=== PATIENT | female | born 1950 | race Two or more races ===

== ENCOUNTER → 2020-02-27 11:46 | Outpatient (BNVA) | payer MEDICARE, MEDICAID, SELFPAY | PROVIDERS: Visit Provider Nurse Practitioner Gerontology | DX: E11.65 Type 2 diabetes mellitus with hyperglycemia (principal); E11.22 Type 2 diabetes mellitus with diabetic chronic kidney disease; I12.9 Hypertensive chronic kidney disease with stage 1 through stage 4 chronic kidney disease, or unspecified chronic kidney disease; N18.30 Chronic kidney disease, stage 3 unspecified; Z79.4 Long term (current) use of insulin | CPT/HCPCS: 99213 ==

== ENCOUNTER → 2020-04-26 09:53 | Outpatient (BNVA) | payer MEDICARE, MEDICAID, SELFPAY | PROVIDERS: PCP Internal Medicine; Referring Provider Internal Medicine; Visit Provider Internal Medicine Gastroenterology | DX: Z13.89 Encounter for screening for other disorder (principal) | CPT/HCPCS: Q3014 ==

== ENCOUNTER → 2020-06-14 10:52 | Outpatient (BNVA) | payer OTHER, MEDICAID, SELFPAY | PROVIDERS: PCP Internal Medicine; Visit Provider Internal Medicine Gastroenterology | DX: Z76.89 Persons encountering health services in other specified circumstances (principal) | CPT/HCPCS: Q3014 ==

== ENCOUNTER → 2020-07-17 10:00 | Outpatient (BNVA) | payer OTHER, MEDICAID, SELFPAY | PROVIDERS: PCP Internal Medicine; Visit Provider Internal Medicine Gastroenterology ==

== ENCOUNTER → 2020-07-25 11:16 | Day surgery (SDC) | payer OTHER, MEDICAID, SELFPAY ==
[2020-07-25 11:45] VITALS: BMI 37.8
--- NOTE | 2020-07-25 12:05 | PC.NURSE ---
History obtained from patient with use of stand grinder- patient stated last dose of aspirin was yesterday which was thursday07/25/20 and last dose of Brillanta was thursday which would be 07/23/20. Questioned patient further about doctor instructions to hold ASA for 3 days prior and Brillanta 5 days prior, patient then stated I had both on thursday. investment manager Mary Jane Watters called and let the MD know. Per MD patient will need to be rescheduled due to medications not being held for the required time. 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
[2020-07-25 12:06] LABS: MANUAL DIFF FLAG NO
[2020-07-25 12:08] LABS: Glucose, Whole Blood 258 mg/dL (60-115)
[2020-07-25 12:09] LABS: Basophils Absolute Auto 0.1 X10*3/uL (0.0-0.2); Basophils Percent Auto 0.6 % (0-2); Eosinophils Absolute Auto 0.1 X10*3/uL (0.0-0.4); Eosinophils Percent Auto 1.6 % (0-4); Hematocrit 26.6 % (37-47); Hemoglobin 8.3 g/dl (12.0-16.0); Imm Gran Abs Auto 0.05 X10*3/uL (0.00-0.03); Imm Gran Pct Auto 0.6 % (0.0-0.4); Lymphocytes Absolute Auto 2.1 X10*3/uL (1.2-4.9); Lymphocytes Percent Auto 23.8 % (20-40); Mean Corpuscular HGB Conc 31.2 g/dl (31.0-35.0); Mean Corpuscular Hemoglobin 28.3 pg (27.0-33.0); Mean Corpuscular Volume 90.8 fL (80-98); Mean Platelet Volume 11.3 fL (9.4-12.3); Monocytes Absolute Auto 0.7 X10*3/uL (0.1-1.2); Monocytes Percent Auto 8.3 % (2-11); Neutrophils Absolute Auto 5.6 X10*3/uL (2.0-8.3); Neutrophils Percent Auto 65.1 % (45-73); Platelet Count 311 X10*3/uL (160-400); Red Blood Count 2.93 X10*6/uL (4.20-5.50); Red Cell Distribution Width 21.2 % (11.0-16.0); White Blood Count 8.7 X10*3/uL (4.8-10.8)
[2020-07-25 12:18] LABS: INTERNATIONAL NORM RATIO 1.2 (0.9-1.1); Prothrombin Time 13.9 SEC (10.8-13.0)
[2020-07-25 12:21] LABS: Partial Thromboplastin Time 37.8 SEC (24.1-38.0)
== END ==
PROVIDERS: Radiology Diagnostic Radiology; Visit Provider Radiology Diagnostic Radiology
DX: R79.89 Other specified abnormal findings of blood chemistry (principal); Z53.9 Procedure and treatment not carried out, unspecified reason; E11.22 Type 2 diabetes mellitus with diabetic chronic kidney disease; I12.9 Hypertensive chronic kidney disease with stage 1 through stage 4 chronic kidney disease, or unspecified chronic kidney disease; N18.9 Chronic kidney disease, unspecified; Z79.4 Long term (current) use of insulin; Z79.899 Other long term (current) drug therapy
CPT/HCPCS: 36415; 82947; 85025; 85610; 85730

== ENCOUNTER → 2020-11-16 07:33 | Outpatient (BNVA) | payer OTHER, MEDICAID, SELFPAY | PROVIDERS: PCP Internal Medicine; Visit Provider Nurse Practitioner Gerontology | DX: E11.65 Type 2 diabetes mellitus with hyperglycemia (principal); E11.22 Type 2 diabetes mellitus with diabetic chronic kidney disease; I12.9 Hypertensive chronic kidney disease with stage 1 through stage 4 chronic kidney disease, or unspecified chronic kidney disease; N18.30 Chronic kidney disease, stage 3 unspecified; E78.5 Hyperlipidemia, unspecified; E66.9 Obesity, unspecified; Z79.4 Long term (current) use of insulin | CPT/HCPCS: Q3014 ==

== ENCOUNTER 2021-02-05 12:02 | Emergency (ER) | payer OTHER, MEDICAID, SELFPAY ==
--- NOTE | ~2021-02-05 | XR_ITS ---
EXAMINATION: XR CHEST CLINICAL INFORMATION: Cough, HIV positive, rule out pneumonia. COMPARISON: Chest radiograph dated from 10/20/2018. TECHNIQUE: 2 views of the chest were obtained. FINDINGS: Unchanged appearance of the cardiomediastinal silhouette. There are decreased lung volumes with diffuse bronchovascular crowding and similar interstitial prominence. No focal airspace opacity, pleural effusions or pneumothorax. No acute osseous abnormalities. XR/XR chest 2V IMPRESSION: Interstitial prominence appears not significantly changed since 2019. No focal consolidation, pleural effusion or pneumothorax.
--- NOTE | ~2021-02-05 | XR_ITS ---
EXAMINATION: XR HIP, LEFT CLINICAL INFORMATION: Pain post fall COMPARISON: None TECHNIQUE: Two views of the left hip and one view of the pelvis. FINDINGS: Bone alignment is normal. No fracture or dislocation is seen. There is joint space narrowing at the hip joint. Bones of the pelvis are unremarkable. There are degenerative changes visualized lower lumbar spine. There is soft tissue arterial calcification. XR/XR hip LT w PEL1V IMPRESSION: No fracture or dislocation. Bilateral hip joint space narrowing.
[2021-02-05 12:11] VITALS: BP 131/87; BP 141/51; PULSE 62; PULSE 70; RESP 18; TEMP 37; O2SAT 100; O2SAT 97; BMI 24.6
--- NOTE | 2021-02-05 12:11 | ED_ITS ---
HPI - General Adult General Chief complaint: General Medical Stated complaint: HIGH BS FROM CLINIC, 500 @ THIS TIME PER EMS Time Seen by Provider: 02/05/21 12:06 Source: patient and EMS Mode of arrival: EMS Limitations: language barrier and other History of Present Illness HPI narrative: 70-year-old female with a history of memory issues, poorly controlled diabetes on insulin, CKD, hypertension, hyperlipidemia, GERD, obesity, cirrhosis who presents to the ER from PCP office with high blood sugar of greater than 500. Patient is a very poor historian and has aids and board filler helping to care for her throughout the day. She lives home alone. She only takes her medications when they are administered because she forgets and she only has aids for certain hours. It is unknown when she last took any insulin. She admits to eating a lot of sweets and drinking a lot of soda. She also reports a fall yesterday. She slipped and fell onto her left side. She reports some left hip pain today but is ambulatory. [place] and apparently left AMA per documentation. Her visiting nurse reports she burned her food when she tries to cook for herself because she forgets she is cooking and there was trash all over her apartment. MD complaint: Hyperglycemia Onset (ago): unknown Radiation: non-radiation Severity: moderate Pain Consistency: intermittent Relieving factors: none Exacerbating factors: none Associated symptoms: denies other symptoms Treatments prior to arrival: other (SC insulin) Related Data Home Medications Medication Instructions Recorded Confirmed albuterol sulfate 90 mcg/actuation 2 puff INHALATION Q6H PRN 02/27/20 02/05/21 aerosol inhaler (Ventolin HFA) amlodipine 2.5 mg tablet 2.5 mg PO DAILY 02/27/20 02/05/21 aspirin 81 mg tablet,delayed 81 mg PO DAILY 02/27/20 02/05/21 release (Adult Aspirin Regimen) cholecalciferol (vitamin D3) 50 2,000 unit PO DAILY cap 02/27/20 02/05/21 mcg (2,000 unit) capsule famotidine 20 mg tablet 20 mg PO DAILY 02/27/20 02/05/21 metoprolol tartrate 25 mg tablet 12.5 mg PO DAILY 02/27/20 02/05/21 ticagrelor 90 mg tablet (Brilinta) 90 mg PO BID 02/27/20 02/05/21 trazodone 50 mg tablet 25 mg PO BEDTIME PRN 02/27/20 02/05/21 cetirizine 10 mg capsule (All Day 10 mg PO BEDTIME cap 11/16/20 02/05/21 Allergy (cetirizine)) melatonin 5 mg capsule 5 mg PO BEDTIME PRN cap 11/16/20 02/05/21 bisacodyl 5 mg tablet,delayed 1 tab PO DAILY PRN 02/05/21 02/05/21 release calcium polycarbophil 625 mg 1 tab PO QAM 02/05/21 02/05/21 tablet (Fiber (calcium polycarbophil)) enalapril maleate 5 mg tablet 1 tab PO QPM 02/05/21 02/05/21 escitalopram oxalate 5 mg tablet 1 tab PO QAM 02/05/21 02/05/21 ferrous fumarate 324 mg (106 mg 1 tab PO QAM 02/05/21 02/05/21 iron) tablet (Ferrocite) fluticasone propionate 44 2 puff PO BID 02/05/21 02/05/21 mcg/actuation HFA aerosol inhaler (Flovent HFA) insulin glargine U-300 conc 300 30 unit SUBCUT DAILY 02/05/21 02/05/21 unit/mL (3 mL) subcutaneous pen (Toujeo Max U-300 SoloStar) rifaximin 550 mg tablet (Xifaxan) 1 tab PO BID 02/05/21 02/05/21 Previous Rx's Medication Instructions Recorded blood sugar diagnostic (OneTouch #150 ea 02/24/20 Ultra Blue Test Strip) flash glucose scanning reader #1 ea 11/16/20 (FreeStyle Fatmata 2 [place]) flash glucose sensor (FreeStyle #2 ea 11/16/20 Fatmata 2 Sensor) insulin lispro 100 unit/mL 14 - 20 unit SUBCUT TID 90 Days 11/16/20 subcutaneous pen (Humalog KwikPen #60 ml (U-100) Insulin) Allergies Allergy/AdvReac Type Severity Reaction Status Date / Time No Known Allergies Allergy Verified 11/16/20 07:39 [No Known Allergies*] Review of Systems Review of Systems: Constitutional: No Fever, No Chills ENT/Mouth: No sore throat, No Rhinorrhea, No Swallowing Difficulty Cardiovascular: No Chest Pain, No SOB, No Orthopnea, No Edema Respiratory: No Cough, No Sputum, No Wheezing, No dyspnea Gastrointestinal: No Nausea, No Vomiting, No Diarrhea, No abdominal Pain Genitourinary: No Dysuria, No Urinary Frequency, No Hematuria Musculoskeletal: + joint pain, + Myalgias Skin: No Skin Lesions, No rash Neuro: + Weakness, No Numbness, No Dizziness, No Headache Psych: No Anxiety/Panic, No Depression Heme/Lymph: No Bruising, No Lymphadenopathy Endocrine: No Polyuria, No Polydipsia PMF Past Medical History Medical History Constipated Depression Diabetes mellitus with hyperglycemia Essential hypertension Hyperlipidemia LDL goal <100 Hypertriglyceridemia Obesity (BMI 30-39.9) Pancreatitis Type 2 diabetes mellitus with chronic kidney disease Type 2 diabetes mellitus with hyperglycemia Vitamin D deficiency Surgical History History of appendectomy History of esophagogastroduodenoscopy (EGD) Hx of cholecystectomy Hx of colonoscopy Hx of heart bypass surgery Family History Family History Father No problems noted. 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 Oriented X2. No acute distress. Eyes: Pupils equal, round and reactive to light. ENT: Pharynx normal. Neck: Normal inspection. Neck supple. CVS: Normal heart rate and rhythm. Pulses normal. Respiratory: No respiratory distress. Breath sounds normal. Abdomen: Soft and nontender. +BS x4 Skin: Skin warm and dry. Normal skin color. Normal skin turgor. No rashes. Extremities: No lower extremity edema. Left lateral hip and femur tenderness, no deformity, no ecchymosis, normal ROM Neuro: Oriented X 2. No motor deficit. No sensory deficit. Course Course Course Narrative: 70-year-old female presenting with hyperglycemia and left hip pain status post fall yesterday. She offers no complaints at this time. Glucose for AMS was 500. 10 units of subcu insulin was given at the PCP office. She is not tachycardic, not tachypneic and is awake and alert. Doubt DKA. Will get basic lab workup. Additional subcu insulin and IV fluids have been ordered. Anticipate she will require additional services at home vs short-term rehab versus long-term care given her inability to care for herself. Reevaluation(s) Reevaluation #1: Patient not in DKA, no anion gap. Glucose is slowly improving, now down into the 200s. She has some mild pseudohyponatremia from her hyper glycemia. She also has underlying CKD which appears to be near its baseline. Her H&H is slightly lower than her baseline with a hemoglobin of 7.3 from 8.3 back in July of 2020. She denies any signs or symptoms of GI bleeding rectal exam reveals hard light brown stool in the rectal vault. This was noted to be heme-positive. This does not seem to be an active GI bleed. She has underlying CKD and cirrhosis with likely anemia of chronic disease. Will plan for PT and Case Management evaluation. She does not appear to be safe at home with her current level of care. Reevaluation #2: Physical therapy evaluated the patient is recommending [facility] short-term rehab. Case was discussed with the case resolution specialist who will evaluate the patient for placement. Physician observation started at 5:50pm. Patient placed in physician observation because patient is awaiting case management evaluation for short term rehab placement. At the time observation was started patient's vital signs were stable. Patient is alert and oriented to person and place. Neuro exam is non- focal. CV: RRR and lungs are clear. Will continue to monitor. Medical Decision Making Lab Data Result diagrams: 02/05/21 12:41 02/05/21 12:41 Labs: Lab Results 02/05/21 02/05/21 02/05/21 Range/Units 12:41 12:41 12:41 WBC 8.1 (4.8-10.8) X10*3/uL RBC 2.51 L (4.20-5.50) X10*6/uL Hgb 7.3 L (12.0-16.0) g/dl Hct 22.4 L (37-47) % MCV 89.2 (80-98) fL MCH 29.1 (27.0-33.0) pg MCHC 32.6 (31.0-35.0) g/dl RDW 14.3 (11.0-16.0) % Plt Count 203 D (160-400) X10*3/uL MPV 10.9 (9.4-12.3) fL Immature Gran % (Auto) 0.4 (0.0-0.4) % Neut % (Auto) 58.8 (45-73) % Lymph % (Auto) 30.0 (20-40) % [place] % (Auto) 8.2 (2-11) % Eos % (Auto) 2.1 (0-4) % Baso % (Auto) 0.5 (0-2) % Lymph # (Auto) 2.4 (1.2-4.9) X10*3/uL [place] # (Auto) 0.7 (0.1-1.2) X10*3/uL Eos # (Auto) 0.2 (0.0-0.4) X10*3/uL Baso # (Auto) 0.0 (0.0-0.2) X10*3/uL Abs Immat Gran (auto) 0.03 (0.00-0.03) X10*3/uL Absolute Neuts (auto) 4.8 (2.0-8.3) X10*3/uL Absolute Nucleated RBC 0.000 (0.0-0.012) X10*3/uL Nucleated RBC % (auto) 0.0 (0.0-0.2) /100WBC Sodium 131 L (135-145) mmol/L Potassium 4.5 (3.3-5.1) mmol/L Chloride 106 (96-108) mmol/L Carbon Dioxide 18 L (22-29) mmol/L Anion Gap 12 (12-20) BUN 42 H (9-16) mg/dL Creatinine 1.50 H (0.5-1.4) mg/dL Estim Creat Clear Calc 26.4 Estimated GFR 34 POC Glucose (60-115) mg/dL Random Glucose 418 H* (60-115) mg/dL Estimat Average Glucose mg/dL Hemoglobin A1c % % Calcium 8.3 L (8.4-10.2) mg/dL Magnesium 2.0 (1.6-2.6) mg/dL Total Bilirubin 0.4 (0.0-1.0) mg/dL Direct Bilirubin 0.3 (0.0-0.5) mg/dL AST 86 H (5-31) U/L ALT 53 H (0-31) U/L Alkaline Phosphatase 471 H (39-117) U/L Total Protein 6.3 L (6.5-8.0) g/dL Albumin 2.9 L (3.5-5.0) g/dL Stool Occult Blood (NEGATIVE) COVID-19 (LESLY) Negative (Negative) COVID-19 Clin Com See Note 02/05/21 02/05/21 02/05/21 Range/Units 12:41 14:19 14:30 WBC (4.8-10.8) X10*3/uL RBC (4.20-5.50) X10*6/uL Hgb (12.0-16.0) g/dl Hct (37-47) % MCV (80-98) fL MCH (27.0-33.0) pg MCHC (31.0-35.0) g/dl RDW (11.0-16.0) % Plt Count (160-400) X10*3/uL MPV (9.4-12.3) fL Immature Gran % (Auto) (0.0-0.4) % Neut % (Auto) (45-73) % Lymph % (Auto) (20-40) % [place] % (Auto) (2-11) % Eos % (Auto) (0-4) % Baso % (Auto) (0-2) % Lymph # (Auto) (1.2-4.9) X10*3/uL [place] # (Auto) (0.1-1.2) X10*3/uL Eos # (Auto) (0.0-0.4) X10*3/uL Baso # (Auto) (0.0-0.2) X10*3/uL Abs Immat Gran (auto) (0.00-0.03) X10*3/uL Absolute Neuts (auto) (2.0-8.3) X10*3/uL Absolute Nucleated RBC (0.0-0.012) X10*3/uL Nucleated RBC % (auto) (0.0-0.2) /100WBC Sodium (135-145) mmol/L Potassium (3.3-5.1) mmol/L Chloride (96-108) mmol/L Carbon Dioxide (22-29) mmol/L Anion Gap (12-20) BUN (9-16) mg/dL Creatinine (0.5-1.4) mg/dL Estim Creat Clear Calc Estimated GFR POC Glucose 261 H (60-115) mg/dL Random Glucose (60-115) mg/dL Estimat Average Glucose 189 mg/dL Hemoglobin A1c % 8.2 % Calcium (8.4-10.2) mg/dL Magnesium (1.6-2.6) mg/dL Total Bilirubin (0.0-1.0) mg/dL Direct Bilirubin (0.0-0.5) mg/dL AST (5-31) U/L ALT (0-31) U/L Alkaline Phosphatase (39-117) U/L Total Protein (6.5-8.0) g/dL Albumin (3.5-5.0) g/dL Stool Occult Blood POSITIVE (NEGATIVE) COVID-19 (LESLY) (Negative) COVID-19 Clin Com 02/05/21 Range/Units 15:00 WBC (4.8-10.8) X10*3/uL RBC (4.20-5.50) X10*6/uL Hgb (12.0-16.0) g/dl Hct (37-47) % MCV (80-98) fL MCH (27.0-33.0) pg MCHC (31.0-35.0) g/dl RDW (11.0-16.0) % Plt Count (160-400) X10*3/uL MPV (9.4-12.3) fL Immature Gran % (Auto) (0.0-0.4) % Neut % (Auto) (45-73) % Lymph % (Auto) (20-40) % [place] % (Auto) (2-11) % Eos % (Auto) (0-4) % Baso % (Auto) (0-2) % Lymph # (Auto) (1.2-4.9) X10*3/uL [place] # (Auto) (0.1-1.2) X10*3/uL Eos # (Auto) (0.0-0.4) X10*3/uL Baso # (Auto) (0.0-0.2) X10*3/uL Abs Immat Gran (auto) (0.00-0.03) X10*3/uL Absolute Neuts (auto) (2.0-8.3) X10*3/uL Absolute Nucleated RBC (0.0-0.012) X10*3/uL Nucleated RBC % (auto) (0.0-0.2) /100WBC Sodium (135-145) mmol/L Potassium (3.3-5.1) mmol/L Chloride (96-108) mmol/L Carbon Dioxide (22-29) mmol/L Anion Gap (12-20) BUN (9-16) mg/dL Creatinine (0.5-1.4) mg/dL Estim Creat Clear Calc Estimated GFR POC Glucose 263 H (60-115) mg/dL Random Glucose (60-115) mg/dL Estimat Average Glucose mg/dL Hemoglobin A1c % % Calcium (8.4-10.2) mg/dL Magnesium (1.6-2.6) mg/dL Total Bilirubin (0.0-1.0) mg/dL Direct Bilirubin (0.0-0.5) mg/dL AST (5-31) U/L ALT (0-31) U/L Alkaline Phosphatase (39-117) U/L Total Protein (6.5-8.0) g/dL Albumin (3.5-5.0) g/dL Stool Occult Blood (NEGATIVE) COVID-19 (LESLY) (Negative) COVID-19 Clin Com ECG Data Attestation: I personally reviewed and interpreted this ECG as follows: Prior ECG tracings: available for review Interpretation: Normal sinus rhythm, heart rate 69 beats per minute, IL interval normal 130 MS. QRS is normal. No ST segment elevations or depressions. Critical Care Time Critical Care Time Critical Care Time: Yes Total Critical Care Time: 42 Attestation: I have personally provided critical care time exclusive of time spent on separately billable procedures. Time includes review of lab data, radiology results, discussion with consultants, and monitoring for potential decompensation. Intervention performed as documented. Discharge Plan Discharge Clinical Impression: Diabetes mellitus with hyperglycemia Prescriptions: No Action (DME) Tradeshift Ultra Blue Test Strip Strip See Rx Instructions .ROUTE .MEDSUPPLY Qty: 150 RF: 6 enalapril maleate 5 mg tablet 1 tab PO QPM RF: 0 Flovent HFA 44 mcg/actuation HFA aerosol inhaler 2 puff PO BID RF: 0 calcium polycarbophil [Fiber (calcium polycarbophil)] 625 mg tablet 1 tab PO QAM RF: 0 bisacodyl 5 mg tablet,delayed release (DR/EC) 1 tab PO DAILY PRN (Reason: constipation) RF: 0 escitalopram oxalate 5 mg tablet 1 tab PO QAM RF: 0 ferrous fumarate [Ferrocite] 324 mg (106 mg iron) tablet 1 tab PO QAM RF: 0 Xifaxan 550 mg tablet 1 tab PO BID RF: 0 Toujeo Max U-300 SoloStar 300 unit/mL (3 mL) insulin pen 30 unit subcut DAILY RF: 0 insulin lispro [Humalog KwikPen Insulin] 100 unit/mL insulin pen 14 - 20 unit subcut TID 90 Days Qty: 60 RF: 1 (DME) FreeStyle Fatmata 2 [place] Misc See Rx Instructions .ROUTE .MEDSUPPLY Qty: 1 RF: 0 (DME) FreeStyle Fatmata 2 Sensor Kit See Rx Instructions .ROUTE .MEDSUPPLY Qty: 2 RF: 11 aspirin [Adult Aspirin Regimen] 81 mg tablet,delayed release (DR/EC) 81 mg PO DAILY RF: 0 Brilinta 90 mg tablet 90 mg PO BID RF: 0 metoprolol tartrate 25 mg tablet 12.5 mg PO DAILY RF: 0 amlodipine 2.5 mg tablet 2.5 mg PO DAILY RF: 0 albuterol sulfate [Ventolin HFA] 90 mcg/actuation HFA aerosol inhaler 2 puff inhalation Q6H PRN (Reason: Wheezing) RF: 0 famotidine 20 mg tablet 20 mg PO DAILY RF: 0 trazodone 50 mg tablet 25 mg PO BEDTIME PRN (Reason: Insomnia) RF: 0 cholecalciferol (vitamin D3) 50 mcg (2,000 unit) capsule 2,000 unit PO DAILY RF: 0 All Day Allergy (cetirizine) 10 mg capsule 10 mg PO BEDTIME RF: 0 melatonin 5 mg capsule 5 mg PO BEDTIME PRN (Reason: Insomnia) RF: 0
[2021-02-05] MEDS: 0.9 % Sodium Chloride 1,000 ML 999 ML IVCONT ×2 (12:19→14:25)
[2021-02-05 12:45] LABS: MANUAL DIFF FLAG NO
[2021-02-05 12:47] LABS: Basophils Percent Auto 0.5 % (0-2); Eosinophils Absolute Auto 0.2 X10*3/uL (0.0-0.4); Eosinophils Percent Auto 2.1 % (0-4); Hematocrit 22.4 % (37-47); Hemoglobin 7.3 g/dl (12.0-16.0); Imm Gran Abs Auto 0.03 X10*3/uL (0.00-0.03); Imm Gran Pct Auto 0.4 % (0.0-0.4); Lymphocytes Absolute Auto 2.4 X10*3/uL (1.2-4.9); Mean Corpuscular HGB Conc 32.6 g/dl (31.0-35.0); Mean Corpuscular Hemoglobin 29.1 pg (27.0-33.0); Mean Corpuscular Volume 89.2 fL (80-98); Mean Platelet Volume 10.9 fL (9.4-12.3); Monocytes Absolute Auto 0.7 X10*3/uL (0.1-1.2); Monocytes Percent Auto 8.2 % (2-11); Neutrophils Absolute Auto 4.8 X10*3/uL (2.0-8.3); Neutrophils Percent Auto 58.8 % (45-73); Platelet Count 203 X10*3/uL (160-400); Red Blood Count 2.51 X10*6/uL (4.20-5.50); Red Cell Distribution Width 14.3 % (11.0-16.0); White Blood Count 8.1 X10*3/uL (4.8-10.8)
[2021-02-05 13:02] LABS: COVID-19 Test Negative (Negative)
[2021-02-05 13:10] LABS: Alanine Aminotransferase 53 U/L (0-31); Albumin Level 2.9 g/dL (3.5-5.0); Alkaline Phosphatase 471 U/L (39-117); Anion Gap 12 (12-20); Aspartate Amino Transferase 86 U/L (5-31); Bilirubin Direct 0.3 mg/dL (0.0-0.5); Bilirubin Total 0.4 mg/dL (0.0-1.0); Blood Urea Nitrogen 42 mg/dL (9-16); Calcium 8.3 mg/dL (8.4-10.2); Carbon Dioxide 18 mmol/L (22-29); Chloride 106 mmol/L (96-108); Creatinine Clr Calc Pharmacy 26.4; Estimated Glomerular Filt Rate 34; Glucose Random 418 mg/dL (60-115); Potassium 4.5 mmol/L (3.3-5.1); Sodium 131 mmol/L (135-145); Total Protein 6.3 g/dL (6.5-8.0)
[2021-02-05 13:45] LABS: Estimated Average Glucose 189 mg/dL; Hemoglobin A1c % 8.2 %
--- NOTE | 2021-02-05 14:16 | ECG_ITS ---
Test Reason : GENERAL MEDICAL Blood Pressure : / mmHG Vent. Rate : 069 BPM Atrial Rate : 069 BPM P-R Int : 130 ms QRS Dur : 084 ms QT Int : 420 ms P-R-T Axes : 046 010 060 degrees QTc Int : 450 ms Normal sinus rhythm Normal ECG No previous ECGs available Referred By: Amanda Peters Electronically Signed By:KESHAV MORA
[2021-02-05 14:23] LABS: Glucose, Whole Blood 261 mg/dL (60-115)
[2021-02-05] MEDS: Insulin Lispro 100 UNIT/ML 3 ML VIAL 14 UNIT SUBCUT (14:24)
--- NOTE | 2021-02-05 14:25 | PC.NURSE ---
sherwin, pawan patton changed order for insulin to 10 units instead of 14 after poc was 260, 2nd ns bolus infusing
[2021-02-05 14:39] LABS: OBS Int Ctl Valid YES; OBS1 POSITIVE (NEGATIVE)
[2021-02-05 15:04] LABS: Glucose, Whole Blood 263 mg/dL (60-115)
[2021-02-05 15:52] VITALS: BP 141/51; PULSE 62; O2SAT 100
[2021-02-05 16:17] VITALS: PULSE 72; RESP 17; O2SAT 97
--- NOTE | 2021-02-05 17:28 | MHC.CM.ED ---
PER CONVERSATION WITH PHYSICAL THERAPY, PATIENT IS CONFUSED. P.T. IS RECOMMENDING REHAB. CASE MANAGEMENT TO FOLLOW UP WITH PATIENT AT APPROPRIATE TIME.
[2021-02-05 18:35] LABS: Glucose, Whole Blood 94 mg/dL (60-115)
--- NOTE | 2021-02-05 19:31 | MHC.CM.ED ---
CM met with patient with [employer], as pt is Yi Speaking. Pt A&Ox3. Pt has some memory issues. HCP not on file. HCP reviewed, completed and signed. HCP/daughter Sara Burch ([phone]). Copies given and uploaded into [employer] and [facility]. PCP is Rogelio Shepard per pt. Pt is fully vaccinated with J&J at [facility] per daughter. Per daughter, pt has forgotten to take her meds, buys candy and soda, and has left stove on. CM expressed concerns regarding pt living alone. Daughter states she has ENFORCEMENT SAFETY OFFICER 39 hours/week and VNA twice a day for medication management. [employer] provides ENFORCEMENT SAFETY OFFICER. Daughter unsure what company provides VNA services. Spoke with daughter regarding disconnecting stove and having meals that can be warmed in microwave. Daughter plans to have mother move in with her, but not until her lease is up so she can move to a new, larger apartment. Again stressed that pt may need more help to live at home safely after STR. PT recommends STR. Both pt and daughter agreeable. Referrals placed in [facility] per pt and daughter's request. Daughter requests that no referrals be made to [place]. Pt did speak with daughter on the telephone. CM will follow for d/c needs.
--- NOTE | 2021-02-05 20:40 | PC.NURSE ---
PT is sleeping in bed. Respirations even and unlabored, PT is in NAD. PT is case management.
[2021-02-05 22:39] VITALS: BP 164/59; PULSE 83
[2021-02-05 22:39] LABS: Glucose, Whole Blood 211 mg/dL (60-115)
[2021-02-05] MEDS: rifAXIMin 550 MG TABLET PO (22:39)
[2021-02-05] MEDS: Ticagrelor 90 MG TABLET PO (22:39)
[2021-02-05] MEDS: Loratadine 10 MG TABLET PO (22:40)
[2021-02-05 22:42] VITALS: BP 164/59; PULSE 81; RESP 18; O2SAT 99
--- NOTE | 2021-02-05 23:07 | PC.NURSE ---
PT requesting to speak with provider. PT is case management and plan is to go to short term rehab in the morning. This nurse explained the plan to PT with civil attorney, PT is agreeable to plan.
[2021-02-06] VITALS (9 sets, daily range): BP systolic 129–149; BP diastolic 52–70; PULSE 61–104; RESP 14–20; TEMP 36.7–37.2; O2SAT 95–100
[2021-02-06] MEDS: diphenhydrAMINE HCL 25 MG TABLET PO (01:27)
[2021-02-06] MEDS: Magnesium Hydrox/Alum Hydrox 30 ML ORAL.SUSP PO (01:27)
--- NOTE | 2021-02-06 04:03 | PC.NURSE ---
PT rang call tineo. Found to be incontinent in bed. Kami and michael changed. PT's skin clean, dry, and intact. PT is resting quietly in bed.
--- NOTE | 2021-02-06 06:36 | PC.NURSE ---
PT toileted with bed side commode. Urine appears yellow and cloudy.
[2021-02-06 06:42] LABS: Appearance Urine CLOUDY; Color Urine YELLOW; Glucose Urine UA 500 MG/DL (NEG); Leukocyte Esterase Urine 3+ (NEG); Nitrite Urine NEG (NEG); UACC Culture Trigger YES; Urine Blood 2+ (NEG); Urine Ketones NEG (NEG); Urine Protein 2+ MG/DL (NEG-TRACE)
[2021-02-06 06:54] LABS: Bacteria Urine 4+ /LPF; Squamous Epithelial Cell Urine 1+ /LPF; WBC Urine TNTC /HPF (0-4)
[2021-02-06 07:22] LABS: Glucose, Whole Blood 315 mg/dL (60-115)
[2021-02-06] MEDS: Insulin Lispro 100 UNIT/ML 3 ML VIAL SUBCUT ×3 (07:23→17:55)
--- NOTE | 2021-02-06 08:49 | MHC.CM.ED ---
Addendum entered by Dayana Segovia 02/06/21 09:46: Patient received Raúl and Raúl covid vaccine on 10/15. Original Note: Patient remains in ER. Clinical updates sent to facilities still following patient: [facility], [facility], [address], and [facility]. Continue to monitor for d/c needs.
[2021-02-06] MEDS: cefTRIAXone sodium 1 GM in 0.9 % Sodium Chloride 50 ML IV (09:26)
[2021-02-06] MEDS: Insulin Glargine,Hum.rec.anlog 100 UNIT/ML 10 ML VIAL 24 UNIT SUBCUT (10:10)
[2021-02-06] MEDS: Aspirin Enteric Coated 81 MG TABLET.DR PO (10:11)
[2021-02-06] MEDS: Ticagrelor 90 MG TABLET PO ×2 (10:11→22:35)
[2021-02-06] MEDS: Famotidine 20 MG TABLET PO (10:11)
[2021-02-06] MEDS: amLODIPine Besylate 2.5 MG TABLET PO (10:11)
[2021-02-06] MEDS: Escitalopram Oxalate 5 MG TABLET PO (10:11)
[2021-02-06] MEDS: Cholecalciferol (Vitamin D3) 25 MCG TABLET 50 MCG PO (10:11)
[2021-02-06] MEDS: Ferrous Sulfate 324 MG TABLET.DR PO (10:11)
[2021-02-06] MEDS: Metoprolol Tartrate 12.5 MG HALFTAB PO (10:12)
[2021-02-06 10:14] LABS: CDiff Gene PCR NEGATIVE (Negative)
[2021-02-06] MEDS: calcium polycarbophiL TABLET 1 TAB PO (10:35)
[2021-02-06] MEDS: rifAXIMin 550 MG TABLET PO ×2 (10:35→22:35)
[2021-02-06 12:21] LABS: Glucose, Whole Blood 287 mg/dL (60-115)
--- NOTE | 2021-02-06 13:40 | MHC.CM.ED ---
Addendum entered by Dayana Segovia 02/06/21 14:00: Met with patient and pediatrics physician. Hannah is not sure which facility to choose. Hannah agreeable to T/W reaching out to her daughter, Sara. Attempted to speak with patient's daughter, Sara via telehone at [phone]. Left voicemail requesting return telephone call. Original Note: [facility] and [facility] are the only facilities that are willing to offer a bed. Waiting for pediatrics physician so these options can be discussed. Continue to monitor for d/c needs.
--- NOTE | 2021-02-06 15:15 | MHC.CM.ED ---
Addendum entered by Dayana Segovia 02/06/21 15:46: Received telephone call from [facility]. Patient is active with their agency. They are aware patient will be going to short term rehab when insurance auth is obtained. Original Note: Received return telephone call from patient's daughter, Sara. Patient has been to [facility] in the past. Sara does not want patient to return there. Sara accepting bed at [facility]. Belkis Cadwell aware and will go for insurance auth. Continue to monitor for d/c needs.
[2021-02-06 17:46] LABS: Glucose, Whole Blood 229 mg/dL (60-115)
--- NOTE | 2021-02-06 19:17 | MHC.CM.ED ---
Pt aware that CM is waiting for insurance authorization for [facility]. Pt would like to go home. CM explained that pt has been falling and it is not safe for her to go home. Pt agreeable. Expect insurance authorization tomorrow. CM to follow for d/c needs.
--- NOTE | 2021-02-06 21:59 | PC.NURSE ---
Addendum entered by Erica Damon RN 02/06/21 22:00: pt waiting on insurance auth to go to facility. Original Note: pt irritable, reporting that she wants to speak with a vehicle maintenance supervisor tomorrow because she has been here since the and wants to go home.
[2021-02-06] MEDS: Loratadine 10 MG TABLET PO (22:35)
[2021-02-06] MEDS: Nystatin Powder 15 GM BOTTLE 1 APPL TOPICAL (22:36)
--- NOTE | 2021-02-06 22:38 | PC.NURSE ---
redness and moist to pt pannis. notified nystatin powder ordered. Bruising to L thigh/hip
--- NOTE | 2021-02-06 22:44 | MHC.CM.ED ---
Pt upset about not having pampers for herself. Needs to be cleaned up. Will speak with nurse.Wants to go home. CM spoke with daughter, who feels pt cannot go home and needs to go to rehab. Daughter/HCP Sara willing to speak with pt on the telephone. Pt is agreeable to staying in hospital with STR in am after insurance authorization, however pt not happy about decision. Pamper found. Lety care given by nurse. Pt spoke with daughter on the telephone. CM to follow for d/c needs.
[2021-02-06] MEDS: Acetaminophen 325 MG TABLET 975 MG PO (23:06)
[2021-02-07 02:39] VITALS: BP 128/52; PULSE 72; RESP 16; TEMP 37; O2SAT 99
[2021-02-07 06:04] VITALS: BP 120/55; PULSE 65; RESP 12; O2SAT 97
[2021-02-07 07:36] VITALS: BP 151/70; PULSE 77; RESP 16; TEMP 36.9; O2SAT 100
[2021-02-07 08:57] LABS: Glucose, Whole Blood 284 mg/dL (60-115)
[2021-02-07 09:29] VITALS: BP 151/70; PULSE 77
[2021-02-07] MEDS: Cholecalciferol (Vitamin D3) 25 MCG TABLET 50 MCG PO (09:29)
[2021-02-07] MEDS: Metoprolol Tartrate 12.5 MG HALFTAB PO (09:29)
[2021-02-07] MEDS: Ferrous Sulfate 324 MG TABLET.DR PO (09:29)
[2021-02-07] MEDS: amLODIPine Besylate 2.5 MG TABLET PO (09:29)
[2021-02-07] MEDS: Escitalopram Oxalate 5 MG TABLET PO (09:29)
[2021-02-07] MEDS: Aspirin Enteric Coated 81 MG TABLET.DR PO (09:29)
[2021-02-07] MEDS: Famotidine 20 MG TABLET PO (09:29)
[2021-02-07] MEDS: Ticagrelor 90 MG TABLET PO (09:29)
[2021-02-07] MEDS: rifAXIMin 550 MG TABLET PO (09:30)
[2021-02-07] MEDS: Insulin Lispro 100 UNIT/ML 3 ML VIAL SUBCUT (09:30)
[2021-02-07] MEDS: calcium polycarbophiL TABLET 1 TAB PO (09:30)
[2021-02-07] MEDS: Nystatin Powder 15 GM BOTTLE 1 APPL TOPICAL (09:30)
--- NOTE | 2021-02-07 10:05 | MHC.CM.ED ---
[facility] has obtained insurance auth. Action chair van booked for 11am. [facility] with chart. Patient, Carolina ABEL and Amanda CABRERA aware. Attempted to notify patient's daughter, Sara via telephone at [phone]. Left message providing D/c information. Continue to monitor for d/c needs.
== END 2021-02-07 10:57 | disposition skilled nursing facility (03) ==
PROVIDERS: Physician Assistant; Emergency Provider Emergency Medicine
DX: E11.65 Type 2 diabetes mellitus with hyperglycemia (principal); N39.0 Urinary tract infection, site not specified; M25.552 Pain in left hip; M25.551 Pain in right hip; R06.02 Shortness of breath; Z79.899 Other long term (current) drug therapy; Z79.4 Long term (current) use of insulin; Z20.822 Contact with and (suspected) exposure to COVID-19
CPT/HCPCS: 36415; 71046; 73502; 80048; 80076; 81001; 82272; 82947; 83036; 83735; 85025; 87086; 87088; 87186; 87493; 87635; 93005; 96361; 96365; 97161; 99285; J0696; Q0163

== ENCOUNTER → 2021-04-05 09:05 | Outpatient (BNVA) | payer OTHER, MEDICAID, SELFPAY | PROVIDERS: Visit Provider Nurse Practitioner Gerontology | DX: E11.65 Type 2 diabetes mellitus with hyperglycemia (principal); E11.22 Type 2 diabetes mellitus with diabetic chronic kidney disease; I12.9 Hypertensive chronic kidney disease with stage 1 through stage 4 chronic kidney disease, or unspecified chronic kidney disease; N18.30 Chronic kidney disease, stage 3 unspecified; E78.5 Hyperlipidemia, unspecified; E66.9 Obesity, unspecified; I95.9 Hypotension, unspecified; Z79.4 Long term (current) use of insulin | CPT/HCPCS: 82947; 99212 ==

== ENCOUNTER 2021-04-05 10:02 | Inpatient (IN) | payer OTHER, MEDICAID, SELFPAY ==
[2021-04-05] VITALS (13 sets, daily range): BP systolic 115–170; BP diastolic 45–80; PULSE 68–81; RESP 14–24; TEMP 36.4–36.9; O2SAT 100; BMI 10.6
--- NOTE | ~2021-04-05 | XR_ITS ---
EXAMINATION: XR CHEST CLINICAL INFORMATION: Dizziness and low blood pressure COMPARISON: Chest 02/06/2021 TECHNIQUE: Frontal view of the chest was obtained. FINDINGS: The lungs are well-expanded and clear. No acute pneumonic consolidation seen. Heart size is borderline normal. There is increased pulmonary vascularity without congestion. There is mild dorsal spine spondylosis. XR/XR chest 1V IMPRESSION: No acute cardiopulmonary process seen.
--- NOTE | ~2021-04-05 | CT_ITS ---
EXAMINATION: CT HEAD WITHOUT CONTRAST CLINICAL INFORMATION: Dizziness x2 days COMPARISON: None TECHNIQUE: Contiguous axial imaging was performed from the skull base to vertex without intravenous administration of contrast. This CT examination was performed using dose optimization techniques as appropriate, variously including the following: *Automated exposure control *Adjustment of mA and/or kV according to patient size (this includes techniques or standardized protocols for targeted exams where dose is matched to indication/reason for exam; i.e. extremities or head) *Use of iterative reconstruction technique DLP: 640 mGy-cm FINDINGS: There is a right cortical hypodensity suggestive of infarct likely subacute to old. Similar findings are seen in the left inferior occipital lobe. There is no mass effect or effacement of sulci. There is no acute intra-axial or extra-axial bleed, masses, collection or midline shift. The lateral ventricles are symmetrical in size but moderately enlarged. There is diffuse periventricular hypodensity in both cerebral hemispheres without mass effect. Bone windows reveal no calvarial abnormality. Bilateral paranasal sinuses and mastoid air cells are well-aerated. There is no scalp soft tissue abnormality. 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 There is no acute intracranial bleed or acute infarct seen. Age-related cerebral volume loss with chronic small vessel ischemic changes.
--- NOTE | 2021-04-05 13:42 | ECG_ITS ---
Test Reason : DIZZINESS/LOW BP Blood Pressure : / mmHG Vent. Rate : 068 BPM Atrial Rate : 068 BPM P-R Int : 134 ms QRS Dur : 086 ms QT Int : 430 ms P-R-T Axes : 049 020 063 degrees QTc Int : 457 ms Normal sinus rhythm Normal ECG No significant changes when compared with the previous EKG of 05 feb 2021 Referred By: Tabitha Marie Electronically Signed By:ABI LUCERO
[2021-04-05 15:07] LABS: MANUAL DIFF FLAG NO
[2021-04-05 15:11] LABS: Basophils Percent Auto 0.5 % (0-2); Eosinophils Absolute Auto 0.3 X10*3/uL (0.0-0.4); Eosinophils Percent Auto 3.8 % (0-4); Hematocrit 21.5 % (37.0-47.0); Imm Gran Abs Auto 0.02 X10*3/uL (0.00-0.03); Imm Gran Pct Auto 0.3 % (0.0-0.4); Lymphocytes Absolute Auto 2.3 X10*3/uL (1.2-4.9); Lymphocytes Percent Auto 32.1 % (20-40); Mean Corpuscular HGB Conc 31.2 g/dl (31.0-35.0); Mean Corpuscular Hemoglobin 27.6 pg (27.0-33.0); Mean Corpuscular Volume 88.5 fL (80.0-98.0); Mean Platelet Volume 10.9 fL (9.4-12.3); Monocytes Absolute Auto 0.6 X10*3/uL (0.1-1.2); Monocytes Percent Auto 8.4 % (2-11); Neutrophils Percent Auto 54.9 % (45-73); Platelet Count 274 X10*3/uL (160-400); Red Blood Count 2.43 X10*6/uL (4.20-5.50); Red Cell Distribution Width 16.6 % (11.0-16.0); White Blood Count 7.3 X10*3/uL (4.8-10.8)
[2021-04-05 15:14] LABS: Influenza A PCR NEGATIVE (Negative); Influenza B PCR NEGATIVE (Negative); Resp Syncy Virus RNA Qual PCR NEGATIVE (Negative); SARS COV2 PCR INHOUSE NEGATIVE (Negative)
[2021-04-05 15:19] LABS: INTERNATIONAL NORM RATIO 1.1 (0.9-1.1); Prothrombin Time 12.3 SEC (9.9-13.0)
[2021-04-05 15:20] LABS: Hemoglobin 6.7 g/dl (12.0-16.0)
[2021-04-05 15:23] LABS: Alanine Aminotransferase 55 U/L (0-31); Albumin Level 3.2 g/dL (3.5-5.0); Alkaline Phosphatase 435 U/L (39-117); Anion Gap 11 (12-20); Aspartate Amino Transferase 89 U/L (5-31); Bilirubin Total 0.5 mg/dL (0.0-1.0); Blood Urea Nitrogen 39 mg/dL (9-16); Calcium 8.4 mg/dL (8.4-10.2); Carbon Dioxide 20 mmol/L (22-29); Chloride 109 mmol/L (96-108); Estimated Glomerular Filt Rate 35; Glucose Random 180 mg/dL (60-115); Magnesium 2.1 mg/dL (1.6-2.6); Potassium 4.5 mmol/L (3.3-5.1); Sodium 135 mmol/L (135-145); Total Protein 7.1 g/dL (6.5-8.0)
[2021-04-05 15:54] LABS: Appearance Urine CLEAR; Color Urine YELLOW; Glucose Urine UA 100 MG/DL (NEG); Leukocyte Esterase Urine NEG (NEG); Nitrite Urine NEG (NEG); PH 5.5 (5.0-8.0); UACC Culture Trigger NO; Urine Blood TRACE (NEG); Urine Ketones NEG (NEG); Urine Protein 1+ MG/DL (NEG-TRACE)
[2021-04-05 16:20] LABS: RBC Urine 0-2 /HPF (0); WBC Urine 0 /HPF (0-4)
[2021-04-05 16:21] LABS: Bacteria Urine 1+ /LPF; Squamous Epithelial Cell Urine 1+ /LPF
--- NOTE | 2021-04-05 16:39 | PC.NURSE ---
PT TOUGH STICK, DR CHRISTIANSON TO LOOK FOR IV WITH US. PT ON 2 LITER O2 NC, SAT 98%, TALKING ON CELL PHONE.
--- NOTE | 2021-04-05 16:42 | PC.NURSE ---
CONSENT FOR BLOOD TRANSFUSION OBTAINED AND SIGNED,
[2021-04-05 16:57] LABS: OBS Int Ctl Valid YES; OBS1 POSITIVE (NEGATIVE)
--- NOTE | 2021-04-05 17:47 | ED.DIZZY ---
HPI - Dizziness General Chief Complaint: General Medical Stated Complaint: low bp Time Seen by Provider: 04/05/21 13:39 Source: patient Mode of arrival: ambulatory Limitations: language barrier ( Latvian-speaking and poor historian) History of Present Illness HPI Narrative: 70-year-old female with past medical history of memory issues, poorly controlled diabetes on insulin, CKD, hypertension, hyperlipidemia, GERD, obesity, cirrhosis and anemia presenting to the ED from her PCP's office with complaints of low blood pressure with associated dizziness, feeling off balance like she is going to fall over with associated shortness of breath/dyspnea on exertion for the past 2 days worse today. She was seen at her primary care provider's office today and was sent here due to the low blood pressure and the patient's symptoms. Patient lives alone at home. She has a HAND CROCHETER that comes daily. Patient denies being on any blood thinners other than aspirin. She denies any headaches, changes in vision, nausea / vomiting, chest pain, orthopnea, sore throat, cough, paresthesias, nausea/ vomiting /diarrhea, abdominal pain, back pain, lower extremity edema or calf tenderness, rashes, recent falls or any other symptoms complaints or concerns at this time. MD elicited complaint: dizziness and disequilibrium Pertinent past history: anemia Onset (ago): day(s) ( since yesterday morning) Timing: gradual onset and constant Severity: moderate Description: off-balance Context: change in body position and exertion History of similar symptoms: No Exacerbating factors: movement/ambulation, change in body position, exertion and standing Relieving factors: nothing Associated symptoms: shortness of breath Related Data Home Medications Medication Instructions Recorded Confirmed albuterol sulfate 90 mcg/actuation 2 puff INHALATION Q6H PRN 02/27/20 04/05/21 aerosol inhaler (Ventolin HFA) amlodipine 2.5 mg tablet 2.5 mg PO DAILY 02/27/20 04/05/21 aspirin 81 mg tablet,delayed 81 mg PO DAILY 02/27/20 04/05/21 release (Adult Aspirin Regimen) cholecalciferol (vitamin D3) 50 2,000 unit PO DAILY cap 02/27/20 04/05/21 mcg (2,000 unit) capsule famotidine 20 mg tablet 20 mg PO DAILY 02/27/20 04/05/21 metoprolol tartrate 25 mg tablet 12.5 mg PO DAILY 02/27/20 04/05/21 ticagrelor 90 mg tablet (Brilinta) 90 mg PO BID 02/27/20 04/05/21 trazodone 50 mg tablet 25 mg PO BEDTIME PRN 02/27/20 04/05/21 cetirizine 10 mg capsule (All Day 10 mg PO BEDTIME cap 11/16/20 04/05/21 Allergy (cetirizine)) melatonin 5 mg capsule 5 mg PO BEDTIME PRN cap 11/16/20 04/05/21 bisacodyl 5 mg tablet,delayed 1 tab PO DAILY PRN 02/05/21 04/05/21 release calcium polycarbophil 625 mg 1 tab PO QAM 02/05/21 04/05/21 tablet (Fiber (calcium polycarbophil)) enalapril maleate 5 mg tablet 1 tab PO QPM 02/05/21 04/05/21 escitalopram oxalate 5 mg tablet 1 tab PO QAM 02/05/21 04/05/21 ferrous fumarate 324 mg (106 mg 1 tab PO QAM 02/05/21 04/05/21 iron) tablet (Ferrocite) fluticasone propionate 44 2 puff PO BID 02/05/21 04/05/21 mcg/actuation HFA aerosol inhaler (Flovent HFA) insulin glargine U-300 conc 300 30 unit SUBCUT DAILY 02/05/21 04/05/21 unit/mL (3 mL) subcutaneous pen (Toujeo Max U-300 SoloStar) rifaximin 550 mg tablet (Xifaxan) 1 tab PO BID 02/05/21 04/05/21 Previous Rx's Medication Instructions Recorded blood sugar diagnostic (OneTouch #150 ea 02/24/20 Ultra Blue Test Strip) flash glucose scanning reader #1 ea 11/16/20 (FreeStyle Fatmata 2 [place]) flash glucose sensor (FreeStyle #2 ea 11/16/20 Fatmata 2 Sensor) insulin lispro 100 unit/mL 14 - 20 unit (0.14 - 0.2 mL) 11/16/20 subcutaneous pen (Humalog KwikPen SUBCUT TID 90 Days #60 ml (U-100) Insulin) cefuroxime axetil 250 mg tablet 250 mg PO BID 7 Days #14 tab 02/06/21 Allergies Allergy/AdvReac Type Severity Reaction Status Date / Time No Known Allergies Allergy Verified 04/05/21 09:24 [No Known Allergies*] Review of Systems Review of Systems: Constitutional : No Fever, No Chills, No Night Sweats, No Fatigue, No Malaise ENT/Mouth : No Ear Pain, No Nasal Congestion, No Sinus Pain, No sore throat, No Rhinorrhea Eyes: No Eye Pain, No Swelling, No Redness, No Foreign Body, No Discharge, No Vision Changes Cardiovascular : + SOB/TYLER, No Chest Pain, No Orthopnea, No Palpitations Respiratory : No Cough, No Sputum, No Wheezing, No Dyspnea Gastrointestinal : No Nausea, No Vomiting, No Diarrhea, No Constipation, No abdominal Pain, No Hematochezia, No Melena Genitourinary : No Dysuria, No Urinary Frequency, No Urinary Incontinence, No Urgency, No Flank Pain Musculoskeletal : No joint pain, No Myalgias Skin : No lacerations Neuro : + Dizziness, No Focal weakness, no general weakness, No Numbness, No Paresthesias, No Loss of Consciousness, No Headache Yes all other systems are reviewed and are negative [facility] Past Medical History Attestation statement: The following information was validated with the patient. Medical History Constipated Depression Diabetes mellitus with hyperglycemia Essential hypertension Hyperlipidemia LDL goal <100 Hypertriglyceridemia Obesity (BMI 30-39.9) Pancreatitis Type 2 diabetes mellitus with chronic kidney disease Type 2 diabetes mellitus with hyperglycemia Vitamin D deficiency Surgical History History of appendectomy History of esophagogastroduodenoscopy (EGD) Hx of cholecystectomy Hx of colonoscopy Hx of heart bypass surgery Family History Family History Father No problems noted. Mother Diabetes mellitus CVD (cardiovascular disease) Sister Cancer Son Diabetes mellitus Social History Social History Household Members: None Housing Other:: HAND CROCHETER services Alcohol intake: never Patient Tobacco Use Status: Never used Tobacco Advance Directives: Yes Advance Directives on File: Yes Advance Directives Date on File: 02/06/21 Current occupational status: disabled Physical Exam Vital Signs: Vital Signs: Last Vital Signs Temp 98.2 F 04/05/21 18:47 Pulse 68 04/05/21 18:47 Resp 20 04/05/21 18:47 BP 138/51 L 04/05/21 18:47 Pulse Ox 100 04/05/21 16:50 BMI result Body Mass Index 10.6 Vital signs have been reviewed as normal and appeared to be correct. Blood pressure low at 124/45. Heart rate normal. Respiration rate normal. Temperature normal. Oxygen saturation normal. Appearance: Alert. Oriented X3. No acute distress. Head: Normal external exam. Normocephalic. Atraumatic. Able to rotate head bilaterally. Eyes: PERRLA. EOMI. No nystagmus noted. Conjunctiva and sclera normal. Eyelids normal. Corneal reflex normal. ENT: EAC normal. TM's Normal. Hearing normal. Pharynx normal. Uvula midline. tongue midline. Moist mucous membranes. No trismus noted. No drooling noted. No muffled voice noted. No nystagmus noted. Neck: Normal inspection. Neck supple. FROM. No adenopathy. Trachea midline. Thyroid Normal. No meningeal signs. No neck mass noted. CVS: Normal heart rate and rhythm. Heart sound normal. No murmurs noted. Pulses normal throughout. Respiratory: No respiratory distress. Painless inspiration. Breath sounds normal. No wheezes/rales/rhonchi noted. Chest nontender. No accessory muscle usage noted or decreased air movement noted. Abdomen: Soft and nontender. Bowel sounds normal in all 4 quadrants. No distention noted. No organomegaly noted. No visible injury noted. Back: No CVA tenderness. Full range of motion noted. Skin: Skin warm and dry. Normal skin color. Normal skin turgor. No rashes/lesions/lacerations noted. Extremities: patient with +2 lower extremity pitting edema. No calf tenderness is noted. Extremities exhibit normal range of motion. Extremities nontender. Able to shrug shoulders bilaterally and keep up against resistance. Neuro: Oriented X 3. No motor deficit. No sensory deficit. Reflexes normal. Moving all extremities. No focal motor deficits. Cranial nerves II-XI intact bilaterally. Facial strength normal. Normal cognition. Speech normal. Gait normal with her walker. Strength 5/5 throughout. No pronator drift. No tremor noted. No fasciculations noted. No rigidity noted. Muscle tone normal throughout. No asterixis noted. [id number] test normal. Heel to weiss test normal. Tandem gait normal. Does not sway with eyes open. Romberg test negative. Rapid alternating movement upper extremity normal. Rapid alternating movement lower extremity normal. Hand drop from overhead Misses face. NIHSS score 0. Course Course Course Narrative: 13:40pm - 70-year-old female with past medical history of memory issues, poorly controlled diabetes on insulin, CKD, hypertension, hyperlipidemia, GERD, obesity, cirrhosis and anemia presenting to the ED from her PCP's office with complaints of low blood pressure with associated dizziness, feeling off balance like she is going to fall over with associated shortness of breath/dyspnea on exertion for the past 2 days worse today. She was seen at her primary care provider's office today and was sent here due to the low blood pressure and the patient's symptoms. Patient lives alone at home. She has a HAND CROCHETER that comes daily. - On exam patient is alert and oriented x3. Non any acute distress. No focal neuro deficit noted. She has non disabling symptoms and her symptoms started yesterday morning therefore she is not a tPA candidate. Lungs are clear to auscultation. CV RRR. Abdomen is soft and nontender. Patient does have +2 lower extremity pitting edema and no calf tenderness is noted. Plan: labs, chest x-ray, EKG, orthostatic vitals, CT scan of brain without contrast and re-evaluate. Reevaluation(s) Reevaluation #1: - Labs obtained and patient with a worsening anemia with an H&H of 6.7/21.5. Chloride 109. Carbon dioxide 20. Anion gap 11. BUN/ creatinine 39/1.47 which is chronic and similar compared to prior. Random glucose 180. AST 89. ALT 55. Alkaline phosphate 435. Albumin 3.2. Troponin 8.0. Otherwise all other labs are within normal limits. UA revealed +1 protein and 100 glucose no evidence of UTI. Patient is positive for stool occult. - EKG is normal sinus rhythm no acute ischemic changes are noted similar compared to prior. CT scan of brain revealed chronic infarcts no acute infarcts. Chest x-ray within normal limits no acute processes are noted. - Therefore at this time patient is receiving 2 packs of red blood cells and plan to admit for dizziness /shortness of breath due to anemia requiring blood transfusion. Patient understands agrees with this plan. - I messaged Dr. Oneal although he is leaving at 19:00 in approximately 15 minutes therefore he reported that the hospitalist that is oncoming at 19:00 will admit the patient. Patient is receiving blood transfusion through left EJ that Dr. Juares placed. Time: 16:25 MDM - Dizziness Medical Records Attestation: I reviewed the patient's medical records. Lab Data Attestation: I reviewed the patient's lab results. Result diagrams: 04/05/21 15:02 04/05/21 15:02 Labs: Lab Results 04/05/21 04/05/21 04/05/21 Range/Units 14:11 15:02 15:02 WBC 7.3 (4.8-10.8) X10*3/uL RBC 2.43 L (4.20-5.50) X10*6/uL Hgb 6.7 L* (12.0-16.0) g/dl Hct 21.5 L (37.0-47.0) % MCV 88.5 (80.0-98.0) fL MCH 27.6 (27.0-33.0) pg MCHC 31.2 (31.0-35.0) g/dl RDW 16.6 H (11.0-16.0) % Plt Count 274 (160-400) X10*3/uL MPV 10.9 (9.4-12.3) fL Immature Gran % (Auto) 0.3 (0.0-0.4) % Neut % (Auto) 54.9 (45-73) % Lymph % (Auto) 32.1 (20-40) % [place] % (Auto) 8.4 (2-11) % Eos % (Auto) 3.8 (0-4) % Baso % (Auto) 0.5 (0-2) % Lymph # (Auto) 2.3 (1.2-4.9) X10*3/uL [place] # (Auto) 0.6 (0.1-1.2) X10*3/uL Eos # (Auto) 0.3 (0.0-0.4) X10*3/uL Baso # (Auto) 0.0 (0.0-0.2) X10*3/uL Abs Immat Gran (auto) 0.02 (0.00-0.03) X10*3/uL Absolute Neuts (auto) 4.0 (2.0-8.3) x10*3/uL Absolute Nucleated RBC 0.000 (0.0-0.012) X10*3/uL Nucleated RBC % (auto) 0.0 (0.0-0.2) /100WBC PT 12.3 (9.9-13.0) SEC INR 1.1 (0.9-1.1) Sodium (135-145) mmol/L Potassium (3.3-5.1) mmol/L Chloride (96-108) mmol/L Carbon Dioxide (22-29) mmol/L Anion Gap (12-20) BUN (9-16) mg/dL Creatinine (0.5-1.4) mg/dL Estim Creat Clear Calc Estimated GFR Random Glucose (60-115) mg/dL Calcium (8.4-10.2) mg/dL Magnesium (1.6-2.6) mg/dL Total Bilirubin (0.0-1.0) mg/dL AST (5-31) U/L ALT (0-31) U/L Alkaline Phosphatase (39-117) U/L Troponin I High Sens (<3.5-17.0) ng/L Total Protein (6.5-8.0) g/dL Albumin (3.5-5.0) g/dL Urine Color Urine Appearance Urine pH (5.0-8.0) Ur Specific [place] (1.005-1.025) Urine Protein (NEG-TRACE) MG/DL Urine Glucose (UA) (NEG) MG/DL Urine Ketones (NEG) MG/DL Urine Blood (NEG) Urine Nitrite (NEG) Ur Leukocyte Esterase (NEG) Urine RBC (0) /HPF Urine WBC (0-4) /HPF Ur Squamous Epith Cells /LPF Urine Bacteria /LPF Stool Occult Blood (NEGATIVE) Influenza Type A (PCR) NEGATIVE (Negative) Influenza Type B (PCR) NEGATIVE (Negative) RSV RNA Qual (PCR) NEGATIVE (Negative) SARS-CoV-2 RNA (RT-PCR) NEGATIVE (Negative) Blood Type Antibody Screen Crossmatch 04/05/21 04/05/21 04/05/21 Range/Units 15:02 15:02 15:36 WBC (4.8-10.8) X10*3/uL RBC (4.20-5.50) X10*6/uL Hgb (12.0-16.0) g/dl Hct (37.0-47.0) % MCV (80.0-98.0) fL MCH (27.0-33.0) pg MCHC (31.0-35.0) g/dl RDW (11.0-16.0) % Plt Count (160-400) X10*3/uL MPV (9.4-12.3) fL Immature Gran % (Auto) (0.0-0.4) % Neut % (Auto) (45-73) % Lymph % (Auto) (20-40) % [place] % (Auto) (2-11) % Eos % (Auto) (0-4) % Baso % (Auto) (0-2) % Lymph # (Auto) (1.2-4.9) X10*3/uL [place] # (Auto) (0.1-1.2) X10*3/uL Eos # (Auto) (0.0-0.4) X10*3/uL Baso # (Auto) (0.0-0.2) X10*3/uL Abs Immat Gran (auto) (0.00-0.03) X10*3/uL Absolute Neuts (auto) (2.0-8.3) x10*3/uL Absolute Nucleated RBC (0.0-0.012) X10*3/uL Nucleated RBC % (auto) (0.0-0.2) /100WBC PT (9.9-13.0) SEC INR (0.9-1.1) Sodium 135 (135-145) mmol/L Potassium 4.5 (3.3-5.1) mmol/L Chloride 109 H (96-108) mmol/L Carbon Dioxide 20 L (22-29) mmol/L Anion Gap 11 L (12-20) BUN 39 H (9-16) mg/dL Creatinine 1.47 H (0.5-1.4) mg/dL Estim Creat Clear Calc 45.0 Estimated GFR 35 Random Glucose 180 H (60-115) mg/dL Calcium 8.4 (8.4-10.2) mg/dL Magnesium 2.1 (1.6-2.6) mg/dL Total Bilirubin 0.5 (0.0-1.0) mg/dL AST 89 H (5-31) U/L ALT 55 H (0-31) U/L Alkaline Phosphatase 435 H (39-117) U/L Troponin I High Sens 8.0 (<3.5-17.0) ng/L Total Protein 7.1 (6.5-8.0) g/dL Albumin 3.2 L (3.5-5.0) g/dL Urine Color YELLOW Urine Appearance CLEAR Urine pH 5.5 (5.0-8.0) Ur Specific [place] 1.020 (1.005-1.025) Urine Protein 1+ H (NEG-TRACE) MG/DL Urine Glucose (UA) 100 H (NEG) MG/DL Urine Ketones NEG (NEG) MG/DL Urine Blood TRACE (NEG) Urine Nitrite NEG (NEG) Ur Leukocyte Esterase NEG (NEG) Urine RBC 0-2 (0) /HPF Urine WBC 0 (0-4) /HPF Ur Squamous Epith Cells 1+ /LPF Urine Bacteria 1+ /LPF Stool Occult Blood (NEGATIVE) Influenza Type A (PCR) (Negative) Influenza Type B (PCR) (Negative) RSV RNA Qual (PCR) (Negative) SARS-CoV-2 RNA (RT-PCR) (Negative) Blood Type Antibody Screen Crossmatch 04/05/21 04/05/21 Range/Units 16:24 16:51 WBC (4.8-10.8) X10*3/uL RBC (4.20-5.50) X10*6/uL Hgb (12.0-16.0) g/dl Hct (37.0-47.0) % MCV (80.0-98.0) fL MCH (27.0-33.0) pg MCHC (31.0-35.0) g/dl RDW (11.0-16.0) % Plt Count (160-400) X10*3/uL MPV (9.4-12.3) fL Immature Gran % (Auto) (0.0-0.4) % Neut % (Auto) (45-73) % Lymph % (Auto) (20-40) % [place] % (Auto) (2-11) % Eos % (Auto) (0-4) % Baso % (Auto) (0-2) % Lymph # (Auto) (1.2-4.9) X10*3/uL [place] # (Auto) (0.1-1.2) X10*3/uL Eos # (Auto) (0.0-0.4) X10*3/uL Baso # (Auto) (0.0-0.2) X10*3/uL Abs Immat Gran (auto) (0.00-0.03) X10*3/uL Absolute Neuts (auto) (2.0-8.3) x10*3/uL Absolute Nucleated RBC (0.0-0.012) X10*3/uL Nucleated RBC % (auto) (0.0-0.2) /100WBC PT (9.9-13.0) SEC INR (0.9-1.1) Sodium (135-145) mmol/L Potassium (3.3-5.1) mmol/L Chloride (96-108) mmol/L Carbon Dioxide (22-29) mmol/L Anion Gap (12-20) BUN (9-16) mg/dL Creatinine (0.5-1.4) mg/dL Estim Creat Clear Calc Estimated GFR Random Glucose (60-115) mg/dL Calcium (8.4-10.2) mg/dL Magnesium (1.6-2.6) mg/dL Total Bilirubin (0.0-1.0) mg/dL AST (5-31) U/L ALT (0-31) U/L Alkaline Phosphatase (39-117) U/L Troponin I High Sens (<3.5-17.0) ng/L Total Protein (6.5-8.0) g/dL Albumin (3.5-5.0) g/dL Urine Color Urine Appearance Urine pH (5.0-8.0) Ur Specific [place] (1.005-1.025) Urine Protein (NEG-TRACE) MG/DL Urine Glucose (UA) (NEG) MG/DL Urine Ketones (NEG) MG/DL Urine Blood (NEG) Urine Nitrite (NEG) Ur Leukocyte Esterase (NEG) Urine RBC (0) /HPF Urine WBC (0-4) /HPF Ur Squamous Epith Cells /LPF Urine Bacteria /LPF Stool Occult Blood POSITIVE (NEGATIVE) Influenza Type A (PCR) (Negative) Influenza Type B (PCR) (Negative) RSV RNA Qual (PCR) (Negative) SARS-CoV-2 RNA (RT-PCR) (Negative) Blood Type A Positive Antibody Screen NEGATIVE Crossmatch See Detail Imaging Data CT scan of brain without contrast: Attestation: I personally reviewed and interpreted this imaging study as follows: Radiologist's impression: FINDINGS: There is a right cortical hypodensity suggestive of infarct likely subacute to old. Similar findings are seen in the left inferior occipital lobe. There is no mass effect or effacement of sulci. There is no acute intra-axial or extra-axial bleed, masses, collection or midline shift. The lateral ventricles are symmetrical in size but moderately enlarged. There is diffuse periventricular hypodensity in both cerebral hemispheres without mass effect. Bone windows reveal no calvarial abnormality. Bilateral paranasal sinuses and mastoid air cells are well-aerated. There is no scalp soft tissue abnormality. 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 ? There is no acute intracranial bleed or acute infarct seen. ? Age-related cerebral volume loss with chronic small vessel ischemic changes. Chest x-ray: Attestation: I personally reviewed and interpreted this imaging study as follows: Radiologist's impression: FINDINGS: The lungs are well-expanded and clear. No acute pneumonic consolidation seen. Heart size is borderline normal. There is increased pulmonary vascularity without congestion. There is mild dorsal spine spondylosis. XR/XR chest 1V IMPRESSION: No acute cardiopulmonary process seen. ECG Data Attestation: I personally reviewed and interpreted this ECG as follows: ECG interpretation date: 04/05/21 ECG interpretation time: 13:49 Prior ECG tracings: available for review Interpretation: normal sinus rhythm with a ventricular rate of 68 with a normal ND interval normal QRS duration normal QT/QTC interval. No acute ischemic changes are noted. Similar when compared to prior EKG 02/05/2021. Critical Care Time Critical Care Time Critical Care Time: Yes Total Critical Care Time: 60 Attestation: I personally attest to this time spent taking care of the patient Discharge Plan Discharge Clinical Impression: Anemia, Fecal occult blood test positive, Dizziness, SOB (shortness of breath) Patient Disposition: Admitted As Inpatient
--- NOTE | 2021-04-05 18:09 | PC.NURSE ---
IV to R EJ not running. MD at bedside, IV established to LAC, 20 ga, infusing easily. Pt noted to be soiled with urine, provided with yvette care, assisted out of personal clothing, VSS. Plan for admission and blood transfusion. Awaiting blood, continue to monitor.
--- NOTE | 2021-04-05 18:12 | PC.NURSE ---
Per MD, to hold IVF order.
--- NOTE | 2021-04-05 18:36 | PC.NURSE ---
First unit infusing @ 183.
--- NOTE | 2021-04-05 19:39 | PC.NURSE ---
Phleb called for labs.
--- NOTE | 2021-04-05 19:58 | PHA.MEDREC ---
Pharmacy Consult ? Medication Reconciliation Pharmacy has completed the medication reconciliation. Spoke with patient in ED and Patients daughter Sara on phone. Patients daughter will go to her moms house in am on 04/06/21 and call back pharmacy to confirm home meds. Pt was discharged from a rehab facility on 03/13/21 and medications may have changed.
--- NOTE | 2021-04-05 20:00 | PC.NURSE ---
First unit complete, VAA. Plan for second.
--- NOTE | 2021-04-05 20:04 | P.HPHOSP_ITS ---
History of Present Illness Date of Service: 04/05/21 Chief Complaint: dizziness, difficulty with her balance this is a 70-year-old female with past medical history of diabetes, hypertension, GERD, hyperlipidemia, history of pancreatitis, presents to the hospital with complaints of dizziness, loss of balance. She reports her symptoms started yesterday, she has difficulty with her balance, no headache, no change in vision chest pain, no palpitations, she has shortness of breath on exertion, has abdominal pain in the epigastric region, nonradiating, no nausea or vomiting, she is constipated. Patient reports that she uses ibuprofen twice a day for the past 5 months for general aches and pain. She denies having any black tarry stools, no bright blood per rectum. She otherwise denies any urinary symptoms and no lower extremity edema. No numbness tingling or weakness in arms or legs. 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 Mother Diabetes mellitus CVD (cardiovascular disease) Sister Cancer Son Diabetes mellitus Surgical History History of appendectomy History of esophagogastroduodenoscopy (EGD) Hx of cholecystectomy Hx of colonoscopy Hx of heart bypass surgery Social History Household Members: None Housing: Apartment Housing Other:: [employer] services Do you presently have visiting nurse or other home services: No Alcohol intake: never Patient Tobacco Use Status: Never used Tobacco Use of substances other than those prescribed or required for medical reasons: No Have you been hit, kicked, punched, or otherwise hurt by someone within the past year? If so, by whom?: No Do you feel safe in your current relationship?: No Current Relationship Is there a partner from a previous relationship who is making you feel unsafe n ow?: No Are you made to feel afraid or neglected: No Advance Directives: Yes Advance Directives on File: Yes Advance Directives Date on File: 02/06/21 Do you have thoughts of harming others: None Do you have a plan to hurt others: No Plan Recently lost weight without trying: Unsure Eating poorly because of decreased appetite: No Nutrition Risks: No Nutritional Risk Patient : No : No Poor oral hygiene: No Current occupational status: [employer] Allergies Allergy/AdvReac Type Severity Reaction Status Date / Time No Known Allergies Allergy Verified 04/05/21 09:24 [No Known Allergies*] Active Medications: Current Medications Pharmacy Consult (Consult Rx Perform Med Rec) 1 each MISCELLANE ONCE PRN PRN Reason: Consult order Home Medications Medication Instructions Recorded Confirmed Last Taken Type albuterol sulfate 90 mcg/actuation 2 puff INHALATION Q6H PRN 02/27/20 04/05/21 04/05/21 History aerosol inhaler (Ventolin HFA) amlodipine 2.5 mg tablet 2.5 mg PO DAILY 02/27/20 04/05/21 04/05/21 History aspirin 81 mg tablet,delayed 81 mg PO DAILY 02/27/20 04/05/21 04/05/21 History release (Adult Aspirin Regimen) cholecalciferol (vitamin D3) 50 2,000 unit PO DAILY cap 02/27/20 04/05/21 04/05/21 History mcg (2,000 unit) capsule famotidine 20 mg tablet 20 mg PO DAILY 02/27/20 04/05/21 04/05/21 History metoprolol tartrate 25 mg tablet 12.5 mg PO DAILY 02/27/20 04/05/21 04/05/21 History ticagrelor 90 mg tablet (Brilinta) 90 mg PO BID 02/27/20 04/05/21 04/05/21 History cetirizine 10 mg capsule (All Day 10 mg PO DAILY PRN cap 11/16/20 04/05/21 04/05/21 History Allergy (cetirizine)) melatonin 5 mg capsule 5 mg PO BEDTIME PRN cap 11/16/20 04/05/21 Unknown Histo ry calcium polycarbophil 625 mg 1 tab PO DAILY 02/05/21 04/05/21 04/05/21 History tablet (Fiber (calcium polycarbophil)) enalapril maleate 5 mg tablet 1 tab PO DAILY 02/05/21 04/05/21 04/05/21 History escitalopram oxalate 5 mg tablet 1 tab PO DAILY 02/05/21 04/05/21 04/05/21 History ferrous fumarate 324 mg (106 mg 1 tab PO DAILY 02/05/21 04/05/21 04/05/21 History iron) tablet (Ferrocite) insulin glargine U-300 conc 300 40 unit SUBCUT DAILY 02/05/21 04/05/21 04/05/21 History unit/mL (3 mL) subcutaneous pen (Toujeo Max U-300 SoloStar) rifaximin 550 mg tablet (Xifaxan) 1 tab PO BID 02/05/21 04/05/21 04/05/21 History trazodone 50 mg tablet 1 tab PO BEDTIME 04/05/21 04/05/21 04/05/21 History Physical Exam Vital Signs and Narrative: Vital Signs: Last Vital Signs Temp 97.8 F 04/05/21 19:57 Pulse 72 04/05/21 19:57 Resp 16 04/05/21 19:57 BP 159/61 H 04/05/21 19:57 Pulse Ox 100 04/05/21 16:50 BMI result Body Mass Index 10.6 Const: General: cooperative and no acute distress Orientation/consciousness: patient oriented x3 Eyes: General: appearance normal, both eyes and all related structures Pupils: Equal, round and reactive pupils present Resp: Effort & Inspection: normal respiratory effort Auscultation: clear to auscultation bilaterally Cardio: Rate: regular rate Rhythm: regular rhythm GI: Palpation (GI): Soft to palpation Auscultation: normal bowel sounds Skin: General skin exam: no rashes or lesions noted Neuro: Other: no neurological deficit General: patient oriented x3 Cranial nerves: Yes Equal, round and reactive pupils present Cognition (Neuro): normal cognition Extrem: General: Yes normal to inspection and Yes no pedal edema Results Labs CBC and Chem 7: 04/05/21 15:02 04/05/21 15:02 Labs: Laboratory Results - last 24 hr 04/05/21 04/05/21 04/05/21 14:11 15:02 15:02 MCV 88.5 MCH 27.6 MCHC 31.2 RDW 16.6 H Plt Count 274 MPV 10.9 Immature Gran % (Auto) 0.3 Neut % (Auto) 54.9 Lymph % (Auto) 32.1 [place] % (Auto) 8.4 Eos % (Auto) 3.8 Baso % (Auto) 0.5 Lymph # (Auto) 2.3 [place] # (Auto) 0.6 Eos # (Auto) 0.3 Baso # (Auto) 0.0 Abs Immat Gran (auto) 0.02 Absolute Neuts (auto) 4.0 Absolute Nucleated RBC 0.000 Nucleated RBC % (auto) 0.0 PT 12.3 INR 1.1 Anion Gap Estim Creat Clear Calc Estimated GFR Random Glucose Calcium Magnesium Total Bilirubin AST ALT Alkaline Phosphatase Troponin I High Sens Total Protein Albumin Urine Color Urine Appearance Urine pH Ur Specific [place] Urine Protein Urine Glucose (UA) Urine Ketones Urine Blood Urine Nitrite Ur Leukocyte Esterase Urine RBC Urine WBC Ur Squamous Epith Cells Urine Bacteria Stool Occult Blood Influenza Type A (PCR) NEGATIVE Influenza Type B (PCR) NEGATIVE RSV RNA Qual (PCR) NEGATIVE SARS-CoV-2 RNA (RT-PCR) NEGATIVE Blood Type Antibody Screen Crossmatch 04/05/21 04/05/21 04/05/21 15:02 15:02 15:36 MCV MCH MCHC RDW Plt Count MPV Immature Gran % (Auto) Neut % (Auto) Lymph % (Auto) [place] % (Auto) Eos % (Auto) Baso % (Auto) Lymph # (Auto) [place] # (Auto) Eos # (Auto) Baso # (Auto) Abs Immat Gran (auto) Absolute Neuts (auto) Absolute Nucleated RBC Nucleated RBC % (auto) PT INR Anion Gap 11 L Estim Creat Clear Calc 45.0 Estimated GFR 35 Random Glucose 180 H Calcium 8.4 Magnesium 2.1 Total Bilirubin 0.5 AST 89 H ALT 55 H Alkaline Phosphatase 435 H Troponin I High Sens 8.0 Total Protein 7.1 Albumin 3.2 L Urine Color YELLOW Urine Appearance CLEAR Urine pH 5.5 Ur Specific [place] 1.020 Urine Protein 1+ H Urine Glucose (UA) 100 H Urine Ketones NEG Urine Blood TRACE Urine Nitrite NEG Ur Leukocyte Esterase NEG Urine RBC 0-2 Urine WBC 0 Ur Squamous Epith Cells 1+ Urine Bacteria 1+ Stool Occult Blood Influenza Type A (PCR) Influenza Type B (PCR) RSV RNA Qual (PCR) SARS-CoV-2 RNA (RT-PCR) Blood Type Antibody Screen Crossmatch 04/05/21 04/05/21 16:24 16:51 MCV MCH MCHC RDW Plt Count MPV Immature Gran % (Auto) Neut % (Auto) Lymph % (Auto) [place] % (Auto) Eos % (Auto) Baso % (Auto) Lymph # (Auto) [place] # (Auto) Eos # (Auto) Baso # (Auto) Abs Immat Gran (auto) Absolute Neuts (auto) Absolute Nucleated RBC Nucleated RBC % (auto) PT INR Anion Gap Estim Creat Clear Calc Estimated GFR Random Glucose Calcium Magnesium Total Bilirubin AST ALT Alkaline Phosphatase Troponin I High Sens Total Protein Albumin Urine Color Urine Appearance Urine pH Ur Specific [place] Urine Protein Urine Glucose (UA) Urine Ketones Urine Blood Urine Nitrite Ur Leukocyte Esterase Urine RBC Urine WBC Ur Squamous Epith Cells Urine Bacteria Stool Occult Blood POSITIVE Influenza Type A (PCR) Influenza Type B (PCR) RSV RNA Qual (PCR) SARS-CoV-2 RNA (RT-PCR) Blood Type A Positive Antibody Screen NEGATIVE Crossmatch See Detail Imaging Radiologist's Impressions: Impressions Chest X-Ray 04/05/21 13:55 IMPRESSION: No acute cardiopulmonary process seen. 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 There is no acute intracranial bleed or acute infarct seen. Age-related cerebral volume loss with chronic small vessel ischemic changes. Assessment and Plan (1) Normocytic anemia: Status: Acute (2) Dizziness: Status: Acute (3) CKD (chronic kidney disease): Status: Acute (4) CVA (cerebral vascular accident): Status: Acute 70-year-old female with past medical history of diabetes, presents to the hospital with dizziness, as well as gait imbalance found to be anemic # normocytic anemia - most likely secondary to upper GI bleed, patient takes aspirin twice a day, found to have FOBT positive as well as Brilinta - status post 2 units of PRBC - GI consult - follow H&H - hold aspirin and Brilinta # dizziness - most likely secondary to above - status post blood transfusion - reassess prior to discharge # CVA - seen on head CT, she has no history of stroke - patient already on aspirin and will add high-dose statin - further workup can be done outpatient - no acute finding on his CT # gait imbalance - possibly secondary to history of CVA - will consult PT # diabetes - low-dose sliding scale insulin - diabetic diet # CKD - creatinine baseline - follow BMP # CAD status post CABG - whole Brilinta - continue metoprolol DVT prophylaxis: SCDs Quality Stroke Does the patient have a stroke diagnosis?: No VTE Prior VTE?: No VTE Risk Level:: Medical - moderate - high VTE Device Contraindication: Treatment Not Indicated VTE Drug Contraindication: N/A - Med Ordered
[2021-04-05 20:50] LABS: Glucose, Whole Blood 74 mg/dL (60-115)
[2021-04-05 21:48] LABS: Troponin-I High Sensitivity 13.6 ng/L (<3.5-17.0)
--- NOTE | 2021-04-05 21:49 | PC.NURSE ---
Pt transferred to for skin precautions and pt comfort. Pt offers no complaints of pain/discomfort. Purewick in place, draining appropriately. Pt VSS on RA. Pt blood transfusion continues appropriately. No transfusion rxn noted/reported. Pt bed in lowest locked position, rails raised, call tineo within reach.
--- NOTE | 2021-04-05 21:51 | PC.NURSE ---
This RN to administer IV meds per MAR once blood transfusion is complete.
--- NOTE | 2021-04-05 21:56 | PC.NURSE ---
Phleb to draw BNP as initial lavender tube sent for processing of troponin and BNP insufficient blood for both tests.
--- NOTE | 2021-04-05 21:57 | PC.NURSE ---
Dr Woodard aware of repeat trop
[2021-04-05] MEDS: Pantoprazole Sodium 40 MG/10 ML VIAL IVPUSH (22:04)
[2021-04-05] MEDS: traZODone HCL 50 MG TABLET PO (22:04)
[2021-04-05] MEDS: 0.9 % Sodium Chloride 1,000 ML 100 ML IVCONT (22:07)
[2021-04-05] MEDS: rifAXIMin 550 MG TABLET PO (22:07)
--- NOTE | 2021-04-05 22:25 | PC.NURSE ---
phleb obtained blood sample for BNP.
[2021-04-05 22:54] LABS: B Type Natriuretic Peptide 52 pg/mL (<100)
[2021-04-06] VITALS (10 sets, daily range): BP systolic 148–181; BP diastolic 51–98; PULSE 58–67; RESP 14–19; TEMP 35.9–37; O2SAT 94–99
--- NOTE | 2021-04-06 | ECG_ITS ---
Test Reason : LOW BLOOD PRESSURE Blood Pressure : / mmHG Vent. Rate : 062 BPM Atrial Rate : 062 BPM P-R Int : 134 ms QRS Dur : 084 ms QT Int : 438 ms P-R-T Axes : 000 176 148 degrees QTc Int : 444 ms Normal sinus rhythm Right axis deviation Abnormal ECG When compared with ECG of 05-APR-2021 13:49, QRS axis Shifted right Non-specific change in ST segment in Lateral leads (this could be limb lead reversal) Referred By: Juan Oneal Electronically Signed By:ABI LUCERO
--- NOTE | 2021-04-06 03:56 | PC.NURSE ---
Pt asleep on HB in NAD, breathing with ease on RA, VSS. Pt NSR-SB on patient monitor. Pt purewick continues to drain appropriately. Pt's IVF continue to infuse. Bed in lowest locked position, rails raised, call tineo within reach.
[2021-04-06] MEDS: Pantoprazole Sodium 40 MG/10 ML VIAL IVPUSH (05:15)
--- NOTE | 2021-04-06 05:17 | PC.NURSE ---
Pt reporting HASSAN, to be medicated with tylenol PRN
[2021-04-06] MEDS: Acetaminophen 325 MG TABLET 650 MG PO (05:19)
--- NOTE | 2021-04-06 05:41 | PC.NURSE ---
Phleb unable to obtain labs, per examiner rating clerk, another phleb will come to attempt lab draw.
[2021-04-06 07:13] LABS: Glucose, Whole Blood 66 mg/dL (60-115)
[2021-04-06 08:42] LABS: Hemoglobin 10.1 g/dl (12.0-16.0)
[2021-04-06] MEDS: Insulin Glargine,Hum.rec.anlog 100 UNIT/ML 10 ML VIAL 32 UNIT SUBCUT (08:56)
[2021-04-06] MEDS: Escitalopram Oxalate 5 MG TABLET PO ×2 (08:59→09:26)
[2021-04-06 09:02] LABS: Glucose, Whole Blood 90 mg/dL (60-115)
[2021-04-06 09:16] LABS: Anion Gap 10 (12-20); Blood Urea Nitrogen 26 mg/dL (9-16); Calcium 8.5 mg/dL (8.4-10.2); Carbon Dioxide 22 mmol/L (22-29); Chloride 113 mmol/L (96-108); Creatinine Clr Calc Pharmacy 65.5; Estimated Glomerular Filt Rate 54; Glucose Random 67 mg/dL (60-115); Potassium 4.1 mmol/L (3.3-5.1); Sodium 141 mmol/L (135-145)
[2021-04-06] MEDS: calcium polycarbophiL TABLET 1 TAB PO (09:24)
[2021-04-06] MEDS: rifAXIMin 550 MG TABLET PO ×2 (09:24→20:33)
[2021-04-06] MEDS: amLODIPine Besylate 2.5 MG TABLET PO (09:48)
[2021-04-06 12:03] LABS: Glucose, Whole Blood 155 mg/dL (60-115)
--- NOTE | 2021-04-06 12:44 | P.PNIM_ITS ---
Subjective Subjective Date of Service: 04/06/21 Interval History: Tolerated transfusion with appropriate rise in Hb Denies hugo hematochezia or melena No abd discomfort No chest pain History taken in Mauritian from pt Review of Systems Review of Systems: Yes all other systems are reviewed and are negative Physical Exam Vital Signs: Vital Signs: Last Vital Signs Temp 97.5 F 04/06/21 00:00 Pulse 58 04/06/21 09:01 Resp 14 04/06/21 03:55 BP 148/51 H 04/06/21 11:01 Pulse Ox 99 04/06/21 03:55 Gen: in no acute distress HEENT: sclera anicteric, moist mucus membranes Neck: supple Lungs: clear to auscultation bilaterally Heart: regular rate and rhythm, no murmurs Abd: soft, non-tender, non-distended Ext: no edema Skin: warm/well-perfused Neuro: alert and oriented x3, no focal findings Psych: appropriate affect Objective Data Active Medications Acetaminophen (Acetaminophen 325 Mg Tablet) 650 mg PO Q6H PRN PRN Reason: Pain, Mild (Pain Scale 1-3) Last Admin: 04/06/21 05:19 Dose: 650 mg Documented by: ZECHRAIAH Albuterol Sulfate (Albuterol Sulfate 90 Mcg 8 Gm Inhaler) 2 puff INHALE Q6H PRN PRN Reason: Wheezing Amlodipine Besylate (Amlodipine Besylate 2.5 Mg Tablet) 2.5 mg PO DAILY [facility]; Protocol Last Admin: 04/06/21 09:48 Dose: 2.5 mg Documented by: DOMINIQUE Atorvastatin Calcium (Atorvastatin Calcium 40 Mg Tablet) 40 mg PO BEDTIME [facility] Calcium Polycarbophil (Calcium Polycarbophil Tablet) 1 tab PO DAILY [facility] Last Admin: 04/06/21 09:24 Dose: 1 tab Documented by: DOMINIQUE Dextrose (Dextrose 50 % 25 Gm/50 Ml Vial) 25 gm IVPUSH Q15M PRN; Protocol PRN Reason: per Hypoglycemia Standing Ord. Docusate Sodium (Docusate Sodium 100 Mg Capsule) 100 mg PO DAILY PRN PRN Reason: Constipation Enalapril Maleate (Enalapril Maleate 5 Mg Tablet) 5 mg PO DAILY [facility]; Protocol Last Admin: 04/06/21 09:24 Dose: 5 mg Documented by: DOMINIQUE Escitalopram Oxalate (Escitalopram Oxalate 5 Mg Tablet) 5 mg PO DAILY [facility] Last Admin: 04/06/21 09:26 Dose: 5 mg Documented by: DOMINIQUE Glucose (Glucose Gel 15 Gm Gel..Gram.) 15 gm PO Q15M PRN; Protocol PRN Reason: per Hypoglycemia Standing Ord. Sodium Chloride (Ns) 1,000 mls @ 100 mls/hr IVCONT .Q10H [facility] Last Infusion: 04/06/21 09:12 Dose: 0 mls/hr Documented by: DOMINIQUE Insulin Glargine (Insulin Glargine,Hum.Rec.Anlog 100 Unit/Ml 10 Ml Vial) 32 unit SUBCUT DAILY [facility] Last Admin: 04/06/21 08:56 Dose: 32 unit Documented by: DOMINIQUE Insulin Human Lispro (Insulin Lispro 100 Unit/Ml 3 Ml Vial) 0 unit SUBCUT QIDACHS [facility]; Protocol Last Admin: 04/06/21 07:21 Dose: Not Given Documented by: DOMINIQUE Non-Admin Reason: No Insulin Coverage Comments: POC is 66 Loratadine (Loratadine 10 Mg Tablet) 10 mg PO DAILY PRN PRN Reason: Allergic Symptoms Melatonin (6) 6 mg PO BEDTIME PRN PRN Reason: Insomnia Metoprolol Tartrate (Metoprolol Tartrate 12.5 Mg Halftab) 12.5 mg PO DAILY [facility]; Protocol Last Admin: 04/06/21 09:01 Dose: Not Given Documented by: DOMINIQUE Non-Admin Reason: Decreased Heart Rate Ondansetron HCl (Ondansetron Hcl 4 Mg/2 Ml Vial) 4 mg IVPUSH Q8H PRN PRN Reason: Nausea and Vomiting Pantoprazole Sodium (Pantoprazole Sodium 40 Mg/10 Ml Vial) 40 mg IVPUSH BID@0630,1630 [facility] Last Admin: 04/06/21 05:15 Dose: 40 mg Documented by: ZECHARIAH Pharmacy Consult (Consult Rx Perform Med Rec) 1 each MISCELLANE ONCE PRN PRN Reason: Consult order Rifaximin (Rifaximin 550 Mg Tablet) 550 mg PO BID [facility] Last Admin: 04/06/21 09:24 Dose: 550 mg Documented by: DOMINIQUE Sodium Chloride (0.9 % Sodium Chloride Flush 3 Ml Syringe) 3 ml IVFLUSH QSHIFT [facility] Last Admin: 04/06/21 09:02 Dose: Not Given Documented by: DOMINIQUE Non-Admin Reason: IV Running Trazodone HCl (Trazodone Hcl 50 Mg Tablet) 50 mg PO BEDTIME [facility] Last Admin: 04/05/21 22:04 Dose: 50 mg Documented by: ZECHARIAH Labs CBC & Chem 7: 04/06/21 07:56 04/06/21 07:56 Labs: Laboratory Results - last 24 hr 04/05/21 04/05/21 04/05/21 14:11 15:02 15:02 MCV 88.5 MCH 27.6 MCHC 31.2 RDW 16.6 H Plt Count 274 MPV 10.9 Immature Gran % (Auto) 0.3 Neut % (Auto) 54.9 Lymph % (Auto) 32.1 Simpson % (Auto) 8.4 Eos % (Auto) 3.8 Baso % (Auto) 0.5 Lymph # (Auto) 2.3 Simpson # (Auto) 0.6 Eos # (Auto) 0.3 Baso # (Auto) 0.0 Abs Immat Gran (auto) 0.02 Absolute Neuts (auto) 4.0 Absolute Nucleated RBC 0.000 Nucleated RBC % (auto) 0.0 PT 12.3 INR 1.1 Anion Gap Estim Creat Clear Calc Estimated GFR POC Glucose Random Glucose Calcium Magnesium Total Bilirubin AST ALT Alkaline Phosphatase Troponin I High Sens B-Natriuretic Peptide Total Protein Albumin Urine Color Urine Appearance Urine pH Ur Specific Stoddard Urine Protein Urine Glucose (UA) Urine Ketones Urine Blood Urine Nitrite Ur Leukocyte Esterase Urine RBC Urine WBC Ur Squamous Epith Cells Urine Bacteria Stool Occult Blood Influenza Type A (PCR) NEGATIVE Influenza Type B (PCR) NEGATIVE RSV RNA Qual (PCR) NEGATIVE SARS-CoV-2 RNA (RT-PCR) NEGATIVE Blood Type Antibody Screen Crossmatch 04/05/21 04/05/21 04/05/21 15:02 15:02 15:36 MCV MCH MCHC RDW Plt Count MPV Immature Gran % (Auto) Neut % (Auto) Lymph % (Auto) Simpson % (Auto) Eos % (Auto) Baso % (Auto) Lymph # (Auto) Simpson # (Auto) Eos # (Auto) Baso # (Auto) Abs Immat Gran (auto) Absolute Neuts (auto) Absolute Nucleated RBC Nucleated RBC % (auto) PT INR Anion Gap 11 L Estim Creat Clear Calc 45.0 Estimated GFR 35 POC Glucose Random Glucose 180 H Calcium 8.4 Magnesium 2.1 Total Bilirubin 0.5 AST 89 H ALT 55 H Alkaline Phosphatase 435 H Troponin I High Sens 8.0 B-Natriuretic Peptide Total Protein 7.1 Albumin 3.2 L Urine Color YELLOW Urine Appearance CLEAR Urine pH 5.5 Ur Specific Stoddard 1.020 Urine Protein 1+ H Urine Glucose (UA) 100 H Urine Ketones NEG Urine Blood TRACE Urine Nitrite NEG Ur Leukocyte Esterase NEG Urine RBC 0-2 Urine WBC 0 Ur Squamous Epith Cells 1+ Urine Bacteria 1+ Stool Occult Blood Influenza Type A (PCR) Influenza Type B (PCR) RSV RNA Qual (PCR) SARS-CoV-2 RNA (RT-PCR) Blood Type Antibody Screen Crossmatch 04/05/21 04/05/21 04/05/21 16:24 16:51 20:38 MCV MCH MCHC RDW Plt Count MPV Immature Gran % (Auto) Neut % (Auto) Lymph % (Auto) Simpson % (Auto) Eos % (Auto) Baso % (Auto) Lymph # (Auto) Simpson # (Auto) Eos # (Auto) Baso # (Auto) Abs Immat Gran (auto) Absolute Neuts (auto) Absolute Nucleated RBC Nucleated RBC % (auto) PT INR Anion Gap Estim Creat Clear Calc Estimated GFR POC Glucose Random Glucose Calcium Magnesium Total Bilirubin AST ALT Alkaline Phosphatase Troponin I High Sens 13.6 D B-Natriuretic Peptide Cancelled Total Protein Albumin Urine Color Urine Appearance Urine pH Ur Specific Stoddard Urine Protein Urine Glucose (UA) Urine Ketones Urine Blood Urine Nitrite Ur Leukocyte Esterase Urine RBC Urine WBC Ur Squamous Epith Cells Urine Bacteria Stool Occult Blood POSITIVE Influenza Type A (PCR) Influenza Type B (PCR) RSV RNA Qual (PCR) SARS-CoV-2 RNA (RT-PCR) Blood Type A Positive Antibody Screen NEGATIVE Crossmatch See Detail 04/05/21 04/05/21 04/06/21 20:45 22:29 07:09 MCV MCH MCHC RDW Plt Count MPV Immature Gran % (Auto) Neut % (Auto) Lymph % (Auto) Simpson % (Auto) Eos % (Auto) Baso % (Auto) Lymph # (Auto) Simpson # (Auto) Eos # (Auto) Baso # (Auto) Abs Immat Gran (auto) Absolute Neuts (auto) Absolute Nucleated RBC Nucleated RBC % (auto) PT INR Anion Gap Estim Creat Clear Calc Estimated GFR POC Glucose 74 66 Random Glucose Calcium Magnesium Total Bilirubin AST ALT Alkaline Phosphatase Troponin I High Sens B-Natriuretic Peptide 52 Total Protein Albumin Urine Color Urine Appearance Urine pH Ur Specific Stoddard Urine Protein Urine Glucose (UA) Urine Ketones Urine Blood Urine Nitrite Ur Leukocyte Esterase Urine RBC Urine WBC Ur Squamous Epith Cells Urine Bacteria Stool Occult Blood Influenza Type A (PCR) Influenza Type B (PCR) RSV RNA Qual (PCR) SARS-CoV-2 RNA (RT-PCR) Blood Type Antibody Screen Crossmatch 04/06/21 04/06/21 04/06/21 07:56 07:56 08:41 MCV MCH MCHC RDW Plt Count MPV Immature Gran % (Auto) Neut % (Auto) Lymph % (Auto) Simpson % (Auto) Eos % (Auto) Baso % (Auto) Lymph # (Auto) Simpson # (Auto) Eos # (Auto) Baso # (Auto) Abs Immat Gran (auto) Absolute Neuts (auto) Absolute Nucleated RBC Nucleated RBC % (auto) PT INR Anion Gap 10 L Estim Creat Clear Calc 65.5 Estimated GFR 54 POC Glucose 90 Random Glucose 67 Calcium 8.5 Magnesium Total Bilirubin AST ALT Alkaline Phosphatase Troponin I High Sens 7.0 B-Natriuretic Peptide Total Protein Albumin Urine Color Urine Appearance Urine pH Ur Specific Stoddard Urine Protein Urine Glucose (UA) Urine Ketones Urine Blood Urine Nitrite Ur Leukocyte Esterase Urine RBC Urine WBC Ur Squamous Epith Cells Urine Bacteria Stool Occult Blood Influenza Type A (PCR) Influenza Type B (PCR) RSV RNA Qual (PCR) SARS-CoV-2 RNA (RT-PCR) Blood Type Antibody Screen Crossmatch 04/06/21 12:00 MCV MCH MCHC RDW Plt Count MPV Immature Gran % (Auto) Neut % (Auto) Lymph % (Auto) Simpson % (Auto) Eos % (Auto) Baso % (Auto) Lymph # (Auto) Simpson # (Auto) Eos # (Auto) Baso # (Auto) Abs Immat Gran (auto) Absolute Neuts (auto) Absolute Nucleated RBC Nucleated RBC % (auto) PT INR Anion Gap Estim Creat Clear Calc Estimated GFR POC Glucose 155 H Random Glucose Calcium Magnesium Total Bilirubin AST ALT Alkaline Phosphatase Troponin I High Sens B-Natriuretic Peptide Total Protein Albumin Urine Color Urine Appearance Urine pH Ur Specific Stoddard Urine Protein Urine Glucose (UA) Urine Ketones Urine Blood Urine Nitrite Ur Leukocyte Esterase Urine RBC Urine WBC Ur Squamous Epith Cells Urine Bacteria Stool Occult Blood Influenza Type A (PCR) Influenza Type B (PCR) RSV RNA Qual (PCR) SARS-CoV-2 RNA (RT-PCR) Blood Type Antibody Screen Crossmatch Assessment and Plan (1) Acute blood loss anemia: Status: Acute Assessment and Plan: hospital d#2 70yo F with CAD s/p, CKD2-3, DM2 presented with dizziness, found to be markedly anemic and FOBT+ # normocytic anemia - s/p 2u pRBCs 04/05/21 - iron studies, B12, folate, LDH, retics pending - GI consult pending - hold DAPT # prior CVA - incidentally seen on CT head - continue DAPT once bleeding cause discovered; start high-intensity statin # dizziness/imbalance - PT consulted, plan homew ith VNA # elevated LFTs - undergoing outpt workup by [facility] # CAD - hold DAPT given FOBT+ anemia - continue b-steff, SHAMIKA-I # HTN - amlodipine, metoprolol, lisinopril # DM2 - basal/bolus insulin # CKD2-3 - SCr at baseline # mood disorder - trazodone, escitalopram # VTE ppx - SCDs Quality Stroke Does the patient have a stroke diagnosis?: No VTE Prior VTE?: No VTE Risk Level:: Medical - moderate - high VTE Device Contraindication: Treatment Not Indicated VTE Drug Contraindication: N/A - Med Ordered
[2021-04-06] MEDS: Insulin Lispro 100 UNIT/ML 3 ML VIAL SUBCUT ×2 (12:45→20:36)
[2021-04-06 13:16] LABS: Immature Retic Fraction 22.8 % (3.0-15.9); Retic HGB Equivalent 24.8 pg (30.0-35.0); Reticulocyte Percent 1.4 % (0.5-1.8); Reticulocytes Absolute 0.051 X10*6/uL (0.026-0.095)
[2021-04-06 13:36] LABS: Ferritin 22 ng/mL (10-250)
[2021-04-06 13:39] LABS: Lactate Dehydrogenase 219 U/L (122-220)
[2021-04-06 13:42] LABS: Iron 132 mcg/dL (30-160); Percent Iron Saturation 35 % (15-50); Total Iron Binding Capacity 372 mcg/dL (228-428); Unsaturated Iron Binding 240 ug/dL
[2021-04-06 13:56] LABS: Folate 8.1 ng/mL (> or = 4.0); Vitamin B12 514 pg/mL (200-900)
--- NOTE | 2021-04-06 15:24 | PC.NURSE ---
pt alert and oriented, vss, she denies pain. pt's REJ patent, pt tolerating well. pt has purewick in place. no sob/headache/dizziness. pt up to ambulate with physical therapist. breakfast and lunch given. meds given as documented. pt is assigned to room 351, report given to receiving nurse PAGE Conti. pt will be transported to room by tenter feeder.
--- NOTE | 2021-04-06 15:31 | P.EN_ITS ---
Event Note Date of Service: 04/06/21 Event Note: GI Consult-Full note dictated-Hx via patient with Medical Interpre ter and the EMR Imp: 70 yo female followed by Dr. Shepard for cirrhosis due to probable fatty liver, presenting with worsening anemia and Heme + stool. She is on ASA and Brilinta for CAD/ASCVD, and also takes Ibuprofen regularly(although describes that she has been told to stop that by her physicians). She does have chronic anemia. She has been having some epigastric pain lately. She describes an EGD and colonoscopy about 4 or 5 years ago in [place]. She states that she hasn't had any GI procedures since moving up here. She describes gastritis and using omeprazole in the past, but now on Famotidine. Denies tobacco or EtOH. Denies any signs of GI bleeding at home nor here in the hospital. She describes baseline constipation but no other new GI symptoms. Feels better after her transfusions and has been tolerating her diet here. Diff dx: Given the clinical history, I suspect a probable UGI source of blood loss such as gastritis, PUD, AVM's, and/or portal gastropathy. Rec: EGD on Thursday, 04/08 with [facility]. Full consent obtained for this, including risks of bleeding and perforation. Change to oral PPI. F/U Hgb. Told to stay off all NSAIDs [employer]. Hold ASA and Brilinta for now if OK from a cardiac standpoint. We did discuss possible need for colonoscopy if the EGD is nonrevealing. The patient is comfortable with this plan. Thanks
--- NOTE | 2021-04-06 15:56 | MHC.SHP ---
Pre-Procedural Eval Section A Date of Service: 04/08/21 The patient is an INPATIENT: Yes The History & Physical has been completed within 30 days and I have reviewed it.: Yes Section B Chief Complaint: GI Bleed Anemia Allergies: Allergies Allergy/AdvReac Type Severity Reaction Status Date / Time No Known Allergies Allergy Verified 04/05/21 09:24 [No Known Allergies*] Plan I have reviewed the history and physical and performed a pertinent physical examination on my patient. No changes have occurred unless specified.
[2021-04-06] MEDS: Omeprazole 40 MG CAPSULE.DR PO (17:22)
[2021-04-06] MEDS: 0.9 % Sodium Chloride Flush 3 ML SYRINGE IVFLUSH (17:22)
--- NOTE | 2021-04-06 17:40 | PC.NURSE ---
P-BP elevated 181/98,pulse [address] Oneal notified E will adm. Lopressor since am dose was not administered
[2021-04-06 17:45] LABS: Glucose, Whole Blood 89 mg/dL (60-115)
[2021-04-06] MEDS: Metoprolol Tartrate 12.5 MG HALFTAB PO (17:46)
[2021-04-06] MEDS: 0.9 % Sodium Chloride 1,000 ML 100 ML IVCONT (17:48)
[2021-04-06] MEDS: Atorvastatin Calcium 40 MG TABLET PO (20:33)
[2021-04-06] MEDS: traZODone HCL 50 MG TABLET PO (20:33)
[2021-04-06 20:37] LABS: Glucose, Whole Blood 158 mg/dL (60-115)
[2021-04-07] MEDS: 0.9 % Sodium Chloride Flush 3 ML SYRINGE IVFLUSH ×3 (00:42→15:49)
[2021-04-07 04:00] VITALS: BP 161/65; PULSE 66; RESP 17; TEMP 37.1; O2SAT 98
[2021-04-07] MEDS: 0.9 % Sodium Chloride 1,000 ML 100 ML IVCONT (06:00)
[2021-04-07] MEDS: Omeprazole 40 MG CAPSULE.DR PO (06:00)
[2021-04-07 06:26] LABS: Hematocrit 32.9 % (37.0-47.0); Hemoglobin 10.4 g/dl (12.0-16.0)
[2021-04-07 06:48] LABS: Alanine Aminotransferase 46 U/L (0-31); Albumin Level 2.7 g/dL (3.5-5.0); Alkaline Phosphatase 411 U/L (39-117); Anion Gap 8 (12-20); Aspartate Amino Transferase 81 U/L (5-31); Bilirubin Direct 0.3 mg/dL (0.0-0.5); Bilirubin Total 0.5 mg/dL (0.0-1.0); Blood Urea Nitrogen 27 mg/dL (9-16); Calcium 8.4 mg/dL (8.4-10.2); Carbon Dioxide 21 mmol/L (22-29); Chloride 114 mmol/L (96-108); Creatinine Clr Calc Pharmacy 64.2; Estimated Glomerular Filt Rate 53; Glucose Random 194 mg/dL (60-115); Potassium 4.4 mmol/L (3.3-5.1); Sodium 139 mmol/L (135-145); Total Protein 6.4 g/dL (6.5-8.0)
[2021-04-07 06:58] VITALS: BP 148/65; PULSE 69; RESP 18; TEMP 36.4; O2SAT 98
[2021-04-07 07:20] LABS: Glucose, Whole Blood 158 mg/dL (60-115)
[2021-04-07] MEDS: Insulin Glargine,Hum.rec.anlog 100 UNIT/ML 10 ML VIAL 32 UNIT SUBCUT (08:51)
[2021-04-07] MEDS: Insulin Lispro 100 UNIT/ML 3 ML VIAL SUBCUT ×2 (08:52→11:51)
[2021-04-07] MEDS: rifAXIMin 550 MG TABLET PO ×2 (08:52→20:14)
[2021-04-07] MEDS: Metoprolol Tartrate 12.5 MG HALFTAB PO (08:53)
[2021-04-07] MEDS: Escitalopram Oxalate 5 MG TABLET PO (08:53)
[2021-04-07] MEDS: amLODIPine Besylate 2.5 MG TABLET PO (08:53)
[2021-04-07] MEDS: calcium polycarbophiL TABLET 1 TAB PO (08:54)
--- NOTE | 2021-04-07 10:46 | MHC.CM.PN ---
Patient lives alone, does not drive-[employer] drives, no other services and owns rollator. [employer] and daughter drive her places and either one will pick her up at D/C. She has 30 hrs/wk of [employer] services. CM to follow.
[2021-04-07 11:19] VITALS: BP 177/78; PULSE 55; RESP 17; TEMP 36.4; O2SAT 99
[2021-04-07 11:30] LABS: Glucose, Whole Blood 217 mg/dL (60-115)
--- NOTE | 2021-04-07 12:48 | HO.PM.IMPN ---
Subjective Subjective Date of Service: 04/07/21 Interval History: History taken in [place] Hb stable No nausea or vomiting No abd pain Review of Systems Review of Systems: Yes all other systems are reviewed and are negative Physical Exam Vital Signs: Vital Signs: Last Vital Signs Temp 97.6 F 04/07/21 11:19 Pulse 55 04/07/21 11:19 Resp 17 04/07/21 11:19 BP 177/78 H 04/07/21 11:19 Pulse Ox 99 04/07/21 11:19 BMI result Body Mass Index 10.6 Gen: in no acute distress HEENT: sclera anicteric, moist mucus membranes Neck: supple Lungs: clear to auscultation bilaterally Heart: regular rate and rhythm, no murmurs Abd: soft, non-tender, non-distended Ext: no edema Skin: warm/well-perfused Neuro: alert and oriented x3, no focal findings Psych: appropriate affect Objective Data Active Medications Acetaminophen (Acetaminophen 325 Mg Tablet) 650 mg PO Q6H PRN PRN Reason: Pain, Mild (Pain Scale 1-3) Last Admin: 04/06/21 05:19 Dose: 650 mg Documented by: ZECHARIAH Albuterol Sulfate (Albuterol Sulfate 90 Mcg 8 Gm Inhaler) 2 puff INHALE Q6H PRN PRN Reason: Wheezing Amlodipine Besylate (Amlodipine Besylate 2.5 Mg Tablet) 2.5 mg PO DAILY [facility]; Protocol Last Admin: 04/07/21 08:53 Dose: 2.5 mg Documented by: SUMEET Atorvastatin Calcium (Atorvastatin Calcium 40 Mg Tablet) 40 mg PO BEDTIME [facility] Last Admin: 04/06/21 20:33 Dose: 40 mg Documented by: AIRAM Calcium Polycarbophil (Calcium Polycarbophil Tablet) 1 tab PO DAILY [facility] Last Admin: 04/07/21 08:54 Dose: 1 tab Documented by: SUMEET Comments: barcode not on med profile Dextrose (Dextrose 50 % 25 Gm/50 Ml Vial) 25 gm IVPUSH Q15M PRN; Protocol PRN Reason: per Hypoglycemia Standing Ord. Docusate Sodium (Docusate Sodium 100 Mg Capsule) 100 mg PO DAILY PRN PRN Reason: Constipation Enalapril Maleate (Enalapril Maleate 5 Mg Tablet) 5 mg PO DAILY [facility]; Protocol Last Admin: 04/07/21 08:53 Dose: 5 mg Documented by: SUMEET Escitalopram Oxalate (Escitalopram Oxalate 5 Mg Tablet) 5 mg PO DAILY [facility] Last Admin: 04/06/21 09:26 Dose: 5 mg Documented by: DOMINIQUE Glucose (Glucose Gel 15 Gm Gel..Gram.) 15 gm PO Q15M PRN; Protocol PRN Reason: per Hypoglycemia Standing Ord. Insulin Glargine (Insulin Glargine,Hum.Rec.Anlog 100 Unit/Ml 10 Ml Vial) 32 unit SUBCUT DAILY [facility] Last Admin: 04/07/21 08:51 Dose: 32 unit Documented by: SUMEET Insulin Human Lispro (Insulin Lispro 100 Unit/Ml 3 Ml Vial) 0 unit SUBCUT QIDACHS [facility]; Protocol Last Admin: 04/07/21 11:51 Dose: 4 unit Documented by: SUMEET Loratadine (Loratadine 10 Mg Tablet) 10 mg PO DAILY PRN PRN Reason: Allergic Symptoms Melatonin (6) 6 mg PO BEDTIME PRN PRN Reason: Insomnia Metoprolol Tartrate (Metoprolol Tartrate 12.5 Mg Halftab) 12.5 mg PO DAILY [facility]; Protocol Last Admin: 04/07/21 08:53 Dose: 12.5 mg Documented by: SUMEET Omeprazole (Omeprazole 40 Mg Capsule.Dr) 40 mg PO DAILY@0630 [facility] Last Admin: 04/07/21 06:00 Dose: 40 mg Documented by: MARIBEL Ondansetron HCl (Ondansetron Hcl 4 Mg/2 Ml Vial) 4 mg IVPUSH Q8H PRN PRN Reason: Nausea and Vomiting Pharmacy Consult (Consult Rx Perform Med Rec) 1 each MISCELLANE ONCE PRN PRN Reason: Consult order Rifaximin (Rifaximin 550 Mg Tablet) 550 mg PO BID [facility] Last Admin: 04/07/21 08:52 Dose: 550 mg Documented by: SUMEET Sodium Chloride (0.9 % Sodium Chloride Flush 3 Ml Syringe) 3 ml IVFLUSH QSHIFT [facility] Last Admin: 04/07/21 08:54 Dose: 3 ml Documented by: SUMEET Trazodone HCl (Trazodone Hcl 50 Mg Tablet) 50 mg PO BEDTIME [facility] Last Admin: 04/06/21 20:33 Dose: 50 mg Documented by: AIRAM Labs CBC & Chem 7: 04/07/21 06:05 04/07/21 06:05 Labs: Laboratory Results - last 24 hr 04/06/21 04/06/21 04/06/21 07:56 07:56 07:56 Absolute Retic 0.051 Percent Retic 1.4 Immature Retic Fraction 22.8 H Retic Hgb Equivalent 24.8 L Anion Gap Estim Creat Clear Calc Estimated GFR POC Glucose Random Glucose Calcium Iron 132 TIBC 372 % Saturation 35 Unsat Iron Binding 240 Ferritin 22 Total Bilirubin Direct Bilirubin AST ALT Alkaline Phosphatase Lactate Dehydrogenase 219 Total Protein Albumin Vitamin B12 514 Folate 8.1 04/06/21 04/06/21 04/07/21 17:41 20:33 06:05 Absolute Retic Percent Retic Immature Retic Fraction Retic Hgb Equivalent Anion Gap 8 L Estim Creat Clear Calc 64.2 Estimated GFR 53 POC Glucose 89 158 H Random Glucose 194 H Calcium 8.4 Iron TIBC % Saturation Unsat Iron Binding Ferritin Total Bilirubin 0.5 Direct Bilirubin 0.3 AST 81 H ALT 46 H Alkaline Phosphatase 411 H Lactate Dehydrogenase Total Protein 6.4 L Albumin 2.7 L Vitamin B12 Folate 04/07/21 04/07/21 07:02 11:21 Absolute Retic Percent Retic Immature Retic Fraction Retic Hgb Equivalent Anion Gap Estim Creat Clear Calc Estimated GFR POC Glucose 158 H 217 H Random Glucose Calcium Iron TIBC % Saturation Unsat Iron Binding Ferritin Total Bilirubin Direct Bilirubin AST ALT Alkaline Phosphatase Lactate Dehydrogenase Total Protein Albumin Vitamin B12 Folate Assessment and Plan (1) Acute blood loss anemia: Status: Acute Assessment and Plan: hospital d#2=3 70yo F with CAD s/p, CKD2-3, DM2 presented with dizziness, found to be markedly anemic and FOBT+ # normocytic hypoproliferative anemia - s/p 2u pRBCs transfused 04/05/21 - GI consulted, plan EGD tomorrow, may need C-scope as well if unrevealing - hold DAPT # prior CVA - incidentally seen on CT head - resume DAPT once GI evaluation complete; started high-intensity statin # dizziness/imbalance - PT consulted, plan home with VNA # elevated LFTs - undergoing outpt workup by [facility]; likely [facility] # CAD - hold DAPT given FOBT+ anemia - continue b-steff, SHAMIKA-I # HTN - amlodipine, metoprolol, lisinopril # DM2, A1c 8.2 (02/05/21) - basal/bolus insulin # CKD2-3 - SCr at baseline # mood disorder - trazodone, escitalopram # VTE ppx - SCDs # dispo - eventual home with VNA Quality Stroke Does the patient have a stroke diagnosis?: No VTE Prior VTE?: No VTE Risk Level:: Medical - moderate - high VTE Device Contraindication: Treatment Not Indicated VTE Drug Contraindication: N/A - Med Ordered
[2021-04-07 15:23] VITALS: BP 189/86; PULSE 68; RESP 18; TEMP 36.1; O2SAT 100
[2021-04-07 17:23] LABS: Glucose, Whole Blood 59 mg/dL (60-115)
[2021-04-07 17:23] LABS: Glucose, Whole Blood 52 mg/dL (60-115)
[2021-04-07 17:23] LABS: Glucose, Whole Blood 76 mg/dL (60-115)
[2021-04-07 17:23] LABS: Glucose, Whole Blood 74 mg/dL (60-115)
[2021-04-07 19:19] VITALS: BP 177/74; PULSE 71; RESP 18; TEMP 36; O2SAT 100
[2021-04-07] MEDS: Atorvastatin Calcium 40 MG TABLET PO (20:14)
[2021-04-07] MEDS: traZODone HCL 50 MG TABLET PO (20:15)
[2021-04-07] MEDS: Albuterol Sulfate 90 MCG 8 GM INHALER 2 PUFF INHALE (20:34)
[2021-04-07 20:37] VITALS: PULSE 71; O2SAT 96
[2021-04-07 20:40] LABS: Glucose, Whole Blood 171 mg/dL (60-115)
[2021-04-08] VITALS (13 sets, daily range): BP systolic 122–191; BP diastolic 46–97; PULSE 64–74; RESP 16–20; TEMP 36–36.9; O2SAT 95–100; BMI 34.0
[2021-04-08 04:57] LABS: MANUAL DIFF FLAG NO
[2021-04-08 05:01] LABS: Basophils Percent Auto 0.4 % (0-2); Eosinophils Absolute Auto 0.3 X10*3/uL (0.0-0.4); Eosinophils Percent Auto 4.3 % (0-4); Hemoglobin 10.3 g/dl (12.0-16.0); Imm Gran Abs Auto 0.01 X10*3/uL (0.00-0.03); Imm Gran Pct Auto 0.1 % (0.0-0.4); Lymphocytes Absolute Auto 1.2 X10*3/uL (1.2-4.9); Mean Corpuscular HGB Conc 32.2 g/dl (31.0-35.0); Mean Platelet Volume 10.3 fL (9.4-12.3); Monocytes Absolute Auto 0.7 X10*3/uL (0.1-1.2); Monocytes Percent Auto 10.5 % (2-11); Neutrophils Absolute Auto 4.8 x10*3/uL (2.0-8.3); Neutrophils Percent Auto 67.7 % (45-73); Platelet Count 266 X10*3/uL (160-400); Red Blood Count 3.68 X10*6/uL (4.20-5.50); Red Cell Distribution Width 16.4 % (11.0-16.0)
[2021-04-08] MEDS: 0.9 % Sodium Chloride Flush 3 ML SYRINGE IVFLUSH ×3 (06:25→18:17)
[2021-04-08 09:02] LABS: Glucose, Whole Blood 73 mg/dL (60-115)
[2021-04-08] MEDS: Dextrose 5 % and 0.45 % NaCl 1,000 ML 80 ML IVCONT (10:52)
[2021-04-08 11:25] LABS: Glucose, Whole Blood 91 mg/dL (60-115)
--- NOTE | 2021-04-08 12:55 | CONS_ITS ---
DATE OF SERVICE: 04/06/2021 REASON FOR CONSULTATION: Anemia and heme-positive stool. HISTORY OF PRESENT ILLNESS: This has been obtained from the patient with a medical claims processor, and the medical record. The patient is a 70-year-old female with any apparent underlying history of cirrhosis in relation to what appears to be probable fatty liver disease. She is followed primarily by Dr. Shepard for that. She appears to have a chronic anemia with a hemoglobin of 7.3, most recently as of February 05. In October of 2019, she had a hemoglobin of 7.5. She had been at [facility] earlier this year in August, at which time, she had a hemoglobin of approximately 8. During the hospitalization at [facility] in August, she apparently had hepatic encephalopathy and responded to lactulose and rifaximin. There was no reported GI bleeding at that time. The patient was admitted here due to some problems with her balance and weakness. She was found to have a hemoglobin of 6.7 on admission and heme-positive stool, although without any report of melena nor hematochezia. She does take iron and vitamins regularly. She is also on aspirin and Brilinta in relation to underlying coronary artery disease, for which she is status post a stent as well as a reported previous history of a stroke. The patient describes that she has also been using ibuprofen fairly regularly even though her other physicians have told her to stop it. She has been having some epigastric pain, which seems to worsen after eating. She denies any significant heartburn, dysphagia, nausea, vomiting, nor early satiety. She denies any increasing abdominal girth nor jaundice. She denies any melena nor hematochezia, although does report that her bowel movements are somewhat constipated at baseline. She does take lactulose, which gives her relief from that. She does describe a previous upper endoscopy and colonoscopy while living in [place], but she reports that she has not had any of those procedures since she moved back up here a couple of years ago. She was told of gastritis in the past, for which she had been on omeprazole, but presently is using famotidine. Since admission here, she did receive transfusions and hemoglobin has increased to 10.1 and she does feel somewhat better. She has been tolerating her diet here. She has had no signs of GI bleeding since admission to the hospital. Her aspirin and Brilinta have been put on hold since admission. MEDICATIONS: Her medications at home included albuterol inhaler p.r.n., amlodipine, aspirin 81 mg, vitamin D, enalapril, escitalopram, famotidine, iron, insulin, melatonin, metoprolol, rifaximin, Brilinta, trazodone. Her medications here in the hospital include acetaminophen, albuterol, amlodipine, atorvastatin, Colace, enalapril, escitalopram, insulin, loratadine, melatonin, metoprolol, IV Protonix, Zofran, rifaximin, and trazodone. PAST MEDICAL HISTORY: Cirrhosis due to probable fatty liver disease. Coronary artery disease, status post stent placement. Insulin-dependent diabetes mellitus. Hypertension. Cirrhosis as above. Asthma. Hyperlipidemia. Hypertension. Depression. She is status post cholecystectomy, but denies any other surgeries. Upper endoscopy in [place] and told of gastritis. Colonoscopy while in [place]. Chronic anemia as above. COVID infection in August with associated pneumonia. CT scan of the abdomen in August of 2020 describing cirrhosis, but no masses. SOCIAL HISTORY: She lives by herself. She does not smoke nor use any significant amounts of alcohol. FAMILY HISTORY: Noncontributory. REVIEW OF SYSTEMS: CONSTITUTIONAL: She has been feeling weak at home. SKIN: No rash. No pruritus. CARDIAC: No chest pain. PULMONARY: No coughing or hemoptysis. GASTROINTESTINAL: As above. URINARY: No dysuria. No hematuria. NEUROLOGIC: No headache or seizures. PHYSICAL EXAMINATION: GENERAL: The patient is a pleasant, alert, comfortable-appearing female, in no distress. She seems to be alert and oriented and answers all questions appropriately. She has been afebrile. HEENT: Anicteric sclerae. NECK: Supple. CARDIAC: Normal S1, S2. ABDOMEN: Soft, nondistended, normal bowel sounds, nontender without mass. EXTREMITIES: Without edema. NEUROLOGICAL: She is alert. There is no obvious asterixis. LABORATORY DATA: As above. White blood cell count 7.3, hemoglobin 6.7 on admission and repeat of 10.1 after transfusions. Platelets 274,000. PT 12.3 with INR of 1.1. Normal electrolytes. BUN 26 today compared to 39 yesterday. Her BUN was 42 back in February. Creatinine 1.0. Iron 132, iron saturation 35%, ferritin 22, B12 of 514, folate 8.1, total bilirubin is 0.5, AST 89, ALT 55, albumin 3.2, alkaline phosphatase 435, which is chronic in regard to being significantly elevated as there was an alkaline phosphatase as high as 679 back in May 2019. IMPRESSION: In regard to the patient's anemia and heme-positive stool, I suspect this is related to an upper GI source of blood loss in relation to her chronic use of ibuprofen, aspirin, and Brilinta. The fact that she is having some intermittent epigastric pain, could also speak for either ulcer disease and/or gastritis. Other possibilities would be that of portal gastropathy and angiodysplasias as a source of chronic blood loss. At this point, she appears very stable from that standpoint, but I would recommend upper endoscopy on April 08 after she has been off her Brilinta and aspirin for 72 hours. I do not think the endoscopy needs to be done more urgently at this point unless she shows signs of active bleeding, which she has not. She may have underlying esophageal varices in relation to the underlying liver disease, but I do not think those would be the source of bleeding at this point based on the clinical history. Full consent has been obtained from her for the endoscopy, including risks of bleeding and perforation. We did review that the procedure will be done either by Dr. Shepard, Dr. Haines, myself, or Dr. Hernandez. In the meantime, I would change her over to an oral PPI since she has not shown any signs of active bleeding. She can continue her diet as tolerated and she will be n.p.o. for the procedure. She will have followup laboratories including a CBC. If the endoscopy is completely negative, I did advise her that she might need a colonoscopy either as an inpatient or at some point as an outpatient in the future. I did advise her to stay off NSAIDs long-term as well. Given her clinical history, she probably will need to go back on at least her aspirin and/or Brilinta at some point, but I think it would be reasonable to have her undergo the upper endoscopy first to be sure there is no significant lesion accounting for her blood loss at the present time. This has all been discussed in detail with the patient. In regard to the liver disease, this appears to be stable at the present time based on the clinical history, no signs of encephalopathy, normal bilirubin, normal PT with INR, and normal platelet count. She will continue to follow up with Dr. Shepard in that regard. The patient is comfortable with this plan. Thank you for the consultation. MD TRACEY Nascimento/LUCERO / [id number] MTDD
[2021-04-08] MEDS: Sodium Chloride 0.65 % Nasal 44 ML SPRBTL 1 SPRAY NOSTRIL-B (13:40)
[2021-04-08 13:52] LABS: Glucose, Whole Blood 113 mg/dL (60-115)
--- NOTE | 2021-04-08 14:10 | HO.ANESPROP2 ---
[facility] Active Problems Active Problems: All Active Problems (Updated 04/06/21 @ 12:46 by Juan Oneal MD) Acute blood loss anemia (Acute) CVA (cerebral vascular accident) (Acute) Normocytic anemia (Acute) Anemia (Acute) Fecal occult blood test positive (Acute) Dizziness (Acute) SOB (shortness of breath) (Acute) CKD (chronic kidney disease) (Acute) Low blood pressure (Acute) Pancreatic cyst (Acute) GERD (gastroesophageal reflux disease) (Acute) LUQ abdominal pain (Acute) Chronic constipation (Acute) Elevated LFTs (Acute) Iron deficiency anemia (Acute) Type 2 diabetes mellitus with hyperglycemia (Acute) Type 2 diabetes mellitus with chronic kidney disease (Acute) Essential hypertension (Acute) Hyperlipidemia LDL goal <100 (Acute) Obesity (BMI 30-39.9) (Acute) Diabetes mellitus with hyperglycemia (Acute) Past Medical History Medical History Constipated Depression Diabetes mellitus with hyperglycemia Essential hypertension Hyperlipidemia LDL goal <100 Hypertriglyceridemia Obesity (BMI 30-39.9) Pancreatitis Type 2 diabetes mellitus with chronic kidney disease Type 2 diabetes mellitus with hyperglycemia Vitamin D deficiency Family History Family History Father No problems noted. Mother Diabetes mellitus CVD (cardiovascular disease) Sister Cancer Son Diabetes mellitus Family history of problems with anesthesia: No Surgical History Surgical History History of appendectomy History of esophagogastroduodenoscopy (EGD) Hx of cholecystectomy Hx of colonoscopy Hx of heart bypass surgery History of Problems with Anesthesia: No Social History Social History Household Members: None Housing: Apartment Housing Other:: [employer]PRES[employer] services Do you presently have visiting nurse or other home services: No Alcohol intake: never Patient Tobacco Use Status: Never used Tobacco Advance Directives Date on File: 02/06/21 service: No Current occupational status: disabled Meds Allergies Allergy/AdvReac Type Severity Reaction Status Date / Time No Known Allergies Allergy Verified 04/05/21 09:24 [No Known Allergies*] Active Medications: Current Medications Acetaminophen (Acetaminophen 325 Mg Tablet) 650 mg PO Q6H PRN PRN Reason: Pain, Mild (Pain Scale 1-3) Last Admin: 04/06/21 05:19 Dose: 650 mg Documented by: Albuterol Sulfate (Albuterol Sulfate 90 Mcg 8 Gm Inhaler) 2 puff INHALE Q6H PRN PRN Reason: Wheezing Last Admin: 04/07/21 20:34 Dose: 2 puff Documented by: Amlodipine Besylate (Amlodipine Besylate 2.5 Mg Tablet) 2.5 mg PO DAILY [facility]; Protocol Last Admin: 04/08/21 09:07 Dose: Not Given Documented by: Atorvastatin Calcium (Atorvastatin Calcium 40 Mg Tablet) 40 mg PO BEDTIME YOVANA Last Admin: 04/07/21 20:14 Dose: 40 mg Documented by: Calcium Polycarbophil (Calcium Polycarbophil Tablet) 1 tab PO DAILY [facility] Last Admin: 04/08/21 09:07 Dose: Not Given Documented by: Dextrose (Dextrose 50 % 25 Gm/50 Ml Vial) 25 gm IVPUSH Q15M PRN; Protocol PRN Reason: per Hypoglycemia Standing Ord. Docusate Sodium (Docusate Sodium 100 Mg Capsule) 100 mg PO DAILY PRN PRN Reason: Constipation Enalapril Maleate (Enalapril Maleate 5 Mg Tablet) 5 mg PO DAILY [facility]; Protocol Last Admin: 04/08/21 09:07 Dose: Not Given Documented by: Escitalopram Oxalate (Escitalopram Oxalate 5 Mg Tablet) 5 mg PO DAILY [facility] Last Admin: 04/08/21 09:10 Dose: Not Given Documented by: Glucose (Glucose Gel 15 Gm Gel..Gram.) 15 gm PO Q15M PRN; Protocol PRN Reason: per Hypoglycemia Standing Ord. Dextrose/Sodium Chloride (D51/2ns) 1,000 mls @ 80 mls/hr IVCONT .[id number] [facility] Last Admin: 04/08/21 10:52 Dose: 80 mls/hr Documented by: Insulin Glargine (Insulin Glargine,Hum.Rec.Anlog 100 Unit/Ml 10 Ml Vial) 32 unit SUBCUT DAILY [facility] Last Admin: 04/08/21 09:15 Dose: Not Given Documented by: Insulin Human Lispro (Insulin Lispro 100 Unit/Ml 3 Ml Vial) 0 unit SUBCUT QIDACHS [facility]; Protocol Last Admin: 04/08/21 11:35 Dose: Not Given Documented by: Loratadine (Loratadine 10 Mg Tablet) 10 mg PO DAILY PRN PRN Reason: Allergic Symptoms Melatonin (6) 6 mg PO BEDTIME PRN PRN Reason: Insomnia Metoprolol Tartrate (Metoprolol Tartrate 12.5 Mg Halftab) 12.5 mg PO DAILY [facility]; Protocol Last Admin: 04/08/21 09:10 Dose: Not Given Documented by: Omeprazole (Omeprazole 40 Mg Capsule.Dr) 40 mg PO DAILY@0630 [facility] Last Admin: 04/08/21 06:04 Dose: Not Given Documented by: Ondansetron HCl (Ondansetron Hcl 4 Mg/2 Ml Vial) 4 mg IVPUSH Q8H PRN PRN Reason: Nausea and Vomiting Pharmacy Consult (Consult Rx Perform Med Rec) 1 each MISCELLANE ONCE PRN PRN Reason: Consult order Rifaximin (Rifaximin 550 Mg Tablet) 550 mg PO BID [facility] Last Admin: 04/08/21 09:11 Dose: Not Given Documented by: Sodium Chloride (0.9 % Sodium Chloride Flush 3 Ml Syringe) 3 ml IVFLUSH QSHIFT [facility] Last Admin: 04/08/21 08:25 Dose: 3 ml Documented by: Sodium Chloride (Sodium Chloride 0.65 % Nasal 44 Ml Sprbtl) 1 spray NOSTRIL-B Q1H PRN PRN Reason: Nasal Congestion Last Admin: 04/08/21 13:40 Dose: 1 spray Documented by: Trazodone HCl (Trazodone Hcl 50 Mg Tablet) 50 mg PO BEDTIME [facility] Last Admin: 04/07/21 20:15 Dose: 50 mg Documented by: Home Medications Medication Instructions Recorded Confirmed Last Taken Type albuterol sulfate 90 mcg/actuation 2 puff INHALATION Q6H PRN 02/27/20 04/05/21 04/05/21 History aerosol inhaler (Ventolin HFA) amlodipine 2.5 mg tablet 2.5 mg PO DAILY 02/27/20 04/05/21 04/05/21 History aspirin 81 mg tablet,delayed 81 mg PO DAILY 02/27/20 04/05/21 04/05/21 History release (Adult Aspirin Regimen) cholecalciferol (vitamin D3) 50 2,000 unit PO DAILY cap 02/27/20 04/05/21 04/05/21 History mcg (2,000 unit) capsule famotidine 20 mg tablet 20 mg PO DAILY 02/27/20 04/05/21 04/05/21 History metoprolol tartrate 25 mg tablet 12.5 mg PO DAILY 02/27/20 04/05/21 04/05/21 History ticagrelor 90 mg tablet (Brilinta) 90 mg PO BID 02/27/20 04/05/21 04/05/21 History cetirizine 10 mg capsule (All Day 10 mg PO DAILY PRN cap 11/16/20 04/05/21 04/05/21 History Allergy (cetirizine)) melatonin 5 mg capsule 5 mg PO BEDTIME PRN cap 11/16/20 04/05/21 Unknown History calcium polycarbophil 625 mg 1 tab PO DAILY 02/05/21 04/05/21 04/05/21 History tablet (Fiber (calcium polycarbophil)) enalapril maleate 5 mg tablet 1 tab PO DAILY 02/05/21 04/05/21 04/05/21 History escitalopram oxalate 5 mg tablet 1 tab PO DAILY 02/05/21 04/05/21 04/05/21 History ferrous fumarate 324 mg (106 mg 1 tab PO DAILY 02/05/21 04/05/21 04/05/21 History iron) tablet (Ferrocite) insulin glargine U-300 conc 300 40 unit SUBCUT DAILY 02/05/21 04/05/21 04/05/21 History unit/mL (3 mL) subcutaneous pen (Toujeo Max U-300 SoloStar) rifaximin 550 mg tablet (Xifaxan) 1 tab PO BID 02/05/21 04/05/21 04/05/21 History trazodone 50 mg tablet 1 tab PO BEDTIME 04/05/21 04/05/21 04/05/21 History Exam Exam Date and Time: April 08, 2021 141 Height,Weight and Vital Signs: Height 4 ft 9 in Weight 71.214 kg Last Vital Signs Temp 98.4 F 04/08/21 13:55 Pulse 74 04/08/21 13:55 Resp 16 04/08/21 13:55 BP 187/63 H 04/08/21 13:55 Pulse Ox 96 04/08/21 13:55 Pertinent Lab Results Pertinent Lab Results: Laboratory Tests 04/05/21 04/05/2104/05/21 14:11 15:02 15:02 WBC 7.3 RBC 2.43 L Hgb 6.7 L* Hct 21.5 L MCV 88.5 MCH 27.6 MCHC 31.2 RDW 16.6 H Plt Count 274 MPV 10.9 Immature Gran % (Auto) 0.3 Neut % (Auto) 54.9 Lymph % (Auto) 32.1 [place] % (Auto) 8.4 Eos % (Auto) 3.8 Baso % (Auto) 0.5 Lymph # (Auto) 2.3 [place] # (Auto) 0.6 Eos # (Auto) 0.3 Baso # (Auto) 0.0 Abs Immat Gran (auto) 0.02 Absolute Neuts (auto) 4.0 Absolute Nucleated RBC 0.000 Nucleated RBC % (auto) 0.0 Absolute Retic Percent Retic Immature Retic Fraction Retic Hgb Equivalent PT 12.3 INR 1.1 Sodium Potassium Chloride Carbon Dioxide Anion Gap BUN Creatinine Estim Creat Clear Calc Estimated GFR POC Glucose Random Glucose Calcium Magnesium Iron TIBC % Saturation Unsat Iron Binding Ferritin Total Bilirubin Direct Bilirubin AST ALT Alkaline Phosphatase Lactate Dehydrogenase Troponin I High Sens B-Natriuretic Peptide Total Protein Albumin Vitamin B12 Folate Urine Color Urine Appearance Urine pH Ur Specific [place] Urine Protein Urine Glucose (UA) Urine Ketones Urine Blood Urine Nitrite Ur Leukocyte Esterase Urine RBC Urine WBC Ur Squamous Epith Cells Urine Bacteria Stool Occult Blood Influenza Type A (PCR) NEGATIVE Influenza Type B (PCR) NEGATIVE RSV RNA Qual (PCR) NEGATIVE SARS-CoV-2 RNA (RT-PCR) NEGATIVE Blood Type Antibody Screen Crossmatch 04/05/21 04/05/21 04/05/21 15:02 15:02 15:36 WBC RBC Hgb Hct MCV MCH MCHC RDW Plt Count MPV Immature Gran % (Auto) Neut % (Auto) Lymph % (Auto) [place] % (Auto) Eos % (Auto) Baso % (Auto) Lymph # (Auto) [place] # (Auto) Eos # (Auto) Baso # (Auto) Abs Immat Gran (auto) Absolute Neuts (auto) Absolute Nucleated RBC Nucleated RBC % (auto) Absolute Retic Percent Retic Immature Retic Fraction Retic Hgb Equivalent PT INR Sodium 135 Potassium 4.5 Chloride 109 H Carbon Dioxide 20 L Anion Gap 11 L BUN 39 H Creatinine 1.47 H Estim Creat Clear Calc 45.0 Estimated GFR 35 POC Glucose Random Glucose 180 H Calcium 8.4 Magnesium 2.1 Iron TIBC % Saturation Unsat Iron Binding Ferritin Total Bilirubin 0.5 Direct Bilirubin AST 89 H ALT 55 H Alkaline Phosphatase 435 H Lactate Dehydrogenase Troponin I High Sens 8.0 B-Natriuretic Peptide Total Protein 7.1 Albumin 3.2 L Vitamin B12 Folate Urine Color YELLOW Urine Appearance CLEAR Urine pH 5.5 Ur Specific [place] 1.020 Urine Protein 1+ H Urine Glucose (UA) 100 H Urine Ketones NEG Urine Blood TRACE Urine Nitrite NEG Ur Leukocyte Esterase NEG Urine RBC 0-2 Urine WBC 0 Ur Squamous Epith Cells 1+ Urine Bacteria 1+ Stool Occult Blood Influenza Type A (PCR) Influenza Type B (PCR) RSV RNA Qual (PCR) SARS-CoV-2 RNA (RT-PCR) Blood Type Antibody Screen Crossmatch 04/05/21 04/05/21 04/05/21 16:24 16:51 20:38 WBC RBC Hgb Hct MCV MCH MCHC RDW Plt Count MPV Immature Gran % (Auto) Neut % (Auto) Lymph % (Auto) [place] % (Auto) Eos % (Auto) Baso % (Auto) Lymph # (Auto) [place] # (Auto) Eos # (Auto) Baso # (Auto) Abs Immat Gran (auto) Absolute Neuts (auto) Absolute Nucleated RBC Nucleated RBC % (auto) Absolute Retic Percent Retic Immature Retic Fraction Retic Hgb Equivalent PT INR Sodium Potassium Chloride Carbon Dioxide Anion Gap BUN Creatinine Estim Creat Clear Calc Estimated GFR POC Glucose Random Glucose Calcium Magnesium Iron TIBC % Saturation Unsat Iron Binding Ferritin Total Bilirubin Direct Bilirubin AST ALT Alkaline Phosphatase Lactate Dehydrogenase Troponin I High Sens 13.6 D B-Natriuretic Peptide Cancelled Total Protein Albumin Vitamin B12 Folate Urine Color Urine Appearance Urine pH Ur Specific [place] Urine Protein Urine Glucose (UA) Urine Ketones Urine Blood Urine Nitrite Ur Leukocyte Esterase Urine RBC Urine WBC Ur Squamous Epith Cells Urine Bacteria Stool Occult Blood POSITIVE Influenza Type A (PCR) Influenza Type B (PCR) RSV RNA Qual (PCR) SARS-CoV-2 RNA (RT-PCR) Blood Type A Positive Antibody Screen NEGATIVE Crossmatch See Detail 04/05/21 04/05/21 04/06/21 20:45 22:29 07:09 WBC RBC Hgb Hct MCV MCH MCHC RDW Plt Count MPV Immature Gran % (Auto) Neut % (Auto) Lymph % (Auto) [place] % (Auto) Eos % (Auto) Baso % (Auto) Lymph # (Auto) [place] # (Auto) Eos # (Auto) Baso # (Auto) Abs Immat Gran (auto) Absolute Neuts (auto) Absolute Nucleated RBC Nucleated RBC % (auto) Absolute Retic Percent Retic Immature Retic Fraction Retic Hgb Equivalent PT INR Sodium Potassium Chloride Carbon Dioxide Anion Gap BUN Creatinine Estim Creat Clear Calc Estimated GFR POC Glucose 74 66 Random Glucose Calcium Magnesium Iron TIBC % Saturation Unsat Iron Binding Ferritin Total Bilirubin Direct Bilirubin AST ALT Alkaline Phosphatase Lactate Dehydrogenase Troponin I High Sens B-Natriuretic Peptide 52 Total Protein Albumin Vitamin B12 Folate Urine Color Urine Appearance Urine pH Ur Specific [place] Urine Protein Urine Glucose (UA) Urine Ketones Urine Blood Urine Nitrite Ur Leukocyte Esterase Urine RBC Urine WBC Ur Squamous Epith Cells Urine Bacteria Stool Occult Blood Influenza Type A (PCR) Influenza Type B (PCR) RSV RNA Qual (PCR) SARS-CoV-2 RNA (RT-PCR) Blood Type Antibody Screen Crossmatch 04/06/21 04/06/21 04/06/21 07:56 07:56 07:56 WBC RBC Hgb 10.1 L D Hct 32.0 L D MCV MCH MCHC RDW Plt Count MPV Immature Gran % (Auto) Neut % (Auto) Lymph % (Auto) [place] % (Auto) Eos % (Auto) Baso % (Auto) Lymph # (Auto) [place] # (Auto) Eos # (Auto) Baso # (Auto) Abs Immat Gran (auto) Absolute Neuts (auto) Absolute Nucleated RBC Nucleated RBC % (auto) Absolute Retic 0.051 Percent Retic 1.4 Immature Retic Fraction 22.8 H Retic Hgb Equivalent 24.8 L PT INR Sodium 141 Potassium 4.1 Chloride 113 H Carbon Dioxide 22 Anion Gap 10 L BUN 26 H Creatinine 1.01 Estim Creat Clear Calc 65.5 Estimated GFR 54 POC Glucose Random Glucose 67 Calcium 8.5 Magnesium Iron 132 TIBC 372 % Saturation 35 Unsat Iron Binding 240 Ferritin 22 Total Bilirubin Direct Bilirubin AST ALT Alkaline Phosphatase Lactate Dehydrogenase 219 Troponin I High Sens 7.0 B-Natriuretic Peptide Total Protein Albumin Vitamin B12 Folate Urine Color Urine Appearance Urine pH Ur Specific [place] Urine Protein Urine Glucose (UA) Urine Ketones Urine Blood Urine Nitrite Ur Leukocyte Esterase Urine RBC Urine WBC Ur Squamous Epith Cells Urine Bacteria Stool Occult Blood Influenza Type A (PCR) Influenza Type B (PCR) RSV RNA Qual (PCR) SARS-CoV-2 RNA (RT-PCR) Blood Type Antibody Screen Crossmatch 04/06/21 04/06/21 04/06/21 07:56 08:41 12:00 WBC RBC Hgb Hct MCV MCH MCHC RDW Plt Count MPV Immature Gran % (Auto) Neut % (Auto) Lymph % (Auto) [place] % (Auto) Eos % (Auto) Baso % (Auto) Lymph # (Auto) [place] # (Auto) Eos # (Auto) Baso # (Auto) Abs Immat Gran (auto) Absolute Neuts (auto) Absolute Nucleated RBC Nucleated RBC % (auto) Absolute Retic Percent Retic Immature Retic Fraction Retic Hgb Equivalent PT INR Sodium Potassium Chloride Carbon Dioxide Anion Gap BUN Creatinine Estim Creat Clear Calc Estimated GFR POC Glucose 90 155 H Random Glucose Calcium Magnesium Iron TIBC % Saturation Unsat Iron Binding Ferritin Total Bilirubin Direct Bilirubin AST ALT Alkaline Phosphatase Lactate Dehydrogenase Troponin I High Sens B-Natriuretic Peptide Total Protein Albumin Vitamin B12 514 Folate 8.1 Urine Color Urine Appearance Urine pH Ur Specific [place] Urine Protein Urine Glucose (UA) Urine Ketones Urine Blood Urine Nitrite Ur Leukocyte Esterase Urine RBC Urine WBC Ur Squamous Epith Cells Urine Bacteria Stool Occult Blood Influenza Type A (PCR) Influenza Type B (PCR) RSV RNA Qual (PCR) SARS-CoV-2 RNA (RT-PCR) Blood Type Antibody Screen Crossmatch 04/06/21 04/06/21 04/07/21 17:41 20:33 06:05 WBC RBC Hgb Hct MCV MCH MCHC RDW Plt Count MPV Immature Gran % (Auto) Neut % (Auto) Lymph % (Auto) [place] % (Auto) Eos % (Auto) Baso % (Auto) Lymph # (Auto) [place] # (Auto) Eos # (Auto) Baso # (Auto) Abs Immat Gran (auto) Absolute Neuts (auto) Absolute Nucleated RBC Nucleated RBC % (auto) Absolute Retic Percent Retic Immature Retic Fraction Retic Hgb Equivalent PT INR Sodium 139 Potassium 4.4 Chloride 114 H Carbon Dioxide 21 L Anion Gap 8 L BUN 27 H Creatinine 1.03 Estim Creat Clear Calc 64.2 Estimated GFR 53 POC Glucose 89 158 H Random Glucose 194 H Calcium 8.4 Magnesium Iron TIBC % Saturation Unsat Iron Binding Ferritin Total Bilirubin 0.5 Direct Bilirubin 0.3 AST 81 H ALT 46 H Alkaline Phosphatase 411 H Lactate Dehydrogenase Troponin I High Sens B-Natriuretic Peptide Total Protein 6.4 L Albumin 2.7 L Vitamin B12 Folate Urine Color Urine Appearance Urine pH Ur Specific [place] Urine Protein Urine Glucose (UA) Urine Ketones Urine Blood Urine Nitrite Ur Leukocyte Esterase Urine RBC Urine WBC Ur Squamous Epith Cells Urine Bacteria Stool Occult Blood Influenza Type A (PCR) Influenza Type B (PCR) RSV RNA Qual (PCR) SARS-CoV-2 RNA (RT-PCR) Blood Type Antibody Screen Crossmatch 04/07/21 04/07/21 04/07/21 06:05 07:02 11:21 WBC RBC Hgb 10.4 L Hct 32.9 L MCV MCH MCHC RDW Plt Count MPV Immature Gran % (Auto) Neut % (Auto) Lymph % (Auto) [place] % (Auto) Eos % (Auto) Baso % (Auto) Lymph # (Auto) [place] # (Auto) Eos # (Auto) Baso # (Auto) Abs Immat Gran (auto) Absolute Neuts (auto) Absolute Nucleated RBC Nucleated RBC % (auto) Absolute Retic Percent Retic Immature Retic Fraction Retic Hgb Equivalent PT INR Sodium Potassium Chloride Carbon Dioxide Anion Gap BUN Creatinine Estim Creat Clear Calc Estimated GFR POC Glucose 158 H 217 H Random Glucose Calcium Magnesium Iron TIBC % Saturation Unsat Iron Binding Ferritin Total Bilirubin Direct Bilirubin AST ALT Alkaline Phosphatase Lactate Dehydrogenase Troponin I High Sens B-Natriuretic Peptide Total Protein Albumin Vitamin B12 Folate Urine Color Urine Appearance Urine pH Ur Specific [place] Urine Protein Urine Glucose (UA) Urine Ketones Urine Blood Urine Nitrite Ur Leukocyte Esterase Urine RBC Urine WBC Ur Squamous Epith Cells Urine Bacteria Stool Occult Blood Influenza Type A (PCR) Influenza Type B (PCR) RSV RNA Qual (PCR) SARS-CoV-2 RNA (RT-PCR) Blood Type Antibody Screen Crossmatch 04/07/21 04/07/21 04/07/21 16:43 16:45 17:04 WBC RBC Hgb Hct MCV MCH MCHC RDW Plt Count MPV Immature Gran % (Auto) Neut % (Auto) Lymph % (Auto) [place] % (Auto) Eos % (Auto) Baso % (Auto) Lymph # (Auto) [place] # (Auto) Eos # (Auto) Baso # (Auto) Abs Immat Gran (auto) Absolute Neuts (auto) Absolute Nucleated RBC Nucleated RBC % (auto) Absolute Retic Percent Retic Immature Retic Fraction Retic Hgb Equivalent PT INR Sodium Potassium Chloride Carbon Dioxide Anion Gap BUN Creatinine Estim Creat Clear Calc Estimated GFR POC Glucose 59 L* 52 L* 74 Random Glucose Calcium Magnesium Iron TIBC % Saturation Unsat Iron Binding Ferritin Total Bilirubin Direct Bilirubin AST ALT Alkaline Phosphatase Lactate Dehydrogenase Troponin I High Sens B-Natriuretic Peptide Total Protein Albumin Vitamin B12 Folate Urine Color Urine Appearance Urine pH Ur Specific [place] Urine Protein Urine Glucose (UA) Urine Ketones Urine Blood Urine Nitrite Ur Leukocyte Esterase Urine RBC Urine WBC Ur Squamous Epith Cells Urine Bacteria Stool Occult Blood Influenza Type A (PCR) Influenza Type B (PCR) RSV RNA Qual (PCR) SARS-CoV-2 RNA (RT-PCR) Blood Type Antibody Screen Crossmatch 04/07/21 04/07/21 04/08/21 17:19 19:23 04:41 WBC 7.0 RBC 3.68 L D Hgb 10.3 L Hct 32.0 L MCV 87.0 MCH 28.0 MCHC 32.2 RDW 16.4 H Plt Count 266 MPV 10.3 Immature Gran % (Auto) 0.1 Neut % (Auto) 67.7 Lymph % (Auto) 17.0 L [place] % (Auto) 10.5 Eos % (Auto) 4.3 H Baso % (Auto) 0.4 Lymph # (Auto) 1.2 [place] # (Auto) 0.7 Eos # (Auto) 0.3 Baso # (Auto) 0.0 Abs Immat Gran (auto) 0.01 Absolute Neuts (auto) 4.8 Absolute Nucleated RBC 0.000 Nucleated RBC % (auto) 0.0 Absolute Retic Percent Retic Immature Retic Fraction Retic Hgb Equivalent PT INR Sodium Potassium Chloride Carbon Dioxide Anion Gap BUN Creatinine Estim Creat Clear Calc Estimated GFR POC Glucose 76 171 H Random Glucose Calcium Magnesium Iron TIBC % Saturation Unsat Iron Binding Ferritin Total Bilirubin Direct Bilirubin AST ALT Alkaline Phosphatase Lactate Dehydrogenase Troponin I High Sens B-Natriuretic Peptide Total Protein Albumin Vitamin B12 Folate Urine Color Urine Appearance Urine pH Ur Specific [place] Urine Protein Urine Glucose (UA) Urine Ketones Urine Blood Urine Nitrite Ur Leukocyte Esterase Urine RBC Urine WBC Ur Squamous Epith Cells Urine Bacteria Stool Occult Blood Influenza Type A (PCR) Influenza Type B (PCR) RSV RNA Qual (PCR) SARS-CoV-2 RNA (RT-PCR) Blood Type Antibody Screen Crossmatch 04/08/21 04/08/21 04/08/21 04:41 07:40 11:22 WBC RBC Hgb Cancelled Hct Cancelled MCV MCH MCHC RDW Plt Count MPV Immature Gran % (Auto) Neut % (Auto) Lymph % (Auto) [place] % (Auto) Eos % (Auto) Baso % (Auto) Lymph # (Auto) [place] # (Auto) Eos # (Auto) Baso # (Auto) Abs Immat Gran (auto) Absolute Neuts (auto) Absolute Nucleated RBC Nucleated RBC % (auto) Absolute Retic Percent Retic Immature Retic Fraction Retic Hgb Equivalent PT INR Sodium Potassium Chloride Carbon Dioxide Anion Gap BUN Creatinine Estim Creat Clear Calc Estimated GFR POC Glucose 73 91 Random Glucose Calcium Magnesium Iron TIBC % Saturation Unsat Iron Binding Ferritin Total Bilirubin Direct Bilirubin AST ALT Alkaline Phosphatase Lactate Dehydrogenase Troponin I High Sens B-Natriuretic Peptide Total Protein Albumin Vitamin B12 Folate Urine Color Urine Appearance Urine pH Ur Specific [place] Urine Protein Urine Glucose (UA) Urine Ketones Urine Blood Urine Nitrite Ur Leukocyte Esterase Urine RBC Urine WBC Ur Squamous Epith Cells Urine Bacteria Stool Occult Blood Influenza Type A (PCR) Influenza Type B (PCR) RSV RNA Qual (PCR) SARS-CoV-2 RNA (RT-PCR) Blood Type Antibody Screen Crossmatch 04/08/21 13:48 WBC RBC Hgb Hct MCV MCH MCHC RDW Plt Count MPV Immature Gran % (Auto) Neut % (Auto) Lymph % (Auto) [place] % (Auto) Eos % (Auto) Baso % (Auto) Lymph # (Auto) [place] # (Auto) Eos # (Auto) Baso # (Auto) Abs Immat Gran (auto) Absolute Neuts (auto) Absolute Nucleated RBC Nucleated RBC % (auto) Absolute Retic Percent Retic Immature Retic Fraction Retic Hgb Equivalent PT INR Sodium Potassium Chloride Carbon Dioxide Anion Gap BUN Creatinine Estim Creat Clear Calc Estimated GFR POC Glucose 113 Random Glucose Calcium Magnesium Iron TIBC % Saturation Unsat Iron Binding Ferritin Total Bilirubin Direct Bilirubin AST ALT Alkaline Phosphatase Lactate Dehydrogenase Troponin I High Sens B-Natriuretic Peptide Total Protein Albumin Vitamin B12 Folate Urine Color Urine Appearance Urine pH Ur Specific [place] Urine Protein Urine Glucose (UA) Urine Ketones Urine Blood Urine Nitrite Ur Leukocyte Esterase Urine RBC Urine WBC Ur Squamous Epith Cells Urine Bacteria Stool Occult Blood Influenza Type A (PCR) Influenza Type B (PCR) RSV RNA Qual (PCR) SARS-CoV-2 RNA (RT-PCR) Blood Type Antibody Screen Crossmatch Airway Mallampati Class: II (Edentulous) TM Dist: >3cm Neck ROM: Full Heart: rrr Lungs: cta Assessment and Plan Assessment Anesthesia Assessment: Anesthesia Plan Discussed and Chart Reviewed Final Anesthetic Review Family History of Problems with Anesthesia: No History of Problems with Anesthesia: No NPO: Yes ASA Class: III Final Preanesthetic Review: No Changes in Pt Med Stat, Meds/Allgs Chart Reviewed and Consent Obtained/Reviewed Patient Risk: Intermediate Procedure Risk: Intermediate Anesthetic Plan Anesthetic Plan: MAC: Disposition: Standard PACU
--- NOTE | 2021-04-08 14:11 | MHC.CM.PN ---
nurse caregivers homecare note electronic medical record reviewed along with case discussed on multiple disciplianry rounds, patient evaluated by the gadtroenterology. patient will be having upper endosxcope possibly today , npo iv fluids at 8o cc discharge plan home with self resumtpion of servcies for blowing engineer 30 hours weekly transportation daughter or inside contractor sales to provide transportation
--- NOTE | 2021-04-08 14:48 | PM.OP ---
Brief Operative Note Date of Service: 04/08/21 Pre-op diagnosis: ANEMIA, HEME POS STOOL Post-op diagnosis: same (PORTAL HYPERTENSIVE GASTROPATHY) Procedure: EGD Surgeon: Efrain Hernandez Anesthesia: MAC Was an Farm Machinery Mechanic used for this Procedure?: No Estimated blood loss (mL): 2 Pathology: other (ANTRAL BIOPSIES) Condition: stable Disposition: PACU
--- NOTE | 2021-04-08 14:49 | PM.EVENT ---
Event Note Date of Service: 04/08/21 Event Note: egd mild portal hypertensive gastropathy. no bleeding plan colonoscopy 04/09
--- NOTE | 2021-04-08 15:07 | HO.PM.IMPN ---
Subjective Subjective Date of Service: 04/08/21 Interval History: History obtained via tobacco stemmer machine, patient denies abdominal pain, no nausea no vomiting, no hematemesis, feels thirsty, no other acute issues overnight, NPO for upper endoscopy. Review of Systems Review of Systems: Yes all other systems are reviewed and are negative Physical Exam Vital Signs: Vital Signs: Last Vital Signs Temp 97.1 F 04/08/21 14:43 Pulse 67 04/08/21 14:43 Resp 20 04/08/21 14:43 BP 122/46 L 04/08/21 14:43 Pulse Ox 100 04/08/21 14:43 BMI result Body Mass Index 34.0 General: Awake alert stems 3, in no acute distress Neck: supple, no JVD Lungs: clear to auscultation bilaterally Heart: regular rate and rhythm, no murmurs Abd: soft, non-tender, non-distended, bowel sounds audible Ext: no edema Skin: warm/well-perfused Neuro: alert and oriented x3, no focal findings Psych: appropriate affect Objective Data Active Medications Acetaminophen (Acetaminophen 325 Mg Tablet) 650 mg PO Q6H PRN PRN Reason: Pain, Mild (Pain Scale 1-3) Last Admin: 04/06/21 05:19 Dose: 650 mg Documented by: ZECHARIAH Albuterol Sulfate (Albuterol Sulfate 90 Mcg 8 Gm Inhaler) 2 puff INHALE Q6H PRN PRN Reason: Wheezing Last Admin: 04/07/21 20:34 Dose: 2 puff Documented by: DRU Amlodipine Besylate (Amlodipine Besylate 2.5 Mg Tablet) 2.5 mg PO DAILY [facility]; Protocol Last Admin: 04/08/21 09:07 Dose: Not Given Documented by: ALBA Non-Admin Reason: NPO Atorvastatin Calcium (Atorvastatin Calcium 40 Mg Tablet) 40 mg PO BEDTIME [facility] Last Admin: 04/07/21 20:14 Dose: 40 mg Documented by: AIRAM Calcium Polycarbophil (Calcium Polycarbophil Tablet) 1 tab PO DAILY [facility] Last Admin: 04/08/21 09:07 Dose: Not Given Documented by: ALBA Non-Admin Reason: NPO Dextrose (Dextrose 50 % 25 Gm/50 Ml Vial) 25 gm IVPUSH Q15M PRN; Protocol PRN Reason: per Hypoglycemia Standing Ord. Docusate Sodium (Docusate Sodium 100 Mg Capsule) 100 mg PO DAILY PRN PRN Reason: Constipation Enalapril Maleate (Enalapril Maleate 5 Mg Tablet) 5 mg PO DAILY [facility]; Protocol Last Admin: 04/08/21 09:07 Dose: Not Given Documented by: ALBA Non-Admin Reason: NPO Escitalopram Oxalate (Escitalopram Oxalate 5 Mg Tablet) 5 mg PO DAILY [facility] Last Admin: 04/08/21 09:10 Dose: Not Given Documented by: ALBA Non-Admin Reason: NPO Glucose (Glucose Gel 15 Gm Gel..Gram.) 15 gm PO Q15M PRN; Protocol PRN Reason: per Hypoglycemia Standing Ord. Dextrose/Sodium Chloride (D51/2ns) 1,000 mls @ 80 mls/hr IVCONT .[id number] [facility] Last Admin: 04/08/21 10:52 Dose: 80 mls/hr Documented by: ALBA Insulin Glargine (Insulin Glargine,Hum.Rec.Anlog 100 Unit/Ml 10 Ml Vial) 32 unit SUBCUT DAILY [facility] Last Admin: 04/08/21 09:15 Dose: Not Given Documented by: ALBA Non-Admin Reason: NPO Insulin Human Lispro (Insulin Lispro 100 Unit/Ml 3 Ml Vial) 0 unit SUBCUT QIDACHS [facility]; Protocol Last Admin: 04/08/21 11:35 Dose: Not Given Documented by: ALBA Non-Admin Reason: No Insulin Coverage Loratadine (Loratadine 10 Mg Tablet) 10 mg PO DAILY PRN PRN Reason: Allergic Symptoms Melatonin (6) 6 mg PO BEDTIME PRN PRN Reason: Insomnia Metoprolol Tartrate (Metoprolol Tartrate 12.5 Mg Halftab) 12.5 mg PO DAILY [facility]; Protocol Last Admin: 04/08/21 09:10 Dose: Not Given Documented by: ALBA Non-Admin Reason: NPO Omeprazole (Omeprazole 40 Mg Capsule.Dr) 40 mg PO DAILY@0630 [facility] Last Admin: 04/08/21 06:04 Dose: Not Given Documented by: FARZANA Non-Admin Reason: NPO Ondansetron HCl (Ondansetron Hcl 4 Mg/2 Ml Vial) 4 mg IVPUSH Q8H PRN PRN Reason: Nausea and Vomiting Pharmacy Consult (Consult Rx Perform Med Rec) 1 each MISCELLANE ONCE PRN PRN Reason: Consult order Rifaximin (Rifaximin 550 Mg Tablet) 550 mg PO BID [facility] Last Admin: 04/08/21 09:11 Dose: Not Given Documented by: ALBA Non-Admin Reason: NPO Sodium Chloride (0.9 % Sodium Chloride Flush 3 Ml Syringe) 3 ml IVFLUSH QSHIFT [facility] Last Admin: 04/08/21 08:25 Dose: 3 ml Documented by: ALBA Sodium Chloride (Sodium Chloride 0.65 % Nasal 44 Ml Sprbtl) 1 spray NOSTRIL-B Q1H PRN PRN Reason: Nasal Congestion Last Admin: 04/08/21 13:40 Dose: 1 spray Documented by: ALBA Trazodone HCl (Trazodone Hcl 50 Mg Tablet) 50 mg PO BEDTIME [facility] Last Admin: 04/07/21 20:15 Dose: 50 mg Documented by: AIRAM Labs CBC & Chem 7: 04/08/21 04:41 04/07/21 06:05 Labs: Laboratory Results - last 24 hr 04/07/21 04/07/21 04/07/21 16:43 16:45 17:04 MCV MCH MCHC RDW Plt Count MPV Immature Gran % (Auto) Neut % (Auto) Lymph % (Auto) [place] % (Auto) Eos % (Auto) Baso % (Auto) Lymph # (Auto) [place] # (Auto) Eos # (Auto) Baso # (Auto) Abs Immat Gran (auto) Absolute Neuts (auto) Absolute Nucleated RBC Nucleated RBC % (auto) POC Glucose 59 L* 52 L* 74 04/07/21 04/07/21 04/08/21 17:19 19:23 04:41 MCV 87.0 MCH 28.0 MCHC 32.2 RDW 16.4 H Plt Count 266 MPV 10.3 Immature Gran % (Auto) 0.1 Neut % (Auto) 67.7 Lymph % (Auto) 17.0 L [place] % (Auto) 10.5 Eos % (Auto) 4.3 H Baso % (Auto) 0.4 Lymph # (Auto) 1.2 [place] # (Auto) 0.7 Eos # (Auto) 0.3 Baso # (Auto) 0.0 Abs Immat Gran (auto) 0.01 Absolute Neuts (auto) 4.8 Absolute Nucleated RBC 0.000 Nucleated RBC % (auto) 0.0 POC Glucose 76 171 H 04/08/21 04/08/21 04/08/21 07:40 11:22 13:48 MCV MCH MCHC RDW Plt Count MPV Immature Gran % (Auto) Neut % (Auto) Lymph % (Auto) [place] % (Auto) Eos % (Auto) Baso % (Auto) Lymph # (Auto) [place] # (Auto) Eos # (Auto) Baso # (Auto) Abs Immat Gran (auto) Absolute Neuts (auto) Absolute Nucleated RBC Nucleated RBC % (auto) POC Glucose 73 91 113 Assessment and Plan (1) Normocytic anemia: Status: Acute (2) Fecal occult blood test positive: Status: Acute Assessment and Plan: 70yo F with CAD s/p, CKD2-3, DM2 presented with dizziness, found to be markedly anemic and FOBT+ # normocytic anemia ,no acute blood loss noted - hematocrit stable, s/p 2u pRBCs transfused 04/05/21 - status post upper endoscopy that showed hypertensive gastropathy no active bleeding noted patient is scheduled for colonoscopy at a.m. Iron studies, B12 and folate within normal range Placed on clear liquids. Will DC IV fluid - hold DAPT # prior CVA - incidentally seen on CT head - resume DAPT once GI evaluation complete; continue high-intensity statin # dizziness/imbalance - PT consulted, plan home with VNA # elevated LFTs - undergoing outpt workup by [facility]; likely SOLO # CAD - hold DAPT given FOBT+ anemia - continue b-steff, SHAMIKA-I # HTN - BP stable continue amlodipine, metoprolol, and lisinopril # DM2, A1c 8.2 (02/05/21) - blood sugar around 100, continue basal/bolus insulin, since patient NPO after midnight will reduce dose of Lantus to 50% # CKD2-3 - SCr at baseline # mood disorder - trazodone, escitalopram # VTE ppx - SCDs # dispo - eventual home with VNA Quality Stroke Does the patient have a stroke diagnosis?: No VTE Prior VTE?: No VTE Risk Level:: Medical - moderate - high VTE Device Contraindication: Treatment Not Indicated VTE Drug Contraindication: N/A - Med Ordered
[2021-04-08 16:24] LABS: Glucose, Whole Blood 101 mg/dL (60-115)
[2021-04-08 19:29] LABS: Glucose, Whole Blood 170 mg/dL (60-115)
--- NOTE | 2021-04-08 20:30 | OP_ITS ---
SURGEON: Efrain Hernandez MD INDICATIONS: Anemia and Hemoccult-positive stools. PREOPERATIVE DIAGNOSIS: POSTOPERATIVE DIAGNOSIS: PROCEDURE PERFORMED: Upper endoscopy with biopsy. ESTIMATED BLOOD LOSS: COMPLICATIONS: ANESTHESIA: ASSISTANTS: SPECIMENS: MEDICATIONS: Monitored anesthesia care. DESCRIPTION OF PROCEDURE: History and physical performed. The risks and benefits of the procedure were explained to the patient. Informed consent was obtained. The patient was placed in the left lateral decubitus position. The Olympus video gastroscope was introduced into the esophagus, stomach, and duodenum. Examination was performed and the scope was removed. She tolerated the procedure well and was taken to recovery area in stable condition. FINDINGS: Esophagus: The esophagus was normal. There was no esophagitis. There were no varices. Stomach: The stomach showed very mild changes of portal hypertensive gastropathy. Biopsies were obtained from the antrum to rule out H pylori. Duodenum: The bulb and second portion were normal. IMPRESSION: Mild portal hypertensive gastropathy. RECOMMENDATIONS: 1. Follow up the biopsy results. 2. Colonoscopy to evaluate for any lower source of GI blood loss. MD TRANG Spaulding/LUCERO / [id number]
[2021-04-08] MEDS: traZODone HCL 50 MG TABLET PO (22:36)
[2021-04-08] MEDS: rifAXIMin 550 MG TABLET PO (22:36)
[2021-04-08] MEDS: Atorvastatin Calcium 40 MG TABLET PO (22:36)
[2021-04-08] MEDS: Insulin Lispro 100 UNIT/ML 3 ML VIAL SUBCUT (22:36)
[2021-04-09] VITALS (8 sets, daily range): BP systolic 131–188; BP diastolic 63–81; PULSE 59–77; RESP 17–18; TEMP 35.8–36.4; O2SAT 97–100
[2021-04-09] MEDS: 0.9 % Sodium Chloride Flush 3 ML SYRINGE IVFLUSH ×4 (00:11→21:26)
[2021-04-09] MEDS: Omeprazole 40 MG CAPSULE.DR PO (05:57)
[2021-04-09 07:16] LABS: Glucose, Whole Blood 96 mg/dL (60-115)
[2021-04-09] MEDS: Metoprolol Tartrate 12.5 MG HALFTAB PO (09:18)
[2021-04-09] MEDS: amLODIPine Besylate 2.5 MG TABLET PO (09:18)
[2021-04-09] MEDS: rifAXIMin 550 MG TABLET PO ×2 (09:18→21:26)
[2021-04-09] MEDS: Escitalopram Oxalate 5 MG TABLET PO (09:18)
[2021-04-09] MEDS: calcium polycarbophiL TABLET 1 TAB PO (09:19)
--- NOTE | 2021-04-09 11:07 | PM.GIPN ---
Subjective Subjective Date of Service: 04/09/21 Interval History: no complaints of discomfort Critical Care Time (minutes): 0 Physical Exam Vital Signs: Vital Signs: Last Vital Signs Temp 97.3 F 04/09/21 07:08 Pulse 75 04/09/21 09:40 Resp 18 04/09/21 07:08 BP 150/72 H 04/09/21 09:40 Pulse Ox 99 04/09/21 09:40 BMI result Body Mass Index 34.0 GI: Other: absomen is soft and nontender Objective Data Labs CBC & Chem 7: 04/08/21 04:41 04/07/21 06:05 Labs: Laboratory Results - last 24 hr 04/05/21 04/08/21 04/08/21 15:02 11:22 13:48 Smear Path Review POC Glucose 91 113 Blood Type Antibody Screen 04/08/21 04/08/21 04/09/21 16:20 19:15 07:07 Smear Path Review POC Glucose 101 170 H 96 Blood Type Antibody Screen 04/09/21 08:41 Smear Path Review POC Glucose Blood Type A Positive Antibody Screen NEGATIVE Procedures Date of Service Date of Service: 04/09/21 Progress Note: A&P Assessment and plan (1) Acute blood loss anemia: Status: Acute Assessment and Plan: She was not given a bowel prep yesterday. Plan for bowel prep today, clear liquids only, and npo after mn for colonoscopy tomorrow. Discussed with pt via hospital job interviewer, she understands and agrees to proceed. Discussed with nursing. Fall Risk Details Current Medications: Current Medications Acetaminophen (Acetaminophen 325 Mg Tablet) 650 mg PO Q6H PRN PRN Reason: Pain, Mild (Pain Scale 1-3) Last Admin: 04/06/21 05:19 Dose: 650 mg Documented by: Albuterol Sulfate (Albuterol Sulfate 90 Mcg 8 Gm Inhaler) 2 puff INHALE Q6H PRN PRN Reason: Wheezing Last Admin: 04/07/21 20:34 Dose: 2 puff Documented by: Amlodipine Besylate (Amlodipine Besylate 2.5 Mg Tablet) 2.5 mg PO DAILY [facility]; Protocol Last Admin: 04/09/21 09:18 Dose: 2.5 mg Documented by: Atorvastatin Calcium (Atorvastatin Calcium 40 Mg Tablet) 40 mg PO BEDTIME [facility] Last Admin: 04/08/21 22:36 Dose: 40 mg Documented by: Calcium Polycarbophil (Calcium Polycarbophil Tablet) 1 tab PO DAILY [facility] Last Admin: 04/09/21 09:19 Dose: 1 tab Documented by: Dextrose (Dextrose 50 % 25 Gm/50 Ml Vial) 25 gm IVPUSH Q15M PRN; Protocol PRN Reason: per Hypoglycemia Standing Ord. Docusate Sodium (Docusate Sodium 100 Mg Capsule) 100 mg PO DAILY PRN PRN Reason: Constipation Enalapril Maleate (Enalapril Maleate 5 Mg Tablet) 5 mg PO DAILY [facility]; Protocol Last Admin: 04/09/21 09:19 Dose: 5 mg Documented by: Escitalopram Oxalate (Escitalopram Oxalate 5 Mg Tablet) 5 mg PO DAILY [facility] Last Admin: 04/09/21 09:18 Dose: 5 mg Documented by: Glucose (Glucose Gel 15 Gm Gel..Gram.) 15 gm PO Q15M PRN; Protocol PRN Reason: per Hypoglycemia Standing Ord. Insulin Glargine (Insulin Glargine,Hum.Rec.Anlog 100 Unit/Ml 10 Ml Vial) 16 unit SUBCUT DAILY [facility] Insulin Human Lispro (Insulin Lispro 100 Unit/Ml 3 Ml Vial) 0 unit SUBCUT QIDACHS [facility]; Protocol Last Admin: 04/08/21 22:36 Dose: 2 unit Documented by: Loratadine (Loratadine 10 Mg Tablet) 10 mg PO DAILY PRN PRN Reason: Allergic Symptoms Melatonin (6) 6 mg PO BEDTIME PRN PRN Reason: Insomnia Last Admin: 04/08/21 22:36 Dose: 6 mg Documented by: Metoprolol Tartrate (Metoprolol Tartrate 12.5 Mg Halftab) 12.5 mg PO DAILY [facility]; Protocol Last Admin: 04/09/21 09:18 Dose: 12.5 mg Documented by: Omeprazole (Omeprazole 40 Mg Capsule.) 40 mg PO DAILY@0630 [facility] Last Admin: 04/09/21 05:57 Dose: 40 mg Documented by: Ondansetron HCl (Ondansetron Hcl 4 Mg/2 Ml Vial) 4 mg IVPUSH Q8H PRN PRN Reason: Nausea and Vomiting Pharmacy Consult (Consult Rx Perform Med Rec) 1 each MISCELLANE ONCE PRN PRN Reason: Consult order Rifaximin (Rifaximin 550 Mg Tablet) 550 mg PO BID [facility] Last Admin: 04/09/21 09:18 Dose: 550 mg Documented by: Sodium Chloride (0.9 % Sodium Chloride Flush 3 Ml Syringe) 3 ml IVFLUSH QSHIFT [facility] Last Admin: 04/09/21 09:19 Dose: 3 ml Documented by: Sodium Chloride (Sodium Chloride 0.65 % Nasal 44 Ml Sprbtl) 1 spray NOSTRIL-B Q1H PRN PRN Reason: Nasal Congestion Last Admin: 04/08/21 13:40 Dose: 1 spray Documented by: Trazodone HCl (Trazodone Hcl 50 Mg Tablet) 50 mg PO BEDTIME [facility] Last Admin: 04/08/21 22:36 Dose: 50 mg Documented by: Time Spent With Patient Time: Total time spent is greater than 50% in coordination of care (as documented) at patient's floor/unit and/or counseling patient: Time with patient: 15 - 24 minutes Quality Stroke Does the patient have a stroke diagnosis?: No VTE Prior VTE?: No VTE Risk Level:: Medical - moderate - high VTE Device Contraindication: Treatment Not Indicated VTE Drug Contraindication: N/A - Med Ordered
[2021-04-09 11:53] LABS: Glucose, Whole Blood 109 mg/dL (60-115)
[2021-04-09] MEDS: PEG 3350/Na Sulf,Bicarb,Cl/KCL 4,000 ML SOLN.RECON 240 ML PO (13:03)
--- NOTE | 2021-04-09 13:22 | HO.PM.IMPN ---
Subjective Subjective Date of Service: 04/09/21 Interval History: Patient was scheduled for colonoscopy this morning but however did not receive the prep therefore colonoscope be planned for tomorrow, patient denies abdominal pain no nausea no vomiting no other acute issues overnight. Review of Systems General no headache, no dizziness no fever chills. CVS no chest pain, no palpitation. Respiratory no cough, no sob. Gastrointestinal no nausea, no vomiting, no abdominal pain Review of Systems: Yes all other systems are reviewed and are negative Physical Exam Vital Signs: Vital Signs: Last Vital Signs Temp 96.8 F 04/09/21 11:16 Pulse 59 04/09/21 11:16 Resp 18 04/09/21 11:16 BP 131/64 04/09/21 11:16 Pulse Ox 100 04/09/21 11:16 BMI result Body Mass Index 34.0 General:? Awake al ert x 3, in no acu te distress Neck: supple, no JVD Mary gs: clear to auscu ltation bilaterall y Heart: regular r ate and rhythm, no murmurs Abd: soft , non-tender, non- distended, bowel s ounds audible Ext: no edema Skin: wa rm/well-perfused N euro: alert and or iented x3, no foca l findings Psych: appropriate affect Objective Data Active Medications Acetaminophen (Acetaminophen 325 Mg Tablet) 650 mg PO Q6H PRN PRN Reason: Pain, Mild (Pain Scale 1-3) Last Admin: 04/06/21 05:19 Dose: 650 mg Documented by: ZECHARIAH Albuterol Sulfate (Albuterol Sulfate 90 Mcg 8 Gm Inhaler) 2 puff INHALE Q6H PRN PRN Reason: Wheezing Last Admin: 04/07/21 20:34 Dose: 2 puff Documented by: DRU Amlodipine Besylate (Amlodipine Besylate 2.5 Mg Tablet) 2.5 mg PO DAILY [facility]; Protocol Last Admin: 04/09/21 09:18 Dose: 2.5 mg Documented by: LAUREN Atorvastatin Calcium (Atorvastatin Calcium 40 Mg Tablet) 40 mg PO BEDTIME [facility] Last Admin: 04/08/21 22:36 Dose: 40 mg Documented by: ISABEL Calcium Polycarbophil (Calcium Polycarbophil Tablet) 1 tab PO DAILY [facility] Last Admin: 04/09/21 09:19 Dose: 1 tab Documented by: LAUREN Dextrose (Dextrose 50 % 25 Gm/50 Ml Vial) 25 gm IVPUSH Q15M PRN; Protocol PRN Reason: per Hypoglycemia Standing Ord. Docusate Sodium (Docusate Sodium 100 Mg Capsule) 100 mg PO DAILY PRN PRN Reason: Constipation Enalapril Maleate (Enalapril Maleate 5 Mg Tablet) 5 mg PO DAILY [facility]; Protocol Last Admin: 04/09/21 09:19 Dose: 5 mg Documented by: LAUREN Escitalopram Oxalate (Escitalopram Oxalate 5 Mg Tablet) 5 mg PO DAILY [facility] Last Admin: 04/09/21 09:18 Dose: 5 mg Documented by: LAUREN Glucose (Glucose Gel 15 Gm Gel..Gram.) 15 gm PO Q15M PRN; Protocol PRN Reason: per Hypoglycemia Standing Ord. Insulin Glargine (Insulin Glargine,Hum.Rec.Anlog 100 Unit/Ml 10 Ml Vial) 16 unit SUBCUT DAILY [facility] Last Admin: 04/09/21 11:47 Dose: Not Given Documented by: SONIDO Non-Admin Reason: NPO Insulin Human Lispro (Insulin Lispro 100 Unit/Ml 3 Ml Vial) 0 unit SUBCUT QIDACHS [facility]; Protocol Last Admin: 04/09/21 12:08 Dose: Not Given Documented by: LAUREN Non-Admin Reason: bs 109 Loratadine (Loratadine 10 Mg Tablet) 10 mg PO DAILY PRN PRN Reason: Allergic Symptoms Melatonin (6) 6 mg PO BEDTIME PRN PRN Reason: Insomnia Last Admin: 04/08/21 22:36 Dose: 6 mg Documented by: ISABEL Metoprolol Tartrate (Metoprolol Tartrate 12.5 Mg Halftab) 12.5 mg PO DAILY [facility]; Protocol Last Admin: 04/09/21 09:18 Dose: 12.5 mg Documented by: LAUREN Omeprazole (Omeprazole 40 Mg Capsule.) 40 mg PO DAILY@0630 [facility] Last Admin: 04/09/21 05:57 Dose: 40 mg Documented by: ISABEL Ondansetron HCl (Ondansetron Hcl 4 Mg/2 Ml Vial) 4 mg IVPUSH Q8H PRN PRN Reason: Nausea and Vomiting Pharmacy Consult (Consult Rx Perform Med Rec) 1 each MISCELLANE ONCE PRN PRN Reason: Consult order Rifaximin (Rifaximin 550 Mg Tablet) 550 mg PO BID [facility] Last Admin: 04/09/21 09:18 Dose: 550 mg Documented by: LAUREN Sodium Chloride (0.9 % Sodium Chloride Flush 3 Ml Syringe) 3 ml IVFLUSH QSHIFT [facility] Last Admin: 04/09/21 09:19 Dose: 3 ml Documented by: LAUREN Sodium Chloride (Sodium Chloride 0.65 % Nasal 44 Ml Sprbtl) 1 spray NOSTRIL-B Q1H PRN PRN Reason: Nasal Congestion Last Admin: 04/08/21 13:40 Dose: 1 spray Documented by: ALBA Trazodone HCl (Trazodone Hcl 50 Mg Tablet) 50 mg PO BEDTIME [facility] Last Admin: 04/08/21 22:36 Dose: 50 mg Documented by: ISABEL Labs CBC & Chem 7: 04/08/21 04:41 04/07/21 06:05 Labs: Laboratory Results - last 24 hr 04/05/21 04/08/21 04/08/21 15:02 13:48 16:20 Smear Path Review POC Glucose 113 101 Blood Type Antibody Screen 04/08/21 04/09/21 04/09/21 19:15 07:07 08:41 Smear Path Review POC Glucose 170 H 96 Blood Type A Positive Antibody Screen NEGATIVE 04/09/21 11:47 Smear Path Review POC Glucose 109 Blood Type Antibody Screen Assessment and Plan (1) Normocytic anemia: Status: Acute (2) Fecal occult blood test positive: Status: Acute (3) Anemia: Status: Acute Assessment and Plan: 70yo F with CAD s/p, CKD2-3, DM2 presented with dizziness, found to be markedly anemic and FOBT+ # normocytic anemia ,no acute blood loss noted - hematocrit stable, s/p 2u pRBCs transfused 04/05/21 - status post upper endoscopy that showed hypertensive gastropathy no active bleeding noted patient is scheduled for colonoscopy tomorrow ? Iron studies, B12 and folate within normal range ? Placed on clear liquids,?bowl prep. - hold DAPT # prior CVA - incidentally seen on CT head - resume DAPT once GI evaluation complete; continue high-intensity statin # dizziness/imbalance - PT rec home with PT/VNA # elevated LFTs - undergoing outpt workup by [facility]; likely SOLO # CAD - hold DAPT given FOBT+ anemia - continue b-steff, SHAMIKA-I # HTN - BP stable continue amlodipine, metoprolol, and lisinopril # DM2, A1c 8.2 (02/05/21) - blood sugar around 100, continue basal/bolus insulin, since patient NPO after midnight will reduce dose of Lantus to 50% # CKD2-3 - SCr at baseline # mood disorder - trazodone, escitalopram # VTE ppx - SCDs # dispo - eventual home with VNA Quality Stroke Does the patient have a stroke diagnosis?: No VTE Prior VTE?: No VTE Risk Level:: Medical - moderate - high VTE Device Contraindication: Treatment Not Indicated VTE Drug Contraindication: N/A - Med Ordered
[2021-04-09] MEDS: PEG 3350/Na Sulf,Bicarb,Cl/KCL 4,000 ML SOLN.RECON 4000 ML PO (15:32)
[2021-04-09] MEDS: ondansetron HCL 4 MG/2 ML VIAL IVPUSH (15:40)
[2021-04-09] MEDS: Acetaminophen 325 MG TABLET 650 MG PO (15:41)
--- NOTE | 2021-04-09 15:51 | MHC.CM.PN ---
[facility]NAG[facility] ELECTRONIC MEDICAL RECORD REVIEWED . PER PHYSICIAN DOCUMENTATION PATIENT WAS SCHEDULED FPR COLONOSCOPY THIS MORNING HOWEVER DID NOT RECIVE THE BOWEL PRE , THUS [facility]AIN[facility] THIS TO PATIENT AND DAUGHTER WITH [employer] INTERPERTER , PATIENT WAS WILLING TO STAY AND HAVE BOWEL PREP TONIGHT And priocedure tomorrow discharge plan home alone has leonid velazquez resumption of her 30 hrs week [employer] services transportation daughter or [employer] relations recruiter will pick her up medicare immm 04/08/21 anticipate d/c tomorrow afteer procedure if stable
--- NOTE | 2021-04-09 17:18 | HO.POSTANES ---
Post Anesthesia Evaluation Post Anesthesia Evaluation Vital Signs: Vital Signs Temp Pulse Resp BP Pulse Ox 04/09/21 15:44 96.8 F 60 18 188/81 H 99 04/09/21 11:16 96.8 F 59 18 131/64 100 04/09/21 09:40 75 150/72 H 99 04/09/21 07:08 97.3 F 75 18 150/72 H 99 Anesthesia: Monitored Mental Status: Awake Pain Control: Satisfactory Nausea/Vomiting: None Hydration: Adequate Anesthesia-Related Issues: No Anes. Related Issues
[2021-04-09 17:48] LABS: Glucose, Whole Blood 232 mg/dL (60-115)
[2021-04-09] MEDS: Insulin Lispro 100 UNIT/ML 3 ML VIAL SUBCUT (17:56)
[2021-04-09] MEDS: traZODone HCL 50 MG TABLET PO (21:26)
[2021-04-09] MEDS: Atorvastatin Calcium 40 MG TABLET PO (21:26)
[2021-04-09 21:44] LABS: Glucose, Whole Blood 64 mg/dL (60-115)
[2021-04-09 22:00] LABS: Glucose, Whole Blood 71 mg/dL (60-115)
[2021-04-10] VITALS (9 sets, daily range): BP systolic 96–171; BP diastolic 43–67; PULSE 57–81; RESP 16–18; TEMP 36.4–36.8; O2SAT 97–99
[2021-04-10] MEDS: Omeprazole 40 MG CAPSULE.DR PO (05:52)
[2021-04-10] MEDS: 0.9 % Sodium Chloride Flush 3 ML SYRINGE IVFLUSH (07:15)
[2021-04-10 07:45] LABS: Glucose, Whole Blood 121 mg/dL (60-115)
[2021-04-10] MEDS: Escitalopram Oxalate 5 MG TABLET PO (08:40)
[2021-04-10] MEDS: Metoprolol Tartrate 12.5 MG HALFTAB PO (08:40)
[2021-04-10] MEDS: rifAXIMin 550 MG TABLET PO (08:40)
[2021-04-10] MEDS: amLODIPine Besylate 2.5 MG TABLET PO (08:40)
[2021-04-10 10:06] LABS: Glucose, Whole Blood 148 mg/dL (60-115)
--- NOTE | 2021-04-10 10:11 | PM.DS ---
DS: Providers Provider Date of Service: 04/10/21 Date of admission: 04/05/21 20:04 Date of discharge: 04/10/21 Primary care physician: Unknown Physician Consults: 04/05/21 20:08 Consult to Gastroenterology Routine Consulting Provider: Washington Swain Reason for consultation: GI bleed Has provider been notified: No DS: Diagnosis Discharge Diagnosis (1) Normocytic anemia: Status: Acute (2) Fecal occult blood test positive: Status: Acute (3) Anemia: Status: Acute DS: Summary Hospital Course Hospital Course: Chief Complaint: dizziness, difficulty with her balance ?this is a 70-year-old female with past medical history of diabetes, hypertension, GERD, hyperlipidemia, history of pancreatitis, presents to the hospital with complaints of dizziness, loss of balance.? She reports her symptoms started yesterday, she has difficulty with her balance, no headache, no change in vision chest pain, no palpitations, she has shortness of breath on exertion, has abdominal pain in the epigastric region, nonradiating, no nausea or vomiting, she is constipated.? Patient reports that she uses ibuprofen twice a day for the past 5 months for general? aches and pain.? She denies having any black tarry stools, no bright blood per rectum.? She otherwise denies any urinary symptoms and no lower extremity edema.? No numbness tingling or weakness in arms or legs. ? On arrival to the ED patient hemodynamically stable with no significant abnormal vitals Labs are significant for? WBC count of 7.3, hemoglobin of 6.7, hematocrit 21.5, creatinine of 1.47 with a baseline around 1.2-1.4, ?AST 89, ALT of 55, alk-phos of 435, occult stool positive, UA negative, COVID-19 negative ?head CT shows old right posterior parietal lobe and left inferior extent lobe infarct, no acute intracranial bleed or acute infarct Hospital course 70yo F with CAD s/p, CKD2-3, DM2, presented with dizziness, found to be markedly anemic and had stool guaiac positive, no acute blood was noted, patient received 2 units of packed RBC , repeat hematocrit remains stable Seen by Gastroenterology and underwent upper endoscopy that showed hypertensive gastropathy no active bleeding noted, therefore underwent colonoscopy,to the cecum with a hot snare polypectomy and placement of 2 Resolution clips, postprocedure patient tolerated diet and is being discharged home and recommended to resume aspirin and Brilinta from tomorrow, recommend close outpatient follow-up with Gastroenterology. Iron studies, B12 and folate are in normal range. ? History of CVA incidentally seen on CT head continue statins and antiplatelet therapy In regard to dizziness and imbalance patient seen by Physical therapy and they recommend PT Elevated LFTs patient undergoing workup by Gastroenterology likely [facility] In regard to hypertension and CAD recommend home medication DM2, A1c 8.2 (02/05/21), blood sugar around 100, reduce dose of home insulin recommend to follow blood sugar closely CKD2-3 renal function remained at baseline Mood disorder continue trazodone and escitalopram Time Spent with Patient Time attestation: Total time spent providing and/or coordinating discharge services: Discharge coordination time: Greater than 30 minutes Quality: Stroke Does the patient have a stroke diagnosis?: No Physical Exam Vital Signs: Vital Signs: Last Vital Signs Temp 98.2 F 04/10/21 11:53 Pulse 71 04/10/21 12:01 Resp 18 04/10/21 12:01 BP 146/49 H 04/10/21 12:01 Pulse Ox 98 04/10/21 13:52 BMI result Body Mass Index 34.0 General:? Awake alert x 3, in no acute distress Neck: supple, no JVD Lungs: clear to auscultation bilaterally Heart: regular rate and rhythm, no murmurs Abd: soft, non-tender, non-distended, bowel sounds audible Ext: no edema Skin: warm/well-perfused Neuro: alert and oriented x3, no focal findings Psych: appropriate affect DS: Data Data Completed and Pending Completed studies during hospitalization [Text1]: Pending at discharge 04/08/21 14:33 Surgical [PTH] Routine Pending studies at discharge: Pending at discharge 04/10/21 11:17 Surgical [PTH] Routine Labs on day of discharge: Laboratory Results - last 24 hr 04/10/21 12:46 POC Glucose 148 H Discharge Plan Discharge Patient Disposition: Home Health Service Discharge Diagnosis: Symptomatic anemia Referrals: [facility] [Outside] - 3-5 Days (HOME PHYSICAL THERAPY, IF YOU DO NOT HEAR FROM PHYSICAL THERAPIST OR NURSE BY NOON TOMORROW 04/11 PLEASE CALL [phone].) Physician,Unknown J [Primary Care Provider] - 1 Week Discharge Medications: Continued (DME) OneTouch Ultra Blue Test Strip Strip See Rx Instructions .ROUTE .MEDSUPPLY Qty: 150 RF: 6 trazodone 50 mg tablet 1 tab PO BEDTIME RF: 0 enalapril maleate 5 mg tablet 1 tab PO DAILY RF: 0 calcium polycarbophil [Fiber (calcium polycarbophil)] 625 mg tablet 1 tab PO DAILY RF: 0 escitalopram oxalate 5 mg tablet 1 tab PO DAILY RF: 0 ferrous fumarate [Ferrocite] 324 mg (106 mg iron) tablet 1 tab PO DAILY RF: 0 Xifaxan 550 mg tablet 1 tab PO BID RF: 0 insulin lispro [Humalog KwikPen Insulin] 100 unit/mL insulin pen 14 - 20 unit subcut TID 90 Days Qty: 60 RF: 1 (DME) FreeStyle Fatmata 2 Spencer Misc See Rx Instructions .ROUTE .MEDSUPPLY Qty: 1 RF: 0 (DME) FreeStyle Fatmata 2 Sensor Kit See Rx Instructions .ROUTE .MEDSUPPLY Qty: 2 RF: 11 metoprolol tartrate 25 mg tablet 12.5 mg PO DAILY RF: 0 amlodipine 2.5 mg tablet 2.5 mg PO DAILY RF: 0 albuterol sulfate [Ventolin HFA] 90 mcg/actuation HFA aerosol inhaler 2 puff inhalation Q6H PRN (Reason: Wheezing) RF: 0 famotidine 20 mg tablet 20 mg PO DAILY RF: 0 cholecalciferol (vitamin D3) 50 mcg (2,000 unit) capsule 2,000 unit PO DAILY RF: 0 All Day Allergy (cetirizine) 10 mg capsule 10 mg PO DAILY PRN (Reason: Allergic Symptoms) RF: 0 melatonin 5 mg capsule 5 mg PO BEDTIME PRN (Reason: Insomnia) RF: 0 Changed Toujeo Max U-300 SoloStar 300 unit/mL (3 mL) insulin pen 20 unit subcut DAILY Qty: 0 RF: 0 Held aspirin [Adult Aspirin Regimen] 81 mg tablet,delayed release (DR/EC) 81 mg PO DAILY RF: 0 Hold Instructions: Resume on 04/11/21. Brilinta 90 mg tablet 90 mg PO BID RF: 0 Hold Instructions: Resume on 04/11/21. Discharge Orders: Discharge Order (Routine); Ordered 04/10/21 Ordered By: Colby Yang Diet: diabetic diet Activity on Discharge: As tolerated Stand Alone Forms: Patient Portal Discharge page Care Plan Goals: Resume aspirin and Brilinta tomorrow 04/11, follow blood sugar closely, dose of Toujeo reduced due to low blood sugars, follow diabetic diet and follow blood sugars, hold insulin if noted to have low blood sugars, return to check with any lightheadedness dizziness or GI bleed Health Concerns: Continue all medications as above VNA and PT for unsteady gait Plan of Treatment: Outpatient follow-up with primary care physician in 1 week, outpatient follow-up with Gastroenterology in 2-4 weeks Assessment: As tolerated Discharge Date/Time: 04/10/21 15:58
--- NOTE | 2021-04-10 10:16 | HO.ANESPROP2 ---
HPI - Anesthesia Eval Consult details Narrative: 70 yo female patient for colonoscopy [facility] Active Problems Active Problems: All Active Problems (Updated 04/06/21 @ 12:46 by Juan Oneal MD) Acute blood loss anemia (Acute). S/p 2units of PRBC CVA (cerebral vascular accident) (Acute)- about a year ago. No residual. On brilinta. Last dose 04/05/21 Normocytic anemia (Acute) Anemia (Acute) Fecal occult blood test positive (Acute) Dizziness (Acute) SOB (shortness of breath) (Acute) CKD (chronic kidney disease) (Acute) Low blood pressure (Acute) Pancreatic cyst (Acute) GERD (gastroesophageal reflux disease) (Acute) LUQ abdominal pain (Acute) Chronic constipation (Acute) Elevated LFTs (Acute) Iron deficiency anemia (Acute) Type 2 diabetes mellitus with hyperglycemia (Acute) Type 2 diabetes mellitus with chronic kidney disease (Acute) Essential hypertension (Acute) Hyperlipidemia LDL goal <100 (Acute) Obesity (BMI 30-39.9) (Acute) Diabetes mellitus with hyperglycemia (Acute) Episodes of hypoglycemia Past Medical History Medical History Constipated Depression Diabetes mellitus with hyperglycemia Essential hypertension Hyperlipidemia LDL goal <100 Hypertriglyceridemia Obesity (BMI 30-39.9) Pancreatitis Type 2 diabetes mellitus with chronic kidney disease Type 2 diabetes mellitus with hyperglycemia Vitamin D deficiency Family History Family History Father No problems noted. Mother Diabetes mellitus CVD (cardiovascular disease) Sister Cancer Son Diabetes mellitus Family history of problems with anesthesia: No Surgical History Surgical History History of appendectomy History of esophagogastroduodenoscopy (EGD) Hx of cholecystectomy Hx of colonoscopy Hx of heart bypass surgery History of Problems with Anesthesia: No Social History Social History Household Members: None Housing: Apartment Housing Other:: [employer] services Do you presently have visiting nurse or other home services: No Alcohol intake: never Patient Tobacco Use Status: Never used Tobacco Advance Directives Date on File: 02/06/21 service: No Current occupational status: disabled Meds Allergies Allergy/AdvReac Type Severity Reaction Status Date / Time No Known Allergies Allergy Verified 04/05/21 09:24 [No Known Allergies*] Active Medications: Current Medications Acetaminophen (Acetaminophen 325 Mg Tablet) 650 mg PO Q6H PRN PRN Reason: Pain, Mild (Pain Scale 1-3) Last Admin: 04/09/21 15:41 Dose: 650 mg Documented by: Albuterol Sulfate (Albuterol Sulfate 90 Mcg 8 Gm Inhaler) 2 puff INHALE Q6H PRN PRN Reason: Wheezing Last Admin: 04/07/21 20:34 Dose: 2 puff Documented by: Amlodipine Besylate (Amlodipine Besylate 2.5 Mg Tablet) 2.5 mg PO DAILY [facility]; Protocol Last Admin: 04/10/21 08:40 Dose: 2.5 mg Documented by: Atorvastatin Calcium (Atorvastatin Calcium 40 Mg Tablet) 40 mg PO BEDTIME YOVANA Last Admin: 04/09/21 21:26 Dose: 40 mg Documented by: Calcium Polycarbophil (Calcium Polycarbophil Tablet) 1 tab PO DAILY [facility] Last Admin: 04/10/21 08:42 Dose: Not Given Documented by: Dextrose (Dextrose 50 % 25 Gm/50 Ml Vial) 25 gm IVPUSH Q15M PRN; Protocol PRN Reason: per Hypoglycemia Standing Ord. Docusate Sodium (Docusate Sodium 100 Mg Capsule) 100 mg PO DAILY PRN PRN Reason: Constipation Enalapril Maleate (Enalapril Maleate 5 Mg Tablet) 5 mg PO DAILY [facility]; Protocol Last Admin: 04/10/21 08:40 Dose: 5 mg Documented by: Escitalopram Oxalate (Escitalopram Oxalate 5 Mg Tablet) 5 mg PO DAILY [facility] Last Admin: 04/10/21 08:40 Dose: 5 mg Documented by: Glucose (Glucose Gel 15 Gm Gel..Gram.) 15 gm PO Q15M PRN; Protocol PRN Reason: per Hypoglycemia Standing Ord. Dextrose/Sodium Chloride (D5ns) 1,000 mls @ 50 mls/hr IVCONT .Q20H [facility] Insulin Human Lispro (Insulin Lispro 100 Unit/Ml 3 Ml Vial) 0 unit SUBCUT QIDACHS [facility]; Protocol Last Admin: 04/10/21 07:15 Dose: Not Given Documented by: Loratadine (Loratadine 10 Mg Tablet) 10 mg PO DAILY PRN PRN Reason: Allergic Symptoms Melatonin (6) 6 mg PO BEDTIME PRN PRN Reason: Insomnia Last Admin: 04/08/21 22:36 Dose: 6 mg Documented by: Metoprolol Tartrate (Metoprolol Tartrate 12.5 Mg Halftab) 12.5 mg PO DAILY [facility]; Protocol Last Admin: 04/10/21 08:40 Dose: 12.5 mg Documented by: Omeprazole (Omeprazole 40 Mg Capsule.Dr) 40 mg PO DAILY@0630 [facility] Last Admin: 04/10/21 05:52 Dose: 40 mg Documented by: Ondansetron HCl (Ondansetron Hcl 4 Mg/2 Ml Vial) 4 mg IVPUSH Q8H PRN PRN Reason: Nausea and Vomiting Last Admin: 04/09/21 15:40 Dose: 4 mg Documented by: Pharmacy Consult (Consult Rx Perform Med Rec) 1 each MISCELLANE ONCE PRN PRN Reason: Consult order Rifaximin (Rifaximin 550 Mg Tablet) 550 mg PO BID [facility] Last Admin: 04/10/21 08:40 Dose: 550 mg Documented by: Sodium Chloride (0.9 % Sodium Chloride Flush 3 Ml Syringe) 3 ml IVFLUSH QSHIFT [facility] Last Admin: 04/10/21 07:15 Dose: 3 ml Documented by: Sodium Chloride (Sodium Chloride 0.65 % Nasal 44 Ml Sprbtl) 1 spray NOSTRIL-B Q1H PRN PRN Reason: Nasal Congestion Last Admin: 04/08/21 13:40 Dose: 1 spray Documented by: Trazodone HCl (Trazodone Hcl 50 Mg Tablet) 50 mg PO BEDTIME [facility] Last Admin: 04/09/21 21:26 Dose: 50 mg Documented by: Home Medications Medication Instructions Recorded Confirmed Last Taken Type albuterol sulfate 90 mcg/actuation 2 puff INHALATION Q6H PRN 02/27/20 04/05/21 04/05/21 History aerosol inhaler (Ventolin HFA) amlodipine 2.5 mg tablet 2.5 mg PO DAILY 02/27/20 04/05/21 04/05/21 History aspirin 81 mg tablet,delayed 81 mg PO DAILY 02/27/20 04/05/21 04/05/21 History release (Adult Aspirin Regimen) cholecalciferol (vitamin D3) 50 2,000 unit PO DAILY cap 02/27/20 04/05/21 04/05/21 History mcg (2,000 unit) capsule famotidine 20 mg tablet 20 mg PO DAILY 02/27/20 04/05/21 04/05/21 History metoprolol tartrate 25 mg tablet 12.5 mg PO DAILY 02/27/20 04/05/21 04/05/21 History ticagrelor 90 mg tablet (Brilinta) 90 mg PO BID 02/27/20 04/05/21 04/05/21 History cetirizine 10 mg capsule (All Day 10 mg PO DAILY PRN cap 11/16/20 04/05/21 04/05/21 History Allergy (cetirizine)) melatonin 5 mg capsule 5 mg PO BEDTIME PRN cap 11/16/20 04/05/21 Unknown History calcium polycarbophil 625 mg 1 tab PO DAILY 02/05/21 04/05/21 04/05/21 History tablet (Fiber (calcium polycarbophil)) enalapril maleate 5 mg tablet 1 tab PO DAILY 02/05/21 04/05/21 04/05/21 History escitalopram oxalate 5 mg tablet 1 tab PO DAILY 02/05/21 04/05/21 04/05/21 History ferrous fumarate 324 mg (106 mg 1 tab PO DAILY 02/05/21 04/05/21 04/05/21 History iron) tablet (Ferrocite) insulin glargine U-300 conc 300 40 unit SUBCUT DAILY 02/05/21 04/05/21 04/05/21 History unit/mL (3 mL) subcutaneous pen (Toujeo Max U-300 SoloStar) rifaximin 550 mg tablet (Xifaxan) 1 tab PO BID 02/05/21 04/05/21 04/05/21 History trazodone 50 mg tablet 1 tab PO BEDTIME 04/05/21 04/05/21 04/05/21 History Exam Exam Date and Time: April 10, 2021 1016 Height,Weight and Vital Signs: Height 4 ft 9 in Weight 71.214 kg Last Vital Signs Temp 98.3 F 04/10/21 09:57 Pulse 79 04/10/21 09:57 Resp 18 04/10/21 09:57 BP 171/65 H 04/10/21 09:57 Pulse Ox 98 04/10/21 09:57 Pertinent Lab Results Pertinent Lab Results: Laboratory Tests 04/05/21 04/05/21 04/05/21 14:11 15:02 15:02 WBC 7.3 RBC 2.43 L Hgb 6.7 L* Hct 21.5 L MCV 88.5 MCH 27.6 MCHC 31.2 RDW 16.6 H Plt Count 274 MPV 10.9 Immature Gran % (Auto) 0.3 Neut % (Auto) 54.9 Lymph % (Auto) 32.1 [place] % (Auto) 8.4 Eos % (Auto) 3.8 Baso % (Auto) 0.5 Lymph # (Auto) 2.3 [place] # (Auto) 0.6 Eos # (Auto) 0.3 Baso # (Auto) 0.0 Abs Immat Gran (auto) 0.02 Absolute Neuts (auto) 4.0 Absolute Nucleated RBC 0.000 Nucleated RBC % (auto) 0.0 Smear Path Review Absolute Retic Percent Retic Immature Retic Fraction Retic Hgb Equivalent PT 12.3 INR 1.1 Sodium Potassium Chloride Carbon Dioxide Anion Gap BUN Creatinine Estim Creat Clear Calc Estimated GFR POC Glucose Random Glucose Calcium Magnesium Iron TIBC % Saturation Unsat Iron Binding Ferritin Total Bilirubin Direct Bilirubin AST ALT Alkaline Phosphatase Lactate Dehydrogenase Troponin I High Sens B-Natriuretic Peptide Total Protein Albumin Vitamin B12 Folate Urine Color Urine Appearance Urine pH Ur Specific [place] Urine Protein Urine Glucose (UA) Urine Ketones Urine Blood Urine Nitrite Ur Leukocyte Esterase Urine RBC Urine WBC Ur Squamous Epith Cells Urine Bacteria Stool Occult Blood Influenza Type A (PCR) NEGATIVE Influenza Type B (PCR) NEGATIVE RSV RNA Qual (PCR) NEGATIVE SARS-CoV-2 RNA (RT-PCR) NEGATIVE Blood Type Antibody Screen Crossmatch 04/05/21 04/05/21 04/05/21 15:02 15:02 15:36 WBC RBC Hgb Hct MCV MCH MCHC RDW Plt Count MPV Immature Gran % (Auto) Neut % (Auto) Lymph % (Auto) [place] % (Auto) Eos % (Auto) Baso % (Auto) Lymph # (Auto) [place] # (Auto) Eos # (Auto) Baso # (Auto) Abs Immat Gran (auto) Absolute Neuts (auto) Absolute Nucleated RBC Nucleated RBC % (auto) Smear Path Review Absolute Retic Percent Retic Immature Retic Fraction Retic Hgb Equivalent PT INR Sodium 135 Potassium 4.5 Chloride 109 H Carbon Dioxide 20 L Anion Gap 11 L BUN 39 H Creatinine 1.47 H Estim Creat Clear Calc 45.0 Estimated GFR 35 POC Glucose Random Glucose 180 H Calcium 8.4 Magnesium 2.1 Iron TIBC % Saturation Unsat Iron Binding Ferritin Total Bilirubin 0.5 Direct Bilirubin AST 89 H ALT 55 H Alkaline Phosphatase 435 H Lactate Dehydrogenase Troponin I High Sens 8.0 B-Natriuretic Peptide Total Protein 7.1 Albumin 3.2 L Vitamin B12 Folate Urine Color YELLOW Urine Appearance CLEAR Urine pH 5.5 Ur Specific [place] 1.020 Urine Protein 1+ H Urine Glucose (UA) 100 H Urine Ketones NEG Urine Blood TRACE Urine Nitrite NEG Ur Leukocyte Esterase NEG Urine RBC 0-2 Urine WBC 0 Ur Squamous Epith Cells 1+ Urine Bacteria 1+ Stool Occult Blood Influenza Type A (PCR) Influenza Type B (PCR) RSV RNA Qual (PCR) SARS-CoV-2 RNA (RT-PCR) Blood Type Antibody Screen Crossmatch 04/05/21 04/05/21 04/05/21 16:24 16:51 20:38 WBC RBC Hgb Hct MCV MCH MCHC RDW Plt Count MPV Immature Gran % (Auto) Neut % (Auto) Lymph % (Auto) [place] % (Auto) Eos % (Auto) Baso % (Auto) Lymph # (Auto) [place] # (Auto) Eos # (Auto) Baso # (Auto) Abs Immat Gran (auto) Absolute Neuts (auto) Absolute Nucleated RBC Nucleated RBC % (auto) Smear Path Review Absolute Retic Percent Retic Immature Retic Fraction Retic Hgb Equivalent PT INR Sodium Potassium Chloride Carbon Dioxide Anion Gap BUN Creatinine Estim Creat Clear Calc Estimated GFR POC Glucose Random Glucose Calcium Magnesium Iron TIBC % Saturation Unsat Iron Binding Ferritin Total Bilirubin Direct Bilirubin AST ALT Alkaline Phosphatase Lactate Dehydrogenase Troponin I High Sens 13.6 D B-Natriuretic Peptide Cancelled Total Protein Albumin Vitamin B12 Folate Urine Color Urine Appearance Urine pH Ur Specific [place] Urine Protein Urine Glucose (UA) Urine Ketones Urine Blood Urine Nitrite Ur Leukocyte Esterase Urine RBC Urine WBC Ur Squamous Epith Cells Urine Bacteria Stool Occult Blood POSITIVE Influenza Type A (PCR) Influenza Type B (PCR) RSV RNA Qual (PCR) SARS-CoV-2 RNA (RT-PCR) Blood Type A Positive Antibody Screen NEGATIVE Crossmatch See Detail 04/05/21 04/05/21 04/06/21 20:45 22:29 07:09 WBC RBC Hgb Hct MCV MCH MCHC RDW Plt Count MPV Immature Gran % (Auto) Neut % (Auto) Lymph % (Auto) [place] % (Auto) Eos % (Auto) Baso % (Auto) Lymph # (Auto) [place] # (Auto) Eos # (Auto) Baso # (Auto) Abs Immat Gran (auto) Absolute Neuts (auto) Absolute Nucleated RBC Nucleated RBC % (auto) Smear Path Review Absolute Retic Percent Retic Immature Retic Fraction Retic Hgb Equivalent PT INR Sodium Potassium Chloride Carbon Dioxide Anion Gap BUN Creatinine Estim Creat Clear Calc Estimated GFR POC Glucose 74 66 Random Glucose Calcium Magnesium Iron TIBC % Saturation Unsat Iron Binding Ferritin Total Bilirubin Direct Bilirubin AST ALT Alkaline Phosphatase Lactate Dehydrogenase Troponin I High Sens B-Natriuretic Peptide 52 Total Protein Albumin Vitamin B12 Folate Urine Color Urine Appearance Urine pH Ur Specific [place] Urine Protein Urine Glucose (UA) Urine Ketones Urine Blood Urine Nitrite Ur Leukocyte Esterase Urine RBC Urine WBC Ur Squamous Epith Cells Urine Bacteria Stool Occult Blood Influenza Type A (PCR) Influenza Type B (PCR) RSV RNA Qual (PCR) SARS-CoV-2 RNA (RT-PCR) Blood Type Antibody Screen Crossmatch 04/06/21 04/06/21 04/06/21 07:56 07:56 07:56 WBC RBC Hgb 10.1 L D Hct 32.0 L D MCV MCH MCHC RDW Plt Count MPV Immature Gran % (Auto) Neut % (Auto) Lymph % (Auto) [place] % (Auto) Eos % (Auto) Baso % (Auto) Lymph # (Auto) [place] # (Auto) Eos # (Auto) Baso # (Auto) Abs Immat Gran (auto) Absolute Neuts (auto) Absolute Nucleated RBC Nucleated RBC % (auto) Smear Path Review Absolute Retic 0.051 Percent Retic 1.4 Immature Retic Fraction 22.8 H Retic Hgb Equivalent 24.8 L PT INR Sodium 141 Potassium 4.1 Chloride 113 H Carbon Dioxide 22 Anion Gap 10 L BUN 26 H Creatinine 1.01 Estim Creat Clear Calc 65.5 Estimated GFR 54 POC Glucose Random Glucose 67 Calcium 8.5 Magnesium Iron 132 TIBC 372 % Saturation 35 Unsat Iron Binding 240 Ferritin 22 Total Bilirubin Direct Bilirubin AST ALT Alkaline Phosphatase Lactate Dehydrogenase 219 Troponin I High Sens 7.0 B-Natriuretic Peptide Total Protein Albumin Vitamin B12 Folate Urine Color Urine Appearance Urine pH Ur Specific [place] Urine Protein Urine Glucose (UA) Urine Ketones Urine Blood Urine Nitrite Ur Leukocyte Esterase Urine RBC Urine WBC Ur Squamous Epith Cells Urine Bacteria Stool Occult Blood Influenza Type A (PCR) Influenza Type B (PCR) RSV RNA Qual (PCR) SARS-CoV-2 RNA (RT-PCR) Blood Type Antibody Screen Crossmatch 04/06/21 04/06/21 04/06/21 07:56 08:41 12:00 WBC RBC Hgb Hct MCV MCH MCHC RDW Plt Count MPV Immature Gran % (Auto) Neut % (Auto) Lymph % (Auto) [place] % (Auto) Eos % (Auto) Baso % (Auto) Lymph # (Auto) [place] # (Auto) Eos # (Auto) Baso # (Auto) Abs Immat Gran (auto) Absolute Neuts (auto) Absolute Nucleated RBC Nucleated RBC % (auto) Smear Path Review Absolute Retic Percent Retic Immature Retic Fraction Retic Hgb Equivalent PT INR Sodium Potassium Chloride Carbon Dioxide Anion Gap BUN Creatinine Estim Creat Clear Calc Estimated GFR POC Glucose 90 155 H Random Glucose Calcium Magnesium Iron TIBC % Saturation Unsat Iron Binding Ferritin Total Bilirubin Direct Bilirubin AST ALT Alkaline Phosphatase Lactate Dehydrogenase Troponin I High Sens B-Natriuretic Peptide Total Protein Albumin Vitamin B12 514 Folate 8.1 Urine Color Urine Appearance Urine pH Ur Specific [place] Urine Protein Urine Glucose (UA) Urine Ketones Urine Blood Urine Nitrite Ur Leukocyte Esterase Urine RBC Urine WBC Ur Squamous Epith Cells Urine Bacteria Stool Occult Blood Influenza Type A (PCR) Influenza Type B (PCR) RSV RNA Qual (PCR) SARS-CoV-2 RNA (RT-PCR) Blood Type Antibody Screen Crossmatch 04/06/21 04/06/21 04/07/21 17:41 20:33 06:05 WBC RBC Hgb Hct MCV MCH MCHC RDW Plt Count MPV Immature Gran % (Auto) Neut % (Auto) Lymph % (Auto) [place] % (Auto) Eos % (Auto) Baso % (Auto) Lymph # (Auto) [place] # (Auto) Eos # (Auto) Baso # (Auto) Abs Immat Gran (auto) Absolute Neuts (auto) Absolute Nucleated RBC Nucleated RBC % (auto) Smear Path Review Absolute Retic Percent Retic Immature Retic Fraction Retic Hgb Equivalent PT INR Sodium 139 Potassium 4.4 Chloride 114 H Carbon Dioxide 21 L Anion Gap 8 L BUN 27 H Creatinine 1.03 Estim Creat Clear Calc 64.2 Estimated GFR 53 POC Glucose 89 158 H Random Glucose 194 H Calcium 8.4 Magnesium Iron TIBC % Saturation Unsat Iron Binding Ferritin Total Bilirubin 0.5 Direct Bilirubin 0.3 AST 81 H ALT 46 H Alkaline Phosphatase 411 H Lactate Dehydrogenase Troponin I High Sens B-Natriuretic Peptide Total Protein 6.4 L Albumin 2.7 L Vitamin B12 Folate Urine Color Urine Appearance Urine pH Ur Specific [place] Urine Protein Urine Glucose (UA) Urine Ketones Urine Blood Urine Nitrite Ur Leukocyte Esterase Urine RBC Urine WBC Ur Squamous Epith Cells Urine Bacteria Stool Occult Blood Influenza Type A (PCR) Influenza Type B (PCR) RSV RNA Qual (PCR) SARS-CoV-2 RNA (RT-PCR) Blood Type Antibody Screen Crossmatch 04/07/21 04/07/21 04/07/21 06:05 07:02 11:21 WBC RBC Hgb 10.4 L Hct 32.9 L MCV MCH MCHC RDW Plt Count MPV Immature Gran % (Auto) Neut % (Auto) Lymph % (Auto) [place] % (Auto) Eos % (Auto) Baso % (Auto) Lymph # (Auto) [place] # (Auto) Eos # (Auto) Baso # (Auto) Abs Immat Gran (auto) Absolute Neuts (auto) Absolute Nucleated RBC Nucleated RBC % (auto) Smear Path Review Absolute Retic Percent Retic Immature Retic Fraction Retic Hgb Equivalent PT INR Sodium Potassium Chloride Carbon Dioxide Anion Gap BUN Creatinine Estim Creat Clear Calc Estimated GFR POC Glucose 158 H 217 H Random Glucose Calcium Magnesium Iron TIBC % Saturation Unsat Iron Binding Ferritin Total Bilirubin Direct Bilirubin AST ALT Alkaline Phosphatase Lactate Dehydrogenase Troponin I High Sens B-Natriuretic Peptide Total Protein Albumin Vitamin B12 Folate Urine Color Urine Appearance Urine pH Ur Specific [place] Urine Protein Urine Glucose (UA) Urine Ketones Urine Blood Urine Nitrite Ur Leukocyte Esterase Urine RBC Urine WBC Ur Squamous Epith Cells Urine Bacteria Stool Occult Blood Influenza Type A (PCR) Influenza Type B (PCR) RSV RNA Qual (PCR) SARS-CoV-2 RNA (RT-PCR) Blood Type Antibody Screen Crossmatch 04/07/21 04/07/21 04/07/21 16:43 16:45 17:04 WBC RBC Hgb Hct MCV MCH MCHC RDW Plt Count MPV Immature Gran % (Auto) Neut % (Auto) Lymph % (Auto) [place] % (Auto) Eos % (Auto) Baso % (Auto) Lymph # (Auto) [place] # (Auto) Eos # (Auto) Baso # (Auto) Abs Immat Gran (auto) Absolute Neuts (auto) Absolute Nucleated RBC Nucleated RBC % (auto) Smear Path Review Absolute Retic Percent Retic Immature Retic Fraction Retic Hgb Equivalent PT INR Sodium Potassium Chloride Carbon Dioxide Anion Gap BUN Creatinine Estim Creat Clear Calc Estimated GFR POC Glucose 59 L* 52 L* 74 Random Glucose Calcium Magnesium Iron TIBC % Saturation Unsat Iron Binding Ferritin Total Bilirubin Direct Bilirubin AST ALT Alkaline Phosphatase Lactate Dehydrogenase Troponin I High Sens B-Natriuretic Peptide Total Protein Albumin Vitamin B12 Folate Urine Color Urine Appearance Urine pH Ur Specific [place] Urine Protein Urine Glucose (UA) Urine Ketones Urine Blood Urine Nitrite Ur Leukocyte Esterase Urine RBC Urine WBC Ur Squamous Epith Cells Urine Bacteria Stool Occult Blood Influenza Type A (PCR) Influenza Type B (PCR) RSV RNA Qual (PCR) SARS-CoV-2 RNA (RT-PCR) Blood Type Antibody Screen Crossmatch 04/07/21 04/07/21 04/08/21 17:19 19:23 04:41 WBC 7.0 RBC 3.68 L D Hgb 10.3 L Hct 32.0 L MCV 87.0 MCH 28.0 MCHC 32.2 RDW 16.4 H Plt Count 266 MPV 10.3 Immature Gran % (Auto) 0.1 Neut % (Auto) 67.7 Lymph % (Auto) 17.0 L [place] % (Auto) 10.5 Eos % (Auto) 4.3 H Baso % (Auto) 0.4 Lymph # (Auto) 1.2 [place] # (Auto) 0.7 Eos # (Auto) 0.3 Baso # (Auto) 0.0 Abs Immat Gran (auto) 0.01 Absolute Neuts (auto) 4.8 Absolute Nucleated RBC 0.000 Nucleated RBC % (auto) 0.0 Smear Path Review Absolute Retic Percent Retic Immature Retic Fraction Retic Hgb Equivalent PT INR Sodium Potassium Chloride Carbon Dioxide Anion Gap BUN Creatinine Estim Creat Clear Calc Estimated GFR POC Glucose 76 171 H Random Glucose Calcium Magnesium Iron TIBC % Saturation Unsat Iron Binding Ferritin Total Bilirubin Direct Bilirubin AST ALT Alkaline Phosphatase Lactate Dehydrogenase Troponin I High Sens B-Natriuretic Peptide Total Protein Albumin Vitamin B12 Folate Urine Color Urine Appearance Urine pH Ur Specific [place] Urine Protein Urine Glucose (UA) Urine Ketones Urine Blood Urine Nitrite Ur Leukocyte Esterase Urine RBC Urine WBC Ur Squamous Epith Cells Urine Bacteria Stool Occult Blood Influenza Type A (PCR) Influenza Type B (PCR) RSV RNA Qual (PCR) SARS-CoV-2 RNA (RT-PCR) Blood Type Antibody Screen Crossmatch 04/08/21 04/08/21 04/08/21 04:41 07:40 11:22 WBC RBC Hgb Cancelled Hct Cancelled MCV MCH MCHC RDW Plt Count MPV Immature Gran % (Auto) Neut % (Auto) Lymph % (Auto) [place] % (Auto) Eos % (Auto) Baso % (Auto) Lymph # (Auto) [place] # (Auto) Eos # (Auto) Baso # (Auto) Abs Immat Gran (auto) Absolute Neuts (auto) Absolute Nucleated RBC Nucleated RBC % (auto) Smear Path Review Absolute Retic Percent Retic Immature Retic Fraction Retic Hgb Equivalent PT INR Sodium Potassium Chloride Carbon Dioxide Anion Gap BUN Creatinine Estim Creat Clear Calc Estimated GFR POC Glucose 73 91 Random Glucose Calcium Magnesium Iron TIBC % Saturation Unsat Iron Binding Ferritin Total Bilirubin Direct Bilirubin AST ALT Alkaline Phosphatase Lactate Dehydrogenase Troponin I High Sens B-Natriuretic Peptide Total Protein Albumin Vitamin B12 Folate Urine Color Urine Appearance Urine pH Ur Specific [place] Urine Protein Urine Glucose (UA) Urine Ketones Urine Blood Urine Nitrite Ur Leukocyte Esterase Urine RBC Urine WBC Ur Squamous Epith Cells Urine Bacteria Stool Occult Blood Influenza Type A (PCR) Influenza Type B (PCR) RSV RNA Qual (PCR) SARS-CoV-2 RNA (RT-PCR) Blood Type Antibody Screen Crossmatch 04/08/21 04/08/21 04/08/21 13:48 16:20 19:15 WBC RBC Hgb Hct MCV MCH MCHC RDW Plt Count MPV Immature Gran % (Auto) Neut % (Auto) Lymph % (Auto) [place] % (Auto) Eos % (Auto) Baso % (Auto) Lymph # (Auto) [place] # (Auto) Eos # (Auto) Baso # (Auto) Abs Immat Gran (auto) Absolute Neuts (auto) Absolute Nucleated RBC Nucleated RBC % (auto) Smear Path Review Absolute Retic Percent Retic Immature Retic Fraction Retic Hgb Equivalent PT INR Sodium Potassium Chloride Carbon Dioxide Anion Gap BUN Creatinine Estim Creat Clear Calc Estimated GFR POC Glucose 113 101 170 H Random Glucose Calcium Magnesium Iron TIBC % Saturation Unsat Iron Binding Ferritin Total Bilirubin Direct Bilirubin AST ALT Alkaline Phosphatase Lactate Dehydrogenase Troponin I High Sens B-Natriuretic Peptide Total Protein Albumin Vitamin B12 Folate Urine Color Urine Appearance Urine pH Ur Specific [place] Urine Protein Urine Glucose (UA) Urine Ketones Urine Blood Urine Nitrite Ur Leukocyte Esterase Urine RBC Urine WBC Ur Squamous Epith Cells Urine Bacteria Stool Occult Blood Influenza Type A (PCR) Influenza Type B (PCR) RSV RNA Qual (PCR) SARS-CoV-2 RNA (RT-PCR) Blood Type Antibody Screen Crossmatch 04/09/21 04/09/21 04/09/21 07:07 08:41 11:47 WBC RBC Hgb Hct MCV MCH MCHC RDW Plt Count MPV Immature Gran % (Auto) Neut % (Auto) Lymph % (Auto) [place] % (Auto) Eos % (Auto) Baso % (Auto) Lymph # (Auto) [place] # (Auto) Eos # (Auto) Baso # (Auto) Abs Immat Gran (auto) Absolute Neuts (auto) Absolute Nucleated RBC Nucleated RBC % (auto) Smear Path Review Absolute Retic Percent Retic Immature Retic Fraction Retic Hgb Equivalent PT INR Sodium Potassium Chloride Carbon Dioxide Anion Gap BUN Creatinine Estim Creat Clear Calc Estimated GFR POC Glucose 96 109 Random Glucose Calcium Magnesium Iron TIBC % Saturation Unsat Iron Binding Ferritin Total Bilirubin Direct Bilirubin AST ALT Alkaline Phosphatase Lactate Dehydrogenase Troponin I High Sens B-Natriuretic Peptide Total Protein Albumin Vitamin B12 Folate Urine Color Urine Appearance Urine pH Ur Specific [place] Urine Protein Urine Glucose (UA) Urine Ketones Urine Blood Urine Nitrite Ur Leukocyte Esterase Urine RBC Urine WBC Ur Squamous Epith Cells Urine Bacteria Stool Occult Blood Influenza Type A (PCR) Influenza Type B (PCR) RSV RNA Qual (PCR) SARS-CoV-2 RNA (RT-PCR) Blood Type A Positive Antibody Screen NEGATIVE Crossmatch 04/09/21 04/09/21 04/09/21 17:30 21:33 21:55 WBC RBC Hgb Hct MCV MCH MCHC RDW Plt Count MPV Immature Gran % (Auto) Neut % (Auto) Lymph % (Auto) [place] % (Auto) Eos % (Auto) Baso % (Auto) Lymph # (Auto) [place] # (Auto) Eos # (Auto) Baso # (Auto) Abs Immat Gran (auto) Absolute Neuts (auto) Absolute Nucleated RBC Nucleated RBC % (auto) Smear Path Review Absolute Retic Percent Retic Immature Retic Fraction Retic Hgb Equivalent PT INR Sodium Potassium Chloride Carbon Dioxide Anion Gap BUN Creatinine Estim Creat Clear Calc Estimated GFR POC Glucose 232 H 64 71 Random Glucose Calcium Magnesium Iron TIBC % Saturation Unsat Iron Binding Ferritin Total Bilirubin Direct Bilirubin AST ALT Alkaline Phosphatase Lactate Dehydrogenase Troponin I High Sens B-Natriuretic Peptide Total Protein Albumin Vitamin B12 Folate Urine Color Urine Appearance Urine pH Ur Specific [place] Urine Protein Urine Glucose (UA) Urine Ketones Urine Blood Urine Nitrite Ur Leukocyte Esterase Urine RBC Urine WBC Ur Squamous Epith Cells Urine Bacteria Stool Occult Blood Influenza Type A (PCR) Influenza Type B (PCR) RSV RNA Qual (PCR) SARS-CoV-2 RNA (RT-PCR) Blood Type Antibody Screen Crossmatch 04/10/21 04/10/21 07:15 09:59 WBC RBC Hgb Hct MCV MCH MCHC RDW Plt Count MPV Immature Gran % (Auto) Neut % (Auto) Lymph % (Auto) [place] % (Auto) Eos % (Auto) Baso % (Auto) Lymph # (Auto) [place] # (Auto) Eos # (Auto) Baso # (Auto) Abs Immat Gran (auto) Absolute Neuts (auto) Absolute Nucleated RBC Nucleated RBC % (auto) Smear Path Review Absolute Retic Percent Retic Immature Retic Fraction Retic Hgb Equivalent PT INR Sodium Potassium Chloride Carbon Dioxide Anion Gap BUN Creatinine Estim Creat Clear Calc Estimated GFR POC Glucose 121 H 148 H Random Glucose Calcium Magnesium Iron TIBC % Saturation Unsat Iron Binding Ferritin Total Bilirubin Direct Bilirubin AST ALT Alkaline Phosphatase Lactate Dehydrogenase Troponin I High Sens B-Natriuretic Peptide Total Protein Albumin Vitamin B12 Folate Urine Color Urine Appearance Urine pH Ur Specific [place] Urine Protein Urine Glucose (UA) Urine Ketones Urine Blood Urine Nitrite Ur Leukocyte Esterase Urine RBC Urine WBC Ur Squamous Epith Cells Urine Bacteria Stool Occult Blood Influenza Type A (PCR) Influenza Type B (PCR) RSV RNA Qual (PCR) SARS-CoV-2 RNA (RT-PCR) Blood Type Antibody Screen Crossmatch Airway Mallampati Class: II TM Dist: >3cm Neck ROM: Full Loose/Missing/Broken Teeth: Yes (No teeth) Heart: RRR Lungs: CTAB Assessment and Plan Assessment Anesthesia Assessment: Anesthesia Plan Discussed and Chart Reviewed Final Anesthetic Review Family History of Problems with Anesthesia: No History of Problems with Anesthesia: No NPO: Yes ASA Class: III Final Preanesthetic Review: No Changes in Pt Med Stat, Meds/Allgs Chart Reviewed, Consent Obtained/Reviewed and Anes Risks/Benef Reviewed Patient Risk: Intermediate Procedure Risk: Low Assessment/Block/Sedation in SS: Assess/Block/Sedation-SS Anesthetic Plan Anesthetic Plan: MAC: Disposition: Standard PACU and Inp. Admit - Standard Bed
--- NOTE | 2021-04-10 11:36 | MHC.CM.PN ---
PER MUTLIDISCIPLINARY ROUNDS PT TO HAVE COLONOSCOPY TODAY AND DEPENDING ON RESULTS WILL PLAN D/C. CM TO CONT TO FOLLOW.
--- NOTE | 2021-04-10 11:39 | PM.EVENT ---
Event Note Date of Service: 04/10/21 Event Note: GI-Colonoscopy to the cecum-Full note dictated Findings: 1. Approx 10-12 mm polyp at 20cm removed with hot snare polypectomy--2 Resolution clips placed with good hemostasis 2 Sigmoid diverticulosis 3. Internal hemorrhoids 4. Edematous colon c/w her underlying cirrhosis Rec: Advance diet. Her Brilinta and/or aspirin can be resumed on , 04/11/2021. Continue PPI. She can be discharged from a GI standpoint. Thanks
--- NOTE | 2021-04-10 11:43 | P.BOP_ITS ---
Brief Operative Note Date of Service: 04/10/21 Pre-op diagnosis: Anemia, Heme + stool Post-op diagnosis: other (Colon polyp) Procedure: Colonoscopy to the cecum with a hot snare polypectomy and placement of 2 Resolution clips Surgeon: Washington Swain Anesthesia: MAC Was an Weapons Designer used for this Procedure?: No Estimated blood loss (mL): 0 Pathology: other (A. Polyp at 20cm) Condition: stable Disposition: PACU
[2021-04-10 12:54] LABS: Glucose, Whole Blood 148 mg/dL (60-115)
--- NOTE | 2021-04-10 13:34 | W.MHC.F2F ---
Service Date Service Date: 04/10/21 Encounter Date of encounter: 04/10/21 Reasons for Services Signs and symptoms assessed: Anemia/dizziness Reason for physical therapy: home safety and mobility and gait/transfer training Homebound: Leaving the home is medically contraindicated at this time without the asist of a device and/or another person due th the listed conditions above and below. Certification: Based on the above findings, I certify that this patient is confined to the home and needs intermittent care home care, physical therapy and/or speech therapy, or continues to need occupational therapy. The patient is under my care, and I have initiated the establishment of the plan of care. The patient will be followed by a physician who will periodically review the plan of care.
--- NOTE | 2021-04-10 14:31 | MHC.CM.PN ---
PT DISCHARGING HOME W/RESUMP OF [employer] HRS AND NEW [facility] FOR HOME PT, PT HAS FAMILY/OVEN [employer] FOR TRANSPORT.
--- NOTE | 2021-04-10 20:55 | OP_ITS ---
SURGEON: Washington Swain MD INDICATIONS: The patient presents for evaluation of anemia and heme-positive stool. Full consent has been obtained from her for this, including risks of bleeding and perforation. PREOPERATIVE DIAGNOSIS: POSTOPERATIVE DIAGNOSIS: PROCEDURE PERFORMED: Colonoscopy to the cecum with hot snare polypectomy and placement of 2 resolution clips. ESTIMATED BLOOD LOSS: COMPLICATIONS: ANESTHESIA: Monitored anesthesia care. ASSISTANTS: SPECIMENS: PREOPERATIVE DIAGNOSES: Anemia and heme-positive stool. POSTOPERATIVE DIAGNOSES: Anemia and heme-positive stool, colon polyp, diverticulosis, internal hemorrhoids, and some edema of colon consistent with her underlying cirrhosis. DESCRIPTION OF PROCEDURE: The patient was placed in the left lateral decubitus position. The digital rectal exam revealed no abnormalities. The Olympus video pediatric colonoscope was entered into the rectum and advanced easily to the cecum. Once in the cecum, I did identify cecal pouch with appendiceal orifice and a normal-appearing ileocecal valve. The entire cecum was well visualized and appeared normal other than a somewhat edematous mucosa. There was no sign of any mass nor ulceration. The scope was then slowly withdrawn assessing all mucosal surfaces carefully. Preparation throughout the colon was for the most part good, but there was fair amount of liquid stool, which had to be irrigated and suctioned away as best as possible. I did not visualize any sign of angiodysplasias nor colitis. However, most of the colon did appear somewhat edematous consistent with her underlying cirrhosis. At 20 cm, was an approximately 10 to 12 mm grossly adenomatous polyp, which was snared with a hot snare and recovered by suction. The polypectomy site appeared clean, without any sign of residual polyp nor bleeding. Two resolution clips were applied with good deployment and good hemostasis due to her underlying cirrhosis and the fact that she may have to go back on her Brilinta for the underlying coronary artery disease. I did not visualize any other polyps. There was a mild amount of sigmoid diverticulosis. In the rectum, scope was retroflexed visualizing some internal hemorrhoids. Again, the rectal mucosa did appear somewhat edematous, but there was no sign of any lesions. The scope was withdrawn from the patient. She tolerated the procedure well and was returned to the recovery area in stable condition. IMPRESSION: 1. Colon polyp, status post hot snare polypectomy and placement of 2 resolution clips. 2. Diverticulosis. 3. Internal hemorrhoids. 4. Somewhat edematous appearing colon consistent with the underlying portal hypertension. PLAN: The results of the pathology will be checked. Given the minimal findings and her age, I do not think she will need any further screening colonoscopies. She could go back on her Brilinta for the underlying coronary artery disease in the next 24 to 48 hours. Her blood count will need to be followed. I would start her on iron replacement. MD TRACEY Nascimento/LUCERO / [id number]
--- NOTE | 2021-04-11 14:33 | MHC.CM.PN ---
CM RECEIVED MESSAGE FROM [facility] THAT PT WAS ACTIVE W/[facility], REFERRAL RESENT TO [facility].
== END 2021-04-10 15:58 | disposition home health service (06) | DRG 378 ==
LOC: HO.ED 20:06 → HO.EDOVER 20:18 → HO.S3 04-06 15:08
PROVIDERS: Family Medicine; Internal Medicine; Internal Medicine Gastroenterology; Physician Assistant Medical; Admitting Provider Internal Medicine; Emergency Provider Emergency Medicine; Visit Provider Hospitalist
PROC: 0DJ08ZZ Inspection of Upper Intestinal Tract, Via Natural or Artificial Opening Endoscopic (ICD-10-PCS; CPT 43235; principal; 2021-04-08 14:00)
PROC: 0DJD8ZZ Inspection of Lower Intestinal Tract, Via Natural or Artificial Opening Endoscopic (ICD-10-PCS; CPT 45378; principal; 2021-04-10 10:10)
DX: K57.31 Diverticulosis of large intestine without perforation or abscess with bleeding (principal); K76.6 Portal hypertension; D62 Acute posthemorrhagic anemia; I12.9 Hypertensive chronic kidney disease with stage 1 through stage 4 chronic kidney disease, or unspecified chronic kidney disease; E11.22 Type 2 diabetes mellitus with diabetic chronic kidney disease; R26.81 Unsteadiness on feet; N18.30 Chronic kidney disease, stage 3 unspecified; I25.10 Atherosclerotic heart disease of native coronary artery without angina pectoris; K76.0 Fatty (change of) liver, not elsewhere classified; K31.89 Other diseases of stomach and duodenum; K64.8 Other hemorrhoids; Z95.1 Presence of aortocoronary bypass graft; D63.1 Anemia in chronic kidney disease; K74.60 Unspecified cirrhosis of liver; Z86.73 Personal history of transient ischemic attack (TIA), and cerebral infarction without residual deficits; Z20.822 Contact with and (suspected) exposure to COVID-19; Z79.4 Long term (current) use of insulin; Z79.82 Long term (current) use of aspirin; Z79.899 Other long term (current) drug therapy
CPT/HCPCS: 0241U; 36415; 36430; 70450; 71045; 80048; 80053; 80076; 81001; 82272; 82607; 82728; 82746; 82947; 83540; 83615; 83735; 83880; 84484; 85014; 85018; 85025; 85045; 85610; 86850; 86900; 86901; 86923; 88305; 88342; 93005; 96360; 97116; 97161; 99285; 99291; J2405; P9016

== ENCOUNTER → 2021-04-15 09:04 | Outpatient (BNVA) | payer OTHER, MEDICAID, SELFPAY | PROVIDERS: Visit Provider Registered Nurse Diabetes Educator | DX: E11.65 Type 2 diabetes mellitus with hyperglycemia (principal); Z79.4 Long term (current) use of insulin | CPT/HCPCS: 99211 ==

== ENCOUNTER 2022-04-16 09:02 | Outpatient (REF) | payer OTHER, MEDICAID, SELFPAY ==
--- NOTE | ~2022-04-16 | MM_ITS ---
EXAMINATION: BONE DENSITOMETRY CLINICAL INDICATION: Age-related osteoporosis without current pathological fracture. COMPARISON: None (current study represents initial baseline exam). TECHNIQUE: Using a Powerspan DXA System (software version: 13.1) manufactured by [employer], dual-energy x-ray absorptiometry was performed of the lumbar spine and left hip. The images are of good technical quality. Summary results are attached. FINDINGS: AP SPINE L1-L4: BMD 0.998 g/cm2, Z-score 0.1, T-score -1.5, osteopenia. LEFT FEMUR, NECK: BMD 0.545 g/cm2, Z-score -1.9, T-score -3.5, osteoporosis. LEFT FEMUR, TOTAL: BMD 0.575 g/cm2, Z-score -2.0, T-score -3.4, osteoporosis. IDENTIFIED RISK FACTORS: Early menopause, secondary osteoporosis, history of fracture (adult), renal. HISTORY OF FRACTURE: Spine. MEDICATIONS: Vitamin D. MM/XR DEXA axial skeleton IMPRESSION: 1. DIAGNOSIS: Osteoporosis based on the lowest T-score value of -3.5 in the femoral neck applying World Health Organization criteria. 2. 10-YEAR FRACTURE RISK PREDICTION, FRAX: According to the guidelines, FRAX calculation should only be performed on patients in the osteopenia bone density category. Therefore, FRAX was not performed on this patient. 3. Treatment Recommendations: NOF guidelines recommend consideration for treatment in postmenopausal women and men age 50 and older presenting with the following: -A hip or vertebral (clinical or morphometric) fracture. -T-score less than or equal to -2.5 at the femoral neck or spine after appropriate evaluation to exclude secondary causes. -Low bone mass at the hip or spine and a 10-year fracture probability by FRAX of greater than or equal to 3% for hip fracture or greater than or equal to 20% for major osteoporotic fracture based on the [place] adapted WHO algorithm. 4. Other Recommendations: All treatment decisions require clinical judgment and consideration of individual patient factors, including patient preferences, comorbidities, previous drug use, risk factors not captured in the FRAX model (e.g. frailty, falls, vitamin D deficiency, increased bone turnover, interval significant decline in bone density) and possible under or overestimation of fracture risk by FRAX. Additional medical evaluation for secondary cause of low bone mineral density may be appropriate. FUTURE SCAN RECOMMENDATION: People with diagnosed cases of osteoporosis or at high risk for fracture should have regular bone mineral density tests. For patients eligible for Medicare, routine testing is allowed once every 2 years. The testing frequency can be increased to one year for patients who have rapidly progressing disease, those who are receiving or discontinuing medical therapy to restore bone mass, or have additional risk factors.
== END 2022-04-16 09:03 | disposition home or self-care (01) ==
LOC: HO.MAMMO 09:02
PROVIDERS: PCP Internal Medicine; Visit Provider Internal Medicine
DX: Z13.820 Encounter for screening for osteoporosis (principal); Z78.0 Asymptomatic menopausal state; M81.0 Age-related osteoporosis without current pathological fracture
CPT/HCPCS: 77080

== ENCOUNTER 2022-05-29 08:22 | Outpatient (REF) | payer OTHER, MEDICAID, SELFPAY ==
[2022-05-29 09:44] LABS: MANUAL DIFF FLAG NO
[2022-05-29 10:41] LABS: Basophils Percent Auto 0.1 % (0-2); Hematocrit 37.8 % (37.0-47.0); Hemoglobin 11.5 g/dl (12.0-16.0); Imm Gran Abs Auto 0.05 X10*3/uL (0.00-0.03); Imm Gran Pct Auto 0.6 % (0.0-0.4); Lymphocytes Percent Auto 11.2 % (20-40); Mean Corpuscular HGB Conc 30.4 g/dl (31.0-35.0); Mean Corpuscular Volume 85.3 fL (80.0-98.0); Monocytes Absolute Auto 0.1 X10*3/uL (0.1-1.2); Monocytes Percent Auto 1.1 % (2-11); Neutrophils Absolute Auto 7.4 x10*3/uL (2.0-8.3); Platelet Count 231 X10*3/uL (160-400); Red Blood Count 4.43 X10*6/uL (4.20-5.50); Red Cell Distribution Width 17.6 % (11.0-16.0); White Blood Count 8.5 X10*3/uL (4.8-10.8)
[2022-05-29 10:42] LABS: Prothrombin Time 11.7 SEC (10.0-13.1)
[2022-05-29 11:31] LABS: Vitamin D 25-OH Total 33.2 ng/mL (>30)
[2022-05-29 11:49] LABS: Folate 14.8 ng/mL (> or = 4.0); Vitamin B12 651 pg/mL (200-900)
[2022-05-29 12:04] LABS: Alanine Aminotransferase 19 U/L (0-31); Albumin Level 3.8 g/dL (3.5-5.0); Alkaline Phosphatase 367 U/L (39-117); Anion Gap 19 (12-20); Aspartate Amino Transferase 24 U/L (5-31); Bilirubin Total 0.6 mg/dL (0.0-1.0); Blood Urea Nitrogen 47 mg/dL (9-16); Calcium 9.6 mg/dL (8.4-10.2); Carbon Dioxide 18 mmol/L (22-29); Chloride 99 mmol/L (96-108); Estimated Glomerular Filt Rate 23; Glucose Random 774 mg/dL (60-115); Sodium 131 mmol/L (135-145); Total Protein 8.1 g/dL (6.5-8.0)
[2022-06-02 21:04] LABS: Transglutaminase IgA 1.6 U/mL
[2022-06-03 15:44] LABS: Zinc 47 mcg/dL (60-130)
== END 2022-05-29 08:23 | disposition home or self-care (01) ==
LOC: HO.LAB 08:22
PROVIDERS: Visit Provider Internal Medicine Gastroenterology
DX: K86.2 Cyst of pancreas (principal); K21.9 Gastro-esophageal reflux disease without esophagitis; R10.12 Left upper quadrant pain; K59.09 Other constipation; R79.89 Other specified abnormal findings of blood chemistry; D50.9 Iron deficiency anemia, unspecified; K75.4 Autoimmune hepatitis
CPT/HCPCS: 36415; 80053; 82306; 82607; 82746; 84630; 85025; 85610; 86364

== ENCOUNTER 2022-05-29 08:22 | Outpatient (AMB) | payer OTHER, MEDICAID, SELFPAY ==
--- NOTE | 2022-05-29 08:31 | MHC.OFFVIS ---
Vital Signs 05/29/22 08:51 Height 5 ft BP 152/67 H Blood Pressure Location Lt brachial Position Sitting Pulse 78 Intake Visit Reasons: follow up Intake Note: Patient follow up BX results. Patient cc: nauseas on ad off, left lower abdominal pain, acid reflex, between diarrhea and constipation. Aids Nurse Required: Yes Aids Nurse Name: Joao [id number] Accompanied by: Employer Allergies No Known Allergies [No Known Allergies*] Allergy (Verified 06/10/23 16:34) Medication List - Last Reconciled 05/29/22 by Malik Shepard MD albuterol sulfate 90 mcg/actuation (Ventolin HFA) 2 puffs inhalation Q6H PRN amlodipine 2.5 mg PO DAILY aspirin (Adult Aspirin Regimen) 81 mg PO DAILY blood sugar diagnostic As directed four times a day calcium polycarbophil (Fiber (calcium polycarbophil)) 1 tab PO DAILY cetirizine (All Day Allergy (cetirizine)) 10 mg PO DAILY PRN cholecalciferol (vitamin D3) 2,000 units PO DAILY enalapril maleate 1 tab PO DAILY escitalopram oxalate 1 tab PO DAILY famotidine 20 mg PO DAILY ferrous fumarate (Ferrocite) 1 tab PO DAILY flash glucose scanning reader (ShopSueyStyle Fatmata 2 Milliken) As directed flash glucose sensor (FreeStyle Fatmata 2 Sensor kit) As directed every 2 weeks insulin glargine U-300 conc (Toujeo Max U-300 SoloStar) 20 units (0.0667 mL) subcut DAILY insulin lispro (Humalog KwikPen (U-100) Insulin) 14 - 20 units (0.14 - 0.2 mL) subcut TID 90 days melatonin 5 mg PO BEDTIME PRN metoprolol tartrate 12.5 mg PO DAILY omeprazole magnesium (Prilosec OTC) 20 mg PO DAILY rifaximin (Xifaxan) 1 tab PO BID ticagrelor (Brilinta) 90 mg PO BID trazodone 1 tab PO BEDTIME HPI HPI follow up: Details: GI CLINIC VISIT FOR THIS 71-YEAR-OLD SOMALI-SPEAKING FEMALE FOR FOLLOW-UP OF LEFT UPPER QUADRANT PAIN, ELEVATED LFTS AND SUSPICION OF CIRRHOSIS ON CT SCAN - MILDLY NODULAR HEPATIC CONTOUR SUSPICIOUS FOR CIRRHOSIS, AND WEIGHT LOSS. Pt was hospitalized at [facility] in April 2021. EGD showed portal hypertensive gastropathy and gastric biopsies were negative for Helicobacter pylori. A tubular adenoma was removed during colonoscopy. ?CHRONIC ILLNESSES:?HTN, Vitamin D def, DM, Constipation, Anemia ?LABS IN [facility]:?10/26/19 REVIEWED H & H OF 7.2 & 23.1, PLT 311, HAPTOGLOBIN NORMAL AT 143, ? IRON STUDIES CONSISTENT WITH IRON DEFICIENCY ANEMIA WITH FERRITIN OF 7, NORMAL VITAMIN B12 AND FOLATE. ? ELEVATED IgG 2759, IgG1 1963 WITH NORMAL Igg4. ? CHRISTOPHER POSITIVE IN A TITRE OF 1:160, Pattern Cytoplasmic, Reticular/AMA - seen in PBC and systemic sclerosis. ? ASMA positive at 44, AMA negative ? TTG IgG positive at 11 with normal IgA. ? Labs from [facility] were reviewed: ? 07/22/19 WBC 11.5, H&H 9.2 and 30.4, platelets 403 ? Sodium 130, potassium 5.8, bicarbonate 19, glucose 584, BUN 27, creatinine 1.8 ? LFTs revealed total bilirubin 1.7/direct bilirubin 1.1, AST 399, ALT 232, alkaline phosphatase 1436 ? Hepatitis-B surface antigen was negative, hepatitis B core antibody IgM and hepatitis C antibody were negative. Hepatitis a antibody IgM was negative ? 07/07/19 LFTs showed total bilirubin of 1.1, AST 585, ALT 2/1 and alkaline phosphatase 451 ? 05/05/19 - H/H- 12.5/38.5, platelets 230, BUN 22, creatinine 1.41 ? Bilirubin 1.5, AST 277, ALT 181, alkaline phosphatase 679, albumin 3.2 ?IMAGING STUDIES: 07/11/19 MRI/MRCP at [facility] showed: ? Slightly lobulated hepatic contour suggestive of cirrhosis, trace perihepatic and portal hepatic fluid, cholecystectomy without biliary obstruction or choledocholithiasis, atrophic right kidney with cortical?scarring and cyst. ? Small 3 x 8 mm cystic lesion at the pancreatic head likely a cyst side branch IPMN - 2 years for follow-up was recommended with pancreas protocol MRI to assess for stability. ? 07/2018- abd- LUQ pain- IMPRESSION: ? Mild manifestations of hepatic steatosis. Status post cholecystectomy. ? Slight increased renal cortical echogenicity bilaterally. Neither ? hydronephrosis nor nephrolithiasis. Benign-appearing right renal cysts. ?ENDOSCOPIC STUDIES: Medical Records were obtained from [facility]: ? 10/04/19 EGD was performed by Dr Ahmadi: Normal ? 10/05/[address] Sky and showed: ? A 5 mm adenomatous polyp was removed from the cecum cold snare. ? Two 3-5 mm adenomatous polyps were removed from the descending colon by cold snare. ? Small nonbleeding internal hemorrhoids were noted. ? No source found for iron deficiency anemia. ? Patient was advised further evaluation with a capsule endoscopy. ? Polyps were removed with a snare. 2/3 were tubulat adenomas on bx. ?11/28/19 CAPSULE ENDOSCOPY AT [facility] SHOWED ? GEJ with mild esophagitis, stomach with patchy erythema and granular tissue with few erosions, appearance consistent with chronic gastritis.? Duodenum entered at 20 minutes 8 seconds, nonbleeding AVM noted.? Cecum reached at 03:00 hours 21 minutes.? No active bleeding seen during the studies. Pt continues to complain of her stomach hurting and has some fatigue. Pt was advised to have repeat CBC and LFTs.? If she remains anemic, I will schedule an EGD for ablation of duodenal AVM with APC. Erica! Please fax labs to [facility] registration desk. Schedule an in person Office visit in 2 weeks, thanks ?TODAY'S VISIT: Patient cc: nauseas on ad off, left lower abdominal pain, acid reflex, between diarrhea and constipation. ? 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 Can have a BM 3-4 times a day to none. Intermittent hard stools with straining. Takes lactulose for constipation - 2 small cups as needed for constipation. PAST VISIT: Pt states i think i have constipation, it has been three days without going to the rest room. ? ? ? On the left side of my stomach I have pain. ? ? ? My whole body hurts ? ? ? Doing fair.? Denies fever. ? ? ? Pt was seen at [facility] ED last weekend and LFTs were elevated - TB 2.6, ALT 161, AST 350, AP 1000. ? ? ? Further evaluation with US guided liver bx was discussed with the patient and her daughter. ? Abdominal pain is so so ? ? ? Had a BM yesterday.? Has a BM every 1-2 days - can have hard stools with straining. ? ? ? Intermittent gas and bloating. ? Continues to have left sided abdominal pain. ? Has been having small BMs with incomplete evacuation. ? Bought some pills from [employer] for constipation. ? Advised to increase the dose of Linzess to 290 once daily from 145 during her last visit. ? Pt is doing good - not itching any more ? Intermittent dizziness - ? related to her eye glasses ? Has a visiting nurse who supervises her medication. ? Patient and daughter are unsure if she has been taking the Brilinta. ? Continues to have constant LUQ abdominal pain. ? Complains of chronic constipation. ? Pain improves a little after she is able to have a BM. ? She has been taking Senna 3 tablets every day and has not been helping. ? Was using Miralax in the past. ? Has been taking Vance seeds. ? Complains of increased gas and burping. ? Had a negative colonoscopy 6 years ago in [place]. ? Had an EGD in [place] 8 yrs agp. ? Hospitalized 2 weeks ago and had an EGD and Colon 2 weeks ago at [facility]. ? She had cauetrization during colonoscopy. ? She denies recent black stools or rectal bleeding. ? Notes weakness and dizziness. ? Denies heavy ETOH use or smoking. ? Taking Prilosec once a week for acid reflux ? Advised to stop Ranitidine and take Pepcid instead. ? Hospitalized at [facility] for 5 days a month ago and she was informed she had an intra-abdominal mass. ? Pt was advised to go to [facility] lab for lab tests within the next week. ? Pt states she had some lab tests done at [facility] yesterday. ? Pt was scheduled for an EGD and Colonoscopy and unable to do the procedures. ? Denies ongoing diarrhea - no BM for the past 3 days. ? Had diarrhea x 4- 7 days after she took Senna and LUQ pain has improved - it comes and goes. ? Notes some dizzines which she attributes to her medications. ? She was prescribed Senna 2 tab twice a day for constipation - advised to stop until diarrhea subsides. ? Then resume 1 tablet twice a week. ? Unable to drink the prep due to nausea. ? Pain can get worse after she eats and unable to identify any precipitating foods. ? Pain improves sometimes after a BM and sometimes. ? Pt is very constipated and has a BM every 3-4 days and sometimes after a week. ? Taking medications for constipation - fibre 3 times a day - advised to decrease to once a day ? Tried Miralax in the past and it was not helpful ? Denies heartburn or dysphagia ? Pt has a lot of nausea without vomiting. ? One episode of rectal bleeding associated with straining. ? Decreased appetite with 50% decrease in her appetite. ? Weight loss of 20 lbs (from 180 to 150 lbs) ? Denies past history of liver disease. ? Had a negative colonoscopy 6 years ago in [place]. ? Denies past problems with anesthesia, loud snoring or sleep apnea. ? Denies major pulmonary prooblems. ? Denies skin rash, itching, joint pains or eye problems ? Denies known FH of Liver problems, colon polyps or colon cancer. ? Was taking advil and stopped taking it 6 months ago. ? DM x > 20 yrs ? GB surgery > 20 yrs ago ?PAST GI HISTORY BY REVIEW OF MEDICAL RECORDS: ? Medical Records were obtained from [facility]: ? 10/04/19 EGD was performed by Dr Ahmadi: Normal ? 10/05/[address] Sky and showed: ? A 5 mm adenomatous polyp was removed from the cecum cold snare. ? Two 3-5 mm adenomatous polyps were removed from the descending colon by cold snare. ? Small nonbleeding internal hemorrhoids were noted. ? No source found for iron deficiency anemia. ? Patient was advised further evaluation with a capsule endoscopy - per patient's daughter, patient has not been contacted to schedule the procedure yet. ? Medical records from Cardiology Clinic at [facility] were reviewed and scanned into [employer]. ? 07/21 patient presented to [facility] with dyspnea nausea and vomiting. She was found to have a non ST elevation [place]. She underwent PCI to the LAD with a drug eluting stent and discharged on aspirin and Brilinta. ? Patient was seen in Cardiology Clinic on 07/30/2019 with chronic discomfort anorexia and progressive serve orthostasis and fatigue. She was noted to have a documented weight loss of 3.18 kg over the past several weeks. Daughter reported weight loss of greater than 20 lb over the past several months. ? 07/11/19 MRI/MRCP showed new: ? Slightly lobulated hepatic contour suggestive of cirrhosis, trace perihepatic and portal hepatic fluid, cholecystectomy without biliary obstruction or choledocholithiasis, atrophic right kidney with cortical scarring and cyst. Small cystic lesion at the pancreatic head likely a cyst side branch IPMN - 2 years for follow-up was recommended with pancreas protocol MRI to assess for stab PFSH Medical History (Updated 06/23/23 @ 00:01 by Magaly Snyder) Anemia Uncontrolled type 2 diabetes mellitus with hypoglycemia Chronic constipation Iron deficiency anemia Autoimmune cholangitis CHF (congestive heart failure) Renal failure (ARF), acute on chronic Autoimmune hepatitis CVA (cerebral vascular accident) Normocytic anemia CKD (chronic kidney disease) Fecal occult blood test positive Anemia Pancreatic cyst GERD (gastroesophageal reflux disease) Pancreatitis Depression Hypertriglyceridemia Vitamin D deficiency Constipated Type 2 diabetes mellitus with hyperglycemia Type 2 diabetes mellitus with chronic kidney disease Essential hypertension Hyperlipidemia LDL goal <100 Obesity (BMI 30-39.9) Diabetes mellitus with hyperglycemia Surgical History (Updated 07/15/23 @ 10:41 by Jennifer Quinteros) History of esophagogastroduodenoscopy (EGD) Hx of heart bypass surgery History of appendectomy Hx of colonoscopy Hx of cholecystectomy Family History Father No problems noted. 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 Unable to assess alcohol history related to: Unable to respond Alcohol intake: never Patient Tobacco Use Status: Never used Tobacco Advance Directives Date on File: 02/06/21 service: No Current occupational status: disabled Review of Systems Const Reports fatigue, Denies fever(s), Reports headache(s) and Reports weight loss Eyes Denies eye discharge and Denies irritation ENT Reports Normal hearing present, Reports dysphagia, Denies dizziness, Reports headache(s), Reports hoarseness and Reports sore throat Card Denies chest pain, Denies leg edema and Reports dyspnea on exertion Resp Reports cough, Reports dyspnea on exertion and Denies wheezing GI Reports abdominal pain, Reports bloating, Denies change in bowel habits, Reports constipation, Reports dysphagia, Reports early satiety, Reports heartburn, Reports nausea and Reports other (Loss of appetite) Denies difficulty voiding, Denies dysuria and Reports other (Frequent urination) Musc Denies back pain, Reports arthralgias and Reports other (Arthritis) Skin/Breast Denies pruritus, Denies rash and Denies jaundice Neuro Reports Normal hearing present, Denies Abnormal speech present, Denies dizziness, Reports headache(s) and Denies seizure-like activity Psych Reports anxiety, Reports depression and Denies panic attacks Endo Denies cold intolerance, Reports fatigue, Denies flushing and Denies heat intolerance Filiberto/Lymph Denies easy bleeding and Denies easy bruising Aller/Immun Denies wheezing Physical Exam Vital Signs: Last Vital Signs Pulse 78 05/29/22 08:51 BP 152/67 H 05/29/22 08:51 Const General: no acute distress Nutritional Appearance: obese Orientation/consciousness: patient oriented x3 Limitations: language barrier and ambulation with walker HEENT Head: Yes normal to inspection Ears: hearing grossly normal bilaterally Mouth: Normal oral and palatal mucosa present Eyes Sclerae: sclerae normal Pupils: Equal, round and reactive pupils present Neck Neck: Yes normal visual inspection Chest Chest palpation & inspection: normal inspection of the chest Resp Effort & Inspection: normal respiratory effort Auscultation: clear to auscultation bilaterally Cardio Palpation: normal PMI Rate: regular rate Rhythm: regular rhythm Heart sounds: S1 normal heart sound present, S2 normal heart sound present and no murmurs GI Palpation (GI): Soft to palpation, nontender and No hepatosplenomegaly present Auscultation: normal bowel sounds Rectal Exam - Female: deferred Skin General skin exam: no rashes or lesions noted Neuro General: patient oriented x3, gait normal and moves all extremities Cranial nerves: Yes Equal, round and reactive pupils present and Yes Normal hearing present Speech: No Abnormal speech present Psych Appearance: grossly normal Mental Status: mental status grossly normal Assessment & Plan Assessment & Plan (1) Pancreatic cyst: Comment: 07/11/19 MRI/MRCP at [facility] showed: Small 3 x 8 mm cystic lesion at the pancreatic head likely a cyst side branch IPMN - 2 years for follow-up was recommended with pancreas protocol MRI to assess for stability (due 07/2021) Code(s): K86.2 - Cyst of pancreas Category: Medical (2) GERD (gastroesophageal reflux disease): Code(s): K21.9 - Gastro-esophageal reflux disease without esophagitis Category: Medical (3) LUQ abdominal pain: Code(s): R10.12 - Left upper quadrant pain Category: Medical (4) Chronic constipation: Code(s): K59.09 - Other constipation Category: Medical (5) Elevated LFTs: Code(s): R79.89 - Other specified abnormal findings of blood chemistry Category: Medical (6) Iron deficiency anemia: Comment: Patient had an EGD and Colon on 10/03 and 10/05/19 at [facility]. EGD was normal. Two <10 mm adenomatous polyps were removed. No source was detected for iron deficiency anemia. 11/2019 Capsule endoscopy showed GEJ with mild esophagitis, stomach with patchy erythema and granular tissue with few erosions, appearance consistent with chronic gastritis. Duodenum entered at 20 minutes 8 seconds, nonbleeding AVM noted. Cecum reached at 03:00 hours 21 minutes. No active bleeding seen during the studies. Code(s): D50.9 - Iron deficiency anemia, unspecified Category: Medical (7) Autoimmune hepatitis: Code(s): K75.4 - Autoimmune hepatitis Category: Medical Plan 71 year old [place]-speaking female with HTN, Vitamin D def, DM, Constipation, Anemia followed in GI for left-sided abdominal pain and elevated LFTs in a cholestatic pattern, decreased appetite and weight loss. Hepatitis A, B and C serologies were negative. Lab evaluation showed elevated IgG, positive CHRISTOPHER in a titer of 1 in 160 in cytoplasmic reticular pattern common in PBC, systemic sclerosis and rare in other systemic autoimmune rheumatic disease. Mitochondrial antibody was negative.? IgG 4 levels were normal.? ASMA was elevated MRI/MRCP showed post cholecystectomy status without biliary obstruction or dilation. Of note none of the medicines she is taking at present is associated with cholestatic liver disease. She was taking ibuprofen and acetaminophen in the past which she has discontinued. Other possibilities include infiltrative liver disease like sarcoidosis, granulomatous disease, amyloidosis. Metastatic cancer is less likely given negative imaging studies. Since pt's LFTs continue to worsen, she will need a liver biopsy for further evaluation. Left upper quadrant pain appears to be related to chronic constipation and has improved since patient started taking senna. Patient had an EGD and Colon on 10/03 and 10/05/19 at [facility]. EGD was normal. Two <10 mm adenomatous polyps were removed. No source was detected for iron deficiency anemia. Capsule endoscopy showed mild esophagitis, stomach with patchy erythema and granular tissue with few erosions, appearance consistent with chronic gastritis.? Duodenum entered at 20 minutes 8 seconds, nonbleeding AVM noted.? Cecum reached at 03:00 hours 21 minutes.? No active bleeding seen during the studies. Since patient had placement of a drug eluting stent a year ago, dual anti-platelet therapy will be placed on hold after Cardiology Clearance Pt advised to have labs checked and schedule a FU in 2 weeks Patient was seen at [facility] last us Thursday with with elevated LFTs.? She needs further evaluation with liver biopsy. 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 I spoke with patient's daughter Sara (tel [phone]) who will removed Brilinta from her medication box a 5 days prior to the biopsy. Please obtain medical record from [facility] ED from 07/07/20 and Cardiology records from [facility] Further evaluation with US guided liver bx was discussed with the patient and her daughter. Pt was scheduled for a Liver bx by the GI RN multiple times and was a no show - and Pt was discharged from the GI clinic due to non-compliance with fu and liver bx appt Orders: Orders Complete Blood Count Auto Diff 05/29/22 R7 - Other specified abnormal findings of blood chemistry Vitamin D 25-OH Total 05/29/22 R7 - Other specified abnormal findings of blood chemistry Prothrombin Time INR 05/29/22 - Other specified abnormal findings of blood chemistry Transglutaminase Ab IgG 05/29/22 K75.4 - Autoimmune hepatitis, R7 - Other specified abnormal findings of blood chemistry Vitamin B12 and Folate 05/29/22 K75.4 - Autoimmune hepatitis, R7 - Other specified abnormal findings of blood chemistry Comprehensive Met. Panel 05/29/22 - Other specified abnormal findings of blood chemistry Transglutaminase IgA 05/29/22 K75.4 - Autoimmune hepatitis, R7 - Other specified abnormal findings of blood chemistry Zinc 05/29/22 K75.4 - Autoimmune hepatitis, R7 - Other specified abnormal findings of blood chemistry Coding Level of Care Code Est Pt Level 4 (43862) Diagnoses Pancreatic cyst K86.2 GERD (gastroesophageal reflux disease) K21.9 LUQ abdominal pain R10.12 Chronic constipation K59.09 Elevated LFTs R7. Iron deficiency anemia D50.9 Autoimmune hepatitis K75.4 Time Spent (min)
[2022-05-29 08:51] VITALS: BP 152/67; PULSE 78
== END 2022-05-29 10:04 | disposition home or self-care (01) ==
LOC: HO.HGI 08:22
PROVIDERS: Visit Provider Internal Medicine Gastroenterology
DX: K86.2 Cyst of pancreas (principal); K21.9 Gastro-esophageal reflux disease without esophagitis; R10.12 Left upper quadrant pain; K59.09 Other constipation; R79.89 Other specified abnormal findings of blood chemistry; D50.9 Iron deficiency anemia, unspecified; K75.4 Autoimmune hepatitis
CPT/HCPCS: 99499

== ENCOUNTER 2022-06-19 12:39 | Outpatient (AMB) | payer OTHER, MEDICAID, SELFPAY ==
[2022-06-19 12:44] VITALS: BP 164/71; PULSE 70; BMI 31.1
--- NOTE | 2022-06-19 12:44 | MHC.OFFVIS ---
Intake Vital Signs 06/19/22 12:44 Height 5 ft Weight 159 lb 9.835 oz BMI 31.1 BP 164/71 H Blood Pressure Location Lt brachial Position Sitting Pulse 70 Intake Visit Reasons: 2 week follow up Intake Note: Hannah presents in office as a est.patient for a 2wk f/u PT CC: pt reports having constipation pt denies any other GI Issues Lpn Required: Yes Lpn Language: Shipping Manager Name: Jerry [facility] interpeter Accompanied by: Grand Child Allergies No Known Allergies [No Known Allergies*] Allergy (Verified 03/19/23 13:03) HPI 2 week follow up HPI Details GI CLINIC VISIT FOR THIS 71-YEAR-OLD BRITISH-SPEAKING FEMALE FOR FOLLOW-UP OF LEFT UPPER QUADRANT PAIN, ELEVATED LFTS AND SUSPICION OF CIRRHOSIS ON CT SCAN - MILDLY NODULAR HEPATIC CONTOUR SUSPICIOUS FOR CIRRHOSIS, AND WEIGHT LOSS. Pt was hospitalized [place] [facility] [place].? EGD showed portal hypertensive gastropathy and gastric biopsies were negative for Helicobacter pylori.? A tubular adenoma was removed during colonoscopy. ?CHRONIC ILLNESSES:?HTN, Vitamin D def, DM, Constipation, Anemia ?LABS IN [facility]:?10/26/19 REVIEWED H & H OF 7.2 & 23.1, PLT 311, HAPTOGLOBIN NORMAL AT 143, ? IRON STUDIES CONSISTENT WITH IRON DEFICIENCY ANEMIA WITH FERRITIN OF 7, NORMAL VITAMIN B12 AND FOLATE. ? ELEVATED IgG 2759, IgG1 1963 WITH NORMAL Igg4. ? CHRISTOPHER POSITIVE IN A TITRE OF 1:160, Pattern Cytoplasmic, Reticular/AMA - seen in PBC and systemic sclerosis. ? ASMA positive at 44, AMA negative ? TTG IgG positive at 11 with normal IgA. ? Labs from [facility] were reviewed: ? 07/22/19 WBC 11.5, H&H 9.2 and 30.4, platelets 403 ? Sodium 130, potassium 5.8, bicarbonate 19, glucose 584, BUN 27, creatinine 1.8 ? LFTs revealed total bilirubin 1.7/direct bilirubin 1.1, AST 399, ALT 232, alkaline phosphatase 1436 ? Hepatitis-B surface antigen was negative, hepatitis B core antibody IgM and hepatitis C antibody were negative. Hepatitis a antibody IgM was negative ? 07/07/19 LFTs showed total bilirubin of 1.1, AST 585, ALT 2/1 and alkaline phosphatase 451 ? 05/05/19 - H/H- 12.5/38.5, platelets 230, BUN 22, creatinine 1.41 ? Bilirubin 1.5, AST 277, ALT 181, alkaline phosphatase 679, albumin 3.2 ?IMAGING STUDIES: 07/11/19 MRI/MRCP at [facility] showed: ? Slightly lobulated hepatic contour suggestive of cirrhosis, trace perihepatic and portal hepatic fluid, cholecystectomy without biliary obstruction or choledocholithiasis, atrophic right kidney with cortical?scarring and cyst. ? Small 3 x 8 mm cystic lesion at the pancreatic head likely a cyst side branch IPMN - 2 years for follow-up was recommended with pancreas protocol MRI to assess for stability. ? 07/2018- abd- LUQ pain- IMPRESSION: ? Mild manifestations of hepatic steatosis. Status post cholecystectomy. ? Slight increased renal cortical echogenicity bilaterally. Neither ? hydronephrosis nor nephrolithiasis. Benign-appearing right renal cysts. ?ENDOSCOPIC STUDIES: Medical Records were obtained from [facility]: ? 10/04/19 EGD was performed by Dr Ahmadi: Normal ? 10/05/[address] Sky and showed: ? A 5 mm adenomatous polyp was removed from the cecum cold snare. ? Two 3-5 mm adenomatous polyps were removed from the descending colon by cold snare. ? Small nonbleeding internal hemorrhoids were noted. ? No source found for iron deficiency anemia. ? Patient was advised further evaluation with a capsule endoscopy. ? Polyps were removed with a snare. 2/3 were tubulat adenomas on bx. ?11/28/19 CAPSULE [place]OSCOPY [place] [facility] ? GEJ with mild esophagitis, stomach with patchy erythema and granular tissue with few erosions, appearance consistent with chronic gastritis.? Duodenum entered at 20 minutes 8 seconds, nonbleeding AVM noted.? Cecum reached at 03:00 hours 21 minutes.? No active bleeding seen during the studies. Pt continues to complain of her stomach hurting and has some fatigue. Pt was advised to have repeat CBC and LFTs.? If she remains anemic, I will schedule an EGD for ablation of duodenal AVM with APC. Erica! Please fax labs to [facility] registration desk. Schedule an in person Office visit in 2 weeks, thanks ?TODAY'S VISIT: Pt is accompanied by her grandson who interpreted for the pt. Pt denies vomiting and going to the bathroom twice a day Pt complains of lower abdominal and constipation. Can have a BM 3-4 times a day to none. Intermittent hard stools with straining. Takes lactulose for constipation - 2 small cups as needed for constipation. ? ? ? Pt states i think i have constipation, it has been three days without going to the rest room. ? ? ? On the left side of my stomach I have pain. ? ? ? My whole body hurts ? ? ? Doing fair.? Denies fever. ? ? ? Pt was seen at [facility] ED last weekend and LFTs were elevated - TB 2.6, ALT 161, AST 350, AP 1000. ? ? ? Further evaluation with US guided liver bx was discussed with the patient and her daughter. ? PAST VISIT: ? ? ? Abdominal pain is so so ? ? ? Had a BM yesterday.? Has a BM every 1-2 days - can have hard stools with straining. ? ? ? Intermittent gas and bloating. ? Continues to have left sided abdominal pain. ? Has been having small BMs with incomplete evacuation. ? Bought some pills from [facility] for constipation. ? Advised to increase the dose of Linzess to 290 once daily from 145 during her last visit. ? Pt is doing good - not itching any more ? Intermittent dizziness - ? related to her eye glasses ? Has a visiting nurse who supervises her medication. ? Patient and daughter are unsure if she has been taking the Brilinta. ? Continues to have constant LUQ abdominal pain. ? Complains of chronic constipation. ? Pain improves a little after she is able to have a BM. ? She has been taking Senna 3 tablets every day and has not been helping. ? Was using Miralax in the past. ? Has been taking Vance seeds. ? Complains of increased gas and burping. ? Had a negative colonoscopy 6 years ago in [place]. ? Had an EGD in [place] 8 yrs agp. ? Hospitalized 2 weeks ago and had an EGD and Colon 2 weeks ago at [facility]. ? She had cauetrization during colonoscopy. ? She denies recent black stools or rectal bleeding. ? Notes weakness and dizziness. ? Denies heavy ETOH use or smoking. ? Taking Prilosec once a week for acid reflux ? Advised to stop Ranitidine and take Pepcid instead. ? Hospitalized at [facility] for 5 days a month ago and she was informed she had an intra-abdominal mass. ? Pt was advised to go to [facility] lab for lab tests within the next week. ? Pt states she had some lab tests done at [facility] yesterday. ? Pt was scheduled for an EGD and Colonoscopy and unable to do the procedures. ? Denies ongoing diarrhea - no BM for the past 3 days. ? Had diarrhea x 4- 7 days after she took Senna and LUQ pain has improved - it comes and goes. ? Notes some dizzines which she attributes to her medications. ? She was prescribed Senna 2 tab twice a day for constipation - advised to stop until diarrhea subsides. ? Then resume 1 tablet twice a week. ? Unable to drink the prep due to nausea. ? Pain can get worse after she eats and unable to identify any precipitating foods. ? Pain improves sometimes after a BM and sometimes. ? Pt is very constipated and has a BM every 3-4 days and sometimes after a week. ? Taking medications for constipation - fibre 3 times a day - advised to decrease to once a day ? Tried Miralax in the past and it was not helpful ? Denies heartburn or dysphagia ? Pt has a lot of nausea without vomiting. ? One episode of rectal bleeding associated with straining. ? Decreased appetite with 50% decrease in her appetite. ? Weight loss of 20 lbs (from 180 to 150 lbs) ? Denies past history of liver disease. ? Had a negative colonoscopy 6 years ago in [place]. ? Denies past problems with anesthesia, loud snoring or sleep apnea. ? Denies major pulmonary prooblems. ? Denies skin rash, itching, joint pains or eye problems ? Denies known FH of Liver problems, colon polyps or colon cancer. ? Was taking advil and stopped taking it 6 months ago. ? DM x > 20 yrs ? GB surgery > 20 yrs ago ?PAST GI HISTORY BY REVIEW OF MEDICAL RECORDS: ? Medical Records were obtained from [facility]: ? 10/04/19 EGD was performed by Dr Ahmadi: Normal ? 10/05/[address] Sky and showed: ? A 5 mm adenomatous polyp was removed from the cecum cold snare. ? Two 3-5 mm adenomatous polyps were removed from the descending colon by cold snare. ? Small nonbleeding internal hemorrhoids were noted. ? No source found for iron deficiency anemia. ? Patient was advised further evaluation with a capsule endoscopy - per patient's daughter, patient has not been contacted to schedule the procedure yet. ? Medical records from Cardiology Clinic at [facility] were reviewed and scanned into [facility]. ? 07/21 patient presented to [facility] with dyspnea nausea and vomiting. She was found to have a non ST elevation [place]. She underwent PCI to the LAD with a drug eluting stent and discharged on aspirin and Brilinta. ? Patient was seen in Cardiology Clinic on 07/30/2019 with chronic discomfort anorexia and progressive serve orthostasis and fatigue. She was noted to have a documented weight loss of 3.18 kg over the past several weeks. Daughter reported weight loss of greater than 20 lb over the past several months. ? 07/11/19 MRI/MRCP showed new: ? Slightly lobulated hepatic contour suggestive of cirrhosis, trace perihepatic and portal hepatic fluid, cholecystectomy without biliary obstruction or choledocholithiasis, atrophic right kidney with cortical scarring and cyst. Small cystic lesion at the pancreatic head likely a cyst side branch IPMN - 2 years for follow-up was recommended with pancreas protocol MRI to assess for?stability [facility] Medical History (Updated 01/10/23 @ 00:03 by Magaly Snyder) Autoimmune cholangitis CVA (cerebral vascular accident) Normocytic anemia CKD (chronic kidney disease) Fecal occult blood test positive Anemia Pancreatic cyst GERD (gastroesophageal reflux disease) Iron deficiency anemia Pancreatitis Depression Hypertriglyceridemia Vitamin D deficiency Constipated Type 2 diabetes mellitus with hyperglycemia Type 2 diabetes mellitus with chronic kidney disease Essential hypertension Hyperlipidemia LDL goal <100 Obesity (BMI 30-39.9) Diabetes mellitus with hyperglycemia Surgical History (Updated 03/06/23 @ 15:50 by Jennifer Quinteros) History of esophagogastroduodenoscopy (EGD) Hx of heart bypass surgery History of appendectomy Hx of colonoscopy Hx of cholecystectomy Family History Father No problems noted. Mother Diabetes mellitus CVD (cardiovascular disease) Sister Cancer Son Diabetes mellitus Social History Household Members: Other Household Members Other:: daughter Housing: Apartment Housing Other:: [employer] services Do you presently have visiting nurse or other home services: Yes ([employer]) Alcohol intake: never Patient Tobacco Use Status: Never used Tobacco Advance Directives Date on File: 02/06/21 service: No Current occupational status: disabled Review of Systems Const Denies fever(s), Reports headache(s) and Denies weight loss Eyes Denies eye discharge and Denies irritation ENT Reports Normal hearing present, Denies dysphagia, Denies dizziness and Reports headache(s) Card Denies chest pain, Denies leg edema and Denies dyspnea on exertion Resp Denies cough, Denies dyspnea on exertion and Denies wheezing GI Reports abdominal pain, Denies change in bowel habits, Reports constipation, Denies dysphagia and Reports heartburn Denies difficulty voiding, Denies dysuria and Reports other (urinary frequency) Musc Denies back pain, Denies arthralgias and Reports other (arthritis) Skin/Breast Denies pruritus, Reports rash and Denies jaundice Neuro Reports Normal hearing present, Denies Abnormal speech present, Denies dizziness, Reports headache(s) and Denies seizure-like activity Psych Reports anxiety, Reports depression and Denies panic attacks Endo Denies cold intolerance, Denies flushing and Denies heat intolerance Filiberto/Lymph Denies easy bleeding and Denies easy bruising Aller/Immun Denies wheezing Physical Exam Vital Signs: Last Vital Signs Pulse 70 06/19/22 12:44 BP 164/71 H 06/19/22 12:44 BMI result Body Mass Index 31.1 Const General: healthy appearing and no acute distress Nutritional Appearance: obese Orientation/consciousness: patient oriented x3 Limitations: language barrier HEENT Head: Yes normal to inspection Ears: hearing grossly normal bilaterally Mouth: Normal oral and palatal mucosa present Eyes Sclerae: sclerae normal Pupils: Equal, round and reactive pupils present Neck Neck: Yes normal visual inspection Chest Chest palpation & inspection: normal inspection of the chest Resp Effort & Inspection: normal respiratory effort Auscultation: clear to auscultation bilaterally Cardio Palpation: normal PMI Rate: regular rate Rhythm: regular rhythm Heart sounds: S1 normal heart sound present, S2 normal heart sound present and no murmurs GI Palpation (GI): Soft to palpation, nontender and No hepatosplenomegaly present Auscultation: normal bowel sounds Rectal Exam - Female: deferred Skin General skin exam: no rashes or lesions noted Neuro General: patient oriented x3, gait normal and moves all extremities Cranial nerves: Yes Equal, round and reactive pupils present and Yes Normal hearing present Speech: No Abnormal speech present Psych Appearance: grossly normal Mental Status: mental status grossly normal Assessment & Plan Assessment & Plan (1) Autoimmune hepatitis: Code(s): K75.4 - Autoimmune hepatitis (2) Pancreatic cyst: Comment: 07/11/19 MRI/MRCP at [facility] showed: Small 3 x 8 mm cystic lesion at the pancreatic head likely a cyst side branch IPMN - 2 years for follow-up was recommended with pancreas protocol MRI to assess for stability (due 07/2021) Code(s): K86.2 - Cyst of pancreas (3) GERD (gastroesophageal reflux disease): Code(s): K21.9 - Gastro-esophageal reflux disease without esophagitis (4) Elevated LFTs: Code(s): R79.89 - Other specified abnormal findings of blood chemistry (5) Iron deficiency anemia: Comment: Patient had an EGD and Colon on 10/03 and 10/05/19 at [facility]. EGD was normal. Two <10 mm adenomatous polyps were removed. No source was detected for iron deficiency anemia. 11/2019 Capsule endoscopy showed GEJ with mild esophagitis, stomach with patchy erythema and granular tissue with few erosions, appearance consistent with chronic gastritis. Duodenum entered at 20 minutes 8 seconds, nonbleeding AVM noted. Cecum reached at 03:00 hours 21 minutes. No active bleeding seen during the studies. Code(s): D50.9 - Iron deficiency anemia, unspecified (6) Autoimmune cholangitis: Code(s): K83.09 - Other cholangitis (7) Elevated serum creatinine: Code(s): R79.89 - Other specified abnormal findings of blood chemistry Plan 71 year old Portuguese-speaking female with HTN, Vitamin D def, DM, Constipation, Anemia followed in GI for left-sided abdominal pain and elevated LFTs in a cholestatic pattern, decreased appetite and weight loss. Hepatitis A, B and C serologies were negative. MRI/MRCP showed post cholecystectomy status without biliary obstruction or dilation. Lab evaluation showed elevated IgG, positive CHRISTOPHER in a titer of 1 in 160 in cytoplasmic reticular pattern common in PBC, systemic sclerosis and rare in other systemic autoimmune rheumatic disease. Mitochondrial antibody was negative.? IgG 4 levels were normal.? ASMA was elevated Of note none of the medicines she is taking at present is associated with cholestatic liver disease. She was taking ibuprofen and acetaminophen in the past which she has discontinued. Other possibilities include infiltrative liver disease like sarcoidosis, granulomatous disease, amyloidosis. Metastatic cancer is less likely given negative imaging studies. Since pt's LFTs continue to worsen, she will need a liver biopsy for further evaluation. Left upper quadrant pain appears to be related to chronic constipation and has improved since patient started taking senna. Patient had an EGD and Colon on 10/03 and 10/05/19 at [facility]. EGD was normal. Two <10 mm adenomatous polyps were removed. No source was detected for iron deficiency anemia. Pt was scheduled for a Liver bx by the GI RN multiple times and was a no show - and Pt was discharged from the GI clinic Pt had a liver bx done at [facility] and was diagnosed with autoimmune cholangitis. Pt was advised to start Ursodiol 500 mg b.i.d. for autoimmune cholangitis and referred to Nephrology (elevated creatinine) Follow-up in 4 weeks to recheck labs Orders: Orders UA and rflx microscopic 06/19/22 E11.22 - Type 2 diabetes mellitus with diabetic chronic kidney disease Referrals Nephrology Referral R79.89 - Other specified abnormal findings of blood chemistry, E11.22 - Type 2 diabetes mellitus with diabetic chronic kidney disease Medications: New ursodiol 500 mg PO BID 60 tabs 2RF 30 days K83.09 - Other cholangitis Patient Instructions: Please have lab test in 4 weeks. Please schedule an appointment to see a kidney specialist Coding Level of Care Code Est Pt Level 4 (02679) Diagnoses Autoimmune hepatitis K75.4 Pancreatic cyst K86.2 GERD (gastroesophageal reflux disease) K21.9 Elevated LFTs R79.89 Iron deficiency anemia D50.9 Autoimmune cholangitis K83.09 Elevated serum creatinine R79.89 Time Spent (min) 27
== END 2022-06-19 14:11 | disposition home or self-care (01) ==
LOC: HO.HGI 12:39
PROVIDERS: Visit Provider Internal Medicine Gastroenterology
DX: K75.4 Autoimmune hepatitis (principal); K86.2 Cyst of pancreas; K21.9 Gastro-esophageal reflux disease without esophagitis; R79.89 Other specified abnormal findings of blood chemistry; D50.9 Iron deficiency anemia, unspecified; K83.09 Other cholangitis
CPT/HCPCS: 99214

== ENCOUNTER → 2022-06-19 12:39 | Outpatient (BNVA) | payer OTHER, MEDICAID, SELFPAY | PROVIDERS: Visit Provider Internal Medicine Gastroenterology | DX: K75.4 Autoimmune hepatitis (principal) | CPT/HCPCS: 99212 ==

== ENCOUNTER 2022-09-04 16:04 | Outpatient (REF) | payer OTHER, MEDICAID, SELFPAY ==
--- NOTE | ~2022-09-04 | US_ITS ---
EXAMINATION: US VENOUS ULTRASOUND WITH DOPPLER LOWER EXTREMITY, LEFT CLINICAL INFORMATION: Swelling COMPARISON: None available. TECHNIQUE: Ultrasound of the deep veins is performed from the hip to the calf with compression sonography and color and pulse Doppler assessment. Spectral analysis with color-flow imaging is performed. FINDINGS: Exam is limited. The patient could not tolerate compression of the common femoral, superficial femoral or profunda femoral veins. No DVT in these veins is seen. The popliteal vein and visualized peroneal and posterior tibial veins are patent. US/US venous duplex LE LT IMPRESSION: Limited exam as patient could not tolerate compression in the thigh. No DVT is seen.
== END 2022-09-04 16:05 | disposition home or self-care (01) ==
LOC: HO.US 16:04
PROVIDERS: Absent Provider General Practice; PCP General Practice; Visit Provider Emergency Medicine
DX: R60.0 Localized edema (principal)
CPT/HCPCS: 93971

== ENCOUNTER 2022-12-24 09:24 | Outpatient (AMB) | payer OTHER, MEDICAID, SELFPAY ==
--- NOTE | 2022-12-24 09:36 | A.SPINEOV_ITS ---
Intake Intake Visit Reasons: compression fracture of L4 vertebra Intake Note: Ms. Grey is here today c/o low back pain. CT Scan done @ [facility]. Jeeper Operator Required: Yes Allergies No Known Allergies [No Known Allergies*] Allergy (Verified 06/19/22 12:44) Assessment & Plan Assessment & Plan (1) Lumbago: Code(s): M54.50 - Low back pain, unspecified Plan Dear colleague, Thank you for referring Hannah to our office today. She is a 72-year-old female who comes in with a chief complaint of longstanding (20+ years) chronic low back pain, which she states has been exacerbated by a fall 1 year ago during which she reports she fractured 2 ribs (unable to report which side the fractures were). She reports that both her and her daughter are unaware of any spinal fractures that happened at this time. This was likely found incidentally during the CT that was performed to evaluate her rib fractures. The patient reports that walking, prolonged standing, and completing basic ADLs exacerbates her low back pain. She endorses radiation of pain symptoms down her right anterior and posterior thigh, and endorses right-sided thigh numbness/weakness. The patient reports that she has tried tylenol, ibuprofen, ice, heat, salon-pas patches, pet care assistant, and physical therapy (finished 2 months ago) to help alleviate her pain. She reports minimal relief from these interventions. PMH: Patient history provided by both patient and referring provider; Asthma, hypertension, hyperlipidemia, osteoarthritis, depression, insomnia, type 2 diabetes mellitus (last A1c 7.3), vitamin-D deficiency, urinary incontinence, HX myocardial infarction, varicose veins, chronic kidney disease (unspecified), obesity, vascular dementia (unspecified). Social hx: Patient does not smoke, no disclosed substance use. Medications: Lisinopril, calcitriol, loratadine, rifaximin, Lantus, lispro, albuterol, amlodipine, aspirin, cholecalciferol, fluticasone, metoprolol, pantoprazole, ursodiol, Seroquel, Xifaxan, diclofenac, Tylenol. Allergies: NKDA. Physical exam: The patient has 4/5 strength (pain limiting) in her right iliopsoas, with 5/5 strength in the rest of her bilateral lower extremities. Reflexes difficult to assess due to patient tensing up during reflex hammer testing. Muscle response during testing seems to reflect normal 2+ reflexes. Sensation reported dull / different in R anterior / posterion thigh vs. L anterior / posterior thigh. (-) Babinski, (-) Jimenez's, (-) Clonus, pain limiti ng ability to perform straight leg raise. Patient ambulates with the use of a walker. She is accompanied by her daughter who helps her with her ADLs. Imaging review: 11/08/2021 CT report from referring provider states anterior wedge compression fracture of T12 (acute on chronic) no central canal stenosis, wedge compression fracture of L4 (acute on chronic) moderate central canal stenosis. CT disc not provided, it was performed at outside facility. Impression: The patient is a 72-year-old female who comes in with a chief complaint of longstanding chronic low back pain with exacerbation post fall [address] report from last November states that she had acute on chronic T1 and L4 compression fractures. The patient does not complain of any symptoms that would be indicative of agitation at the level of T1, however she does endorse symptoms that may be concerning for a neurogenic issue at the level of L4. She has tried several conservative measures as stated above in is found minimal relief. It is recommended at this time that she has an MRI of the lumbar spine completed so that we can better evaluate for central canal stenosis and visualize the exiting nerve roots. This patient case was discussed Dr. Phillip who is in agreement with this plan. Hannah may be seen in follow-up in our clinic after MRI is completed and read to discuss potential interventions. Thank you for allowing us to care for your patient. The total time spent with this visit with this patient was 45 minutes reviewing history, physical exam, CT imaging report review, and implementation of treatment plan or further diagnostic testing Tobias Phillip MD,PhD [facility] Orders: Orders MR lumbar spine wo con Today M54.50 - Low back pain, unspecified Coding Level of Care Code New Pt Level 4 (32923) Diagnoses Lumbago M54.50 Time Spent (min) 45
== END 2022-12-24 10:15 | disposition home or self-care (01) ==
PROVIDERS: PCP General Practice; Referring Provider General Practice; Visit Provider Physician Assistant
DX: M54.50 Low back pain, unspecified (principal)
CPT/HCPCS: 99204

== ENCOUNTER → 2022-12-24 09:24 | Outpatient (BNVA) | payer OTHER, MEDICAID, SELFPAY | PROVIDERS: PCP General Practice; Visit Provider Physician Assistant | DX: M54.50 Low back pain, unspecified (principal) | CPT/HCPCS: 99202 ==

== ENCOUNTER 2022-12-29 11:23 | Inpatient (IN) | payer OTHER, MEDICAID, SELFPAY ==
[2022-12-29] VITALS (7 sets, daily range): BP systolic 106–141; BP diastolic 36–83; PULSE 57–72; RESP 16–20; TEMP 36.3–36.7; O2SAT 2–99; BMI 38.8; BMI 39.2
--- NOTE | ~2022-12-29 | XR_ITS ---
EXAMINATION: XR CHEST CLINICAL INFORMATION: Chest pain. COMPARISON: 04/05/2021 chest radiograph. TECHNIQUE: Frontal view of the chest was obtained. FINDINGS: Low lung volumes limit evaluation. No significant abnormality is noted involving the heart, lungs, mediastinum, bony thorax or soft tissues. XR/XR chest 1V IMPRESSION: No acute cardiopulmonary process.
--- NOTE | 2022-12-29 11:34 | ED.GENADULT ---
HPI - General Adult General Stated complaint: hemoglobin level at 6? sent by primary Related Data Home Medications Medication Instructions Recorded Confirmed albuterol sulfate 90 mcg/actuation 2 puff inhalation Q6H PRN Wheezing 02/27/20 05/29/22 aerosol inhaler (Ventolin HFA) amlodipine 2.5 mg tablet 2.5 mg PO DAILY 02/27/20 05/29/22 aspirin 81 mg tablet,delayed 81 mg PO DAILY 02/27/20 05/29/22 release (Adult Aspirin Regimen) cholecalciferol (vitamin D3) 50 2,000 unit PO DAILY 02/27/20 05/29/22 mcg (2,000 unit) capsule famotidine 20 mg tablet 20 mg PO DAILY 02/27/20 05/29/22 metoprolol tartrate 25 mg tablet 12.5 mg PO DAILY 02/27/20 05/29/22 ticagrelor 90 mg tablet (Brilinta) 90 mg PO BID 02/27/20 05/29/22 cetirizine 10 mg capsule (All Day 10 mg PO DAILY PRN Allergic 11/16/20 05/29/22 Allergy (cetirizine)) Symptoms melatonin 5 mg capsule 5 mg PO BEDTIME PRN Insomnia 11/16/20 05/29/22 calcium polycarbophil 625 mg 1 tab PO DAILY 02/05/21 05/29/22 tablet (Fiber (calcium polycarbophil)) enalapril maleate 5 mg tablet 1 tab PO DAILY 02/05/21 05/29/22 escitalopram oxalate 5 mg tablet 1 tab PO DAILY 02/05/21 05/29/22 ferrous fumarate 324 mg (106 mg 1 tab PO DAILY 02/05/21 05/29/22 iron) tablet (Ferrocite) rifaximin 550 mg tablet (Xifaxan) 1 tab PO BID 02/05/21 05/29/22 trazodone 50 mg tablet 1 tab PO BEDTIME 04/05/21 05/29/22 omeprazole magnesium 20 mg 20 mg PO DAILY 05/29/22 05/29/22 tablet,delayed release (Prilosec OTC) Previous Rx's Medication Instructions Recorded flash glucose scanning reader #1 ea 11/16/20 ([employer] Fatmata 2 [place]) insulin lispro 100 unit/mL 14 - 20 unit (0.14 - 0.2 mL) 11/16/20 subcutaneous pen (Humalog KwikPen subcut TID 90 days #60 mL (U-100) Insulin) insulin glargine U-300 conc 300 20 unit (0.0667 mL) subcut DAILY 04/10/21 unit/mL (3 mL) subcutaneous pen #0 mL (Toujeo Max U-300 SoloStar) blood sugar diagnostic #150 ea 04/30/21 flash glucose sensor (FreeStyle #2 ea 12/13/21 Fatmata 2 Sensor kit) ursodiol 500 mg tablet 500 mg PO BID 30 days #60 tabs 12/26/22 Allergies Allergy/AdvReac Type Severity Reaction Status Date / Time No Known Allergies Allergy Verified 12/29/22 11:37 [No Known Allergies*] FOR[facility], [facility] Past Medical History Medical History Anemia CKD (chronic kidney disease) Constipated CVA (cerebral vascular accident) Depression Diabetes mellitus with hyperglycemia Essential hypertension Fecal occult blood test positive Hyperlipidemia LDL goal <100 Hypertriglyceridemia Normocytic anemia Obesity (BMI 30-39.9) Pancreatitis Type 2 diabetes mellitus with chronic kidney disease Type 2 diabetes mellitus with hyperglycemia Vitamin D deficiency Surgical History History of appendectomy History of esophagogastroduodenoscopy (EGD) Hx of cholecystectomy Hx of colonoscopy Hx of heart bypass surgery Family History Family History Father No problems noted. 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 Patient is a 72 year old female who presents from her PCP for feeling weak, short of breath, and with black stools for a couple of days. Last colonoscopy was 2019 and was normal. On recent labs her hemoglobin was a 6. Discharge Plan Discharge Prescriptions: No Action (DME) OneTouch Ultra Blue Test Strip Strip See Rx Instructions .ROUTE .MEDSUPPLY Qty: 150 11RF Rx Instructions: As directed four times a day (DME) FreeStyle Fatmata 2 Sensor Kit See Rx Instructions .ROUTE .MEDSUPPLY Qty: 2 5RF Rx Instructions: As directed every 2 weeks ursodiol 500 mg tablet 500 mg PO BID 30 Days Qty: 60 2RF trazodone 50 mg tablet 1 tab PO BEDTIME Toujeo Max U-300 [place] 300 unit/mL (3 mL) insulin pen 20 unit subcut DAILY Qty: 0 0RF enalapril maleate 5 mg tablet 1 tab PO DAILY calcium polycarbophil [Fiber (calcium polycarbophil)] 625 mg tablet 1 tab PO DAILY escitalopram oxalate 5 mg tablet 1 tab PO DAILY ferrous fumarate [Ferrocite] 324 mg (106 mg iron) tablet 1 tab PO DAILY Xifaxan 550 mg tablet 1 tab PO BID insulin lispro [Humalog KwikPen Insulin] 100 unit/mL insulin pen 14 - 20 unit subcut TID 90 Days Qty: 60 1RF (DME) FreeStyle Fatmata 2 [place] Misc See Rx Instructions .ROUTE .MEDSUPPLY Qty: 1 0RF Rx Instructions: As directed aspirin [Adult Aspirin Regimen] 81 mg tablet,delayed release (DR/EC) 81 mg PO DAILY Hold Instructions: Resume on 04/11/21. Brilinta 90 mg tablet 90 mg PO BID Hold Instructions: Resume on 04/11/21. metoprolol tartrate 25 mg tablet 12.5 mg PO DAILY amlodipine 2.5 mg tablet 2.5 mg PO DAILY albuterol sulfate [Ventolin HFA] 90 mcg/actuation HFA aerosol inhaler 2 puff inhalation Q6H PRN (Reason: Wheezing) famotidine 20 mg tablet 20 mg PO DAILY cholecalciferol (vitamin D3) 50 mcg (2,000 unit) capsule 2,000 unit PO DAILY All Day Allergy (cetirizine) 10 mg capsule 10 mg PO DAILY PRN (Reason: Allergic Symptoms) melatonin 5 mg capsule 5 mg PO BEDTIME PRN (Reason: Insomnia) omeprazole magnesium [Prilosec OTC] 20 mg tablet,delayed release (DR/EC) 20 mg PO DAILY
--- NOTE | 2022-12-29 11:35 | ECG_ITS ---
Test Reason : abd pain Blood Pressure : / mmHG Vent. Rate : 049 BPM Atrial Rate : 049 BPM P-R Int : 140 ms QRS Dur : 084 ms QT Int : 468 ms P-R-T Axes : -09 016 047 degrees QTc Int : 422 ms Sinus bradycardia Otherwise normal ECG When compared with ECG of 06-APR-2021 08:51, QRS axis Shifted left Non-specific change in ST segment in Lateral leads Referred By: William Barbosa Electronically Signed By:KESHAV MORA
[2022-12-29 12:42] LABS: MANUAL DIFF FLAG NO
[2022-12-29 12:44] LABS: Basophils Percent Auto 0.5 % (0-2); Eosinophils Absolute Auto 0.2 X10*3/uL (0.0-0.4); Eosinophils Percent Auto 3.3 % (0-4); Imm Gran Abs Auto 0.01 X10*3/uL (0.00-0.03); Imm Gran Pct Auto 0.2 % (0.0-0.4); Lymphocytes Absolute Auto 1.7 X10*3/uL (1.2-4.9); Mean Corpuscular Hemoglobin 24.9 pg (27.0-33.0); Mean Corpuscular Volume 83.1 fL (80.0-98.0); Mean Platelet Volume 10.8 fL (9.4-12.3); Monocytes Absolute Auto 0.6 X10*3/uL (0.1-1.2); Monocytes Percent Auto 10.1 % (2-11); Neutrophils Absolute Auto 3.6 x10*3/uL (2.0-8.3); Neutrophils Percent Auto 58.9 % (45-73); Platelet Count 230 X10*3/uL (160-400); Red Blood Count 2.49 X10*6/uL (4.20-5.50); White Blood Count 6.1 X10*3/uL (4.8-10.8)
[2022-12-29 12:48] LABS: Hemoglobin 6.2 g/dl (12.0-16.0)
[2022-12-29 12:49] LABS: Hematocrit 20.7 % (37.0-47.0)
[2022-12-29 12:56] LABS: Lipase 31 U/L (8-78)
[2022-12-29 12:59] LABS: Alanine Aminotransferase 10 U/L (0-31); Albumin Level 3.2 g/dL (3.5-5.0); Alkaline Phosphatase 194 U/L (39-117); Anion Gap 13 (12-20); Aspartate Amino Transferase 22 U/L (5-31); Bilirubin Total 0.2 mg/dL (0.0-1.0); Blood Urea Nitrogen 64 mg/dL (9-16); Calcium 8.7 mg/dL (8.4-10.2); Carbon Dioxide 18 mmol/L (22-29); Chloride 114 mmol/L (96-108); Creatinine Clr Calc Pharmacy 25.3; Estimated Glomerular Filt Rate 28; Glucose Random 190 mg/dL (60-115); Potassium 5.8 mmol/L (3.3-5.1); Sodium 139 mmol/L (135-145); Total Protein 6.7 g/dL (6.5-8.0)
--- NOTE | 2022-12-29 13:01 | ED.GENADULT ---
HPI - General Adult General Chief complaint: Abdominal Pain Stated complaint: hemoglobin level at 6? sent by primary Time Seen by Provider: 12/29/22 12:55 Source: patient Mode of arrival: ambulatory Limitations: no limitations History of Present Illness HPI narrative: This is a 72 years old sent here by the primary care physician for evaluation because of symptomatic anemia. Patient denies any chest pain. She has been feeling short of breath and weak for the last 3 or 4 days. She has history of diabetes chronic renal failure Onset (ago): day(s) (2) Radiation: non-radiation Severity: moderate Quality: burning Pain Consistency: constant Related Data Home Medications Medication Instructions Recorded Confirmed aspirin 81 mg tablet,delayed 81 mg PO DAILY 02/27/20 12/29/22 release (Adult Aspirin Regimen) cholecalciferol (vitamin D3) 50 2,000 unit PO DAILY 02/27/20 12/29/22 mcg (2,000 unit) capsule metoprolol tartrate 25 mg tablet 12.5 mg PO DAILY 02/27/20 12/29/22 cetirizine 10 mg capsule (All Day 10 mg PO DAILY PRN Allergic 11/16/20 12/29/22 Allergy (cetirizine)) Symptoms enalapril maleate 5 mg tablet 1 tab PO DAILY 02/05/21 12/29/22 amlodipine 10 mg tablet 10 mg PO QAM 12/29/22 12/29/22 insulin glargine U-300 conc 300 40 unit subcut BEDTIME 12/29/22 12/29/22 unit/mL (3 mL) subcutaneous pen (Toujeo Max U-300 SoloStar) insulin lispro 100 unit/mL 12 unit subcut TID 12/29/22 12/29/22 subcutaneous pen (Humalog KwikPen (U-100) Insulin) linaclotide 145 mcg capsule 145 mcg PO DAILY PRN GI UPSET 12/29/22 12/29/22 ([employer]ess) pantoprazole 40 mg tablet,delayed 40 mg PO DAILY 12/29/22 12/29/22 release quetiapine 25 mg tablet 25 mg PO Q12H PRN anxiety 12/29/22 12/29/22 trazodone 100 mg tablet 100 mg PO BEDTIME 12/29/22 12/29/22 Previous Rx's Medication Instructions Recorded flash glucose scanning reader #1 ea 11/16/20 (FreeStyle Fatmata 2 [place]) blood sugar diagnostic #150 ea 04/30/21 flash glucose sensor (FreeStyle #2 ea 12/13/21 Fatmata 2 Sensor kit) ursodiol 500 mg tablet 500 mg PO BID 30 days #60 tabs 12/26/22 Allergies Allergy/AdvReac Type Severity Reaction Status Date / Time No Known Allergies Allergy Verified 12/29/22 11:37 [No Known Allergies*] Review of Systems Constitutional: Constitutional: Reports no additional constitutional complaints ENT: Reports system reviewed and no additional complaints, except as documented Cardiovascular: Cardiovascular: Reports no additional cardiovascular complaints Gastrointestinal: Gastrointestinal: Reports no additional gastrointestinal complaints PMFSH Past Medical History Medical History Anemia CKD (chronic kidney disease) Constipated CVA (cerebral vascular accident) Depression Diabetes mellitus with hyperglycemia Essential hypertension Fecal occult blood test positive Hyperlipidemia LDL goal <100 Hypertriglyceridemia Normocytic anemia Obesity (BMI 30-39.9) Pancreatitis Type 2 diabetes mellitus with chronic kidney disease Type 2 diabetes mellitus with hyperglycemia Vitamin D deficiency Surgical History History of appendectomy History of esophagogastroduodenoscopy (EGD) Hx of cholecystectomy Hx of colonoscopy Hx of heart bypass surgery Family History Family History Father No problems noted. 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 Do you presently have visiting nurse or other home services: No Alcohol intake: never Patient Tobacco Use Status: Never used Tobacco Advance Directives: Yes Advance Directives on File: Yes Advance Directives Date on File: 02/06/21 Nutrition Risks: No Nutritional Risk service: No Current occupational status: disabled Physical Exam ED Vital Signs: Vital Signs - 24 hr 12/29/22 11:38 12/29/22 14:02 12/29/22 14:24 Temperature 97.4 F 97.7 F 97.7 F Pulse Rate 60 57 57 Respiratory Rate 16 18 Blood Pressure 106/36 L 122/48 L Pulse Oximetry 99 Oxygen Delivery Method Room Air BMI result Body Mass Index 38.8 Const General: cooperative Nutritional Appearance: average body habitus Orientation/consciousness: patient oriented x3 Limitations: no limitations HENMT Head: Yes normal to inspection Face and sinus: Yes normal facial exam Throat: Yes posterior oropharynx normal Neck Neck: Yes normal visual inspection Chest Chest palpation & inspection: normal inspection of the chest Resp Effort & Inspection: normal respiratory effort Auscultation: clear to auscultation bilaterally Cardio Jugular venous distension: no JVD Rate: regular rate Rhythm: regular rhythm GI Inspection: Yes normal to inspection Palpation (GI): Soft to palpation Auscultation: normal bowel sounds Rectal Exam - Female: other (brown stools) Skin General skin exam: no rashes or lesions noted Lesions: no lesions Rashes: no rashes Wounds: no wounds Neuro General: patient oriented x3 Medications Administered Discontinued Medications Generic Name Dose Route Start Last Admin Trade Name Freq PRN Reason Stop Dose Admin Sodium Chloride 1,000 mls @ 999 mls/hr 12/29/22 11:45 12/29/22 13:11 Ns IV 12/29/22 12:45 999 mls/hr .Q1H1M YOVANA Administration Sodium Chloride 100 mls @ 100 mls/hr 12/29/22 13:05 12/29/22 14:28 Ns IV 12/29/22 14:04 100 mls/hr ONCE ONE Administration Sodium Polystyrene Sulfonate 30 gm 12/29/22 13:49 12/29/22 14:41 Sodium Polystyrene Sulfon/Sorb 15 Gm/60 Ml Oral.Susp PO 12/29/22 13:50 30 gm ONCE ONE Administration Medical Decision Making Medical Decision Making [facility] Narrative: presented with anemia will need transfusion admission w/u Differential Diagnosis Differential Diagnoses: The differential diagnosis associated with the presentation includes GI bleeding/iron deficiency anemia Admission/Observation Consideration of admission/observation: Escalation of care including admission/observation considered Consult Healthcare Provider Management of the patient was discussed with: Hospitalist Lab Data [facility] Lab Attestation statement: I reviewed the patient's lab results. 12/29/22 12:36 12/29/22 12:36 Labs: Lab Results 12/29/22 12/29/22 12/29/22 Range/Units 12:36 12:36 12:36 WBC 6.1 (4.8-10.8) X10*3/uL RBC 2.49 L D (4.20-5.50) X10*6/uL Hgb 6.2 L* D (12.0-16.0) g/dl Hct 20.7 L* D (37.0-47.0) % MCV 83.1 (80.0-98.0) fL MCH 24.9 L (27.0-33.0) pg MCHC 30.0 L (31.0-35.0) g/dl RDW 17.0 H (11.0-16.0) % Plt Count 230 (160-400) X10*3/uL MPV 10.8 (9.4-12.3) fL Immature Gran % (Auto) 0.2 (0.0-0.4) % Neut % (Auto) 58.9 (45-73) % Lymph % (Auto) 27.0 (20-40) % [place]key % (Auto) 10.1 (2-11) % Eos % (Auto) 3.3 (0-4) % Baso % (Auto) 0.5 (0-2) % Lymph # (Auto) 1.7 (1.2-4.9) X10*3/uL [place] # (Auto) 0.6 (0.1-1.2) X10*3/uL Eos # (Auto) 0.2 (0.0-0.4) X10*3/uL Baso # (Auto) 0.0 (0.0-0.2) X10*3/uL Abs Immat Gran (auto) 0.01 (0.00-0.03) X10*3/uL Absolute Neuts (auto) 3.6 (2.0-8.3) x10*3/uL Absolute Nucleated RBC 0.000 (0.0-0.012) X10*3/uL Nucleated RBC % (auto) 0.0 (0.0-0.2) /100WBC Absolute Retic 0.056 (0.026-0.095) X10*6/uL Percent Retic 2.3 H (0.5-1.8) % Immature Retic Fraction 31.4 H (3.0-15.9) % Retic Hgb Equivalent 22.4 L (30.0-35.0) pg Sodium 139 (135-145) mmol/L Potassium 5.8 H (3.3-5.1) mmol/L Chloride 114 H (96-108) mmol/L Carbon Dioxide 18 L (22-29) mmol/L Anion Gap 13 (12-20) BUN 64 H (9-16) mg/dL Creatinine 1.76 H (0.5-1.4) mg/dL Estim Creat Clear Calc 25.3 Estimated GFR 28 Random Glucose 190 H (60-115) mg/dL Calcium 8.7 D (8.4-10.2) mg/dL Iron 35 (30-160) mcg/dL TIBC 366 (228-428) mcg/dL % Saturation 10 L (15-50) % Unsat Iron Binding 331 ug/dL Ferritin 8 L (10-250) ng/mL Total Bilirubin 0.2 (0.0-1.0) mg/dL AST 22 (5-31) U/L ALT 10 (0-31) U/L Alkaline Phosphatase 194 H (39-117) U/L Lactate Dehydrogenase 248 H (122-220) U/L B-Natriuretic Peptide 181 H (<100) pg/mL Total Protein 6.7 (6.5-8.0) g/dL Albumin 3.2 L (3.5-5.0) g/dL Lipase (8-78) U/L Stool Occult Blood (NEGATIVE) Blood Type Antibody Screen Crossmatch 12/29/22 12/29/22 12/29/22 Range/Units 12:36 12:55 13:02 WBC (4.8-10.8) X10*3/uL RBC (4.20-5.50) X10*6/uL Hgb (12.0-16.0) g/dl Hct (37.0-47.0) % MCV (80.0-98.0) fL MCH (27.0-33.0) pg MCHC (31.0-35.0) g/dl RDW (11.0-16.0) % Plt Count (160-400) X10*3/uL MPV (9.4-12.3) fL Immature Gran % (Auto) (0.0-0.4) % Neut % (Auto) (45-73) % Lymph % (Auto) (20-40) % [place]key % (Auto) (2-11) % Eos % (Auto) (0-4) % Baso % (Auto) (0-2) % Lymph # (Auto) (1.2-4.9) X10*3/uL [place] # (Auto) (0.1-1.2) X10*3/uL Eos # (Auto) (0.0-0.4) X10*3/uL Baso # (Auto) (0.0-0.2) X10*3/uL Abs Immat Gran (auto) (0.00-0.03) X10*3/uL Absolute Neuts (auto) (2.0-8.3) x10*3/uL Absolute Nucleated RBC (0.0-0.012) X10*3/uL Nucleated RBC % (auto) (0.0-0.2) /100WBC Absolute Retic (0.026-0.095) X10*6/uL Percent Retic (0.5-1.8) % Immature Retic Fraction (3.0-15.9) % Retic Hgb Equivalent (30.0-35.0) pg Sodium (135-145) mmol/L Potassium (3.3-5.1) mmol/L Chloride (96-108) mmol/L Carbon Dioxide (22-29) mmol/L Anion Gap (12-20) BUN (9-16) mg/dL Creatinine (0.5-1.4) mg/dL Estim Creat Clear Calc Estimated GFR Random Glucose (60-115) mg/dL Calcium (8.4-10.2) mg/dL Iron (30-160) mcg/dL TIBC (228-428) mcg/dL % Saturation (15-50) % Unsat Iron Binding ug/dL Ferritin (10-250) ng/mL Total Bilirubin (0.0-1.0) mg/dL AST (5-31) U/L ALT (0-31) U/L Alkaline Phosphatase (39-117) U/L Lactate Dehydrogenase (122-220) U/L B-Natriuretic Peptide (<100) pg/mL Total Protein (6.5-8.0) g/dL Albumin (3.5-5.0) g/dL Lipase 31 (8-78) U/L Stool Occult Blood NEGATIVE (NEGATIVE) Blood Type A Positive Antibody Screen NEGATIVE Crossmatch See Detail Independent Interpretation I performed an independent interpretation of an: EKG (sinus bradycardia 50) and Plain X-Ray Interpretation: normal CXR Radiology Impression Discussion of test interpretation with radiology: I have reviewed the radiologist's reading. Radiologist Impression: normal Independent Historian Clinical information obtained from an independent historian. History obtained from or confirmed by: Other (PCP from [facility]) Critical Care Time Critical Care Time Critical Care Time: Yes Total Critical Care Time: 60 Attestation: blood transfusion speaking with PCP/hospitalist/taking care of the pt Discharge Plan Discharge Clinical Impression: Anemia
[2022-12-29 13:04] LABS: B Type Natriuretic Peptide 181 pg/mL (<100)
[2022-12-29 13:08] LABS: OBS Int Ctl Valid YES; OBS1 NEGATIVE (NEGATIVE)
[2022-12-29] MEDS: 0.9 % Sodium Chloride 1,000 ML 999 ML IV (13:11)
--- NOTE | 2022-12-29 14:37 | P.HPHOSP_ITS ---
History of Present Illness Date of Service: 12/29/22 Attending physician on admission: Chance Rose Chief Complaint: weakness, fatigue, sob, cp 72-year-old female with history of insulin-dependent type 2 diabetes, CKD stage 3, iron deficiency anemia, hyperlipidemia, hypertension, history of autoimmune hepatitis/cholangitis who presented to the ED earlier today at the recommendation of her PCP due to symptomatic anemia. The patient has been experiencing dyspnea on exertion, chest tightness, generalized weakness, orthopnea, and fatigue ongoing for about 3 days. She denies any epistaxis, melena, hematochezia. Has had generalized abdominal pain and increased bloating/belching. NO fevers, chills, recent illness, diarrhea, constipation, lightheadedness, syncope. On arrival, blood pressure somewhat soft at 106/36 119/44. Vitals otherwise stable. There is no leukocytosis. H/H 6.2/20.7%, MCV 83.1 (H/H at [facility] 07/24 10.4/32.7%, MCV 84.7). Platelets 230. Creatinine 1.76, baseline 1.2 from [facility] 07/24. BUN 64, was 30 at [facility] 07/24. Sodium 1.39, potassium 5.8, chloride 114, CO2 18. BNP 181. Troponin pending. Stool occult blood negative. CXR ordered. EKG shows sinus bradycardia, no significant ST/T-wave abnormality. Review of Systems Review of Systems: General: No fevers, malaise, unintentional weight loss Cardiovascular: +chest pain. No palpitations, or leg edema Respiratory: +sob. No wheezing, cough GI: No abdominal pain, nausea, vomiting, diarrhea, constipation, melena, hematochezia : No dysuria, hematuria, increased urinary frequency, decreased urinary output MSK: No myalgia, back pain Neuro: No headaches, weakness, paresthesias Skin: No rashes or lesions [facility] Medical History Anemia CKD (chronic kidney disease) Constipated CVA (cerebral vascular accident) Depression Diabetes mellitus with hyperglycemia Essential hypertension Fecal occult blood test positive Hyperlipidemia LDL goal <100 Hypertriglyceridemia Normocytic anemia Obesity (BMI 30-39.9) Pancreatitis Type 2 diabetes mellitus with chronic kidney disease Type 2 diabetes mellitus with hyperglycemia Vitamin D deficiency Family History Father No problems noted. 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 Do you presently have visiting nurse or other home services: No Alcohol intake: never Patient Tobacco Use Status: Never used Tobacco Advance Directives Date on File: 02/06/21 service: No Current occupational status: disabled [employer] Allergies Allergy/AdvReac Type Severity Reaction Status Date / Time No Known Allergies Allergy Verified 12/29/22 11:37 [No Known Allergies*] Active Medications: Current Medications Acetaminophen (Acetaminophen 325 Mg Tablet) 650 mg PO Q6H PRN PRN Reason: Pain, Mild (Pain Scale 1-3) Docusate Sodium (Docusate Sodium 100 Mg Capsule) 100 mg PO DAILY PRN PRN Reason: Constipation Ondansetron HCl (Ondansetron Hcl 4 Mg/2 Ml Vial) 4 mg IVPUSH Q8H PRN PRN Reason: Nausea and Vomiting Sodium Chloride (0.9 % Sodium Chloride Flush 3 Ml Syringe) 3 [facility] Medications Medication Instructions Recorded Confirmed Last Taken Type albuterol sulfate 90 mcg/actuation 2 puff inhalation Q6H PRN Wheezing 02/27/20 05/29/22 04/05/21 History aerosol inhaler (Ventolin HFA) aspirin 81 mg tablet,delayed 81 mg PO DAILY 02/27/20 05/29/22 04/05/21 History release (Adult Aspirin Regimen) cholecalciferol (vitamin D3) 50 2,000 unit PO DAILY 02/27/20 05/29/22 04/05/21 History mcg (2,000 unit) capsule famotidine 20 mg tablet 20 mg PO DAILY 02/27/20 05/29/22 04/05/21 History metoprolol tartrate 25 mg tablet 12.5 mg PO DAILY 02/27/20 05/29/22 04/05/21 History cetirizine 10 mg capsule (All Day 10 mg PO DAILY PRN Allergic 11/16/20 05/29/22 04/05/21 History Allergy (cetirizine)) Symptoms melatonin 5 mg capsule 5 mg PO BEDTIME PRN Insomnia 11/16/20 05/29/22 Unknown History calcium polycarbophil 625 mg 1 tab PO DAILY 02/05/21 05/29/22 04/05/21 History tablet (Fiber (calcium polycarbophil)) enalapril maleate 5 mg tablet 1 tab PO DAILY 02/05/21 05/29/22 04/05/21 History ferrous fumarate 324 mg (106 mg 1 tab PO DAILY 02/05/21 05/29/22 04/05/21 History iron) tablet (Ferrocite) rifaximin 550 mg tablet (Xifaxan) 1 tab PO BID 02/05/21 05/29/22 04/05/21 History amlodipine 10 mg tablet 10 mg PO QAM 12/29/22 Unknown History insulin lispro 100 unit/mL 12 unit subcut TID 12/29/22 Unknown History subcutaneous pen (Humalog KwikPen (U-100) Insulin) multivitamin with folic acid 400 1 tab PO QAM 12/29/22 Unknown History mcg tablet (Daily-Katie (with folic acid)) pantoprazole 40 mg tablet,delayed 40 mg PO DAILY 12/29/22 Unknown History release quetiapine 25 mg tablet 50 mg PO Q12H PRN anxiety 12/29/22 Unknown History trazodone 100 mg tablet 100 mg PO BEDTIME 12/29/22 Unknown History Physical Exam Vital Signs and Narrative: Vital Signs: Last Vital Signs Temp 97.7 F 12/29/22 14:24 Pulse 57 12/29/22 14:24 Resp 18 12/29/22 14:24 BP 122/48 L 12/29/22 14:24 Pulse Ox 99 12/29/22 11:38 O2 Del Method Room Air 12/29/22 11:38 BMI result Body Mass Index 38.8 Constitutional - Awake and Alert, No apparent distress Eyes - PERRLA, EOMI Cardiovascular - S1S2, RRR, No edema Respiratory - Normal lung expansion, Normal respiratory effort, No respiratory distress, scattered crackles lower lobes bilaterally Gastrointestinal - mild diffuse ttp, ND; +BS; No rebound or guarding Extremities - no calf tenderness bilaterally, no swelling Skin - Warm/Dry. Ecchymotic lesions lower abdomen b/l Neurological - Alert & oriented x3 Psychological - Appropriate affect Results Labs 12/29/22 12:36 12/29/22 12:36 Labs: Laboratory Results - last 24 hr 12/29/22 12/29/22 12/29/22 12:36 12:36 12:36 MCV 83.1 MCH 24.9 L MCHC 30.0 L RDW 17.0 H Plt Count 230 MPV 10.8 Immature Gran % (Auto) 0.2 Neut % (Auto) 58.9 Lymph % (Auto) 27.0 [place] % (Auto) 10.1 Eos % (Auto) 3.3 Baso % (Auto) 0.5 Lymph # (Auto) 1.7 [place] # (Auto) 0.6 Eos # (Auto) 0.2 Baso # (Auto) 0.0 Abs Immat Gran (auto) 0.01 Absolute Neuts (auto) 3.6 Absolute Nucleated RBC 0.000 Nucleated RBC % (auto) 0.0 Anion Gap 13 Estim Creat Clear Calc 25.3 Estimated GFR 28 Random Glucose 190 H Calcium 8.7 D Total Bilirubin 0.2 AST 22 ALT 10 Alkaline Phosphatase 194 H B-Natriuretic Peptide 181 H Total Protein 6.7 Albumin 3.2 L Lipase Stool Occult Blood Blood Type Antibody Screen Crossmatch 12/29/22 12/29/22 12/29/22 12:36 12:55 13:02 MCV MCH MCHC RDW Plt Count MPV Immature Gran % (Auto) Neut % (Auto) Lymph % (Auto) [place] % (Auto) Eos % (Auto) Baso % (Auto) Lymph # (Auto) [place] # (Auto) Eos # (Auto) Baso # (Auto) Abs Immat Gran (auto) Absolute Neuts (auto) Absolute Nucleated RBC Nucleated RBC % (auto) Anion Gap Estim Creat Clear Calc Estimated GFR Random Glucose Calcium Total Bilirubin AST ALT Alkaline Phosphatase B-Natriuretic Peptide Total Protein Albumin Lipase 31 Stool Occult Blood NEGATIVE Blood Type A Positive Antibody Screen NEGATIVE Crossmatch See Detail Assessment and Plan (1) Symptomatic anemia: Status: Acute Plan 72-year-old female with history of insulin-dependent type 2 diabetes, CKD stage 3, iron deficiency anemia, hyperlipidemia, hypertension, history of autoimmune hepatitis/cholangitis admitted for symptomatic anemia with unclear etiology. #Acute on chronic symptomatic anemia- etiology unclear at this time -Stool occult blood negative, denies melena/hematochezia, but does have history of GI bleed -H/H 6.2/20.7%, MCV 83.1. (H/H at [facility] 07/24 10.4/32.7%, MCV 84.7) -Transfuse 1 unit packed RBC in ED -Iron panel, LDH, haptoglobin, retic count pending -Hematology consult -Given elevated BUN, will cover with IV PPI -Gastroentology consult -Repeat CBC @7pm. Follow CBC -hold aspirin -Monitor on telemetry #Acute kidney injury -CKD stage 3 at baseline -likely secondary to hypoperfusion due to above -Creat 1.72, baseline 1.2 ([facility]). BUN 60. -Transfuse as above -Avoid nephrotoxins -Follow BMP, consider nephro if not improving #Elevated BNP -Concern for CHF. BNP 181. CXR ordered -Give 20 units lasix with transfusion -cardiac diet #Chest pain -likely secondary to above -EKG non ischemic. Troponin level pending # insulin-dependent type 2 diabetes -dose adjusted basal insulin -Humalog on sliding scale -POC glucose -diabetic diet # hypertension -blood pressure reasonably controlled -continue home meds #HLD -continue statin #GERD -hold po ppi, on iv # chronic iron deficiency anemia -see above, continue ferrous fumarate DVT prophylaxis-SCPs DNR/DNI Pt requires inpatient stay of at least 2 midnights for management of acute symptomatic anemia of unclear etiology requiring blood transfusion, close monito ring, and additional workup into severe anemia Time Spent With Patient Time: Total time managing care of this patient today ____ minutes. Quality Stroke Does the patient have a stroke diagnosis?: No VTE Prior VTE?: No VTE Risk Level:: Medical - moderate - high VTE Device Contraindication: Treatment Not Indicated VTE Drug Contraindication: N/A - Med Ordered
[2022-12-29] MEDS: Sodium Polystyrene Sulfon/Sorb 15 GM/60 ML ORAL.SUSP 30 GM PO (14:41)
[2022-12-29 15:06] LABS: Immature Retic Fraction 31.4 % (3.0-15.9); Retic HGB Equivalent 22.4 pg (30.0-35.0); Reticulocyte Percent 2.3 % (0.5-1.8); Reticulocytes Absolute 0.056 X10*6/uL (0.026-0.095)
--- NOTE | 2022-12-29 15:18 | PM.GICN ---
History of Present Illness Data of Consult Service Date: 12/29/22 Requesting physician: Cordelia Rodriguez Primary Care Provider: Lo Donato MD HPI Reason for consult: symptomatic anemia 72 year old Macedonian-speaking female with insulin-dependent type 2 diabetes, CKD stage 3, iron deficiency anemia, hyperlipidemia, hypertension, history of autoimmune hepatitis/cholangitis seen at [facility] ED on 12/29/22 at the recommendation of her PCP due to symptomatic anemia.? Pt is known to me from past evaluation in the GI clinic for autoimmune cholangitis and cirrhosis. History was obtained with the help of [facility] storm chaser, Jerry. The patient complained of dyspnea on exertion, chest tightness, generalized weakness, orthopnea, and fatigue ongoing for about 3 days.? She denied any epistaxis, melena, hematochezia and admits to having brown stools.? Pt denies heartburn and admits to intermittent mild dysphagia to solids and liquids. Pt states she eats small meals several times a day. Has had generalized abdominal pain and increased bloating/belching. Pt denied fevers, chills, recent illness, diarrhea, constipation, lightheadedness, syncope.? On arrival, blood pressure somewhat soft at 106/36 119/44.? Labs showed no leukocytosis.? H/H 6.2/20.7%, MCV 83.1 (H/H at [facility] 07/24 10.4/32.7%, MCV 84.7).? Platelets 230.? Creatinine 1.76, baseline 1.2 from [facility] 07/24.? BUN 64, was 30 at [facility] 07/24.? Sodium 1.39, potassium 5.8, chloride 114, CO2 18.? BNP 181.? Troponin pending.? Stool occult blood negative.? EKG shows sinus bradycardia, no significant ST/T-wave abnormality. Denies known FH of Liver problems, colon polyps or colon cancer. DM x > 20 yrs GB surgery > 20 yrs ago 07/21 patient presented to [facility] [place] [place] with dyspnea nausea and vomiting. She was found to have a non ST elevation DE. She underwent PCI to the LAD with a drug eluting stent and discharged on aspirin and Brilinta. PAST GI HISTORY BY REVIEW OF MEDICAL RECORDS: 04/2021 EGD was performed by Dr. Hernandez and showed mild portal hypertensive gastropathy 04/2021 colonoscopy was performed by Dr. Swain and showed: At 20 cm, was an approximately 10 to 12 mm grossly adenomatous polyp, which was snared with a hot snare and recovered by suction.? The polypectomy site appeared clean, without any sign of residual polyp nor bleeding.? Two resolution clips were applied with good deployment and good hemostasis due to her underlying cirrhosis and the fact that she may have to go back on her Brilinta for the underlying coronary artery disease. IMPRESSION:? 1. Colon polyp, status post hot snare polypectomy and placement of 2 resolution clips. 2. Diverticulosis. 3. Internal hemorrhoids. 4. Somewhat edematous appearing colon consistent with the underlying portal hypertension. ?PLAN:? The results of the pathology will be checked.? Given the minimal findings and her age, I do not think she will need any further screening colonoscopies.? Review of Systems Review of Systems: General: No fevers, malaise, unintentional weight loss Cardiovascular: +chest pain. No palpitations, or leg edema Respiratory: +sob. No wheezing, cough GI: No abdominal pain, nausea, vomiting, diarrhea, constipation, melena, hematochezia : No dysuria, hematuria, increased urinary frequency, decreased urinary output MSK: No myalgia, back pain Neuro: No headaches, weakness, paresthesias Skin: No rashes or lesions PMFSH Past Medical History Medical History Anemia CKD (chronic kidney disease) Constipated CVA (cerebral vascular accident) Depression Diabetes mellitus with hyperglycemia Essential hypertension Fecal occult blood test positive Hyperlipidemia LDL goal <100 Hypertriglyceridemia Normocytic anemia Obesity (BMI 30-39.9) Pancreatitis Type 2 diabetes mellitus with chronic kidney disease Type 2 diabetes mellitus with hyperglycemia Vitamin D deficiency Family History Family History Father No problems noted. 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 Do you presently have visiting nurse or other home services: Yes (CAMPAIGN ASSOCIATE) Alcohol intake: never Patient Tobacco Use Status: Never used Tobacco Advance Directives Date on File: 02/06/21 service: No Current occupational status: disabled Meds Allergies Allergy/AdvReac Type Severity Reaction Status Date / Time No Known Allergies Allergy Verified 12/31/22 12:34 [No Known Allergies*] Active Medications: Current Medications Acetaminophen (Acetaminophen 325 Mg Tablet) 650 mg PO Q6H PRN PRN Reason: Pain, Mild (Pain Scale 1-3) Dextrose (Dextrose 50 % 25 Gm/50 Ml Syringe) 25 gm IVPUSH Q15M PRN; Protocol PRN Reason: per Hypoglycemia Standing Ord. Docusate Sodium (Docusate Sodium 100 Mg Capsule) 100 mg PO DAILY PRN PRN Reason: Constipation Glucose (Glucose Gel 15 Gm Gel..Gram.) 15 gm PO Q15M PRN; Protocol PRN Reason: per Hypoglycemia Standing Ord. Insulin Human Lispro (Insulin Lispro 100 Unit/Ml 3 Ml Vial) 0 [facility]; Protocol Ondansetron HCl (Ondansetron Hcl 4 Mg/2 Ml Vial) 4 mg IVPUSH Q8H PRN PRN Reason: Nausea and Vomiting Pantoprazole Sodium (Pantoprazole Sodium 40 Mg/10 Ml Vial) 40 mg IVPUSH BID@0630,1630 [facility] Sodium Chloride (0.9 % Sodium Chloride Flush 3 Ml Syringe) 3 [facility] Home Medications Medication Instructions Recorded Confirmed Last Taken Type aspirin 81 mg tablet,delayed 81 mg PO DAILY 02/27/20 12/29/22 04/05/21 History release (Adult Aspirin Regimen) cholecalciferol (vitamin D3) 50 2,000 unit PO DAILY 02/27/20 12/29/22 04/05/21 History mcg (2,000 unit) capsule metoprolol tartrate 25 mg tablet 12.5 mg PO DAILY 02/27/20 12/29/22 04/05/21 History cetirizine 10 mg capsule (All Day 10 mg PO DAILY PRN Allergic 11/16/20 12/29/22 04/05/21 History Allergy (cetirizine)) Symptoms linaclotide 145 mcg capsule 145 mcg PO DAILY PRN GI UPSET 12/29/22 12/29/22 Unknown History (Linzess) pantoprazole 40 mg tablet,delayed 40 mg PO DAILY 12/29/22 12/29/22 Unknown History release quetiapine 25 mg tablet 25 mg PO Q12H PRN anxiety 12/29/22 12/29/22 Unknown History trazodone 100 mg tablet 100 mg PO BEDTIME 12/29/22 12/29/22 Unknown History Physical Exam Vital Signs: Vital Signs: Last Vital Signs Temp 97.7 F 12/29/22 14:40 Pulse 58 12/29/22 14:40 Resp 18 12/29/22 14:40 BP 119/44 L 12/29/22 14:40 Pulse Ox 99 12/29/22 11:38 O2 Del Method Room Air 12/29/22 11:38 BMI result Body Mass Index 38.8 Const: General: healthy appearing and no acute distress Nutritional Appearance: obese Orientation/consciousness: patient oriented x3 Limitations: language barrier and physical limitations HEENT: Head: Yes normal to inspection Ears: hearing grossly normal bilaterally Eyes: Sclerae: sclerae normal Pupils: Equal, round and reactive pupils present Neck: Neck: Yes normal visual inspection Chest: Chest palpation & inspection: normal inspection of the chest Resp: Effort & Inspection: normal respiratory effort Auscultation: clear to auscultation bilaterally Cardio: Palpation: normal PMI Rate: regular rate Rhythm: regular rhythm Heart sounds: S1 normal heart sound present, S2 normal heart sound present and no murmurs GI: Palpation (GI): Soft to palpation, nontender and No hepatosplenomegaly present Auscultation: normal bowel sounds Rectal Exam - Female: deferred Skin: General skin exam: no rashes or lesions noted Neuro: General: patient oriented x3, gait normal and moves all extremities Cranial nerves: Yes Equal, round and reactive pupils present Extrem: General: Yes pedal edema (trace pitting edema bilaterally) Psych: Appearance: grossly normal Mental Status: mental status grossly normal Results Labs 01/02/23 10:07 01/01/23 06:14 Labs: Short CBC 12/29/22 Range/Units 12:36 WBC 6.1 (4.8-10.8) X10*3/uL Hgb 6.2 L* D (12.0-16.0) g/dl Hct 20.7 L* D (37.0-47.0) % Plt Count 230 (160-400) X10*3/uL BMP 12/29/22 12:36 Sodium 139 Potassium 5.8 H Chloride 114 H Carbon Dioxide 18 L BUN 64 H Creatinine 1.76 H Calcium 8.7 D Liver Function 12/29/22 Range/Units 12:36 Total Bilirubin 0.2 (0.0-1.0) mg/dL AST 22 (5-31) U/L ALT 10 (0-31) U/L Alkaline Phosphatase 194 H (39-117) U/L Albumin 3.2 L (3.5-5.0) g/dL Assessment and Plan (1) Anemia: Status: Deleted (2) GERD (gastroesophageal reflux disease): Status: Inactive (3) Iron deficiency anemia: Status: Inactive (4) Pancreatic cyst: Status: Inactive (5) Autoimmune cholangitis: Status: Inactive Pt started on ursodiol for autoimmune cholangitis with improvement in LFTs and Alk P levels Plan 72 year old Macedonian-speaking female with insulin-dependent type 2 diabetes, CKD stage 3, iron deficiency anemia, hyperlipidemia, hypertension, history of autoimmune hepatitis/cholangitis seen at [facility] ED on 12/29/22 at the recommendation of her PCP due to symptomatic anemia.? Pt is known to me from past evaluation in the GI clinic for autoimmune cholangitis and cirrhosis. The patient complained of dyspnea on exertion, chest tightness, generalized weakness, orthopnea, and fatigue ongoing for about 3 days.? She denied any epistaxis, melena, hematochezia and admits to having brown stools.? Has had generalized abdominal pain and increased bloating/belching. Acute on chronic anemia ? UGI source versus hemolysis Past EGD in 2020 showed portal hypertensive gastropathy. RECOMMENDATIONS: 1. Agree with IV PPI and monitoring CBC and checking Troponin levels 2. Further evaluation with EGD in the am if Troponin levels are normal 12/30/22 ADDENDUM: Troponin elevated at 295.9 yesterday evening and 183.8 this am. EGD tentatively rescheduled for tomorrow if pt is cleared by Cardiology (pt scheduled for an ECho and Cardiology consult today) Time Spent With Patient Time: Total time managing care of this patient today ____ minutes. Procedures Date of Service Date of Service: 02/11/23
--- NOTE | 2022-12-29 15:21 | PHA.MEDREC ---
Pharmacy Consult ? Medication Reconciliation Pharmacy has completed the medication reconciliation. Received list from patient's [facility]. Cindy Cabrera, MaldonadoD
[2022-12-29 15:22] LABS: Iron 35 mcg/dL (30-160); Lactate Dehydrogenase 248 U/L (122-220); Percent Iron Saturation 10 % (15-50); Total Iron Binding Capacity 366 mcg/dL (228-428); Unsaturated Iron Binding 331 ug/dL
--- NOTE | 2022-12-29 16:06 | PC.NURSE ---
iv lasix ordered RBC's are running will give after blood is finished.
--- NOTE | 2022-12-29 16:09 | PM.HEMONCCN ---
Subjective - Subjective Chief complaint: Weakness Patient: new to practice Consult date: 12/29/22 Primary Care Provider: Lo Donato MD HPI - Consult Narrative Reason for consult: Anemia Narrative: Hannah Grey is a 72 year old female with history of chronic kidney disease stage 3, iron deficiency anemia, diabetes mellitus, autoimmune cholangitis,cirrhosis who presented to emergency department because of symptomatic anemia. Patient was experiencing dyspnea on exertion along with chest tightness and generalized weakness for about 3 days. She reports no hematochezia, melena, nausea or emesis. She has chronic abdominal pain. She denies fever or chills. On arrival, blood pressure somewhat soft at 106/36 119/44.? Labs showed no leukocytosis.? H/H 6.2/20.7%, MCV 83.1 (H/H at [facility] 07/24 10.4/32.7%, MCV 84.7).? Platelets 230.? Creatinine 1.76, baseline 1.2 from [facility] 07/24.? BUN 64, was 30 at [facility] 07/24. Stool occult testing was negative. She has received 1 unit PRBC. Review of Systems - Constitutional Reports as per HPI, Reports fatigue, Reports lack of energy, Reports malaise [facility] Medical History: Medical History (Last Reviewed 12/29/22 @ 21:04 by Berna Alexis RN) Anemia CKD (chronic kidney disease) Constipated CVA (cerebral vascular accident) Depression Diabetes mellitus with hyperglycemia Essential hypertension Fecal occult blood test positive Hyperlipidemia LDL goal <100 Hypertriglyceridemia Normocytic anemia Obesity (BMI 30-39.9) Pancreatitis Type 2 diabetes mellitus with chronic kidney disease Type 2 diabetes mellitus with hyperglycemia Vitamin D deficiency Family History: Family History (Last Reviewed 12/29/22 @ 21:05 by Berna Alexis RN) Father No problems noted. Mother Diabetes mellitus CVD (cardiovascular disease) Sister Cancer Son Diabetes mellitus Surgical History: Surgical History (Last Reviewed 12/29/22 @ 21:05 by Berna Alexis RN) History of appendectomy History of esophagogastroduodenoscopy (EGD) Hx of cholecystectomy Hx of colonoscopy Hx of heart bypass surgery Social History: Social History (Last Reviewed 12/29/22 @ 21:05 by Berna Alexsi RN) Living Situation History: Household Members: Other Household Members Other:: daughter Housing: Apartment Housing Other:: [employer] services Do you presently have visiting nurse or other home services: Yes Do you presently have visiting nurse or other home services comment: [employer] Tobacco History: Patient Tobacco Use Status: Never used Tobacco Advance Directives: Advance Directives Date on File: 02/06/21 Occupation Assessmet: service: No Current occupational status: disabled Home Medications and Allergies Current Medications: Current Medications Acetaminophen (Acetaminophen 325 Mg Tablet) 650 mg PO Q6H PRN PRN Reason: Pain, Mild (Pain Scale 1-3) Amlodipine Besylate (Amlodipine Besylate 10 Mg Tablet) 10 mg PO DAILY [facility]; Protocol Dextrose (Dextrose 50 % 25 Gm/50 Ml Syringe) 25 gm IVPUSH Q15M PRN; Protocol PRN Reason: per Hypoglycemia Standing Ord. Docusate Sodium (Docusate Sodium 100 Mg Capsule) 100 mg PO DAILY PRN PRN Reason: Constipation Enalapril Maleate (Enalapril Maleate 5 Mg Tablet) 5 mg PO DAILY [facility]; Protocol Glucose (Glucose Gel 15 Gm Gel..Gram.) 15 gm PO Q15M PRN; Protocol PRN Reason: per Hypoglycemia Standing Ord. Insulin Glargine (Insulin Glargine,Hum.Rec.Anlog 100 Unit/Ml 10 Ml Vial) 30 unit SUBCUT BEDTIME [facility] Insulin Human Lispro (Insulin Lispro 100 Unit/Ml 3 Ml Vial) 0 unit SUBCUT QIDACHS [facility]; Protocol Loratadine (Loratadine 10 Mg Tablet) 10 mg PO DAILY PRN PRN Reason: Allergic Symptoms Metoprolol Tartrate (Metoprolol Tartrate 12.5 Mg Halftab) 12.5 mg PO DAILY [facility]; Protocol Ondansetron HCl (Ondansetron Hcl 4 Mg/2 Ml Vial) 4 mg IVPUSH Q8H PRN PRN Reason: Nausea and Vomiting Pantoprazole Sodium (Pantoprazole Sodium 40 Mg/10 Ml Vial) 40 mg IVPUSH BID@0630,1630 [facility] Quetiapine Fumarate (Quetiapine Fumarate 25 Mg Tablet) 25 mg PO Q12H PRN PRN Reason: anxiety Sodium Chloride (0.9 % Sodium Chloride Flush 3 Ml Syringe) 3 ml IVFLUSH QSHIFT [facility] Trazodone HCl (Trazodone Hcl 100 Mg Tablet) 100 mg PO BEDTIME [facility] Ursodiol (Ursodiol 300 Mg Capsule) 600 mg PO BID [facility] Vitamin D (Cholecalciferol (Vitamin D3) 25 Mcg Tablet) 50 mcg PO DAILY [facility] Home Medications Medication Instructions Recorded Confirmed Type aspirin 81 mg tablet,delayed 81 mg PO DAILY 02/27/20 12/29/22 History release (Adult Aspirin Regimen) cholecalciferol (vitamin D3) 50 2,000 unit PO DAILY 02/27/20 12/29/22 History mcg (2,000 unit) capsule metoprolol tartrate 25 mg tablet 12.5 mg PO DAILY 02/27/20 12/29/22 History cetirizine 10 mg capsule (All Day 10 mg PO DAILY PRN Allergic 11/16/20 12/29/22 History Allergy (cetirizine)) Symptoms enalapril maleate 5 mg tablet 1 tab PO DAILY 02/05/21 12/29/22 History amlodipine 10 mg tablet 10 mg PO QAM 12/29/22 12/29/22 History insulin glargine U-300 conc 300 40 unit subcut BEDTIME 12/29/22 12/29/22 History unit/mL (3 mL) subcutaneous pen (Toujeo Max U-300 SoloStar) insulin lispro 100 unit/mL 12 unit subcut TID 12/29/22 12/29/22 History subcutaneous pen (Humalog KwikPen (U-100) Insulin) linaclotide 145 mcg capsule 145 mcg PO DAILY PRN GI UPSET 12/29/22 12/29/22 History (Linzess) pantoprazole 40 mg tablet,delayed 40 mg PO DAILY 12/29/22 12/29/22 History release quetiapine 25 mg tablet 25 mg PO Q12H PRN anxiety 12/29/22 12/29/22 History trazodone 100 mg tablet 100 mg PO BEDTIME 12/29/22 12/29/22 History Allergies Allergy/AdvReac Type Severity Reaction Status Date / Time No Known Allergies Allergy Verified 12/29/22 11:37 [No Known Allergies*] Physical Exam Vital signs: Vital Signs Temp 97.7 F 12/29/22 14:40 Pulse 58 12/29/22 14:40 Resp 18 12/29/22 14:40 BP 119/44 L 12/29/22 14:40 Pulse Ox 99 12/29/22 11:38 O2 Del Method Room Air 12/29/22 11:38 Intake & Output 12/28/22 12/29/22 12/29/22 18:59 06:59 18:59 Intake Total 0 / 0 Balance 0 / 0 Intake: Intake (Blood Product) Amount 0 / 0 Red Blood Cells (E0382) Unit 0 / 0 [id number] Other: Weight 81.3 kg Weight 81.3 kg - Constitutional Present: mild distress, chronically ill appearing - Routine HEENT Exam Eye: Present: normal appearance, conjunctivae pale, PERRL - Routine Neck Exam Present: supple - Routine Respiratory Exam Present: decreased breath sounds. Absent: accessory muscle use - Routine Cardiovascular Exam Cardiovascular: Present: S1, S2 - Routine Abdominal Exam Absent: mass - Routine Extremities Exam Present: pulses intact Hem/Onc Consult Result - Labs CBC & Chem 7: 12/30/22 06:00 12/30/22 06:00 Labs: Short CBC 12/29/22 Range/Units 12:36 WBC 6.1 (4.8-10.8) X10*3/uL Hgb 6.2 L* D (12.0-16.0) g/dl Hct 20.7 L* D (37.0-47.0) % Plt Count 230 (160-400) X10*3/uL BMP 12/29/22 12:36 Sodium 139 Potassium 5.8 H Chloride 114 H Carbon Dioxide 18 L BUN 64 H Creatinine 1.76 H Calcium 8.7 D Liver Function 12/29/22 Range/Units 12:36 Total Bilirubin 0.2 (0.0-1.0) mg/dL AST 22 (5-31) U/L ALT 10 (0-31) U/L Alkaline Phosphatase 194 H (39-117) U/L Albumin 3.2 L (3.5-5.0) g/dL Assessment and Plan Patient Active problem list reviewed?: Yes (1) Anemia Status: Acute Assessment and plan: 1. This is a 72-year-old woman admitted for acute worsening of chronic anemia. She has a history of gastrointestinal bleeding, autoimmune hepatitis/cholangitis with liver cirrhosis, chronic kidney disease stage 3 and diabetes mellitus. Blood work shows worsening iron deficiency as well as kidney disease which could be causing her anemia. She may have occult GI blood losses as well. There is no evidence of hemolysis although low-grade hemolysis is also possible in patients with liver cirrhosis. Haptoglobin is pending. Agree with blood transfusion. Iron infusions would also be helpful. She is candidate for AYALA therapy based on her kidney disease after repletion of iron stores. I thank you for the consultation. - Time Spent With Patient Time Spent with Patient (in minutes): 15
[2022-12-29 16:12] LABS: Ferritin 8 ng/mL (10-250)
[2022-12-29] MEDS: Furosemide 20 MG/2 ML VIAL IVPUSH (17:36)
[2022-12-29] MEDS: 0.9 % Sodium Chloride Flush 3 ML SYRINGE IVFLUSH ×2 (17:37→21:10)
--- NOTE | 2022-12-29 18:46 | MHC.EDTECH ---
anbulated to br had supper
[2022-12-29 18:56] LABS: Troponin-I High Sensitivity 295.9 ng/L (<3.5-17.0)
--- NOTE | 2022-12-29 18:59 | PM.EVENT ---
Event Note Date of Service: 12/29/22 Event Note: Nurse reported elevated troponin. Noted patient is admitted for acute anemia, questionable GI bleed. Will defer anticoagulation and antiplatelet agents. Consulting cardiology and obtaining echo Time Spent With Patient Time: Total time managing care of this patient today ____ minutes.
[2022-12-29] MEDS: Pantoprazole Sodium 40 MG/10 ML VIAL IVPUSH (19:20)
[2022-12-29 19:39] LABS: Glucose, Whole Blood 143 mg/dL (60-115)
[2022-12-29] MEDS: Albuterol/Iprat 2.5/0.5MG 3 ML AMPUL.NEB INHALE (21:00)
[2022-12-29] MEDS: Acetaminophen 325 MG TABLET 650 MG PO (21:08)
[2022-12-29] MEDS: traZODone HCL 100 MG TABLET PO (21:08)
[2022-12-29] MEDS: UrsodioL 300 MG CAPSULE 600 MG PO (21:08)
[2022-12-29] MEDS: Insulin Glargine,Hum.rec.anlog 100 UNIT/ML 10 ML VIAL 30 UNIT SUBCUT (21:09)
[2022-12-29 22:26] LABS: MANUAL DIFF FLAG NO
[2022-12-29 22:27] LABS: Basophils Percent Auto 0.4 % (0-2); Eosinophils Absolute Auto 0.3 X10*3/uL (0.0-0.4); Eosinophils Percent Auto 3.6 % (0-4); Hemoglobin 7.8 g/dl (12.0-16.0); Imm Gran Abs Auto 0.03 X10*3/uL (0.00-0.03); Imm Gran Pct Auto 0.4 % (0.0-0.4); Lymphocytes Absolute Auto 1.9 X10*3/uL (1.2-4.9); Lymphocytes Percent Auto 26.8 % (20-40); Mean Corpuscular HGB Conc 31.2 g/dl (31.0-35.0); Mean Corpuscular Hemoglobin 26.2 pg (27.0-33.0); Mean Corpuscular Volume 83.9 fL (80.0-98.0); Mean Platelet Volume 10.6 fL (9.4-12.3); Monocytes Absolute Auto 0.7 X10*3/uL (0.1-1.2); Monocytes Percent Auto 9.2 % (2-11); Neutrophils Absolute Auto 4.2 x10*3/uL (2.0-8.3); Neutrophils Percent Auto 59.6 % (45-73); Platelet Count 242 X10*3/uL (160-400); Red Blood Count 2.98 X10*6/uL (4.20-5.50); Red Cell Distribution Width 16.6 % (11.0-16.0)
[2022-12-30] VITALS: BP 133/61; PULSE 76; RESP 16; TEMP 36.2; O2SAT 96
[2022-12-30 04:00] VITALS: BP 135/96; PULSE 85; RESP 16; TEMP 36.6; O2SAT 99
[2022-12-30 06:05] LABS: MANUAL DIFF FLAG NO
[2022-12-30 06:08] LABS: Basophils Absolute Auto 0.1 X10*3/uL (0.0-0.2); Basophils Percent Auto 0.8 % (0-2); Eosinophils Absolute Auto 0.2 X10*3/uL (0.0-0.4); Eosinophils Percent Auto 3.5 % (0-4); Hemoglobin 7.5 g/dl (12.0-16.0); Imm Gran Abs Auto 0.01 X10*3/uL (0.00-0.03); Imm Gran Pct Auto 0.2 % (0.0-0.4); Lymphocytes Absolute Auto 1.4 X10*3/uL (1.2-4.9); Lymphocytes Percent Auto 20.9 % (20-40); Mean Corpuscular HGB Conc 31.3 g/dl (31.0-35.0); Mean Corpuscular Hemoglobin 26.1 pg (27.0-33.0); Mean Corpuscular Volume 83.6 fL (80.0-98.0); Mean Platelet Volume 10.3 fL (9.4-12.3); Monocytes Absolute Auto 0.6 X10*3/uL (0.1-1.2); Monocytes Percent Auto 9.6 % (2-11); Neutrophils Absolute Auto 4.3 x10*3/uL (2.0-8.3); Platelet Count 238 X10*3/uL (160-400); Red Blood Count 2.87 X10*6/uL (4.20-5.50); Red Cell Distribution Width 16.6 % (11.0-16.0); White Blood Count 6.7 X10*3/uL (4.8-10.8)
[2022-12-30 06:27] LABS: Anion Gap 12 (12-20); Blood Urea Nitrogen 60 mg/dL (9-16); Calcium 8.9 mg/dL (8.4-10.2); Carbon Dioxide 21 mmol/L (22-29); Chloride 114 mmol/L (96-108); Creatinine Clr Calc Pharmacy 24.7; Estimated Glomerular Filt Rate 27; Glucose Random 80 mg/dL (60-115); Potassium 4.4 mmol/L (3.3-5.1); Sodium 143 mmol/L (135-145)
[2022-12-30 06:31] LABS: Troponin-I High Sensitivity 183.8 ng/L (<3.5-17.0)
[2022-12-30] MEDS: Pantoprazole Sodium 40 MG/10 ML VIAL IVPUSH ×2 (06:53→17:36)
--- NOTE | 2022-12-30 07:00 | CA_ITS ---
Transthoracic Echocardiogram Patient (Last, First, Middle): Hannah Grey, Gender: Female Date of : 1950 Age: 72 Procedure Date: 12/30/2022 Procedure Type: Transthoracic Echocardiogram Location: [facility] [place] Height: 144.78 cm Weight: 81.65 kg BSA: 1.72 m2 Heart Rate: 80 bpm BP: 124 / 66 mmHg Landscape Foreman: SB Referring MD: Jennifer Bragg MD Symptoms: NSTEMI Study Quality: Fair/Contrast ECG Rhythm: Sinus Conclusions: - Normal left ventricular size, thickness, and systolic function. The visually estimated ejection fraction is between 55-60%. Regional wall motion abnormalities can not be excluded due to suboptimal endocardial definition. In particular, cannot rule out distal anterior hypokinesis in some views. - Normal right ventricular cavity size and systolic function. - There is mild aortic valve stenosis. Findings Procedure Information Contrast agent, definity, is being given per protocol without apparent complications. The study quality is limited by patients body habitus. Left Ventricle Normal left ventricular size, thickness, and systolic function. The visually estimated ejection fraction is between 55-60%. Regional wall motion abnormalities can not be excluded due to suboptimal endocardial definition. Abnormal diastolic function is noted. Spectral Doppler is indicative of an impaired relaxation filling pattern. E/E prime ratio is between 8 and 15 consistent with indeterminate filling pressures. Right Ventricle Normal right ventricular cavity size and systolic function. Atria The left atrium was not well visualized. Aortic Valve There is a normal trileaflet aortic valve. There is mild calcification of the aortic valve. There is mild aortic valve stenosis. The peak aortic velocity is 2.02 m/s. The mean gradient is 9 mmHg. There is no aortic valve regurgitation. Mitral Valve There is mild mitral annular calcification. There is no mitral valve regurgitation. There is no mitral valve stenosis. Pulmonic Valve The pulmonic valve is likely normal. Tricuspid Valve Normal tricuspid valve structure. There is no tricuspid valve regurgitation. Tricuspid regurgitation envelope is inadequate for calculation of right ventricular systolic pressure. Normal right atrial pressure. Great Vessels All visible segments of the aorta are normal in size. The visualized portions of the pulmonary artery and branches are normal. Venous The inferior vena cava is normal in size and collapses greater than 50% with inspiration. Pericardium/Pleural There is no evidence of pericardial effusion. Prior Study Comparison No prior study available for comparison. Measurements 2D Linear Measurements IVSd: 0.80 0.6-0.9/0.6-1.0 cm LVIDd: 4.20 3.9-5.3/4.2-5.9 cm LVIDd Index: 2.44 2.4-3.2/2.2-3.1 cm/m2 LVIDs: 2.60 2.0-3.6 cm LVPWd: 0.90 0.7-1.1 cm LA Diam: 4.00 2.7-3.8/3.0-4.0 cm LAIDs Index: 2.33 1.5-2.3 cm/m2 LV Mass: 136.54 67-162/88-224 g LV Mass Index: 79.39 43-95/49-115 g/m2 LVOT Diam: 2.00 3.0+(-)1.3 cm 2D Systolic Function EF 4C: 63.30 >55% EF 2C: 65.20 >55% EF BiP: 63.50 >55% Mitral Valve MV Pk E: 0.91 MV PK A: 1.14 MV Decel Time: 193.00 E/A: 0.80 E'Lateral: 8.38 E'Medial: 6.74 E/E' Med: 13.50 E/E' Lat: 10.90 PHT: 56.00 MVA PHT: 3.93 Decel Bolivar: 4.73 Aortic Valve AoV Pk German: 2.02 AoV Mn German: 1.35 AoV VTI: 0.44 AoV Pk Grad: 16.00 Aov Mn Grad: 9.00 SAGE Cont.VTI: 1.60 LVOT LVOT Pk German: 0.99 LVOT Mn German: 0.66 LVOT VTI: 0.22 LVOT Pk Grad: 4.00 LVOT Mn Grad: 2.00 LVOT Diam: 2.00 LVOT Area: 3.14 Diastolic Function MV Pk E: 0.91 MV Pk A: 1.14 E/A: 0.80 E'Medial: 6.74 E/E' Med: 13.50 E' Laterial: 8.38 E/E' Lat: 10.90 Right Ventricle TAPSE (mm): 22.30 TVS' German: 12.30 Great Vessels Aorta Sinus of Valsalva: 2.60 2.0-3.5 cm Ao Asc: 2.40 2.1-3.4 cm Pulmonary Valve PV Pk German: 1.52 Peak PV Grad: 9.00 Updated in Other Vendor System with Status of Final Aftab Matson MD electronically signed on 12/30/2022 12:03:44 PM with status of Final
[2022-12-30 07:13] VITALS: BP 124/66; PULSE 87; RESP 18; TEMP 36.8; O2SAT 99
[2022-12-30 07:31] LABS: Glucose, Whole Blood 70 mg/dL (60-115)
[2022-12-30 08:51] LABS: Glucose, Whole Blood 70 mg/dL (60-115)
--- NOTE | 2022-12-30 09:00 | PC.NURSE ---
pt arrived to unit and oriented to staff and room, call tineo in reach and pt demonstrates able to use. Lungs dim with insp/exp wheeze w/pt reporting sob and lower back pain. APAP given with massage, pt declined hot or cold packs. Neb treatment with + effect. pt sleeping shortly after with no s/s distress. Admission assessment done from info while awake. Awaiting director of field sales for ETOH hx and home needs with director of field sales in am.
--- NOTE | 2022-12-30 09:13 | P.PNIM_ITS ---
Subjective Subjective Date of Service: 12/31/22 Review of Systems Follow-up anemia Denies nausea, vomiting, diarrhea No abdominal pain No blood per rectum Physical Exam Vital Signs: Vital Signs: Last Vital Signs Temp 98.2 F 12/30/22 07:13 Pulse 87 12/30/22 07:13 Resp 18 12/30/22 07:13 BP 124/66 12/30/22 07:13 Pulse Ox 99 12/30/22 07:13 O2 Del Method Nasal Cannula 12/30/22 07:13 O2 Flow Rate 1 12/30/22 07:13 BMI result Body Mass Index 39.2 Appearing in no acute distress lung sounds are clear to auscultation heart regular rate rhythm, clear S1, S2 positive bowel sounds, abdomen is soft, nontender neuro patient is alert x3, no focal deficits Objective Data Active Medications Acetaminophen (Acetaminophen 325 Mg Tablet) 650 mg PO Q6H PRN PRN Reason: Pain, Mild (Pain Scale 1-3) Last Admin: 12/29/22 21:08 Dose: 650 mg Documented By: LOAN Albuterol/Ipratropium (Albuterol/Iprat 2.5/0.5mg 3 Ml Ampul.Neb) 3 ml INHALE RQ4H WHILE AWAKE PRN PRN Reason: Wheezing Last Admin: 12/29/22 21:00 Dose: 3 ml Documented By: RUPESH Dextrose (Dextrose 50 % 25 Gm/50 Ml Syringe) 25 gm IVPUSH Q15M PRN; Protocol PRN Reason: per Hypoglycemia Standing Ord. Docusate Sodium (Docusate Sodium 100 Mg Capsule) 100 mg PO DAILY PRN PRN Reason: Constipation Glucose (Glucose Gel 15 Gm Gel..Gram.) 15 gm PO Q15M PRN; Protocol PRN Reason: per Hypoglycemia Standing Ord. Insulin Glargine (Insulin Glargine,Hum.Rec.Anlog 100 Unit/Ml 10 Ml Vial) 30 unit SUBCUT BEDTIME [facility] Last Admin: 12/29/22 21:09 Dose: 30 unit Documented By: LOAN Insulin Human Lispro (Insulin Lispro 100 Unit/Ml 3 Ml Vial) 0 unit SUBCUT QIDACHS [facility]; Protocol Last Admin: 12/29/22 21:39 Dose: Not Given Documented By: LOAN Non-Admin Reason: No Insulin Coverage Loratadine (Loratadine 10 Mg Tablet) 10 mg PO DAILY PRN PRN Reason: Allergic Symptoms Ondansetron HCl (Ondansetron Hcl 4 Mg/2 Ml Vial) 4 mg IVPUSH Q8H PRN PRN Reason: Nausea and Vomiting Pantoprazole Sodium (Pantoprazole Sodium 40 Mg/10 Ml Vial) 40 mg IVPUSH BID@0630,1630 [facility] Last Admin: 12/30/22 06:53 Dose: 40 mg Documented By: LOAN Quetiapine Fumarate (Quetiapine Fumarate 25 Mg Tablet) 25 mg PO Q12H PRN PRN Reason: anxiety Sodium Chloride (0.9 % Sodium Chloride Flush 3 Ml Syringe) 3 ml IVFLUSH QSHIFT [facility] Last Admin: 12/29/22 21:10 Dose: 3 ml Documented By: LOAN Trazodone HCl (Trazodone Hcl 100 Mg Tablet) 100 mg PO BEDTIME [facility] Last Admin: 12/29/22 21:08 Dose: 100 mg Documented By: LOAN Ursodiol (Ursodiol 300 Mg Capsule) 600 mg PO BID [facility] Last Admin: 12/29/22 21:08 Dose: 600 mg Documented By: LOAN Vitamin D (Cholecalciferol (Vitamin D3) 25 Mcg Tablet) 50 mcg PO DAILY [facility] Labs 12/30/22 06:00 12/30/22 06:00 Labs: Laboratory Results - last 24 hr 12/29/22 12/29/22 12/29/22 12:36 12:36 12:36 MCV 83.1 MCH 24.9 L MCHC 30.0 L RDW 17.0 H Plt Count 230 MPV 10.8 Immature Gran % (Auto) 0.2 Neut % (Auto) 58.9 Lymph % (Auto) 27.0 Crook % (Auto) 10.1 Eos % (Auto) 3.3 Baso % (Auto) 0.5 Lymph # (Auto) 1.7 Crook # (Auto) 0.6 Eos # (Auto) 0.2 Baso # (Auto) 0.0 Abs Immat Gran (auto) 0.01 Absolute Neuts (auto) 3.6 Absolute Nucleated RBC 0.000 Nucleated RBC % (auto) 0.0 Absolute Retic 0.056 Percent Retic 2.3 H Immature Retic Fraction 31.4 H Retic Hgb Equivalent 22.4 L Anion Gap 13 Estim Creat Clear Calc 25.3 Estimated GFR 28 POC Glucose Random Glucose 190 H Calcium 8.7 D Iron 35 TIBC 366 % Saturation 10 L Unsat Iron Binding 331 Ferritin 8 L Total Bilirubin 0.2 AST 22 ALT 10 Alkaline Phosphatase 194 H Lactate Dehydrogenase 248 H B-Natriuretic Peptide 181 H Total Protein 6.7 Albumin 3.2 L Lipase Stool Occult Blood Blood Type Antibody Screen Crossmatch 12/29/22 12/29/22 12/29/22 12:36 12:55 13:02 MCV MCH MCHC RDW Plt Count MPV Immature Gran % (Auto) Neut % (Auto) Lymph % (Auto) Crook % (Auto) Eos % (Auto) Baso % (Auto) Lymph # (Auto) Crook # (Auto) Eos # (Auto) Baso # (Auto) Abs Immat Gran (auto) Absolute Neuts (auto) Absolute Nucleated RBC Nucleated RBC % (auto) Absolute Retic Percent Retic Immature Retic Fraction Retic Hgb Equivalent Anion Gap Estim Creat Clear Calc Estimated GFR POC Glucose Random Glucose Calcium Iron TIBC % Saturation Unsat Iron Binding Ferritin Total Bilirubin AST ALT Alkaline Phosphatase Lactate Dehydrogenase B-Natriuretic Peptide Total Protein Albumin Lipase 31 Stool Occult Blood NEGATIVE Blood Type A Positive Antibody Screen NEGATIVE Crossmatch See Detail 12/29/22 12/29/22 12/30/22 19:34 22:18 06:00 MCV 83.9 83.6 MCH 26.2 L 26.1 L MCHC 31.2 31.3 RDW 16.6 H 16.6 H Plt Count 242 238 MPV 10.6 10.3 Immature Gran % (Auto) 0.4 0.2 Neut % (Auto) 59.6 65.0 Lymph % (Auto) 26.8 20.9 Crook % (Auto) 9.2 9.6 Eos % (Auto) 3.6 3.5 Baso % (Auto) 0.4 0.8 Lymph # (Auto) 1.9 1.4 Crook # (Auto) 0.7 0.6 Eos # (Auto) 0.3 0.2 Baso # (Auto) 0.0 0.1 Abs Immat Gran (auto) 0.03 0.01 Absolute Neuts (auto) 4.2 4.3 Absolute Nucleated RBC 0.000 0.000 Nucleated RBC % (auto) 0.0 0.0 Absolute Retic Percent Retic Immature Retic Fraction Retic Hgb Equivalent Anion Gap Estim Creat Clear Calc Estimated GFR POC Glucose 143 H Random Glucose Calcium Iron TIBC % Saturation Unsat Iron Binding Ferritin Total Bilirubin AST ALT Alkaline Phosphatase Lactate Dehydrogenase B-Natriuretic Peptide Total Protein Albumin Lipase Stool Occult Blood Blood Type Antibody Screen Crossmatch 12/30/22 12/30/22 12/30/22 06:00 07:27 08:48 MCV MCH MCHC RDW Plt Count MPV Immature Gran % (Auto) Neut % (Auto) Lymph % (Auto) Crook % (Auto) Eos % (Auto) Baso % (Auto) Lymph # (Auto) Crook # (Auto) Eos # (Auto) Baso # (Auto) Abs Immat Gran (auto) Absolute Neuts (auto) Absolute Nucleated RBC Nucleated RBC % (auto) Absolute Retic Percent Retic Immature Retic Fraction Retic Hgb Equivalent Anion Gap 12 Estim Creat Clear Calc 24.7 Estimated GFR 27 POC Glucose 70 70 Random Glucose 80 Calcium 8.9 Iron TIBC % Saturation Unsat Iron Binding Ferritin Total Bilirubin AST ALT Alkaline Phosphatase Lactate Dehydrogenase B-Natriuretic Peptide Total Protein Albumin Lipase Stool Occult Blood Blood Type Antibody Screen Crossmatch Assessment and Plan (1) CHF (congestive heart failure): Status: Acute (2) Anemia: Status: Acute Plan 72-year-old female with history of insulin-dependent type 2 diabetes, CKD stage 3, iron deficiency anemia, hyperlipidemia, hypertension, history of autoimmune hepatitis/cholangitis admitted for symptomatic anemia with unclear etiology. Acute on chronic symptomatic anemia- etiology unclear at this time Stool occult blood negative, denies melena/hematochezia, but does have history of GI bleed Iron 35/TIBC 366, Ferritin 8 s/p 1 unit packed RBC in ED IV PPI for now Plan for EGD today hold asa Acute kidney injury on CKD stage 3. resolving likely secondary to hypoperfusion Transfuse as above Avoid nephrotoxins Follow BMP, consider nephro if not improving Elevated BNP not in overt failure s/p 20 units iv lasix with transfusion Chest pain likely secondary to above EKG non ischemic. trop elevated 259.9, 183.8 needs cardio consult/clearance prior to EGD echo pending insulin-dependent type 2 diabetes sliding scale lantus hypertension hold antihypertensives in light of anemia HLD continue statin GERD IV PPI DVT prophylaxis-SCPs Attending Dr. Rose DNR/DNI continue hospitalization for treatment of acute symptomatic anemia requiring endoscopy and close monitoring of blood levels Time Spent With Patient Time: Total time managing care of this patient today ____ minutes. Quality Stroke Does the patient have a stroke diagnosis?: No VTE Prior VTE?: No VTE Risk Level:: Medical - moderate - high VTE Device Contraindication: Treatment Not Indicated VTE Drug Contraindication: N/A - Med Ordered
--- NOTE | 2022-12-30 09:45 | MHC.CM.PN ---
Addendum entered by Rehana Coker 12/30/22 16:14: CM SPOKE AGAIN TO DAUGHTER WHO BELIEVES THE NAME OF THE AGENCY IS [employer]. RETURN REFERRAL SENT, AWAITING RESPONSE. Addendum entered by Rehana Coker 12/30/22 09:55: + THRIVE ASSESSMENT- RESOURCE GUIDE PROVIDED. Original Note: IMM DELIVERED CM MET WITH PT VIA [employer], LIVES ALONE. USES [employer]ALK[employer] FOR MOBILITY. HAS MODIFIED BR. IS ACTIVE WITH A VNA BUT UNSURE OF THE AGENCY. DAUGHTER/HCP PROVIDED THIS CM WITH THE PHONE OF THE VISITING NURSE BUT NURSE HAS NOT HEARD OF THIS PT BEFORE. CM WILL CONTINUE TO TRY AND LOCATE THE AGENCY. + COVID VAX +HCP ON FILE. PCP CRISELDA MENARD DP: HOME WITH VNA SERVICES (AGENCY TBD) FAMILY WILL TRANSPORT. CM WILL CONTINUE TO FOLLOW FOR ANY CHANGE IN DC PLAN/NEEDS.
[2022-12-30] MEDS: Cholecalciferol (Vitamin D3) 25 MCG TABLET 50 MCG PO (10:56)
[2022-12-30] MEDS: UrsodioL 300 MG CAPSULE 600 MG PO ×2 (10:56→21:40)
[2022-12-30] MEDS: 0.9 % Sodium Chloride Flush 3 ML SYRINGE IVFLUSH ×3 (10:57→22:17)
[2022-12-30 11:21] VITALS: BP 136/77; PULSE 79; RESP 18; TEMP 36.4; O2SAT 99
--- NOTE | 2022-12-30 11:35 | P.CONCA_ITS ---
History of Present Illness History of Present Illness Date of Service: 12/30/22 Requesting physician: Claudia Walters Chief complaint: Symptomatic Anemia Narrative: 72-year-old female who we have been asked to comment about elevated troponin levels. She is presenting from home after a blood workup done as outpatient showed anemia. She does not recall having any bloody stool or hematuria. No black stool either. She has been on aspirin as outpatient. She has known history of coronary artery disease with previous LAD PCI in 2019. She has been experiencing some shortness of breath and orthopnea. Clinically she appears to be in heart failure. She has mildly elevated high sensitivity troponin levels. She also experienced some atypical chest pains but as mentioned was also significantly anemic. [facility] Past Medical History Medical History Anemia CKD (chronic kidney disease) Constipated CVA (cerebral vascular accident) Depression Diabetes mellitus with hyperglycemia Essential hypertension Fecal occult blood test positive Hyperlipidemia LDL goal <100 Hypertriglyceridemia Normocytic anemia Obesity (BMI 30-39.9) Pancreatitis Type 2 diabetes mellitus with chronic kidney disease Type 2 diabetes mellitus with hyperglycemia Vitamin D deficiency Family History Family History Father No problems noted. Mother Diabetes mellitus CVD (cardiovascular disease) Sister Cancer Son Diabetes mellitus Surgical History Surgical History History of appendectomy History of esophagogastroduodenoscopy (EGD) Hx of cholecystectomy Hx of colonoscopy Hx of heart bypass surgery Social History Social History Household Members: Other Household Members Other:: daughter Housing: Apartment Housing Other:: [employer] services Do you presently have visiting nurse or other home services: Yes ([employer]) Alcohol intake: never Patient Tobacco Use Status: Never used Tobacco Advance Directives Date on File: 02/06/21 service: No Current occupational status: disabled Meds Allergies Allergy/AdvReac Type Severity Reaction Status Date / Time No Known Allergies Allergy Verified 12/29/22 11:37 [No Known Allergies*] Active Medications: Current Medications Acetaminophen (Acetaminophen 325 Mg Tablet) 650 mg PO Q6H PRN PRN Reason: Pain, Mild (Pain Scale 1-3) Last Admin: 12/29/22 21:08 Dose: 650 mg Albuterol/Ipratropium (Albuterol/Iprat 2.5/0.5mg 3 Ml Ampul.Neb) 3 ml INHALE RQ4H WHILE AWAKE PRN PRN Reason: Wheezing Last Admin: 12/29/22 21:00 Dose: 3 ml Dextrose (Dextrose 50 % 25 Gm/50 Ml Syringe) 25 gm IVPUSH Q15M PRN; Protocol PRN Reason: per Hypoglycemia Standing Ord. Docusate Sodium (Docusate Sodium 100 Mg Capsule) 100 mg PO DAILY PRN PRN Reason: Constipation Glucose (Glucose Gel 15 Gm Gel..Gram.) 15 gm PO Q15M PRN; Protocol PRN Reason: per Hypoglycemia Standing Ord. Insulin Glargine (Insulin Glargine,Hum.Rec.Anlog 100 Unit/Ml 10 Ml Vial) 30 unit SUBCUT BEDTIME [facility] Last Admin: 12/29/22 21:09 Dose: 30 unit Insulin Human Lispro (Insulin Lispro 100 Unit/Ml 3 Ml Vial) 0 unit SUBCUT QIDACHS [facility]; Protocol Last Admin: 12/30/22 10:54 Dose: Not Given Loratadine (Loratadine 10 Mg Tablet) 10 mg PO DAILY PRN PRN Reason: Allergic Symptoms Ondansetron HCl (Ondansetron Hcl 4 Mg/2 Ml Vial) 4 mg IVPUSH Q8H PRN PRN Reason: Nausea and Vomiting Pantoprazole Sodium (Pantoprazole Sodium 40 Mg/10 Ml Vial) 40 mg IVPUSH BID@0630,1630 [facility] Last Admin: 12/30/22 06:53 Dose: 40 mg Quetiapine Fumarate (Quetiapine Fumarate 25 Mg Tablet) 25 mg PO Q12H PRN PRN Reason: anxiety Sodium Chloride (0.9 % Sodium Chloride Flush 3 Ml Syringe) 3 ml IVFLUSH QSHIFT [facility] Last Admin: 12/30/22 10:57 Dose: 3 ml Trazodone HCl (Trazodone Hcl 100 Mg Tablet) 100 mg PO BEDTIME [facility] Last Admin: 12/29/22 21:08 Dose: 100 mg Ursodiol (Ursodiol 300 Mg Capsule) 600 mg PO BID [facility] Last Admin: 12/30/22 10:56 Dose: 600 mg Vitamin D (Cholecalciferol (Vitamin D3) 25 Mcg Tablet) 50 mcg PO DAILY [facility] Last Admin: 12/30/22 10:56 Dose: 50 mcg Home Medications Medication Instructions Recorded Confirmed Last Taken Type aspirin 81 mg tablet,delayed 81 mg PO DAILY 02/27/20 12/29/22 04/05/21 History release (Adult Aspirin Regimen) cholecalciferol (vitamin D3) 50 2,000 unit PO DAILY 02/27/20 12/29/22 04/05/21 History mcg (2,000 unit) capsule metoprolol tartrate 25 mg tablet 12.5 mg PO DAILY 02/27/20 12/29/22 04/05/21 History cetirizine 10 mg capsule (All Day 10 mg PO DAILY PRN Allergic 11/16/20 12/29/22 04/05/21 History Allergy (cetirizine)) Symptoms enalapril maleate 5 mg tablet 1 tab PO DAILY 02/05/21 12/29/22 04/05/21 History amlodipine 10 mg tablet 10 mg PO QAM 12/29/22 12/29/22 Unknown History insulin glargine U-300 conc 300 40 unit subcut BEDTIME 12/29/22 12/29/22 Unknown History unit/mL (3 mL) subcutaneous pen (Toujeo Max U-300 SoloStar) insulin lispro 100 unit/mL 12 unit subcut TID 12/29/22 12/29/22 Unknown History subcutaneous pen (Humalog KwikPen (U-100) Insulin) linaclotide 145 mcg capsule 145 mcg PO DAILY PRN GI UPSET 12/29/22 12/29/22 Unknown History (Linzess) pantoprazole 40 mg tablet,delayed 40 mg PO DAILY 12/29/22 12/29/22 Unknown History release quetiapine 25 mg tablet 25 mg PO Q12H PRN anxiety 12/29/22 12/29/22 Unknown History trazodone 100 mg tablet 100 mg PO BEDTIME 12/29/22 12/29/22 Unknown History Physical Exam Vital Signs: Vital Signs: Last Vital Signs Temp 97.5 F 12/30/22 11:21 Pulse 79 12/30/22 11:21 Resp 18 12/30/22 11:21 BP 136/77 12/30/22 11:21 Pulse Ox 99 12/30/22 11:21 O2 Del Method Room Air 12/30/22 11:21 O2 Flow Rate 1 08/29/23 07:13 BMI result Body Mass Index 39.2 GENERAL APPEARANCE: in no acute distress, pleasant. NECK: no carotid bruit, + jugular venous distention. SKIN: no suspicious lesions, warm and dry. HEART: no murmurs, regular rate and rhythm. LUNGS: Diminished at bases. ABDOMEN: soft, nontender. EXTREMITIES: no edema. PERIPHERAL PULSES: equal. NEUROLOGIC: No gross deficits, AAO X 3 Objective Labs and Meds 12/30/22 06:00 12/30/22 06:00 Lab results: Laboratory Results - last 24 hr 12/29/22 12/29/22 12/29/22 12:36 12:36 12:36 WBC 6.1 RBC 2.49 L D Hgb 6.2 L* D Hct 20.7 L* D MCV 83.1 MCH 24.9 L MCHC 30.0 L RDW 17.0 H Plt Count 230 MPV 10.8 Immature Gran % (Auto) 0.2 Neut % (Auto) 58.9 Lymph % (Auto) 27.0 Franklin % (Auto) 10.1 Eos % (Auto) 3.3 Baso % (Auto) 0.5 Lymph # (Auto) 1.7 Franklin # (Auto) 0.6 Eos # (Auto) 0.2 Baso # (Auto) 0.0 Abs Immat Gran (auto) 0.01 Absolute Neuts (auto) 3.6 Absolute Nucleated RBC 0.000 Nucleated RBC % (auto) 0.0 Absolute Retic 0.056 Percent Retic 2.3 H Immature Retic Fraction 31.4 H Retic Hgb Equivalent 22.4 L Sodium 139 Potassium 5.8 H Chloride 114 H Carbon Dioxide 18 L Anion Gap 13 BUN 64 H Creatinine 1.76 H Estim Creat Clear Calc 25.3 Estimated GFR 28 POC Glucose Random Glucose 190 H Calcium 8.7 D Iron 35 TIBC 366 % Saturation 10 L Unsat Iron Binding 331 Ferritin 8 L Total Bilirubin 0.2 AST 22 ALT 10 Alkaline Phosphatase 194 H Lactate Dehydrogenase 248 H Troponin I High Sens B-Natriuretic Peptide 181 H Total Protein 6.7 Albumin 3.2 L Lipase Stool Occult Blood Blood Type Antibody Screen Crossmatch 12/29/22 12/29/22 12/29/22 12:36 12:55 13:02 WBC RBC Hgb Hct MCV MCH MCHC RDW Plt Count MPV Immature Gran % (Auto) Neut % (Auto) Lymph % (Auto) Franklin % (Auto) Eos % (Auto) Baso % (Auto) Lymph # (Auto) Franklin # (Auto) Eos # (Auto) Baso # (Auto) Abs Immat Gran (auto) Absolute Neuts (auto) Absolute Nucleated RBC Nucleated RBC % (auto) Absolute Retic Percent Retic Immature Retic Fraction Retic Hgb Equivalent Sodium Potassium Chloride Carbon Dioxide Anion Gap BUN Creatinine Estim Creat Clear Calc Estimated GFR POC Glucose Random Glucose Calcium Iron TIBC % Saturation Unsat Iron Binding Ferritin Total Bilirubin AST ALT Alkaline Phosphatase Lactate Dehydrogenase Troponin I High Sens B-Natriuretic Peptide Total Protein Albumin Lipase 31 Stool Occult Blood NEGATIVE Blood Type A Positive Antibody Screen NEGATIVE Crossmatch See Detail 12/29/22 12/29/22 12/29/22 17:51 19:34 22:18 WBC 7.0 RBC 2.98 L Hgb 7.8 L D Hct 25.0 L D MCV 83.9 MCH 26.2 L MCHC 31.2 RDW 16.6 H Plt Count 242 MPV 10.6 Immature Gran % (Auto) 0.4 Neut % (Auto) 59.6 Lymph % (Auto) 26.8 Franklin % (Auto) 9.2 Eos % (Auto) 3.6 Baso % (Auto) 0.4 Lymph # (Auto) 1.9 Franklin # (Auto) 0.7 Eos # (Auto) 0.3 Baso # (Auto) 0.0 Abs Immat Gran (auto) 0.03 Absolute Neuts (auto) 4.2 Absolute Nucleated RBC 0.000 Nucleated RBC % (auto) 0.0 Absolute Retic Percent Retic Immature Retic Fraction Retic Hgb Equivalent Sodium Potassium Chloride Carbon Dioxide Anion Gap BUN Creatinine Estim Creat Clear Calc Estimated GFR POC Glucose 143 H Random Glucose Calcium Iron TIBC % Saturation Unsat Iron Binding Ferritin Total Bilirubin AST ALT Alkaline Phosphatase Lactate Dehydrogenase Troponin I High Sens 295.9 H* B-Natriuretic Peptide Total Protein Albumin Lipase Stool Occult Blood Blood Type Antibody Screen Crossmatch 12/30/22 12/30/22 12/30/22 06:00 06:00 06:00 WBC 6.7 RBC 2.87 L Hgb 7.5 L Hct 24.0 L MCV 83.6 MCH 26.1 L MCHC 31.3 RDW 16.6 H Plt Count 238 MPV 10.3 Immature Gran % (Auto) 0.2 Neut % (Auto) 65.0 Lymph % (Auto) 20.9 Franklin % (Auto) 9.6 Eos % (Auto) 3.5 Baso % (Auto) 0.8 Lymph # (Auto) 1.4 Franklin # (Auto) 0.6 Eos # (Auto) 0.2 Baso # (Auto) 0.1 Abs Immat Gran (auto) 0.01 Absolute Neuts (auto) 4.3 Absolute Nucleated RBC 0.000 Nucleated RBC % (auto) 0.0 Absolute Retic Percent Retic Immature Retic Fraction Retic Hgb Equivalent Sodium 143 Potassium 4.4 D Chloride 114 H Carbon Dioxide 21 L Anion Gap 12 BUN 60 H Creatinine 1.82 H Estim Creat Clear Calc 24.7 Estimated GFR 27 POC Glucose Random Glucose 80 Calcium 8.9 Iron TIBC % Saturation Unsat Iron Binding Ferritin Total Bilirubin AST ALT Alkaline Phosphatase Lactate Dehydrogenase Troponin I High Sens 183.8 H* B-Natriuretic Peptide Total Protein Albumin Lipase Stool Occult Blood Blood Type Antibody Screen Crossmatch 12/30/22 12/30/22 07:27 08:48 WBC RBC Hgb Hct MCV MCH MCHC RDW Plt Count MPV Immature Gran % (Auto) Neut % (Auto) Lymph % (Auto) Franklin % (Auto) Eos % (Auto) Baso % (Auto) Lymph # (Auto) Franklin # (Auto) Eos # (Auto) Baso # (Auto) Abs Immat Gran (auto) Absolute Neuts (auto) Absolute Nucleated RBC Nucleated RBC % (auto) Absolute Retic Percent Retic Immature Retic Fraction Retic Hgb Equivalent Sodium Potassium Chloride Carbon Dioxide Anion Gap BUN Creatinine Estim Creat Clear Calc Estimated GFR POC Glucose 70 70 Random Glucose Calcium Iron TIBC % Saturation Unsat Iron Binding Ferritin Total Bilirubin AST ALT Alkaline Phosphatase Lactate Dehydrogenase Troponin I High Sens B-Natriuretic Peptide Total Protein Albumin Lipase Stool Occult Blood Blood Type Antibody Screen Crossmatch Imaging Radiologist's impression: Impressions Chest X-Ray 12/29/22 15:04 IMPRESSION: No acute cardiopulmonary process. Assessment and Plan (1) Symptomatic anemia: Status: Acute (2) Elevated troponin: Status: Acute (3) CHF (congestive heart failure): Status: Acute Plan Pleasant 72-year-old female who is here for symptomatic anemia. Likely cause is GI blood loss. Aspirin should be held. Clinically also appears to be in mild congestive heart failure. She has been experiencing some orthopnea and has elevated JVD. I think she should be on IV diuretics with close monitoring of kidney function and electrolytes. High sensitivity troponin levels are mildly elevated which could be due to kidney disease as well as anemia. I think this is type 2 elevation and does not need further testing right now. Her iron saturations are 10%. Ferritin is 8. She clearly has iron deficiency. Do not recommend any heparin or therapeutic Lovenox. We will follow along with you. Thank you for allowing me to participate in the care of your patient. Please feel free to contact me if you have any questions. Time Spent With Patient Time: Total time managing care of this patient today ____ minutes. Procedures Date of Service Date of Service: 12/30/22
[2022-12-30 11:38] LABS: Glucose, Whole Blood 66 mg/dL (60-115)
[2022-12-30 12:10] LABS: Glucose, Whole Blood 86 mg/dL (60-115)
--- NOTE | 2022-12-30 14:08 | P.CDIM_ITS ---
PROVIDER RESPONSE TEXT: To clarify, the appropriate diagnosis supported by the clinical indicators: Hyperkalemia QUERY TEXT: PHYSICIAN'S DOCUMENTATION REQUEST Date of Query: 12/30/2022 12:45 PM EDT Patient Name: Hannah Grey Admit Date: 12/29/2022 Dear Claudia Walters, A review of the medical record indicates additional documentation may be needed. Please review below and update the documentation accordingly. Clinical Indicators: Potassium on 12/29/22: 5.8 Treated with Kayexalate 30 gm po once on 12/29/22 Based on the above, could you clarify the appropriate diagnosis, if significant, that supports the ab ove abnormalities and additional evaluation, monitoring, and/or treatment rendered: Hyperkalemia Labs indicate a diagnosis of (please specify) Other (explain)Clinically unable to determine (explain)Thank you, Olena Lake RN Use of terms such as suspected, likely, concern for, or probable (associated with a specific diagnosi s that is being evaluated, monitored, or treated as if it exists) are acceptable and can be coded in the inpatient se tting, when documented at the time of discharge. Please use your independent medical judgment in providing your response. THIS QUERY IS PART OF THE PERMANENT MEDICAL RECORD
[2022-12-30] MEDS: Acetaminophen 325 MG TABLET 650 MG PO ×2 (14:31→21:45)
[2022-12-30 15:14] VITALS: BP 124/64; PULSE 85; RESP 14; TEMP 36; O2SAT 94
[2022-12-30 15:38] LABS: Glucose, Whole Blood 108 mg/dL (60-115)
[2022-12-30 19:48] VITALS: BP 150/60; PULSE 88; RESP 15; TEMP 36.8; O2SAT 99
[2022-12-30 19:54] LABS: Glucose, Whole Blood 115 mg/dL (60-115)
[2022-12-30] MEDS: traZODone HCL 100 MG TABLET PO (21:41)
[2022-12-30] MEDS: Insulin Glargine,Hum.rec.anlog 100 UNIT/ML 10 ML VIAL 30 UNIT SUBCUT (21:42)
[2022-12-30] MEDS: ondansetron HCL 4 MG/2 ML VIAL IVPUSH (22:00)
[2022-12-31] VITALS (10 sets, daily range): BP systolic 137–175; BP diastolic 63–85; PULSE 72–92; RESP 15–20; TEMP 36.1–36.8; O2SAT 93–100
[2022-12-31] MEDS: Pantoprazole Sodium 40 MG/10 ML VIAL IVPUSH ×2 (06:26→17:46)
[2022-12-31 07:33] LABS: Glucose, Whole Blood 42 mg/dL (60-115)
[2022-12-31] MEDS: Dextrose 50 % 25 GM/50 ML SYRINGE IVPUSH (07:38)
[2022-12-31] MEDS: 0.9 % Sodium Chloride Flush 3 ML SYRINGE IVFLUSH ×2 (07:39→17:46)
[2022-12-31] MEDS: Acetaminophen 325 MG TABLET 650 MG PO (07:46)
[2022-12-31] MEDS: Cholecalciferol (Vitamin D3) 25 MCG TABLET 50 MCG PO (07:46)
[2022-12-31] MEDS: UrsodioL 300 MG CAPSULE 600 MG PO ×2 (07:47→21:58)
[2022-12-31 07:53] LABS: Glucose, Whole Blood 170 mg/dL (60-115)
[2022-12-31 08:01] LABS: MANUAL DIFF FLAG NO
[2022-12-31 08:04] LABS: Basophils Percent Auto 0.4 % (0-2); Eosinophils Absolute Auto 0.1 X10*3/uL (0.0-0.4); Eosinophils Percent Auto 1.1 % (0-4); Hematocrit 27.5 % (37.0-47.0); Hemoglobin 8.5 g/dl (12.0-16.0); Imm Gran Abs Auto 0.02 X10*3/uL (0.00-0.03); Imm Gran Pct Auto 0.4 % (0.0-0.4); Lymphocytes Absolute Auto 0.9 X10*3/uL (1.2-4.9); Lymphocytes Percent Auto 18.8 % (20-40); Mean Corpuscular HGB Conc 30.9 g/dl (31.0-35.0); Mean Corpuscular Hemoglobin 25.8 pg (27.0-33.0); Mean Corpuscular Volume 83.6 fL (80.0-98.0); Mean Platelet Volume 10.3 fL (9.4-12.3); Monocytes Absolute Auto 0.2 X10*3/uL (0.1-1.2); Monocytes Percent Auto 4.1 % (2-11); Neutrophils Absolute Auto 3.5 x10*3/uL (2.0-8.3); Neutrophils Percent Auto 75.2 % (45-73); Platelet Count 260 X10*3/uL (160-400); Red Blood Count 3.29 X10*6/uL (4.20-5.50); Red Cell Distribution Width 17.2 % (11.0-16.0); White Blood Count 4.6 X10*3/uL (4.8-10.8)
[2022-12-31 08:16] LABS: Anion Gap 12 (12-20); Blood Urea Nitrogen 42 mg/dL (9-16); Calcium 9.6 mg/dL (8.4-10.2); Carbon Dioxide 22 mmol/L (22-29); Chloride 113 mmol/L (96-108); Creatinine Clr Calc Pharmacy 31.2; Estimated Glomerular Filt Rate 36; Glucose Random 161 mg/dL (60-115); Potassium 4.4 mmol/L (3.3-5.1); Sodium 143 mmol/L (135-145)
--- NOTE | 2022-12-31 09:52 | MHC.CM.PN ---
EMR REVIEWED, PER HOSPITALIST PLAN FOR EGD TODAY, ANTIC PT WILL BE CLEARED FOR D/C TOMORROW 01/01 W/[facility]UMP OF [employer], CM WILL CONT TO FOLLOW D/C NEEDS.
[2022-12-31 10:17] LABS: Glucose, Whole Blood 90 mg/dL (60-115)
[2022-12-31 11:37] LABS: Glucose, Whole Blood 73 mg/dL (60-115)
[2022-12-31] MEDS: Furosemide 40 MG/4 ML VIAL IVPUSH (11:43)
--- NOTE | 2022-12-31 12:04 | P.PNCA_ITS ---
Subjective Subjective Date of Service: 12/31/22 Interval history: Seen examined at bedside. She is going for endoscopy today. Complaining of some shortness of breath and fatigue. Physical Exam Vital Signs: Last Vital Signs Temp 97.3 F 12/31/22 11:52 Pulse 83 12/31/22 11:52 Resp 18 12/31/22 11:52 BP 138/79 12/31/22 11:52 Pulse Ox 95 12/31/22 11:52 O2 Del Method Room Air 12/31/22 11:52 O2 Flow Rate 1 12/30/22 07:13 BMI result Body Mass Index 39.2 GENERAL APPEARANCE: in no acute distress, pleasant. NECK: no carotid bruit, + jugular venous distention. SKIN: no suspicious lesions, warm and dry. HEART: no murmurs, regular rate and rhythm. LUNGS: Diminished at bases. ABDOMEN: soft, nontender. EXTREMITIES: no edema. PERIPHERAL PULSES: equal. NEUROLOGIC: No gross deficits, AAO X 3 Objective Labs and Meds 12/31/22 07:49 12/31/22 07:49 Lab results: Laboratory Results - last 24 hr 12/30/22 12/30/22 12/30/22 12:04 15:34 19:51 WBC RBC Hgb Hct MCV MCH MCHC RDW Plt Count MPV Immature Gran % (Auto) Neut % (Auto) Lymph % (Auto) [place]field % (Auto) Eos % (Auto) Baso % (Auto) Lymph # (Auto) [place] # (Auto) Eos # (Auto) Baso # (Auto) Abs Immat Gran (auto) Absolute Neuts (auto) Absolute Nucleated RBC Nucleated RBC % (auto) Sodium Potassium Chloride Carbon Dioxide Anion Gap BUN Creatinine Estim Creat Clear Calc Estimated GFR POC Glucose 86 108 115 Random Glucose Calcium 12/31/22 12/31/22 12/31/22 07:30 07:49 07:49 WBC 4.6 L RBC 3.29 L Hgb 8.5 L Hct 27.5 L MCV 83.6 MCH 25.8 L MCHC 30.9 L RDW 17.2 H Plt Count 260 MPV 10.3 Immature Gran % (Auto) 0.4 Neut % (Auto) 75.2 H Lymph % (Auto) 18.8 L [place] % (Auto) 4.1 Eos % (Auto) 1.1 Baso % (Auto) 0.4 Lymph # (Auto) 0.9 L [place] # (Auto) 0.2 Eos # (Auto) 0.1 Baso # (Auto) 0.0 Abs Immat Gran (auto) 0.02 Absolute Neuts (auto) 3.5 Absolute Nucleated RBC 0.000 Nucleated RBC % (auto) 0.0 Sodium 143 Potassium 4.4 Chloride 113 H Carbon Dioxide 22 Anion Gap 12 BUN 42 H Creatinine 1.44 H Estim Creat Clear Calc 31.2 Estimated GFR 36 POC Glucose 42 L* Random Glucose 161 H Calcium 9.6 D 12/31/22 12/31/22 12/31/22 07:50 10:14 11:25 WBC RBC Hgb Hct MCV MCH MCHC RDW Plt Count MPV Immature Gran % (Auto) Neut % (Auto) Lymph % (Auto) [place]field % (Auto) Eos % (Auto) Baso % (Auto) Lymph # (Auto) [place] # (Auto) Eos # (Auto) Baso # (Auto) Abs Immat Gran (auto) Absolute Neuts (auto) Absolute Nucleated RBC Nucleated RBC % (auto) Sodium Potassium Chloride Carbon Dioxide Anion Gap BUN Creatinine Estim Creat Clear Calc Estimated GFR POC Glucose 170 H 90 73 Random Glucose Calcium Progress Note: A&P Assessment and plan (1) CHF (congestive heart failure): Status: Acute (2) Elevated troponin: Status: Acute (3) Symptomatic anemia: Status: Acute Plan [age] year female presenting with symptomatic anemia and type 2 troponin elevation. Clinically she appears to be mildly volume overloaded. Will give her IV Lasix today. She will need endoscopy and can proceed with that is intermediate risk for perioperative cardiovascular complications. Most of her symptoms are explained by anemia. Thank you for allowing me to participate in the care of your patient. Please feel free to contact me if you have any questions. Time Spent With Patient Time: Total time managing care of this patient today ____ minutes. Progress Note: Quality Stroke Does the patient have a stroke diagnosis?: No Procedures Date of Service Date of Service: 12/31/22
[2022-12-31] MEDS: Dextrose 5 % and 0.9 % NaCl 1,000 ML 100 ML IVCONT (12:19)
--- NOTE | 2022-12-31 12:36 | P.CONAN_ITS ---
HPI - Anesthesia Eval Consult details Narrative: 72 yo female patient for EGD PMF Active Problems Active Problems: All Active Problems (Updated 12/31/22 @ 12:30 by Blossom Noonan MD) CHF (congestive heart failure) (Acute) Elevated troponin (Acute) Renal failure (ARF), acute on chronic (Acute) Acute hyperkalemia (Acute)- Resolved Symptomatic anemia (Acute) On admission H/H 6.2/20.7 S/p 1u PRBC H/H 8.5/27.5 Lumbago (Acute) Elevated serum creatinine (Acute) Autoimmune cholangitis (Acute) Autoimmune hepatitis (Acute) Low blood pressure (Acute) Pancreatic cyst (Acute) GERD (gastroesophageal reflux disease) (Acute) LUQ abdominal pain (Acute) Chronic constipation (Acute) Elevated LFTs (Acute) Iron deficiency anemia (Acute) Type 2 diabetes mellitus with hyperglycemia (Acute) Type 2 diabetes mellitus with chronic kidney disease (Acute) Essential hypertension (Acute) Hyperlipidemia LDL goal <100 (Acute) Obesity (BMI 30-39.9) (Acute) Diabetes mellitus with hyperglycemia (Acute) Hypoglycaemia Received D5W POC 79 CAD. Has stent in place from several years ago Past Medical History Medical History Anemia CKD (chronic kidney disease) Constipated CVA (cerebral vascular accident) Depression Diabetes mellitus with hyperglycemia Essential hypertension Fecal occult blood test positive Hyperlipidemia LDL goal <100 Hypertriglyceridemia Normocytic anemia Obesity (BMI 30-39.9) Pancreatitis Type 2 diabetes mellitus with chronic kidney disease Type 2 diabetes mellitus with hyperglycemia Vitamin D deficiency Family History Family History Father No problems noted. Mother Diabetes mellitus CVD (cardiovascular disease) Sister Cancer Son Diabetes mellitus Family history of problems with anesthesia: No Surgical History Surgical History History of appendectomy History of esophagogastroduodenoscopy (EGD) Hx of cholecystectomy Hx of colonoscopy Hx of heart bypass surgery History of Problems with Anesthesia: No Social History Social History Household Members: Other Household Members Other:: daughter Housing: Apartment Housing Other:: [employer] services Do you presently have visiting nurse or other home services: Yes (ENVIR[employer]OTECTION [employer]) Alcohol intake: never Patient Tobacco Use Status: Never used Tobacco Advance Directives Date on File: 02/06/21 service: No Current occupational status: disabled Meds Allergies Allergy/AdvReac Type Severity Reaction Status Date / Time No Known Allergies Allergy Verified 12/31/22 12:34 [No Known Allergies*] Active Medications: Current Medications Acetaminophen (Acetaminophen 325 Mg Tablet) 650 mg PO Q6H PRN PRN Reason: Pain, Mild (Pain Scale 1-3) Last Admin: 12/31/22 07:46 Dose: 650 mg Albuterol/Ipratropium (Albuterol/Iprat 2.5/0.5mg 3 Ml Ampul.Neb) 3 ml INHALE RQ4H WHILE AWAKE PRN PRN Reason: Wheezing Last Admin: 12/29/22 21:00 Dose: 3 ml Dextrose (Dextrose 50 % 25 Gm/50 Ml Syringe) 25 gm IVPUSH Q15M PRN; Protocol PRN Reason: per Hypoglycemia Standing Ord. Last Admin: 12/31/22 07:38 Dose: 25 gm Docusate Sodium (Docusate Sodium 100 Mg Capsule) 100 mg PO DAILY PRN PRN Reason: Constipation Glucose (Glucose Gel 15 Gm Gel..Gram.) 15 gm PO Q15M PRN; Protocol PRN Reason: per Hypoglycemia Standing Ord. Dextrose/Sodium Chloride (D5ns) 1,000 mls @ 100 mls/hr IVCONT .Q10H YOVANA Last Admin: 12/31/22 12:19 Dose: 100 mls/hr Insulin Glargine (Insulin Glargine,Hum.Rec.Anlog 100 Unit/Ml 10 Ml Vial) 30 unit SUBCUT BEDTIME YOVANA Last Admin: 12/30/22 21:42 Dose: 30 unit Insulin Human Lispro (Insulin Lispro 100 Unit/Ml 3 Ml Vial) 0 unit SUBCUT QIDACHS YOVANA; Protocol Last Admin: 12/31/22 11:45 Dose: Not Given Loratadine (Loratadine 10 Mg Tablet) 10 mg PO DAILY PRN PRN Reason: Allergic Symptoms Ondansetron HCl (Ondansetron Hcl 4 Mg/2 Ml Vial) 4 mg IVPUSH Q8H PRN PRN Reason: Nausea and Vomiting Last Admin: 12/30/22 22:00 Dose: 4 mg Pantoprazole Sodium (Pantoprazole Sodium 40 Mg/10 Ml Vial) 40 mg IVPUSH BID@0630,1630 [facility] Last Admin: 12/31/22 06:26 Dose: 40 mg Quetiapine Fumarate (Quetiapine Fumarate 25 Mg Tablet) 25 mg PO Q12H PRN PRN Reason: anxiety Sodium Chloride (0.9 % Sodium Chloride Flush 3 Ml Syringe) 3 ml IVFLUSH QSHIFT [facility] Last Admin: 12/31/22 07:39 Dose: 3 ml Trazodone HCl (Trazodone Hcl 100 Mg Tablet) 100 mg PO BEDTIME [facility] Last Admin: 12/30/22 21:41 Dose: 100 mg Ursodiol (Ursodiol 300 Mg Capsule) 600 mg PO BID [facility] Last Admin: 12/31/22 07:47 Dose: 600 mg Vitamin D (Cholecalciferol (Vitamin D3) 25 Mcg Tablet) 50 mcg PO DAILY [facility] Last Admin: 12/31/22 07:46 Dose: 50 mcg Home Medications Medication Instructions Recorded Confirmed Last Taken Type aspirin 81 mg tablet,delayed 81 mg PO DAILY 02/27/20 12/29/22 04/05/21 History release (Adult Aspirin Regimen) cholecalciferol (vitamin D3) 50 2,000 unit PO DAILY 02/27/20 12/29/22 04/05/21 History mcg (2,000 unit) capsule metoprolol tartrate 25 mg tablet 12.5 mg PO DAILY 02/27/20 12/29/22 04/05/21 History cetirizine 10 mg capsule (All Day 10 mg PO DAILY PRN Allergic 11/16/20 12/29/22 04/05/21 History Allergy (cetirizine)) Symptoms enalapril maleate 5 mg tablet 1 tab PO DAILY 02/05/21 12/29/22 04/05/21 History amlodipine 10 mg tablet 10 mg PO QAM 12/29/22 12/29/22 Unknown History insulin glargine U-300 conc 300 40 unit subcut BEDTIME 12/29/22 12/29/22 Unknown History unit/mL (3 mL) subcutaneous pen (Toujeo Max U-300 SoloStar) insulin lispro 100 unit/mL 12 unit subcut TID 12/29/22 12/29/22 Unknown History subcutaneous pen (Humalog KwikPen (U-100) Insulin) linaclotide 145 mcg capsule 145 mcg PO DAILY PRN GI UPSET 12/29/22 12/29/22 Unknown History (Linzess) pantoprazole 40 mg tablet,delayed 40 mg PO DAILY 12/29/22 12/29/22 Unknown History release quetiapine 25 mg tablet 25 mg PO Q12H PRN anxiety 12/29/22 12/29/22 Unknown History trazodone 100 mg tablet 100 mg PO BEDTIME 12/29/22 12/29/22 Unknown History Exam Exam Date and Time: December 31, 2022 1236 Height,Weight and Vital Signs: Height 4 ft 9 in Weight 82.1 kg Last Vital Signs Temp 97.3 F 12/31/22 11:52 Pulse 83 12/31/22 11:52 Resp 18 12/31/22 11:52 BP 138/79 12/31/22 11:52 Pulse Ox 95 12/31/22 11:52 O2 Del Method Room Air 12/31/22 11:52 O2 Flow Rate 1 12/30/22 07:13 Vital Signs Temp Pulse Resp BP Pulse Ox O2 Del Method 12/31/22 12:42 98.1 F 86 16 151/71 H 100 Room Air 12/31/22 11:52 97.3 F 83 18 138/79 95 Room Air 12/31/22 07:39 97.2 F 74 20 137/63 94 Room Air 12/31/22 04:00 96.9 F 72 15 168/75 H 96 Room Air 12/31/22 00:00 98.0 F 83 16 175/79 H 96 Room Air 12/30/22 19:48 98.2 F 88 15 150/60 H 99 Room Air 12/30/22 15:14 96.8 F 85 14 124/64 94 Room Air Pertinent Lab Results Pertinent Lab Results: Laboratory Tests 12/29/22 12/29/22 12/29/22 12:36 12:36 12:36 WBC 6.1 RBC 2.49 L D Hgb 6.2 L* D Hct 20.7 L* D MCV 83.1 MCH 24.9 L MCHC 30.0 L RDW 17.0 H Plt Count 230 MPV 10.8 Immature Gran % (Auto) 0.2 Neut % (Auto) 58.9 Lymph % (Auto) 27.0 [place] % (Auto) 10.1 Eos % (Auto) 3.3 Baso % (Auto) 0.5 Lymph # (Auto) 1.7 [place] # (Auto) 0.6 Eos # (Auto) 0.2 Baso # (Auto) 0.0 Abs Immat Gran (auto) 0.01 Absolute Neuts (auto) 3.6 Absolute Nucleated RBC 0.000 Nucleated RBC % (auto) 0.0 Absolute Retic 0.056 Percent Retic 2.3 H Immature Retic Fraction 31.4 H Retic Hgb Equivalent 22.4 L Sodium 139 Potassium 5.8 H Chloride 114 H Carbon Dioxide 18 L Anion Gap 13 BUN 64 H Creatinine 1.76 H Estim Creat Clear Calc 25.3 Estimated GFR 28 POC Glucose Random Glucose 190 H Calcium 8.7 D Iron 35 TIBC 366 % Saturation 10 L Unsat Iron Binding 331 Ferritin 8 L Total Bilirubin 0.2 AST 22 ALT 10 Alkaline Phosphatase 194 H Lactate Dehydrogenase 248 H Troponin I High Sens B-Natriuretic Peptide 181 H Total Protein 6.7 Albumin 3.2 L Lipase Stool Occult Blood Blood Type Antibody Screen Crossmatch 12/29/22 12/29/22 12/29/22 12:36 12:55 13:02 WBC RBC Hgb Hct MCV MCH MCHC RDW Plt Count MPV Immature Gran % (Auto) Neut % (Auto) Lymph % (Auto) [place] % (Auto) Eos % (Auto) Baso % (Auto) Lymph # (Auto) [place] # (Auto) Eos # (Auto) Baso # (Auto) Abs Immat Gran (auto) Absolute Neuts (auto) Absolute Nucleated RBC Nucleated RBC % (auto) Absolute Retic Percent Retic Immature Retic Fraction Retic Hgb Equivalent Sodium Potassium Chloride Carbon Dioxide Anion Gap BUN Creatinine Estim Creat Clear Calc Estimated GFR POC Glucose Random Glucose Calcium Iron TIBC % Saturation Unsat Iron Binding Ferritin Total Bilirubin AST ALT Alkaline Phosphatase Lactate Dehydrogenase Troponin I High Sens B-Natriuretic Peptide Total Protein Albumin Lipase 31 Stool Occult Blood NEGATIVE Blood Type A Positive Antibody Screen NEGATIVE Crossmatch See Detail 12/29/22 12/29/22 12/29/22 17:51 19:34 22:18 WBC 7.0 RBC 2.98 L Hgb 7.8 L D Hct 25.0 L D MCV 83.9 MCH 26.2 L MCHC 31.2 RDW 16.6 H Plt Count 242 MPV 10.6 Immature Gran % (Auto) 0.4 Neut % (Auto) 59.6 Lymph % (Auto) 26.8 [place] % (Auto) 9.2 Eos % (Auto) 3.6 Baso % (Auto) 0.4 Lymph # (Auto) 1.9 [place] # (Auto) 0.7 Eos # (Auto) 0.3 Baso # (Auto) 0.0 Abs Immat Gran (auto) 0.03 Absolute Neuts (auto) 4.2 Absolute Nucleated RBC 0.000 Nucleated RBC % (auto) 0.0 Absolute Retic Percent Retic Immature Retic Fraction Retic Hgb Equivalent Sodium Potassium Chloride Carbon Dioxide Anion Gap BUN Creatinine Estim Creat Clear Calc Estimated GFR POC Glucose 143 H Random Glucose Calcium Iron TIBC % Saturation Unsat Iron Binding Ferritin Total Bilirubin AST ALT Alkaline Phosphatase Lactate Dehydrogenase Troponin I High Sens 295.9 H* B-Natriuretic Peptide Total Protein Albumin Lipase Stool Occult Blood Blood Type Antibody Screen Crossmatch 12/30/22 12/30/22 12/30/22 06:00 06:00 06:00 WBC 6.7 RBC 2.87 L Hgb 7.5 L Hct 24.0 L MCV 83.6 MCH 26.1 L MCHC 31.3 RDW 16.6 H Plt Count 238 MPV 10.3 Immature Gran % (Auto) 0.2 Neut % (Auto) 65.0 Lymph % (Auto) 20.9 [place] % (Auto) 9.6 Eos % (Auto) 3.5 Baso % (Auto) 0.8 Lymph # (Auto) 1.4 [place] # (Auto) 0.6 Eos # (Auto) 0.2 Baso # (Auto) 0.1 Abs Immat Gran (auto) 0.01 Absolute Neuts (auto) 4.3 Absolute Nucleated RBC 0.000 Nucleated RBC % (auto) 0.0 Absolute Retic Percent Retic Immature Retic Fraction Retic Hgb Equivalent Sodium 143 Potassium 4.4 D Chloride 114 H Carbon Dioxide 21 L Anion Gap 12 BUN 60 H Creatinine 1.82 H Estim Creat Clear Calc 24.7 Estimated GFR 27 POC Glucose Random Glucose 80 Calcium 8.9 Iron TIBC % Saturation Unsat Iron Binding Ferritin Total Bilirubin AST ALT Alkaline Phosphatase Lactate Dehydrogenase Troponin I High Sens 183.8 H* B-Natriuretic Peptide Total Protein Albumin Lipase Stool Occult Blood Blood Type Antibody Screen Crossmatch 12/30/22 12/30/22 12/30/22 07:27 08:48 11:35 WBC RBC Hgb Hct MCV MCH MCHC RDW Plt Count MPV Immature Gran % (Auto) Neut % (Auto) Lymph % (Auto) [place] % (Auto) Eos % (Auto) Baso % (Auto) Lymph # (Auto) [place] # (Auto) Eos # (Auto) Baso # (Auto) Abs Immat Gran (auto) Absolute Neuts (auto) Absolute Nucleated RBC Nucleated RBC % (auto) Absolute Retic Percent Retic Immature Retic Fraction Retic Hgb Equivalent Sodium Potassium Chloride Carbon Dioxide Anion Gap BUN Creatinine Estim Creat Clear Calc Estimated GFR POC Glucose 70 70 66 Random Glucose Calcium Iron TIBC % Saturation Unsat Iron Binding Ferritin Total Bilirubin AST ALT Alkaline Phosphatase Lactate Dehydrogenase Troponin I High Sens B-Natriuretic Peptide Total Protein Albumin Lipase Stool Occult Blood Blood Type Antibody Screen Crossmatch 12/30/22 12/30/22 12/30/22 12:04 15:34 19:51 WBC RBC Hgb Hct MCV MCH MCHC RDW Plt Count MPV Immature Gran % (Auto) Neut % (Auto) Lymph % (Auto) [place] % (Auto) Eos % (Auto) Baso % (Auto) Lymph # (Auto) [place] # (Auto) Eos # (Auto) Baso # (Auto) Abs Immat Gran (auto) Absolute Neuts (auto) Absolute Nucleated RBC Nucleated RBC % (auto) Absolute Retic Percent Retic Immature Retic Fraction Retic Hgb Equivalent Sodium Potassium Chloride Carbon Dioxide Anion Gap BUN Creatinine Estim Creat Clear Calc Estimated GFR POC Glucose 86 108 115 Random Glucose Calcium Iron TIBC % Saturation Unsat Iron Binding Ferritin Total Bilirubin AST ALT Alkaline Phosphatase Lactate Dehydrogenase Troponin I High Sens B-Natriuretic Peptide Total Protein Albumin Lipase Stool Occult Blood Blood Type Antibody Screen Crossmatch 12/31/22 12/31/22 12/31/22 07:30 07:49 07:49 WBC 4.6 L RBC 3.29 L Hgb 8.5 L Hct 27.5 L MCV 83.6 MCH 25.8 L MCHC 30.9 L RDW 17.2 H Plt Count 260 MPV 10.3 Immature Gran % (Auto) 0.4 Neut % (Auto) 75.2 H Lymph % (Auto) 18.8 L [place] % (Auto) 4.1 Eos % (Auto) 1.1 Baso % (Auto) 0.4 Lymph # (Auto) 0.9 L [place] # (Auto) 0.2 Eos # (Auto) 0.1 Baso # (Auto) 0.0 Abs Immat Gran (auto) 0.02 Absolute Neuts (auto) 3.5 Absolute Nucleated RBC 0.000 Nucleated RBC % (auto) 0.0 Absolute Retic Percent Retic Immature Retic Fraction Retic Hgb Equivalent Sodium 143 Potassium 4.4 Chloride 113 H Carbon Dioxide 22 Anion Gap 12 BUN 42 H Creatinine 1.44 H Estim Creat Clear Calc 31.2 Estimated GFR 36 POC Glucose 42 L* Random Glucose 161 H Calcium 9.6 D Iron TIBC % Saturation Unsat Iron Binding Ferritin Total Bilirubin AST ALT Alkaline Phosphatase Lactate Dehydrogenase Troponin I High Sens B-Natriuretic Peptide Total Protein Albumin Lipase Stool Occult Blood Blood Type Antibody Screen Crossmatch 12/31/22 12/31/22 12/31/22 07:50 10:14 11:25 WBC RBC Hgb Hct MCV MCH MCHC RDW Plt Count MPV Immature Gran % (Auto) Neut % (Auto) Lymph % (Auto) [place] % (Auto) Eos % (Auto) Baso % (Auto) Lymph # (Auto) [place] # (Auto) Eos # (Auto) Baso # (Auto) Abs Immat Gran (auto) Absolute Neuts (auto) Absolute Nucleated RBC Nucleated RBC % (auto) Absolute Retic Percent Retic Immature Retic Fraction Retic Hgb Equivalent Sodium Potassium Chloride Carbon Dioxide Anion Gap BUN Creatinine Estim Creat Clear Calc Estimated GFR POC Glucose 170 H 90 73 Random Glucose Calcium Iron TIBC % Saturation Unsat Iron Binding Ferritin Total Bilirubin AST ALT Alkaline Phosphatase Lactate Dehydrogenase Troponin I High Sens B-Natriuretic Peptide Total Protein Albumin Lipase Stool Occult Blood Blood Type Antibody Screen Crossmatch POC 79mg/dL Airway Mallampati Class: II TM Dist: >3cm Neck ROM: Full Denture: Upper and Lower Heart: RRR ?murmur Lungs: CTAB Assessment and Plan Assessment Anesthesia Assessment: Anesthesia Plan Discussed and Chart Reviewed Final Anesthetic Review Family History of Problems with Anesthesia: No History of Problems with Anesthesia: No NPO: Yes ASA Class: IV Final Preanesthetic Review: No Changes in Pt Med Stat, Meds/Allgs Chart Reviewed, Consent Obtained/Reviewed and Anes Risks/Benef Reviewed Patient Risk: High Procedure Risk: Low Assessment/Block/Sedation in SS: Assess/Block/Sedation-SS Anesthetic Plan Anesthetic Plan: MAC: Disposition: Standard PACU and Inp. Admit - IMC
[2022-12-31 12:44] LABS: Glucose, Whole Blood 79 mg/dL (60-115)
[2022-12-31] MEDS: Dextrose 5 % 250 ML 999 ML IVCONT (13:00)
--- NOTE | 2022-12-31 13:00 | PC.NURSE ---
Dr. Mehta requested repeat Troponin be completed before upper endoscopy. Order put in by this RN. Patient in preop, lab at bedside to draw blood. Trop pending at 1300. Room ready for patient. Per Dr. Noonan who saw the patient and obtained consents, no need to wait for repeat Trop to result. Dr. Loomis at bedside and in agreeance.
--- NOTE | 2022-12-31 13:00 | PC.NURSE ---
Patients blood sugar in preop 79. Patient asymptomatic. Blood sugars being monitored closely on the floor. D5W 250mls hung wide open in preop per Dr. Noonan.
--- NOTE | 2022-12-31 13:05 | MHC.SHP ---
Pre-Procedural Eval Section A Date of Service: 12/31/22 The patient is an INPATIENT: Yes Changes since office visit: Yes New Medical Problems, Yes Changes in Medication and Yes Patient answered all questions; No Cold of Flu in the past 2 weeks The History & Physical has been completed within 30 days and I have reviewed it.: Yes Section B Chief Complaint: Symptomatic Anemia Allergies: Allergies Allergy/AdvReac Type Severity Reaction Status Date / Time No Known Allergies Allergy Verified 12/31/22 12:34 [No Known Allergies*] Plan I have reviewed the history and physical and performed a pertinent physical examination on my patient. No changes have occurred unless specified. Time Spent With Patient Time: Total time managing care of this patient today ____ minutes.
[2022-12-31] MEDS: Lactated Ringers 1,000 ML 50 ML IVCONT (13:10)
[2022-12-31 13:16] LABS: Troponin-I High Sensitivity 143.6 ng/L (<3.5-17.0)
--- NOTE | 2022-12-31 13:20 | W.PM.OPN ---
Operative Note Operative Note Date of Service: 12/31/22 Narrative: FLEXIBLE TRANSORAL UPPER GASTROINTESTINAL ENDOSCOPY WITH BIOPSIES AND APC OF GAVE Pre-op diagnosis: acute on chronic ORAL, suspected GI bleeding Post-op diagnosis: Gastric Antral Vascular Ectasia (GAVE), gastric antral nodule, esophageal varix Endoscopist:? Malik Shepard MD Anesthesia:?MAC Consent: Indications for the procedure and potential complications of bleeding, perforation, reaction to medications and missed diagnosis were discussed with the patient and informed consent was obtained. Instrument: Olympus GIF H 190 mid size upper endoscope Monitoring: Vital signs and clinical assessment, continuous EKG monitoring, Pulse oximetry, Carbon Dioxide monitoring and blood pressure monitoring were done throughout the procedure. Procedure: The patient was placed in the left lateral decubitis position and pre-procedure medications were administered and a bite block was placed. The endoscope was inserted into the mouth and advanced under direct vision to the third part of duodenum. A careful inspection was made as the upper endoscope was withdrawn including a retroflexed examination of the proximal stomach; Findings and interventions are described below. Findings: Larynx: Normal Esophagus: A single non-bleeding, Grade 1 varix from 25 to 30 cms - flattened completely on air insufflation and not amenable to band ligation. GE junction at 30 cms. No esophagitis or Elaine's. Stomach: Mild GAVE in the antrum - treated with APC. An 8-10 mm benign appearing nodule/polyp in the antrum - biopsied. Mild gastric erythema. Biopsies were obtained. No gastric varices and grade 2 flap valve on retroflexed examination of the cardia. Duodenum: Normal bulb and descending duodenum Intervention: Biopsies and APC of GAVE as noted above Impression and Post Procedure Diagnosis: Endoscopy Findings: ESOPHAGUS: A single non-bleeding, Grade 1 varix from 25 to 30 cms - flattened completely on air insufflation and not amenable to band ligation. STOMACH: Mild GAVE in the antrum - treated with APC. An 8-10 mm benign appearing nodule/polyp in the antrum - biopsied. Plan: Ok to DC home on Pantoprazole 40 mg daily and PO iron . FU CBC next week to FU on anemia Repeat EGD in 1 year. Patient has an appointment on 03/19/23 in the [facility] with Malik Shepard M.D. Above findings were reviewed with the patient with the help of [employer] protective clothing issuer
[2022-12-31 14:01] LABS: Glucose, Whole Blood 77 mg/dL (60-115)
[2022-12-31 14:33] LABS: Glucose, Whole Blood 63 mg/dL (60-115)
[2022-12-31 14:50] LABS: Glucose, Whole Blood 78 mg/dL (60-115)
--- NOTE | 2022-12-31 15:42 | P.PNIM_ITS ---
Subjective Subjective Date of Service: 12/31/22 Review of Systems Follow-up anemia Denies nausea, vomiting, diarrhea No abdominal pain No blood per rectum Physical Exam Vital Signs: Vital Signs: Last Vital Signs Temp 97.9 F 12/31/22 15:18 Pulse 85 12/31/22 15:18 Resp 15 12/31/22 15:18 BP 150/70 H 12/31/22 15:18 Pulse Ox 96 12/31/22 15:18 O2 Del Method Room Air 12/31/22 15:18 O2 Flow Rate 1 12/30/22 07:13 BMI result Body Mass Index 39.2 Appearing in no acute distress lung sounds are clear to auscultation heart regular rate rhythm, clear S1, S2 positive bowel sounds, abdomen is soft, nontender neuro patient is alert x3, no focal deficits Objective Data Active Medications Acetaminophen (Acetaminophen 325 Mg Tablet) 650 mg PO Q6H PRN PRN Reason: Pain, Mild (Pain Scale 1-3) Last Admin: 12/31/22 07:46 Dose: 650 mg Documented By: LORIE Albuterol/Ipratropium (Albuterol/Iprat 2.5/0.5mg 3 Ml Ampul.Neb) 3 ml INHALE RQ4H WHILE AWAKE PRN PRN Reason: Wheezing Last Admin: 12/29/22 21:00 Dose: 3 ml Documented By: RUPESH Dextrose (Dextrose 50 % 25 Gm/50 Ml Syringe) 25 gm IVPUSH Q15M PRN; Protocol PRN Reason: per Hypoglycemia Standing Ord. Last Admin: 12/31/22 07:38 Dose: 25 gm Documented By: LORIE Docusate Sodium (Docusate Sodium 100 Mg Capsule) 100 mg PO DAILY PRN PRN Reason: Constipation Glucose (Glucose Gel 15 Gm Gel..Gram.) 15 gm PO Q15M PRN; Protocol PRN Reason: per Hypoglycemia Standing Ord. Dextrose/Sodium Chloride (D5ns) 1,000 mls @ 100 mls/hr IVCONT .Q10H [facility] Last Admin: 12/31/22 12:19 Dose: 100 mls/hr Documented By: LORIE Lactated Ringer's (Lr) 1,000 mls @ 50 mls/hr IVCONT .Q20H [facility] Last Admin: 12/31/22 13:10 Dose: 50 mls/hr Documented By: CLAYTON Insulin Glargine (Insulin Glargine,Hum.Rec.Anlog 100 Unit/Ml 10 Ml Vial) 30 unit SUBCUT BEDTIME [facility] Last Admin: 12/30/22 21:42 Dose: 30 unit Documented By: IRIS Insulin Human Lispro (Insulin Lispro 100 Unit/Ml 3 Ml Vial) 0 unit SUBCUT Q IDACHS [facility]; Protocol Last Admin: 12/31/22 11:45 Dose: Not Given Documented By: LORIE Non-Admin Reason: NPO Loratadine (Loratadine 10 Mg Tablet) 10 mg PO DAILY PRN PRN Reason: Allergic Symptoms Ondansetron HCl (Ondansetron Hcl 4 Mg/2 Ml Vial) 4 mg IVPUSH Q8H PRN PRN Reason: Nausea and Vomiting Last Admin: 12/30/22 22:00 Dose: 4 mg Documented By: IRIS Ondansetron HCl (Ondansetron Hcl 4 Mg/2 Ml Vial) 4 mg IVPUSH ONCE PRN PRN Reason: Nausea and Vomiting Pantoprazole Sodium (Pantoprazole Sodium 40 Mg/10 Ml Vial) 40 mg IVPUSH BID@06 30,1630 [facility] Last Admin: 12/31/22 06:26 Dose: 40 mg Documented By: IRIS Quetiapine Fumarate (Quetiapine Fumarate 25 Mg Tablet) 25 mg PO Q12H PRN PRN Reason: anxiety Sodium Chloride (0.9 % Sodium Chloride Flush 3 Ml Syringe) 3 ml IVFLUSH QSHIFT [facility] Last Admin: 12/31/22 07:39 Dose: 3 ml Documented By: LORIE Trazodone HCl (Trazodone Hcl 100 Mg Tablet) 100 mg PO BEDTIME [facility] Last Admin: 12/30/22 21:41 Dose: 100 mg Documented By: RIIS Ursodiol (Ursodiol 300 Mg Capsule) 600 mg PO BID [facility] Last Admin: 12/31/22 07:47 Dose: 600 mg Documented By: LORIE Vitamin D (Cholecalciferol (Vitamin D3) 25 Mcg Tablet) 50 mcg PO DAILY [facility] Last Admin: 12/31/22 07:46 Dose: 50 mcg Documented By: LORIE Labs 12/31/22 07:49 12/31/22 07:49 Labs: Laboratory Results - last 24 hr 12/30/22 12/31/22 12/31/22 19:51 07:30 07:49 MCV 83.6 MCH 25.8 L MCHC 30.9 L RDW 17.2 H Plt Count 260 MPV 10.3 Immature Gran % (Auto) 0.4 Neut % (Auto) 75.2 H Lymph % (Auto) 18.8 L [place] % (Auto) 4.1 Eos % (Auto) 1.1 Baso % (Auto) 0.4 Lymph # (Auto) 0.9 L [place] # (Auto) 0.2 Eos # (Auto) 0.1 Baso # (Auto) 0.0 Abs Immat Gran (auto) 0.02 Absolute Neuts (auto) 3.5 Absolute Nucleated RBC 0.000 Nucleated RBC % (auto) 0.0 Anion Gap Estim Creat Clear Calc Estimated GFR POC Glucose 115 42 L* Random Glucose Calcium 12/31/22 12/31/22 12/31/22 07:49 07:50 10:14 MCV MCH MCHC RDW Plt Count MPV Immature Gran % (Auto) Neut % (Auto) Lymph % (Auto) [place] % (Auto) Eos % (Auto) Baso % (Auto) Lymph # (Auto) [place] # (Auto) Eos # (Auto) Baso # (Auto) Abs Immat Gran (auto) Absolute Neuts (auto) Absolute Nucleated RBC Nucleated RBC % (auto) Anion Gap 12 Estim Creat Clear Calc 31.2 Estimated GFR 36 POC Glucose 170 H 90 Random Glucose 161 H Calcium 9.6 D 12/31/22 12/31/22 12/31/22 11:25 12:40 13:55 MCV MCH MCHC RDW Plt Count MPV Immature Gran % (Auto) Neut % (Auto) Lymph % (Auto) [place] % (Auto) Eos % (Auto) Baso % (Auto) Lymph # (Auto) [place] # (Auto) Eos # (Auto) Baso # (Auto) Abs Immat Gran (auto) Absolute Neuts (auto) Absolute Nucleated RBC Nucleated RBC % (auto) Anion Gap Estim Creat Clear Calc Estimated GFR POC Glucose 73 79 77 Random Glucose Calcium 12/31/22 12/31/22 14:29 14:45 MCV MCH MCHC RDW Plt Count MPV Immature Gran % (Auto) Neut % (Auto) Lymph % (Auto) [place] % (Auto) Eos % (Auto) Baso % (Auto) Lymph # (Auto) [place] # (Auto) Eos # (Auto) Baso # (Auto) Abs Immat Gran (auto) Absolute Neuts (auto) Absolute Nucleated RBC Nucleated RBC % (auto) Anion Gap Estim Creat Clear Calc Estimated GFR POC Glucose 63 78 Random Glucose Calcium Assessment and Plan (1) CHF (congestive heart failure): Status: Acute (2) Anemia: Status: Acute Plan 72-year-old female with history of insulin-dependent type 2 diabetes, CKD stage 3, iron deficiency anemia, hyperlipidemia, hypertension, history of autoimmune hepatitis/cholangitis admitted for symptomatic anemia with unclear etiology. Elevated BNP not in overt failure but with some sob Seen by Cardiology ( for EGD clearance) clinically appear to be in mild overload. rec> 1 dose of IV Lasix Recheck BNP in the morning Acute on chronic symptomatic anemia- etiology unclear at this time Stool occult blood negative, denies melena/hematochezia, but does have history of GI bleed Iron 35/TIBC 366, Ferritin 8 s/p 1 unit packed RBC in ED IV PPI for now status post EGD> no active bleeding, gastric antral vascular ectasia. continue home dose of Protonix, hold aspirin for 1 week, daily iron replacement, follow- up with GI outpatient, check CBC in 1 week hold asa Acute kidney injury on CKD stage 3. resolving likely secondary to hypoperfusion Transfuse as above Avoid nephrotoxins Follow BMP, consider nephro if not improving Chest pain likely secondary to above EKG non ischemic. trop elevated 259.9, 183.8 needs cardio consult/clearance prior to EGD echo pending insulin-dependent type 2 diabetes sliding scale lantus hypertension hold antihypertensives in light of anemia HLD continue statin GERD IV PPI DVT prophylaxis-SCPs Attending Dr. Rose DNR/DNI Disposition. Patient does not want to go to rehab will discharge home when medically clear continue hospitalization for treatment of acute symptomatic anemia requiring endoscopy and close monitoring of blood levels Time Spent With Patient Time: Total time managing care of this patient today ____ minutes. Quality Stroke Does the patient have a stroke diagnosis?: No VTE Prior VTE?: No VTE Risk Level:: Medical - moderate - high VTE Device Contraindication: Treatment Not Indicated VTE Drug Contraindication: N/A - Med Ordered
[2022-12-31] MEDS: ondansetron HCL 4 MG/2 ML VIAL IVPUSH (17:46)
[2022-12-31 18:25] LABS: Glucose, Whole Blood 191 mg/dL (60-115)
[2022-12-31] MEDS: Ferrous Sulfate 324 MG TABLET.DR PO (19:44)
[2022-12-31 19:46] LABS: Glucose, Whole Blood 161 mg/dL (60-115)
[2022-12-31] MEDS: traZODone HCL 100 MG TABLET PO (21:58)
[2022-12-31] MEDS: Insulin Glargine,Hum.rec.anlog 100 UNIT/ML 10 ML VIAL 30 UNIT SUBCUT (21:58)
[2022-12-31] MEDS: Insulin Lispro 100 UNIT/ML 3 ML VIAL SUBCUT (21:59)
[2023-01-01] VITALS (8 sets, daily range): BP systolic 136–190; BP diastolic 63–99; PULSE 70–93; RESP 18–20; TEMP 36.6–37.1; O2SAT 93–99
[2023-01-01] MEDS: Dextrose 5 % and 0.9 % NaCl 1,000 ML 100 ML IVCONT ×2 (00:03→07:39)
[2023-01-01] MEDS: 0.9 % Sodium Chloride Flush 3 ML SYRINGE IVFLUSH ×2 (00:10→15:03)
[2023-01-01] MEDS: Pantoprazole Sodium 40 MG/10 ML VIAL IVPUSH ×2 (06:18→15:03)
[2023-01-01 06:42] LABS: MANUAL DIFF FLAG NO
[2023-01-01 06:46] LABS: Basophils Percent Auto 0.5 % (0-2); Eosinophils Absolute Auto 0.2 X10*3/uL (0.0-0.4); Eosinophils Percent Auto 3.6 % (0-4); Hematocrit 24.7 % (37.0-47.0); Hemoglobin 7.7 g/dl (12.0-16.0); Imm Gran Abs Auto 0.02 X10*3/uL (0.00-0.03); Imm Gran Pct Auto 0.3 % (0.0-0.4); Lymphocytes Absolute Auto 1.8 X10*3/uL (1.2-4.9); Mean Corpuscular HGB Conc 31.2 g/dl (31.0-35.0); Mean Corpuscular Volume 83.4 fL (80.0-98.0); Mean Platelet Volume 10.6 fL (9.4-12.3); Monocytes Absolute Auto 0.7 X10*3/uL (0.1-1.2); Neutrophils Absolute Auto 3.9 x10*3/uL (2.0-8.3); Neutrophils Percent Auto 58.6 % (45-73); Platelet Count 253 X10*3/uL (160-400); Red Blood Count 2.96 X10*6/uL (4.20-5.50); Red Cell Distribution Width 17.2 % (11.0-16.0); White Blood Count 6.6 X10*3/uL (4.8-10.8)
[2023-01-01 07:02] LABS: Anion Gap 9 (12-20); Blood Urea Nitrogen 35 mg/dL (9-16); Calcium 9.2 mg/dL (8.4-10.2); Carbon Dioxide 23 mmol/L (22-29); Chloride 114 mmol/L (96-108); Estimated Glomerular Filt Rate 42; Sodium 142 mmol/L (135-145)
[2023-01-01 07:06] LABS: B Type Natriuretic Peptide 75 pg/mL (<100)
[2023-01-01 07:15] LABS: Glucose Random 45 mg/dL (60-115)
[2023-01-01] MEDS: Dextrose 50 % 25 GM/50 ML SYRINGE IVPUSH (07:21)
[2023-01-01] MEDS: Cholecalciferol (Vitamin D3) 25 MCG TABLET 50 MCG PO (07:29)
[2023-01-01] MEDS: UrsodioL 300 MG CAPSULE 600 MG PO ×2 (07:29→20:01)
[2023-01-01] MEDS: Acetaminophen 325 MG TABLET 650 MG PO ×2 (07:29→20:04)
[2023-01-01] MEDS: Ferrous Sulfate 324 MG TABLET.DR PO (07:30)
[2023-01-01 07:59] LABS: Glucose, Whole Blood 34 mg/dL (60-115)
[2023-01-01 08:05] LABS: Glucose, Whole Blood 95 mg/dL (60-115)
[2023-01-01 09:07] LABS: Estimated Average Glucose 146 mg/dL; Hemoglobin A1c % 6.7 % (<6.0)
[2023-01-01 10:34] LABS: Glucose, Whole Blood 69 mg/dL (60-115)
--- NOTE | 2023-01-01 10:49 | MHC.CM.PN ---
Addendum entered by Erica Sewell RN 01/01/23 11:50: cm contacted pt's dtr/hcp who reported the vna won't wait for pt or pt's configuration management consultant to come down and let vna in and is requesting new vna referral, broad referral placed and cm awaiting offer. Original Note: CM RECEIVED MESSAGE FROM PT'S [facility] [employer] THAT THEY CAN NO LONGER PROVIDE SERVICE FOR PT SHE WAS NOT AT HOME OR DIDN'T ANSWER DOOR THE LAST 3/4 ATTEMPTED VISITS, HOSPITALIST AWARE.
[2023-01-01 12:14] LABS: Glucose, Whole Blood 108 mg/dL (60-115)
--- NOTE | 2023-01-01 13:41 | HO.PM.IMPN ---
Subjective Subjective Date of Service: 01/02/23 Interval History: seen and examined this morning follow up for anemia POC low this am, pt asymptomatic history obtained with the assistance of a band and cuff cutter denies any bleeding Review of Systems Review of Systems: Yes all other systems are reviewed and are negative Constitutional Constitutional: Denies chills and Denies fever(s) ENT Ears, Nose, Mouth, and Throat: Denies dizziness Cardiovascular Cardiovascular: Denies chest pain and Denies dyspnea Respiratory Respiratory: Denies dyspnea Gastrointestinal Gastrointestinal: Denies abdominal pain Neurologic Neurologic: Denies dizziness Physical Exam Vital Signs: Vital Signs: Last Vital Signs Temp 97.8 F 01/01/23 12:00 Pulse 87 01/01/23 12:00 Resp 20 01/01/23 12:00 BP 190/99 H 01/01/23 12:00 Pulse Ox 99 01/01/23 13:30 O2 Del Method Room Air 01/01/23 13:30 O2 Flow Rate 1 12/30/22 07:13 BMI result Body Mass Index 39.2 Const: General: cooperative, comfortable, no acute distress, alert and awake Nutritional Appearance: overweight Orientation/consciousness: patient oriented x3 Resp: Effort & Inspection: normal respiratory effort, able to speak in complete sentences, no respiratory distress and no use of accessory muscles GI: Inspection: No distended Palpation (GI): Soft to palpation Neuro: Other: grossly nonfocal General: patient oriented x3 Objective Data Active Medications Acetaminophen (Acetaminophen 325 Mg Tablet) 650 mg PO Q6H PRN PRN Reason: Pain, Mild (Pain Scale 1-3) Last Admin: 01/01/23 07:29 Dose: 650 mg Documented By: JAKOB Albuterol/Ipratropium (Albuterol/Iprat 2.5/0.5mg 3 Ml Ampul.Neb) 3 ml INHALE RQ4H WHILE AWAKE PRN PRN Reason: Wheezing Last Admin: 12/29/22 21:00 Dose: 3 ml Documented By: RUPESH Dextrose (Dextrose 50 % 25 Gm/50 Ml Syringe) 25 gm IVPUSH Q15M PRN; Protocol PRN Reason: per Hypoglycemia Standing Ord. Last Admin: 01/01/23 07:21 Dose: 25 gm Documented By: JAKOB Docusate Sodium (Docusate Sodium 100 Mg Capsule) 100 mg PO DAILY PRN PRN Reason: Constipation Ferrous Sulfate (Ferrous Sulfate 324 Mg Tablet.Dr) 324 mg PO DAILY [facility] Last Admin: 01/01/23 07:30 Dose: 324 mg Documented By: JAKOB Glucose (Glucose Gel 15 Gm Gel..Gram.) 15 gm PO Q15M PRN; Protocol PRN Reason: per Hypoglycemia Standing Ord. Insulin Human Lispro (Insulin Lispro 100 Unit/Ml 3 Ml Vial) 0 unit SUBCUT QIDACHS [facility]; Protocol Last Admin: 01/01/23 10:41 Dose: Not Given Documented By: JAKOB Non-Admin Reason: No Insulin Coverage Loratadine (Loratadine 10 Mg Tablet) 10 mg PO DAILY PRN PRN Reason: Allergic Symptoms Ondansetron HCl (Ondansetron Hcl 4 Mg/2 Ml Vial) 4 mg IVPUSH Q8H PRN PRN Reason: Nausea and Vomiting Last Admin: 12/31/22 17:46 Dose: 4 mg Documented By: ALYSSA Ondansetron HCl (Ondansetron Hcl 4 Mg/2 Ml Vial) 4 mg IVPUSH ONCE PRN PRN Reason: Nausea and Vomiting Pantoprazole Sodium (Pantoprazole Sodium 40 Mg/10 Ml Vial) 40 mg IVPUSH BID@0630,1630 [facility] Last Admin: 01/01/23 06:18 Dose: 40 mg Documented By: ANTSARAH BETH Quetiapine Fumarate (Quetiapine Fumarate 25 Mg Tablet) 25 mg PO Q12H PRN PRN Reason: anxiety Sodium Chloride (0.9 % Sodium Chloride Flush 3 Ml Syringe) 3 ml IVFLUSH QSHIFT [facility] Last Admin: 01/01/23 07:30 Dose: Not Given Documented By: JAKOB Non-Admin Reason: IV Running Trazodone HCl (Trazodone Hcl 100 Mg Tablet) 100 mg PO BEDTIME [facility] Last Admin: 12/31/22 21:58 Dose: 100 mg Documented By: ALYSSA Ursodiol (Ursodiol 300 Mg Capsule) 600 mg PO BID [facility] Last Admin: 01/01/23 07:29 Dose: 600 mg Documented By: JAKOB Vitamin D (Cholecalciferol (Vitamin D3) 25 Mcg Tablet) 50 mcg PO DAILY [facility] Last Admin: 01/01/23 07:29 Dose: 50 mcg Documented By: JAKOB Labs 01/01/23 06:14 01/01/23 06:14 Labs: Laboratory Results - last 24 hr 12/31/22 12/31/22 12/31/22 13:55 14:29 14:45 MCV MCH MCHC RDW Plt Count MPV Immature Gran % (Auto) Neut % (Auto) Lymph % (Auto) [place] % (Auto) Eos % (Auto) Baso % (Auto) Lymph # (Auto) [place] # (Auto) Eos # (Auto) Baso # (Auto) Abs Immat Gran (auto) Absolute Neuts (auto) Absolute Nucleated RBC Nucleated RBC % (auto) Anion Gap Estim Creat Clear Calc Estimated GFR POC Glucose 77 63 78 Random Glucose Estimat Average Glucose Hemoglobin A1c % Calcium B-Natriuretic Peptide 12/31/22 12/31/22 01/01/23 17:30 19:43 06:14 MCV 83.4 MCH 26.0 L MCHC 31.2 RDW 17.2 H Plt Count 253 MPV 10.6 Immature Gran % (Auto) 0.3 Neut % (Auto) 58.6 Lymph % (Auto) 27.0 [place] % (Auto) 10.0 Eos % (Auto) 3.6 Baso % (Auto) 0.5 Lymph # (Auto) 1.8 [place] # (Auto) 0.7 Eos # (Auto) 0.2 Baso # (Auto) 0.0 Abs Immat Gran (auto) 0.02 Absolute Neuts (auto) 3.9 Absolute Nucleated RBC 0.000 Nucleated RBC % (auto) 0.0 Anion Gap Estim Creat Clear Calc Estimated GFR POC Glucose 191 H 161 H Random Glucose Estimat Average Glucose Hemoglobin A1c % Calcium B-Natriuretic Peptide 01/01/23 01/01/23 01/01/23 06:14 06:14 07:25 MCV MCH MCHC RDW Plt Count MPV Immature Gran % (Auto) Neut % (Auto) Lymph % (Auto) [place] % (Auto) Eos % (Auto) Baso % (Auto) Lymph # (Auto) [place] # (Auto) Eos # (Auto) Baso # (Auto) Abs Immat Gran (auto) Absolute Neuts (auto) Absolute Nucleated RBC Nucleated RBC % (auto) Anion Gap 9 L Estim Creat Clear Calc 36.0 Estimated GFR 42 POC Glucose 34 L* Random Glucose 45 L* Estimat Average Glucose Hemoglobin A1c % Calcium 9.2 B-Natriuretic Peptide 75 01/01/23 01/01/23 01/01/23 08:01 08:31 10:31 MCV MCH MCHC RDW Plt Count MPV Immature Gran % (Auto) Neut % (Auto) Lymph % (Auto) [place] % (Auto) Eos % (Auto) Baso % (Auto) Lymph # (Auto) [place] # (Auto) Eos # (Auto) Baso # (Auto) Abs Immat Gran (auto) Absolute Neuts (auto) Absolute Nucleated RBC Nucleated RBC % (auto) Anion Gap Estim Creat Clear Calc Estimated GFR POC Glucose 95 69 Random Glucose Estimat Average Glucose 146 Hemoglobin A1c % 6.7 H Calcium B-Natriuretic Peptide 01/01/23 12:06 MCV MCH MCHC RDW Plt Count MPV Immature Gran % (Auto) Neut % (Auto) Lymph % (Auto) [place] % (Auto) Eos % (Auto) Baso % (Auto) Lymph # (Auto) [place] # (Auto) Eos # (Auto) Baso # (Auto) Abs Immat Gran (auto) Absolute Neuts (auto) Absolute Nucleated RBC Nucleated RBC % (auto) Anion Gap Estim Creat Clear Calc Estimated GFR POC Glucose 108 Random Glucose Estimat Average Glucose Hemoglobin A1c % Calcium B-Natriuretic Peptide Assessment and Plan (1) Symptomatic anemia: Status: Acute Plan 72-year-old female with history of insulin-dependent type 2 diabetes, CKD stage 3, iron deficiency anemia, hyperlipidemia, hypertension, history of autoimmune hepatitis/cholangitis admitted for symptomatic anemia with unclear etiology. Acute on chronic symptomatic anemia Stool occult blood negative, denies melena/hematochezia; does have history of GI bleed Iron 35/TIBC 366, Ferritin 8 s/p 1 unit packed RBC in ED seen by hematology - possibly r/t kidney dz; no evidence of hemolysis IV PPI for now status post EGD> no active bleeding, gastric antral vascular ectasia. continue pantoprazole 40 mg daily, hold aspirin for 1 week, daily iron replacement, follow-up with GI outpatient, check CBC in 1 week hold asa Acute kidney injury on CKD stage 3. resolving likely secondary to hypoperfusion Avoid nephrotoxins Elevated BNP not in overt failure but with some sob Seen by Cardiology ( for EGD clearance) clinically appear to be in mild overload. rec> 1 dose of IV Lasix Chest pain likely secondary to above EKG non ischemic. trop elevated 259.9, 183.8 needs cardio consult/clearance prior to EGD echo pending insulin-dependent type 2 diabetes sliding scale lantus hypertension bp trending up resume lopressor hold darling for judy - renal function improving norvasc, will resume lower dose and can uptitrate prn HLD continue statin GERD IV PPI DVT prophylaxis-SCPs Attending Dr. Rose DNR/DNI Disposition. Patient does not want to go to rehab will discharge home when medically clear continue hospitalization for treatment of acute symptomatic anemia requiring endoscopy and close monitoring of blood levels Time Spent With Patient Time: Total time managing care of this patient today ____ minutes. Quality Stroke Does the patient have a stroke diagnosis?: No VTE Prior VTE?: No VTE Risk Level:: Medical - moderate - high VTE Device Contraindication: Treatment Not Indicated VTE Drug Contraindication: N/A - Med Ordered
[2023-01-01] MEDS: Metoprolol Tartrate 12.5 MG HALFTAB PO (15:03)
[2023-01-01] MEDS: amLODIPine Besylate 2.5 MG TABLET PO (15:03)
[2023-01-01 16:10] LABS: Glucose, Whole Blood 107 mg/dL (60-115)
[2023-01-01] MEDS: traZODone HCL 100 MG TABLET PO (20:01)
[2023-01-01 20:27] LABS: Glucose, Whole Blood 141 mg/dL (60-115)
[2023-01-02 03:11] VITALS: BP 157/67; PULSE 70; RESP 20; TEMP 36.7; O2SAT 98
[2023-01-02] MEDS: 0.9 % Sodium Chloride Flush 3 ML SYRINGE IVFLUSH ×2 (06:07→08:20)
[2023-01-02 07:18] LABS: Glucose, Whole Blood 170 mg/dL (60-115)
[2023-01-02 07:18] LABS: Glucose, Whole Blood 169 mg/dL (60-115)
[2023-01-02 07:25] VITALS: BP 157/64; PULSE 74; RESP 16; TEMP 37.3; O2SAT 94
[2023-01-02] MEDS: UrsodioL 300 MG CAPSULE 600 MG PO (08:17)
[2023-01-02] MEDS: amLODIPine Besylate 5 MG TABLET PO (08:17)
[2023-01-02] MEDS: Cholecalciferol (Vitamin D3) 25 MCG TABLET 50 MCG PO (08:17)
[2023-01-02] MEDS: Metoprolol Tartrate 12.5 MG HALFTAB PO (08:18)
[2023-01-02] MEDS: Acetaminophen 325 MG TABLET 650 MG PO (08:18)
[2023-01-02] MEDS: Ferrous Sulfate 324 MG TABLET.DR PO (08:18)
[2023-01-02 09:47] VITALS: TEMP 36.4
--- NOTE | 2023-01-02 10:44 | P.DS_ITS ---
DS: Providers Provider Date of Service: 01/02/23 Date of admission: 12/29/22 14:28 Date of discharge: 01/02/23 Primary care physician: Lo Donato MD Consults: 12/29/22 14:46 Consult to Gastroenterology Routine Consulting Provider: Mary Haines Reason for consultation: symptomatic anemia Consult to Hematology / Oncology Routine Consulting Provider: Grecia Bearden Reason for consultation: symptomatic anemia 12/29/22 19:00 Consult to Cardiology Routine Consulting Provider: [facility] [place] [facility] Reason for consultation: elevated troponin Has provider been notified: Yes Attending physician on discharge: Chance Rose Discharging clinician: Mecca Kunz DS: Diagnosis Discharge Diagnosis (1) Symptomatic anemia: Status: Acute DS: Summary Hospital Course Hospital Course: From H&P on the day of admission 72-year-old female with history of insulin- dependent type 2 diabetes, CKD stage 3, iron deficiency anemia, hyperlipidemia, hypertension, history of autoimmune hepatitis/cholangitis who presented to the ED earlier today at the recommendation of her PCP due to symptomatic anemia.? The patient has been experiencing dyspnea on exertion, chest tightness, generalized weakness, orthopnea, and fatigue ongoing for about 3 days.? She denies any epistaxis, melena, hematochezia.? Has had generalized abdominal pain and increased bloating/belching. NO fevers, chills, recent illness, diarrhea, constipation, lightheadedness, syncope.? On arrival, blood pressure somewhat soft at 106/36 119/44.? Vitals otherwise stable.? There is no leukocytosis.? H/H 6.2/20.7%, MCV 83.1 (H/H at [facility] 07/24 10.4/32.7%, MCV 84.7).? Platelets 230.? Creatinine 1.76, baseline 1.2 from [facility] 07/24.? BUN 64, was 30 at [facility] 07/24.? Sodium 1.39, potassium 5.8, chloride 114, CO2 18.? BNP 181.? Troponin pending.? Stool occult blood negative.? CXR ordered.? EKG shows sinus bradycardia, no significant ST/T-wave abnormality. Hospital course by problem: Acute on chronic symptomatic anemia Stool occult blood negative, denies melena/hematochezia; does have history of GI bleed. Iron 35/TIBC 366, Ferritin 8. s/p 1 unit packed RBC in ED on day of admission. seen in consultation by hematology - anemia possibly r/t kidney dz; no evidence of hemolysis. Treated with IV PPI. Was seen by GI and underwent EGD 12/31 which showed no active bleeding, gastric antral vascular ectasia. Gi recommended to continue pantoprazole 40 mg daily, hold aspirin for 1 week, daily iron replacement, and follow-up with GI outpatient, check CBC in 1 week. H/H on day of discharge was stable at 8.5/27.9 Acute kidney injury on CKD stage 3. Resolved, likely secondary to hypoperfusion. SHAMIKA-inhibitor was placed on hold. Creatinine improved to 1.25 from 1.82. enalapril has been discontinued Elevated BNP not in overt failure but with some sob. Seen by Cardiology ( for EGD clearance) clinically appear to be in mild overload. rec> 1 dose of IV Lasix. no further episodes shortness of breath Chest pain likely secondary to anemia. EKG non ischemic. trop elevated 259.9, 183.8. seen in consultation by Cardiology who felt symptoms /elevated troponin were secondary to anemia, no further inpatient workup necessary. will need outpatient follow up. insulin-dependent type 2 diabetes Baseline tokasia was initially transition to Lantus as inpatient. She had multiple episodes of asymptomatic hypoglycemia. Hemoglobin A1c was checked and was 6.7. will stop pre meal insulin, discontinue toujeo, transition to Lantus 10 units. She has been instructed to monitor blood sugar closely and keep a log of blood sugars. she will be discharged home with VNA services for close monitoring. hypertension Antihypertensives initially placed on hold to prevent hypotension in the setting of anemia. Blood pressure remained stable resumed on Lopressor and 5 mg of Norvasc with adequate blood pressure control. Enalpril remained on hold. R ecommend outpatient follow-up with PCP for further blood pressure monitoring and titration as needed. Time Spent with Patient Time attestation: Total time managing care of this patient today ____ minutes. Discharge coordination time: Greater than 30 minutes Quality: Safe Use of Opioids Does Pt have an Active Cancer Diagnosis on the Problem List?: No Quality: Stroke Does the patient have a stroke diagnosis?: No Physical Exam Vital Signs: Vital Signs: Last Vital Signs Temp 97.6 F 01/02/23 09:47 Pulse 74 09/01/23 07:25 Resp 16 01/02/23 07:25 BP 157/64 H 01/02/23 07:25 Pulse Ox 94 01/02/23 07:25 O2 Del Method Room Air 01/02/23 07:25 O2 Flow Rate 1 12/30/22 07:13 BMI result Body Mass Index 39.2 Const: General: cooperative, comfortable, no acute distress, alert and awake Nutritional Appearance: overweight Orientation/consciousness: patient oriented x3 Resp: Effort & Inspection: normal respiratory effort, able to speak in complete sentences, no respiratory distress and no use of accessory muscles GI: Inspection: No distended Palpation (GI): Soft to palpation Neuro: Other: grossly nonfocal General: patient oriented x3 Extrem: General: Yes no pedal edema DS: Data Data Completed and Pending Completed studies during hospitalization [Text1]: Procedures Control Bleeding in Gastrointestinal Tract, Via Natural or Artificial Opening Endoscopic (04/05/21) Excision of Large Intestine, Via Natural or Artificial Opening Endoscopic, Diagnostic (04/05/21) Excision of Stomach, Pylorus, Via Natural or Artificial Opening Endoscopic, Diagnostic (04/05/21) Transfusion of Nonautologous Red Blood Cells into Peripheral Vein, Percutaneous Approach (04/05/21) Pending studies at discharge: Pending at discharge 12/31/22 13:43 Surgical [PTH] Routine Labs on day of discharge: Laboratory Results - last 24 hr 01/01/23 01/01/23 01/01/23 12:06 16:06 20:23 POC Glucose 108 107 141 H 01/02/23 01/02/23 07:09 07:11 POC Glucose 169 H 170 H Discharge Plan Discharge Anticipated Discharge Date/Time: 01/02/23 12:05 Patient Disposition: Home Health Service Discharge Diagnosis: anemia elevated troponin judy Referrals: Lo Donato MD [Primary Care Provider] - 1 Week Malik Shepard MD [Physician] - 1 Week Discharge Medications: New ferrous sulfate 324 mg (65 mg iron) Tablet,Delayed Release (Dr/Ec) 324 mg PO DAILY 30 Days Qty: 30 0RF amlodipine 5 mg Tablet 5 mg PO DAILY 30 Days Qty: 30 0RF Protocol: Hold for SBP< HOLD for SBP < : 90 insulin glargine [Lantus Solostar U-100 Insulin] 100 unit/mL (3 mL) insulin pen 10 unit subcut QPM Qty: 15 0RF Continued ursodiol 500 mg tablet 500 mg PO BID 30 Days Qty: 60 2RF quetiapine 25 mg tablet 25 mg PO Q12H PRN (Reason: anxiety) trazodone 100 mg tablet 100 mg PO BEDTIME pantoprazole 40 mg tablet,delayed release (DR/EC) 40 mg PO DAILY Linzess 145 mcg capsule 145 mcg PO DAILY PRN (Reason: GI UPSET) metoprolol tartrate 25 mg tablet 12.5 mg PO DAILY cholecalciferol (vitamin D3) 50 mcg (2,000 unit) capsule 2,000 unit PO DAILY All Day Allergy (cetirizine) 10 mg capsule 10 mg PO DAILY PRN (Reason: Allergic Symptoms) Held aspirin [Adult Aspirin Regimen] 81 mg tablet,delayed release (DR/EC) 81 mg PO DAILY Hold Instructions: hold for one week from EGD on 12/31 - resume 01/07 Discontinued enalapril maleate 5 mg tablet 1 tab PO DAILY amlodipine 10 mg tablet 10 mg PO QAM insulin lispro [Humalog KwikPen Insulin] 100 unit/mL insulin pen 12 unit subcut TID Toujeo Max U-300 SoloStar 300 unit/mL (3 mL) insulin pen 40 unit subcut BEDTIME No Action (DME) OneTouch Ultra Blue Test Strip Strip See Rx Instructions .ROUTE .MEDSUPPLY Qty: 150 11RF Rx Instructions: As directed four times a day (DME) FreeStyle Fatmata 2 Sensor Kit See Rx Instructions .ROUTE .MEDSUPPLY Qty: 2 5RF Rx Instructions: As directed every 2 weeks (DME) FreeStyle Fatmata 2 [place] Misc See Rx Instructions .ROUTE .MEDSUPPLY Qty: 1 0RF Rx Instructions: As directed Discharge Orders: Discharge Order (Routine); Ordered 01/02/23 Ordered By: Mecca Kunz Activity on Discharge: As tolerated Stand Alone Forms: Patient Portal Discharge page Other Ambulatory Orders: Complete Blood Count Auto Diff (Routine) Timeframe: 1 Week Facility: [facility] - Location: Laboratory Ordered By: Mecca Kunz Care Plan Goals: see below Health Concerns: anemia, iron deficiency hypoglycemia - low blood sugar hypertension Plan of Treatment: for anemia, you should continue to take PPI (pantoprazole) daily. recommend start taking daily iron supplement. call to schedule follow up with GI repeat EGD in one year. Repeat CBC in one week for blood pressure. stop taking enalopril. stop taking norvasc 10 mg, This has been decreased to 5 mg daily. Call to schedule follow-up appointment with your PCP for close blood pressure monitoring for diabetes, you had multiple episodes of low blood sugar, recommend stop taking the pre-meal insulin and toujeo. you have been changed to 10U of lantus at bedtime. check blood sugars before meals and at bedtime and keep a log of your blood sugars, follow-up with your PCP as soon as possible to review diabetic medications. if blood sugar is greater then 350 call PCP office. Assessment: see discharge summary
[2023-01-02 10:53] LABS: Hematocrit 27.9 % (37.0-47.0); Hemoglobin 8.5 g/dl (12.0-16.0); Mean Corpuscular HGB Conc 30.5 g/dl (31.0-35.0); Mean Corpuscular Volume 85.3 fL (80.0-98.0); Mean Platelet Volume 10.4 fL (9.4-12.3); Platelet Count 246 X10*3/uL (160-400); Red Blood Count 3.27 X10*6/uL (4.20-5.50); Red Cell Distribution Width 17.2 % (11.0-16.0); White Blood Count 6.9 X10*3/uL (4.8-10.8)
[2023-01-02 11:06] LABS: Glucose, Whole Blood 232 mg/dL (60-115)
[2023-01-02 11:25] VITALS: BP 148/56; PULSE 58; RESP 16; TEMP 37; O2SAT 100
--- NOTE | 2023-01-02 11:30 | MHC.CM.PN ---
Addendum entered by Erica Sewell RN 01/02/23 14:14: CM RECEIVED A CALL FROM [facility] WHO REPORT THEY CAN DO A SOC ON THURSDAY 01/04, DTR/HCP CAMRON KAGN AND WILL TRANSPORT PT HOME. Addendum entered by Erica Sewell RN 01/02/23 11:32: IMM DELIVERED TO BEDSIDE 01/02/23. Original Note: PT MEDICALLY CLEARED FOR D/C HOME W/NEW VNA FOR SN, ANTIC PT WILL HAVE [facility] HOWEVER CM AWAITING RESPONSE FROM [facility], PT'S DTR WILL TRNASPORT
[2023-01-02] MEDS: Insulin Lispro 100 UNIT/ML 3 ML VIAL SUBCUT (11:40)
--- NOTE | 2023-01-02 12:07 | P.F2F_ITS ---
Service Date Service Date: 01/02/23 Encounter Date of encounter: 01/02/23 Reasons for Services Signs and symptoms assessed: Needs penitentiary for close monitoring of diabetes and blood pressure due to recent hospitalization and multiple medication adjustments Reason for penitentiary: monitoring of unstable blood sugar, medication management and teach disease management MD Overseeing Care: Lo Donato Homebound: Leaving the home is medically contraindicated at this time without the asist of a device and/or another person due th the listed conditions above and below. Reason homebound: weakness related to hospital stay Certification: Based on the above findings, I certify that this patient is confined to the home and needs intermittent penitentiary care, physical therapy and/or speech therapy, or continues to need occupational therapy. The patient is under my care, and I have initiated the establishment of the plan of care. The patient will be followed by a physician who will periodically review the plan of care. Time Spent With Patient Time: Total time managing care of this patient today ____ minutes.
== END 2023-01-02 15:35 | disposition home health service (06) | DRG 378 ==
LOC: HO.ED 12:55 → HO.EDOVER 14:45 → HO.IMC 19:07
PROVIDERS: Anesthesiology; Internal Medicine; Internal Medicine Gastroenterology; Nurse Practitioner Acute Care; Physician Assistant; Student in an Organized Health Care Education/Training Program; Admitting Provider Physician Assistant; Emergency Provider Emergency Medicine; PCP General Practice; Visit Provider Physician Assistant Medical
PROC: 0DJ08ZZ Inspection of Upper Intestinal Tract, Via Natural or Artificial Opening Endoscopic (ICD-10-PCS; CPT 43235; principal; 2022-12-31 13:00)
DX: K31.811 Angiodysplasia of stomach and duodenum with bleeding (principal); K83.09 Other cholangitis; N17.9 Acute kidney failure, unspecified; I12.9 Hypertensive chronic kidney disease with stage 1 through stage 4 chronic kidney disease, or unspecified chronic kidney disease; N18.30 Chronic kidney disease, stage 3 unspecified; Z66 Do not resuscitate; K74.60 Unspecified cirrhosis of liver; K75.4 Autoimmune hepatitis; E11.22 Type 2 diabetes mellitus with diabetic chronic kidney disease; I85.00 Esophageal varices without bleeding; E78.5 Hyperlipidemia, unspecified; E87.5 Hyperkalemia; D63.1 Anemia in chronic kidney disease; D50.9 Iron deficiency anemia, unspecified; K21.9 Gastro-esophageal reflux disease without esophagitis; Z79.4 Long term (current) use of insulin; Z79.899 Other long term (current) drug therapy
CPT/HCPCS: 36415; 71045; 80048; 80053; 82272; 82728; 82947; 83036; 83540; 83615; 83690; 83880; 84484; 85025; 85027; 85045; 86850; 86900; 86901; 86923; 88305; 88342; 92950; 93005; 93306; 94640; 99285; J1940; J2405; P9016; Q9957

== ENCOUNTER 2022-12-29 14:28 | Outpatient (BNV) | payer OTHER, MEDICAID, SELFPAY | END 2022-12-30 07:00 | PROVIDERS: Admitting Provider Physician Assistant; Emergency Provider Emergency Medicine; PCP General Practice; Visit Provider Internal Medicine Cardiovascular Disease | DX: I21.4 Non-ST elevation (NSTEMI) myocardial infarction (principal) | CPT/HCPCS: 93306 ==

== ENCOUNTER → 2022-12-29 14:28 | Outpatient (BNV) | payer OTHER, MEDICAID, SELFPAY | PROVIDERS: Admitting Provider Physician Assistant; Emergency Provider Emergency Medicine; PCP General Practice; Visit Provider Physician Assistant | DX: D64.9 Anemia, unspecified (principal) | CPT/HCPCS: 99223; 99232; 99239; G0180 ==

== ENCOUNTER → 2022-12-29 14:28 | Outpatient (BNV) | payer OTHER, MEDICAID, SELFPAY | PROVIDERS: Admitting Provider Physician Assistant; Emergency Provider Emergency Medicine; PCP General Practice; Visit Provider Internal Medicine Cardiovascular Disease | DX: I50.9 Heart failure, unspecified (principal); R77.8 Other specified abnormalities of plasma proteins; D64.9 Anemia, unspecified | CPT/HCPCS: 99222; 99232 ==

== ENCOUNTER → 2022-12-29 14:28 | Outpatient (BNV) | payer OTHER, MEDICAID, SELFPAY | PROVIDERS: Admitting Provider Physician Assistant; Emergency Provider Emergency Medicine; PCP General Practice; Visit Provider Internal Medicine Gastroenterology | DX: D50.9 Iron deficiency anemia, unspecified (principal); K21.9 Gastro-esophageal reflux disease without esophagitis; K86.2 Cyst of pancreas; K83.09 Other cholangitis; K31.819 Angiodysplasia of stomach and duodenum without bleeding | CPT/HCPCS: 43239; 43270; 99222 ==

== ENCOUNTER → 2022-12-29 14:28 | Outpatient (BNV) | payer OTHER, MEDICAID, SELFPAY | PROVIDERS: Admitting Provider Physician Assistant; Emergency Provider Emergency Medicine; PCP General Practice; Visit Provider Internal Medicine | DX: E11.22 Type 2 diabetes mellitus with diabetic chronic kidney disease (principal); N18.30 Chronic kidney disease, stage 3 unspecified; D63.1 Anemia in chronic kidney disease | CPT/HCPCS: 99222 ==

== ENCOUNTER 2023-01-21 11:02 | Outpatient (REF) | payer OTHER, MEDICAID, SELFPAY ==
[2023-01-21 13:05] LABS: MANUAL DIFF FLAG NO
[2023-01-21 13:32] LABS: Appearance Urine Clear; Color Urine Yellow; Glucose Urine UA 500 mg/dL (Negative); Leukocyte Esterase Urine Negative (Negative); Nitrite Urine Negative (Negative); PH 5.5 (5.0-9.0); Specific Gravity - Urine 1.015 (1.005-1.025); UMIC TRIGGER UACC YES; Urine Blood Negative (Negative); Urine Ketones Negative (Negative); Urine Protein 300 (3+) mg/dL (Neg-Trace)
[2023-01-21 13:34] LABS: Basophils Absolute Auto 0.1 X10*3/uL (0.0-0.2); Basophils Percent Auto 0.6 % (0-2); Eosinophils Absolute Auto 0.3 X10*3/uL (0.0-0.4); Eosinophils Percent Auto 3.2 % (0-4); Hematocrit 34.7 % (37.0-47.0); Hemoglobin 10.8 g/dl (12.0-16.0); Imm Gran Abs Auto 0.05 X10*3/uL (0.00-0.03); Imm Gran Pct Auto 0.6 % (0.0-0.4); Lymphocytes Absolute Auto 1.9 X10*3/uL (1.2-4.9); Lymphocytes Percent Auto 21.9 % (20-40); Mean Corpuscular HGB Conc 31.1 g/dl (31.0-35.0); Mean Corpuscular Hemoglobin 26.3 pg (27.0-33.0); Mean Corpuscular Volume 84.4 fL (80.0-98.0); Mean Platelet Volume 11.3 fL (9.4-12.3); Monocytes Absolute Auto 0.6 X10*3/uL (0.1-1.2); Monocytes Percent Auto 7.1 % (2-11); Neutrophils Absolute Auto 5.9 x10*3/uL (2.0-8.3); Neutrophils Percent Auto 66.6 % (45-73); Platelet Count 367 X10*3/uL (160-400); Red Blood Count 4.11 X10*6/uL (4.20-5.50); Red Cell Distribution Width 19.7 % (11.0-16.0); White Blood Count 8.9 X10*3/uL (4.8-10.8)
[2023-01-21 13:36] LABS: Bacteria Urine None Seen (None Seen); RBC Urine 0-2 /HPF (0-2); Squamous Epithelial Cell Urine 0-2 /HPF (0-2); WBC Urine 0-5 /HPF (0-5)
[2023-01-21 13:45] LABS: Anion Gap 13 (12-20); Blood Urea Nitrogen 45 mg/dL (9-16); Carbon Dioxide 20 mmol/L (22-29); Chloride 111 mmol/L (96-108); Estimated Glomerular Filt Rate 26; Glucose Random 251 mg/dL (60-115); Potassium 4.7 mmol/L (3.3-5.1); Sodium 139 mmol/L (135-145)
== END 2023-01-21 11:03 | disposition home or self-care (01) ==
LOC: HO.HHCL 11:02
PROVIDERS: Visit Provider Internal Medicine
DX: D50.0 Iron deficiency anemia secondary to blood loss (chronic) (principal); N30.01 Acute cystitis with hematuria
CPT/HCPCS: 36415; 80048; 81001; 85025

== ENCOUNTER 2023-03-19 12:55 | Outpatient (AMB) | payer OTHER, MEDICAID, SELFPAY ==
[2023-03-19 12:58] VITALS: BP 149/67; PULSE 92; BMI 33.5
--- NOTE | 2023-03-19 12:58 | MHC.OFFVIS ---
Intake Vital Signs 03/19/23 12:58 Height 4 ft 9 in Weight 154 lb 12.232 oz BMI 33.5 BP 149/67 H Blood Pressure Location Rt brachial Position Sitting Pulse 92 Intake Visit Reasons: follow up Intake Note: Patient presents to in office visit today in follow up of epigastric pain. Patient states I have gastritis and c/o epigastric pain. Patient is requesting something for the pain and heartburn. She reports onset of symptoms about a month ago. She states the heartburn is killing me, the same morning and night. Supervisor [employer] Required: Yes Accompanied by: Grand Child Allergies No Known Allergies [No Known Allergies*] Allergy (Verified 03/19/23 13:03) Medication List - Last Reconciled 03/19/23 by Malik Shepard MD amlodipine 5 mg See Protocol PO DAILY 30 days aspirin (Adult Aspirin Regimen) 81 mg PO DAILY blood sugar diagnostic As directed four times a day cetirizine (All Day Allergy (cetirizine)) 10 mg PO DAILY PRN cholecalciferol (vitamin D3) 2,000 units PO DAILY ferrous sulfate 324 mg PO DAILY 30 days flash glucose scanning reader ([employer] Fatmata 2 [place]) As directed flash glucose sensor ([employer]Style Fatmata 2 Sensor kit) As directed every 2 weeks insulin glargine (Lantus Solostar U-100 Insulin) 10 units (0.1 mL) subcut QPM linaclotide (Linzess) 145 mcg PO DAILY PRN metoprolol tartrate 12.5 mg PO DAILY pantoprazole 40 mg PO DAILY quetiapine 25 mg PO Q12H PRN trazodone 100 mg PO BEDTIME ursodiol 500 mg PO BID 90 days HPI follow up HPI Details GI CLINIC VISIT FOR THIS 72-YEAR-OLD URDU-SPEAKING FEMALE FOR FOLLOW-UP OF LEFT UPPER QUADRANT PAIN, ELEVATED LFTS AND SUSPICION OF CIRRHOSIS ON CT SCAN - MILDLY NODULAR HEPATIC CONTOUR SUSPICIOUS FOR CIRRHOSIS, AND WEIGHT LOSS. Pt was hospitalized at [facility] in April 2021.? EGD showed portal hypertensive gastropathy and gastric biopsies were negative for Helicobacter pylori.? A tubular adenoma was removed during colonoscopy. ?CHRONIC ILLNESSES:?HTN, Vitamin D def, DM, Constipation, Anemia ?LABS IN [facility]:?10/26/19 REVIEWED H & H OF 7.2 & 23.1, PLT 311, HAPTOGLOBIN NORMAL AT 143, ? IRON STUDIES CONSISTENT WITH IRON DEFICIENCY ANEMIA WITH FERRITIN OF 7, NORMAL VITAMIN B12 AND FOLATE. ? ELEVATED IgG 2759, IgG1 1963 WITH NORMAL Igg4. ? CHRISTOPHER POSITIVE IN A TITRE OF 1:160, Pattern Cytoplasmic, Reticular/AMA - seen in PBC and systemic sclerosis. ? ASMA positive at 44, AMA negative ? TTG IgG positive at 11 with normal IgA. ? Labs from [facility] were reviewed: ? 07/22/19 WBC 11.5, H&H 9.2 and 30.4, platelets 403 ? Sodium 130, potassium 5.8, bicarbonate 19, glucose 584, BUN 27, creatinine 1.8 ? LFTs revealed total bilirubin 1.7/direct bilirubin 1.1, AST 399, ALT 232, alkaline phosphatase 1436 ? Hepatitis-B surface antigen was negative, hepatitis B core antibody IgM and hepatitis C antibody were negative. Hepatitis a antibody IgM was negative ? 07/07/19 LFTs showed total bilirubin of 1.1, AST 585, ALT 2/1 and alkaline phosphatase 451 ? 05/05/19 - H/H- 12.5/38.5, platelets 230, BUN 22, creatinine 1.41 ? Bilirubin 1.5, AST 277, ALT 181, alkaline phosphatase 679, albumin 3.2 ?IMAGING STUDIES: 07/11/19 MRI/MRCP at [facility] showed: ? Slightly lobulated hepatic contour suggestive of cirrhosis, trace perihepatic and portal hepatic fluid, cholecystectomy without biliary obstruction or choledocholithiasis, atrophic right kidney with cortical?scarring and cyst. ? Small 3 x 8 mm cystic lesion at the pancreatic head likely a cyst side branch IPMN - 2 years for follow-up was recommended with pancreas protocol MRI to assess for stability. ? 07/2018- US abd- LUQ pain- IMPRESSION: ? Mild manifestations of hepatic steatosis. Status post cholecystectomy. ? Slight increased renal cortical echogenicity bilaterally. Neither ? hydronephrosis nor nephrolithiasis. Benign-appearing right renal cysts. ?ENDOSCOPIC STUDIES: Medical Records were obtained from [facility]: ? 10/04/19 EGD was performed by Dr Ahmadi: Normal ? 10/05/[address] Sky and showed: ? A 5 mm adenomatous polyp was removed from the cecum cold snare. ? Two 3-5 mm adenomatous polyps were removed from the descending colon by cold snare. ? Small nonbleeding internal hemorrhoids were noted. ? No source found for iron deficiency anemia. ? Patient was advised further evaluation with a capsule endoscopy. ? Polyps were removed with a snare. 2/3 were tubulat adenomas on bx. ?11/28/19 CAPSULE ENDOSCOPY AT [facility] SHOWED ? GEJ with mild esophagitis, stomach with patchy erythema and granular tissue with few erosions, appearance consistent with chronic gastritis.? Duodenum entered at 20 minutes 8 seconds, nonbleeding AVM noted.? Cecum reached at 03:00 hours 21 minutes.? No active bleeding seen during the studies. Pt continues to complain of her stomach hurting and has some fatigue. Pt was advised to have repeat CBC and LFTs.? If she remains anemic, I will schedule an EGD for ablation of duodenal AVM with APC. Erica! Please fax labs to [facility] registration desk. Schedule an in person Office visit in 2 weeks, thanks ?TODAY'S VISIT: Patient states I have gastritis and c/o epigastric pain. Patient is requesting something for the pain and heartburn. She reports onset of symptoms about a month ago. She states the heartburn is killing me, the same morning and night. Pt is accompanied by her grandson who interpreted for the pt. [facility] Special Deputy Sheriff, Mila Complains of generalized abdominal pain for the past week Abdominal pain is constant and 9/10 in intensity. Complains of nausea and vomiting Vomitus is green in color and contains some food. Not able to eat or drink. Had coffee, water and eggs fro breakfast and did not vomit after. Complains of constipation and diarrhea Notes some dark blood in the stool Sweating when she sits on the toilet Admits to loosing weight. Unsure if she had similar pain in the past Pt reports she was seen at [facility] on 03/15/23 - unsure what was done PAST VISIT: Pt denies vomiting and going to the bathroom twice a day Pt complains of lower abdominal and constipation. Can have a BM 3-4 times a day to none. Intermittent hard stools with straining. Takes lactulose for constipation - 2 small cups as needed for constipation. ? ? ? Pt states i think i have constipation, it has been three days without going to the rest room. ? ? ? On the left side of my stomach I have pain. ? ? ? My whole body hurts ? ? ? Doing fair.? Denies fever. ? ? ? Pt was seen at [facility] ED last weekend and LFTs were elevated - TB 2.6, ALT 161, AST 350, AP 1000. ? ? ? Further evaluation with US guided liver bx was discussed with the patient and her daughter. ? Abdominal pain is so so ? ? ? Had a BM yesterday.? Has a BM every 1-2 days - can have hard stools with straining. ? ? ? Intermittent gas and bloating. ? Continues to have left sided abdominal pain. ? Has been having small BMs with incomplete evacuation. ? Bought some pills from [employer] for constipation. ? Advised to increase the dose of Linzess to 290 once daily from 145 during her last visit. ? Pt is doing good - not itching any more ? Intermittent dizziness - ? related to her eye glasses ? Has a visiting nurse who supervises her medication. ? Patient and daughter are unsure if she has been taking the Brilinta. ? Continues to have constant LUQ abdominal pain. ? Complains of chronic constipation. ? Pain improves a little after she is able to have a BM. ? She has been taking Senna 3 tablets every day and has not been helping. ? Was using Miralax in the past. ? Has been taking Vance seeds. ? Complains of increased gas and burping. ? Had a negative colonoscopy 6 years ago in [place]. ? Had an EGD in [place] 8 yrs agp. ? Hospitalized 2 weeks ago and had an EGD and Colon 2 weeks ago at [facility]. ? She had cauetrization during colonoscopy. ? She denies recent black stools or rectal bleeding. ? Notes weakness and dizziness. ? Denies heavy ETOH use or smoking. ? Taking Prilosec once a week for acid reflux ? Advised to stop Ranitidine and take Pepcid instead. ? Hospitalized at [facility] for 5 days a month ago and she was informed she had an intra-abdominal mass. ? Pt was advised to go to [facility] lab for lab tests within the next week. ? Pt states she had some lab tests done at [facility] yesterday. ? Pt was scheduled for an EGD and Colonoscopy and unable to do the procedures. ? Denies ongoing diarrhea - no BM for the past 3 days. ? Had diarrhea x 4- 7 days after she took Senna and LUQ pain has improved - it comes and goes. ? Notes some dizzines which she attributes to her medications. ? She was prescribed Senna 2 tab twice a day for constipation - advised to stop until diarrhea subsides. ? Then resume 1 tablet twice a week. ? Unable to drink the prep due to nausea. ? Pain can get worse after she eats and unable to identify any precipitating foods. ? Pain improves sometimes after a BM and sometimes. ? Pt is very constipated and has a BM every 3-4 days and sometimes after a week. ? Taking medications for constipation - fibre 3 times a day - advised to decrease to once a day ? Tried Miralax in the past and it was not helpful ? Denies heartburn or dysphagia ? Pt has a lot of nausea without vomiting. ? One episode of rectal bleeding associated with straining. ? Decreased appetite with 50% decrease in her appetite. ? Weight loss of 20 lbs (from 180 to 150 lbs) ? Denies past history of liver disease. ? Had a negative colonoscopy 6 years ago in [place]. ? Denies past problems with anesthesia, loud snoring or sleep apnea. ? Denies major pulmonary prooblems. ? Denies skin rash, itching, joint pains or eye problems ? Denies known FH of Liver problems, colon polyps or colon cancer. ? Was taking advil and stopped taking it 6 months ago. ? DM x > 20 yrs ? GB surgery > 20 yrs ago ?PAST GI HISTORY BY REVIEW OF MEDICAL RECORDS: ? Medical Records were obtained from [facility]: ? 10/04/19 EGD was performed by Dr Ahmadi: Normal ? 10/05/[address] Sky and showed: ? A 5 mm adenomatous polyp was removed from the cecum cold snare. ? Two 3-5 mm adenomatous polyps were removed from the descending colon by cold snare. ? Small nonbleeding internal hemorrhoids were noted. ? No source found for iron deficiency anemia. ? Patient was advised further evaluation with a capsule endoscopy - per patient's daughter, patient has not been contacted to schedule the procedure yet. ? Medical records from Cardiology Clinic at [facility] were reviewed and scanned into [employer]. ? 07/21 patient presented to [facility] with dyspnea nausea and vomiting. She was found to have a non ST elevation [place]. She underwent PCI to the LAD with a drug eluting stent and discharged on aspirin and Brilinta. ? Patient was seen in Cardiology Clinic on 07/30/2019 with chronic discomfort anorexia and progressive serve orthostasis and fatigue. She was noted to have a documented weight loss of 3.18 kg over the past several weeks. Daughter reported weight loss of greater than 20 lb over the past several months. ? 07/11/19 MRI/MRCP showed new: ? Slightly lobulated hepatic contour suggestive of cirrhosis, trace perihepatic and portal hepatic fluid, cholecystectomy without biliary obstruction or choledocholithiasis, atrophic right kidney with cortical scarring and cyst. Small cystic lesion at the pancreatic head likely a cyst side branch IPMN - 2 years for follow-up was recommended with pancreas protocol MRI to assess for?stability [facility] Medical History (Updated 01/10/23 @ 00:03 by Background Daemon) Autoimmune cholangitis CVA (cerebral vascular accident) Normocytic anemia CKD (chronic kidney disease) Fecal occult blood test positive Anemia Pancreatic cyst GERD (gastroesophageal reflux disease) Iron deficiency anemia Pancreatitis Depression Hypertriglyceridemia Vitamin D deficiency Constipated Type 2 diabetes mellitus with hyperglycemia Type 2 diabetes mellitus with chronic kidney disease Essential hypertension Hyperlipidemia LDL goal <100 Obesity (BMI 30-39.9) Diabetes mellitus with hyperglycemia Surgical History (Updated 03/06/23 @ 15:50 by Jennifer Quinteros) History of esophagogastroduodenoscopy (EGD) Hx of heart bypass surgery History of appendectomy Hx of colonoscopy Hx of cholecystectomy Family History Father No problems noted. Mother Diabetes mellitus CVD (cardiovascular disease) Sister Cancer Son Diabetes mellitus Social History Household Members: Other Household Members Other:: daughter Housing: Apartment Housing Other:: STUDENT SERVICES COUNSELOR services Do you presently have visiting nurse or other home services: Yes (STUDENT SERVICES COUNSELOR) Alcohol intake: never Patient Tobacco Use Status: Never used Tobacco Advance Directives Date on File: 02/06/21 service: No Current occupational status: disabled Review of Systems Const All systems reviewed & are unremarkable except as noted in HPI and below Physical Exam Vital Signs: Last Vital Signs Pulse 92 03/19/23 12:58 BP 149/67 H 03/19/23 12:58 BMI result Body Mass Index 33.5 Const General: ill appearing Nutritional Appearance: obese Orientation/consciousness: patient oriented x3 Limitations: language barrier HEENT Head: Yes normal to inspection Ears: hearing grossly normal bilaterally Eyes Sclerae: sclerae normal Pupils: Equal, round and reactive pupils present Neck Neck: Yes normal visual inspection Chest Chest palpation & inspection: normal inspection of the chest Resp Effort & Inspection: normal respiratory effort Auscultation: clear to auscultation bilaterally Cardio Palpation: normal PMI Rate: regular rate Rhythm: regular rhythm Heart sounds: S1 normal heart sound present, S2 normal heart sound present and no murmurs GI Palpation (GI): Soft to palpation, Tenderness to palpation present (GI) (Mild epigastric tenderness) and No hepatosplenomegaly present Auscultation: normal bowel sounds Rectal Exam - Female: deferred Skin General skin exam: no rashes or lesions noted Neuro General: patient oriented x3, gait normal and moves all extremities Cranial nerves: Yes Equal, round and reactive pupils present Psych Appearance: grossly normal Mental Status: mental status grossly normal Assessment & Plan Assessment & Plan (1) Elevated LFTs: Code(s): R79.89 - Other specified abnormal findings of blood chemistry (2) Chronic constipation: Code(s): K59.09 - Other constipation (3) LUQ abdominal pain: Code(s): R10.12 - Left upper quadrant pain Plan 72 year old Panamanian-speaking female with HTN, Vitamin D def, DM, Constipation, Anemia followed in GI for left-sided abdominal pain and elevated LFTs in a cholestatic pattern, decreased appetite and weight loss. Hepatitis A, B and C serologies were negative. MRI/MRCP showed post cholecystectomy status without biliary obstruction or dilation. Lab evaluation showed elevated IgG, positive CHRISTOPHER in a titer of 1 in 160 in cytoplasmic reticular pattern common in PBC, systemic sclerosis and rare in other systemic autoimmune rheumatic disease. Mitochondrial antibody was negative.? IgG 4 levels were normal.? ASMA was elevated Of note none of the medicines she is taking at present is associated with cholestatic liver disease. She was taking ibuprofen and acetaminophen in the past which she has discontinued. Other possibilities include infiltrative liver disease like sarcoidosis, granulomatous disease, amyloidosis. Metastatic cancer is less likely given negative imaging studies. Since pt's LFTs continue to worsen, she will need a liver biopsy for further evaluation. Left upper quadrant pain appears to be related to chronic constipation and has improved since patient started taking senna. Patient had an EGD and Colon on 10/03 and 10/05/19 at [facility]. EGD was normal. Two <10 mm adenomatous polyps were removed. No source was detected for iron deficiency anemia. Pt was scheduled for a Liver bx by the GI RN multiple times and was a no show - and Pt was discharged from the GI clinic Pt had a liver bx done at [facility] and diagnosed with autoimmune cholangitis - she was started on Ursodiol on 06/19/22 FU LFts showed improvement in Alk P 03/19/23 Pt seen with generalized abdominal pain, nausea and vomiting for the past week Complains of constipation and diarrhea Pt reports she was seen at [facility] ER on 03/15/23 - had a CT scan and unsure what other tests were performed - records were requested Pt transferred to [facility] ED via wheel chair by Jennifer (GI GUME) for further evaluation and management Coding Level of Care Code Est Pt Level 4 (47563) Diagnoses Elevated LFTs R79.89 Chronic constipation K59.09 LUQ abdominal pain R10.12 Time Spent (min) 22
== END 2023-03-19 14:40 | disposition home or self-care (01) ==
PROVIDERS: PCP General Practice; Visit Provider Internal Medicine Gastroenterology
DX: R79.89 Other specified abnormal findings of blood chemistry (principal); K59.09 Other constipation; R10.12 Left upper quadrant pain
CPT/HCPCS: 99214

== ENCOUNTER → 2023-03-19 12:55 | Outpatient (BNVA) | payer OTHER, MEDICAID, SELFPAY | PROVIDERS: PCP General Practice; Visit Provider Internal Medicine Gastroenterology ==

== ENCOUNTER 2023-03-19 14:15 | Inpatient (IN) | payer OTHER, MEDICAID, SELFPAY ==
--- NOTE | ~2023-03-19 | XR_ITS ---
EXAMINATION: PORTABLE CHEST 1 VIEW CLINICAL INFORMATION: r/o pna. COMPARISON: 12/29/2022. TECHNIQUE: Portable frontal view of the chest was obtained. FINDINGS: The lungs are hypoexpanded with minimal basilar markings more likely due to atelectasis. No focal infiltrate, effusion, edema, or pneumothorax. Cardiac and mediastinal silhouettes are within normal limits for size with vascular calcification in aorta. No acute bony abnormality seen. XR/XR chest 1V IMPRESSION: Hypoexpanded with basilar markings more likely due to atelectasis.
--- NOTE | ~2023-03-19 | CT_ITS ---
EXAMINATION: CT ABDOMEN AND PELVIS WITHOUT CONTRAST CLINICAL INFORMATION: Abdominal pain. Vaginal bleeding. COMPARISON: None available. TECHNIQUE: Multidetector volumetric imaging was performed from the superior aspect of the liver through the pubic symphysis. Sagittal and coronal reformatted images were obtained on the technologist's workstation. This CT examination was performed using dose optimization techniques as appropriate, variously including the following: *Automated exposure control *Adjustment of mA and/or kV according to patient size (this includes techniques or standardized protocols for targeted exams where dose is matched to indication/reason for exam; i.e. extremities or head) *Use of iterative reconstruction technique DLP: 576 mGy-cm FINDINGS: LUNG BASES: The visualized lung bases are unremarkable. LIVER, GALLBLADDER, AND BILIARY TREE: The liver is irregular in contour. No focal liver lesions are seen. There is no intrahepatic biliary duct dilatation. There has been a prior cholecystectomy. PANCREAS: Unremarkable. SPLEEN: Unremarkable. ADRENAL GLANDS: Unremarkable. KIDNEYS AND URETERS: The kidneys are lobular. There is scattered bilateral renal hypodensities measuring up to 1.6 cm likely cysts. Bilateral renal vascular calcifications are noted. There is no hydronephrosis. BLADDER: The bladder is mildly distended. GASTROINTESTINAL TRACT: There is retained stool throughout the colon. The appendix is not confidently seen as a separate structure. ABDOMINAL WALL: No significant hernia is appreciated. LYMPH NODES: Normal. VASCULAR: There is atherosclerotic plaque throughout the abdominal aorta and proximal branches. PELVIC VISCERA: Unremarkable. OSSEOUS STRUCTURES: No significant compression fractures of T12 and L4 with superior endplate retropulsion and moderate spinal canal narrowing at L3-L4 and mild spinal canal and T11-T12. CT/CT abdomen pelvis wo IV con IMPRESSION: Irregular liver contour suggests hepatocellular disease/cirrhosis. Retained stool throughout the colon. The appendix is not confidently seen as a separate structure. Distended urinary bladder. T12 and L2 compression fractures with spinal canal narrowing. Fleischner guidelines were followed.
--- NOTE | ~2023-03-19 | CT_ITS ---
EXAMINATION: CT HEAD WITHOUT CONTRAST CLINICAL INFORMATION: Altered mental status. COMPARISON: 04/05/2021 TECHNIQUE: Contiguous axial imaging was performed from the skull base to vertex without intravenous administration of contrast. This CT examination was performed using dose optimization techniques as appropriate, variously including the following: *Automated exposure control *Adjustment of mA and/or kV according to patient size (this includes techniques or standardized protocols for targeted exams where dose is matched to indication/reason for exam; i.e. extremities or head) *Use of iterative reconstruction technique DLP: 642 mGy-cm FINDINGS: There is cerebral volume loss with prominence of the lateral, third and fourth ventricles. The cortical sulci are widened appropriately. The fourth ventricle and basal cisterns are normally outlined. There is an old left occipital infarct. There is also an old right parietal infarct. There is mild to moderate bilateral periventricular and central white matter diminished attenuation. There is no acute territorial defect, hemorrhage or midline shift. The extra-axial spaces are unremarkable. Calvarium: Intact. Maxillofacial sinuses and mastoids: Clear as visualized. CT/CT head/brain wo IV con IMPRESSION: Cerebral volume loss and mild to moderate bilateral periventricular and central white matter diminished attenuation which is nonspecific but likely to represent microvascular disease. 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 There is no acute intracranial abnormality.
[2023-03-19 14:25] VITALS: BP 135/75; PULSE 93; RESP 18; TEMP 36.3; O2SAT 100; BMI 33.0
--- NOTE | 2023-03-19 14:29 | ED.GENADULT ---
HPI - General Adult General Chief complaint: Abdominal Pain Stated complaint: Abdominal Pain Nausea Time Seen by Provider: 03/19/23 14:29 Source: patient Mode of arrival: ambulatory Limitations: no limitations History of Present Illness HPI narrative: Patient comes to the emergency room accompanied by her grandson. Patient just laughed the office from Dr. Shepard. Patient has been complaining of nausea and vomiting for 5 days. Patient also mentioned that she has been having vaginal bleeding for about 5 days. Related Data Home Medications Medication Instructions Recorded Confirmed aspirin 81 mg tablet,delayed 81 mg PO DAILY 02/27/20 03/20/23 release (Adult Aspirin Regimen) cholecalciferol (vitamin D3) 50 2,000 unit PO DAILY 02/27/20 03/20/23 mcg (2,000 unit) capsule metoprolol tartrate 25 mg tablet 12.5 mg PO DAILY 02/27/20 03/20/23 cetirizine 10 mg capsule (All Day 10 mg PO DAILY PRN Allergic 11/16/20 03/20/23 Allergy (cetirizine)) Symptoms linaclotide 145 mcg capsule 145 mcg PO DAILY PRN GI UPSET 12/29/22 03/20/23 (Linzess) pantoprazole 40 mg tablet,delayed 40 mg PO DAILY 12/29/22 03/20/23 release quetiapine 25 mg tablet 25 mg PO Q12H PRN anxiety 12/29/22 03/20/23 trazodone 100 mg tablet 100 mg PO BEDTIME 12/29/22 03/20/23 acetaminophen 500 mg tablet 500 mg PO Q6H PRN mild pain 03/20/23 03/20/23 insulin glargine 100 unit/mL (3 44 unit subcut BEDTIME 03/20/23 03/20/23 mL) subcutaneous pen (Lantus Solostar U-100 Insulin) insulin lispro 100 unit/mL 12 unit subcut TID 03/20/23 03/20/23 subcutaneous pen multivitamin with folic acid 400 1 tab PO QAM 03/20/23 03/20/23 mcg tablet (Daily-Katie (with folic acid)) Previous Rx's Medication Instructions Recorded flash glucose scanning reader #1 ea 11/16/20 (FreeStyle Fatmata 2 [place]) blood sugar diagnostic #150 ea 04/30/21 flash glucose sensor (FreeStyle #2 ea 12/13/21 Fatmata 2 Sensor kit) ursodiol 500 mg tablet 500 mg PO BID 90 days #180 tabs 01/23/23 Allergies Allergy/AdvReac Type Severity Reaction Status Date / Time No Known Allergies Allergy Verified 03/19/23 13:03 [No Known Allergies*] Review of Systems Review of Systems: Constitutional : No Weight loss, No Fever, No Chills, No Night Sweats, complaining of fatigue and generalized malaise ENT/Mouth : No Hearing loss, No Ear Pain, No Nasal Congestion, No Sinus Pain, No Hoarseness, No sore throat, No Rhinorrhea, No Swallowing Difficulty Eyes: No Eye Pain, No Swelling, No Redness, No Foreign Body, No Discharge, No Vision Changes Cardiovascular : No Chest Pain, No SOB, No Dyspnea on Exertion, No Orthopnea, No Edema, No Palpitations Respiratory : No Cough, No Sputum, No Wheezing, No Smoke Exposure, No Dyspnea Gastrointestinal : Complaining of nausea vomiting and diffuse abdominal pain Genitourinary : Complaining of vaginal bleeding. No Dysuria, No Urinary Frequency, No Hematuria, No Urinary Incontinence, No Urgency, No Flank Pain, No Urinary Flow Changes, No Hesitancy Musculoskeletal : No joint pain, No Myalgias, No Joint Swelling Skin : No Skin Lesions, No rash Neuro : No Weakness, No Numbness, No Paresthesias, No Loss of Consciousness, No Dizziness, No Headache Psych : No Anxiety/Panic, No Depression, No SI/HI/AH/VH, No Social Issues, Heme/Lymph: No Bruising, No Bleeding,No Lymphadenopathy Endocrine : No Polyuria, No Polydipsia, No Temperature Intolerance PMFSH Past Medical History Medical History (Updated 03/19/23 @ 22:53 by Katja Morris MD) Autoimmune cholangitis CVA (cerebral vascular accident) Normocytic anemia CKD (chronic kidney disease) Fecal occult blood test positive Anemia Pancreatic cyst GERD (gastroesophageal reflux disease) Iron deficiency anemia Pancreatitis Depression Hypertriglyceridemia Vitamin D deficiency Constipated Type 2 diabetes mellitus with hyperglycemia Type 2 diabetes mellitus with chronic kidney disease Essential hypertension Hyperlipidemia LDL goal <100 Obesity (BMI 30-39.9) Diabetes mellitus with hyperglycemia Surgical History (Updated 03/06/23 @ 15:50 by Jennifer Quinteros) History of esophagogastroduodenoscopy (EGD) Hx of heart bypass surgery History of appendectomy Hx of colonoscopy Hx of cholecystectomy Family History Family History Father No problems noted. Mother Diabetes mellitus CVD (cardiovascular disease) Sister Cancer Son Diabetes mellitus Social History Social History Household Members: Other Household Members Other:: daughter Housing: Apartment Housing Other:: [employer] services Do you presently have visiting nurse or other home services: Yes ([employer]) Alcohol intake: never Patient Tobacco Use Status: Never used Tobacco Advance Directives: Yes Advance Directives Information Provided: No Advance Directives on File: No Advance Directives Date on File: 02/06/21 service: No Current occupational status: disabled Physical Exam ED Vital Signs: Vital Signs - 24 hr 03/19/23 14:25 03/19/23 21:57 03/20/23 02:01 Temperature 97.4 F 97.7 F Pulse Rate 93 100 109 H Respiratory Rate 18 20 20 Blood Pressure 135/75 167/81 H 179/79 H Pulse Oximetry 100 100 98 Oxygen Delivery Method Room Air Room Air Room Air 03/20/23 02:57 03/20/23 05:26 03/20/23 07:32 Temperature 97.9 F 97.7 F Pulse Rate 113 H 119 H 121 H Respiratory Rate 17 26 H 20 Blood Pressure 198/94 H 200/97 H 170/70 H Pulse Oximetry 99 99 98 Oxygen Delivery Method Room Air Room Air 03/20/23 09:48 03/20/23 10:10 03/20/23 11:21 Temperature Pulse Rate 121 H 121 H 120 H Respiratory Rate 26 H 17 23 H Blood Pressure 186/90 H 201/95 H 207/95 H Pulse Oximetry 99 99 99 Oxygen Delivery Method Room Air Room Air Room Air 03/20/23 11:50 03/20/23 12:30 Temperature Pulse Rate 96 95 Respiratory Rate 25 H 12 Blood Pressure 122/61 123/50 L Pulse Oximetry 99 Oxygen Delivery Method Room Air BMI result Body Mass Index 33.0 Const Other: Appearance: Alert. Oriented X3. Ill-appearing Eyes: Pupils equal, round and reactive to light. ENT: Pharynx normal. Neck: Normal inspection. Neck supple. No lymph nodes noted. No crepitus CVS: Normal heart rate and rhythm. Pulses normal. Normal S1 and S2 Respiratory: No respiratory distress. Breath sounds normal. No Wheezing. No rales Abdomen: Soft, does not seem to be tender on palpation, No rigidity. No distention. : Patient refused cervical exam Skin: Skin warm and dry. Normal skin color. Normal skin turgor. Extremities: No lower extremity edema. No Lacerations. No Rash Neuro: Oriented X 3. No motor deficit. No sensory deficit. Moving all extremities. No slurred speech. CN 2 through 12 grossly intact Psych: calm, cooperative, normal affect Course Course Course Narrative: This is an RME: Additional HPI, ROS, PE not included below will be deferred to primary provider. 72 year old female presents w/ abd pain and vaginal bleeding X 5 days. A/c nausea and vomiting. On asa Had a CT done done at [facility] on the . Patient was seen there for dizziness and abd pain. Grandson here Plan- labs, urine. Reevaluation(s) Reevaluation #1: HTN - responded sig to IV labetalol mentating well will monitor IV insulin drip started after repeat BMP and bolus of insulin - will consult ICU I was notified of care after pending admission patient has been somewhat difficult after initially refusing care - we cannot reach her family 1238pm. ICU to admit patient did lose IV line from overnight per RN attempted IV US I did miss - patient pulled back she is frustrated will give her time to repeat Medications Administered Generic Name Dose Route Start Last Admin Trade Name Freq PRN Reason Stop Dose Admin Insulin Human Regular 100 unit in 100 mls @ 6 mls/hr 03/20/23 12:45 03/20/23 13:25 Myxredlin IVCONT 6 unit/hr .[id number] YOVANA 6 mls/hr Administration Protocol 6 UNIT/HR Discontinued Medications Generic Name Dose Route Start Last Admin Trade Name Freq PRN Reason Stop Dose Admin Acetaminophen 650 mg 03/20/23 11:08 03/20/23 11:29 Acetaminophen 325 Mg Tablet PO 03/20/23 11:09 650 mg ONCE ONE Administration Sodium Chloride 2,000 mls @ 999 mls/hr 03/19/23 21:14 03/19/23 23:57 Ns IVCONT 03/19/23 23:14 Infused .Q2H1M ONE Infusion Lactated Ringer's 1,000 mls @ 999 mls/hr 03/20/23 01:45 03/20/23 03:15 Lr IV 03/20/23 02:45 Infused .Q1H1M YOVANA Infusion Lactated Ringer's 1,000 mls @ 250 mls/hr 03/20/23 09:15 03/20/23 09:50 Lr IV 03/20/23 13:14 250 mls/hr .Q4H YOVANA Administration Insulin Human Regular 10 unit 03/19/23 21:14 03/19/23 22:12 Insulin Regular, Human 100 Unit/Ml 3 Ml Vial IVPUSH 03/19/23 21:15 10 unit ONCE ONE Administration Insulin Human Regular 5 unit 03/19/23 23:54 03/20/23 00:02 Insulin Regular, Human 100 Unit/Ml 3 Ml Vial IVPUSH 03/19/23 23:55 5 unit ONCE ONE Administration Insulin Human Regular 10 unit 03/20/23 01:43 03/20/23 02:14 Insulin Regular, Human 100 Unit/Ml 3 Ml Vial IVPUSH 03/20/23 01:44 10 unit ONCE ONE Administration Insulin Human Regular 10 unit 03/20/23 10:46 03/20/23 11:16 Insulin Regular, Human 100 Unit/Ml 3 Ml Vial IVPUSH 03/20/23 10:47 10 unit ONCE ONE Administration Labetalol HCl 10 mg 03/20/23 10:46 03/20/23 11:17 Labetalol Hcl 100 Mg/20 Ml Vial IVPUSH 03/20/23 10:47 10 mg ONCE ONE Administration Labetalol HCl 10 mg 03/20/23 11:34 03/20/23 11:51 Labetalol Hcl 100 Mg/20 Ml Vial IVPUSH 03/20/23 11:35 Not Given ONCE ONE Ondansetron HCl 4 mg 03/19/23 21:02 03/19/23 21:05 Ondansetron Odt 4 Mg Tab.Rapdis TRANSLINGU 03/19/23 21:03 4 mg ONCE ONE Administration Prochlorperazine Edisylate 10 mg 03/19/23 21:21 03/19/23 22:12 Prochlorperazine Edisylate 10 Mg/2 Ml Vial IVPUSH 03/19/23 21:22 10 mg ONCE ONE Administration Medical Decision Making Medical Decision Making MDM Narrative: -patient has a glucose level of greater than 500, patient giving IV fluids, 10 units of insulin. Patient's glucose increased from 483 to 556. Patient getting an additional 10 units of insulin. -my interpretation of labs, patient's hematology at baseline. Patient's corrected sodium is within normal limits. Patient's creatinine is bumped from baseline of 1.88. Today creatinine 2.13. Patient receiving IV fluids. -patient's beta hydroxybutyrate is bumped at 3.37. Patient's anion gap is closed. -CT scan of the abdomen pending. -patient absolutely refused a cervical exam. Patient states that she will follow-up with her primary care physician. At this time, she does not want to address the vaginal bleeding issue. I discussed with the patient that vaginal bleeding at her age could indicate malignancy. However, patient is still refusing. Patient is to follow-up with her primary care physician and Ob [facility]. -patient's COVID and influenza tests pending -CT scan of the abdomen pending -sign-out given to Dr. Cantu 08:[address] scan of the head and CT scan of the abdomen pelvis did not reveal any specific cause for the patient's nausea, vomiting, elevated glucose. Labs did reveal increased creatinine above baseline, troponin was detectable but not elevated at 7.6. I will repeat the troponin. I will also had a CK to internal labs. Patient glucose remains high despite receiving IV fluid and IV regular insulin. Patient will be given 3rd L of LR at 250 mL per hour. I will discuss admission with the covering hospitalist. Differential Diagnosis Differential Diagnoses: The differential diagnosis associated with the presentation includes (DKA, hyperglycemia, abdominal obstruction, dehydration) Admission/Observation Consideration of admission/observation: Escalation of care including admission/observation considered (Patient will likely need to be admitted.) Lab Data MDM Lab Attestation statement: I reviewed the patient's lab results. 03/19/23 15:31 03/20/23 12:04 Labs: Lab Results 03/19/23 03/19/23 03/19/23 Range/Units 15:31 19:29 21:28 WBC 8.8 (4.8-10.8) X10*3/uL RBC 4.14 L (4.20-5.50) X10*6/uL Hgb 10.7 L (12.0-16.0) g/dl Hct 33.0 L (37.0-47.0) % MCV 79.7 L (80.0-98.0) fL MCH 25.8 L (27.0-33.0) pg MCHC 32.4 (31.0-35.0) g/dl RDW 15.8 (11.0-16.0) % Plt Count TNP MPV 11.6 (9.4-12.3) fL Immature Gran % (Auto) 0.9 H (0.0-0.4) % Neut % (Auto) 66.9 (45-73) % Lymph % (Auto) 22.3 (20-40) % [place] % (Auto) 7.0 (2-11) % Eos % (Auto) 2.1 (0-4) % Baso % (Auto) 0.8 (0-2) % Lymph # (Auto) 2.0 (1.2-4.9) X10*3/uL [place] # (Auto) 0.6 (0.1-1.2) X10*3/uL Eos # (Auto) 0.2 (0.0-0.4) X10*3/uL Baso # (Auto) 0.1 (0.0-0.2) X10*3/uL Abs Immat Gran (auto) 0.08 H (0.00-0.03) X10*3/uL Absolute Neuts (auto) 5.9 (2.0-8.3) x10*3/uL Absolute Nucleated RBC 0.000 (0.0-0.012) X10*3/uL Nucleated RBC % (auto) 0.0 (0.0-0.2) /100WBC Smear Tech's Comments VERIFIED VBG pH (7.32-7.43) VBG pCO2 mmHg VBG pO2 mmHg VBG HCO3 (22-26) mmol/L VBG O2 Saturation % VBG Base Excess mmol/L Sodium 131 L (135-145) mmol/L Potassium 5.6 H (3.3-5.1) mmol/L Chloride 98 (96-108) mmol/L Carbon Dioxide 21 L (22-29) mmol/L Anion Gap 18 (12-20) BUN 33 H (9-16) mg/dL Creatinine 2.13 H (0.5-1.4) mg/dL Estim Creat Clear Calc 18.2 Estimated GFR 23 POC Glucose 483 H* (60-115) mg/dL Random Glucose 547 H* (60-115) mg/dL Calcium 9.9 (8.4-10.2) mg/dL Magnesium 2.2 (1.6-2.6) mg/dL Total Bilirubin 0.3 (0.0-1.0) mg/dL AST 30 (5-31) U/L ALT 15 (0-31) U/L Alkaline Phosphatase 239 H (39-117) U/L Troponin I High Sens 7.6 D (<3.5-17.0) ng/L Total Protein 7.6 (6.5-8.0) g/dL Albumin 3.5 (3.5-5.0) g/dL Beta-Hydroxybutyrate 3.37 H (0.02-0.27) mmol/L Urine Color Urine Appearance Urine pH (5.0-9.0) Ur Specific [place] (1.005-1.025) Urine Protein (Neg-Trace) mg/dL Urine Glucose (UA) (Negative) mg/dL Urine Ketones (Negative) mg/dL Urine Blood (Negative) Urine Nitrite (Negative) Ur Leukocyte Esterase (Negative) Urine RBC (0-2) /HPF Urine WBC (0-5) /HPF Ur Squamous Epith Cells (0-2) /HPF Urine Bacteria (None Seen) Hyaline Casts (0-2) /LPF COVID-19 (LESLY) (Negative) COVID-19 Clin Com Influenza Type A (MAGO) (Negative) Influenza Type B (MAGO) (Negative) Influenza A & B Note 03/19/23 03/19/23 03/19/23 Range/Units 21:33 22:01 23:36 WBC (4.8-10.8) X10*3/uL RBC (4.20-5.50) X10*6/uL Hgb (12.0-16.0) g/dl Hct (37.0-47.0) % MCV (80.0-98.0) fL MCH (27.0-33.0) pg MCHC (31.0-35.0) g/dl RDW (11.0-16.0) % Plt Count MPV (9.4-12.3) fL Immature Gran % (Auto) (0.0-0.4) % Neut % (Auto) (45-73) % Lymph % (Auto) (20-40) % [place] % (Auto) (2-11) % Eos % (Auto) (0-4) % Baso % (Auto) (0-2) % Lymph # (Auto) (1.2-4.9) X10*3/uL [place] # (Auto) (0.1-1.2) X10*3/uL Eos # (Auto) (0.0-0.4) X10*3/uL Baso # (Auto) (0.0-0.2) X10*3/uL Abs Immat Gran (auto) (0.00-0.03) X10*3/uL Absolute Neuts (auto) (2.0-8.3) x10*3/uL Absolute Nucleated RBC (0.0-0.012) X10*3/uL Nucleated RBC % (auto) (0.0-0.2) /100WBC Smear Tech's Comments VBG pH 7.51 H (7.32-7.43) VBG pCO2 29 mmHg VBG pO2 210 mmHg VBG HCO3 23 (22-26) mmol/L VBG O2 Saturation 99.0 % VBG Base Excess 1.5 mmol/L Sodium (135-145) mmol/L Potassium (3.3-5.1) mmol/L Chloride (96-108) mmol/L Carbon Dioxide (22-29) mmol/L Anion Gap (12-20) BUN (9-16) mg/dL Creatinine (0.5-1.4) mg/dL Estim Creat Clear Calc Estimated GFR POC Glucose 556 H* 449 H* (60-115) mg/dL Random Glucose (60-115) mg/dL Calcium (8.4-10.2) mg/dL Magnesium (1.6-2.6) mg/dL Total Bilirubin (0.0-1.0) mg/dL AST (5-31) U/L ALT (0-31) U/L Alkaline Phosphatase (39-117) U/L Troponin I High Sens (<3.5-17.0) ng/L Total Protein (6.5-8.0) g/dL Albumin (3.5-5.0) g/dL Beta-Hydroxybutyrate (0.02-0.27) mmol/L Urine Color Urine Appearance Urine pH (5.0-9.0) Ur Specific [place] (1.005-1.025) Urine Protein (Neg-Trace) mg/dL Urine Glucose (UA) (Negative) mg/dL Urine Ketones (Negative) mg/dL Urine Blood (Negative) Urine Nitrite (Negative) Ur Leukocyte Esterase (Negative) Urine RBC (0-2) /HPF Urine WBC (0-5) /HPF Ur Squamous Epith Cells (0-2) /HPF Urine Bacteria (None Seen) Hyaline Casts (0-2) /LPF COVID-19 (LESLY) (Negative) COVID-19 Clin Com Influenza Type A (MAGO) (Negative) Influenza Type B (MAGO) (Negative) Influenza A & B Note 03/19/23 03/20/23 03/20/23 Range/Units 23:37 00:53 01:36 WBC (4.8-10.8) X10*3/uL RBC (4.20-5.50) X10*6/uL Hgb (12.0-16.0) g/dl Hct (37.0-47.0) % MCV (80.0-98.0) fL MCH (27.0-33.0) pg MCHC (31.0-35.0) g/dl RDW (11.0-16.0) % Plt Count MPV (9.4-12.3) fL Immature Gran % (Auto) (0.0-0.4) % Neut % (Auto) (45-73) % Lymph % (Auto) (20-40) % [place] % (Auto) (2-11) % Eos % (Auto) (0-4) % Baso % (Auto) (0-2) % Lymph # (Auto) (1.2-4.9) X10*3/uL [place] # (Auto) (0.1-1.2) X10*3/uL Eos # (Auto) (0.0-0.4) X10*3/uL Baso # (Auto) (0.0-0.2) X10*3/uL Abs Immat Gran (auto) (0.00-0.03) X10*3/uL Absolute Neuts (auto) (2.0-8.3) x10*3/uL Absolute Nucleated RBC (0.0-0.012) X10*3/uL Nucleated RBC % (auto) (0.0-0.2) /100WBC Smear Tech's Comments VBG pH (7.32-7.43) VBG pCO2 mmHg VBG pO2 mmHg VBG HCO3 (22-26) mmol/L VBG O2 Saturation % VBG Base Excess mmol/L Sodium (135-145) mmol/L Potassium (3.3-5.1) mmol/L Chloride (96-108) mmol/L Carbon Dioxide (22-29) mmol/L Anion Gap (12-20) BUN (9-16) mg/dL Creatinine (0.5-1.4) mg/dL Estim Creat Clear Calc Estimated GFR POC Glucose 415 H* 430 H* 453 H* (60-115) mg/dL Random Glucose (60-115) mg/dL Calcium (8.4-10.2) mg/dL Magnesium (1.6-2.6) mg/dL Total Bilirubin (0.0-1.0) mg/dL AST (5-31) U/L ALT (0-31) U/L Alkaline Phosphatase (39-117) U/L Troponin I High Sens (<3.5-17.0) ng/L Total Protein (6.5-8.0) g/dL Albumin (3.5-5.0) g/dL Beta-Hydroxybutyrate (0.02-0.27) mmol/L Urine Color Urine Appearance Urine pH (5.0-9.0) Ur Specific [place] (1.005-1.025) Urine Protein (Neg-Trace) mg/dL Urine Glucose (UA) (Negative) mg/dL Urine Ketones (Negative) mg/dL Urine Blood (Negative) Urine Nitrite (Negative) Ur Leukocyte Esterase (Negative) Urine RBC (0-2) /HPF Urine WBC (0-5) /HPF Ur Squamous Epith Cells (0-2) /HPF Urine Bacteria (None Seen) Hyaline Casts (0-2) /LPF COVID-19 (LESLY) (Negative) COVID-19 Clin Com Influenza Type A (MAGO) (Negative) Influenza Type B (MAGO) (Negative) Influenza A & B Note 03/20/23 03/20/23 03/20/23 Range/Units 02:17 03:27 04:35 WBC (4.8-10.8) X10*3/uL RBC (4.20-5.50) X10*6/uL Hgb (12.0-16.0) g/dl Hct (37.0-47.0) % MCV (80.0-98.0) fL MCH (27.0-33.0) pg MCHC (31.0-35.0) g/dl RDW (11.0-16.0) % Plt Count MPV (9.4-12.3) fL Immature Gran % (Auto) (0.0-0.4) % Neut % (Auto) (45-73) % Lymph % (Auto) (20-40) % [place] % (Auto) (2-11) % Eos % (Auto) (0-4) % Baso % (Auto) (0-2) % Lymph # (Auto) (1.2-4.9) X10*3/uL [place] # (Auto) (0.1-1.2) X10*3/uL Eos # (Auto) (0.0-0.4) X10*3/uL Baso # (Auto) (0.0-0.2) X10*3/uL Abs Immat Gran (auto) (0.00-0.03) X10*3/uL Absolute Neuts (auto) (2.0-8.3) x10*3/uL Absolute Nucleated RBC (0.0-0.012) X10*3/uL Nucleated RBC % (auto) (0.0-0.2) /100WBC Smear Tech's Comments VBG pH (7.32-7.43) VBG pCO2 mmHg VBG pO2 mmHg VBG HCO3 (22-26) mmol/L VBG O2 Saturation % VBG Base Excess mmol/L Sodium (135-145) mmol/L Potassium (3.3-5.1) mmol/L Chloride (96-108) mmol/L Carbon Dioxide (22-29) mmol/L Anion Gap (12-20) BUN (9-16) mg/dL Creatinine (0.5-1.4) mg/dL Estim Creat Clear Calc Estimated GFR POC Glucose 461 H* 381 H* (60-115) mg/dL Random Glucose (60-115) mg/dL Calcium (8.4-10.2) mg/dL Magnesium (1.6-2.6) mg/dL Total Bilirubin (0.0-1.0) mg/dL AST (5-31) U/L ALT (0-31) U/L Alkaline Phosphatase (39-117) U/L Troponin I High Sens (<3.5-17.0) ng/L Total Protein (6.5-8.0) g/dL Albumin (3.5-5.0) g/dL Beta-Hydroxybutyrate (0.02-0.27) mmol/L Urine Color Yellow Urine Appearance Clear Urine pH 6.5 (5.0-9.0) Ur Specific [place] 1.015 (1.005-1.025) Urine Protein 300 (3+) H (Neg-Trace) mg/dL Urine Glucose (UA) >=1000 H (Negative) mg/dL Urine Ketones Trace (Negative) mg/dL Urine Blood Trace H (Negative) Urine Nitrite Negative (Negative) Ur Leukocyte Esterase Negative (Negative) Urine RBC 0-2 (0-2) /HPF Urine WBC 0-5 (0-5) /HPF Ur Squamous Epith Cells 0-2 (0-2) /HPF Urine Bacteria None Seen (None Seen) Hyaline Casts 0-2 (0-2) /LPF COVID-19 (LESLY) Negative (Negative) COVID-19 Clin Com See Note Influenza Type A (MAGO) Negative (Negative) Influenza Type B (MAGO) Negative (Negative) Influenza A & B Note See Note 03/20/23 03/20/23 03/20/23 Range/Units 05:00 06:57 09:48 WBC (4.8-10.8) X10*3/uL RBC (4.20-5.50) X10*6/uL Hgb (12.0-16.0) g/dl Hct (37.0-47.0) % MCV (80.0-98.0) fL MCH (27.0-33.0) pg MCHC (31.0-35.0) g/dl RDW (11.0-16.0) % Plt Count MPV (9.4-12.3) fL Immature Gran % (Auto) (0.0-0.4) % Neut % (Auto) (45-73) % Lymph % (Auto) (20-40) % [place] % (Auto) (2-11) % Eos % (Auto) (0-4) % Baso % (Auto) (0-2) % Lymph # (Auto) (1.2-4.9) X10*3/uL [place] # (Auto) (0.1-1.2) X10*3/uL Eos # (Auto) (0.0-0.4) X10*3/uL Baso # (Auto) (0.0-0.2) X10*3/uL Abs Immat Gran (auto) (0.00-0.03) X10*3/uL Absolute Neuts (auto) (2.0-8.3) x10*3/uL Absolute Nucleated RBC (0.0-0.012) X10*3/uL Nucleated RBC % (auto) (0.0-0.2) /100WBC Smear Tech's Comments VBG pH (7.32-7.43) VBG pCO2 mmHg VBG pO2 mmHg VBG HCO3 (22-26) mmol/L VBG O2 Saturation % VBG Base Excess mmol/L Sodium (135-145) mmol/L Potassium (3.3-5.1) mmol/L Chloride (96-108) mmol/L Carbon Dioxide (22-29) mmol/L Anion Gap (12-20) BUN (9-16) mg/dL Creatinine (0.5-1.4) mg/dL Estim Creat Clear Calc Estimated GFR POC Glucose 435 H* 460 H* 467 H* (60-115) mg/dL Random Glucose (60-115) mg/dL Calcium (8.4-10.2) mg/dL Magnesium (1.6-2.6) mg/dL Total Bilirubin (0.0-1.0) mg/dL AST (5-31) U/L ALT (0-31) U/L Alkaline Phosphatase (39-117) U/L Troponin I High Sens (<3.5-17.0) ng/L Total Protein (6.5-8.0) g/dL Albumin (3.5-5.0) g/dL Beta-Hydroxybutyrate (0.02-0.27) mmol/L Urine Color Urine Appearance Urine pH (5.0-9.0) Ur Specific [place] (1.005-1.025) Urine Protein (Neg-Trace) mg/dL Urine Glucose (UA) (Negative) mg/dL Urine Ketones (Negative) mg/dL Urine Blood (Negative) Urine Nitrite (Negative) Ur Leukocyte Esterase (Negative) Urine RBC (0-2) /HPF Urine WBC (0-5) /HPF Ur Squamous Epith Cells (0-2) /HPF Urine Bacteria (None Seen) Hyaline Casts (0-2) /LPF COVID-19 (LESLY) (Negative) COVID-19 Clin Com Influenza Type A (MAGO) (Negative) Influenza Type B (MAGO) (Negative) Influenza A & B Note 03/20/23 03/20/23 Range/Units 12:04 12:30 WBC (4.8-10.8) X10*3/uL RBC (4.20-5.50) X10*6/uL Hgb (12.0-16.0) g/dl Hct (37.0-47.0) % MCV (80.0-98.0) fL MCH (27.0-33.0) pg MCHC (31.0-35.0) g/dl RDW (11.0-16.0) % Plt Count MPV (9.4-12.3) fL Immature Gran % (Auto) (0.0-0.4) % Neut % (Auto) (45-73) % Lymph % (Auto) (20-40) % [place] % (Auto) (2-11) % Eos % (Auto) (0-4) % Baso % (Auto) (0-2) % Lymph # (Auto) (1.2-4.9) X10*3/uL [place] # (Auto) (0.1-1.2) X10*3/uL Eos # (Auto) (0.0-0.4) X10*3/uL Baso # (Auto) (0.0-0.2) X10*3/uL Abs Immat Gran (auto) (0.00-0.03) X10*3/uL Absolute Neuts (auto) (2.0-8.3) x10*3/uL Absolute Nucleated RBC (0.0-0.012) X10*3/uL Nucleated RBC % (auto) (0.0-0.2) /100WBC Smear Tech's Comments VBG pH (7.32-7.43) VBG pCO2 mmHg VBG pO2 mmHg VBG HCO3 (22-26) mmol/L VBG O2 Saturation % VBG Base Excess mmol/L Sodium 142 (135-145) mmol/L Potassium 4.3 D (3.3-5.1) mmol/L Chloride 103 (96-108) mmol/L Carbon Dioxide 21 L (22-29) mmol/L Anion Gap 22 H (12-20) BUN 27 H (9-16) mg/dL Creatinine 1.83 H (0.5-1.4) mg/dL Estim Creat Clear Calc 21.3 Estimated GFR 27 POC Glucose 413 H* (60-115) mg/dL Random Glucose 496 H* (60-115) mg/dL Calcium 9.8 (8.4-10.2) mg/dL Magnesium (1.6-2.6) mg/dL Total Bilirubin (0.0-1.0) mg/dL AST (5-31) U/L ALT (0-31) U/L Alkaline Phosphatase (39-117) U/L Troponin I High Sens (<3.5-17.0) ng/L Total Protein (6.5-8.0) g/dL Albumin (3.5-5.0) g/dL Beta-Hydroxybutyrate (0.02-0.27) mmol/L Urine Color Urine Appearance Urine pH (5.0-9.0) Ur Specific [place] (1.005-1.025) Urine Protein (Neg-Trace) mg/dL Urine Glucose (UA) (Negative) mg/dL Urine Ketones (Negative) mg/dL Urine Blood (Negative) Urine Nitrite (Negative) Ur Leukocyte Esterase (Negative) Urine RBC (0-2) /HPF Urine WBC (0-5) /HPF Ur Squamous Epith Cells (0-2) /HPF Urine Bacteria (None Seen) Hyaline Casts (0-2) /LPF COVID-19 (LESLY) (Negative) COVID-19 Clin Com Influenza Type A (MAGO) (Negative) Influenza Type B (MAGO) (Negative) Influenza A & B Note Independent Interpretation I performed an independent interpretation of an: EKG Interpretation: My interpretation of EKG: Normal sinus rhythm, heart 99, no ST segment depression or elevation, no T-wave inversion, QTC 472 Radiology Impression Discussion of test interpretation with radiology: I have reviewed the radiologist's reading. Radiologist Impression: CT abdomen pelvis wo IV con IMPRESSION: Irregular liver contour suggests hepatocellular disease/cirrhosis. Retained stool throughout the colon. The appendix is not confidently seen as a separate structure. Distended urinary bladder. T12 and L2 compression fractures with spinal canal narrowing. Fleischner guidelines were followed. Dictated By: Washington Wilson CT head/brain wo IV con IMPRESSION: Cerebral volume loss and mild to moderate bilateral periventricular and central white matter diminished attenuation which is nonspecific but likely to represent microvascular disease. 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 There is no acute intracranial abnormality. Dictated By: Washington Wilson XR chest 1V IMPRESSION: Hypoexpanded with basilar markings more likely due to atelectasis. Dictated By: Scottie Reyes MD Critical Care Time Critical Care Time Critical Care Time: Yes Total Critical Care Time: 75 Attestation: I have personally provided critical care time. Time includes review of lab data, radiology results, discussion with consultants, and monitoring for potential decompensation. Intervention performed as documented. Discharge Plan Discharge Clinical Impression: Acute hyperglycemia, Acute kidney injury superimposed on CKD, Acute dehydration, Nausea & vomiting Patient Disposition: Admitted As Inpatient
[2023-03-19 15:41] LABS: Basophils Absolute Auto 0.1 X10*3/uL (0.0-0.2); Basophils Percent Auto 0.8 % (0-2); Eosinophils Absolute Auto 0.2 X10*3/uL (0.0-0.4); Eosinophils Percent Auto 2.1 % (0-4); Hemoglobin 10.7 g/dl (12.0-16.0); Imm Gran Abs Auto 0.08 X10*3/uL (0.00-0.03); Imm Gran Pct Auto 0.9 % (0.0-0.4); Lymphocytes Percent Auto 22.3 % (20-40); MANUAL DIFF FLAG SCAN; Mean Corpuscular HGB Conc 32.4 g/dl (31.0-35.0); Mean Corpuscular Hemoglobin 25.8 pg (27.0-33.0); Mean Corpuscular Volume 79.7 fL (80.0-98.0); Mean Platelet Volume 11.6 fL (9.4-12.3); Monocytes Absolute Auto 0.6 X10*3/uL (0.1-1.2); Neutrophils Absolute Auto 5.9 x10*3/uL (2.0-8.3); Neutrophils Percent Auto 66.9 % (45-73); PLT CLUMP 1; Red Blood Count 4.14 X10*6/uL (4.20-5.50); Red Cell Distribution Width 15.8 % (11.0-16.0); SCAN SMEAR FLAG 1
[2023-03-19 15:43] LABS: PLT ABN DIST 1
[2023-03-19 16:05] LABS: SLIDE REVIEW VERIFIED; White Blood Count 8.8 X10*3/uL (4.8-10.8)
[2023-03-19 16:30] LABS: Alanine Aminotransferase 15 U/L (0-31); Albumin Level 3.5 g/dL (3.5-5.0); Alkaline Phosphatase 239 U/L (39-117); Anion Gap 18 (12-20); Aspartate Amino Transferase 30 U/L (5-31); Bilirubin Total 0.3 mg/dL (0.0-1.0); Blood Urea Nitrogen 33 mg/dL (9-16); Calcium 9.9 mg/dL (8.4-10.2); Carbon Dioxide 21 mmol/L (22-29); Chloride 98 mmol/L (96-108); Creatinine Clr Calc Pharmacy 18.2; Estimated Glomerular Filt Rate 23; Glucose Random 547 mg/dL (60-115); Magnesium 2.2 mg/dL (1.6-2.6); Potassium 5.6 mmol/L (3.3-5.1); Sodium 131 mmol/L (135-145); Total Protein 7.6 g/dL (6.5-8.0)
--- OUTSIDE RECORDS SUMMARY | 2023-03-19 20:02 | XMS_ITS | Continuity of Care Document ---
Author Name Unknown Organization [facility] ter Address [address] [place] [address]- Care Team Providers Care Turbine Assembler Name Role Phone Kathy Buck MD Primary Care Physician [place] [facility] [place]13[place]22 - 05/13/[address] [address]- Encounter Diagnosis Poorly controlled diabetes mellitus(Final) - 05/13/22 Hyperglycemia due to diabetes mellitus(Final) - 05/13/22 Discharge Disposition: A-D/C Home Attending Physician: Jim Flores MD Admitting Physician: Jim Flores MD Referring Physician: Not on Staff, Referring MD Allergies, Adverse Reactions, Alerts No Known Allergies Immunizations Given and Recorded Vaccine Date Status Refusal Reason SARS-CoV-2 (COVID-19) Ad26 vaccine 10/15/20 Record ed Not Given Vaccine Date Status Refusal Reason pneumococcal 13-valent vaccine 12/16/18 Not Given Patient Refuses Medications acetaminophen 500 mg oral tablet 2 tablet = 1,000 mg, By Mouth, Daily, PRN for fever, 0 Refills, Maintenance, 06/04/21 17:05:00 EST,Tablet, Partial fill upon patient request if the prescription is for a schedule II opioid drug. Start Date: 06/04/21 Status: Ordered Albuterol (Eqv-ProAir HFA) 90 mcg/inh inhalation aerosol 2 puffs, Inhalation, Every 6 hours, 0 Refills, Maintenance, 12/01/20 4:54:00 EDT, Partial fill uponpatient request if the prescription is for a schedule II opioid drug. Start Date: 12/01/20 Status: Ordered aspirin 81 mg oral delayed release tablet 81 mg, 1, tablet, By Mouth, Daily Start Date: 12/15/18 Status: Ordered cetirizine 5 mg oral tablet = 5 mg, By Mouth, Daily, # 30 tablet, 0 Refills, Maintenance, 12/01/20 4:54:00 EDT, Tablet, Partialfill upon patient request if the prescription is for a schedule II opioid drug. Start Date: 12/01/20 Status: Ordered Dex4 Tropical Blast 45% oral gel = 15 Gm, By Mouth, Once, PRN as needed for low blood sugar, # 33 Gm, 0 Refills, Soft Stop, 09/26/2212:08:00 EDT, Gel, Partial fill upon patient request if the prescription is for a schedule II opioid drug., 149, cm, 09/26/21 11:32:00 EDT, Height, 68.... Start Date: 09/26/21 Status: Ordered escitalopram 5 mg oral tablet 1 tablet = 5 mg, By Mouth, Daily, # 30 tablet, 0 Refills, Maintenance, 12/01/20 4:52:00 EDT, Tablet, Partial fill upon patient request if the prescription is for a schedule II opioid drug. Start Date: 12/01/20 Status: Ordered ferrous fumarate 300 mg oral tablet 1 tablet = 300 mg, By Mouth, Daily, # 30 tablet, 0 Refills, Maintenance, 10/05/19 15:29:00 EDT, Tablet, [facility]/pharmacy #[id number], 144.78, cm, 10/05/19 14:50:00 EDT, Height, 89.5, kg, 10/01/19 20:04:00 EDT,Dry Weight Start Date: 10/05/19 Stop Date: 11/04/19 Status: Ordered fluticasone 50 mcg/inh nasal spray 1 sprays, Nares, Both, 2 times a day, # 16 Gm, 0 Refills, Maintenance, 12/01/20 4:52:00 EDT, [place],Partial fill upon patient request if the prescription is for a schedule II opioid drug. Start Date: 12/01/20 Status: Ordered insulin glargine 100 units/mL subcutaneous solution = 15 units, Subcutaneous Injection, Daily in AM, # 3.6 mL, 0 Refills, Maintenance, 03/08/22 13:57:00 EDT, Injection, [facility], Partial fill upon patient request if the prescription isfor a schedule II opioid drug., 140, cm, 03/08/22 4... Start Date: 03/08/22 Status: Ordered insulin lispro 100 units/mL injectable solution 2-8 units, Subcutaneous Injection, 3 times a day before meals, 120 - 149 2 units 150 - 179 3 units 180 - 209 4 units 210 - 239 6 units 240 - 269 7 units 270 - 299 8 units Call MD if greater than 300,# 15 mL, 0 Refills, Maintenan... Start Date: 09/26/21 Status: Ordered lactulose 10 gm/15 ml oral syrup 45 mL = 30 Gm, By Mouth, 3 times a day, Titrate up to 2-3 bowel movements per day or until she has a bowel movement., 0 Refills, Maintenance, 08/24/20 10:35:00 EDT, Syrup, Partial fill upon patient request if the prescription is for a schedule II opio... Start Date: 08/24/20 Status: Ordered lidocaine 5% topical film Topically, Daily, 0 Refills, Maintenance, 12/05/20 13:22:00 EDT, Patch, Partial fill upon patient request if the prescription is for a schedule II opioid drug. Start Date: 12/05/20 Status: Ordered Linzess 145 mcg oral capsule 1 capsule = 145 mcg, By Mouth, Daily, # 30 capsule, 5 Refills, Maintenance, 06/14/21 8:50:00 EST, Capsule, [facility]/pharmacy #[id number], Partial fill upon patient request if the prescription is for a schedule II opioid drug., 152, cm, 06/07/21 7:45:00 EST, [place]... Start Date: 06/14/21 Status: Ordered MiraLax oral powder for reconstitution = 17 Gm, By Mouth, 2 times a day before breakfast and dinne, dissolve in water before taking, # 527Gm, 11 Refills, Maintenance, 05/28/21 13:46:00 EST, REC Powder, [facility] #[id number], Partial fill upon patient request if the prescription is for a sche... Start Date: 05/28/21 Status: Ordered Norvasc 2.5 mg oral tablet 2.5 mg, 1, tablet, By Mouth, Daily, Please conctact office for apt. for further refills [phone], #30 tablet, Refills 1, Tot. Refills 1, Maintenance, 08/03/20 11:28:00 EDT, Route to Pharmacy Electronically, [facility], y convert t... Start Date: 08/03/20 Status: Ordered Norvasc 5 mg oral tablet 2.5 mg, Tablet, By Mouth, 05/13/22 10:52:00 EST Start Date: 05/13/22 Stop Date: 05/13/22 Status: Completed ondansetron 4 mg oral tablet, disintegrating 1 tablet = 4 mg, By Mouth, Every 8 hours, PRN Nausea & Vomiting, # 10 tablet, 0 Refills, Maintenance, 06/04/21 17:06:00 EST, Tablet, Partial fill upon patient request if the prescription is for aschedule II opioid drug. Start Date: 06/04/21 Status: Ordered Protonix 40 mg oral delayed release tablet 1 tablet = 40 mg, By Mouth, Daily, # 30 tablet, 0 Refills, Maintenance, 06/07/21 9:15:00 EST, EC Tablet, 152, cm, 06/07/21 7:45:00 EST, Height, 65.4, kg, 06/05/21 0:21:00 EST, Dry Weight Start Date: 06/07/21 Status: Ordered rifAXIMin 550 mg oral tablet 1 tablet = 550 mg, By Mouth, 2 times a day, 0 Refills, Maintenance, 08/24/20 10:36:00 EDT, Tablet, Partial fill upon patient request if the prescription is for a schedule II opioid drug. Start Date: 08/24/20 Status: Ordered ticagrelor 90 mg oral tablet 1 tablet = 90 mg, By Mouth, 2 times a day, Please conctact office for apt. for further refills [phone], # 60 tablet, 1 Refills, Maintenance, 08/03/20 11:29:00 EDT, Tablet, [facility], may convert to 90 days at patient request., 14... Start Date: 08/03/20 Stop Date: 10/02/20 Status: Ordered traZODone 50 mg oral tablet 50 mg, 1, tablet, By Mouth, Daily at supper, Refills 0, Maintenance, 08/24/20 10:35:00 EDT, Partialfill upon patient request if the prescription is for a schedule II opioid drug. Start Date: 08/24/20 Status: Ordered ursodiol 300 mg oral capsule 300 mg, 1, capsule, By Mouth, 3 times a day, for 30 days, # 90 capsule, Refills 5, Tot. Refills 5, Hard Stop 10/20/22 9:58:00 EDT, 04/23/22 9:58:00 EST, Route to Pharmacy Electronically, [facility], Partial fill upon patient request if t... Start Date: 04/23/22 Stop Date: 10/20/22 Status: Ordered ursodiol 300 mg oral capsule 300 mg, 1, capsule, By Mouth, 3 times a day, # 90 capsule, Refills 5, Tot. Refills 5, Maintenance, 10/20/22 9:58:00 EDT, [id number] Partial fill upon patient request if the prescription is for a schedule II o... Start Date: 10/20/22 Stop Date: 04/18/23 Status: Ordered ursodiol 400 mg oral capsule 1 capsule = 400 mg, By Mouth, 2 times a day, # 180 capsule, 3 Refills, Maintenance, 04/23/22 7:22:00 EST, [facility], Partial fill upon patient request if the prescription is for a schedule II opioid drug., 144.8, cm, 04/14/22 12:40:00 E... Start Date: 04/23/22 Stop Date: 04/18/23 Status: Ordered Vitamin D3 2000 intl units oral tablet 1 tablet = 50 mcg, By Mouth, Daily, 0 Refills, Maintenance, 06/04/21 17:05:00 EST, Partial fill upon patient request if the prescription is for a schedule II opioid drug. Start Date: 06/04/21 Status: Ordered Problem List Condition Confirmation Course Effective Dates Status H ealth Status Informant Arthritis 1 Confirmed Active Asthma Confirmed Active Chronic anemia Confirmed Active CKD (chronic kidney disease) Confirmed Active Cirrhosis Confirmed Active CAD (coronary artery disease) Confirmed Active Dementia Confirmed Active Depression Confirmed Active Hyperlipidemia Confirmed Active HTN (hypertension) Confirmed Active Insomnia Confirmed Active Obese class I Confirmed Active Brain TIA Confirmed Active DM2 (diabetes mellitus, type 2) Confirmed Active 1hands Vital Signs Most recent to oldest [Reference Range]: 1 2 3 Oxygen Saturation [94-100 %] 100 % (05/13/22 6:16 PM) 100 % (05/13/22 4:21 PM) 100 % (05/13/22 12:09 PM) Pulse Rate [55-90 bpm] 92 bpm *H* (05/13/22 6:16 PM) 97 bpm *H* (05/13/22 4:21 PM) 93 bpm *H* (05/13/22 12:09 PM) Blood Pressure [90-138/55-84 mm Hg] 124/67mm Hg (05/13/22 6:16 PM) 114/68mm Hg (05/13/22 4:21 PM) 152/70mm Hg *H* (05/13/22 12:09 PM) Respiratory Rate [16-30 br/min] 20 br/min (05/13/22 6:16 PM) 20 br/min (05/13/22 4:21 PM) 23 br/min (05/13/22 12:09 PM) Temperature [96.8-100.4 DegF] 98.8 DegF (05/13/22 9:59 AM) Mode of Delivery (Oxygen) Room air (05/13/22 6:16 PM) Room air (05/13/22 4:21 PM) Room air (05/13/22 12:09 PM) Blood pressure sites Arm, right (05/13/22 12:09 PM) Arm, right (05/13/22 9:59 AM) Temperature Route Oral (05/13/22 9:59 AM) Social History Social History Type Response Smoking Status Never (less than 100 in lifetime) entered on: 06/27/21 Sex Female Patient Care team information Care Team Personnel Name: Aster Pena RN Position: [facility] RN Member Role: Primary Care Nurse Name: Dunia Phillip RN Position: [facility] RN Member Role: Primary Care Nurse Name: Alon Gonzalez RN Position: [facility] RN Member Role: Primary Care Nurse Name: Jessica Canseco RN Position: S RN Member Role: Primary Care Nurse Name: Erica Archer RN Position: [facility] RN Supv Member Role: Primary Care Nurse Name: Vickie Lyons Position: S Outreach Member Role: Lifetime Consulting Physician Name: Martine Carr RN Position: [facility] RN Member Role: Primary Care Nurse Name: Bello RNIndira Position: [facility] RN Member Role: Primary Care Nurse Name: Loren Mcmanus RN Position: [facility] RN Member Role: Primary Care Nurse Name: Marisela Lobo LPN Position: [facility] RN Member Role: Primary Care Nurse Name: Mp Zarco RN Position: [facility] RN Member Role: Primary Care Nurse Name: Britney Henao RN Position: [facility] RN Member Role: Primary Care Nurse Name: Kathy Buck MD Position: [facility] Outreach Member Role: PCP Address: Address: [address] [place] [id number]- [place] Name: Blayne Hughes RN Position: [facility] RN Member Role: Primary Care Nurse Name: Norma Art RN Position: [facility] RN Member Role: Primary Care Nurse Name: Mecca Boyd RN Position: [facility] RN Member Role: Primary Care Nurse Name: Katie Evans RN Position: [facility] RN Member Role: Primary Care Nurse Name: Leonor Mccormick RN Position: [facility] RN Member Role: Primary Care Nurse Name: Paige Morris RN Position: [facility] RN Member Role: Primary Care Nurse Name: Shauna Angela RN Position: [facility] RN Member Role: Primary Care Nurse Name: Trini Starr RN Position: [facility] RN Member Role: Primary Care Nurse Name: Susie Monson RN Position: [facility] RN Member Role: Primary Care Nurse Name: Meena Castro RN Position: [facility] RN Member Role: Primary Care [facility] Attending Position: [facility] ED Attendings Patient Name: Jenae Collado RN Position: [facility] ED RN W/OE and Tasks Member Role: Patient Care Provider Name: Jim Flores MD Position: [facility] ED Medicine MD Member Role: Admitting Physician Address: Address: [address] [place] [address] [place] [address]- [place] Name: Earline Coleman Position: [facility] ED TA [facility] Member Role: Utility Maintenance Worker Care Team Related Persons Name: PAIGE TALBERT Address: [place] [address] Name: CAMRON VELASQUEZ Address: [place] [address] Name: ANTIONE SETHI Address: home [address] [place] [address]
--- OUTSIDE RECORDS SUMMARY | 2023-03-19 20:02 | XMS_ITS | Continuity of Care Document ---
Author Name Unknown Organization [facility] ter Address [address] [place] [id number]- Care Team Providers Care Beamer Hand Name Role Phone Boris Cruz MD Primary Care Physician [id number] Date(s): 08/17/20 - 08/24/[address] [address]- Encounter Diagnosis Altered mental status(Final) - 08/17/20 Discharge Disposition: A-Transfer SNF Attending Physician: Porfirio Hess MD Admitting Physician: Erin Trivedi MD Referring Physician: Not on Staff, Referring MD Allergies, Adverse Reactions, Alerts Substance Reaction Severity Status NKA Active Immunizations Not Given Vaccine Date Status Refusal Reason pneumococcal 13-valent vaccine 12/16/18 Not Given Patient Refuses Medications aspirin 81 mg oral delayed release tablet TAKE 1 TABLET BY MOUTH EVERY MORNING Start Date: 12/15/18 Status: Ordered bisacodyl 5 mg oral delayed release tablet TAKE 1 TABLET EVERY DAY NEEDED Start Date: 12/15/18 Status: Ordered Docusate Sodium 100 Mg Softgel TAKE 1 CAPSULE TWICE DAILY NEEDED. STOP FOR FOR DIARRHEA Start Date: 12/15/18 Status: Ordered famotidine 20 mg oral tablet TAKE 1 TABLET BY MOUTH EVERY DAY Start Date: 08/10/20 Status: Ordered ferrous fumarate 300 mg oral tablet 1 tablet = 300 mg, By Mouth, Daily, # 30 tablet, 0 Refills, Maintenance, 10/05/19 15:29:00 EDT, Tablet, [id number], 144.78, cm, 10/05/19 14:50:00 EDT, Height, 89.5, kg, 10/01/19 20:04:00 EDT,Dry Weight Start Date: 10/05/19 Stop Date: 11/04/19 Status: Ordered Flonase 50 mcg/inh nasal spray 1 sprays = 50 mcg, Nares, Both, 2 times a day, # 16 Gm, 0 Refills, Maintenance, 10/05/19 15:24:00 EDT, Nasal [place], [facility]/pharmacy #[id number], 1 sprays Nares, Both 2 times a day, 144.78, cm, 10/05/19 14:50:00 EDT, Height, 89.5, kg, 10/01/19 20:04:00 EDT, Dry... Start Date: 10/05/19 Status: Ordered FLUoxetine (Eqv-Prozac) 10 mg oral tablet TAKE 1 TABLET BY MOUTH EVERY DAY Start Date: 08/10/20 Status: Ordered furosemide 20 mg oral tablet TAKE 1 TABLET BY MOUTH EVERY DAY NEEDED FOR LEG SWELLING Start Date: 08/10/20 Status: Ordered insulin glargine 100 u/ml subcutaneous solution = 20 units, Subcutaneous Injection, Daily at bedtime, # 10 mL, 0 Refills, Maintenance, 10/05/19 15:24:00 EDT, Injection, [facility]/pharmacy #[id number], 144.78, cm, 10/05/19 14:50:00 EDT, Height, 89.5, kg, 10/01/19 20:04:00 EDT, Dry Weight Start Date: 10/05/19 Stop Date: 11/04/19 Status: Ordered insulin lispro 100 u/ml subcutaneous injection See Instructions, Sliding scale, subcutaneous, for one month, three times before meals daily 100-149(5 units), 150-199 (7 units), 200-249 (9 units), 250-299 (11 units) 300-349 (13 units), # 10 mL, 0 Refills, Maintenance, 10/05/19 15:26:00 EDT, Soluti... Start Date: 10/05/19 Status: Ordered lactulose 10 gm/15 ml oral syrup 45 mL = 30 Gm, By Mouth, 3 times a day, Titrate up to 2-3 bowel movements per day or until she has a bowel movement., 0 Refills, Maintenance, 08/24/20 10:35:00 EDT, Syrup, Partial fill upon patient request if the prescription is for a schedule II opio... Start Date: 08/24/20 Status: Ordered loratadine 10 mg oral tablet 10 mg, 1, tablet, By Mouth, Daily at bedtime, # 21 tablet, Refills 0, Tot. Refills 0, Maintenance, 10/05/19 15:25:00 EDT, Route to Pharmacy Electronically, [facility]/pharmacy #[id number], 144.78, cm, 10/05/19 14:50:00 EDT, Height, 89.5, kg, 10/01/19 20:04:00 EDT,... Start Date: 10/05/19 Stop Date: 10/26/19 Status: Ordered metoprolol 25 mg oral tablet 12.5 mg, 0.5, tablet, By Mouth, Daily, Please conctact office for apt. for further refills [phone], # 15 tablet, Refills 1, Tot. Refills 1, Maintenance, 08/03/20 11:29:00 EDT, Route to Pharmacy Electronically, [facility], september conv... Start Date: 08/03/20 Stop Date: 10/02/20 Status: Ordered Norvasc 2.5 mg oral tablet 2.5 mg, 1, tablet, By Mouth, Daily, Please conctact office for apt. for further refills [phone], #30 tablet, Refills 1, Tot. Refills 1, Maintenance, 08/03/20 11:28:00 EDT, Route to Pharmacy Electronically, [facility], y convert t... Start Date: 08/03/20 Status: Ordered rifAXIMin 550 mg oral tablet 1 tablet = 550 mg, By Mouth, 2 times a day, 0 Refills, Maintenance, 08/24/20 10:36:00 EDT, Tablet, Partial fill upon patient request if the prescription is for a schedule II opioid drug. Start Date: 08/24/20 Status: Ordered Sm Fiber Capsule TAKE 1 CAPSULE THREE TIMES DAILY IN THE MORNING, AT NOON, AND IN THE EVENING WITH MEALS Start Date: 12/15/18 Status: Ordered ticagrelor 90 mg oral tablet 1 tablet = 90 mg, By Mouth, 2 times a day, Please conctact office for apt. for further refills [phone], # 60 tablet, 1 Refills, Maintenance, 08/03/20 11:29:00 EDT, Tablet, [facility], may convert to 90 days at patient request., 14... Start Date: 08/03/20 Stop Date: 10/02/20 Status: Ordered traZODone 50 mg oral tablet 75 mg, 1.5, tablet, By Mouth, Daily at supper, Refills 0, Maintenance, 08/24/20 10:35:00 EDT, Partial fill upon patient request if the prescription is for a schedule II opioid drug. Start Date: 08/24/20 Status: Ordered Vitamin D3 2000 intl units oral tablet TAKE 1 TABLET BY MOUTH EVERY MORNING Start Date: 12/15/18 Status: Ordered Walker with wheels Walker with wheels, See Instructions, # 1 application, Refills 0, Tot. Refills 0, Maintenance, Walker with wheels, 02/17/19 13:57:47 EDT, Compound Start Date: 02/17/19 Status: Ordered Problem List Condition Effective Dates Status Health Status Inform ant Arthritis(Confirmed) 1 Active CKD (chronic kidney disease)(Confirmed) Active Cirrhosis(Confirmed) Active CAD (coronary artery disease)(Confirmed) Active Hyperlipidemia(Confirmed) Active HTN (hypertension)(Confirmed) Active Insomnia(Confirmed) Active DM2 (diabetes mellitus, type 2)(Confirmed) Active 1hands Results Orders for Microbiology Reports Name Date Urine Culture (URINE CULTURE) 08/17/20 Blood Culture 08/17/20 Blood Culture #2 08/17/20 Microbiology Reports TEST:Urine Culture STATUS:Auth (Verified) BODY SITE: SOURCE:URINE COLLECTED DATE/TIME:08/17/20 5:50 PM Urine Culture SPECIMEN DESCRIPTION : URINE SPECIAL REQUESTS : NONE CULTURE : NO GROWTH REPORT STATUS : FINAL 08/19/2020 TEST:Blood Culture, Second Order STATUS:Auth (Verified) BODY SITE: SOURCE:Blood COLLECTED DATE/TIME:08/17/20 5:40 PM Blood Culture, Second Order SPECIMEN DESCRIPTION : BLOOD NS SPECIAL REQUESTS : NONE CULTURE : NO GROWTH 5 DAYS. REPORT STATUS : FINAL 08/22/2020 TEST:Blood Culture STATUS:Auth (Verified) BODY SITE: SOURCE:Blood COLLECTED DATE/TIME:08/17/20 5:30 PM Blood Culture SPECIMEN DESCRIPTION : BLOOD NS SPECIAL REQUESTS : NONE CULTURE : NO GROWTH 5 DAYS. REPORT STATUS : FINAL 08/22/2020 Radiology Reports * Exam Date Time Procedure Performing Provider Status 08/20/20 3:31 PM Chest Portable Nilda Jean; Auth (Verified) Notes: (Chest Portable) Reason For Exam: pneumonia RESULT: Chest Portable Chest Portable REASON: COVID 19 pneumonia COMPARISON: 08/17/2020 FINDINGS: LUNGS AND PLEURA: Low lung volumes. Improved aeration of the lungs, with residual opacities most notably in the left upper lung laterally and in the right lung base. Normal pulmonary vascularity. No pleural effusion. No pneumothorax. HEART, MEDIASTINUM AND ANIKET: Heart is normal in size. Normal upper mediastinal and hilar contour. BONES AND SOFT TISSUES: No acute abnormality. There are surgical clips in the right upper quadrant. IMPRESSION: Improving airspace opacities, in keeping with COVID 19 pneumonia. I have personally reviewed the images and I agree with this report. WSN: [id number] Ordering Physician: Jennifer Parks Dictated By: Torsten Guzman MD Dictated Date/Time: 08/20/20 3:50 pm Reviewed By: Robert Pierson MD Signed By: Robert Pierson MD Signed Date/Time: 08/20/20 3:55 pm Transcribed By: KEYSHA Transcribed Date/Time: 08/20/20 3:47 pm * Exam Date Time Procedure Performing Provider Status 08/17/20 9:24 PM Chest Portable Katie Rodríguez; Kraig h (Verified) Notes: (Chest Portable) Reason For Exam: Other: RESULT: Chest Portable Chest Portable Hx of Present Illness: Pt coming from [facility]. Pt had unwitnessed fall a few days ago and is now complaining of left sided pain and reports if increased AMS and seeing things on the wall. Hx of dementia, sami speaking only; Reason: Other:; Clinical Question(s): Trauma COMPARISON: 08/10/2020 FINDINGS: LINES AND TUBES: None. LUNGS AND PLEURA: Opacities are present in both lungs predominantly in the periphery of the midlung zones and the in the lower lung zones. No large pleural effusion. HEART, MEDIASTINUM AND ANIKET: Unchanged. BONES AND SOFT TISSUES: No acute abnormality. IMPRESSION: Opacities in both lungs could be related to atypical pneumonia, pneumonitis or pulmonary infarct inthe appropriate clinical setting. A [place] message has been communicated via the [employer] system on 08/17/2020 9:33 PM, Message ID [id number]. WSN: [id number] Ordering Physician: Edvin Carroll Dictated By: Jasvir De Luna MD Dictated Date/Time: 08/17/20 9:33 pm Reviewed By: Jasvir De Luna MD Signed By: Jasvir De Luna MD Signed Date/Time: 08/17/20 9:33 pm Transcribed By: KEYSHA Transcribed Date/Time: 08/17/20 9:29 pm Vital Signs Most recent to oldest [Reference Range]: 1 2 3 Height 154 cm (08/24/20 12:54 PM) 154 cm (08/24/20 8:04 AM) 154 cm (08/23/20 1:21 PM) Weight 70.5 kg (08/18/20 12:21 AM) 70.5 kg (08/18/20 12:00 AM) Oxygen Saturation [94-100 %] 100 % (08/24/20 12:54 PM) 100 % (08/24/20 8:04 AM) 100 % (08/23/20 7:00 PM) Pulse Rate [55-90 bpm] 67 bpm (08/24/20 12:54 PM) 79 bpm (08/24/20 8:04 AM) 78 bpm (08/23/20 7:00 PM) Body Mass Index [18.5-24.99] 29.73 *H* (08/18/20 12:21 AM) Blood Pressure [90-138/55-84 mm Hg] 144/59mm Hg *H* (08/24/20 12:54 PM) 138/55mm Hg (08/24/20 8:04 AM) 142/55mm Hg *H* (08/23/20 7:00 PM) Respiratory Rate [16-30 br/min] 18 br/min (08/24/20 12:54 PM) 18 br/min (08/24/20 8:04 AM) 18 br/min (08/23/20 7:00 PM) Temperature [96.8-100.4 DegF] 98.5 DegF (08/24/20 12:54 PM) 98.6 DegF (08/24/20 8:04 AM) 98.4 DegF (08/24/20 2:00 AM) Liters per Minute 0 L/min (08/22/20 7:49 PM) Mode of Delivery (Oxygen) Room air (08/24/20 12:54 PM) Room air (08/24/20 8:04 AM) Room air (08/23/20 7:00 PM) Blood pressure sites Arm, left (08/24/20 12:54 PM) Arm, left (08/24/20 8:04 AM) Arm, left (08/23/20 7:00 PM) Temperature Route Oral (08/24/20 12:54 PM) Oral (08/24/20 8:04 AM) Oral (08/24/20 2:00 AM) Dry Weight 70.5 kg (08/18/20 12:21 AM) Weight Obtained Via Bed scale (08/18/20 12:00 AM) Social History Social History Type Response Smoking Status Never (less than 100 in lifetime) entered on: 07/22/19 Sex
--- OUTSIDE RECORDS SUMMARY | 2023-03-19 20:02 | XMS_ITS | Continuity of Care Document ---
Author Name Unknown Organization [facility] Address [address] [place] [id number]- Care Team Providers Care Public Relations Representative Name Role Phone Boris Cruz MD Primary Care Physician Encounter [facility] [id number] Date(s): 08/31/20 - 09/30/20 [facility] [address] [place] [id number] Attending Physician: Mihaela Hawk Admitting Physician: Mihaela Hawk Referring Physician: AdmtrMihaela Allergies, Adverse Reactions, Alerts Substance Reaction Severity [...] 0 Refills, Maintenance, 10/05/19 15:24:00 EDT, Nasal [place], [facility]/pharmacy #[id number], 1 sprays Nares, Both 2 times [...] 0 Refills, Maintenance, 10/05/19 15:24:00 EDT, Injection, [facility]/pharmacy #[id number], 144.78, cm, 10/05/19 14:50:00 EDT, Height, [...] 10/05/19 15:25:00 EDT, Route to Pharmacy Electronically, [facility]/pharmacy #[id number], 144.78, cm, 10/05/19 14:50:00 EDT, Height, 89.5, kg, 10/01/19 20:04:00 EDT,... Start Date: 10/05/19 Stop Date: 10/26/19 Status: Ordered metoprolol 25 mg oral tablet 12.5 mg, 0.5, tablet, By Mouth, Daily, Please conctact office for apt. for further refills [phone], # 15 tablet, Refills 1, Tot. Refills 1, Maintenance, 08/03/20 11:29:00 EDT, Route to Pharmacy Electronically, [facility], september conv... Start Date: 08/03/20 Stop Date: 10/02/20 Status: Ordered Norvasc 2.5 mg oral tablet 2.5 mg, 1, tablet, By Mouth, Daily, Please conctact office for apt. for further refills [phone], #30 tablet, Refills 1, Tot. Refills 1, Maintenance, 08/03/20 11:28:00 EDT, Route to Pharmacy Electronically, [facility], y convert t... Start Date: 08/03/20 [...] conctact office for apt. for further refills [phone], # 60 tablet, 1 Refills, Maintenance, 08/03/20 11:29:00 EDT, Tablet, [facility], may convert to 90 days at [...] DM2 (diabetes mellitus, type 2)(Confirmed) Active 1hands Social History Social History Type Response Smoking Status Never (less than 100 in lifetime) entered on: 07/22/19 Sex
--- OUTSIDE RECORDS SUMMARY | 2023-03-19 20:02 | XMS_ITS | Continuity of Care Document ---
Author Name Unknown Organization [facility] ter Address [address] [place] [address]- Care Team Providers Care Tire [employer] Manager Name Role Phone Heber FRANKLIN, Kathy Primary Care Physician [phone] Encounter [facility] Date(s): 08/10/20 - 08/15/20 [facility] [address] [place] [id number] Discharge Disposition: A-Transfer SNF Attending Physician: Barbie FRANKLIN, Tonio Conley Admitting Physician: Sha Morrison DO Referring Physician: Not on Staff, Referring MD Allergies, Adverse Reactions, Alerts Substance Reaction Severity Status NKA Active Immunizations Not Given Vaccine Date Status Refusal Reason pneumococcal 13-valent vaccine 12/16/18 Not Given Patient Refuses Medications Acetaminophen Tablet 650 mg, Tablet, By Mouth, Every 4 hours, PRN for Pain , Mild, Temperature Greater than 100.5, Routine, 08/10/20 21:36:00 EDT Start Date: 08/10/20 Stop Date: 08/15/20 Status: Discontinued aspirin 81 mg oral delayed release tablet TAKE 1 TABLET BY MOUTH EVERY MORNING Start Date: 12/15/18 Status: Ordered Augmentin 875 mg-125 mg oral tablet 1 tablet, By Mouth, Every 12 hours, for 1 days, # 2 tablet, 0 Refills, Acute 08/16/20 11:47:00 EDT,08/15/20 11:47:00 EDT, Tablet, Partial fill upon patient request if the prescription is for a schedule II opioid drug. Start Date: 08/15/20 Stop Date: 08/16/20 Status: Ordered bisacodyl 5 mg oral delayed [...] 0 Refills, Maintenance, 10/05/19 15:29:00 EDT, Tablet, [facility]/pharmacy #[id number], 144.78, cm, 10/05/19 14:50:00 EDT, Height, 89.5, kg, 10/01/19 20:04:00 EDT,Dry Weight Start Date: 10/05/19 Stop Date: 11/04/19 Status: Ordered Flonase 50 mcg/inh nasal spray 1 sprays = 50 mcg, Nares, Both, 2 times a day, # 16 Gm, 0 Refills, Maintenance, 10/05/19 15:24:00 EDT, Nasal [place], [facility]/pharmacy #[id number], 1 sprays Nares, Both 2 [...] 0 Refills, Maintenance, 10/05/19 15:24:00 EDT, Injection, [facility]/pharmacy #[id number], 144.78, cm, 10/05/19 14:50:00 EDT, [...] mL, 0 Refills, Maintenance, 10/05/19 15:26:00 EDT, [place]... Start Date: 10/05/19 Status: Ordered lactulose 10 gm/15 ml oral syrup TAKE 15MLS ONCE DAILY Start Date: 12/15/18 Status: Ordered Linzess 290 mcg oral capsule TAKE 1 CAPSULE BY MOUTH EVERY MORNING Start Date: 08/10/20 Status: Ordered loratadine 10 mg oral tablet 10 mg, 1, tablet, By Mouth, Daily at bedtime, # 21 tablet, Refills 0, Tot. Refills 0, Maintenance, 10/05/19 15:25:00 EDT, Route to Pharmacy Electronically, [facility]/pharmacy #[id number], 144.78, cm, 10/05/19 14:50:00 EDT, Height, 89.5, kg, 10/01/19 20:04:00 EDT,... Start Date: 10/05/19 Stop Date: 10/26/19 Status: Ordered metoprolol 25 mg oral tablet 12.5 mg, Tablet, By Mouth, 08/15/20 9:00:00 EDT Start Date: 08/15/20 Stop Date: 08/15/20 Status: Completed metoprolol 25 mg oral tablet 12.5 mg, 0.5, tablet, By Mouth, Daily, Please conctact office for apt. for further refills [phone], # 15 tablet, Refills 1, Tot. Refills 1, Maintenance, 08/03/20 11:29:00 EDT, Route to Pharmacy Electronically, [facility], september conv... Start Date: 08/03/20 Stop Date: 10/02/20 Status: Ordered Norvasc 2.5 mg oral tablet 2.5 mg, 1, tablet, By Mouth, Daily, Please conctact office for apt. for further refills [phone], #30 tablet, Refills 1, Tot. Refills 1, Maintenance, 08/03/20 11:28:00 EDT, Route to Pharmacy Electronically, [facility], y convert t... Start Date: 08/03/20 Status: Ordered Norvasc 5 mg oral tablet 2.5 mg, Tablet, By Mouth, 08/15/20 9:00:00 EDT Start Date: 08/15/20 Stop Date: 08/15/20 Status: Completed Sm Fiber Capsule TAKE 1 CAPSULE THREE TIMES DAILY IN THE MORNING, AT NOON, AND IN THE EVENING WITH MEALS Start Date: 12/15/18 Status: Ordered ticagrelor 90 mg oral tablet 1 tablet = 90 mg, By Mouth, 2 times a day, Please conctact office for apt. for further refills [phone], # 60 tablet, 1 Refills, Maintenance, 08/03/20 11:29:00 EDT, Tablet, [facility], may convert to 90 days at patient request., 14... Start Date: 08/03/20 Stop Date: 10/02/20 Status: Ordered traZODone 50 mg oral tablet TAKE 1 TABLET BY MOUTH AT BEDTIME Start Date: 12/15/18 Status: Ordered Vitamin D3 2000 intl units [...] (diabetes mellitus, type 2)(Confirmed) Active 1hands Results Radiology Reports * Exam Date Time Procedure Performing Provider Status 08/10/20 12:02 PM Chest Portable Tonja Schafer; Auth (Verified) Notes: (Chest Portable) Reason For Exam: Shortness of Breath RESULT: Chest Portable Chest Portable HX OF PRESENT ILLNESS: Pt is coming from home for general malaise, pt reported to EMS that she became Covid + 1 week ago.; Reason: Shortness of Breath; Clinical Question(s): CHF / CHF COMPARISON: 04/22/2020 FINDINGS: LINES AND TUBES: None. LUNGS AND PLEURA: Low lung volumes with hazy multifocal bilateral airspace opacity most notably at the medial right upper lung. No pleural effusion. No pneumothorax. HEART, MEDIASTINUM AND ANIKET: Heart is normal in size. Aorta is mildly calcified. BONES AND SOFT TISSUES: No acute abnormality. IMPRESSION: Hazy multifocal airspace opacity concerning for multifocal pneumonia. WSN: [id number] Ordering Physician: Shante Villa Dictated By: Robert Pierson MD Dictated Date/Time: 08/10/20 12:08 p Reviewed By: Robert Pierson MD Signed By: Robert Pierson MD Signed Date/Time: 08/10/20 12:08 pm Transcribed By: KEYSHA Transcribed Date/Time: 08/10/20 12:07 pm Vital Signs Most recent to oldest [Reference Range]: 1 2 3 Height 140 cm (08/15/20 7:38 AM) 140 cm (08/13/20 5:01 PM) 140 cm (08/13/20 4:25 PM) Weight 71.5 kg (08/11/20 1:38 AM) Oxygen Saturation [94-100 %] 97 % (08/15/20 7:38 AM) 99 % (08/15/20 3:00 AM) 96 % (08/15/20 12:00 AM) Pulse Rate [55-90 bpm] 83 bpm (08/15/20 8:46 AM) 83 bpm (08/15/20 7:38 AM) 77 bpm (08/15/20 3:00 AM) Body Mass Index [18.5-24.99] 36.48 *>HHI* (08/11/20 1:38 AM) Blood Pressure [90-138/55-84 mm Hg] 132/60mm Hg (08/15/20 8:46 AM) 132/60mm Hg (08/15/20 8:45 AM) 132/60mm Hg (08/15/20 7:38 AM) Respiratory Rate [16-30 br/min] 18 br/min (08/15/20 7:38 AM) 18 br/min (08/15/20 3:00 AM) 20 br/min (08/15/20 2:02 AM) Temperature [96.8-100.4 DegF] 97.6 DegF (08/15/20 7:38 AM) 97.8 DegF (08/15/20 3:00 AM) 98.4 DegF (08/15/20 12:00 AM) Mode of Delivery (Oxygen) Room air (08/15/20 7:38 AM) Room air (08/15/20 3:00 AM) Room air (08/15/20 12:00 AM) Blood pressure sites Arm, right (08/15/20 7:38 AM) Arm, right (08/15/20 3:00 AM) Arm, right (08/15/20 12:00 AM) Temperature Route Oral (08/15/20 7:38 AM) Oral (08/15/20 3:00 AM) Oral (08/15/20 12:00 AM) Dry Weight 71.5 kg (08/11/20 1:38 AM) Weight Obtained Via Bed scale (08/11/20 1:38 AM) Dry Weight Obtained Via Bed scale (08/11/20 1:38 AM) Social History Social History Type Response Smoking Status Never (less than 100 in lifetime) entered on: 07/22/19 Sex
--- OUTSIDE RECORDS SUMMARY | 2023-03-19 20:02 | XMS_ITS | Continuity of Care Document ---
Author Name Unknown Organization [facility] ter Address [address] [place] [address]- Care Team Providers Care Glass Vial Bending Conveyor Feeder Name Role Phone Heber FRANKLIN, Kathy Primary Care Physician [phone] Encounter [facility] [place] Date(s): 11/29/20 - 01/12/[address] [address] Attending Physician: Temitope Ortiz MD Admitting Physician: Temitope Ortiz MD Referring Physician: Temitope Ortiz MD Allergies, Adverse Reactions, Alerts Substance Reaction Severity Status NKA Active Immunizations Not Given Vaccine Date Status Refusal Reason pneumococcal 13-valent vaccine 12/16/18 Not Given Patient Refuses Medications Albuterol (Eqv-ProAir HFA) 90 mcg/inh inhalation aerosol 2 puffs, Inhalation, Every 6 hours, 0 Refills, Maintenance, 12/01/20 4:54:00 EDT, Partial fill uponpatient request if the prescription is for a schedule II opioid drug. Start Date: 12/01/20 Status: Ordered aspirin 81 mg oral delayed release tablet TAKE 1 TABLET BY MOUTH EVERY MORNING Start Date: 12/15/18 Status: Ordered cetirizine 5 mg oral tablet = 5 mg, By Mouth, Daily, # 30 tablet, 0 Refills, Maintenance, 12/01/20 4:54:00 EDT, Tablet, Partialfill upon patient request if the prescription is for a schedule II opioid drug. Start Date: 12/01/20 Status: Ordered escitalopram 5 mg oral tablet 1 tablet = 5 mg, By Mouth, Daily, # 30 tablet, 0 Refills, Maintenance, 12/01/20 4:52:00 EDT, Tablet, Partial fill upon patient request if the prescription is for a schedule II opioid drug. Start Date: 12/01/20 Status: Ordered famotidine 20 mg oral tablet TAKE 1 TABLET BY MOUTH EVERY DAY Start Date: 08/10/20 Status: Ordered ferrous fumarate 300 mg oral tablet 1 tablet = 300 mg, By Mouth, Daily, # 30 tablet, 0 Refills, Maintenance, 10/05/19 15:29:00 EDT, Tablet, [facility]/pharmacy #[id number], 144.78, cm, 10/05/19 14:50:00 EDT, Height, 89.5, kg, 10/01/19 20:04:00 EDT,Dry Weight Start Date: 10/05/19 Stop Date: 11/04/19 Status: Ordered fluticasone 50 mcg/inh nasal spray 1 sprays, Nares, Both, 2 times a day, # 16 Gm, 0 Refills, Maintenance, 12/01/20 4:52:00 EDT, [place],Partial fill upon patient request if the prescription is for a schedule II opioid drug. Start Date: 12/01/20 Status: Ordered Insulin Glargine Inj 0.24 mL = 24 units, Subcutaneous Injection, Daily in AM, 0 Refills, Maintenance, 10/02/20 13:50:00 EDT, Injection, Partial fill upon patient request if the prescription is for a schedule II opioid drug. Start Date: 10/02/20 Status: Ordered insulin lispro 100 u/ml subcutaneous injection = 18 units, Subcutaneous Injection, Daily before breakfast, # 30 mL, 0 Refills, Maintenance, 12/01/20 4:52:00 EDT, [place], Partial fill upon patient request if the prescription is for a schedule IIopioid drug. Start Date: 12/01/20 Status: Ordered insulin lispro 100 u/ml subcutaneous injection = 16 units, Subcutaneous Injection, Daily before dinner, # 30 mL, 0 Refills, Maintenance, 12/01/20 4:53:00 EDT, Solution, Partial fill upon patient request if the prescription is for a schedule II opioid drug. Start Date: 12/01/20 Status: Ordered lactulose 10 gm/15 ml oral [...] opioid drug. Start Date: 12/05/20 Status: Ordered Metoprolol Tartrate 25 mg oral tablet 0.5 tablet, By Mouth, Daily, CONTACT OFFICE FOR FURTHER REFILLS [phone], # 15 tablet, 0 Refills, Maintenance, 10/26/20 12:04:00 EDT, [id number], 128, cm, 10/02/20 15:05:00 EDT, Height, 62, kg, 09/27/20 0:49:00 EDT, Dry Weight Start Date: 10/26/20 Status: Ordered Norvasc 2.5 mg oral tablet 2.5 mg, 1, tablet, By Mouth, Daily, Please conctact office for apt. for further refills [phone], #30 tablet, Refills 1, Tot. Refills 1, Maintenance, 08/03/20 11:28:00 EDT, Route to Pharmacy Electronically, [facility], y convert t... Start Date: [...] conctact office for apt. for further refills [phone], # 60 tablet, 1 Refills, Maintenance, 08/03/20 11:29:00 EDT, Tablet, [facility], may convert to 90 days at patient request., 14... Start Date: 08/03/20 Stop Date: 10/02/20 Status: Ordered traZODone 50 mg oral tablet 50 mg, 1, tablet, By Mouth, Daily at supper, Refills 0, Maintenance, 08/24/20 10:35:00 EDT, Partialfill upon patient request if the prescription is for a schedule II opioid drug. Start Date: 08/24/20 Status: Ordered Problem List Condition Effective Dates [...]
--- OUTSIDE RECORDS SUMMARY | 2023-03-19 20:02 | XMS_ITS | Continuity of Care Document ---
Author Name Unknown Organization [facility] Address [address] [place] [address]- Care Team Providers Care Design Verification Engineer Name Role Phone Heber FRANKLIN, Kathy Primary Care Physician Encounter [facility] [id number] Date(s): 06/14/21 - 07/14/21 [facility] [address] [place] [address]- Attending Physician: Mihaela Hawk Admitting Physician: AdmtrMihaela Referring Physician: AdmtrMihaela Allergies, Adverse Reactions, Alerts No Known Allergies [...] opioid drug. Start Date: 12/01/20 Status: Ordered enalapril 5 mg oral tablet 5 mg, 1, tablet, By Mouth, Daily, # 30 tablet, Refills 0, Maintenance, 06/04/21 17:05:00 EST, Partial fill upon patient request if the prescription is for a schedule II opioid drug. Start Date: 06/04/21 Status: Ordered escitalopram 5 mg oral tablet [...] 0 Refills, Maintenance, 10/05/19 15:29:00 EDT, Tablet, [facility]/pharmacy #[id number], 144.78, cm, 10/05/19 14:50:00 EDT, Height, 89.5, kg, 10/01/19 20:04:00 EDT,Dry Weight Start Date: 10/05/19 Stop Date: 11/04/19 Status: Ordered fluticasone 50 mcg/inh nasal spray 1 sprays, Nares, Both, 2 times a day, # 16 Gm, 0 Refills, Maintenance, 12/01/20 4:52:00 EDT, [place],Partial fill upon patient request if the prescription [...] Ordered insulin lispro 100 u/ml subcutaneous injection 14 -16 units, Subcutaneous Injection, 3 times a day before meals, # 30 mL, 0 Refills, Maintenance, 12/01/20 [...] opioid drug. Start Date: 12/05/20 Status: Ordered Norvasc 2.5 mg oral tablet 2.5 mg, 1, tablet, By Mouth, Daily, Please conctact office for apt. for further refills [phone], #30 tablet, Refills 1, Tot. Refills 1, Maintenance, 08/03/20 11:28:00 EDT, Route to Pharmacy Electronically, [facility], y convert t... Start Date: 08/03/20 Status: Ordered ondansetron 4 mg oral tablet, disintegrating 1 [...] conctact office for apt. for further refills [phone], # 60 tablet, 1 Refills, Maintenance, 08/03/20 11:29:00 EDT, Tablet, [facility], may convert to 90 days [...] Date: 06/04/21 Status: Ordered Problem List Condition Effective Dates [...]
--- OUTSIDE RECORDS SUMMARY | 2023-03-19 20:02 | XMS_ITS | Continuity of Care Document ---
Author Name Unknown Organization [facility] ter Address [address] [place] [address]- Care Team Providers Care Line Decorator Name Role Phone Giuliano FRANKLIN, Luis Fernando Haines Primary Care Physician [place] [facility] [place] Date(s): 11/05/19 - 12/11/[address] [address] Attending Physician: Forrest Pace MD Admitting Physician: Forrest Pace MD Referring Physician: Forrest Pace MD Allergies, Adverse Reactions, Alerts Substance Reaction [...] FOR DIARRHEA Start Date: 12/15/18 Status: Ordered enalapril 5 mg oral tablet 5 mg, 1, tablet, By Mouth, Daily, # 30 tablet, Refills 11, Tot. Refills 11, Maintenance, 07/28/19 10:09:00 EDT, Route to Pharmacy Electronically, [facility], may convert to 90daysat patient request, 127, cm, 07/22/19 11:16:00 EDT,... Start Date: 07/28/19 Status: Ordered ferrous fumarate 300 mg oral tablet 1 tablet = 300 mg, By Mouth, Daily, # 30 tablet, 0 Refills, Maintenance, 10/05/19 15:29:00 EDT, Tablet, [facility]/pharmacy #[id number], 144.78, cm, 10/05/19 14:50:00 EDT, Height, 89.5, kg, 10/01/19 20:04:00 EDT,Dry Weight Start Date: 10/05/19 Stop Date: 11/04/19 Status: Ordered ferrous sulfate 325 mg oral tablet 1 tablet = 325 mg, By Mouth, Daily, 0 Refills, Maintenance, 10/29/19 23:13:00 EDT Start Date: 10/29/19 Status: Ordered Flonase 50 mcg/inh nasal spray 1 sprays = 50 mcg, Nares, Both, 2 times a day, # 16 Gm, 0 Refills, Maintenance, 10/05/19 15:24:00 EDT, Nasal [place], [facility]/pharmacy #[id number], 1 sprays Nares, Both 2 times a day, 144.78, cm, 10/05/19 14:50:00 EDT, Height, 89.5, kg, 10/01/19 20:04:00 EDT, Dry... Start Date: 10/05/19 Status: Ordered insulin glargine 100 u/ml subcutaneous solution = 20 units, Subcutaneous Injection, Daily at bedtime, # 10 mL, 0 Refills, Maintenance, 10/05/19 15:24:00 EDT, Injection, [facility]/pharmacy #[id number], 144.78, cm, 10/05/19 [...] ONCE DAILY Start Date: 12/15/18 Status: Ordered loratadine 10 mg oral tablet 10 mg, 1, tablet, By Mouth, Daily at bedtime, # 21 tablet, Refills 0, Tot. Refills 0, Maintenance, 10/05/19 15:25:00 EDT, Route to Pharmacy Electronically, [facility]/pharmacy #[id number], 144.78, cm, 10/05/19 14:50:00 EDT, Height, 89.5, kg, 10/01/19 20:04:00 EDT,... Start Date: 10/05/19 Stop Date: 10/26/19 Status: Ordered metoprolol 25 mg oral tablet 12.5 mg, 0.5, tablet, By Mouth, Daily, # 15 tablet, Refills 11, Tot. Refills 11, Maintenance, 07/28/19 10:09:00 EDT, Route to Pharmacy Electronically, [facility], may convert to 90 days at patient request, 127, cm, 07/22/19 11:16:0... Start Date: 07/28/19 Stop Date: 07/22/20 Status: Ordered Norvasc 2.5 mg oral tablet 2.5 mg, 1, tablet, By Mouth, Daily, # 30 tablet, Refills 11, Tot. Refills 11, Maintenance, 07/27/2009:09:00 EDT, Route to Pharmacy Electronically, [facility], y convert to 90 days at patient request, 127, cm, 07/22/19 11:16:00 EDT... Start Date: 07/28/19 Status: Ordered Reglan 5 mg oral tablet 1 tablet = 5 mg, By Mouth, 4 times a day, PRN Nausea & Vomiting, # 120 tablet, 3 Refills, Acute07/27/20 10:11:00 EDT, 07/28/19 10:09:00 EDT, Tablet, [facility], 127, cm, 07/22/19 11:16:00 EDT, Height, 78.8, kg, 07/10/19 10:13:00 E... Start Date: 07/28/19 Stop Date: 07/27/20 Status: Ordered Sm Fiber Capsule TAKE 1 CAPSULE THREE TIMES DAILY IN THE MORNING, AT NOON, AND IN THE EVENING WITH MEALS Start Date: 12/15/18 Status: Ordered ticagrelor 90 mg oral tablet 1 tablet = 90 mg, By Mouth, 2 times a day, # 60 tablet, 11 Refills, Maintenance, 07/28/19 10:09:00 EDT, Tablet, [facility], may convert to 90 days at patient request., 127, cm, 07/22/19 11:16:00 EDT, Height, 78.8, kg, 07/10/19 10:1... Start Date: 07/28/19 Stop Date: 07/22/20 Status: Ordered traZODone 50 mg oral tablet [...]
--- OUTSIDE RECORDS SUMMARY | 2023-03-19 20:02 | XMS_ITS | Continuity of Care Document ---
Author Name Unknown Organization [facility] Address [address] [place] [address]- Care Team Providers Care Processes Chemical Design Engineer Name Role Phone Heber FRANKLIN, Kathy Primary Care Physician Encounter [facility] [place] Date(s): 07/12/20 - 08/11/20 [facility] [address] [place], [place] [address] Allergies, Adverse Reactions, Alerts Substance Reaction Severity [...] 5 mg, 1, tablet, By Mouth, Daily, Please conctact office for apt. for further refills [phone], # 30 tablet, Refills 1, Tot. Refills 1, Maintenance, 08/03/20 11:28:00 EDT, Route to Pharmacy Electronically, [facility], september convert t... Start Date: 08/03/20 Status: Ordered famotidine 20 mg oral tablet TAKE 1 TABLET BY MOUTH EVERY DAY Start Date: 08/10/20 Status: Ordered ferrous fumarate 300 mg oral tablet 1 tablet = 300 mg, By Mouth, Daily, # 30 tablet, 0 Refills, Maintenance, 10/05/19 15:29:00 EDT, Tablet, [facility]/pharmacy #[id number], 144.78, cm, 10/05/19 14:50:00 EDT, [...] 0 Refills, Maintenance, 10/05/19 15:24:00 EDT, Nasal [place], [facility]/pharmacy #[id number], 1 sprays Nares, Both 2 times [...] 0 Refills, Maintenance, 10/05/19 15:24:00 EDT, Injection, [facility]/pharmacy #[id number], 144.78, cm, 10/05/19 14:50:00 EDT, [...] 10/05/19 15:25:00 EDT, Route to Pharmacy Electronically, [facility]/pharmacy #[id number], 144.78, cm, 10/05/19 14:50:00 EDT, Height, 89.5, kg, 10/01/19 20:04:00 EDT,... Start Date: 10/05/19 Stop Date: 10/26/19 Status: Ordered metoprolol 25 mg oral tablet 12.5 mg, 0.5, tablet, By Mouth, Daily, Please conctact office for apt. for further refills [phone], # 15 tablet, Refills 1, Tot. Refills 1, Maintenance, 08/03/20 11:29:00 EDT, Route to Pharmacy Electronically, [facility], september conv... Start Date: 08/03/20 Stop Date: 10/02/20 Status: Ordered Norvasc 2.5 mg oral tablet 2.5 mg, 1, tablet, By Mouth, Daily, Please conctact office for apt. for further refills [phone], #30 tablet, Refills 1, Tot. Refills 1, Maintenance, 08/03/20 11:28:00 EDT, Route to Pharmacy Electronically, [facility], y convert t... Start Date: 08/03/20 Status: Ordered Sm Fiber Capsule TAKE 1 CAPSULE THREE TIMES DAILY IN THE MORNING, AT NOON, AND IN THE EVENING WITH MEALS Start Date: 12/15/18 Status: Ordered ticagrelor 90 mg oral tablet 1 tablet = 90 mg, By Mouth, 2 times a day, Please conctact office for apt. for further refills [phone], # 60 tablet, 1 Refills, Maintenance, 08/03/20 11:29:00 EDT, Tablet, [facility], may convert to 90 days [...]
--- OUTSIDE RECORDS SUMMARY | 2023-03-19 20:02 | XMS_ITS | Continuity of Care Document ---
Author Name Unknown Organization [facility] Address [address] [place] [address]- Care Team Providers Care Aids Counselor Name Role Phone Kathy Buck MD Primary Care Physician Encounter [facility] [id number] Date(s): 05/13/22 - 08/24/22 [facility] [address] [place] [address]- Attending Physician: Scott Nagy MD Admitting Physician: Scott Nagy MD Referring Physician: Kathy Buck MD Allergies, Adverse Reactions, Alerts No Known Allergies Immunizations Given and Recorded Vaccine Date Status Refusal Reason SARS-CoV-2 mRNA ([id number]) vax 07/09/21 Recorded SARS-CoV-2 (COVID-19) Ad26 vaccine 10/15/20 Record ed [...] opioid drug. Start Date: 06/04/21 Status: Ordered aspirin 81 mg oral delayed [...] 0 Refills, Maintenance, 10/05/19 15:29:00 EDT, Tablet, [facility]/pharmacy #[id number], 144.78, cm, 10/05/19 14:50:00 EDT, Height, 89.5, kg, 10/01/19 20:04:00 EDT,Dry Weight Start Date: 10/05/19 Stop Date: 11/04/19 Status: Ordered fluticasone 50 mcg/inh nasal spray 1 sprays, Nares, Both, 2 times a day, # 16 Gm, 0 Refills, Maintenance, 12/01/20 4:52:00 EDT, [place],Partial fill upon patient request if the prescription is for a schedule II opioid drug. Start Date: 12/01/20 Status: Ordered insulin glargine 100 units/mL subcutaneous solution = 15 units, Subcutaneous Injection, Daily in AM, # 3.6 mL, 0 Refills, Maintenance, 03/08/22 13:57:00 EDT, Injection, [facility], Partial fill upon patient request if [...] II opio... Start Date: 08/24/20 Status: Ordered Linzess 145 mcg oral capsule See Instructions, [facility], # 30 capsule, 5 Refills, Maintenance, 08/03/22 10:00:00 EDT, [id number], 144.8, cm, 04/14/22 12:40:00 EST, Height, 67, kg, 03/04/22 21:45:00 EDT, Dry Weight Start Date: 08/03/22 Status: Ordered MiraLax oral powder for reconstitution = 17 Gm, By Mouth, 2 times a day before breakfast and dinne, dissolve in water before taking, # 527Gm, 11 Refills, Maintenance, 05/28/21 13:46:00 EST, REC Powder, [facility]/pharmacy #[id number], Partial fill upon patient request if the prescription is for a sche... Start Date: 05/28/21 Status: Ordered Norvasc 2.5 mg oral tablet 2.5 mg, 1, tablet, By Mouth, Daily, Please conctact office for apt. for further refills [phone], #30 tablet, Refills 1, Tot. Refills 1, Maintenance, 08/03/20 11:28:00 EDT, Route to Pharmacy Electronically, [facility], y convert t... Start [...] opioid drug. Start Date: 08/24/20 Status: Ordered traZODone 50 mg oral tablet [...] 10/20/22 9:58:00 EDT, Route to Pharmacy Electronically, [facility]/pharmacy #[id number], Partial fill upon patient request if the prescription is for a schedule II o... Start Date: 10/20/22 Stop Date: 04/18/23 Status: Ordered Vitamin D3 [...] (diabetes mellitus, type 2) Confirmed Active 1hands Social History Social History Type Response Smoking Status Never (less than 100 in lifetime) entered on: 06/27/21 Sex Female Patient Care team information Care Team Personnel Name: Aster Pena RN Position: [facility] RN Member Role: Primary Care Nurse Name: Dunia Phillip RN Position: [facility] RN Member Role: Primary Care Nurse Name: Lisette Trejo RN Position: [facility] RN Member Role: Primary Care Nurse Name: Jessica Canseco RN Position: [facility] RN Member Role: Primary Care Nurse Name: Shauna Le RN Position: [facility] SN RN Member Role: Primary Care Nurse Name: Erica rAcher RN Position: [facility] RN Supv Member Role: Primary Care Nurse Name: Vickie Lyons Position: [facility] Outreach Member Role: Lifetime Consulting Physician Name: Martine Carr RN Position: [facility] RN Member Role: Primary Care Nurse Name: Indira Monsalve RN Position: [facility] RN Member Role: Primary Care Nurse Name: Lorne Mcmanus RN Position: [facility] RN Member Role: Primary Care Nurse Name: Marisela Lobo LPN Position: [facility] RN Member Role: Primary Care Nurse Name: Mp Zarco RN Position: [facility] RN Member Role: Primary Care Nurse Name: Kathy Buck MD Position: [facility] Outreach Member Role: PCP Address: Address: [address] [place] [address] Name: Blayne Hughes RN Position: [facility] RN Member Role: Primary Care Nurse Name: Norma Art RN Position: [facility] RN Member Role: Primary Care Nurse Name: Mecca Boyd RN Position: [facility] RN Member Role: Primary Care Nurse Name: Katie Evans RN Position: [facility] RN Member Role: Primary Care Nurse Name: Leonor Mccormick RN Position: [facility] RN Member Role: Primary Care Nurse Name: Hortensia Garrison Position: [facility] Outreach Member Role: Lifetime Consulting Physician Name: Paige Morris RN Position: [facility] RN Member Role: Primary Care Nurse Name: Trini Starr RN Position: [facility] RN Member Role: Primary Care Nurse Name: Susie Monson RN Position: [facility] RN Member Role: Primary Care Nurse Name: Meena Castro RN Position: [facility] RN Member Role: Primary Care Nurse Care Team Related Persons Name: PAIGE TALBERT Address: [place] [address] Name: CAMRON VELASQUEZ Address: [place] [address] Name: ANTIONE SETHI Address: home [address] [place] [id number]
--- OUTSIDE RECORDS SUMMARY | 2023-03-19 20:02 | XMS_ITS | Continuity of Care Document ---
Author Name Unknown Organization [facility] Address [address] [place] [address]- Care Team Providers Care Cargo Service Supervisor Name Role Phone Luis Fernando Nobles MD Primary Care Physician [place] [facility] [place] 11[place] - 02/17/20 [facility] [address] [place] [address] [facility] Attending Physician: Forrest Pace MD Admitting Physician: Forrest Pace MD Referring Physician: Luis Fernando Nobles MD Allergies, Adverse Reactions, Alerts Substance Reaction [...] 07/28/19 10:09:00 EDT, Route to Pharmacy Electronically, [facility], may convert to 90daysat patient request, [...] 0 Refills, Maintenance, 10/05/19 15:24:00 EDT, Nasal [place], [facility]/pharmacy #[id number], 1 sprays Nares, [...] 07/28/19 10:09:00 EDT, Route to Pharmacy Electronically, [facility], may convert to 90 days at patient request, 127, cm, 07/22/19 11:16:0... Start Date: 07/28/19 Stop Date: 07/22/20 Status: Ordered Norvasc 2.5 mg oral tablet 2.5 mg, 1, tablet, By Mouth, Daily, # 30 tablet, Refills 11, Tot. Refills 11, Maintenance, 07/27/2009:09:00 EDT, Route to Pharmacy Electronically, [facility], y convert to 90 days at patient request, 127, cm, 07/22/19 11:16:00 EDT... Start Date: 07/28/19 Status: Ordered Reglan 5 mg oral tablet 1 tablet = 5 mg, By Mouth, 4 times a day, PRN Nausea & Vomiting, # 120 tablet, 3 Refills, Acute07/27/20 10:11:00 EDT, 07/28/19 10:09:00 EDT, Tablet, [facility], 127, cm, 07/22/19 11:16:00 EDT, Height, [...] 11 Refills, Maintenance, 07/28/19 10:09:00 EDT, Tablet, [facility], may convert to 90 days [...]
--- OUTSIDE RECORDS SUMMARY | 2023-03-19 20:02 | XMS_ITS | Continuity of Care Document ---
Author Name Unknown Organization [facility] Address [address] [place] [address]- Care Team Providers Care Oven Dumper Name Role Phone Giuliano FRANKLIN, Luis Fernando Haines Primary Care Physician Encounter 10/08/19 - 11/23/19 [facility] [address] [place] [address]- [facility] Discharge Disposition: CLIENT NO LONGER REQUIRES SKILLED CARE Allergies, Adverse Reactions, Alerts Substance Reaction Severity [...] 07/28/19 10:09:00 EDT, Route to Pharmacy Electronically, [facility], may convert to 90daysat patient [...] 0 Refills, Maintenance, 10/05/19 15:24:00 EDT, Nasal [place], [facility]/pharmacy #[id number], 1 sprays Nares, Both 2 times a day, 144.78, cm, 10/05/19 14:50:00 EDT, Height, 89.5, kg, 10/01/19 20:04:00 EDT, Dry... Start Date: 10/05/19 Status: Ordered insulin glargine 100 u/ml subcutaneous solution = 20 units, Subcutaneous Injection, Daily at bedtime, # 10 mL, 0 Refills, Maintenance, 10/05/19 15:24:00 EDT, Injection, [facility]/pharmacy #[id number], 144.78, cm, 10/05/19 14:50:00 EDT, [...] 10/05/19 15:25:00 EDT, Route to Pharmacy Electronically, [facility]/pharmacy #[id number], 144.78, cm, 10/05/19 14:50:00 EDT, Height, 89.5, kg, 10/01/19 20:04:00 EDT,... Start Date: 10/05/19 Stop Date: 10/26/19 Status: Ordered metoprolol 25 mg oral tablet 12.5 mg, 0.5, tablet, By Mouth, Daily, # 15 tablet, Refills 11, Tot. Refills 11, Maintenance, 07/28/19 10:09:00 EDT, Route to Pharmacy Electronically, [facility], may convert to 90 days at patient request, 127, cm, 07/22/19 11:16:0... Start Date: 07/28/19 Stop Date: 07/22/20 Status: Ordered Norvasc 2.5 mg oral tablet 2.5 mg, 1, tablet, By Mouth, Daily, # 30 tablet, Refills 11, Tot. Refills 11, Maintenance, 07/27/2009:09:00 EDT, Route to Pharmacy Electronically, [facility], y convert to 90 days at patient request, 127, cm, 07/22/19 11:16:00 EDT... Start Date: 07/28/19 Status: Ordered Reglan 5 mg oral tablet 1 tablet = 5 mg, By Mouth, 4 times a day, PRN Nausea & Vomiting, # 120 tablet, 3 Refills, Acute07/27/20 10:11:00 EDT, 07/28/19 10:09:00 EDT, Tablet, [facility], 127, cm, 07/22/19 11:16:00 EDT, [...] 11 Refills, Maintenance, 07/28/19 10:09:00 EDT, Tablet, [facility], may convert to 90 days [...]
--- OUTSIDE RECORDS SUMMARY | 2023-03-19 20:02 | XMS_ITS | Continuity of Care Document ---
Author Name Unknown Organization [facility] Address [address] [place] [address]- Care Team Providers Care Head Men'[employer] Tennis Coach Name Role Phone Kathy Buck MD Primary Care Physician Encounter [facility] [place] [facility] [place] [id number] Date(s): 11/22/20 - 12/22/20 [facility] [address] [place] [id number]- Attending Physician: Mihaela Hawk Admitting Physician: Mihaela Hawk Referring Physician: Mihaela Hawk Allergies, Adverse Reactions, Alerts Substance Reaction Severity [...] Refills, Maintenance, 10/05/19 15:29:00 EDT, Tablet, [facility]/pharmacy #[id number], 144.78, cm, 10/05/19 14:50:00 EDT, Height, 89.5, kg, 10/01/19 20:04:00 EDT,Dry Weight Start Date: 10/05/19 Stop Date: 11/04/19 Status: Ordered fluticasone 50 mcg/inh nasal spray 1 sprays, Nares, Both, 2 times a day, # 16 Gm, 0 Refills, Maintenance, 12/01/20 4:52:00 EDT, [place],Partial fill upon patient request if the prescription [...] Mouth, Daily, CONTACT OFFICE FOR FURTHER REFILLS [phone], # 15 tablet, 0 Refills, Maintenance, 10/26/20 12:04:00 EDT, [id number], 128, cm, 10/02/20 15:05:00 EDT, Height, 62, kg, 09/27/20 0:49:00 EDT, Dry Weight Start Date: 10/26/20 Status: Ordered Norvasc 2.5 mg oral tablet 2.5 mg, 1, tablet, By Mouth, Daily, Please conctact office for apt. for further refills [phone], #30 tablet, Refills 1, Tot. Refills 1, Maintenance, 08/03/20 11:28:00 EDT, Route to Pharmacy Electronically, [facility], y convert t... Start Date: 08/03/20 [...] conctact office for apt. for further refills [phone], # 60 tablet, 1 Refills, Maintenance, 08/03/20 11:29:00 EDT, Tablet, [facility], may convert to 90 days at [...]
--- OUTSIDE RECORDS SUMMARY | 2023-03-19 20:02 | XMS_ITS | Continuity of Care Document ---
Author Name Unknown Organization [facility] ter Address [address] [place] [address]- Care Team Providers Care Curer [employer] Name Role Phone Heber FRANKLIN, Kathy Primary Care Physician Encounter [facility] [place] Date(s): 12/09/20 - 12/09/[address] [address]- Discharge Disposition: A-D/C Home Attending Physician: Sandeep Carson DO Admitting Physician: Sandeep Carson DO Referring Physician: Not on Staff, Referring [...] opioid drug. Start Date: 12/01/20 Status: Ordered amLODIPine 5 mg oral tablet 2.5 mg, Tablet, By Mouth, Once, Routine, 12/09/20 21:00:00 EDT, Stop date 12/09/20 21:00:00 EDT Start Date: 12/09/20 Stop Date: 12/09/20 Status: Completed aspirin 81 mg oral delayed release tablet [...] 0 Refills, Maintenance, 10/05/19 15:29:00 EDT, Tablet, [facility]/pharmacy #[id number], 144.78, cm, 10/05/19 14:50:00 EDT, Height, 89.5, kg, 10/01/19 20:04:00 EDT,Dry Weight Start Date: 10/05/19 Stop Date: 11/04/19 Status: Ordered fluticasone 50 mcg/inh nasal spray 1 sprays, Nares, Both, 2 times a day, # 16 Gm, 0 Refills, Maintenance, 12/01/20 4:52:00 EDT, [place],Partial fill upon patient request if the prescription [...] opioid drug. Start Date: 12/05/20 Status: Ordered Macrobid macrocrystals-monohydrate 100 mg oral capsule 1 capsule = 100 mg, By Mouth, 2 times a day, for 5 days, # 10 capsule, 0 Refills, Acute 12/14/20 21:41:00 EDT, 12/09/20 21:41:00 EDT, Capsule, Partial fill upon patient request if the prescription isfor a schedule II opioid drug., 152, cm, 11/21/20 1... Start Date: 12/09/20 Stop Date: 12/14/20 Status: Ordered metoprolol 25 mg oral tablet 12.5 mg, Tablet, By Mouth, Once, Routine, 12/09/20 21:00:00 EDT, Stop date 12/09/20 21:00:00 EDT Start Date: 12/09/20 Stop Date: 12/09/20 Status: Completed Metoprolol Tartrate 25 mg oral tablet 0.5 tablet, By Mouth, Daily, CONTACT OFFICE FOR FURTHER REFILLS [phone], # 15 tablet, 0 Refills, Maintenance, 10/26/20 12:04:00 EDT, [facility] STORE [id number], 128, cm, 10/02/20 15:05:00 EDT, Height, 62, kg, 09/27/20 0:49:00 EDT, Dry Weight Start Date: 10/26/20 Status: Ordered Norvasc 2.5 mg oral tablet 2.5 mg, 1, tablet, By Mouth, Daily, Please conctact office for apt. for further refills [phone], #30 tablet, Refills 1, Tot. Refills 1, Maintenance, 08/03/20 11:28:00 EDT, Route to Pharmacy Electronically, [facility], y convert t... Start Date: [...] conctact office for apt. for further refills [phone], # 60 tablet, 1 Refills, Maintenance, 08/03/20 11:29:00 EDT, Tablet, [facility], may convert to 90 days [...] DM2 (diabetes mellitus, type 2)(Confirmed) Active 1hands Vital Signs Most recent to oldest [Reference Range]: 1 2 3 Oxygen Saturation [94-100 %] 100 % (12/09/20 10:27 PM) 100 % (12/09/20 7:07 PM) 100 % (12/09/20 6:30 PM) Pulse Rate [55-90 bpm] 79 bpm (12/09/20 10:27 PM) 83 bpm (12/09/20 9:22 PM) 85 bpm (12/09/20 9:00 PM) Blood Pressure [90-138/55-84 mm Hg] 173/72mm Hg *H* (12/09/20 10:27 PM) 182/86mm Hg *H* (12/09/20 9:23 PM) 182/86mm Hg *H* (12/09/20 9:22 PM) Respiratory Rate [16-30 br/min] 16 br/min (12/09/20 10:27 PM) 18 br/min (12/09/20 7:07 PM) 16 br/min (12/09/20 6:30 PM) Temperature [96.8-100.4 DegF] 98.4 DegF (12/09/20 6:30 PM) 98.1 DegF (12/09/20 4:16 PM) Mode of Delivery (Oxygen) Room air (12/09/20 10:27 PM) Room air (12/09/20 7:07 PM) Room air (12/09/20 6:30 PM) Blood pressure sites Arm, left (12/09/20 10:27 PM) Arm, left (12/09/20 7:07 PM) Arm, right (12/09/20 6:30 PM) Temperature Route Oral (12/09/20 6:30 PM) Oral (12/09/20 4:16 PM) Social History Social History Type Response Smoking Status Never (less than 100 in lifetime) entered on: 07/22/19 Sex
--- OUTSIDE RECORDS SUMMARY | 2023-03-19 20:02 | XMS_ITS | Continuity of Care Document ---
Author Name Unknown Organization [facility] ter Address [address] [place] [address]- Care Team Providers Care Marine Cargo Surveyor Name Role Phone Heber FRANKLIN, Kathy Primary Care Physician [place] [facility] [place] Date[place] 04/14/22 - 04/14/[address] [id number] Discharge Disposition: A-D/C Home Attending Physician: Scott Nagy MD Admitting Physician: Scott Nagy MD Referring Physician: Scott Nagy MD Allergies, Adverse Reactions, Alerts No Known [...] 0 Refills, Maintenance, 10/05/19 15:29:00 EDT, Tablet, [facility]/pharmacy #[id number], 144.78, cm, 10/05/19 14:50:00 EDT, Height, 89.5, kg, 10/01/19 20:04:00 EDT,Dry Weight Start Date: 10/05/19 Stop Date: 11/04/19 Status: Ordered fluticasone 50 mcg/inh nasal spray 1 sprays, Nares, Both, 2 times a day, # 16 Gm, 0 Refills, Maintenance, 12/01/20 4:52:00 EDT, [place],Partial fill upon patient request if the prescription is for a schedule II opioid drug. Start Date: 12/01/20 Status: Ordered insulin glargine 100 units/mL subcutaneous solution = 15 units, Subcutaneous Injection, Daily in AM, # 3.6 mL, 0 Refills, Maintenance, 03/08/22 13:57:00 EDT, Injection, [facility], Partial fill upon patient request [...] 5 Refills, Maintenance, 06/14/21 8:50:00 EST, Capsule, [facility]/pharmacy #[id number], Partial fill upon patient request if the prescription is for a schedule II opioid drug., 152, cm, 06/07/21 7:45:00 EST, [place]... Start Date: 06/14/21 Status: Ordered MiraLax oral powder for reconstitution = 17 Gm, By Mouth, 2 times a day before breakfast and dinne, dissolve in water before taking, # 527Gm, 11 Refills, Maintenance, 05/28/21 13:46:00 EST, REC Powder, [facility]/pharmacy #[id number], Partial fill upon patient request if the prescription is for a sche... Start Date: 05/28/21 Status: Ordered Norvasc 2.5 mg oral tablet 2.5 mg, 1, tablet, By Mouth, Daily, Please conctact office for apt. for further refills [phone], #30 tablet, Refills 1, Tot. Refills 1, Maintenance, 08/03/20 11:28:00 EDT, Route to Pharmacy Electronically, [facility], y convert t... Start [...] conctact office for apt. for further refills [phone], # 60 tablet, 1 Refills, Maintenance, 08/03/20 11:29:00 EDT, Tablet, [facility], may convert to 90 [...] oldest [Reference Range]: 1 2 3 Height 144.8 cm (04/14/22 12:40 PM) Weight 63.5 kg (04/14/22 12:40 PM) Oxygen Saturation [94-100 %] 97 % (04/14/22 3:42 PM) 99 % (04/14/22 3:29 PM) 97 % (04/14/22 3:14 PM) Pulse Rate [55-90 bpm] 65 bpm (04/14/22 3:42 PM) 70 bpm (04/14/22 3:29 PM) 62 bpm (04/14/22 3:14 PM) Body Mass Index [18.5-24.99 kg/m2] 30.29 kg/m2 *>HHI* (04/14/22 12:40 PM) Blood Pressure [90-138/55-84 mm Hg] 137/61mm Hg (04/14/22 3:42 PM) 127/55mm Hg (04/14/22 3:29 PM) 134/58mm Hg (04/14/22 3:14 PM) Respiratory Rate [16-30 br/min] 16 br/min (04/14/22 3:42 PM) 15 br/min *L* (04/14/22 3:29 PM) 16 br/min (04/14/22 3:14 PM) Temperature [96.8-100.4 DegF] 98.4 DegF (04/14/22 12:40 PM) Mode of Delivery (Oxygen) Room air (04/14/22 3:42 PM) Room air (04/14/22 3:29 PM) Room air (04/14/22 3:14 PM) Blood pressure sites Arm, left (04/14/22 3:42 PM) Arm, left (04/14/22 3:29 PM) Arm, left (04/14/22 3:14 PM) Temperature Route Temporal (04/14/22 12:40 PM) Social History Social History Type Response Smoking Status Never (less than 100 in lifetime) entered on: 06/27/21 Sex Note * Raphael Alexis RN: PERFORM Event Display: Discharge/Transfer Note Hospital Authored Date: [id number] Nursing Discharge Note Entered On: 04/14/2022 15:38 EST Performed On: 04/14/2022 15:38 EST by Raphael Alexis RN Nursing Discharge Note 2 Discharge Time : 04/14/2022 16:30 EST Kanchan Bush RN - 04/14/2022 16:38 EST Discharge Level of Care at Discharge : Home/[facility]oster Care Patient Left Unit Via : Wheelchair Patient Accompanied Off Unit with : Responsible adult DC Instructions Provided & Signed by Pt : Yes Patient Understands D/C Instructions : Yes Patient Instructions Discharge Signed : Yes Did Pt have Specialty Bed or Wound Vac : No Raphael Alexis RN - 04/14/2022 15:38 EST * Raphael Alexis RN: PERFORM Event Display: Patient Education/Instruction Authored Date: [id number] Inpatient Adult Discharge Instructions [place] [id number] Name: GLADIS GILBERT : 1950 Visit: 04/14/2022 12:08:00 Current Date: 04/14/2022 15:38 Account: [id number] Inpatient Adult Discharge Instructions We would like to thank you for allowing us to assist you with your healthcare needs. The following includes patient education materials and information regarding your injury/illness. Our entire staffstrives to provide an excellent experience for our patients and their families. PLEASE ENSURE YOU FOLLOW-UP PER THE INSTRUCTIONS BELOW! ?? YOUR OPINION IS IMPORTANT TO US! Please complete the survey you may receive by mail or email. Your feedback will be used to make improvements to the healthcare experiences of our patients and their families. Surveys are administered by [employer] ?? If further treatment with your primary care physician or another doctor is recommended, it is important for you to keep the appointment. Call your primary care physician or return to the Emergency Department immediately if your condition worsens, fails to improve, or new symptoms develop. If you need to find a doctor, you can call [facility] [employer] for a referral at [phone] or toll free at [phone] or log in to [email or web address].. ?? You can view and manage your care through the patient portal or by using a health care joe of your choosing. [employer] is a website that allows you to securely view your medical information including your hospital discharge summary, office visit summaries, medications and follow-up visits. You can also request appointments, renew medications, and request access to your medical information using a health care joe of your choosing, or just ask a question. You can enroll at [email or web address] or register during your next office visit. You have been discharged from [facility], Patient Care Unit: ENDO. If you have any questions regarding these instructions after you leave, please call us and we will be happy to assist you. [facility] Your Care Team Attending Physician Scott Nagy MD Reason for Admission ELEVATED LIVER NUMBERS,LIVER BIOPSY Tests Performed Below is a partial list of the tests performed during your hospitalization. You may have had other tests and procedures not included in this list. Please discuss all test results with your provider. GLUCOSE POC Primary Care Provider Kathy Buck MD Advance Directive Health Care Proxy on File Yes - Health Care Proxy No qualifying data available. Discharge Vitals Temperature: 98.4 DegF Height: 144.8 cm Pulse Rate: 70 bpm Weight: 63.5 kg Respiratory Rate:??15 br/min??Low Body Mass Index:??30.29 kg/m2??Critical Systolic Blood Pressure: 127 mm Hg Body surface area: 1.6 Diastolic Blood Pressure: 55 mm Hg ?? Oxygen Saturation: 99 % ?? Studies Pending All tests and labs ordered during this hospital stay have been completed unless listed below. Please discuss all pending results with your provider listed above in these instructions. ?? No incomplete studies found What to do next Instructions From Your Doctor Discharge Orders Scheduled Follow-Up Appointments 2022 11:00 AM EST ?? With: Scott Nagy MD Where: [facility] [address] [place] [address]- You Need to Schedule the Following Appointments Follow Up with??Kathy Buck MD When?? Where: [address] [place] [address]- Discharge Medications GLADIS GILBERT :1950 Visit Date:04/14/2022 Medications: Please continue your medications until treatment is completed or stopped by your provider. Medications not listed below should be discontinued. Discuss any questions related to medications with your provider. What How Much When Instructions Next Dose Unchanged Acetaminophen (acetaminophen 500 mg oral tablet) 2 tab(s) Oral Daily as needed for for fever Unchanged Albuterol (Albuterol (Eqv-ProAir HFA) 90 mcg/ inh inhalation aerosol) 2 puff(s) Inhalation Every 6 hours Unchanged Amlodipine (Norvasc 2.5 mg oral tablet) 1 tab(s) Oral Daily [facility] [phone] ?? Unchanged Aspirin (aspirin 81 mg oral delayed release tablet) 1 tab(s) Oral Daily Unchanged Cetirizine (cetirizine 5 mg oral tablet) 5 Milligram Oral Daily Unchanged Cholecalciferol (Vitamin D3 2000 intl units oral tablet) 1 tab(s) Oral Daily Unchanged Escitalopram (escitalopram 5 mg oral tablet) 1 tab(s) Oral Daily Unchanged Ferrous Fumarate (ferrous fumarate 300 mg oral tablet) 1 tab(s) Oral Daily Duration: 30 Days Unchanged Fluticasone Nasal (fluticasone 50 mcg/ inh nasal spray) 1 spray(s) Nares, Both Twice a day Unchanged Glucose (Dex4 Tropical Blast 45% oral gel) 15 gram Oral Once as needed for as needed for low blood sugar Unchanged Insulin Glargine (insulin glargine 100 units/ mL subcutaneous solution) 15 unit(s) Subcutaneous Injection Daily in the morning Unchanged Insulin Lispro (insulin lispro 100 units/ mL injectable solution) 2-8 units Subcutaneous Injection 3 times a day before meals 120 - 149 ?? 2 units 150 - 179 ?? 3 units 180 - 209 ?? 4 units 210 - 239 ?? 6 units 240 - 269 ?? 7 units 270 - 299 ?? 8 units Call MD if greater than 300 ?? Unchanged Lactulose (lactulose 10 gm/ 15 ml oral syrup) 45 Milliliter Oral 3 times a day Titrate up to 2-3 bowel movements per day or until she has a bowel movement. ?? Unchanged Lidocaine Topical (lidocaine 5% topical film) Topically Daily Unchanged linaclotide (Linzess 145 mcg oral capsule) 1 capsule Oral Daily Unchanged Ondansetron (ondansetron 4 mg oral tablet, disintegrating) 1 tab(s) Oral Every 8 hours as needed for Nausea & Vomiting Unchanged Pantoprazole (Protonix 40 mg oral delayed release tablet) 1 tab(s) Oral Daily Unchanged Polyethylene Glycol 3350 (MiraLax oral powder for reconstitution) 17 gram Oral 2 times a day before breakfast and dinner dissolve in water before taking ?? Unchanged Rifaximin (rifAXIMin 550 mg oral tablet) 1 tab(s) Oral Twice a day Unchanged Ticagrelor (ticagrelor 90 mg oral tablet) 1 tab(s) Oral Twice a day Duration: 30 Days Please conctact office for apt. for further refills [phone] ?? Unchanged Trazodone (traZODone 50 mg oral tablet) 1 tab(s) Oral Daily at supper Test Results Below is a partial list of the most recent Laboratory test results done prior to this discharge. You may have had other tests and procedures not included in this list. Please discuss all test resultswith your provider. GLUCOSE POC (04/14/2022) ???Glucose, POC - 219 mg/dL Allergies (NKA means No Known Allergies) NKA Problems Active Problems??(15) Arthritis?? Asthma?? Brain TIA?? CAD (coronary artery disease)?? Chronic anemia?? Cirrhosis?? CKD (chronic kidney disease)?? Dementia?? Depression?? DM2 (diabetes mellitus, type 2)?? HTN (hypertension)?? Hyperkalemia?? Hyperlipidemia?? Insomnia?? Obese class I?? Education Materials Below is the list of Educational Leaflet Providered with your Discharge Instructions. Surgery Medical Daystay Surgical Overnight Discharge Instructions?? Valuables and Belongings I fully understand and agree that [facility] accepts no responsibility for all my personal property including clothing, toilet articles, radios, jewelry, dentures, hearing aids, rings, money, or any other property that is in my possession or is brought to me after admission. I understand certain valuables may be placed in a hospital safe for a short period of time. I understand that the hospital is not liable for loss or damage due to accident, fire, or other natural occurrence while said property is in the safe. I accept full responsibility for any personal property that I keep with me, and will not hold the hospital responsible in case of loss or disappearance. I acknowledge that i have been encouraged to send valuables and belongings home. ?? Review of Valuable and Belonging List: With patient Date for Pt to Sign Valuables/Belongings: 04/14/22 12:40:00 ?? Valuables & Belongings ?? Clothes Electronic devices Jewelry Monetary Items Personal devices Miscellaneous Medications (Valuables) Valuables at Bedside Jacket, Pants, Shirt, Shoes, Undergarments Cell phone ? Valuables Sent Home ? Valuables Sent to Security ? Other Discharge Information ? Case Management Discharge Plan?? Discharge Plan?? Discharge Level of Care at Discharge: Home/[facility]oster Care ?? Pulmonary Rehab Status?? Pulmonary Rehab Discharge Status?? Respiratory Rate:??15 br/min??Low ? Common Emergency Awareness Tips IS IT A STROKE? Act FAST and Check for these signs: FACE Does the face look uneven? ARM Does one arm drift down? SPEECH Does their speech sound strange? TIME Call at any sign of stroke ?? Heart Attack Signs Chest discomfort: Most heart attacks involve discomfort in the center of the chest and lasts more than a few minutes, or goes away and comes back. It can feel like uncomfortable pressure, squeezing, fullness or pain. Discomfort in upper body: Symptoms can include pain or discomfort in one or both arms, back, neck, jaw or stomach. Shortness of breath: With or without discomfort. Other signs: Breaking out in a cold sweat, nausea, or lightheaded. Remember, MINUTES DO MATTER. If you experience any of these heart attack warning signs, call to get immediate medical attention! ?? Smoking can increase your chances of developing chronic health problems and can cause harmful effects to other family members in your house. If you smoke, you are strongly encouraged to quit. Please call [facility] Link at [phone] or [phone] ([phone]) or log in to [email or web address] for referrals to smoking cessation programs. ?? The National Suicide Prevention Hotline is available 24/11 if you or someone you know needs to find a reason to keep living. By calling 9-560-917-[employer] (3474) you'll be connected to a skilled, trained counselor at a crisis center in your area. INPATIENT DISCHARGE INSTRUCTIONS SIGNATURE GLADIS MELO Location:[facility] Registration Date and Time:04/14/2022 12:08 [facility] Primary Care Physician: Heber FRANKLIN, [facility], I OFELIA GLADIS, have received the above patient education materials/instructions and have verbalized understanding. If ambulance or transport services are being used I further acknowledge being givena choice of service. ?? If you need to contact me, please call me at this number: . Patient/Finance Controller Name: Patient/Finance Controller Signature: Relationship to Patient: Witness Name/Signature: Date: * Vanesa ABEL, Raphael Conley: PERFORM Event Display: Patient Education Leaflets Authored Date: [id number] Surgery Medical Daystay Surgical Overnight Discharge Instructions ?? 295 Medical Daystay/Surgical Overnight Discharge Instructions ? Since your coordination and judgment may be altered by medication and/or anesthesia, a responsible adult must drive you home from the hospital. ? If you have received medication for pain or sedation while under our care, you should not drive, operate machinery, drink alcohol, or sign any legal documents for 24 hours.?? You should have someone with you at home tonight. ? Remain at home the day of discharge.?? You may be up and about unless otherwise instructed by your physician. ? You may resume your daily prescription medication schedule.?? Any depressant medication should be avoided for 24 hours unless otherwise instructed by your surgeon or anesthesiologist. ? Call your physician for a follow-up appointment.? If you experience unusual or severe pain not relied by your pain medication, excessive bleedingor drainage, persistent nausea and vomiting, excessive swelling or redness, foul odor from incisionsite or fever over 100.6F, you need to call your physician. ? A follow-up phone call by a nurse will be made the day after your procedure.?? If you have stayed with us over night, you will not be receiving a follow-up phone call. ? Nausea and vomiting are a common side effect of prescription pain medication.?? We recommend that pills are not taken on an empty stomach.?? While taking any prescription pain medication you should not drive or drink alcohol. ? Patient Care team information Care Team Personnel Name: Aster Pena RN Position: S RN Member Role: Primary Care Nurse Name: Dunia Phillip RN Position: S RN Member Role: Primary Care Nurse Name: Alon Gonzalez RN Position: S RN Member Role: Primary Care Nurse Name: Jessica Canseco RN Position: S RN Member Role: Primary Care Nurse Name: Erica Archer RN Position: [facility] RN Supv Member Role: Primary Care Nurse Name: Vickie Lyons Position: [facility] Outreach Member Role: Lifetime Consulting Physician Name: Martine Carr RN Position: S RN Member Role: Primary Care Nurse Name: Indira Monsalve RN Position: S RN Member Role: Primary Care Nurse Name: Loren Mcmanus RN Position: S RN Member Role: Primary Care Nurse Name: Marisela Lobo LPN Position: S RN Member Role: Primary Care Nurse Name: Mp Zarco RN Position: S RN Member Role: Primary Care Nurse Name: Britney Henao RN Position: S RN Member Role: Primary Care Nurse Name: Kathy Buck MD Position: S Outreach Member Role: PCP Address: Address: [address] [place] [address]- Name: Blayne Hughes RN Position: S RN Member Role: Primary Care Nurse Name: Norma Art RN Position: S RN Member Role: Primary Care Nurse Name: Mecca Boyd RN Position: S RN Member Role: Primary Care Nurse Name: Katie Evans RN Position: S RN Member Role: Primary Care Nurse Name: Leonor Mccormick RN Position: S RN Member Role: Primary Care Nurse Name: Paige Morris RN Position: S RN Member Role: Primary Care Nurse Name: Shauna Angela RN Position: S RN Member Role: Primary Care Nurse Name: Trini Starr RN Position: S RN Member Role: Primary Care Nurse Name: Susie Monson RN Position: S RN Member Role: Primary Care Nurse Name: Meena Castro RN Position: S RN Member Role: Primary Care Nurse Care Team Related Persons Name: PAIGE TALBERT Address: [place] [address] Name: CAMRON VELASQUEZ Address: [place] [address] Name: ANTIONE SETHI Address: home [address] [place] [address]
--- OUTSIDE RECORDS SUMMARY | 2023-03-19 20:03 | XMS_ITS | Continuity of Care Document ---
Author Name Unknown Organization [facility] Address [address] [place] [address]- Care Team Providers Care Worksite Wellness Practitioner Name Role Phone Luis Fernando Nobles MD Primary Care Physician Encounter [facility] [place] ACCT R [id number] Date(s): 07/22/19 - 08/01/19 [facility] [address] [place] [address] [facility] Attending Physician: Mihaela Hawk Admitting Physician: AdmtrMihaela [...] 07/28/19 10:09:00 EDT, Route to Pharmacy Electronically, [facility], may convert to 90daysat patient request, 127, cm, 07/22/19 11:16:00 EDT,... Start Date: 07/28/19 Status: Ordered Humalog Kwik Pen 100 units/mL subcutaneous injection = 15 units, Subcutaneous Injection, 3 times a day before meals Start Date: 12/15/18 Status: Ordered lactulose 10 gm/15 ml oral syrup TAKE 15MLS ONCE DAILY Start Date: 12/15/18 Status: Ordered magnesium oxide 400 mg oral tablet TAKE 1 TABLET EVERY MORNING DIRECTED Start Date: 12/15/18 Status: Ordered methylcellulose 500 mg oral tablet TAKE 2 TABLETS ONCE DAILY. DRINK 8 OUNCES WITH TABLETS Start Date: 12/15/18 Status: Ordered metoprolol 25 mg oral tablet 12.5 mg, 0.5, tablet, By Mouth, Daily, # 15 tablet, Refills 11, Tot. Refills 11, Maintenance, 07/28/19 10:09:00 EDT, Route to Pharmacy Electronically, [facility], may convert to 90 days at patient request, 127, cm, 07/22/19 11:16:0... Start Date: 07/28/19 Stop Date: 07/22/20 Status: Ordered Norvasc 2.5 mg oral tablet 2.5 mg, 1, tablet, By Mouth, Daily, # 30 tablet, Refills 11, Tot. Refills 11, Maintenance, 07/27/2009:09:00 EDT, Route to Pharmacy Electronically, [facility], y convert to 90 days at patient request, 127, cm, 07/22/19 11:16:00 EDT... Start Date: 07/28/19 Status: Ordered nystatin topical 803454 u/gm powder 1 application, Topically, 3 times a day, apply to skin below vagina, # 15 Gm, 0 Refills, Maintenance, 10/13/18 4:47:30 EDT, Powder Start Date: 10/13/18 Status: Ordered raNITIdine 150 mg oral tablet TAKE 1 TABLET BY MOUTH EVERY MORNING Start Date: 12/15/18 Status: Ordered Reglan 5 mg oral tablet 1 tablet = 5 mg, By Mouth, 4 times a day, PRN Nausea & Vomiting, # 120 tablet, 3 Refills, Acute07/27/20 10:11:00 EDT, 07/28/19 10:09:00 EDT, Tablet, [facility], 127, cm, 07/22/19 11:16:00 EDT, [...] 11 Refills, Maintenance, 07/28/19 10:09:00 EDT, Tablet, [facility], may convert to 90 days at patient request., 127, cm, 07/22/19 11:16:00 EDT, Height, 78.8, kg, 07/10/19 10:1... Start Date: 07/28/19 Stop Date: 07/22/20 Status: Ordered Toujeo SoloStar 300 units/mL subcutaneous solution INJECT 65 UNITS SUBCUTANEOUSLY ONCE DAILY Start Date: 12/15/18 Status: Ordered traZODone 50 mg oral tablet [...]
--- OUTSIDE RECORDS SUMMARY | 2023-03-19 20:03 | XMS_ITS | Continuity of Care Document ---
Author Name Unknown Organization [facility] Address [address] [place] [address]- Care Team Providers Care Workers Compensation Examiner Name Role Phone Giuliano FRANKLIN, Luis Fernando Haines Primary Care Physician [place] [facility] [place] Date(s): 07/18/19 - 09/16/19 [facility] [address] [place] [address] [facility] Attending Physician: Shante Alexis NP Admitting Physician: Shante Alexis NP Allergies, Adverse Reactions, Alerts Substance Reaction Severity [...] 07/28/19 10:09:00 EDT, Route to Pharmacy Electronically, [facility], september convert to 90daysat patient request, 127, cm, [...] 07/28/19 10:09:00 EDT, Route to Pharmacy Electronically, [facility], may convert to 90 days at patient request, 127, cm, 07/22/19 11:16:0... Start Date: 07/28/19 Stop Date: 07/22/20 Status: Ordered Norvasc 2.5 mg oral tablet 2.5 mg, 1, tablet, By Mouth, Daily, # 30 tablet, Refills 11, Tot. Refills 11, Maintenance, 07/27/2009:09:00 EDT, Route to Pharmacy Electronically, [facility], y convert to 90 days at patient request, 127, cm, 07/22/19 11:16:00 EDT... Start Date: 07/28/19 Status: Ordered nystatin topical 094876 u/gm powder 1 application, Topically, 3 times [...] Acute07/27/20 10:11:00 EDT, 07/28/19 10:09:00 EDT, Tablet, [facility], 127, cm, 07/22/19 11:16:00 EDT, [...] 11 Refills, Maintenance, 07/28/19 10:09:00 EDT, Tablet, [facility], may convert to 90 [...]
--- OUTSIDE RECORDS SUMMARY | 2023-03-19 20:03 | XMS_ITS | Continuity of Care Document ---
Author Name Unknown Organization [facility] ter Address [address] [place] [address]- Care Team Providers Care Virtual Assistant Name Role Phone Luis Fernando Nobles MD Primary Care Physician Encounter [facility] Date(s): 12/22/19 - 01/27/[address] [address]- [facility] Attending Physician: Luis Fernando Nobles MD Admitting Physician: Luis Fernando Nobles MD Referring Physician: Luis Fernando Nobles MD [...] 07/28/19 10:09:00 EDT, Route to Pharmacy Electronically, [facility], may convert to 90daysat patient [...] 0 Refills, Maintenance, 10/05/19 15:24:00 EDT, Nasal [place], [facility]/pharmacy #[id number], 1 sprays Nares, Both 2 times a day, 144.78, cm, 10/05/19 14:50:00 EDT, Height, 89.5, kg, 10/01/19 20:04:00 EDT, Dry... Start Date: 10/05/19 Status: Ordered insulin glargine 100 u/ml subcutaneous solution = 20 units, Subcutaneous Injection, Daily at bedtime, # 10 mL, 0 Refills, Maintenance, 10/05/19 15:24:00 EDT, Injection, [facility]/pharmacy #[id number], 144.78, cm, 10/05/19 14:50:00 [...] 10/05/19 15:25:00 EDT, Route to Pharmacy Electronically, [facility]/pharmacy #[id number], 144.78, cm, 10/05/19 14:50:00 EDT, Height, 89.5, kg, 10/01/19 20:04:00 EDT,... Start Date: 10/05/19 Stop Date: 10/26/19 Status: Ordered metoprolol 25 mg oral tablet 12.5 mg, 0.5, tablet, By Mouth, Daily, # 15 tablet, Refills 11, Tot. Refills 11, Maintenance, 07/28/19 10:09:00 EDT, Route to Pharmacy Electronically, [facility], may convert to 90 days at patient request, 127, cm, 07/22/19 11:16:0... Start Date: 07/28/19 Stop Date: 07/22/20 Status: Ordered Norvasc 2.5 mg oral tablet 2.5 mg, 1, tablet, By Mouth, Daily, # 30 tablet, Refills 11, Tot. Refills 11, Maintenance, 07/27/2009:09:00 EDT, Route to Pharmacy Electronically, [facility], y convert to 90 days at patient request, 127, cm, 07/22/19 11:16:00 EDT... Start Date: 07/28/19 Status: Ordered Reglan 5 mg oral tablet 1 tablet = 5 mg, By Mouth, 4 times a day, PRN Nausea & Vomiting, # 120 tablet, 3 Refills, Acute07/27/20 10:11:00 EDT, 07/28/19 10:09:00 EDT, Tablet, [facility], 127, cm, 07/22/19 11:16:00 [...] 11 Refills, Maintenance, 07/28/19 10:09:00 EDT, Tablet, [facility], may convert to 90 [...]
--- OUTSIDE RECORDS SUMMARY | 2023-03-19 20:03 | XMS_ITS | Continuity of Care Document ---
Author Name Unknown Organization [facility] ter Address [address] [place] [id number]- Care Team Providers Care Medical Chief Technician Name Role Phone Boris Cruz MD Primary Care Physician Encounter [facility] [place] Date(s): 09/26/20 - 10/02/[address] [address]- Encounter Diagnosis SAM (acute kidney injury)(Final) - 09/26/20 Hepatic encephalopathy(Final) - 09/26/20 Hyperglycemia(Final) - 09/26/20 Lactate blood increase(Final) - 09/26/20 Discharge Disposition: A-Transfer VNA/Home Health Attending Physician: Angie Young MD Admitting Physician: Jose Castillo MD Referring Physician: Not on Staff, Referring [...] 0 Refills, Maintenance, 10/05/19 15:24:00 EDT, Nasal [place], [facility]/pharmacy #[id number], 1 sprays Nares, Both 2 times [...] LEG SWELLING Start Date: 08/10/20 Status: Ordered Insulin Glargine Inj 0.24 mL = 24 units, Subcutaneous Injection, Daily in AM, 0 Refills, Maintenance, 10/02/20 13:50:00 EDT, Injection, Partial fill upon patient request if the prescription is for a schedule II opioid drug. Start Date: 10/02/20 Status: Ordered Insulin Lispro 8-18 units, Subcutaneous Injection, 3 times a day before meals, 0 Refills, Maintenance, 10/02/20 13:50:00 EDT, Injection, Partial fill upon patient request if the prescription is for a schedule II opioid drug. Start Date: 10/02/20 Status: Ordered lactulose 10 gm/15 ml oral [...] 15:25:00 EDT, Route to Pharmacy Electronically, [facility]/pharmacy #[id number], 144.78, cm, 10/05/19 14:50:00 EDT, Height, 89.5, kg, 10/01/19 20:04:00 EDT,... Start Date: 10/05/19 Stop Date: 10/26/19 Status: Ordered metoprolol 25 mg oral tablet 12.5 mg, 0.5, tablet, By Mouth, Daily, Please conctact office for apt. for further refills [phone], # 15 tablet, Refills 1, Tot. Refills 1, Maintenance, 08/03/20 11:29:00 EDT, Route to Pharmacy Electronically, [facility], september conv... Start Date: 08/03/20 Stop Date: 10/02/20 Status: Ordered metoprolol 25 mg oral tablet, extended release 12.5 mg, XL Tablet, By Mouth, 10/02/20 9:00:00 EDT Start Date: 10/02/20 Stop Date: 10/02/20 Status: Completed Norvasc 2.5 mg oral tablet 2.5 mg, 1, tablet, By Mouth, Daily, Please conctact office for apt. for further refills [phone], #30 tablet, Refills 1, Tot. Refills 1, Maintenance, 08/03/20 11:28:00 EDT, Route to Pharmacy Electronically, [facility], y convert t... Start Date: 08/03/20 Status: Ordered Norvasc 5 mg oral tablet 2.5 mg, Tablet, By Mouth, 10/02/20 9:00:00 EDT Start Date: 10/02/20 Stop Date: 10/02/20 Status: Completed rifAXIMin 550 mg oral tablet 1 tablet [...] conctact office for apt. for further refills [phone], # 60 tablet, 1 Refills, Maintenance, 08/03/20 11:29:00 EDT, Tablet, [facility], may convert to 90 days [...] Exam Date Time Procedure Performing Provider Status 09/26/20 10:00 PM Chest Portable Chaim Hairston; Aut h (Verified) Notes: (Chest Portable) Reason For Exam: Shortness of Breath RESULT: Chest Portable Chest Portable Reason: Shortness of Breath; Clinical Question(s): CHF COMPARISON: 08/20/2020 FINDINGS: LINES AND TUBES: None. LUNGS AND PLEURA: Low lung volumes. Improved appearance compared to prior, with a few faint residual opacities. Normal pulmonary vascularity. No pleural effusion. No pneumothorax. HEART, MEDIASTINUM AND ANIKET: Heart is normal in size. Normal upper mediastinal and hilar contour. BONES AND SOFT TISSUES: No acute abnormality. IMPRESSION: No acute abnormality. Mostly resolved opacities related to Covid-19 pneumonia in August. WSN: [id number] Ordering Physician: Cordelia Thomas Dictated By: Yuli Yanes MD Dictated Date/Time: 09/26/20 10:12 p Reviewed By: Yuli Yanes MD Signed By: Yuli Yanes MD Signed Date/Time: 09/26/20 10:12 pm Transcribed By: KEYSHA Transcribed Date/Time: 09/26/20 10:09 pm Vital Signs Most recent to oldest [Reference Range]: 1 2 3 Height 128 cm (10/02/20 3:05 PM) 128 cm (10/01/20 8:05 PM) 128 cm (10/01/20 8:01 PM) Weight 67.9 kg (09/27/20 1:36 AM) 62 kg (09/27/20 12:49 AM) Oxygen Saturation [94-100 %] 98 % (10/02/20 3:05 PM) 98 % (10/02/20 5:00 AM) 95 % (10/01/20 8:05 PM) Pulse Rate [55-90 bpm] 67 bpm (10/02/20 3:05 PM) 71 bpm (10/02/20 9:09 AM) 98 bpm *H* (10/02/20 5:00 AM) Body Mass Index [18.5-24.99] 41.44 *>HHI* (09/27/20 1:36 AM) Blood Pressure [90-138/55-84 mm Hg] 104/52mm Hg (10/02/20 3:05 PM) 134/80mm Hg (10/02/20 9:09 AM) 134/80mm Hg (10/02/20 9:09 AM) Respiratory Rate [16-30 br/min] 18 br/min (10/02/20 3:05 PM) 19 br/min (10/02/20 5:00 AM) 18 br/min (10/01/20 8:05 PM) Temperature [96.8-100.4 DegF] 98.6 DegF (10/02/20 3:05 PM) 98 DegF (10/02/20 5:00 AM) 98.1 DegF (10/01/20 8:05 PM) Liters per Minute 2 L/min (10/01/20 8:05 PM) Mode of Delivery (Oxygen) Room air (10/02/20 3:05 PM) Room air (10/02/20 5:00 AM) Nasal cannula (10/01/20 8:05 PM) Blood pressure sites Arm, right (10/02/20 3:05 PM) Arm, right (10/02/20 5:00 AM) Arm, right (10/01/20 8:05 PM) Temperature Route Oral (10/02/20 3:05 PM) Oral (10/02/20 5:00 AM) Oral (10/01/20 8:05 PM) Dry Weight 62 kg (09/27/20 12:49 AM) Weight Obtained Via Bed scale (09/27/20 1:36 AM) Social History Social History Type Response Smoking Status Never (less than 100 in lifetime) entered on: 07/22/19 Sex
--- OUTSIDE RECORDS SUMMARY | 2023-03-19 20:03 | XMS_ITS | Continuity of Care Document ---
Author Name Unknown Organization [facility] Address [address] [place] [address]- Care Team Providers Care Resistance Brazer Name Role Phone Heber FRANKLIN, Kathy Primary Care Physician Encounter [facility] Date(s): 02/04/21 - 03/06/21 [facility] [address] [place], [place] [address] Attending Physician: Mihaela Hawk Admitting Physician: [...] 0 Refills, Maintenance, 10/05/19 15:29:00 EDT, Tablet, [facility]/pharmacy #[id number], 144.78, cm, 10/05/19 14:50:00 EDT, Height, 89.5, kg, 10/01/19 20:04:00 EDT,Dry Weight Start Date: 10/05/19 Stop Date: 11/04/19 Status: Ordered fluticasone 50 mcg/inh nasal spray 1 sprays, Nares, Both, 2 times a day, # 16 Gm, 0 Refills, Maintenance, 12/01/20 4:52:00 EDT, [place],Partial fill upon patient request if the prescription [...] Mouth, Daily, CONTACT OFFICE FOR FURTHER REFILLS [phone], # 15 tablet, 0 Refills, Maintenance, 10/26/20 12:04:00 EDT, [facility] STORE [id number], 128, cm, 10/02/20 15:05:00 EDT, Height, 62, kg, 09/27/20 0:49:00 EDT, Dry Weight Start Date: 10/26/20 Status: Ordered Norvasc 2.5 mg oral tablet 2.5 mg, 1, tablet, By Mouth, Daily, Please conctact office for apt. for further refills [phone], #30 tablet, Refills 1, Tot. Refills 1, Maintenance, 08/03/20 11:28:00 EDT, Route to Pharmacy Electronically, [facility], y convert t... Start Date: [...] conctact office for apt. for further refills [phone], # 60 tablet, 1 Refills, Maintenance, 08/03/20 11:29:00 EDT, Tablet, [facility], may convert to 90 days [...]
--- OUTSIDE RECORDS SUMMARY | 2023-03-19 20:03 | XMS_ITS | Continuity of Care Document ---
Author Name Unknown Organization [facility] Address [address] [place] [address]- Care Team Providers Care Security Flex Utility Officer Name Role Phone Anthony FRANKLIN, Boris Watters Primary Care Physician [facility] [id number] Date(s): 07/03/20 - 09/16/20 [facility] [address] [place] [id number] Attending Physician: Forrest Pace MD Admitting Physician: Forrest Pace MD Referring Physician: Not on Staff, Referring [...] 0 Refills, Maintenance, 10/05/19 15:24:00 EDT, Nasal [place], [facility]/pharmacy #[id number], 1 sprays Nares, Both 2 [...] 0 Refills, Maintenance, 10/05/19 15:24:00 EDT, Injection, [facility]/pharmacy #[id number], 144.78, cm, 10/05/19 14:50:00 EDT, [...] 10/05/19 15:25:00 EDT, Route to Pharmacy Electronically, [facility]/pharmacy #[id number], 144.78, cm, 10/05/19 14:50:00 EDT, Height, 89.5, kg, 10/01/19 20:04:00 EDT,... Start Date: 10/05/19 Stop Date: 10/26/19 Status: Ordered metoprolol 25 mg oral tablet 12.5 mg, 0.5, tablet, By Mouth, Daily, Please conctact office for apt. for further refills [phone], # 15 tablet, Refills 1, Tot. Refills 1, Maintenance, 08/03/20 11:29:00 EDT, Route to Pharmacy Electronically, [facility], september conv... Start Date: 08/03/20 Stop Date: 10/02/20 Status: Ordered Norvasc 2.5 mg oral tablet 2.5 mg, 1, tablet, By Mouth, Daily, Please conctact office for apt. for further refills [phone], #30 tablet, Refills 1, Tot. Refills 1, Maintenance, 08/03/20 11:28:00 EDT, Route to Pharmacy Electronically, [facility], y convert t... Start Date: [...] conctact office for apt. for further refills [phone], # 60 tablet, 1 Refills, Maintenance, 08/03/20 11:29:00 EDT, Tablet, [facility], may convert to 90 days [...]
--- OUTSIDE RECORDS SUMMARY | 2023-03-19 20:03 | XMS_ITS | Continuity of Care Document ---
Author Name Unknown Organization [facility] ter Address [address] [place] [address]- Care Team Providers Care Grain Cleaner And Transfer Operator Name Role Phone Heber FRANKLIN, Kathy Primary Care Physician [phone] Encounter [facility] Date(s): 05/02/21 - 05/03/[address] [address]- Encounter Diagnosis Abdominal pain(Final) - 05/02/21 Colitis(Final) - 05/02/21 Nausea(Final) - 05/02/21 Vomiting(Final) - 05/02/21 Discharge Disposition: A-D/C Home Attending Physician: Gautam Crow MD Admitting Physician: Gautam Crow MD Referring Physician: Not on Staff, Referring [...] 0 Refills, Maintenance, 10/05/19 15:29:00 EDT, Tablet, [facility]/pharmacy #[id number], 144.78, cm, 10/05/19 14:50:00 EDT, Height, 89.5, kg, 10/01/19 20:04:00 EDT,Dry Weight Start Date: 10/05/19 Stop Date: 11/04/19 Status: Ordered fluticasone 50 mcg/inh nasal spray 1 sprays, Nares, Both, 2 times a day, # 16 Gm, 0 Refills, Maintenance, 12/01/20 4:52:00 EDT, [place],Partial fill upon patient request if the prescription [...] Mouth, Daily, CONTACT OFFICE FOR FURTHER REFILLS [phone], # 15 tablet, 0 Refills, Maintenance, 10/26/20 12:04:00 EDT, [facility] STORE 21579, 128, cm, 10/02/20 15:05:00 EDT, Height, 62, kg, 09/27/20 0:49:00 EDT, Dry Weight Start Date: 10/26/20 Status: Ordered Norvasc 2.5 mg oral tablet 2.5 mg, 1, tablet, By Mouth, Daily, Please conctact office for apt. for further refills [phone], #30 tablet, Refills 1, Tot. Refills 1, Maintenance, 08/03/20 11:28:00 EDT, Route to Pharmacy Electronically, [facility], y convert t... Start Date: 08/03/20 Status: Ordered ondansetron 4 mg oral tablet, disintegrating 1 tablet = 4 mg, By Mouth, Every 8 hours, PRN Nausea & Vomiting, # 10 tablet, 0 Refills, Acute 05/07/21 0:00:00 EST, 05/02/21 23:03:00 EST, Tablet, [facility]/pharmacy #[id number], Partial fill upon patient request if the prescription is for a schedule II opioid d... Start Date: 05/02/21 Stop Date: 05/07/21 Status: Ordered rifAXIMin 550 mg oral tablet 1 tablet = 550 mg, By Mouth, 2 times a day, 0 Refills, Maintenance, 08/24/20 10:36:00 EDT, Tablet, Partial fill upon patient request if the prescription is for a schedule II opioid drug. Start Date: 08/24/20 Status: Ordered ticagrelor 90 mg oral tablet 1 tablet = 90 mg, By Mouth, 2 times a day, [facility] [phone], # 60 tablet, 1 Refills, Maintenance, 08/03/20 11:29:00 EDT, Tablet, [facility], may convert to 90 days [...] Exam Date Time Procedure Performing Provider Status 05/02/21 2:30 PM Chest 2 Views Frontal and Lat Arya Jones i (Verified) Notes: (Chest 2 Views Frontal and Lat) Reason For Exam: Shortness of Breath, Fever;Other: RESULT: Chest 2 Views Frontal and Lat Chest 2 Views Frontal and Lat Hx of Present Illness: Pt c o abdominal pain, nausea, and vomiting x2 days. COMPARISON: Chest radiograph 11/25/2020. CT chest 11/30/2020. FINDINGS: LINES AND TUBES: None. LUNGS AND PLEURA: Low lung volumes with mild basilar atelectasis. Lungs are otherwise clear with no consolidation. No pleural effusion. No pneumothorax. HEART, MEDIASTINUM AND ANIKET: Heart is normal in size. Aorta is calcified. BONES AND SOFT TISSUES: No acute abnormality. IMPRESSION: No acute abnormality. I have personally reviewed the images and I agree with this report. WSN: [id number] Ordering Physician: Bella Marte Dictated By: Krystal Quiroz MD Dictated Date/Time: 05/02/21 3:12 pm Reviewed By: Drake Mckee MD Signed By: Drake Mckee MD Signed Date/Time: 05/02/21 3:17 pm Transcribed By: KEYSHA Transcribed Date/Time: 05/02/21 2:34 pm Vital Signs Most recent to oldest [Reference Range]: 1 2 3 Oxygen Saturation [94-100 %] 97 % (05/02/21 11:40 PM) 100 % (05/02/21 8:04 PM) 100 % (05/02/21 4:26 PM) Pulse Rate [55-90 bpm] 85 bpm (05/02/21 11:40 PM) 90 bpm (05/02/21 8:04 PM) 94 bpm *H* (05/02/21 4:26 PM) Blood Pressure [90-138/55-84 mm Hg] 128/58mm Hg (05/02/21 11:40 PM) 154/75mm Hg *H* (05/02/21 8:04 PM) 174/64mm Hg *H* (05/02/21 4:26 PM) Respiratory Rate [16-30 br/min] 16 br/min (05/02/21 11:40 PM) 16 br/min (05/02/21 8:04 PM) 18 br/min (05/02/21 4:26 PM) Temperature [96.8-100.4 DegF] 98.1 DegF (05/02/21 8:04 PM) 98.5 DegF (05/02/21 4:26 PM) 98.3 DegF (05/02/21 1:33 PM) Mode of Delivery (Oxygen) Room air (05/02/21 11:40 PM) Room air (05/02/21 8:04 PM) Room air (05/02/21 4:26 PM) Blood pressure sites Arm, right (05/02/21 8:04 PM) Arm, left (05/02/21 4:26 PM) Arm, left (05/02/21 1:33 PM) Temperature Route Oral (05/02/21 8:04 PM) Oral (05/02/21 4:26 PM) Oral (05/02/21 1:33 PM) Social History Social History Type Response Smoking Status Never (less than 100 in lifetime) entered on: 07/22/19 Sex
--- OUTSIDE RECORDS SUMMARY | 2023-03-19 20:03 | XMS_ITS | Continuity of Care Document ---
Author Name Unknown Organization [facility] ter Address [address] [place] [address]- Care Team Providers Care Roll Mechanic Name Role Phone Heber FRANKLIN, Kathy Primary Care Physician [phone] Encounter [facility] Date(s): 03/13/21 - 04/12/[address] [address]- Attending Physician: Not on Staff, Attending MD Admitting Physician: Not on Staff, Admitting MD Referring Physician: Not on Staff, Referring [...] 0 Refills, Maintenance, 10/05/19 15:29:00 EDT, Tablet, [facility]/pharmacy #[id number], 144.78, cm, 10/05/19 14:50:00 EDT, Height, 89.5, kg, 10/01/19 20:04:00 EDT,Dry Weight Start Date: 10/05/19 Stop Date: 11/04/19 Status: Ordered fluticasone 50 mcg/inh nasal spray 1 sprays, Nares, Both, 2 times a day, # 16 Gm, 0 Refills, Maintenance, 12/01/20 4:52:00 EDT, [place],Partial fill upon patient request if the prescription [...] Mouth, Daily, CONTACT OFFICE FOR FURTHER REFILLS [phone], # 15 tablet, 0 Refills, Maintenance, 10/26/20 12:04:00 EDT, [facility] STORE 43207, 128, cm, 10/02/20 15:05:00 EDT, Height, 62, kg, 09/27/20 0:49:00 EDT, Dry Weight Start Date: 10/26/20 Status: Ordered Norvasc 2.5 mg oral tablet 2.5 mg, 1, tablet, By Mouth, Daily, Please conctact office for apt. for further refills [phone], #30 tablet, Refills 1, Tot. Refills 1, Maintenance, 08/03/20 11:28:00 EDT, Route to Pharmacy Electronically, [facility], y convert t... Start Date: 08/03/20 [...] conctact office for apt. for further refills [phone], # 60 tablet, 1 Refills, Maintenance, 08/03/20 11:29:00 EDT, Tablet, [facility], may convert to 90 days at [...]
--- OUTSIDE RECORDS SUMMARY | 2023-03-19 20:03 | XMS_ITS | Continuity of Care Document ---
Author Name Unknown Organization [facility] ter Address [address] [place] [address]- Care Team Providers Care Training And Development Specialist Name Role Phone Dayanna Rosas MD Primary Care Physician Encounter [facility] Date(s): 06/11/22 - 06/11/[address] [address]- Encounter Diagnosis Hyperglycemia(Final) - 06/11/22 Discharge Disposition: A-D/C Home Attending Physician: Stuart De Anda MD Admitting Physician: Stuart De Anda MD Referring Physician: Not on Staff, Referring MD Allergies, Adverse Reactions, Alerts No Known Allergies Immunizations Given and Recorded Vaccine Date Status Refusal Reason SARS-CoV-2 mRNA ([id number]) vax 07/09/21 Recorded SARS-CoV-2 (COVID-19) Ad26 vaccine [...] opioid drug. Start Date: 06/04/21 Status: Ordered Acetaminophen Tablet 975 mg, Tablet, By Mouth, Once, STAT, 06/11/22 13:53:00 EST, Stop date 06/11/22 13:53:00 EST Start Date: 06/11/22 Stop Date: 06/11/22 Status: Completed aspirin 81 mg oral delayed [...] 0 Refills, Maintenance, 10/05/19 15:29:00 EDT, Tablet, [facility]/pharmacy #[id number], 144.78, cm, 10/05/19 14:50:00 EDT, Height, 89.5, kg, 10/01/19 20:04:00 EDT,Dry Weight Start Date: 10/05/19 Stop Date: 11/04/19 Status: Ordered fluticasone 50 mcg/inh nasal spray 1 sprays, Nares, Both, 2 times a day, # 16 Gm, 0 Refills, Maintenance, 12/01/20 4:52:00 EDT, [place],Partial fill upon patient request if the prescription is for a schedule II opioid drug. Start Date: 12/01/20 Status: Ordered insulin glargine 100 units/mL subcutaneous solution = 15 units, Subcutaneous Injection, Daily in AM, # 3.6 mL, 0 Refills, Maintenance, 03/08/22 13:57:00 EDT, Injection, [facility], Partial fill upon patient request [...] 5 Refills, Maintenance, 06/14/21 8:50:00 EST, Capsule, [facility]/pharmacy #[id number], Partial fill upon patient request if the prescription is for a schedule II opioid drug., 152, cm, 06/07/21 7:45:00 EST, [place]... Start Date: 06/14/21 Status: Ordered MiraLax oral powder for reconstitution = 17 Gm, By Mouth, 2 times a day before breakfast and dinne, dissolve in water before taking, # 527Gm, 11 Refills, Maintenance, 05/28/21 13:46:00 EST, REC Powder, [facility]/pharmacy #[id number], Partial fill upon patient request if the prescription is for a sche... Start Date: 05/28/21 Status: Ordered Norvasc 2.5 mg oral tablet 2.5 mg, 1, tablet, By Mouth, Daily, Please conctact office for apt. for further refills [phone], #30 tablet, Refills 1, Tot. Refills 1, [...] 10/20/22 9:58:00 EDT, Route to Pharmacy Electronically, [facility]/pharmacy #[id number], Partial fill upon patient request if the [...] 3 Oxygen Saturation [94-100 %] 100 % (06/11/22 6:47 PM) 100 % (06/11/22 3:56 PM) 100 % (06/11/22 1:15 PM) Pulse Rate [55-90 bpm] 90 bpm (06/11/22 6:47 PM) 82 bpm (06/11/22 3:56 PM) 72 bpm (06/11/22 1:15 PM) Blood Pressure [90-138/55-84 mm Hg] 129/61mm Hg (06/11/22 6:47 PM) 149/63mm Hg *H* (06/11/22 3:56 PM) 118/45mm Hg (06/11/22 1:15 PM) Respiratory Rate [16-30 br/min] 18 br/min (06/11/22 6:47 PM) 18 br/min (06/11/22 3:56 PM) 18 br/min (06/11/22 3:42 PM) Temperature [96.8-100.4 DegF] 98.7 DegF (06/11/22 1:15 PM) Mode of Delivery (Oxygen) Room air (06/11/22 6:47 PM) Room air (06/11/22 3:56 PM) Room air (06/11/22 1:15 PM) Blood pressure sites Arm, left (06/11/22 6:47 PM) Arm, left (06/11/22 3:56 PM) Arm, left (06/11/22 1:15 PM) Social History Social History Type Response Smoking Status Never (less than 100 in lifetime) entered on: 06/27/21 Sex Female EKG study * Event Display: ECG 12-Lead Authored Date: Please click on pdf link to open report * Event Display: ECG 12-Lead Authored Date: Ventricular Rate: 72 BPM Atrial Rate: 72 BPM P-R Interval: 138 ms QRS Duration: 114 ms Q-T Interval: 410 ms QTC Calculation(Bazett): 448 ms P Bullhead: 39 degrees R Bullhead: 16 degrees T Bullhead: 53 degrees Normal sinus rhythm Minimal voltage criteria for LVH, may be normal variant Borderline ECG When compared with ECG of 01-JUN-2022 18:53, No significant change was found Confirmed by BERTA QUINN MD ([id number]) on 06/11/2022 4:31:33 PM [place]: BERTA QUINN MD Note * Amanda Henao: PERFORM Event Display: Patient Education Leaflets Authored Date: [id number] Diabetes with High Blood Sugar ?? [id number] Diabetes con alto nivel de az??car en la dipak Usted recibi?? tratamiento por tener un nivel alto de az??car en la dipak (hiperglucemia). [facility] puede deberse a cristobal infecci??n u otra enfermedad. O maria e por comer muchos dulces y carbohidratos. Tambi??n puede ser por no administrarse suficiente insulina. Adem??s, puede deberse a no vladimir los medicamentos para controlar la diabetes adan le indicaron. Cuidados en el hogar Controle shannon nivel de az??car en la dipak al menos 2??veces al d??a. Anote los resultados. H??everett antes del desayuno. Tambi??n antes de la reaming machine tender. Si recibe insulina, tambi??n anote la dosis habitual.Anote cualquier otra dosis que haya necesitado en funci??n de shannon escala de valores. O maria e seg??n las recomendaciones del proveedor de atenci??n m??dica. H??everett madison los siguientes 3 a 5??d??as. Un nivel alto de az??car en la dipak provoca s??ntomas que usted puede aprender a distinguir. Entre ellos, se encuentran los siguientes: ??? Orinar frecuentemente ??? Sed ??? Dolor de vale ??? Tener aliento con olor a frutas ??? Malestar estomacal (n??useas) o v??mitos ??? Dolor abdominal Si tiene s??ntomas de hiperglucemia, h??gase un an??lisis de dipak para saber cu??l es shannon nivel deaz??car en la dipak. Si est?? por encima del rango normal, use la dosis regular de insulina que leindic?? el proveedor de atenci??n m??dica. Llame al proveedor para que lo aconseje si no le indicaron el rango para la dosis de insulina. Si shannon nivel de az??car en la dipak es de m??s de 240??mg/dl,compruebe la presencia de cetonas en la orina. ?? Atenci??n de seguimiento Programe cristobal zarina de seguimiento con el proveedor de atenci??n m??dica, o seg??n le hayan indicado.Es posible que necesite reunirse con el proveedor la semana pr??xima. Es probable que juntos revisen gissel registros de nivel de az??car en la dipak. Puede que sea necesario hacer cambios en la dosis de insulina u otros medicamentos que tome para la diabetes. Tambi??n le pueden recomendar que use un sistema de control continuo de la glucosa. [facility] es para ayudar a que usted y el equipo de atenci??nm??dica tengan cristobal visi??n m??s amplia del control del nivel de az??car en la dipak. ?? Cu??ndo debe buscar atenci??n m??dica Llame al proveedor de atenci??n m??dica de inmediato si ocurre algo de lo siguiente: ??? Tiene s??ntomas de nivel alto de az??car en la dipak que no mejoran con el tratamiento que le indic?? el proveedor. [facility] sucede especialmente si usted adem??s presenta cetonas en la orina. ??? El nivel de az??car en la dipak est?? por encima de los 300??mg/dl. Si no puede acercarse a shannon proveedor, vaya a lasala de emergencias de un hospital o a un centro de atenci??n de urgencia. ?? Cu??ndo llamar al?? 911 Llame al?? 911 ante cualquiera de los siguientes s??ntomas: ??? Confusi??n ??? Mareos, aturdimientoo p??rdida del conocimiento ??? Falta de aire ??? Dolor de pecho ??? Debilidad en un brazo, cristobal pierna o cristobal parte del olive ??? Problemas repentinos para hablar o renee ?? Last Reviewed Date: 2021 ?? [id number] [employer]. Todos los derechos reservados. Esta informaci??n no pretende sustituir la atenci??n m??dica profesional. S??lo shannon m??dico puede diagnosticar y tratar un problema de domenica. ?? Patient Care team information Care Team Personnel Name: Aster Pena RN Position: [facility] RN Member Role: Primary Care Nurse Name: Dunia Phillip RN Position: [facility] RN Member Role: Primary Care Nurse Name: Alon Gonzalez RN Position: [facility] RN Member Role: Primary Care Nurse Name: Lisette Trejo RN Position: [facility] RN Member Role: Primary Care Nurse Name: Jessica Canseco RN Position: [facility] RN Member Role: Primary Care Nurse Name: Dayanna Rosas MD Position: [facility] Outreach Member Role: PCP Address: Address: [address] [place] [address] Name: Erica Archer RN Position: [facility] RN Supv Member Role: Primary Care Nurse Name: Vickie Lyons Position: [facility] Outreach Member Role: Lifetime Consulting Physician Name: Martine Carr RN Position: [facility] RN Member Role: Primary Care Nurse Name: Indira Monsalve RN Position: [facility] RN Member Role: Primary Care Nurse Name: Loren Mcmanus RN Position: [facility] RN Member Role: Primary Care Nurse Name: Marisela Lobo LPN Position: [facility] RN Member Role: Primary Care Nurse Name: Mp Zarco RN Position: [facility] RN Member Role: Primary Care Nurse Name: Britney Henao RN Position: [facility] RN Member Role: Primary Care Nurse Name: Blayne Hughes RN Position: [facility] RN Member Role: Primary Care Nurse Name: Norma Art RN Position: [facility] RN Member Role: Primary Care Nurse Name: Mecca Boyd RN Position: [facility] RN Member Role: Primary Care Nurse Name: Katie Evans RN Position: [facility] RN Member Role: Primary Care Nurse Name: Leonor Mccormick RN Position: [facility] RN Member Role: Primary Care Nurse Name: Hortensia Garrison Position: [facility] Outreach Member Role: Lifetime Consulting Physician Name: Paige Morris RN Position: [facility] RN Member Role: Primary Care Nurse Name: Shauna Angela RN Position: [facility] RN Member Role: Primary Care Nurse Name: Trini Starr RN Position: [facility] RN Member Role: Primary Care Nurse Name: Susie Monson RN Position: [facility] RN Member Role: Primary Care Nurse Name: Meena Castro RN Position: [facility] RN Member Role: Primary Care Nurse Name: Toya Wharton RN Position: [facility] ED RN W/OE and Tasks Member Role: Patient Care Provider Name: Stuart De Anda MD Position: [facility] ED Medicine MD Member Role: Admitting Physician Address: Address: [address] [place] [address]- Name: Triston Ferrari Position: [facility] ED TA JERRI Name: Amanda Henao Position: [facility] Associate Professional Member Role: ED Physician Security System Technician Address: Address: [address] [place] [address]- Care Team Related Persons Name: PAIGE TALBERT Address: [place] [address] Name: CAMRON VELASQUEZ Address: [place] [address] Name: ANTIONE SETHI Address: home [address] [place] [id number]
--- OUTSIDE RECORDS SUMMARY | 2023-03-19 20:03 | XMS_ITS | Continuity of Care Document ---
Author Name Unknown Organization [facility] ter Address [address] [place] [address]- Care Team Providers Care Spout Liner Name Role Phone Kathy Buck MD Primary Care Physician [phone] [id number] Date(s): 02/04/21 - 02/04/[address] [address]- Discharge Disposition: A-D/C Walkout Attending Physician: Not on Staff, Attending MD [...] 0 Refills, Maintenance, 10/05/19 15:29:00 EDT, Tablet, [facility]/pharmacy #[id number], 144.78, cm, 10/05/19 14:50:00 EDT, Height, 89.5, kg, 10/01/19 20:04:00 EDT,Dry Weight Start Date: 10/05/19 Stop Date: 11/04/19 Status: Ordered fluticasone 50 mcg/inh nasal spray 1 sprays, Nares, Both, 2 times a day, # 16 Gm, 0 Refills, Maintenance, 12/01/20 4:52:00 EDT, [place],Partial fill upon patient request if the prescription [...] Mouth, Daily, CONTACT OFFICE FOR FURTHER REFILLS [phone], # 15 tablet, 0 Refills, Maintenance, 10/26/20 12:04:00 EDT, [id number], 128, cm, 10/02/20 15:05:00 EDT, Height, 62, kg, 09/27/20 0:49:00 EDT, Dry Weight Start Date: 10/26/20 Status: Ordered Norvasc 2.5 mg oral tablet 2.5 mg, 1, tablet, By Mouth, Daily, Please conctact office for apt. for further refills [phone], #30 tablet, Refills 1, Tot. Refills 1, Maintenance, 08/03/20 11:28:00 EDT, Route to Pharmacy Electronically, [facility], y convert t... Start Date: 08/03/20 [...] conctact office for apt. for further refills [phone], # 60 tablet, 1 Refills, Maintenance, 08/03/20 11:29:00 EDT, Tablet, [facility], may convert to 90 days at [...] recent to oldest [Reference Range]: 1 2 Height 145 cm (02/04/21 11:32 AM) Weight 66 kg (02/04/21 11:32 AM) Oxygen Saturation [94-100 %] 100 % (02/04/21 11:24 AM) 100 % (02/04/21 11:14 AM) Pulse Rate [55-90 bpm] 51 bpm *L* (02/04/21 11:24 AM) 61 bpm (02/04/21 11:14 AM) Blood Pressure [90-138/55-84 mm Hg] 123/ 37mm Hg (02/04/21 11:24 AM) Respiratory Rate [16-30 br/min] 12 br/mi n *L* (02/04/21 11:24 AM) Temperature [96.8-100.4 DegF] 98.4 DegF (02/04/21 11:24 AM) Mode of Delivery (Oxygen) Room air (02/04/21 11:24 AM) Room air (02/04/21 11:14 AM) Blood pressure sites Arm, right (02/04/21 11:24 AM) Temperature Route Oral (02/04/21 11:24 AM) Dry Weight 66 kg (02/04/21 11:32 AM) Weight Obtained Via Patient/family state d (02/04/21 11:32 AM) Dry Weight Obtained Via Patient/family s tated (02/04/21 11:32 AM) Social History Social History Type Response Smoking Status Never (less than 100 in lifetime) entered on: 07/22/19 Sex
--- OUTSIDE RECORDS SUMMARY | 2023-03-19 20:03 | XMS_ITS | Continuity of Care Document ---
Author Name Unknown Organization [facility] Address [address] [facility], [address] Floor, [address] [place] [address]- Care Team Providers Care Real Estate Professor Name Role Phone Luis Fernando Nobles MD Primary Care Physician Encounter [facility] Date(s): 02/02/19 - 05/18/19 [facility] [address], [address], [address] [place] [address]- [facility] Attending Physician: Giovani Greco MD Admitting Physician: Giovani Greco MD Referring Physician: Luis Fernando Nobles MD Allergies, Adverse Reactions, Alerts Substance Reaction Severity Status NKA Active Immunizations Not Given Vaccine Date Status Refusal Reason pneumococcal 13-valent vaccine 12/16/18 Not Given Patient Refuses Medications aspirin 81 mg oral delayed release tablet TAKE 1 TABLET BY MOUTH EVERY MORNING Start Date: 12/15/18 Status: Ordered atorvastatin 80 mg oral tablet = 80 mg, By Mouth, Daily at bedtime, # 30 tablet, 0 Refills, Maintenance, 12/17/18 16:09:09 EDT, Tablet Start Date: 12/17/18 Status: Ordered bisacodyl 5 mg oral delayed release tablet TAKE 1 TABLET EVERY DAY NEEDED Start Date: 12/15/18 Status: Ordered Docusate Sodium 100 Mg Softgel TAKE 1 CAPSULE TWICE DAILY NEEDED. STOP FOR FOR DIARRHEA Start Date: 12/15/18 Status: Ordered fenofibrate 134 mg oral capsule TAKE 1 CAPSULE BY MOUTH EVERY EVENING WITH FOOD Start Date: 12/15/18 Status: Ordered Humalog Kwik Pen 100 units/mL subcutaneous injection = 15 units, Subcutaneous Injection, 3 times a day before meals Start Date: 12/15/18 Status: Ordered ketorolac 0.5% ophthalmic solution PLACE 1 DROP IN EACH OPERATED EYE 2X/DAY X4 WEEKS. BRING TO OFFICE DAY AFTER SURGERY Start Date: 12/15/18 Status: Ordered lactulose 10 gm/15 ml oral syrup TAKE 15MLS ONCE DAILY Start Date: 12/15/18 Status: Ordered magnesium oxide 400 mg oral tablet TAKE 1 TABLET EVERY MORNING DIRECTED Start Date: 12/15/18 Status: Ordered methylcellulose 500 mg oral tablet TAKE 2 TABLETS ONCE DAILY. DRINK 8 OUNCES WITH TABLETS Start Date: 12/15/18 Status: Ordered Norvasc 2.5 mg oral tablet 2.5 mg, 1, tablet, By Mouth, Daily, # 30 tablet, Refills 0, Tot. Refills 0, Maintenance, 02/17/19 13:57:41 EDT, Print Requisition Start Date: 02/17/19 Status: Ordered nystatin topical [id number] u/gm powder 1 application, Topically, 3 times a day, apply to skin below vagina, # 15 Gm, 0 Refills, Maintenance, 10/13/18 4:47:30 EDT, Powder Start Date: 10/13/18 Status: Ordered ofloxacin 0.3% ophthalmic solution PLACE 1 DROP IN EACH OPERATED EYE 4X/DAY X1 WEEK. BRING TO DR. OFFICE DAY AFTER SURGERY Start Date: 12/15/18 Status: Ordered prednisolone ophthalmic acetate 1% suspension PLACE 1 DROP IN EACH OPERATED EYE 4X/DAY X4 WEEKS. BRING TO DR OFFICE DAY AFTER SURGERY Start Date: 12/15/18 Status: Ordered PT eval and treat PT eval and treat, See Instructions, # 1 application, Refills 0, Tot. Refills 0, Maintenance, PT eval and treat, 02/17/19 14:00:02 EDT, Compound Start Date: 02/17/19 Status: Ordered raNITIdine 150 mg oral tablet TAKE 1 TABLET BY MOUTH EVERY MORNING Start Date: 12/15/18 Status: Ordered Senna 8.6 mg oral tablet TAKE 2 TABLETS EVERY DAY AT BEDTIME NEEDED Start Date: 12/15/18 Status: Ordered Sm Fiber Capsule TAKE 1 CAPSULE THREE TIMES DAILY IN THE MORNING, AT NOON, AND IN THE EVENING WITH MEALS Start Date: 12/15/18 Status: Ordered Toujeo SoloStar 300 units/mL subcutaneous solution INJECT 60 UNITS SUBCUTANEOUSLY ONCE DAILY Start Date: 12/15/18 Status: Ordered traZODone 50 mg oral tablet TAKE 1 TABLET BY MOUTH AT BEDTIME Start Date: 12/15/18 Status: Ordered Trulicity Pen 0.75 mg/0.5 mL subcutaneous solution INJECT ONE PEN (=0.75MG) SUBCUTANEOUSLY ONCE A WEEK DIRECTED Start Date: 12/15/18 Status: Ordered Vitamin D3 2000 intl units oral tablet TAKE 1 TABLET BY MOUTH EVERY MORNING Start Date: 12/15/18 Status: Ordered Walker with wheels Walker with wheels, See Instructions, # 1 application, Refills 0, Tot. Refills 0, Maintenance, Walker with wheels, 02/17/19 13:57:47 EDT, Compound Start Date: 02/17/19 Status: Ordered
--- OUTSIDE RECORDS SUMMARY | 2023-03-19 20:03 | XMS_ITS | Continuity of Care Document ---
Author Name Unknown Organization [facility] ter Address [address] [place] [address]- Care Team Providers Care Drilling Contractor Name Role Phone Luis Fernando Nobles MD Primary Care Physician [id number] Date(s): 08/18/19 - 08/18/[address] [address]- [facility] Encounter Diagnosis Diarrhea(Final) - 08/18/19 Urinary tract infection(Final) - 08/18/19 Discharge Disposition: A-D/C Home Attending Physician: Randi Choe MD Admitting Physician: Randi Choe MD Referring Physician: Not on Staff, Referring [...] 07/28/19 10:09:00 EDT, Route to Pharmacy Electronically, [facility], may convert to 90daysat patient request, 127, cm, 07/22/19 11:16:00 EDT,... Start Date: 07/28/19 Status: Ordered Humalog Kwik Pen 100 units/mL subcutaneous injection = 15 units, Subcutaneous Injection, 3 times a day before meals Start Date: 12/15/18 Status: Ordered lactulose 10 gm/15 ml oral syrup TAKE 15MLS ONCE DAILY Start Date: 12/15/18 Status: Ordered Macrobid macrocrystals-monohydrate 100 mg oral capsule 1 capsule = 100 mg, By Mouth, 2 times a day, for 7 days, # 14 capsule, 0 Refills, Acute 08/25/19 18:05:00 EDT, 08/18/19 18:05:00 EDT, Capsule, [facility], 127, cm, 07/22/19 11:16:00 EDT, Height, 78.8, kg, 07/10/19 10:13:00 EDT, Dry... Start Date: 08/18/19 Stop Date: 08/25/19 Status: Ordered Macrobid macrocrystals-monohydrate 100 mg oral capsule 1 capsule = 100 mg, By Mouth, 2 times a day, for 7 days, # 14 capsule, 0 Refills, Acute 08/25/19 18:46:00 EDT, 08/18/19 18:46:00 EDT, Capsule, [facility]/pharmacy #[id number], 127, cm, 07/22/19 11:16:00 EDT, Height, 78.8, kg, 07/10/19 10:13:00 EDT, Dry Weight Start Date: 08/18/19 Stop Date: 08/25/19 Status: Ordered magnesium oxide 400 mg oral [...] 07/28/19 10:09:00 EDT, Route to Pharmacy Electronically, [facility], may convert to 90 days at patient request, 127, cm, 07/22/19 11:16:0... Start Date: 07/28/19 Stop Date: 07/22/20 Status: Ordered Norvasc 2.5 mg oral tablet 2.5 mg, 1, tablet, By Mouth, Daily, # 30 tablet, Refills 11, Tot. Refills 11, Maintenance, 07/27/2009:09:00 EDT, Route to Pharmacy Electronically, [facility], y convert to 90 days at patient request, 127, cm, 07/22/19 11:16:00 EDT... Start Date: 07/28/19 Status: Ordered nystatin topical 554140 u/gm powder 1 application, Topically, 3 times [...] Acute07/27/20 10:11:00 EDT, 07/28/19 10:09:00 EDT, Tablet, [facility], 127, cm, 07/22/19 11:16:00 EDT, [...] 11 Refills, Maintenance, 07/28/19 10:09:00 EDT, Tablet, [facility], may convert to 90 days [...] recent to oldest [Reference Range]: 1 2 Oxygen Saturation [94-100 %] 100 % (08/18/19 2:50 PM) 100 % (08/18/19 12:32 PM) Pulse Rate [55-90 bpm] 72 bpm (08/18/19 2:50 PM) 77 bpm (08/18/19 12:32 PM) Blood Pressure [90-138/55-84 mm Hg] 126/ 54mm Hg (08/18/19 2:50 PM) 122/54mm Hg (08/18/19 12:32 PM) Respiratory Rate [16-30 br/min] 20 br/mi n (08/18/19 2:50 PM) 14 br/min *L* (08/18/19 12:32 PM) Temperature [96.8-100.4 DegF] 98.7 DegF (08/18/19 12:32 PM) Mode of Delivery (Oxygen) Room air (08/18/19 2:50 PM) Room air (08/18/19 12:32 PM) Blood pressure sites Arm, left (08/18/19 2:50 PM) Arm, left (08/18/19 12:32 PM) Temperature Route Oral (08/18/19 12:32 PM) Social History Social History Type Response Smoking Status Never (less than 100 in lifetime) entered on: 07/22/19 Sex
--- OUTSIDE RECORDS SUMMARY | 2023-03-19 20:03 | XMS_ITS | Continuity of Care Document ---
Author Name Unknown Organization [facility] Address [address] [place] [address]- Care Team Providers Care Solar Installer Technician Name Role Phone Not on Staff, PCP Primary Care Physician Unavail able Encounter [facility] [place] [place] Date(s): 04/30/20 - 05/02/20 [facility] [address] [place] [id number] Discharge Disposition: A-D/C Home Attending Physician: Josue Moss MD Admitting Physician: Sahil Brice MD Referring Physician: Not on Staff, Referring [...] 07/28/19 10:09:00 EDT, Route to Pharmacy Electronically, [facility], may convert to 90daysat patient request, 127, cm, 07/22/19 11:16:00 EDT,... Start Date: 07/28/19 Status: Ordered enalapril 5 mg oral tablet 5 mg, Tablet, By Mouth, 05/02/20 9:00:00 EST Start Date: 05/02/20 Stop Date: 05/02/20 Status: Completed ferrous fumarate 300 mg oral tablet 1 tablet = 300 mg, By Mouth, Daily, # 30 tablet, 0 Refills, Maintenance, 10/05/19 15:29:00 EDT, Tablet, [facility]/pharmacy #[id number], 144.78, cm, 10/05/19 14:50:00 EDT, Height, [...] 0 Refills, Maintenance, 10/05/19 15:24:00 EDT, Nasal [place], [facility]/pharmacy #[id number], 1 sprays Nares, Both 2 times a day, 144.78, cm, 10/05/19 14:50:00 EDT, Height, 89.5, kg, 10/01/19 20:04:00 EDT, Dry... Start Date: 10/05/19 Status: Ordered insulin glargine 100 u/ml subcutaneous solution = 20 units, Subcutaneous Injection, Daily at bedtime, # 10 mL, 0 Refills, Maintenance, 10/05/19 15:24:00 EDT, Injection, [facility]/pharmacy #[id number], 144.78, cm, 10/05/19 14:50:00 EDT, Height, [...] 10/05/19 15:25:00 EDT, Route to Pharmacy Electronically, [facility]/pharmacy #[id number], 144.78, cm, 10/05/19 14:50:00 EDT, Height, 89.5, kg, 10/01/19 20:04:00 EDT,... Start Date: 10/05/19 Stop Date: 10/26/19 Status: Ordered metoprolol 25 mg oral tablet 12.5 mg, 0.5, tablet, By Mouth, Daily, # 15 tablet, Refills 11, Tot. Refills 11, Maintenance, 07/28/19 10:09:00 EDT, Route to Pharmacy Electronically, [facility], may convert to 90 days at patient request, 127, cm, 07/22/19 11:16:0... Start Date: 07/28/19 Stop Date: 07/22/20 Status: Ordered Norvasc 2.5 mg oral tablet 2.5 mg, 1, tablet, By Mouth, Daily, # 30 tablet, Refills 11, Tot. Refills 11, Maintenance, 07/27/2009:09:00 EDT, Route to Pharmacy Electronically, [facility], y convert to 90 days at patient request, 127, cm, 07/22/19 11:16:00 EDT... Start Date: 07/28/19 Status: Ordered Norvasc 5 mg oral tablet 2.5 mg, Tablet, By Mouth, 05/02/20 9:00:00 EST Start Date: 05/02/20 Stop Date: 05/02/20 Status: Completed Reglan 5 mg oral tablet 1 tablet = 5 mg, By Mouth, 4 times a day, PRN Nausea & Vomiting, # 120 tablet, 3 Refills, Acute07/27/20 10:11:00 EDT, 07/28/19 10:09:00 EDT, Tablet, [facility], 127, cm, 07/22/19 11:16:00 EDT, [...] 11 Refills, Maintenance, 07/28/19 10:09:00 EDT, Tablet, [facility], may convert to 90 days [...] Exam Date Time Procedure Performing Provider Status 04/30/20 6:20 PM Chest Portable Halima Hughes; Auth (Verified) Notes: (Chest Portable) Reason For Exam: Shortness of Breath RESULT: Chest Portable Chest Portable INDICATION: Hx of Present Illness: body aches, back pain, some SOB at home; Reason: Shortness of Breath; Clinical Question(s): CHF COMPARISON: 09/30/2019. FINDINGS: LINES AND TUBES: None. LUNGS AND PLEURA: There are low lung volumes. Minimal hazy opacities in the bases are noted probably atelectasis. There is mild vascular congestion. No effusion or pneumothorax. HEART, MEDIASTINUM AND ANIKET: Normal. BONES AND SOFT TISSUES: No acute abnormality. IMPRESSION: Low lung volumes. Mild vascular congestion and mild bibasilar atelectasis. No confluentopacity. WSN: [id number] Ordering Physician: Scottie Bell Dictated By: Halina Fregoso MD Dictated Date/Time: 04/30/20 6:35 pm Reviewed By: Halina Fregoso MD Signed By: Halina Fregoso MD Signed Date/Time: 04/30/20 6:35 pm Transcribed By: KEYSHA Transcribed Date/Time: 04/30/20 6:33 pm Vital Signs Most recent to oldest [Reference Range]: 1 2 3 Height 140 cm (05/02/20 12:00 PM) 140 cm (05/02/20 8:28 AM) 140 cm (05/02/20 5:09 AM) Oxygen Saturation [94-100 %] 99 % (05/02/20 12:00 PM) 97 % (05/02/20 8:28 AM) 96 % (05/02/20 5:09 AM) Pulse Rate [55-90 bpm] 54 bpm *L* (05/02/20 12:00 PM) 55 bpm (05/02/20 8:28 AM) 53 bpm *L* (05/02/20 5:09 AM) Blood Pressure [90-138/55-84 mm Hg] 163/55mm Hg *H* (05/02/20 12:00 PM) 139/50mm Hg *H* (05/02/20 9:55 AM) 139/50mm Hg *H* (05/02/20 9:54 AM) Respiratory Rate [16-30 br/min] 18 br/min (05/02/20 12:00 PM) 18 br/min (05/02/20 8:28 AM) 20 br/min (05/02/20 5:09 AM) Temperature [96.8-100.4 DegF] 97.8 DegF (05/02/20 12:00 PM) 98.2 DegF (05/02/20 8:28 AM) 97.8 DegF (05/02/20 5:09 AM) Mode of Delivery (Oxygen) Room air (05/02/20 12:00 PM) Room air (05/02/20 8:28 AM) Room air (05/02/20 5:09 AM) Blood pressure sites Arm, left (05/02/20 12:00 PM) Arm, right (05/02/20 8:28 AM) Arm, left (05/02/20 5:09 AM) Temperature Route Oral (05/02/20 12:00 PM) Oral (05/02/20 8:28 AM) Oral (05/02/20 5:09 AM) Social History Social History Type Response Smoking Status Never (less than 100 in lifetime) entered on: 07/22/19 Sex
--- OUTSIDE RECORDS SUMMARY | 2023-03-19 20:03 | XMS_ITS | Continuity of Care Document ---
Author Name Unknown Organization [facility] Address [address] [place] [address]- Care Team Providers Care Pharmacy Technologist Name Role Phone Heber FRANKLIN, Kathy Primary Care Physician Encounter [facility] [place] Date(s): 07/17/20 - 08/16/20 [facility] [address], [place] [address]ies, Adverse Reactions, Alerts Substance Reaction Severity [...] 0 Refills, Maintenance, 10/05/19 15:24:00 EDT, Nasal [place], [id number], 1 sprays Nares, Both 2 times [...] 0 Refills, Maintenance, 10/05/19 15:24:00 EDT, Injection, [facility]/pharmacy #[id number], 144.78, cm, 10/05/19 14:50:00 EDT, [...] 10/05/19 15:25:00 EDT, Route to Pharmacy Electronically, [facility]/pharmacy #[id number], 144.78, cm, 10/05/19 14:50:00 EDT, Height, 89.5, kg, 10/01/19 20:04:00 EDT,... Start Date: 10/05/19 Stop Date: 10/26/19 Status: Ordered metoprolol 25 mg oral tablet 12.5 mg, 0.5, tablet, By Mouth, Daily, Please conctact office for apt. for further refills [phone], # 15 tablet, Refills 1, Tot. Refills 1, Maintenance, 08/03/20 11:29:00 EDT, Route to Pharmacy Electronically, [facility], may conv... Start Date: 08/03/20 Stop Date: 10/02/20 Status: Ordered Norvasc 2.5 mg oral tablet 2.5 mg, 1, tablet, By Mouth, Daily, Please conctact office for apt. for further refills [phone], #30 tablet, Refills 1, Tot. Refills 1, Maintenance, 08/03/20 11:28:00 EDT, Route to Pharmacy Electronically, [facility], y convert t... Start Date: 08/03/20 Status: Ordered Sm Fiber Capsule TAKE 1 CAPSULE THREE TIMES DAILY IN THE MORNING, AT NOON, AND IN THE EVENING WITH MEALS Start Date: 12/15/18 Status: Ordered ticagrelor 90 mg oral tablet 1 tablet = 90 mg, By Mouth, 2 times a day, Please conctact office for apt. for further refills [phone], # 60 tablet, 1 Refills, Maintenance, 08/03/20 11:29:00 EDT, Tablet, [facility], may convert to 90 days [...]
--- OUTSIDE RECORDS SUMMARY | 2023-03-19 20:03 | XMS_ITS | Continuity of Care Document ---
Author Name Unknown Organization [facility] Address [address] [place] [address]- Care Team Providers Care Feller Buncher Operator Name Role Phone Jennifer Green DO Primary Care Physician Encounter [facility] [place] Date(s): 10/20/20 - 10/25/[address] [address]- Discharge Disposition: A-Transfer SNF Attending Physician: Scottie Kay MD Admitting Physician: Sha Morrison DO Referring Physician: Not on Staff, Referring MD Allergies, Adverse Reactions, Alerts Substance Reaction Severity Status NKA Active Immunizations Not Given Vaccine Date Status Refusal Reason pneumococcal 13-valent vaccine 12/16/18 Not Given Patient Refuses Medications acetaminophen 325 mg oral tablet 650 mg, Tablet, By Mouth, Every 4 hours for 30 days, PRN for Other, pain/fever, Routine, 10/20/20 22:03:00 EDT, Stop date 11/19/20 22:02:00 EDT Start Date: 10/20/20 Stop Date: 10/26/20 Status: Discontinued aspirin 81 mg oral delayed release tablet TAKE 1 TABLET BY MOUTH EVERY MORNING Start Date: 12/15/18 Status: Ordered Bactrim DS 800 mg-160 mg oral tablet 1 tablet, By Mouth, 2 times a day, for 7 days, # 14 tablet, 0 Refills, Acute 10/31/20 12:48:00 EDT,10/24/20 12:48:00 EDT, Tablet, Partial fill upon patient request if the prescription is for a schedule II opioid drug. Start Date: 10/24/20 Stop Date: 10/31/20 Status: Ordered bisacodyl 5 mg oral delayed [...] 0 Refills, Maintenance, 10/05/19 15:29:00 EDT, Tablet, [facility]/pharmacy #[id number], 144.78, cm, 10/05/19 14:50:00 EDT, Height, 89.5, kg, 10/01/19 20:04:00 EDT,Dry Weight Start Date: 10/05/19 Stop Date: 11/04/19 Status: Ordered furosemide 20 mg oral tablet [...] 10/05/19 15:25:00 EDT, Route to Pharmacy Electronically, [facility]/pharmacy #[id number], 144.78, cm, 10/05/19 14:50:00 EDT, Height, 89.5, kg, 10/01/19 20:04:00 EDT,... Start Date: 10/05/19 Stop Date: 10/26/19 Status: Ordered metoprolol 25 mg oral tablet 12.5 mg, 0.5, tablet, By Mouth, Daily, Please conctact office for apt. for further refills [phone], # 15 tablet, Refills 0, Tot. Refills 0, Maintenance, 10/04/20 10:55:00 EDT, Route to Pharmacy Electronically, [facility]/pharmacy #[id number], may convert to 90 da... Start Date: 10/04/20 Stop Date: 11/03/20 Status: Ordered metoprolol 25 mg oral tablet 12.5 mg, Tablet, By Mouth, 10/25/20 9:00:00 EDT Start Date: 10/25/20 Stop Date: 10/25/20 Status: Completed Norvasc 2.5 mg oral tablet 2.5 mg, 1, tablet, By Mouth, Daily, Please conctact office for apt. for further refills [phone], #30 tablet, Refills 1, Tot. Refills 1, Maintenance, 08/03/20 11:28:00 EDT, Route to Pharmacy Electronically, [facility], y convert t... Start Date: 08/03/20 Status: Ordered oxyCODONE 5 mg oral tablet 2.5 mg, Tablet, By Mouth, Every 6 hours, PRN for Pain , Severe, Routine, 10/21/20 10:00:00 EDT Start Date: 10/21/20 Stop Date: 10/26/20 Status: Discontinued rifAXIMin 550 mg oral tablet 1 tablet [...] conctact office for apt. for further refills [phone], # 60 tablet, 1 Refills, Maintenance, 08/03/20 11:29:00 EDT, Tablet, [facility], may convert to 90 [...] Results Orders for Microbiology Reports Name Date Blood Culture 10/21/20 Blood Culture #2 10/21/20 Urine Culture (URINE CULTURE) 10/20/20 Microbiology Reports TEST:Blood Culture STATUS:Unauthenticated BODY SITE: SOURCE:Blood COLLECTED DATE/TIME:10/21/20 6:49 AM Blood Culture SPECIMEN DESCRIPTION : BLOOD RT H SPECIAL REQUESTS : NONE CULTURE : NO GROWTH 4 DAYS REPORT STATUS : PRELIMINARY REPORT TEST:Blood Culture, Second Order STATUS:Unauthenticated BODY SITE: SOURCE:Blood COLLECTED DATE/TIME:10/21/20 6:49 AM Blood Culture, Second Order SPECIMEN DESCRIPTION : BLOOD NO SITE SPECIAL REQUESTS : NONE CULTURE : NO GROWTH 4 DAYS REPORT STATUS : PRELIMINARY REPORT TEST:Urine Culture STATUS:Auth (Verified) BODY SITE: SOURCE:URINE COLLECTED DATE/TIME:10/20/20 6:05 PM Urine Culture SPECIMEN DESCRIPTION : URINE SPECIAL REQUESTS : NONE CULTURE : >100,000 COL/ML ESCHERICHIA COLI REPORT STATUS : FINAL 10/23/2020 ORGANISM >100,000 COL/ML ESCHERICHIA COLI METHOD MIN. INHIB. CONC. (MCG/ML) AMPICILLIN RESISTANT AMPICILLIN/SULBACTAM RESISTANT AMOXICILLIN/CLAVULAN SUSCEPTIBLE CEFAZOLIN INTERMEDIATE CEFEPIME SUSCEPTIBLE CEFTRIAXONE SUSCEPTIBLE CIPROFLOXACIN RESISTANT ERTAPENEM SUSCEPTIBLE GENTAMICIN SUSCEPTIBLE LEVOFLOXACIN RESISTANT MEROPENEM SUSCEPTIBLE NITROFURANTOIN SUSCEPTIBLE PIPERACILLIN/TAZOBAC SUSCEPTIBLE TRIMETH/SULFAMETHOX SUSCEPTIBLE TETRACYCLINE SUSCEPTIBLE Radiology Reports * Exam Date Time Procedure Performing Provider Status 10/21/20 10:24 AM XR Femur 2 Views Left Janette Acharya; Modified Notes: (XR Femur 2 Views Left) Reason For Exam: Pain RESULT: Femur 2 Views Left Femur 2 Views Left, views Reason: Pain; Clinical Question(s): Fracture COMPARISON: Pelvis and left hip exam 10/20/2020 FINDINGS: No evidence of fracture IMPRESSION: No evidence of fracture WSN: [id number] Ordering Physician: Abhi Lopez Dictated By: Scottie Donato MD Dictated Date/Time: 10/21/20 4:16 pm Reviewed By: Scottie Donato MD Signed By: Scottie Donato MD Signed Date/Time: 10/21/20 4:16 pm Transcribed By: KEYSHA Transcribed Date/Time: 10/21/20 4:15 pm * Exam Date Time Procedure Performing Provider Status 10/21/20 10:24 AM Tibia/Fibula 2 Views Left Me emma Acharya; Auth (Verified) Notes: (Tibia/Fibula 2 Views Left) Reason For Exam: Pain RESULT: Tibia/Fibula 2 Views Left Tibia/Fibula 2 Views Left Reason: Pain; Clinical Question(s): Fracture COMPARISON: Left knee 07/07/2019 FINDINGS: No evidence of fracture or focal lesion Incidental plantar calcaneal spur. IMPRESSION: No evidence of fracture WSN: [id number] Ordering Physician: Abhi Lopez Dictated By: Scottie Donato MD Dictated Date/Time: 10/21/20 4:15 pm Reviewed By: Scottie Donato MD Signed By: Scottie Donato MD Signed Date/Time: 10/21/20 4:15 pm Transcribed By: CSB Transcribed Date/Time: 10/21/20 4:13 pm * Exam Date Time Procedure Performing Provider Status 10/20/20 5:04 PM XR Hip w/Pelvis 2-3 View Left Miguel Kurtz; Auth (Verified) Notes: (XR Hip w/Pelvis 2-3 View Left) Reason For Exam: With Pain;Trauma RESULT: XR Hip w/Pelvis 2-3 View Left XR Hip w/Pelvis 2-3 View Left Hx of Present Illness: Pt. comes from home after falling today getting out of bed, ems stated she did not hit head or lose consciousness. Pt. also fell yesterday. [place] states she has been very confused per EMS.; Reason: Trauma; With Pain; Clinical Question(s): Fracture COMPARISON: None. FINDINGS: There is no fracture or dislocation. Bilateral hip mild arthropathy. Normal soft tissues. IMPRESSION: No acute abnormality. WSN: [id number] Ordering Physician: Ricardo Nunez Dictated By: Osbaldo Lyon MD Dictated Date/Time: 10/20/20 5:20 pm Reviewed By: Osbaldo Lyon MD Signed By: Osbaldo Lyon MD Signed Date/Time: 10/20/20 5:20 pm Transcribed By: CSB Transcribed Date/Time: 10/20/20 5:19 pm * Exam Date Time Procedure Performing Provider Status 10/20/20 5:04 PM Ankle Min 3 Views Right Jerardo Lance riddle; Auth (Verified) Notes: (Ankle Min 3 Views Right) Reason For Exam: with Pain;Trauma RESULT: Ankle Min 3 Views Right Ankle Min 3 Views Right Hx of Present Illness: Pt. comes from home after falling today getting out of bed, ems stated she did not hit head or lose consciousness. Pt. also fell yesterday. [place] states she has been very confused per EMS.; Reason: Trauma; with Pain; Clinical Question(s): Fracture. COMPARISON: None. FINDINGS: No evidence of acute or healing fracture or bone lesion. Intact ankle mortise and talar dome. No arthritic changes. Normal soft tissues. IMPRESSION: No acute abnormality. WSN: [id number] Ordering Physician: Ricardo Nunez Dictated By: Osbaldo Lyon MD Dictated Date/Time: 10/20/20 5:15 pm Reviewed By: Osbaldo Lyon MD Signed By: Osbaldo Lyon MD Signed Date/Time: 10/20/20 5:15 pm Transcribed By: KEYSHA Transcribed Date/Time: 10/20/20 5:15 pm Vital Signs Most recent to oldest [Reference Range]: 1 2 3 Oxygen Saturation [94-100 %] 100 % (10/25/20 7:00 PM) 100 % (10/25/20 9:21 AM) 100 % (10/24/20 7:00 PM) Pulse Rate [55-90 bpm] 96 bpm *H* (10/25/20 7:00 PM) 73 bpm (10/25/20 9:21 AM) 73 bpm (10/25/20 8:58 AM) Blood Pressure [90-138/55-84 mm Hg] 118/50mm Hg (10/25/20 7:00 PM) 110/64mm Hg (10/25/20 9:21 AM) 110/64mm Hg (10/25/20 8:58 AM) Respiratory Rate [16-30 br/min] 18 br/min (10/25/20 7:00 PM) 18 br/min (10/25/20 9:55 AM) 18 br/min (10/25/20 9:53 AM) Temperature [96.8-100.4 DegF] 98.7 DegF (10/25/20 7:00 PM) 98.1 DegF (10/25/20 9:21 AM) 98.6 DegF (10/24/20 7:00 PM) Mode of Delivery (Oxygen) Room air (10/25/20 7:00 PM) Room air (10/25/20 9:21 AM) Room air (10/24/20 7:00 PM) Blood pressure sites Arm, left (10/25/20 7:00 PM) Arm, left (10/25/20 9:21 AM) Arm, left (10/24/20 7:00 PM) Temperature Route Oral (10/25/20 7:00 PM) Oral (10/25/20 9:21 AM) Oral (10/24/20 7:00 PM) Social History Social History Type Response Smoking Status Never (less than 100 in lifetime) entered on: 07/22/19 Sex Female
--- OUTSIDE RECORDS SUMMARY | 2023-03-19 20:03 | XMS_ITS | Continuity of Care Document ---
Author Name Unknown Organization [facility] Address [address] [place] [address]- Care Team Providers Care Editor & Co Founder Name Role Phone Kathy Buck MD Primary Care Physician [phone] [id number] Date(s): 04/18/21 - 05/18/21 [facility] [address] [place] [address]- Attending Physician: Mihaela Hawk Admitting Physician: Mihaela Hawk Referring Physician: Mihaela Hawk Allergies, Adverse Reactions, Alerts No Known Allergies Immunizations Not Given Vaccine Date Status Refusal [...] 0 Refills, Maintenance, 10/05/19 15:29:00 EDT, Tablet, [facility]/pharmacy #[id number], 144.78, cm, 10/05/19 14:50:00 EDT, Height, 89.5, kg, 10/01/19 20:04:00 EDT,Dry Weight Start Date: 10/05/19 Stop Date: 11/04/19 Status: Ordered fluticasone 50 mcg/inh nasal spray 1 sprays, Nares, Both, 2 times a day, # 16 Gm, 0 Refills, Maintenance, 12/01/20 4:52:00 EDT, [place],Partial fill upon patient request if the prescription [...] Mouth, Daily, CONTACT OFFICE FOR FURTHER REFILLS [phone], # 15 tablet, 0 Refills, Maintenance, 10/26/20 12:04:00 EDT, [id number], 128, cm, 10/02/20 15:05:00 EDT, Height, 62, kg, 09/27/20 0:49:00 EDT, Dry Weight Start Date: 10/26/20 Status: Ordered Norvasc 2.5 mg oral tablet 2.5 mg, 1, tablet, By Mouth, Daily, Please conctact office for apt. for further refills [phone], #30 tablet, Refills 1, Tot. Refills 1, Maintenance, 08/03/20 11:28:00 EDT, Route to Pharmacy Electronically, [facility], y convert t... Start Date: [...] conctact office for apt. for further refills [phone], # 60 tablet, 1 Refills, Maintenance, 08/03/20 11:29:00 EDT, Tablet, [facility], may convert to 90 days [...]
--- OUTSIDE RECORDS SUMMARY | 2023-03-19 20:03 | XMS_ITS | Continuity of Care Document ---
Author Name Unknown Organization [facility] Address [address] [place] [address]- Care Team Providers Care Heater Room Helper Name Role Phone Anthony FRANKLIN, Boris Watters Primary Care Physician [id number] Date(s[facility] 07/19/20 - 09/30/20 [facility] [address] [place] [address] Attending Physician: Forrest Pace MD Admitting Physician: [...] 0 Refills, Maintenance, 10/05/19 15:24:00 EDT, Nasal [place], [facility]/pharmacy #[id number], 1 sprays Nares, Both [...] 0 Refills, Maintenance, 10/05/19 15:24:00 EDT, Injection, [facility]/pharmacy #[id number], 144.78, cm, 10/05/19 14:50:00 [...] 10/05/19 15:25:00 EDT, Route to Pharmacy Electronically, [facility]/pharmacy #[id number], 144.78, cm, 10/05/19 14:50:00 EDT, Height, 89.5, kg, 10/01/19 20:04:00 EDT,... Start Date: 10/05/19 Stop Date: 10/26/19 Status: Ordered metoprolol 25 mg oral tablet 12.5 mg, 0.5, tablet, By Mouth, Daily, Please conctact office for apt. for further refills [phone], # 15 tablet, Refills 1, Tot. Refills 1, Maintenance, 08/03/20 11:29:00 EDT, Route to Pharmacy Electronically, [facility], september conv... Start Date: 08/03/20 Stop Date: 10/02/20 Status: Ordered Norvasc 2.5 mg oral tablet 2.5 mg, 1, tablet, By Mouth, Daily, Please conctact office for apt. for further refills [phone], #30 tablet, Refills 1, Tot. Refills 1, Maintenance, 08/03/20 11:28:00 EDT, Route to Pharmacy Electronically, [facility], y convert t... Start Date: 08/03/20 [...] conctact office for apt. for further refills [phone], # 60 tablet, 1 Refills, Maintenance, 08/03/20 11:29:00 EDT, Tablet, [facility], may convert to 90 days at [...]
--- OUTSIDE RECORDS SUMMARY | 2023-03-19 20:03 | XMS_ITS | Continuity of Care Document ---
Author Name Unknown Organization [facility] ter Address [address] [place] [address]- Care Team Providers Care Microcomputer Support Specialist Name Role Phone Heber FRANKLIN, Kathy Primary Care Physician [phone] Encounter [facility] [place] Date(s): 11/20/20 - 11/21/[address] [address]- Encounter Diagnosis Chest pain(Final) - 11/21/20 Discharge Disposition: A-D/C AMA Attending Physician: Danielle Peres MD Admitting Physician: Sahil Brice MD Referring [...] Maintenance, 10/05/19 15:29:00 EDT, Tablet, [facility]/pharmacy #[id number], 144.78, cm, 10/05/19 14:50:00 EDT, Height, [...] 10/05/19 15:25:00 EDT, Route to Pharmacy Electronically, [facility]/pharmacy #[id number], 144.78, cm, 10/05/19 14:50:00 EDT, Height, 89.5, kg, 10/01/19 20:04:00 EDT,... Start Date: 10/05/19 Stop Date: 10/26/19 Status: Ordered Metoprolol Tartrate 25 mg oral tablet 0.5 tablet, By Mouth, Daily, CONTACT OFFICE FOR FURTHER REFILLS [phone], # 15 tablet, 0 Refills, Maintenance, 10/26/20 12:04:00 EDT, [facility] STORE [id number], 128, cm, 10/02/20 15:05:00 EDT, Height, 62, kg, 09/27/20 0:49:00 EDT, Dry Weight Start Date: 10/26/20 Status: Ordered Norvasc 2.5 mg oral tablet 2.5 mg, 1, tablet, By Mouth, Daily, Please conctact office for apt. for further refills [phone], #30 tablet, Refills 1, Tot. Refills 1, Maintenance, 08/03/20 11:28:00 EDT, Route to Pharmacy Electronically, [facility], y convert t... Start Date: 08/03/20 Status: Ordered Norvasc 5 mg oral tablet 2.5 mg, Tablet, By Mouth, 11/21/20 10:37:00 EDT Start Date: 11/21/20 Stop Date: 11/21/20 Status: Completed rifAXIMin 550 mg oral tablet [...] conctact office for apt. for further refills [phone], # 60 tablet, 1 Refills, Maintenance, 08/03/20 11:29:00 EDT, Tablet, [facility], may convert to 90 days at patient request., 14... Start Date: 08/03/20 Stop Date: 10/02/20 Status: Ordered Toprol XL 25 mg oral tablet, extended release 12.5 mg, XL Tablet, By Mouth, 11/21/20 10:43:00 EDT Start Date: 11/21/20 Stop Date: 11/21/20 Status: Completed traZODone 50 mg oral tablet 50 mg, [...] Exam Date Time Procedure Performing Provider Status 11/21/20 2:09 AM Chest 2 Views Frontal and Lat Martha Delgado; Auth (Verified) Notes: (Chest 2 Views Frontal and Lat) Reason For Exam: Shortness of Breath RESULT: Chest 2 Views Frontal and Lat Chest 2 Views Frontal and Lat INDICATION: History of CAD status post LAD, cirrhosis. Abnormal blood work. COMPARISON: Multiple priors most recent 09/26/2020. CT abdomen and pelvis 08/17/2020. FINDINGS: LINES AND TUBES: None. LUNGS AND PLEURA: No new consolidation. Unchanged mild patchy opacity right lower lung, likely scarring. No pleural effusion. No pneumothorax. HEART, MEDIASTINUM AND ANIKET: Heart is normal in size. Aorta is mildly calcified. BONES AND SOFT TISSUES: No acute abnormality. Right upper quadrant surgical clips from prior cholecystectomy. IMPRESSION: No acute abnormality. I have personally reviewed the images and I agree with this report. WSN: [id number] Ordering Physician: Mecca Bella Dictated By: Ana Plaza MD Dictated Date/Time: 11/21/20 8:50 am Reviewed By: Sam Casas MD, V Signed By: Sam Casas MD, V Signed Date/Time: 11/21/20 8:55 am Transcribed By: KEYSHA Transcribed Date/Time: 11/21/20 8:31 am Vital Signs Most recent to oldest [Reference Range]: 1 2 3 Height 152 cm (11/21/20 11:14 AM) 152 cm (11/21/20 10:14 AM) Weight 62 kg (11/21/20 10:14 AM) Oxygen Saturation [94-100 %] 18 % *L* (11/21/20 11:14 AM) 100 % (11/21/20 10:14 AM) 100 % (11/21/20 8:32 AM) Pulse Rate [55-90 bpm] 78 bpm (11/21/20 1:11 PM) 72 bpm (11/21/20 11:14 AM) 58 bpm (11/21/20 10:14 AM) Body Mass Index [18.5-24.99] 26.84 *H* (11/21/20 10:14 AM) Blood Pressure [90-138/55-84 mm Hg] 145/60mm Hg *H* (11/21/20 1:11 PM) 145/50mm Hg *H* (11/21/20 1:11 PM) 143/57mm Hg *H* (11/21/20 11:14 AM) Respiratory Rate [16-30 br/min] 18 br/min (11/21/20 11:14 AM) 16 br/min (11/21/20 10:27 AM) 18 br/min (11/21/20 10:14 AM) Temperature [96.8-100.4 DegF] 97.7 DegF (11/21/20 11:14 AM) 97.6 DegF (11/21/20 10:14 AM) 97.6 DegF (11/21/20 8:32 AM) Liters per Minute 0 L/min (11/20/20 2:48 PM) Mode of Delivery (Oxygen) Room air (11/21/20 11:14 AM) Room air (11/21/20 10:14 AM) Room air (11/21/20 8:32 AM) Blood pressure sites Arm, left (11/21/20 11:14 AM) Arm, right (11/21/20 10:14 AM) Arm, right (11/21/20 8:32 AM) Temperature Route Oral (11/21/20 11:14 AM) Oral (11/21/20 10:14 AM) Oral (11/21/20 8:32 AM) Dry Weight 62 kg (11/21/20 10:14 AM) Social History Social History Type Response Smoking Status Never (less than 100 in lifetime) entered on: 07/22/19 Sex
--- OUTSIDE RECORDS SUMMARY | 2023-03-19 20:03 | XMS_ITS | Continuity of Care Document ---
Author Name Unknown Organization [facility] Address [address] [place] [address]- Care Team Providers Care Contact Officer Name Role Phone Dayanna Rosas MD Primary Care Physician [phone] Encounter [facility] [place] Date(s): 05/12/22 - 06/11/22 [facility] [address] [place] [address]- [place] Allergies, Adverse Reactions, Alerts No Known Allergies Immunizations Given and Recorded Vaccine Date Status Refusal Reason SARS-CoV-2 mRNA ([id number]) vax 07/09/21 Recorded SARS-CoV-2 (COVID-19) Ad26 vaccine [...] 0 Refills, Maintenance, 10/05/19 15:29:00 EDT, Tablet, [facility]/pharmacy #[id number], 144.78, cm, 10/05/19 14:50:00 EDT, Height, 89.5, kg, 10/01/19 20:04:00 EDT,Dry Weight Start Date: 10/05/19 Stop Date: 11/04/19 Status: Ordered fluticasone 50 mcg/inh nasal spray 1 sprays, Nares, Both, 2 times a day, # 16 Gm, 0 Refills, Maintenance, 12/01/20 4:52:00 EDT, [place],Partial fill upon patient request if the prescription is for a schedule II opioid drug. Start Date: 12/01/20 Status: Ordered insulin glargine 100 units/mL subcutaneous solution = 15 units, Subcutaneous Injection, Daily in AM, # 3.6 mL, 0 Refills, Maintenance, 03/08/22 13:57:00 EDT, Injection, [facility], Partial fill upon patient request [...] 5 Refills, Maintenance, 06/14/21 8:50:00 EST, Capsule, [facility]/pharmacy #[id number], Partial fill upon patient request if the prescription is for a schedule II opioid drug., 152, cm, 06/07/21 7:45:00 EST, [place]... Start Date: 06/14/21 Status: Ordered MiraLax oral powder for reconstitution = 17 Gm, By Mouth, 2 times a day before breakfast and dinne, dissolve in water before taking, # 527Gm, 11 Refills, Maintenance, 05/28/21 13:46:00 EST, REC Powder, [facility]/pharmacy #[id number], Partial fill upon patient request if the prescription is for a sche... Start Date: 05/28/21 Status: Ordered Norvasc 2.5 mg oral tablet 2.5 mg, 1, tablet, By Mouth, Daily, Please conctact office for apt. for further refills [phone], #30 tablet, Refills 1, Tot. Refills 1, Maintenance, 08/03/20 11:28:00 EDT, Route to Pharmacy Electronically, [facility], y convert t... Start Date: [...] 10/20/22 9:58:00 EDT, Route to Pharmacy Electronically, [facility]/pharmacy #[id number], Partial fill upon patient request if the [...] Care Nurse Name: Alon Gonzalez RN Position: [facility] RN Member Role: Primary Care Nurse Name: Lisette Trejo RN Position: [facility] RN Member Role: Primary Care Nurse Name: Jessica Canseco RN Position: [facility] RN Member Role: Primary Care Nurse Name: Dayanna Rosas MD Position: [facility] Outreach Member Role: PCP Address: Address: [address] [place] [id number] Name: Erica Archer RN Position: [facility] RN Supv Member Role: Primary Care Nurse Name: Vickie Lyons Position: [facility] Outreach Member Role: Lifetime Consulting Physician Name: Martine Carr RN Position: [facility] RN Member Role: Primary Care Nurse Name: Indira Monsalve RN Position: [facility] RN Member Role: Primary Care Nurse Name: Loren Mcmanus RN Position: [facility] RN Member Role: Primary Care Nurse Name: Marisela Lobo LPN Position: [facility] RN Member Role: Primary Care Nurse Name: Mp Zarco RN Position: [facility] RN Member Role: Primary Care Nurse Name: Britney Henao RN Position: [facility] RN Member Role: Primary Care Nurse Name: Blayne Hughes RN Position: [facility] RN Member Role: Primary Care Nurse Name: Norma Art RN Position: [facility] RN Member Role: Primary Care Nurse Name: Mecca Boyd RN Position: [facility] RN Member Role: Primary Care Nurse Name: Katie Evans RN Position: [facility] RN Member Role: Primary Care Nurse Name: Leonor Mccormick RN Position: [facility] RN Member Role: Primary Care Nurse Name: Hortensia Garrison Position: [facility] Outreach Member Role: Lifetime Consulting Physician Name: Paige Morris RN Position: [facility] RN Member Role: Primary Care Nurse Name: Shauna Angela RN Position: [facility] RN Member Role: Primary Care Nurse Name: Trini Starr RN Position: [facility] RN Member Role: Primary Care Nurse Name: Susie Monson RN Position: [facility] RN Member Role: Primary Care Nurse Name: Meena Castro RN Position: [facility] RN Member Role: Primary Care Nurse Care Team Related Persons Name: PAIGE TALBERT Address: [place] [address] Name: CAMRON VELASQUEZ Address: [place] [address] Name: ANTIONE SETHI Address: home [address] [place] [id number]
--- OUTSIDE RECORDS SUMMARY | 2023-03-19 20:03 | XMS_ITS | Continuity of Care Document ---
Author Name Unknown Organization [facility] Address [address] [place] [address]- Care Team Providers Care Rn Plastics Name Role Phone Anthony FRANKLIN, Boris Watters Primary Care Physician [facility] [id number] Date(s): 07/10/20 - 08/17/20 [facility] [address] [place] [id number] Attending Physician: Forrest Pace MD Admitting [...] 0 Refills, Maintenance, 10/05/19 15:24:00 EDT, Nasal [place], [facility]/pharmacy #[id number], 1 sprays Nares, Both 2 times [...] 0 Refills, Maintenance, 10/05/19 15:24:00 EDT, Injection, [facility]/pharmacy #[id number], 144.78, cm, 10/05/19 14:50:00 EDT, Height, [...] 10/05/19 15:25:00 EDT, Route to Pharmacy Electronically, [facility]/pharmacy #[id number], 144.78, cm, 10/05/19 14:50:00 EDT, Height, 89.5, kg, 10/01/19 20:04:00 EDT,... Start Date: 10/05/19 Stop Date: 10/26/19 Status: Ordered metoprolol 25 mg oral tablet 12.5 mg, 0.5, tablet, By Mouth, Daily, Please conctact office for apt. for further refills [phone], # 15 tablet, Refills 1, Tot. Refills 1, Maintenance, 08/03/20 11:29:00 EDT, Route to Pharmacy Electronically, [facility], may conv... Start Date: 08/03/20 Stop Date: 10/02/20 Status: Ordered Norvasc 2.5 mg oral tablet 2.5 mg, 1, tablet, By Mouth, Daily, Please conctact office for apt. for further refills [phone], #30 tablet, Refills 1, Tot. Refills 1, Maintenance, 08/03/20 11:28:00 EDT, Route to Pharmacy Electronically, [facility], y convert t... Start Date: 08/03/20 Status: Ordered Sm Fiber Capsule TAKE 1 CAPSULE THREE TIMES DAILY IN THE MORNING, AT NOON, AND IN THE EVENING WITH MEALS Start Date: 12/15/18 Status: Ordered ticagrelor 90 mg oral tablet 1 tablet = 90 mg, By Mouth, 2 times a day, Please conctact office for apt. for further refills [phone], # 60 tablet, 1 Refills, Maintenance, 08/03/20 11:29:00 EDT, Tablet, [facility], may convert to 90 days [...]
--- OUTSIDE RECORDS SUMMARY | 2023-03-19 20:03 | XMS_ITS | Continuity of Care Document ---
Author Name Unknown Organization [facility] Address [address] [place] [address]- Care Team Providers Care Aviation Safety Equipment Technician Name Role Phone Kathy Buck MD Primary Care Physician Encounter [facility] [id number] Date(s): 10/08/20 - 12/20/20 [facility] [address] [place] [address]- Attending Physician: Shante Alexis NP Admitting Physician: Shante Alexis NP Referring Physician: Shante Alexis NP Allergies, Adverse Reactions, [...] Maintenance, 10/05/19 15:29:00 EDT, Tablet, [facility]/pharmacy #[id number], 144.78, cm, 10/05/19 14:50:00 EDT, Height, 89.5, kg, 10/01/19 20:04:00 EDT,Dry Weight Start Date: 10/05/19 Stop Date: 11/04/19 Status: Ordered fluticasone 50 mcg/inh nasal spray 1 sprays, Nares, Both, 2 times a day, # 16 Gm, 0 Refills, Maintenance, 12/01/20 4:52:00 EDT, [place],Partial fill upon patient request if the prescription [...] Mouth, Daily, CONTACT OFFICE FOR FURTHER REFILLS [phone], # 15 tablet, 0 Refills, Maintenance, 10/26/20 12:04:00 EDT, [id number], 128, cm, 10/02/20 15:05:00 EDT, Height, 62, kg, 09/27/20 0:49:00 EDT, Dry Weight Start Date: 10/26/20 Status: Ordered Norvasc 2.5 mg oral tablet 2.5 mg, 1, tablet, By Mouth, Daily, Please conctact office for apt. for further refills [phone], #30 tablet, Refills 1, Tot. Refills 1, Maintenance, 08/03/20 11:28:00 EDT, Route to Pharmacy Electronically, [facility], y convert t... Start Date: [...] conctact office for apt. for further refills [phone], # 60 tablet, 1 Refills, Maintenance, 08/03/20 11:29:00 EDT, Tablet, [facility], may convert to 90 days [...]
--- OUTSIDE RECORDS SUMMARY | 2023-03-19 20:03 | XMS_ITS | Continuity of Care Document ---
Author Name Unknown Organization [facility] ter Address [address] [place] [address]- Care Team Providers Care Mower Sharpener Name Role Phone Heber FRANKLIN, Kathy Primary Care Physician [phone] Encounter [facility] [place] Date(s): 02/21/22 - 02/21/[address] [address]- Encounter Diagnosis Viral syndrome(Final) - 02/21/22 Discharge Disposition: A-D/C Home Attending Physician: Kayla Lai MD Admitting Physician: Kayla Lai MD Referring Physician: Not on Staff, Referring [...] Maintenance, 10/05/19 15:29:00 EDT, Tablet, [facility]/pharmacy #[id number], 144.78, cm, 10/05/19 14:50:00 EDT, Height, 89.5, kg, 10/01/19 20:04:00 EDT,Dry Weight Start Date: 10/05/19 Stop Date: 11/04/19 Status: Ordered fluticasone 50 mcg/inh nasal spray 1 sprays, Nares, Both, 2 times a day, # 16 Gm, 0 Refills, Maintenance, 12/01/20 4:52:00 EDT, [place],Partial fill upon patient request if the prescription is for a schedule II opioid drug. Start Date: 12/01/20 Status: Ordered insulin glargine 100 units/mL subcutaneous solution = 8 units, Subcutaneous Injection, Daily in AM, # 3.6 mL, 0 Refills, Maintenance, 09/26/21 13:07:00EDT, Injection, Partial fill upon patient request if the prescription is for a schedule II opioid drug., 149, cm, 09/26/21 11:32:00 EDT, Height, 68.5,... Start Date: 09/26/21 Status: Ordered insulin lispro 100 units/mL injectable [...] 5 Refills, Maintenance, 06/14/21 8:50:00 EST, Capsule, [facility]/pharmacy #[id number], Partial fill upon patient request if [...] conctact office for apt. for further refills [phone], #30 tablet, Refills 1, Tot. Refills 1, Maintenance, 08/03/20 11:28:00 EDT, Route to Pharmacy Electronically, [facility], y convert t... Start Date: [...] conctact office for apt. for further refills [phone], # 60 tablet, 1 Refills, Maintenance, 08/03/20 11:29:00 EDT, Tablet, [facility], may convert [...] HTN (hypertension) Confirmed Active Insomnia Confirmed Active Severe obesity Confirmed Active Brain TIA Confirmed Active DM2 (diabetes mellitus, type 2) Confirmed Active 1hands Results Radiology Reports * Exam Date Time Procedure Performing Provider Status 02/21/22 6:50 PM Chest 2 Views Frontal and Lat Berna Elder; Auth (Verified) Notes: (Chest 2 Views Frontal and Lat) Reason For Exam: Chest Pain;Other: RESULT: Chest 2 Views Frontal and Lat Chest 2 Views Frontal and Lat Hx of Present Illness: Pt reports dry cough COMPARISON: 12/02/2021. FINDINGS: LUNGS AND PLEURA: Volumes remain diminished with bronchovascular crowding. No pleural effusion. No pneumothorax. HEART, MEDIASTINUM AND ANIKET: Heart is normal in size. Normal mediastinal and hilar contour. BONES AND SOFT TISSUES: No acute abnormality. IMPRESSION: Low volumes. No acute abnormality. WSN: [id number] Ordering Physician: Kayla Lai Dictated By: Rolando Milton MD Dictated Date/Time: 02/21/22 7:07 pm Reviewed By: Rolando Milton MD Signed By: Rolando Milton MD Signed Date/Time: 02/21/22 7:07 pm Transcribed By: KEYSHA Transcribed Date/Time: 02/21/22 7:07 pm Vital Signs Most recent to oldest [Reference Range]: 1 2 Oxygen Saturation [94-100 %] 100 % (02/21/22 5:04 PM) Pulse Rate [55-90 bpm] 60 bpm (02/21/22 6:40 PM) 55 bpm (02/21/22 5:04 PM) Blood Pressure [90-138/55-84 mm Hg] 121/ 56mm Hg (02/21/22 6:40 PM) 106/47mm Hg (02/21/22 5:04 PM) Respiratory Rate [16-30 br/min] 18 br/mi n (02/21/22 6:40 PM) 20 br/min (02/21/22 5:04 PM) Temperature [96.8-100.4 DegF] 98.5 DegF (02/21/22 6:40 PM) 98.2 DegF (02/21/22 5:04 PM) Mode of Delivery (Oxygen) Room air (02/21/22 5:04 PM) Blood pressure sites Arm, left (02/21/22 6:40 PM) Arm, left (02/21/22 5:04 PM) Temperature Route Oral (02/21/22 6:40 PM) Oral (02/21/22 5:04 PM) Social History Social History Type Response Smoking Status Never (less than 100 in lifetime) entered on: 06/27/21 Sex Note * [facility] , CIS S: TRANSCRIBE Rolando Milton MD: VERIFY Event Display: Result: Authored Date: [id number] Chest 2 Views Frontal and Lat Hx of Present Illness: Pt reports dry cough COMPARISON: 12/02/2021. FINDINGS: LUNGS AND PLEURA: Volumes remain diminished with bronchovascular crowding. No pleural effusion. No pneumothorax. HEART, MEDIASTINUM AND ANIKET: Heart is normal in size. Normal mediastinal and hilar contour. BONES AND SOFT TISSUES: No acute abnormality. IMPRESSION: Low volumes. No acute abnormality. WSN: [id number] Ordering Physician: Kayla Lai Dictated By: Rolando Milton MD Dictated Date/Time: 02/21/22 7:07 pm Reviewed By: Rolando Milton MD Signed By: Rolando Milton MD Signed Date/Time: 02/21/22 7:07 pm Transcribed By: KEYSHA Transcribed Date/Time: 02/21/22 7:07 pm Patient Care team information Personnel Name: Kathy Buck MD Address: Address: [address] [place] [address]
--- OUTSIDE RECORDS SUMMARY | 2023-03-19 20:03 | XMS_ITS | Continuity of Care Document ---
Author Name Unknown Organization [facility] ter Address [address] [place] [address]- Care Team Providers Care Parquet Floor Layer'S Helper Name Role Phone Luis Fernando Nobles MD Primary Care Physician [place] [facility] Date(s): 10/11/19 - 01/20/[address] [address]- [facility] Attending Physician: Luis Fernando Nobles MD Admitting [...] 07/28/19 10:09:00 EDT, Route to Pharmacy Electronically, [facility], may convert to 90daysat patient request, 127, cm, 07/22/19 11:16:00 EDT,... Start Date: 07/28/19 Status: Ordered ferrous fumarate 300 mg oral tablet 1 tablet = 300 mg, By Mouth, Daily, # 30 tablet, 0 Refills, Maintenance, 10/05/19 15:29:00 EDT, Tablet, [facility]/pharmacy #[id number], 144.78, cm, 10/05/19 14:50:00 EDT, [...] 0 Refills, Maintenance, 10/05/19 15:24:00 EDT, Nasal [place], [facility]/pharmacy #[id number], 1 sprays Nares, Both 2 times a day, 144.78, cm, 10/05/19 14:50:00 EDT, Height, 89.5, kg, 10/01/19 20:04:00 EDT, Dry... Start Date: 10/05/19 Status: Ordered insulin glargine 100 u/ml subcutaneous solution = 20 units, Subcutaneous Injection, Daily at bedtime, # 10 mL, 0 Refills, Maintenance, 10/05/19 15:24:00 EDT, Injection, [facility]/pharmacy #[id number], 144.78, cm, 10/05/19 14:50:00 EDT, [...] 10/05/19 15:25:00 EDT, Route to Pharmacy Electronically, [facility]/pharmacy #[id number], 144.78, cm, 10/05/19 14:50:00 EDT, Height, 89.5, kg, 10/01/19 20:04:00 EDT,... Start Date: 10/05/19 Stop Date: 10/26/19 Status: Ordered metoprolol 25 mg oral tablet 12.5 mg, 0.5, tablet, By Mouth, Daily, # 15 tablet, Refills 11, Tot. Refills 11, Maintenance, 07/28/19 10:09:00 EDT, Route to Pharmacy Electronically, [facility], may convert to 90 days at patient request, 127, cm, 07/22/19 11:16:0... Start Date: 07/28/19 Stop Date: 07/22/20 Status: Ordered Norvasc 2.5 mg oral tablet 2.5 mg, 1, tablet, By Mouth, Daily, # 30 tablet, Refills 11, Tot. Refills 11, Maintenance, 07/27/2009:09:00 EDT, Route to Pharmacy Electronically, [facility], y convert to 90 days at patient request, 127, cm, 07/22/19 11:16:00 EDT... Start Date: 07/28/19 Status: Ordered Reglan 5 mg oral tablet 1 tablet = 5 mg, By Mouth, 4 times a day, PRN Nausea & Vomiting, # 120 tablet, 3 Refills, Acute07/27/20 10:11:00 EDT, 07/28/19 10:09:00 EDT, Tablet, [facility], 127, cm, 07/22/19 11:16:00 EDT, [...] 11 Refills, Maintenance, 07/28/19 10:09:00 EDT, Tablet, [facility], may convert to 90 days [...]
--- OUTSIDE RECORDS SUMMARY | 2023-03-19 20:04 | XMS_ITS | Continuity of Care Document ---
Author Name Unknown Organization [facility] Address [address] [place] [address]- Care Team Providers Care Rotary Operator Name Role Phone Giuliano FRANKLIN, Luis Fernando Haines Primary Care Physician En[place] [facility] Date(s): 01/18/20 - 02/17/20 [facility] [address] [place] [address] [facility] Attending Physician: Mihaela Hawk Admitting Physician: AdmMihaela cuellar Referring Physician: Admtr, Ar8 Allergies, Adverse Reactions, Alerts Substance Reaction Severity [...] 07/28/19 10:09:00 EDT, Route to Pharmacy Electronically, [facility], may convert to 90daysat patient request, [...] 0 Refills, Maintenance, 10/05/19 15:24:00 EDT, Nasal [place], [facility]/pharmacy #[id number], 1 sprays Nares, Both 2 times a day, 144.78, cm, 10/05/19 14:50:00 EDT, Height, 89.5, kg, 10/01/19 20:04:00 EDT, Dry... Start Date: 10/05/19 Status: Ordered insulin glargine 100 u/ml subcutaneous solution = 20 units, Subcutaneous Injection, Daily at bedtime, # 10 mL, 0 Refills, Maintenance, 10/05/19 15:24:00 EDT, Injection, [facility]/pharmacy #[id number], 144.78, cm, 10/05/19 14:50:00 [...] 10/05/19 15:25:00 EDT, Route to Pharmacy Electronically, [facility]/pharmacy #[id number], 144.78, cm, 10/05/19 14:50:00 EDT, Height, 89.5, kg, 10/01/19 20:04:00 EDT,... Start Date: 10/05/19 Stop Date: 10/26/19 Status: Ordered metoprolol 25 mg oral tablet 12.5 mg, 0.5, tablet, By Mouth, Daily, # 15 tablet, Refills 11, Tot. Refills 11, Maintenance, 07/28/19 10:09:00 EDT, Route to Pharmacy Electronically, [facility], may convert to 90 days at patient request, 127, cm, 07/22/19 11:16:0... Start Date: 07/28/19 Stop Date: 07/22/20 Status: Ordered Norvasc 2.5 mg oral tablet 2.5 mg, 1, tablet, By Mouth, Daily, # 30 tablet, Refills 11, Tot. Refills 11, Maintenance, 07/27/2009:09:00 EDT, Route to Pharmacy Electronically, [facility], y convert to 90 days at patient request, 127, cm, 07/22/19 11:16:00 EDT... Start Date: 07/28/19 Status: Ordered Reglan 5 mg oral tablet 1 tablet = 5 mg, By Mouth, 4 times a day, PRN Nausea & Vomiting, # 120 tablet, 3 Refills, Acute07/27/20 10:11:00 EDT, 07/28/19 10:09:00 EDT, Tablet, [facility], 127, cm, 07/22/19 11:16:00 EDT, Height, [...] 11 Refills, Maintenance, 07/28/19 10:09:00 EDT, Tablet, [facility], may convert to 90 [...]
--- OUTSIDE RECORDS SUMMARY | 2023-03-19 20:04 | XMS_ITS | Continuity of Care Document ---
Author Name Unknown Organization [facility] ter Address [address] [place] [id number]- Care Team Providers Care Deputy Chief Magistrate Name Role Phone Kathy Buck MD Primary Care Physician Encounter [facility] [place] Date(s): 06/03/22 - 06/05/[address] [address]- Encounter Diagnosis UTI (urinary tract infection)(Final) - 06/02/22 Weakness(Final) - 06/02/22 Discharge Disposition: Discharged to Hospice-Home (routine care Attending Physician: Han Medeiros MD Admitting Physician: Ree Gottlieb MD Referring Physician: Not on Staff, Referring MD Allergies, Adverse Reactions, Alerts No Known Allergies Immunizations Given and Recorded Vaccine Date Status Refusal Reason SARS-CoV-2 mRNA (endxwat-cpei-[id number]) vax 07/09/21 Recorded SARS-CoV-2 (COVID-19) Ad26 vaccine [...] 0 Refills, Maintenance, 10/05/19 15:29:00 EDT, Tablet, [facility]/pharmacy #[id number], 144.78, cm, 10/05/19 14:50:00 EDT, Height, 89.5, kg, 10/01/19 20:04:00 EDT,Dry Weight Start Date: 10/05/19 Stop Date: 11/04/19 Status: Ordered fluticasone 50 mcg/inh nasal spray 1 sprays, Nares, Both, 2 times a day, # 16 Gm, 0 Refills, Maintenance, 12/01/20 4:52:00 EDT, [place],Partial fill upon patient request if the prescription is for a schedule II opioid drug. Start Date: 12/01/20 Status: Ordered insulin glargine 100 units/mL subcutaneous solution = 15 units, Subcutaneous Injection, Daily in AM, # 3.6 mL, 0 Refills, Maintenance, 03/08/22 13:57:00 EDT, Injection, [facility], Partial fill upon patient [...] 5 Refills, Maintenance, 06/14/21 8:50:00 EST, Capsule, [facility]/pharmacy #[id number], Partial fill upon patient request if the prescription is for a schedule II opioid drug., 152, cm, 06/07/21 7:45:00 EST, [place]... Start Date: 06/14/21 Status: Ordered MiraLax oral powder for reconstitution = 17 Gm, By Mouth, 2 times a day before breakfast and dinne, dissolve in water before taking, # 527Gm, 11 Refills, Maintenance, 05/28/21 13:46:00 EST, REC Powder, [facility]/pharmacy #[id number], Partial fill upon patient request if the prescription is for a sche... Start Date: 05/28/21 Status: Ordered Norvasc 2.5 mg oral tablet 2.5 mg, 1, tablet, By Mouth, Daily, Please conctact office for apt. for further refills [phone], #30 tablet, Refills 1, Tot. Refills 1, Maintenance, 08/03/20 11:28:00 EDT, Route to Pharmacy Electronically, [facility], y convert t... Start Date: 08/03/20 Status: Ordered Norvasc 5 mg oral tablet 2.5 mg, Tablet, By Mouth, 06/05/22 9:00:00 EST Start Date: 06/05/22 Stop Date: 06/05/22 Status: Completed ondansetron 4 mg oral tablet, [...] 10/20/22 9:58:00 EDT, Route to Pharmacy Electronically, [facility]/pharmacy #[id number], Partial fill upon patient request if the [...] mellitus, type 2) Confirmed Active 1hands Results Orders for Microbiology Reports Name Date Blood Culture 06/01/22 Blood Culture #2 06/01/22 Urine Culture (URINE CULTURE) 06/01/22 Microbiology Reports TEST:Blood Culture, Second Order STATUS:Unauthenticated BODY SITE: SOURCE:Blood COLLECTED DATE/TIME:06/02/22 1:40 AM Blood Culture, Second Order SPECIMEN DESCRIPTION : BLOOD L SPECIAL REQUESTS : NONE CULTURE : NO GROWTH 3 DAYS REPORT STATUS : PRELIMINARY REPORT TEST:Blood Culture STATUS:Unauthenticated BODY SITE: SOURCE:Blood COLLECTED DATE/TIME:06/02/22 1:31 AM Blood Culture SPECIMEN DESCRIPTION : BLOOD RIGHT SPECIAL REQUESTS : NONE CULTURE : NO GROWTH 3 DAYS REPORT STATUS : PRELIMINARY REPORT TEST:Urine Culture STATUS:Auth (Verified) BODY SITE: SOURCE:URINE COLLECTED DATE/TIME:06/01/22 6:14 PM Urine Culture SPECIMEN DESCRIPTION : URINE SPECIAL REQUESTS : NONE CULTURE : >100,000 COL/ML ESCHERICHIA COLI This isolate was identified using Maldi-TOF system These AST results were performed on the Genican ID and AST system REPORT STATUS : FINAL 06/04/2022 ORGANISM >100,000 COL/ML ESCHERICHIA COLI This isolate was identified using Maldi-TOF system These AST results were performed on the Genican ID and AST system METHOD MIN. INHIB. CONC. (MCG/ML) AMPICILLIN RESISTANT AMPICILLIN/SULBACTAM RESISTANT AMOXICILLIN/CLAVULAN SUSCEPTIBLE CEFAZOLIN SUSCEPTIBLE CEFEPIME SUSCEPTIBLE CEFTRIAXONE SUSCEPTIBLE CIPROFLOXACIN RESISTANT ERTAPENEM SUSCEPTIBLE GENTAMICIN SUSCEPTIBLE LEVOFLOXACIN RESISTANT MEROPENEM SUSCEPTIBLE NITROFURANTOIN SUSCEPTIBLE PIPERACILLIN/TAZOBAC SUSCEPTIBLE TRIMETH/SULFAMETHOX SUSCEPTIBLE TETRACYCLINE SUSCEPTIBLE Radiology Reports * Exam Date Time Procedure Performing Provider Status 06/04/22 9:[address] Chest W/ Contrast Colon , Kellie; Som [facility] (Verified) Notes: (CT Chest W/ Contrast) Reason For Exam: Undiagnosed Mass/Nodule RESULT: CT Chest W/ Contrast CT Chest W/ Contrast INDICATION: Reason: Undiagnosed Mass Nodule; Clinical Question(s): Carcinoma; Order Comment: TECHNIQUE: Helical CT scan of the chest with IV contrast, formatted in 3 planes. 100 cc of Omnipaque 300 was administered intravenously. Weight-based protocol was performed using automatic exposure control. CTDIvol Body: 9.23 mGy, DLP Body: 305 mGy*cm. COMPARISON: 03/04/2022 CT chest without contrast. 06/01/2022 CT abdomen pelvis. FINDINGS: Resource Teacher view findings, lines and tubes: None. Trachea and airways: Patent without evidence of tracheal or endobronchial lesion. Lungs and pleura: Low lung volumes with lung base crowding. Unchanged focus of tree-in-bud nodularity in the peripheral posterior RIGHT upper lobe, largest component measuring 0.7 cm. Small foci of tree-in-bud opacities in the lateral and medial RIGHT middle lobe are stable. Additional scattered 1-3 mm nodules are stable. No effusion or pneumothorax. No new airspace consolidation. No new or enlarging pulmonary nodules. Mediastinum and zeferino: No mass or hematoma. No mediastinal or hilar lymphadenopathy. No esophageal abnormality. Heart: Heart is normal in size. No pericardial effusion. Severe coronary artery calcification. Mitral and aortic annular calcifications noted. Aorta: No aortic aneurysm. Mild to moderate degree of atherosclerotic calcification of the thoracicaorta. Pulmonary arteries: Normal caliber. No evidence of pulmonary embolism on this study performed without angiographic technique. Chest wall soft tissues: No acute abnormality. Diaphragm: Normal. Upper abdomen: Multifocal renal cortical scarring, atrophic RIGHT kidney, several nonobstructing renal calculi and renal hilar vascular calcifications. Simple appearing cysts within the RIGHT kidney.Cirrhotic appearance of the liver which is macronodular. Cholecystectomy clips in the gallbladder fossa. Bones: No acute abnormality. No suspicious bone lesion. Severe T12 compression fracture deformity, stable compared with 03/04/2022. Several mild chronic LEFT lateral rib deformities. IMPRESSION: No interval change compared with 03/04/2022. Tree-in-bud nodularity in the posterior RIGHT upper lobe is stable, largest component measuring 7 mm. Tiny regions of tree-in-bud opacities in the medial and lateral RIGHT middle lobe are stable. Stable additional scattered 1-3 mm pulmonary nodules. No new or enlarging pulmonary nodules. Stable upper abdominal findings: Cirrhotic liver, multifocal renal cortical scarring, RIGHT renal atrophy. WSN: [id number] Ordering Physician: Marily Mello Dictated By: Michelle Lobato MD Dictated Date/Time: 06/05/22 11:05 a Reviewed By: Michelle Lobato MD Signed By: Michelle Lobato MD Signed Date/Time: 06/05/22 11:05 am Transcribed By: KEYSHA Transcribed Date/Time: 06/05/22 10:42 am * Exam Date Time Procedure Performing Provider Status 06/02/22 4:26 PM Foot Min 3 Views Right Ziggy Rose; Auth (Verified) Notes: (Foot Min 3 Views Right) Reason For Exam: Pain RESULT: Foot Min 3 Views Right Foot Min 3 Views Right, 3 views REASON: Pain; Clinical Question(s): Fracture COMPARISON: Ankle from 10/20/2020 FINDINGS: Bones are demineralized. No acute fracture or dislocation. Old healed fifth metatarsal neck fracture. Mild degenerative change at the fourth MTP joint. Large plantar calcaneus spur. There are atherosclerotic vascular calcifications. IMPRESSION: No evidence of acute osseous abnormality. WSN: [id number] Ordering Physician: Sandeep Carson Dictated By: Robert Pierson MD Dictated Date/Time: 06/02/22 5:12 pm Reviewed By: Robert Pierson MD Signed By: Robert Pierson MD Signed Date/Time: 06/02/22 5:12 pm Transcribed By: KEYSHA Transcribed Date/Time: 06/02/22 5:11 pm * Exam Date Time Procedure Performing Provider Status 06/02/22 12:27 AM Chest 2 Views Frontal and Lat Catherine Kearney; Auth (Verified) Notes: (Chest 2 Views Frontal and Lat) Reason For Exam: Shortness of Breath, Fever;Other: RESULT: Chest 2 Views Frontal and Lat Chest 2 Views Frontal and Lat Hx of Present Illness: pt coming from home c o back pain, dizzyness, and generalized weakness.; Reason: Other:; Shortness of Breath, Fever; Clinical Question(s): Pneumonia COMPARISON: Multiple prior examinations the most recent dated 03/15/2022. FINDINGS: LINES AND TUBES: None. LUNGS AND PLEURA: Low lung volumes persist. There is a small ill-defined density in the right upper lobe measuring about 2.4 cm in diameter appearing since the prior examination which may represent focal infiltrate and/or mass. In addition there is prominence of the right hilum with the possibility of the presence of a right suprahilar mass. The left lung is clear. Correlation with a chest CT with intravenous contrast administration is advised for further evaluation of these findings. No pleural effusion. No pneumothorax. HEART, MEDIASTINUM AND ZEFERINO: Prominent cardiomediastinal silhouette unchanged. Normal mediastinal and hilar contour. BONES AND SOFT TISSUES: No acute abnormality. Mild supine osteoporosis thoracic spine. IMPRESSION: Poorly defined density in the right upper lobe potentially appearing since the prior examination. ? Prominent right hilum with the possibility of a right suprahilar mass. Correlation with a CT scanof the chest with intravenous contrast administration is advised for further evaluation of these findings. Hypoinflated lungs bilaterally unchanged. Prominent cardiomediastinal silhouette with unchanged. WSN: [id number] Ordering Physician: Mecca Bella Dictated By: Sam Casas MD, V Dictated Date/Time: 06/02/22 8:02 am Reviewed By: Sam Casas MD, V Signed By: Sam Casas MD, V Signed Date/Time: 06/02/22 8:02 am Transcribed By: KEYSHA Transcribed Date/Time: 06/02/22 7:57 am * Exam Date Time Procedure Performing Provider Status 06/01/22 10:[address] Abd/Pelvis W/ IV Contrast Only Andrew Ayala (Verified) Notes: (CT Abd/Pelvis W/ IV Contrast Only) Reason For Exam: diffuse abdominal pain, nausea, dysuria, fatigue;Other: RESULT: CT Abd/Pelvis W/ IV Contrast Only CT Abd/Pelvis W/ IV Contrast Only REASON: diffuse abdominal pain, nausea, dysuria, fatigue Hx of Present Illness: pt coming from home c o back pain, dizziness, and generalized weakness.; TECHNIQUE: Spiral CT through the abdomen and pelvis with IV contrast formatted in 3 planes. 100 cc of Omnipaque 300 was administered intravenously. This study was performed without oral contrast. Weight-based protocol using automatic tube modulation was used to optimize exposure parameters. CTDIvol Body: 17.02 mGy, DLP Body: 876 mGy*cm. COMPARISON: CT pelvis 12/03/2021. CT abdomen and pelvis 06/03/2021. FINDINGS: Resource Teacher View Findings, Lines and Tubes: None. Visualized Chest: Minimal interstitial thickening in the lung bases. No pleural effusion. The heartis normal in size. No pericardial effusion. Diaphragm: Normal. Liver: Cirrhotic morphology. No suspicious lesions. Gallbladder: Absent consistent with prior cholecystectomy. Bile ducts: Mild central hepatic ductal dilatation, likely related to post cholecystectomy state. Spleen: Normal. Pancreas: Normal. Adrenal glands: Normal. Kidneys and ureters: Multifocal cortical scarring and atrophy of the right kidney and bilateral lobations. Nonobstructing stones measuring up to 3 mm in the right kidney. No hydronephrosis, or suspicious masses. Simple appearing renal cysts are noted, requiring no dedicated follow up. Bladder: Normal. Reproductive organs: Unremarkable. Stomach, small bowel, and large bowel: Small type I hiatal hernia. Small bowel loops are nondilated, no evidence of obstruction. Mild clonic diverticulosis. Tiny portion of cecum protrudes through a small right abdominal wall ventral hernia along the right aspect of a prior hernia mesh repair. Appendix: Not seen, but no evidence of appendicitis. Peritoneum and retroperitoneum: No ascites or pneumoperitoneum. No omental or mesenteric lesions. Lymph nodes: No enlarged lymph nodes. Blood vessels: Severe atherosclerotic vascular calcification but no aneurysm. No evidence of venousthrombosis. Abdominal and pelvic wall: Tiny right anterior abdominal ventral hernia contains a tiny portion of cecum. Bones: Severe compression deformity of T12 and L4 are unchanged. IMPRESSION: No acute inflammatory process in the abdomen and pelvis. No evidence of bowel obstruction. Tiny ventral hernia in the right lower quadrant contains a tiny portion of cecum although appears nonobstructed. Cirrhotic liver is unchanged. Few nonobstructing right-sided renal stones. Extensive right renal scarring and atrophy. I have personally reviewed the images and I agree with this report. WSN: [id number] Ordering Physician: Mecca Bella Dictated By: Farhat Dennis DO Dictated Date/Time: 06/01/22 11:29 p Reviewed By: Jasvir De Luna MD Signed By: Jasvir De Luna MD Signed Date/Time: 06/01/22 11:34 pm Transcribed By: KEYSHA Transcribed Date/Time: 06/01/22 11:21 pm * Exam Date Time Procedure Performing Provider Status 06/01/22 9:[address] Head/Brain W/O Contrast Kanchan Martinez; Auth (Verified) Notes: (CT Head/Brain W/O Contrast) Reason For Exam: dizziness, fatigue;Other: RESULT: CT Head/Brain W/O Contrast CT Head/Brain W/O Contrast Hx of Present Illness: pt coming from home c o back pain, dizziness, and generalized weakness.; Reason: Other:; dizziness, fatigue; Clinical Question(s): Hematoma. TECHNIQUE: Noncontrast head CT using axial technique and reconstructed in axial and coronal planes.Weight-based protocol using automatic tube modulation was used to optimize exposure parameters. CTDIvol Head: 47.60 mGy, DLP Head: 773 mGy*cm. COMPARISON: CT 03/04/2022, MRI 03/05/2022 FINDINGS: BRAIN and EXTRA-AXIAL SPACES: No parenchymal hemorrhage, midline shift or mass effect. 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 Matthew-white matter differentiation is otherwise well preserved. No acute infarct. Negative insular ribbon sign. Atherosclerotic vascularcalcification of the carotid and vertebral arteries but negative hyperdense vessel sign. Moderate prominence of the ventricles and sulci consistent with parenchymal volume loss. 2202 Mild low-density white matter changes. No subarachnoid hemorrhage, subdural or epidural collections. CALVARIUM, SKULL BASE AND SOFT TISSUES: No fractures or suspicious bony lesions. The paranasal sinuses and mastoid air cells are clear. Visualized orbits and globes are intact. The extracranial soft tissues are unremarkable. IMPRESSION: No acute intracranial abnormality. I have personally reviewed the images and I agree with this report. WSN: [id number] Ordering Physician: Mecca Bella Dictated By: Torsten Guzman MD Dictated Date/Time: 06/01/22 9:52 pm Reviewed By: Jasvir De Luna MD Signed By: Jasvir De Luna MD Signed Date/Time: 06/01/22 9:57 pm Transcribed By: KEYSHA Transcribed Date/Time: 06/01/22 9:36 pm Vital Signs Most recent to oldest [Reference Range]: 1 2 3 Weight 75.4 kg (06/05/22 5:18 AM) Oxygen Saturation [94-100 %] 98 % (06/05/22 8:14 AM) 100 % (06/05/22 3:31 AM) 100 % (06/04/22 8:26 PM) Pulse Rate [55-90 bpm] 68 bpm (06/05/22 8:14 AM) 78 bpm (06/05/22 3:31 AM) 73 bpm (06/04/22 8:26 PM) Blood Pressure [90-138/55-84 mm Hg] 140/70mm Hg *H* (06/05/22 9:05 AM) 140/74mm Hg *H* (06/05/22 8:14 AM) 139/69mm Hg *H* (06/05/22 3:31 AM) Respiratory Rate [16-30 br/min] 18 br/min (06/05/22 8:14 AM) 18 br/min (06/05/22 3:31 AM) 18 br/min (06/04/22 8:26 PM) Temperature [96.8-100.4 DegF] 97.8 DegF (06/05/22 8:14 AM) 97.0 DegF (06/05/22 3:31 AM) 97.8 DegF (06/04/22 2:00 PM) Mode of Delivery (Oxygen) Room air (06/05/22 8:14 AM) Room air (06/05/22 3:31 AM) Room air (06/04/22 8:26 PM) Blood pressure sites Arm, right (06/05/22 8:14 AM) Arm, right (06/05/22 3:31 AM) Arm, left (06/04/22 8:26 PM) Temperature Route Temporal (06/05/22 8:14 AM) Temporal (06/05/22 3:31 AM) Oral (06/04/22 2:00 PM) Weight Obtained Via Bed scale (06/05/22 5:18 AM) Social History Social History Type Response Smoking Status Never (less than 100 in lifetime) entered on: 06/27/21 Sex Female Admission evaluation note * Sagrario Yadav MD: MODIFY Carmine DO, Scottie: MODIFY, MODIFY Carmine DO, Scottie: MODIFY, MODIFY Carmine DO, Scottie: MODIFY, PERFORM Carmine DO, Scottie: PERFORM Event Display: Admission Note Authored Date: [id number] Patient: ??HANNAH GILBERT ? Age:??71 Years?Sex:??Female?:??1950?? Chief Complaint/Reason for Consultation pt coming from home c/o back pain, dizzyness, and generalized weakness. History of Present Illness Hannah is a 71-year-old female past medical history of CAD s/p RADHA 2020, autoimmune hepatitis, CKD, type 2 diabetes mellitus insulin-dependent, hypertension, hyperlipidemia, gastritis who presents to emergency department on 06/01/2022 with fatigue, lightheadedness, nausea, abdominal pain, dysuria ?? HPI obtained via chart review, talking to patient, and calling daughter/ACTIVITY SPECIALIST Antione Allengo ([phone]). Patient is alert and oriented X1 to person. She states that she is in a hospital, does not know the date, the year, or the president.??Per daughter, she normally??knows these things.??Apparently, the patient has been feeling fatigued with some weakness in her legs for the past 3 to 4 days. ??She is also endorsing burning with urination and increased urination. ??She has a history of UTIs in the past. ??She denies any loss of bowel or bladder or any saddle numbness or tingling. ??She has been having decreased p.o. intake as well over the past couple of days. ??She lives alone. ??She states that she takes all medications every day but is on sure about which medications that she takes. ??She denies any chest pain or shortness of breath. ?? While in the Emergency Department, temperature 97.8, heart rate 92, blood pressure 130/56, saturating 90% on room air. ??Initial labs showed WBC 7.9, hemoglobin 9.6, platelets 105, sodium 133, potassium 5.3, chloride 101, bicarbonate 20, anion gap 12, glucose 420, BUN 56, creatinine 1.5 (baseline creatinine 1.06 March 2022), alkaline phosphatase 294, AST 48, ALT 22, lipase 31, alkaline phosphatase 294. ??Lactate 0.8. ??High-sensitivity troponin 14x2. ??TSH within normal limits. ??InfluenzaA/B/COVID-negative. ??UA showed albumin 1+, glucose 4+, leukocyte 3+, WBCs 35, RBC 2. ??POC [id number]. ?? Imaging: Chest x-ray showed poorly defined density in the right upper lobe potentially appearing since the prior examination. ??Question of prominent right hilum with a possibility of a right suprahilar mass.??Correlation with CT scan of the chest with IV contrast administration is advised to further evaluation these findings. ??Hypoinflated lungs bilaterally unchanged. ??Prominent cardiomediastinal silho uette unchanged CT of head showed no acute intracranial pathology CT abdomen pelvis with IV contrast showed no acute inflammatory process in the abdomen/pelvis. ??Noevidence of bowel obstruction. ??Tiny ventral hernia in the right lower quadrant contains a tiny portion of cecum although appears nonobstructed. ??Cirrhotic liver is unchanged. ??Few nonobstructing right sided renal stones. ??Extensive right renal scarring and atrophy. ?? EKG normal sinus rhythm rate of 87, no ischemic changes, moderate voltage criteria for LVH may be normal variant. ?? Medications: Patient received Tylenol, ceftriaxone 1 g, ferrous sulfate, pantoprazole, Seroquel, ursodiol, 1.5 Lof fluid total ?? Upon my evaluation of the patient in the ED, she is overall feeling about the same as when she first came in. ??She still describes some pain in her legs mostly on her right anterior leg. ??She denies any recent falls or trauma. ??She states that this is been going on for about 7 months. ??She states that she does not feel like eating much anymore. ??When I asked her if she is still taking her ticagrelor/Brilinta she states that she is not sure. ??I called daughter and the daughter is not sure either. ??Per documentation, the patient was discharged on this medication on her discharge summary from March 2022. ??However, the patient had not received ticagrelor/Brilinta while she was hospitalized per MAR summary during her March hospitalization. ??Her CAD status post RADHA was in 2019so it is unclear if she is still taking this medication and per external med rec she has not pickedit up since 02/2022 and she only picked up 1 month of it. ??She is still complaining currently of some mild suprapubic tenderness. ?? Review of Systems Review of systems is negative except for what is described in history of present illness Objective Vital Signs?? Temperature: 99 DegF (06/02/22 12:02:00) Temperature Route: Oral (06/01/22 22:24:00) Pulse Rate:??91 bpm??High (06/02/22 12:02:00) Respiratory Rate: 16 br/min (06/02/22 12:02:00) Systolic Blood Pressure:??145 mm Hg??High (06/02/22 12:02:00) Diastolic Blood Pressure:??95 mm Hg??High (06/02/22 12:02:00) Blood pressure sites: Arm, right (06/02/22 12:02:00) Mean Arterial Pressure: 91 mm Hg (06/02/22 03:01:00) Pulse Pressure: 90 mm Hg (06/02/22 07:56:00) Oxygen Saturation: 99 % (06/02/22 12:02:00) Mode of Delivery (Oxygen): Room air (06/02/22 12:02:00) Early Warning Score: 7 (06/02/22 12:06:25) ?? Intake/Output? 06/01 16:11 06/02 07:00 06/01 07:00 05/31 07:00 05/30 07:00 ?? 06/02 13:17 06/02 13:17 06/02 06:59 06/01 06:59 05/31 06:59 Intake ? 10 ?0 ? 10 ?0 ?0 Output ?0 ?0 ?0 ?0 ?0 Net Total ? 10 ?0 ? 10 ?0 ?0 ?? Physical Exam General:??Alert, in no acute cardiopulmonary distress. Mental Status:??Oriented to person, X1 Head:??Normocephalic. Eyes:??Pupils are equal, round and reactive to light. Extraocular muscles intact. Ear, Nose and Throat:??Oropharynx clear, mucous membranes moist. Nose without masses, lesions or deformities. Trachea midline. Neck:??Supple, Full range of motion. Respiratory:??Clear to auscultation bilaterally, no wheezes or crackles Cardiovascular:??regular rate and rhythm, normal S1/S2, no murmurs Gastrointestinal:??mild RUQ and LUQ tenderness to palpation and suprapubic tenderness. Abdomen soft,non-distended. Normal bowel sounds. No pulsatile mass. No hepatosplenomegaly. Neurologic:??No focal neurological deficits. Moves all extremities spontaneously. Sensation intact bilaterally. Skin:??No rashes or lesions. No petechiae or purpura. No edema. Musculoskeletal:??No cyanosis or clubbing. No gross deformities. Normal range of motion. Strength 5/5 bilaterally in arms and legs ?? Assessment/Plan Diagnoses UTI (urinary tract infection) ??(N39.0) Weakness ??(R53.1) ?? Assessment: Hannah is a 71-year-old female past medical history of CAD s/p RADHA 2020, autoimmune hepatitis, CKD, type 2 diabetes mellitus insulin-dependent, hypertension, hyperlipidemia, gastritis who presents to emergency department on 06/01/2022 with fatigue, lightheadedness, nausea, abdominal pain, dysuria found to have altered mental status, UTI, hyperkalemia ?? Urinary tract infection Altered mental status Decreased p.o. intake Fatigue Lightheadedness Abdominal pain Patient presents from home with 3 to 4 days of fatigue with some weakness in her legs along with burning with urination and increased urination. ??She also endorsed decreased p.o. intake On admission, UA showed signs of infection with leukocyte 3+, WBCs 35. Patient received ceftriaxone and 1.5 L total of fluid Currently, Patient is alert and oriented X1 to person. She states that she is in a hospital, does not know the date, the year, or the president.??Per daughter, she normally??knows these things.? Imaging: Chest x-ray showed poorly defined density in the right upper lobe potentially appearing since the prior examination. ??Question of prominent right hilum with a possibility of a right suprahilar mass.??Correlation with CT scan of the chest with IV contrast administration is advised to further evaluation these findings. ??Hypoinflated lungs bilaterally unchanged. ??Prominent cardiomediastinal silho uette unchanged CT of head showed no acute intracranial pathology CT abdomen pelvis with IV contrast showed no acute inflammatory process in the abdomen/pelvis. ??Noevidence of bowel obstruction. ??Tiny ventral hernia in the right lower quadrant contains a tiny portion of cecum although appears unobstructed. ??Cirrhotic liver is unchanged. ??Few nonobstructing right sided renal stones. ??Extensive right renal scarring and atrophy. ?? Etiology of clinical symptoms concerning for urinary tract infection causing weakness. ??Patient also appears dehydrated secondary to decreased p.o. intake from altered mental status from UTI. Less likely decompensated cirrhosis ?? Plan: Ceftriaxone 1 g daily Add on urine culture Encourage adequate p.o. intake (patient eating at bedside when I was interviewing her) Consider IV fluid bolus if patient cannot take p.o. ?? Hyperkalemia Chronic kidney disease Admission potassium 5.3, creatinine 1.5 (baseline creatinine 1.3) ?? Etiology most likely secondary to decreased p.o. intake ?? Plan: Repeat labs Encourage adequate p.o. intake Consider IV fluid bolus if patient cannot take p.o. If still elevated potassium on repeat labs, treat with Lokelma ?? Diabetes mellitus Hyperglycemia Patient presented with glucose level 420. ??Patient also had bicarbonate level 20 anion gap 12??. ??Patient states that she is on insulin glargine at home but is unsure how much she is taking. ??She is also confused at the moment. ??Per external med rec patient supposed be taking insulin glargine Toujeo 15 units per insulin protocol last picked up 02/28/2022. ??Unclear how much the patient been taking at home ?? Plan: Insulin glargine 15 units daily POC's 3 times a day and daily at bedtime sliding scale insulin Add on A1c Emergency hypoglycemia measures ?? Coronary artery disease status post stent 2019 Patient states she is on aspirin 81 mg daily. ??Unclear if patient is on ticagrelor/Brilinta 90 mg twice daily. ??Per discharge summary 03/2022, patient was supposed to be taking this. ??However, during the MAR summary during that March 2022 hospitalization, the patient was not taking any ticagre jason/Brilinta. ??Patient and family member unsure if patient is taking this anymore. ?? Plan: Aspirin 81 mg daily Hold ticagrelor/Brilinta 90 mg twice daily Please confirm with daughter if patient is taking this medication. ??Daughter specifically told to bring in medications to help verify if patient is still taking this ?? 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 Abdomen slightly tender to palpation worse in RUQ and??LUQ ?? Plan: Pantoprazole 40 mg daily Continue lactulose Continue rifaximin Continue ursodiol 300 mg 3 times a day Patient is on Linzess at home, patient will need to bring in this medication as pharmacy does not have this If patient continues to have AMS, consider more aggressive bowel regimen, ammonia level, and further workup for decompensated cirrhosis Close outpatient GI follow-up ?? Hypertension On amlodipine 2.5 mg daily at home ?? Plan: Continue amlodipine 2.5 mg daily ?? Incidental CT findings Chest x-ray showed poorly defined density in the right upper lobe potentially appearing since the prior examination. ??Question of prominent right hilum with a possibility of a right suprahilar mass.??Correlation with CT scan of the chest with IV contrast administration is advised to further evaluation these findings. ??Hypoinflated lungs bilaterally unchanged. ??Prominent cardiomediastinal silho uette unchanged ?? Plan: Outpatient follow up ?? Chronic medical conditions: ?insomnia - continue trazodone 50 mg daily at night, continue seroquel 50 mg twice daily Anemia - continue ferrous sulfate 325 mg daily ?? Quality Measures DVT prophylaxis: heparin 5000 units TID Diet: diabetic diet Code Status: full code after discussion with daughter. Previously full code 03/2022 as well at previous admission ?? Gabriel Olivares, DO PGY-3 Internal Medicine Pager #[phone] ?? Patient seen and discussed with attending physician ??Vicenta ?? The patient seen and examined on this date. The case is reviewed with admitting resident on thisdate. I reviewed and agree as above. Dvt, moderate risk. Sagrario Yadav MD Histories Allergies Allergies ?(Active and Proposed Allergies Only) NKA? (Severity: Unknown severity, Onset: Unknown) ?? Past Medical History/Problem List Active Problems??(15) Arthritis Asthma Brain TIA CAD (coronary artery disease) Chronic anemia Cirrhosis CKD (chronic kidney disease) Dementia Depression DM2 (diabetes mellitus, type 2) HTN (hypertension) Hyperkalemia Hyperlipidemia Insomnia Obese class I ?? Past Surgical History Colonoscopy, flexible; with removal of tumor(s), polyp(s), or other lesion(s) by snare technique: 10/05/19 EGD - Esophagogastroduodenoscopy: 10/04/19 Cholecystectomy ?? Social History Alcohol Details:??Use: Never. Details:??Use: Never. 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 Substance Abuse Details:??Use: Never. Details:??Use: Never. Tobacco Details:??Use: Never (less than 100 in lifetime). Details:??Use: Never (less than 100 in lifetime). Electronic Cigarette/Vaping Details:??Electronic Cigarette Use: Never. ?? Family History Mother: Alzheimer disease; CAD - Coronary artery disease; Cancer of breast; Cancer of colon; Diabetes mellitus type II Medications Home Medications Acetaminophen (acetaminophen 500 mg oral tablet)?2?tab(s)?1,000?Milligram?By Mouth?Daily?as needed?for fever Albuterol (Albuterol (Eqv-ProAir HFA) 90 mcg/inh inhalation aerosol)?2?puff(s)?Inhalation?Every 6 hours Amlodipine (Norvasc 2.5 mg oral tablet)?2.5?Milligram?1?tablet?By Mouth?Daily?Please conctact office for apt. for further refills [phone] Aspirin (aspirin 81 mg oral delayed release tablet)?81?Milligram?1?tablet?By Mouth?Daily Cetirizine (cetirizine 5 mg oral tablet)?5?Milligram?By Mouth?Daily Cholecalciferol (Vitamin D3 2000 intl units oral tablet)?1?tab(s)?50?Microgram?By Mouth?Daily Escitalopram (escitalopram 5 mg oral tablet)?1?tab(s)?5?Milligram?By Mouth?Daily Ferrous Fumarate (ferrous fumarate 300 mg oral tablet)?1?tab(s)?300?Milligram?By Mouth?Daily?for 30?Days Fluticasone Nasal (fluticasone 50 mcg/inh nasal spray)?1?spray(s)?Nares, Both?2 times aday Glucose (Dex4 Tropical Blast 45% oral gel)?15?gram?By Mouth?Once?as needed?as needed for low blood sugar Insulin Glargine (insulin glargine 100 units/mL subcutaneous solution)?15?unit(s)?Subcutaneous Injection?Daily in AM Insulin Lispro (insulin lispro 100 units/mL injectable solution)?2-8 units?Subcutaneous Injection?3 times a day before meals?120 - 149 ?? 2 units 150 - 179 ?? 3 units 180 - 209 ?? 4 [id number] - 239 ?? 6 [id number] - 269 ?? 7 units 270 - 299 ?? 8 unitsCall MD if greater than 300 Lactulose (lactulose 10 gm/15 ml oral syrup)?45?Milliliter?30?gram?By Mouth?3 times a day?Titrate up to 2-3 bowel movements per day or until she has a bowel movement. Lidocaine Topical (lidocaine 5% topical film)?Topically?Daily linaclotide (Linzess 145 mcg oral capsule)?1?capsule?145?Microgram?By Mouth?Daily Ondansetron (ondansetron 4 mg oral tablet, disintegrating)?1?tab(s)?4?Milligram?By Mouth?Every 8 hours?as needed?Nausea & Vomiting Pantoprazole (Protonix 40 mg oral delayed release tablet)?1?tab(s)?40?Milligram?By Mouth?Daily Polyethylene Glycol 3350 (MiraLax oral powder for reconstitution)?17?gram?By Mouth?2 times a day before breakfast and dinne?dissolve in water before taking Rifaximin (rifAXIMin 550 mg oral tablet)?1?tab(s)?550?Milligram?By Mouth?2 times a day Ticagrelor (ticagrelor 90 mg oral tablet)?1?tab(s)?90?Milligram?By Mouth?2 times a day?for 30?Days?Please conctact office for apt. for further refills [phone] Trazodone (traZODone 50 mg oral tablet)?50?Milligram?1?tablet?By Mouth?Daily at supper Ursodiol (ursodiol 400 mg oral capsule)?1?capsule?400?Milligram?By Mouth?2 times a day?for 90?Days Ursodiol (ursodiol 300 mg oral capsule)?300?Milligram?1?capsule?By Mouth?3 times a day?for 30?Days Ursodiol (ursodiol 300 mg oral capsule)?300?Milligram?1?capsule?By Mouth?3 times a day?for 30?Days Results Recent Labs BLOOD COUNT & DIFF WBC 7.9 k/mm3 ()?? 06/01/2022 19:12 RBC 3.60 m/mm3 (Low)?? 06/01/2022 19:12 Hgb 9.6 Gm/dL (Low)?? 06/01/2022 19:12 Hct 30.1 % (Low)?? 06/01/2022 19:12 MCV 83.6 femtoliters ()?? 06/01/2022 19:12 MCH 26.7 pg (Low)?? 06/01/2022 19:12 MCHC 31.9 g/dL (Low)?? 06/01/2022 19:12 Platelet Count 105 k/mm3 (Low)?? 06/01/2022 19:12 RDW-SD 53.6 femtoliters (High)?? 06/01/2022 19:12 MPV 11.5 femtoliters ()?? 06/01/2022 19:12 Nucleated RBC (Automated) 0.0 #/100 WBC'S ()?? 06/01/2022 19:12 Abs. NRBC 0.0 k/mm3 ()?? 06/01/2022 19:12 Abs. Neut 4.8 k/mm3 ()?? 06/01/2022 19:12 Abs. Lymph 2.2 k/mm3 ()?? 06/01/2022 19:12 Abs. Perkins 0.6 k/mm3 ()?? 06/01/2022 19:12 Abs. Eo 0.3 k/mm3 ()?? 06/01/2022 19:12 Abs. Baso 0.0 k/mm3 ()?? 06/01/2022 19:12 Neut % 60.2 % ()?? 06/01/2022 19:12 Lymph % 28.0 % ()?? 06/01/2022 19:12 Perkins % 7.7 % ()?? 06/01/2022 19:12 Eos % 3.2 % ()?? 06/01/2022 19:12 Baso % 0.4 % ()?? 06/01/2022 19:12 RBC Morphology MODERATE ()?? 06/01/2022 19:12 Imm Gran 0.5 % ()?? 06/01/2022 19:12 Abs. Imm Gran 0.0 k/mm3 ()?? 06/01/2022 19:12 ?? CARDIAC High Sensitivity Troponin (HSTnT) 14 ng/L (High)?? 06/02/2022 01:31 ?? CHEM GENERAL Sodium 133 mmol/L ()?? 06/01/2022 19:12 Potassium 5.3 mmol/L (High)?? 06/01/2022 19:12 Chloride 101 mmol/L ()?? 06/01/2022 19:12 Bicarbonate Level 20 mmol/L (Low)?? 06/01/2022 19:12 Anion Gap 12 ()?? 06/01/2022 19:12 Glucose Level 420 mg/dL (High)?? 06/01/2022 19:12 Glucose, POC 359 mg/dL (High)?? 06/02/2022 12:04 BUN 56 mg/dL (High)?? 06/01/2022 19:12 Creatinine-Blood 1.5 mg/dL (High)?? 06/01/2022 19:12 Estimated GFR Creatinine 36 ML/MIN/1.73 M2 ()?? 06/01/2022 19:12 Calcium 9.2 mg/dL ()?? 06/01/2022 19:12 Magnesium 2.1 mg/dL ()?? 06/01/2022 19:12 Protein, Total 6.4 Gm/dL ()?? 06/01/2022 19:12 Albumin 3.4 Gm/dL ()?? 06/01/2022 19:12 AG Ratio 1.1 ()?? 06/01/2022 19:12 Alkaline Phosphatase 294 units/L (High)?? 06/01/2022 19:12 Lipase 31 units/L ()?? 06/01/2022 19:12 AST (SGOT) 48 units/L (High)?? 06/01/2022 19:12 ALT (SGPT) 22 units/L ()?? 06/01/2022 19:12 Bilirubin, Total 0.3 mg/dL ()?? 06/01/2022 19:12 Lactate 0.8 mmol/L ()?? 06/01/2022 18:40 ?? COAG INR 1.0 ()?? 06/01/2022 19:12 Protime (PT) 11.0 seconds ()?? 06/01/2022 19:12 ?? ENDOCRINE/TUMOR MARKER TSH 2.70 uIU/mL ()?? 06/01/2022 19:12 ?? UA/URINALYSIS Appear/Color, Urine LIGHT YELLOW ()?? 06/01/2022 18:14 Specific [place], Urine 1.012 ()?? 06/01/2022 18:14 pH, Urine 6.0 ()?? 06/01/2022 18:14 Albumin, Urine 1+ (Abnormal)?? 06/01/2022 18:14 Glucose, Urine 4+ (Abnormal)?? 06/01/2022 18:14 Ketones, Urine NEGATIVE ()?? 06/01/2022 18:14 Bilirubin, Urine NEGATIVE ()?? 06/01/2022 18:14 Hemoglobin, Urine NEGATIVE ()?? 06/01/2022 18:14 Nitrite, Urine NEGATIVE ()?? 06/01/2022 18:14 Leukocyte, Urine 3+ (Abnormal)?? 06/01/2022 18:14 Urobilinogen NORMAL mg/dL ()?? 06/01/2022 18:14 WBC's, Urine 35 /HPF (High)?? 06/01/2022 18:14 RBC's, Urine 2 /HPF ()?? 06/01/2022 18:14 Bacteria HEAVY HPF (Abnormal)?? 06/01/2022 18:14 Squamous Epith 4 /HPF ()?? 06/01/2022 18:14 Hold Urine Culture Testing available 48 hours from time of collection. ()?? 06/01/2022 18:14 ?? VIROLOGY Influenza A PCR NEGATIVE ()?? 06/01/2022 19:03 Influenza B PCR NEGATIVE ()?? 06/01/2022 19:03 RSV PCR NEGATIVE ()?? 06/01/2022 19:03 COVID-19 PCR Specimen Source NASAL ()?? 06/01/2022 19:03 COVID-19 PCR Result NEGATIVE ()?? 06/01/2022 19:03 ? Blood Gases?? No qualifying data available. ?? EKG study * Event Display: EKG Authored Date: * Event Display: ECG 12-Lead Authored Date: Please click on pdf link to open report * Event Display: ECG 12-Lead Authored Date: Ventricular Rate: 87 BPM Atrial Rate: 87 BPM P-R Interval: 140 ms QRS Duration: 80 ms Q-T Interval: 370 ms QTC Calculation(Bazett): 445 ms P [place]: 32 degrees R [place]: -1 degrees T [place]: 26 degrees Normal sinus rhythm Moderate voltage criteria for LVH, may be normal variant Borderline ECG When compared with ECG of 13-MAY-2022 10:40, No significant change was found Confirmed by CHEYENNE FRANKLIN [facility] ([id number]) on 06/04/2022 10:05:27 AM [place]: [facility] * Isatu Robles RN: PERFORM, SIGN, VERIFY Event Display: [facility] Authored Date: Patient: HANNAH GILBERT [facility]: [id number] Age: 71 years Sex: Female : 1950 Associated Diagnoses: None Author: Isatu Robles RN Findings Problem Related to Alteration in Genitourinary : Alteration in Genitourinary Function/new 06/05/2022 9:00 EST Alteration in Status Related to UTI Goals & Outcomes, Genitourinary Pt will achieve normal/improved fluid balance, Pt will maintainadequate GI function appropriate for pt, Pt will maintain adequate function appropriate for pt, Pt will maintain normal fluid balance, Pt will resume normal pattern of elimination, Pt/caregiver will state understanding of self-care skills Interventions, Assess/monitor/maintain Genitourinary status, Assist & encourage pt with meticulous lety care, Encourage PO fluid intake as allowed by diet Goals/Interventions, Genitourinary Yes Genitourinary, Problem Start 06/05/2022 0:54 Reviewed Plan with, Genitourinary Patient Patient Progression, Genitourinary Patient progressing according to plan Genitourinary, Problem Ongoing Yes . Falls Risk Assessment : Falls Data 06/05/2022 9:09 EST Fall Elimination No impairment Fall Agitation/Anxiety/Depression No impairment Fall Related Sign/Symptom/Condition None Fall Cognitive Limitations No impairment Fall Sensory and Physical Function Weak, Requires Staff Assistance with Transfer, Requires the Use of an Assistive Device Plan: Fall Sensory and Physical Function Encourage safe activities to maintain strength & mobility, Perform strengthening exercises with the patient, Ask family to encourage safe activities, Monitor patient's progress with physical activities, Educate patient how to use mobility aids safely, Educate the family how to use mobility aids safely, Place mobility aids near bedside, Ensure patient has & wears eyeglasses/hearing aids, Collaborate with MD to refer to physical therapy, Collaborate with Physical Therapy for balance/gait training, Collaborate with MD to refer to occupational therapy, Review factors that contributed to previous falls Fall High Risk for Injury None of the above Total Falls Risk Score 8 Fall Risk Level High Risk Falls Prevention Plan for High Risk Fall risk decal outside of patient's room, Apply yellow high fall risk wrist band to wrist, Ensure patient has yellow non- skid slippers, Supervise patient in the bathroom & shower, Consider relocating patient closer to nurses' station, Activate bed exit alarmsystem, Evaluate footwear & ensure patient has non-skid slippers, Activate alternate alarm: chair (i.e. TABS, Alimed), Bed in lowest locked position, Provide patient/family falls prevention education, Place personal care items & call tineo within reach, Instruct patient/family to request assistance with ambulatio, Instruct patient/family not to get up without assistance, Supervise the patient when ambulating or making transfers, Check that needs are met to minimize attempts to get up, Hourly rounds, Ensure safe & uncluttered environment, Communicate falls risk to all providers . Nursing Data Cardiac Data. 06/05/2022 9:10 EST Cardiovascular WNL . Gastrointestinal Data. : Gastrointestinal Data. 06/05/2022 9:10 EST Last Bowel Movement 06/05/2022 GI WNL . Genitourinary Data. : Genitourinary Data. 06/05/2022 9:10 EST WNL . Integumentary Data. : Integumentary Data. 06/05/2022 9:10 EST Integumentary WNL 06/05/2022 9:08 EST Sensory Perception No impairment Moisture Occasionally moist Activity Walks occasionally Mobility No limitations Nutrition Adequate Friction and Shear Potential problem Klaus Score 19 Nursing Care Plan initiated/updated Not applicable . Musculoskeletal Data. : Musculoskeletal Data. 06/05/2022 9:10 EST Musculoskeletal Symptoms Weakness Musculoskeletal WNL except . Neurological Data. : Neurological Data. 06/05/2022 9:10 EST Neurological Symptoms Weakness or loss of muscle strength Neuro WNL except . Respiratory/Pulmonary Data. : Respiratory/Pulmonary Data. 06/05/2022 9:10 EST Respiratory WNL 06/05/2022 9:09 EST Respiratory Treatment(s) Cough and deep breathe . Evaluation patient A/Ox3, OOB independent with walker, PT worked with patient today, see their note for more details. Patient did have purewick in place but decided that a brief was a better option. pt refused lactulose, neuros remain WNL. One more dose of ceftriaxone given. Plan is for patient to go home today with services. call tineo within reach at all times and patient able to ring appropriately.. * Kenny ABEL, Earline: MODIFY, SIGN, SIGN, PERFORM, SIGN, VERIFY, MODIFY Event Display: Progress Note Hospital Authored Date: Patient: HANNAH GILBERT Age: 71 years Sex: Female : 1950 Associated Diagnoses: None Author: Kenny ABEL, Earline Findings Problem Related to Alteration in Genitourinary : Alteration in Genitourinary Function/new 06/05/2022 0:00 EST Alteration in Status Related to UTI Goals & Outcomes, Genitourinary Pt will achieve normal/improved fluid balance, Pt will maintainadequate GI function appropriate for pt, Pt will maintain adequate function appropriate for pt, Pt will maintain normal fluid balance, Pt will resume normal pattern of elimination, Pt/caregiver will state understanding of self-care skills Interventions, Assess/monitor/maintain Genitourinary status, Assist & encourage pt with meticulous lety care, Encourage PO fluid intake as allowed by diet Goals/Interventions, Genitourinary Yes Genitourinary, Problem Start 06/05/2022 0:54 Reviewed Plan with, Genitourinary Patient Patient Progression, Genitourinary Plan Initiation Genitourinary, Problem Ongoing Yes . Nursing Data Cardiac Data. : Cardiac Data. 06/04/2022 21:00 EST Cardiovascular Symptoms None Nail Bed Color, Fingers [place] Nail Bed Color, Toes [place] Skin Temperature Upper Extremities Warm, Dry Skin Temperature Lower Extremities Warm, Dry Heart Sounds S1, S2 Heart Rhythm Regular Pacemaker No Radial Pulse, Left Normal Radial Pulse, Right Normal Dorsalis Pedis Pulse, Left Normal Dorsalis Pedis Pulse, Right Normal night monitor No Cardiovascular WNL except . Respiratory/Pulmonary Data. : Respiratory/Pulmonary Data. 06/04/2022 21:00 EST Respiratory Symptoms None Respiratory effort Unlabored Chest expansion Symmetrical Accessory Muscles use No Cough No cough Respiratory pattern Regular Left Upper Lobe Breath Sounds Clear Right Upper Lobe Breath Sounds Clear Right Middle Lobe Breath Sounds Clear Left Lower Lobe Breath Sounds Clear Right Lower Lobe Breath Sounds Clear Respiratory distress None Respiratory Treatment(s) Cough and deep breathe Respiratory Treatment(s) Incentive spirometry Respiratory WNL except . Vital Signs : VITAL SIGNS SECTION 06/04/2022 20:26 EST Pulse Rate 73 bpm Respiratory Rate 18 br/min Systolic Blood Pressure 143 mm Hg H Diastolic Blood Pressure 47 mm Hg L Blood pressure sites Arm, left Mean Arterial Pressure 79 mm Hg Pulse Pressure 96 mm Hg Oxygen Saturation 100 % Mode of Delivery (Oxygen) Room air . Narrative/Incidental patient is alert and oriented. no tele ordered, sating wnl on RA. denies chest pain dizziness and denies SOB. Per patient last BM 06/03. patient skin is intact, intact skin abnormality on left hand patient states she burned her hand on her stove, now healed. x1 assist with walker at baseline, bed alarm building consultant tineo in reach bed in lowest locked position. able to chnage own position in bed. VS stable. all needs met. chest ct in progress.... * Funmilayo FRANKLIN, Marily Clark: MODIFY, PERFORM Event Display: Progress Note Hospital Authored Date: [id number] Patient: ??GILBERT, HANNAH ? Age:??71 Years?Sex:??Female?:??1950?? Subjective Patient seen and examined at bedside. afebrile, on room air. poc elevated this am, improved. ordered brissa labs this am. renal function improving. pt notes headache. denies chest pain sob. Review of Systems as above otherwise negative Objective ? Vital Signs?? Temperature: 98.1 DegF (06/04/22 08:00:00) Temperature Route: Oral (06/04/22 08:00:00) Pulse Rate: 82 bpm (06/04/22 08:00:00) Respiratory Rate: 16 br/min (06/04/22 08:00:00) Systolic Blood Pressure: 132 mm Hg (06/04/22 10:06:00) Diastolic Blood Pressure:??53 mm Hg??Low (06/04/22 10:06:00) Blood pressure sites: Arm, right (06/04/22 08:00:00) Mean Arterial Pressure: 75 mm Hg (06/03/22 14:18:00) Pulse Pressure: 79 mm Hg (06/04/22 08:00:00) Oxygen Saturation: 100 % (06/04/22 08:00:00) Mode of Delivery (Oxygen): Room air (06/04/22 08:00:00) Early Warning Score: 0 (06/04/22 12:45:13) ? Intake/Output? 06/03 15:34 06/04 07:00 06/03 07:00 06/02 07:00 06/01 07:00 ?? 06/04 13:27 06/04 13:27 06/04 06:59 06/03 06:59 06/02 06:59 Intake ? 10 ?0 ?0 ?0 ? 10 Output ?0 ?0 ?0 ?0 ?0 Net Total ? 10 ?0 ?0 ?0 ? 10 ? Physical Exam General: awake alert answers appropriately, in no apparent distress HEENT: EOMI, sclera anicteric, moist oral mucosa Neck: supple Pulmonary: CTAB, normal WOB Cardiovascular: s1s2 audible Gastrointestinal: soft and nontender Extremities: no peripheral edema Neurologic: moves all 4 extremities Psych: mood and affect normal _ Inpatient Medications Medications (27) Active SCHEDULED: (14) Amlodipine 5 mg Tablet (Norvasc 5 mg oral tablet) ??2.5 mg, By Mouth, Daily Aspirin 81 mg EC Tablet (aspirin 81 mg oral delayed release tablet) ??81 mg, By Mouth, Daily Ceftriaxone 1 Gm Inj (Ceftriaxone Inj) ??1 Gm, IVPB, Every 24 hours Ferrous Sulfate 325 mg EC Tablet (ferrous sulfate 325 mg oral enteric coated tablet) ??325 mg, By Mouth, Daily Heparin 5000 units/mL Inj (1 mL) (Heparin Inj) ??5,000 units 1 mL, Subcutaneous Injection, 3 times a day Insulin Glargine 100 units/mL Inj (Insulin Glargine Inj) ??15 units 0.15 mL, Subcutaneous Injection, Daily at bedtime Insulin Lispro 100 units/mL Inj (3mL) (Insulin LISPRO Sliding Scale) ??2-10 units, Subcutaneous Injection, 3 times a day before meals Lactulose 20 Gm/30mL Syrup (lactulose 10 gm/15 ml oral syrup) ??30 Gm 45 mL, By Mouth, 3 times a day NaCl 0.9% Flush 3ml (NaCL 0.9% Flush) ??3 mL, IV Push, Every 8 hours Pantoprazole 40 mg EC Tablet (pantoprazole 40 mg oral delayed release tablet) ??40 mg, By Mouth, Daily Quetiapine 25 mg Tablet (QUEtiapine 25 mg oral tablet) ??50 mg, By Mouth, 2 times a day Rifaximin 550 mg Tab (RifAXIMIN Tablet) ??550 mg, By Mouth, 2 times a day Trazodone 50 mg Tablet (traZODone 50 mg oral tablet) ??50 mg, By Mouth, Daily at supper Ursodiol 300 mg Capsule (ursodiol 300 mg oral capsule) ??300 mg, By Mouth, 3 times a day CONTINUOUS: (0) PRN: (13) Acetaminophen 325 mg Tablet (Acetaminophen Tablet) ??650 mg, By Mouth, Every 4 hours Al hydroxide/Mg hydroxide/simethicone 200 mg-200 mg-20 mg/5 mL Susp UD (Maalox Plus Liquid) ??30 mL, By Mouth, Every 8 hours Dextrose Inj Syringe (Dextrose 50% Inj Syringe (25Gm)) ??12.5 Gm, IV Push Slowly, Every 20 minutes Dextrose Inj Syringe (Dextrose 50% Inj Syringe (25Gm)) ??25 Gm, IV Push Slowly, Every 15 minutes Glucagon 1 mg Inj (Glucagon Inj) ??1 mg, Intramuscular, Once Glucose 40% Gel (15 Gm) (Glucose Gel) ??15 Gm, By Mouth, Every 20 minutes Glucose 40% Gel (15 Gm) (Glucose Gel) ??30 Gm, By Mouth, Every 20 minutes Melatonin 3 mg Tablet (Melatonin Tablet) ??9 mg, By Mouth, Daily at bedtime NaCl 0.9% Flush 3ml (NaCL 0.9% Flush) ??3 mL, IV Push, Every 8 hours Ondansetron 2mg/mL Inj (2mL Vial) (Zofran Inj) ??4 mg, IV Push, Every 6 hours Polyethylene Glycol 17 Gm Powder (MiraLax Powder) ??17 Gm 1 pack/packet, By Mouth, Daily Senna 8.6 mg / Docusate 50 mg tablet (Docusate/Senna Tablet) ??1 tablet, By Mouth, 2 times a day Simethicone 80 mg Chewable Tablet (Simethicone Tablet) ??80 mg, Chew, 3 times a day ? 72 Hour Antibiotic History Active Antibiotics Calendar Day Last Administered First Administered Rifaximin??550 mg, By Mouth, 2 times a day ?3 06/04/2022 10:06 06/02/2022 20:30 Ceftriaxone??1 Gm, 100 mL/hr, IVPB, Every 24 hours ?3 06/03/2022 19:41 06/02/2022 16:11 ? Stopped Antibiotics Stop Date/Time Last Administered First Administered Ceftriaxone??1 Gm, 10 mL, 10 mL/hr, IVPB, Once 06/01/2022 22:17 06/01/2022 22:17 06/01/2022 22:17 ? Results Recent Labs BLOOD COUNT & DIFF WBC 5.0 k/mm3 ()?? 06/03/2022 05:58 RBC 3.41 m/mm3 (Low)?? 06/03/2022 05:58 Hgb 9.2 Gm/dL (Low)?? 06/03/2022 05:58 Hct 29.0 % (Low)?? 06/03/2022 05:58 MCV 85.0 femtoliters ()?? 06/03/2022 05:58 MCH 27.0 pg ()?? 06/03/2022 05:58 MCHC 31.7 g/dL (Low)?? 06/03/2022 05:58 Platelet Count 208 k/mm3 ()?? 06/03/2022 05:58 RDW-SD 55.6 femtoliters (High)?? 06/03/2022 05:58 MPV 10.8 femtoliters ()?? 06/03/2022 05:58 Nucleated RBC (Automated) 0.0 #/100 WBC'S ()?? 06/03/2022 05:58 Abs. NRBC 0.0 k/mm3 ()?? 06/03/2022 05:58 Abs. Neut 2.9 k/mm3 ()?? 06/03/2022 05:58 Abs. Lymph 1.6 k/mm3 ()?? 06/03/2022 05:58 Abs. Perkins 0.4 k/mm3 ()?? 06/03/2022 05:58 Abs. Eo 0.1 k/mm3 ()?? 06/03/2022 05:58 Abs. Baso 0.0 k/mm3 ()?? 06/03/2022 05:58 Neut % 56.9 % ()?? 06/03/2022 05:58 Lymph % 32.1 % ()?? 06/03/2022 05:58 Perkins % 7.6 % ()?? 06/03/2022 05:58 Eos % 2.8 % ()?? 06/03/2022 05:58 Baso % 0.4 % ()?? 06/03/2022 05:58 Imm Gran 0.2 % ()?? 06/03/2022 05:58 Abs. Imm Gran 0.0 k/mm3 ()?? 06/03/2022 05:58 ?? CHEM GENERAL Sodium 136 mmol/L ()?? 06/04/2022 11:16 Potassium 5.1 mmol/L ()?? 06/04/2022 11:16 Chloride 104 mmol/L ()?? 06/04/2022 11:16 Bicarbonate Level 24 mmol/L ()?? 06/04/2022 11:16 Anion Gap 8 ()?? 06/04/2022 11:16 Glucose Level 132 mg/dL (High)?? 06/03/2022 17:06 Glucose, POC 315 mg/dL (High)?? 06/04/2022 12:37 BUN 30 mg/dL (High)?? 06/04/2022 11:16 Creatinine-Blood 1.4 mg/dL (High)?? 06/04/2022 11:16 Estimated GFR Creatinine 39 ML/MIN/1.73 M2 ()?? 06/04/2022 11:16 Calcium 9.5 mg/dL ()?? 06/03/2022 17:06 Phosphorus 3.2 mg/dL ()?? 06/03/2022 05:58 Magnesium 2.1 mg/dL ()?? 06/03/2022 05:58 Albumin 3.0 Gm/dL (Low)?? 06/03/2022 05:58 Alkaline Phosphatase 281 units/L (High)?? 06/03/2022 05:58 AST (SGOT) 26 units/L ()?? 06/03/2022 05:58 ALT (SGPT) 18 units/L ()?? 06/03/2022 05:58 Bilirubin, Total 0.3 mg/dL ()?? 06/03/2022 05:58 Bilirubin, Direct 0.2 mg/dL ()?? 06/03/2022 05:58 Bilirubin, Indirect 0.1 mg/dL ()?? 06/03/2022 05:58 ?? COAG INR 1.1 ()?? 06/03/2022 05:58 Protime (PT) 11.3 seconds ()?? 06/03/2022 05:58 APTT 25.2 seconds ()?? 06/03/2022 05:58 ? Blood Glucose Trend Glucose Level:??132 mg/dL??High (06/03/22 17:06:00) Glucose, POC:??315 mg/dL??High (06/04/22 12:37:00) Glucose, POC:??357 mg/dL??High (06/04/22 08:43:00) Glucose, POC:??309 mg/dL??High (06/04/22 05:48:00) Glucose, POC:??136 mg/dL??High (06/03/22 17:27:00) ? Coagulation Profile?? No qualifying data available. ?? Microbiology ?? COVID-19, RSV, and Flu A/B, Rapid PCR?? Completed?? Source: Nasal Body Site: Nose Collected Dt/Tm: 06/01/2022 18:39 Last Updated Dt/Tm: 06/01/2022 19:53 ? Assessment/Plan 71-year-old female with??CAD s/p RADHA 2020, autoimmune hepatitis, CKD, type 2 diabetes mellitus insulin-dependent, hypertension, hyperlipidemia, gastritis who presents to emergency department on 06/01/2022 with fatigue, lightheadedness, nausea, abdominal pain, dysuria found to have altered mental status, UTI, hyperkalemia ?? E coli urinary tract infection - susceptible to ctx Altered mental status -?? AOx1 on admission, not her baseline - much improved Decreased p.o. intake Fatigue Lightheadedness Abdominal pain Patient presented from home with 3 to 4 days of fatigue with some weakness in her legs along with burning with urination and increased urination. She also endorsed decreased p.o. intake On admission, UA showed signs of infection with leukocyte 3+, WBCs 35. ?? Imaging: Chest x-ray showed poorly defined density in the right upper lobe potentially appearing since the prior examination. Question of prominent right hilum with a possibility of a right suprahilar mass. Correlation with CT scan of the chest with IV contrast administration is advised to further evaluation these findings. Hypoinflated lungs bilaterally unchanged. Prominent cardiomediastinal silhouette unchanged. Follow up CT chest CT of head showed no acute intracranial pathology CT abdomen pelvis with IV contrast showed no acute inflammatory process in the abdomen/pelvis. No evidence of bowel obstruction. Tiny ventral hernia in the right lower quadrant contains a tiny portion of cecum although appears unobstructed. Cirrhotic liver is unchanged. Few nonobstructing right sided renal stones. Extensive right renal scarring and atrophy. ?? Etiology of clinical symptoms concerning for urinary tract infection causing weakness. Patient alsoappears dehydrated secondary to decreased p.o. intake from altered mental status from UTI. Less likely decompensated cirrhosis ?? Currently on??ceftriaxone and 1.5 L total of fluid, switch to po tomorrow if remains afebrile, hemodynamically stable. Encourage adequate p.o. intake? Hyperkalemia - resolved Chronic kidney disease Admission potassium 5.3, creatinine 1.5 (baseline creatinine 1.3) relative insulin deficiency leading to it as well as hypovolemia leading to reduced gfr ? Diabetes mellitus Hyperglycemia Patient presented with glucose level 420.??HbA1C of 11%.??Could be the cause of her dizziness.??Likely also worsened currently by infection. ?? Plan: Insulin glargine 15 units daily, will titrate to fasting BG of 150 or less POC's 3 times a day and daily at bedtime ??sliding scale insulin Emergency hypoglycemia measures ?? Coronary artery disease status post stent 2019 Patient states she is on aspirin 81 mg daily. Unclear if patient is on ticagrelor/Brilinta 90 mg twice daily. Per discharge summary 03/2022, patient was supposed to be taking this. However, during the MAR summary during that March 2022 hospitalization, the patient was not taking any ticagrelor/Br ilinta. Patient and family member unsure if patient is taking this anymore. ?? Plan: Aspirin 81 mg daily Hold ticagrelor/Brilinta 90 mg twice daily ? 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 Abdomen slightly tender to palpation worse in RUQ and LUQ ?? Plan: Pantoprazole 40 mg daily Continue lactulose Continue rifaximin Continue ursodiol 300 mg 3 times a day Patient is on Linzess at home, patient will need to bring in this medication as pharmacy does not have this If patient continues to have AMS, consider more aggressive bowel regimen, ammonia level, and further workup for decompensated cirrhosis Close outpatient GI follow-up ?? Hypertension On amlodipine 2.5 mg daily at home ?? Plan: Continue amlodipine 2.5 mg daily ?? Incidental CT findings Chest x-ray showed poorly defined density in the right upper lobe potentially appearing since the prior examination. Question of prominent right hilum with a possibility of a right suprahilar mass. Correlation with CT scan of the chest with IV contrast administration is advised to further evaluation these findings. Hypoinflated lungs bilaterally unchanged. Prominent cardiomediastinal silhouette unchanged ?? Plan: f/u CT chest, if not done, can be done OP. ?? Chronic medical conditions: ?insomnia - continue trazodone 50 mg daily at night, continue seroquel 50 mg twice daily Anemia - continue ferrous sulfate 325 mg daily ?? Discharge Planning:??PT recommends home with physical therapy. plan for dc tomorrow if remains afebrile, hemodynamically stable. CT chest may be done OP if not done. Note * Isatu Robles RN: PERFORM Event Display: Discharge/Transfer Note Hospital Authored Date: [id number] Nursing Discharge Note Entered On: 06/05/2022 19:47 EST Performed On: 06/05/2022 19:47 EST by Isatu Robles RN Nursing Discharge Note 2 Discharge Time : 06/05/2022 19:30 EST Discharge Level of Care at Discharge : Homehealth/VNA Discharge VNA/Hospice/Home Care(v001) : [facility] Patient Left Unit Via : Wheelchair Patient Accompanied Off Unit with : Responsible adult DC Instructions Provided & Signed by Pt : Yes Patient Understands D/C Instructions : Yes Patient Instructions Discharge Signed : Yes Did Pt have Specialty Bed or Wound Vac : No Margaret ABEL, Isatu - 06/05/2022 19:47 EST * Castillo DO, Erica: PERFORM Castillo DO, Erica: PERFORM, MODIFY Castillo DO, Erica: MODIFY, MODIFY Castillo DO, Erica: MODIFY, MODIFY Castillo DO, Erica: MODIFY, MODIFY Castillo DO, Erica: MODIFY, MODIFY Castillo DO, Erica: MODIFY, MODIFY Castillo DO, Erica: MODIFY, MODIFY Castillo DO, Erica: MODIFY, MODIFY Castillo DO, Erica: MODIFY, MODIFY Castillo DO, Erica: MODIFY, MODIFY Castillo DO, Erica: MODIFY, MODIFY Castillo DO, Erica: MODIFY, MODIFY Castillo DO, Erica: MODIFY, MODIFY Castillo DO, Erica: MODIFY, MODIFY Castillo DO, Erica: MODIFY, MODIFY Castillo DO, Erica: MODIFY, MODIFY Castillo DO, Erica: MODIFY, MODIFY Castillo DO, Erica: MODIFY, MODIFY Castillo DO, Erica: MODIFY, MODIFY Castillo DO, Erica: MODIFY, MODIFY Castillo DO, Erica: MODIFY, MODIFY Castillo DO, Erica: MODIFY, MODIFY Castillo DO, Erica: MODIFY, MODIFY Castillo DO, Erica: MODIFY, MODIFY Castillo DO, Erica: MODIFY, MODIFY Castillo DO, Erica: MODIFY, MODIFY Castillo DO, Erica: MODIFY Event Display: Discharge/Transfer Note Hospital Authored Date: [id number] Patient: ??HANNAH GILBERT ? Age:??71 Years?Sex:??Female?:??1950?? Patient Information Discharge Location: 7 Primary Care Physician: Kathy Buck MD Admit Date/Time: 06/03/22 15:34 Discharge date: 06/05/2022 Discharge Disposition Discharge Disposition: home health Discharge Diagnosis UTI (urinary tract infection) (N39.0) Weakness (R53.1) Altered Mental Status Hyperkalemia _ Discharge Medications Acetaminophen (acetaminophen 500 mg oral tablet)?2?tab(s)?1,000?Milligram?By Mouth?Daily?as needed?for fever Amlodipine (Norvasc 2.5 mg oral tablet)?2.5?Milligram?1?tablet?By Mouth?Daily?[facility]ills [phone] Aspirin (aspirin 81 mg oral delayed release tablet)?81?Milligram?1?tablet?By Mouth?Daily Cetirizine (cetirizine 5 mg oral tablet)?5?Milligram?By Mouth?Daily Cholecalciferol (Vitamin D3 2000 intl units oral tablet)?1?tab(s)?50?Microgram?By Mouth?Daily Escitalopram (escitalopram 5 mg oral tablet)?1?tab(s)?5?Milligram?By Mouth?Daily Ferrous Fumarate (ferrous fumarate 300 mg oral tablet)?1?tab(s)?300?Milligram?By Mouth?Daily?for 30?Days Fluticasone Nasal (fluticasone 50 mcg/inh nasal spray)?1?spray(s)?Nares, Both?2 times aday Glucose (Dex4 Tropical Blast 45% oral gel)?15?gram?By Mouth?Once?as needed?as needed for low blood sugar Insulin Glargine (insulin glargine 100 units/mL subcutaneous solution)?15?unit(s)?Subcutaneous Injection?Daily in AM Insulin Lispro (insulin lispro 100 units/mL injectable solution)?2-8 units?Subcutaneous Injection?3 times a day before meals?120 - 149 ?? 2 units 150 - 179 ?? 3 units 180 - 209 ?? 4 icumv101 - 239 ?? 6 - 269 ?? 7 units 270 - 299 ?? 8 unitsCall MD if greater than 300 Lactulose (lactulose 10 gm/15 ml oral syrup)?45?Milliliter?30?gram?By Mouth?3 times a day?Titrate up to 2-3 bowel movements per day or until she has a bowel movement. linaclotide (Linzess 145 mcg oral capsule)?1?capsule?145?Microgram?By Mouth?Daily Ondansetron (ondansetron 4 mg oral tablet, disintegrating)?1?tab(s)?4?Milligram?By Mouth?Every 8 hours?as needed?Nausea & Vomiting Pantoprazole (Protonix 40 mg oral delayed release tablet)?1?tab(s)?40?Milligram?By Mouth?Daily Polyethylene Glycol 3350 (MiraLax oral powder for reconstitution)?17?gram?By Mouth?2 times a day before breakfast and dinne?dissolve in water before taking Rifaximin (rifAXIMin 550 mg oral tablet)?1?tab(s)?550?Milligram?By Mouth?2 times a day Trazodone (traZODone 50 mg oral tablet)?50?Milligram?1?tablet?By Mouth?Daily at supper Ursodiol (ursodiol 300 mg oral capsule)?300?Milligram?1?capsule?By Mouth?3 times a day?for 30?Days ? Medications Started none Medications Discontinued Ticagrelor (ticagrelor 90 mg oral tablet)?1?tab(s)?90?Milligram?By Mouth?2 times a day?for 30?Days?Please conctact office for apt. for further refills [phone] Doses Changed none Allergies Allergies ?(Active and Proposed Allergies Only) NKA? (Severity: Unknown severity, Onset: Unknown) ? PCP Follow-Up/Heads-Up She was treated??for urinary tract infection??with??5 days of ceftriaxone. It is unclear why??she remains??on ticagrelor from 2019.?? This has been discontinued. Her hemoglobin A1c is 11%.?? She will need close follow-up for titration of her diabetic regimen. There was concern for right perihilar mass on chest x-ray.?? CT chest was obtained??that showed No interval change compared with 03/04/2022. Tree-in-bud nodularity in the posterior RIGHT upper lobe isstable, largest component measuring 7 mm. Tiny regions of tree-in-bud opacities in the medial and lateral RIGHT middle lobe are stable. Stable additional scattered 1-3 mm pulmonary nodules. No new orenlarging pulmonary nodules. Please continue to follow this. Future Appointments Thursday 12:30 PM EDT ?? With: Yakov FRANKLIN, Scott Where: [facility] [address] [place] [address]- Hospital Course Hannah is a 71-year-old female past medical history of CAD s/p RADHA 2019, autoimmune hepatitis, CKD, type 2 diabetes mellitus insulin-dependent, hypertension, hyperlipidemia, gastritis who presented with??altered mental status, fatigue, lightheadedness, and??dysuria. She was found to have a UTI and was hyperkalemic to 5.3. CXR showed possible right suprahilar mass. CT head with no acute findings. CTabdomen with tiny ventral hernia in RLQ, cirrhotic liver, non-obstructing renal stones, without other acute findings.??Her urine culture grew E coli which was susceptible to the 5 day course of ceftriaxone that she received. ?? At this time, she is hemodynamically stable, her altered mental status??has resolved back to her baseline, her hyperkalemia has resolved and she is ready to be discharged home with services. She willhave her other services resumed on discharge and her grandson (ACTIVITY SPECIALIST) plans to stay with her for a few weeks after discharge for extra support. ?? E coli urinary tract infection S/P 5 days of Ceftriaxone Altered mental status -??resolved Patient presented from home with 3 to 4 days of fatigue with some weakness in her legs along with burning with urination and increased urination. She also endorsed decreased p.o. intake On admission, UA showed signs of infection with leukocyte 3+, WBCs 35. Urine culture growing E coli, susceptible to ceftriaxone. S/P 5 day course of ceftriaxone.??No further antibiotic therapy is needed. ?? Hyperkalemia - resolved Chronic kidney disease Admission potassium 5.3, creatinine 1.5 (baseline creatinine 1.3) ?? Recommendations: -please monitor renal function ?? Diabetes mellitus Hyperglycemia Patient presented with glucose level 420.??HbA1C of 11%.??Could be the cause of her dizziness.??Likely also worsened currently by infection. ?? Recommendations: -resume home??diabetes regimen -HgbA1c 11%. Will need close follow up with PCP for diabetic regimen titration ?? Coronary artery disease status post stent 2019 Unclear if patient is on ticagrelor/Brilinta 90 mg twice daily. Which was prescribed??in??2019??after her stent.?She has completed??more than a??year??of this and I do not believe she needs this any longer. ??Will discontinue at this time. During the MAR summary during that March 2022 hospitalization, the patient was not taking any ticagrelor/Brilinta. Patient and family member unsure if patient is taking this anymore. ?? Recommendations: -Aspirin 81 mg daily -stop ticagrelor ?? 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 Abdomen slightly tender to palpation worse in RUQ and LUQ ?? Recommendations: -Pantoprazole 40 mg daily -Continue lactulose -Continue rifaximin -Continue ursodiol 300 mg 3 times a day -continue Linzess -Close outpatient GI follow-up ?? Hypertension On amlodipine 2.5 mg daily at home ?? Recommendations: Continue amlodipine 2.5 mg daily ?? Concern for Right Perihilar Mass: CXR showed ?right perihilar mass, recommended CT chest. CT chest: No interval change compared with 03/04/2022. Tree-in-bud nodularity in the posterior RIGHTupper lobe is stable, largest component measuring 7 mm. Tiny regions of tree-in-bud opacities in the medial and lateral RIGHT middle lobe are stable. Stable additional scattered 1-3 mm pulmonary nodules. No new or enlarging pulmonary nodules. ?? Recommendations: -outpatient follow up ?? Objective Vital Signs?? Temperature: 97.8 DegF (06/05/22 08:14:00) Temperature Route: Temporal (06/05/22 08:14:00) Pulse Rate: 68 bpm (06/05/22 08:14:00) Respiratory Rate: 18 br/min (06/05/22 08:14:00) Systolic Blood Pressure:??140 mm Hg??High (06/05/22 09:05:00) Diastolic Blood Pressure: 70 mm Hg (06/05/22 09:05:00) Blood pressure sites: Arm, right (06/05/22 08:14:00) Mean Arterial Pressure: 96 mm Hg (06/05/22 08:14:00) Pulse Pressure: 66 mm Hg (06/05/22 08:14:00) Oxygen Saturation: 98 % (06/05/22 08:14:00) Mode of Delivery (Oxygen): Room air (06/05/22 08:14:00) Early Warning Score: 2 (06/05/22 11:24:17) ? Intake/Output? 06/03 15:34 06/05 07:00 06/04 07:00 06/03 07:00 06/02 07:00 ?? 06/05 14:11 06/05 14:11 06/05 06:59 06/04 06:59 06/03 06:59 Intake ?370 ?240 ?120 ?0 ?0 Output ?0 ?0 ?0 ?0 ?0 Net Total ?370 ?240 ?120 ?0 ?0 ? Urine Count ?1 ?0 ?1 ?0 ?0 ? Precautions No Precautions documented.? Basic ADLs Ambulatory devices needed: Walker (06/05/22) Hygiene: Self, Lety care, Other: new brief (06/04/22) ? Therapeutic Activity Therapeutic Activities/Mobility/Balance Comments on treatment indicated: 71 y/o F admit with multiple complaints found to have UTI. ??Recommend return home with ACTIVITY SPECIALIST assist and home PT. (06/02/22 11:03:00) Treatment Indicated-PT: Yes (06/02/22 11:03:00) Discharge recommendations: Home with services (06/02/22 11:03:00) Plan Discussed w/Pt,Family/Agreed Upon: Yes (06/02/22 11:03:00) Plan discussed with care team PT: RN, PT, greenhouse manager (06/02/22 11:03:00) ?? . Physical Exam General: Pleasant older woman who is alert and oriented x3. Demonstrates HEENT: EOMI, sclera anicteric, moist oral mucosa Pulmonary: CTAB, normal WOB Cardiovascular: RRR, no murmurs, rubs, gallops Gastrointestinal: Mild discomfort suprapubically Extremities: no peripheral edema Neurologic: moves all 4 extremities Psych: mood and affect normal Patient Education Titles Understanding Urinary Tract Infections (UTIs)?? Urinary Tract Infections in Women?? Follow-Up Appointments Added Follow Up ?Time Frame ?Comments Heber FRANKLIN, Kathy?3-5 day: call to discuss follow up visit Patient Instructions You were admitted??to the hospital??for a urinary tract infection. ??You were??given??IV??antibiotic called ceftriaxone??for total 5 days.?? Your confusion has resolved.?? You were also found to haveelevated potassium levels??which have now??normalized.?? You had a CT scan??of your head??that was normal.? Please follow-up??with your PCP. ?? It is unclear why??you are still on??ticagrelor.?? This has been discontinued.?? Please address this with your PCP. ?? You are not started on??any new medications and you should resume??all of your other medication??beside the??ticagrelor. Post Discharge Care Diet: Diabetic Diet Activity: Ambulate with assistance ??3 times a day ??unless otherwise specified Code Status: ?? Full Resuscitation Condition: fair Prognosis: Fair Home Health Face to Face *Denotes mandatory de la fuente ?? *I certify that this patient is under my care and that I or an allowed non- physician working with me had a face to face encounter with the patient on this date:??06/05/2022 14:42 ?? *The encounter with the patient was in whole, or in part, for the following medical condition, which is the primary diagnosis(es) for home health care:??UTI (urinary tract infection) (N39.0) Weakness (R53.1) ? *Select the indications for the discipline/s that are being arranged for this patient. Nursing (select all that apply): [_] None [X] Medication management (reconciliation, teaching)?? [X] Chronic disease management?? [X] Wound care and treatment?? [X] Home safety evaluation [_] Administer SQ/IM/IV medications?? [_] Cath care?? [_] Drain care?? [_] Trach or GT care?? Other _ Occupation Therapy (select all that apply): [_] None [_] ADL Management [_] Fall prevention training [_] Energy conservation [_] Cognitive training Other _ Physical Therapy (select all that apply): [_] None [X] Functional mobility training [X] Home exercise program to strengthen [X] Increase ROM?? [X] Falls prevention training [X] Home maintenance program for chronic disease Other _ Speech Therapy (select all that apply): [_] None [_] Swallow evaluation and training [_] Speech and language training [_] Cognitive training to process, organize, and/or recall information Other _ ? *Homebound due to (select all that apply): [_] Inability to leave home without assistance/supervision [X] Inability to ambulate without assistance [_] Pain [_] Decreased strength and endurance [_] Unsteady gait [_] Severe SOB and fatigue [_] Impaired transfers [_] Inability to negotiate stairs [_] Limited weight bearing [_] Mental status change? *Physician Signature:??Erica Castillo ?? *By signing this, I certify that I have personally evaluated the patient and agree with the findings and recommendations as documented above. ? Results Imaging: Chest x-ray showed poorly defined density in the right upper lobe potentially appearing since the prior examination. Question of prominent right hilum with a possibility of a right suprahilar mass. Correlation with CT scan of the chest with IV contrast administration is advised to further evaluation these findings. Hypoinflated lungs bilaterally unchanged. Prominent cardiomediastinal silhouette unchanged. Follow up CT chest CT of head showed no acute intracranial pathology CT abdomen pelvis with IV contrast showed no acute inflammatory process in the abdomen/pelvis. No evidence of bowel obstruction. Tiny ventral hernia in the right lower quadrant contains a tiny portion of cecum although appears unobstructed. Cirrhotic liver is unchanged. Few nonobstructing right sided renal stones. Extensive right renal scarring and atrophy. ?? Discharge Labs BLOOD COUNT & DIFF WBC 5.0 k/mm3 ()?? 06/03/2022 05:58 RBC 3.41 m/mm3 (Low)?? 06/03/2022 05:58 Hgb 9.2 Gm/dL (Low)?? 06/03/2022 05:58 Hct 29.0 % (Low)?? 06/03/2022 05:58 MCV 85.0 femtoliters ()?? 06/03/2022 05:58 MCH 27.0 pg ()?? 06/03/2022 05:58 MCHC 31.7 g/dL (Low)?? 06/03/2022 05:58 Platelet Count 208 k/mm3 ()?? 06/03/2022 05:58 RDW-SD 55.6 femtoliters (High)?? 06/03/2022 05:58 MPV 10.8 femtoliters ()?? 06/03/2022 05:58 Nucleated RBC (Automated) 0.0 #/100 WBC'S ()?? 06/03/2022 05:58 Abs. NRBC 0.0 k/mm3 ()?? 06/03/2022 05:58 Abs. Neut 2.9 k/mm3 ()?? 06/03/2022 05:58 Abs. Lymph 1.6 k/mm3 ()?? 06/03/2022 05:58 Abs. Perkins 0.4 k/mm3 ()?? 06/03/2022 05:58 Abs. Eo 0.1 k/mm3 ()?? 06/03/2022 05:58 Abs. Baso 0.0 k/mm3 ()?? 06/03/2022 05:58 Neut % 56.9 % ()?? 06/03/2022 05:58 Lymph % 32.1 % ()?? 06/03/2022 05:58 Perkins % 7.6 % ()?? 06/03/2022 05:58 Eos % 2.8 % ()?? 06/03/2022 05:58 Baso % 0.4 % ()?? 06/03/2022 05:58 RBC Morphology MODERATE ()?? 06/01/2022 19:12 Imm Gran 0.2 % ()?? 06/03/2022 05:58 Abs. Imm Gran 0.0 k/mm3 ()?? 06/03/2022 05:58 ? CARDIAC High Sensitivity Troponin (HSTnT) 14 ng/L (High)?? 06/02/2022 01:31 ? CHEM GENERAL Sodium 136 mmol/L ()?? 06/05/2022 07:36 Potassium 5.1 mmol/L ()?? 06/05/2022 07:36 Chloride 102 mmol/L ()?? 06/05/2022 07:36 Bicarbonate Level 23 mmol/L ()?? 06/05/2022 07:36 Anion Gap 11 ()?? 06/05/2022 07:36 Glucose Level 132 mg/dL (High)?? 06/03/2022 17:06 Glucose, POC 281 mg/dL (High)?? 06/05/2022 11:21 Hemoglobin A1C (Monitoring) 11.1 % (High)?? 06/02/2022 14:43 Beta Hydroxybutyrate 0.07 mmol/L ()?? 06/02/2022 01:31 BUN 28 mg/dL (High)?? 06/05/2022 07:36 Creatinine-Blood 1.4 mg/dL (High)?? 06/05/2022 07:36 Estimated GFR Creatinine 39 ML/MIN/1.73 M2 ()?? 06/05/2022 07:36 Calcium 8.7 mg/dL ()?? 06/04/2022 11:16 Phosphorus 3.1 mg/dL ()?? 06/04/2022 11:16 Magnesium 2.2 mg/dL ()?? 06/04/2022 11:16 Protein, Total 6.4 Gm/dL ()?? 06/01/2022 19:12 Albumin 3.0 Gm/dL (Low)?? 06/03/2022 05:58 AG Ratio 1.1 ()?? 06/01/2022 19:12 Alkaline Phosphatase 281 units/L (High)?? 06/03/2022 05:58 Lipase 31 units/L ()?? 06/01/2022 19:12 AST (SGOT) 26 units/L ()?? 06/03/2022 05:58 ALT (SGPT) 18 units/L ()?? 06/03/2022 05:58 Bilirubin, Total 0.3 mg/dL ()?? 06/03/2022 05:58 Bilirubin, Direct 0.2 mg/dL ()?? 06/03/2022 05:58 Bilirubin, Indirect 0.1 mg/dL ()?? 06/03/2022 05:58 Lactate 0.8 mmol/L ()?? 06/01/2022 18:40 ?? COAG INR 1.1 ()?? 06/03/2022 05:58 Protime (PT) 11.3 seconds ()?? 06/03/2022 05:58 APTT 25.2 seconds ()?? 06/03/2022 05:58 ? ENDOCRINE/TUMOR MARKER TSH 2.70 uIU/mL ()?? 06/01/2022 19:12 ? HEME OTHER Hold Lavender Top SPECIMEN DISCARDED AFTER 24 HOURS. ()?? 06/05/2022 07:36 ? UA/URINALYSIS Appear/Color, Urine LIGHT YELLOW ()?? 06/01/2022 18:14 Specific [place], Urine 1.012 ()?? 06/01/2022 18:14 pH, Urine 6.0 ()?? 06/01/2022 18:14 Albumin, Urine 1+ (Abnormal)?? 06/01/2022 18:14 Glucose, Urine 4+ (Abnormal)?? 06/01/2022 18:14 Ketones, Urine NEGATIVE ()?? 06/01/2022 18:14 Bilirubin, Urine NEGATIVE ()?? 06/01/2022 18:14 Hemoglobin, Urine NEGATIVE ()?? 06/01/2022 18:14 Nitrite, Urine NEGATIVE ()?? 06/01/2022 18:14 Leukocyte, Urine 3+ (Abnormal)?? 06/01/2022 18:14 Urobilinogen NORMAL mg/dL ()?? 06/01/2022 18:14 WBC's, Urine 35 /HPF (High)?? 06/01/2022 18:14 RBC's, Urine 2 /HPF ()?? 06/01/2022 18:14 Bacteria HEAVY HPF (Abnormal)?? 06/01/2022 18:14 Squamous Epith 4 /HPF ()?? 06/01/2022 18:14 Hold Urine Culture Testing available 48 hours from time of collection. ()?? 06/01/2022 18:14 ?? VIROLOGY Influenza A PCR NEGATIVE ()?? 06/01/2022 19:03 Influenza B PCR NEGATIVE ()?? 06/01/2022 19:03 RSV PCR NEGATIVE ()?? 06/01/2022 19:03 COVID-19 PCR Specimen Source NASAL ()?? 06/01/2022 19:03 COVID-19 PCR Result NEGATIVE ()?? 06/01/2022 19:03 ?Discussed case with attending physician, Dr. Mdeeiros 35??minutes spent on discharge * Waldemar FRANKLIN, Han N: PERFORM Event Display: Discharge/Transfer Note Hospital Authored Date: [id number] Attending Attestation: I have??seen and evaluated??HANNAH GILBERT, on 06/05/22. ??I have??reviewed the patient???s medical history, findings on examination, diagnosis, and treatment. I have discussed the case and its management with the resident and agree with the findings and plan as documented in the resident???s note.? _ ? * Silvio ABEL, Brenda Krishnamurthy: PERFORM Event Display: Patient Education/Instruction Authored Date: [id number] Inpatient Adult Discharge Instructions [address] [address] Name: HANNAH GILBERT : 1950 Visit: 06/03/2022 15:34:00 Current Date: 06/05/2022 18:33 Account: [id number] Inpatient Adult Discharge Instructions We would like [...] and their families. Surveys are administered by [employer] ?? If further treatment with your primary care physician or another doctor is recommended, it is important for you to keep the appointment. Call your primary care physician or return to the Emergency Department immediately if your condition worsens, fails to improve, or new symptoms develop. If you need to find a doctor, you can call [facility] [employer] for a referral at [phone] or toll free at [phone] ([phone]) or log in to [email or web address].. ?? You can view and manage your care through the patient portal or by using a health care joe of your choosing. [employer] is a website that allows you to securely view your medical information including your hospital discharge summary, office visit summaries, medications and follow-up visits. You can also request appointments, renew medications, and request access to your medical information using a health care joe of your choosing, or just ask a question. You can enroll at [email or web address] or register during your next office visit. You have been discharged from [facility], Patient Care Unit: M7. If you have any questions regarding these instructions after you leave, please call us and we will be happy to assist you. [facility] Your Care Team Attending Physician Han Medeiros MD Discharging Providers Erica Castillo DO Reason for Admission pt coming from home c/o back pain, dizzyness, and generalized weakness. Your Diagnosis UTI (urinary tract infection) Weakness Tests Performed Below is a partial list of the tests performed during your hospitalization. You may have had other tests and procedures not included in this list. Please discuss all test results with your provider. Albumin Level Alk Phos ALT AST Basic Metabolic Panel BETA HYDROXYBUTYRATE Bilirubin Total + Direct BUN CALCIUM CBC w/ Differential Comprehensive Metabolic Panel COVID-19, RSV, and Flu A/B, Rapid PCR Creatinine Electrolytes GLUCOSE POC HEMOGLOBIN A1C High??Sensitivity??Troponin T HOLD LAVENDER TUBE INR Lactate Level LIPASE MAGNESIUM Mg Level PHOSPHORUS PTT Troponin T, High Sensitivity TSH with T4 Reflex (Adults Only) Urinalysis w/hold for Urine Culture Chest CT W/ Contrast CT Abd/Pelvis W/ IV Contrast Only CT Head/Brain W/O Contrast XR Chest 2 Views Frontal and Lat XR Foot Min 3 Views Right Primary Care Provider Kathy Bukc MD Advance Directive Health Care Proxy on File Yes - Health Care Proxy Discharge Vitals Temperature: 97.8 DegF Weight: 75.4 kg Pulse Rate: 68 bpm ?? Respiratory Rate: 18 br/min ?? Systolic Blood Pressure:??140 mm Hg??High ?? Diastolic Blood Pressure: 70 mm Hg ?? Oxygen Saturation: 98 % ?? Studies Pending All tests and labs ordered during this hospital stay have been completed unless listed below. Please discuss all pending results with your provider listed above in these instructions. ?? Add On Lab Order Blood Culture Blood Culture #2 CBC COVID-19 (2019 Novel Coronavirus) PCR What to do next Instructions From Your Doctor You were admitted??to the hospital??for a urinary tract infection. ??You were??given??IV??antibiotic called ceftriaxone??for total 5 days.?? Your confusion has resolved.?? You were also found to haveelevated potassium levels??which have now??normalized.?? You had a CT scan??of your head??that was normal.? Please follow-up??with your PCP. ?? It is unclear why??you are still on??ticagrelor.?? This has been discontinued.?? Please address this with your PCP. ?? You are not started on??any new medications and you should resume??all of your other medication??beside the??ticagrelor. Discharge Orders Diet:??Diabetic Diet Activity:??Ambulate with assistance 3 times a day unless otherwise specified Code Status:?? Full Resuscitation Condition:??fair Prognosis:??Fair Scheduled Follow-Up Appointments Thursday 12:30 PM EDT ?? With: Scott Nagy MD Where: [facility] [address] [place] [address]- You Need to Schedule the Following Appointments Follow Up with??Kathy Buck MD When??Within 3-5 day: call to discuss follow up visit Where: [address] [place] [address]- Discharge Medications HANNAH GILBERT :1950 Visit Date:06/03/2022 Medications: Please continue your medications until treatment is completed or stopped by your provider. Medications not listed below should be discontinued. Discuss any questions related to medications with your provider. What How Much When Instructions Next Dose Unchanged Acetaminophen (acetaminophen 500 mg oral tablet) 2 tab(s) Oral Daily as needed for for fever as you need Unchanged Amlodipine (Norvasc 2.5 mg oral tablet) 1 tab(s) Oral Daily Please [facility] for further refills [phone] ?? tomorrow in am Unchanged Aspirin (aspirin 81 mg oral delayed release tablet) 1 tab(s) Oral Daily tomorrow in am Unchanged Cetirizine (cetirizine 5 mg oral tablet) 5 Milligram Oral Daily tomorrow in am Unchanged Cholecalciferol (Vitamin D3 2000 intl units oral tablet) 1 tab(s) Oral Daily tomorrow in am Unchanged Escitalopram (escitalopram 5 mg oral tablet) 1 tab(s) Oral Daily tomorrow in am Unchanged Ferrous Fumarate (ferrous fumarate 300 mg oral tablet) 1 tab(s) Oral Daily Duration: 30 Days tomorrow in am Unchanged Fluticasone Nasal (fluticasone 50 mcg/ inh nasal spray) 1 spray(s) Nares, Both Twice a day today at 9pm Unchanged Glucose (Dex4 Tropical Blast 45% oral gel) 15 gram Oral Once as needed for as needed for low blood sugar as you need Unchanged Insulin Glargine (insulin glargine 100 units/ mL subcutaneous solution) 15 unit(s) Subcutaneous Injection Daily in the morning tomorrow in am Unchanged Insulin Lispro (insulin lispro 100 units/ mL injectable solution) 2-8 units Subcutaneous Injection 3 times a day before meals 120 - 149 ?? 2 units 150 - 179 ?? 3 units 180 - 209 ?? 4 units 210 - 239 ?? 6 units 240 - 269 ?? 7 units 270 - 299 ?? 8 units Call MD if greater than 300 ?? tomorrow in am Unchanged Lactulose (lactulose 10 gm/ 15 ml oral syrup) 45 Milliliter Oral 3 times a day Titrate up to 2-3 bowel movements per day or until she has a bowel movement. ?? today at 9pm Unchanged linaclotide (Linzess 145 mcg oral capsule) 1 capsule Oral Daily tomorrow in am Unchanged Ondansetron (ondansetron 4 mg oral tablet, disintegrating) 1 tab(s) Oral Every 8 hours as needed for Nausea & Vomiting as you need Unchanged Pantoprazole (Protonix 40 mg oral delayed release tablet) 1 tab(s) Oral Daily tomorrow in am Unchanged Polyethylene Glycol 3350 (MiraLax oral powder for reconstitution) 17 gram Oral 2 times a day before breakfast and dinner dissolve in water before taking ?? tomorrow before breakfast?? Unchanged Rifaximin (rifAXIMin 550 mg oral tablet) 1 tab(s) Oral Twice a day today at 9pm Unchanged Trazodone (traZODone 50 mg oral tablet) 1 tab(s) Oral Daily at supper tomorrow at dinner time Unchanged Ursodiol (ursodiol 300 mg oral capsule) 1 capsule Oral 3 times a day Duration: 30 Days today at 9pm ?? What How Much When Comments Stop Taking Ticagrelor (ticagrelor 90 mg oral tablet) 1 tab(s) Oral Twice a day Duration: 30 Days Please conctact office for apt. for further refills [phone] ?? Test Results Below is a partial list of the most recent Laboratory test results done prior to this discharge. You may have had other tests and procedures not included in this list. Please discuss all test resultswith your provider. Albumin Level (06/03/2022) ???Albumin - 3.0 Gm/dL Alk Phos (06/03/2022) ???Alkaline Phosphatase - 281 units/L ALT (06/03/2022) ???ALT (SGPT) - 18 units/L AST (06/03/2022) ???AST (SGOT) - 26 units/L Basic Metabolic Panel (06/03/2022) ???Sodium - 142 mmol/L???Potassium - 4.8 mmol/L???Chloride - 106 mmol/L???Bicarbonate Level - 22 mmol/L???Anion Gap - 14???Glucose Level - 132 mg/dL???BUN - 36 mg/dL???Creatinine-Blood - 1.6 mg/dL???Estimated GFR Creatinine - 34 ML/MIN/1.73 M2???Calcium - 9.5 mg/dL BETA HYDROXYBUTYRATE (06/02/2022) ???Beta Hydroxybutyrate - 0.07 mmol/L Bilirubin Total + Direct (06/03/2022) ???Bilirubin, Total - 0.3 mg/dL???Bilirubin, Direct - 0.2 mg/dL???Bilirubin, Indirect - 0.1 mg/dL BUN (06/05/2022) ???BUN - 28 mg/dL CALCIUM (06/04/2022) ???Calcium - 8.7 mg/dL CBC w/ Differential (06/03/2022) ???WBC - 5.0 k/mm3???RBC - 3.41 m/mm3???Hgb - 9.2 Gm/dL???Hct - 29.0 %???MCV - 85.0 femtoliters???MCH - 27.0 pg???MCHC - 31.7 g/dL???Platelet Count - 208 k/mm3???RDW-SD - 55.6 femtoliters???MPV - 10.8 femtoliters???Nucleated RBC (Automated) - 0.0 #/100 WBC'S???Abs. NRBC - 0.0 k/mm3???Abs. Neut - 2.9 k/mm3???Abs. Lymph - 1.6 k/mm3???Abs. Perkins - 0.4 k/mm3???Abs. Eo - 0.1 k/mm3???Abs. Baso - 0.0 k/mm3???Neut % - 56.9 %???Lymph % - 32.1 %???Perkins % - 7.6 %???Eos % - 2.8 %???Baso % - 0.4 %???Imm Gran- 0.2 %???Abs. Imm Gran - 0.0 k/mm3 Comprehensive Metabolic Panel (06/01/2022) ???Sodium - 133 mmol/L???Potassium - 5.3 mmol/L???Chloride - 101 mmol/L???Bicarbonate Level - 20 mmol/L???Anion Gap - 12???Glucose Level - 420 mg/dL???BUN - 56 mg/dL???Creatinine-Blood - 1.5 mg/dL???Estimated GFR Creatinine - 36 ML/MIN/1.73 M2???Calcium - 9.2 mg/dL???Protein, Total - 6.4 Gm/dL???Alb umin - 3.4 Gm/dL???AG Ratio - 1.1???Alkaline Phosphatase - 294 units/L???AST (SGOT) - 48 units/L???ALT (SGPT) - 22 units/L???Bilirubin, Total - 0.3 mg/dL COVID-19, RSV, and Flu A/B, Rapid PCR (06/01/2022) ???Influenza A PCR - NEGATIVE???Influenza B PCR - NEGATIVE???RSV PCR - NEGATIVE???COVID-19 PCR Specimen Source - NASAL???COVID-19 PCR Result - NEGATIVE Creatinine (06/05/2022) ???Creatinine-Blood - 1.4 mg/dL???Estimated GFR Creatinine - 39 ML/MIN/1.73 M2 Electrolytes (06/05/2022) ???Sodium - 136 mmol/L???Potassium - 5.1 mmol/L???Chloride - 102 mmol/L???Bicarbonate Level - 23 mmol/L???Anion Gap - 11 GLUCOSE POC (06/05/2022) ???Glucose, POC - 224 mg/dL HEMOGLOBIN A1C (06/02/2022) ???Hemoglobin A1C (Monitoring) - 11.1 % High??Sensitivity??Troponin T (06/01/2022) ???High Sensitivity Troponin (HSTnT) - 14 ng/L HOLD LAVENDER TUBE (06/05/2022) ???Hold Lavender Top - SPECIMEN DISCARDED AFTER 24 HOURS. INR (06/03/2022) ???INR - 1.1???Protime (PT) - 11.3 seconds Lactate Level (06/01/2022) ???Lactate - 0.8 mmol/L LIPASE (06/01/2022) ???Lipase - 31 units/L MAGNESIUM (06/04/2022) ???Magnesium - 2.2 mg/dL Mg Level (06/03/2022) ???Magnesium - 2.1 mg/dL PHOSPHORUS (06/04/2022) ???Phosphorus - 3.1 mg/dL PTT (06/03/2022) ???APTT - 25.2 seconds Troponin T, High Sensitivity (06/02/2022) ???High Sensitivity Troponin (HSTnT) - 14 ng/L TSH with T4 Reflex (Adults Only) (06/01/2022) ???TSH - 2.70 uIU/mL Urinalysis w/hold for Urine Culture (06/01/2022) ???Appear/Color, Urine - LIGHT YELLOW???Specific [place], Urine - 1.012???pH, Urine - 6.0???Albumin, Urine - 1+???Glucose, Urine - 4+???Ketones, Urine - NEGATIVE???Bilirubin, Urine - NEGATIVE???Hemoglobin, Urine - NEGATIVE???Nitrite, Urine - NEGATIVE???Leukocyte, Urine - 3+???Urobilinogen - NORMAL???WBC's, Urine - 35 /HPF???RBC's, Urine - 2 /HPF???Bacteria - HEAVY???Squamous Epith - 4 /HPF???HoldUrine Culture - Testing available 48 hours from time of collection. Allergies (NKA means No Known Allergies) NKA Problems Active Problems??(15) Arthritis?? Asthma?? Brain TIA?? CAD (coronary artery disease)?? Chronic anemia?? Cirrhosis?? CKD (chronic kidney disease)?? Dementia?? Depression?? DM2 (diabetes mellitus, type 2)?? HTN (hypertension)?? Hyperkalemia?? Hyperlipidemia?? Insomnia?? Obese class I?? Education Materials Below is the list of Educational Leaflet Providered with your Discharge Instructions. Diabetes with High Blood Sugar?? Hypoglycemia (Low Blood Sugar)?? High Blood Sugar (Hyperglycemia)?? Understanding Urinary Tract Infections (UTIs)?? Urinary Tract Infections in Women?? Valuables and Belongings I fully understand and agree that [facility] accepts no responsibility for all my personal [...] to send valuables and belongings home. ?? No Valuables/Belongings: No valuables/belongings present Review of Valuable and Belonging List: With patient, With witness Date for Pt to Sign Valuables/Belongings: 06/04/22 08:40:00 ?? Other Discharge Information ? Case Management Discharge Plan?? Discharge Plan?? Discharge Agency Information?? Discharge Level of Care at Discharge: Homehealth/VNA Name of Agency #1: [facility] Discharge VNA/Hospice/Home Care: [facility] Case Management Social Worker #1: intake ?? Service Categories #1: Physical Therapy, Assisted ?? Service Comments #1: Patient is active with [facility]. VNA will resume services upon discharge; if you dont hear from them please call them directly. ?? Pulmonary Rehab Status?? Pulmonary Rehab Discharge Status?? Respiratory Rate: 18 br/min ? Common Emergency Awareness Tips IS IT [...] are strongly encouraged to quit. Please call [facility] [employer] [facility] at [phone] or [phone] ([phone]) or log in to [email or web address] for referrals to smoking cessation programs. ?? The National Suicide Prevention Hotline is available 24/11 if you or someone you know needs to find a reason to keep living. By calling 8-506-555-[employer] (8036) you'll be connected to a skilled, trained counselor at a crisis center in your area. INPATIENT DISCHARGE INSTRUCTIONS SIGNATURE HANNAH MELO Location:[facility] Registration Date and Time:06/03/2022 15:34 EST Primary Care Physician: Heber FRANKLIN, [facility], I HANNAH GILBERT, have received the above patient education materials/instructions and have verbalized understanding. If ambulance or transport services are being used I further acknowledge being givena choice of service. ?? If you need to contact me, please call me at this number: . Patient/Dredge Captain Name: Patient/Dredge Captain Signature: Relationship to Patient: Witness Name/Signature: Date: * Brenda Anguiano RN: PERFORM Event Display: Patient Education Leaflets Authored Date: [id number] Diabetes with High Blood Sugar ?? [id number] Diabetes con alto nivel de az??car en la dipak Usted recibi?? tratamiento por tener un nivel alto de az??car en la dipak (hiperglucemia). Chamizal puede deberse a cristobal infecci??n u otra [...] antes del desayuno. Tambi??n antes de la jorge. Si recibe insulina, tambi??n anote la dosis [...] sistema de control continuo de la glucosa. Chamizal es para ayudar a que usted y [...] el tratamiento que le indic?? el proveedor. Chamizal sucede especialmente si usted adem??s presenta cetonas [...] renee ?? Last Reviewed Date: 2021 ?? [id number] [employer]. Todos los derechos reservados. Esta informaci??n no pretende sustituir la atenci??n m??dica profesional. S??lo shannon m??dico puede diagnosticar y tratar un problema de domenica. ?? * Silvio ABEL, Brenda Zambrano.: PERFORM Event Display: Patient Education Leaflets Authored Date: [id number] Hypoglycemia (Low Blood Sugar) ?? 67[address] Nivel bajo de az??car en la dipak (hipoglucemia) Un nivel demasiado bajo de az??car (glucosa) en la dipak se llama hipoglucemia. Por lo general, unnivel bajo de az??car en la dipak significa que est?? por debajo de 70??mg/dl. Hable con shannon proveedor de atenci??n m??dica sobre gissel valores normales. Consulte qu?? nivel es demasiado bajo para usted. La diabetes en s?? no causa niveles bajos de az??car en la dipak. Rosa algunos tratamientos parala diabetes podr??an aumentar shannon riesgo. Estos incluyen las pastillas o la insulina. Un nivel bajo de az??car en la dipak puede hacerle perder el conocimiento o provocarle convulsiones. Siempre debetratar los niveles bajos de az??car en la dipak de inmediato. Rosa no coma en exceso. ??Nota especial Lleve siempre cristobal odalys de az??car de acci??n r??pida y un refrigerio en xenia de que tenga hipoglucemia. Por ejemplo, 4??tabletas de glucosa o 1??tubo de gel de glucosa, 1??paquete de az??car o miel, o??2 cucharadas de pasas. ?? Lo que usted puede renee Cuando shannon nivel de az??car est?? demasiado bajo, puede tener kamini o m??s de los siguientes s??ntomas: ??? Temblores o mareos ??? Fr??o, piel pegajosa o sudor ??? Hambre ??? Dolor de vale ??? Nerviosismo ??? Latidos del coraz??n svitlana y r??pidos ??? Debilidad ??? Confusi??n o irritabilidad ??? Visi??n borrosa ??? Tener pesadillas o despertarse confundido o sudando ??? Entumecimiento y cosquilleo en los labios o la lengua ?? Lo que usted debe hacer Estos son algunos consejos de lo que debe hacer si tiene hipoglucemia:? Ante todo, revise shannon nivel de az??car en la dipak. Si est?? demasiado bajo (fuera de los valores normales para usted), coma o eamon de 15 a 20??gramos de az??car de acci??n r??pida. Pueden ser 3 a 4 tabletas de glucosa, 4 onzas (media taza) de jugo de fruta o gaseosa corriente (no de dieta) o 1cucharada de miel. No coma m??s que eso o shannon nivel de az??car en la dipak podr??a elevarse demasiado. ??? No consuma alimentos ricos en prote??lciff adan la leche o los barron secos para tratar la hipoglucemia. Las prote??cliff pueden aumentar shannon respuesta a la insulina. Lo que puede reducir a??n m??ssus niveles de az??car en la dipak. ??? Espere 15??minutos. Luego, si puede, vuelva a medirse el nivel de az??car en la dipak. ??? Si shannon nivel de az??car en la dipak todav??a es muy bajo, repita los pasos anteriores hasta que shannon nivel de az??car en la dipak vuelva a ser normal. ??? Cristobal vez que shannon nivel de az??car en la dipak regrese a gissel valores normales, coma un refrigerio o cristobal comida. Si todav??a no se siente maria e y shannon nivel de az??car en dipak sigue siendo bajo, pida a alguien quele lleve a la consulta de shannon proveedor de atenci??n m??dica o a la marisa de urgencias del hospital. Tambi??n es posible que desee hablar con shannon proveedor para saber si ser??a recomendable que le receten cristobal inyecci??n de glucag??n. Es cristobal hormona que sube r??pidamente el nivel de az??car en la dipak. Puede revertir s??ntomas serios. ?? C??mo prevenir un nivel bajo de az??car Puede hacer las siguientes cosas:? Si shannon afecci??n requiere un plan de tratamiento estricto, coma las comidas y los refrigerios a la misma hora todos los d??as. ??No se salte ninguna comida! ???Si shannon plan de tratamiento le permite cambiar la hora de la comida y los alimentos, aprenda c??mo cambiar la hora y la dosis de la insulina de acci??n r??pida para adaptarlas.? Pregunte a shannon proveedor de atenci??n m??dica si es seguro beber alcohol. Nunca lo carlos con el est??jessica vac??o. ??? [place] siempre gissel medicamentos adan se los recetaron. ??? Lleve siempre con usted cristobal odalys de az??carde acci??n r??pida y un refrigerio cuando est?? lejos de casa. ??? Hable con shannon proveedor de atenci??n m??dica si tuvo varios episodios de hipoglucemia. Pregunte si puede vladimir menos medicamentos. Muchos de los nuevos tipos de pastillas e inyecciones para la diabetes tienen menos riesgo de causar hipoglucemia que algunos medicamentos m??s antiguos. Es posible que tambi??n tenga cristobal afecci??n por la cual ya no puede reconocer los s??ntomas de niveles bajos de az??car en la dipak hasta que el valor baja a niveles peligrosos. ?? Otras cosas que puede hacer Algunos consejos adicionales: ??? Lleve consigo cristobal tarjeta de identificaci??n m??dica de alerta, ouna pulsera o cifuentes de alerta m??dica. Estos elementos deben informar que usted tiene diabetes. Tambi??n debe decir lo que hay que hacer si usted pierde el conocimiento o tiene convulsiones. ??? Aseg??rese de que gissel familiares, amigos y kristina??eros de trabajo conozcan las se??ales de un nivel bajo de az??car. D??afia lo que deben hacer si shannon nivel de az??car baja demasiado y no puede tratarse usted mismo. ??? Mantenga a mano un kit de glucag??n de emergencia. Aseg??rese de que gissel familiares, amigos y kristina??eros de trabajo sepan c??mo y cu??ndo usarlo. Rev??selo regularmente. Reemplace el glucag??n antes de shannon fecha de vencimiento. ??? Hable con shannon equipo de atenci??n m??dica sobre otras medidas para prevenir un nivel bajo de az??car en la dipak. Entre ellas, el uso de nuevas formas de control continuo de la glucosa. ?Importante Si la hipoglucemia se presenta sin causa conocida o varias veces, llame a shannon proveedor de atenci??nm??dica. ?? Last Reviewed Date: 2020 ?? [id number] [employer]. Todos los derechos reservados. Esta informaci??n no pretende sustituir la atenci??n m??dica profesional. S??lo shannon m??dico puede diagnosticar y tratar un problema de domenica. ?? * Silvio ABEL, Brenda Krishnamurthy: PERFORM Event Display: Patient Education Leaflets Authored Date: [id number] High Blood Sugar (Hyperglycemia) ?? 61899 Nivel alto de az??car en la dipak (hiperglucemia) Un nivel demasiado alto de az??car (glucosa) en la dipak se llama hiperglucemia. Puede producir dos afecciones peligrosas llamadas cetoacidosis y coma hiperosmolar hipergluc??adarsh. En casos graves, pueden provocar p??rdida de l??quido (deshidrataci??n) y coma. Consulte a shannon proveedor de atenci??n m??dica qu?? nivel de az??car en la dipak es normal en shannon xenia. Colabore con shannon proveedor de atenci??n m??dica para establecer un plan de tratamiento del nivel alto de az??car en la dipak. Posibles causas del nivel alto de az??car en la dipak ??? Plan de tratamiento de la diabetes deficiente? Enfermedad ??? Estr??s ??? Determinados medicamentos, adan los esteroides ??? Consumo excesivo de comida, especialmente carbohidratos ??? Hacer menos actividad f??francesco de lo normal ??? No vladimir medicamentos suficientes para la diabetes ?? S??ntomas del nivel alto de az??car en la dipak Un nivel alto de az??car en la dipak puede no producir padmini??n s??ntoma. Cuando se presentan, los s??ntomas pueden incluir los siguientes: ??? Sed o sequedad en la boca ??? Necesidad de orinar con m??s frecuencia ??? Cansancio o adormecimiento ??? Malestar estomacal (n??useas) y v??mitos ??? Dolorabdominal (de vientre) ??? Picaz??n o piel reseca ??? Visi??n borrosa ??? Respiraci??n acelerada y aliento con olor a frutas? Debilidad ??? Mareos ??? Heridas o infecciones en la piel que no sanan ??? P??rdida de peso cuya causa no se conoce si el nivel alto de az??car en la dipak dura m??s que unos pocos d??as? Qu?? hacer Si tiene s??ntomas de nivel alto de az??car en la dipak o douglas que puede estar alto, controle el nivel de az??car en la dipak. Si el nivel de az??car es alto, carlos lo siguiente a menos que shannon proveedor le indique lo contrario: ??? Magalia gissel medicamentos para la diabetes seg??n le hayan indicado. Pueden aumentarse ligeramente las dosis de medicamentos adan insulina si el nivel de az??car en la dipak sigue siendo alto. Rosa es shannon proveedor de atenci??n m??dica quien debe aprobarlo. No ajuste las dosis usted mismo. ??? M??dase el nivel de az??car en la dipak con mayor frecuencia o seg??n las indicaciones de shannon proveedor de atenci??n m??dica. ??? Eamon abundante cantidad de l??quidos sin az??car ni cafe??na, adan el agua. No eamon jugo de frutas. ??? Siga shannon plan de medicamentos para d??as de enfermedad. ??? H??gase un examen de cetonas en la dipak o la orina, seg??n las indicaciones del proveedor de atenci??n m??dica. Si tiene cetonas, no carlos ejercicio f??sico. Chamizal puede aumentar el nivel de az??car en la dipak. ??? Llame a shannon proveedor de atenci??n m??dica si shannon nivel de az??car en la dipak y gissel cetonas novuelven a gissel valores normales. Si tiene hiperglucemia, eamon abundante cantidad de agua u otros l??quidos sin az??car ni cafe??na. ?? C??mo prevenir un nivel alto de az??car en la dipak Para evitar que gissel niveles de az??car en la dipak suban demasiado: ??? Controle el estr??s. ??? Si est?? enfermo, siga shannon plan para los d??as de enfermedad.? Siga shannon plan de comidas. Coma solola cantidad de comida que indica shannon plan de comidas. ??? Siga shannon plan de ejercicios. ??? Use shannon insulina o tome gissel medicamentos para la diabetes yaniv adan le haya indicado shannon equipo de atenci??n m??dica. Tambi??n m??dase el nivel de az??car en la dipak seg??n le hayan indicado. Si el plan no le funciona, conv??rselo con shannon proveedor de atenci??n m??dica. ?? Otras cosas que puede hacer ??? Lleve consigo cristobal tarjeta de identificaci??n m??dica o cristobal memoria USB compacta. Tambi??n puede llevar puesto un brazalete o un collar de alerta m??dica. Deben decir que usted tiene diabetes. Tambi??n deben decir lo que hay que hacer si usted pierde el conocimiento oentra en coma. ??? Aseg??rese de que gissel familiares, amigos y kristina??eros de trabajo conozcan las se??ales de un nivel alto de az??car en la dipak. D??afia lo que deben hacer si shannon nivel de az??carsube mucho y no puede tratarse usted mismo. ??? Hable con shannon equipo de atenci??n m??dica sobre otras medidas para prevenir un nivel alto de az??car en la dipak. ?Cu??ndo llamar a shannon proveedor de atenci??n m??dica Llame a shannon proveedor de atenci??n m??dica inmediatamente ante cualquiera de los siguientes s??ntomas: ??? Nivel de az??car en la dipak alto, incluso luego del tratamiento ??? S??ntomas de nivel alto de az??car en la dipak que no mejoran ??? Cantidades moderadas o altas de cetonas ??? Confusi??n ???Falta de aire o respiraci??n acelerada ??? Aliento con olor a frutas ??? V??mitos o imposibilidad para comer o beber ?? Last Reviewed Date: 2021 ?? [id number] [employer]. Todos los derechos reservados. Esta informaci??n no pretende sustituir la atenci??n m??dica profesional. S??lo shannon m??dico puede diagnosticar y tratar un problema de domenica. ?? * [facility] , CIS S: TRANSCRIBE Augusto FRANKLIN, Sam V: VERIFY Event Display: Result: Authored Date: [id number] Chest 2 Views Frontal and Lat Hx of Present Illness: pt coming from home c o back pain, dizzyness, and generalized weakness.; Reason: Other:; Shortness of Breath, Fever; Clinical Question(s): Pneumonia COMPARISON: Multiple prior examinations the most recent dated 03/15/2022. FINDINGS: LINES AND TUBES: None. LUNGS AND PLEURA: Low lung volumes persist. There is a small ill-defined density in the right upper lobe measuring about 2.4 cm in diameter appearing since the prior examination which may represent focal infiltrate and/or mass. In addition there is prominence of the right hilum with the possibility of the presence of a right suprahilar mass. The left lung is clear. Correlation with a chest CT with intravenous contrast administration is advised for further evaluation of these findings. No pleural effusion. No pneumothorax. HEART, MEDIASTINUM AND ZEFERINO: Prominent cardiomediastinal silhouette unchanged. Normal mediastinal and hilar contour. BONES AND SOFT TISSUES: No acute abnormality. Mild supine osteoporosis thoracic spine. IMPRESSION: Poorly defined density in the right upper lobe potentially appearing since the prior examination. ? Prominent right hilum with the possibility of a right suprahilar mass. Correlation with a CT scanof the chest with intravenous contrast administration is advised for further evaluation of these findings. Hypoinflated lungs bilaterally unchanged. Prominent cardiomediastinal silhouette with unchanged. WSN: [id number] Ordering Physician: Mecca Bella Dictated By: Sam Casas MD, V Dictated Date/Time: 06/02/22 8:02 am Reviewed By: Sam Casas MD, V Signed By: Sam Casas MD, V Signed Date/Time: 06/02/22 8:02 am Transcribed By: KEYSHA Transcribed Date/Time: 06/02/22 7:57 am XR Foot - right GE 3 Views * [facility] , CIS S: TRANSCRIRobert Ashby MD: VERIFY Event Display: Result: Authored Date: [id number] Foot Min 3 Views Right, 3 views REASON: Pain; Clinical Question(s): Fracture COMPARISON: Ankle from 10/20/2020 FINDINGS: Bones are demineralized. No acute fracture or dislocation. Old healed fifth metatarsal neck fracture. Mild degenerative change at the fourth MTP joint. Large plantar calcaneus spur. There are atherosclerotic vascular calcifications. IMPRESSION: No evidence of acute osseous abnormality. WSN: [id number] Ordering Physician: Sandeep Carson Dictated By: Robert Pierson MD Dictated Date/Time: 06/02/22 5:12 pm Reviewed By: Robert Pierson MD Signed By: Robert Pierson MD Signed Date/Time: 06/02/22 5:12 pm Transcribed By: KEYSHA Transcribed Date/Time: 06/02/22 5:[address] Head WO contrast * [facility] , CIS S: TRANSCRIBE Jasvir De Luna MD: VERIFY Torsten Guzman MD: SIGN Event Display: Result: Authored Date: [id number] CT Head/Brain W/O Contrast Hx of Present Illness: pt coming from home c o back pain, dizziness, and generalized weakness.; Reason: Other:; dizziness, fatigue; Clinical Question(s): Hematoma. TECHNIQUE: Noncontrast head CT using axial technique and reconstructed in axial and coronal planes.Weight-based protocol using automatic tube modulation was used to optimize exposure parameters. CTDIvol Head: 47.60 mGy, DLP Head: 773 mGy*cm. COMPARISON: CT 03/04/2022, MRI 03/05/2022 FINDINGS: BRAIN and EXTRA-AXIAL SPACES: No parenchymal hemorrhage, midline shift or mass effect. 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 Matthew-white matter differentiation is otherwise well preserved. No acute infarct. Negative insular ribbon sign. Atherosclerotic vascularcalcification of the carotid and vertebral arteries but negative hyperdense vessel sign. Moderate prominence of the ventricles and sulci consistent with parenchymal volume loss. 2202 Mild low-density white matter changes. No subarachnoid hemorrhage, subdural or epidural collections. CALVARIUM, SKULL BASE AND SOFT TISSUES: No fractures or suspicious bony lesions. The paranasal sinuses and mastoid air cells are clear. Visualized orbits and globes are intact. The extracranial soft tissues are unremarkable. IMPRESSION: No acute intracranial abnormality. I have personally reviewed the images and I agree with this report. WSN: [id number] Ordering Physician: Mecca Bella Dictated By: Torsten Guzman MD Dictated Date/Time: 06/01/22 9:52 pm Reviewed By: Jasvir De Luna MD Signed By: Jasvir De Luna MD Signed Date/Time: 06/01/22 9:57 pm Transcribed By: KEYSHA Transcribed Date/Time: 06/01/22 9:[address] Abdomen and Pelvis W contrast IV * [facility] , CIS S: TRANSCRIBE Jasvir De Luna MD: VERIFY Farhat Dennis DO: SIGN Event Display: Result: Authored Date: [id number] CT Abd/Pelvis W/ IV Contrast Only REASON: diffuse abdominal pain, nausea, dysuria, fatigue Hx of Present Illness: pt coming from home c o back pain, dizziness, and generalized weakness.; TECHNIQUE: Spiral CT through the abdomen and pelvis with IV contrast formatted in 3 planes. 100 cc of Omnipaque 300 was administered intravenously. This study was performed without oral contrast. Weight-based protocol using automatic tube modulation was used to optimize exposure parameters. CTDIvol Body: 17.02 mGy, DLP Body: 876 mGy*cm. COMPARISON: CT pelvis 12/03/2021. CT abdomen and pelvis 06/03/2021. FINDINGS: Resource Teacher View Findings, Lines and Tubes: None. Visualized Chest: Minimal interstitial thickening in the lung bases. No pleural effusion. The heartis normal in size. No pericardial effusion. Diaphragm: Normal. Liver: Cirrhotic morphology. No suspicious lesions. Gallbladder: Absent consistent with prior cholecystectomy. Bile ducts: Mild central hepatic ductal dilatation, likely related to post cholecystectomy state. Spleen: Normal. Pancreas: Normal. Adrenal glands: Normal. Kidneys and ureters: Multifocal cortical scarring and atrophy of the right kidney and bilateral lobations. Nonobstructing stones measuring up to 3 mm in the right kidney. No hydronephrosis, or suspicious masses. Simple appearing renal cysts are noted, requiring no dedicated follow up. Bladder: Normal. Reproductive organs: Unremarkable. Stomach, small bowel, and large bowel: Small type I hiatal hernia. Small bowel loops are nondilated, no evidence of obstruction. Mild clonic diverticulosis. Tiny portion of cecum protrudes through a small right abdominal wall ventral hernia along the right aspect of a prior hernia mesh repair. Appendix: Not seen, but no evidence of appendicitis. Peritoneum and retroperitoneum: No ascites or pneumoperitoneum. No omental or mesenteric lesions. Lymph nodes: No enlarged lymph nodes. Blood vessels: Severe atherosclerotic vascular calcification but no aneurysm. No evidence of venousthrombosis. Abdominal and pelvic wall: Tiny right anterior abdominal ventral hernia contains a tiny portion of cecum. Bones: Severe compression deformity of T12 and L4 are unchanged. IMPRESSION: No acute inflammatory process in the abdomen and pelvis. No evidence of bowel obstruction. Tiny ventral hernia in the right lower quadrant contains a tiny portion of cecum although appears nonobstructed. Cirrhotic liver is unchanged. Few nonobstructing right-sided renal stones. Extensive right renal scarring and atrophy. I have personally reviewed the images and I agree with this report. WSN: [id number] Ordering Physician: Mecca Bella Dictated By: Farhat Dennis DO Dictated Date/Time: 06/01/22 11:29 p Reviewed By: Jasvir De Luna MD Signed By: Jasvir De Luna MD Signed Date/Time: 06/01/22 11:34 pm Transcribed By: KEYSHA Transcribed Date/Time: 06/01/22 11:[address] Chest W contrast IV * [facility] , CIS S: TRANSCRIBE Michelle Lobato MD R: VERIFY Event Display: Result: Authored Date: [id number] CT Chest W/ Contrast INDICATION: Reason: Undiagnosed Mass Nodule; Clinical Question(s): Carcinoma; Order Comment: TECHNIQUE: Helical CT scan of the chest with IV contrast, formatted in 3 planes. 100 cc of Omnipaque 300 was administered intravenously. Weight-based protocol was performed using automatic exposure control. CTDIvol Body: 9.23 mGy, DLP Body: 305 mGy*cm. COMPARISON: 03/04/2022 CT chest without contrast. 06/01/2022 CT abdomen pelvis. FINDINGS: Resource Teacher view findings, lines and tubes: None. Trachea and airways: Patent without evidence of tracheal or endobronchial lesion. Lungs and pleura: Low lung volumes with lung base crowding. Unchanged focus of tree-in-bud nodularity in the peripheral posterior RIGHT upper lobe, largest component measuring 0.7 cm. Small foci of tree-in-bud opacities in the lateral and medial RIGHT middle lobe are stable. Additional scattered 1-3 mm nodules are stable. No effusion or pneumothorax. No new airspace consolidation. No new or enlarging pulmonary nodules. Mediastinum and zeferino: No mass or hematoma. No mediastinal or hilar lymphadenopathy. No esophageal abnormality. Heart: Heart is normal in size. No pericardial effusion. Severe coronary artery calcification. Mitral and aortic annular calcifications noted. Aorta: No aortic aneurysm. Mild to moderate degree of atherosclerotic calcification of the thoracicaorta. Pulmonary arteries: Normal caliber. No evidence of pulmonary embolism on this study performed without angiographic technique. Chest wall soft tissues: No acute abnormality. Diaphragm: Normal. Upper abdomen: Multifocal renal cortical scarring, atrophic RIGHT kidney, several nonobstructing renal calculi and renal hilar vascular calcifications. Simple appearing cysts within the RIGHT kidney.Cirrhotic appearance of the liver which is macronodular. Cholecystectomy clips in the gallbladder fossa. Bones: No acute abnormality. No suspicious bone lesion. Severe T12 compression fracture deformity, stable compared with 03/04/2022. Several mild chronic LEFT lateral rib deformities. IMPRESSION: No interval change compared with 03/04/2022. Tree-in-bud nodularity in the posterior RIGHT upper lobe is stable, largest component measuring 7 mm. Tiny regions of tree-in-bud opacities in the medial and lateral RIGHT middle lobe are stable. Stable additional scattered 1-3 mm pulmonary nodules. No new or enlarging pulmonary nodules. Stable upper abdominal findings: Cirrhotic liver, multifocal renal cortical scarring, RIGHT renal atrophy. WSN: [id number] Ordering Physician: Marily Mello Dictated By: Michelle Lobato MD Dictated Date/Time: 06/05/22 11:05 a Reviewed By: Michelle Lobato MD Signed By: Michelle Lobato MD Signed Date/Time: 06/05/22 11:05 am Transcribed By: KEYSHA Transcribed Date/Time: 06/05/22 10:42 am Patient Care team information Care Team Personnel Name: Aster Pena RN Position: [facility] RN Member Role: Primary Care Nurse Name: Dunia Phillip RN Position: [facility] RN Member Role: Primary Care Nurse Name: Alon Gonzalez RN Position: [facility] RN Member Role: Primary Care Nurse Name: Lisette Trejo RN Position: [facility] RN Member Role: Primary Care Nurse Name: Jessica Canseco RN Position: [facility] RN Member Role: Primary Care Nurse Name: Erica Archer RN Position: [facility] RN Supyosvany Member Role: Primary Care Nurse Name: Vickie Lyons Position: [facility] Outreach Member Role: [employer] [...] Care Nurse Name: Britney Henao RN Position: [facility] RN Member Role: Primary Care Nurse Name: Kathy Buck MD Position: [facility] Outreach Member Role: PCP Address: Address: [address] [place] [id number] Name: Blayne Hughes RN Position: [facility] RN Member Role: Primary Care Nurse Name: Norma Art RN Position: [facility] RN Member Role: Primary Care Nurse Name: Mecca Boyd RN Position: [facility] RN Member Role: Primary Care Nurse Name: Katie Evans RN Position: [facility] RN Member Role: Primary Care Nurse Name: Leonor Mccormick RN Position: [facility] RN Member Role: Primary Care Nurse Name: Ayde Morris RN Position: [facility] RN Member Role: Primary Care Nurse Name: Shauna Angela RN Position: [facility] RN Member Role: Primary Care Nurse Name: Trini Starr RN Position: [facility] RN Member Role: Primary Care Nurse Name: Susie Monson RN Position: [facility] RN Member Role: Primary Care Nurse Name: Meena Castro RN Position: [facility] RN Member Role: Primary Care Nurse Name: Wm NAVA Attending Position: [facility] ED Medicine MD Name: Catherine Guerrero Position: [facility] ED TA [facility] Member Role: Patient Care Provider Name: Marisabel Whitlock RN Position: [facility] ED RN W/OE and Tasks Member Role: Patient Care Provider Name: Toyin Friedman Position: [facility] ED TA [facility] Member Role: Patient Care Provider Name: Consuelo Fuentes RN Position: [facility] ED RN W/OE and Tasks Member Role: Patient Care Provider Care Team Related Persons Name: AYDE TALBERT Address: [place] [address] Name: CAMRON VELASQUEZ Address: [place] [address] Name: ANTIONE SETHI Address: home [address] [place] [address]
--- OUTSIDE RECORDS SUMMARY | 2023-03-19 20:04 | XMS_ITS | Continuity of Care Document ---
Author Name Unknown Organization [facility] ter Address [address] [place] [address]- Care Team Providers Care Baby Registry Sales Consultant Name Role Phone Giuliano FRANKLIN, Luis Fernando Haines Primary Care Physician [id number] Date(s): 10/29/19 - 10/31/[address] [address]- [facility] Discharge Disposition: A-D/C Home Attending Physician: Josue Moss MD Admitting Physician: Constantine Guadalupe MD Referring Physician: Not on Staff, Referring [...] 07/28/19 10:09:00 EDT, Route to Pharmacy Electronically, [facility], may convert to 90daysat patient request, 127, cm, 07/22/19 11:16:00 EDT,... Start Date: 07/28/19 Status: Ordered ferrous fumarate 300 mg oral tablet 1 tablet = 300 mg, By Mouth, Daily, # 30 tablet, 0 Refills, Maintenance, 10/05/19 15:29:00 EDT, Tablet, [facility]/pharmacy #[id number], 144.78, cm, 10/05/19 14:50:00 [...] 0 Refills, Maintenance, 10/05/19 15:24:00 EDT, Nasal [place], [facility]/pharmacy #[id number], 1 sprays Nares, Both 2 times a day, 144.78, cm, 10/05/19 14:50:00 EDT, Height, 89.5, kg, 10/01/19 20:04:00 EDT, Dry... Start Date: 10/05/19 Status: Ordered insulin glargine 100 u/ml subcutaneous solution = 20 units, Subcutaneous Injection, Daily at bedtime, # 10 mL, 0 Refills, Maintenance, 10/05/19 15:24:00 EDT, Injection, [facility]/pharmacy #[id number], 144.78, cm, 10/05/19 14:50:00 [...] 15:25:00 EDT, Route to Pharmacy Electronically, [facility]/pharmacy #[id number], 144.78, cm, 10/05/19 14:50:00 EDT, Height, 89.5, kg, 10/01/19 20:04:00 EDT,... Start Date: 10/05/19 Stop Date: 10/26/19 Status: Ordered metoprolol 25 mg oral tablet 12.5 mg, 0.5, tablet, By Mouth, Daily, # 15 tablet, Refills 11, Tot. Refills 11, Maintenance, 07/28/19 10:09:00 EDT, Route to Pharmacy Electronically, [facility], may convert to 90 days at patient request, 127, cm, 07/22/19 11:16:0... Start Date: 07/28/19 Stop Date: 07/22/20 Status: Ordered Norvasc 2.5 mg oral tablet 2.5 mg, 1, tablet, By Mouth, Daily, # 30 tablet, Refills 11, Tot. Refills 11, Maintenance, 07/27/2009:09:00 EDT, Route to Pharmacy Electronically, [facility], y convert to 90 days at patient request, 127, cm, 07/22/19 11:16:00 EDT... Start Date: 07/28/19 Status: Ordered Reglan 5 mg oral tablet 1 tablet = 5 mg, By Mouth, 4 times a day, PRN Nausea & Vomiting, # 120 tablet, 3 Refills, Acute07/27/20 10:11:00 EDT, 07/28/19 10:09:00 EDT, Tablet, [facility], 127, cm, 07/22/19 11:16:00 EDT, [...] 11 Refills, Maintenance, 07/28/19 10:09:00 EDT, Tablet, [facility], may convert to 90 days [...] oldest [Reference Range]: 1 2 3 Height 145 cm (10/31/19 11:22 AM) 145 cm (10/31/19 8:00 AM) 145 cm (10/30/19 4:59 PM) Weight 80.9 kg (10/29/19 10:40 PM) 90 kg (10/29/19 10:26 PM) Oxygen Saturation [94-100 %] 100 % (10/31/19 11:22 AM) 100 % (10/31/19 8:00 AM) 100 % (10/31/19 3:00 AM) Pulse Rate [55-90 bpm] 49 bpm *L* (10/31/19 11:22 AM) 60 bpm (10/31/19 9:07 AM) 60 bpm (10/31/19 8:00 AM) Body Mass Index [18.5-24.99] 38.48 *>HHI* (10/29/19 10:40 PM) Blood Pressure [90-138/55-84 mm Hg] 110/32mm Hg (10/31/19 11:22 AM) 110/32mm Hg (10/31/19 11:18 AM) 121/71mm Hg (10/31/19 9:08 AM) Respiratory Rate [16-30 br/min] 18 br/min (10/31/19 11:22 AM) 20 br/min (10/31/19 8:00 AM) 18 br/min (10/31/19 3:00 AM) Temperature [96.8-100.4 DegF] 97.9 DegF (10/31/19 11:22 AM) 97.8 DegF (10/31/19 8:00 AM) 98.4 DegF (10/31/19 3:00 AM) Mode of Delivery (Oxygen) Room air (10/31/19 11:22 AM) Room air (10/31/19 8:00 AM) Room air (10/31/19 3:00 AM) Blood pressure sites Arm, left (10/31/19 11:22 AM) Arm, right (10/31/19 8:00 AM) Arm, left (10/31/19 3:00 AM) Temperature Route Oral (10/31/19 11:22 AM) Oral (10/31/19 8:00 AM) Oral (10/31/19 3:00 AM) Dry Weight 79.5 kg (10/29/19 10:40 PM) Weight Obtained Via Bed scale (10/29/19 10:40 PM) Bed scale (10/29/19 10:26 PM) Dry Weight Obtained Via Patient/family s tated (10/29/19 10:40 PM) Social History Social History Type Response Smoking Status Never (less than 100 in lifetime) entered on: 07/22/19 Sex
--- OUTSIDE RECORDS SUMMARY | 2023-03-19 20:04 | XMS_ITS | Continuity of Care Document ---
Author Name Unknown Organization [facility] Address [address] [place] [address]- Care Team Providers Care Attorney Name Role Phone Kathy Buck MD Primary Care Physician Encounter [facility] [place] Date(s): 04/23/22 - 05/23/22 [facility] [address] [place] [address]- [place] Allergies, Adverse Reactions, Alerts No Known [...] Refills, Maintenance, 10/05/19 15:29:00 EDT, Tablet, [facility]/pharmacy #[id number], 144.78, cm, 10/05/19 14:50:00 EDT, Height, 89.5, kg, 10/01/19 20:04:00 EDT,Dry Weight Start Date: 10/05/19 Stop Date: 11/04/19 Status: Ordered fluticasone 50 mcg/inh nasal spray 1 sprays, Nares, Both, 2 times a day, # 16 Gm, 0 Refills, Maintenance, 12/01/20 4:52:00 EDT, [place],Partial fill upon patient request if the prescription is for a schedule II opioid drug. Start Date: 12/01/20 Status: Ordered insulin glargine 100 units/mL subcutaneous solution = 15 units, Subcutaneous Injection, Daily in AM, # 3.6 mL, 0 Refills, Maintenance, 03/08/22 13:57:00 EDT, Injection, [facility], Partial fill upon patient request [...] Refills, Maintenance, 06/14/21 8:50:00 EST, Capsule, [facility]/pharmacy #[id number], Partial fill upon patient [...] conctact office for apt. for further refills [phone], #30 tablet, Refills 1, Tot. Refills 1, Maintenance, 08/03/20 11:28:00 EDT, Route to Pharmacy Electronically, [facility], y convert t... Start [...] conctact office for apt. for further refills [phone], # 60 tablet, 1 Refills, Maintenance, 08/03/20 11:29:00 EDT, Tablet, [facility], may convert to 90 [...] 04/23/22 9:58:00 EST, Route to Pharmacy Electronically, [facility], Partial fill upon patient request if t... Start Date: 04/23/22 Stop Date: 10/20/22 Status: Ordered ursodiol 300 mg oral capsule 300 mg, 1, capsule, By Mouth, 3 times a day, # 90 capsule, Refills 5, Tot. Refills 5, Maintenance, 10/20/22 9:58:00 EDT, Route to Pharmacy Electronically, [facility]/pharmacy #[id number], Partial fill upon patient request if the prescription is for a schedule II o... Start Date: 10/20/22 Stop Date: 04/18/23 Status: Ordered ursodiol 400 mg oral capsule 1 capsule = 400 mg, By Mouth, 2 times a day, # 180 capsule, 3 Refills, Maintenance, 04/23/22 7:22:00 EST, [facility], Partial fill upon patient request [...] Team Personnel Name: Aster Pena RN Position: [facility] RN Member Role: Primary Care Nurse Name: Dunia Phillip RN Position: [facility] RN Member Role: Primary Care Nurse Name: Alon Gonzalez RN Position: [facility] RN Member Role: Primary Care Nurse Name: Jessica Canseco RN Position: [facility] RN Member Role: Primary Care Nurse Name: Erica Archer RN Position: [facility] RN Supv Member Role: Primary Care Nurse Name: Vickie Lyons Position: [facility] Outreach Member Role: Lifetime Consulting Physician Name: Martine Carr RN Position: [facility] RN Member Role: Primary Care Nurse Name: Indira Monsalve RN Position: [facility] RN Member Role: Primary Care Nurse Name: Loren Mcmanus RN Position: [facility] RN Member Role: Primary Care Nurse Name: Marisela Lobo LPN Position: [facility] RN Member Role: Primary Care Nurse Name: Mp Zarco RN Position: [facility] RN Member Role: Primary Care Nurse Name: Britney Henao RN Position: S RN Member Role: Primary Care Nurse Name: Kathy Buck MD Position: [facility] Outreach Member Role: PCP Address: Address: [address] [place] [id number] Name: Blayne Hughes RN Position: [facility] RN Member Role: Primary Care Nurse Name: Norma Art RN Position: [facility] RN Member Role: Primary Care Nurse Name: Mecca Boyd RN Position: [facility] RN Member Role: Primary Care Nurse Name: Katie Evans RN Position: [facility] RN Member Role: Primary Care Nurse Name: Leonor Mccormick RN Position: [facility] RN Member Role: Primary Care Nurse Name: Paige Morris RN Position: [facility] RN Member Role: Primary Care Nurse Name: Shauna Angela RN Position: [facility] RN Member Role: Primary Care Nurse Name: Trini Starr RN Position: [facility] RN Member Role: Primary Care Nurse Name: Susie Monson RN Position: [facility] RN Member Role: Primary Care Nurse Name: Meena Castro RN Position: [facility] RN Member Role: Primary Care Nurse Care Team Related Persons Name: NITISHPAIGE Address: [place] [address] Name: CAMRON VELASQUEZ Address: [place] [address] Name: ANTIONE SETHI Address: home [address] [place] [address]
--- OUTSIDE RECORDS SUMMARY | 2023-03-19 20:04 | XMS_ITS | Continuity of Care Document ---
Author Name Unknown Organization [facility] ter Address [address] [place] [id number]- Care Team Providers Care Manager Operations And Procurement Name Role Phone Luis Fernando Nobles MD Primary Care Physician Encounter [facility] [place] Date(s): 05/08/19 - 05/09/[address] [address]- [facility] Discharge Disposition: A-D/C Home Attending Physician: Sandeep Domínguez MD Admitting Physician: Sandeep Domínguez MD Referring Physician: Not on Staff, Referring [...] DAY NEEDED Start Date: 12/15/18 Status: Ordered cephalexin monohydrate 500 mg oral capsule 1 capsule = 500 mg, By Mouth, 2 times a day, for 7 days, # 14 capsule, 0 Refills, Acute 05/16/19 9:49:00 EST, 05/09/19 9:49:00 EST, Capsule, [facility], 149, cm, 02/17/19 11:17:00 EDT, Height, 99.2, kg, 02/15/19 22:30:00 EDT, Dry Weight Start Date: 1/6/20 Stop Date: 05/16/19 Status: Ordered Docusate Sodium 100 Mg Softgel [...] OPERATED EYE 2X/DAY X4 WEEKS. BRING TO DRKatey OFFICE DAY AFTER SURGERY Start Date: 12/15/18 [...] Start Date: 02/17/19 Status: Ordered nystatin topical [id number] u/gm powder 1 application, Topically, 3 times [...] EDT, Compound Start Date: 02/17/19 Status: Ordered Results Orders for Microbiology Reports Name Date Urine Culture (URINE CULTURE) 05/08/19 Microbiology Reports TEST:Urine Culture STATUS:Unauthenticated BODY SITE: SOURCE:URINE COLLECTED DATE/TIME:05/08/19 10:10 PM Urine Culture SPECIMEN DESCRIPTION : URINE CLEAN CATCH/MIDSTREAM SPECIAL REQUESTS : NONE Reflexed from [id number] REPORT STATUS : PRELIMINARY REPORT Radiology Reports * Exam Date Time Procedure Performing Provider Status 05/09/19 5:32 AM Chest 2 Views Frontal and Lat Chrissy Medina; Auth (Verified) Notes: (Chest 2 Views Frontal and Lat) Reason For Exam: Shortness of Breath, Fever;Other: RESULT: Chest 2 Views Frontal and Lat Chest 2 Views Frontal and Lat Reason: Shortness of Breath, Fever; Clinical Question(s): Pneumonia; Hx of Present Illness: : flu like sxs x 1 month c o bodyaches raza also urine darkish seen by pmd on 1 2 did urine but doesn't know results also with lt sided abd pain for years / Pneumonia COMPARISON: 02/15/2019 FINDINGS: LINES AND TUBES: None. LUNGS AND PLEURA: Low lung volumes with mild basilar atelectasis. Lungs are otherwise clear with no definite consolidation. No pleural effusion. No pneumothorax. HEART, MEDIASTINUM AND ANIKET: Heart is normal in size. Aorta is mildly calcified. BONES AND SOFT TISSUES: No acute abnormality. There are surgical clips in the right upper quadrant. IMPRESSION: No evidence of acute abnormality. WSN: [id number] Dictated By: Robert Pierson MD Dictated Date/Time: 05/09/19 7:53 am Reviewed By: Robert Pierson MD Signed By: Robert Pierson MD Signed Date/Time: 05/09/19 7:53 am Transcribed By: KEYSHA Transcribed Date/Time: 05/09/19 7:51 am Vital Signs Most recent to oldest [Reference Range]: 1 2 3 Oxygen Saturation [94-100 %] 100 % (05/08/19 11:44 PM) 100 % (05/08/19 7:47 PM) 100 % (05/08/19 5:35 PM) Pulse Rate [55-90 bpm] 75 bpm (05/08/19 11:44 PM) 73 bpm (05/08/19 7:47 PM) 63 bpm (05/08/19 5:35 PM) Blood Pressure [90-138/55-84 mm Hg] 108/82mm Hg (05/08/19 11:44 PM) 108/80mm Hg (05/08/19 7:49 PM) 113/69mm Hg (05/08/19 5:35 PM) Respiratory Rate [16-30 br/min] 20 br/min (05/08/19 11:44 PM) 16 br/min (05/08/19 7:47 PM) 16 br/min (05/08/19 5:35 PM) Temperature [96.8-100.4 DegF] 98.1 DegF (05/08/19 11:44 PM) 98.6 DegF (05/08/19 7:47 PM) 98.3 DegF (05/08/19 5:35 PM) Mode of Delivery (Oxygen) Room air (05/08/19 11:44 PM) Room air (05/08/19 7:47 PM) Room air (05/08/19 5:35 PM) Blood pressure sites Arm, right (05/08/19 11:44 PM) Arm, right (05/08/19 7:49 PM) Arm, right (05/08/19 7:47 PM) Temperature Route Oral (05/08/19 11:44 PM) Oral (05/08/19 7:47 PM) Oral (05/08/19 5:35 PM)
--- OUTSIDE RECORDS SUMMARY | 2023-03-19 20:04 | XMS_ITS | Continuity of Care Document ---
Author Name Unknown Organization [facility] Address [address] [place] [address]- Care Team Providers Care Head Of Sales Name Role Phone Kathy Buck MD Primary Care Physician Encounter [facility] [id number] Date(s): 04/01/22 - 06/07/22 [facility] [address] [place] [address]- Attending Physician: Scott Nagy MD Admitting Physician: Scott Nagy MD Referring Physician: Kathy Buck MD Allergies, Adverse Reactions, Alerts No Known Allergies Immunizations Given and Recorded Vaccine Date Status Refusal Reason SARS-CoV-2 mRNA (alinmic-gvmm-cdjnu) vax 07/09/21 Recorded SARS-CoV-2 (COVID-19) Ad26 vaccine [...] Refills, Maintenance, 10/05/19 15:29:00 EDT, Tablet, [facility]/pharmacy #[id number], 144.78, cm, 10/05/19 14:50:00 EDT, Height, 89.5, kg, 10/01/19 20:04:00 EDT,Dry Weight Start Date: 10/05/19 Stop Date: 11/04/19 Status: Ordered fluticasone 50 mcg/inh nasal spray 1 sprays, Nares, Both, 2 times a day, # 16 Gm, 0 Refills, Maintenance, 12/01/20 4:52:00 EDT, [place],Partial fill upon patient request if the prescription is for a schedule II opioid drug. Start Date: 12/01/20 Status: Ordered insulin glargine 100 units/mL subcutaneous solution = 15 units, Subcutaneous Injection, Daily in AM, # 3.6 mL, 0 Refills, Maintenance, 03/08/22 13:57:00 EDT, Injection, [facility], Partial fill upon patient request [...] 5 Refills, Maintenance, 06/14/21 8:50:00 EST, Capsule, [facility]/pharmacy #[id number], Partial fill upon patient request if [...] conctact office for apt. for further refills [phone], #30 tablet, Refills 1, Tot. Refills 1, Maintenance, 08/03/20 11:28:00 EDT, Route to Pharmacy Electronically, [facility], y convert t... Start [...] 10/20/22 9:58:00 EDT, Route to Pharmacy Electronically, [facility]/pharmacy #[id number], Partial fill upon patient request if the [...] Team Personnel Name: Aster Pena RN Position: [facility] RN Member Role: Primary Care Nurse Name: Dunia Phillip RN Position: [facility] RN Member Role: Primary Care Nurse Name: Alon Gonzalez RN Position: [facility] RN Member Role: Primary Care Nurse Name: Lisette Trejo RN Position: [facility] RN Member Role: Primary Care Nurse Name: Jessica Canseco RN Position: [facility] RN Member Role: Primary Care Nurse Name: Erica Archer RN Position: [facility] RN Supv Member Role: Primary Care Nurse Name: Vickie Lyons Position: [facility] Outreach Member Role: Lifetime Consulting Physician Name: Martine Carr RN Position: [facility] RN Member Role: Primary Care Nurse Name: Indira Monsalve RN Position: [facility] RN Member Role: Primary Care Nurse Name: Loren Mcmanus RN Position: [facility] RN Member Role: Primary Care Nurse Name: Marisela Lobo LPN Position: [facility] RN Member Role: Primary Care Nurse Name: Mp Zarco RN Position: [facility] RN Member Role: Primary Care Nurse Name: Britney Henao RN Position: [facility] RN Member Role: Primary Care Nurse Name: Kathy Buck MD Position: [facility] Outreach Member Role: PCP Address: Address: [address] [place] [address] Name: Blayne Hughes RN Position: [facility] RN Member Role: Primary Care Nurse Name: Norma Art RN Position: [facility] RN Member Role: Primary Care Nurse Name: Mecca Boyd RN Position: [facility] RN Member Role: Primary Care Nurse Name: Katie Evans RN Position: [facility] RN Member Role: Primary Care Nurse Name: Leonor Mccormick RN Position: [facility] RN Member Role: Primary Care Nurse Name: Paige Morris RN Position: [facility] RN Member Role: Primary Care Nurse Name: Shauna Angela RN Position: [facility] RN Member Role: Primary Care Nurse Name: Trini Starr RN Position: [facility] RN Member Role: Primary Care Nurse Name: Susie Monson RN Position: [facility] RN Member Role: Primary Care Nurse Name: Meena Castro RN Position: [facility] RN Member Role: Primary Care Nurse Care Team Related Persons Name: PAIGE TALBERT Address: [place] [address] Name: CAMRON VELASQUEZ Address: [place] [address] Name: ANTIONE SETHI Address: home [address] [place] [address]
--- OUTSIDE RECORDS SUMMARY | 2023-03-19 20:04 | XMS_ITS | Continuity of Care Document ---
Author Name Unknown Organization [facility] ter Address [address] [place] [address]- Care Team Providers Care Planer Feeder Name Role Phone Heber FRANKLIN, Kathy Primary Care Physician [phone] Encounter [facility] Date(s): 12/02/21 - 12/03/[address] [address]- Encounter Diagnosis Fall(Final) - 12/02/21 Discharge Disposition: A-D/C Home Attending Physician: Sheeba FRANKLIN, Uriel Vivar Admitting Physician: Ree Gottlieb MD Referring Physician: [...] Height, 68.... Start Date: 09/26/21 Status: Ordered enalapril 5 mg oral tablet 5 mg, Tablet, By Mouth, 12/03/21 9:00:00 EDT Start Date: 12/03/21 Stop Date: 12/03/21 Status: Completed enalapril 5 mg oral tablet 5 mg, [...] Refills, Maintenance, 10/05/19 15:29:00 EDT, Tablet, [facility]/pharmacy #[id number], 144.78, cm, 10/05/19 14:50:00 EDT, Height, 89.5, kg, 10/01/19 20:04:00 EDT,Dry Weight Start Date: 10/05/19 Stop Date: 11/04/19 Status: Ordered fluticasone 50 mcg/inh nasal spray 1 sprays, Nares, Both, 2 times a day, # 16 Gm, 0 Refills, Maintenance, 12/01/20 4:52:00 EDT, [place],Partial fill upon patient request if the prescription [...] conctact office for apt. for further refills [phone], #30 tablet, Refills 1, Tot. Refills 1, Maintenance, 08/03/20 11:28:00 EDT, Route to Pharmacy Electronically, [facility], y convert t... Start Date: 08/03/20 Status: Ordered Norvasc 5 mg oral tablet 2.5 mg, Tablet, By Mouth, Hold for: bp< 100, 12/03/21 9:00:00 EDT Start Date: 12/03/21 Stop Date: 12/03/21 Status: Completed ondansetron 4 mg oral tablet, [...] conctact office for apt. for further refills [phone], # 60 tablet, 1 Refills, Maintenance, 08/03/20 11:29:00 EDT, Tablet, [facility], may [...] Health Status Inform ant Arthritis(Confirmed) 1 Active Asthma(Confirmed) Active Chronic anemia(Confirmed) Active CKD (chronic kidney disease)(Confirmed) Active Cirrhosis(Confirmed) Active CAD (coronary artery disease)(Confirmed) Active Dementia(Confirmed) Active Depression(Confirmed) Active Hyperlipidemia(Confirmed) Active HTN (hypertension)(Confirmed) Active Insomnia(Confirmed) Active Brain TIA(Confirmed) Active DM2 (diabetes mellitus, type 2)(Confirmed) Active 1hands Results Radiology Reports * Exam Date Time Procedure Performing Provider Status 12/02/21 3:22 PM Elbow Min 3 Views Right Tatiana Jh ew; Auth (Verified) Notes: (Elbow Min 3 Views Right) Reason For Exam: Trauma RESULT: Elbow Min 3 Views Right Examination: Right elbow performed on 12/02/2021. History: Hx of Present Illness: PT arrives via home ,OAx3, pt lives at home with caregiver, pt fellat home, strike head, no LOC, on AC, c o generalized pain, shoulder, lower back, left leeg.; Reason: Trauma; Clinical Question(s): Fracture Findings: Frontal, oblique, and lateral views of the right elbow are submitted. No fractures or dislocations are demonstrated. There is no joint effusion. Impression: There is no acute osseous abnormality. WSN: [id number] Ordering Physician: Edvin Carroll Dictated By: Jessica Gomez MD Dictated Date/Time: 12/02/21 3:37 pm Reviewed By: Jessica Gomez MD Signed By: Jessica Gomez MD Signed Date/Time: 12/02/21 3:37 pm Transcribed By: KEYSHA Transcribed Date/Time: 12/02/21 3:37 pm * Exam Date Time Procedure Performing Provider Status 12/02/21 3:22 PM Shoulder Min 2 Views Right Catia Simpson tthew; Auth (Verified) Notes: (Shoulder Min 2 Views Right) Reason For Exam: Trauma RESULT: Shoulder Min 2 Views Right Shoulder Min 2 Views Right INDICATION: Hx of Present Illness: PT arrives via home ,OAx3, pt lives at home with caregiver, pt fell at home, strike head, no LOC, on AC, c o generalized pain, shoulder, lower back, left leeg.; Reason: Trauma; Clinical Question(s): Fracture COMPARISON: None. FINDINGS: Unremarkable soft tissue. There is no fracture or dislocation. Joint space is maintained. IMPRESSION: No fracture. WSN: [id number] Ordering Physician: Edvin Carroll Dictated By: Patricia Thomas MD Dictated Date/Time: 12/02/21 3:36 pm Reviewed By: Patricia Thomas MD Signed By: Patricia Thomas MD Signed Date/Time: 12/02/21 3:36 pm Transcribed By: KEYSHA Transcribed Date/Time: 12/02/21 3:36 pm * Exam Date Time Procedure Performing Provider Status 12/02/21 3:22 PM Knee 1 or 2 Views Left Yung Simpson; Auth (Verified) Notes: (Knee 1 or 2 Views Left) Reason For Exam: Trauma RESULT: Knee 1 or 2 Views Left Knee 1 or 2 Views Left INDICATION: Hx of Present Illness: PT arrives via home ,OAx3, pt lives at home with caregiver, pt fell at home, strike head, no LOC, on AC, c o generalized pain, shoulder, lower back, left leeg.; Reason: Trauma; Clinical Question(s): Fracture COMPARISON: None. FINDINGS: Advanced vascular calcification. There is no fracture or dislocation. Joint space is maintained. IMPRESSION: No acute finding. WSN: [id number] Ordering Physician: Edvin Carroll Dictated By: Patricia Thomas MD Dictated Date/Time: 12/02/21 3:35 pm Reviewed By: Patricia Thomas MD Signed By: Patricia Thomas MD Signed Date/Time: 12/02/21 3:35 pm Transcribed By: KEYSHA Transcribed Date/Time: 12/02/21 3:35 pm * Exam Date Time Procedure Performing Provider Status 12/02/21 3:22 PM XR Hip w/Pelvis 2-3 View Left Francisco Simpson; Auth (Verified) Notes: (XR Hip w/Pelvis 2-3 View Left) Reason For Exam: Trauma RESULT: XR Hip w/Pelvis 2-3 View Left XR Hip w/Pelvis 2-3 View Left Hx of Present Illness: PT arrives via home ,OAx3, pt lives at home with caregiver, pt fell at home,strike head, no LOC, on AC, c o generalized pain, shoulder, lower back, left leeg.; Reason: Trauma;Clinical Question(s): Fracture COMPARISON: None. FINDINGS: There is no fracture or subluxation. There is mild left hip joint space narrowing, usually degenerative. Advanced vascular calcification. Increased amount of stool in the colon. IMPRESSION: No fracture. WSN: [id number] Ordering Physician: Edvin Carroll Dictated By: Patricia Thomas MD Dictated Date/Time: 12/02/21 3:35 pm Reviewed By: Patricia Thomas MD Signed By: Patricia Thomas MD Signed Date/Time: 12/02/21 3:35 pm Transcribed By: KEYSHA Transcribed Date/Time: 12/02/21 3:33 pm * Exam Date Time Procedure Performing Provider Status 12/02/21 3:22 PM Shoulder Min 2 Views Left Tomás Simpson; Auth (Verified) Notes: (Shoulder Min 2 Views Left) Reason For Exam: Trauma RESULT: Shoulder Min 2 Views Left Shoulder Min 2 Views Left INDICATION: Hx of Present Illness: PT arrives via home ,OAx3, pt lives at home with caregiver, pt fell at home, strike head, no LOC, on AC, c o generalized pain, shoulder, lower back, left leeg.; Reason: Trauma; Clinical Question(s): Fracture COMPARISON: 12/02/2020 FINDINGS: There is separation at the left acromioclavicular joint which appears chronic. There is no acute fracture or subluxation of the left glenohumeral joint. IMPRESSION: Chronic left acromioclavicular joint separation. WSN: [id number] Ordering Physician: Edvin Carroll Dictated By: Patricia Thomas MD Dictated Date/Time: 12/02/21 3:32 pm Reviewed By: Patricia Thomas MD Signed By: Patricia Thomas MD Signed Date/Time: 12/02/21 3:32 pm Transcribed By: KEYSHA Transcribed Date/Time: 12/02/21 3:31 pm * Exam Date Time Procedure Performing Provider Status 12/02/21 3:22 PM Chest 2 Views Frontal and Lat Francisco Simpson; Betty (Verified) Notes: (Chest 2 Views Frontal and Lat) Reason For Exam: Shortness of Breath, Fever;Other: RESULT: Chest 2 Views Frontal and Lat Chest 2 Views Frontal and Lat INDICATION: Hx of Present Illness: PT arrives via home ,OAx3, pt lives at home with caregiver, pt fell at home, strike head, no LOC, on AC, c o generalized pain, shoulder, lower back, left leeg.; Reason: Other:; Shortness of Breath, Fever; Clinical Question(s): Pneumonia COMPARISON: 10/04/2021 FINDINGS: There is no pneumothorax or pleural effusion. Heart size is normal. Mild bibasilar atelectasis. No definite focal infiltrate. There is chronic left acromioclavicular joint separation. IMPRESSION: No acute abnormality. WSN: [id number] Ordering Physician: Edvin Carroll Dictated By: Patricia Thomas MD Dictated Date/Time: 12/02/21 3:33 pm Reviewed By: Patricia Thomas MD Signed By: Patricia Thomas MD Signed Date/Time: 12/02/21 3:33 pm Transcribed By: KEYSHA Transcribed Date/Time: 12/02/21 3:29 pm Vital Signs Most recent to oldest [Reference Range]: 1 2 3 Oxygen Saturation [94-100 %] 100 % (12/03/21 12:00 PM) 100 % (12/03/21 9:18 AM) 100 % (12/03/21 4:55 AM) Pulse Rate [55-90 bpm] 58 bpm (12/03/21 12:00 PM) 63 bpm (12/03/21 9:00 AM) 61 bpm (12/03/21 4:55 AM) Blood Pressure [90-138/55-84 mm Hg] 112/46mm Hg (12/03/21 12:00 PM) 152/64mm Hg *H* (12/03/21 8:25 AM) 152/64mm Hg *H* (12/03/21 8:20 AM) Respiratory Rate [16-30 br/min] 18 br/min (12/03/21 12:00 PM) 18 br/min (12/03/21 9:05 AM) 18 br/min (12/03/21 4:55 AM) Temperature [96.8-100.4 DegF] 98.2 DegF (12/03/21 12:00 PM) 100 DegF (12/03/21 9:18 AM) 98.0 DegF (12/03/21 4:55 AM) Mode of Delivery (Oxygen) Room air (12/03/21 12:00 PM) Room air (12/03/21 9:18 AM) Room air (12/03/21 4:55 AM) Blood pressure sites Arm, left (12/03/21 12:00 PM) Arm, right (12/03/21 4:55 AM) Arm, left (12/02/21 11:59 PM) Temperature Route Oral (12/03/21 12:00 PM) Oral (12/03/21 9:18 AM) Oral (12/03/21 4:55 AM) Social History Social History Type Response Smoking Status Never (less than 100 in lifetime) entered on: 06/27/21 Sex
--- OUTSIDE RECORDS SUMMARY | 2023-03-19 20:04 | XMS_ITS | Continuity of Care Document ---
Author Name Unknown Organization [facility] Address [address] [place] [address]- Care Team Providers Care Electrician Chief Name Role Phone Jennifer Green DO Primary Care Physician [place] [facility] [place] 11[place]03/20 [facility]/[address] [address]- Allergies, Adverse Reactions, Alerts Substance Reaction Severity [...] 10/05/19 15:25:00 EDT, Route to Pharmacy Electronically, [facility]/pharmacy #[id number], 144.78, cm, 10/05/19 14:50:00 EDT, Height, 89.5, kg, 10/01/19 20:04:00 EDT,... Start Date: 10/05/19 Stop Date: 10/26/19 Status: Ordered Metoprolol Tartrate 25 mg oral tablet 0.5 tablet, By Mouth, Daily, CONTACT OFFICE FOR FURTHER REFILLS [phone], # 15 tablet, 0 Refills, Maintenance, 10/26/20 12:04:00 EDT, [id number], 128, cm, 10/02/20 15:05:00 EDT, Height, 62, kg, 09/27/20 0:49:00 EDT, Dry Weight Start Date: 10/26/20 Status: Ordered Norvasc 2.5 mg oral tablet 2.5 mg, 1, tablet, By Mouth, Daily, Please conctact office for apt. for further refills [phone], #30 tablet, Refills 1, Tot. Refills 1, Maintenance, 08/03/20 11:28:00 EDT, Route to Pharmacy Electronically, [facility], y convert t... Start Date: [...] conctact office for apt. for further refills [phone], # 60 tablet, 1 Refills, Maintenance, 08/03/20 11:29:00 EDT, Tablet, [facility], may convert to 90 days [...]
--- OUTSIDE RECORDS SUMMARY | 2023-03-19 20:04 | XMS_ITS | Continuity of Care Document ---
Author Name Unknown Organization [facility] ter Address [address] [place] [address]- Care Team Providers Care Naval Police Coxswain Name Role Phone Heber FRANKLIN, Kathy Primary Care Physician [place] [facility] [place] 06/27/21 - 06/27/[address] [address]- Discharge Disposition: A-D/C Home Attending Physician: Randi [...] 0 Refills, Maintenance, 10/05/19 15:29:00 EDT, Tablet, [facility]/pharmacy #[id number], 144.78, cm, 10/05/19 14:50:00 EDT, Height, 89.5, kg, 10/01/19 20:04:00 EDT,Dry Weight Start Date: 10/05/19 Stop Date: 11/04/19 Status: Ordered fluticasone 50 mcg/inh nasal spray 1 sprays, Nares, Both, 2 times a day, # 16 Gm, 0 Refills, Maintenance, 12/01/20 4:52:00 EDT, [place],Partial fill upon patient request if the prescription [...] conctact office for apt. for further refills [phone], #30 tablet, Refills 1, Tot. Refills 1, [...] conctact office for apt. for further refills [phone], # 60 tablet, 1 Refills, Maintenance, 08/03/20 [...] Exam Date Time Procedure Performing Provider Status 06/27/21 1:04 PM XR Femur 2 Views Left Kaz Paz; Auth (Verified) Notes: (XR Femur 2 Views Left) Reason For Exam: with Pain;Trauma RESULT: Femur 2 Views Left Femur 2 Views Left, 2 views/4 images. Hx of Present Illness: Atraumatic R side back pain x 2 wks worsening and traveling down R leg with mild tingling, worsening with movement and palpation, 7 10.; Reason: Trauma; with Pain; Clinical Question(s): Fracture COMPARISON: None. FINDINGS: No fracture, dislocation or bone lesion. Visualized portions of the joints are normal. Mild vascular calcifications. IMPRESSION: No acute abnormality. WSN: [id number] Ordering Physician: Jennifer Whitten Dictated By: Cristian Jimenez MD Dictated Date/Time: 06/27/21 2:13 pm Reviewed By: Cristian Jimenez MD Signed By: Cristian Jimenez MD Signed Date/Time: 06/27/21 2:13 pm Transcribed By: KEYSHA Transcribed Date/Time: 06/27/21 2:11 pm * Exam Date Time Procedure Performing Provider Status 06/27/21 1:04 PM XR Femur 2 Views Right Kaz Paz ; Auth (Verified) Notes: (XR Femur 2 Views Right) Reason For Exam: with Pain;Trauma RESULT: Femur 2 Views Right Femur 2 Views Right, 4 views Hx of Present Illness: Atraumatic R side back pain x 2 wks worsening and traveling down R leg with mild tingling, worsening with movement and palpation, 7 10.; Reason: Trauma; with Pain; Clinical Question(s): Fracture COMPARISON: None. FINDINGS: No evidence of fracture IMPRESSION: No evidence of fracture WSN: [id number] Ordering Physician: Jennifer Whitten Dictated By: Scottie Donato MD Dictated Date/Time: 06/27/21 1:57 pm Reviewed By: Scottie Donato MD Signed By: Scottie Donato MD Signed Date/Time: 06/27/21 1:57 pm Transcribed By: KEYSHA Transcribed Date/Time: 06/27/21 1:55 pm * Exam Date Time Procedure Performing Provider Status 06/27/21 1:04 PM Chest 2 Views Frontal and Lat Kaz Paz; Auth (Verified) Notes: (Chest 2 Views Frontal and Lat) Reason For Exam: Pain;Other: RESULT: Chest 2 Views Frontal and Lat Chest 2 Views Frontal and Lat Hx of Present Illness: Atraumatic R side back pain x 2 wks worsening and traveling down R leg with mild tingling, worsening with movement and palpation, 7 10.; Reason: Other:; Pain; Clinical Question(s): Other:; Fracture, pneumothorax, pulmonary contusion COMPARISON: 05/02/2021 FINDINGS: LINES AND TUBES: None. LUNGS AND PLEURA: Some increased density seen in the right medial apical area that I believe most likely represent superimposition. CT scan of the thoracic spine was performed on the same day which did not demonstratea pulmonary abnormality. No pleural effusion. No pneumothorax. HEART, MEDIASTINUM AND ANIKET: Heart is normal in size. Normal upper mediastinal and hilar contour. BONES AND SOFT TISSUES: No acute abnormality. IMPRESSION: No acute abnormality. WSN: [id number] Ordering Physician: Jennifer Whitten Dictated By: Osbaldo Lyon MD Dictated Date/Time: 06/27/21 1:56 pm Reviewed By: Osbaldo Lyon MD Signed By: Osbaldo Lyon MD Signed Date/Time: 06/27/21 1:56 pm Transcribed By: KEYSHA Transcribed Date/Time: 06/27/21 1:54 pm Vital Signs Most recent to oldest [Reference Range]: 1 2 3 Oxygen Saturation [94-100 %] 100 % (06/27/21 6:10 PM) 100 % (06/27/21 4:10 PM) 100 % (06/27/21 2:27 PM) Pulse Rate [55-90 bpm] 69 bpm (06/27/21 6:10 PM) 65 bpm (06/27/21 4:10 PM) 64 bpm (06/27/21 2:27 PM) Blood Pressure [90-138/55-84 mm Hg] 150/52mm Hg *H* (06/27/21 6:10 PM) 133/52mm Hg (06/27/21 4:10 PM) 135/53mm Hg (06/27/21 2:27 PM) Respiratory Rate [16-30 br/min] 16 br/min (06/27/21 6:10 PM) 16 br/min (06/27/21 4:10 PM) 16 br/min (06/27/21 2:27 PM) Temperature [96.8-100.4 DegF] 98 DegF (06/27/21 6:10 PM) 97.7 DegF (06/27/21 4:10 PM) 97.6 DegF (06/27/21 9:33 AM) Mode of Delivery (Oxygen) Room air (06/27/21 6:10 PM) Room air (06/27/21 4:10 PM) Room air (06/27/21 2:27 PM) Blood pressure sites Arm, right (06/27/21 6:10 PM) Arm, right (06/27/21 4:10 PM) Arm, right (06/27/21 2:27 PM) Temperature Route Oral (06/27/21 6:10 PM) Oral (06/27/21 9:33 AM) Oral (06/27/21 5:35 AM) Social History Social History Type Response Smoking Status Never (less than 100 in lifetime) entered on: 06/27/21 Sex
--- OUTSIDE RECORDS SUMMARY | 2023-03-19 20:04 | XMS_ITS | Continuity of Care Document ---
Author Name Unknown Organization [facility] ter Address [address] [place] [id number]- Care Team Providers Care Kier Hand Name Role Phone Luis Fernando Nobles MD Primary Care Physician [id number] Date[facility] 07/15/[facility] - 07/15/[address] [address]- [facility] Encounter Diagnosis Constipation(Final) - 07/15/19 Discharge Disposition: A-D/C Home Attending Physician: Kayla [...] tablet, Refills 0, Tot. Refills 0, Maintenance, 07/12/19 9:05:00 EDT, Route to Pharmacy Electronically, [facility] [place], 127, cm, 07/11/19 16:59:00 EDT, Height, 78.8, kg, 07/10/19 10:13:00 EDT... Start Date: 07/12/19 Status: Ordered Humalog Kwik Pen 100 units/mL [...] By Mouth, Daily, # 15 tablet, Refills 0, Tot. Refills 0, Maintenance, 07/11/19 14:58:00 EDT, Route to Pharmacy Electronically, [facility], 127, cm, 07/11/19 14:39:00 EDT, Height, 78.8, kg, 07/10/19 10:13:00 EDT, Dry... Start Date: 07/11/19 Status: Ordered Norvasc 2.5 mg oral tablet 2.5 mg, 1, tablet, By Mouth, Daily, # 30 tablet, Refills 0, Tot. Refills 0, Maintenance, 07/11/19 15:07:00 EDT, Route to Pharmacy Electronically, [facility] 3, 127, cm, 07/11/19 14:39:00 EDT, Height, 78.8, kg, 07/10/19 10:13:00 EDT, Dry We... Start Date: 07/11/19 Status: Ordered nystatin topical 885739 u/gm powder 1 application, Topically, 3 times [...] BEDTIME NEEDED Start Date: 12/15/18 Status: Ordered sertraline 25 mg oral tablet 1 tablet = 25 mg, By Mouth, Daily in AM, # 30 tablet, 0 Refills, Maintenance, 07/11/19 15:08:00 EDT, Tablet, [facility], 127, cm, 07/11/19 14:39:00 EDT, Height, 78.8, kg, 07/10/19 10:13:00 EDT, Dry Weight Start Date: 07/11/19 Status: Ordered Sm Fiber Capsule TAKE 1 CAPSULE THREE TIMES DAILY IN THE MORNING, AT NOON, AND IN THE EVENING WITH MEALS Start Date: 12/15/18 Status: Ordered ticagrelor 90 mg oral tablet 1 tablet = 90 mg, By Mouth, 2 times a day, # 60 tablet, 1 Refills, Maintenance, 07/11/19 15:15:00 EDT, Tablet, [facility], 127, cm, 07/11/19 14:39:00 EDT, Height, 78.8, kg, 07/10/19 10:13:00 EDT, Dry Weight Start Date: 07/11/19 Status: Ordered Toujeo SoloStar 300 units/mL subcutaneous solution INJECT 65 UNITS SUBCUTANEOUSLY ONCE DAILY Start Date: 12/15/18 Status: Ordered traZODone 50 mg oral tablet TAKE 1 TABLET BY MOUTH AT BEDTIME Start Date: 12/15/18 Status: Ordered Trulicity Pen 0.75 mg/0.5 mL subcutaneous solution INJECT ONE PEN (=0.75MG) SUBCUTANEOUSLY ONCE A WEEK DIRECTED Start Date: 12/15/18 Status: Ordered Tylenol 325 mg oral tablet 650 mg, 2, tablet, By Mouth, Every 6 hours, PRN, Refills 0, Maintenance, Pain , Mild Pain , Moderate Headache, 07/11/19 14:57:00 EDT Start Date: 07/11/19 Status: Ordered Vitamin D3 2000 intl units oral tablet TAKE 1 TABLET BY MOUTH EVERY MORNING Start Date: 12/15/18 Status: Ordered Walker with wheels Walker with wheels, See Instructions, # 1 application, Refills 0, Tot. Refills 0, Maintenance, Walker with wheels, 02/17/19 13:57:47 EDT, Compound Start Date: 02/17/19 Status: Ordered Vital Signs Most recent to oldest [Reference Range]: 1 2 Oxygen Saturation [94-100 %] 99 % (07/15/19 4:14 PM) 100 % (07/15/19 10:11 AM) Pulse Rate [55-90 bpm] 68 bpm (07/15/19 4:14 PM) 72 bpm (07/15/19 10:11 AM) Blood Pressure [90-138/55-84 mm Hg] 114/ 58mm Hg (07/15/19 4:14 PM) 109/46mm Hg (07/15/19 10:11 AM) Respiratory Rate [16-30 br/min] 16 br/mi n (07/15/19 4:14 PM) 18 br/min (07/15/19 10:11 AM) Temperature [96.8-100.4 DegF] 98.1 DegF (07/15/19 10:11 AM) Mode of Delivery (Oxygen) Room air (07/15/19 4:14 PM) Room air (07/15/19 10:11 AM) Blood pressure sites Arm, right (07/15/19 4:14 PM) Arm, right (07/15/19 10:11 AM) Temperature Route Oral (07/15/19 10:11 AM)
--- OUTSIDE RECORDS SUMMARY | 2023-03-19 20:04 | XMS_ITS | Continuity of Care Document ---
Author Name Unknown Organization [facility] ter Address [address] [place] [address]- Care Team Providers Care Furnace Operator Oil Or Gas Name Role Phone Heber FRANKLIN, Kathy Primary Care Physician [phone] [place] [facility] [place] - 03/15/[address] [address]- Discharge Disposition: A-D/C Home Attending Physician: Jerrod FRANKLIN, Alaina Castro Admitting Physician: Jerrod FRANKLIN, Alaina Castro Referring Physician: Not on Staff, Referring MD [...] 0 Refills, Maintenance, 10/05/19 15:29:00 EDT, Tablet, [facility]/pharmacy #[id number], 144.78, cm, 10/05/19 14:50:00 EDT, Height, 89.5, kg, 10/01/19 20:04:00 EDT,Dry Weight Start Date: 10/05/19 Stop Date: 11/04/19 Status: Ordered fluticasone 50 mcg/inh nasal spray 1 sprays, Nares, Both, 2 times a day, # 16 Gm, 0 Refills, Maintenance, 12/01/20 4:52:00 EDT, [place],Partial fill upon patient request if the prescription is for a schedule II opioid drug. Start Date: 12/01/20 Status: Ordered insulin glargine 100 units/mL subcutaneous solution = 15 units, Subcutaneous Injection, Daily in AM, # 3.6 mL, 0 Refills, Maintenance, 03/08/22 13:57:00 EDT, Injection, [facility], Partial fill upon patient request if [...] 5 Refills, Maintenance, 06/14/21 8:50:00 EST, Capsule, [facility]/pharmacy #[id number], Partial fill upon patient request if the prescription is for a schedule II opioid drug., 152, cm, 06/07/21 7:45:00 EST, [place]... Start Date: 06/14/21 Status: Ordered MiraLax oral powder for reconstitution = 17 Gm, By Mouth, 2 times a day before breakfast and dinne, dissolve in water before taking, # 527Gm, 11 Refills, Maintenance, 05/28/21 13:46:00 EST, REC Powder, [facility]/pharmacy #[id number], Partial fill upon patient request if the prescription is for a sche... Start Date: 05/28/21 Status: Ordered Norvasc 2.5 mg oral tablet 2.5 mg, 1, tablet, By Mouth, Daily, Please conctact office for apt. for further refills [phone], #30 tablet, Refills 1, Tot. Refills 1, Maintenance, 08/03/20 11:28:00 EDT, Route to Pharmacy Electronically, [facility], y convert t... Start Date: [...] conctact office for apt. for further refills [phone], # 60 tablet, 1 Refills, Maintenance, 08/03/20 11:29:00 EDT, Tablet, [facility], may convert to 90 days [...] Exam Date Time Procedure Performing Provider Status 03/15/22 3:16 AM Chest 2 Views Frontal and Lat Hermelinda Dong; Auth (Verified) Notes: (Chest 2 Views Frontal and Lat) Reason For Exam: cough, hyperglycemia;Other: RESULT: Chest 2 Views Frontal and Lat Chest 2 Views Frontal and Lat Reason: Other:; cough, hyperglycemia; Clinical Question(s): Pneumonia COMPARISON: 03/04/2022. FINDINGS: LINES AND TUBES: None. LUNGS AND PLEURA: Hypoexpanded lungs limit evaluation. There is no evidence of focal airspace disease. No pleural effusion. No pneumothorax. HEART, MEDIASTINUM AND ANIKET: The cardiomediastinal silhouette is enlarged. BONES AND SOFT TISSUES: No acute abnormality. IMPRESSION: Enlarged cardiomediastinal silhouette. WSN: [id number] Ordering Physician: Rosalee Schrader Dictated By: Sabine Keith MD Dictated Date/Time: 03/15/22 6:31 am Reviewed By: Sabine Keith MD Signed By: Sabine Keith MD Signed Date/Time: 03/15/22 6:31 am Transcribed By: KEYSHA Transcribed Date/Time: 03/15/22 6:30 am Vital Signs Most recent to oldest [Reference Range]: 1 2 3 Oxygen Saturation [94-100 %] 100 % (03/15/22 5:42 AM) 100 % (03/15/22 3:53 AM) 100 % (03/15/22 1:57 AM) Pulse Rate [55-90 bpm] 93 bpm *H* (03/15/22 5:42 AM) 85 bpm (03/15/22 3:53 AM) 103 bpm *H* (03/15/22 1:57 AM) Blood Pressure [90-138/55-84 mm Hg] 138/115mm Hg (03/15/22 5:42 AM) 139/83mm Hg *H* (03/15/22 3:53 AM) 140/93mm Hg *H* (03/15/22 1:57 AM) Respiratory Rate [16-30 br/min] 18 br/min (03/15/22 7:22 AM) 20 br/min (03/15/22 5:42 AM) 18 br/min (03/15/22 3:53 AM) Temperature [96.8-100.4 DegF] 97.6 DegF (03/15/22 5:42 AM) 98.6 DegF (03/15/22 3:53 AM) 98.1 DegF (03/15/22 12:08 AM) Mode of Delivery (Oxygen) Room air (03/15/22 5:42 AM) Room air (03/15/22 3:53 AM) Room air (03/15/22 1:57 AM) Blood pressure sites Arm, right (03/15/22 5:42 AM) Arm, right (03/15/22 3:53 AM) Arm, left (03/15/22 1:57 AM) Temperature Route Oral (03/15/22 5:42 AM) Oral (03/15/22 3:53 AM) Oral (03/15/22 12:08 AM) Social History Social History Type Response Smoking Status Never (less than 100 in lifetime) entered on: 06/27/21 Sex EKG study * Event Display: EKG Authored Date: Note * [facility] , CIS S: TRANSCRIBE Sagar FRANKLIN, Sabine O: VERIFY Event Display: Result: Authored Date: Chest 2 Views Frontal and Lat Reason: Other:; cough, hyperglycemia; Clinical Question(s): Pneumonia COMPARISON: 03/04/2022. FINDINGS: LINES AND TUBES: None. LUNGS AND PLEURA: Hypoexpanded lungs limit evaluation. There is no evidence of focal airspace disease. No pleural effusion. No pneumothorax. HEART, MEDIASTINUM AND ANIKET: The cardiomediastinal silhouette is enlarged. BONES AND SOFT TISSUES: No acute abnormality. IMPRESSION: Enlarged cardiomediastinal silhouette. WSN: [id number] Ordering Physician: Rosalee Schradre Dictated By: Sabine Keith MD Dictated Date/Time: 03/15/22 6:31 am Reviewed By: Sabine Keith MD Signed By: Sabine Keith MD Signed Date/Time: 03/15/22 6:31 am Transcribed By: KEYSHA Transcribed Date/Time: 03/15/22 6:30 am Patient Care team information Care Team Personnel Name: Aster Pena RN Position: [facility] RN Member Role: Primary Care Nurse Name: Dunia Phillip RN Position: S RN Member Role: Primary Care Nurse Name: Alon Gonzalez RN Position: [facility] RN Member Role: Primary Care Nurse Name: Jessica Canseco RN Position: [facility] RN Member Role: Primary Care Nurse Name: Erica Archer RN Position: [facility] RN Member Role: Primary Care Nurse Name: Vickie Lyons Position: [facility] Outreach Member Role: Lifetime Consulting Physician Name: Martine Carr RN Position: [facility] RN Member Role: Primary Care Nurse Name: Indira Monsalve RN Position: [facility] RN Member Role: Primary Care Nurse Name: Loren Mcmanus RN Position: [facility] RN Member Role: Primary Care Nurse Name: Marisela Lobo LPN Position: [facility] RN Member Role: Primary Care Nurse Name: Mp Zarco RN Position: [facility] RN Member Role: Primary Care Nurse Name: Britney Henao RN Position: [facility] RN Member Role: Primary Care Nurse Name: Kathy Buck MD Position: [facility] Outreach Member Role: PCP Address: Address: [address] [place] [address] Name: Blayne Hughes RN Position: [facility] RN Member Role: Primary Care Nurse Name: Norma Art RN Position: [facility] RN Member Role: Primary Care Nurse Name: Mecca Boyd RN Position: [facility] RN Member Role: Primary Care Nurse Name: Katie Evans RN Position: [facility] RN Member Role: Primary Care Nurse Name: Leonor Mccormick RN Position: [facility] RN Member Role: Primary Care Nurse Name: Paige Morris RN Position: [facility] RN Member Role: Primary Care Nurse Name: Shauna Angela RN Position: [facility] RN Member Role: Primary Care Nurse Name: Trini Starr RN Position: [facility] RN Member Role: Primary Care Nurse Name: Susie Monson RN Position: [facility] RN Member Role: Primary Care Nurse Name: Meena Castro RN Position: [facility] RN Member Role: Primary Care Nurse Name: Rosalee Schrader NP Position: [facility] Associate Professional Member Role: ED Physician Returned Item Clerk Address: Address: [address] [place] [address] Name: Hermelinda Monsalve Position: [facility] ED [facility] Name: Edwin Jiménez Position: [facility] ED TA [facility] Member Role: Sales Lead Generator Name: Miguel Mei RN Position: [facility] ED RN W/OE and Tasks Member Role: Patient Care Provider Name: Ko Kelly RN Position: [facility] ED RN W/OE and Tasks Member Role: Patient Care Provider Name: Jerrod FRANKLIN, Alaina Castro Position: [facility] ED Medicine MD Member Role: Admitting Physician Address: Address: [address] [place] [address]- Care Team Related Persons Name: PAIGE TALBERT Address: [place] [address] Name: CAMRON VELASQUEZ Address: [place] [address] Name: MARIA DE JESUS SETHI Address: home [address] [facility] [address] [place] [address]
--- OUTSIDE RECORDS SUMMARY | 2023-03-19 20:04 | XMS_ITS | Continuity of Care Document ---
Author Name Unknown Organization [facility] ter Address [address] [place] [address]- Care Team Providers Care Heater Helper Forge Name Role Phone Luis Fernando Nobles MD Primary Care Physician [id number] Date(s): 10/06/19 - 11/05/[address] [address]- [facility] Attending Physician: Not on Staff, Attending MD [...] 07/28/19 10:09:00 EDT, Route to Pharmacy Electronically, [facility], september convert to 90daysat patient [...] 0 Refills, Maintenance, 10/05/19 15:24:00 EDT, Nasal [place], [id number], 1 sprays Nares, Both 2 times a day, 144.78, cm, 10/05/19 14:50:00 EDT, Height, 89.5, kg, 10/01/19 20:04:00 EDT, Dry... Start Date: 10/05/19 Status: Ordered insulin glargine 100 u/ml subcutaneous solution = 20 units, Subcutaneous Injection, Daily at bedtime, # 10 mL, 0 Refills, Maintenance, 10/05/19 15:24:00 EDT, Injection, [facility]/pharmacy #[id number], 144.78, cm, 10/05/19 14:50:00 EDT, Height, [...] 10/05/19 15:25:00 EDT, Route to Pharmacy Electronically, [facility]acy #[id number], 144.78, cm, 10/05/19 14:50:00 EDT, Height, 89.5, kg, 10/01/19 20:04:00 EDT,... Start Date: 10/05/19 Stop Date: 10/26/19 Status: Ordered metoprolol 25 mg oral tablet 12.5 mg, 0.5, tablet, By Mouth, Daily, # 15 tablet, Refills 11, Tot. Refills 11, Maintenance, 07/28/19 10:09:00 EDT, Route to Pharmacy Electronically, [facility], may convert to 90 days at patient request, 127, cm, 07/22/19 11:16:0... Start Date: 07/28/19 Stop Date: 07/22/20 Status: Ordered Norvasc 2.5 mg oral tablet 2.5 mg, 1, tablet, By Mouth, Daily, # 30 tablet, Refills 11, Tot. Refills 11, Maintenance, 07/27/2009:09:00 EDT, Route to Pharmacy Electronically, [facility], y convert to 90 days at patient request, 127, cm, 07/22/19 11:16:00 EDT... Start Date: 07/28/19 Status: Ordered Reglan 5 mg oral tablet 1 tablet = 5 mg, By Mouth, 4 times a day, PRN Nausea & Vomiting, # 120 tablet, 3 Refills, Acute07/27/20 10:11:00 EDT, 07/28/19 10:09:00 EDT, Tablet, [facility], 127, cm, 07/22/19 11:16:00 EDT, [...] 11 Refills, Maintenance, 07/28/19 10:09:00 EDT, Tablet, [facility], may convert to 90 [...]
--- OUTSIDE RECORDS SUMMARY | 2023-03-19 20:04 | XMS_ITS | Continuity of Care Document ---
Author Name Unknown Organization [facility] ter Address [address] [place] [address]- Care Team Providers Care Operations Intelligence Name Role Phone Heber FRANKLIN, Kathy Primary Care Physician [phone] [id number] Date(s): 10/04/21 - 10/06/[address] [address] Discharge Disposition: A-D/C Home Attending Physician: Herminia Weems MD Admitting Physician: Ree Gottlieb MD Referring [...] oral tablet 5 mg, Tablet, By Mouth, 10/06/21 9:00:00 EDT Start Date: 10/06/21 Stop Date: 10/06/21 Status: Completed enalapril 5 mg oral tablet [...] 0 Refills, Maintenance, 10/05/19 15:29:00 EDT, Tablet, [facility]/pharmacy #[id number], 144.78, cm, 10/05/19 14:50:00 EDT, Height, 89.5, kg, 10/01/19 20:04:00 EDT,Dry Weight Start Date: 10/05/19 Stop Date: 11/04/19 Status: Ordered fluticasone 50 mcg/inh nasal spray 1 sprays, Nares, Both, 2 times a day, # 16 Gm, 0 Refills, Maintenance, 12/01/20 4:52:00 EDT, [place],Partial fill upon patient request if the prescription [...] conctact office for apt. for further refills [phone], #30 tablet, Refills 1, Tot. Refills 1, Maintenance, 08/03/20 11:28:00 EDT, Route to Pharmacy Electronically, [facility], y convert t... Start Date: 08/03/20 Status: Ordered Norvasc 5 mg oral tablet 2.5 mg, Tablet, By Mouth, 10/06/21 9:00:00 EDT Start Date: 10/06/21 Stop Date: 10/06/21 Status: Completed ondansetron 4 mg oral tablet, [...] conctact office for apt. for further refills [phone], # 60 tablet, 1 Refills, Maintenance, 08/03/20 11:29:00 EDT, Tablet, [facility], may convert to 90 [...] for Microbiology Reports Name Date Blood Culture 10/04/21 Blood Culture #2 10/04/21 Microbiology Reports TEST:Blood Culture, Second Order STATUS:Unauthenticated BODY SITE: SOURCE:Blood COLLECTED DATE/TIME:10/04/21 8:10 AM Blood Culture, Second Order SPECIMEN DESCRIPTION : BLOOD R HAND SPECIAL REQUESTS : NONE CULTURE : NO GROWTH AFTER 48 HOURS REPORT STATUS : PRELIMINARY REPORT TEST:Blood Culture STATUS:Unauthenticated BODY SITE: SOURCE:Blood COLLECTED DATE/TIME:10/04/21 6:17 AM Blood Culture SPECIMEN DESCRIPTION : BLOOD LHAND SPECIAL REQUESTS : NONE CULTURE : NO GROWTH AFTER 48 HOURS REPORT STATUS : PRELIMINARY REPORT Radiology Reports * Exam Date Time Procedure Performing Provider Status 10/04/21 9:03 AM Chest Portable Loren Acharya; Auth ( Verified) Notes: (Chest Portable) Reason For Exam: Cough RESULT: Chest Portable Chest Portable Hx of Present Illness: Woke up at midnight feeling hot sweaty, POC> 300 took additional dose of Insulin 4 unit @ 010am. [place] dizzy with hypoglycemic symptoms so at 4 am , took sandwich and Oreos. Upon EMS arrival POC: 37,gave 50gm oral glucose repeat POC: 64, Latest POC: 127; Reason: Cough; Clinical Question(s): Pleural Effusion COMPARISON: Earlier the same day. FINDINGS: Current AP upright chest x-ray 8:16 AM, a single radiograph. LINES AND TUBES: None. LUNGS AND PLEURA: Diminished lung volumes bronchovascular crowding. No pleural effusion. No pneumothorax. HEART, MEDIASTINUM AND ANIKET: Heart is normal in size. Normal upper mediastinal and hilar contour. BONES AND SOFT TISSUES: No acute abnormality. IMPRESSION: Low volumes. No acute abnormality. WSN: [id number] Ordering Physician: Anuj Carranza Dictated By: Rolando Milton MD Dictated Date/Time: 10/04/21 9:17 am Reviewed By: Rolando Milton MD Signed By: Rolando Milton MD Signed Date/Time: 10/04/21 9:17 am Transcribed By: KEYSHA Transcribed Date/Time: 10/04/21 9:16 am * Exam Date Time Procedure Performing Provider Status 10/04/21 7:09 AM Chest Portable Nemo Carnes; Auth (Verified) Notes: (Chest Portable) Reason For Exam: Cough RESULT: Chest Portable Chest Portable Hx of Present Illness: Woke up at midnight feeling hot sweaty, POC> 300 took additional dose of Insulin 4 unit @ 010am. [place] dizzy with hypoglycemic symptoms so at 4 am , took sandwich and oreos. Upon EMS arrival POC: 37,gave 50gm oral glucose repeat POC: 64, Latest POC: 127; Reason: Cough; Clinical Question(s): Pleural Effusion COMPARISON: 09/24/2021. FINDINGS: LINES AND TUBES: None. LUNGS AND PLEURA: Significantly low lung volumes. Interstitial markings are increased. No pleural effusion. No pneumothorax, although lung apices partially obscured by patient's chin. HEART, MEDIASTINUM AND ANIKET: Not well assessed due to low lung volumes. BONES AND SOFT TISSUES: No acute abnormality. IMPRESSION: Increased interstitial markings could be due to significantly low lung volumes but pulmonary edema cannot be excluded. WSN: [id number] Ordering Physician: Anuj Carranza Dictated By: Marko Angeles MD Dictated Date/Time: 10/04/21 7:53 am Reviewed By: Marko Angeles MD Signed By: Marko Angeles MD Signed Date/Time: 10/04/21 7:53 am Transcribed By: KEYSHA Transcribed Date/Time: 10/04/21 7:52 am Vital Signs Most recent to oldest [Reference Range]: 1 2 3 Height 160 cm (10/04/21 5:21 PM) Weight 69 kg (10/04/21 5:21 PM) Oxygen Saturation [94-100 %] 100 % (10/06/21 11:00 AM) 100 % (10/06/21 8:00 AM) 98 % (10/05/21 9:00 PM) Pulse Rate [55-90 bpm] 58 bpm (10/06/21 11:00 AM) 70 bpm (10/06/21 8:00 AM) 69 bpm (10/05/21 9:00 PM) Body Mass Index [18.5-24.99] 26.95 *H* (10/04/21 5:21 PM) Blood Pressure [90-138/55-84 mm Hg] 148/52mm Hg *H* (10/06/21 11:00 AM) 140/59mm Hg *H* (10/06/21 8:49 AM) 140/59mm Hg *H* (10/06/21 8:46 AM) Respiratory Rate [16-30 br/min] 18 br/min (10/06/21 11:00 AM) 18 br/min (10/06/21 8:00 AM) 19 br/min (10/05/21 9:00 PM) Temperature [96.8-100.4 DegF] 98.6 DegF (10/06/21 11:00 AM) 97.8 DegF (10/06/21 8:00 AM) 98.2 DegF (10/05/21 9:00 PM) Mode of Delivery (Oxygen) Room air (10/06/21 11:00 AM) Room air (10/06/21 8:00 AM) Room air (10/05/21 9:00 PM) Blood pressure sites Arm, right (10/06/21 11:00 AM) Arm, left (10/06/21 8:00 AM) Arm, left (10/05/21 9:00 PM) Temperature Route Oral (10/06/21 11:00 AM) Oral (10/06/21 8:00 AM) Oral (10/05/21 9:00 PM) Dry Weight 69 kg (10/04/21 5:21 PM) Weight Obtained Via Bed scale (10/04/21 5:21 PM) Dry Weight Obtained Via Bed scale (10/04/21 5:21 PM) Social History Social History Type Response Smoking Status Never (less than 100 in lifetime) entered on: 06/27/21 Sex
--- OUTSIDE RECORDS SUMMARY | 2023-03-19 20:04 | XMS_ITS | Continuity of Care Document ---
Author Name Unknown Organization [facility] ter Address [address] [place] [address]- Care Team Providers Care Stone Polisher Hand Name Role Phone Heber FRANKLIN, Kathy Primary Care Physician [phone] Encounter [facility] Date(s): 09/24/21 - 09/26/[address] [address] Discharge Disposition: A-D/C Home Attending Physician: Tai FRANKLIN, Natahsa Alberto Admitting Physician: Lyssa Shelby MD Referring Physician: Not on Staff, Referring [...] Mouth, Daily Start Date: 12/15/18 Status: Ordered Bactrim DS 800 mg-160 mg oral tablet 1 tablet, By Mouth, 2 times a day, for 2 days, # 4 tablet, 0 Refills, Acute 09/28/21 16:34:00 EDT, 09/26/21 16:34:00 EDT, Tablet, [facility], Partial fill upon patient request if the prescription is for a schedule II opioid drug., 1 tabl... Start Date: 09/26/21 Stop Date: 09/28/21 Status: Ordered cetirizine 5 mg oral tablet [...] 0 Refills, Maintenance, 10/05/19 15:29:00 EDT, Tablet, [facility]/pharmacy #[id number], 144.78, cm, 10/05/19 14:50:00 EDT, Height, 89.5, kg, 10/01/19 20:04:00 EDT,Dry Weight Start Date: 10/05/19 Stop Date: 11/04/19 Status: Ordered fluticasone 50 mcg/inh nasal spray 1 sprays, Nares, Both, 2 times a day, # 16 Gm, 0 Refills, Maintenance, 12/01/20 4:52:00 EDT, [place],Partial fill upon patient request if the prescription is for a schedule II opioid drug. Start Date: 12/01/20 Status: Ordered insulin glargine 100 units/mL subcutaneous solution 0.12 mL = 12 units, Subcutaneous Injection, Daily in AM, # 3.6 mL, 0 Refills, Maintenance, 09/26/2212:07:00 EDT, Injection, Partial fill upon patient request if the prescription is for a schedule IIopioid drug., 149, cm, 09/26/21 11:32:00 EDT, Heigh... Start Date: 09/26/21 Status: Ordered insulin lispro [...] opioid drug. Start Date: 12/05/20 Status: Ordered lisinopril 5 mg oral tablet 5 mg, Tablet, By Mouth, 09/26/21 13:17:00 EDT Start Date: 09/26/21 Stop Date: 09/26/21 Status: Completed Norvasc 2.5 mg oral tablet 2.5 mg, 1, tablet, By Mouth, Daily, Please conctact office for apt. for further refills [phone], #30 tablet, Refills 1, Tot. Refills 1, Maintenance, 08/03/20 11:28:00 EDT, Route to Pharmacy Electronically, [facility], y convert t... Start [...] conctact office for apt. for further refills [phone], # 60 tablet, 1 Refills, Maintenance, 08/03/20 11:29:00 EDT, Tablet, [facility], may convert to 90 [...] Hyperlipidemia(Confirmed) Active HTN (hypertension)(Confirmed) Active Insomnia(Confirmed) Active Obese class I(Confirmed) Active DM2 (diabetes mellitus, type 2)(Confirmed) Active 1hands Results Orders for Microbiology Reports Name Date Blood Culture 09/24/21 Blood Culture #2 09/24/21 Microbiology Reports TEST:Blood Culture, Second Order STATUS:Unauthenticated BODY SITE: SOURCE:Blood COLLECTED DATE/TIME:09/24/21 7:30 PM Blood Culture, Second Order SPECIMEN DESCRIPTION : BLOOD RIGHT BICEPT SPECIAL REQUESTS : NONE CULTURE : NO GROWTH AFTER 48 HOURS REPORT STATUS : PRELIMINARY REPORT TEST:Blood Culture STATUS:Unauthenticated BODY SITE: SOURCE:Blood COLLECTED DATE/TIME:09/24/21 6:50 PM Blood Culture SPECIMEN DESCRIPTION : BLOOD NO SITE SPECIAL REQUESTS : NONE CULTURE : NO GROWTH AFTER 48 HOURS REPORT STATUS : PRELIMINARY REPORT Radiology Reports * Exam Date Time Procedure Performing Provider Status 09/24/21 7:09 PM Chest Portable Kaylie Dupree; Auth ( Verified) Notes: (Chest Portable) Reason For Exam: Cough RESULT: Chest Portable Chest Portable performed upright at 6:55 PM Hx of Present Illness: lethargy at home ? took wrong meds.; Reason: Cough; Clinical Question(s): Pleural Effusion COMPARISON: Multiple prior chest x-rays, the most recent of which is dated 06/27/2021. FINDINGS: LINES AND TUBES: None. LUNGS AND PLEURA: Clear lungs. Normal pulmonary vascularity. No pleural effusion. No pneumothorax. HEART, MEDIASTINUM AND ANIKET: Heart is normal in size. Normal upper mediastinal and hilar contour. BONES AND SOFT TISSUES: No acute abnormality. IMPRESSION: No acute abnormality. WSN: [id number] Ordering Physician: Anuj Carranza Dictated By: Naomi Lee MD Dictated Date/Time: 09/24/21 7:19 pm Reviewed By: Naomi Lee MD Signed By: Naomi Lee MD Signed Date/Time: 09/24/21 7:19 pm Transcribed By: KEYSHA Transcribed Date/Time: 09/24/21 7:16 pm Vital Signs Most recent to oldest [Reference Range]: 1 2 3 Height 149 cm (09/26/21 4:17 PM) 149 cm (09/26/21 11:32 AM) 149 cm (09/26/21 7:38 AM) Weight 69.0 kg (09/26/21 6:56 AM) 69.2 kg (09/25/21 11:03 PM) 68.5 kg (09/25/21 12:20 PM) Oxygen Saturation [94-100 %] 100 % (09/26/21 4:17 PM) 100 % (09/26/21 11:32 AM) 100 % (09/26/21 7:38 AM) Pulse Rate [55-90 bpm] 63 bpm (09/26/21 4:17 PM) 67 bpm (09/26/21 11:32 AM) 64 bpm (09/26/21 7:38 AM) Body Mass Index [18.5-24.99] 31.17 *>HHI* (09/25/21 11:03 PM) Blood Pressure [90-138/55-84 mm Hg] 153/58mm Hg *H* (09/26/21 4:17 PM) 157/54mm Hg *H* (09/26/21 1:30 PM) 157/54mm Hg *H* (09/26/21 11:32 AM) Respiratory Rate [16-30 br/min] 18 br/min (09/26/21 4:17 PM) 18 br/min (09/26/21 11:32 AM) 18 br/min (09/26/21 7:38 AM) Temperature [96.8-100.4 DegF] 98.8 DegF (09/26/21 4:17 PM) 98.3 DegF (09/26/21 11:32 AM) 97.8 DegF (09/26/21 7:38 AM) Mode of Delivery (Oxygen) Room air (09/26/21 4:17 PM) Room air (09/26/21 11:32 AM) Room air (09/26/21 7:38 AM) Blood pressure sites Arm, left (09/26/21 4:17 PM) Arm, left (09/26/21 11:32 AM) Arm, right (09/26/21 7:38 AM) Temperature Route Oral (09/26/21 4:17 PM) Oral (09/26/21 11:32 AM) Oral (09/26/21 7:38 AM) Dry Weight 68.5 kg (09/25/21 11:03 PM) 68.5 kg (09/25/21 12:20 PM) 68.5 kg (09/25/21 8:23 AM) Weight Obtained Via Patient/family state d (09/25/21 8:23 AM) Dry Weight Obtained Via Patient/family s tated (09/25/21 8:23 AM) Social History Social History Type Response Smoking Status Never (less than 100 in lifetime) entered on: 06/27/21 Sex
--- OUTSIDE RECORDS SUMMARY | 2023-03-19 20:04 | XMS_ITS | Continuity of Care Document ---
Author Name Unknown Organization [facility] Address [address] [place] [address]- Care Team Providers Care Fast Food Services Manager Name Role Phone Anthony FRANKLIN, Boris Watters Primary Care Physician [phone] Encounter [facility] ACCT R [id number] Date(s): 08/15/20 - 09/14/20 [facility] [address] [place] [address] Allergies, Adverse Reactions, Alerts Substance Reaction [...] 0 Refills, Maintenance, 10/05/19 15:24:00 EDT, Nasal [place], [id number], 1 sprays Nares, Both 2 [...] Refills, Maintenance, 10/05/19 15:24:00 EDT, Injection, [facility]/pharmacy #[id number], 144.78, cm, 10/05/19 14:50:00 EDT, Height, [...] 15:25:00 EDT, Route to Pharmacy Electronically, [facility]/pharmacy #[id number], 144.78, cm, 10/05/19 14:50:00 EDT, Height, 89.5, kg, 10/01/19 20:04:00 EDT,... Start Date: 10/05/19 Stop Date: 10/26/19 Status: Ordered metoprolol 25 mg oral tablet 12.5 mg, 0.5, tablet, By Mouth, Daily, Please conctact office for apt. for further refills [phone], # 15 tablet, Refills 1, Tot. Refills 1, Maintenance, 08/03/20 11:29:00 EDT, Route to Pharmacy Electronically, [facility], may conv... Start Date: 08/03/20 Stop Date: 10/02/20 Status: Ordered Norvasc 2.5 mg oral tablet 2.5 mg, 1, tablet, By Mouth, Daily, Please conctact office for apt. for further refills [phone], #30 tablet, Refills 1, Tot. Refills 1, Maintenance, 08/03/20 11:28:00 EDT, Route to Pharmacy Electronically, [facility], y convert t... Start Date: [...] conctact office for apt. for further refills [phone], # 60 tablet, 1 Refills, Maintenance, 08/03/20 11:29:00 EDT, Tablet, [facility], may convert to 90 [...]
--- OUTSIDE RECORDS SUMMARY | 2023-03-19 20:04 | XMS_ITS | Continuity of Care Document ---
Author Name Unknown Organization [facility] Address [address] [place] [address]- Care Team Providers Care Voucher Clerk Name Role Phone Heber FRANKLIN, Kathy Primary Care Physician [phone] [place] [facility] [place]s): 01/14/21 - 03/06/21 [facility] [address] [place] [address]- Attending Physician: Hetal Putnam MD Admitting Physician: Hetal Putnam MD Allergies, Adverse Reactions, Alerts Substance Reaction [...] Gm, 0 Refills, Maintenance, 12/01/20 4:52:00 EDT, [place],Partial fill upon patient request if the prescription [...] Mouth, Daily, CONTACT OFFICE FOR FURTHER REFILLS [phone], # 15 tablet, 0 Refills, Maintenance, 10/26/20 12:04:00 EDT, [facility], 128, cm, 10/02/20 15:05:00 EDT, Height, 62, kg, 09/27/20 0:49:00 EDT, Dry Weight Start Date: 10/26/20 Status: Ordered Norvasc 2.5 mg oral tablet 2.5 mg, 1, tablet, By Mouth, Daily, Please conctact office for apt. for further refills [phone], #30 tablet, Refills 1, Tot. Refills 1, Maintenance, 08/03/20 11:28:00 EDT, Route to Pharmacy Electronically, [facility], y convert t... Start [...] conctact office for apt. for further refills [phone], # 60 tablet, 1 Refills, Maintenance, 08/03/20 11:29:00 EDT, Tablet, [facility], may convert to 90 [...]
--- OUTSIDE RECORDS SUMMARY | 2023-03-19 20:04 | XMS_ITS | Continuity of Care Document ---
Author Name Unknown Organization [facility] Address [address] [place] [address]- Care Team Providers Care Aircraft Cleaner Name Role Phone Kathy Buck MD Primary Care Physician [id number] Date(s): 07/25/22 - 08/24/22 [facility] [address] [place] [address]- Attending Physician: Mihaela Hawk Admitting Physician: AdmMihaela cuellar Referring Physician: Admtr, Ar8 Allergies, Adverse Reactions, Alerts No Known Allergies Immunizations Given and Recorded Vaccine Date Status Refusal Reason SARS-CoV-2 mRNA ([id number]) vax 07/09/21 Recorded SARS-CoV-2 (COVID-19) Ad26 vaccine [...] Refills, Maintenance, 10/05/19 15:29:00 EDT, Tablet, [facility]/pharmacy #[id number], 144.78, cm, 10/05/19 14:50:00 EDT, Height, 89.5, kg, 10/01/19 20:04:00 EDT,Dry Weight Start Date: 10/05/19 Stop Date: 11/04/19 Status: Ordered fluticasone 50 mcg/inh nasal spray 1 sprays, Nares, Both, 2 times a day, # 16 Gm, 0 Refills, Maintenance, 12/01/20 4:52:00 EDT, [place],Partial fill upon patient request if the prescription is for a schedule II opioid drug. Start Date: 12/01/20 Status: Ordered insulin glargine 100 units/mL subcutaneous solution = 15 units, Subcutaneous Injection, Daily in AM, # 3.6 mL, 0 Refills, Maintenance, 03/08/22 13:57:00 EDT, Injection, [facility], Partial fill upon patient [...] 145 mcg oral capsule See Instructions, [facility], # 30 capsule, 5 Refills, Maintenance, 08/03/22 10:00:00 EDT, [facility], 144.8, cm, 04/14/22 12:40:00 EST, Height, 67, kg, 03/04/22 21:45:00 EDT, Dry Weight Start Date: 08/03/22 Status: Ordered MiraLax oral powder for reconstitution = 17 Gm, By Mouth, 2 times a day before breakfast and dinne, dissolve in water before taking, # 527Gm, 11 Refills, Maintenance, 05/28/21 13:46:00 EST, REC Powder, [facility]/pharmacy #[id number], Partial fill upon patient request if the prescription is for a sche... Start Date: 05/28/21 Status: Ordered Norvasc 2.5 mg oral tablet 2.5 mg, 1, tablet, By Mouth, Daily, Please conctact office for apt. for further refills [phone], #30 tablet, Refills 1, Tot. Refills 1, Maintenance, 08/03/20 11:28:00 EDT, Route to Pharmacy Electronically, [facility], y convert t... Start Date: [...] 10/20/22 9:58:00 EDT, Route to Pharmacy Electronically, [facility]/pharmacy #[id number], Partial fill upon patient request if the [...] Care Nurse Name: Dunia Phillip RN Position: [facility] RN Member Role: Primary Care Nurse Name: Lisette Trejo RN Position: [facility] RN Member Role: Primary Care Nurse Name: Jessica Canseco RN Position: [facility] RN Member Role: Primary Care Nurse Name: Shauna Le RN Position: [facility] SN RN Member Role: Primary Care Nurse Name: Erica Archer RN Position: [facility] RN Supv Member Role: Primary Care Nurse Name: Vickie Lyons Position: [facility] Outreach Member Role: Lifetime Consulting Physician Name: Martine Carr RN Position: [facility] RN Member Role: Primary Care Nurse Name: Indira Monsalve RN Position: [facility] RN Member Role: Primary Care Nurse Name: Loren Mcmanus RN Position: [facility] RN Member Role: Primary Care Nurse Name: Marisela Lobo LPN Position: [facility] RN Member Role: Primary Care Nurse Name: Mp Zarco RN Position: [facility] RN Member Role: Primary Care Nurse Name: Kathy Buck MD Position: [facility] Outreach Member Role: PCP Address: Address: [address] [place] [address] Name: Blayne Hughes RN Position: [facility] RN Member Role: Primary Care Nurse Name: Norma Art RN Position: [facility] RN Member Role: Primary Care Nurse Name: Mecca Boyd RN Position: [facility] RN Member Role: Primary Care Nurse Name: Katie Evans RN Position: [facility] RN Member Role: Primary Care Nurse Name: Leonor Mccormick RN Position: [facility] RN Member Role: Primary Care Nurse Name: Hortensia Garrison Position: [facility] Outreach Member Role: Lifetime Consulting Physician Name: Paige Morris RN Position: [facility] RN Member Role: Primary Care Nurse Name: Trini Starr RN Position: [facility] RN Member Role: Primary Care Nurse Name: Susie Monson RN Position: [facility] RN Member Role: Primary Care Nurse Name: Meena Castro RN Position: [facility] RN Member Role: Primary Care Nurse Care Team Related Persons Name: PAIGE TALBERT Address: [place] [address] Name: CAMRON VELASQUEZ Address: [place] [address] Name: ANTIONE SETHI Address: home [address] [place] [address]
--- OUTSIDE RECORDS SUMMARY | 2023-03-19 20:04 | XMS_ITS | Continuity of Care Document ---
Author Name Unknown Organization [facility] Address [address] [place] [address]- Care Team Providers Care Care Companion Name Role Phone Kathy Buck MD Primary Care Physician Encounter [facility] Date(s): 12/12/21 - 01/11/22 [facility] [address] [place] [address]- Attending Physician: Mihaela Hawk Admitting Physician: Mihaela [...] Gm, 0 Refills, Maintenance, 12/01/20 4:52:00 EDT, [place],Partial fill upon patient request if the prescription [...] 5 Refills, Maintenance, 06/14/21 8:50:00 EST, Capsule, [facility]/pharmacy #[id number], Partial fill upon patient request if the prescription is for a schedule II opioid drug., 152, cm, 06/07/21 7:45:00 EST, [place]... Start Date: 06/14/21 Status: Ordered MiraLax oral powder for reconstitution = 17 Gm, By Mouth, 2 times a day before breakfast and dinne, dissolve in water before taking, # 527Gm, 11 Refills, Maintenance, 05/28/21 13:46:00 EST, REC Powder, [facility]/pharmacy #[id number], Partial fill upon patient request if the prescription is for a sche... Start Date: 05/28/21 Status: Ordered Norvasc 2.5 mg oral tablet 2.5 mg, 1, tablet, By Mouth, Daily, Please conctact office for apt. for further refills [phone], #30 tablet, Refills 1, Tot. Refills 1, Maintenance, 08/03/20 11:28:00 EDT, Route to Pharmacy Electronically, [facility], y convert t... Start Date: 08/03/20 [...] conctact office for apt. for further refills [phone], # 60 tablet, 1 Refills, Maintenance, 08/03/20 11:29:00 EDT, Tablet, [facility], may convert to 90 days at [...] Hyperlipidemia(Confirmed) Active HTN (hypertension)(Confirmed) Active Insomnia(Confirmed) Active Severe obesity(Confirmed) Active Brain TIA(Confirmed) Active DM2 (diabetes mellitus, type 2)(Confirmed) Active 1hands Social History Social History Type Response Smoking Status Never (less than 100 in lifetime) entered on: 06/27/21 Sex Care Team Personnel Name: Kathy Buck MD Address: [address] [place], [place] [address]
--- OUTSIDE RECORDS SUMMARY | 2023-03-19 20:04 | XMS_ITS | Continuity of Care Document ---
Author Name Unknown Organization [facility] Address [address] [place] [address]- Care Team Providers Care Integrated Circuit Fabricator Name Role Phone Kathy Buck MD Primary Care Physician Encounter [facility] [id number] Date(s): 01/18/21 - 05/18/21 [facility] [address] [place] [id number]- Attending Physician: Gaurav Saul MD Admitting Physician: Gaurav Saul MD Referring Physician: Kathy Buck MD Allergies, [...] Gm, 0 Refills, Maintenance, 12/01/20 4:52:00 EDT, [place],Partial fill upon patient request if the prescription [...] Mouth, Daily, CONTACT OFFICE FOR FURTHER REFILLS [phone], # 15 tablet, 0 Refills, Maintenance, 10/26/20 12:04:00 EDT, [facility] [id number], 128, cm, 10/02/20 15:05:00 EDT, Height, 62, kg, 09/27/20 0:49:00 EDT, Dry Weight Start Date: 10/26/20 Status: Ordered Norvasc 2.5 mg oral tablet 2.5 mg, 1, tablet, By Mouth, Daily, Please conctact office for apt. for further refills [phone], #30 tablet, Refills 1, Tot. Refills 1, Maintenance, 08/03/20 11:28:00 EDT, Route to Pharmacy Electronically, [facility], y convert t... Start Date: [...] conctact office for apt. for further refills [phone], # 60 tablet, 1 Refills, Maintenance, 08/03/20 11:29:00 EDT, Tablet, [facility], may convert to 90 days [...]
--- OUTSIDE RECORDS SUMMARY | 2023-03-19 20:04 | XMS_ITS | Continuity of Care Document ---
Author Name Unknown Organization [facility] Address [address] [place] [address]- Care Team Providers Care Profile Shaper Operator Name Role Phone Dayanna Rosas MD Primary Care Physician [phone] Encounter [facility] [place] Date(s): 05/14/22 - 06/13/22 [facility] [address] [place] [id number]- [place] Allergies, Adverse Reactions, Alerts No Known Allergies Immunizations Given and Recorded Vaccine Date Status Refusal Reason SARS-CoV-2 mRNA ([id number]) vax 07/09/21 Recorded SARS-CoV-2 (COVID-19) Ad26 vaccine [...] 0 Refills, Maintenance, 10/05/19 15:29:00 EDT, Tablet, [facility]/pharmacy #[id number], 144.78, cm, 10/05/19 14:50:00 EDT, Height, 89.5, kg, 10/01/19 20:04:00 EDT,Dry Weight Start Date: 10/05/19 Stop Date: 11/04/19 Status: Ordered fluticasone 50 mcg/inh nasal spray 1 sprays, Nares, Both, 2 times a day, # 16 Gm, 0 Refills, Maintenance, 12/01/20 4:52:00 EDT, [place],Partial fill upon patient request if the prescription is for a schedule II opioid drug. Start Date: 12/01/20 Status: Ordered insulin glargine 100 units/mL subcutaneous solution = 15 units, Subcutaneous Injection, Daily in AM, # 3.6 mL, 0 Refills, Maintenance, 03/08/22 13:57:00 EDT, Injection, [facility], Partial fill upon patient [...] 5 Refills, Maintenance, 06/14/21 8:50:00 EST, Capsule, [facility]/pharmacy #[id number], Partial fill upon patient request if the prescription is for a schedule II opioid drug., 152, cm, 06/07/21 7:45:00 EST, [place]... Start Date: 06/14/21 Status: Ordered MiraLax oral powder for reconstitution = 17 Gm, By Mouth, 2 times a day before breakfast and dinne, dissolve in water before taking, # 527Gm, 11 Refills, Maintenance, 05/28/21 13:46:00 EST, REC Powder, [facility]/pharmacy #[id number], Partial fill upon patient request if the prescription is for a sche... Start Date: 05/28/21 Status: Ordered Norvasc 2.5 mg oral tablet 2.5 mg, 1, tablet, By Mouth, Daily, Please conctact office for apt. for further refills [phone], #30 tablet, Refills 1, Tot. Refills 1, Maintenance, 08/03/20 11:28:00 EDT, Route to Pharmacy Electronically, [facility], y convert t... Start Date: [...] 10/20/22 9:58:00 EDT, Route to Pharmacy Electronically, [facility]/pharmacy #[id number], Partial fill upon patient request if the [...] Care Nurse Name: Lisette Trejo RN Position: [facility] RN Member Role: Primary Care Nurse Name: Jessica Canseco RN Position: [facility] RN Member Role: Primary Care Nurse Name: Dayanna Rosas MD Position: [facility] Outreach Member Role: PCP Address: Address: [address] [place] [id number] Name: Erica Archer RN Position: [facility] RN Supv Member Role: Primary Care Nurse Name: Vickie Lyons Position: [facility] Outreach Member Role: Lifetime Consulting Physician Name: Martine Carr RN Position: [facility] RN Member Role: Primary Care Nurse Name: Indira Monsalve RN Position: [facility] RN Member Role: Primary Care Nurse Name: Loren Mcmanus RN Position: [facility] RN Member Role: Primary Care Nurse Name: Marisela Lobo LPN Position: [facility] RN Member Role: Primary Care Nurse Name: Mp Zarco RN Position: [facility] RN Member Role: Primary Care Nurse Name: Britney Henao RN Position: [facility] RN Member Role: Primary Care Nurse Name: Blayne Hughes RN Position: [facility] RN Member Role: Primary Care Nurse Name: Norma Art RN Position: [facility] RN Member Role: Primary Care Nurse Name: Mecca Boyd RN Position: [facility] RN Member Role: Primary Care Nurse Name: Katie Evans RN Position: [facility] RN Member Role: Primary Care Nurse Name: Leonor Mccormick RN Position: [facility] RN Member Role: Primary Care Nurse Name: Hortensia Garrison Position: [facility] Outreach Member Role: Lifetime Consulting Physician Name: Paige Morris RN Position: [facility] RN Member Role: Primary Care Nurse Name: Shauna Angela RN Position: [facility] RN Member Role: Primary Care Nurse Name: Trini Starr RN Position: [facility] RN Member Role: Primary Care Nurse Name: Susie Monson RN Position: [facility] RN Member Role: Primary Care Nurse Name: Meena Castro RN Position: [facility] RN Member Role: Primary Care Nurse Care Team Related Persons Name: PAIGE TALBERT Address: [place] [address] Name: CAMRON VELASQUEZ Address: [place] [address] Name: ANTIONE SETHI Address: home [address] [place] [id number]
--- OUTSIDE RECORDS SUMMARY | 2023-03-19 20:04 | XMS_ITS | Continuity of Care Document ---
Author Name Unknown Organization [facility] Address [address] [place] [address]- Care Team Providers Care Dicer Operator Name Role Phone Giuliano FRANKLIN, Luis Fernando Haines Primary Care Physician Encounter [facility] [place] Date(s): 01/03/20 - 01/03/[address] [address]- [facility] Encounter Diagnosis Leg pain(Final) - 01/03/20 Discharge Disposition: A-D/C Home Attending Physician: Scottie Thurston MD Admitting Physician: Scottie Thurston MD Referring Physician: Not on Staff, Referring [...] 07/28/19 10:09:00 EDT, Route to Pharmacy Electronically, [facility], september convert to 90daysat patient [...] 0 Refills, Maintenance, 10/05/19 15:24:00 EDT, Nasal [place], [facility]/pharmacy #[id number], 1 sprays Nares, Both 2 times a day, 144.78, cm, 10/05/19 14:50:00 EDT, Height, 89.5, kg, 10/01/19 20:04:00 EDT, Dry... Start Date: 10/05/19 Status: Ordered insulin glargine 100 u/ml subcutaneous solution = 20 units, Subcutaneous Injection, Daily at bedtime, # 10 mL, 0 Refills, Maintenance, 10/05/19 15:24:00 EDT, Injection, [facility]/pharmacy #[id number], 144.78, cm, [...] 15:25:00 EDT, Route to Pharmacy Electronically, [facility]/pharmacy #[id number], 144.78, cm, 10/05/19 14:50:00 EDT, Height, 89.5, kg, 10/01/19 20:04:00 EDT,... Start Date: 10/05/19 Stop Date: 10/26/19 Status: Ordered metoprolol 25 mg oral tablet 12.5 mg, 0.5, tablet, By Mouth, Daily, # 15 tablet, Refills 11, Tot. Refills 11, Maintenance, 07/28/19 10:09:00 EDT, Route to Pharmacy Electronically, [facility], may convert to 90 days at patient request, 127, cm, 07/22/19 11:16:0... Start Date: 07/28/19 Stop Date: 07/22/20 Status: Ordered Norvasc 2.5 mg oral tablet 2.5 mg, 1, tablet, By Mouth, Daily, # 30 tablet, Refills 11, Tot. Refills 11, Maintenance, 07/27/2009:09:00 EDT, Route to Pharmacy Electronically, [facility], y convert to 90 days at patient request, 127, cm, 07/22/19 11:16:00 EDT... Start Date: 07/28/19 Status: Ordered Reglan 5 mg oral tablet 1 tablet = 5 mg, By Mouth, 4 times a day, PRN Nausea & Vomiting, # 120 tablet, 3 Refills, Acute07/27/20 10:11:00 EDT, 07/28/19 10:09:00 EDT, Tablet, [facility], 127, cm, 07/22/19 11:16:00 EDT, [...] 11 Refills, Maintenance, 07/28/19 10:09:00 EDT, Tablet, [facility], may convert to 90 [...] 1 2 3 Oxygen Saturation [94-100 %] 98 % (01/03/20 6:17 AM) 100 % (01/03/20 4:22 AM) 100 % (01/03/20 12:41 AM) Pulse Rate [55-90 bpm] 84 bpm (01/03/20 6:17 AM) 65 bpm (01/03/20 4:22 AM) 60 bpm (01/03/20 12:41 AM) Blood Pressure [90-138/55-84 mm Hg] 134/72mm Hg (01/03/20 6:17 AM) 118/64mm Hg (01/03/20 4:22 AM) 129/42mm Hg (01/03/20 12:41 AM) Respiratory Rate [16-30 br/min] 20 br/min (01/03/20 6:17 AM) 18 br/min (01/03/20 4:22 AM) 22 br/min (01/03/20 12:41 AM) Temperature [96.8-100.4 DegF] 98.6 DegF (01/03/20 12:41 AM) Mode of Delivery (Oxygen) Room air (01/03/20 6:17 AM) Room air (01/03/20 4:22 AM) Room air (01/03/20 12:41 AM) Blood pressure sites Arm, right (01/03/20 6:17 AM) Arm, left (01/03/20 4:22 AM) Arm, left (01/03/20 12:41 AM) Temperature Route Oral (01/03/20 12:41 AM) Social History Social History Type Response Smoking Status Never (less than 100 in lifetime) entered on: 07/22/19 Sex
--- OUTSIDE RECORDS SUMMARY | 2023-03-19 20:04 | XMS_ITS | Continuity of Care Document ---
Author Name Unknown Organization [facility] Address [address] [facility], [address] d Floor, [address] [place] [address]- Care Team Providers Care Pension Agent Name Role Phone Giuliano FRANKLIN, Luis Fernando Haines Primary Care Physician Encounter [facility] [place] Date(s[place] 04/18/19 - 04/28/19 [facility] [address], [address], [address] [place] [address]- [facility] Attending Physician: Mihaela Hawk Admitting Physician: Mihaela [...] Start Date: 02/17/19 Status: Ordered nystatin topical [id number] u/gm powder 1 application, Topically, 3 times a day, apply to skin below vagina, # 15 Gm, 0 Refills, Maintenance, 10/13/18 4:47:30 EDT, Powder Start Date: 10/13/18 Status: Ordered ofloxacin 0.3% ophthalmic solution PLACE 1 DROP IN EACH OPERATED EYE 4X/DAY X1 WEEK. BRING TO OFFICE DAY AFTER SURGERY Start [...]
--- OUTSIDE RECORDS SUMMARY | 2023-03-19 20:04 | XMS_ITS | Continuity of Care Document ---
Author Name Unknown Organization [facility] Address [address] [place] [address]- Care Team Providers Care Fuel Efficient Automobile Designer Name Role Phone Not on Staff, PCP Primary Care Physician Unavail able Encounter [facility] [place] Date(s): 07/10/20 - 08/09/20 [facility] [address] [place], [place] [address] Allergies, Adverse Reactions, Alerts Substance [...] conctact office for apt. for further refills [phone], # 30 tablet, Refills 1, Tot. Refills 1, Maintenance, 08/03/20 11:28:00 EDT, Route to Pharmacy Electronically, [facility], september convert t... Start Date: 08/03/20 Status: Ordered ferrous fumarate 300 mg oral [...] 0 Refills, Maintenance, 10/05/19 15:24:00 EDT, Nasal [place], [facility]/pharmacy #[id number], 1 sprays Nares, Both 2 times a day, 144.78, cm, 10/05/19 14:50:00 EDT, Height, 89.5, kg, 10/01/19 20:04:00 EDT, Dry... Start Date: 10/05/19 Status: Ordered insulin glargine 100 u/ml subcutaneous solution = 20 units, Subcutaneous Injection, Daily at bedtime, # 10 mL, 0 Refills, Maintenance, 10/05/19 15:24:00 EDT, Injection, [facility]/pharmacy #[id number], 144.78, cm, [...] 10/05/19 15:25:00 EDT, Route to Pharmacy Electronically, [facility]/pharmacy #[id number], 144.78, cm, 10/05/19 14:50:00 EDT, Height, 89.5, kg, 10/01/19 20:04:00 EDT,... Start Date: 10/05/19 Stop Date: 10/26/19 Status: Ordered metoprolol 25 mg oral tablet 12.5 mg, 0.5, tablet, By Mouth, Daily, Please conctact office for apt. for further refills [phone], # 15 tablet, Refills 1, Tot. Refills 1, Maintenance, 08/03/20 11:29:00 EDT, Route to Pharmacy Electronically, [facility], may conv... Start Date: 08/03/20 Stop Date: 10/02/20 Status: Ordered Norvasc 2.5 mg oral tablet 2.5 mg, 1, tablet, By Mouth, Daily, Please conctact office for apt. for further refills [phone], #30 tablet, Refills 1, Tot. Refills 1, Maintenance, 08/03/20 11:28:00 EDT, Route to Pharmacy Electronically, [facility], y convert t... Start Date: 08/03/20 Status: Ordered Sm Fiber Capsule TAKE 1 CAPSULE THREE TIMES DAILY IN THE MORNING, AT NOON, AND IN THE EVENING WITH MEALS Start Date: 12/15/18 Status: Ordered ticagrelor 90 mg oral tablet 1 tablet = 90 mg, By Mouth, 2 times a day, Please conctact office for apt. for further refills [phone], # 60 tablet, 1 Refills, Maintenance, 08/03/20 11:29:00 EDT, Tablet, [facility], may convert to 90 days [...]
--- OUTSIDE RECORDS SUMMARY | 2023-03-19 20:04 | XMS_ITS | Continuity of Care Document ---
Author Name Unknown Organization [facility] Address [address] [place] [id number]- Care Team Providers Care Development Eng Name Role Phone Anthony FRANKLIN, Boris Watters Primary Care Physician Encounter [facility] [place] [facility] R [id number] Date(s): 08/03/20 - 09/02/20 [facility] [address] [place] [id number] Allergies, Adverse Reactions, Alerts Substance Reaction [...] 0 Refills, Maintenance, 10/05/19 15:24:00 EDT, Nasal [place], [facility]pharmacy #[id number], 1 sprays Nares, Both 2 [...] Refills, Maintenance, 10/05/19 15:24:00 EDT, Injection, [facility]/pharmacy #[id number], 144.78, cm, [...] EDT, Route to Pharmacy Electronically, [facility]/pharmacy #[id number], 144.78, cm, 10/05/19 14:50:00 EDT, Height, 89.5, kg, 10/01/19 20:04:00 EDT,... Start Date: 10/05/19 Stop Date: 10/26/19 Status: Ordered metoprolol 25 mg oral tablet 12.5 mg, 0.5, tablet, By Mouth, Daily, Please conctact office for apt. for further refills [phone], # 15 tablet, Refills 1, Tot. Refills 1, Maintenance, 08/03/20 11:29:00 EDT, Route to Pharmacy Electronically, [facility], may conv... Start Date: 08/03/20 Stop Date: 10/02/20 Status: Ordered Norvasc 2.5 mg oral tablet 2.5 mg, 1, tablet, By Mouth, Daily, Please conctact office for apt. for further refills [phone], #30 tablet, Refills 1, Tot. Refills 1, Maintenance, 08/03/20 11:28:00 EDT, Route to Pharmacy Electronically, [facility], y convert t... Start Date: [...] conctact office for apt. for further refills [phone], # 60 tablet, 1 Refills, Maintenance, 08/03/20 11:29:00 EDT, Tablet, [facility], may convert to 90 days [...]
--- OUTSIDE RECORDS SUMMARY | 2023-03-19 20:04 | XMS_ITS | Continuity of Care Document ---
Author Name Unknown Organization [facility] Address [address] [place] [address]- Care Team Providers Care Front Office Help Name Role Phone Giuliano FRANKLIN, Luis Fernando Haines Primary Care Physician [place] [facility] [place]/11[place]19 - 12/11/19 [facility] [address] [place] [id number] Attending Physician: Mihaela Hawk Admitting Physician: Mihaela [...] 07/28/19 10:09:00 EDT, Route to Pharmacy Electronically, [facility], may convert to 90daysat patient [...] 0 Refills, Maintenance, 10/05/19 15:24:00 EDT, Nasal [place], [facility]/pharmacy #[id number], 1 sprays Nares, Both 2 times a day, 144.78, cm, 10/05/19 14:50:00 EDT, Height, 89.5, kg, 10/01/19 20:04:00 EDT, Dry... Start Date: 10/05/19 Status: Ordered insulin glargine 100 u/ml subcutaneous solution = 20 units, Subcutaneous Injection, Daily at bedtime, # 10 mL, 0 Refills, Maintenance, 10/05/19 15:24:00 EDT, Injection, [facility]/pharmacy #[id number], 144.78, cm, 10/05/19 [...] 15:25:00 EDT, Route to Pharmacy Electronically, [facility]/pharmacy #[id number], 144.78, cm, 10/05/19 14:50:00 EDT, Height, 89.5, kg, 10/01/19 20:04:00 EDT,... Start Date: 10/05/19 Stop Date: 10/26/19 Status: Ordered metoprolol 25 mg oral tablet 12.5 mg, 0.5, tablet, By Mouth, Daily, # 15 tablet, Refills 11, Tot. Refills 11, Maintenance, 07/28/19 10:09:00 EDT, Route to Pharmacy Electronically, [facility], may convert to 90 days at patient request, 127, cm, 07/22/19 11:16:0... Start Date: 07/28/19 Stop Date: 07/22/20 Status: Ordered Norvasc 2.5 mg oral tablet 2.5 mg, 1, tablet, By Mouth, Daily, # 30 tablet, Refills 11, Tot. Refills 11, Maintenance, 07/27/2009:09:00 EDT, Route to Pharmacy Electronically, [facility], y convert to 90 days at patient request, 127, cm, 07/22/19 11:16:00 EDT... Start Date: 07/28/19 Status: Ordered Reglan 5 mg oral tablet 1 tablet = 5 mg, By Mouth, 4 times a day, PRN Nausea & Vomiting, # 120 tablet, 3 Refills, Acute07/27/20 10:11:00 EDT, 07/28/19 10:09:00 EDT, Tablet, [facility], 127, cm, 07/22/19 11:16:00 EDT, [...] 11 Refills, Maintenance, 07/28/19 10:09:00 EDT, Tablet, [facility], may convert to 90 [...]
--- OUTSIDE RECORDS SUMMARY | 2023-03-19 20:05 | XMS_ITS | Continuity of Care Document ---
Author Name Unknown Organization [facility] ter Address [address] [place] [address]- Care Team Providers Care Perfusionist Name Role Phone Heber FRANKLIN, Kathy Primary Care Physician En[place] [facility] [id number] Date(s): 11/30/20 - 12/05/[address] [address]- Encounter Diagnosis Fall(Final) - 11/30/20 Discharge Disposition: A-Transfer SNF Attending Physician: Tonio Valentin MD Admitting Physician: Isra Mckeon MD Referring Physician: Not on Staff, Referring [...] 0 Refills, Maintenance, 10/05/19 15:29:00 EDT, Tablet, [facility]/pharmacy #[id number], 144.78, cm, 10/05/19 14:50:00 EDT, Height, 89.5, kg, 10/01/19 20:04:00 EDT,Dry Weight Start Date: 10/05/19 Stop Date: 11/04/19 Status: Ordered fluticasone 50 mcg/inh nasal spray 1 sprays, Nares, Both, 2 times a day, # 16 Gm, 0 Refills, Maintenance, 12/01/20 4:52:00 EDT, [place],Partial fill upon patient request if the prescription is for a schedule II opioid drug. Start Date: 12/01/20 Status: Ordered gabapentin 100 mg oral capsule 100 mg, Capsule, By Mouth, 12/05/20 15:00:00 EDT Start Date: 12/05/20 Stop Date: 12/05/20 Status: Completed Insulin Glargine Inj 0.24 mL = 24 [...] opioid drug. Start Date: 12/05/20 Status: Ordered metoprolol 25 mg oral tablet, extended release 12.5 mg, XL Tablet, By Mouth, 12/05/20 9:00:00 EDT Start Date: 12/05/20 Stop Date: 12/05/20 Status: Completed Metoprolol Tartrate 25 mg oral tablet 0.5 tablet, By Mouth, Daily, CONTACT OFFICE FOR FURTHER REFILLS [phone], # 15 tablet, 0 Refills, Maintenance, 10/26/20 12:04:00 EDT, [id number], 128, cm, 10/02/20 15:05:00 EDT, Height, 62, kg, 09/27/20 0:49:00 EDT, Dry Weight Start Date: 10/26/20 Status: Ordered Norvasc 2.5 mg oral tablet 2.5 mg, 1, tablet, By Mouth, Daily, Please conctact office for apt. for further refills [phone], #30 tablet, Refills 1, Tot. Refills 1, Maintenance, 08/03/20 11:28:00 EDT, Route to Pharmacy Electronically, [facility], y convert t... Start Date: 08/03/20 Status: Ordered Norvasc 5 mg oral tablet 2.5 mg, Tablet, By Mouth, 12/05/20 9:00:00 EDT Start Date: 12/05/20 Stop Date: 12/05/20 Status: Completed oxyCODONE 5 mg oral tablet 5 mg, 1, tablet, By Mouth, Every 6 hours, PRN, # 12 tablet, Refills 0, Tot. Refills 0, Acute 12/08/20 22:00:00 EDT, Pain , Severe, 12/05/20 13:36:00 EDT, Do Not Route, Partial fill upon patient request if the prescription is for a schedule II opioid d... Start Date: 12/05/20 Stop Date: 12/08/20 Status: Ordered oxyCODONE 5 mg oral tablet 5 mg, Tablet, By Mouth, Every 6 hours, PRN for Pain , Severe, Routine, 12/01/20 12:08:00 EDT Start Date: 12/01/20 Stop Date: 12/08/20 Status: Ordered rifAXIMin 550 mg oral tablet [...] conctact office for apt. for further refills [phone], # 60 tablet, 1 Refills, Maintenance, 08/03/20 11:29:00 EDT, Tablet, [facility], may convert to 90 days [...] Exam Date Time Procedure Performing Provider Status 12/02/20 2:27 PM Humerus Min 2 Views Left Chacha Acharya sa; Auth (Verified) Notes: (Humerus Min 2 Views Left) Reason For Exam: Pain RESULT: Humerus Min 2 Views Left Shoulder Min 2 Views Left, Humerus Min 2 Views Left, views Reason: Pain; Clinical Question(s): Fracture COMPARISON: None. FINDINGS: No fracture or dislocation. Mild glenohumeral joint space narrowing and marginal spurring. Mild degenerative changes of the AC joint. The portion of the clavicle included on the exam is normal. No calcification of the rotator cuff. IMPRESSION: No fracture or dislocation. WSN: [id number] Ordering Physician: Shea Walters Dictated By: Osbaldo Lyon MD Dictated Date/Time: 12/02/20 4:18 pm Reviewed By: Osbaldo Lyon MD Signed By: Osbaldo Lyon MD Signed Date/Time: 12/02/20 4:18 pm Transcribed By: KEYSHA Transcribed Date/Time: 12/02/20 4:15 pm * Exam Date Time Procedure Performing Provider Status 12/02/20 2:27 PM Shoulder Min 2 Views Left Nidia Acharya ssa; Auth (Verified) Notes: (Shoulder Min 2 Views Left) Reason For Exam: Pain RESULT: Shoulder Min 2 Views Left Shoulder Min 2 Views Left, Humerus Min 2 Views Left, views Reason: Pain; Clinical Question(s): Fracture COMPARISON: None. FINDINGS: No fracture or dislocation. Mild glenohumeral joint space narrowing and marginal spurring. Mild degenerative changes of the AC joint. The portion of the clavicle included on the exam is normal. No calcification of the rotator cuff. IMPRESSION: No fracture or dislocation. WSN: [id number] Ordering Physician: Shea Walters Dictated By: Osbaldo Lyon MD Dictated Date/Time: 12/02/20 4:18 pm Reviewed By: Osbaldo Lyon MD Signed By: Osbaldo Lyon MD Signed Date/Time: 12/02/20 4:18 pm Transcribed By: KEYSHA Transcribed Date/Time: 12/02/20 4:15 pm Vital Signs Most recent to oldest [Reference Range]: 1 2 3 4 Oxygen Saturation [94-100 %] 100 % (12/05/20 11:00 AM) 100 % (12/05/20 5:24 AM) 100 % (12/04/20 10:48 PM) Pulse Rate [55-90 bpm] 51 bpm *L* (12/05/20 11:00 AM) 58 bpm (12/05/20 9:27 AM) 56 bpm (12/05/20 5:24 AM) Blood Pressure [90-138/55-84 mm Hg] 137/58mm Hg (12/05/20 11:00 AM) 144/51mm Hg *H* (12/05/20 9:27 AM) 144/51mm Hg *H* (12/05/20 9:27 AM) Respiratory Rate [16-30 br/min] 18 br/min (12/05/20 4:42 PM) 18 br/min (12/05/20 4:42 PM) 18 br/min (12/05/20 3:42 PM) 18 br/min (12/05/20 3:42 PM) Temperature [96.8-100.4 DegF] 98.1 DegF (12/05/20 11:00 AM) 98.4 DegF (12/05/20 5:24 AM) 97.8 DegF (12/04/20 10:48 PM) Mode of Delivery (Oxygen) Room air (12/05/20 11:00 AM) Room air (12/05/20 5:24 AM) Room air (12/04/20 10:48 PM) Blood pressure sites Arm, right (12/05/20 11:00 AM) Arm, right (12/05/20 5:24 AM) Arm, right (12/04/20 10:48 PM) Temperature Route Oral (12/05/20 11:00 AM) Oral (12/05/20 5:24 AM) Oral (12/04/20 10:48 PM) Social History Social History Type Response Smoking Status Never (less than 100 in lifetime) entered on: 07/22/19 Sex
--- OUTSIDE RECORDS SUMMARY | 2023-03-19 20:05 | XMS_ITS | Continuity of Care Document ---
Author Name Unknown Organization [facility] Address [address] [place] [id number]- Care Team Providers Care Caregivers Non Medical Name Role Phone Anthony FRANKLIN, Boris Watters Primary Care Physician [facility] [id number] Date(s): 05/19/20 - 09/16/20 [facility] [address] [place] [id number] Attending Physician: Forrest Pace MD [...] 0 Refills, Maintenance, 10/05/19 15:24:00 EDT, Nasal [place], [facility]/pharmacy #[id number], 1 sprays Nares, Both 2 [...] 0 Refills, Maintenance, 10/05/19 15:24:00 EDT, Injection, [facility]/pharmacy #[id number], 144.78, cm, 10/05/19 14:50:00 EDT, [...] 10/05/19 15:25:00 EDT, Route to Pharmacy Electronically, [facility]/pharmacy #[id number], 144.78, cm, 10/05/19 14:50:00 EDT, Height, 89.5, kg, 10/01/19 20:04:00 EDT,... Start Date: 10/05/19 Stop Date: 10/26/19 Status: Ordered metoprolol 25 mg oral tablet 12.5 mg, 0.5, tablet, By Mouth, Daily, Please conctact office for apt. for further refills [phone], # 15 tablet, Refills 1, Tot. Refills 1, Maintenance, 08/03/20 11:29:00 EDT, Route to Pharmacy Electronically, [facility], september conv... Start Date: 08/03/20 Stop Date: 10/02/20 Status: Ordered Norvasc 2.5 mg oral tablet 2.5 mg, 1, tablet, By Mouth, Daily, Please conctact office for apt. for further refills [phone], #30 tablet, Refills 1, Tot. Refills 1, Maintenance, 08/03/20 11:28:00 EDT, Route to Pharmacy Electronically, [facility], y convert t... Start Date: [...] conctact office for apt. for further refills [phone], # 60 tablet, 1 Refills, Maintenance, 08/03/20 11:29:00 EDT, Tablet, [facility], may convert to 90 days [...]
--- OUTSIDE RECORDS SUMMARY | 2023-03-19 20:05 | XMS_ITS | Continuity of Care Document ---
Author Name Unknown Organization [facility] Address [address] [place] [address]- Care Team Providers Care Marketing Officer Name Role Phone Kathy Buck MD Primary Care Physician [phone] [place] [facility] [place] 03/26/22 - 04/25/22 [facility] [address] [place] [address]- [place] Allergies, Adverse Reactions, Alerts No Known [...] Gm, 0 Refills, Maintenance, 12/01/20 4:52:00 EDT, [place],Partial fill upon patient request if the prescription is for a schedule II opioid drug. Start Date: 12/01/20 Status: Ordered insulin glargine 100 units/mL subcutaneous solution = 15 units, Subcutaneous Injection, Daily in AM, # 3.6 mL, 0 Refills, Maintenance, 03/08/22 13:57:00 EDT, Injection, [facility], Partial fill [...] 5 Refills, Maintenance, 06/14/21 8:50:00 EST, Capsule, [facility]/pharmacy #[id number], Partial fill upon patient [...] conctact office for apt. for further refills [phone], #30 tablet, Refills 1, Tot. Refills 1, Maintenance, 08/03/20 11:28:00 EDT, Route to Pharmacy Electronically, [facility], y convert t... Start Date: [...] conctact office for apt. for further refills [phone], # 60 tablet, 1 Refills, Maintenance, 08/03/20 11:29:00 EDT, Tablet, [facility], may convert to 90 days [...] capsule, Refills 5, Tot. Refills 5, Maintenance, 04/23/22 9:58:00 EST, Route to Pharmacy Electronically, [facility], Partial fill upon patient request if the prescription is for a schedul... Start Date: 04/23/22 Stop Date: 10/20/22 Status: Ordered ursodiol 400 mg oral capsule 1 capsule = 400 mg, By Mouth, 2 times a day, # 180 capsule, 3 Refills, Maintenance, 04/23/22 7:22:00 EST, [facility], Partial fill upon patient [...] 100 in lifetime) entered on: 06/27/21 Sex Patient Care team information Care Team Personnel Name: Aster Pena RN Position: [facility] RN Member Role: Primary Care Nurse Name: Dunia Phillip RN Position: [facility] RN Member Role: Primary Care Nurse Name: Alon Gonzalez RN Position: [facility] RN Member Role: Primary Care Nurse Name: Jessica Canseco RN Position: [facility] RN Member Role: Primary Care Nurse Name: Erica Archer RN Position: [facility] RN Juwan Member Role: Primary Care Nurse Name: Vickie Lyons Position: [facility] Member Role: Lifetime Consulting Physician Name: Martine Carr RN Position: [facility] RN Member Role: Primary Care Nurse Name: Indira Monsalve RN Position: [facility] RN Member Role: Primary Care Nurse Name: Loren Mcmanus RN Position: [facility] RN Member Role: Primary Care Nurse Name: Marisela Lobo LPN Position: [facility] RN Member Role: Primary Care Nurse Name: Mp Zarco RN Position: [facility] RN Member Role: Primary Care Nurse Name: Britney Henao RN Position: [facility] RN Member Role: Primary Care Nurse Name: Kathy Buck MD Position: [facility] Member Role: PCP Address: Address: [address] [place] [id number] Name: Blayne Hughes RN Position: S RN Member Role: Primary Care Nurse Name: Norma Art RN Position: S RN Member Role: Primary Care Nurse Name: Mecca Boyd RN Position: S RN Member Role: Primary Care Nurse Name: Katie Evans RN Position: [facility] RN Member Role: Primary Care Nurse Name: Leonor Mccormick RN Position: [facility] RN Member Role: Primary Care Nurse Name: Paige Morris RN Position: [facility] RN Member Role: Primary Care Nurse Name: Shauna Angela RN Position: [facility] RN Member Role: Primary Care Nurse Name: Trini Starr RN Position: [facility] RN Member Role: Primary Care Nurse Name: Susie Monson RN Position: [facility] RN Member Role: Primary Care Nurse Name: Meena Castro RN Position: [facility] RN Member Role: Primary Care Nurse Care Team Related Persons Name: PAIGE TALBERT Address: [place] [address] Name: CAMRON VELASQUEZ Address: [place] [address] Name: ANTIONE SETHI Address: home [address] [place] [address]
--- OUTSIDE RECORDS SUMMARY | 2023-03-19 20:05 | XMS_ITS | Continuity of Care Document ---
Author Name Unknown Organization [facility] ter Address [address] [place] [address]- Care Team Providers Care Content Strategy Lead Name Role Phone Heber FRANKLIN, Kathy Primary Care Physician Encounter [facility] [place] Date(s): 03/04/22 - 03/08/[address] [address]- Encounter Diagnosis Difficulty speaking(Final) - 03/04/22 Numbness(Final) - 03/04/22 Hyperglycemia(Final) - 03/04/22 Discharge Disposition: A-D/C Home Attending Physician: Minor Woodall MD Admitting Physician: Dariana Boyer MD Referring Physician: Not on Staff, Referring [...] 0 Refills, Maintenance, 10/05/19 15:29:00 EDT, Tablet, [facility]/pharmacy #[id number], 144.78, cm, 10/05/19 14:50:00 EDT, Height, 89.5, kg, 10/01/19 20:04:00 EDT,Dry Weight Start Date: 10/05/19 Stop Date: 11/04/19 Status: Ordered fluticasone 50 mcg/inh nasal spray 1 sprays, Nares, Both, 2 times a day, # 16 Gm, 0 Refills, Maintenance, 12/01/20 4:52:00 EDT, [place],Partial fill upon patient request if the prescription is for a schedule II opioid drug. Start Date: 12/01/20 Status: Ordered insulin glargine 100 units/mL subcutaneous solution = 15 units, Subcutaneous Injection, Daily in AM, # 3.6 mL, 0 Refills, Maintenance, 03/08/22 13:57:00 EDT, Injection, [facility], Partial fill upon patient request if [...] 5 Refills, Maintenance, 06/14/21 8:50:00 EST, Capsule, [facility]/pharmacy #[id number], Partial fill upon patient request [...] conctact office for apt. for further refills [phone], #30 tablet, Refills 1, Tot. Refills 1, Maintenance, 08/03/20 11:28:00 EDT, Route to Pharmacy Electronically, [facility], y convert t... Start Date: [...] conctact office for apt. for further refills [phone], # 60 tablet, 1 Refills, Maintenance, 08/03/20 11:29:00 EDT, Tablet, [facility], may convert to 90 days [...] Exam Date Time Procedure Performing Provider Status 03/04/22 5:42 PM Chest 2 Views Frontal and Lat Marie Gonzales; Auth (Verified) Notes: (Chest 2 Views Frontal and Lat) Reason For Exam: Cough RESULT: Chest 2 Views Frontal and Lat Chest 2 Views Frontal and Lat Reason: Cough; Clinical Question(s): Pneumonia COMPARISON: [facility], most recent dated 02/21/2022 FINDINGS: LINES AND TUBES: None. LUNGS AND PLEURA: The lung volumes are low which accentuates the cardiac silhouette and pulmonary vasculature and causes crowding of bronchovascular markings at the bases. No definite focal consolidation seen. No pleural effusion. No pneumothorax. HEART, MEDIASTINUM AND ANIKET: Heart is normal in size. Normal mediastinal and hilar contour. BONES AND SOFT TISSUES: No acute abnormality. Redemonstrated is a marked anterior wedge compression deformity at the thoracolumbar junction. IMPRESSION: Low lung volumes with bilateral bronchovascular crowding. No definite focal consolidation seen. WSN: [id number] Ordering Physician: Doreen Hall Dictated By: Marli Escobar MD Dictated Date/Time: 03/04/22 5:50 pm Reviewed By: Marli Escobar MD Signed By: Marli Escobar MD Signed Date/Time: 03/04/22 5:50 pm Transcribed By: KEYSHA Transcribed Date/Time: 03/04/22 5:48 pm Vital Signs Most recent to oldest [Reference Range]: 1 2 3 Height 140 cm (03/08/22 4:57 AM) 140 cm (03/08/22 12:10 AM) 140 cm (03/07/22 7:13 PM) Weight 67 kg (03/04/22 7:42 PM) 69.7 kg (03/04/22 7:31 PM) Oxygen Saturation [94-100 %] 100 % (03/08/22 10:46 AM) 100 % (03/08/22 7:59 AM) 99 % (03/08/22 4:57 AM) Pulse Rate [55-90 bpm] 85 bpm (03/08/22 10:46 AM) 83 bpm (03/08/22 7:59 AM) 55 bpm (03/08/22 4:57 AM) Body Mass Index [18.5-24.99 kg/m2] 34.18 kg/m2 *>HHI* (03/04/22 7:42 PM) Blood Pressure [90-138/55-84 mm Hg] 135/54mm Hg (03/08/22 10:46 AM) 153/76mm Hg *H* (03/08/22 7:59 AM) 151/55mm Hg *H* (03/08/22 4:57 AM) Respiratory Rate [16-30 br/min] 16 br/min (03/08/22 11:23 AM) 18 br/min (03/08/22 10:46 AM) 18 br/min (03/08/22 7:59 AM) Temperature [96.8-100.4 DegF] 98.1 DegF (03/08/22 10:46 AM) 98.5 DegF (03/08/22 7:59 AM) 97.9 DegF (03/08/22 4:57 AM) Mode of Delivery (Oxygen) Room air (03/08/22 10:46 AM) Room air (03/08/22 7:59 AM) Room air (03/08/22 4:57 AM) Blood pressure sites Arm, right (03/08/22 10:46 AM) Arm, right (03/08/22 7:59 AM) Arm, right (03/08/22 4:57 AM) Temperature Route Oral (03/08/22 10:46 AM) Oral (03/08/22 7:59 AM) Oral (03/08/22 4:57 AM) Dry Weight 67 kg (03/04/22 7:42 PM) Weight Obtained Via Bed scale (03/04/22 7:31 PM) Social History Social History Type Response Smoking Status Never (less than 100 in lifetime) entered on: 06/27/21 Sex Note * [facility] , CIS S: TRANSCRIBE Marli Escobar MD: VERIFY Event Display: Result: Authored Date: Chest 2 Views Frontal and Lat Reason: Cough; Clinical Question(s): Pneumonia COMPARISON: [facility], most recent dated 02/21/2022 FINDINGS: LINES AND TUBES: None. LUNGS AND PLEURA: The lung volumes are low which accentuates the cardiac silhouette and pulmonary vasculature and causes crowding of bronchovascular markings at the bases. No definite focal consolidation seen. No pleural effusion. No pneumothorax. HEART, MEDIASTINUM AND ANIKET: Heart is normal in size. Normal mediastinal and hilar contour. BONES AND SOFT TISSUES: No acute abnormality. Redemonstrated is a marked anterior wedge compression deformity at the thoracolumbar junction. IMPRESSION: Low lung volumes with bilateral bronchovascular crowding. No definite focal consolidation seen. WSN: [id number] Ordering Physician: Doreen Hall Dictated By: Marli Escobar MD Dictated Date/Time: 03/04/22 5:50 pm Reviewed By: Marli Escobar MD Signed By: Marli Escobar MD Signed Date/Time: 03/04/22 5:50 pm Transcribed By: KEYSHA Transcribed Date/Time: 03/04/22 5:48 pm Patient Care team information Personnel Name: Kathy Buck MD Address: Address: [address] [place] [id number]
--- OUTSIDE RECORDS SUMMARY | 2023-03-19 20:05 | XMS_ITS | Continuity of Care Document ---
Author Name Unknown Organization [facility] ter Address [address] [place] [id number]- Care Team Providers Care Doper Operator Name Role Phone Giuliano FRANKLIN, Luis Fernando Haines Primary Care Physician Encounter [facility] [place] Date(s): 09/30/19 - 10/06/[address] [address]- [facility] Discharge Disposition: A-D/C Home Attending Physician: Diane Whitaker MD Admitting Physician: Candice Fairbanks MD Referring Physician: Not on Staff, Referring [...] 07/28/19 10:09:00 EDT, Route to Pharmacy Electronically, [facility], september convert to 90daysat [...] 0 Refills, Maintenance, 10/05/19 15:24:00 EDT, Nasal [place], [facility]/pharmacy #[id number], 1 sprays [...] Date: 10/05/19 Stop Date: 10/26/19 Status: Ordered methylcellulose 500 mg oral tablet TAKE 2 TABLETS ONCE DAILY. DRINK 8 OUNCES WITH TABLETS Start Date: 12/15/18 Status: Ordered metoprolol 25 mg oral tablet 12.5 mg, 0.5, tablet, By Mouth, Daily, # 15 tablet, Refills 11, Tot. Refills 11, Maintenance, 07/28/19 10:09:00 EDT, Route to Pharmacy Electronically, [facility], may convert to 90 days at patient request, 127, cm, 07/22/19 11:16:0... Start Date: 07/28/19 Stop Date: 07/22/20 Status: Ordered Norvasc 2.5 mg oral tablet 2.5 mg, 1, tablet, By Mouth, Daily, # 30 tablet, Refills 11, Tot. Refills 11, Maintenance, 07/27/2009:09:00 EDT, Route to Pharmacy Electronically, [facility], y convert to 90 days at patient request, 127, cm, 07/22/19 11:16:00 EDT... Start Date: 07/28/19 Status: Ordered nystatin topical 508691 u/gm powder 1 application, Topically, 3 times [...] Acute07/27/20 10:11:00 EDT, 07/28/19 10:09:00 EDT, Tablet, [facility], 127, cm, 07/22/19 11:16:00 [...] 11 Refills, Maintenance, 07/28/19 10:09:00 EDT, Tablet, [facility], may convert to 90 [...] DM2 (diabetes mellitus, type 2)(Confirmed) Active 1hands Procedures Procedure Date Related Diagnosis Body Site Status Colonoscopy, flexible; with removal of tumor(s), polyp(s), or other lesion(s) by snare technique 10/05/19 Completed EGD - Esophagogastroduodenoscopy 10/04/19 Completed Results Orders for Microbiology Reports Name Date Urine Culture (URINE CULTURE) 09/30/19 Microbiology Reports TEST:Urine Culture STATUS:Auth (Verified) BODY SITE: SOURCE:URINE COLLECTED DATE/TIME:09/30/19 5:45 PM Urine Culture SPECIMEN DESCRIPTION : URINE CLEAN CATCH/MIDSTREAM SPECIAL REQUESTS : NONE CULTURE : Mixed bacterial cesar, indicative of urogenital contamination. REPORT STATUS : FINAL 10/01/2019 Radiology Reports * Exam Date Time Procedure Performing Provider Status 09/30/19 6:47 PM Chest Portable Ana Laura Rivas; Betty (Verified) Notes: (Chest Portable) Reason For Exam: Shortness of Breath RESULT: Chest Portable PROCEDURE: Chest Portable CLINICAL INDICATION: 68 years old Female with Shortness of Breath; Clinical Question(s): CHF; Hx ofPresent Illness: pt reports increasing shortness of breathe since last night. Worsens if lying flator exerting herself.; Other Objective Findings: AOx3, pt has good effort, speaking clear and complete sentences. COMPARISON: Multiple exams between 10/12/2018 and 07/09/2019. FINDINGS: Portable AP erect view of the chest performed at 6:23 PM. Lines and tubes: Negative and EKG Lungs and pleura: Shallow inspiration. Possible faint hazy opacities bilateral mid lungs and lung bases RIGHT more than LEFT. Lungs otherwise clear as visualized.. No pleural effusions.No evidence ofpneumothorax. Heart, mediastinum and zeferino: Mild tortuosity and calcification of the thoracic aorta noted. Suspectmild cardiomegaly unchanged without pulmonary venous hypertension. Bones and soft tissues: Mild to moderate degenerative endplate changes in the thoracic spine with mild unchanged thoracic dextroscoliosis and mild diffuse osteopenia. Chronic cephalad dislocation of the LEFT clavicle with respect to the LEFT acromion unchanged. IMPRESSION: 1. Subtle findings suggestive of possible mild atypical pneumonia. Awaiting results of COVID 19 best. 2. Mild cardiomegaly suspected without pulmonary venous hypertension, edema pleural effusions. 3. Chronic dislocation LEFT AC joint. Degenerative changes in the extra scoliosis thoracic spine stable. Thank you for allowing me to participate in the care of this patient. WSN: [id number] Ordering Physician: Edna Castaneda Dictated By: Charanjit Haas MD Dictated Date/Time: 09/30/19 7:02 pm Reviewed By: Charanjit Haas MD Signed By: Charanjit Haas MD Signed Date/Time: 09/30/19 7:02 pm Transcribed By: KEYSHA Transcribed Date/Time: 09/30/19 6:54 pm Vital Signs Most recent to oldest [Reference Range]: 1 2 3 4 Height 144.78 cm (10/06/19 12:01 AM) 144.78 cm (10/05/19 7:46 PM) 144.78 cm (10/05/19 2:50 PM) Weight 73.4 kg (10/05/19 2:50 PM) 73.4 kg (10/01/19 10:10 PM) 89.5 kg (10/01/19 8:03 PM) Oxygen Saturation [94-100 %] 100 % (10/06/19 8:28 AM) 98 % (10/06/19 12:01 AM) 98 % (10/05/19 7:46 PM) Pulse Rate [55-90 bpm] 65 bpm (10/06/19 8:28 AM) 94 bpm *H* (10/06/19 7:52 AM) 94 bpm *H* (10/06/19 12:01 AM) Body Mass Index [18.5-24.99] 35.02 *>HHI* (10/05/19 2:50 PM) 35.02 *>HHI* (10/01/19 10:10 PM) 42.7 *>HHI* (10/01/19 8:03 PM) Blood Pressure [90-138/55-84 mm Hg] 141/71mm Hg *H* (10/06/19 8:28 AM) 132/53mm Hg (10/06/19 7:56 AM) 132/53mm Hg (10/06/19 7:52 AM) 132/53mm Hg (10/06/19 7:52 AM) Respiratory Rate [16-30 br/min] 18 br/min (10/06/19 8:28 AM) 18 br/min (10/06/19 12:01 AM) 16 br/min (10/05/19 7:46 PM) Temperature [96.8-100.4 DegF] 98.2 DegF (10/06/19 8:28 AM) 98.3 DegF (10/06/19 12:01 AM) 98.6 DegF (10/05/19 7:46 PM) Liters per Minute 0 L/min (10/04/19 3:52 PM) 0 L/min (10/04/19 12:05 PM) Mode of Delivery (Oxygen) Room air (10/06/19 8:28 AM) Room air (10/06/19 12:01 AM) Room air (10/05/19 7:46 PM) Blood pressure sites Arm, left (10/06/19 8:28 AM) Arm, right (10/06/19 12:01 AM) Arm, left (10/05/19 7:46 PM) Temperature Route Oral (10/06/19 8:28 AM) Oral (10/06/19 12:01 AM) Oral (10/05/19 7:46 PM) Dry Weight 89.5 kg (10/01/19 8:03 PM) Weight Obtained Via Bed scale (10/01/19 10:10 PM) Bed scale (10/01/19 7:04 PM) Social History Social History Type Response Smoking Status Never (less than 100 in lifetime) entered on: 07/22/19 Sex
--- OUTSIDE RECORDS SUMMARY | 2023-03-19 20:05 | XMS_ITS | Continuity of Care Document ---
Author Name Unknown Organization [facility] Address [address] [place] [address]- Care Team Providers Care Door Operator Name Role Phone Jennifer Green DO Primary Care Physician Encounter [facility] [place] Date(s): 10/04/20 - 11/03/20 [facility] [address] [place], [place] [address] Referring Physician: Leandra Rudolph NP Referring Physician: Temitope Ortiz MD Allergies, Adverse [...] 10/05/19 15:25:00 EDT, Route to Pharmacy Electronically, [facility]/pharmacy #[id number], 144.78, cm, 10/05/19 14:50:00 EDT, Height, 89.5, kg, 10/01/19 20:04:00 EDT,... Start Date: 10/05/19 Stop Date: 10/26/19 Status: Ordered Metoprolol Tartrate 25 mg oral tablet 0.5 tablet, By Mouth, Daily, CONTACT OFFICE FOR FURTHER REFILLS [phone], # 15 tablet, 0 Refills, Maintenance, 10/26/20 12:04:00 EDT, [facility] STORE [id number], 128, cm, 10/02/20 15:05:00 EDT, Height, 62, kg, 09/27/20 0:49:00 EDT, Dry Weight Start Date: 10/26/20 Status: Ordered Norvasc 2.5 mg oral tablet 2.5 mg, 1, tablet, By Mouth, Daily, Please conctact office for apt. for further refills [phone], #30 tablet, Refills 1, Tot. Refills 1, [...] conctact office for apt. for further refills [phone], # 60 tablet, 1 Refills, Maintenance, 08/03/20 [...]
--- OUTSIDE RECORDS SUMMARY | 2023-03-19 20:05 | XMS_ITS | Continuity of Care Document ---
Author Name Unknown Organization [facility] ter Address [address] [place] [address]- Care Team Providers Care Wind Commissioning Technician Name Role Phone Heber FRANKLIN, Kathy Primary Care Physician [phone] Encounter [facility] [place] Date(s): 06/04/21 - 06/07/[address] [address]- Encounter Diagnosis Guaiac positive stools(Final) - 06/04/21 Abdominal pain(Final) - 06/04/21 Discharge Disposition: A-D/C Home Attending Physician: Mnoica Gonzalez MD Admitting Physician: Sagrario Yadav MD Referring Physician: Not on Staff, Referring [...] Every 4 hours, PRN for Pain , Moderate, Routine, 06/04/21 9:25:00 EST Start Date: 06/04/21 Stop Date: 06/07/21 Status: Discontinued acetaminophen 500 mg oral tablet 2 tablet [...] 0 Refills, Maintenance, 10/05/19 15:29:00 EDT, Tablet, [facility]/pharmacy #[id number], 144.78, cm, 10/05/19 14:50:00 EDT, Height, 89.5, kg, 10/01/19 20:04:00 EDT,Dry Weight Start Date: 10/05/19 Stop Date: 11/04/19 Status: Ordered fluticasone 50 mcg/inh nasal spray 1 sprays, Nares, Both, 2 times a day, # 16 Gm, 0 Refills, Maintenance, 12/01/20 4:52:00 EDT, [place],Partial fill upon patient request if the prescription [...] opio... Start Date: 08/24/20 Status: Ordered lidocaine 4% topical film 1 patch, Topically, 2 times a day, # 6 each, 0 Refills, Acute 06/08/21 12:59:00 EST, 06/07/21 12:58:00 EST, Film, [facility], Partial fill upon patient request if the prescription is for a schedule II opioid drug., 1 patch Topically 2 ti... Start Date: 06/07/21 Stop Date: 06/08/21 Status: Ordered lidocaine 5% topical film Topically, Daily, 0 Refills, Maintenance, 12/05/20 13:22:00 EDT, Patch, Partial fill upon patient request if the prescription is for a schedule II opioid drug. Start Date: 12/05/20 Status: Ordered Norvasc 2.5 mg oral tablet 2.5 mg, 1, tablet, By Mouth, Daily, Please conctact office for apt. for further refills [phone], #30 tablet, Refills 1, Tot. Refills 1, Maintenance, 08/03/20 11:28:00 EDT, Route to Pharmacy Electronically, [facility], y convert t... Start Date: [...] conctact office for apt. for further refills [phone], # 60 tablet, 1 Refills, Maintenance, 08/03/20 11:29:00 EDT, Tablet, [facility], may convert to 90 days [...] Procedure Date Related Diagnosis Body Site Status Cholecystectomy Completed Vital Signs Most recent to oldest [Reference Range]: 1 2 3 Height 152 cm (06/07/21 7:45 AM) 152 cm (06/07/21 12:09 AM) 152 cm (06/06/21 7:45 PM) Weight 65.4 kg (06/04/21 10:26 PM) 65.4 kg (06/04/21 5:49 PM) Oxygen Saturation [94-100 %] 99 % (06/07/21 7:45 AM) 100 % (06/07/21 12:09 AM) 100 % (06/06/21 7:45 PM) Pulse Rate [55-90 bpm] 74 bpm (06/07/21 7:45 AM) 79 bpm (06/07/21 12:09 AM) 80 bpm (06/06/21 7:45 PM) Body Mass Index [18.5-24.99] 28.31 *H* (06/04/21 10:26 PM) Blood Pressure [90-138/55-84 mm Hg] 168/71mm Hg *H* (06/07/21 7:45 AM) 125/93mm Hg (06/07/21 12:09 AM) 141/64mm Hg *H* (06/06/21 7:45 PM) Respiratory Rate [16-30 br/min] 17 br/min (06/07/21 7:45 AM) 18 br/min (06/07/21 12:09 AM) 18 br/min (06/06/21 11:58 PM) Temperature [96.8-100.4 DegF] 98.4 DegF (06/07/21 7:45 AM) 98.0 DegF (06/07/21 12:09 AM) 98.2 DegF (06/06/21 7:45 PM) Mode of Delivery (Oxygen) Room air (06/07/21 7:45 AM) Room air (06/07/21 12:09 AM) Room air (06/06/21 7:45 PM) Blood pressure sites Arm, left (06/07/21 12:09 AM) Arm, left (06/06/21 7:45 PM) Arm, right (06/06/21 3:13 PM) Temperature Route Oral (06/07/21 7:45 AM) Oral (06/07/21 12:09 AM) Oral (06/06/21 7:45 PM) Dry Weight 65.4 kg (06/04/21 10:26 PM) Weight Obtained Via Bed scale (06/04/21 5:49 PM) Social History Social History Type Response Smoking Status Never (less than 100 in lifetime) entered on: 07/22/19 Sex
--- OUTSIDE RECORDS SUMMARY | 2023-03-19 20:05 | XMS_ITS | Continuity of Care Document ---
Author Name Unknown Organization [facility] ter Address [address] [place] [address]- Care Team Providers Care Mail Service Coordinator Name Role Phone Heber FRANKLIN, Kathy Primary Care Physician [phone] [place]counter [facility] [place] Date(s): 07/13/22 - 07/13/[address] [address]- Encounter Diagnosis Hyperglycemia(Final) - 07/14/22 Discharge Disposition: A-D/C Home Attending Physician: Lona Diamond DO Admitting Physician: Lona Diamond DO Referring Physician: Not on Staff, Referring MD Allergies, Adverse Reactions, Alerts No Known Allergies Immunizations Given and Recorded Vaccine Date Status Refusal Reason SARS-CoV-2 mRNA ([id number]) vax 07/09/21 Recorded SARS-CoV-2 (COVID-19) Ad26 vaccine [...] Gm, 0 Refills, Maintenance, 12/01/20 4:52:00 EDT, [place],Partial fill upon patient request if the prescription is for a schedule II opioid drug. Start Date: 12/01/20 Status: Ordered insulin glargine 100 units/mL subcutaneous solution = 15 units, Subcutaneous Injection, Daily in AM, # 3.6 mL, 0 Refills, Maintenance, 03/08/22 13:57:00 EDT, Injection, [facility], Partial fill upon patient request [...] 5 Refills, Maintenance, 06/14/21 8:50:00 EST, Capsule, [facility]/pharmacy #[id number], Partial fill upon patient request if the prescription is for a schedule II opioid drug., 152, cm, 06/07/21 7:45:00 EST, [place]... Start Date: 06/14/21 Status: Ordered MiraLax oral powder for reconstitution = 17 Gm, By Mouth, 2 times a day before breakfast and dinne, dissolve in water before taking, # 527Gm, 11 Refills, Maintenance, 05/28/21 13:46:00 EST, REC Powder, [facility]/pharmacy #[id number], Partial fill upon patient request if the prescription is for a sche... Start Date: 05/28/21 Status: Ordered Norvasc 2.5 mg oral tablet 2.5 mg, 1, tablet, By Mouth, Daily, Please conctact office for apt. for further refills [phone], #30 tablet, Refills 1, Tot. Refills 1, [...] 10/20/22 9:58:00 EDT, Route to Pharmacy Electronically, [facility]/pharmacy #[id number], Partial fill upon patient request if the [...] 3 Oxygen Saturation [94-100 %] 100 % (07/13/22 11:43 PM) 100 % (07/13/22 10:03 PM) 100 % (07/13/22 7:45 PM) Pulse Rate [55-90 bpm] 88 bpm (07/13/22 11:43 PM) 83 bpm (07/13/22 10:03 PM) 90 bpm (07/13/22 7:45 PM) Blood Pressure [90-138/55-84 mm Hg] 110/67mm Hg (07/13/22 11:43 PM) 101/73mm Hg (07/13/22 10:03 PM) 142/74mm Hg *H* (07/13/22 7:45 PM) Respiratory Rate [16-30 br/min] 24 br/min (07/13/22 11:43 PM) 24 br/min (07/13/22 10:03 PM) 20 br/min (07/13/22 7:45 PM) Temperature [96.8-100.4 DegF] 98 DegF (07/13/22 11:43 PM) 98.2 DegF (07/13/22 6:29 PM) 99.1 DegF (07/13/22 2:41 PM) Mode of Delivery (Oxygen) Room air (07/13/22 11:43 PM) Room air (07/13/22 10:03 PM) Room air (07/13/22 7:45 PM) Blood pressure sites Arm, right (07/13/22 11:43 PM) Arm, right (07/13/22 10:03 PM) Arm, right (07/13/22 7:45 PM) Temperature Route Oral (07/13/22 11:43 PM) Oral (07/13/22 6:29 PM) Oral (07/13/22 2:41 PM) Social History Social History Type Response Smoking Status Never (less than 100 in lifetime) entered on: 06/27/21 Sex Female Note * Halima Wilson MD: PERFORM Event Display: Patient Education Leaflets Authored Date: Diabetes with High Blood Sugar ?? 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 tratamiento por tener un nivel alto de az??car en la dipak (hiperglucemia). Kelly puede deberse a cristobal infecci??n u otra [...] antes del desayuno. Tambi??n antes de la quality control head. Si recibe insulina, tambi??n anote la dosis [...] sistema de control continuo de la glucosa. Kelly es para ayudar a que usted y [...] el tratamiento que le indic?? el proveedor. Kelly sucede especialmente si usted adem??s presenta cetonas [...] renee ?? Last Reviewed Date: 2021 ?? [id number] [employer]. Todos los derechos reservados. Esta informaci??n no pretende sustituir la atenci??n m??dica profesional. S??lo shannon m??dico puede diagnosticar y tratar un problema de domenica. ?? Patient Care team information Care Team Personnel Name: Aster Pena RN Position: [facility] RN Member Role: Primary Care Nurse Name: Dunia Phillip RN Position: [facility] RN Member Role: Primary Care Nurse Name: Lisette Trejo RN Position: [facility] RN Member Role: Primary Care Nurse Name: Jessica Canseco RN Position: [facility] RN Member Role: Primary Care Nurse Name: Erica Archer RN Position: [facility] RN Supv Member Role: Primary Care Nurse Name: Vickie Lyons Position: [facility] Outreach Member Role: Lifetime Consulting Physician Name: Martine Carr RN Position: [facility] RN Member Role: Primary Care Nurse Name: Indira Monsalve RN Position: [facility] RN Member Role: Primary Care Nurse Name: Loren Mcmanus RN Position: [facility] RN Member Role: Primary Care Nurse Name: Marisela Lobo LPN Position: [facility] RN Member Role: Primary Care Nurse Name: Mp Zarco RN Position: [facility] RN Member Role: Primary Care Nurse Name: Kathy Buck MD Position: [facility] Outreach Member Role: PCP Address: Address: [address] [place] [address]- Name: Blayne Hughes RN Position: [facility] RN Member Role: Primary Care Nurse Name: Norma Art RN Position: [facility] RN Member Role: Primary Care Nurse Name: Mecca Boyd RN Position: [facility] RN Member Role: Primary Care Nurse Name: Katie Evans RN Position: [facility] RN Member Role: Primary Care Nurse Name: Leonor Mccormick RN Position: [facility] RN Member Role: Primary Care Nurse Name: Hortensia Garrison Position: [facility] Outreach Member Role: Lifetime Consulting Physician Name: Paige Morris RN Position: [facility] RN Member Role: Primary Care Nurse Name: Shauna Angela RN Position: [facility] RN Member Role: Primary Care Nurse Name: Trini Starr RN Position: [facility] RN Member Role: Primary Care Nurse Name: Susie Monson RN Position: [facility] RN Member Role: Primary Care Nurse Name: Meena Castro RN Position: [facility] RN Member Role: Primary Care Nurse Name: Halima Wilson MD Position: [facility] Resident Member Role: ED Resident Address: Address: [address] [place] [address] Name: Consuelo Joaquin RN Position: [facility] ED RN W/OE and Tasks Member Role: Patient Care Provider Name: Lona Diamond DO Position: [facility] ED Medicine MD Member Role: Admitting Physician Address: Address: [address] [place] [address]- Care Team Related Persons Name: PAIGE TALBERT Address: [place] [address] Name: CAMRON VELASQUEZ Address: [place] [address] Name: ANTIONE SETHI Address: home [address] [address]
--- OUTSIDE RECORDS SUMMARY | 2023-03-19 20:05 | XMS_ITS | Continuity of Care Document ---
Author Name Unknown Organization [facility] Address [address] [place] [address]- Care Team Providers Care Editor & Co Founder Name Role Phone Kathy Buck MD Primary Care Physician [id number] Date(s[facility] 09/13/21 - 01/11/22 [facility] [address] [place] [address]- Attending Physician: Jose Mccord MD Admitting Physician: Jose Mccord MD Referring Physician: Kathy Buck MD Allergies, [...] 0 Refills, Maintenance, 10/05/19 15:29:00 EDT, Tablet, [facility]/pharmacy #[id number], 144.78, cm, 10/05/19 14:50:00 EDT, Height, 89.5, kg, 10/01/19 20:04:00 EDT,Dry Weight Start Date: 10/05/19 Stop Date: 11/04/19 Status: Ordered fluticasone 50 mcg/inh nasal spray 1 sprays, Nares, Both, 2 times a day, # 16 Gm, 0 Refills, Maintenance, 12/01/20 4:52:00 EDT, [place],Partial fill upon patient request if the prescription [...] 5 Refills, Maintenance, 06/14/21 8:50:00 EST, Capsule, [facility]/pharmacy #[id number], Partial fill upon patient request if the prescription is for a schedule II opioid drug., 152, cm, 06/07/21 7:45:00 EST, [place]... Start Date: 06/14/21 Status: Ordered MiraLax oral powder for reconstitution = 17 Gm, By Mouth, 2 times a day before breakfast and dinne, dissolve in water before taking, # 527Gm, 11 Refills, Maintenance, 05/28/21 13:46:00 EST, REC Powder, [facility]/pharmacy #[id number], Partial fill upon patient request if the prescription is for a sche... Start Date: 05/28/21 Status: Ordered Norvasc 2.5 mg oral tablet 2.5 mg, 1, tablet, By Mouth, Daily, Please conctact office for apt. for further refills [phone], #30 tablet, Refills 1, Tot. Refills 1, Maintenance, 08/03/20 11:28:00 EDT, Route to Pharmacy Electronically, [facility], y judd tKatey.. Start Date: 08/03/20 Status: Ordered ondansetron 4 [...] conctact office for apt. for further refills [phone], # 60 tablet, 1 Refills, Maintenance, 08/03/20 11:29:00 EDT, Tablet, [facility], may convert to 90 [...] Personnel Name: Kathy Buck MD Address: [address] [place], [place] [address]
--- OUTSIDE RECORDS SUMMARY | 2023-03-19 20:05 | XMS_ITS | Continuity of Care Document ---
Author Name Unknown Organization [facility] ter Address [address] [place] [id number]- Care Team Providers Care Ship Steward Name Role Phone Luis Fernando Nobles MD Primary Care Physician Encounter [facility] [id number] Date(s): 11/03/19 - 11/04/[address] [address]- [facility] Encounter Diagnosis Rash(Final) - 11/04/19 Discharge Disposition: A-D/C Home Attending Physician: Shante Villa MD Admitting Physician: Shante Villa MD Referring Physician: Not on Staff, Referring [...] 07/28/19 10:09:00 EDT, Route to Pharmacy Electronically, [facility], may convert to 90daysat patient request, 127, cm, 07/22/19 11:16:00 EDT,... Start Date: 07/28/19 Status: Ordered ferrous fumarate 300 mg oral tablet 1 tablet = 300 mg, By Mouth, Daily, # 30 tablet, 0 Refills, Maintenance, 10/05/19 15:29:00 EDT, Tablet, [facility]/pharmacy #[id number], 144.78, cm, 10/05/19 14:50:00 EDT, [...] 0 Refills, Maintenance, 10/05/19 15:24:00 EDT, Nasal [place], [facility]/pharmacy #[id number], 1 sprays Nares, Both 2 times a day, 144.78, cm, 10/05/19 14:50:00 EDT, Height, 89.5, kg, 10/01/19 20:04:00 EDT, Dry... Start Date: 10/05/19 Status: Ordered insulin glargine 100 u/ml subcutaneous solution = 20 units, Subcutaneous Injection, Daily at bedtime, # 10 mL, 0 Refills, Maintenance, 10/05/19 15:24:00 EDT, Injection, [facility]/pharmacy #[id number], 144.78, cm, 10/05/19 14:50:00 EDT, [...] 15:25:00 EDT, Route to Pharmacy Electronically, [facility]/pharmacy #[id number], 144.78, cm, 10/05/19 14:50:00 EDT, Height, 89.5, kg, 10/01/19 20:04:00 EDT,... Start Date: 10/05/19 Stop Date: 10/26/19 Status: Ordered metoprolol 25 mg oral tablet 12.5 mg, 0.5, tablet, By Mouth, Daily, # 15 tablet, Refills 11, Tot. Refills 11, Maintenance, 07/28/19 10:09:00 EDT, Route to Pharmacy Electronically, [facility], may convert to 90 days at patient request, 127, cm, 07/22/19 11:16:0... Start Date: 07/28/19 Stop Date: 07/22/20 Status: Ordered Norvasc 2.5 mg oral tablet 2.5 mg, 1, tablet, By Mouth, Daily, # 30 tablet, Refills 11, Tot. Refills 11, Maintenance, 07/27/2009:09:00 EDT, Route to Pharmacy Electronically, [facility], y convert to 90 days at patient request, 127, cm, 07/22/19 11:16:00 EDT... Start Date: 07/28/19 Status: Ordered Reglan 5 mg oral tablet 1 tablet = 5 mg, By Mouth, 4 times a day, PRN Nausea & Vomiting, # 120 tablet, 3 Refills, Acute07/27/20 10:11:00 EDT, 07/28/19 10:09:00 EDT, Tablet, [facility], 127, cm, 07/22/19 11:16:00 [...] 11 Refills, Maintenance, 07/28/19 10:09:00 EDT, Tablet, [facility], may convert to [...] 3 Oxygen Saturation [94-100 %] 100 % (11/04/19 2:45 PM) 100 % (11/04/19 10:36 AM) 100 % (11/04/19 5:58 AM) Pulse Rate [55-90 bpm] 68 bpm (11/04/19 2:45 PM) 75 bpm (11/04/19 10:36 AM) 70 bpm (11/04/19 5:58 AM) Blood Pressure [90-138/55-84 mm Hg] 149/50mm Hg *H* (11/04/19 2:45 PM) 154/51mm Hg *H* (11/04/19 10:36 AM) 165/55mm Hg *H* (11/04/19 5:58 AM) Respiratory Rate [16-30 br/min] 17 br/min (11/04/19 2:45 PM) 16 br/min (11/04/19 10:36 AM) 20 br/min (11/04/19 5:58 AM) Temperature [96.8-100.4 DegF] 98 DegF (11/04/19 2:45 PM) 97.6 DegF (11/04/19 10:36 AM) 97.6 DegF (11/04/19 5:58 AM) Mode of Delivery (Oxygen) Room air (11/04/19 2:45 PM) Room air (11/04/19 10:36 AM) Room air (11/04/19 5:58 AM) Blood pressure sites Arm, left (11/04/19 2:45 PM) Arm, left (11/04/19 10:36 AM) Arm, right (11/04/19 5:58 AM) Temperature Route Oral (11/04/19 2:45 PM) Oral (11/04/19 10:36 AM) Oral (11/04/19 5:58 AM) Social History Social History Type Response Smoking Status Never (less than 100 in lifetime) entered on: 07/22/19 Sex
--- OUTSIDE RECORDS SUMMARY | 2023-03-19 20:06 | XMS_ITS | Continuity of Care Document ---
Author Name Unknown Organization [facility] ter Address [address] [place] [address]- Care Team Providers Care Buffing Wheel Former Automatic Name Role Phone Luis Fernando Nobles MD Primary Care Physician Encounter [facility] Date(s): 05/06/19 - 05/06/[address] [address]- [facility] Attending Physician: Luis Fernando Nobles MD Allergies, Adverse [...] Start Date: 02/17/19 Status: Ordered nystatin topical 925757 u/gm powder 1 application, Topically, 3 times [...]
--- OUTSIDE RECORDS SUMMARY | 2023-03-19 20:06 | XMS_ITS | Continuity of Care Document ---
Author Name Unknown Organization [facility] Address [address] [place] [address]- Care Team Providers Care Out Patient Therapist Name Role Phone Dayanna Rosas MD Primary Care Physician Encounter [facility] Date(s): 05/12/22 - 06/11/22 [facility] [address] [place] [id number]- [place] Allergies, Adverse Reactions, Alerts No Known Allergies Immunizations Given and Recorded Vaccine Date Status Refusal Reason SARS-CoV-2 mRNA ([id number]) vax 07/09/21 Recorded SARS-CoV-2 (COVID-19) Ad26 vaccine [...] Refills, Maintenance, 10/05/19 15:29:00 EDT, Tablet, [facility]/pharmacy #[id number], 144.78, cm, 10/05/19 14:50:00 EDT, Height, 89.5, kg, 10/01/19 20:04:00 EDT,Dry Weight Start Date: 10/05/19 Stop Date: 11/04/19 Status: Ordered fluticasone 50 mcg/inh nasal spray 1 sprays, Nares, Both, 2 times a day, # 16 Gm, 0 Refills, Maintenance, 12/01/20 4:52:00 EDT, [place],Partial fill upon patient request if the prescription is for a schedule II opioid drug. Start Date: 12/01/20 Status: Ordered insulin glargine 100 units/mL subcutaneous solution = 15 units, Subcutaneous Injection, Daily in AM, # 3.6 mL, 0 Refills, Maintenance, 03/08/22 13:57:00 EDT, Injection, [facility], Partial fill upon patient request [...] 5 Refills, Maintenance, 06/14/21 8:50:00 EST, Capsule, [facility]/pharmacy #[id number], Partial fill upon patient request if the prescription is for a schedule II opioid drug., 152, cm, 06/07/21 7:45:00 EST, [place]... Start Date: 06/14/21 Status: Ordered MiraLax oral powder for reconstitution = 17 Gm, By Mouth, 2 times a day before breakfast and dinne, dissolve in water before taking, # 527Gm, 11 Refills, Maintenance, 05/28/21 13:46:00 EST, REC Powder, [facility]/pharmacy #[id number], Partial fill upon patient request if the prescription is for a sche... Start Date: 05/28/21 Status: Ordered Norvasc 2.5 mg oral tablet 2.5 mg, 1, tablet, By Mouth, Daily, Please conctact office for apt. for further refills [phone], #30 tablet, Refills 1, Tot. Refills 1, Maintenance, 08/03/20 11:28:00 EDT, Route to Pharmacy Electronically, [facility], y convert t... Start Date: 08/03/20 [...] 10/20/22 9:58:00 EDT, Route to Pharmacy Electronically, [facility]/pharmacy #[id number], Partial fill upon patient request if the [...] Care Nurse Name: Dayanna Rosas MD Position: [facility] Outreach Member Role: PCP Address: Address: [address] [place] [id number] Name: Erica Archer RN Position: [facility] RN Supv Member Role: Primary Care Nurse Name: Vickie Lyons Position: [facility] Outreach Member Role: Lifetime Consulting Physician Name: Martine Carr RN Position: [facility] RN Member Role: Primary Care Nurse Name: Indira Monsalve RN Position: [facility] RN Member Role: Primary Care Nurse Name: Loren Mcmanus RN Position: [facility] RN Member Role: Primary Care Nurse Name: Marisela Lobo LPN Position: [facility] RN Member Role: Primary Care Nurse Name: Mp Zarco RN Position: [facility] RN Member Role: Primary Care Nurse Name: Britney Henao RN Position: [facility] RN Member Role: Primary Care Nurse Name: Blayne Hughes RN [facility] [...] Primary Care Nurse Name: Hortensia Garrison Position: [facility] Outreach Member Role: Lifetime Consulting Physician Name: Paige Morris RN Position: [facility] [...] Persons Name: PAIGE TALBERT Address: [place] [address] Name: CAMRON VELASQUEZ Address: [place] [address] Name: ANTIONE SETHI Address: home [address] [place] [id number]
--- OUTSIDE RECORDS SUMMARY | 2023-03-19 20:06 | XMS_ITS | Continuity of Care Document ---
Author Name Unknown Organization [facility] ter Address [address] [place] [id number]- Care Team Providers Care Transplant Surgeon Name Role Phone Heber FRANKLIN, Kathy Primary Care Physician [phone] Encounter [facility] Date(s): 07/23/22 - 07/24/[address] [address]- Encounter Diagnosis Weakness(Final) - 07/23/22 Discharge Disposition: A-D/C Home Attending Physician: Jasiel Bey MD Admitting Physician: Jasiel Bey MD Referring Physician: Not on Staff, Referring MD Allergies, Adverse Reactions, Alerts No Known Allergies Immunizations Given and Recorded Vaccine Date Status Refusal Reason SARS-CoV-2 mRNA ([id number]) vax 07/09/21 Recorded SARS-CoV-2 (COVID-19) Ad26 vaccine [...] Refills, Maintenance, 10/05/19 15:29:00 EDT, Tablet, [facility]/pharmacy #[id number], 144.78, cm, 10/05/19 14:50:00 EDT, Height, 89.5, kg, 10/01/19 20:04:00 EDT,Dry Weight Start Date: 10/05/19 Stop Date: 11/04/19 Status: Ordered fluticasone 50 mcg/inh nasal spray 1 sprays, Nares, Both, 2 times a day, # 16 Gm, 0 Refills, Maintenance, 12/01/20 4:52:00 EDT, [place],Partial fill upon patient request if the prescription is for a schedule II opioid drug. Start Date: 12/01/20 Status: Ordered insulin glargine 100 units/mL subcutaneous solution = 15 units, Subcutaneous Injection, Daily in AM, # 3.6 mL, 0 Refills, Maintenance, 03/08/22 13:57:00 EDT, Injection, [facility], Partial fill upon patient [...] 5 Refills, Maintenance, 06/14/21 8:50:00 EST, Capsule, [facility]/pharmacy #[id number], Partial fill upon patient request if the prescription is for a schedule II opioid drug., 152, cm, 06/07/21 7:45:00 EST, [place]... Start Date: 06/14/21 Status: Ordered MiraLax oral powder for reconstitution = 17 Gm, By Mouth, 2 times a day before breakfast and dinne, dissolve in water before taking, # 527Gm, 11 Refills, Maintenance, 05/28/21 13:46:00 EST, REC Powder, [facility]/pharmacy #[id number], Partial fill upon patient request if the prescription is for a sche... Start Date: 05/28/21 Status: Ordered Norvasc 2.5 mg oral tablet 2.5 mg, 1, tablet, By Mouth, Daily, Please conctact office for apt. for further refills [phone], #30 tablet, Refills 1, Tot. Refills 1, Maintenance, 08/03/20 11:28:00 EDT, Route to Pharmacy Electronically, [facility], y convert t... Start Date: [...] 9:58:00 EDT, Route to Pharmacy Electronically, [facility]/pharmacy #[id number], Partial fill upon patient request if the [...] Exam Date Time Procedure Performing Provider Status 07/23/22 10:[address] Abd/Pelvis W/ IV Contrast Only DannicarmineLakeisha traylor; Auth (Verified) Notes: (CT Abd/Pelvis W/ IV Contrast Only) Reason For Exam: LLQ abdominal pain;Other: RESULT: CT Abd/Pelvis W/ IV Contrast Only CT Abd/Pelvis W/ IV Contrast Only Hx of Present Illness: Patient reports feeling unwell x 4 days; gen weakness, body aches, malaise.;Reason: Other:; LLQ abdominal pain; Clinical Question(s): Diverticulitis; Order Comment: TECHNIQUE: Spiral CT through the abdomen and pelvis with IV contrast formatted in 3 planes. 100 cc of Omnipaque 300 was administered intravenously. This study was performed without oral contrast. Weight-based protocol using automatic tube modulation was used to optimize exposure parameters. CTDIvol Body: 14.66 mGy, DLP Body: 712 mGy*cm. COMPARISON: 06/01/2022 FINDINGS: Of note, a 2nd topogram obtained after IV infiltration occurred following the 1st topogram. 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 Visualized Chest: Bilateral dependent atelectasis. No pleural effusion. The heart is normal in size. No pericardial effusion. Coronary calcifications. Diaphragm: Normal. Liver: Cirrhotic. No suspicious focal lesions. Gallbladder: Absent consistent with prior cholecystectomy. Bile ducts: No biliary ductal dilation. Spleen: Normal. Pancreas: Normal. Adrenal glands: Normal. Kidneys and ureters: Atrophic right kidney and bilateral multifocal areas of cortical scarring versus persistent lobulation. Excreted contrast is seen in the collecting systems bilaterally, which decreases sensitivity for detection of nephrolithiasis, however multiple right sided nonobstructive calculi are suspected and are unchanged from prior study, largest is interpolar and measures 2 mm (series 601:40). No hydronephrosis or suspicious masses. Bladder: Contains excreted contrast without filling defects or wall thickening. Reproductive organs: Unremarkable. Stomach, small bowel, and large bowel: Moderate colonic stool burden. Small Freeman's hernia containing the anterior wall of the cecum, through a right lower quadrant anterior abdominal wall defect (series 601:86), unchanged from prior. Appendix: Not seen, but no evidence of appendicitis. Peritoneum and retroperitoneum: No ascites or pneumoperitoneum. No omental or mesenteric lesions. Lymph nodes: No enlarged lymph nodes. Blood vessels: Severe atherosclerotic vascular calcification but no aneurysm. No evidence of venousthrombosis. Abdominal and pelvic wall: Unremarkable. Bones: Severe chronic compression deformities of T12 and L4 are unchanged. Mild degenerative changes of the visualized spine. No acute osseous process. IMPRESSION: No acute process in the abdomen or pelvis. Excreted contrast in the bilateral collecting systems from an earlier study, with multiple right-sided nonobstructing calculi unchanged. Unchanged small uncomplicated Freeman's hernia containing anterior wall of the cecum. I have personally reviewed the images and I agree with this report. WSN: [id number] Ordering Physician: Nadeem Chang Dictated By: Krystal Quiroz MD Dictated Date/Time: 07/23/22 10:47 p Reviewed By: Robert Ellis MD Signed By: Robert Ellis MD Signed Date/Time: 07/23/22 10:52 pm Transcribed By: KEYSHA Transcribed Date/Time: 07/23/22 10:43 pm * Exam Date Time Procedure Performing Provider Status 07/23/22 9:28 PM Chest Portable Marie Gonzales; Auth ( Verified) Notes: (Chest Portable) Reason For Exam: Shortness of Breath RESULT: Chest Portable Chest Portable Hx of Present Illness: Patient reports feeling unwell x 4 days; gen weakness, body aches, malaise. COMPARISON: 06/02/2022 FINDINGS: LINES AND TUBES: None. LUNGS AND PLEURA: Low lung volumes. No evidence of consolidation or edema. No pleural effusion. No pneumothorax. HEART, MEDIASTINUM AND ANIKET: Unchanged. BONES AND SOFT TISSUES: No acute abnormality. IMPRESSION: No acute abnormality. WSN: [id number] Ordering Physician: Nadeem Chang Dictated By: Gautam Flores MD Dictated Date/Time: 07/23/22 9:35 pm Reviewed By: Gautam Flores MD Signed By: Gautam Flores MD Signed Date/Time: 07/23/22 9:35 pm Transcribed By: KEYSHA Transcribed Date/Time: 07/23/22 9:33 pm * Exam Date Time Procedure Performing Provider Status 07/23/22 9:[address] Cervical Spine W/O Contrast Lakeisha Smalls; Auth (Verified) Notes: (CT Cervical Spine W/O Contrast) Reason For Exam: Neck trauma, dangerous injury mechanism;Other: RESULT: CT Cervical Spine W/O Contrast CT Head/Brain W/O Contrast, CT Cervical Spine W/O Contrast INDICATION: Hx of Present Illness: Patient reports feeling unwell x 4 days; gen weakness, body aches, malaise.; Reason: Trauma; Clinical Question(s): Hematoma TECHNIQUE: Noncontrast head CT using axial technique was reconstructed in axial and coronal planes.Noncontrast spiral CT through the cervical spine was formatted in 3 planes. Automatic tube modulation was used for the cervical spine and iterative dose reconstruction was used for both the head and cervical spine to optimize scan parameters and image quality. CTDIvol Body: 23.86 mGy, DLP Body: 490 mGy*cm. CTDIvol Head: 36.80 mGy, DLP Head: 589 mGy*cm. 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 BRAIN AND EXTRA-AXIAL SPACES: No parenchymal hemorrhage, midline shift, or mass effect. Matthew-white matter differentiation is wellpreserved. 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 No acute infarct. Negative insular ribbon sign. Atherosclerotic vascular calcification of the carotid arteries but negative hyperdense vessel sign. Moderate prominence of the ventricles and sulci consistent with parenchymal volume loss. Mild low-density white matter changes. No subarachnoid hemorrhage. No subdural or epidural collection. CALVARIUM, SKULL BASE, AND SOFT TISSUES: No fractures or suspicious bony lesions. The paranasal sinuses and mastoid air cells are clear. Status-post bilateral lens extraction. The extracranial soft tissues are unremarkable. CERVICAL SPINE: No fracture. No acute osseous abnormalities. Normal alignment. No locked or perched facet. Moderate multilevel degenerative disc space narrowingand end plate irregularity, most prominent at C3-C6. OTHER BONES: No acute abnormality. CERVICAL SOFT TISSUES AND LUNG APICES: 1.6 cm hypodense right thyroid nodule (series 605: Image 13). Otherwise unremarkable soft tissues. Visualized lung apices are clear. IMPRESSION: No acute abnormality of the head or cervical spine. 1.6 cm hypodense right thyroid nodule. Can consider further evaluation with thyroid ultrasound if clinically indicated. I have personally reviewed the images and I agree with this report. WSN: [id number] Ordering Physician: Nadeem Chang Dictated By: Jocelyne Tijerina MD Dictated Date/Time: 07/23/22 9:50 pm Reviewed By: Robert Ellis MD Signed By: Robert Ellis MD Signed Date/Time: 07/23/22 9:55 pm Transcribed By: KEYSHA Transcribed Date/Time: 07/23/22 9:31 pm * Exam Date Time Procedure Performing Provider Status 07/23/22 9:[address] Head/Brain W/O Contrast Lakeisha Sidhu; Auth (Verified) Notes: (CT Head/Brain W/O Contrast) Reason For Exam: Trauma RESULT: CT Head/Brain W/O Contrast CT Head/Brain W/O Contrast, CT Cervical Spine W/O Contrast INDICATION: Hx of Present Illness: Patient reports feeling unwell x 4 days; gen weakness, body aches, malaise.; Reason: Trauma; Clinical Question(s): Hematoma TECHNIQUE: Noncontrast head CT using axial technique was reconstructed in axial and coronal planes.Noncontrast spiral CT through the cervical spine was formatted in 3 planes. Automatic tube modulation was used for the cervical spine and iterative dose reconstruction was used for both the head and cervical spine to optimize scan parameters and image quality. CTDIvol Body: 23.86 mGy, DLP Body: 490 mGy*cm. CTDIvol Head: 36.80 mGy, DLP Head: 589 mGy*cm. 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 BRAIN AND EXTRA-AXIAL SPACES: No parenchymal hemorrhage, midline shift, or mass effect. Matthew-white matter differentiation is wellpreserved. 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 No acute infarct. Negative insular ribbon sign. Atherosclerotic vascular calcification of the carotid arteries but negative hyperdense vessel sign. Moderate prominence of the ventricles and sulci consistent with parenchymal volume loss. Mild low-density white matter changes. No subarachnoid hemorrhage. No subdural or epidural collection. CALVARIUM, SKULL BASE, AND SOFT TISSUES: No fractures or suspicious bony lesions. The paranasal sinuses and mastoid air cells are clear. Status-post bilateral lens extraction. The extracranial soft tissues are unremarkable. CERVICAL SPINE: No fracture. No acute osseous abnormalities. Normal alignment. No locked or perched facet. Moderate multilevel degenerative disc space narrowingand end plate irregularity, most prominent at C3-C6. OTHER BONES: No acute abnormality. CERVICAL SOFT TISSUES AND LUNG APICES: 1.6 cm hypodense right thyroid nodule (series 605: Image 13). Otherwise unremarkable soft tissues. Visualized lung apices are clear. IMPRESSION: No acute abnormality of the head or cervical spine. 1.6 cm hypodense right thyroid nodule. Can consider further evaluation with thyroid ultrasound if clinically indicated. I have personally reviewed the images and I agree with this report. WSN: [id number] Ordering Physician: Nadeem Chang Dictated By: Jocelyne Tijerina MD Dictated Date/Time: 07/23/22 9:50 pm Reviewed By: Robert Ellis MD Signed By: Robert Ellis MD Signed Date/Time: 07/23/22 9:55 pm Transcribed By: KEYSHA Transcribed Date/Time: 07/23/22 9:31 pm Vital Signs Most recent to oldest [Reference Range]: 1 2 3 Oxygen Saturation [94-100 %] 100 % (07/24/22 6:48 AM) 99 % (07/24/22 4:00 AM) 99 % (07/24/22 2:00 AM) Pulse Rate [55-90 bpm] 83 bpm (07/24/22 6:48 AM) 88 bpm (07/24/22 4:00 AM) 90 bpm (07/24/22 2:00 AM) Blood Pressure [90-138/55-84 mm Hg] 147/90mm Hg *H* (07/24/22 6:48 AM) 142/76mm Hg *H* (07/24/22 4:00 AM) 119/74mm Hg (07/24/22 2:00 AM) Respiratory Rate [16-30 br/min] 16 br/min (07/24/22 6:48 AM) 20 br/min (07/24/22 4:00 AM) 18 br/min (07/24/22 2:00 AM) Temperature [96.8-100.4 DegF] 97.9 DegF (07/24/22 6:48 AM) 98.3 DegF (07/24/22 4:00 AM) 98.0 DegF (07/23/22 10:30 PM) Mode of Delivery (Oxygen) Room air (07/24/22 6:48 AM) Room air (07/24/22 4:00 AM) Room air (07/24/22 2:00 AM) Blood pressure sites Arm, right (07/24/22 6:48 AM) Arm, right (07/24/22 4:00 AM) Arm, right (07/24/22 2:00 AM) Temperature Route Oral (07/24/22 6:48 AM) Oral (07/24/22 4:00 AM) Oral (07/23/22 10:30 PM) Social History Social History Type Response Smoking Status Never (less than 100 in lifetime) entered on: 06/27/21 Sex Female EKG study * Event Display: EKG Authored Date: [id number] * Event Display: ECG 12-Lead Authored Date: [id number] Please click on pdf link to open report * Event Display: ECG 12-Lead Authored Date: [id number] Ventricular Rate: 82 BPM Atrial Rate: 82 BPM P-R Interval: 134 ms QRS Duration: 82 ms Q-T Interval: 398 ms QTC Calculation(Bazett): 464 ms P Tichnor: 30 degrees R Tichnor: 2 degrees T Tichnor: 39 degrees Normal sinus rhythm Voltage criteria for left ventricular hypertrophy Abnormal ECG When compared with ECG of 11-JUN-2022 13:50, QRS duration has decreased Confirmed by SALINA SPENCER MD ([id number]) on 07/24/2022 8:53:20 AM [place]: SALINA SPENCER MD Note * Matias Dodd MD: PERFORM Event Display: Patient Education Leaflets Authored Date: [id number] Weakness with Uncertain Cause ?? [id number] Debilidad con causa desconocida Seg??n shannon exploraci??n de hoy, no se sabe con exactitud por qu?? siente debilidad. De todos modos, susie debilidad no parece indicar que haya cristobal enfermedad grave en giovanni momento. Controle gissel s??ntomas y busque atenci??n m??dica seg??n se indica a continuaci??n. Cuidados en el hogar ??? Descanse en shannon hogar hoy. No se exija demasiado. ??? [place] los medicamentoscomo le indicaron. ??? En los pr??ximos d??as, eamon m??s l??quidos de lo habitual (a menos que shannon proveedor de atenci??n m??dica le haya pedido que restrinja la cantidad de l??quidos por alguna otra luis manuel??n). No se saltee ninguna comida. ??? A menos que se le indique lo contrario, contin??e tomando gissel medicamentos recetados. ??? Comun??quese con shannon proveedor de atenci??n m??dica si tiene alguna pregunta o inquietud. ?? Visitas de control Asista a los controles con shannon proveedor de atenci??n m??dica seg??n le hayan indicado. ?? Cu??ndo buscar atenci??n m??dica Llame a shannon proveedor de atenci??n m??dica de inmediato si algo de lo siguiente ocurre: ??? Los s??ntomas empeoran. ??? Los s??ntomas no empiezan a aliviarse dentro de los siguientes 2??d??as. ??? Tiene fiebre de 100.4?F (38?C) o m??s, o seg??n le haya indicado shannon proveedor de atenci??n m??dica. ?? Cu??ndo llamar al 911 Llame al 911 si se presenta cualquiera de estos s??ntomas: ??? Dolor en el pecho, el brazo, el javed o la parte shirley de la espalda. ??? Tiene dificultades para respirar. ??? Entumecimiento o debilidad en la jenna, un brazo o cristobal pierna. ??? Arrastra las palabras, confusi??n, dificultad para hablar,caminar o renee. ??? [place] en el v??monalisa o en las heces (de color magno o valentino). ??? Dolor de vale intenso. ??? P??rdida del conocimiento. ?? Last Reviewed Date: 2019 ?? [id number] Nomi. Todos los derechos reservados. Esta informaci??n no pretende sustituir la atenci??n m??dica profesional. S??lo shannon m??dico puede diagnosticar y tratar un problema de domenica. ?? Portable XR Chest Views * [employer] , CIS S: TRANSCRIBE Gautam Flores MD: VERIFY Event Display: Result: Authored Date: Chest Portable Hx of Present Illness: Patient reports feeling unwell x 4 days; gen weakness, body aches, malaise. COMPARISON: 06/02/2022 FINDINGS: LINES AND TUBES: None. LUNGS AND PLEURA: Low lung volumes. No evidence of consolidation or edema. No pleural effusion. No pneumothorax. HEART, MEDIASTINUM AND ANIKET: Unchanged. BONES AND SOFT TISSUES: No acute abnormality. IMPRESSION: No acute abnormality. WSN: [id number] Ordering Physician: Nadeem Chang Dictated By: Gautam Flores MD Dictated Date/Time: 07/23/22 9:35 pm Reviewed By: Gautam Flores MD Signed By: Gautam Flores MD Signed Date/Time: 07/23/22 9:35 pm Transcribed By: KEYSHA Transcribed Date/Time: 07/23/22 9:[address] Cervical spine WO contrast * [facility] , CIS S: TRANSCRIBE Robert Ellis MD: VERIFY Jocelyne Tijerina MD: SIGN Event Display: Result: Authored Date: [id number] CT Head/Brain W/O Contrast, CT Cervical Spine W/O Contrast INDICATION: Hx of Present Illness: Patient reports feeling unwell x 4 days; gen weakness, body aches, malaise.; Reason: Trauma; Clinical Question(s): Hematoma TECHNIQUE: Noncontrast head CT using axial technique was reconstructed in axial and coronal planes.Noncontrast spiral CT through the cervical spine was formatted in 3 planes. Automatic tube modulation was used for the cervical spine and iterative dose reconstruction was used for both the head and cervical spine to optimize scan parameters and image quality. CTDIvol Body: 23.86 mGy, DLP Body: 490 mGy*cm. CTDIvol Head: 36.80 mGy, DLP Head: 589 mGy*cm. 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 BRAIN AND EXTRA-AXIAL SPACES: No parenchymal hemorrhage, midline shift, or mass effect. Matthew-white matter differentiation is wellpreserved. 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 No acute infarct. Negative insular ribbon sign. Atherosclerotic vascular calcification of the carotid arteries but negative hyperdense vessel sign. Moderate prominence of the ventricles and sulci consistent with parenchymal volume loss. Mild low-density white matter changes. No subarachnoid hemorrhage. No subdural or epidural collection. CALVARIUM, SKULL BASE, AND SOFT TISSUES: No fractures or suspicious bony lesions. The paranasal sinuses and mastoid air cells are clear. Status-post bilateral lens extraction. The extracranial soft tissues are unremarkable. CERVICAL SPINE: No fracture. No acute osseous abnormalities. Normal alignment. No locked or perched facet. Moderate multilevel degenerative disc space narrowingand end plate irregularity, most prominent at C3-C6. OTHER BONES: No acute abnormality. CERVICAL SOFT TISSUES AND LUNG APICES: 1.6 cm hypodense right thyroid nodule (series 605: Image 13). Otherwise unremarkable soft tissues. Visualized lung apices are clear. IMPRESSION: No acute abnormality of the head or cervical spine. 1.6 cm hypodense right thyroid nodule. Can consider further evaluation with thyroid ultrasound if clinically indicated. I have personally reviewed the images and I agree with this report. WSN: [id number] Ordering Physician: Nadeem Chang Dictated By: Jocelyne Tijerina MD Dictated Date/Time: 07/23/22 9:50 pm Reviewed By: Robert Ellis MD Signed By: Robert Ellis MD Signed Date/Time: 07/23/22 9:55 pm Transcribed By: KEYSHA Transcribed Date/Time: 07/23/22 9:[address] Head WO contrast * [facility] , CIS S: TRANSCRIBE Robert Ellis MD: VERIFY Jocelyne Tijerina MD: SIGN Event Display: Result: Authored Date: [id number] CT Head/Brain W/O Contrast, CT Cervical Spine W/O Contrast INDICATION: Hx of Present Illness: Patient reports feeling unwell x 4 days; gen weakness, body aches, malaise.; Reason: Trauma; Clinical Question(s): Hematoma TECHNIQUE: Noncontrast head CT using axial technique was reconstructed in axial and coronal planes.Noncontrast spiral CT through the cervical spine was formatted in 3 planes. Automatic tube modulation was used for the cervical spine and iterative dose reconstruction was used for both the head and cervical spine to optimize scan parameters and image quality. CTDIvol Body: 23.86 mGy, DLP Body: 490 mGy*cm. CTDIvol Head: 36.80 mGy, DLP Head: 589 mGy*cm. 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 BRAIN AND EXTRA-AXIAL SPACES: No parenchymal hemorrhage, midline shift, or mass effect. Matthew-white matter differentiation is wellpreserved. 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 No acute infarct. Negative insular ribbon sign. Atherosclerotic vascular calcification of the carotid arteries but negative hyperdense vessel sign. Moderate prominence of the ventricles and sulci consistent with parenchymal volume loss. Mild low-density white matter changes. No subarachnoid hemorrhage. No subdural or epidural collection. CALVARIUM, SKULL BASE, AND SOFT TISSUES: No fractures or suspicious bony lesions. The paranasal sinuses and mastoid air cells are clear. Status-post bilateral lens extraction. The extracranial soft tissues are unremarkable. CERVICAL SPINE: No fracture. No acute osseous abnormalities. Normal alignment. No locked or perched facet. Moderate multilevel degenerative disc space narrowingand end plate irregularity, most prominent at C3-C6. OTHER BONES: No acute abnormality. CERVICAL SOFT TISSUES AND LUNG APICES: 1.6 cm hypodense right thyroid nodule (series 605: Image 13). Otherwise unremarkable soft tissues. Visualized lung apices are clear. IMPRESSION: No acute abnormality of the head or cervical spine. 1.6 cm hypodense right thyroid nodule. Can consider further evaluation with thyroid ultrasound if clinically indicated. I have personally reviewed the images and I agree with this report. WSN: [id number] Ordering Physician: Nadeem Chang Dictated By: Jocelyne Tijerina MD Dictated Date/Time: 07/23/22 9:50 pm Reviewed By: Robert Ellis MD Signed By: Robert Ellis MD Signed Date/Time: 07/23/22 9:55 pm Transcribed By: KEYSHA Transcribed Date/Time: 07/23/22 9:[address] Abdomen and Pelvis W contrast IV * [facility] , CIS S: TRANSCRIBE Robert Ellis MD: VERIFY Gabriella FRANKLIN, [facility]: SIGN Event Display: Result: Authored Date: [id number] CT Abd/Pelvis W/ IV Contrast Only Hx of Present Illness: Patient reports feeling unwell x 4 days; gen weakness, body aches, malaise.;Reason: Other:; LLQ abdominal pain; Clinical Question(s): Diverticulitis; Order Comment: TECHNIQUE: Spiral CT through the abdomen and pelvis with IV contrast formatted in 3 planes. 100 cc of Omnipaque 300 was administered intravenously. This study was performed without oral contrast. Weight-based protocol using automatic tube modulation was used to optimize exposure parameters. CTDIvol Body: 14.66 mGy, DLP Body: 712 mGy*cm. COMPARISON: 06/01/2022 FINDINGS: Of note, a 2nd topogram obtained after IV infiltration occurred following the 1st topogram. 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 Visualized Chest: Bilateral dependent atelectasis. No pleural effusion. The heart is normal in size. No pericardial effusion. Coronary calcifications. Diaphragm: Normal. Liver: Cirrhotic. No suspicious focal lesions. Gallbladder: Absent consistent with prior cholecystectomy. Bile ducts: No biliary ductal dilation. Spleen: Normal. Pancreas: Normal. Adrenal glands: Normal. Kidneys and ureters: Atrophic right kidney and bilateral multifocal areas of cortical scarring versus persistent lobulation. Excreted contrast is seen in the collecting systems bilaterally, which decreases sensitivity for detection of nephrolithiasis, however multiple right sided nonobstructive calculi are suspected and are unchanged from prior study, largest is interpolar and measures 2 mm (series 601:40). No hydronephrosis or suspicious masses. Bladder: Contains excreted contrast without filling defects or wall thickening. Reproductive organs: Unremarkable. Stomach, small bowel, and large bowel: Moderate colonic stool burden. Small Freeman's hernia containing the anterior wall of the cecum, through a right lower quadrant anterior abdominal wall defect (series 601:86), unchanged from prior. Appendix: Not seen, but no evidence of appendicitis. Peritoneum and retroperitoneum: No ascites or pneumoperitoneum. No omental or mesenteric lesions. Lymph nodes: No enlarged lymph nodes. Blood vessels: Severe atherosclerotic vascular calcification but no aneurysm. No evidence of venousthrombosis. Abdominal and pelvic wall: Unremarkable. Bones: Severe chronic compression deformities of T12 and L4 are unchanged. Mild degenerative changes of the visualized spine. No acute osseous process. IMPRESSION: No acute process in the abdomen or pelvis. Excreted contrast in the bilateral collecting systems from an earlier study, with multiple right-sided nonobstructing calculi unchanged. Unchanged small uncomplicated Freeman's hernia containing anterior wall of the cecum. I have personally reviewed the images and I agree with this report. WSN: [id number] Ordering Physician: Nadeem Chang Dictated By: Krystal Quiroz MD Dictated Date/Time: 07/23/22 10:47 p Reviewed By: Robert Ellis MD Signed By: Robert Ellis MD Signed Date/Time: 07/23/22 10:52 pm Transcribed By: KEYSHA Transcribed Date/Time: 07/23/22 10:43 pm Patient Care team information Care Team Personnel Name: Aster Pena RN Position: S RN Member Role: Primary Care Nurse Name: Dunia Phillip RN Position: S RN Member Role: Primary Care Nurse Name: Lisette Trejo RN Position: S RN Member Role: Primary Care Nurse Name: Jessica Canseco RN Position: S RN Member Role: Primary Care Nurse Name: Erica Archer RN Position: [facility] RN Supv Member Role: Primary Care Nurse Name: Vickie Lyons Position: [facility] Outreach Member Role: Lifetime Consulting Physician Name: Martine Carr RN Position: [facility] RN Member Role: Primary Care Nurse Name: Indira Monsalve RN Position: [facility] RN Member Role: Primary Care Nurse Name: Loren Mcmanus RN Position: [facility] RN Member Role: Primary Care Nurse Name: Marisela Lobo LPN Position: [facility] RN Member Role: Primary Care Nurse Name: Mp Zarco RN Position: [facility] RN Member Role: Primary Care Nurse Name: Kathy Buck MD Position: [facility] Outreach Member Role: PCP Address: Address: [address] [place] [phone]- [place] Name: Blayne Hughes RN Position: [facility] RN Member Role: Primary Care Nurse Name: Norma Art RN Position: [facility] RN Member Role: Primary Care Nurse Name: Mecca Boyd RN Position: [facility] RN Member Role: Primary Care Nurse Name: Katie Evans RN Position: [facility] RN Member Role: Primary Care Nurse Name: Leonor Mccormick RN Position: [facility] RN Member Role: Primary Care Nurse Name: Hortensia Garrison Position: [facility] Outreach Member Role: Lifetime Consulting Physician Name: Paige Morris RN Position: [facility] RN Member Role: Primary Care Nurse Name: Shauna Angela RN Position: [facility] RN Member Role: Primary Care Nurse Name: Trini Starr RN Position: [facility] RN Member Role: Primary Care Nurse Name: Susie Monson RN Position: [facility] RN Member Role: Primary Care Nurse Name: Meena Castro RN Position: [facility] RN Member Role: Primary Care Nurse Name: Jose Thomas RN Position: [facility] ED RN W/OE and Tasks Member Role: Patient Care Provider Name: Jasiel Bey MD Position: [facility] Resident Member Role: ED Attending Physician Address: Address: [address] [place] [id number]- Name: Matias Dodd MD Position: [facility] Resident Member Role: ED Resident Address: Address: [address] [place] [phone]- [place] Name: Amy Christensen Position: [facility] ED TA [facility] Member Role: Customs Collector Care Team Related Persons Name: PAIGE TALBERT Address: [place] [address] Name: CAMRON VELASQUEZ Address: [place] [address] Name: ANTIONE SETHI Address: home [address] [place] [id number]
--- OUTSIDE RECORDS SUMMARY | 2023-03-19 20:06 | XMS_ITS | Continuity of Care Document ---
Author Name Unknown Organization [facility] Address [address] [place] [address]- Care Team Providers Care Sport Intern Name Role Phone Not on Staff, PCP Primary Care Physician Unavail able Encounter [facility] Date(s): 05/10/20 - 05/10/[address] [address]- Discharge Disposition: A-D/C Walkout Attending Physician: Not [...] 07/28/19 10:09:00 EDT, Route to Pharmacy Electronically, [facility], may convert to 90daysat patient [...] 0 Refills, Maintenance, 10/05/19 15:24:00 EDT, [facility], [facility]/pharmacy #[id number], 1 sprays Nares, Both 2 times a day, 144.78, cm, 10/05/19 14:50:00 EDT, Height, 89.5, kg, 10/01/19 20:04:00 EDT, Dry... Start Date: 10/05/19 Status: Ordered insulin glargine 100 u/ml subcutaneous solution = 20 units, Subcutaneous Injection, Daily at bedtime, # 10 mL, 0 Refills, Maintenance, 10/05/19 15:24:00 EDT, Injection, [facility]/pharmacy #[id number], 144.78, cm, 10/05/19 14:50:00 [...] 15:25:00 EDT, Route to Pharmacy Electronically, [facility]/pharmacy #[id number], 144.78, cm, 10/05/19 14:50:00 EDT, Height, 89.5, kg, 10/01/19 20:04:00 EDT,... Start Date: 10/05/19 Stop Date: 10/26/19 Status: Ordered metoprolol 25 mg oral tablet 12.5 mg, 0.5, tablet, By Mouth, Daily, # 15 tablet, Refills 11, Tot. Refills 11, Maintenance, 07/28/19 10:09:00 EDT, Route to Pharmacy Electronically, [facility], may convert to 90 days at patient request, 127, cm, 07/22/19 11:16:0... Start Date: 07/28/19 Stop Date: 07/22/20 Status: Ordered Norvasc 2.5 mg oral tablet 2.5 mg, 1, tablet, By Mouth, Daily, # 30 tablet, Refills 11, Tot. Refills 11, Maintenance, 07/27/2009:09:00 EDT, Route to Pharmacy Electronically, [facility], y convert to 90 days at patient request, 127, cm, 07/22/19 11:16:00 EDT... Start Date: 07/28/19 Status: Ordered Reglan 5 mg oral tablet 1 tablet = 5 mg, By Mouth, 4 times a day, PRN Nausea & Vomiting, # 120 tablet, 3 Refills, Acute07/27/20 10:11:00 EDT, 07/28/19 10:09:00 EDT, Tablet, [facility], 127, cm, 07/22/19 11:16:00 EDT, [...] 11 Refills, Maintenance, 07/28/19 10:09:00 EDT, Tablet, [facility], may convert [...] 2 Oxygen Saturation [94-100 %] 100 % (05/10/20 6:06 PM) 100 % (05/10/20 4:09 PM) Pulse Rate [55-90 bpm] 58 bpm (05/10/20 6:06 PM) 60 bpm (05/10/20 4:09 PM) Blood Pressure [90-138/55-84 mm Hg] 138/ 60mm Hg (05/10/20 6:06 PM) 111/45mm Hg (05/10/20 4:09 PM) Respiratory Rate [16-30 br/min] 20 br/mi n (05/10/20 6:06 PM) 20 br/min (05/10/20 4:09 PM) Temperature [96.8-100.4 DegF] 97.5 DegF (05/10/20 4:09 PM) Mode of Delivery (Oxygen) Room air (05/10/20 6:06 PM) Room air (05/10/20 4:09 PM) Blood pressure sites Arm, right (05/10/20 6:06 PM) Arm, right (05/10/20 4:09 PM) Temperature Route Oral (05/10/20 4:09 PM) Social History Social History Type Response Smoking Status Never (less than 100 in lifetime) entered on: 07/22/19 Sex
--- OUTSIDE RECORDS SUMMARY | 2023-03-19 20:06 | XMS_ITS | Continuity of Care Document ---
Author Name Unknown Organization [facility] Address [address] [place] [address]- Care Team Providers Care Licensed Customs Broker Name Role Phone Kathy Buck MD Primary Care Physician Encounter [facility] ACCT R [id number] Date(s): 11/20/20 - 12/22/20 [facility] [address] [place] [address]- Attending Physician: Shante Alexis NP Admitting Physician: Shante Alexis NP Referring Physician: Kathy Buck MD Allergies, Adverse Reactions, Alerts Substance Reaction [...] Refills, Maintenance, 10/05/19 15:29:00 EDT, Tablet, [facility]/pharmacy #[id number], 144.78, cm, 10/05/19 14:50:00 EDT, Height, 89.5, kg, 10/01/19 20:04:00 EDT,Dry Weight Start Date: 10/05/19 Stop Date: 11/04/19 Status: Ordered fluticasone 50 mcg/inh nasal spray 1 sprays, Nares, Both, 2 times a day, # 16 Gm, 0 Refills, Maintenance, 12/01/20 4:52:00 EDT, [place],Partial fill upon patient request if the prescription [...] Mouth, Daily, CONTACT OFFICE FOR FURTHER REFILLS [phone], # 15 tablet, 0 Refills, Maintenance, 10/26/20 12:04:00 EDT, [id number], 128, cm, 10/02/20 15:05:00 EDT, Height, 62, [...] conctact office for apt. for further refills [phone], # 60 tablet, 1 Refills, Maintenance, 08/03/20 [...]
--- OUTSIDE RECORDS SUMMARY | 2023-03-19 20:06 | XMS_ITS | Continuity of Care Document ---
Author Name Unknown Organization [facility] Address [address] [place] [address]- Care Team Providers Care Muffler Installer Name Role Phone Heber FRANKLIN, Kathy Primary Care Physician [phone] Encounter [facility] Date(s): 11/27/20 - 12/27/20 [facility] [address] [place] [address]- Allergies, Adverse Reactions, Alerts Substance Reaction Severity [...] Refills, Maintenance, 10/05/19 15:29:00 EDT, Tablet, [facility]/pharmacy #[id number], 144.78, cm, 10/05/19 14:50:00 EDT, Height, 89.5, kg, 10/01/19 20:04:00 EDT,Dry Weight Start Date: 10/05/19 Stop Date: 11/04/19 Status: Ordered fluticasone 50 mcg/inh nasal spray 1 sprays, Nares, Both, 2 times a day, # 16 Gm, 0 Refills, Maintenance, 12/01/20 4:52:00 EDT, [place],Partial fill upon patient request if the prescription [...] Mouth, Daily, CONTACT OFFICE FOR FURTHER REFILLS [phone], # 15 tablet, 0 Refills, Maintenance, 10/26/20 12:04:00 EDT, [id number], 128, cm, 10/02/20 15:05:00 EDT, Height, 62, kg, 09/27/20 0:49:00 EDT, Dry Weight Start Date: 10/26/20 Status: Ordered Norvasc 2.5 mg oral tablet 2.5 mg, 1, tablet, By Mouth, Daily, Please conctact office for apt. for further refills [phone], #30 tablet, Refills 1, Tot. Refills 1, Maintenance, 08/03/20 11:28:00 EDT, Route to Pharmacy Electronically, [facility], y convert t... Start [...] conctact office for apt. for further refills [phone], # 60 tablet, 1 Refills, Maintenance, 08/03/20 11:29:00 EDT, Tablet, [facility], may convert to 90 days at patient request., 14... Start Date: 08/03/20 Stop Date: 10/02/20 Status: Ordered traZODone 50 mg oral tablet 50 mg, 1, tablet, By Mouth, Daily at supper, Refills 0, Maintenance, 08/24/20 10:35:00 EDT, Partialfill upon patient request if the prescription is for a schedule II opioid drug. Start Date: 4/23/21 Status: Ordered Problem List Condition Effective Dates [...]
--- OUTSIDE RECORDS SUMMARY | 2023-03-19 20:06 | XMS_ITS | Continuity of Care Document ---
Author Name Unknown Organization [facility] Address [address] [place] [id number]- Care Team Providers Care Literature Teacher Name Role Phone Luis Fernando Nobles MD Primary Care Physician Encounter [facility] Date(s): 07/07/19 - 07/11/[address] [address]- [facility] Encounter Diagnosis Nausea & vomiting(Final) - 07/07/19 Dyspnea, unspecified(Final) - 07/07/19 Troponin I above reference range(Final) - 07/07/19 Contusion of knee, left(Final) - 07/07/19 Contusion of knee, right(Final) - 07/07/19 Brain concussion(Final) - 07/07/19 Discharge Disposition: A-D/C Home Attending Physician: Alexi White MD Admitting Physician: Alexi White MD Referring Physician: Not on Staff, Referring [...] Refills 0, Tot. Refills 0, Maintenance, 07/11/19 15:12:00 EDT, Route to Pharmacy Electronically, [facility], 127, cm, 07/11/19 14:39:00 EDT, Height, 78.8, kg, 07/10/19 10:13:00 EDT, Dry Weight Start Date: 07/11/19 Status: Ordered Humalog Kwik Pen 100 units/mL [...] 07/11/19 14:58:00 EDT, Route to Pharmacy Electronically, [facility], 127, cm, 07/11/19 14:39:00 EDT, Height, 78.8, kg, 07/10/19 10:13:00 EDT, Dry... Start Date: 07/11/19 Status: Ordered Norvasc 2.5 mg oral tablet 2.5 mg, 1, tablet, By Mouth, Daily, # 30 tablet, Refills 0, Tot. Refills 0, Maintenance, 07/11/19 15:07:00 EDT, Route to Pharmacy Electronically, [facility], 127, cm, 07/11/19 14:39:00 EDT, Height, 78.8, kg, 07/10/19 10:13:00 EDT, Dry We... Start Date: 07/11/19 Status: Ordered nystatin topical [id number] u/gm powder 1 application, Topically, 3 times [...] 0 Refills, Maintenance, 07/11/19 15:08:00 EDT, Tablet, [facility], 127, cm, 07/11/19 14:39:00 [...] 1 Refills, Maintenance, 07/11/19 15:15:00 EDT, Tablet, [facility], 127, cm, 07/11/19 14:39:00 EDT, Height, [...] Compound Start Date: 02/17/19 Status: Ordered Results Radiology Reports * Exam Date Time Procedure Performing Provider Status 07/09/19 9:53 AM Chest Portable Aicha Boyer (Raji ified) Notes: (Chest Portable) Reason For Exam: Persistent Cough RESULT: Chest Portable AP semiupright portable chest dated July 09, 2019 at 0923 hours. Comparison films are from July. HISTORY: Persistent cough. The cardiac silhouette is within normal limits for size. Mural calcifications noted in the aorta. No airspace infiltrate or pleural effusion is identified. Degenerative changes are noted in the spine. IMPRESSION: No evidence of acute pulmonary disease. Examination 83446. Thank you for allowing me to participate in the care of this patient. WSN: [id number] Ordering Physician: Rod Segura V Dictated By: Nadeem Tucker MD Dictated Date/Time: 07/09/19 10:02 a Reviewed By: Nadeem Tucker MD Signed By: Nadeem Tucker MD Signed Date/Time: 07/09/19 10:02 am Transcribed By: KEYSHA Transcribed Date/Time: 07/09/19 10:02 am * Exam Date Time Procedure Performing Provider Status 07/07/19 10:50 AM Knee 3 Views Left Eder Meléndez (Verified) Notes: (Knee 3 Views Left) Reason For Exam: fall, difficulty walking knee pain;Trauma RESULT: Knee 3 Views Left Knee 3 Views Right, Knee 3 Views Left INDICATION: Status post fall and knee trauma. Clinical question: Fracture. COMPARISON: None. FINDINGS: Right knee: No evidence of acute fracture or dislocation. Mild degenerative changes in the medial and patellofemoral knee compartment. No evidence of joint effusion. Extensive vascular calcificationsnoted. Left knee: No evidence of acute fracture or dislocation. Mild degenerative changes in the medial and patellofemoral knee compartment. No evidence of joint effusion. Extensive vascular calcifications noted. IMPRESSION: No acute fracture or dislocation. I have personally reviewed the images and I agree with this report. WSN: [id number] Ordering Physician: Dereje Weathers Dictated By: Karan Bean MD Dictated Date/Time: 07/07/19 11:12 a Reviewed By: Jasvir De Luna MD Signed By: Jasvir De Luna MD Signed Date/Time: 07/07/19 11:17 am Transcribed By: KEYSHA Transcribed Date/Time: 07/07/19 11:00 am * Exam Date Time Procedure Performing Provider Status 07/07/19 10:50 AM Knee 3 Views Right Eder Meléndez (Verified) Notes: (Knee 3 Views Right) Reason For Exam: fall, difficulty walking knee pain;Trauma RESULT: Knee 3 Views Right Knee 3 Views Right, Knee 3 Views Left INDICATION: Status post fall and knee trauma. Clinical question: Fracture. COMPARISON: None. FINDINGS: Right knee: No evidence of acute fracture or dislocation. Mild degenerative changes in the medial and patellofemoral knee compartment. No evidence of joint effusion. Extensive vascular calcificationsnoted. Left knee: No evidence of acute fracture or dislocation. Mild degenerative changes in the medial and patellofemoral knee compartment. No evidence of joint effusion. Extensive vascular calcifications noted. IMPRESSION: No acute fracture or dislocation. I have personally reviewed the images and I agree with this report. WSN: [id number] Ordering Physician: Dereje Weathers Dictated By: Karan Bean MD Dictated Date/Time: 07/07/19 11:12 a Reviewed By: Jasvir De Luna MD Signed By: Jasvir De Luna MD Signed Date/Time: 07/07/19 11:17 am Transcribed By: KEYSHA Transcribed Date/Time: 07/07/19 11:00 am * Exam Date Time Procedure Performing Provider Status 07/07/19 10:50 AM Chest 2 Views Frontal and Lat Namrata Meléndez; Auth (Verified) Notes: (Chest 2 Views Frontal and Lat) Reason For Exam: flu-like, bibasilar crackels;Other: RESULT: Chest 2 Views Frontal and Lat Chest 2 Views Frontal and Lat Reason: flu-like, bibasilar crackles; Clinical Question(s): Pneumonia; Hx of Present Illness: Flu-like symptoms x4 days. COMPARISON: None. FINDINGS: LINES AND TUBES: None. LUNGS AND PLEURA: Interstitial prominence bilaterally. No definite consolidation. No pleural effusion. No pneumothorax. HEART, MEDIASTINUM AND ANIKET: Heart is normal in size. Unchanged mediastinal and hilar contours. Atherosclerosis of the thoracic aorta. BONES AND SOFT TISSUES: No acute abnormality. IMPRESSION: No acute abnormality. WSN: [id number] Ordering Physician: Dereje Weathers Dictated By: Jasvir De Luna MD Dictated Date/Time: 07/07/19 10:54 a Reviewed By: Jasvir De Luna MD Signed By: Jasvir De Luna MD Signed Date/Time: 07/07/19 10:54 am Transcribed By: KEYSHA Transcribed Date/Time: 07/07/19 10:53 am Vital Signs Most recent to oldest [Reference Range]: 1 2 3 Height 127 cm (07/11/19 5:00 PM) 127 cm (07/11/19 12:30 PM) 127 cm (07/11/19 3:34 AM) Weight 78.2 kg (07/11/19 3:34 AM) 78.8 kg (07/10/19 10:13 AM) 78.8 kg (07/10/19 8:52 AM) Oxygen Saturation [94-100 %] 100 % (07/11/19 5:00 PM) 97 % (07/11/19 12:30 PM) 95 % (07/11/19 3:34 AM) Pulse Rate [55-90 bpm] 55 bpm (07/11/19 5:00 PM) 72 bpm (07/11/19 12:30 PM) 74 bpm (07/11/19 7:56 AM) Body Mass Index [18.5-24.99] 48.48 *>HHI* (07/11/19 3:34 AM) 48.86 *>HHI* (07/10/19 10:13 AM) 48.86 *>HHI* (07/10/19 8:52 AM) Blood Pressure [90-138/55-84 mm Hg] 113/55mm Hg (07/11/19 5:00 PM) 103/92mm Hg (07/11/19 12:30 PM) 106/40mm Hg (07/11/19 7:57 AM) Respiratory Rate [16-30 br/min] 8 br/min *L* (07/11/19 5:00 PM) 20 br/min (07/11/19 12:30 PM) 16 br/min (07/11/19 3:34 AM) Temperature [96.8-100.4 DegF] 98.4 DegF (07/11/19 5:00 PM) 98.2 DegF (07/11/19 12:30 PM) 98.9 DegF (07/11/19 3:34 AM) Mode of Delivery (Oxygen) Room air (07/11/19 5:00 PM) Room air (07/11/19 12:30 PM) Room air (07/11/19 3:34 AM) Blood pressure sites Arm, left (07/11/19 5:00 PM) Arm, left (07/11/19 12:30 PM) Arm, left (07/11/19 3:34 AM) Temperature Route Oral (07/11/19 5:00 PM) Oral (07/11/19 12:30 PM) Oral (07/11/19 3:34 AM) Dry Weight 78.8 kg (07/10/19 10:13 AM) 60.6 kg (07/08/19 12:00 AM) Weight Obtained Via Bed scale (07/11/19 3:34 AM) Bed scale (07/08/19 3:32 AM) Bed scale (07/08/19 12:00 AM) Dry Weight Obtained Via Bed scale (07/08/19 12:00 AM) Sensory deficits None (07/08/19 12:00 AM) Mobility assistance Independent (07/08/19 12:00 AM)
--- OUTSIDE RECORDS SUMMARY | 2023-03-19 20:06 | XMS_ITS | Continuity of Care Document ---
Author Name Unknown Organization [facility] ter Address [address] [place] [id number]- Care Team Providers Care Gameplay Programmer Name Role Phone Heber FRANKLIN, Kathy Primary Care Physician [phone] Encounter [facility] Date(s): 12/19/21 - 12/20/[address] [address]- Encounter Diagnosis Hyperkalemia(Final) - 12/15/21 Discharge Disposition: A-D/C Home Attending Physician: Esme Trinidad MD Admitting Physician: Ree Gottlieb MD Referring [...] Start Date: 06/04/21 Status: Ordered Acetaminophen Tablet 650 mg, Tablet, By Mouth, Every 4 hours, PRN for Pain , Mild, Temperature Greater than 100.5, Routine, 12/15/21 16:56:00 EDT Start Date: 12/15/21 Stop Date: 12/21/21 Status: Discontinued Albuterol (Eqv-ProAir HFA) 90 mcg/inh inhalation aerosol 2 puffs, Inhalation, Every 6 hours, 0 Refills, Maintenance, 12/01/20 4:54:00 EDT, Partial fill uponpatient request if the prescription is for a schedule II opioid drug. Start Date: 12/01/20 Status: Ordered aspirin 81 mg oral delayed release tablet 81 mg, 1, tablet, By Mouth, Daily Start Date: 12/15/18 Status: Ordered Augmentin 875 mg-125 mg oral tablet 1 tablet, By Mouth, Every 12 hours, for 4 days, # 8 tablet, 0 Refills, Acute 12/24/21 11:11:00 EDT,12/20/21 11:11:00 EDT, Tablet, [facility], Partial fill upon patient request if the prescription is for a schedule II opioid drug., 122,... Start Date: 12/20/21 Stop Date: 12/24/21 Status: Ordered cetirizine 5 mg oral tablet [...] 0 Refills, Maintenance, 10/05/19 15:29:00 EDT, Tablet, [facility]/pharmacy #[id number], 144.78, cm, 10/05/19 14:50:00 EDT, Height, 89.5, kg, 10/01/19 20:04:00 EDT,Dry Weight Start Date: 10/05/19 Stop Date: 11/04/19 Status: Ordered fluticasone 50 mcg/inh nasal spray 1 sprays, Nares, Both, 2 times a day, # 16 Gm, 0 Refills, Maintenance, 12/01/20 4:52:00 EDT, [place],Partial fill upon patient request if the prescription [...] conctact office for apt. for further refills [phone], #30 tablet, Refills 1, Tot. Refills 1, Maintenance, 08/03/20 11:28:00 EDT, Route to Pharmacy Electronically, [facility], y convert t... Start Date: 08/03/20 Status: Ordered Norvasc 5 mg oral tablet 2.5 mg, Tablet, By Mouth, 12/20/21 9:00:00 EDT Start Date: 12/20/21 Stop Date: 12/20/21 Status: Completed ondansetron 4 mg oral tablet, [...] conctact office for apt. for further refills [phone], # 60 tablet, 1 Refills, Maintenance, 08/03/20 11:29:00 EDT, Tablet, [facility], may convert to 90 [...] Reports Name Date Urine Culture (URINE CULTURE) 12/15/21 Microbiology Reports TEST:Urine Culture STATUS:Auth (Verified) BODY SITE: SOURCE:URINE COLLECTED DATE/TIME:12/15/21 1:50 PM Urine Culture SPECIMEN DESCRIPTION : URINE SPECIAL REQUESTS : NONE CULTURE : >100,000 COL/ML ESCHERICHIA COLI This isolate was identified using Maldi-TOF system These AST results were performed on the AnSyn ID and AST system REPORT STATUS : FINAL 12/18/2021 ORGANISM >100,000 COL/ML ESCHERICHIA COLI This isolate was identified using Maldi-TOF system METHOD MIN. INHIB. CONC. (MCG/ML) AMPICILLIN RESISTANT AMPICILLIN/SULBACTAM INTERMEDIATE AMOXICILLIN/CLAVULAN SUSCEPTIBLE CEFAZOLIN SUSCEPTIBLE CEFEPIME SUSCEPTIBLE CEFTRIAXONE SUSCEPTIBLE CIPROFLOXACIN RESISTANT ERTAPENEM SUSCEPTIBLE GENTAMICIN SUSCEPTIBLE LEVOFLOXACIN RESISTANT MEROPENEM SUSCEPTIBLE NITROFURANTOIN SUSCEPTIBLE PIPERACILLIN/TAZOBAC SUSCEPTIBLE TRIMETH/SULFAMETHOX SUSCEPTIBLE TETRACYCLINE RESISTANT Vital Signs Most recent to oldest [Reference Range]: 1 2 3 Height 122 cm (12/19/21 5:10 AM) 122 cm (12/18/21 7:44 PM) 122 cm (12/18/21 5:15 AM) Weight 69 kg (12/16/21 10:56 PM) 65.4 kg (12/16/21 9:53 PM) Oxygen Saturation [94-100 %] 100 % (12/20/21 2:00 PM) 99 % (12/20/21 5:00 AM) 100 % (12/19/21 8:00 PM) Pulse Rate [55-90 bpm] 66 bpm (12/20/21 2:00 PM) 70 bpm (12/20/21 5:00 AM) 76 bpm (12/19/21 8:00 PM) Body Mass Index [18.5-24.99] 46.36 *>HHI* (12/16/21 10:56 PM) 43.94 *>HHI* (12/16/21 9:53 PM) Blood Pressure [90-138/55-84 mm Hg] 195/57mm Hg *H* (12/20/21 2:00 PM) 132/77mm Hg (12/20/21 9:16 AM) 138/67mm Hg (12/20/21 5:00 AM) Respiratory Rate [16-30 br/min] 18 br/min (12/20/21 2:00 PM) 20 br/min (12/20/21 5:00 AM) 16 br/min (12/20/21 3:48 AM) Temperature [96.8-100.4 DegF] 97.4 DegF (12/20/21 2:00 PM) 97.9 DegF (12/20/21 5:00 AM) 97.6 DegF (12/19/21 8:00 PM) Mode of Delivery (Oxygen) Room air (12/20/21 2:00 PM) Room air (12/20/21 5:00 AM) Room air (12/19/21 8:00 PM) Blood pressure sites Arm, right (12/20/21 2:00 PM) Arm, right (12/20/21 5:00 AM) Arm, right (12/19/21 8:00 PM) Temperature Route Oral (12/20/21 2:00 PM) Oral (12/20/21 5:00 AM) Oral (12/19/21 8:00 PM) Dry Weight 69 kg (12/16/21 10:56 PM) Weight Obtained Via Bed scale (12/16/21 9:53 PM) Social History Social History Type Response Smoking Status Never (less than 100 in lifetime) entered on: 06/27/21 Sex
--- OUTSIDE RECORDS SUMMARY | 2023-03-19 20:06 | XMS_ITS | Continuity of Care Document ---
Author Name Unknown Organization [facility] ter Address [address] [place] [address]- Care Team Providers Care Lead Producer Name Role Phone Heber FRANKLIN, Kathy Primary Care Physician [phone] Encounter [facility] Date(s): 11/25/20 - 11/25/[address] [address]- Encounter Diagnosis Left wrist pain(Final) - 11/25/20 Discharge Disposition: A-D/C Home Attending Physician: Massimo Ballard MD Admitting Physician: Massimo Ballard MD Referring Physician: Not on Staff, Referring [...] 0 Refills, Maintenance, 10/05/19 15:29:00 EDT, Tablet, [facility]/pharmacy #[id number], 144.78, cm, 10/05/19 14:50:00 [...] opio... Start Date: 08/24/20 Status: Ordered lidocaine 1.8% topical film 1 patch, Topically, Daily, for 7 days, leave on up to 12 hours, # 30 each, 0 Refills, Acute 12/02/20 15:17:00 EDT, 11/25/20 15:17:00 EDT, Film, [facility], Partial fill upon patient request if the prescription is for a schedule II... Start Date: 11/25/20 Stop Date: 12/02/20 Status: Ordered loratadine 10 mg oral tablet 10 mg, 1, tablet, By Mouth, Daily at bedtime, # 21 tablet, Refills 0, Tot. Refills 0, Maintenance, 10/05/19 15:25:00 EDT, Route to Pharmacy Electronically, [facility]/pharmacy #[id number], 144.78, cm, 10/05/19 14:50:00 EDT, Height, 89.5, kg, 10/01/19 20:04:00 EDT,... Start Date: 10/05/19 Stop Date: 10/26/19 Status: Ordered Metoprolol Tartrate 25 mg oral tablet 0.5 tablet, By Mouth, Daily, CONTACT OFFICE FOR FURTHER REFILLS [phone], # 15 tablet, 0 Refills, Maintenance, 10/26/20 12:04:00 EDT, [id number], 128, cm, 10/02/20 15:05:00 EDT, Height, 62, kg, 09/27/20 0:49:00 EDT, Dry Weight Start Date: 10/26/20 Status: Ordered MorPHINE Inj 2 mg, Injection, IV Push Slowly, Every 5 minutes for 3 doses/times, PRN for Pain , Moderate, and SBP greater than 100, Routine, 11/25/20 9:47:00 EDT, Stop date Limited # of times Start Date: 11/25/20 Stop Date: 11/26/20 Status: Discontinued Norvasc 2.5 mg oral tablet 2.5 mg, 1, tablet, By Mouth, Daily, Please conctact office for apt. for further refills [phone], #30 tablet, Refills 1, Tot. Refills 1, Maintenance, 08/03/20 11:28:00 EDT, Route to Pharmacy Electronically, [facility], y convert t... [...] conctact office for apt. for further refills [phone], # 60 tablet, 1 Refills, Maintenance, 08/03/20 11:29:00 EDT, Tablet, [facility], may convert to [...] Exam Date Time Procedure Performing Provider Status 11/25/20 9:05 AM Tibia/Fibula 2 Views Left Bronwyn Sosa; Auth (Verified) Notes: (Tibia/Fibula 2 Views Left) Reason For Exam: Trauma RESULT: Tibia/Fibula 2 Views Left Tibia/Fibula 2 Views Left Hx of Present Illness: pt arrived from home c o fall. Pt hit chin and left wrist, reporting 6 10 left upper abd pain. Denies LOC, denies feelings of numbness tingling; Reason: Trauma; Clinical Question(s): Fracture COMPARISON: None. FINDINGS: No acute fracture or dislocation. Degenerative changes of the knee are noted. IMPRESSION: No acute osseous injury identified. WSN: [id number] Ordering Physician: Nadeem Chang Dictated By: Jasvir De Luna MD Dictated Date/Time: 11/25/20 9:27 am Reviewed By: Jasvir De Luna MD Signed By: Jasvir De Luna MD Signed Date/Time: 11/25/20 9:27 am Transcribed By: KEYSHA Transcribed Date/Time: 11/25/20 9:12 am * Exam Date Time Procedure Performing Provider Status 11/25/20 9:05 AM Chest 2 Views Frontal and Lat Viviana Sosa (Verified) Notes: (Chest 2 Views Frontal and Lat) Reason For Exam: trauma;Other: RESULT: Chest 2 Views Frontal and Lat Chest 2 Views Frontal and Lat Hx of Present Illness: pt arrived from home c o fall. Pt hit chin and left wrist, reporting 6 10 left upper abd pain. Denies LOC, denies feelings of numbness tingling; Reason: Other:; trauma; Clinical Question(s): Pneumothorax COMPARISON: 11/21/2020 FINDINGS: LINES AND TUBES: None. LUNGS AND PLEURA: Interstitial prominence. Low lung volumes. No definite consolidation. No pneumothorax. HEART, MEDIASTINUM AND ANIKET: Unchanged. BONES AND SOFT TISSUES: No acute abnormality. IMPRESSION: No acute abnormality. WSN: [id number] Ordering Physician: Nadeem Chang Dictated By: Jasvir De Luna MD Dictated Date/Time: 11/25/20 9:08 am Reviewed By: Jasvir De Luna MD Signed By: Jasvir De Luna MD Signed Date/Time: 11/25/20 9:08 am Transcribed By: KEYSHA Transcribed Date/Time: 11/25/20 9:07 am * Exam Date Time Procedure Performing Provider Status 11/25/20 9:05 AM Wrist Comp Min 3 Views Left Abner Sosa; Auth (Verified) Notes: (Wrist Comp Min 3 Views Left) Reason For Exam: Trauma RESULT: Wrist Comp Min 3 Views Left Wrist Comp Min 3 Views Left Hx of Present Illness: pt arrived from home c o fall. Pt hit chin and left wrist, reporting 6 10 left upper abd pain. Denies LOC, denies feelings of numbness tingling; Reason: Trauma; Clinical Question(s): Fracture COMPARISON: None. FINDINGS: Old ulnar styloid fracture. Deformity of the distal ulna and radius consistent with remote injury. No definite acute fracture. Vascular calcifications are noted. IMPRESSION: No acute osseous injury identified. WSN: [id number] Ordering Physician: Nadeem Chang Dictated By: Jasvir De Luna MD Dictated Date/Time: 11/25/20 9:07 am Reviewed By: Jasvir De Luna MD Signed By: Jasvir De Luna MD Signed Date/Time: 11/25/20 9:07 am Transcribed By: KEYSHA Transcribed Date/Time: 11/25/20 9:06 am Vital Signs Most recent to oldest [Reference Range]: 1 2 3 Oxygen Saturation [94-100 %] 99 % (11/25/20 4:11 PM) 98 % (11/25/20 2:12 PM) 100 % (11/25/20 7:57 AM) Pulse Rate [55-90 bpm] 80 bpm (11/25/20 4:11 PM) 81 bpm (11/25/20 2:12 PM) 65 bpm (11/25/20 7:57 AM) Blood Pressure [90-138/55-84 mm Hg] 150/78mm Hg *H* (11/25/20 4:11 PM) 153/80mm Hg *H* (11/25/20 2:12 PM) 142/50mm Hg *H* (11/25/20 7:57 AM) Respiratory Rate [16-30 br/min] 20 br/min (11/25/20 4:11 PM) 19 br/min (11/25/20 2:41 PM) 19 br/min (11/25/20 2:12 PM) Temperature [96.8-100.4 DegF] 98.5 DegF (11/25/20 2:12 PM) 97.5 DegF (11/25/20 7:57 AM) Mode of Delivery (Oxygen) Room air (11/25/20 4:11 PM) Room air (11/25/20 2:12 PM) Room air (11/25/20 7:57 AM) Blood pressure sites Arm, left (11/25/20 4:11 PM) Arm, left (11/25/20 7:57 AM) Temperature Route Oral (11/25/20 2:12 PM) Oral (11/25/20 7:57 AM) Social History Social History Type Response Smoking Status Never (less than 100 in lifetime) entered on: 07/22/19 Sex
[2023-03-19] MEDS: Ondansetron ODT 4 MG TAB.RAPDIS TRANSLINGU (21:05)
--- NOTE | 2023-03-19 21:24 | ECG_ITS ---
Test Reason : EPIGASTRIC PAIN Blood Pressure : / mmHG Vent. Rate : 099 BPM Atrial Rate : 099 BPM P-R Int : 144 ms QRS Dur : 082 ms QT Int : 368 ms P-R-T Axes : 039 -07 051 degrees QTc Int : 472 ms Normal sinus rhythm Minimal voltage criteria for LVH, may be normal variant ( R in aVL ) Borderline ECG When compared with ECG of 29-DEC-2022 12:08, Vent. rate has increased BY 50 BPM Referred By: Katja Morris Electronically Signed By:SHANTI JOHNSON MD
[2023-03-19 21:40] LABS: VBG Base Excess 1.5 mmol/L; VBG HCO3 23 mmol/L (22-26); VBG pCO2 29 mmHg; VBG pH 7.51 (7.32-7.43); VBG pO2 210 mmHg
[2023-03-19 21:40] LABS: Glucose, Whole Blood 483 mg/dL (60-115)
[2023-03-19 21:49] LABS: Venous Blood Gas Refer to POC result
[2023-03-19 21:57] VITALS: BP 167/81; PULSE 100; RESP 20; TEMP 36.5; O2SAT 100
[2023-03-19 22:05] LABS: Glucose, Whole Blood 556 mg/dL (60-115)
[2023-03-19] MEDS: 0.9 % Sodium Chloride 2,000 ML 999 ML IVCONT (22:09)
[2023-03-19] MEDS: Insulin Regular, Human 100 UNIT/ML 3 ML VIAL 10 UNIT IVPUSH (22:12)
[2023-03-19] MEDS: Prochlorperazine Edisylate 10 MG/2 ML VIAL IVPUSH (22:12)
[2023-03-19 22:43] LABS: Beta-Hydroxybutyrate 3.37 mmol/L (0.02-0.27)
[2023-03-19 23:12] LABS: Troponin-I High Sensitivity 7.6 ng/L (<3.5-17.0)
[2023-03-19 23:41] LABS: Glucose, Whole Blood 449 mg/dL (60-115)
[2023-03-20] VITALS (19 sets, daily range): BP systolic 118–207; BP diastolic 45–97; PULSE 84–121; RESP 12–26; TEMP 36.1–37.1; O2SAT 98–100
[2023-03-20] MEDS: Insulin Regular, Human 100 UNIT/ML 3 ML VIAL IVPUSH (00:02)
[2023-03-20 00:57] LABS: Glucose, Whole Blood 430 mg/dL (60-115)
[2023-03-20 01:41] LABS: Glucose, Whole Blood 453 mg/dL (60-115)
[2023-03-20] MEDS: Lactated Ringers 1,000 ML 999 ML IV (01:59)
[2023-03-20] MEDS: Insulin Regular, Human 100 UNIT/ML 3 ML VIAL 10 UNIT IVPUSH ×2 (02:14→11:16)
[2023-03-20 02:23] LABS: Glucose, Whole Blood 461 mg/dL (60-115)
[2023-03-20 02:40] LABS: COVID-19 Test Negative (Negative); IDNOW Serial# 08D9AD1C; IDNOW Serial# BCCEAD1C; Influenza A Negative (Negative); Influenza B2 Negative (Negative)
[2023-03-20 03:31] LABS: Glucose, Whole Blood 381 mg/dL (60-115)
[2023-03-20 04:41] LABS: Appearance Urine Clear; Color Urine Yellow; Glucose Urine UA >=1000 mg/dL (Negative); Leukocyte Esterase Urine Negative (Negative); Nitrite Urine Negative (Negative); PH 6.5 (5.0-9.0); Specific Gravity - Urine 1.015 (1.005-1.025); UMIC TRIGGER UACC YES; Urine Blood Trace (Negative); Urine Ketones Trace mg/dL (Negative); Urine Protein 300 (3+) mg/dL (Neg-Trace)
[2023-03-20 04:45] LABS: Bacteria Urine None Seen (None Seen); Hyaline Casts Urine 0-2 /LPF (0-2); RBC Urine 0-2 /HPF (0-2); Squamous Epithelial Cell Urine 0-2 /HPF (0-2); WBC Urine 0-5 /HPF (0-5)
--- NOTE | 2023-03-20 05:13 | PC.NURSE ---
Pt again noted to be vomiting. Appears drowsy, and with complaints of headache at this time. States she did not have a headache when she arrives. Dr. Cantu.
[2023-03-20 05:48] LABS: Glucose, Whole Blood 435 mg/dL (60-115)
[2023-03-20 06:33] LABS: Glucose, Whole Blood 415 mg/dL (60-115)
[2023-03-20 07:01] LABS: Glucose, Whole Blood 460 mg/dL (60-115)
--- NOTE | 2023-03-20 07:48 | PC.NURSE ---
pt tachycardic in the 120s, blood glucose 460. MD Cantu made aware. awaiting orders at this time
[2023-03-20] MEDS: Lactated Ringers 1,000 ML 250 ML IV (09:50)
[2023-03-20 09:52] LABS: Glucose, Whole Blood 467 mg/dL (60-115)
--- NOTE | 2023-03-20 10:08 | PC.NURSE ---
pt speaking to t/w in [facility] [employer] [place], requested small equipment operator services for assistance, when small equipment operator at bedside pt refused to respond to this financial writer and small equipment operator or answer questions. LR started through right AISHWARYA.
--- NOTE | 2023-03-20 11:16 | PHA.MEDREC ---
Addendum entered by Jeanne Walker [facility] 03/20/23 11:26: Spoke to Dr. La, said not to continue antibiotics and to calculate the total daily dose on insulin glargine. Toujeo 40 units x 0.8 = 32 units plus 12 reported units of Lantus = 44 units total of insulin glargine reported on med rec Original Note: Pharmacy Consult ? Medication Reconciliation Pharmacy has completed the medication reconciliation. Spoke to patient's daughter Sara over the phone ([phone]) who went over medication list. Most matched claim history. Patient's daughter reports patient taking both Lantus 12 units at bedtime as well as Toujeo 40 units at bedtime. She also reports patient taking cephalexin 500mg TID ( filled 03/03 x 7 days) as well as Xifaxan BID which has not been filled since Dec 24 x 30 days. Notified provider about both of these discrepancies on how he would like me to proceed
[2023-03-20] MEDS: Labetalol HCL 100 MG/20 ML VIAL 10 MG IVPUSH ×2 (11:17→23:26)
[2023-03-20] MEDS: Acetaminophen 325 MG TABLET 650 MG PO ×2 (11:29→22:25)
--- NOTE | 2023-03-20 11:30 | PC.NURSE ---
pt contineus to have limited verbalization with this automotive service writer and analog ic design architect. pt did report she wants to leave, reporting that she is uncomfortable. offered to reposition pt, she said no I just want to go . DR. Horton made aware at this time. pt is confused. medicated per JUL.
[2023-03-20 12:29] LABS: Anion Gap 22 (12-20); Blood Urea Nitrogen 27 mg/dL (9-16); Calcium 9.8 mg/dL (8.4-10.2); Carbon Dioxide 21 mmol/L (22-29); Chloride 103 mmol/L (96-108); Creatinine Clr Calc Pharmacy 21.3; Estimated Glomerular Filt Rate 27; Glucose Random 496 mg/dL (60-115); Potassium 4.3 mmol/L (3.3-5.1); Sodium 142 mmol/L (135-145)
[2023-03-20 12:33] LABS: Glucose, Whole Blood 413 mg/dL (60-115)
[2023-03-20] MEDS: Insulin Regular/NS 100 UNIT/100 ML PLAST..BAG 6 UNIT IVCONT (13:25)
[2023-03-20] MEDS: Heparin Sodium,Porcine 5,000 UNIT/ML VIAL 5000 UNIT SUBCUT ×2 (14:26→20:28)
[2023-03-20 14:27] LABS: Glucose, Whole Blood 373 mg/dL (60-115)
--- NOTE | 2023-03-20 14:53 | PM.CCHP ---
History of Present Illness Date of Service: 03/20/23 Chief Complaint: Nausea and vomiting 72-year-old lady with underlying diabetes mellitus, CKD, hypertension autoimmune hepatitis/cholangitis, CVA admitted on 03/20/2023 with 45 day history of nausea and vomiting. On ER evaluation patient with hyperglycemia and elevated beta hydroxybutyrate, initially with no significant gap acidosis, patient monitored in the emergency room and treated with intermittent insulin and fluids, however her laboratory studies worsened and transition to anion gap acidosis. She was started on insulin drip and admitted to intensive care unit. Review of Systems Constitutional: Constitutional: Denies daytime sleepiness, Denies excessive sweating, Denies fatigue, Denies fever(s), Denies lethargy, Denies malaise, Denies night sweats, Denies snoring and Denies weight loss Eyes: Eyes: Denies blurry vision and Denies itchy eyes ENT: Denies nasal congestion, Denies post nasal drip, Denies sinus pain, Denies sinus pressure and Denies other ( Thrush) Cardiovascular: Cardiovascular: Denies chest pain, Denies pedal edema, Denies dyspnea, Denies orthopnea and Denies paroxysmal nocturnal dyspnea Respiratory: Respiratory: Denies cough, Denies hemoptysis, Denies excessive phlegm production, Denies dyspnea, Denies snoring and Denies wheezing Gastrointestinal: Gastrointestinal: Denies abdominal pain, Denies heartburn, Reports nausea and Reports vomiting Musculoskeletal: Musculoskeletal: Denies myalgias, Denies arthralgias and Denies joint swelling Integumentary/Breasts: Skin/Breast: Denies rash Neurologic: Denies memory loss and Denies seizure-like activity Psychiatric: Psychiatric: Denies abnormal sleep pattern, Denies anxiety and Denies memory loss Endocrine: Endocrine: Denies excessive sweating, Denies fatigue and Denies heat intolerance Hematologic/Lymphatic: Hematologic/Lymphatic: Denies easy bruising Allergic/Immunologic: Allergic/Immunologic: Denies itchy eyes, Denies seasonal rhinorrhea and Denies wheezing PMFSH Past Medical History Medical History (Updated 03/20/23 @ 14:56 by Neo Elder MD) Autoimmune cholangitis CVA (cerebral vascular accident) Normocytic anemia CKD (chronic kidney disease) Fecal occult blood test positive Anemia Pancreatic cyst GERD (gastroesophageal reflux disease) Iron deficiency anemia Pancreatitis Depression Hypertriglyceridemia Vitamin D deficiency Constipated Type 2 diabetes mellitus with hyperglycemia Type 2 diabetes mellitus with chronic kidney disease Essential hypertension Hyperlipidemia LDL goal <100 Obesity (BMI 30-39.9) Diabetes mellitus with hyperglycemia Family History Family History Father No problems noted. Mother Diabetes mellitus CVD (cardiovascular disease) Sister Cancer Son Diabetes mellitus Surgical History Surgical History (Updated 03/06/23 @ 15:50 by Jennifer Quinteros) History of esophagogastroduodenoscopy (EGD) Hx of heart bypass surgery History of appendectomy Hx of colonoscopy Hx of cholecystectomy Social History Social History Household Members: Other Household Members Other:: daughter Housing: Apartment Housing Other:: [employer] services Do you presently have visiting nurse or other home services: Yes ([employer]) Alcohol intake: never Patient Tobacco Use Status: Never used Tobacco Advance Directives: Yes Advance Directives Information Provided: No Advance Directives on File: No Advance Directives Date on File: 02/06/21 service: No Current occupational status: disabled Meds Allergies Allergy/AdvReac Type Severity Reaction Status Date / Time No Known Allergies Allergy Verified 03/19/23 13:03 [No Known Allergies*] Active Medications: Current Medications Dextrose (Dextrose 50 % 25 Gm/50 Ml Syringe) 25 gm IVPUSH Q30M PRN PRN Reason: BG < 70 Heparin Sodium (Porcine) (Heparin Sodium,Porcine 5,000 Unit/Ml Vial) 5,000 unit SUBCUT Q8H [facility] Last Admin: 03/20/23 14:26 Dose: 5,000 unit Insulin Human Regular (Myxredlin) 100 unit in 100 mls @ 6 mls/hr IVCONT .[id number] [facility]; Protocol Last Titration: 03/20/23 14:25 Dose: 9 unit/hr, 9 mls/hr Lactated Ringer's (Lr) 1,000 mls @ 100 mls/hr IVCONT .Q10H [facility] Home Medications Medication Instructions Recorded Confirmed Last Taken Type aspirin 81 mg tablet,delayed 81 mg PO DAILY 02/27/20 03/20/23 03/19/23 History release (Adult Aspirin Regimen) cholecalciferol (vitamin D3) 50 2,000 unit PO DAILY 02/27/20 03/20/23 03/19/23 History mcg (2,000 unit) capsule metoprolol tartrate 25 mg tablet 12.5 mg PO DAILY 02/27/20 03/20/23 03/19/23 History cetirizine 10 mg capsule (All Day 10 mg PO DAILY PRN Allergic 11/16/20 03/20/23 04/05/21 History Allergy (cetirizine)) Symptoms linaclotide 145 mcg capsule 145 mcg PO DAILY PRN GI UPSET 12/29/22 03/20/23 Unknown History (Linzess) pantoprazole 40 mg tablet,delayed 40 mg PO DAILY 12/29/22 03/20/23 03/19/23 History release quetiapine 25 mg tablet 25 mg PO Q12H PRN anxiety 12/29/22 03/20/23 Unknown History trazodone 100 mg tablet 100 mg PO BEDTIME 12/29/22 03/20/23 03/19/23 History acetaminophen 500 mg tablet 500 mg PO Q6H PRN mild pain 03/20/23 03/20/23 Unknown History insulin glargine 100 unit/mL (3 44 unit subcut BEDTIME 03/20/23 03/20/23 Unknown History mL) subcutaneous pen (Lantus Solostar U-100 Insulin) insulin lispro 100 unit/mL 12 unit subcut TID 03/20/23 03/20/23 03/19/23 History subcutaneous pen multivitamin with folic acid 400 1 tab PO QAM 03/20/23 03/20/23 03/19/23 History mcg tablet (Daily-Katie (with folic acid)) Physical Exam Vital Signs: Vital Signs: Last Vital Signs Temp 97.7 F 03/20/23 07:32 Pulse 95 03/20/23 12:30 Resp 12 03/20/23 12:30 BP 123/50 L 03/20/23 12:30 Pulse Ox 99 03/20/23 12:30 O2 Del Method Room Air 03/20/23 12:30 BMI result Body Mass Index 33.0 Results Labs 03/19/23 15:31 03/20/23 12:04 Labs: Laboratory Results - last 24 hr 03/19/23 03/19/23 03/19/23 15:31 19:29 21:28 MCV 79.7 L MCH 25.8 L MCHC 32.4 RDW 15.8 Plt Count TNP MPV 11.6 Immature Gran % (Auto) 0.9 H Neut % (Auto) 66.9 Lymph % (Auto) 22.3 [place] % (Auto) 7.0 Eos % (Auto) 2.1 Baso % (Auto) 0.8 Lymph # (Auto) 2.0 [place] # (Auto) 0.6 Eos # (Auto) 0.2 Baso # (Auto) 0.1 Abs Immat Gran (auto) 0.08 H Absolute Neuts (auto) 5.9 Absolute Nucleated RBC 0.000 Nucleated RBC % (auto) 0.0 Smear Tech's Comments VERIFIED VBG pH VBG pCO2 VBG pO2 VBG HCO3 VBG O2 Saturation VBG Base Excess Anion Gap 18 Estim Creat Clear Calc 18.2 Estimated GFR 23 POC Glucose 483 H* Random Glucose 547 H* Calcium 9.9 Magnesium 2.2 Total Bilirubin 0.3 AST 30 ALT 15 Alkaline Phosphatase 239 H Total Protein 7.6 Albumin 3.5 Beta-Hydroxybutyrate 3.37 H Urine Color Urine Appearance Urine pH Ur Specific [place] Urine Protein Urine Glucose (UA) Urine Ketones Urine Blood Urine Nitrite Ur Leukocyte Esterase Urine RBC Urine WBC Ur Squamous Epith Cells Urine Bacteria Hyaline Casts COVID-19 (LESLY) COVID-19 Clin Com Influenza Type A (MAGO) Influenza Type B (MAGO) Influenza A & B Note 03/19/23 03/19/23 03/19/23 21:33 22:01 23:36 MCV MCH MCHC RDW Plt Count MPV Immature Gran % (Auto) Neut % (Auto) Lymph % (Auto) [place] % (Auto) Eos % (Auto) Baso % (Auto) Lymph # (Auto) [place] # (Auto) Eos # (Auto) Baso # (Auto) Abs Immat Gran (auto) Absolute Neuts (auto) Absolute Nucleated RBC Nucleated RBC % (auto) Smear Tech's Comments VBG pH 7.51 H VBG pCO2 29 VBG pO2 210 VBG HCO3 23 VBG O2 Saturation 99.0 VBG Base Excess 1.5 Anion Gap Estim Creat Clear Calc Estimated GFR POC Glucose 556 H* 449 H* Random Glucose Calcium Magnesium Total Bilirubin AST ALT Alkaline Phosphatase Total Protein Albumin Beta-Hydroxybutyrate Urine Color Urine Appearance Urine pH Ur Specific [place] Urine Protein Urine Glucose (UA) Urine Ketones Urine Blood Urine Nitrite Ur Leukocyte Esterase Urine RBC Urine WBC Ur Squamous Epith Cells Urine Bacteria Hyaline Casts COVID-19 (LESLY) COVID-19 Clin Com Influenza Type A (MAGO) Influenza Type B (MAGO) Influenza A & B Note 03/19/23 03/20/23 03/20/23 23:37 00:53 01:36 MCV MCH MCHC RDW Plt Count MPV Immature Gran % (Auto) Neut % (Auto) Lymph % (Auto) [place] % (Auto) Eos % (Auto) Baso % (Auto) Lymph # (Auto) [place] # (Auto) Eos # (Auto) Baso # (Auto) Abs Immat Gran (auto) Absolute Neuts (auto) Absolute Nucleated RBC Nucleated RBC % (auto) Smear Tech's Comments VBG pH VBG pCO2 VBG pO2 VBG HCO3 VBG O2 Saturation VBG Base Excess Anion Gap Estim Creat Clear Calc Estimated GFR POC Glucose 415 H* 430 H* 453 H* Random Glucose Calcium Magnesium Total Bilirubin AST ALT Alkaline Phosphatase Total Protein Albumin Beta-Hydroxybutyrate Urine Color Urine Appearance Urine pH Ur Specific [place] Urine Protein Urine Glucose (UA) Urine Ketones Urine Blood Urine Nitrite Ur Leukocyte Esterase Urine RBC Urine WBC Ur Squamous Epith Cells Urine Bacteria Hyaline Casts COVID-19 (LESLY) COVID-19 Clin Com Influenza Type A (MAGO) Influenza Type B (MAGO) Influenza A & B Note 03/20/23 03/20/23 03/20/23 02:17 03:27 04:35 MCV MCH MCHC RDW Plt Count MPV Immature Gran % (Auto) Neut % (Auto) Lymph % (Auto) [place] % (Auto) Eos % (Auto) Baso % (Auto) Lymph # (Auto) [place] # (Auto) Eos # (Auto) Baso # (Auto) Abs Immat Gran (auto) Absolute Neuts (auto) Absolute Nucleated RBC Nucleated RBC % (auto) Smear Tech's Comments VBG pH VBG pCO2 VBG pO2 VBG HCO3 VBG O2 Saturation VBG Base Excess Anion Gap Estim Creat Clear Calc Estimated GFR POC Glucose 461 H* 381 H* Random Glucose Calcium Magnesium Total Bilirubin AST ALT Alkaline Phosphatase Total Protein Albumin Beta-Hydroxybutyrate Urine Color Yellow Urine Appearance Clear Urine pH 6.5 Ur Specific [place] 1.015 Urine Protein 300 (3+) H Urine Glucose (UA) >=1000 H Urine Ketones Trace Urine Blood Trace H Urine Nitrite Negative Ur Leukocyte Esterase Negative Urine RBC 0-2 Urine WBC 0-5 Ur Squamous Epith Cells 0-2 Urine Bacteria None Seen Hyaline Casts 0-2 COVID-19 (LESLY) Negative COVID-19 Clin Com See Note Influenza Type A (MAGO) Negative Influenza Type B (MAGO) Negative Influenza A & B Note See Note 03/20/23 03/20/23 03/20/23 05:00 06:57 09:48 MCV MCH MCHC RDW Plt Count MPV Immature Gran % (Auto) Neut % (Auto) Lymph % (Auto) [place] % (Auto) Eos % (Auto) Baso % (Auto) Lymph # (Auto) [place] # (Auto) Eos # (Auto) Baso # (Auto) Abs Immat Gran (auto) Absolute Neuts (auto) Absolute Nucleated RBC Nucleated RBC % (auto) Smear Tech's Comments VBG pH VBG pCO2 VBG pO2 VBG HCO3 VBG O2 Saturation VBG Base Excess Anion Gap Estim Creat Clear Calc Estimated GFR POC Glucose 435 H* 460 H* 467 H* Random Glucose Calcium Magnesium Total Bilirubin AST ALT Alkaline Phosphatase Total Protein Albumin Beta-Hydroxybutyrate Urine Color Urine Appearance Urine pH Ur Specific [place] Urine Protein Urine Glucose (UA) Urine Ketones Urine Blood Urine Nitrite Ur Leukocyte Esterase Urine RBC Urine WBC Ur Squamous Epith Cells Urine Bacteria Hyaline Casts COVID-19 (LESLY) COVID-19 Clin Com Influenza Type A (MGAO) Influenza Type B (MAGO) Influenza A & B Note 03/20/23 03/20/23 03/20/23 12:04 12:30 14:24 MCV MCH MCHC RDW Plt Count MPV Immature Gran % (Auto) Neut % (Auto) Lymph % (Auto) [place] % (Auto) Eos % (Auto) Baso % (Auto) Lymph # (Auto) [place] # (Auto) Eos # (Auto) Baso # (Auto) Abs Immat Gran (auto) Absolute Neuts (auto) Absolute Nucleated RBC Nucleated RBC % (auto) Smear Tech's Comments VBG pH VBG pCO2 VBG pO2 VBG HCO3 VBG O2 Saturation VBG Base Excess Anion Gap 22 H Estim Creat Clear Calc 21.3 Estimated GFR 27 POC Glucose 413 H* 373 H* Random Glucose 496 H* Calcium 9.8 Magnesium Total Bilirubin AST ALT Alkaline Phosphatase Total Protein Albumin Beta-Hydroxybutyrate Urine Color Urine Appearance Urine pH Ur Specific [place] Urine Protein Urine Glucose (UA) Urine Ketones Urine Blood Urine Nitrite Ur Leukocyte Esterase Urine RBC Urine WBC Ur Squamous Epith Cells Urine Bacteria Hyaline Casts COVID-19 (LESLY) COVID-19 Clin Com Influenza Type A (MAGO) Influenza Type B (MAGO) Influenza A & B Note Imaging Radiologist's Impressions: Impressions Chest X-Ray 03/19/23 22:17 IMPRESSION: Hypoexpanded with basilar markings more likely due to atelectasis. Abdomen/Pelvis CT 03/20/23 00:24 IMPRESSION: Irregular liver contour suggests hepatocellular disease/cirrhosis. Retained stool throughout the colon. The appendix is not confidently seen as a separate structure. Distended urinary bladder. T12 and L2 compression fractures with spinal canal narrowing. Fleischner guidelines were followed. Head CT 03/20/23 05:32 IMPRESSION: Cerebral volume loss and mild to moderate bilateral periventricular and central white matter diminished attenuation which is nonspecific but likely to represent microvascular disease. 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 There is no acute intracranial abnormality. Assessment and Plan (1) DKA (diabetic ketoacidosis): Status: Acute (2) Nausea & vomiting: Status: Acute (3) Acute kidney injury superimposed on CKD: Status: Acute (4) CHF (congestive heart failure): Status: Acute (5) Type 2 diabetes mellitus with hyperglycemia: Qualifiers: Diabetes mellitus digital data analyst insulin use: with digital data analyst use Qualified Code(s): E11.65 - Type 2 diabetes mellitus with hyperglycemia; Z79.4 - correction (current) use of insulin Status: Acute (6) Autoimmune hepatitis: Status: Acute Plan Assessment: 72-year-old lady admitted with diabetic ketoacidosis requiring insulin drip Plan: Neuro: No acute issues. Cardiac: No acute issues. Underlying chronic congestive heart failure and hypertension. Pulmonary: No acute issues. Renal: Acute on chronic kidney injury secondary to diabetic ketoacidosis. Non oliguric. Continue to monitor renal indices and urine output. Endo: Diabetic ketoacidosis, now on insulin drip, continue to titrate off as tolerated. GI: No acute issues. ID: No acute issues Heme/Onc: No acute issues. Psych: No acute issues. Miscellaneous: No acute issues. Prophylaxis: Heparin Diet: Nothing by mouth
[2023-03-20] MEDS: Lactated Ringers 1,000 ML 100 ML IVCONT (15:02)
[2023-03-20 16:07] LABS: Glucose, Whole Blood 305 mg/dL (60-115)
[2023-03-20 16:07] LABS: Glucose, Whole Blood 375 mg/dL (60-115)
[2023-03-20 16:09] LABS: Anion Gap 16 (12-20); Blood Urea Nitrogen 29 mg/dL (9-16); Carbon Dioxide 24 mmol/L (22-29); Chloride 107 mmol/L (96-108); Estimated Glomerular Filt Rate 31; Glucose Random 367 mg/dL (60-115); Potassium 4.8 mmol/L (3.3-5.1); Sodium 142 mmol/L (135-145)
--- NOTE | 2023-03-20 16:31 | PC.NURSE ---
Patient arrived to unit at 1445 via stretcher from ED. Patient awake, VSS. Unable to obtain IV - VO Dr Elder to obtain IV in foot. #22 PRN Angio obtained in left foot - LR @ 100cc/hr started. Insulin gtt administered per EMAR. Air Brake Rigger at bedside for admission - unable to assess. Patient very lethargic, arousable to noxious stimuli but unable to stay awake. MD notified - VBG to be ordered. VSS at this time.
[2023-03-20 16:57] LABS: ABG Base Excess 1.4 mmol/L; ABG HCO3 25 mmol/L (22-26); ABG pCO2 37 mmHg (32-45); ABG pH 7.43 (7.35-7.45); ABG pO2 95 mmHg (83-108)
[2023-03-20 17:00] LABS: Glucose, Whole Blood 233 mg/dL (60-115)
[2023-03-20] MEDS: Dextrose 5 % and Lactated Ring 1,000 ML 125 ML IVCONT ×2 (17:05→23:27)
[2023-03-20 17:58] LABS: ABG Refer to POC result
[2023-03-20 18:07] LABS: Glucose, Whole Blood 135 mg/dL (60-115)
[2023-03-20 19:18] LABS: Glucose, Whole Blood 106 mg/dL (60-115)
[2023-03-20 20:13] LABS: Glucose, Whole Blood 91 mg/dL (60-115)
[2023-03-20] MEDS: Insulin Glargine,Hum.rec.anlog 100 UNIT/ML 10 ML VIAL 20 UNIT SUBCUT (20:28)
[2023-03-20 21:21] LABS: Glucose, Whole Blood 106 mg/dL (60-115)
[2023-03-20] MEDS: ondansetron HCL 4 MG/2 ML VIAL IVPUSH (22:25)
[2023-03-21] VITALS (26 sets, daily range): BP systolic 106–225; BP diastolic 37–108; PULSE 75–100; RESP 12–27; TEMP 36.1–37.1; O2SAT 82–100; BMI 36.6
[2023-03-21 00:32] LABS: Glucose, Whole Blood 289 mg/dL (60-115)
[2023-03-21] MEDS: Insulin Regular/NS 100 UNIT/100 ML PLAST..BAG IVCONT (00:47)
[2023-03-21] MEDS: diphenhydrAMINE HCL 50 MG/ML VIAL 25 MG IVPUSH (00:55)
[2023-03-21 02:03] LABS: Glucose, Whole Blood 298 mg/dL (60-115)
[2023-03-21] MEDS: niCARdipine HCL 25 MG in 0.9 % Sodium Chloride 250 ML 26 MG IVCONT (02:44)
[2023-03-21 03:23] LABS: Glucose, Whole Blood 269 mg/dL (60-115)
[2023-03-21 04:05] LABS: Glucose, Whole Blood 262 mg/dL (60-115)
[2023-03-21 05:11] LABS: Glucose, Whole Blood 244 mg/dL (60-115)
[2023-03-21] MEDS: ondansetron HCL 4 MG/2 ML VIAL IVPUSH (05:55)
[2023-03-21 05:56] LABS: Glucose, Whole Blood 222 mg/dL (60-115)
[2023-03-21 07:09] LABS: Glucose, Whole Blood 154 mg/dL (60-115)
[2023-03-21 07:55] LABS: Venous Blood Gas Refer to POC result
[2023-03-21 07:55] LABS: VBG Base Excess 9.2 mmol/L; VBG HCO3 30 mmol/L (22-26); VBG pCO2 31 mmHg; VBG pH 7.59 (7.32-7.43); VBG pO2 140 mmHg
[2023-03-21 08:06] LABS: Alanine Aminotransferase 16 U/L (0-31); Albumin Level 3.4 g/dL (3.5-5.0); Alkaline Phosphatase 206 U/L (39-117); Anion Gap 14 (12-20); Aspartate Amino Transferase 25 U/L (5-31); Basophils Percent Auto 0.1 % (0-2); Bilirubin Total 0.3 mg/dL (0.0-1.0); Blood Urea Nitrogen 21 mg/dL (9-16); Calcium 9.8 mg/dL (8.4-10.2); Carbon Dioxide 27 mmol/L (22-29); Chloride 107 mmol/L (96-108); Creatinine Clr Calc Pharmacy 25.2; Eosinophils Percent Auto 0.1 % (0-4); Estimated Glomerular Filt Rate 31; Glucose Random 146 mg/dL (60-115); Hematocrit 34.7 % (37.0-47.0); Hemoglobin 10.7 g/dl (12.0-16.0); Imm Gran Abs Auto 0.06 X10*3/uL (0.00-0.03); Imm Gran Pct Auto 0.4 % (0.0-0.4); Lymphocytes Absolute Auto 2.1 X10*3/uL (1.2-4.9); Lymphocytes Percent Auto 13.7 % (20-40); MANUAL DIFF FLAG SCAN; Magnesium 1.9 mg/dL (1.6-2.6); Mean Corpuscular HGB Conc 30.8 g/dl (31.0-35.0); Mean Corpuscular Hemoglobin 25.1 pg (27.0-33.0); Mean Corpuscular Volume 81.5 fL (80.0-98.0); Monocytes Absolute Auto 0.8 X10*3/uL (0.1-1.2); Monocytes Percent Auto 5.6 % (2-11); Neutrophils Percent Auto 80.1 % (45-73); PLT CLUMP 1; Phosphorus 1.9 mg/dL (2.7-4.5); Potassium 4.3 mmol/L (3.3-5.1); Red Blood Count 4.26 X10*6/uL (4.20-5.50); Red Cell Distribution Width 16.6 % (11.0-16.0); SCAN SMEAR FLAG 1; Sodium 144 mmol/L (135-145); Total Protein 7.4 g/dL (6.5-8.0)
[2023-03-21 08:10] LABS: Glucose, Whole Blood 146 mg/dL (60-115)
[2023-03-21 08:31] LABS: White Blood Count 14.9 X10*3/uL (4.8-10.8)
[2023-03-21 08:32] LABS: SLIDE REVIEW VERIFIED
[2023-03-21 09:20] LABS: Glucose, Whole Blood 197 mg/dL (60-115)
[2023-03-21] MEDS: LORazepam 2 MG/ML VIAL 1 MG IVPUSH ×2 (09:29→15:00)
[2023-03-21] MEDS: cloNIDine 0.1 MG PATCH.TDWK TRANSDERMA (09:48)
[2023-03-21] MEDS: Insulin Glargine,Hum.rec.anlog 100 UNIT/ML 10 ML VIAL 40 UNIT SUBCUT (09:49)
[2023-03-21] MEDS: Sodium,Potassium Phosphates POWD.PACK 2 PACKET PO (09:49)
[2023-03-21 10:16] LABS: Glucose, Whole Blood 198 mg/dL (60-115)
--- NOTE | 2023-03-21 11:01 | PM.CCPN ---
Subjective Subjective Date of Service: 03/21/23 Interval History: 72-year-old lady with underlying diabetes mellitus, CKD, hypertension autoimmune hepatitis/cholangitis, CVA admitted on 03/20/2023 with 45 day history of nausea and vomiting. On ER evaluation patient with hyperglycemia and elevated beta hydroxybutyrate, initially with no significant gap acidosis, patient monitored in the emergency room and treated with intermittent insulin and fluids, however her laboratory studies worsened and transition to anion gap acidosis. She was started on insulin drip and admitted to intensive care unit. No events overnight. Not fully cooperative with care. Titrated off insulin drip. Critical Care Time (minutes): 0 Physical Exam Vital Signs: Vital Signs: Last Vital Signs Temp 97.0 F 03/21/23 07:00 Pulse 99 03/21/23 10:00 Resp 18 03/21/23 10:00 BP 171/79 H 03/21/23 10:00 Pulse Ox 93 03/21/23 10:00 O2 Del Method Room Air 03/21/23 10:00 BMI result Body Mass Index 36.6 Const: General: no acute distress, alert and awake Eyes: Sclerae: sclerae normal EOM: EOMs intact bilaterally Neck: Neck: Yes no lymphadenopathy, Yes trachea midline and Yes supple Resp: Effort & Inspection: normal respiratory effort and no respiratory distress Auscultation: clear to auscultation bilaterally Cardio: Rate: regular rate Rhythm: regular rhythm Heart sounds: no gallops, no murmurs and no rubs GI: Palpation (GI): Soft to palpation and Other GI palpation findings present ( Nontender) Auscultation: normal bowel sounds Extrem: General: Yes no pedal edema, No clubbing and No cyanosis Objective Data Labs 03/21/23 07:45 03/21/23 07:45 Labs: Laboratory Results - last 24 hr 03/20/23 03/20/23 03/20/23 12:04 12:30 14:24 WBC RBC Hgb Hct MCV MCH MCHC RDW Plt Count MPV Immature Gran % (Auto) Neut % (Auto) Lymph % (Auto) [place] % (Auto) Eos % (Auto) Baso % (Auto) Lymph # (Auto) [place] # (Auto) Eos # (Auto) Baso # (Auto) Abs Immat Gran (auto) Absolute Neuts (auto) Absolute Nucleated RBC Nucleated RBC % (auto) Smear Tech's Comments O2 Saturation ABG pH at Pt Temp ABG pCO2 at Pt Temp ABG pO2 at Pt Temp ABG HCO3 ABG Base Excess (Actual) VBG pH VBG pCO2 VBG pO2 VBG HCO3 VBG O2 Saturation VBG Base Excess Sodium 142 Potassium 4.3 D Chloride 103 Carbon Dioxide 21 L Anion Gap 22 H BUN 27 H Creatinine 1.83 H Estim Creat Clear Calc 21.3 Estimated GFR 27 POC Glucose 413 H* 373 H* Random Glucose 496 H* Calcium 9.8 Phosphorus Magnesium Total Bilirubin AST ALT Alkaline Phosphatase Total Protein Albumin 03/20/23 03/20/23 03/20/23 15:00 15:36 16:03 WBC RBC Hgb Hct MCV MCH MCHC RDW Plt Count MPV Immature Gran % (Auto) Neut % (Auto) Lymph % (Auto) [place] % (Auto) Eos % (Auto) Baso % (Auto) Lymph # (Auto) [place] # (Auto) Eos # (Auto) Baso # (Auto) Abs Immat Gran (auto) Absolute Neuts (auto) Absolute Nucleated RBC Nucleated RBC % (auto) Smear Tech's Comments O2 Saturation ABG pH at Pt Temp ABG pCO2 at Pt Temp ABG pO2 at Pt Temp ABG HCO3 ABG Base Excess (Actual) VBG pH VBG pCO2 VBG pO2 VBG HCO3 VBG O2 Saturation VBG Base Excess Sodium 142 Potassium 4.8 Chloride 107 Carbon Dioxide 24 Anion Gap 16 BUN 29 H Creatinine 1.62 H Estim Creat Clear Calc 24.0 Estimated GFR 31 POC Glucose 375 H* 305 H Random Glucose 367 H* Calcium 9.0 D Phosphorus Magnesium Total Bilirubin AST ALT Alkaline Phosphatase Total Protein Albumin 03/20/23 03/20/23 03/20/23 16:52 16:57 18:02 WBC RBC Hgb Hct MCV MCH MCHC RDW Plt Count MPV Immature Gran % (Auto) Neut % (Auto) Lymph % (Auto) [place] % (Auto) Eos % (Auto) Baso % (Auto) Lymph # (Auto) [place] # (Auto) Eos # (Auto) Baso # (Auto) Abs Immat Gran (auto) Absolute Neuts (auto) Absolute Nucleated RBC Nucleated RBC % (auto) Smear Tech's Comments O2 Saturation 100.0 ABG pH at Pt Temp 7.43 ABG pCO2 at Pt Temp 37 ABG pO2 at Pt Temp 95 ABG HCO3 25 ABG Base Excess (Actual) 1.4 VBG pH VBG pCO2 VBG pO2 VBG HCO3 VBG O2 Saturation VBG Base Excess Sodium Potassium Chloride Carbon Dioxide Anion Gap BUN Creatinine Estim Creat Clear Calc Estimated GFR POC Glucose 233 H 135 H Random Glucose Calcium Phosphorus Magnesium Total Bilirubin AST ALT Alkaline Phosphatase Total Protein Albumin 03/20/23 03/20/23 03/20/23 19:14 20:00 21:14 WBC RBC Hgb Hct MCV MCH MCHC RDW Plt Count MPV Immature Gran % (Auto) Neut % (Auto) Lymph % (Auto) [place] % (Auto) Eos % (Auto) Baso % (Auto) Lymph # (Auto) [place] # (Auto) Eos # (Auto) Baso # (Auto) Abs Immat Gran (auto) Absolute Neuts (auto) Absolute Nucleated RBC Nucleated RBC % (auto) Smear Tech's Comments O2 Saturation ABG pH at Pt Temp ABG pCO2 at Pt Temp ABG pO2 at Pt Temp ABG HCO3 ABG Base Excess (Actual) VBG pH VBG pCO2 VBG pO2 VBG HCO3 VBG O2 Saturation VBG Base Excess Sodium Potassium Chloride Carbon Dioxide Anion Gap BUN Creatinine Estim Creat Clear Calc Estimated GFR POC Glucose 106 91 106 Random Glucose Calcium Phosphorus Magnesium Total Bilirubin AST ALT Alkaline Phosphatase Total Protein Albumin 03/21/23 03/21/23 03/21/23 00:28 01:58 03:17 WBC RBC Hgb Hct MCV MCH MCHC RDW Plt Count MPV Immature Gran % (Auto) Neut % (Auto) Lymph % (Auto) [place] % (Auto) Eos % (Auto) Baso % (Auto) Lymph # (Auto) [place] # (Auto) Eos # (Auto) Baso # (Auto) Abs Immat Gran (auto) Absolute Neuts (auto) Absolute Nucleated RBC Nucleated RBC % (auto) Smear Tech's Comments O2 Saturation ABG pH at Pt Temp ABG pCO2 at Pt Temp ABG pO2 at Pt Temp ABG HCO3 ABG Base Excess (Actual) VBG pH VBG pCO2 VBG pO2 VBG HCO3 VBG O2 Saturation VBG Base Excess Sodium Potassium Chloride Carbon Dioxide Anion Gap BUN Creatinine Estim Creat Clear Calc Estimated GFR POC Glucose 289 H 298 H 269 H Random Glucose Calcium Phosphorus Magnesium Total Bilirubin AST ALT Alkaline Phosphatase Total Protein Albumin 03/21/23 03/21/2303/21/23 04:00 05:08 05:52 WBC RBC Hgb Hct MCV MCH MCHC RDW Plt Count MPV Immature Gran % (Auto) Neut % (Auto) Lymph % (Auto) [place] % (Auto) Eos % (Auto) Baso % (Auto) Lymph # (Auto) [place] # (Auto) Eos # (Auto) Baso # (Auto) Abs Immat Gran (auto) Absolute Neuts (auto) Absolute Nucleated RBC Nucleated RBC % (auto) Smear Tech's Comments O2 Saturation ABG pH at Pt Temp ABG pCO2 at Pt Temp ABG pO2 at Pt Temp ABG HCO3 ABG Base Excess (Actual) VBG pH VBG pCO2 VBG pO2 VBG HCO3 VBG O2 Saturation VBG Base Excess Sodium Potassium Chloride Carbon Dioxide Anion Gap BUN Creatinine Estim Creat Clear Calc Estimated GFR POC Glucose 262 H 244 H 222 H Random Glucose Calcium Phosphorus Magnesium Total Bilirubin AST ALT Alkaline Phosphatase Total Protein Albumin 03/21/23 03/21/23 03/21/23 07:06 07:45 07:47 WBC 14.9 H RBC 4.26 Hgb 10.7 L Hct 34.7 L MCV 81.5 MCH 25.1 L MCHC 30.8 L RDW 16.6 H Plt Count TNP MPV TNP Immature Gran % (Auto) 0.4 Neut % (Auto) 80.1 H Lymph % (Auto) 13.7 L [place] % (Auto) 5.6 Eos % (Auto) 0.1 Baso % (Auto) 0.1 Lymph # (Auto) 2.1 [place] # (Auto) 0.8 Eos # (Auto) 0.0 Baso # (Auto) 0.0 Abs Immat Gran (auto) 0.06 H Absolute Neuts (auto) 12.0 H Absolute Nucleated RBC 0.000 Nucleated RBC % (auto) 0.0 Smear Tech's Comments VERIFIED O2 Saturation ABG pH at Pt Temp ABG pCO2 at Pt Temp ABG pO2 at Pt Temp ABG HCO3 ABG Base Excess (Actual) VBG pH 7.59 H VBG pCO2 31 VBG pO2 140 VBG HCO3 30 H VBG O2 Saturation 100.0 VBG Base Excess 9.2 Sodium 144 Potassium 4.3 Chloride 107 Carbon Dioxide 27 Anion Gap 14 BUN 21 H Creatinine 1.63 H Estim Creat Clear Calc 25.2 Estimated GFR 31 POC Glucose 154 H Random Glucose 146 H Calcium 9.8 D Phosphorus 1.9 L Magnesium 1.9 Total Bilirubin 0.3 AST 25 ALT 16 Alkaline Phosphatase 206 H Total Protein 7.4 Albumin 3.4 L 03/21/23 03/21/23 03/21/23 08:07 09:16 10:12 WBC RBC Hgb Hct MCV MCH MCHC RDW Plt Count MPV Immature Gran % (Auto) Neut % (Auto) Lymph % (Auto) [place] % (Auto) Eos % (Auto) Baso % (Auto) Lymph # (Auto) [place] # (Auto) Eos # (Auto) Baso # (Auto) Abs Immat Gran (auto) Absolute Neuts (auto) Absolute Nucleated RBC Nucleated RBC % (auto) Smear Tech's Comments O2 Saturation ABG pH at Pt Temp ABG pCO2 at Pt Temp ABG pO2 at Pt Temp ABG HCO3 ABG Base Excess (Actual) VBG pH VBG pCO2 VBG pO2 VBG HCO3 VBG O2 Saturation VBG Base Excess Sodium Potassium Chloride Carbon Dioxide Anion Gap BUN Creatinine Estim Creat Clear Calc Estimated GFR POC Glucose 146 H 197 H 198 H Random Glucose Calcium Phosphorus Magnesium Total Bilirubin AST ALT Alkaline Phosphatase Total Protein Albumin Progress Note: A&P Assessment and plan (1) DKA (diabetic ketoacidosis): Status: Acute (2) CHF (congestive heart failure): Status: Acute (3) Renal failure (ARF), acute on chronic: Status: Acute Plan Assessment: 72-year-old lady admitted with diabetic ketoacidosis requiring insulin drip Plan: Neuro: No acute issues. Cardiac: No acute issues. Underlying chronic congestive heart failure and hypertension. Hypertensive urgency , resolved, started on clonidine and amlodipine. Pulmonary: No acute issues. Renal: Acute on chronic kidney injury secondary to diabetic ketoacidosis, improving. Non oliguric. Continue to monitor renal indices and urine output. Endo: Diabetic ketoacidosis, resolved now off insulin drip, continue on subcutaneous insulin. GI: No acute issues. ID: No acute issues Heme/Onc: No acute issues. Psych: No acute issues. Miscellaneous: No acute issues. Prophylaxis: Heparin Diet: diabetic Quality Stroke Does the patient have a stroke diagnosis?: No VTE Prior VTE?: No VTE Risk Level:: Medical - moderate - high VTE Device Contraindication: Treatment Not Indicated VTE Drug Contraindication: N/A - Med Ordered
[2023-03-21 11:36] LABS: Glucose, Whole Blood 195 mg/dL (60-115)
[2023-03-21] MEDS: Dextrose 5 % and Lactated Ring 1,000 ML 125 ML IVCONT ×3 (12:32→22:28)
[2023-03-21 13:33] LABS: Glucose, Whole Blood 164 mg/dL (60-115)
[2023-03-21 14:07] LABS: Anion Gap 11 (12-20); Blood Urea Nitrogen 20 mg/dL (9-16); Calcium 8.4 mg/dL (8.4-10.2); Carbon Dioxide 29 mmol/L (22-29); Chloride 109 mmol/L (96-108); Creatinine Clr Calc Pharmacy 27.5; Estimated Glomerular Filt Rate 34; Glucose Random 169 mg/dL (60-115); Potassium 3.6 mmol/L (3.3-5.1); Sodium 145 mmol/L (135-145)
--- NOTE | 2023-03-21 14:43 | PM.EVENT ---
Event Note Date of Service: 03/21/23 Event Note: Day hospitalist update S: got 1 mg Ativan for agitation and now somnolent BG low at 38, given 1 amp D50, and now 128 O: Temp Pulse Resp BP Pulse Ox O2 Del Method 97.2 F 86 17 114/43 L 97 Room Air 03/21/23 14:00 03/21/23 14:00 03/21/23 14:00 03/21/23 14:00 03/21/23 14:00 03/21/23 14:00 Gen: in no acute distress HEENT: sclera anicteric, moist mucus membranes Neck: supple Lungs: clear to auscultation bilaterally Heart: regular rate and rhythm, no murmurs Abd: soft, non-tender, non-distended Ext: no edema Skin: warm/well-perfused Neuro: somnolent A/P: d2 72yo F with DM2, CKD3, HTN, autoimmune cholangitis sent in from GI clinic with 1 wk of N/V admitted to ICU for DKA DKA - transitioned to basal-bolus insulin, DM diet, no electrolyte deficiencies, check A1c hypoglycemia - continue D5LR, decrease Lantus SAM/CKD3 - fluid-resuscitated, recheck BMP in AM HTN - amlodipine, metoprolol autoimmune cholangitis - ursodiol VTE ppx - UFH dispo - anticipate home eventually In my clinical judgment, the patient requires continued hospitalization for the following reasons: ICU stepdown Time Spent With Patient Time: Total time managing care of this patient today ____ minutes.
[2023-03-21 14:58] LABS: Estimated Average Glucose 303 mg/dL; Hemoglobin A1c % 12.2 % (<6.0)
[2023-03-21] MEDS: amLODIPine Besylate 10 MG TABLET PO (14:59)
[2023-03-21] MEDS: Insulin Lispro 100 UNIT/ML 3 ML VIAL SUBCUT (14:59)
[2023-03-21] MEDS: Heparin Sodium,Porcine 5,000 UNIT/ML VIAL 5000 UNIT SUBCUT ×2 (14:59→20:35)
[2023-03-21 16:20] LABS: Glucose, Whole Blood 47 mg/dL (60-115)
[2023-03-21] MEDS: Dextrose 50 % 25 GM/50 ML SYRINGE IVPUSH ×3 (16:33→20:35)
[2023-03-21 16:47] LABS: Glucose, Whole Blood 80 mg/dL (60-115)
[2023-03-21 17:50] LABS: Glucose, Whole Blood 38 mg/dL (60-115)
[2023-03-21 18:28] LABS: Glucose, Whole Blood 128 mg/dL (60-115)
[2023-03-21 18:56] LABS: Glucose, Whole Blood 98 mg/dL (60-115)
[2023-03-21 20:49] LABS: Glucose, Whole Blood 66 mg/dL (60-115)
[2023-03-21 21:04] LABS: Glucose, Whole Blood 175 mg/dL (60-115)
[2023-03-21 22:24] LABS: Glucose, Whole Blood 117 mg/dL (60-115)
[2023-03-21 23:06] LABS: Glucose, Whole Blood 102 mg/dL (60-115)
[2023-03-21 23:55] LABS: Glucose, Whole Blood 94 mg/dL (60-115)
[2023-03-22 01:41] LABS: Glucose, Whole Blood 84 mg/dL (60-115)
[2023-03-22 03:01] LABS: Glucose, Whole Blood 77 mg/dL (60-115)
[2023-03-22 03:51] VITALS: BP 165/74; PULSE 89; RESP 16; TEMP 36.9; O2SAT 98
[2023-03-22 03:57] LABS: Glucose, Whole Blood 104 mg/dL (60-115)
[2023-03-22] MEDS: ondansetron HCL 4 MG/2 ML VIAL IVPUSH (05:13)
[2023-03-22] MEDS: Heparin Sodium,Porcine 5,000 UNIT/ML VIAL 5000 UNIT SUBCUT ×3 (05:14→21:48)
[2023-03-22 06:14] LABS: Glucose, Whole Blood 151 mg/dL (60-115)
[2023-03-22 06:37] LABS: Venous Blood Gas Refer to POC result
[2023-03-22 06:38] LABS: VBG Base Excess 9.3 mmol/L; VBG HCO3 34 mmol/L (22-26); VBG pCO2 47 mmHg; VBG pH 7.46 (7.32-7.43); VBG pO2 45 mmHg
[2023-03-22] MEDS: Dextrose 5 % and Lactated Ring 1,000 ML 125 ML IVCONT (06:50)
[2023-03-22 06:55] LABS: MANUAL DIFF FLAG NO
[2023-03-22 07:07] LABS: Basophils Percent Auto 0.4 % (0-2); Eosinophils Absolute Auto 0.2 X10*3/uL (0.0-0.4); Eosinophils Percent Auto 1.8 % (0-4); Hematocrit 33.7 % (37.0-47.0); Hemoglobin 10.3 g/dl (12.0-16.0); Imm Gran Abs Auto 0.04 X10*3/uL (0.00-0.03); Imm Gran Pct Auto 0.4 % (0.0-0.4); Lymphocytes Absolute Auto 2.1 X10*3/uL (1.2-4.9); Mean Corpuscular HGB Conc 30.6 g/dl (31.0-35.0); Mean Corpuscular Hemoglobin 25.4 pg (27.0-33.0); Mean Corpuscular Volume 83.2 fL (80.0-98.0); Mean Platelet Volume 10.5 fL (9.4-12.3); Monocytes Absolute Auto 0.7 X10*3/uL (0.1-1.2); Monocytes Percent Auto 7.4 % (2-11); Neutrophils Absolute Auto 5.9 x10*3/uL (2.0-8.3); Platelet Count 307 X10*3/uL (160-400); Red Blood Count 4.05 X10*6/uL (4.20-5.50); Red Cell Distribution Width 16.8 % (11.0-16.0); White Blood Count 8.9 X10*3/uL (4.8-10.8)
[2023-03-22 07:16] LABS: Anion Gap 12 (12-20); Blood Urea Nitrogen 14 mg/dL (9-16); Calcium 8.9 mg/dL (8.4-10.2); Carbon Dioxide 28 mmol/L (22-29); Chloride 107 mmol/L (96-108); Creatinine Clr Calc Pharmacy 26.9; Estimated Glomerular Filt Rate 33; Glucose Random 180 mg/dL (60-115); Magnesium 1.8 mg/dL (1.6-2.6); Potassium 3.5 mmol/L (3.3-5.1); Sodium 143 mmol/L (135-145)
[2023-03-22 07:35] VITALS: BP 158/74; PULSE 96; RESP 20; TEMP 36.3; O2SAT 96
[2023-03-22 07:58] LABS: Glucose, Whole Blood 204 mg/dL (60-115)
[2023-03-22] MEDS: Insulin Lispro 100 UNIT/ML 3 ML VIAL SUBCUT ×2 (08:42→12:26)
[2023-03-22] MEDS: Insulin Glargine,Hum.rec.anlog 100 UNIT/ML 10 ML VIAL 20 UNIT SUBCUT (08:42)
[2023-03-22] MEDS: amLODIPine Besylate 10 MG TABLET PO (08:43)
[2023-03-22] MEDS: Aspirin Enteric Coated 81 MG TABLET.DR PO (08:43)
[2023-03-22] MEDS: Cholecalciferol (Vitamin D3) 25 MCG TABLET 50 MCG PO (08:43)
[2023-03-22] MEDS: Multivitamin TABLET 1 TAB PO (08:43)
[2023-03-22] MEDS: Metoprolol Tartrate 12.5 MG HALFTAB PO (08:43)
[2023-03-22] MEDS: QUEtiapine Fumarate 25 MG TABLET PO (08:43)
[2023-03-22] MEDS: Potassium Phosphate/NS 15 MMOL/250 ML PLAST..BAG 62.5 MMOL IV (10:13)
--- NOTE | 2023-03-22 10:37 | HO.PM.IMPN ---
Subjective Subjective Date of Service: 03/22/23 Interval History: This history was taken in Yoruba from the patient. Unable to explain why her DM is so uncontrolled [A1c 6.7 01/01 to 12.2 03/21/23]; denies medication noncompliance N/V resolved, no abd pain Hypoglycemia resolved, eating well Review of Systems Review of Systems: Yes all other systems are reviewed and are negative Physical Exam Vital Signs: Vital Signs: Last Vital Signs Temp 97.4 F 03/22/23 07:35 Pulse 96 03/22/23 07:35 Resp 20 03/22/23 07:35 BP 158/74 H 03/22/23 07:35 Pulse Ox 96 03/22/23 07:35 O2 Del Method Room Air 03/22/23 07:35 BMI result Body Mass Index 36.6 Gen: in no acute distress HEENT: sclera anicteric, moist mucus membranes Neck: supple Lungs: clear to auscultation bilaterally, LIJ peripheral line Heart: regular rate and rhythm, no murmurs Abd: soft, non-tender, non-distended Ext: no edema Skin: warm/well-perfused Neuro: alert and oriented x3, no focal findings Psych: appropriate affect Objective Data Active Medications Amlodipine Besylate (Amlodipine Besylate 10 Mg Tablet) 10 mg PO DAILY [facility]; Protocol Last Admin: 03/22/23 08:43 Dose: 10 mg Documented By: SRUTHI Aspirin (Aspirin Enteric Coated 81 Mg Tablet.) 81 mg PO DAILY [facility] Last Admin: 03/22/23 08:43 Dose: 81 mg Documented By: SRUTHI Dextrose (Dextrose 50 % 25 Gm/50 Ml Syringe) 25 gm IVPUSH Q30M PRN PRN Reason: BG < 70 Last Admin: 03/21/23 20:35 Dose: 25 gm Documented By: AMITA Comments: poc 66; pt. somnelent. Heparin Sodium (Porcine) (Heparin Sodium,Porcine 5,000 Unit/Ml Vial) 5,000 unit SUBCUT Q8H [facility] Last Admin: 03/22/23 05:14 Dose: 5,000 unit Documented By: AMITA Potassium Phosphate (Kphos) 15 mmol in 250 mls @ 62.5 mls/hr IV ONCE ONE Stop: 03/22/23 11:58 Last Admin: 03/22/23 10:13 Dose: 62.5 mls/hr Documented By: SRUTHI Insulin Glargine (Insulin Glargine,Hum.Rec.Anlog 100 Unit/Ml 10 Ml Vial) 20 unit SUBCUT DAILY [facility] Last Admin: 03/22/23 08:42 Dose: 20 unit Documented By: SRUTHI Insulin Human Lispro (Insulin Lispro 100 Unit/Ml 3 Ml Vial) 0 unit SUBCUT QIDACHS [facility]; Protocol Last Admin: 03/22/23 08:42 Dose: 4 unit Documented By: SRUTHI Loratadine (Loratadine 10 Mg Tablet) 10 mg PO DAILY PRN PRN Reason: Allergic Symptoms Metoprolol Tartrate (Metoprolol Tartrate 12.5 Mg Halftab) 12.5 mg PO DAILY [facility]; Protocol Last Admin: 03/22/23 08:43 Dose: 12.5 mg Documented By: SRUTHI Multivitamins/Vitamin C (Multivitamin Tablet) 1 tab PO DAILY [facility] Last Admin: 03/22/23 08:43 Dose: 1 tab Documented By: SRUTHI Non-Formulary Medication (Linaclotide [Linzess]) 145 mcg PO DAILY PRN PRN Reason: GI UPSET Non-Formulary Medication (Ursodiol) 500 mg PO BID [facility] Omeprazole (Omeprazole 20 Mg Capsule.) 20 mg PO DAILY@0630 [facility] Last Admin: 03/22/23 05:38 Dose: Not Given Documented By: AMITA Non-Admin Reason: Nausea Ondansetron HCl (Ondansetron Hcl 4 Mg/2 Ml Vial) 4 mg IVPUSH Q8H PRN PRN Reason: Nausea and Vomiting Last Admin: 03/22/23 05:13 Dose: 4 mg Documented By: AMITA Quetiapine Fumarate (Quetiapine Fumarate 25 Mg Tablet) 25 mg PO Q12H PRN PRN Reason: anxiety Last Admin: 03/22/23 08:43 Dose: 25 mg Documented By: SRUTHI Trazodone HCl (Trazodone Hcl 100 Mg Tablet) 100 mg PO BEDTIME [facility] Last Admin: 03/22/23 03:24 Dose: Not Given Documented By: AMITA Non-Admin Reason: somnolent and hypoglycemic Dr. Yemi alegria. Vitamin D (Cholecalciferol (Vitamin D3) 25 Mcg Tablet) 50 mcg PO DAILY [facility] Last Admin: 03/22/23 08:43 Dose: 50 mcg Documented By: SRUTHI Labs 03/22/23 06:29 03/22/23 06:29 Labs: Laboratory Results - last 24 hr 03/21/23 03/21/23 03/21/23 07:45 11:32 13:28 MCV MCH MCHC RDW Plt Count MPV Immature Gran % (Auto) Neut % (Auto) Lymph % (Auto) [place] % (Auto) Eos % (Auto) Baso % (Auto) Lymph # (Auto) [place] # (Auto) Eos # (Auto) Baso # (Auto) Abs Immat Gran (auto) Absolute Neuts (auto) Absolute Nucleated RBC Nucleated RBC % (auto) VBG pH VBG pCO2 VBG pO2 VBG HCO3 VBG O2 Saturation VBG Base Excess Anion Gap Estim Creat Clear Calc Estimated GFR POC Glucose 195 H 164 H Random Glucose Estimat Average Glucose 303 Hemoglobin A1c % 12.2 H Calcium Phosphorus Magnesium Albumin 03/21/23 03/21/23 03/21/23 13:45 16:13 16:44 MCV MCH MCHC RDW Plt Count MPV Immature Gran % (Auto) Neut % (Auto) Lymph % (Auto) [place] % (Auto) Eos % (Auto) Baso % (Auto) Lymph # (Auto) [place] # (Auto) Eos # (Auto) Baso # (Auto) Abs Immat Gran (auto) Absolute Neuts (auto) Absolute Nucleated RBC Nucleated RBC % (auto) VBG pH VBG pCO2 VBG pO2 VBG HCO3 VBG O2 Saturation VBG Base Excess Anion Gap 11 L Estim Creat Clear Calc 27.5 Estimated GFR 34 POC Glucose 47 L* 80 Random Glucose 169 H Estimat Average Glucose Hemoglobin A1c % Calcium 8.4 D Phosphorus Magnesium Albumin 03/21/23 03/21/23 03/21/23 17:44 18:24 18:52 MCV MCH MCHC RDW Plt Count MPV Immature Gran % (Auto) Neut % (Auto) Lymph % (Auto) [place] % (Auto) Eos % (Auto) Baso % (Auto) Lymph # (Auto) [place] # (Auto) Eos # (Auto) Baso # (Auto) Abs Immat Gran (auto) Absolute Neuts (auto) Absolute Nucleated RBC Nucleated RBC % (auto) VBG pH VBG pCO2 VBG pO2 VBG HCO3 VBG O2 Saturation VBG Base Excess Anion Gap Estim Creat Clear Calc Estimated GFR POC Glucose 38 L* 128 H 98 Random Glucose Estimat Average Glucose Hemoglobin A1c % Calcium Phosphorus Magnesium Albumin 03/21/23 03/21/23 03/21/23 20:29 21:00 22:19 MCV MCH MCHC RDW Plt Count MPV Immature Gran % (Auto) Neut % (Auto) Lymph % (Auto) [place] % (Auto) Eos % (Auto) Baso % (Auto) Lymph # (Auto) [place] # (Auto) Eos # (Auto) Baso # (Auto) Abs Immat Gran (auto) Absolute Neuts (auto) Absolute Nucleated RBC Nucleated RBC % (auto) VBG pH VBG pCO2 VBG pO2 VBG HCO3 VBG O2 Saturation VBG Base Excess Anion Gap Estim Creat Clear Calc Estimated GFR POC Glucose 66 175 H 117 H Random Glucose Estimat Average Glucose Hemoglobin A1c % Calcium Phosphorus Magnesium Albumin 03/21/23 03/21/23 03/22/23 23:02 23:51 01:38 MCV MCH MCHC RDW Plt Count MPV Immature Gran % (Auto) Neut % (Auto) Lymph % (Auto) [place] % (Auto) Eos % (Auto) Baso % (Auto) Lymph # (Auto) [place] # (Auto) Eos # (Auto) Baso # (Auto) Abs Immat Gran (auto) Absolute Neuts (auto) Absolute Nucleated RBC Nucleated RBC % (auto) VBG pH VBG pCO2 VBG pO2 VBG HCO3 VBG O2 Saturation VBG Base Excess Anion Gap Estim Creat Clear Calc Estimated GFR POC Glucose 102 94 84 Random Glucose Estimat Average Glucose Hemoglobin A1c % Calcium Phosphorus Magnesium Albumin 03/22/23 03/22/23 03/22/23 02:57 03:50 06:10 MCV MCH MCHC RDW Plt Count MPV Immature Gran % (Auto) Neut % (Auto) Lymph % (Auto) [place] % (Auto) Eos % (Auto) Baso % (Auto) Lymph # (Auto) [place] # (Auto) Eos # (Auto) Baso # (Auto) Abs Immat Gran (auto) Absolute Neuts (auto) Absolute Nucleated RBC Nucleated RBC % (auto) VBG pH VBG pCO2 VBG pO2 VBG HCO3 VBG O2 Saturation VBG Base Excess Anion Gap Estim Creat Clear Calc Estimated GFR POC Glucose 77 104 151 H Random Glucose Estimat Average Glucose Hemoglobin A1c % Calcium Phosphorus Magnesium Albumin 03/22/23 03/22/23 03/22/23 06:29 06:31 07:52 MCV 83.2 MCH 25.4 L MCHC 30.6 L RDW 16.8 H Plt Count 307 MPV 10.5 Immature Gran % (Auto) 0.4 Neut % (Auto) 66.0 Lymph % (Auto) 24.0 [place] % (Auto) 7.4 Eos % (Auto) 1.8 Baso % (Auto) 0.4 Lymph # (Auto) 2.1 [place] # (Auto) 0.7 Eos # (Auto) 0.2 Baso # (Auto) 0.0 Abs Immat Gran (auto) 0.04 H Absolute Neuts (auto) 5.9 Absolute Nucleated RBC 0.000 Nucleated RBC % (auto) 0.0 VBG pH 7.46 H VBG pCO2 47 VBG pO2 45 VBG HCO3 34 H VBG O2 Saturation 78.0 VBG Base Excess 9.3 Anion Gap 12 Estim Creat Clear Calc 26.9 Estimated GFR 33 POC Glucose 204 H Random Glucose 180 H Estimat Average Glucose Hemoglobin A1c % Calcium 8.9 Phosphorus 2.0 L Magnesium 1.8 Albumin 3.0 L Assessment and Plan (1) DKA (diabetic ketoacidosis): Status: Acute Plan d3 72yo F with DM2, CKD3, HTN, autoimmune cholangitis sent in from GI clinic with 1 wk of N/V admitted to ICU for DKA stepped down to [facility] 03/21/23 DKA - transitioned to basal-bolus insulin, DM diet, no electrolyte deficiencies uncontrolled DM2 - A1c 6.7 to 12.2 over last 3 mo. needs DM education + close follow-up hypoglycemia, resolved - d/c D5LR and halved dose of Lantus, monitor BG SAM/CKD3 - fluid-resuscitated, Cr improved HTN - amlodipine, metoprolol autoimmune cholangitis - ursodiol VTE ppx - UFH dispo - PT consult In my clinical judgment, the patient requires continued hospitalization for the following reasons: DKA, hypoglycemia Total time managing care of this patient today: 40 minutes. Quality Stroke Does the patient have a stroke diagnosis?: No VTE Prior VTE?: No VTE Risk Level:: Medical - moderate - high VTE Device Contraindication: Treatment Not Indicated VTE Drug Contraindication: N/A - Med Ordered
[2023-03-22 11:22] VITALS: BP 161/70; PULSE 91; RESP 20; TEMP 36.4; O2SAT 98
[2023-03-22 11:47] LABS: Glucose, Whole Blood 162 mg/dL (60-115)
[2023-03-22 14:43] LABS: Glucose, Whole Blood 94 mg/dL (60-115)
--- NOTE | 2023-03-22 14:51 | MHC.CM.PN ---
IMM 03/22/23 FEMALE 72 DX DKA AT TIME OF CM ASSESSMENT PATIENT has been medicated and was CONFUSED. INFORMATION FOR CM ASSESSMENT GATHERED BY INTERVIEW WITH PTS DTR [facility] AND REVIEW OF EMR. Patient lives alone. She has [employer] [facility]. Patient uses a walker. Shower bench and a person to assist required to shower safely. DP Home with services vs STR via BLS.
[2023-03-22 15:14] VITALS: BP 142/67; PULSE 77; RESP 21; TEMP 36.3; O2SAT 97
[2023-03-22 16:22] LABS: Glucose, Whole Blood 72 mg/dL (60-115)
[2023-03-22 19:43] VITALS: BP 132/60; PULSE 80; RESP 19; TEMP 36.2; O2SAT 96
[2023-03-22 20:13] LABS: Glucose, Whole Blood 105 mg/dL (60-115)
[2023-03-22 23:29] VITALS: BP 134/60; PULSE 75; RESP 18; TEMP 37.1; O2SAT 98
[2023-03-23] VITALS (8 sets, daily range): BP systolic 112–168; BP diastolic 50–81; PULSE 75–91; RESP 16–20; TEMP 36.5–36.8; O2SAT 98–100; BMI 35.8
[2023-03-23 01:33] LABS: Glucose, Whole Blood 61 mg/dL (60-115)
[2023-03-23 02:04] LABS: Glucose, Whole Blood 96 mg/dL (60-115)
[2023-03-23] MEDS: ondansetron HCL 4 MG/2 ML VIAL IVPUSH (03:27)
[2023-03-23] MEDS: Acetaminophen 325 MG TABLET 650 MG PO ×2 (03:30→12:49)
[2023-03-23] MEDS: Omeprazole 20 MG CAPSULE.DR PO (04:20)
[2023-03-23] MEDS: QUEtiapine Fumarate 25 MG TABLET PO (04:20)
[2023-03-23 04:21] LABS: Glucose, Whole Blood 180 mg/dL (60-115)
[2023-03-23] MEDS: Heparin Sodium,Porcine 5,000 UNIT/ML VIAL 5000 UNIT SUBCUT ×3 (04:21→20:40)
[2023-03-23 07:55] LABS: Anion Gap 13 (12-20); Blood Urea Nitrogen 13 mg/dL (9-16); Calcium 8.2 mg/dL (8.4-10.2); Carbon Dioxide 23 mmol/L (22-29); Chloride 109 mmol/L (96-108); Creatinine Clr Calc Pharmacy 26.4; Estimated Glomerular Filt Rate 33; Glucose Random 198 mg/dL (60-115); Potassium 4.4 mmol/L (3.3-5.1); Sodium 141 mmol/L (135-145)
[2023-03-23 07:57] LABS: Glucose, Whole Blood 166 mg/dL (60-115)
[2023-03-23] MEDS: Insulin Glargine,Hum.rec.anlog 100 UNIT/ML 10 ML VIAL 20 UNIT SUBCUT (08:42)
[2023-03-23] MEDS: amLODIPine Besylate 10 MG TABLET PO (08:42)
[2023-03-23] MEDS: Aspirin Enteric Coated 81 MG TABLET.DR PO (08:42)
[2023-03-23] MEDS: Multivitamin TABLET 1 TAB PO (08:42)
[2023-03-23] MEDS: Metoprolol Tartrate 12.5 MG HALFTAB PO (08:42)
[2023-03-23] MEDS: Cholecalciferol (Vitamin D3) 25 MCG TABLET 50 MCG PO (08:42)
[2023-03-23] MEDS: Insulin Lispro 100 UNIT/ML 3 ML VIAL SUBCUT ×2 (08:43→20:40)
[2023-03-23 12:07] LABS: Glucose, Whole Blood 88 mg/dL (60-115)
--- NOTE | 2023-03-23 14:10 | HO.PM.IMPN ---
Subjective Subjective Date of Service: 03/23/23 Interval History: This history was taken in English from the patient. No complaints- no N/V/abd pain STR recommended; see PT eval Review of Systems Review of Systems: Yes all other systems are reviewed and are negative Physical Exam Vital Signs: Vital Signs: Last Vital Signs Temp 97.7 F 03/23/23 11:26 Pulse 77 03/23/23 11:26 Resp 20 03/23/23 11:26 BP 147/66 H 03/23/23 11:26 Pulse Ox 98 03/23/23 11:26 O2 Del Method Room Air 03/23/23 11:26 BMI result Body Mass Index 35.8 Gen: in no acute distress HEENT: sclera anicteric, moist mucus membranes Neck: supple Lungs: clear to auscultation bilaterally, LIJ peripheral line [per Dr Elder, this is an arterial line but in her left IJ] Heart: regular rate and rhythm, no murmurs Abd: soft, non-tender, non-distended Ext: no edema Skin: warm/well-perfused Neuro: alert and oriented x3, no focal findings Psych: appropriate affect Objective Data Active Medications Acetaminophen (Acetaminophen 325 Mg Tablet) 650 mg PO Q6H PRN PRN Reason: Pain, Mild (Pain Scale 1-3) Last Admin: 03/23/23 12:49 Dose: 650 mg Documented By: JAKOB Amlodipine Besylate (Amlodipine Besylate 10 Mg Tablet) 10 mg PO DAILY [facility]; Protocol Last Admin: 03/23/23 08:42 Dose: 10 mg Documented By: JAKOB Aspirin (Aspirin Enteric Coated 81 Mg Tablet.) 81 mg PO DAILY [facility] Last Admin: 03/23/23 08:42 Dose: 81 mg Documented By: JAKOB Dextrose (Dextrose 50 % 25 Gm/50 Ml Syringe) 25 gm IVPUSH Q30M PRN PRN Reason: BG < 70 Last Admin: 03/21/23 20:35 Dose: 25 gm Documented By: AMITA Comments: poc 66; pt. somnelent. Heparin Sodium (Porcine) (Heparin Sodium,Porcine 5,000 Unit/Ml Vial) 5,000 unit SUBCUT Q8H [facility] Last Admin: 03/23/23 12:49 Dose: 5,000 unit Documented By: JAKOB Insulin Glargine (Insulin Glargine,Hum.Rec.Anlog 100 Unit/Ml 10 Ml Vial) 20 unit SUBCUT DAILY [facility] Last Admin: 03/23/23 08:42 Dose: 20 unit Documented By: JAKOB Insulin Human Lispro (Insulin Lispro 100 Unit/Ml 3 Ml Vial) 0 unit SUBCUT QIDACHS [facility]; Protocol Last Admin: 03/23/23 12:12 Dose: Not Given Documented By: JAKOB Non-Admin Reason: No Insulin Coverage Loratadine (Loratadine 10 Mg Tablet) 10 mg PO DAILY PRN PRN Reason: Allergic Symptoms Metoprolol Tartrate (Metoprolol Tartrate 12.5 Mg Halftab) 12.5 mg PO DAILY [facility]; Protocol Last Admin: 03/23/23 08:42 Dose: 12.5 mg Documented By: JAKOB Multivitamins/Vitamin C (Multivitamin Tablet) 1 tab PO DAILY [facility] Last Admin: 03/23/23 08:42 Dose: 1 tab Documented By: JAKOB Non-Formulary Medication (Linaclotide [Linzess]) 145 mcg PO DAILY PRN PRN Reason: GI UPSET Non-Formulary Medication (Ursodiol) 500 mg PO BID [facility] Omeprazole (Omeprazole 20 Mg Capsule.Dr) 20 mg PO DAILY@0630 [facility] Last Admin: 03/23/23 04:20 Dose: 20 mg Documented By: KEY Ondansetron HCl (Ondansetron Hcl 4 Mg/2 Ml Vial) 4 mg IVPUSH Q8H PRN PRN Reason: Nausea and Vomiting Last Admin: 03/23/23 03:27 Dose: 4 mg Documented By: KEY Quetiapine Fumarate (Quetiapine Fumarate 25 Mg Tablet) 25 mg PO Q12H PRN PRN Reason: anxiety Last Admin: 03/23/23 04:20 Dose: 25 mg Documented By: KEY Trazodone HCl (Trazodone Hcl 100 Mg Tablet) 100 mg PO BEDTIME [facility] Last Admin: 03/22/23 23:16 Dose: Not Given Documented By: KEY Non-Admin Reason: Patient Asleep Vitamin D (Cholecalciferol (Vitamin D3) 25 Mcg Tablet) 50 mcg PO DAILY [facility] Last Admin: 03/23/23 08:42 Dose: 50 mcg Documented By: JAKOB Labs 03/22/23 06:29 03/23/23 07:00 Labs: Laboratory Results - last 24 hr 03/22/23 03/22/23 03/22/23 14:39 16:11 20:10 Anion Gap Estim Creat Clear Calc Estimated GFR POC Glucose 94 72 105 Random Glucose Calcium 03/23/23 03/23/23 03/23/23 01:28 02:00 04:16 Anion Gap Estim Creat Clear Calc Estimated GFR POC Glucose 61 96 180 H Random Glucose Calcium 03/23/23 03/23/23 03/23/23 07:00 07:52 12:02 Anion Gap 13 Estim Creat Clear Calc 26.4 Estimated GFR 33 POC Glucose 166 H 88 Random Glucose 198 H Calcium 8.2 L D Assessment and Plan (1) DKA (diabetic ketoacidosis): Status: Acute Plan d4 72yo F with DM2, CKD3, HTN, autoimmune cholangitis sent in from GI clinic with 1 wk of N/V admitted to ICU for DKA stepped down to [facility] [place] [place] 03/21/23 DKA - transitioned to basal-bolus insulin, DM diet, no electrolyte deficiencies uncontrolled DM2 - A1c 6.7 to 12.2 over last 3 mo. needs DM education + close follow-up. she was on 40 units of Lantus qhs plus 12 units of Humalog tid but here is controlled with 20 units of Lantus qhs plus correction-dose Humalog, raising question of noncompliance at home, which the pt denies. hypoglycemia, resolved - d/c D5LR and halved dose of Lantus, monitor BG SAM/CKD3 - fluid-resuscitated, Cr improved HTN - continue metoprolol; added amlodipine for uncontrolled BP autoimmune cholangitis - ursodiol VTE ppx - UFH dispo - STR recommended In my clinical judgment, the patient requires continued hospitalization for the following reasons: placement Total time managing care of this patient today: 35 minutes. Quality Stroke Does the patient have a stroke diagnosis?: No VTE Prior VTE?: No VTE Risk Level:: Medical - moderate - high VTE Device Contraindication: Treatment Not Indicated VTE Drug Contraindication: N/A - Med Ordered
--- NOTE | 2023-03-23 14:17 | P.DS_ITS ---
DS: Providers Provider Date of Service: 03/23/23 Date of admission: 03/20/23 13:15 Date of discharge: 03/23/23 Primary care physician: Lo Donato MD DS: Diagnosis Discharge Diagnosis (1) DKA (diabetic ketoacidosis): Status: Resolved (2) Uncontrolled type 2 diabetes mellitus with hypoglycemia: Status: Acute (3) Uncontrolled hypertension: Status: Acute (4) Acute worsening of stage 3 chronic kidney disease: Status: Acute DS: Summary Hospital Course Hospital Course: from admission H+P, 03/20/23, by math professor Neo Elder MD: 72-year-old lady with underlying diabetes mellitus, CKD, hypertension autoimmune hepatitis/cholangitis, CVA admitted on 03/20/2023 with 45 day history of nausea and vomiting. On ER evaluation patient with hyperglycemia and elevated beta hydroxybutyrate, initially with no significant gap acidosis, patient monitored in the emergency room and treated with intermittent insulin an d fluids, however her laboratory studies worsened and transition to anion gap acidosis. She was started on insulin drip and admitted to intensive care unit. 72yo F with DM2, CKD3, HTN, autoimmune cholangitis who was sent in from GI clinic with 1 wk of N/V and admitted to ICU for DKA managed with insulin drip. She was stepped down to [facility] 03/21/23. She was transitioned to basal-bolus insulin. Labs notable for A1c 6.7 increasing o 12.2 over last 3 mo. She was on 40 units of Lantus qhs plus 12 units of Humalog tid, but here was controlled and even with 20 units of Lantus qhs plus correction-dose Humalog, raising question of noncompliance at home, which the patient denied. For uncontrolled hypertension, we added amlodipine to lisinopril. She had some degree of SAM on presentation but this resolved and her renal function returned to baseline [which is CKD stage 3]. She was discharged to a SNF for short-term rehabilition. Quality: Safe Use of Opioids Does Pt have an Active Cancer Diagnosis on the Problem List?: No Physical Exam Vital Signs: Vital Signs: Last Vital Signs Temp 97.7 F 03/23/23 11:26 Pulse 77 03/23/23 11:26 Resp 20 03/23/23 11:26 BP 147/66 H 03/23/23 11:26 Pulse Ox 98 03/23/23 11:26 O2 Del Method Room Air 03/23/23 11:26 BMI result Body Mass Index 35.8 Gen: in no acute distress HEENT: sclera anicteric, moist mucus membranes Neck: supple Lungs: clear to auscultation bilaterally Heart: regular rate and rhythm, no murmurs Abd: soft, non-tender, non-distended Ext: no edema Skin: warm/well-perfused Neuro: alert and oriented x3, no focal findings Psych: appropriate affect DS: Data Data Completed and Pending Completed studies during hospitalization [Text1]: Laboratory Results WBC 8.9 X10*3/uL (4.8-10.8) 03/22/23 06:29 RBC 4.05 X10*6/uL (4.20-5.50) L 03/22/23 06:29 Hgb 10.3 g/dl (12.0-16.0) L 03/22/23 06:29 Hct 33.7 % (37.0-47.0) L 03/22/23 06:29 MCV 83.2 fL (80.0-98.0) 03/22/23 06:29 MCH 25.4 pg (27.0-33.0) L 03/22/23 06:29 MCHC 30.6 g/dl (31.0-35.0) L 03/22/23 06:29 RDW 16.8 % (11.0-16.0) H 03/22/23 06:29 Plt Count 307 X10*3/uL (160-400) 03/22/23 06:29 MPV 10.5 fL (9.4-12.3) 03/22/23 06:29 Immature Gran % (Auto) 0.4 % (0.0-0.4) 03/22/23 06:29 Neut % (Auto) 66.0 % (45-73) 03/22/23 06:29 Lymph % (Auto) 24.0 % (20-40) 03/22/23 06:29 [place] % (Auto) 7.4 % (2-11) 03/22/23 06:29 Eos % (Auto) 1.8 % (0-4) 03/22/23 06:29 Baso % (Auto) 0.4 % (0-2) 03/22/23 06:29 Lymph # (Auto) 2.1 X10*3/uL (1.2-4.9) 03/22/23 06:29 [place] # (Auto) 0.7 X10*3/uL (0.1-1.2) 03/22/23 06:29 Eos # (Auto) 0.2 X10*3/uL (0.0-0.4) 03/22/23 06:29 Baso # (Auto) 0.0 X10*3/uL (0.0-0.2) 03/22/23 06:29 Abs Immat Gran (auto) 0.04 X10*3/uL (0.00-0.03) H 03/22/23 06:29 Absolute Neuts (auto) 5.9 x10*3/uL (2.0-8.3) 03/22/23 06:29 Absolute Nucleated RBC 0.000 X10*3/uL (0.0-0.012) 03/22/23 06:29 Nucleated RBC % (auto) 0.0 /100WBC (0.0-0.2) 03/22/23 06:29 Smear Tech's Comments VERIFIED 03/21/23 07:45 O2 Saturation 100.0 % 03/20/23 16:52 ABG pH at Pt Temp 7.43 (7.35-7.45) 03/20/23 16:52 ABG pCO2 at Pt Temp 37 mmHg (32-45) 03/20/23 16:52 ABG pO2 at Pt Temp 95 mmHg (83-108) 03/20/23 16:52 ABG HCO3 25 mmol/L (22-26) 03/20/23 16:52 ABG Base Excess (Actual) 1.4 mmol/L 03/20/23 16:52 VBG pH 7.46 (7.32-7.43) H 03/22/23 06:31 VBG pCO2 47 mmHg 03/22/23 06:31 VBG pO2 45 mmHg 03/22/23 06:31 VBG HCO3 34 mmol/L (22-26) H 03/22/23 06:31 VBG O2 Saturation 78.0 % 03/22/23 06:31 VBG Base Excess 9.3 mmol/L 03/22/23 06:31 Sodium 141 mmol/L (135-145) 03/23/23 07:00 Potassium 4.4 mmol/L (3.3-5.1) D 03/23/23 07:00 Chloride 109 mmol/L (96-108) H 03/23/23 07:00 Carbon Dioxide 23 mmol/L (22-29) 03/23/23 07:00 Anion Gap 13 (12-20) 03/23/23 07:00 BUN 13 mg/dL (9-16) 03/23/23 07:00 Creatinine 1.54 mg/dL (0.5-1.4) H 03/23/23 07:00 Estim Creat Clear Calc 26.4 03/23/23 07:00 Estimated GFR 33 03/23/23 07:00 POC Glucose 88 mg/dL (60-115) 03/23/23 12:02 Random Glucose 198 mg/dL (60-115) H 03/23/23 07:00 Estimat Average Glucose 303 mg/dL 03/21/23 07:45 Hemoglobin A1c % 12.2 % (<6.0) H 03/21/23 07:45 Calcium 8.2 mg/dL (8.4-10.2) L D 03/23/23 07:00 Phosphorus 2.0 mg/dL (2.7-4.5) L 03/22/23 06:29 Magnesium 1.8 mg/dL (1.6-2.6) 03/22/23 06:29 Total Bilirubin 0.3 mg/dL (0.0-1.0) 03/21/23 07:45 AST 25 U/L (5-31) 03/21/23 07:45 ALT 16 U/L (0-31) 03/21/23 07:45 Alkaline Phosphatase 206 U/L (39-117) H 03/21/23 07:45 Troponin I High Sens 7.6 ng/L (<3.5-17.0) D 03/19/23 21:28 Total Protein 7.4 g/dL (6.5-8.0) 03/21/23 07:45 Albumin 3.0 g/dL (3.5-5.0) L 03/22/23 06:29 Beta-Hydroxybutyrate 3.37 mmol/L (0.02-0.27) H 03/19/23 21:28 Urine Color Yellow 03/20/23 04:35 Urine Appearance Clear 03/20/23 04:35 Urine pH 6.5 (5.0-9.0) 03/20/23 04:35 Ur Specific [place] 1.015 (1.005-1.025) 03/20/23 04:35 Urine Protein 300 (3+) mg/dL (Neg-Trace) H 03/20/23 04:35 Urine Glucose (UA) >=1000 mg/dL (Negative) H 03/20/23 04:35 Urine Ketones Trace mg/dL (Negative) 03/20/23 04:35 Urine Blood Trace (Negative) H 03/20/23 04:35 Urine Nitrite Negative (Negative) 03/20/23 04:35 Ur Leukocyte Esterase Negative (Negative) 03/20/23 04:35 Urine RBC 0-2 /HPF (0-2) 03/20/23 04:35 Urine WBC 0-5 /HPF (0-5) 03/20/23 04:35 Ur Squamous Epith Cells 0-2 /HPF (0-2) 03/20/23 04:35 Urine Bacteria None Seen (None Seen) 03/20/23 04:35 Hyaline Casts 0-2 /LPF (0-2) 03/20/23 04:35 COVID-19 (LESLY) Negative (Negative) 03/20/23 02:17 COVID-19 Clin Com See Note 03/20/23 02:17 Influenza Type A (MAGO) Negative (Negative) 03/20/23 02:17 Influenza Type B (MAGO) Negative (Negative) 03/20/23 02:17 Influenza A & B Note See Note 03/20/23 02:17 Impressions Chest X-Ray 03/19/23 22:17 IMPRESSION: Hypoexpanded with basilar markings more likely due to atelectasis. Abdomen/Pelvis CT 03/20/23 00:24 IMPRESSION: Irregular liver contour suggests hepatocellular disease/cirrhosis. Retained stool throughout the colon. The appendix is not confidently seen as a separate structure. Distended urinary bladder. T12 and L2 compression fractures with spinal canal narrowing. Fleischner guidelines were followed. Head CT 03/20/23 05:32 IMPRESSION: Cerebral volume loss and mild to moderate bilateral periventricular and central white matter diminished attenuation which is nonspecific but likely to represent microvascular disease. 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 There is no acute intracranial abnormality. Discharge Plan Discharge Anticipated Discharge Date/Time: 03/23/23 12:56 Patient Disposition: er [facility] Discharge Diagnosis: DKA uncontrolled DM2 uncontrolled hypertension Referrals: [facility] [Outside] - 1 Week Lo Donato MD [Primary Care Provider] - 1 Week Discharge Medications: New insulin glargine [Lantus U-100 Insulin] 100 unit/mL Solution 20 unit subcut DAILY Qty: 10 0RF amlodipine 10 mg Tablet 10 mg PO DAILY Qty: 30 0RF Protocol: Hold for SBP< HOLD for SBP < : 90 insulin lispro [Humalog U-100 Insulin] 100 unit/mL solution 6 unit subcut TID Qty: 10 0RF Continued (DME) blood sugar diagnostic Strip See Rx Instructions .ROUTE .MEDSUPPLY Qty: 150 11RF Rx Instructions: As directed four times a day (DME) FreeStyle Fatmata 2 Sensor Kit See Rx Instructions .ROUTE .MEDSUPPLY Qty: 2 5RF Rx Instructions: As directed every 2 weeks ursodiol 500 mg tablet 500 mg PO BID 90 Days Qty: 180 3RF acetaminophen 500 mg tablet 500 mg PO Q6H PRN (Reason: mild pain) multivitamin with folic acid [Daily-Katie (with folic acid)] 400 mcg tablet 1 tab PO QAM quetiapine 25 mg tablet 25 mg PO Q12H PRN (Reason: anxiety) trazodone 100 mg tablet 100 mg PO BEDTIME pantoprazole 40 mg tablet,delayed release (DR/EC) 40 mg PO DAILY Linzess 145 mcg capsule 145 mcg PO DAILY PRN (Reason: GI UPSET) (DME) FreeStyle Fatmata 2 [place] Misc See Rx Instructions .ROUTE .MEDSUPPLY Qty: 1 0RF Rx Instructions: As directed aspirin [Adult Aspirin Regimen] 81 mg tablet,delayed release (DR/EC) 81 mg PO DAILY Hold Instructions: Resume on 04/11/21. metoprolol tartrate 25 mg tablet 12.5 mg PO DAILY cholecalciferol (vitamin D3) 50 mcg (2,000 unit) capsule 2,000 unit PO DAILY All Day Allergy (cetirizine) 10 mg capsule 10 mg PO DAILY PRN (Reason: Allergic Symptoms) Discontinued insulin lispro 100 unit/mL insulin pen 12 unit subcut TID insulin glargine [Lantus Solostar U-100 Insulin] 100 unit/mL (3 mL) insulin pen 44 unit subcut BEDTIME Discharge Orders: Discharge Order (Routine); Ordered 03/24/23 Ordered By: Kevin Forde Diet: Diabetic diet Activity on Discharge: As tolerated Stand Alone Forms: Patient Portal Discharge page Care Plan Goals: avoid complications of diabetes and hypertension Health Concerns: DKA uncontrolled DM2 uncontrolled hypertension Plan of Treatment: take Lantus 20 units every night. If morning blood glucose is greater than 140, increase by 2 units every night until morning blood glucose is less than 140. take Humalog 6 units with meals. This may need to be adjusted. continue lisinopril and add amlodipine Please follow up with your primary care doctor within 1 week. Return to the hospital if you experience recurrent or worsening symptoms. Assessment: See Discharge Summary. Discharge Date/Time: 03/24/23 12:00
--- NOTE | 2023-03-23 15:36 | MHC.CM.PN ---
Pt will be going to STR, accepted at [facility] and they are going for auth. Dtr is HCP, she said her mother has been to STR several times, one that she could remember was [facility] they did not have a bed. CM will follow and assist with DC plan.
[2023-03-23 16:15] LABS: Glucose, Whole Blood 105 mg/dL (60-115)
[2023-03-23] MEDS: Simethicone 80 MG TAB.CHEW PO (16:22)
[2023-03-23 19:34] LABS: Glucose, Whole Blood 210 mg/dL (60-115)
[2023-03-23] MEDS: traZODone HCL 100 MG TABLET PO (20:40)
[2023-03-23 23:48] LABS: Glucose, Whole Blood 106 mg/dL (60-115)
[2023-03-24 04:00] VITALS: BP 133/60; PULSE 77; RESP 18; TEMP 36.9; O2SAT 97
[2023-03-24 04:06] LABS: Glucose, Whole Blood 81 mg/dL (60-115)
[2023-03-24] MEDS: QUEtiapine Fumarate 25 MG TABLET PO (04:16)
[2023-03-24 06:00] VITALS: BMI 35.6
[2023-03-24] MEDS: Omeprazole 20 MG CAPSULE.DR PO (06:06)
[2023-03-24 07:21] VITALS: BP 132/63; PULSE 78; RESP 20; TEMP 36.1; O2SAT 98
[2023-03-24 08:34] LABS: Glucose, Whole Blood 115 mg/dL (60-115)
[2023-03-24] MEDS: Aspirin Enteric Coated 81 MG TABLET.DR PO (08:55)
[2023-03-24] MEDS: Acetaminophen 325 MG TABLET 650 MG PO (08:55)
[2023-03-24] MEDS: Simethicone 80 MG TAB.CHEW PO (08:55)
[2023-03-24] MEDS: amLODIPine Besylate 10 MG TABLET PO (08:55)
[2023-03-24] MEDS: Cholecalciferol (Vitamin D3) 25 MCG TABLET 50 MCG PO (08:55)
[2023-03-24] MEDS: Multivitamin TABLET 1 TAB PO (08:55)
[2023-03-24] MEDS: Metoprolol Tartrate 12.5 MG HALFTAB PO (08:55)
--- NOTE | 2023-03-24 09:12 | PM.DS ---
DS: Providers Provider Date of Service: 03/24/23 Date of admission: 03/20/23 13:15 Primary care physician: Lo Donato MD DS: Diagnosis Discharge Diagnosis (1) DKA (diabetic ketoacidosis): Status: Acute (2) Uncontrolled type 2 diabetes mellitus with hypoglycemia: Status: Acute (3) Uncontrolled hypertension: Status: Acute (4) Acute worsening of stage 3 chronic kidney disease: Status: Acute DS: Summary Hospital Course Hospital Course: from admission H+P, 03/20/23, by textile knitter Neo Elder MD: 72-year-old lady with underlying diabetes mellitus, CKD, hypertension autoimmune hepatitis/cholangitis, CVA admitted on 03/20/2023 with 45 day history of nausea and vomiting. On ER evaluation patient with hyperglycemia and elevated beta hydroxybutyrate, initially with no significant gap acidosis, patient monitored in the emergency room and treated with intermittent insulin and fluids, however her laboratory studies worsened and transition to anion gap acidosis. She was started on insulin drip and admitted to intensive care unit. 72yo F with DM2, CKD3, HTN, autoimmune cholangitis who was sent in from GI clinic with 1 wk of N/V and admitted to ICU for DKA managed with insulin drip. She was stepped down to [facility] 03/21/23. She was transitioned to basal-bolus insulin. Labs notable for A1c 6.7 increasing o 12.2 over last 3 mo. She was on 40 units of Lantus qhs plus 12 units of Humalog tid, but here was controlled and even with 20 units of Lantus qhs plus correction-dose Humalog, raising question of noncompliance at home, which the patient denied. For uncontrolled hypertension, we added amlodipine to lisinopril. She had some degree of SAM on presentation but this resolved and her renal function returned to baseline [which is CKD stage 3]. She was discharged to a SNF for short-term rehabilition. Time Attestation Discharge coordination time: Greater than 30 minutes Quality: Safe Use of Opioids Does Pt have an Active Cancer Diagnosis on the Problem List?: No Quality: Stroke Does the patient have a stroke diagnosis?: No Physical Exam Vital Signs: Vital Signs: Last Vital Signs Temp 97.0 F 03/24/23 07:21 Pulse 78 03/24/23 07:21 Resp 20 03/24/23 07:21 BP 132/63 03/24/23 07:21 Pulse Ox 98 03/24/23 07:21 O2 Del Method Room Air 03/24/23 07:21 BMI result Body Mass Index 35.6 Gen: in no acute distress HEENT: sclera anicteric, moist mucus membranes Neck: supple Lungs: clear to auscultation bilaterally Heart: regular rate and rhythm, no murmurs Abd: soft, non-tender, non-distended Ext: no edema Skin: warm/well-perfused Neuro: alert and oriented x3, no focal findings Psych: appropriate affect DS: Data Data Completed and Pending Completed studies during hospitalization [Text1]: Procedures Control Bleeding in Gastrointestinal Tract, Via Natural or Artificial Opening Endoscopic (04/05/21) Destruction of Stomach, Pylorus, Via Natural or Artificial Opening Endoscopic (12/29/22) Drainage of Esophagus, Via Natural or Artificial Opening Endoscopic, Diagnostic (12/29/22) Excision of Large Intestine, Via Natural or Artificial Opening Endoscopic, Diagnostic (04/05/21) Excision of Stomach, Pylorus, Via Natural or Artificial Opening Endoscopic, Diagnostic (12/29/22) Transfusion of Nonautologous Red Blood Cells into Peripheral Vein, Percutaneous Approach (12/29/22) Labs on day of discharge: Laboratory Results - last 24 hr 03/23/23 03/23/23 03/23/23 12:02 15:33 19:30 POC Glucose 88 105 210 H 03/23/23 03/24/23 03/24/23 23:45 04:01 08:28 POC Glucose 106 81 115 Discharge Plan Discharge Anticipated Discharge Date/Time: 03/23/23 12:56 Patient Disposition: Xfer SNF Discharge Diagnosis: DKA uncontrolled DM2 uncontrolled hypertension Referrals: Lo Donato MD [Primary Care Provider] - 1 Week Discharge Medications: New insulin glargine [Lantus U-100 Insulin] 100 unit/mL Solution 20 unit subcut DAILY Qty: 10 0RF amlodipine 10 mg Tablet 10 mg PO DAILY Qty: 30 0RF Protocol: Hold for SBP< HOLD for SBP < : 90 insulin lispro [Humalog U-100 Insulin] 100 unit/mL solution 6 unit subcut TID Qty: 10 0RF Continued (DME) blood sugar diagnostic Strip See Rx Instructions .ROUTE .MEDSUPPLY Qty: 150 11RF Rx Instructions: As directed four times a day (DME) FreeStyle Fatmata 2 Sensor Kit See Rx Instructions .ROUTE .MEDSUPPLY Qty: 2 5RF Rx Instructions: As directed every 2 weeks ursodiol 500 mg tablet 500 mg PO BID 90 Days Qty: 180 3RF acetaminophen 500 mg tablet 500 mg PO Q6H PRN (Reason: mild pain) multivitamin with folic acid [Daily-Katie (with folic acid)] 400 mcg tablet 1 tab PO QAM quetiapine 25 mg tablet 25 mg PO Q12H PRN (Reason: anxiety) trazodone 100 mg tablet 100 mg PO BEDTIME pantoprazole 40 mg tablet,delayed release (DR/EC) 40 mg PO DAILY Linzess 145 mcg capsule 145 mcg PO DAILY PRN (Reason: GI UPSET) (DME) FreeStyle Fatmata 2 [place] Misc See Rx Instructions .ROUTE .MEDSUPPLY Qty: 1 0RF Rx Instructions: As directed aspirin [Adult Aspirin Regimen] 81 mg tablet,delayed release (DR/EC) 81 mg PO DAILY Hold Instructions: hold for one week from EGD on 12/31 - resume 01/07 metoprolol tartrate 25 mg tablet 12.5 mg PO DAILY cholecalciferol (vitamin D3) 50 mcg (2,000 unit) capsule 2,000 unit PO DAILY All Day Allergy (cetirizine) 10 mg capsule 10 mg PO DAILY PRN (Reason: Allergic Symptoms) Discontinued insulin lispro 100 unit/mL insulin pen 12 unit subcut TID insulin glargine [Lantus Solostar U-100 Insulin] 100 unit/mL (3 mL) insulin pen 44 unit subcut BEDTIME Discharge Orders: Discharge Order (Routine); Ordered 03/24/23 Ordered By: Kevin Forde Diet: Diabetic diet Activity on Discharge: As tolerated Stand Alone Forms: Patient Portal Discharge page Care Plan Goals: avoid complications of diabetes and hypertension Health Concerns: DKA uncontrolled DM2 uncontrolled hypertension Plan of Treatment: take Lantus 20 units every night. If morning blood glucose is greater than 140, increase by 2 units every night until morning blood glucose is less than 140. take Humalog 6 units with meals. This may need to be adjusted. continue lisinopril and add amlodipine Please follow up with your primary care doctor within 1 week. Return to the hospital if you experience recurrent or worsening symptoms. Assessment: See Discharge Summary.
--- NOTE | 2023-03-24 09:12 | MHC.CM.PN ---
Pt has been medically cleared for DC, she is being brought to [facility] today via ambulance for STR.
[2023-03-24 11:33] VITALS: BP 136/55; PULSE 62; RESP 20; TEMP 36.5; O2SAT 100
--- NOTE | 2023-03-24 12:31 | PC.NURSE ---
RN to RN report given to [facility] at 12:31
== END 2023-03-24 12:00 | disposition skilled nursing facility (03) | DRG 638 ==
LOC: HO.ED 23:28 → HO.EDOVER 03-20 13:22 → HO.ICU 03-20 13:49 → HO.IMC 03-21 18:22
PROVIDERS: Emergency Medicine; Family Medicine; Physician Assistant; Admitting Provider Internal Medicine Pulmonary Disease; Emergency Provider Emergency Medicine Emergency Medical Services; PCP General Practice; Visit Provider Internal Medicine
DX: E11.10 Type 2 diabetes mellitus with ketoacidosis without coma (principal); I13.0 Hypertensive heart and chronic kidney disease with heart failure and stage 1 through stage 4 chronic kidney disease, or unspecified chronic kidney disease; I50.32 Chronic diastolic (congestive) heart failure; N17.9 Acute kidney failure, unspecified; K83.09 Other cholangitis; E11.649 Type 2 diabetes mellitus with hypoglycemia without coma; E86.0 Dehydration; K75.4 Autoimmune hepatitis; N18.30 Chronic kidney disease, stage 3 unspecified; E11.22 Type 2 diabetes mellitus with diabetic chronic kidney disease; Z20.822 Contact with and (suspected) exposure to COVID-19; Z91.148 Patient's other noncompliance with medication regimen for other reason; Z79.4 Long term (current) use of insulin; Z79.82 Long term (current) use of aspirin; Z79.899 Other long term (current) drug therapy
CPT/HCPCS: 36415; 36600; 70450; 71045; 74176; 80048; 80053; 81001; 82010; 82040; 82803; 82947; 83036; 83735; 84100; 84484; 85025; 87502; 87635; 93005; 97162; 99212; 99285; J0737; J1200; J1644; J1920; J2060; J2405; J7120

== ENCOUNTER → 2023-03-20 13:15 | Outpatient (BNV) | payer OTHER, MEDICAID, SELFPAY | PROVIDERS: Admitting Provider Internal Medicine Pulmonary Disease; Emergency Provider Emergency Medicine Emergency Medical Services; PCP General Practice; Visit Provider Family Medicine | DX: E11.10 Type 2 diabetes mellitus with ketoacidosis without coma (principal); E11.649 Type 2 diabetes mellitus with hypoglycemia without coma; I12.9 Hypertensive chronic kidney disease with stage 1 through stage 4 chronic kidney disease, or unspecified chronic kidney disease; N18.30 Chronic kidney disease, stage 3 unspecified | CPT/HCPCS: 99232; 99239; 99499 ==

== ENCOUNTER → 2023-03-20 13:15 | Outpatient (BNV) | payer OTHER, MEDICAID, SELFPAY | PROVIDERS: Admitting Provider Internal Medicine Pulmonary Disease; Emergency Provider Emergency Medicine Emergency Medical Services; PCP General Practice; Visit Provider Internal Medicine Pulmonary Disease | DX: E11.10 Type 2 diabetes mellitus with ketoacidosis without coma (principal); I50.9 Heart failure, unspecified; N17.9 Acute kidney failure, unspecified; N18.30 Chronic kidney disease, stage 3 unspecified | CPT/HCPCS: 99222; 99232 ==

== ENCOUNTER 2023-06-10 16:06 | Inpatient (IN) | payer OTHER, SELFPAY ==
--- NOTE | ~2023-06-10 | XR_ITS ---
EXAMINATION: XR CHEST CLINICAL INFORMATION: Cough. COMPARISON: 03/19/2023. TECHNIQUE: Frontal view of the chest was obtained. FINDINGS: The lung volumes are low. The cardiomediastinal silhouette is stable. There is pulmonary vascular congestion. There is no focal lung consolidation or pleural effusion. The bony structures and soft tissues are unremarkable. XR/XR chest 1V IMPRESSION: Low lung volumes. Pulmonary vascular congestion. No focal lung consolidation.
[2023-06-10 16:34] VITALS: BP 129/52; BP 136/58; PULSE 62; RESP 18; TEMP 36.9; O2SAT 100; O2SAT 98; BMI 26.7
--- NOTE | 2023-06-10 16:49 | ED.GENADULT ---
HPI - General Adult General Chief complaint: Recheck/Abnormal Lab/Rx Stated complaint: ABNORMAL LABS COMING FROM SNF Time Seen by Provider: 06/10/23 16:36 Source: patient Mode of arrival: ambulatory Limitations: no limitations History of Present Illness HPI narrative: 72-year-old female history of CKD, diabetes, and high cholesterol presents to the ED for abnormal labs. Patient was sent to the ED for hemoglobin hematocrit below 6. Patient asymptomatic. Patient denies any chest pain, shortness of breath, weakness, dizziness lab, lightheadedness, rectal bleeding, vomitting blood, or coughing up blood. Related Data Home Medications Medication Instructions Recorded Confirmed aspirin 81 mg tablet,delayed 81 mg PO DAILY 02/27/20 06/10/23 release (Adult Aspirin Regimen) cholecalciferol (vitamin D3) 50 2,000 unit PO DAILY 02/27/20 06/10/23 mcg (2,000 unit) capsule metoprolol tartrate 25 mg tablet 12.5 mg PO DAILY 02/27/20 06/10/23 cetirizine 10 mg capsule (All Day 10 mg PO DAILY PRN Allergic 11/16/20 06/10/23 Allergy (cetirizine)) Symptoms linaclotide 145 mcg capsule 145 mcg PO DAILY PRN GI UPSET 12/29/22 06/10/23 (Linzess) pantoprazole 40 mg tablet,delayed 40 mg PO DAILY 12/29/22 06/10/23 release trazodone 100 mg tablet 100 mg PO BEDTIME 12/29/22 06/10/23 acetaminophen 500 mg tablet 500 mg PO Q6H PRN mild pain 03/20/23 06/10/23 multivitamin with folic acid 400 1 tab PO QAM 03/20/23 06/10/23 mcg tablet (Daily-Katie (with folic acid)) fluticasone propionate 50 1 spray intranasal BID 06/10/23 06/10/23 mcg/actuation nasal spray,suspension insulin glargine 100 unit/mL 25 unit subcut DAILY 06/10/23 06/10/23 subcutaneous solution (Lantus U-100 Insulin) insulin lispro 100 unit/mL 0 sliding scale dose subcut QIDACHS 06/10/23 06/10/23 subcutaneous solution (Humalog U-100 Insulin) Previous Rx's Medication Instructions Recorded flash glucose scanning reader #1 ea 11/16/20 (FreeStyle Fatmata 2 [place]) blood sugar diagnostic #150 ea 04/30/21 flash glucose sensor (FreeStyle #2 ea 12/13/21 Fatmata 2 Sensor kit) ursodiol 500 mg tablet 500 mg PO BID 90 days #180 tabs 01/23/23 amlodipine 10 mg tablet 10 mg PO DAILY #30 tabs 03/23/23 Allergies Allergy/AdvReac Type Severity Reaction Status Date / Time No Known Allergies Allergy Verified 06/10/23 16:34 [No Known Allergies*] Review of Systems Review of Systems: anemia Yes all other systems are reviewed and are negative [facility] Past Medical History Medical History (Updated 06/11/23 @ 01:29 by RICK Robles) CHF (congestive heart failure) Renal failure (ARF), acute on chronic Autoimmune hepatitis Autoimmune cholangitis CVA (cerebral vascular accident) Normocytic anemia CKD (chronic kidney disease) Fecal occult blood test positive Anemia Pancreatic cyst GERD (gastroesophageal reflux disease) Iron deficiency anemia Pancreatitis Depression Hypertriglyceridemia Vitamin D deficiency Constipated Type 2 diabetes mellitus with hyperglycemia Type 2 diabetes mellitus with chronic kidney disease Essential hypertension Hyperlipidemia LDL goal <100 Obesity (BMI 30-39.9) Diabetes mellitus with hyperglycemia Surgical History History of esophagogastroduodenoscopy (EGD) Hx of heart bypass surgery History of appendectomy Hx of colonoscopy Hx of cholecystectomy Family History Family History Father No problems noted. 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 Unable to assess alcohol history related to: Unable to respond Alcohol intake: never Patient Tobacco Use Status: Tobacco use Unknown Smoked in Last 30 Days: No Use of substances other than those prescribed or required for medical reasons: No Advance Directives: Yes Advance Directives Information Provided: No Advance Directives on File: No Advance Directives Date on File: 02/06/21 service: No Current occupational status: disabled Physical Exam ED Vital Signs: Vital Signs - 24 hr 06/10/23 16:34 06/10/23 20:26 06/10/23 21:02 Temperature 98.4 F 97.9 F 97.6 F Pulse Rate 62 65 71 Respiratory Rate 18 16 18 Blood Pressure 129/52 L 147/55 H 109/48 L Pulse Oximetry 98 100 Oxygen Delivery Method Room Air Room Air 06/10/23 21:23 06/10/23 21:47 Temperature 98.1 F 98.1 F Pulse Rate 68 66 Respiratory Rate 18 16 Blood Pressure 157/61 H 159/57 H Pulse Oximetry 98 Oxygen Delivery Method Room Air BMI result Body Mass Index 26.7 Const General: cooperative, healthy appearing, comfortable, no acute distress, well developed, alert, awake and Physically active Orientation/consciousness: oriented to person, oriented to place, oriented to time and patient oriented x3 HENMT Other: Oral mucosa normal Head: Yes normal to inspection, Yes No palpable skull fracture present, Yes normocephalic and Yes atraumatic Eyes General: appearance normal, both eyes and all related structures Neck Neck: Yes normal visual inspection, Yes full ROM, Yes no lymphadenopathy, Yes no meningeal signs, Yes trachea midline, Yes supple, No anterior neck swelling and No tender Chest Chest palpation & inspection: normal inspection of the chest and normal palpation of entire chest wall Breast/axilla palpation: normal palpation of the breasts Resp Effort & Inspection: normal respiratory effort and able to speak in complete sentences Auscultation: clear to auscultation bilaterally Cardio Jugular venous distension: no JVD Heart sounds: S1 normal heart sound present and S2 normal heart sound present GI Other: Rectal exam negative for black stool, melena, or bright red blood Inspection: Yes normal to inspection Palpation (GI): not firm, nontender, no guarding and not rigid General: Yes no CVA tenderness Back/Spine/Pelvis Back: no CVA tenderness and No back tenderness Skin General skin exam: no rashes or lesions noted, elasticity normal and turgor normal Neuro General: oriented to person, oriented to place, oriented to time, patient oriented x3, gait normal, tone normal, moves all extremities, Normal light touch and pain sensation, no meningeal signs, no focal motor deficits, CN's II-XI intact bilaterally and normal sensation to monofilament Extrem General: Yes normal to inspection and Yes full ROM Psych Appearance: grossly normal, well kempt and not disheveled Course Reevaluation(s) Reevaluation #1: Medications Administered Discontinued Medications Generic Name Dose Route Start Last Admin Trade Name Param PRN Reason Stop Dose Admin Sodium Chloride 1,000 mls @ 999 mls/hr 06/10/23 17:21 06/10/23 19:33 Ns IV 06/10/23 18:21 999 mls/hr .Q1H1M STA Administration Sodium Chloride 100 mls @ 100 mls/hr 06/10/23 19:47 06/10/23 21:01 Ns IV 06/10/23 20:46 100 mls/hr ONCE ONE Administration Lorazepam 0.5 mg 06/10/23 22:03 06/10/23 23:54 Lorazepam 0.5 Mg Tablet PO 06/10/23 22:04 0.5 mg ONCE STA Administration Pantoprazole Sodium 80 mg 06/10/23 22:03 06/11/23 00:55 Pantoprazole Sodium 40 Mg/10 Ml Vial IVPUSH 06/10/23 22:04 80 mg ONCE STA Administration Medical Decision Making Medical Decision Making MDM Narrative: 72-year-old female with pmh of CKD, DM, and high cholesterol with anemia without any symptoms. Patient will have labs drawn. Type and screen ordered. 1:27am: Patient admitted for anemia. Case discussed with hospitalist Dr. Vazquez. Patient made NPO after midnight. occult swab negative. Patient receiving blood. 2 units of blood ordered Differential Diagnosis Differential Diagnoses: The differential diagnosis associated with the presentation includes (GI bleed, anemia, varus) Admission/Observation Consideration of admission/observation: Escalation of care including admission/observation considered Consult Healthcare Provider Management of the patient was discussed with: Hospitalist (Dr. George Mcnally) Lab Data [facility] Lab Attestation statement: I reviewed the patient's lab results. 06/10/23 19:15 06/10/23 19:15 Labs: Lab Results 06/10/23 Range/Units 19:15 WBC 9.4 (4.8-10.8) X10*3/uL RBC 2.80 L D (4.20-5.50) X10*6/uL Hgb 6.7 L* D (12.0-16.0) g/dl Hct 21.8 L D (37.0-47.0) % MCV 77.9 L (80.0-98.0) fL MCH 23.9 L (27.0-33.0) pg MCHC 30.7 L (31.0-35.0) g/dl RDW 17.5 H (11.0-16.0) % Plt Count 359 (160-400) X10*3/uL MPV 9.8 (9.4-12.3) fL Immature Gran % (Auto) 0.4 (0.0-0.4) % Neut % (Auto) 64.5 (45-73) % Lymph % (Auto) 24.3 (20-40) % Kimball % (Auto) 8.3 (2-11) % Eos % (Auto) 2.1 (0-4) % Baso % (Auto) 0.4 (0-2) % Lymph # (Auto) 2.3 (1.2-4.9) X10*3/uL [place]ball # (Auto) 0.8 (0.1-1.2) X10*3/uL Eos # (Auto) 0.2 (0.0-0.4) X10*3/uL Baso # (Auto) 0.0 (0.0-0.2) X10*3/uL Abs Immat Gran (auto) 0.04 H (0.00-0.03) X10*3/uL Absolute Neuts (auto) 6.1 (2.0-8.3) x10*3/uL Absolute Nucleated RBC 0.000 (0.0-0.012) X10*3/uL Nucleated RBC % (auto) 0.0 (0.0-0.2) /100WBC PT 11.4 (11.1-13.3) SEC INR 0.9 (0.9-1.1) APTT 36.5 (26.0-36.8) SEC Sodium 134 L (135-145) mmol/L Potassium 4.9 (3.3-5.1) mmol/L Chloride 103 (96-108) mmol/L Carbon Dioxide 27 (22-29) mmol/L Anion Gap 9 L (12-20) BUN 30 H (9-16) mg/dL Creatinine 1.87 H (0.5-1.4) mg/dL Estim Creat Clear Calc 21.4 Estimated GFR 26 Random Glucose 290 H (60-115) mg/dL Calcium 9.0 D (8.4-10.2) mg/dL Total Bilirubin 0.2 (0.0-1.0) mg/dL AST 17 (5-31) U/L ALT 11 (0-31) U/L Alkaline Phosphatase 183 H (39-117) U/L Total Protein 7.1 (6.5-8.0) g/dL Albumin 3.1 L (3.5-5.0) g/dL Stool Occult Blood NEGATIVE (NEGATIVE) Blood Type A Positive Antibody Screen NEGATIVE Crossmatch See Detail External Record Review External record reviewed: Other (prior visits) Critical Care Time Critical Care Time Critical Care Time: Yes Total Critical Care Time: 60 Attestation: Anemia. Rule out GI bleed. Blood ordered Discharge Plan Discharge Clinical Impression: Anemia Patient Disposition: Admitted As Inpatient
[2023-06-10 19:24] LABS: MANUAL DIFF FLAG NO
[2023-06-10 19:26] LABS: OBS Int Ctl Valid YES; OBS1 NEGATIVE (NEGATIVE)
[2023-06-10 19:27] LABS: Basophils Percent Auto 0.4 % (0-2); Eosinophils Absolute Auto 0.2 X10*3/uL (0.0-0.4); Eosinophils Percent Auto 2.1 % (0-4); Hematocrit 21.8 % (37.0-47.0); Imm Gran Abs Auto 0.04 X10*3/uL (0.00-0.03); Imm Gran Pct Auto 0.4 % (0.0-0.4); Lymphocytes Absolute Auto 2.3 X10*3/uL (1.2-4.9); Lymphocytes Percent Auto 24.3 % (20-40); Mean Corpuscular HGB Conc 30.7 g/dl (31.0-35.0); Mean Corpuscular Hemoglobin 23.9 pg (27.0-33.0); Mean Corpuscular Volume 77.9 fL (80.0-98.0); Mean Platelet Volume 9.8 fL (9.4-12.3); Monocytes Absolute Auto 0.8 X10*3/uL (0.1-1.2); Monocytes Percent Auto 8.3 % (2-11); Neutrophils Absolute Auto 6.1 x10*3/uL (2.0-8.3); Neutrophils Percent Auto 64.5 % (45-73); Platelet Count 359 X10*3/uL (160-400); Red Cell Distribution Width 17.5 % (11.0-16.0); White Blood Count 9.4 X10*3/uL (4.8-10.8)
[2023-06-10 19:32] LABS: Hemoglobin 6.7 g/dl (12.0-16.0)
[2023-06-10] MEDS: 0.9 % Sodium Chloride 1,000 ML 999 ML IV (19:33)
[2023-06-10 19:43] LABS: Alanine Aminotransferase 11 U/L (0-31); Albumin Level 3.1 g/dL (3.5-5.0); Alkaline Phosphatase 183 U/L (39-117); Anion Gap 9 (12-20); Aspartate Amino Transferase 17 U/L (5-31); Bilirubin Total 0.2 mg/dL (0.0-1.0); Blood Urea Nitrogen 30 mg/dL (9-16); Carbon Dioxide 27 mmol/L (22-29); Chloride 103 mmol/L (96-108); Creatinine Clr Calc Pharmacy 21.4; Estimated Glomerular Filt Rate 26; Glucose Random 290 mg/dL (60-115); Potassium 4.9 mmol/L (3.3-5.1); Sodium 134 mmol/L (135-145); Total Protein 7.1 g/dL (6.5-8.0)
[2023-06-10 19:56] LABS: INTERNATIONAL NORM RATIO 0.9 (0.9-1.1); Prothrombin Time 11.4 SEC (11.1-13.3)
[2023-06-10 19:58] LABS: Partial Thromboplastin Time 36.5 SEC (26.0-36.8)
[2023-06-10 20:26] VITALS: BP 147/55; PULSE 65; RESP 16; TEMP 36.6; O2SAT 100
[2023-06-10 21:02] VITALS: BP 109/48; PULSE 71; RESP 18; TEMP 36.4
[2023-06-10 21:23] VITALS: BP 157/61; PULSE 68; RESP 18; TEMP 36.7
[2023-06-10 21:47] VITALS: BP 159/57; PULSE 66; RESP 16; TEMP 36.7; O2SAT 98
--- NOTE | 2023-06-10 21:56 | PHA.MEDREC ---
Pharmacy Consult ? Medication Reconciliation Pharmacy has completed the medication reconciliation. Patient came from [facility] with med list. Cindy Cabrera, MaldonadoD
[2023-06-10 23:45] VITALS: BP 163/58; RESP 18; TEMP 36.8
[2023-06-10] MEDS: LORazepam 0.5 MG TABLET PO (23:54)
[2023-06-11] VITALS (13 sets, daily range): BP systolic 100–167; BP diastolic 45–84; PULSE 62–77; RESP 16–20; TEMP 36.1–36.8; O2SAT 96–100
[2023-06-11] MEDS: Pantoprazole Sodium 40 MG/10 ML VIAL 80 MG IVPUSH (00:55)
--- NOTE | 2023-06-11 01:01 | P.HPHOSP_ITS ---
History of Present Illness Date of Service: 06/10/23 Attending physician on admission: Roxann Christensen Chief Complaint: My hemoglobon is low Hannah Grey is a 72 years old woman with past medical history significant for portal hypertensive gastropathy, autoimmune hepatitis/cholangitis, GERD, type 2 diabetes mellitus on insulin, CKD stage 3, ORAL, CVA March 2023 and hypertension was sent to the emergency department after she was found to have low hemoglobin level as an outpatient. At the time of the interview and examination the patient was very upset as she was getting multiple needle sticks. She seems to be very anxious and is limited my evaluation. However, the patient was able to state that she does not have any symptoms, that she feels fine. She denied abdominal pain, nausea, vomiting, dizziness or generalized weakness. She also denies shortness of breath or chest pain. She takes aspirin daily. In the ED, she was found to have stable vital signs. There is no tachycardia and her last blood pressure is 141/53. Blood workup is remarkable for hemoglobin of 6.7 and a low MCV. BUN is elevated (prior was normal). Creatinine is slightly elevated from baseline. Chart review: EGD in 2020 showed portal hypertensive gastropathy. ED tx: PRBCs transfusion (2) ongoing, NS 1 L bolus. Review of Systems 2 Review of Systems: Limited as the patient was quite upset and anxious. [facility] Medical History (Updated 06/11/23 @ 01:30 by Roxann Christensen MD) CHF (congestive heart failure) Renal failure (ARF), acute on chronic Autoimmune hepatitis Autoimmune cholangitis CVA (cerebral vascular accident) Normocytic anemia CKD (chronic kidney disease) Fecal occult blood test positive Anemia Pancreatic cyst GERD (gastroesophageal reflux disease) Iron deficiency anemia Pancreatitis Depression Hypertriglyceridemia Vitamin D deficiency Constipated Type 2 diabetes mellitus with hyperglycemia Type 2 diabetes mellitus with chronic kidney disease Essential hypertension Hyperlipidemia LDL goal <100 Obesity (BMI 30-39.9) Diabetes mellitus with hyperglycemia Family History Father No problems noted. 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 Unable to assess alcohol history related to: Unable to respond Alcohol intake: never Patient Tobacco Use Status: Tobacco use Unknown Smoked in Last 30 Days: No Use of substances other than those prescribed or required for medical reasons: No Advance Directives: Yes Advance Directives Information Provided: No Advance Directives on File: No Advance Directives Date on File: 02/06/21 service: No Current occupational status: disabled Meds Allergies Allergy/AdvReac Type Severity Reaction Status Date / Time No Known Allergies Allergy Verified 06/10/23 16:34 [No Known Allergies*] Active Medications: Current Medications Acetaminophen (Acetaminophen 325 Mg Tablet) 650 mg PO Q6H PRN PRN Reason: Pain, Mild (Pain Scale 1-3) Amlodipine Besylate (Amlodipine Besylate 10 Mg Tablet) 10 mg PO DAILY YOVANA; Protocol Dextrose (Dextrose 50 % 25 Gm/50 Ml Syringe) 25 gm IVPUSH Q15M PRN; Protocol PRN Reason: per Hypoglycemia Standing Ord. Glucose (Glucose Gel 15 Gm Gel..Gram.) 15 gm PO Q15M PRN; Protocol PRN Reason: per Hypoglycemia Standing Ord. Insulin Human Lispro (Insulin Lispro 100 Unit/Ml 3 Ml Vial) 0 unit SUBCUT Q6H YOVANA; Protocol Metoprolol Tartrate (Metoprolol Tartrate 12.5 Mg Halftab) 12.5 mg PO DAILY YOVANA; Protocol Pantoprazole Sodium (Pantoprazole Sodium 40 Mg/10 Ml Vial) 40 mg IVPUSH Q12H [facility] Sodium Chloride (0.9 % Sodium Chloride Flush 3 Ml Syringe) 3 ml IVFLUSH QSHIFT [facility] Trazodone HCl (Trazodone Hcl 100 Mg Tablet) 100 mg PO BEDTIME PRN PRN Reason: insomnia Home Medications Medication Instructions Recorded Confirmed Last Taken Type aspirin 81 mg tablet,delayed 81 mg PO DAILY 02/27/20 06/10/23 03/19/23 History release (Adult Aspirin Regimen) cholecalciferol (vitamin D3) 50 2,000 unit PO DAILY 02/27/20 06/10/23 03/19/23 History mcg (2,000 unit) capsule metoprolol tartrate 25 mg tablet 12.5 mg PO DAILY 02/27/20 06/10/23 03/19/23 History cetirizine 10 mg capsule (All Day 10 mg PO DAILY PRN Allergic 11/16/20 06/10/23 04/05/21 History Allergy (cetirizine)) Symptoms linaclotide 145 mcg capsule 145 mcg PO DAILY PRN GI UPSET 12/29/22 06/10/23 Unknown History (Linzess) pantoprazole 40 mg tablet,delayed 40 mg PO DAILY 12/29/22 06/10/23 03/19/23 History release trazodone 100 mg tablet 100 mg PO BEDTIME 12/29/22 06/10/23 03/19/23 History acetaminophen 500 mg tablet 500 mg PO Q6H PRN mild pain 03/20/23 06/10/23 Unknown History multivitamin with folic acid 400 1 tab PO QAM 03/20/23 06/10/23 03/19/23 History mcg tablet (Daily-Katie (with folic acid)) fluticasone propionate 50 1 spray intranasal BID 06/10/23 06/10/23 Unknown History mcg/actuation nasal spray,suspension insulin glargine 100 unit/mL 25 unit subcut DAILY 06/10/23 06/10/23 Unknown History subcutaneous solution (Lantus U-100 Insulin) insulin lispro 100 unit/mL 0 sliding scale dose subcut QIDACHS 06/10/23 06/10/23 Unknown History subcutaneous solution (Humalog U-100 Insulin) Physical Exam 2 Vital Signs and Narrative: Vital Signs: Last Vital Signs Temp 97.5 F 06/11/23 00:09 Pulse 77 06/11/23 00:09 Resp 18 06/11/23 00:09 BP 141/53 H 06/11/23 00:09 Pulse Ox 97 06/11/23 00:09 O2 Del Method Room Air 06/11/23 00:09 BMI result Body Mass Index 26.7 Constitutional - Awake and Alert. Very anxious and upset. Eyes - PERRLA, EOMI Cardiovascular - S1S2, RRR, No edema Respiratory - Normal lung expansion, Normal respiratory effort, No respiratory distress, CTA bilaterally Gastrointestinal - NT / ND; +BS; No rebound or guarding Extremities - No calf tenderness bilaterally, no swelling Musculoskeletal - Normal inspection, normal ROM Skin - Warm/Dry. Pale. Neurological - Alert & oriented x3. No focal weakness grossly noted. Normal speech. Psychological - Anxious affect. Results Labs 06/10/23 19:15 06/10/23 19:15 Labs: Laboratory Results - last 24 hr 06/10/23 19:15 MCV 77.9 L MCH 23.9 L MCHC 30.7 L RDW 17.5 H Plt Count 359 MPV 9.8 Immature Gran % (Auto) 0.4 Neut % (Auto) 64.5 Lymph % (Auto) 24.3 [place] % (Auto) 8.3 Eos % (Auto) 2.1 Baso % (Auto) 0.4 Lymph # (Auto) 2.3 [place] # (Auto) 0.8 Eos # (Auto) 0.2 Baso # (Auto) 0.0 Abs Immat Gran (auto) 0.04 H Absolute Neuts (auto) 6.1 Absolute Nucleated RBC 0.000 Nucleated RBC % (auto) 0.0 PT 11.4 INR 0.9 APTT 36.5 Anion Gap 9 L Estim Creat Clear Calc 21.4 Estimated GFR 26 Random Glucose 290 H Calcium 9.0 D Total Bilirubin 0.2 AST 17 ALT 11 Alkaline Phosphatase 183 H Total Protein 7.1 Albumin 3.1 L Stool Occult Blood NEGATIVE Blood Type A Positive Antibody Screen NEGATIVE Crossmatch See Detail Assessment and Plan (1) Anemia: Qualifiers: Anemia type: iron deficiency Iron deficiency anemia type: unspecified iron deficiency Qualified Code(s): D50.9 - Iron deficiency anemia, unspecified Status: Acute (2) Type 2 diabetes mellitus with chronic kidney disease: Qualifiers: 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: with regional 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 driver use Chronic kidney disease stage: stage 3 (moderate) Chronic kidney disease stage 3 subtype: unspecified whether 3a or 3b Qualified Code(s): E11.22 - Type 2 diabetes mellitus with diabetic chronic kidney disease; N18.30 - Chronic kidney disease, stage 3 unspecified; 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 Admit to hospitalist service. Telemetry. Keep NPO. Continue to monitor H&H and PRBC transfusion as needed. Start treatment with pantoprazole 80 mg IV now then 40 mg IV twice daily. GI consult. Hold aspirin. * Type 2 diabetes mellitus. Blood glucose monitoring every 6 hours while NPO. Blood glucose control with insulin sliding scale. * Essential hypertension. Continue amlodipine and metoprolol when able. * Chronic kidney disease, stage 3. Stable. Continue to monitor renal function. Avoid nephrotoxic agents. * Anxiety. Lorazepam X1 ordered. * Depression. Continue trazodone when able. DVT prophylaxis: SCDs only. Code status: Full. Patient will need admission for at least 2 midnights for anemia treatment and evaluation. She would need H&H close monitoring, PRBCs transfusion and evaluation by specialist for possible endoscopies. Quality Stroke Does the patient have a stroke diagnosis?: No VTE Prior VTE?: No VTE Risk Level:: Medical - moderate - high VTE Device Contraindication: N/A - Device Ordered VTE Drug Contraindication: Treatment Not Indicated
[2023-06-11] MEDS: 0.9 % Sodium Chloride Flush 3 ML SYRINGE IVFLUSH ×3 (03:50→22:17)
[2023-06-11 06:39] LABS: Glucose, Whole Blood 251 mg/dL (60-115)
[2023-06-11] MEDS: Insulin Lispro 100 UNIT/ML 3 ML VIAL SUBCUT (06:45)
--- NOTE | 2023-06-11 06:48 | PC.NURSE ---
Late entry: Assumed care of pt at 1915.ultrasound guided IV plaed in PTs left arm. first unit verified and infused for 1 hour. Pt moving around causing line to infiltrate from movement of catheter. blood paused and two attempts made to place additional line via ultrasound guide IV. During this time PT very upset, yelling and attempting to hit this RN. Second line successfully placed by RN, Ravin. RBC continued at that time and infused completely. Second unit of RBC verified and began but at 80mls left line became occluded again due to Pt movement. RBS transfusion paused PT continuing to be combative, yelling and attempting to hit this RN. Informed hospitalist who instructed RN to give PT a break and have additional attempt at reestablishing line after 7am. In addition, PT refused morning labs with phlebotomy. aware. Plan of care ongoing.
--- NOTE | 2023-06-11 07:42 | P.CNGI_ITS ---
History of Present Illness Data of Consult Service Date: 06/11/23 Requesting physician: Roxann Christensen Primary Care Provider: Unknown Physician HPI Reason for consult: anemia, hx of GAVE 72 year old [place]-speaking female with portal hypertensive gastropathy, autoimmune hepatitis/cholangitis, GERD, type 2 diabetes mellitus on insulin, CKD stage 3, ORAL, CVA March 2023 and hypertension seen at [facility] ED on 06/10/23 after outpatient labs revealed a low hemoglobin. Pt is known to me from FU in the GI clinic. Patient denied abdominal pain, nausea, vomiting, dizziness or generalized weakness. She also denied shortness of breath or chest pain. She takes aspirin daily. In the ED, pt had stable vital signs without tachycardia. Labs revealed hemoglobin of 6.7 and a low MCV. BUN was elevated (prior was normal). Creatinine is slightly elevated from baseline. ED tx: 2 Units of PRBCs was transfused, NS 1 L bolus. FU CBC is pending PAST GI HISTORY BY REVIEW OF MEDICAL RECORDS: Last seen in the GI clinic in 03/2023: 72 year old [place]-speaking female with HTN, Vitamin D def, DM, Constipation, Anemia followed in GI for left-sided abdominal pain and elevated LFTs in a cholestatic pattern, decreased appetite and weight loss. Hepatitis A, B and C serologies were negative. MRI/MRCP showed post cholecystectomy status without biliary obstruction or dilation. Lab evaluation showed elevated IgG, positive CHRISTOPHER in a titer of 1 in 160 in cytoplasmic reticular pattern common in PBC, systemic sclerosis and rare in other systemic autoimmune rheumatic disease. Mitochondrial antibody was negative.? IgG 4 levels were normal.? ASMA was elevated Of note none of the medicines she is taking at present is associated with cholestatic liver disease. She was taking ibuprofen and acetaminophen in the past which she has discontinued. Other possibilities include infiltrative liver disease like sarcoidosis, granulomatous disease, amyloidosis. Metastatic cancer is less likely given negative imaging studies. Since pt's LFTs continue to worsen, she will need a liver biopsy for further evaluation. Left upper quadrant pain appears to be related to chronic constipation and has improved since patient started taking senna. Patient had an EGD and Colon on 10/03 and 10/05/19 at [facility]. EGD was normal. Two <10 mm adenomatous polyps were removed during colonoscopy No source was detected for iron deficiency anemia. Pt was scheduled for a Liver bx by the GI RN multiple times and was a no show - and Pt was discharged from the GI clinic Pt had a liver bx done at [facility] and diagnosed with autoimmune cholangitis - she was started on Ursodiol on 06/19/22 FU LFts showed improvement in Alk P 03/19/23 Pt seen with generalized abdominal pain, nausea and vomiting for the past week Complains of constipation and diarrhea Pt reports she was seen at [facility] ER on 03/15/23 - had a CT scan and unsure what other tests were performed - records were requested Pt transferred to [facility] ED via wheel chair by Jennifer (GI MA) for further evaluation and management 12/2022 PATIENT HAD AN EGD FOR EVALUATION OF ACUTE ON CHRONIC ANEMIA: ESOPHAGUS: A single non-bleeding, Grade 1 varix from 25 to 30 cms - flattened completely on air insufflation and not amenable to band ligation. STOMACH: Mild GAVE in the antrum - treated with APC. An 8-10 mm benign appearing nodule/polyp in the antrum - biopsied. BIOPSIES SHOWED: A. Stomach, antrum, biopsy of nodule: Reactive gastropathy and chronic inactive gastritis with foveolar hyperplasia; no evidence of H. pylori, intestinal metaplasia, or dysplasia. B. Stomach, antrum, biopsy: Chronic inactive gastritis; no evidence of H. pylori, intestinal metaplasia, or dysplasia 04/2021 COLONOSCOPY WAS PERFORMED BY DR. RUBIO FOR EVALUATION OF ANEMIA: IMPRESSION: 1. Colon polyp, status post hot snare polypectomy and placement of 2 resolution clips. 2. Diverticulosis. 3. Internal hemorrhoids. 4. Somewhat edematous appearing colon consistent with the underlying portal hypertension. PLAN: The results of the pathology will be checked. Given the minimal findings and her age, I do not think she will need any further screening colonoscopies. She could go back on her Brilinta for the underlying coronary artery disease in the next 24 to 48 hours. Her blood count will need to be followed. I would start her on iron replacement. ?11/28/19 CAPSULE ENDOSCOPY AT [facility] SHOWED ? GEJ with mild esophagitis, stomach with patchy erythema and granular tissue with few erosions, appearance consistent with chronic gastritis.? Duodenum entered at 20 minutes 8 seconds, nonbleeding AVM noted.? Cecum reached at 03:00 hours 21 minutes.? No active bleeding seen during the studies. Review of Systems 2 Review of Systems: Yes all other systems are reviewed and are negative PMFSH Past Medical History Medical History (Updated 06/15/23 @ 14:49 by Juan Oneal MD) Iron deficiency anemia Autoimmune cholangitis CHF (congestive heart failure) Renal failure (ARF), acute on chronic Autoimmune hepatitis CVA (cerebral vascular accident) Normocytic anemia CKD (chronic kidney disease) Fecal occult blood test positive Anemia Pancreatic cyst GERD (gastroesophageal reflux disease) Pancreatitis Depression Hypertriglyceridemia Vitamin D deficiency Constipated Type 2 diabetes mellitus with hyperglycemia Type 2 diabetes mellitus with chronic kidney disease Essential hypertension Hyperlipidemia LDL goal <100 Obesity (BMI 30-39.9) Diabetes mellitus with hyperglycemia Family History Family History Father No problems noted. 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 Unable to assess alcohol history related to: Unable to respond Alcohol intake: never Patient Tobacco Use Status: Never used Tobacco Advance Directives Date on File: 02/06/21 service: No Current occupational status: disabled Meds Allergies Allergy/AdvReac Type Severity Reaction Status Date / Time No Known Allergies Allergy Verified 06/10/23 16:34 [No Known Allergies*] Active Medications: Current Medications Acetaminophen (Acetaminophen 325 Mg Tablet) 650 mg PO Q6H PRN PRN Reason: Pain, Mild (Pain Scale 1-3) Amlodipine Besylate (Amlodipine Besylate 10 Mg Tablet) 10 mg PO DAILY [facility]; Protocol Dextrose (Dextrose 50 % 25 Gm/50 Ml Syringe) 25 gm IVPUSH Q15M PRN; Protocol PRN Reason: per Hypoglycemia Standing Ord. Glucose (Glucose Gel 15 Gm Gel..Gram.) 15 gm PO Q15M PRN; Protocol PRN Reason: per Hypoglycemia Standing Ord. Insulin Human Lispro (Insulin Lispro 100 Unit/Ml 3 Ml Vial) 0 unit SUBCUT Q6H [facility]; Protocol Last Admin: 06/11/23 06:45 Dose: 6 unit Metoprolol Tartrate (Metoprolol Tartrate 12.5 Mg Halftab) 12.5 mg PO DAILY [facility]; Protocol Pantoprazole Sodium (Pantoprazole Sodium 40 Mg/10 Ml Vial) 40 mg IVPUSH Q12H [facility] Sodium Chloride (0.9 % Sodium Chloride Flush 3 Ml Syringe) 3 ml IVFLUSH QSHIFT [facility] Last Admin: 06/11/23 03:50 Dose: 3 ml Trazodone HCl (Trazodone Hcl 100 Mg Tablet) 100 mg PO BEDTIME PRN PRN Reason: insomnia Home Medications Medication Instructions Recorded Confirmed Last Taken Type aspirin 81 mg tablet,delayed 81 mg PO DAILY 02/27/20 06/10/23 03/19/23 History release (Adult Aspirin Regimen) cholecalciferol (vitamin D3) 50 2,000 unit PO DAILY 02/27/20 06/10/23 03/19/23 History mcg (2,000 unit) capsule metoprolol tartrate 25 mg tablet 12.5 mg PO DAILY 02/27/20 06/10/23 03/19/23 History cetirizine 10 mg capsule (All Day 10 mg PO DAILY PRN Allergic 11/16/20 06/10/23 04/05/21 History Allergy (cetirizine)) Symptoms linaclotide 145 mcg capsule 145 mcg PO DAILY PRN GI UPSET 12/29/22 06/10/23 Unknown History (Linzess) pantoprazole 40 mg tablet,delayed 40 mg PO DAILY 12/29/22 06/10/23 03/19/23 History release trazodone 100 mg tablet 100 mg PO BEDTIME 12/29/22 06/10/23 03/19/23 History acetaminophen 500 mg tablet 500 mg PO Q6H PRN mild pain 03/20/23 06/10/23 Unknown History multivitamin with folic acid 400 1 tab PO QAM 03/20/23 06/10/23 03/19/23 History mcg tablet (Daily-Katie (with folic acid)) fluticasone propionate 50 1 spray intranasal BID 06/10/23 06/10/23 Unknown History mcg/actuation nasal spray,suspension insulin glargine 100 unit/mL 25 unit subcut DAILY 06/10/23 06/10/23 Unknown History subcutaneous solution (Lantus U-100 Insulin) insulin lispro 100 unit/mL 0 sliding scale dose subcut QIDACHS 06/10/23 06/10/23 Unknown History subcutaneous solution (Humalog U-100 Insulin) Physical Exam 2 Vital Signs: Vital Signs: Last Vital Signs Temp 98.0 F 06/11/23 07:14 Pulse 69 06/11/23 07:14 Resp 18 06/11/23 07:14 BP 154/66 H 06/11/23 07:14 Pulse Ox 96 06/11/23 06:25 O2 Del Method Room Air 06/11/23 06:25 BMI result Body Mass Index 26.7 Const: General: healthy appearing and no acute distress Nutritional Appearance: average body habitus Orientation/consciousness: patient oriented x3 Limitations: no limitations HEENT: Head: Yes normal to inspection Ears: hearing grossly normal bilaterally Mouth: Normal oral and palatal mucosa present Eyes: Sclerae: sclerae normal Pupils: Equal, round and reactive pupils present Neck: Neck: Yes normal visual inspection Chest: Chest palpation & inspection: normal inspection of the chest Resp: Effort & Inspection: normal respiratory effort Auscultation: clear to auscultation bilaterally Cardio: Palpation: normal PMI Rate: regular rate Rhythm: regular rhythm Heart sounds: S1 normal heart sound present, S2 normal heart sound present and no murmurs GI: Palpation (GI): Soft to palpation, nontender and No hepatosplenomegaly present Auscultation: normal bowel sounds Rectal Exam - Female: deferred Skin: General skin exam: no rashes or lesions noted Neuro: General: patient oriented x3, gait normal and moves all extremities Cranial nerves: Yes Equal, round and reactive pupils present Psych: Appearance: grossly normal Mental Status: mental status grossly normal Results Labs 06/15/23 12:20 06/15/23 12:20 Labs: Short CBC 06/10/23 Range/Units 19:15 WBC 9.4 (4.8-10.8) X10*3/uL Hgb 6.7 L* D (12.0-16.0) g/dl Hct 21.8 L D (37.0-47.0) % Plt Count 359 (160-400) X10*3/uL BMP 06/10/23 19:15 Sodium 134 L Potassium 4.9 Chloride 103 Carbon Dioxide 27 BUN 30 H Creatinine 1.87 H Calcium 9.0 D Liver Function 06/10/23 Range/Units 19:15 Total Bilirubin 0.2 (0.0-1.0) mg/dL AST 17 (5-31) U/L ALT 11 (0-31) U/L Alkaline Phosphatase 183 H (39-117) U/L Albumin 3.1 L (3.5-5.0) g/dL Assessment and Plan (1) Anemia: Qualifiers: Anemia type: iron deficiency Iron deficiency anemia type: unspecified iron deficiency Qualified Code(s): D50.9 - Iron deficiency anemia, unspecified Status: Acute (2) Autoimmune cholangitis: Status: Acute (3) Elevated LFTs: Status: Acute (4) Chronic constipation: Status: Acute Plan 72 year old [place]-speaking female with portal hypertensive gastropathy, autoimmune hepatitis/cholangitis, GERD, type 2 diabetes mellitus on insulin, CKD stage 3, ORAL, CVA March 2023 and hypertension seen at [facility] ED on 06/10/23 after outpatient labs revealed a low hemoglobin. Pt is known to me from FU in the GI clinic for autoimmune cholangitis. Labs revealed hemoglobin of 6.7 and a low MCV. BUN was elevated (prior was normal). Creatinine is slightly elevated from baseline. Acute on chronic anemia likely related to GAVE, PUD, erosive esophagitis or UGI AVMs or Dieulafoy's. ED tx: 2 Units of PRBCs was transfused, NS 1 L bolus. FU CBC is pending RECOMMENDATIONS: 1. Agree with IV PPI 2. Pt is scheduled for an EGD today at 2:30 pm. Procedures Date of Service Date of Service: 06/15/23
[2023-06-11 08:29] LABS: Glucose, Whole Blood 208 mg/dL (60-115)
[2023-06-11] MEDS: Pantoprazole Sodium 40 MG/10 ML VIAL IVPUSH ×2 (08:33→22:17)
[2023-06-11] MEDS: Metoprolol Tartrate 12.5 MG HALFTAB PO (08:33)
[2023-06-11] MEDS: amLODIPine Besylate 10 MG TABLET PO (08:33)
--- NOTE | 2023-06-11 08:34 | MHC.CM.PN ---
Patient is documented to be anxious and upset; CM spoke with Daughter/HCP/Sara @ [phone] and addressed IMM with her (original will be mailed certified letter to Sara and a copy will be placed on the chart). Patient lives alone in an apartment and she uses a walker to assist with mobility. Patient is active with [facility] and home/resume said services is the goal. CM has initiated and will follow for dc planning. PCP is Dr. Lo Donato.
[2023-06-11 08:35] LABS: Hematocrit 28.2 % (37.0-47.0); Hemoglobin 9.1 g/dl (12.0-16.0); Mean Corpuscular HGB Conc 32.3 g/dl (31.0-35.0); Mean Corpuscular Hemoglobin 25.7 pg (27.0-33.0); Mean Corpuscular Volume 79.7 fL (80.0-98.0); Mean Platelet Volume 9.8 fL (9.4-12.3); Platelet Count 349 X10*3/uL (160-400); Red Blood Count 3.54 X10*6/uL (4.20-5.50); Red Cell Distribution Width 18.1 % (11.0-16.0); White Blood Count 10.2 X10*3/uL (4.8-10.8)
--- NOTE | 2023-06-11 08:42 | MHC.CM.PN ---
Daughter/HCP's correct # is [phone].
--- NOTE | 2023-06-11 08:45 | MHC.EDTECH ---
Pt. was incontinent of urine. washed up pt, bharathi rodriguez given. Purewick put in place.
[2023-06-11 08:48] LABS: Anion Gap 12 (12-20); Blood Urea Nitrogen 28 mg/dL (9-16); Calcium 9.5 mg/dL (8.4-10.2); Carbon Dioxide 23 mmol/L (22-29); Chloride 106 mmol/L (96-108); Creatinine Clr Calc Pharmacy 25.5; Estimated Glomerular Filt Rate 32; Glucose Random 215 mg/dL (60-115); Potassium 4.5 mmol/L (3.3-5.1); Sodium 136 mmol/L (135-145)
[2023-06-11 11:50] LABS: Glucose, Whole Blood 187 mg/dL (60-115)
--- NOTE | 2023-06-11 13:12 | MHC.SHP ---
Pre-Procedural Eval Section A - 24 Hr Update-Section A only Date of Service: 06/11/23 The patient is an INPATIENT: Yes The patient has been examined within 24 hours of the surgical procedure. The History & Physical has been completed within 30 days and I have reviewed it.: Yes Section B - Complete if H&P > 30 days Chief Complaint: Symptomatic Anemia Allergies: Allergies Allergy/AdvReac Type Severity Reaction Status Date / Time No Known Allergies Allergy Verified 06/10/23 16:34 [No Known Allergies*] Plan I have reviewed the history and physical and performed a pertinent physical examination on my patient. No changes have occurred unless specified. Seen by Dr Shepard earlier, EGD for anemia assessment. Time Spent With Patient Time: Total time managing care of this patient today ____ minutes.
--- NOTE | 2023-06-11 13:27 | P.CONAN_ITS ---
HPI - Anesthesia Eval Consult details Narrative: Anemia PMFSH Active Problems Active Problems: All Active Problems (Updated 06/11/23 @ 07:43 by Malik Shepard MD) Autoimmune cholangitis (Acute) Anemia (Acute) Acute worsening of stage 3 chronic kidney disease (Acute) Uncontrolled hypertension (Acute) Uncontrolled type 2 diabetes mellitus with hypoglycemia (Acute) Elevated troponin (Acute) Lumbago (Acute) Elevated serum creatinine (Acute) Low blood pressure (Acute) LUQ abdominal pain (Acute) Chronic constipation (Acute) Elevated LFTs (Acute) Type 2 diabetes mellitus with chronic kidney disease (Acute) Essential hypertension (Acute) Hyperlipidemia LDL goal <100 (Acute) Obesity (BMI 30-39.9) (Acute) Diabetes mellitus with hyperglycemia (Acute) Past Medical History Medical History Autoimmune cholangitis CHF (congestive heart failure) Renal failure (ARF), acute on chronic Autoimmune hepatitis CVA (cerebral vascular accident) Normocytic anemia CKD (chronic kidney disease) Fecal occult blood test positive Anemia Pancreatic cyst GERD (gastroesophageal reflux disease) Iron deficiency anemia Pancreatitis Depression Hypertriglyceridemia Vitamin D deficiency Constipated Type 2 diabetes mellitus with hyperglycemia Type 2 diabetes mellitus with chronic kidney disease Essential hypertension Hyperlipidemia LDL goal <100 Obesity (BMI 30-39.9) Diabetes mellitus with hyperglycemia Family History Family History Father No problems noted. 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 Unable to assess alcohol history related to: Unable to respond Alcohol intake: never Patient Tobacco Use Status: Never used Tobacco Advance Directives Date on File: 02/06/21 service: No Current occupational status: disabled Meds Allergies Allergy/AdvReac Type Severity Reaction Status Date / Time No Known Allergies Allergy Verified 06/10/23 16:34 [No Known Allergies*] Active Medications: Current Medications Acetaminophen (Acetaminophen 325 Mg Tablet) 650 mg PO Q6H PRN PRN Reason: Pain, Mild (Pain Scale 1-3) Amlodipine Besylate (Amlodipine Besylate 10 Mg Tablet) 10 mg PO DAILY [facility]; Protocol Last Admin: 06/11/23 08:33 Dose: 10 mg Dextrose (Dextrose 50 % 25 Gm/50 Ml Syringe) 25 gm IVPUSH Q15M PRN; Protocol PRN Reason: per Hypoglycemia Standing Ord. Glucose (Glucose Gel 15 Gm Gel..Gram.) 15 gm PO Q15M PRN; Protocol PRN Reason: per Hypoglycemia Standing Ord. Insulin Human Lispro (Insulin Lispro 100 Unit/Ml 3 Ml Vial) 0 unit SUBCUT Q6H [facility]; Protocol Last Admin: 06/11/23 11:50 Dose: Not Given Metoprolol Tartrate (Metoprolol Tartrate 12.5 Mg Halftab) 12.5 mg PO DAILY [facility]; Protocol Last Admin: 06/11/23 08:33 Dose: 12.5 mg Pantoprazole Sodium (Pantoprazole Sodium 40 Mg/10 Ml Vial) 40 mg IVPUSH Q12H [facility] Last Admin: 06/11/23 08:33 Dose: 40 mg Sodium Chloride (0.9 % Sodium Chloride Flush 3 Ml Syringe) 3 ml IVFLUSH QSHIFT [facility] Last Admin: 06/11/23 08:33 Dose: 3 ml Trazodone HCl (Trazodone Hcl 100 Mg Tablet) 100 mg PO BEDTIME PRN PRN Reason: insomnia Home Medications Medication Instructions Recorded Confirmed Last Taken Type aspirin 81 mg tablet,delayed 81 mg PO DAILY 02/27/20 06/10/23 03/19/23 History release (Adult Aspirin Regimen) cholecalciferol (vitamin D3) 50 2,000 unit PO DAILY 02/27/20 06/10/23 03/19/23 History mcg (2,000 unit) capsule metoprolol tartrate 25 mg tablet 12.5 mg PO DAILY 02/27/20 06/10/23 03/19/23 History cetirizine 10 mg capsule (All Day 10 mg PO DAILY PRN Allergic 11/16/20 06/10/23 04/05/21 History Allergy (cetirizine)) Symptoms linaclotide 145 mcg capsule 145 mcg PO DAILY PRN GI UPSET 12/29/22 06/10/23 Unknown History (Denisse) pantoprazole 40 mg tablet,delayed 40 mg PO DAILY 12/29/22 06/10/23 03/19/23 History release trazodone 100 mg tablet 100 mg PO BEDTIME 12/29/22 06/10/23 03/19/23 History acetaminophen 500 mg tablet 500 mg PO Q6H PRN mild pain 03/20/23 06/10/23 Unknown History multivitamin with folic acid 400 1 tab PO QAM 03/20/23 06/10/23 03/19/23 History mcg tablet (Daily-Katie (with folic acid)) fluticasone propionate 50 1 spray intranasal BID 06/10/23 06/10/23 Unknown History mcg/actuation nasal spray,suspension insulin glargine 100 unit/mL 25 unit subcut DAILY 06/10/23 06/10/23 Unknown History subcutaneous solution (Lantus U-100 Insulin) insulin lispro 100 unit/mL 0 sliding scale dose subcut QIDACHS 06/10/23 06/10/23 Unknown History subcutaneous solution (Humalog U-100 Insulin) Exam Height,Weight and Vital Signs: Height 4 ft 11 in Weight 60 kg Last Vital Signs Temp 98 F 06/11/23 13:17 Pulse 68 06/11/23 13:17 Resp 20 06/11/23 13:17 BP 157/73 H 06/11/23 13:17 Pulse Ox 97 06/11/23 13:17 O2 Del Method Room Air 06/11/23 13:17 Pertinent Lab Results Pertinent Lab Results: Laboratory Tests 06/10/23 06/11/23 06/11/23 19:15 06:20 08:20 WBC 9.4 RBC 2.80 L D Hgb 6.7 L* D Hct 21.8 L D MCV 77.9 L MCH 23.9 L MCHC 30.7 L RDW 17.5 H Plt Count 359 MPV 9.8 Immature Gran % (Auto) 0.4 Neut % (Auto) 64.5 Lymph % (Auto) 24.3 [place] % (Auto) 8.3 Eos % (Auto) 2.1 Baso % (Auto) 0.4 Lymph # (Auto) 2.3 [place] # (Auto) 0.8 Eos # (Auto) 0.2 Baso # (Auto) 0.0 Abs Immat Gran (auto) 0.04 H Absolute Neuts (auto) 6.1 Absolute Nucleated RBC 0.000 Nucleated RBC % (auto) 0.0 PT 11.4 INR 0.9 APTT 36.5 Sodium 134 L Potassium 4.9 Chloride 103 Carbon Dioxide 27 Anion Gap 9 L BUN 30 H Creatinine 1.87 H Estim Creat Clear Calc 21.4 Estimated GFR 26 POC Glucose 251 H 208 H Random Glucose 290 H Calcium 9.0 D Total Bilirubin 0.2 AST 17 ALT 11 Alkaline Phosphatase 183 H Total Protein 7.1 Albumin 3.1 L Stool Occult Blood NEGATIVE Blood Type A Positive Antibody Screen NEGATIVE Crossmatch See Detail 06/11/23 06/11/23 08:25 11:46 WBC 10.2 RBC 3.54 L D Hgb 9.1 L D Hct 28.2 L D MCV 79.7 L MCH 25.7 L MCHC 32.3 RDW 18.1 H Plt Count 349 MPV 9.8 Immature Gran % (Auto) Neut % (Auto) Lymph % (Auto) [place]arro % (Auto) Eos % (Auto) Baso % (Auto) Lymph # (Auto) [place] # (Auto) Eos # (Auto) Baso # (Auto) Abs Immat Gran (auto) Absolute Neuts (auto) Absolute Nucleated RBC 0.000 Nucleated RBC % (auto) 0.0 PT INR APTT Sodium 136 Potassium 4.5 Chloride 106 Carbon Dioxide 23 Anion Gap 12 BUN 28 H Creatinine 1.57 H Estim Creat Clear Calc 25.5 Estimated GFR 32 POC Glucose 187 H Random Glucose 215 H Calcium 9.5 Total Bilirubin AST ALT Alkaline Phosphatase Total Protein Albumin Stool Occult Blood Blood Type Antibody Screen Crossmatch Airway Mallampati Class: II TM Dist: >3cm Neck ROM: Full Denture: Upper and Lower Loose/Missing/Broken Teeth: Yes Heart: [id number] Lungs: cta b/l Assessment and Plan Assessment Anesthesia Assessment: Anesthesia Plan Discussed and Chart Reviewed Final Anesthetic Review Family History of Problems with Anesthesia: No History of Problems with Anesthesia: No NPO: Yes ASA Class: III Final Preanesthetic Review: No Changes in Pt Med Stat, Meds/Allgs Chart Reviewed, Consent Obtained/Reviewed and Anes Risks/Benef Reviewed Patient Risk: Intermediate Procedure Risk: Intermediate Assessment/Block/Sedation in SS: Assess/Block/Sedation- Anesthetic Plan Anesthetic Plan: MAC: and Agree w/ Assess. and Plan Disposition: Standard PACU
[2023-06-11 13:34] LABS: Glucose, Whole Blood 189 mg/dL (60-115)
--- NOTE | 2023-06-11 13:53 | W.PM.OPN ---
Operative Note Operative Note Date of Service: 06/11/23 Narrative: Procedure Description: EGD Indication: anemia Anesthesia: MAC FLEXIBLE TRANSORAL UPPER GASTROINTESTINAL ENDOSCOPY UPPER ENDOSCOPY Consent: Indications for the procedure and potential complications of bleeding, perforation, reaction to medications and missed diagnosis were discussed with the patient and informed consent was obtained. Instrument: Olympus GIF H 190 J mid size upper endoscope Monitoring: Vital signs and clinical assessment, continuous EKG monitoring, Pulse oximetry, Carbon Dioxide monitoring and blood pressure monitoring were done throughout the procedure. Procedure: The patient was placed in the left lateral decubitis position and pre-procedure medications were administered and a bite block was placed. The endoscope was inserted into the mouth and advanced under direct vision to the third part of duodenum. A careful inspection was made as the upper endoscope was withdrawn including a retroflexed examination of the proximal stomach; Findings and interventions are described below. Findings: Larynx:normal Esophagus: GE junction at 31 cm, diaphragm hiatus at 31 cm, mild esophagitis with small grade I varix which collapsed with air insufflation Stomach: Patchy gastric erythema at the antrum suspected gAVe, treated with APC. Biopsies were obtained to r/o h pylori. Grade 2 flap valve on retroflexed examination of the cardia. Duodenum: Normal bulb and descending duodenum, few AVM noted in second part of duodenum, few were bleeding when the scope passed by and these were treated with APC Intervention: Biopsies as noted above, APC to GAVE and AVM Impression/Findings: AVM small varix esophagitis GAVE PLAN: sucralfate 1 g QID for 1 week low dose PPI, e.g pantoprazole 20 mg daily repeat EGD prn and f/u Dr Shepard
--- NOTE | 2023-06-11 14:59 | PM.EVENT ---
Event Note Date of Service: 06/11/23 Event Note: Chart reviewed patient examined. Agree with H and P as outlined. EGD this afternoon. Follow up in a.m. Time Spent With Patient Time: Total time managing care of this patient today ____ minutes.
[2023-06-11 20:23] LABS: Glucose, Whole Blood 248 mg/dL (60-115)
[2023-06-11] MEDS: guaiFENesin 200 MG/10 ML 10 ML LIQUID PO (23:45)
[2023-06-12] VITALS (9 sets, daily range): BP systolic 130–171; BP diastolic 57–86; PULSE 62–85; RESP 18–20; TEMP 36.2–37.2; O2SAT 94–100
[2023-06-12 00:04] LABS: Glucose, Whole Blood 231 mg/dL (60-115)
[2023-06-12] MEDS: Insulin Lispro 100 UNIT/ML 3 ML VIAL SUBCUT ×4 (00:10→21:24)
--- NOTE | 2023-06-12 01:39 | PC.NURSE ---
In evening 2/8 pt had nonproductive cough; persistent, dry. Assessed pt, heard some fine crackles throughout. MD notifed - CXR ordered. PRN cough medicine ordered and admin PRN with some effectiveness allowing pt to get some sleep overnight
[2023-06-12 07:14] LABS: Glucose, Whole Blood 141 mg/dL (60-115)
[2023-06-12 07:27] LABS: MANUAL DIFF FLAG NO
[2023-06-12 07:32] LABS: Basophils Percent Auto 0.2 % (0-2); Eosinophils Absolute Auto 0.3 X10*3/uL (0.0-0.4); Eosinophils Percent Auto 1.9 % (0-4); Hematocrit 26.9 % (37.0-47.0); Hemoglobin 8.6 g/dl (12.0-16.0); Imm Gran Abs Auto 0.05 X10*3/uL (0.00-0.03); Imm Gran Pct Auto 0.4 % (0.0-0.4); Lymphocytes Absolute Auto 1.8 X10*3/uL (1.2-4.9); Lymphocytes Percent Auto 13.4 % (20-40); Mean Corpuscular Hemoglobin 25.5 pg (27.0-33.0); Mean Corpuscular Volume 79.8 fL (80.0-98.0); Monocytes Percent Auto 7.4 % (2-11); Neutrophils Absolute Auto 10.3 x10*3/uL (2.0-8.3); Neutrophils Percent Auto 76.7 % (45-73); Platelet Count 326 X10*3/uL (160-400); Red Blood Count 3.37 X10*6/uL (4.20-5.50); Red Cell Distribution Width 17.9 % (11.0-16.0); White Blood Count 13.5 X10*3/uL (4.8-10.8)
[2023-06-12 07:48] LABS: Alanine Aminotransferase 9 U/L (0-31); Albumin Level 2.8 g/dL (3.5-5.0); Alkaline Phosphatase 168 U/L (39-117); Anion Gap 13 (12-20); Aspartate Amino Transferase 16 U/L (5-31); Bilirubin Total 0.4 mg/dL (0.0-1.0); Blood Urea Nitrogen 24 mg/dL (9-16); Calcium 8.8 mg/dL (8.4-10.2); Carbon Dioxide 24 mmol/L (22-29); Chloride 104 mmol/L (96-108); Creatinine Clr Calc Pharmacy 31.3; Estimated Glomerular Filt Rate 41; Glucose Fasting 141 mg/dL (60-99); Potassium 4.4 mmol/L (3.3-5.1); Sodium 137 mmol/L (135-145); Total Protein 6.5 g/dL (6.5-8.0)
[2023-06-12] MEDS: amLODIPine Besylate 10 MG TABLET PO (08:23)
[2023-06-12] MEDS: 0.9 % Sodium Chloride Flush 3 ML SYRINGE IVFLUSH (08:23)
[2023-06-12] MEDS: Sucralfate 1 GM TABLET PO ×2 (08:23→16:40)
[2023-06-12] MEDS: Metoprolol Tartrate 12.5 MG HALFTAB PO (08:23)
[2023-06-12] MEDS: Pantoprazole Sodium 40 MG/10 ML VIAL IVPUSH ×2 (08:23→21:24)
[2023-06-12 11:11] LABS: Glucose, Whole Blood 323 mg/dL (60-115)
[2023-06-12] MEDS: Furosemide 20 MG/2 ML VIAL IVPUSH (13:22)
--- NOTE | 2023-06-12 13:55 | PM.DS ---
DS: Providers Provider Date of Service: 06/12/23 Date of admission: 06/10/23 22:00 Date of discharge: 06/12/23 Primary care physician: Lo Donato MD Consults: 06/10/23 22:04 Consult to Gastroenterology Routine Consulting Provider: Efrain Hernandez Reason for consultation: Hx of GAVE presents w/ anemia Has provider been notified: No DS: Diagnosis Discharge Diagnosis (1) Anemia: Status: Inactive (2) Autoimmune cholangitis: Status: Inactive (3) Elevated LFTs: Status: Resolved (4) Chronic constipation: Status: Inactive DS: Summary Hospital Course Hospital Course: From admission H+P by hospitalist Roxann Vazquez Christensen, 06/11/23: Hannah Grey is a 72 years old woman with past medical history significant for portal hypertensive gastropathy, autoimmune hepatitis/cholangitis, GERD, type 2 diabetes mellitus on insulin, CKD stage 3, ORAL, CVA March 2023 and hypertension was sent to the emergency department after she was found to have low hemoglobin level as an outpatient. At the time of the interview and examination the patient was very upset as she was getting multiple needle sticks. She seems to be very anxious and is limited my evaluation. However, the patient was able to state that she does not have any symptoms, that she feels fine. She denied abdominal pain, nausea, vomiting, dizziness or generalized weakness. She also denies shortness of breath or chest pain. She takes aspirin daily. In the ED, she was found to have stable vital signs. There is no tachycardia and her last blood pressure is 141/53. Blood workup is remarkable for hemoglobin of 6.7 and a low MCV. BUN is elevated (prior was normal). Creatinine is slightly elevated from baseline. Chart review: EGD in 2020 showed portal hypertensive gastropathy. ED tx: PRBCs transfusion (2) ongoing, NS 1 L bolus. 72yo F with portal hypertensive gastropathy, autoimmune hepatitis/cholangitis, GERD, DM2, CKD3, ORAL, hx CVA, and HTN who was sent in for anemia. She was admitted to the telemetry unit and Gastroenterology was consulted. She was transfused 2 units of packed red blood cells with appropriate response in hemoglobin. She was also given IV iron. EGD was done on 06/11/[address] Mary Haines and showed AVM, small varix, esophagitis, and GAVE; APC was done to the AVM and GAVE. She was started on sucralfate and PPI was resumed. Diet was advanced and hemoglobin was stable with no GI bleeding. She will follow up with GI for biopsy results. Creatinine remained around baseline [CKD3]. She was discharged back to [facility] for long-term care. Time Attestation Discharge coordination time: Greater than 30 minutes Quality: Safe Use of Opioids Does Pt have an Active Cancer Diagnosis on the Problem List?: No Quality: Stroke Does the patient have a stroke diagnosis?: No Physical Exam Vital Signs: Vital Signs: Last Vital Signs Temp 97.6 F 06/12/23 11:33 Pulse 76 06/12/23 11:33 Resp 20 06/12/23 11:33 BP 143/63 H 06/12/23 11:33 Pulse Ox 97 06/12/23 11:33 O2 Del Method Room Air 06/12/23 11:33 BMI result Body Mass Index 26.7 Const: Other: Awake awake alert oriented x3 Resp: Other: Clear to auscultation bilaterally no rales rhonchi or wheezes Cardio: Other: No S4; positive S1-S2; no S3 murmurs rubs or gallops GI: Other: Soft nontender nondistended normoactive bowel sounds Extrem: Other: No edema bilaterally DS: Data Data Completed and Pending Completed studies during hospitalization [Text1]: Procedures Control Bleeding in Gastrointestinal Tract, Via Natural or Artificial Opening Endoscopic (04/05/21) Destruction of Stomach, Pylorus, Via Natural or Artificial Opening Endoscopic (12/29/22) Drainage of Esophagus, Via Natural or Artificial Opening Endoscopic, Diagnostic (12/29/22) Excision of Large Intestine, Via Natural or Artificial Opening Endoscopic, Diagnostic (04/05/21) Excision of Stomach, Pylorus, Via Natural or Artificial Opening Endoscopic, Diagnostic (12/29/22) Transfusion of Nonautologous Red Blood Cells into Peripheral Vein, Percutaneous Approach (12/29/22) Pending studies at discharge: Pending at discharge 06/11/23 13:49 Surgical [PTH] Routine Labs on day of discharge: Laboratory Results - last 24 hr 06/11/23 06/11/23 06/12/23 20:20 23:58 07:04 WBC 13.5 H RBC 3.37 L Hgb 8.6 L Hct 26.9 L MCV 79.8 L MCH 25.5 L MCHC 32.0 RDW 17.9 H Plt Count 326 MPV 10.0 Immature Gran % (Auto) 0.4 Neut % (Auto) 76.7 H Lymph % (Auto) 13.4 L [place] % (Auto) 7.4 Eos % (Auto) 1.9 Baso % (Auto) 0.2 Lymph # (Auto) 1.8 [place] # (Auto) 1.0 Eos # (Auto) 0.3 Baso # (Auto) 0.0 Abs Immat Gran (auto) 0.05 H Absolute Neuts (auto) 10.3 H Absolute Nucleated RBC 0.000 Nucleated RBC % (auto) 0.0 Sodium 137 Potassium 4.4 Chloride 104 Carbon Dioxide 24 Anion Gap 13 BUN 24 H Creatinine 1.28 Estim Creat Clear Calc 31.3 Estimated GFR 41 POC Glucose 248 H 231 H Fasting Glucose 141 H Calcium 8.8 D Total Bilirubin 0.4 AST 16 ALT 9 Alkaline Phosphatase 168 H Total Protein 6.5 Albumin 2.8 L 06/12/23 06/12/23 07:08 10:56 WBC RBC Hgb Hct MCV MCH MCHC RDW Plt Count MPV Immature Gran % (Auto) Neut % (Auto) Lymph % (Auto) [place] % (Auto) Eos % (Auto) Baso % (Auto) Lymph # (Auto) [place] # (Auto) Eos # (Auto) Baso # (Auto) Abs Immat Gran (auto) Absolute Neuts (auto) Absolute Nucleated RBC Nucleated RBC % (auto) Sodium Potassium Chloride Carbon Dioxide Anion Gap BUN Creatinine Estim Creat Clear Calc Estimated GFR POC Glucose 141 H 323 H Fasting Glucose Calcium Total Bilirubin AST ALT Alkaline Phosphatase Total Protein Albumin Discharge Plan Discharge Anticipated Discharge Date/Time: 06/12/23 13:40 Patient Disposition: Xfer LTC Discharge Diagnosis: Anemia due to iron deficiency and GI blood loss from GAVE/AVM Referrals: Angela Dahl [place] [Outside] - 1 Week Efrain Hernandez MD [Physician] - 2 Weeks Lo Donato MD [Primary Care Provider] - 1 Week Discharge Medications: New sucralfate 1 gram Tablet 1 g PO BIDAC Qty: 60 0RF ascorbate calcium (vitamin C) 500 mg tablet 500 mg PO DAILY Qty: 30 0RF ferrous sulfate [Feosol] 325 mg (65 mg iron) tablet 325 mg PO DAILY Qty: 30 0RF Continued (DME) blood sugar diagnostic Strip See Rx Instructions .ROUTE .MEDSUPPLY Qty: 150 11RF Rx Instructions: As directed four times a day (DME) FreeStyle Fatmata 2 Sensor Kit See Rx Instructions .ROUTE .MEDSUPPLY Qty: 2 5RF Rx Instructions: As directed every 2 weeks ursodiol 500 mg tablet 500 mg PO BID 90 Days Qty: 180 3RF acetaminophen 500 mg tablet 500 mg PO Q6H PRN (Reason: mild pain) multivitamin with folic acid [Daily-Katie (with folic acid)] 400 mcg tablet 1 tab PO QAM amlodipine 10 mg Tablet 10 mg PO DAILY Qty: 30 0RF Protocol: Hold for SBP< HOLD for SBP < : 90 insulin glargine [Lantus U-100 Insulin] 100 unit/mL solution 25 unit subcut DAILY insulin lispro [Humalog U-100 Insulin] 100 unit/mL solution 0 sliding scale dose subcut QIDACHS Protocol: Insulin Correction Scale Less than or equal to 110 ---- Give (units): 0 111 to 150 Give (units): 0 151 to 200 Give (units): 2 201 to 250 Give (units): 4 251 to 300 Give (units): 6 301 to 350 Give (units): 8 Greater than 350 Give (units): 10 Call MD if Blood Glucose > : 350 fluticasone propionate 50 mcg/actuation [place],Suspension 1 spray INTRANASAL BID Rx Instructions: administer into each nostril trazodone 100 mg tablet 100 mg PO BEDTIME pantoprazole 40 mg tablet,delayed release (DR/EC) 40 mg PO DAILY Linzess 145 mcg capsule 145 mcg PO DAILY PRN (Reason: GI UPSET) (DME) FreeStyle Fatmata 2 [place] Misc See Rx Instructions .ROUTE .MEDSUPPLY Qty: 1 0RF Rx Instructions: As directed aspirin [Adult Aspirin Regimen] 81 mg tablet,delayed release (DR/EC) 81 mg PO DAILY Hold Instructions: Resume on 04/11/21. metoprolol tartrate 25 mg tablet 12.5 mg PO DAILY cholecalciferol (vitamin D3) 50 mcg (2,000 unit) capsule 2,000 unit PO DAILY All Day Allergy (cetirizine) 10 mg capsule 10 mg PO DAILY PRN (Reason: Allergic Symptoms) Discharge Orders: Discharge Order (Routine); Ordered 06/15/23 Ordered By: Juan Oneal Diet: Advance to usual diet Activity on Discharge: As tolerated Stand Alone Forms: Patient Portal Discharge page Care Plan Goals: Recovery from anemia Health Concerns: Anemia due to iron deficiency and GI blood loss from GAVE/AVM Plan of Treatment: take iron with vitamin C and also take sucralfate follow up with Gastroenterology [Dr Hernandez] in 2 weeks for biopsy results Assessment: See discharge summary Discharge Date/Time: 06/15/23 16:01
--- NOTE | 2023-06-12 14:13 | MHC.CM.PN ---
AIDAN spoke with Daughter/Sara @ [phone], who for the first time, indicated that Patient is from [facility] under her Long-Term benefit. Per the Liaison at [facility], Patient's [facility] is no longer active and therefor the Patient has no bed hold and no payer to return.AIDAN has made a referral to [facility] [employer] to assist with the re-instatement of the [facility] and has asked MD to order a PT eval to see if Patient can be authorized by [facility] to return. AIDAN will follow.
--- NOTE | 2023-06-12 14:31 | HO.POSTANES ---
Post Anesthesia Evaluation Post Anesthesia Evaluation Date of Service: 06/12/23 Vital Signs: Vital Signs Temp Pulse Resp BP Pulse Ox O2 Del Method 06/12/23 13:29 96 Room Air 06/12/23 11:33 97.6 F 76 20 143/63 H 97 Room Air 06/12/23 07:45 98.9 F 85 20 149/67 H 96 Room Air 06/12/23 03:20 97.1 F 77 20 156/86 H 98 Room Air Anesthesia: Monitored Mental Status: Awake Pain Control: Satisfactory Nausea/Vomiting: None Hydration: Adequate Anesthesia-Related Issues: No Anes. Related Issues
[2023-06-12 16:29] LABS: Glucose, Whole Blood 199 mg/dL (60-115)
[2023-06-12] MEDS: guaiFENesin 200 MG/10 ML 10 ML LIQUID PO ×2 (17:34→21:24)
[2023-06-12 20:56] LABS: Glucose, Whole Blood 176 mg/dL (60-115)
[2023-06-12] MEDS: bisacodyL 5 MG TABLET.DR PO (21:24)
[2023-06-13] VITALS (7 sets, daily range): BP systolic 136–177; BP diastolic 57–77; PULSE 65–87; RESP 18–20; TEMP 36.6–36.8; O2SAT 93–98
[2023-06-13 06:18] LABS: MANUAL DIFF FLAG NO
[2023-06-13 06:30] LABS: Basophils Percent Auto 0.2 % (0-2); Eosinophils Absolute Auto 0.2 X10*3/uL (0.0-0.4); Eosinophils Percent Auto 2.5 % (0-4); Hematocrit 26.8 % (37.0-47.0); Hemoglobin 8.7 g/dl (12.0-16.0); Imm Gran Abs Auto 0.04 X10*3/uL (0.00-0.03); Imm Gran Pct Auto 0.4 % (0.0-0.4); Lymphocytes Absolute Auto 2.4 X10*3/uL (1.2-4.9); Lymphocytes Percent Auto 24.7 % (20-40); Mean Corpuscular HGB Conc 32.5 g/dl (31.0-35.0); Mean Corpuscular Hemoglobin 26.1 pg (27.0-33.0); Mean Corpuscular Volume 80.5 fL (80.0-98.0); Mean Platelet Volume 9.8 fL (9.4-12.3); Monocytes Absolute Auto 0.9 X10*3/uL (0.1-1.2); Monocytes Percent Auto 9.2 % (2-11); Neutrophils Absolute Auto 6.2 x10*3/uL (2.0-8.3); Platelet Count 308 X10*3/uL (160-400); Red Blood Count 3.33 X10*6/uL (4.20-5.50); Red Cell Distribution Width 18.3 % (11.0-16.0); White Blood Count 9.8 X10*3/uL (4.8-10.8)
[2023-06-13 06:54] LABS: Alanine Aminotransferase 9 U/L (0-31); Albumin Level 2.8 g/dL (3.5-5.0); Alkaline Phosphatase 165 U/L (39-117); Anion Gap 13 (12-20); Aspartate Amino Transferase 14 U/L (5-31); Bilirubin Total 0.4 mg/dL (0.0-1.0); Blood Urea Nitrogen 28 mg/dL (9-16); Carbon Dioxide 24 mmol/L (22-29); Chloride 105 mmol/L (96-108); Creatinine Clr Calc Pharmacy 23.5; Estimated Glomerular Filt Rate 30; Glucose Fasting 193 mg/dL (60-99); Potassium 4.5 mmol/L (3.3-5.1); Sodium 137 mmol/L (135-145); Total Protein 6.4 g/dL (6.5-8.0)
[2023-06-13 07:07] LABS: Glucose, Whole Blood 172 mg/dL (60-115)
[2023-06-13] MEDS: amLODIPine Besylate 10 MG TABLET PO (08:37)
[2023-06-13] MEDS: Metoprolol Tartrate 12.5 MG HALFTAB PO (08:37)
[2023-06-13] MEDS: Sucralfate 1 GM TABLET PO ×2 (08:37→17:02)
[2023-06-13] MEDS: Pantoprazole Sodium 40 MG/10 ML VIAL IVPUSH ×2 (08:37→21:27)
[2023-06-13] MEDS: 0.9 % Sodium Chloride Flush 3 ML SYRINGE IVFLUSH ×2 (08:37→21:28)
[2023-06-13] MEDS: Insulin Lispro 100 UNIT/ML 3 ML VIAL SUBCUT ×3 (08:38→21:27)
[2023-06-13 10:57] LABS: Glucose, Whole Blood 333 mg/dL (60-115)
--- NOTE | 2023-06-13 13:34 | HO.PM.IMPN ---
Subjective Subjective Date of Service: 06/13/23 Interval History: No acute issues overnight. Cough improved Physical Exam Vital Signs: Vital Signs: Last Vital Signs Temp 98.3 F 06/13/23 10:59 Pulse 65 06/13/23 10:59 Resp 20 06/13/23 10:59 BP 154/68 H 06/13/23 10:59 Pulse Ox 95 06/13/23 10:59 O2 Del Method Room Air 06/13/23 10:59 BMI result Body Mass Index 26.7 Const: Other: Awake awake alert oriented x3 Resp: Other: Clear to auscultation bilaterally no rales rhonchi or wheezes Cardio: Other: No S4; positive S1-S2; no S3 murmurs rubs or gallops GI: Other: Soft nontender nondistended normoactive bowel sounds Extrem: Other: No edema bilaterally Objective Data Active Medications Acetaminophen (Acetaminophen 325 Mg Tablet) 650 mg PO Q6H PRN PRN Reason: Pain, Mild (Pain Scale 1-3) Amlodipine Besylate (Amlodipine Besylate 10 Mg Tablet) 10 mg PO DAILY [facility]; Protocol Last Admin: 06/13/23 08:37 Dose: 10 mg Documented By: FAHAD Bisacodyl (Bisacodyl 5 Mg Tablet.Dr) 5 mg PO BEDTIME YOVANA Last Admin: 06/12/23 21:24 Dose: 5 mg Documented By: STACEY Dextrose (Dextrose 50 % 25 Gm/50 Ml Syringe) 25 gm IVPUSH Q15M PRN; Protocol PRN Reason: per Hypoglycemia Standing Ord. Glucose (Glucose Gel 15 Gm Gel..Gram.) 15 gm PO Q15M PRN; Protocol PRN Reason: per Hypoglycemia Standing Ord. Guaifenesin (Guaifenesin 200 Mg/10 Ml 10 Ml Liquid) 10 ml PO Q4H PRN PRN Reason: Cough Last Admin: 06/12/23 21:24 Dose: 10 ml Documented By: STACEY Iron Sucrose 200 mg/ Sodium (Chloride) 110 mls @ 440 mls/hr IV ONCE ONE Stop: 06/13/23 13:47 Insulin Human Lispro (Insulin Lispro 100 Unit/Ml 3 Ml Vial) 0 unit SUBCUT QIDACHS [facility]; Protocol Last Admin: 06/13/23 11:18 Dose: 8 unit Documented By: FAHAD Magnesium Hydroxide (Milk Of Magnesia 30 Ml Oral.Susp) 30 ml PO TID PRN PRN Reason: Constipation Metoprolol Tartrate (Metoprolol Tartrate 12.5 Mg Halftab) 12.5 mg PO DAILY [facility]; Protocol Last Admin: 06/13/23 08:37 Dose: 12.5 mg Documented By: FAHAD Pantoprazole Sodium (Pantoprazole Sodium 40 Mg/10 Ml Vial) 40 mg IVPUSH Q12H [facility] Last Admin: 06/13/23 08:37 Dose: 40 mg Documented By: FAHAD Sodium Chloride (0.9 % Sodium Chloride Flush 3 Ml Syringe) 3 ml IVFLUSH QSHIFT [facility] Last Admin: 06/13/23 08:37 Dose: 3 ml Documented By: FAHAD Sucralfate (Sucralfate 1 Gm Tablet) 1 gm PO BIDAC [facility] Last Admin: 06/13/23 08:37 Dose: 1 gm Documented By: FAHAD Trazodone HCl (Trazodone Hcl 100 Mg Tablet) 100 mg PO BEDTIME PRN PRN Reason: insomnia Labs 06/13/23 06:02 06/13/23 06:02 Labs: Laboratory Results - last 24 hr 06/12/23 06/12/23 06/13/23 16:24 20:50 06:02 MCV 80.5 MCH 26.1 L MCHC 32.5 RDW 18.3 H Plt Count 308 MPV 9.8 Immature Gran % (Auto) 0.4 Neut % (Auto) 63.0 Lymph % (Auto) 24.7 [place] % (Auto) 9.2 Eos % (Auto) 2.5 Baso % (Auto) 0.2 Lymph # (Auto) 2.4 [place] # (Auto) 0.9 Eos # (Auto) 0.2 Baso # (Auto) 0.0 Abs Immat Gran (auto) 0.04 H Absolute Neuts (auto) 6.2 Absolute Nucleated RBC 0.000 Nucleated RBC % (auto) 0.0 Anion Gap 13 Estim Creat Clear Calc 23.5 Estimated GFR 30 POC Glucose 199 H 176 H Fasting Glucose 193 H Calcium 9.0 Total Bilirubin 0.4 AST 14 ALT 9 Alkaline Phosphatase 165 H Total Protein 6.4 L Albumin 2.8 L 02/10/24 02/10/24 07:01 10:51 MCV MCH MCHC RDW Plt Count MPV Immature Gran % (Auto) Neut % (Auto) Lymph % (Auto) [place] % (Auto) Eos % (Auto) Baso % (Auto) Lymph # (Auto) [place] # (Auto) Eos # (Auto) Baso # (Auto) Abs Immat Gran (auto) Absolute Neuts (auto) Absolute Nucleated RBC Nucleated RBC % (auto) Anion Gap Estim Creat Clear Calc Estimated GFR POC Glucose 172 H 333 H Fasting Glucose Calcium Total Bilirubin AST ALT Alkaline Phosphatase Total Protein Albumin Assessment and Plan (1) Anemia: Status: Acute (2) Uncontrolled type 2 diabetes mellitus with hypoglycemia: Status: Acute Plan Hannah Grey is a 72 years old woman with PMHx significant for portal hypertensive gastropathy, autoimmune hepatitis/cholangitis and GERD admitted with: 1. Anemia -EGD consistent with suspected GA ve -continue PPI as ordered -iron infusion today -advance diet as tolerated -follow daily CBC is 2.DMII -Acceptable control on current therapies -lispro correctional scale -adjust as indicated 3.HTN -supplement control on current therapies -adjust as indicated 4. CKD 3 -at baseline -follow renals/divalents SCDs only. Full. Patient will require ongoing hospitalization to observe for any recurrence of GI bleed an iron transfusion Quality Stroke Does the patient have a stroke diagnosis?: No VTE Prior VTE?: No VTE Risk Level:: Medical - moderate - high VTE Device Contraindication: N/A - Device Ordered VTE Drug Contraindication: Treatment Not Indicated
[2023-06-13] MEDS: Iron Sucrose Complex 200 MG in 0.9 % Sodium Chloride 100 ML 440 MG IV (16:23)
[2023-06-13 16:25] LABS: Glucose, Whole Blood 121 mg/dL (60-115)
[2023-06-13] MEDS: guaiFENesin 200 MG/10 ML 10 ML LIQUID PO (21:26)
[2023-06-13] MEDS: Acetaminophen 325 MG TABLET 650 MG PO (21:27)
[2023-06-13 21:50] LABS: Glucose, Whole Blood 316 mg/dL (60-115)
[2023-06-14] VITALS (7 sets, daily range): BP systolic 134–168; BP diastolic 52–73; PULSE 58–76; RESP 18–20; TEMP 36.3–37.2; O2SAT 94–99
[2023-06-14] MEDS: Acetaminophen 325 MG TABLET 650 MG PO (04:37)
[2023-06-14 06:09] LABS: MANUAL DIFF FLAG NO
[2023-06-14 06:28] LABS: Basophils Percent Auto 0.4 % (0-2); Eosinophils Absolute Auto 0.2 X10*3/uL (0.0-0.4); Eosinophils Percent Auto 2.7 % (0-4); Hematocrit 26.2 % (37.0-47.0); Hemoglobin 8.3 g/dl (12.0-16.0); Imm Gran Abs Auto 0.03 X10*3/uL (0.00-0.03); Imm Gran Pct Auto 0.4 % (0.0-0.4); Lymphocytes Absolute Auto 1.3 X10*3/uL (1.2-4.9); Lymphocytes Percent Auto 15.6 % (20-40); Mean Corpuscular HGB Conc 31.7 g/dl (31.0-35.0); Mean Corpuscular Hemoglobin 25.5 pg (27.0-33.0); Mean Corpuscular Volume 80.6 fL (80.0-98.0); Mean Platelet Volume 9.9 fL (9.4-12.3); Monocytes Absolute Auto 0.9 X10*3/uL (0.1-1.2); Monocytes Percent Auto 10.6 % (2-11); Neutrophils Absolute Auto 5.8 x10*3/uL (2.0-8.3); Neutrophils Percent Auto 70.3 % (45-73); Platelet Count 302 X10*3/uL (160-400); Red Blood Count 3.25 X10*6/uL (4.20-5.50); Red Cell Distribution Width 18.1 % (11.0-16.0); White Blood Count 8.2 X10*3/uL (4.8-10.8)
[2023-06-14 06:30] LABS: Alanine Aminotransferase 9 U/L (0-31); Albumin Level 2.8 g/dL (3.5-5.0); Alkaline Phosphatase 169 U/L (39-117); Anion Gap 12 (12-20); Aspartate Amino Transferase 14 U/L (5-31); Bilirubin Total 0.3 mg/dL (0.0-1.0); Blood Urea Nitrogen 32 mg/dL (9-16); Calcium 9.2 mg/dL (8.4-10.2); Carbon Dioxide 24 mmol/L (22-29); Chloride 104 mmol/L (96-108); Estimated Glomerular Filt Rate 33; Glucose Fasting 257 mg/dL (60-99); Potassium 4.4 mmol/L (3.3-5.1); Sodium 136 mmol/L (135-145); Total Protein 6.4 g/dL (6.5-8.0)
[2023-06-14 08:04] LABS: Glucose, Whole Blood 232 mg/dL (60-115)
[2023-06-14] MEDS: Metoprolol Tartrate 12.5 MG HALFTAB PO (08:39)
[2023-06-14] MEDS: amLODIPine Besylate 10 MG TABLET PO (08:40)
[2023-06-14] MEDS: Insulin Lispro 100 UNIT/ML 3 ML VIAL SUBCUT ×4 (08:40→21:20)
[2023-06-14] MEDS: Pantoprazole Sodium 40 MG/10 ML VIAL IVPUSH (08:40)
[2023-06-14] MEDS: Sucralfate 1 GM TABLET PO ×2 (08:40→16:48)
[2023-06-14] MEDS: 0.9 % Sodium Chloride Flush 3 ML SYRINGE IVFLUSH (08:41)
[2023-06-14 11:46] LABS: Glucose, Whole Blood 175 mg/dL (60-115)
[2023-06-14] MEDS: Iron Sucrose Complex 200 MG in 0.9 % Sodium Chloride 100 ML 440 MG IV (13:08)
--- NOTE | 2023-06-14 13:37 | HO.PM.IMPN ---
Subjective Subjective Date of Service: 06/14/23 Interval History: No acute issues overnight. Tolerated iron infusion Review of Systems Denies chest pain Denies shortness of breath Denies nausea vomiting diarrhea Denies fever chills Physical Exam Vital Signs: Vital Signs: Last Vital Signs Temp 97.4 F 06/14/23 11:14 Pulse 58 06/14/23 11:14 Resp 18 06/14/23 11:14 BP 168/73 H 06/14/23 11:14 Pulse Ox 99 06/14/23 13:00 O2 Del Method Room Air 06/14/23 13:00 BMI result Body Mass Index 26.7 Const: Other: Awake awake alert oriented x3 Resp: Other: Clear to auscultation bilaterally no rales rhonchi or wheezes Cardio: Other: No S4; positive S1-S2; no S3 murmurs rubs or gallops GI: Other: Soft nontender nondistended normoactive bowel sounds Extrem: Other: No edema bilaterally Objective Data Active Medications Acetaminophen (Acetaminophen 325 Mg Tablet) 650 mg PO Q6H PRN PRN Reason: Pain, Mild (Pain Scale 1-3) Last Admin: 06/14/23 04:37 Dose: 650 mg Documented By: KEY Amlodipine Besylate (Amlodipine Besylate 10 Mg Tablet) 10 mg PO DAILY [facility]; Protocol Last Admin: 06/14/23 08:40 Dose: 10 mg Documented By: ASHIA Bisacodyl (Bisacodyl 5 Mg Tablet.Dr) 5 mg PO BEDTIME [facility] Last Admin: 06/13/23 21:29 Dose: Not Given Documented By: KEY Non-Admin Reason: Patient Refused Dextrose (Dextrose 50 % 25 Gm/50 Ml Syringe) 25 gm IVPUSH Q15M PRN; Protocol PRN Reason: per Hypoglycemia Standing Ord. Glucose (Glucose Gel 15 Gm Gel..Gram.) 15 gm PO Q15M PRN; Protocol PRN Reason: per Hypoglycemia Standing Ord. Guaifenesin (Guaifenesin 200 Mg/10 Ml 10 Ml Liquid) 10 ml PO Q4H PRN PRN Reason: Cough Last Admin: 06/13/23 21:26 Dose: 10 ml Documented By: KEY Insulin Human Lispro (Insulin Lispro 100 Unit/Ml 3 Ml Vial) 0 unit SUBCUT QIDACHS [facility]; Protocol Last Admin: 06/14/23 12:25 Dose: 2 unit Documented By: ASHIA Magnesium Hydroxide (Milk Of Magnesia 30 Ml Oral.Susp) 30 ml PO TID PRN PRN Reason: Constipation Metoprolol Tartrate (Metoprolol Tartrate 12.5 Mg Halftab) 12.5 mg PO DAILY [facility]; Protocol Last Admin: 06/14/23 08:39 Dose: 12.5 mg Documented By: ASHIA Sodium Chloride (0.9 % Sodium Chloride Flush 3 Ml Syringe) 3 ml IVFLUSH QSHIFT [facility] Last Admin: 06/14/23 08:41 Dose: 3 ml Documented By: ASHIA Sucralfate (Sucralfate 1 Gm Tablet) 1 gm PO BIDAC [facility] Last Admin: 06/14/23 08:40 Dose: 1 gm Documented By: ASHIA Trazodone HCl (Trazodone Hcl 100 Mg Tablet) 100 mg PO BEDTIME PRN PRN Reason: insomnia Labs 06/14/23 05:54 06/14/23 05:54 Labs: Laboratory Results - last 24 hr 06/13/23 06/13/23 06/14/23 15:48 20:31 05:54 MCV 80.6 MCH 25.5 L MCHC 31.7 RDW 18.1 H Plt Count 302 MPV 9.9 Immature Gran % (Auto) 0.4 Neut % (Auto) 70.3 Lymph % (Auto) 15.6 L [place] % (Auto) 10.6 Eos % (Auto) 2.7 Baso % (Auto) 0.4 Lymph # (Auto) 1.3 [place] # (Auto) 0.9 Eos # (Auto) 0.2 Baso # (Auto) 0.0 Abs Immat Gran (auto) 0.03 Absolute Neuts (auto) 5.8 Absolute Nucleated RBC 0.000 Nucleated RBC % (auto) 0.0 Anion Gap 12 Estim Creat Clear Calc 26.0 Estimated GFR 33 POC Glucose 121 H 316 H Fasting Glucose 257 H Calcium 9.2 Total Bilirubin 0.3 AST 14 ALT 9 Alkaline Phosphatase 169 H Total Protein 6.4 L Albumin 2.8 L 06/14/23 06/14/23 07:58 11:38 MCV MCH MCHC RDW Plt Count MPV Immature Gran % (Auto) Neut % (Auto) Lymph % (Auto) [place] % (Auto) Eos % (Auto) Baso % (Auto) Lymph # (Auto) [place] # (Auto) Eos # (Auto) Baso # (Auto) Abs Immat Gran (auto) Absolute Neuts (auto) Absolute Nucleated RBC Nucleated RBC % (auto) Anion Gap Estim Creat Clear Calc Estimated GFR POC Glucose 232 H 175 H Fasting Glucose Calcium Total Bilirubin AST ALT Alkaline Phosphatase Total Protein Albumin Assessment and Plan (1) Anemia: Status: Acute Plan Hannah Grey is a 72 years old woman with PMHx significant for portal hypertensive gastropathy, autoimmune hepatitis/cholangitis and GERD admitted with: 1. Anemia -EGD consistent with suspected GA ve -continue PPI as ordered -iron infusion (2)today -advance diet as tolerated -follow daily CBC is 2.DMII -Acceptable control on current therapies -lispro correctional scale -adjust as indicated 3.HTN -supplement control on current therapies -adjust as indicated 4. CKD 3 -at baseline -follow renals/divalents SCDs only. Full. Patient will require ongoing hospitalization to observe for any recurrence of GI bleed an iron transfusion Quality Stroke Does the patient have a stroke diagnosis?: No VTE Prior VTE?: No VTE Risk Level:: Medical - moderate - high VTE Device Contraindication: N/A - Device Ordered VTE Drug Contraindication: Treatment Not Indicated
[2023-06-14 16:09] LABS: Glucose, Whole Blood 215 mg/dL (60-115)
[2023-06-14 19:16] LABS: Glucose, Whole Blood 191 mg/dL (60-115)
[2023-06-14] MEDS: bisacodyL 5 MG TABLET.DR PO (21:18)
[2023-06-15] MEDS: guaiFENesin 200 MG/10 ML 10 ML LIQUID PO ×2 (00:04→08:19)
[2023-06-15] MEDS: 0.9 % Sodium Chloride Flush 3 ML SYRINGE IVFLUSH ×2 (00:04→08:20)
[2023-06-15 03:08] VITALS: BP 160/57; PULSE 88; RESP 20; TEMP 36.9; O2SAT 97
[2023-06-15 07:01] VITALS: BP 161/71; PULSE 88; RESP 17; TEMP 36.8; O2SAT 94
[2023-06-15 07:41] LABS: Glucose, Whole Blood 190 mg/dL (60-115)
[2023-06-15] MEDS: Sucralfate 1 GM TABLET PO (08:16)
[2023-06-15] MEDS: amLODIPine Besylate 10 MG TABLET PO (08:16)
[2023-06-15] MEDS: Insulin Lispro 100 UNIT/ML 3 ML VIAL SUBCUT (08:16)
[2023-06-15] MEDS: Metoprolol Tartrate 12.5 MG HALFTAB PO (08:16)
--- NOTE | 2023-06-15 11:13 | MHC.CM.PN ---
PT is recommending STR and [facility] @ [facility] is initiating auth with [employer]. CM awaits a response from [facility] regarding the status of Patient's [facility] being re-instated. CM will follow.
[2023-06-15 11:31] LABS: Glucose, Whole Blood 215 mg/dL (60-115)
[2023-06-15 11:46] VITALS: BP 171/72; PULSE 66; RESP 18; TEMP 36.3; O2SAT 96
[2023-06-15 12:48] LABS: Basophils Percent Auto 0.3 % (0-2); Eosinophils Absolute Auto 0.3 X10*3/uL (0.0-0.4); Eosinophils Percent Auto 3.1 % (0-4); Hematocrit 30.4 % (37.0-47.0); Hemoglobin 9.7 g/dl (12.0-16.0); Imm Gran Abs Auto 0.08 X10*3/uL (0.00-0.03); Imm Gran Pct Auto 0.8 % (0.0-0.4); Lymphocytes Absolute Auto 1.5 X10*3/uL (1.2-4.9); Lymphocytes Percent Auto 14.6 % (20-40); MANUAL DIFF FLAG SCAN; Mean Corpuscular HGB Conc 31.9 g/dl (31.0-35.0); Mean Corpuscular Hemoglobin 25.9 pg (27.0-33.0); Mean Corpuscular Volume 81.1 fL (80.0-98.0); Mean Platelet Volume 11.6 fL (9.4-12.3); Monocytes Absolute Auto 0.8 X10*3/uL (0.1-1.2); Monocytes Percent Auto 7.8 % (2-11); Neutrophils Absolute Auto 7.6 x10*3/uL (2.0-8.3); Neutrophils Percent Auto 73.4 % (45-73); PLT CLUMP 1; Red Blood Count 3.75 X10*6/uL (4.20-5.50); Red Cell Distribution Width 18.8 % (11.0-16.0); SCAN SMEAR FLAG 1
[2023-06-15 12:57] LABS: White Blood Count 10.3 X10*3/uL (4.8-10.8)
[2023-06-15 13:10] LABS: Alanine Aminotransferase 12 U/L (0-31); Alkaline Phosphatase 227 U/L (39-117); Anion Gap 15 (12-20); Aspartate Amino Transferase 27 U/L (5-31); Bilirubin Total 0.4 mg/dL (0.0-1.0); Blood Urea Nitrogen 37 mg/dL (9-16); Calcium 9.2 mg/dL (8.4-10.2); Carbon Dioxide 18 mmol/L (22-29); Chloride 108 mmol/L (96-108); Creatinine Clr Calc Pharmacy 26.5; Estimated Glomerular Filt Rate 34; Glucose Fasting 230 mg/dL (60-99); Potassium 5.4 mmol/L (3.3-5.1); Sodium 136 mmol/L (135-145); Total Protein 7.1 g/dL (6.5-8.0)
--- NOTE | 2023-06-15 13:18 | P.PNIM_ITS ---
Subjective Subjective Date of Service: 06/15/23 Interval History: This history was taken in German from the patient. Tolerating diet, no abd pain Review of Systems Review of Systems: Yes all other systems are reviewed and are negative Physical Exam 2 Vital Signs: Vital Signs: Last Vital Signs Temp 97.4 F 06/15/23 11:46 Pulse 66 06/15/23 11:46 Resp 18 06/15/23 11:46 BP 171/72 H 06/15/23 11:46 Pulse Ox 96 06/15/23 11:46 O2 Del Method Room Air 06/15/23 11:46 BMI result Body Mass Index 26.7 Gen: in no acute distress HEENT: sclera anicteric, moist mucus membranes Neck: supple Lungs: clear to auscultation bilaterally Heart: regular rate and rhythm, no murmurs Abd: soft, non-tender, non-distended Ext: no edema Skin: warm/well-perfused Neuro: alert and oriented x3, no focal findings Psych: appropriate affect Objective Data Active Medications Acetaminophen (Acetaminophen 325 Mg Tablet) 650 mg PO Q6H PRN PRN Reason: Pain, Mild (Pain Scale 1-3) Last Admin: 06/14/23 04:37 Dose: 650 mg Documented By: KEY Amlodipine Besylate (Amlodipine Besylate 10 Mg Tablet) 10 mg PO DAILY [facility]; Protocol Last Admin: 06/15/23 08:16 Dose: 10 mg Documented By: GAMAL Bisacodyl (Bisacodyl 5 Mg Tablet.) 5 mg PO BEDTIME [facility] Last Admin: 06/14/23 21:18 Dose: 5 mg Documented By: ALYSSA Dextrose (Dextrose 50 % 25 Gm/50 Ml Syringe) 25 gm IVPUSH Q15M PRN; Protocol PRN Reason: per Hypoglycemia Standing Ord. Glucose (Glucose Gel 15 Gm Gel..Gram.) 15 gm PO Q15M PRN; Protocol PRN Reason: per Hypoglycemia Standing Ord. Guaifenesin (Guaifenesin 200 Mg/10 Ml 10 Ml Liquid) 10 ml PO Q4H PRN PRN Reason: Cough Last Admin: 06/15/23 08:19 Dose: 10 ml Documented By: GAMAL Insulin Human Lispro (Insulin Lispro 100 Unit/Ml 3 Ml Vial) 0 unit SUBCUT QIDACHS [facility]; Protocol Last Admin: 06/15/23 08:16 Dose: 2 unit Documented By: GAMAL Magnesium Hydroxide (Milk Of Magnesia 30 Ml Oral.Susp) 30 ml PO TID PRN PRN Reason: Constipation Metoprolol Tartrate (Metoprolol Tartrate 12.5 Mg Halftab) 12.5 mg PO DAILY [facility]; Protocol Last Admin: 06/15/23 08:16 Dose: 12.5 mg Documented By: GAMAL Sodium Chloride (0.9 % Sodium Chloride Flush 3 Ml Syringe) 3 ml IVFLUSH QSHIFT [facility] Last Admin: 06/15/23 08:20 Dose: 3 ml Documented By: GAMAL Sucralfate (Sucralfate 1 Gm Tablet) 1 gm PO BIDAC [facility] Last Admin: 06/15/23 08:16 Dose: 1 gm Documented By: GAMAL Trazodone HCl (Trazodone Hcl 100 Mg Tablet) 100 mg PO BEDTIME PRN PRN Reason: insomnia Labs 06/15/23 12:20 06/15/23 12:20 Labs: Laboratory Results - last 24 hr 06/14/23 06/14/23 06/15/23 16:06 19:12 07:05 MCV MCH MCHC RDW Plt Count MPV Immature Gran % (Auto) Neut % (Auto) Lymph % (Auto) [place] % (Auto) Eos % (Auto) Baso % (Auto) Lymph # (Auto) [place] # (Auto) Eos # (Auto) Baso # (Auto) Abs Immat Gran (auto) Absolute Neuts (auto) Absolute Nucleated RBC Nucleated RBC % (auto) Anion Gap Estim Creat Clear Calc Estimated GFR POC Glucose 215 H 191 H 190 H Random Glucose Fasting Glucose Calcium Total Bilirubin AST ALT Alkaline Phosphatase Total Protein Albumin 06/15/23 06/15/23 06/15/23 11:23 12:20 12:20 MCV 81.1 MCH 25.9 L MCHC 31.9 RDW 18.8 H Plt Count Not Reportable MPV 11.6 Immature Gran % (Auto) 0.8 H Neut % (Auto) 73.4 H Lymph % (Auto) 14.6 L [place] % (Auto) 7.8 Eos % (Auto) 3.1 Baso % (Auto) 0.3 Lymph # (Auto) 1.5 [place] # (Auto) 0.8 Eos # (Auto) 0.3 Baso # (Auto) 0.0 Abs Immat Gran (auto) 0.08 H Absolute Neuts (auto) 7.6 Absolute Nucleated RBC 0.000 Nucleated RBC % (auto) 0.0 Anion Gap 15 Cancelled Estim Creat Clear Calc 26.5 Estimated GFR POC Glucose 215 H Random Glucose Fasting Glucose Calcium Total Bilirubin AST ALT Alkaline Phosphatase Total Protein Albumin 06/15/23 06/15/23 06/15/23 12:20 12:20 12:20 MCV MCH MCHC RDW Plt Count MPV Immature Gran % (Auto) Neut % (Auto) Lymph % (Auto) [place] % (Auto) Eos % (Auto) Baso % (Auto) Lymph # (Auto) [place] # (Auto) Eos # (Auto) Baso # (Auto) Abs Immat Gran (auto) Absolute Neuts (auto) Absolute Nucleated RBC Nucleated RBC % (auto) Anion Gap Estim Creat Clear Calc Cancelled Estimated GFR 34 Cancelled POC Glucose Random Glucose Cancelled Fasting Glucose 230 H Calcium 9.2 Cancelled Total Bilirubin 0.4 AST 27 ALT 12 Alkaline Phosphatase 227 H Total Protein 7.1 Albumin 3.0 L Assessment and Plan (1) Anemia: Status: Acute Plan d6 72yo F with portal hypertensive gastropathy, autoimmune hepatitis/cholangitis, GERD, DM2, CKD3, ORAL, hx CVA, HTN sent in for anemia acute-chronic GI blood loss/iron deficiency anemia - transfused 2u pRBCs with appropriate response in H+H - given IV iron - EGD 06/11/[address] Haines: AVM, small varix, esophagitis, GAVE. APC done to AVM and GAVE. - sucralfate, PPI - f/u GI for biopsy results CKD3 - SCr around baseline DM2 - valerie-dose lispro HTN - metoprolol + amlodipine VTE ppx - SCDs dispo - pt came from LT but then [facility] ; awaiting renewal vs STR In my clinical judgment, the patient requires continued inpatient hospitalization for the following reasons: placement Total time managing care of this patient today: 35 minutes. Quality Stroke Does the patient have a stroke diagnosis?: No VTE Prior VTE?: No VTE Risk Level:: Medical - moderate - high VTE Device Contraindication: N/A - Device Ordered VTE Drug Contraindication: Treatment Not Indicated
[2023-06-15 13:26] LABS: SLIDE REVIEW VERIFIED
--- NOTE | 2023-06-15 14:21 | MHC.CM.PN ---
Per MD, Patient is medically cleared to dc to SNF/STR today. Patient will return to [facility], initially for STR, today at 3:30, via [facility]. CM left a detailed voice message for Daughter/HCP/Rasta @ [phone], informing her of the dc plan and IMM was addressed.
--- NOTE | 2023-06-15 14:48 | PM.DS ---
DS: Providers Provider Date of Service: 06/15/23 Date of admission: 06/10/23 22:00 Date of discharge: 06/15/23 Primary care physician: Lo Donato MD Consults: 06/10/23 22:04 Consult to Gastroenterology Routine Consulting Provider: Efrain Hernandez Reason for consultation: Hx of GAVE presents w/ anemia Has provider been notified: No DS: Diagnosis Discharge Diagnosis (1) Anemia: Status: Acute (2) GAVE (gastric antral vascular ectasia): Status: Acute (3) Iron deficiency anemia: Status: Acute (4) Anemia due to GI blood loss: Status: Acute (5) Acute on chronic anemia: Status: Acute (6) AVM (arteriovenous malformation): Status: Acute DS: Summary Hospital Course Hospital Course: From admission H+P by hospitalist Roxann Christensen, 06/11/23: Hannah Grey is a 72 years old woman with past medical history significant for portal hypertensive gastropathy, autoimmune hepatitis/cholangitis, GERD, type 2 diabetes mellitus on insulin, CKD stage 3, ORAL, CVA March 2023 and hypertension was sent to the emergency department after she was found to have low hemoglobin level as an outpatient. At the time of the interview and examination the patient was very upset as she was getting multiple needle sticks. She seems to be very anxious and is limited my evaluation. However, the patient was able to state that she does not have any symptoms, that she feels fine. She denied abdominal pain, nausea, vomiting, dizziness or generalized weakness. She also denies shortness of breath or chest pain. She takes aspirin daily. In the ED, she was found to have stable vital signs. There is no tachycardia and her last blood pressure is 141/53. Blood workup is remarkable for hemoglobin of 6.7 and a low MCV. BUN is elevated (prior was normal). Creatinine is slightly elevated from baseline. Chart review: EGD in 2020 showed portal hypertensive gastropathy. ED tx: PRBCs transfusion (2) ongoing, NS 1 L bolus. 72yo F with portal hypertensive gastropathy, autoimmune hepatitis/cholangitis, GERD, DM2, CKD3, ORAL, hx CVA, and HTN who was sent in for anemia. She was admitted to the telemetry unit and Gastroenterology was consulted. She was transfused 2 units of packed red blood cells with appropriate response in hemoglobin. She was also given IV iron. EGD was done on 06/11/[address] Mary Haines and showed AVM, small varix, esophagitis, and GAVE; APC was done to the AVM and GAVE. She was started on sucralfate and PPI was resumed. Diet was advanced and hemoglobin was stable with no GI bleeding. She will follow up with GI for biopsy results. Creatinine remained around baseline [CKD3]. She was discharged back to [facility] for long-term care. Time Attestation Discharge coordination time: Greater than 30 minutes Quality: Safe Use of Opioids Does Pt have an Active Cancer Diagnosis on the Problem List?: No Quality: Stroke Does the patient have a stroke diagnosis?: No Physical Exam Vital Signs: Vital Signs: Last Vital Signs Temp 97.4 F 06/15/23 11:46 Pulse 66 06/15/23 11:46 Resp 18 06/15/23 11:46 BP 171/72 H 06/15/23 11:46 Pulse Ox 96 06/15/23 11:46 O2 Del Method Room Air 06/15/23 13:00 BMI result Body Mass Index 26.7 Gen: in no acute distress HEENT: sclera anicteric, moist mucus membranes Neck: supple Lungs: clear to auscultation bilaterally Heart: regular rate and rhythm, no murmurs Abd: soft, non-tender, non-distended Ext: no edema Skin: warm/well-perfused Neuro: alert and oriented x3, no focal findings Psych: appropriate affect DS: Data Data Completed and Pending Completed studies during hospitalization [Text1]: Laboratory Results WBC 10.3 X10*3/uL (4.8-10.8) 06/15/23 12:20 RBC 3.75 X10*6/uL (4.20-5.50) L 06/15/23 12:20 Hgb 9.7 g/dl (12.0-16.0) L 06/15/23 12:20 Hct 30.4 % (37.0-47.0) L 06/15/23 12:20 MCV 81.1 fL (80.0-98.0) 06/15/23 12:20 MCH 25.9 pg (27.0-33.0) L 06/15/23 12:20 MCHC 31.9 g/dl (31.0-35.0) 06/15/23 12:20 RDW 18.8 % (11.0-16.0) H 06/15/23 12:20 Plt Count Not Reportable 06/15/23 12:20 MPV 11.6 fL (9.4-12.3) 06/15/23 12:20 Immature Gran % (Auto) 0.8 % (0.0-0.4) H 06/15/23 12:20 Neut % (Auto) 73.4 % (45-73) H 06/15/23 12:20 Lymph % (Auto) 14.6 % (20-40) L 06/15/23 12:20 [place] % (Auto) 7.8 % (2-11) 06/15/23 12:20 Eos % (Auto) 3.1 % (0-4) 06/15/23 12:20 Baso % (Auto) 0.3 % (0-2) 06/15/23 12:20 Lymph # (Auto) 1.5 X10*3/uL (1.2-4.9) 06/15/23 12:20 [place] # (Auto) 0.8 X10*3/uL (0.1-1.2) 06/15/23 12:20 Eos # (Auto) 0.3 X10*3/uL (0.0-0.4) 06/15/23 12:20 Baso # (Auto) 0.0 X10*3/uL (0.0-0.2) 06/15/23 12:20 Abs Immat Gran (auto) 0.08 X10*3/uL (0.00-0.03) H 06/15/23 12:20 Absolute Neuts (auto) 7.6 x10*3/uL (2.0-8.3) 06/15/23 12:20 Absolute Nucleated RBC 0.000 X10*3/uL (0.0-0.012) 06/15/23 12:20 Nucleated RBC % (auto) 0.0 /100WBC (0.0-0.2) 06/15/23 12:20 Smear Tech's Comments VERIFIED 06/15/23 12: PT 11.4 SEC (11.1-13.3) 06/10/23 19:15 INR 0.9 (0.9-1.1) 06/10/23 19:15 APTT 36.5 SEC (26.0-36.8) 06/10/23 19:15 Sodium 136 mmol/L (135-145) 06/15/23 12:20 Sodium Cancelled 06/15/23 12:20 Potassium 5.4 mmol/L (3.3-5.1) H D 06/15/23 12:20 Potassium Cancelled 06/15/23 12:20 Chloride 108 mmol/L (96-108) 06/15/23 12:20 Chloride Cancelled 06/15/23 12:20 Carbon Dioxide 18 mmol/L (22-29) L 06/15/23 12:20 Carbon Dioxide Cancelled 06/15/23 12:20 Anion Gap 15 (12-20) 06/15/23 12:20 Anion Gap Cancelled 06/15/23 12:20 BUN 37 mg/dL (9-16) H 06/15/23 12:20 BUN Cancelled 06/15/23 12:20 Creatinine 1.51 mg/dL (0.5-1.4) H 06/15/23 12:20 Creatinine Cancelled 06/15/23 12:20 Estim Creat Clear Calc 26.5 06/15/23 12:20 Estim Creat Clear Calc Cancelled 06/15/23 12:20 Estimated GFR 34 06/15/23 12:20 Estimated GFR Cancelled 06/15/23 12:20 POC Glucose 215 mg/dL (60-115) H 06/15/23 11:23 Random Glucose Cancelled 06/15/23 12:20 Fasting Glucose 230 mg/dL (60-99) H 06/15/23 12:20 Calcium 9.2 mg/dL (8.4-10.2) 06/15/23 12:20 Calcium Cancelled 06/15/23 12:20 Total Bilirubin 0.4 mg/dL (0.0-1.0) 06/15/23 12:20 AST 27 U/L (5-31) 06/15/23 12:20 ALT 12 U/L (0-31) 06/15/23 12:20 Alkaline Phosphatase 227 U/L (39-117) H 06/15/23 12:20 Total Protein 7.1 g/dL (6.5-8.0) 06/15/23 12:20 Albumin 3.0 g/dL (3.5-5.0) L 06/15/23 12:20 Stool Occult Blood NEGATIVE (NEGATIVE) 06/10/23 19:15 Blood Type A Positive 06/10/23 19:15 Antibody Screen NEGATIVE 06/10/23 19:15 Crossmatch See Detail 06/10/23 19:15 Impressions Chest X-Ray 06/12/23 00:22 IMPRESSION: Low lung volumes. Pulmonary vascular congestion. No focal lung consolidation. Pending studies at discharge: Pending at discharge 06/11/23 13:49 Surgical [PTH] Routine Discharge Plan Discharge Anticipated Discharge Date/Time: 06/12/23 13:40 Patient Disposition: Xfer LT Discharge Diagnosis: Anemia due to iron deficiency and GI blood loss from GAVE/AVM Referrals: [facility] [Outside] - 1 Week Efrain Hernandez MD [Physician] - 2 Weeks Lo Donato MD [Primary Care Provider] - 1 Week Discharge Medications: New sucralfate 1 gram Tablet 1 g PO BIDAC Qty: 60 0RF ascorbate calcium (vitamin C) 500 mg tablet 500 mg PO DAILY Qty: 30 0RF ferrous sulfate [Feosol] 325 mg (65 mg iron) tablet 325 mg PO DAILY Qty: 30 0RF Continued (DME) blood sugar diagnostic Strip See Rx Instructions .ROUTE .MEDSUPPLY Qty: 150 11RF Rx Instructions: As directed four times a day (DME) FreeStyle Fatmata 2 Sensor Kit See Rx Instructions .ROUTE .MEDSUPPLY Qty: 2 5RF Rx Instructions: As directed every 2 weeks ursodiol 500 mg tablet 500 mg PO BID 90 Days Qty: 180 3RF acetaminophen 500 mg tablet 500 mg PO Q6H PRN (Reason: mild pain) multivitamin with folic acid [Daily-Katie (with folic acid)] 400 mcg tablet 1 tab PO QAM amlodipine 10 mg Tablet 10 mg PO DAILY Qty: 30 0RF Protocol: Hold for SBP< HOLD for SBP < : 90 insulin glargine [Lantus U-100 Insulin] 100 unit/mL solution 25 unit subcut DAILY insulin lispro [Humalog U-100 Insulin] 100 unit/mL solution 0 sliding scale dose subcut QIDACHS Protocol: Insulin Correction Scale Less than or equal to 110 ---- Give (units): 0 111 to 150 Give (units): 0 151 to 200 Give (units): 2 201 to 250 Give (units): 4 251 to 300 Give (units): 6 301 to 350 Give (units): 8 Greater than 350 Give (units): 10 Call MD if Blood Glucose > : 350 fluticasone propionate 50 mcg/actuation [place],Suspension 1 spray INTRANASAL BID Rx Instructions: administer into each nostril trazodone 100 mg tablet 100 mg PO BEDTIME pantoprazole 40 mg tablet,delayed release (DR/EC) 40 mg PO DAILY Linzess 145 mcg capsule 145 mcg PO DAILY PRN (Reason: GI UPSET) (DME) FreeAquaporin Fatmata 2 [place] [facility] See Rx Instructions .ROUTE .MEDSUPPLY Qty: 1 0RF Rx Instructions: As directed aspirin [Adult Aspirin Regimen] 81 mg tablet,delayed release (DR/EC) 81 mg PO DAILY Hold Instructions: hold for one week from EGD on 12/31 - resume 01/07 metoprolol tartrate 25 mg tablet 12.5 mg PO DAILY cholecalciferol (vitamin D3) 50 mcg (2,000 unit) capsule 2,000 unit PO DAILY All Day Allergy (cetirizine) 10 mg capsule 10 mg PO DAILY PRN (Reason: Allergic Symptoms) Discharge Orders: Discharge Order (Routine); Ordered 06/15/23 Ordered By: Juan Oneal Diet: Advance to usual diet Activity on Discharge: As tolerated Stand Alone Forms: Patient Portal Discharge page Care Plan Goals: Recovery from anemia Health Concerns: Anemia due to iron deficiency and GI blood loss from GAVE/AVM Plan of Treatment: take iron with vitamin C and also take sucralfate follow up with Gastroenterology [Dr Hernandez] in 2 weeks for biopsy results Assessment: See discharge summary
[2023-06-15 15:12] VITALS: BP 147/67
== END 2023-06-15 16:01 | DRG 378 ==
LOC: HO.ED 16:55 → HO.EDOVER 22:08 → HO.IMC 06-11 08:31
PROVIDERS: Hospitalist; Internal Medicine Gastroenterology; Physician Assistant; Admitting Provider Internal Medicine; Emergency Provider Student in an Organized Health Care Education/Training Program; PCP General Practice; Visit Provider Family Medicine
PROC: 0DJ08ZZ Inspection of Upper Intestinal Tract, Via Natural or Artificial Opening Endoscopic (ICD-10-PCS; CPT 43235; principal; 2023-06-11 14:30)
DX: K31.811 Angiodysplasia of stomach and duodenum with bleeding (principal); D62 Acute posthemorrhagic anemia; I12.9 Hypertensive chronic kidney disease with stage 1 through stage 4 chronic kidney disease, or unspecified chronic kidney disease; K74.3 Primary biliary cirrhosis; N18.30 Chronic kidney disease, stage 3 unspecified; D63.1 Anemia in chronic kidney disease; K59.09 Other constipation; F41.9 Anxiety disorder, unspecified; E11.649 Type 2 diabetes mellitus with hypoglycemia without coma; D50.9 Iron deficiency anemia, unspecified; F32.A Depression, unspecified; K20.90 Esophagitis, unspecified without bleeding; I85.00 Esophageal varices without bleeding; E11.22 Type 2 diabetes mellitus with diabetic chronic kidney disease; Z79.4 Long term (current) use of insulin; Z79.82 Long term (current) use of aspirin; Z79.51 Long term (current) use of inhaled steroids; Z79.899 Other long term (current) drug therapy
CPT/HCPCS: 36415; 71045; 80048; 80053; 82272; 82947; 85025; 85027; 85610; 85730; 86850; 86900; 86901; 86923; 88305; 88313; 88342; 97162; 99285; C9113; J1596; J1756; J1940; J2704; P9016

== ENCOUNTER → 2023-06-10 22:00 | Outpatient (BNV) | payer OTHER, SELFPAY | PROVIDERS: Admitting Provider Internal Medicine; Emergency Provider Student in an Organized Health Care Education/Training Program; Visit Provider Internal Medicine Gastroenterology | DX: D50.9 Iron deficiency anemia, unspecified (principal); K20.90 Esophagitis, unspecified without bleeding; Q27.33 Arteriovenous malformation of digestive system vessel; K31.89 Other diseases of stomach and duodenum | CPT/HCPCS: 43239; 43270 ==

== ENCOUNTER → 2023-06-10 22:00 | Outpatient (BNV) | payer OTHER, SELFPAY | PROVIDERS: Admitting Provider Internal Medicine; Emergency Provider Student in an Organized Health Care Education/Training Program; Visit Provider Internal Medicine | DX: K83.09 Other cholangitis (principal); D50.9 Iron deficiency anemia, unspecified; R79.89 Other specified abnormal findings of blood chemistry; K59.09 Other constipation | CPT/HCPCS: 99223; 99232; 99233; 99238; 99499 ==

== ENCOUNTER → 2023-06-10 22:00 | Outpatient (BNV) | payer OTHER, SELFPAY | PROVIDERS: Admitting Provider Internal Medicine; Emergency Provider Student in an Organized Health Care Education/Training Program; PCP General Practice; Visit Provider Internal Medicine Gastroenterology | DX: D50.9 Iron deficiency anemia, unspecified (principal); K83.09 Other cholangitis; R79.89 Other specified abnormal findings of blood chemistry; K59.09 Other constipation | CPT/HCPCS: 99223 ==

== ENCOUNTER 2023-07-15 10:41 | Outpatient (REF) | payer OTHER, SELFPAY ==
[2023-07-15 11:21] LABS: MANUAL DIFF FLAG NO
[2023-07-15 11:24] LABS: Basophils Absolute Auto 0.1 X10*3/uL (0.0-0.2); Basophils Percent Auto 0.7 % (0-2); Eosinophils Absolute Auto 0.3 X10*3/uL (0.0-0.4); Hematocrit 35.4 % (37.0-47.0); Imm Gran Abs Auto 0.04 X10*3/uL (0.00-0.03); Imm Gran Pct Auto 0.5 % (0.0-0.4); Lymphocytes Absolute Auto 1.8 X10*3/uL (1.2-4.9); Lymphocytes Percent Auto 23.2 % (20-40); Mean Corpuscular HGB Conc 31.1 g/dl (31.0-35.0); Mean Corpuscular Hemoglobin 27.4 pg (27.0-33.0); Mean Corpuscular Volume 88.1 fL (80.0-98.0); Monocytes Absolute Auto 0.6 X10*3/uL (0.1-1.2); Monocytes Percent Auto 8.1 % (2-11); Neutrophils Absolute Auto 4.9 x10*3/uL (2.0-8.3); Neutrophils Percent Auto 63.5 % (45-73); Platelet Count 196 X10*3/uL (160-400); Red Blood Count 4.02 X10*6/uL (4.20-5.50); Red Cell Distribution Width 21.9 % (11.0-16.0); White Blood Count 7.7 X10*3/uL (4.8-10.8)
[2023-07-15 11:33] LABS: Prothrombin Time 11.8 SEC (11.1-13.3)
[2023-07-15 11:41] LABS: Alanine Aminotransferase 36 U/L (0-31); Albumin Level 3.5 g/dL (3.5-5.0); Alkaline Phosphatase 327 U/L (39-117); Anion Gap 10 (12-20); Aspartate Amino Transferase 40 U/L (5-31); Bilirubin Total 0.3 mg/dL (0.0-1.0); Blood Urea Nitrogen 61 mg/dL (9-16); Calcium 9.9 mg/dL (8.4-10.2); Carbon Dioxide 23 mmol/L (22-29); Chloride 111 mmol/L (96-108); Estimated Glomerular Filt Rate 33; Glucose Random 196 mg/dL (60-115); Potassium 4.6 mmol/L (3.3-5.1); Sodium 139 mmol/L (135-145); Total Protein 7.7 g/dL (6.5-8.0)
== END 2023-07-15 10:42 | disposition home or self-care (01) ==
LOC: HO.HHCL 10:41
PROVIDERS: Visit Provider Nurse Practitioner Family
DX: D64.9 Anemia, unspecified (principal); K74.60 Unspecified cirrhosis of liver
CPT/HCPCS: 36415; 80053; 85025; 85610

== ENCOUNTER 2023-12-05 21:10 | Inpatient (IN) | payer MEDICARE, MEDICAID, SELFPAY ==
--- NOTE | ~2023-12-05 | CT_ITS ---
EXAMINATION: CT ABDOMEN AND PELVIS WITHOUT CONTRAST CLINICAL INFORMATION: Reason for Exam diffuse pain, constipaton, L hip pain s/p surgery COMPARISON: 03/20/2023 TECHNIQUE: Multidetector volumetric imaging was performed from the superior aspect of the liver through the pubic symphysis. Sagittal and coronal reformatted images were obtained on the technologist's workstation. This CT examination was performed using dose optimization techniques as appropriate, variously including the following: *Automated exposure control *Adjustment of mA and/or kV according to patient size (this includes techniques or standardized protocols for targeted exams where dose is matched to indication/reason for exam; i.e. extremities or head) *Use of iterative reconstruction technique DLP: 867 mGy-cm FINDINGS: LUNG BASES: Trace left pleural effusion. Nonspecific mild bibasilar reticulation. LIVER, GALLBLADDER, AND BILIARY TREE: Liver again demonstrates a nodular contour suspicious for underlying cirrhosis. No appreciable focal hepatic abnormality on this noncontrast exam. Trace perihepatic fluid. No intrahepatic biliary ductal dilatation. Status post cholecystectomy. PANCREAS: Unremarkable. SPLEEN: Unremarkable. ADRENAL GLANDS: Unremarkable. KIDNEYS AND URETERS: No hydronephrosis or obstructing calculus bilaterally. Lobulated contour of the bilateral kidneys. Redemonstration of a few renal cysts; no follow-up recommended. BLADDER: Unremarkable. GASTROINTESTINAL TRACT: No evidence of bowel obstruction. There is mural prominence of the relatively collapsed ascending colon, of uncertain clinical significance. No free air is seen. ABDOMINAL WALL: No significant hernia is appreciated. LYMPH NODES: Normal. VASCULAR: There is atherosclerotic calcification along the aorta and iliac arteries. PELVIC VISCERA: Unremarkable. OSSEOUS STRUCTURES: Multilevel degenerative changes in the spine. Compression deformities of T12 and L4 appear stable from prior. Mild retropulsion at T12 redemonstrated. Partially visualized ORIF hardware in the left femur traversing a comminuted intertrochanteric fracture. Small amount of soft tissue gas lateral to the left hip is presumably related to recent surgery. Overlying subcutaneous stranding is also present. There are also more confluent regions of soft tissue attenuation lateral to the left hip such as measuring up to approximately 10.5 cm on coronal image 63 along the superior aspect of the hip and approximately 9 cm in length lateral to the proximal femoral shaft, suspicious for postoperative hematomas. CT/CT abdomen pelvis wo IV con IMPRESSION: 1. Partially visualized ORIF hardware in the left hip traversing a comminuted intertrochanteric fracture. Overlying soft tissue stranding and soft tissue gas are present. More confluent regions of soft tissue attenuation lateral to the left hip are suspicious for postoperative hematomas as noted above. 2. Mural prominence of the relatively collapsed ascending colon, of uncertain clinical significance. In the setting of cirrhosis this could reflect portal colopathy, though an infectious/inflammatory colitis could also have this appearance in the proper clinical setting. 3. Trace perihepatic fluid. 4. Trace left pleural effusion.
[2023-12-05 21:14] VITALS: BP 130/70; PULSE 70; O2SAT 97
[2023-12-05 21:20] VITALS: BP 122/34; PULSE 69; RESP 18; TEMP 37.1; O2SAT 97; BMI 34.1
--- OUTSIDE RECORDS SUMMARY | 2023-12-05 21:34 | XMS_ITS | Continuity of Care Document ---
Author Organization [facility] ter Address [address] [place] [id number]- Care Team Providers Care Target Aircraft Technician Name Role Phone Kathy Buck MD Primary Care Physician Encounter [facility] Date(s): 10/21/23 - 10/26/[address] [address]- Encounter Diagnosis SAM (acute kidney injury)(Final) - 10/21/23 Dehydration(Final) - 10/21/23 AMS (altered mental status)(Final) - 10/21/23 Discharge Disposition: A-D/C Home Attending Physician: Jared FRANKLIN, Noor Admitting Physician: Jan Lubin MD Referring Physician: Not on Staff, Referring MD Allergies, Adverse Reactions, Alerts No Known Allergies Immunizations Given and Recorded Vaccine Date Status Refusal Reason SARS-CoV-2 mRNA ([id number]) vax 07/09/21 Recorded SARS-CoV-2 (COVID-19) Ad26 vaccine 10/15/20 Record ed Medications acetaminophen 500 mg oral tablet 2 [...] 0 Refills, Maintenance, 10/05/19 15:29:00 EDT, Tablet, [facility]/pharmacy #[id number], 144.78, cm, 10/05/19 14:50:00 EDT, Height, 89.5, kg, 10/01/19 20:04:00 EDT,Dry Weight Start Date: 10/05/19 Stop Date: 11/04/19 Status: Ordered fluticasone 50 mcg/inh nasal spray 1 sprays, Nares, Both, 2 times a day, # 16 Gm, 0 Refills, Maintenance, 12/01/20 4:52:00 EDT, [place],Partial fill upon patient request if the prescription is for a schedule II opioid drug. Start Date: 12/01/20 Status: Ordered insulin glargine 100 units/mL subcutaneous solution = 15 units, Subcutaneous Injection, Daily in AM, # 3.6 mL, 0 Refills, Maintenance, 03/08/22 13:57:00 EDT, Injection, [facility], Partial fill upon patient [...] Refills, Maintenance, 08/03/22 10:00:00 EDT, [id number], 144.8, cm, 04/14/22 12:40:00 EST, Height, 67, kg, 03/04/22 21:45:00 EDT, Dry Weight Start Date: 08/03/22 Status: Ordered MiraLax oral powder for reconstitution = 17 Gm, By Mouth, 2 times a day before breakfast and dinne, dissolve in water before taking, # 527Gm, 11 Refills, Maintenance, 05/28/21 13:46:00 EST, REC Powder, [facility]/pharmacy #[id number], Partial fill upon patient request if the prescription is for a sche... Start Date: 05/28/21 Status: Ordered Norvasc 5 mg oral tablet 5 mg, 1, tablet, By Mouth, Daily, # 30 tablet, Refills 2, Tot. Refills 2, Maintenance, 10/26/23 10:20:00 EDT, Route to Pharmacy Electronically, [facility]/pharmacy #[id number], Partial fill upon patient request if the prescription is for a schedule II opioid drug.... Start Date: 10/26/23 Stop Date: 01/24/24 Status: Ordered Norvasc 5 mg oral tablet 7.5 mg, Tablet, By Mouth, 10/26/23 9:00:00 EDT Start Date: 10/26/23 Stop Date: 10/26/23 Status: Completed ondansetron 4 mg oral tablet, disintegrating 1 tablet = 4 mg, By Mouth, Every 8 hours, PRN Nausea & Vomiting, # 10 tablet, 0 Refills, Maintenance, 06/04/21 17:06:00 EST, Tablet, Partial fill upon patient request if the prescription is for aschedule II opioid drug. Start Date: 06/04/21 Status: Ordered oxyCODONE 5 mg oral tablet 2.5 mg, By Mouth, Every 6 hours, PRN, for 1 days, # 5 tablet, Refills 0, Tot. Refills 0, Acute 10/27/23 10:20:00 EDT, Pain , Severe, 10/26/23 10:20:00 EDT, Route to Pharmacy Electronically, [facility]/pharmacy #[id number], Partial fill upon patient request if the... Start Date: 10/26/23 Stop Date: 10/27/23 Status: Ordered Protonix 40 mg oral delayed [...] 10/20/22 9:58:00 EDT, Route to Pharmacy Electronically, [facility]/pharmacy #[id number], Partial fill upon patient [...] Exam Date Time Procedure Performing Provider Status 10/23/23 4:02 PM Abdomen AP Prabhakar Thomas; Auth (Verified) Notes: (Abdomen AP) Reason For Exam: Pain RESULT: XR Abdomen AP XR Abdomen AP 1 view INDICATION: Abdominal pain; Clinical Question(s): Obstruction COMPARISON: None FINDINGS: Mild stool retention but otherwise normal bowel gas pattern. No evidence of obstruction. No evidence of pneumoperitoneum. Moderate gastric distention with air. No organomegaly, masses or calcifications. Oral contrast is seen in a normal caliber left colon and rectosigmoid colon. No acute bone findings. Probable prior cholecystectomy. Clear lung bases. IMPRESSION: Mild stool retention but otherwise normal. No definite evidence of mechanical small or large bowel obstruction is seen. I have personally reviewed the images and I agree with this report. WSN: [id number] Ordering Physician: Robert Coleman Dictated By: Juan Carlos Hayes MD Dictated Date/Time: 10/23/23 4:21 pm Reviewed By: Sam Casas MD, V Signed By: aSm Casas MD, V Signed Date/Time: 10/23/23 4:26 pm Transcribed By: KEYSHA Transcribed Date/Time: 10/23/23 4:17 pm * Exam Date Time Procedure Performing Provider Status 10/23/23 4:02 PM Chest Portable Prabhakar Thomas; Aut h (Verified) Notes: (Chest Portable) Reason For Exam: Pleuritic Pain RESULT: Chest Portable Chest Portable INDICATION: Pleuritic Pain; Clinical Question(s): CHF COMPARISON: 10/21/2023. FINDINGS: LINES AND TUBES: None. LUNGS AND PLEURA: Low lung volumes with mild basilar atelectasis. Lungs are otherwise clear with no consolidation. No pleural effusion. No pneumothorax. HEART, MEDIASTINUM AND ANIKET: Heart is normal in size. Normal mediastinal and hilar contour. BONES AND SOFT TISSUES: No acute abnormality. IMPRESSION: No evidence of acute abnormality. I have personally reviewed the images and I agree with this report. WSN: [id number] Ordering Physician: Robert Coleman Dictated By: Juan Carlos Hayes MD Dictated Date/Time: 10/23/23 4:13 pm Reviewed By: Junito Brito MD Signed By: Junito Brito MD Signed Date/Time: 10/23/23 4:18 pm Transcribed By: KEYSHA Transcribed Date/Time: 10/23/23 4:09 pm * Exam Date Time Procedure Performing Provider Status 10/21/23 2:55 PM Chest 2 Views Frontal and Lat Matt Hand; Betty (Verified) Notes: (Chest 2 Views Frontal and Lat) Reason For Exam: Chest Pain;Other: RESULT: Chest 2 Views Frontal and Lat Chest 2 Views Frontal and Lat Hx of Present Illness: BIBA from home of [facility]. c o headache, body aches, allergy flare up, and weakness. richard was seen at [facility] on 10 16 for the same thing. hx of dementia.; Reason: Other:; Chest Pain; Clinical Question(s): CHF COMPARISON: 09/07/2023. FINDINGS: LINES AND TUBES: None. LUNGS AND PLEURA: Low lung volumes with mild basilar atelectasis. No pleural effusion. No pneumothorax. HEART, MEDIASTINUM AND ANIKET: Heart is normal in size. Normal mediastinal and hilar contour. BONES AND SOFT TISSUES: No acute abnormality. IMPRESSION: Low lung volumes with mild basilar atelectasis. No acute abnormality. WSN: [id number] Ordering Physician: Kadie Mahoney Dictated By: Robert Ellis MD Dictated Date/Time: 10/21/23 3:00 pm Reviewed By: Robert Ellis MD Signed By: Robert Ellis MD Signed Date/Time: 10/21/23 3:00 pm Transcribed By: KEYSHA Transcribed Date/Time: 10/21/23 3:00 pm * Exam Date Time Procedure Performing Provider Status 10/21/23 1:[address] Abd/Pelvis W/ IV Contrast Only Sabrina Fry; Betty (Verified) Notes: (CT Abd/Pelvis W/ IV Contrast Only) Reason For Exam: LLQ abdominal pain;Other: RESULT: CT Abd/Pelvis W/ IV Contrast Only CT Abd/Pelvis W/ IV Contrast Only Hx of Present Illness: body aches, weakness. LLQ abdominal pain; Clinical Question(s): Diverticulitis TECHNIQUE: Spiral CT through the abdomen and pelvis with IV contrast formatted in 3 planes. 100 cc of Omnipaque 300 was administered intravenously. This study was performed with oral contrast. Weight-based protocol using automatic tube modulation was used to optimize exposure parameters. CTDIvol Body: 21.30 mGy, DLP Body: 1054 mGy*cm. COMPARISON: CT abdomen and pelvis 07/23/2022 FINDINGS: Dinkey Engine Operator View Findings, Lines and Tubes: None. Visualized Chest: Mild dependent atelectasis. No pleural effusion. The heart is normal in size. No pericardial effusion. Moderate to severe mitral valve calcification Diaphragm: Normal. Liver: Mildly lobulated contour consistent with cirrhosis. No focal lesion. Gallbladder: Absent consistent with prior cholecystectomy. Bile ducts: No biliary ductal dilation. Spleen: Normal. Pancreas: Normal. Adrenal glands: Normal. Kidneys and ureters: A few small nonobstructing right renal calculi versus calcified vessels. Lobulated contour of both kidneys. Atrophic scarred right kidney. No hydronephrosis or suspicious masses. Bladder: Normal. Reproductive organs: Unremarkable. Stomach, small bowel, and large bowel: Enteric contrast has reached the colon. There is no evidencefor bowel obstruction. There are minimal diverticula seen scattered within the large bowel but no findings of acute diverticulitis or colitis. Mild retention of stool is noted.. Appendix: Not seen, but no evidence of appendicitis. Peritoneum and retroperitoneum: No ascites or pneumoperitoneum. No omental or mesenteric lesions. Lymph nodes: No enlarged lymph nodes. Blood vessels: Moderate atherosclerotic vascular calcification. No aortic aneurysm. No evidence of venous thrombosis. Abdominal and pelvic wall: Unchanged Freeman's hernia in the right lower quadrant containing a portion of the anterior wall of the cecum. Small fat- containing umbilical hernia. Bones: Chronic compression fractures of T12 and L4. Mild degenerative changes with endplate spurring. IMPRESSION: No acute intra-abdominal pathology is identified. Cirrhotic liver without ascites or focal mass. No evidence for diverticulosis or diverticulitis. Mild constipation. Other nonacute findings as above. I have personally reviewed the images and I agree with this report. WSN: [id number] Ordering Physician: Kadie Mahoney Dictated By: Boo Francisco MD Dictated Date/Time: 10/21/23 2:28 pm Reviewed By: Robert Ellis MD Signed By: Robert Ellis MD Signed Date/Time: 10/21/23 2:33 pm Transcribed By: KEYSHA Transcribed Date/Time: 10/21/23 2:18 pm Vital Signs Most recent to oldest [Reference Range]: 1 2 3 Height 153 cm (10/26/23 8:09 AM) 153 cm (10/26/23 5:53 AM) 153 cm (10/25/23 7:51 PM) Weight 73.1 kg (10/22/23 1:23 AM) 77.2 kg (10/21/23 11:31 PM) 77.2 kg (10/21/23 11:48 AM) Oxygen Saturation [94-100 %] 95 % (10/26/23 8:09 AM) 98 % (10/26/23 5:53 AM) 100 % (10/25/23 7:51 PM) Pulse Rate [55-90 bpm] 66 bpm (10/26/23 8:09 AM) 69 bpm (10/26/23 5:53 AM) 66 bpm (10/25/23 7:51 PM) Body Mass Index [18.5-24.99 kg/m2] 31.23 kg/m2 *>HHI* (10/22/23 1:23 AM) 32.98 kg/m2 *>HHI* (10/21/23 11:31 PM) Blood Pressure [90-138/55-84 mm Hg] 171/80mm Hg *H* (10/26/23 8:47 AM) 172/75mm Hg *H* (10/26/23 8:09 AM) 158/64mm Hg *H* (10/26/23 5:53 AM) Respiratory Rate [16-30 br/min] 16 br/min (10/26/23 8:09 AM) 18 br/min (10/26/23 5:53 AM) 18 br/min (10/25/23 7:51 PM) Temperature [96.8-100.4 DegF] 98.3 DegF (10/26/23 8:09 AM) 98.1 DegF (10/26/23 5:53 AM) 98.2 DegF (10/25/23 7:51 PM) Mode of Delivery (Oxygen) Room air (10/26/23 8:09 AM) Room air (10/26/23 5:53 AM) Room air (10/25/23 7:51 PM) Blood pressure sites Arm, right (10/26/23 8:09 AM) Arm, left (10/26/23 5:53 AM) Arm, left (10/25/23 7:51 PM) Temperature Route Oral (10/26/23 8:09 AM) Oral (10/26/23 5:53 AM) Oral (10/25/23 7:51 PM) Dry Weight 73.1 kg (10/22/23 1:23 AM) 77.2 kg (10/21/23 11:31 PM) 77.2 kg (10/21/23 11:48 AM) Weight Obtained Via Standing scale (10/22/23 1:23 AM) Patient/family stated (10/21/23 11:38 AM) Dry Weight Obtained Via Standing scale (10/22/23 1:23 AM) Patient/family stated (10/21/23 11:38 AM) Social History Social History Type Response Smoking Status Never (less than 100 in lifetime) entered on: 06/27/21 Sex Female History and physical note * Galo FRANKLIN, Sal Kearns: PERFORM Event Display: History and Physical Hospital Authored Date: Patient: ??GLADIS GILBERT ? Age:??72 Years?Sex:??Female?:??1950?? Chief Complaint/Reason for Consultation pt coming from home for body aches and weakness. pt was seen at [facility] on 10/16 for the same thing. hx of dementia. History of Present Illness This is a 72-year-old Libyan-speaking patient, spoke to the patient her primary language, Libyan.?? She has significant history of chronic kidney disease, dyslipidemia, hypertension, diabetes type 2 requiring insulin for control, and immune hepatitis, depression who comes into the emergency room with multiple complaints.?? The patient describes headache and according to her, she has been struggling with urinary infection for over a week .?? She denies any use of any antibiotics and complainsof generalized weakness.?? She lives home with her grandson and usually ambulates using a walker.??She describes occasional nausea but denies any vomiting.?? No diarrhea or urinary discomfort. Emergency room, she was found to have a potassium of 5.5 and received a low-dose of Lokelma.?? Additional lab work showed a BUN of 51 with a creatinine of 2.0.?? Patient baseline is 1.6-1.5. She underwent a UA which was unremarkable for infection. Patient continues with multiple vague complaints including headache, shortness of breath, generalized weakness, aches and pains all over her body and persistent discomfort upon urination. Review of Systems A full review of systems was completed and is otherwise negative except as mentioned in history of present illness. Objective Measurements?? Height: 153 cm (10/21/23) Weight: 77.2 kg (10/21/23) Dry Weight: 77.2 kg (10/21/23) ? Vital Signs?? Temperature: 97.7 DegF (10/21/23 21:00:00) Temperature Route: Oral (10/21/23 21:00:00) Pulse Rate:??50 bpm??Low (10/21/23 21:00:00) Respiratory Rate: 18 br/min (10/21/23 21:00:00) Systolic Blood Pressure:??165 mm Hg??High (10/21/23 21:00:00) Diastolic Blood Pressure: 60 mm Hg (10/21/23 21:00:00) Mean Arterial Pressure: 91 mm Hg (10/21/23 11:38:00) Pulse Pressure: 105 mm Hg (10/21/23 21:00:00) Oxygen Saturation: 100 % (10/21/23 21:00:00) Mode of Delivery (Oxygen): Room air (10/21/23 21:00:00) Early Warning Score: 3 (10/21/23 21:27:16) ? Physical Exam Constitutional: Alert, in no distress. Mental Status: Oriented to person, place and time. Head: Normocephalic. Eyes: Pupils are equal, round and reactive to light. Extraocular muscles intact. Ear, Nose and Throat: Oropharynx clear, mild pallor without jaundice,??mucous membranes??slightly dry. Ears and nose without masses, lesions or deformities. Trachea midline. Neck: Supple, Full range of motion. Respiratory: Clear to auscultation. No wheezing, rales or rhonchi. Cardiovascular: S1 S2 regular. No murmurs, rubs or gallops. Gastrointestinal: Obese, abdomen soft, non-tender, non-distended. Normal bowel sounds. No pulsatilemass. No hepatosplenomegaly. Genitourinary: No costovertebral angle tenderness. Neurologic: Cranial nerves II-XII grossly intact. No focal neurological deficits. Flexor plantar response. Moves all extremities spontaneously. Sensation intact bilaterally. Skin: No rashes or lesions. No petechiae or purpura.?No lower extremity edema. Musculoskeletal: No cyanosis or clubbing. No gross deformities. Normal range of motion. Heme/Lymphatics/Immun: Palpation of neck reveals no swelling or tenderness of neck nodes. Palpationof groin reveals no swelling or tenderness of groin nodes. Psychiatric: Normal mood and affect Assessment/Plan Diagnoses SAM (acute kidney injury) ??(N17.9) AMS (altered mental status) ??(R41.82) Chronic anemia ??(D64.9) Cirrhosis ??(K74.60) Dehydration ??(E86.0) Dementia ??(F03.90) Depression ??(F32.A) Hypertension ??(I10) ?? SAM (acute kidney injury) (N17.9):??Patient with acute on chronic kidney injury. She will be??placed on observation on regular floor. The patient received??2 L of IV fluids while in the emergency room. Continue??IV fluid resuscitation with LR at 75 mL/h. Monitor BUN and creatinine. Avoid nephrotoxins ?? Hypertension (I10):??Continue amlodipine??2.5 mg p.o. daily ?? Depression (F32.A):? Continue escitalopram??5 mg p.o. once a day ?? Chronic anemia (D64.9):? Continue ferrous fumarate ?? Dementia (F03.90):??Frequent reorientation by nursing staff. Avoid La catheter. Bowel regimen with Colace, senna and lactulose. Continue??escitalopram Continue multivitamins and supplements ?? VTE Prophylaxis:??Bilateral compression boots. ?VTE Prophylaxis Assessment:??VTE Prophylaxis Ordered ?? Cirrhosis (K74.60):??Patient with history of??autoimmune hepatitis. Continue Protonix??40 mg p.o. daily??and lactulose??30 g p.o. 3 times a day. ?? PT evaluation in the morning. ?? Discharge Planning:? Code Status:??She is a DO NOT RESUSCITATE. ?Order Code Status:??Code Status Ordered ? I spent a total of 75 minutes today reviewing the chart/medical records, speaking with the patient,formulating and discussing the treatment plan, and documenting the findings and encounter. Histories Allergies Allergies ?(Active and Proposed Allergies Only) NKA? (Severity: Unknown severity, Onset: Unknown) ? Past Medical History/Problem List Active Problems(15) Arthritis Asthma Brain TIA CAD (coronary artery disease) Chronic anemia Cirrhosis CKD (chronic kidney disease) Dementia Depression DM2 (diabetes mellitus, type 2) HTN (hypertension) Hyperkalemia Hyperlipidemia Insomnia Obese class I ? Past Surgical History Colonoscopy, flexible; with removal of tumor(s), polyp(s), or other lesion(s) by snare technique: 10/05/19 EGD - Esophagogastroduodenoscopy: 10/04/19 Cholecystectomy ? Social History Alcohol Details:??Use: Never. Details:??Use: Never. 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 Substance Abuse Details:??Use: Never. Details:??Use: Never. Tobacco Details:??Use: Never (less than 100 in lifetime). Details:??Use: Never (less than 100 in lifetime). Electronic Cigarette/Vaping Details:??Electronic Cigarette Use: Never. ? Family History Mother: Alzheimer disease; CAD - Coronary artery disease (cabg); Cancer of breast; Cancer of colon;Diabetes mellitus type II ? Medications Home Medications Acetaminophen (acetaminophen 500 mg oral tablet)?2?tab(s)?1,000?Milligram?By Mouth?Daily?as needed?for fever Amlodipine (Norvasc 2.5 mg oral tablet)?2.5?Milligram?1?tablet?By Mouth?Daily?Please conctact office for apt. for further refills [phone] Aspirin (aspirin 81 mg oral delayed release [...] 3 units 180 - 209 ?? 4 [id number] - 239 ?? 6 [id number] - 269 ?? 7 units 270 - 299 ?? 8 unitsCall MD if greater than 300 Lactulose (lactulose 10 gm/15 ml oral syrup)?45?Milliliter?30?gram?By Mouth?3 times a day?Titrate up to 2-3 bowel movements per day or until she has a bowel movement. linaclotide (Linzess 145 mcg oral capsule)?See Instructions?TOME [facility]AY [facility] [place] Ondansetron (ondansetron 4 mg oral tablet, disintegrating)?1?tab(s)?4?Milligram?By [...] capsule)?300?Milligram?1?capsule?By Mouth?3 times a day?for 30?Days ? Results Recent Labs BLOOD COUNT & DIFF WBC 7.9 k/mm3 ()?? 10/21/2023 13:09 RBC 3.92 m/mm3 (Low)?? 10/21/2023 13:09 Hgb 11.1 Gm/dL (Low)?? 10/21/2023 13:09 Hct 35.5 % (Low)?? 10/21/2023 13:09 MCV 90.6 femtoliters ()?? 10/21/2023 13:09 MCH 28.3 pg ()?? 10/21/2023 13:09 MCHC 31.3 g/dL (Low)?? 10/21/2023 13:09 Platelet Count 300 k/mm3 ()?? 10/21/2023 13:09 RDW-SD 47.8 femtoliters (High)?? 10/21/2023 13:09 MPV 11.1 femtoliters ()?? 10/21/2023 13:09 Nucleated RBC (Automated) 0.0 #/100 WBC'S ()?? 10/21/2023 13:09 Abs. NRBC 0.0 k/mm3 ()?? 10/21/2023 13:09 Abs. Neut 4.9 k/mm3 ()?? 10/21/2023 13:09 Abs. Lymph 2.1 k/mm3 ()?? 10/21/2023 13:09 Abs. Norman 0.5 k/mm3 ()?? 10/21/2023 13:09 Abs. Eo 0.2 k/mm3 ()?? 10/21/2023 13:09 Abs. Baso 0.0 k/mm3 ()?? 10/21/2023 13:09 Neut % 62.6 % ()?? 10/21/2023 13:09 Lymph % 27.2 % ()?? 10/21/2023 13:09 Norman % 6.5 % ()?? 10/21/2023 13:09 Eos % 3.0 % ()?? 10/21/2023 13:09 Baso % 0.4 % ()?? 10/21/2023 13:09 Imm Gran 0.3 % ()?? 10/21/2023 13:09 Abs. Imm Gran 0.0 k/mm3 ()?? 10/21/2023 13:09 ?? CARDIAC High Sensitivity Troponin (HSTnT) 27 ng/L (High)?? 10/21/2023 13:09 ?? CHEM GENERAL Sodium 136 mmol/L ()?? 10/21/2023 13:09 Potassium 5.5 mmol/L (High)?? 10/21/2023 13:09 Chloride 104 mmol/L ()?? 10/21/2023 13:09 Bicarbonate Level 24 mmol/L ()?? 10/21/2023 13:09 Anion Gap 8 ()?? 10/21/2023 13:09 Glucose Level 199 mg/dL (High)?? 10/21/2023 13:09 BUN 51 mg/dL (High)?? 10/21/2023 13:09 Creatinine-Blood 2.08 mg/dL (High)?? 10/21/2023 13:09 Estimated GFR Creatinine 25 ML/MIN/1.73 M2 ()?? 10/21/2023 13:09 Calcium 9.2 mg/dL ()?? 10/21/2023 13:09 Protein, Total 6.7 Gm/dL ()?? 10/21/2023 13:09 Albumin 3.9 Gm/dL ()?? 10/21/2023 13:09 AG Ratio 1.4 ()?? 10/21/2023 13:09 Alkaline Phosphatase 301 units/L (High)?? 10/21/2023 13:09 AST (SGOT) 33 units/L (High)?? 10/21/2023 13:09 ALT (SGPT) 19 units/L ()?? 10/21/2023 13:09 Bilirubin, Total 0.2 mg/dL ()?? 10/21/2023 13:09 Lactate 0.8 mmol/L ()?? 10/21/2023 13:09 ?? MISC. CHEMISTRY Ammonia, Venous 19 ??mole/L ()?? 10/21/2023 13:09 ?? UA/URINALYSIS Appear/Color, Urine LIGHT YELLOW ()?? 10/21/2023 14:36 Specific [place], Urine 1.018 ()?? 10/21/2023 14:36 pH, Urine 6.5 ()?? 10/21/2023 14:36 Albumin, Urine 2+ (Abnormal)?? 10/21/2023 14:36 Glucose, Urine NEGATIVE ()?? 10/21/2023 14:36 Ketones, Urine NEGATIVE ()?? 10/21/2023 14:36 Bilirubin, Urine NEGATIVE ()?? 10/21/2023 14:36 Hemoglobin, Urine NEGATIVE ()?? 10/21/2023 14:36 Nitrite, Urine NEGATIVE ()?? 10/21/2023 14:36 Leukocyte, Urine NEGATIVE ()?? 10/21/2023 14:36 Urobilinogen NORMAL mg/dL ()?? 10/21/2023 14:36 WBC's, Urine 1 /HPF ()?? 10/21/2023 14:36 RBC's, Urine <1 /HPF ()?? 10/21/2023 14:36 Mucus SLIGHT /LPF ()?? 10/21/2023 14:36 ?? URINE OTHER Est Creatinine Clearance 17.77 mL/min ()?? 10/21/2023 14:16 ?? VIROLOGY COVID-19 by RT-PCR NEGATIVE ()?? 10/21/2023 13:10 ? Image ?CT Abd/Pelvis W/ IV Contrast Only??10/21/2023 13:50 by Sabrina Fry ?IMPRESSION: No acute intra-abdominal pathology is identified. Cirrhotic liver withoutascites or focal mass. No evidence for diverticulosis or diverticulitis. Mild constipation. Other nonacute findings as above. ?XR Chest 2 Views Frontal and Lat??10/21/2023 14:55 by Matt Moon ?IMPRESSION: Low lung volumes with mild basilar atelectasis. No acute abnormality. ?? * Galo FRANKLIN, Sal Kearns: PERFORM Event Display: History and Physical Hospital Authored Date: Diabetes type 2.?? Patient requiring insulin for control. ??Continue Lantus 15 units subcu daily and insulin sliding scale. EKG study * Event Display: EKG Authored Date: * Event Display: ECG 12-Lead Authored Date: Please click on pdf link to open report * Event Display: ECG 12-Lead Authored Date: Ventricular Rate: 71 BPM Atrial Rate: 71 BPM P-R Interval: 132 ms QRS Duration: 82 ms Q-T Interval: 424 ms QTC Calculation(Bazett): 460 ms P Java: 39 degrees R Java: 10 degrees T Java: 58 degrees Normal sinus rhythm Normal ECG When compared with ECG of 21-OCT-2023 12:33, No significant change was found Confirmed by SIRIA CRANE ([id number]) on 10/23/2023 4:24:02 PM [place]: SIRIA CRANE * Event Display: EKG Authored Date: * Event Display: ECG 12-Lead Authored Date: Please click on pdf link to open report * Event Display: ECG 12-Lead Authored Date: Ventricular Rate: 52 BPM Atrial Rate: 52 BPM P-R Interval: 132 ms QRS Duration: 82 ms Q-T Interval: 478 ms QTC Calculation(Bazett): 444 ms P Java: 15 degrees R Java: 3 degrees T Java: 81 degrees Sinus bradycardia Minimal voltage criteria for LVH, may be normal variant ( R in aVL ) Borderline ECG When compared with ECG of 07-SEP-2023 23:52, No significant change was found Confirmed by CHEYENNE FRANKLIN [facility] ([id number]) on 10/21/2023 9:05:28 PM [place]: CHEYENNE FRANKLIN,[facility] Progress note * Chucho Carroll MD: PERFORM Event Display: [facility] Authored Date: Patient: ??GILBERT, GLADIS ? Age:??72 Years?Sex:??Female?:??1950?? Attending:??Jared FRANKLIN, Robert Admission Date: 10/21/2023 ?? Subjective Patient seen and examined, events notes. ? Objective Vital Signs (last 24 hrs) ?Last Charted Heart Rate Peripheral?66 bpm ??(OCT 25 08:09) Resp Rate?16 br/min ??(OCT 25 08:09) SBP?H??171mm Hg ??(OCT 25 08:47) DBP?80 mm Hg ??(OCT 25 08:47) SpO2?95 % ??(OCT 25 08:09) Height?153 cm ??(OCT 25 08:09) Intake?? Output?? Oral Fluids: 60 mL (00:00) Urine Count: 1 (03:00) ?? Diaper Count: 1 (20:48) ?? Intake/Output? 10/20 17:13 10/25 07:00 10/24 07:00 10/23 07:00 10/22 07:00 ?? 10/25 16:18 10/25 16:18 10/25 06:59 10/24 06:59 10/23 06:59 Intake ? 5481.2 ?0 ?990 ?480 ? 1680 Output ? 2200 ?0 ? 1200 ? 1000 ?0 Net Total ? 3281.2 ?0 ? -210 ? -520 ? 1680 ? Urine Count ? 15 ?0 ?3 ?0 ?8 Diaper Count ?3 ?0 ?1 ?2 ?0 ? Physical Exam General: NAD HEENT: NCAT, MMM Neck: no JVD, neck supple Cardio: normal S1 snd S2, no MRG, RRR Resp: CTAB Abdo:??NT, ND Extremities: No peripheral edema Skin: No rashes or other abnormalities Neuro: Grossly intact ?? CHEM GENERAL Sodium 140 mmol/L ()?? 10/26/2023 06:34 Potassium 4.6 mmol/L ()?? 10/26/2023 06:34 Chloride 107 mmol/L ()?? 10/26/2023 06:34 Bicarbonate Level 21 mmol/L (Low)?? 10/26/2023 06:34 Anion Gap 12 ()?? 10/26/2023 06:34 Glucose Level 88 mg/dL ()?? 10/26/2023 06:34 Glucose, POC 102 mg/dL (High)?? 10/26/2023 07:59 BUN 39 mg/dL (High)?? 10/26/2023 06:34 Creatinine-Blood 1.95 mg/dL (High)?? 10/26/2023 06:34 Estimated GFR Creatinine 27 ML/MIN/1.73 M2 ()?? 10/26/2023 06:34 Calcium 9.3 mg/dL ()?? 10/26/2023 06:34 ?? URINE OTHER Est Creatinine Clearance 18.96 mL/min ()?? 10/26/2023 07:26 ?? VIROLOGY COVID-19 PCR Specimen Source NASAL ()?? 10/26/2023 06:30 COVID-19 PCR Result NEGATIVE ()?? 10/26/2023 06:30 ?? No qualifying data available ? 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 She presented to 10/20 with multiple vague complaints including generalized weakness and??occasional nausea, found to have mild SAM for which we are following. ?? #Contrast-induced SAM #Chronic kidney disease stage IIIb,??proteinuric Baseline creatinine of 1.6,??was 2.0??at presentation and now stabilized around 1.9. It seems she was hypovolemic??at presentation and she has now been adequately??resuscitated??with over??8 liters of fluids. Urinary sodium and supports of adequate??perfusion. She does have multiple??risk factors for??contrast-induced SAM including??elderly age, CKD,??diabetes on insulin, and??hypovolemia at time of??contrast use. At this time??she does not need??much further intervention,??creatinine likely to improve over??thecoming??3 to 4 days. Will have her get labs in the next couple of days outpatient and get her follow up in our office with one of our providers. ?? Chucho Carroll MD. Medical Esthetician Systems Administration Analyst [facility] * Sierra Gray RN: PERFORM, SIGN, VERIFY Event Display: Progress Note Hospital Authored Date: [id number] Patient: GLADIS GILBERT Age: 72 years Sex: Female : 1950 Associated Diagnoses: None Author: Sierra Gray RN Findings Problem Related to Alteration in Genitourinary : Alteration in Genitourinary Function/new 10/26/2023 10:00 EDT Alteration in Status Related to Other: SAM Goals & Outcomes, Genitourinary Pt will achieve normal/improved fluid balance, Pt will maintainadequate GI function appropriate for pt, Pt will maintain adequate function appropriate for pt, Pt will maintain normal fluid balance, Pt will resume normal pattern of elimination, Pt will resume/maintain mental status, Pt will state psychosocial implications of renal failure Interventions, Assess/monitor/maintain Genitourinary status, Assist & encourage pt with meticulous yvette care, Encourage PO fluid intake as allowed by diet BH Goals/Interventions, Genitourinary Yes Genitourinary, Problem Start 10/22/2023 9:00 Reviewed Plan with, Genitourinary Patient Patient Progression, Genitourinary Patient progressing according to plan Genitourinary, Problem Ongoing Yes . Evaluation Vital signs stable/afebrile/alert & oriented x2. Denies pain on assessment.Lung sounds diminished bilaterally, denies shortness of breath/cough,98% on room air. +bs, abd soft non-tender, denies nausea or vomiting- tolerating regular diet. Pills whole with thin liquids. Skin c/d/i.Mixed incontinence. 1 assist with ambulation & transfer. Purposeful hourly rounding completed & safety checks maintained. DC home today with VNA. Daughter transporting home.. Discharge Information Case Management Discharge Plan : Case Management Discharge Plan Data 10/26/2023 10:16 EDT Discharge Level of Care at Discharge Homehealth/VNA Discharge VNA/Hospice/Home Care [facility] [phone] Service Categories #1 Physical Therapy, [facility] Service Comments #1 The agency will call you to arrange visit times, please call agency with questions Rehabilitation Discharge : Rehab Discharge Index 10/22/2023 14:02 EDT Comments on treatment indicated 72 y/o mexican speaking female hx of dementia admitted overnight for SAM and hyperkalemia. See for transfers, gait, therex and balance. Rec rehab. Walker: distance 10-20 Distance pt will ambulate ~50' with RW and good balance Full chart review completed Yes Plan of care PT Gait training, Transfer training, Therapeutic exercise, Functional Activities, Balance training * Javier ABEL, Charity: PERFORM, SIGN, VERIFY Event Display: Progress Note Hospital Authored Date: Patient: GLADIS GILBERT Age: 72 years Sex: Female : 1950 Associated Diagnoses: None Author: Charity Herrera RN Findings Problem Related to Alteration in Genitourinary : Alteration in Genitourinary Function/new 10/26/2023 0:00 EDT Alteration in Status Related to Other: SAM Goals & Outcomes, Genitourinary Pt will achieve normal/improved fluid balance, Pt will maintainadequate GI function appropriate for pt, Pt will maintain adequate function appropriate for pt, Pt will maintain normal fluid balance, Pt will resume normal pattern of elimination, Pt will resume/maintain mental status, Pt will state psychosocial implications of renal failure Interventions, Assess/monitor/maintain Genitourinary status, Assist & encourage pt with meticulous yvette care, Encourage PO fluid intake as allowed by diet BH Goals/Interventions, Genitourinary Yes Genitourinary, Problem Start 10/22/2023 9:00 Reviewed Plan with, Genitourinary Patient Patient Progression, Genitourinary Patient progressing according to plan Genitourinary, Problem Ongoing Yes . Evaluation Patient has ambulated to bathroom with assist and walker twice so far tonight. Is impulsive. Bed alarm in use for safety. Incontinent with urgency, wearing adult attend. Declined offer of primafit for more accurate urine monitoring. Took scheduled meds during the evening but declined ordered lactulose. Stated that her bowels had moved earlier in the day-last documented BM is for 10/23. Abdomen is soft with good bowel sounds. Has denied discomfort on questioning so far this shift. . Consult note * Fausto Leiva MD: PERFORM, MODIFY Event Display: Consultation Note Authored Date: Patient: ??GLADIS GILBERT ? Age:??72 Years?Sex:??Female?:??1950?? Attending Physician:??Jared FRANKLIN, Robert?.Admission Date: 10/21/2023? Reason for Consult/Chief Complaint: SAM on CKD ?? 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 She presented to 10/20 with multiple complaints including headache, UTI , generalized weakness, occasional nausea.?? She denies any chest pain, shortness of breath, vomiting, dysuria, hematuria, or diarrhea.?? Since arrival, she has been vitally stable however hypertensive 150s to 170s/70s.?? On room air.?? Labs were significant for chronic stable anemia 10.3 with normal platelets, initial hyperkalemia 5.5 now resolved, and a creatinine of 2.0 currently improving.?? UA showing chronic 2+ albumin otherwise extremely bland, no eosinophils, urine sodium 77.?? Her medications have included amlodipine 7.5 mg, PPI, and she has received a total of 8 L of IV fluids running continuously over the past 4 days.?? She also received IV contrast on 10/20. She currently feels well, denies shortness of??breath or edema. ?? Review of systems: As above Past medical history:??As above Home medications:??Amlodipine 2.5 mg, aspirin, cetirizine, vitamin D, escitalopram, iron, insulin, lactulose, linaclotide, Zofran, pantoprazole, rifaximin, trazodone, Ursodiol Family history: Mother with diabetes, CAD, breast cancer, colon cancer, and Alzheimer's. Social history:??Never smoked cigarettes, does not drink alcohol, never use illicit drugs. ?? Objective:?? Has remained afebrile, hypertensive 150s to 170s/60s, on room air.?? In the last 24 hours, she is net -520 cc, UOP 1 L.?? No diuretics, on NaCl 75 cc/h until this morning. received a total of 8 L of IV fluids over the past 4 days Patient is lying down flat in no acute distress, obese, bilateral equal air entry with no crackles or wheeze. ?? No JVD appreciated on exam. ??No lower extremity edema, alert and oriented. ?? No dialysis access. ?? Laboratory Workup: Chronic stable anemia last 10.3 with normal WBCs and platelets, initial hyperkalemia 5.5 resolved currently sodium 143, potassium 4.9, bicarbonate 23 with a gap of 10, and creatinine improving down to 1.9 from 2.0 on presentation. ?? Imaging Findings: CT abdomen/pelvis with IV contrast on 10/20: No acute intra-abdominal pathology, cirrhotic liver without ascites, nonacute. CXR 10/20: Low lung volumes with bibasilar atelectasis. ?? 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 She presented to 10/20 with multiple vague complaints including generalized weakness and??occasional nausea, found to have mild SAM for which we are following. ?? #Contrast-induced SAM #Chronic kidney disease stage IIIb,??proteinuric Baseline creatinine of 1.6,??was 2.0??at presentation and now stabilized around 1.9. It seems she was hypovolemic??at presentation and she has now been adequately??resuscitated??with over??8 liters of fluids. Urinary sodium and supports of adequate??perfusion. She does have multiple??risk factors for??contrast-induced SAM including??elderly age, CKD,??diabetes on insulin, and??hypovolemia at time of??contrast use. At this time??she does not need??much further intervention,??creatinine likely to improve over??thecoming??3 to 4 days. ?? Fausto Leiva MD PGY4 - Nephrology Fellow * Chucho Carroll MD: PERFORM Event Display: Consultation Note Authored Date: RENAL ATTENDING ADDENDUM:??I have seen and evaluated this patient. I have discussed the case and its management with the resident/team as documented in the resident/team note on the day of service. The details of the case including pertinent labs and clinical findings were confirmed by me. The planwas formulated with the student/resident/fellow/PA/CULTURED [employer] MAKER as outlined below.??Creatinine does appear donny a little above baseline with mild SAM. Agree that ADRIENNE could be a possibility here as she was theright set up for it. For now will simply continue to monitor. Note * Sierra Gray RN: PERFORM Event Display: Discharge/Transfer Note Hospital Authored Date: [id number] Nursing Discharge Note Entered On: 10/26/2023 13:37 EDT Performed On: 10/26/2023 13:37 EDT by Sierra rGay RN Nursing Discharge Note 2 Discharge Time : 10/26/2023 13:37 EDT Discharge Level of Care at Discharge : Homehealth/VNA Discharge VNA/Hospice/Home Care(v001) : [facility] [phone] Patient Left Unit Via : Wheelchair Patient Accompanied Off Unit with : Responsible adult DC Instructions Provided & Signed by Pt : Yes Patient Understands D/C Instructions : Yes Patient Instructions Discharge Signed : Yes Did Pt have Specialty Bed or Wound Vac : No Sierra Gray RN - 10/26/2023 13:37 EDT * Jared FRANKLIN, Noor: PERFORM Event Display: Discharge/Transfer Note Hospital Authored Date: [id number] Patient: ??OFELIA, GLADIS ? Age:??72 Years?Sex:??Female?:??1950?? Patient Information Discharge Location: [facility] Primary Care Physician: Kathy Buck MD Admit Date/Time: 10/21/23 17:13 Discharge Disposition Discharge Disposition: Home with Home Health Discharge Diagnosis SAM (acute kidney injury) (N17.9) Dehydration (E86.0) AMS (altered mental status) (R41.82) Cirrhosis (K74.60) Chronic anemia (D64.9) Depression (F32.A) Hypertension (I10) _ Discharge Medications Acetaminophen (acetaminophen 500 mg oral tablet)?2?tab(s)?1,000?Milligram?By Mouth?Daily?as needed?for fever Amlodipine (Norvasc 5 mg oral tablet)?5?Milligram?1?tablet?By Mouth?Daily?for 30?Days Aspirin (aspirin 81 mg oral delayed release [...] 3 units 180 - 209 ?? 4 [id number] - 239 ?? 6 [id number] - 269 ?? 7 units 270 - 299 ?? 8 unitsCall MD if greater than 300 Lactulose (lactulose 10 gm/15 ml oral syrup)?45?Milliliter?30?gram?By Mouth?3 times a day?Titrate up to 2-3 bowel movements per day or until she has a bowel movement. linaclotide (Linzess 145 mcg oral capsule)?See Instructions?TOME ZAY CAPSULA HAL NICK MCMULLEN Ondansetron (ondansetron 4 mg oral tablet, disintegrating)?1?tab(s)?4?Milligram?By Mouth?Every 8 hours?as needed?Nausea & Vomiting Oxycodone (oxyCODONE 5 mg oral tablet)?2.5?Milligram?By Mouth?Every 6 hours?as needed?for 1?Days?Pain , Severe Pantoprazole (Protonix 40 mg oral delayed release tablet)?1?tab(s)?40?Milligram?By Mouth?Daily Polyethylene Glycol 3350 (MiraLax oral powder for reconstitution)?17?gram?By Mouth?2 times a day before breakfast and dinne?dissolve in water before taking Rifaximin (rifAXIMin 550 mg oral tablet)?1?tab(s)?550?Milligram?By Mouth?2 times a day Trazodone (traZODone 50 mg oral tablet)?50?Milligram?1?tablet?By Mouth?Daily at supper Ursodiol (ursodiol 300 mg oral capsule)?300?Milligram?1?capsule?By Mouth?3 times a day?for 30?Days ? Medications Started oxycodone 2.5 mg PRN- 1 day supply Medications Discontinued none Doses Changed increased amlodipine to 5 mg from 2.5 Allergies Allergies ?(Active and Proposed Allergies Only) NKA? (Severity: Unknown severity, Onset: Unknown) ? PCP Follow-Up/Heads-Up Blood pressure meds. ?? basic metabolic panel to be done on 10/28 to follow up on creatinine levels. 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 She presented to 10/20 with multiple vague complaints including generalized weakness and occasional nausea, found to have mild SAM ?? SAM (acute kidney injury) (N17.9) on CKD stage 3: Patient developed SAM on chronic kidney injury. baseline creatinine 1.5-1.6. - came in with 2.0. received contrast on admit. adequately given IVF - now Cr hovering - stabilizedat 1.9. - no signs of volume overload or hypovolemia. - renal consulted - agree with DC plan . they will schedule out patient follow up. - blood work : basic metabolic pannel to be done on 10/28 to follow up on creatinine levels. ? Hyperkalemia: Resolved ??Hypertension (I10): stable Depression (F32.A): Continue escitalopram 5 mg p.o. once a day ??Chronic anemia (D64.9): Continue ferrous fumarate ??Dementia (F03.90): Currently AOA x 1-2- baseline . Cirrhosis (K74.60): Patient with history of autoimmune hepatitis. Continue Protonix 40 mg p.o. daily and lactulose 30 g p.o. 3 times a day. ? Objective Vital Signs?? Temperature: 98.3 DegF (10/26/23 08:09:00) Temperature Route: Oral (10/26/23 08:09:00) Pulse Rate: 66 bpm (10/26/23 08:09:00) Respiratory Rate: 16 br/min (10/26/23 08:09:00) Systolic Blood Pressure:??171 mm Hg??High (10/26/23 08:47:00) Diastolic Blood Pressure: 80 mm Hg (10/26/23 08:47:00) Blood pressure sites: Arm, right (10/26/23 08:09:00) Mean Arterial Pressure: 107 mm Hg (10/26/23 08:09:00) Pulse Pressure: 97 mm Hg (10/26/23 08:09:00) Oxygen Saturation: 95 % (10/26/23 08:09:00) Mode of Delivery (Oxygen): Room air (10/26/23 08:09:00) Early Warning Score: 2 (10/26/23 08:49:27) ? . Physical Exam ? Respiratory: Clear to auscultation. No wheezing, rales or rhonchi. ?Cardiovascular: S1 S2 regular. No murmurs, rubs or gallops. ?Gastrointestinal: Obese, abdomen soft, non-tender, non-distended.?Neurologic: Cranial nerves II-XII grossly intact. No focal neurological deficits. ?? Pending Results No Pending Results Follow-Up Appointments Added Follow Up ?Time Frame ?Comments Heber FRANKLIN, Mehrunissa?1 to 2 weeks Patient Instructions ?? SAM (acute kidney injury) (N17.9) on CKD stage 3: Patient developed SAM on chronic kidney injury. baseline creatinine 1.5-1.6. - came in with 2.0. received contrast on admit. adequately given IVF - now Cr hovering - stabilizedat 1.9. - no signs of volume overload or hypovolemia. - renal consulted - agree with Discharge??plan . they will schedule out patient follow up. - blood work : basic metabolic panel to be done on 10/28 to follow up on creatinine levels. ? Hyperkalemia: Resolved Hypertension (I10): increased??amlodipine to 5 mg.??stable Depression (F32.A): Continue escitalopram 5 mg p.o. once a day ??Chronic anemia (D64.9): Continue ferrous fumarate ??Dementia (F03.90): Currently AOA x 1-2- baseline . Cirrhosis (K74.60): Patient with history of autoimmune hepatitis.cont home medications.? Post Discharge Care Discharge ?10/26/23 9:47:00 EDT Discharge Prescriptions ?ePrescribed, 10/26/23 9:47:00 EDT Home Health Face to Face *Denotes mandatory de la fuente ?? *I certify that this patient is under my care and that I or an allowed non- physician working with me had a face to face encounter with the patient on this date:??10/26/2023 10:24 ?? *The encounter with the patient was in whole, or in part, for the following medical condition, which is the primary diagnosis(es) for home health care:??SAM (acute kidney injury) (N17.9) Dehydration (E86.0) AMS (altered mental status) (R41.82) Cirrhosis (K74.60) Chronic anemia (D64.9) Depression (F32.A) Hypertension (I10) ?? *Select the indications for the discipline/s that are being arranged for this patient. Nursing (select all that apply): [_] None [_x] Medication management (reconciliation, teaching)?? [_x] Chronic disease management?? [_] Wound care and treatment?? [_] Home safety evaluation [_] Administer SQ/IM/IV medications?? [_] Cath care?? [_] Drain care?? [_] Trach or GT care?? Other _ ? basic metabolic panel to be done on 10/28 to follow up on creatinine levels. ?? Occupation Therapy (select all that apply): [_] None [_] ADL Management [_] Fall prevention training [_] Energy conservation [_] Cognitive training Other _ Physical Therapy (select all that apply): [_] None [x_] Functional mobility training [xx_] Home exercise program to strengthen [x_] Increase ROM?? [_] Falls prevention training [_] Home maintenance program for chronic disease Other _ Speech Therapy (select all that apply): [_] None [_] Swallow evaluation and training [_] Speech and language training [_] Cognitive training to process, organize, and/or recall information Other _ ? *Homebound due to (select all that apply): [_] Inability to leave home without assistance/supervision [_] Inability to ambulate without assistance [_] Pain [_x] Decreased strength and endurance [_x] Unsteady gait [_] Severe SOB and fatigue [_] Impaired transfers [_] Inability to negotiate stairs [_] Limited weight bearing [_] Mental status change? *Physician Signature: _ robert coleman ?? *By signing this, I certify that I have personally evaluated the patient and agree with the findings and recommendations as documented above. ? Results Discharge Labs BLOOD COUNT & DIFF WBC 6.3 k/mm3 ()?? 10/22/2023 07:02 RBC 3.56 m/mm3 (Low)?? 10/22/2023 07:02 Hgb 10.3 Gm/dL (Low)?? 10/22/2023 07:02 Hct 33.0 % (Low)?? 10/22/2023 07:02 MCV 92.7 femtoliters ()?? 10/22/2023 07:02 MCH 28.9 pg ()?? 10/22/2023 07:02 MCHC 31.2 g/dL (Low)?? 10/22/2023 07:02 Platelet Count 197 k/mm3 ()?? 10/22/2023 07:02 RDW-SD 48.8 femtoliters (High)?? 10/22/2023 07:02 MPV 10.9 femtoliters ()?? 10/22/2023 07:02 Nucleated RBC (Automated) 0.0 #/100 WBC'S ()?? 10/22/2023 07:02 Abs. NRBC 0.0 k/mm3 ()?? 10/22/2023 07:02 Abs. Neut 4.9 k/mm3 ()?? 10/21/2023 13:09 Abs. Lymph 2.1 k/mm3 ()?? 10/21/2023 13:09 Abs. Norman 0.5 k/mm3 ()?? 10/21/2023 13:09 Abs. Eo 0.2 k/mm3 ()?? 10/21/2023 13:09 Abs. Baso 0.0 k/mm3 ()?? 10/21/2023 13:09 Neut % 62.6 % ()?? 10/21/2023 13:09 Lymph % 27.2 % ()?? 10/21/2023 13:09 Norman % 6.5 % ()?? 10/21/2023 13:09 Eos % 3.0 % ()?? 10/21/2023 13:09 Baso % 0.4 % ()?? 10/21/2023 13:09 Imm Gran 0.3 % ()?? 10/21/2023 13:09 Abs. Imm Gran 0.0 k/mm3 ()?? 10/21/2023 13:09 ?? CARDIAC High Sensitivity Troponin (HSTnT) 27 ng/L (High)?? 10/21/2023 13:09 ? CHEM GENERAL Sodium 140 mmol/L ()?? 10/26/2023 06:34 Potassium 4.6 mmol/L ()?? 10/26/2023 06:34 Chloride 107 mmol/L ()?? 10/26/2023 06:34 Bicarbonate Level 21 mmol/L (Low)?? 10/26/2023 06:34 Anion Gap 12 ()?? 10/26/2023 06:34 Glucose Level 88 mg/dL ()?? 10/26/2023 06:34 Glucose, POC 102 mg/dL (High)?? 10/26/2023 07:59 BUN 39 mg/dL (High)?? 10/26/2023 06:34 Creatinine-Blood 1.95 mg/dL (High)?? 10/26/2023 06:34 Estimated GFR Creatinine 27 ML/MIN/1.73 M2 ()?? 10/26/2023 06:34 Calcium 9.3 mg/dL ()?? 10/26/2023 06:34 Magnesium 2.1 mg/dL ()?? 10/22/2023 07:03 Protein, Total 6.7 Gm/dL ()?? 10/21/2023 13:09 Albumin 3.9 Gm/dL ()?? 10/21/2023 13:09 AG Ratio 1.4 ()?? 10/21/2023 13:09 Alkaline Phosphatase 301 units/L (High)?? 10/21/2023 13:09 AST (SGOT) 33 units/L (High)?? 10/21/2023 13:09 ALT (SGPT) 19 units/L ()?? 10/21/2023 13:09 Bilirubin, Total 0.2 mg/dL ()?? 10/21/2023 13:09 Lactate 0.8 mmol/L ()?? 10/21/2023 13:09 ?? HEME OTHER Hold Lavender Top SPECIMEN DISCARDED AFTER 24 HOURS. ()?? 10/26/2023 06:34 Hold Blue Top SPECIMEN DISCARDED AFTER 4 HOURS. ()?? 10/21/2023 13:09 ?? MISC. CHEMISTRY Ammonia, Venous 19 ??mole/L ()?? 10/21/2023 13:09 ? UA/URINALYSIS Appear/Color, Urine LIGHT YELLOW ()?? 10/21/2023 14:36 Specific [place], Urine 1.018 ()?? 10/21/2023 14:36 pH, Urine 6.5 ()?? 10/21/2023 14:36 Albumin, Urine 2+ (Abnormal)?? 10/21/2023 14:36 Glucose, Urine NEGATIVE ()?? 10/21/2023 14:36 Ketones, Urine NEGATIVE ()?? 10/21/2023 14:36 Bilirubin, Urine NEGATIVE ()?? 10/21/2023 14:36 Hemoglobin, Urine NEGATIVE ()?? 10/21/2023 14:36 Nitrite, Urine NEGATIVE ()?? 10/21/2023 14:36 Leukocyte, Urine NEGATIVE ()?? 10/21/2023 14:36 Urobilinogen NORMAL mg/dL ()?? 10/21/2023 14:36 WBC's, Urine 1 /HPF ()?? 10/21/2023 14:36 RBC's, Urine <1 /HPF ()?? 10/21/2023 14:36 Mucus SLIGHT /LPF ()?? 10/21/2023 14:36 Hold Urine Culture Testing available 48 hours from time of collection. ()?? 10/21/2023 14:36 ? URINE OTHER Eos, Urine <2 WBC/HPF, % EOS NOT CALCULATED % ()?? 10/24/2023 08:00 Creatinine, Urine Random 27.5 mg/dL ()?? 10/24/2023 08:00 Sodium, Urine Random 77 mmol/L ()?? 10/24/2023 08:00 Chloride, Urine Random 64 mmol/L ()?? 10/24/2023 08:00 Osmolality, Urine Random 292 mOsm/kg ()?? 10/24/2023 08:00 Est Creatinine Clearance 18.96 mL/min ()?? 10/26/2023 07:26 ?? VIROLOGY COVID-19 by RT-PCR NEGATIVE ()?? 10/21/2023 13:10 COVID-19 PCR Specimen Source NASAL ()?? 10/26/2023 06:30 COVID-19 PCR Result NEGATIVE ()?? 10/26/2023 06:30 ? _55 ??minutes spent on discharge * Sierra Gray RN: PERFORM Event Display: Patient Education/Instruction Authored Date: Inpatient Adult Discharge Instructions. [address] [address] Name: GLADIS GILBERT : 1950?? Visit: 10/21/2023 17:13?? Current Date: 10/26/2023 10:32 ?? Account: [id number]?? Inpatient Adult Discharge Instructions We would like [...] and their families. Surveys are administered by [employer], [employer]. ?? If further treatment with your primary care physician or another doctor is recommended, it is important for you to keep the appointment. Call your primary care physician or return to the Emergency Department immediately if your condition worsens, fails to improve, or new symptoms develop. If you need to find a doctor, you can call [facility] [employer] for a referral at [phone] or toll free at [phone]) or log in to [email or web address] hospital[facility]ote[facility]Resp[facility].. ?? [facility], in keeping with [facility] guidance, no longer requires face masks for staff, patientsor visitors in most situations. Similiar to time spent indoors at other locations, there is the chance that you were exposed to repiratory viruses during your time with us (such as flu or COVID-19). If you develop symptoms concerning for a viral respiratory infection, please seek testing (and treatment if indicated) from your medical provider or home test kit. ?? You can view and manage your care through the patient portal or by using a health care joe of your choosing. [employer] is a website that allows you to securely view your medical information including your hospital discharge summary, office visit summaries, medications and follow-up visits. You can also request appointments, renew medications, and request access to your medical information using a health care joe of your choosing, or just ask a question. You can enroll at [email or web address] or register during your next office visit. You have been discharged from [facility], Patient Care Unit: [id number]??. If you have any questions regarding these instructions, including results of studies pending, afteryou leave, please call us and we will be happy to assist you 24/11. [facility] Your Care Team Attending Physician Jared FRANKLIN, Noor?? Consulting Providers Jared FRANKLIN, Noor?? Discharging Providers Jared FRANKLIN, Noor Reason for Your Visit pt coming from home for body aches and weakness. pt was seen at [facility] on 10/16 for the same thing. hx of dementia.?? Your Diagnosis Chronic anemia Cirrhosis Dementia Depression General medical Hypertension Tests Performed Below is a partial list of the tests performed during your hospitalization. You may have had other tests and procedures not included in this list. Please discuss all test results with your provider. Ammonia Venous Basic Metabolic Panel BUN Calcium Level CBC CBC w/ Differential Comprehensive Metabolic Panel COVID-19 (2019 Novel Coronavirus) PCR COVID-19 (Novel Coronavirus), Rapid PCR Creatinine Electrolytes Glucose Level GLUCOSE POC High??Sensitivity??Troponin T Hold Blue Top Tube HOLD LAVENDER TUBE Lactate Level Magnesium Level Urinalysis w/hold for Urine Culture Urine Chloride Urine Creatinine URINE EOS Urine Na Urine Osmolality CT Abd/Pelvis W/ IV Contrast Only CXR Portable KUB XR Chest 2 Views Frontal and Lat No tests performed during this visit.?? Primary Care Provider Kathy Buck MD? Advance Directive Health Care Proxy on File Yes - Health Care Proxy Discharge Vitals Temperature: 98.3 DegF Height: 153 cm Pulse Rate: 66 bpm Weight: 73.1 kg Respiratory Rate: 16 br/min Body Mass Index:??31.23 kg/m2??Critical Systolic Blood Pressure:??171 mm Hg??High Body surface area: 1.76 Diastolic Blood Pressure: 80 mm Hg ?? Oxygen Saturation: 95 % ?? Studies Pending All studies ordered during this hospital stay have been completed unless listed below. Please discuss all pending results with your provider listed above in these instructions. ?? No incomplete studies found?? What to do next Instructions From Your Doctor ?? SAM (acute kidney injury) (N17.9) on CKD stage 3: Patient developed SAM on chronic kidney injury. baseline creatinine 1.5-1.6. - came in with 2.0. received contrast on admit. adequately given IVF - now Cr hovering - stabilizedat 1.9. - no signs of volume overload or hypovolemia. - renal consulted - agree with Discharge??plan . they will schedule out patient follow up. - blood work : basic metabolic panel to be done on 10/28 to follow up on creatinine levels. ? Hyperkalemia: Resolved Hypertension (I10): increased??amlodipine to 5 mg.??stable Depression (F32.A): Continue escitalopram 5 mg p.o. once a day ??Chronic anemia (D64.9): Continue ferrous fumarate ??Dementia (F03.90): Currently AOA x 1-2- baseline . Cirrhosis (K74.60): Patient with history of autoimmune hepatitis.cont home medications.? Orders? 10/26/23 9:47:00 EDT?? Prescriptions??, ??10/26/23 9:47:00 EDT?? You Need to Schedule the Following Appointments Follow Up with??Heber FRANKLIN, Kathy When:??Within 1 to 2 weeks Where: [address] [place] [id number]- Discharge Medications GLADIS GILBERT :1950 Visit Date:10/21/2023 Medications: Please continue your medications until treatment is completed or stopped by your provider. Medications not listed below should be discontinued. Discuss any questions related to medications with your provider. What How Much When Instructions Next Dose New Oxycodone (oxyCODONE 5 mg oral tablet) 2.5 Milligram Oral Every 6 hours as needed for Pain , Severe Duration: 1 Days Pickup at [facility]/pharmacy #[id number] anytime as needed Changed Amlodipine (Norvasc 5 mg oral tablet) 1 tab(s) Oral Daily Duration: 30 Days Pickup at [facility]/pharmacy #[id number] 9 am 10/27/2023 Unchanged Acetaminophen (acetaminophen 500 mg oral tablet) 2 tab(s) Oral Daily as needed for for fever as needed anytime Unchanged Aspirin (aspirin 81 mg oral delayed release tablet) 1 tab(s) Oral Daily 9 am 10/27/2023 Unchanged Cetirizine (cetirizine 5 mg oral tablet) 5 Milligram Oral Daily 9 am 10/27/2023 Unchanged Cholecalciferol (Vitamin D3 2000 intl units oral tablet) 1 tab(s) Oral Daily 9 am 10/27/2023 Unchanged Escitalopram (escitalopram 5 mg oral tablet) 1 tab(s) Oral Daily 9 am 10/27/2023 Unchanged Ferrous Fumarate (ferrous fumarate 300 mg oral tablet) 1 tab(s) Oral Daily Duration: 30 Days 9 am 10/27/2023 Unchanged Fluticasone Nasal (fluticasone 50 mcg/ inh nasal spray) 1 spray(s) Nares, Both Twice a day 9pm 10/26/2023 Unchanged Glucose (Dex4 Tropical Blast 45% oral gel) 15 gram Oral Once as needed for as needed for low blood sugar as needed Unchanged Insulin Glargine (insulin glargine 100 units/ mL subcutaneous solution) 15 unit(s) Subcutaneous Injection Daily in the morning 9 am 10/27/2023 Unchanged Insulin Lispro (insulin lispro 100 units/ mL injectable solution) 2-8 units Subcutaneous Injection 3 times a day before meals 120 - 149 ?? 2 units 150 - 179 ?? 3 units 180 - 209 ?? 4 units 210 - 239 ?? 6 units 240 - 269 ?? 7 units 270 - 299 ?? 8 units Call MD if greater than 300 ?? as needed Unchanged Lactulose (lactulose 10 gm/ 15 ml oral syrup) 45 Milliliter Oral 3 times a day Titrate up to 2-3 bowel movements per day or until she has a bowel movement. ?? 3pm 10/26/23 Unchanged linaclotide (Linzess 145 mcg oral capsule) See instructions [facility] [place] [place] ?? Unchanged Ondansetron (ondansetron 4 mg oral tablet, disintegrating) 1 tab(s) Oral Every 8 hours as needed for Nausea & Vomiting as needed Unchanged Pantoprazole (Protonix 40 mg oral delayed release tablet) 1 tab(s) Oral Daily 9 am 10/27/2023 Unchanged Polyethylene Glycol 3350 (MiraLax oral powder for reconstitution) 17 gram Oral 2 times a day before breakfast and dinner dissolve in water before taking ?? 9pm 10/26/2023 Unchanged Rifaximin (rifAXIMin 550 mg oral tablet) 1 tab(s) Oral Twice a day 9pm 10/26/2023 Unchanged Trazodone (traZODone 50 mg oral tablet) 1 tab(s) Oral Daily at supper 5pm 10/26/2023 Unchanged Ursodiol (ursodiol 300 mg oral capsule) 1 capsule Oral 3 times a day Duration: 30 Days 9pm 10/26/2023 Pharmacy Information [facility]/pharmacy #[id number]: [address], [place] [id number] [phone] Prescription Given During Visit Amlodipine (Norvasc 5 mg oral tablet) - 1 tablet = 5 mg, By Mouth, Daily, # 30 tablet, 2 Refills, [facility]/pharmacy #[id number], [address] [place] [phone]?? Oxycodone (oxyCODONE 5 mg oral tablet) - 2.5 mg, By Mouth, Every 6 hours, # 5 tablet, 0 Refills, [facility]/pharmacy #[id number], [address] [place] [phone]?? Laboratory Results Below is a partial list of the most recent Laboratory test results done prior to this discharge. You may have had other tests and procedures not included in this list. Please discuss all test resultswith your provider. Est Creatinine Clearance - 18.96 mL/min (10/26/2023) Ammonia Venous (10/21/2023) ???Ammonia, Venous - 19 ??mole/L Basic Metabolic Panel (10/26/2023) ???Sodium - 140 mmol/L???Potassium - 4.6 mmol/L???Chloride - 107 mmol/L???Bicarbonate Level - 21 mmol/L???Anion Gap - 12???Glucose Level - 88 mg/dL???BUN - 39 mg/dL???Creatinine-Blood - 1.95 mg/dL???Estimated GFR Creatinine - 27 ML/MIN/1.73 M2???Calcium - 9.3 mg/dL BUN (10/22/2023) ???BUN - 48 mg/dL Calcium Level (10/22/2023) ???Calcium - 8.7 mg/dL CBC (10/22/2023) ???WBC - 6.3 k/mm3???RBC - 3.56 m/mm3???Hgb - 10.3 Gm/dL???Hct - 33.0 %???MCV - 92.7 femtoliters???MCH - 28.9 pg???MCHC - 31.2 g/dL???Platelet Count - 197 k/mm3???RDW-SD - 48.8 femtoliters???MPV - 10.9 femtoliters???Nucleated RBC (Automated) - 0.0 #/100 WBC'S???Abs. NRBC - 0.0 k/mm3 CBC w/ Differential (10/21/2023) ???WBC - 7.9 k/mm3???RBC - 3.92 m/mm3???Hgb - 11.1 Gm/dL???Hct - 35.5 %???MCV - 90.6 femtoliters???MCH - 28.3 pg???MCHC - 31.3 g/dL???Platelet Count - 300 k/mm3???RDW-SD - 47.8 femtoliters???MPV - 11.1 femtoliters???Nucleated RBC (Automated) - 0.0 #/100 WBC'S???Abs. NRBC - 0.0 k/mm3???Abs. Neut - 4.9 k/mm3???Abs. Lymph - 2.1 k/mm3???Abs. Norman - 0.5 k/mm3???Abs. Eo - 0.2 k/mm3???Abs. Baso - 0.0 k/mm3???Neut % - 62.6 %???Lymph % - 27.2 %???Norman % - 6.5 %???Eos % - 3.0 %???Baso % - 0.4 %???Imm Gran - 0.3 %???Abs. Imm Gran - 0.0 k/mm3 Comprehensive Metabolic Panel (10/21/2023) ???Sodium - 136 mmol/L???Potassium - 5.5 mmol/L???Chloride - 104 mmol/L???Bicarbonate Level - 24 mmol/L???Anion Gap - 8???Glucose Level - 199 mg/dL???BUN - 51 mg/dL???Creatinine-Blood - 2.08 mg/dL???Estimated GFR Creatinine - 25 ML/MIN/1.73 M2???Calcium - 9.2 mg/dL???Protein, Total - 6.7 Gm/dL???Albumin - 3.9 Gm/dL???AG Ratio - 1.4???Alkaline Phosphatase - 301 units/L???AST (SGOT) - 33 units/L???ALT (SGPT) - 19 units/L???Bilirubin, Total - 0.2 mg/dL COVID-19 (2019 Novel Coronavirus) PCR (10/26/2023) ???COVID-19 PCR Specimen Source - NASAL???COVID-19 PCR Result - NEGATIVE COVID-19 (Novel Coronavirus), Rapid PCR (10/21/2023) ???COVID-19 by RT-PCR - NEGATIVE Creatinine (10/22/2023) ???Creatinine-Blood - 2.05 mg/dL???Estimated GFR Creatinine - 25 ML/MIN/1.73 M2 Electrolytes (10/22/2023) ???Sodium - 140 mmol/L???Potassium - 5.0 mmol/L???Chloride - 110 mmol/L???Bicarbonate Level - 20 mmol/L???Anion Gap - 10 Glucose Level (10/22/2023) ???Glucose Level - 58 mg/dL GLUCOSE POC (10/26/2023) ???Glucose, POC - 102 mg/dL High??Sensitivity??Troponin T (10/21/2023) ???High Sensitivity Troponin (HSTnT) - 27 ng/L Hold Blue Top Tube (10/21/2023) ???Hold Blue Top - SPECIMEN DISCARDED AFTER 4 HOURS. HOLD LAVENDER TUBE (10/26/2023) ???Hold Lavender Top - SPECIMEN DISCARDED AFTER 24 HOURS. Lactate Level (10/21/2023) ???Lactate - 0.8 mmol/L Magnesium Level (10/22/2023) ???Magnesium - 2.1 mg/dL Urinalysis w/hold for Urine Culture (10/21/2023) ???Appear/Color, Urine - LIGHT YELLOW???Specific [place], Urine - 1.018???pH, Urine - 6.5???Albumin, Urine - 2+???Glucose, Urine - NEGATIVE???Ketones, Urine - NEGATIVE???Bilirubin, Urine - NEGATIVE???Hemoglobin, Urine - NEGATIVE???Nitrite, Urine - NEGATIVE???Leukocyte, Urine - NEGATIVE???Urobilinoge n - NORMAL? ?WBC's, Urine - 1 /HPF? ?RBC's, Urine - <1 /HPF? ?Mucus - SLIGHT? ?Hold Urine Culture - Testing available 48 hours from time of collection. Urine Chloride (10/24/2023) ???Chloride, Urine Random - 64 mmol/L Urine Creatinine (10/24/2023) ???Creatinine, Urine Random - 27.5 mg/dL URINE EOS (10/24/2023) ? ?Eos, Urine - <2 WBC/HPF, % EOS NOT CALCULATED Urine Na (10/24/2023) ???Sodium, Urine Random - 77 mmol/L Urine Osmolality (10/24/2023) ???Osmolality, Urine Random - 292 mOsm/kg Allergies (NKA means No Known Allergies) NKA Problems Active Problems??(15) Arthritis?? Asthma?? Brain TIA?? CAD (coronary artery disease)?? Chronic anemia?? Cirrhosis?? CKD (chronic kidney disease)?? Dementia?? Depression?? DM2 (diabetes mellitus, type 2)?? HTN (hypertension)?? Hyperkalemia?? Hyperlipidemia?? Insomnia?? Obese class I?? Education Materials Below is the list of Educational Leaflet Providered with your Discharge Instructions. Valuables and Belongings I fully understand and agree that [facility] accepts no responsibility for all my personal [...] Review of Valuable and Belonging List: With witness Date for Pt to Sign Valuables/Belongings: 10/24/23 18:24:00 ?? Other Discharge Information ? Case Management Discharge Plan?? Discharge Plan?? Discharge Agency Information?? Discharge Level of Care at Discharge: Homehealth/VNA Service Categories #1: Physical Therapy, [facility] Discharge VNA/Hospice/Home Care: [facility] [phone] Service Comments #1: The agency will call you to arrange visit times, please call agency with questions ?? Pulmonary Rehab Status?? Pulmonary Rehab Discharge Status?? Respiratory Rate: 16 br/min ? Common Emergency Awareness Tips IS [...] are strongly encouraged to quit. Please call [facility] [employer] Link at [phone] or [phone]-[facility] ([phone]) or log in to [email or web address] for referrals to smoking cessation programs. ?? 782 Suicide & Crisis Lifeline is available 24/11 if you or someone you know needs to find a reason to keep living. By calling 100 you'll be connected to a skilled, trained counselor at a crisis center in your area. INPATIENT DISCHARGE INSTRUCTIONS SIGNATURE GLADIS MELO Location:[facility] Registration Date and Time:10/21/2023 17:13 EDT Primary Care Physician: Heber FRANKLIN, Kathy, Attending Physician: Jared FRANKLIN, Noyonatan, GLADIS PRICE, have received the above patient education materials/instructions and have verbalized understanding. If ambulance or transport services are being used I further acknowledge being givena choice of service. ?? If you need to contact me, please call me at this number: . Patient/Spread Cutter Name: Patient/Spread Cutter Signature: Relationship to Patient: Witness Name/Signature: Date: Patient Care team information Care Team Personnel Name: Aster Pena RN Position: [facility] RN Member Role: Primary Care Nurse Name: Bella Alexander RN Position: [facility] RN Member Role: Primary Care Nurse Name: Dunia Phillip RN Position: [facility] SALVADOR RN W/OE and Tasks Member Role: Primary Care Nurse Name: Lisette Trejo RN Position: [facility] RN Member Role: Primary Care Nurse Name: Jessica Canseco RN Position: [facility] RN Member Role: Primary Care Nurse Name: Shauna Le RN Position: [facility] SN RN Member Role: Primary Care Nurse Name: Erica Archer RN Position: [facility] RN Supv Member Role: Primary Care Nurse Name: Vickie Lyons Position: [facility] Outreach Member Role: Lifetime Consulting Physician Name: Alba Small RN Position: [facility] RN Member Role: Primary Care Nurse Name: Martine Carr RN Position: S RN Member Role: Primary Care Nurse Name: Indira Monsavle RN Position: [facility] RN Member Role: Primary Care Nurse Name: Chucho Carroll MD Position: [facility] Renal MD Member Role: Lifetime Consulting Physician Address: Address: [address] [place], [place] [address] [place] [address]- [place] Name: Loren Mcmanus RN Position: [facility] RN Member Role: Primary Care Nurse Name: Mp Zarco RN Position: [facility] RN Member Role: Primary Care Nurse Name: Kathy Buck MD Position: [facility] Outreach Member Role: PCP Address: Address: [address] [place] [address]- [place] Name: Blayne Hughes RN Position: [facility] RN Member Role: Primary Care Nurse Name: Meena Camacho RN Position: [facility] RN Member Role: Primary Care Nurse Name: Norma Art RN Position: [facility] RN Member Role: Primary Care Nurse Name: Mecca Boyd RN Position: [facility] RN Member Role: Primary Care Nurse Name: Katie Evans NP Position: [facility] PCO Associate Professional Member Role: Primary Care Nurse Address: Address: [address] [place] [address] - [place] [address]- [place] Name: Sierra Gray RN Position: [facility] RN Member Role: Primary Care Nurse Name: Leonor Mccormick RN Position: [facility] RN Member Role: Primary Care Nurse Name: Hortensia Garrison Position: [facility] Outreach Member Role: Lifetime Consulting Physician Name: Paige Morris RN Position: [facility] RN Member Role: Primary Care Nurse Name: Trini Starr RN Position: [facility] RN Member Role: Primary Care Nurse Name: Marcie Rhodes RN Position: [facility] RN Member Role: Primary Care Nurse Name: Susie Monson RN Position: [facility] RN Member Role: Primary Care Nurse Name: Shante Devi LPN Position: S RN Member Role: Primary Care Nurse Care Team Related Persons Name: PAIGE TALBERT Address: [place] [address] Name: CAMRON VELASQUEZ Address: [place] [address] Name: ATNIONE SETHI Address: home [address] [place] [id number]
--- OUTSIDE RECORDS SUMMARY | 2023-12-05 21:36 | XMS_ITS | Continuity of Care Document ---
Author Organization [facility] ter Address [address] [place] [address]- Care Team Providers Care Assistant Professor Of Surgery Name Role Phone Kathy Buck MD Primary Care Physician [place] [facility] [place]23 - 09/08/[address] [address]- Encounter Diagnosis Arm pain(Final) - 09/08/23 Discharge Disposition: A-D/C Home Attending Physician: Josué Mary MD Admitting Physician: Josué Mary MD Referring Physician: Not on Staff, Referring MD Allergies, Adverse Reactions, Alerts No Known Allergies Immunizations Given and Recorded Vaccine Date Status Refusal Reason SARS-CoV-2 mRNA ([id number]) vax 07/09/21 Recorded SARS-CoV-2 (COVID-19) Ad26 vaccine [...] 0 Refills, Maintenance, 10/05/19 15:29:00 EDT, Tablet, [facility]/pharmacy #[id number], 144.78, cm, 10/05/19 14:50:00 EDT, Height, 89.5, kg, 10/01/19 20:04:00 EDT,Dry Weight Start Date: 10/05/19 Stop Date: 11/04/19 Status: Ordered fluticasone 50 mcg/inh nasal spray 1 sprays, Nares, Both, 2 times a day, # 16 Gm, 0 Refills, Maintenance, 12/01/20 4:52:00 EDT, [place],Partial fill upon patient request if the prescription is for a schedule II opioid drug. Start Date: 12/01/20 Status: Ordered insulin glargine 100 units/mL subcutaneous solution = 15 units, Subcutaneous Injection, Daily in AM, # 3.6 mL, 0 Refills, Maintenance, 03/08/22 13:57:00 EDT, Injection, [facility], Partial fill upon patient request if [...] 145 mcg oral capsule See Instructions, [facility], # 30 capsule, 5 Refills, Maintenance, 08/03/22 10:00:00 EDT, [id number], 144.8, cm, 04/14/22 12:40:00 EST, Height, 67, kg, 03/04/22 21:45:00 EDT, Dry Weight Start Date: 08/03/22 Status: Ordered MiraLax oral powder for reconstitution = 17 Gm, By Mouth, 2 times a day before breakfast and dinne, dissolve in water before taking, # 527Gm, 11 Refills, Maintenance, 05/28/21 13:46:00 EST, REC Powder, [facility]/pharmacy #[id number], Partial fill upon patient request if the prescription is for a sche... Start Date: 05/28/21 Status: Ordered Norvasc 2.5 mg oral tablet 2.5 mg, 1, tablet, By Mouth, Daily, Please conctact office for apt. for further refills [id number], #30 tablet, Refills 1, Tot. Refills 1, Maintenance, 08/03/20 11:28:00 EDT, Route to Pharmacy Electronically, [facility], y convert t... Start [...] 10/20/22 9:58:00 EDT, Route to Pharmacy Electronically, [facility]/pharmacy #[id number], Partial fill upon patient request if the [...] Exam Date Time Procedure Performing Provider Status 09/07/23 10:13 PM Forearm 2 Views Right Dre Josue; Auth (Verified) Notes: (Forearm 2 Views Right) Reason For Exam: with Pain;Trauma RESULT: Forearm 2 Views Right Right forearm 2 views dated September 07, 2023. No prior studies are available. HISTORY: Pain. FINDINGS: There is generalized osteopenia. No fracture or dislocation is identified. Arterial vascular calcifications are noted. IMPRESSION: No evidence of acute osseous abnormality. Examination 90130. Thank you for allowing me to participate in the care of this patient. WSN: [id number] Ordering Physician: Halima Wilson Dictated By: Nadeem Tucker MD Dictated Date/Time: 09/07/23 10:23 p Reviewed By: Nadeem Tucker MD Signed By: Nadeem Tucker MD Signed Date/Time: 09/07/23 10:23 pm Transcribed By: KEYSHA Transcribed Date/Time: 09/07/23 10:23 pm * Exam Date Time Procedure Performing Provider Status 09/07/23 10:13 PM Forearm 2 Views Left [place] , Dre; Auth (Verified) Notes: (Forearm 2 Views Left) Reason For Exam: with Pain;Trauma RESULT: Forearm 2 Views Left Left forearm 2 views dated September 07, 2023. No prior studies are available. HISTORY: Pain. FINDINGS: This examination shows generalized osteopenia. No fracture or dislocation is identified. No radiopaque foreign body or soft tissue gas is noted. Arterial vascular calcifications are seen. IMPRESSION: No evidence of acute osseous abnormality. Examination 10569. Thank you for allowing me to participate in the care of this patient. WSN: [id number] Ordering Physician: Halima Wilson Dictated By: Nadeem Tucker MD Dictated Date/Time: 09/07/23 10:23 p Reviewed By: Nadeem Tucker MD Signed By: Nadeem Tucker MD Signed Date/Time: 09/07/23 10:23 pm Transcribed By: KEYSHA Transcribed Date/Time: 09/07/23 10:22 pm * Exam Date Time Procedure Performing Provider Status 09/07/23 9:09 PM Chest 2 Views Frontal and Lat [place] , Dre; Auth (Verified) Notes: (Chest 2 Views Frontal and Lat) Reason For Exam: Shortness of Breath RESULT: Chest 2 Views Frontal and Lat Chest 2 Views Frontal and Lat Hx of Present Illness: upper extremity pain; Reason: Shortness of Breath; Clinical Question(s): CHF COMPARISON: Multiple priors, the most recent 05/06/2023. FINDINGS: LINES AND TUBES: None. LUNGS AND PLEURA: Low lung volumes with bronchovascular crowding. No pleural effusion. No pneumothorax. HEART, MEDIASTINUM AND ANIKET: Heart is normal in size. Aorta is tortuous and partially calcified. BONES AND SOFT TISSUES: Apparent cortical irregularity at the right scapula. IMPRESSION: Apparent cortical irregularity at the scapula is most likely an artifact. Fracture cannot be completely excluded and correlation with point tenderness would be recommended. Increased bronchovascular markings, could be due to low lung volumes or represent mild pulmonary edema or viral or atypical pneumonia. I have personally reviewed the images and I agree with this report. WSN: [id number] Ordering Physician: Halima Wilson Dictated By: Erwin[Radiology] Xin FRANKLIN Dictated Date/Time: 09/07/23 9:33 pm Reviewed By: Nadeem Tucker MD Signed By: Nadeem Tucker MD Signed Date/Time: 09/07/23 9:38 pm Transcribed By: KEYSHA Transcribed Date/Time: 09/07/23 9:16 pm Vital Signs Most recent to oldest [Reference Range]: 1 2 3 Oxygen Saturation [94-100 %] 99 % (09/08/23 9:45 AM) 99 % (09/08/23 8:23 AM) 99 % (09/08/23 4:13 AM) Pulse Rate [55-90 bpm] 60 bpm (09/08/23 9:45 AM) 58 bpm (09/08/23 8:23 AM) 54 bpm *L* (09/08/23 4:13 AM) Blood Pressure [90-138/55-84 mm Hg] 160/52mm Hg *H* (09/08/23 9:45 AM) 149/50mm Hg *H* (09/08/23 8:23 AM) 171/79mm Hg *H* (09/08/23 4:13 AM) Respiratory Rate [16-30 br/min] 16 br/min (09/08/23 9:45 AM) 18 br/min (09/08/23 8:23 AM) 19 br/min (09/08/23 4:13 AM) Temperature [96.8-100.4 DegF] 98.5 DegF (09/08/23 4:13 AM) 98.5 DegF (09/08/23 2:20 AM) 97.5 DegF (09/08/23 12:58 AM) Mode of Delivery (Oxygen) Room air (09/08/23 9:45 AM) Room air (09/08/23 8:23 AM) Room air (09/08/23 4:13 AM) Blood pressure sites Arm, right (09/08/23 9:45 AM) Arm, right (09/08/23 4:13 AM) Arm, right (09/08/23 2:20 AM) Temperature Route Oral (09/08/23 4:13 AM) Oral (09/08/23 2:20 AM) Oral (09/08/23 12:58 AM) Social History Social History Type Response Smoking Status Never (less than 100 in lifetime) entered on: 06/27/21 Sex Female EKG study * Event Display: ECG 12-Lead Authored Date: Please click on pdf link to open report * Event Display: ECG 12-Lead Authored Date: Ventricular Rate: 60 BPM Atrial Rate: 60 BPM P-R Interval: 138 ms QRS Duration: 84 ms Q-T Interval: 426 ms QTC Calculation(Bazett): 426 ms P Ursa: 26 degrees R Ursa: 0 degrees T Ursa: 21 degrees Normal sinus rhythm Minimal voltage criteria for LVH, may be normal variant ( R in aVL ) Borderline ECG When compared with ECG of 07-SEP-2023 17:04, Minimal criteria for Anterior infarct are no longer Present Confirmed by Blayne Beckett ([id number]) on 09/08/2023 10:17:21 AM [place]: Blayne Beckett * Event Display: ECG 12-Lead Authored Date: [id number] Please click on pdf link to open report * Event Display: ECG 12-Lead Authored Date: Ventricular Rate: 46 BPM Atrial Rate: 46 BPM P-R Interval: 136 ms QRS Duration: 80 ms Q-T Interval: 460 ms QTC Calculation(Bazett): 402 ms P Ursa: 22 degrees R Ursa: -5 degrees T Ursa: -19 degrees Sinus bradycardia Minimal voltage criteria for LVH, may be normal variant ( R in aVL ) Cannot rule out Anterior infarct , age undetermined Abnormal ECG When compared with ECG of 06-MAY-2023 08:02, Vent. rate has decreased BY 22 BPM Minimal criteria for Anterior infarct are now Present T wave inversion now evident in Inferior leads T wave amplitude has decreased in Lateral leads Confirmed by Blayne Beckett ([id number]) on 09/07/2023 5:16:00 PM [place]: Blayne Beckett Patient Care team information Care Team Personnel Name: Aster Pena RN Position: [facility] RN Member Role: Primary Care Nurse Name: Dunia Phillip RN Position: [facility] ED RN W/OE and Tasks Member Role: Primary Care Nurse Name: Lisette rTejo RN Position: [facility] RN Member Role: Primary Care Nurse Name: Jessica Canseco RN Position: [facility] RN Member Role: Primary Care Nurse Name: Shauna Le RN Position: [facility] SN RN Member Role: Primary Care Nurse Name: Erica Archer RN Position: [facility] RN Supv Member Role: Primary Care Nurse Name: Vickie Lyons Position: [facility] Outreach Member Role: Lifetime Consulting Physician Name: Martine Carr RN Position: [facility] RN Member Role: Primary Care Nurse Name: Indira Monsalve RN Position: [facility] RN Member Role: Primary Care Nurse Name: Loren Mcmanus RN Position: [facility] RN Member Role: Primary Care Nurse Name: Marisela Lobo LPN Position: [facility] RN Member Role: Primary Care Nurse Name: Mp Zarco RN Position: [facility] RN Member Role: Primary Care Nurse Name: Kathy Buck MD Position: [facility] Outreach Member Role: PCP Address: Address: [address] [place] [id number] Name: Blayne Hughes RN Position: [facility] RN Member Role: Primary Care Nurse Name: Meena Camacho RN Position: [facility] RN Member Role: Primary Care Nurse Name: Norma Art RN Position: [facility] RN Member Role: Primary Care Nurse Name: Mecca Boyd RN Position: [facility] RN Member Role: Primary Care Nurse Name: Katie Evans NP Position: [facility] PCO Associate Professional Member Role: Primary Care Nurse Address: Address: [address] [place], [place] [address] [place] [address]- Name: Leonor Mccormick RN Position: S RN Member Role: Primary Care Nurse Name: Hortensia Garrison Position: [facility] Outreach Member Role: Lifetime Consulting Physician Name: Paige Morris RN Position: S RN Member Role: Primary Care Nurse Name: Trini Starr RN Position: [facility] RN Member Role: Primary Care Nurse Name: uSsie Monson RN Position: [facility] RN Member Role: Primary Care Nurse Care Team Related Persons Name: PAIGE TALBERT Address: [place] [address] Name: CAMRON VELASQUEZ Address: [place] [address] Name: ANTIONE SETHI Address: home [facility] [address]
--- OUTSIDE RECORDS SUMMARY | 2023-12-05 21:36 | XMS_ITS | Continuity of Care Document ---
Author Organization [facility] ter Address [address] [place] [address]- Care Team Providers Care Aeronautical Engineering Teacher Name Role Phone Heber FRANKLIN, Kathy Primary Care Physician Encounter [facility] Date(s): 11/18/23 - 11/19/[address] [address]- Encounter Diagnosis Weakness generalized(Final) - 11/19/23 Discharge Disposition: A-D/C Home Attending Physician: Madison Loja MD Admitting Physician: Madison Loja MD Referring Physician: Not on Staff, Referring MD Allergies, Adverse Reactions, Alerts No Known Allergies Immunizations Given and Recorded Vaccine Date Status Refusal Reason SARS-CoV-2 mRNA ([id number]) vax 07/09/21 Recorded SARS-CoV-2 (COVID-19) Ad26 vaccine 10/15/20 Record ed Medications amLODIPine 5 mg oral tablet 5 mg, Tablet, By Mouth, 11/19/23 9:00:00 EDT Start Date: 11/19/23 Stop Date: 11/19/23 Status: Completed aspirin 81 mg oral delayed release tablet 81 mg, 1, tablet, By Mouth, Daily Start Date: 12/15/18 Status: Ordered cephalexin monohydrate 500 mg oral capsule 1 capsule = 500 mg, By Mouth, Every 12 hours, for 2 days, # 4 capsule, 0 Refills, Acute 11/21/23 13:52:00 EDT, 11/19/23 13:52:00 EDT, Capsule, [id number], Partial fill upon patient request ifthe prescription is for a schedule II opioid drug.,... Start Date: 11/19/23 Stop Date: 11/21/23 Status: Ordered Cleocin Vaginal 2% cream 1 applicator, Vaginally, Daily at bedtime, # 40 Gm, 0 Refills, Maintenance, 11/16/23 0:28:00 EDT, Cream, [facility]/pharmacy #[id number], Partial fill upon patient request if the prescription is for a schedule IIopioid drug., 1 applicator Vaginally Daily at bedti... Start Date: 11/16/23 Status: Ordered fluticasone 50 mcg/inh nasal spray 1 sprays, Nares, Both, 2 times a day, # 16 Gm, 0 Refills, Maintenance, 12/01/20 4:52:00 EDT, [place],Partial fill upon patient request if the prescription is for a schedule II opioid drug. Start Date: 12/01/20 Status: Ordered Insulin Lispro KwikPen 100 units/mL injectable solution 0 Refills, Maintenance, 11/07/23 11:47:00 EDT, Partial fill upon patient request if the prescription is for a schedule II opioid drug. Start Date: 11/07/23 Status: Ordered Januvia 50 mg oral tablet 1 tablet = 50 mg, By Mouth, Daily, # 30 tablet, 0 Refills, Maintenance, 11/09/23 12:46:00 EDT, Tablet, [facility], Partial fill upon patient request if the prescription is for a schedule II opioid drug., 153, cm, 10/30/23 7:18:00 EDT, He... Start Date: 11/09/23 Status: Ordered Lantus Inj = 15 units, Subcutaneous Injection, Daily at bedtime, 0 Refills, Maintenance, 10/30/23 13:02:00 EDT, Injection, Partial fill upon patient request if the prescription is for a schedule II opioid drug. Start Date: 10/30/23 Status: Ordered Linzess 145 mcg oral capsule 1 capsule = 145 mcg, By Mouth, Daily, # 30 capsule, 5 Refills, Maintenance, 08/03/22 10:00:00 EDT, [id number], 144.8, cm, 04/14/22 12:40:00 EST, Height, 67, kg, 03/04/22 21:45:00 EDT, Dry Weight Start Date: 08/03/22 Status: Ordered Norvasc 5 mg oral tablet 5 mg, 1, tablet, By Mouth, Daily, # 30 tablet, Refills 2, Tot. Refills 2, Maintenance, 10/26/23 10:20:00 EDT, Route to Pharmacy Electronically, [facility]/pharmacy #[id number], Partial fill upon patient request if the prescription is for a schedule II opioid drug.... Start Date: 10/26/23 Stop Date: 01/24/24 Status: Ordered Protonix 40 mg oral delayed release tablet 1 tablet = 40 mg, By Mouth, Daily, # 30 tablet, 0 Refills, Maintenance, 06/07/21 9:15:00 EST, [facility] Tablet, 152, cm, 06/07/21 7:45:00 EST, Height, 65.4, kg, 06/05/21 0:21:00 EST, Dry Weight Start Date: 06/07/21 Status: Ordered sucralfate 1 gm oral tablet 1 Gm, 1, tablet, By Mouth, 2 times a day, # 60 tablet, Refills 0, Maintenance, 10/29/23 12:37:00 EDT, Partial fill upon patient request if the prescription is for a schedule II opioid drug. Start Date: 10/29/23 Status: Ordered ursodiol 500 mg oral tablet 1 tablet = 500 mg, By Mouth, 2 times a day, # 180 tablet, 0 Refills, Maintenance, 10/29/23 12:37:00EDT, Tablet, Partial fill upon patient request if the prescription is for a schedule II opioid drug. Start Date: 10/29/23 Status: Ordered Vitamin C 500 mg oral tablet 1 tablet = 500 mg, By Mouth, Daily, # 30 tablet, 0 Refills, Maintenance, 10/29/23 12:38:00 EDT, Tablet, Partial fill upon patient request if the prescription is for a schedule II opioid drug. Start Date: 10/29/23 Status: Ordered Problem List Condition Confirmation Course [...] 3 Oxygen Saturation [94-100 %] 100 % (11/19/23 1:59 PM) 100 % (11/19/23 12:26 PM) 100 % (11/19/23 7:37 AM) Pulse Rate [55-90 bpm] 62 bpm (11/19/23 1:59 PM) 59 bpm (11/19/23 12:26 PM) 68 bpm (11/19/23 7:37 AM) Blood Pressure [90-138/55-84 mm Hg] 118/57mm Hg (11/19/23 1:59 PM) 147/46mm Hg *H* (11/19/23 12:26 PM) 115/46mm Hg (11/19/23 9:14 AM) Respiratory Rate [16-30 br/min] 18 br/min (11/19/23 1:59 PM) 17 br/min (11/19/23 12:26 PM) 22 br/min (11/19/23 7:37 AM) Temperature [96.8-100.4 DegF] 97.4 DegF (11/19/23 7:37 AM) 97.6 DegF (11/19/23 5:14 AM) 97.8 DegF (11/19/23 3:12 AM) Mode of Delivery (Oxygen) Room air (11/19/23 1:59 PM) Room air (11/19/23 12:26 PM) Room air (11/19/23 7:37 AM) Blood pressure sites Arm, left (11/19/23 12:26 PM) Arm, left (11/19/23 7:37 AM) Arm, left (11/19/23 5:14 AM) Temperature Route Oral (11/19/23 7:37 AM) Oral (11/19/23 5:14 AM) Oral (11/19/23 3:12 AM) Social History Social History Type Response Smoking Status Never (less than 100 in lifetime) entered on: 06/27/21 Sex Female EKG study * Event Display: EKG Authored Date: * Event Display: ECG 12-Lead Authored Date: Please click on pdf link to open report * Event Display: ECG 12-Lead Authored Date: Ventricular Rate: 56 BPM Atrial Rate: 56 BPM P-R Interval: 134 ms QRS Duration: 82 ms Q-T Interval: 440 ms QTC Calculation(Bazett): 424 ms P [place]: 29 degrees R [place]: 17 degrees T [place]: 60 degrees Sinus bradycardia Otherwise normal ECG When compared with ECG of 16-NOV-2023 02:39, No significant change was found Confirmed by CHERYL CHAVEZ ([id number]) on 11/19/2023 6:10:38 PM Spray: CHERYL CHAVEZ Note * Sonal Nelson RN: PERFORM, SIGN, VERIFY Event Display: Case Management Discharge Plan Authored Date: [id number] Patient: GLADIS GILBERT Age: 72 years Sex: Female : 1950 Associated Diagnoses: None Author: Sonal Nelson RN Discharge Plan Case Management Discharge Plan : Case Management Discharge Plan Data 11/19/2023 14:24 EDT Discharge Level of Care at Discharge Homehealth/VNA Discharge VNA/Hospice/Home Care [facility] Adults [phone] Discharge Transportation Arranged [facility] [address] [place] [address] Mode of Transportation Arranged [place] Name of Agency #1 [facility] Service Categories #1 Physical Therapy, Residential Service Comments #1 You are being discharged back home with continued home services from [facility] Name of Person Notified of Transfer your daughter Rito * Madison Loja MD: PERFORM Event Display: Patient Education Leaflets Authored Date: [id number] Urinary Tract Infections in Women ?? [id number] Urinary Tract Infections in Women Urinary tract infections (UTIs) are most often caused by bacteria. These bacteria enter the urinarytract. The bacteria may come from inside the body. Or they may travel from the skin outside the rectum or vagina into the urethra. Female anatomy makes it easy for bacteria from the bowel to enter a woman???s urinary tract. This is the most common source of UTI. This means women develop UTIs more often than men. Pain in or around the urinary tract is a common UTI symptom. Most UTIs are treated with antibiotics. These kill the bacteria. The length of time you need to take them depends on the type of infection. It may be as short as 3 days. If you have repeated UTIs, you may need a low-dose antibiotic for several months. Take antibiotics exactly as directed. Don???t stop taking them until all of the medicine is gone. If you stop taking the antibiotic too soon, the infection may not go away. You may also develop a resistance to the antibiotic. This can make it muchharder to treat in the future. Gender words are used here to talk about anatomy and health risk. Please use this information in a way that works best for you and your provider as you talk about your care. Home care The lifestyle changes below will help get rid of your UTI. They may also help prevent future UTIs: ??? Drink plenty of fluids. This includes water, juice, or other caffeine-free drinks. Fluids help flush bacteria out of your body. ??? Empty your bladder. Always empty your bladder when you feel the urge to pee. And always pee before going to sleep. Urine that stays in your bladder can lead to infection. Try to pee before and after sex as well. ??? Practice good personal hygiene. Wipe yourself from front to back after using the toilet. This helps keep bacteria from getting into the urethra. ???Use condoms during sex. These help prevent UTIs caused by sexually transmitted bacteria. Also don'tuse spermicides during sex. These can increase the risk for UTIs. Choose other forms of control instead. For women who tend to get UTIs after sex, a low dose of a preventive antibiotic may be used. Be sure to discuss this choice with your healthcare provider. ??? Try holistic supplements, such as cranberry tablets and D-mannose. These may help prevent UTIs. ??? Try topical vaginal estrogen.You can use this to help prevent UTIs if you have gone through menopause. ?? Follow-up care Follow up with your healthcare provider as directed. They may test to make sure the infection has cleared. If needed, more treatment may be started. ?? When to get medical advice Call your healthcare provider right away if any of the following occur: ??? Frequent urination ??? Pain or burning when passing urine ??? Fever of 100.4??F (38??C) or higher, or as directed by your healthcare provider ??? Urine looks dark, cloudy, or reddish in color. This may mean that blood is inthe urine. ??? Urine smells bad ??? Feeling pain even when not urinating ??? Tiredness ??? Pain in the belly (abdomen) area below the bellybutton, or in the back or side, below the ribs ??? Nausea orvomiting ??? Have a strong urge to urinate, but only a small amount of urine is passed ??? Uncomfortable pressure above the pubic bone ??? Feeling confused or very tired (in older adults) ?? Last Reviewed Date: 2022 ?? [id number] [employer]. All rights reserved. This information is not intended as a substitute for professional medical care. Always follow your healthcare professional's instructions. ?? Patient Care team information Care Team Personnel Name: Aster Pena RN Position: [facility] RN Member Role: Primary Care Nurse Name: Bella Alexander RN Position: [facility] RN Member Role: Primary Care Nurse Name: Dunia Phillip RN Position: [facility] ED RN W/OE and Tasks Member Role: Primary Care Nurse Name: Lisette Trejo RN Position: [facility] RN Member Role: Primary Care Nurse Name: Jessica Canseco RN Position: [facility] RN Member Role: Primary Care Nurse Name: Shauna Le RN Position: [facility] SN RN Member Role: Primary Care Nurse Name: Erica Archer RN Position: [facility] RN Supv Member Role: Primary Care Nurse Name: Vickie Lyons Position: [facility] Outreach Member Role: Lifetime Consulting Physician Name: Alba Small RN Position: [facility] RN Member Role: Primary Care Nurse Name: Martine Carr RN Position: [facility] RN Member Role: Primary Care Nurse Name: Indira Monsalve RN Position: [facility] RN Member Role: Primary Care Nurse Name: Frederick Encarnacion RN Position: [facility] RN Member Role: Primary Care Nurse Name: Chucho Carroll MD Position: [facility] Renal MD Member Role: Lifetime Consulting Physician Address: Address: [address] [place], [place] [address] [place], [place] [address] Name: Loren Mcmanus RN Position: S RN Member Role: Primary Care Nurse Name: Mp Zarco RN Position: S RN Member Role: Primary Care Nurse Name: Kathy Buck MD Position: [facility] Outreach Member Role: PCP Address: Address: [address] [place] [address]- [place] Name: Blayne Hughes RN Position: [facility] RN Member Role: Primary Care Nurse Name: Meena Camacho RN Position: S RN Member Role: Primary Care Nurse Name: Norma Art RN Position: S RN Member Role: Primary Care Nurse Name: Mecca Boyd RN Position: S RN Member Role: Primary Care Nurse Name: Katie Evans NP Position: [facility] PCO Associate Professional Member Role: Primary Care Nurse Address: Address: [address] [facility] [place] [address]- [place] Name: Rosendo Suarez RN Position: [facility] RN Member Role: Primary Care Nurse Name: Sierra Gray RN Position: [facility] RN Member Role: Primary Care Nurse Name: Leonor Mccormick RN Position: S RN Member Role: Primary Care Nurse Name: Hortensia Garrison Position: [facility] Outreach Member Role: Lifetime Consulting Physician Name: Paige Morris RN Position: [facility] RN Member Role: Primary Care Nurse Name: Trini Starr RN Position: [facility] RN Member Role: Primary Care Nurse Name: Amanda Dunne RN Position: [facility] RN Member Role: Primary Care Nurse Name: Marcie Rhodes RN Position: [facility] RN Member Role: Primary Care Nurse Name: Susie Monson RN Position: [facility] RN Member Role: Primary Care Nurse Name: Shante Devi LPN Position: [facility] RN Member Role: Primary Care Nurse Care Team Related Persons Name: PAIGE TALBERT Address: [place] [address] Name: CAMRON VELASQUEZ Address: [place] [address] Name: RITO SETHI Address: home [address] [address]
--- OUTSIDE RECORDS SUMMARY | 2023-12-05 21:36 | XMS_ITS | Continuity of Care Document ---
Author Organization [facility] ter Address [address] [place] [address]- Care Team Providers Care Information Engineer Name Role Phone Heber FRANKLIN, Kathy Primary Care Physician [phone] Encounter [facility] Date(s): 10/28/23 - 10/30/[address] [address]- Encounter Diagnosis Hypoglycemia(Final) - 10/29/23 Altered mental status(Final) - 10/29/23 Bradycardia(Final) - 10/29/23 Discharge Disposition: A-Transfer VNA/Home Health Attending Physician: Nahum Lal MD Admitting Physician: Leilani Garcia MD Referring Physician: Not on Staff, Referring MD Allergies, Adverse Reactions, Alerts No Known Allergies Immunizations Given and Recorded Vaccine Date Status Refusal Reason SARS-CoV-2 mRNA ([id number]) vax 07/09/21 Recorded SARS-CoV-2 (COVID-19) Ad26 vaccine 10/15/20 Record ed Medications Acetaminophen Tablet 650 mg, Tablet, By Mouth, Every 4 hours, PRN for Pain , Mild, Temperature Greater than 100.5, Routine, 10/29/23 7:40:00 EDT Start Date: 10/29/23 Stop Date: 10/31/23 Status: Discontinued aspirin 81 mg oral delayed release tablet 81 mg, 1, tablet, By Mouth, Daily Start Date: 12/15/18 Status: Ordered fluticasone 50 mcg/inh nasal spray 1 sprays, Nares, Both, 2 times a day, # 16 Gm, 0 Refills, Maintenance, 12/01/20 4:52:00 EDT, [place],Partial fill upon patient request if the prescription is for a schedule II opioid drug. Start Date: 12/01/20 Status: Ordered Lantus Inj = 10 units, Subcutaneous Injection, Daily at bedtime, 0 Refills, Maintenance, 10/30/23 13:02:00 EDT, Injection, Partial fill upon patient request if the prescription is for a schedule II opioid drug. Start Date: 10/30/23 Status: Ordered Linzess 145 mcg oral capsule 1 capsule = 145 mcg, By Mouth, Daily, # 30 capsule, 5 Refills, Maintenance, 08/03/22 10:00:00 EDT, [id number], 144.8, cm, 04/14/22 12:40:00 EST, Height, 67, kg, 03/04/22 21:45:00 EDT, Dry Weight Start Date: 08/03/22 Status: Ordered Norvasc 5 mg oral tablet 5 mg, 1, tablet, By Mouth, Daily, # 30 tablet, Refills 2, Tot. Refills 2, Maintenance, 10/26/23 10:20:00 EDT, Route to Pharmacy Electronically, [facility]/pharmacy #[id number], Partial fill upon patient request if the prescription is for a schedule II opioid drug.... Start Date: 10/26/23 Stop Date: 01/24/24 Status: Ordered oxyCODONE 5 mg oral tablet 2.5 mg, 0.5, tablet, By Mouth, Every 6 hours, PRN, Refills 0, Tot. Refills 0, Maintenance, as needed for pain, 10/29/23 12:38:00 EDT, Partial fill upon patient request if the prescription is for a schedule II opioid drug. Start Date: 10/29/23 Status: Ordered Protonix 40 mg oral delayed [...] Exam Date Time Procedure Performing Provider Status 10/28/23 8:[address] Angio Neck Betsy Samayoa; Auth (Verified) Notes: (CT Angio Neck) Reason For Exam: Aneurysm, neck vessel(s);Other: RESULT: CT Angio Neck CT Angio Head, CT Angio Neck Hx of Present Illness: BIBA after caregiver called EMS for dizziness, nausea, incontinence (foul smelling), AMS; Reason: Other:; Neuro deficit, acute, stroke suspected; Clinical Question(s): Other:; Hematoma Aneurysm / Other: TECHNIQUE: CT angiogram of the head and neck was performed after bolus administration of intravenous contrast. 100 mL of Omnipaque 300 was administered intravenously. Coronal and sagittal MIP reformatted images were obtained. Additional 3-D images were created on a separate workstation under concurrent supervision by the attending radiologist. All stenoses are measured using NASCET criteria. Weight-based protocol using automatic tube modulation was used to optimize exposure parameters. RADIATION DOSE PARAMETERS: CTDIvol Body: 11.47 mGy, DLP Body: 490 mGy*cm. CTDIvol Head: 48.30 mGy, DLP Head: 773 mGy*cm. COMPARISON: Noncontrast CT head performed concurrently. CTA Head and Neck 03/04/2022. FINDINGS: CTA OF THE NECK: Arch: There is a two vessel aortic arch, with common origin of the brachiocephalic artery and left common carotid artery. There is mild atherosclerotic plaque of the aortic arch, but origins of the supra aortic vessels are patent. There is mild narrowing of the proximal left subclavian artery. Right carotid system: The common carotid and cervical internal carotid arteries are patent. There is calcified atherosclerotic plaque at the carotid bifurcation, but no ICA stenosis (0%) by NASCET criteria. There is no dissection or aneurysm. Upper cervical ICA is tortuous. Left carotid system: The common carotid and cervical internal carotid arteries are patent. There iscalcified atherosclerotic plaque at the carotid bifurcation, but no ICA stenosis (0%) by NASCET criteria. There is no dissection or aneurysm. Upper cervical ICA is tortuous. There is a left-dominant vertebral artery system. Right vertebral: There is calcified atherosclerotic plaque at the origin with mild narrowing. Mild plaque is also present along the mid V2 segment. Otherwise no significant stenosis. There is no dissection or aneurysm. Left vertebral: There is calcified atherosclerotic plaque at the origin without significant stenosis. Plaque is also noted along the V1-V2 junction, and mid and distal V2 segment, without significantstenosis. There is no dissection or aneurysm. Other: Soft tissues and bones: No evidence of lymphadenopathy or mass. Thyroid nodule under 1.5 cm (1.2 cmon the right), not requiring follow-up in this demographic given the small size. A 7 mm nodule in the posterior right upper lobe is unchanged from CT chest of 06/04/2022. Lungs are otherwise blurred bymotion artifact, with atelectasis but no other significant supra posterior space opacity. Severe coronary artery calcifications are partially visualized. Multilevel degenerative changes of the spine are noted, without acute osseous abnormality. CTA OF THE HEAD: Anterior circulation: Bilateral intracranial ICAs demonstrate atherosclerotic calcification, with mild narrowing of the distal cavernous/clinoid ICAs, left greater on the right.. Bilateral AV and MCA branches are patent. There is early bifurcation of the right MCA less than 1 cm lateral to the carotid terminus, with irregularity and mild to moderate narrowing of the more superior division, similar to prior. There is also mild narrowing of a right distal M2 branch posteriorly, unchanged. There is no high-grade stenosis, proximal cutoff, aneurysm, or vascular malformation. Posterior circulation: Atherosclerotic calcifications of bilateral vertebral artery V4 segments arenoted, with moderate to severe stenosis on the right and mild narrowing on the left. The basilar artery and bilateral SCA and QUILL REAMER branches are patent without proximal cutoff. There is mild narrowing of the right QUILL REAMER P2 segment and moderate narrowing of the left P2 segment, similar to prior.. 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 No other aneurysm is seen. Veins: Major dural venous sinuses are patent. Arachnoid granulation is present in the superior sagittal sinus. Mild mixing artifact is noted in the sigmoid sinuses bilaterally. Other: Soft tissues and bones: No midline shift or effacement of the basal cisterns. No space-occupying hemorrhage. No territorial loss of matthew-white matter differentiation. There have been lens extractions bilaterally. No significant opacification in the paranasal sinusesor mastoid air cells. IMPRESSION: 1. No large vessel occlusion in the head or neck. 2. Scattered atherosclerotic disease and stenoses as above, fairly similar to prior, including narrowing of bilateral intracranial vertebral arteries (moderate to severe on the right and mild on the left), narrowing of bilateral toe lining closer (mild on the right and moderate on the left), mild narrowing of bilateral intracranial ICAs, and multifocal mild narrowing of the right MCA, but no high- grade stenosis or cutoff. Major findings are in agreement with the preliminary report provided by [facility]. Cervical carotid stenosis is overestimated on the preliminary report, and several intracranial stenosis were slightly under estimated. WSN: [id number] Ordering Physician: Jeanne John Dictated By: Anju Rao MD Dictated Date/Time: 10/29/23 10:34 a Reviewed By: Anju Rao MD Signed By: Anju Rao MD Signed Date/Time: 10/29/23 10:34 am Transcribed By: KEYSHA Transcribed Date/Time: 10/29/23 10:18 am * Exam Date Time Procedure Performing Provider Status 10/28/23 8:[address] Angio Head Betsy Samayoa; Auth (Verified) Notes: (CT Angio Head) Reason For Exam: Neuro deficit, acute, stroke suspected;Other: RESULT: CT Angio Head CT Angio Head, CT Angio Neck Hx of Present Illness: BIBA after caregiver called EMS for dizziness, nausea, incontinence (foul smelling), AMS; Reason: Other:; Neuro deficit, acute, stroke suspected; Clinical Question(s): Other:; Hematoma Aneurysm / Other: TECHNIQUE: CT angiogram of the head and neck was performed after bolus administration of intravenous contrast. 100 mL of Omnipaque 300 was administered intravenously. Coronal and sagittal MIP reformatted images were obtained. Additional 3-D images were created on a separate workstation under concurrent supervision by the attending radiologist. All stenoses are measured using NASCET criteria. Weight-based protocol using automatic tube modulation was used to optimize exposure parameters. RADIATION DOSE PARAMETERS: CTDIvol Body: 11.47 mGy, DLP Body: 490 mGy*cm. CTDIvol Head: 48.30 mGy, DLP Head: 773 mGy*cm. COMPARISON: Noncontrast CT head performed concurrently. CTA Head and Neck 03/04/2022. FINDINGS: CTA OF THE NECK: Arch: There is a two vessel aortic arch, with common origin of the brachiocephalic artery and left common carotid artery. There is mild atherosclerotic plaque of the aortic arch, but origins of the supra aortic vessels are patent. There is mild narrowing of the proximal left subclavian artery. Right carotid system: The common carotid and cervical internal carotid arteries are patent. There is calcified atherosclerotic plaque at the carotid bifurcation, but no ICA stenosis (0%) by NASCET criteria. There is no dissection or aneurysm. Upper cervical ICA is tortuous. Left carotid system: The common carotid and cervical internal carotid arteries are patent. There iscalcified atherosclerotic plaque at the carotid bifurcation, but no ICA stenosis (0%) by NASCET criteria. There is no dissection or aneurysm. Upper cervical ICA is tortuous. There is a left-dominant vertebral artery system. Right vertebral: There is calcified atherosclerotic plaque at the origin with mild narrowing. Mild plaque is also present along the mid V2 segment. Otherwise no significant stenosis. There is no dissection or aneurysm. Left vertebral: There is calcified atherosclerotic plaque at the origin without significant stenosis. Plaque is also noted along the V1-V2 junction, and mid and distal V2 segment, without significantstenosis. There is no dissection or aneurysm. Other: Soft tissues and bones: No evidence of lymphadenopathy or mass. Thyroid nodule under 1.5 cm (1.2 cmon the right), not requiring follow-up in this demographic given the small size. A 7 mm nodule in the posterior right upper lobe is unchanged from CT chest of 06/04/2022. Lungs are otherwise blurred bymotion artifact, with atelectasis but no other significant supra posterior space opacity. Severe coronary artery calcifications are partially visualized. Multilevel degenerative changes of the spine are noted, without acute osseous abnormality. CTA OF THE HEAD: Anterior circulation: Bilateral intracranial ICAs demonstrate atherosclerotic calcification, with mild narrowing of the distal cavernous/clinoid ICAs, left greater on the right.. Bilateral AV and MCA branches are patent. There is early bifurcation of the right MCA less than 1 cm lateral to the carotid terminus, with irregularity and mild to moderate narrowing of the more superior division, similar to prior. There is also mild narrowing of a right distal M2 branch posteriorly, unchanged. There is no high-grade stenosis, proximal cutoff, aneurysm, or vascular malformation. Posterior circulation: Atherosclerotic calcifications of bilateral vertebral artery V4 segments arenoted, with moderate to severe stenosis on the right and mild narrowing on the left. The basilar artery and bilateral SCA and QUILL REAMER branches are patent without proximal cutoff. There is mild narrowing of the right QUILL REAMER P2 segment and moderate narrowing of the left P2 segment, similar to prior.. 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 No other aneurysm is seen. Veins: Major dural venous sinuses are patent. Arachnoid granulation is present in the superior sagittal sinus. Mild mixing artifact is noted in the sigmoid sinuses bilaterally. Other: Soft tissues and bones: No midline shift or effacement of the basal cisterns. No space-occupying hemorrhage. No territorial loss of matthew-white matter differentiation. There have been lens extractions bilaterally. No significant opacification in the paranasal sinusesor mastoid air cells. IMPRESSION: 1. No large vessel occlusion in the head or neck. 2. Scattered atherosclerotic disease and stenoses as above, fairly similar to prior, including narrowing of bilateral intracranial vertebral arteries (moderate to severe on the right and mild on the left), narrowing of bilateral toe lining closer (mild on the right and moderate on the left), mild narrowing of bilateral intracranial ICAs, and multifocal mild narrowing of the right MCA, but no high- grade stenosis or cutoff. Major findings are in agreement with the preliminary report provided by [facility]. Cervical carotid stenosis is overestimated on the preliminary report, and several intracranial stenosis were slightly under estimated. WSN: [id number] Ordering Physician: Jeanne John Dictated By: Anju Rao MD Dictated Date/Time: 10/29/23 10:34 a Reviewed By: Anju Rao MD Signed By: Anju Rao MD Signed Date/Time: 10/29/23 10:34 am Transcribed By: KEYSHA Transcribed Date/Time: 10/29/23 10:18 am * Exam Date Time Procedure Performing Provider Status 10/28/23 8:[address] Head/Brain W/O Contrast Jian Samayoa hleigh; Auth (Verified) Notes: (CT Head/Brain W/O Contrast) Reason For Exam: Neuro deficit, acute, stroke suspected;Other: RESULT: CT Head/Brain W/O Contrast CT Head/Brain W/O Contrast INDICATION: dizziness, nausea, incontience (foul smelling), AMS TECHNIQUE: Noncontrast head CT using axial technique and reconstructed in axial and coronal planes.Iterative reconstruction techniques are used to optimize dose and image quality. CTDIvol Body: 11.47 mGy, DLP Body: 490 mGy*cm. CTDIvol Head: 48.30 mGy, DLP Head: 773 mGy*cm. COMPARISON: CT angiogram head 10/28/2023, CT head 07/23/2022 FINDINGS: Behavioral Health Clinician view findings, lines and tubes: None. BRAIN AND EXTRA-AXIAL SPACES: No parenchymal hemorrhage, midline shift, or mass effect. Matthew-white matter differentiation is wellpreserved. Encephalomalacia in the left occipital lobe. No acute infarct. Negative insular ribbon sign. Atherosclerotic vascular calcification of the carotid arteries but negative hyperdense vessel sign. Moderate prominence of the ventricles and sulci consistent with parenchymal volume loss. Severe low-density white matter changes. No subarachnoid hemorrhage. No subdural or epidural collection. CALVARIUM, SKULL BASE, AND SOFT TISSUES: No fractures or suspicious bony lesions. Small amount of debris in the left sphenoid sinus. Trace density in the right mastoid air cells. Status-post bilateral lens extraction. The extracranial soft tissues are unremarkable. IMPRESSION: No acute intracranial pathology. I have personally reviewed the images and I agree with this report. WSN: [id number] Ordering Physician: Jeanne John Dictated By: Sky Francisco MDu Dictated Date/Time: 10/28/23 9:04 pm Reviewed By: Osbaldo Lyon MD Signed By: Osbaldo Lyon MD Signed Date/Time: 10/28/23 9:09 pm Transcribed By: KEYSHA Transcribed Date/Time: 10/28/23 8:58 pm Vital Signs Most recent to oldest [Reference Range]: 1 2 3 Height 153 cm (10/30/23 7:18 AM) 153 cm (10/29/23 1:45 PM) Weight 73.1 kg (10/29/23 1:45 PM) Oxygen Saturation [94-100 %] 100 % (10/30/23 7:18 AM) 100 % (10/30/23 4:00 AM) 100 % (10/29/23 8:00 PM) Pulse Rate [55-90 bpm] 60 bpm (10/30/23 7:18 AM) 54 bpm *L* (10/30/23 4:00 AM) 58 bpm (10/29/23 8:00 PM) Body Mass Index [18.5-24.99 kg/m2] 31.23 kg/m2 *>HHI* (10/29/23 1:45 PM) Blood Pressure [90-138/55-84 mm Hg] 151/55mm Hg *H* (10/30/23 7:18 AM) 145/49mm Hg *H* (10/30/23 4:00 AM) 135/51mm Hg (10/29/23 8:00 PM) Respiratory Rate [16-30 br/min] 18 br/min (10/30/23 7:18 AM) 17 br/min (10/30/23 4:00 AM) 18 br/min (10/29/23 9:08 PM) Temperature [96.8-100.4 DegF] 97.3 DegF (10/30/23 7:18 AM) 97.8 DegF (10/30/23 4:00 AM) 98.3 DegF (10/29/23 8:00 PM) Mode of Delivery (Oxygen) Room air (10/30/23 7:18 AM) Room air (10/30/23 4:00 AM) Room air (10/29/23 8:00 PM) Blood pressure sites Arm, left (10/30/23 7:18 AM) Arm, left (10/30/23 4:00 AM) Arm, left (10/29/23 8:00 PM) Temperature Route Oral (10/30/23 7:18 AM) Oral (10/30/23 4:00 AM) Oral (10/29/23 8:00 PM) Dry Weight 73.1 kg (10/29/23 1:45 PM) Social History Social History Type Response Smoking Status Never (less than 100 in lifetime) entered on: 06/27/21 Sex Female Admission evaluation note * Elvi CABRERA, [place] Ledbetter: PERFORM, MODIFY, MODIFY Event Display: Admission Note Authored Date: [id number] Patient: ??GLADIS GILBERT ? Age:??72 Years?Sex:??Female?:??1950?? Chief Complaint/Reason for Consultation Headache/weakness History of Present Illness 72-year-old Libyan speaking female with history of CKD 3b, dementia, hypertension, dyslipidemia, diabetes mellitus type 2 on insulin, prior TIA, autoimmune hepatitis??and asthma who was recently admitted for SAM and treated with IV fluids. She was discharged on 10/25 and has been having a headache the last few days. She??became more confused and was brought to the ED for further evaluation. Whiletaking history in the ED, patient became lethargic and falling asleep and was found??to have a blood glucose of??40, heart rate in the 30-40s. She was given 2??amps of D50 with an increase in her glucose to over 400 which then came down again to [address]. She had a [address] of the head for AMS which showed no acute abnormality. ?? She is feeling much better now, c/o lower abdominal discomfort and need to urinate. Otherwise no complaints. ?? Baseline:??Dementia, lives with daughter, uses walker to ambulate. Review of Systems No chest pain, shortness of breath, fevers, chills, nausea, vomiting or diarrhea. Eating and sleeping well. Objective Vital Signs?? Temperature: 98 DegF (10/29/23 07:42:00) Temperature Route: Oral (10/29/23 07:42:00) Pulse Rate:??49 bpm??Low (10/29/23 07:42:00) Respiratory Rate: 20 br/min (10/29/23 06:32:00) Systolic Blood Pressure:??144 mm Hg??High (10/29/23 07:42:00) Diastolic Blood Pressure: 61 mm Hg (10/29/23 07:42:00) Blood pressure sites: Arm, left (10/29/23 07:42:00) Mean Arterial Pressure: 86 mm Hg (10/29/23 06:32:00) Pulse Pressure: 83 mm Hg (10/29/23 07:42:00) Oxygen Saturation: 99 % (10/29/23 07:42:00) Mode of Delivery (Oxygen): Room air (10/29/23 07:42:00) Early Warning Score: 4 (10/29/23 09:01:11) ? Intake/Output? No Data Available ? Physical Exam Temperature?98 ?(07:47) Systolic Blood Pressure?144 ?(07:47) Diastolic Blood Pressure?61 ?(07:47) Pulse?49 ?(07:47) SpO2?99 ?(07:47) Respiratory Rate?20 ?(06:36) ?? Constitutional: Alert, in no distress. Mental Status: Oriented to person, place but not??time. Respiratory: Clear to auscultation. No wheezing, rales or rhonchi. Cardiovascular: Regular rate and rhythm, no murmurs, rubs or gallops. Abdomen: Soft, non-tender, non-distended.??Normal bowel sounds. Skin: No rashes or lesions. Psychiatric: Normal mood and affect. Extremities: No edema. Assessment/Plan Assessment:??72-year-old Libyan speaking female with history of CKD 3b, dementia, hypertension, dyslipidemia, diabetes mellitus type 2 on insulin, prior TIA, immune hepatitis??and asthma who presented to the ED with AMS, headache and was found to have a glucose of 36. She is referred for observation for AMS and hypoglycemia. ?? Hypertension (I10):? Resume amlodipine daily. ?? Type 2 diabetes mellitus with hypoglycemia (E11.649) ?Grouped with??Hypoglycemia (E16.2) Usually??on lantus 25 units at HS with SSI 2-14 units at home. Med rec confirmed doses with pharmacy, different from home meds listed on last admit and d/c. Suspect decreased appetite and intake yesterday while taking long acting insulin led to hypoglycemia. Continue hypoglycemic monitoring and treatment measures and encourage PO intake. Resume lantus at lower dose tonight (15 units, what she was discharged on a few??days ago). If glucose uncontrolled in AM, can increase back to??home dose of 25 units. If hypoglycemic in AM, then will need to??lower her lantus and??encourage bedtime snack. If glucose is stable can d/c home early tomorrow. ?? Stage 3b chronic kidney disease (CKD) (N18.32):? At baseline. Bladder scan for PVR showed 180 cc. ?? Altered mental status (R41.82) ?Grouped with??Dementia (F03.90) AAO x person, place but not time. She is mentating well and communicating in Ukrainian and Libyan appropriately. AMS has cleared. ?? Bradycardia (R00.1):? Not on beta steff at home. Sinus bradycardia overnight, asymptomatic. No indication for further workup at this point.? Quality measures: ?? Code status:??DNR Diet:??Regular DVT prophylaxis:??Lovenox ?? I spent a total of??76 minutes today reviewing the chart/medical records, speaking with the patient, formulating and discussing the treatment plan and documenting the findings and encounter. Discussed plan with patient, nursing,??and case management. Called daughter/HCP/Home QUILL REAMER??Rito twice and only got voicemail. ?? [place] Boles II [facility] Pager #[phone] or [employer]?? Histories Allergies Allergies ?(Active and Proposed Allergies [...] Alcohol Details:??Use: Never. Details:??Use: Never. 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 Substance Abuse Details:??Use: Never. Details:??Use: Never. Tobacco Details:??Use: Never (less than 100 in lifetime). Details:??Use: Never (less than 100 in lifetime). Electronic Cigarette/Vaping Details:??Electronic Cigarette Use: Never. ? Family History Mother: Alzheimer disease; CAD - Coronary artery disease (cabg); Cancer of breast; Cancer of colon;Diabetes mellitus type II ? Medications Home Medications Amlodipine (Norvasc 5 mg oral tablet)?5?Milligram?1?tablet?By Mouth?Daily?for 30?Days Ascorbic Acid (Vitamin C 500 mg oral tablet)?1?tab(s)?500?Milligram?By Mouth?Daily Aspirin (aspirin 81 mg oral delayed release tablet)?81?Milligram?1?tablet?By Mouth?Daily Fluticasone Nasal (fluticasone 50 mcg/inh nasal spray)?1?spray(s)?Nares, Both?2 times aday Insulin Glargine (Lantus Inj)?25?unit(s)?Subcutaneous Injection?Daily at bedtime Insulin Lispro (insulin lispro 100 units/mL injectable solution)?2-14 units?Subcutaneous Injection?3 times a day before meals?120 - 149 ?? 2 units 150 - 179 ?? 3 units 180 - 209 ?? 4 units 210 - 239 ?? 6 ebstz081 - 269 ?? 7 units 270 - 299 ?? 8 unitsCall MD if greater than 300 linaclotide (Linzess 145 mcg oral capsule)?1?capsule?145?Microgram?By Mouth?Daily Oxycodone (oxyCODONE 5 mg oral tablet)?2.5?Milligram?0.5?tablet?By Mouth?Every 6 hours?as needed?as needed for pain Pantoprazole (Protonix 40 mg oral delayed release tablet)?1?tab(s)?40?Milligram?By Mouth?Daily Sucralfate (sucralfate 1 gm oral tablet)?1?gram?1?tablet?By Mouth?2 times a day Ursodiol (ursodiol 500 mg oral tablet)?1?tab(s)?500?Milligram?By Mouth?2 times a day ? Inpatient Medications Medications (22) Active SCHEDULED: (7) Amlodipine 5 mg Tablet (Norvasc 5 mg oral tablet) ??5 mg, By Mouth, Daily Aspirin 81 mg EC Tablet (aspirin 81 mg oral delayed release tablet) ??81 mg, By Mouth, Daily Enoxaparin 30 mg Inj (Enoxaparin Inj) ??30 mg 0.3 mL, Subcutaneous Injection, Daily Insulin Lispro 100 units/mL Inj (Insulin LISPRO Sliding Scale) ??2-10 units, Subcutaneous Injection, 3 times a day before meals NaCl 0.9% Flush 3ml (NaCL 0.9% Flush) ??3 mL, IV Push, Every 8 hours Pantoprazole 40 mg EC Tablet (Protonix 40 mg oral delayed release tablet) ??40 mg, By Mouth, Daily Sucralfate 1 Gm Tablet (sucralfate 1 gm oral tablet) ??1 Gm, By Mouth, 2 times a day CONTINUOUS: (0) PRN: (15) Acetaminophen 325 mg Tablet (Acetaminophen Tablet) ??650 mg, By Mouth, Every 4 hours Dextromethorphan-Guaifenesin 20 mg-200 mg/10 mL Liqu UD (Robitussin DM Liquid) ??10 mL, By Mouth, Every 4 hours Dextrose Inj Syringe (Dextrose 50% Inj Syringe (25Gm)) ??12.5 Gm, IV Push Slowly, Every 20 minutes Dextrose Inj Syringe (Dextrose 50% Inj Syringe (25Gm)) ??25 Gm, IV Push Slowly, Every 15 minutes Docusate Sodium 100 mg Capsule (Docusate Sodium Capsule) ??100 mg 1 capsule, By Mouth, 2 times a day Glucagon 1 mg Inj (Glucagon Inj) ??1 mg, Intramuscular, Once Glucose 40% Gel (15 Gm) (Glucose Gel) ??15 Gm, By Mouth, Every 20 minutes Glucose 40% Gel (15 Gm) (Glucose Gel) ??30 Gm, By Mouth, Every 20 minutes Melatonin 3 mg Tablet (Melatonin Tablet) ??3 mg, By Mouth, Daily at bedtime NaCl 0.9% Flush 3ml (NaCL 0.9% Flush) ??3 mL, IV Push, Every 8 hours Ondansetron 2mg/mL Inj (2mL Vial) (Ondansetron Inj) ??4 mg, IV Push, Every 4 hours OxyCODONE 5 mg IR Tablet (oxyCODONE 5 mg oral tablet) ??2.5 mg, By Mouth, Every 6 hours Polyethylene Glycol 17 Gm Powder (MiraLax Powder) ??17 Gm 1 pack/packet, By Mouth, Daily Senna Tablet ??8.6 mg 1 tablet, By Mouth, 2 times a day Simethicone 80 mg Chewable Tablet (Simethicone Tablet) ??80 mg, Chew, 3 times a day ? Results Recent Labs BLOOD COUNT & DIFF WBC 7.0 k/mm3 ()?? 10/29/2023 08:00 RBC 4.03 m/mm3 (Low)?? 10/29/2023 08:00 Hgb 11.6 Gm/dL (Low)?? 10/29/2023 08:00 Hct 36.9 % ()?? 10/29/2023 08:00 MCV 91.6 femtoliters ()?? 10/29/2023 08:00 MCH 28.8 pg ()?? 10/29/2023 08:00 MCHC 31.4 g/dL (Low)?? 10/29/2023 08:00 Platelet Count 189 k/mm3 ()?? 10/29/2023 08:00 RDW-SD 48.7 femtoliters (High)?? 10/29/2023 08:00 MPV 11.7 femtoliters ()?? 10/29/2023 08:00 Nucleated RBC (Automated) 0.0 #/100 WBC'S ()?? 10/29/2023 08:00 Abs. NRBC 0.0 k/mm3 ()?? 10/29/2023 08:00 Abs. Neut 4.5 k/mm3 ()?? 10/28/2023 20:28 Abs. Lymph 3.1 k/mm3 ()?? 10/28/2023 20:28 Abs. Traill 0.7 k/mm3 ()?? 10/28/2023 20:28 Abs. Eo 0.3 k/mm3 ()?? 10/28/2023 20:28 Abs. Baso 0.0 k/mm3 ()?? 10/28/2023 20:28 Neut % 52.2 % ()?? 10/28/2023 20:28 Lymph % 36.1 % ()?? 10/28/2023 20:28 Traill % 7.7 % ()?? 10/28/2023 20:28 Eos % 3.0 % ()?? 10/28/2023 20:28 Baso % 0.5 % ()?? 10/28/2023 20:28 Hemoglobin (POC) POC Cartridge 10.5 Gm/dL (Low)?? 10/28/2023 19:42 Hematocrit (POC) POC Cartridge 31 % (Low)?? 10/28/2023 19:42 Imm Gran 0.5 % ()?? 10/28/2023 20:28 Abs. Imm Gran 0.0 k/mm3 ()?? 10/28/2023 20:28 ?? BLOOD GAS pH Venous (POC) POC Cartridge 7.35 ()?? 10/28/2023 19:42 pCO2 Venous (POC) POC Cartridge 44.0 mm Hg ()?? 10/28/2023 19:42 pO2 Venous (POC) POC Cartridge 39 mm Hg ()?? 10/28/2023 19:42 Est Bicarbonate (POC) POC Cartridge 24.6 mmol/L ()?? 10/28/2023 19:42 % O2 Sat Venous (POC) POC Cartridge 71 ()?? 10/28/2023 19:42 Base Excess (POC) POC Cartridge NEGATIVE 1 ()?? 10/28/2023 19:42 Specimen Type - Blood Gas VENOUS ()?? 10/28/2023 19:42 ?? CARDIAC High Sensitivity Troponin (HSTnT) 19 ng/L (High)?? 10/29/2023 00:11 ?? CHEM GENERAL Sodium 145 mmol/L ()?? 10/28/2023 20:28 Potassium 4.2 mmol/L ()?? 10/28/2023 20:28 Chloride 110 mmol/L (High)?? 10/28/2023 20:28 Bicarbonate Level 24 mmol/L ()?? 10/28/2023 20:28 Anion Gap 11 ()?? 10/28/2023 20:28 Sodium (POC) POC Cartridge 143 mmol/L ()?? 10/28/2023 19:42 Potassium (POC) POC Cartridge 5.0 mmol/L ()?? 10/28/2023 19:42 Glucose Level 36 mg/dL (Critical)?? 10/28/2023 20:28 Glucose (POC) POC Cartridge 40 (Critical)?? 10/28/2023 19:42 Glucose, POC 112 mg/dL (High)?? 10/29/2023 07:52 BUN 42 mg/dL (High)?? 10/28/2023 20:28 Creatinine-Blood 2.09 mg/dL (High)?? 10/28/2023 20:28 Estimated GFR Creatinine 25 ML/MIN/1.73 M2 ()?? 10/28/2023 20:28 Calcium 9.0 mg/dL ()?? 10/28/2023 20:28 Ionized Calcium (POC) POC Cartridge 1.17 mmol/L ()?? 10/28/2023 19:42 Magnesium 2.2 mg/dL ()?? 10/28/2023 20:28 Alkaline Phosphatase 323 units/L (High)?? 10/28/2023 20:28 Lipase 31 units/L ()?? 10/28/2023 20:28 AST (SGOT) 49 units/L (High)?? 10/28/2023 20:28 ALT (SGPT) 29 units/L ()?? 10/28/2023 20:28 Bilirubin, Total <0.2 mg/dL ()?? 10/28/2023 20:28 Lactate 1.5 mmol/L ()?? 10/28/2023 20:28 ?? COAG INR 1.0 ()?? 10/28/2023 20:28 Protime (PT) 10.9 seconds ()?? 10/28/2023 20:28 ?? ENDOCRINE/TUMOR MARKER TSH 9.75 uIU/mL (High)?? 10/28/2023 20:28 ?? MISC. CHEMISTRY Ammonia, Venous 25 ??mole/L ()?? 10/28/2023 20:28 ?? TOXICOLOGY/TDM Ethanol, Serum or Plasma NONE DETECTED mg/dL ()?? 10/28/2023 20:28 ?? UA/URINALYSIS Appear/Color, Urine LIGHT YELLOW ()?? 10/28/2023 20:52 Specific [place], Urine 1.013 ()?? 10/28/2023 20:52 pH, Urine 6.0 ()?? 10/28/2023 20:52 Albumin, Urine 2+ (Abnormal)?? 10/28/2023 20:52 Glucose, Urine TRACE (Abnormal)?? 10/28/2023 20:52 Ketones, Urine NEGATIVE ()?? 10/28/2023 20:52 Bilirubin, Urine NEGATIVE ()?? 10/28/2023 20:52 Hemoglobin, Urine NEGATIVE ()?? 10/28/2023 20:52 Nitrite, Urine NEGATIVE ()?? 10/28/2023 20:52 Leukocyte, Urine NEGATIVE ()?? 10/28/2023 20:52 Urobilinogen NORMAL mg/dL ()?? 10/28/2023 20:52 WBC's, Urine 2 /HPF ()?? 10/28/2023 20:52 RBC's, Urine <1 /HPF ()?? 10/28/2023 20:52 Squamous Epith 1 /HPF ()?? 10/28/2023 20:52 Hyaline Cast 1 LPF ()?? 10/28/2023 20:52 Mucus SLIGHT /LPF ()?? 10/28/2023 20:52 ? EKG study * Event Display: ECG 12-Lead Authored Date: Please click on pdf link to open report * Event Display: ECG 12-Lead Authored Date: Ventricular Rate: 44 BPM Atrial Rate: 44 BPM P-R Interval: 134 ms QRS Duration: 86 ms Q-T Interval: 490 ms QTC Calculation(Bazett): 418 ms P [place]: 67 degrees R [place]: 1 degrees T [place]: 64 degrees Marked sinus bradycardia Minimal voltage criteria for LVH, may be normal variant ( R in aVL ) Abnormal ECG When compared with ECG of 23-OCT-2023 15:05, Vent. rate has decreased BY 27 BPM Confirmed by Blayne Beckett ([id number]) on 10/29/2023 7:21:26 AM [place]: Blayne Beckett [facility] Progress note * Rosendo Suarez RN: PERFORM, SIGN, VERIFY Event Display: Progress [facility] Authored Date: Patient: GLADIS GILBERT Age: 72 years Sex: Female : 1950 Associated Diagnoses: None Author: Rosendo Suarez RN Findings Narrative/Incidental Pt confused at baseline, agitated last night because nobody brought her water, but there was water on her table already. Fresh water brought in and pt's demeanor changed entirely. Pt was calm and cooperative and took meds whole with water. Tylenol given for minor abd pain with effect. Melatonin given for sleep with effect. BG 163 at bedtime, 15 units lantus administered per order. Pt is voiding to primafit. Tolerating diet and snacks. Fall and skin precautions maintained. Sleeping between care.Plan for S3 in the morning for discharge. . Discharge Information Case Management Discharge Plan : Case Management Discharge Plan Data 10/29/2023 14:27 EDT Discharge Nursing Homes/Rehab Facilities [facility] 10/26/2023 13:37 EDT Discharge Level of Care at Discharge Homehealth/VNA Discharge VNA/Hospice/Home Care [facility] [phone] 10/26/2023 10:16 EDT Discharge Level of Care at Discharge Homehealth/VNA Discharge VNA/Hospice/Home Care [facility] [phone] Service Categories #1 Physical Therapy, Detention Service Comments #1 The agency will call you to arrange visit times, please call agency with questions * Vero Simpson RN: PERFORM, SIGN, VERIFY Event Display: Progress Note Hospital Authored Date: [id number] Patient: GLADIS GILBERT Age: 72 years Sex: Female : 1950 Associated Diagnoses: None Author: Vero Simpson RN Findings Evaluation Pt arrived to floor approx 2pm. Able to stand pivot from stretcher to bed with staff assist. Alert to self and place. Unaware of year/pres and situation. States I dont remember when asked. Following simple commands without issue. IRIZARRY strong. Tremors noted BUE. Pos perrla. No edema, pos PP. LSCTA,no s/s of resp dsitress/SOB. skin intact. Pos BS all quads, abd soft/nontender, last BM . Resting in bed at this time, safety prec in place. . Note * Trupti Cooley RN: PERFORM Event Display: Discharge/Transfer Note Hospital Authored Date: [id number] Nursing Discharge Note Entered On: 10/30/2023 15:40 EDT Performed On: 10/30/2023 15:40 EDT by Trupti Cooley RN Nursing Discharge Note 2 Discharge Time : 10/30/2023 15:40 EDT Discharge Level of Care at Discharge : Homehealth/VNA Discharge Nursing Homes/Rehab Facilities : [facility] Discharge VNA/Hospice/Home Care(v001) : [facility] [phone] Patient Left Unit Via : Wheelchair Patient Accompanied Off Unit with : Responsible adult DC Instructions Provided & Signed by Pt : Yes Patient Understands D/C Instructions : Yes Patient Instructions Discharge Signed : Yes Did Pt have Specialty Bed or Wound Vac : No Trupti Cooley RN - 10/30/2023 15:40 EDT * Do BRAND MGRDeidra T: MODIFY, PERFORM, MODIFY, MODIFY, MODIFY, MODIFY Event Display: Discharge/Transfer Note Hospital Authored Date: Patient: ??GLADIS GILBERT ? Age:??72 Years?Sex:??Female?:??1950?? Patient Information Discharge Location: Primary Care Physician: Kathy Buck MD Admit Date/Time: 10/28/23 18:10 Discharge Disposition Discharge Disposition: Home with Home Health Discharge Diagnosis Hypoglycemia (E16.2) Altered mental status (R41.82) Bradycardia (R00.1) Stage 3b chronic kidney disease (CKD) (N18.32) Dementia (F03.90) Type 2 diabetes mellitus with hypoglycemia (E11.649) Hypertension (I10) _ Discharge Medications Amlodipine (Norvasc 5 mg oral tablet)?5?Milligram?1?tablet?By Mouth?Daily?for 30?Days Ascorbic Acid (Vitamin C 500 mg oral tablet)?1?tab(s)?500?Milligram?By Mouth?Daily Aspirin (aspirin 81 mg oral delayed release tablet)?81?Milligram?1?tablet?By Mouth?Daily Fluticasone Nasal (fluticasone 50 mcg/inh nasal spray)?1?spray(s)?Nares, Both?2 times aday Insulin Glargine (Lantus Inj)?10?unit(s)?Subcutaneous Injection?Daily at bedtime linaclotide (Linzess 145 mcg oral capsule)?1?capsule?145?Microgram?By Mouth?Daily Oxycodone (oxyCODONE 5 mg oral tablet)?2.5?Milligram?0.5?tablet?By Mouth?Every 6 hours?as needed?as needed for pain Pantoprazole (Protonix 40 mg oral delayed release tablet)?1?tab(s)?40?Milligram?By Mouth?Daily Sucralfate (sucralfate 1 gm oral tablet)?1?gram?1?tablet?By Mouth?2 times a day Ursodiol (ursodiol 500 mg oral tablet)?1?tab(s)?500?Milligram?By Mouth?2 times a day ? Medications Started none Medications Discontinued lispro Doses Changed decrease lantus to 10 unit daily Allergies Allergies ?(Active and Proposed Allergies Only) NKA? (Severity: Unknown severity, Onset: Unknown) ? PCP Follow-Up/Heads-Up Type 2 diabetes mellitus with hypoglycemia (E11.649) Hypoglycemia (E16.2) decrease lantus to 10 units daily f/u with PCP outpt dc insulin lispro. if BS elevated??in the future, can increase lantus as tolerated. make sure patient is eating well with insulin Objective Assessment and Plan Assessment:??72-year-old Libyan speaking female with history of CKD 3b, dementia, hypertension, dyslipidemia, diabetes mellitus type 2 on insulin, prior TIA, immune hepatitis??and asthma who presented to the ED with AMS, headache and was found to have a glucose of 36. She is referred for observation for AMS and hypoglycemia. ?? Hypertension (I10):? Resume amlodipine daily. ?? Type 2 diabetes mellitus with hypoglycemia (E11.649) Hypoglycemia (E16.2) Usually??on lantus 25 units at HS with SSI 2-14 units at home. Med rec confirmed doses with pharmacy, different from home meds listed on last admit and d/c. Suspect decreased appetite and intake yesterday while taking long acting insulin led to hypoglycemia. decrease lantus to 10 units daily f/u with PCP outpt Hga1c 7.5, dc insulin lispro. if BS elevated??in the future, can increase lantus as tolerated. makesure patient is eating well with insulin ?? Stage 3b chronic kidney disease (CKD) (N18.32):? At baseline. ??f/u with PCP outpt ?? Altered mental status (R41.82) resolved ?Grouped with??Dementia (F03.90) CTH and CTA H/N unremarkable AAO x person, place but not time. She is mentating well and communicating in Ukrainian and Libyan appropriately. AMS has cleared. ?? Bradycardia (R00.1):? Not on beta steff at home. Sinus bradycardia overnight, asymptomatic. No indication for further workup at this point.? case reviewed and discussed with attending Dr. Lal ?? . Physical Exam Constitutional: Alert, in no acute distress. Head: Normocephalic. Eyes: PERRLA. EOMI. No pallor or scleral icterus Ear, Nose and Throat: mucous membranes moist. Neck:??No JVD or bruits. Respiratory:??Clear to auscultation. No wheezing or rhonchi.??No use of accessory muscles.?? Cardiovascular:??S1 S2 regular. No murmurs, rubs or gallops. Gastrointestinal:??Abdomen soft, non-tender, non-distended. Normal bowel sounds.?? Extremities: No lower extremity pitting edema.?? Neurologic:??AAOx3, Cranial nerves II-XII grossly intact. Speech normal, no facial droop. No focal neurological deficits. Moves all extremities spontaneously.?? Skin:??No rash.?? Psychiatric: Normal mood and affect.d Pending Results Blood Gas Arterial ordered on 10/28/2023 Patient Education Titles Web[employer] Ignite Patient Education - [id number]: Self-Care for Low Blood Sugar (Hypoglycemia)?? Follow-Up Appointments Added Follow Up ?Time Frame ?Comments Heber FRANKLIN, Kathy Patient Instructions decrease lantus to 10 units daily f/u with PCP outpt dc insulin lispro. ?? if patient develops new symptoms, include severe chest pain, shortness of breath, abdominal pain, high fevers, nausea and vomiting unable to tolerate by mouth, please come back to ED Post Discharge Care Diet: ??Diabetic Diet ?? Activity: ??Ambulate with assistance 3 times a day unless otherwise specified ?? Discharge ?10/30/23 13:06:00 EDT Discharge Prescriptions ?None, 10/30/23 13:06:00 EDT Home Health Face to Face *Denotes mandatory de la fuente ?? *I certify that this patient is under my care and that I or an allowed non- physician working with me had a face to face encounter with the patient on this date:??10/30/2023 13:07 ?? *The encounter with the patient was in whole, or in part, for the following medical condition, which is the primary diagnosis(es) for home health care:??Hypoglycemia (E16.2) Altered mental status (R41.82) Bradycardia (R00.1) Stage 3b chronic kidney disease (CKD) (N18.32) Dementia (F03.90) Type 2 diabetes mellitus with hypoglycemia (E11.649) Hypertension (I10) ?? *Select the indications for the discipline/s that are being arranged for this patient. Nursing (select all that apply): [_] None [x_] Medication management (reconciliation, teaching)?? [x_] Chronic disease management?? [_] Wound care and treatment?? [x_] Home safety evaluation [_] Administer SQ/IM/IV medications?? [_] Cath care?? [_] Drain care?? [_] Trach or GT care?? Other _ Occupation Therapy (select all that apply): [_] None [_] ADL Management [_] Fall prevention training [_] Energy conservation [_] Cognitive training Other _ Physical Therapy (select all that apply): [_] None [x_] Functional mobility training [x_] Home exercise program to strengthen [x_] Increase ROM?? [x_] Falls prevention training [x_] Home maintenance program for chronic disease Other _ Speech Therapy (select all that apply): [_] None [_] Swallow evaluation and training [_] Speech and language training [_] Cognitive training to process, organize, and/or recall information Other _ ? *Homebound due to (select all that apply): [x_] Inability to leave home without assistance/supervision [x_] Inability to ambulate without assistance [_] Pain [x_] Decreased strength and endurance [x_] Unsteady gait [_] Severe SOB and fatigue [_] Impaired transfers [_] Inability to negotiate stairs [_] Limited weight bearing [_] Mental status change? *Physician Signature:??Vi Do, ACNP ?? *By signing this, I certify that I have personally evaluated the patient and agree with the findings and recommendations as documented above. ? Results Discharge Labs BLOOD COUNT & DIFF WBC 7.0 k/mm3 ()?? 10/29/2023 08:00 RBC 4.03 m/mm3 (Low)?? 10/29/2023 08:00 Hgb 11.6 Gm/dL (Low)?? 10/29/2023 08:00 Hct 36.9 % ()?? 10/29/2023 08:00 MCV 91.6 femtoliters ()?? 10/29/2023 08:00 MCH 28.8 pg ()?? 10/29/2023 08:00 MCHC 31.4 g/dL (Low)?? 10/29/2023 08:00 Platelet Count 189 k/mm3 ()?? 10/29/2023 08:00 RDW-SD 48.7 femtoliters (High)?? 10/29/2023 08:00 MPV 11.7 femtoliters ()?? 10/29/2023 08:00 Nucleated RBC (Automated) 0.0 #/100 WBC'S ()?? 10/29/2023 08:00 Abs. NRBC 0.0 k/mm3 ()?? 10/29/2023 08:00 Abs. Neut 4.5 k/mm3 ()?? 10/28/2023 20:28 Abs. Lymph 3.1 k/mm3 ()?? 10/28/2023 20:28 Abs. Traill 0.7 k/mm3 ()?? 10/28/2023 20:28 Abs. Eo 0.3 k/mm3 ()?? 10/28/2023 20:28 Abs. Baso 0.0 k/mm3 ()?? 10/28/2023 20:28 Neut % 52.2 % ()?? 10/28/2023 20:28 Lymph % 36.1 % ()?? 10/28/2023 20:28 Traill % 7.7 % ()?? 10/28/2023 20:28 Eos % 3.0 % ()?? 10/28/2023 20:28 Baso % 0.5 % ()?? 10/28/2023 20:28 Hemoglobin (POC) POC Cartridge 10.5 Gm/dL (Low)?? 10/28/2023 19:42 Hematocrit (POC) POC Cartridge 31 % (Low)?? 10/28/2023 19:42 Imm Gran 0.5 % ()?? 10/28/2023 20:28 Abs. Imm Gran 0.0 k/mm3 ()?? 10/28/2023 20:28 ?? BLOOD GAS pH Venous (POC) POC Cartridge 7.35 ()?? 10/28/2023 19:42 pCO2 Venous (POC) POC Cartridge 44.0 mm Hg ()?? 10/28/2023 19:42 pO2 Venous (POC) POC Cartridge 39 mm Hg ()?? 10/28/2023 19:42 Est Bicarbonate (POC) POC Cartridge 24.6 mmol/L ()?? 10/28/2023 19:42 % O2 Sat Venous (POC) POC Cartridge 71 ()?? 10/28/2023 19:42 Base Excess (POC) POC Cartridge NEGATIVE 1 ()?? 10/28/2023 19:42 Specimen Type - Blood Gas VENOUS ()?? 10/28/2023 19:42 ? CARDIAC High Sensitivity Troponin (HSTnT) 19 ng/L (High)?? 10/29/2023 00:11 ? CHEM GENERAL Sodium 140 mmol/L ()?? 10/30/2023 09:11 Potassium 4.4 mmol/L ()?? 10/30/2023 09:11 Chloride 108 mmol/L (High)?? 10/30/2023 09:11 Bicarbonate Level 20 mmol/L (Low)?? 10/30/2023 09:11 Anion Gap 12 ()?? 10/30/2023 09:11 Sodium (POC) POC Cartridge 143 mmol/L ()?? 10/28/2023 19:42 Potassium (POC) POC Cartridge 5.0 mmol/L ()?? 10/28/2023 19:42 Glucose Level 136 mg/dL (High)?? 10/30/2023 09:11 Glucose (POC) POC Cartridge 40 (Critical)?? 10/28/2023 19:42 Glucose, POC 174 mg/dL (High)?? 10/30/2023 11:35 Hemoglobin A1C (Monitoring) 7.5 % (High)?? 10/30/2023 09:11 BUN 36 mg/dL (High)?? 10/30/2023 09:11 Creatinine-Blood 2.06 mg/dL (High)?? 10/30/2023 09:11 Estimated GFR Creatinine 25 ML/MIN/1.73 M2 ()?? 10/30/2023 09:11 Calcium 8.6 mg/dL ()?? 10/30/2023 09:11 Ionized Calcium (POC) POC Cartridge 1.17 mmol/L ()?? 10/28/2023 19:42 Magnesium 2.2 mg/dL ()?? 10/28/2023 20:28 Alkaline Phosphatase 323 units/L (High)?? 10/28/2023 20:28 Lipase 31 units/L ()?? 10/28/2023 20:28 AST (SGOT) 49 units/L (High)?? 10/28/2023 20:28 ALT (SGPT) 29 units/L ()?? 10/28/2023 20:28 Bilirubin, Total <0.2 mg/dL ()?? 10/28/2023 20:28 Lactate 1.5 mmol/L ()?? 10/28/2023 20:28 ? COAG INR 1.0 ()?? 10/28/2023 20:28 Protime (PT) 10.9 seconds ()?? 10/28/2023 20:28 ?? ENDOCRINE/TUMOR MARKER TSH 9.75 uIU/mL (High)?? 10/28/2023 20:28 Free T4 0.99 ng/dL ()?? 10/29/2023 08:01 ?? MISC. CHEMISTRY Ammonia, Venous 25 ??mole/L ()?? 10/28/2023 20:28 ? TOXICOLOGY/TDM Ethanol, Serum or Plasma NONE DETECTED mg/dL ()?? 10/28/2023 20:28 ? UA/URINALYSIS Appear/Color, Urine LIGHT YELLOW ()?? 10/28/2023 20:52 Specific [place], Urine 1.013 ()?? 10/28/2023 20:52 pH, Urine 6.0 ()?? 10/28/2023 20:52 Albumin, Urine 2+ (Abnormal)?? 10/28/2023 20:52 Glucose, Urine TRACE (Abnormal)?? 10/28/2023 20:52 Ketones, Urine NEGATIVE ()?? 10/28/2023 20:52 Bilirubin, Urine NEGATIVE ()?? 10/28/2023 20:52 Hemoglobin, Urine NEGATIVE ()?? 10/28/2023 20:52 Nitrite, Urine NEGATIVE ()?? 10/28/2023 20:52 Leukocyte, Urine NEGATIVE ()?? 10/28/2023 20:52 Urobilinogen NORMAL mg/dL ()?? 10/28/2023 20:52 WBC's, Urine 2 /HPF ()?? 10/28/2023 20:52 RBC's, Urine <1 /HPF ()?? 10/28/2023 20:52 Squamous Epith 1 /HPF ()?? 10/28/2023 20:52 Hyaline Cast 1 LPF ()?? 10/28/2023 20:52 Mucus SLIGHT /LPF ()?? 10/28/2023 20:52 Hold Urine Culture Testing available 48 hours from time of collection. ()?? 10/28/2023 20:52 ? URINE OTHER Est Creatinine Clearance 17.94 mL/min ()?? 10/30/2023 10:10 ? 35??minutes spent on discharge * Trupti Cooley RN: PERFORM Event Display: Patient Education/Instruction Authored Date: [id number] Inpatient Adult Discharge Instructions. [address] [address] Name: GLADIS GILBERT : 1950?? Visit: 10/28/2023 18:10?? Current Date: 10/30/2023 15:29 ?? Account: [id number]?? Inpatient Adult Discharge Instructions We would like [...] and their families. Surveys are administered by [employer] ?? If further treatment with your primary care physician or another doctor is recommended, it is important for you to keep the appointment. Call your primary care physician or return to the Emergency Department immediately if your condition worsens, fails to improve, or new symptoms develop. If you need to find a doctor, you can call [facility] [employer] for a referral at [phone] or toll free at [phone] or log in to [email or web address].. ?? [facility], in keeping with [facility] guidance, no longer requires face masks for [...] a health care joe of your choosing. [employer] is a website that allows you to securely view your medical information including your hospital discharge summary, office visit summaries, medications and follow-up visits. You can also request appointments, renew medications, and request access to your medical information using a health care joe of your choosing, or just ask a question. You can enroll at [email or web address] or register during your next office visit. You have been discharged from [facility], Patient Care Unit: S3??. If you have any questions regarding these instructions, including results of studies pending, afteryou leave, please call us and we will be happy to assist you 24/11. [facility] Your Care Team Attending Physician Nahum Lal MD?? Consulting Providers Nahum Lal MD?? Discharging Providers Do BRAND MGR, Vi T Reason for Your Visit Headache/weakness?? Your Diagnosis Dementia General medical Hypertension Stage 3b chronic kidney disease (CKD) Type 2 diabetes mellitus with hypoglycemia Tests Performed Below is a partial list of the tests performed during your hospitalization. You may have had other tests and procedures not included in this list. Please discuss all test results with your provider. Alcohol Level Alk Phos ALT Ammonia Venous AST BASE EXCESS POC CARTRIDGE Basic Metabolic Panel BUN CALCIUM IONIZED POC CART Calcium Level CBC CBC w/ Differential Creatinine Electrolytes Glucose Level GLUCOSE POC GLUCOSE POC CARTRIDGE HEMATOCRIT POC CARTRIDGE Hemoglobin A1C (Monitoring) HEMOGLOBIN POC CARTRIDGE High??Sensitivity??Troponin T INR Lactate Level Lipase Magnesium Level POTASSIUM POC CARTRIDGE SODIUM POC CARTRIDGE T4 Free Total Bilirubin Troponin T, High Sensitivity TSH Urinalysis w/hold for Urine Culture VBG POC CARTRIDGE CT Angio Head CT Angio Neck CT Head/Brain W/O Contrast Blood Gas Arterial?? Primary Care Provider Kathy Buck MD? Advance Directive Health Care Proxy on File Yes - Health Care Proxy Discharge Vitals Temperature: 97.3 DegF Height: 153 cm Pulse Rate: 60 bpm Weight: 73.1 kg Respiratory Rate: 18 br/min Body Mass Index:??31.23 kg/m2??Critical Systolic Blood Pressure:??151 mm Hg??High Body surface area: 1.76 Diastolic Blood Pressure: 55 mm Hg ?? Oxygen Saturation: 100 % ?? Studies Pending All studies ordered during this hospital stay have been completed unless listed below. Please discuss all pending results with your provider listed above in these instructions. ?? Blood Gas Arterial?? What to do next Instructions From Your Doctor decrease lantus to 10 units daily f/u with PCP outpt dc insulin lispro. ?? if patient develops new symptoms, include severe chest pain, shortness of breath, abdominal pain, high fevers, nausea and vomiting unable to tolerate by mouth, please come back to ED ?? Orders??:Diabetic Diet :Ambulate with assistance ??3 times a day ??unless otherwise specified? 10/30/23 13:06:00 EDT?? Prescriptions??, ??10/30/23 13:06:00 EDT?? You Need to Schedule the Following Appointments Follow Up with??Heber FRANKLIN, [facility] Where: [address] [place] [address]- Discharge Medications GLADIS GILBERT :1950 Visit Date:10/28/2023 Medications: Please continue your medications until treatment is completed or stopped by your provider. Medications not listed below should be discontinued. Discuss any questions related to medications with your provider. What How Much When Instructions Next Dose Changed Insulin Glargine (Lantus Inj) 10 unit(s) Subcutaneous Injection Daily at Bedtime pm 10/29 Changed Ursodiol (ursodiol 500 mg oral tablet) 1 tab(s) Oral Twice a day pm 10/29 Changed linaclotide (Linzess 145 mcg oral capsule) 1 capsule Oral Daily am 10/30 Unchanged Amlodipine (Norvasc 5 mg oral tablet) 1 tab(s) Oral Daily Duration: 30 Days am 10/30 Unchanged Ascorbic Acid (Vitamin C 500 mg oral tablet) 1 tab(s) Oral Daily am 10/30 Unchanged Aspirin (aspirin 81 mg oral delayed release tablet) 1 tab(s) Oral Daily am 10/30 Unchanged Fluticasone Nasal (fluticasone 50 mcg/ inh nasal spray) 1 spray(s) Nares, Both Twice a day pm 10/29 Unchanged Oxycodone (oxyCODONE 5 mg oral tablet) 0.5 tab(s) Oral Every 6 hours as needed for as needed for pain as needed Unchanged Pantoprazole (Protonix 40 mg oral delayed release tablet) 1 tab(s) Oral Daily am 10/30 Unchanged Sucralfate (sucralfate 1 gm oral tablet) 1 tab(s) Oral Twice a day pm 10/29 ?? What How Much When Comments Stop Taking Acetaminophen (acetaminophen 500 mg oral tablet) 2 tab(s) Oral Daily as needed for for fever Stop Taking Cetirizine (cetirizine 5 mg oral tablet) 5 Milligram Oral Daily Stop Taking Cholecalciferol (Vitamin D3 2000 intl units oral tablet) 1 tab(s) Oral Daily Stop Taking Escitalopram (escitalopram 5 mg oral tablet) 1 tab(s) Oral Daily Stop Taking Ferrous Fumarate (ferrous fumarate 300 mg oral tablet) 1 tab(s) Oral Daily Duration: 30 Days Stop Taking Glucose (Dex4 Tropical Blast 45% oral gel) 15 gram Oral Once as needed for as needed for low blood sugar Stop Taking Insulin Lispro (insulin lispro 100 units/ mL injectable solution) 2-8 units Subcutaneous Injection 3 times a day before meals 120 - 149 ?? 2 units 150 - 179 ?? 3 units 180 - 209 ?? 4 units 210 - 239 ?? 6 units 240 - 269 ?? 7 units 270 - 299 ?? 8 units Call MD if greater than 300 ?? Stop Taking Lactulose (lactulose 10 gm/ 15 ml oral syrup) 45 Milliliter Oral 3 times a day Titrate up to 2-3 bowel movements per day or until she has a bowel movement. ?? Stop Taking Ondansetron (ondansetron 4 mg oral tablet, disintegrating) 1 tab(s) Oral Every 8 hours as needed for Nausea & Vomiting Stop Taking Polyethylene Glycol 3350 (MiraLax oral powder for reconstitution) 17 gram Oral 2 times a day before breakfast and dinner dissolve in water before taking ?? Stop Taking Rifaximin (rifAXIMin 550 mg oral tablet) 1 tab(s) Oral Twice a day Stop Taking Trazodone (traZODone 50 mg oral tablet) 1 tab(s) Oral Daily at supper Prescription Given During Visit No new medications prescribed at time of discharge.?? Laboratory Results Below is a partial list of the most recent Laboratory test results done prior to this discharge. You may have had other tests and procedures not included in this list. Please discuss all test resultswith your provider. Est Creatinine Clearance - 17.94 mL/min (10/30/2023) Alcohol Level (10/28/2023) ???Ethanol, Serum or Plasma - NONE DETECTED Alk Phos (10/28/2023) ???Alkaline Phosphatase - 323 units/L ALT (10/28/2023) ???ALT (SGPT) - 29 units/L Ammonia Venous (10/28/2023) ???Ammonia, Venous - 25 ??mole/L AST (10/28/2023) ???AST (SGOT) - 49 units/L BASE EXCESS POC CARTRIDGE (10/28/2023) ???Base Excess (POC) POC Cartridge - NEGATIVE 1 Basic Metabolic Panel (10/30/2023) ???Sodium - 140 mmol/L???Potassium - 4.4 mmol/L???Chloride - 108 mmol/L???Bicarbonate Level - 20 mmol/L???Anion Gap - 12???Glucose Level - 136 mg/dL???BUN - 36 mg/dL???Creatinine-Blood - 2.06 mg/dL???Estimated GFR Creatinine - 25 ML/MIN/1.73 M2???Calcium - 8.6 mg/dL BUN (10/28/2023) ???BUN - 42 mg/dL CALCIUM IONIZED POC CART (10/28/2023) ???Ionized Calcium (POC) POC Cartridge - 1.17 mmol/L Calcium Level (10/28/2023) ???Calcium - 9.0 mg/dL CBC (10/29/2023) ???WBC - 7.0 k/mm3???RBC - 4.03 m/mm3???Hgb - 11.6 Gm/dL???Hct - 36.9 %???MCV - 91.6 femtoliters???MCH - 28.8 pg???MCHC - 31.4 g/dL???Platelet Count - 189 k/mm3???RDW-SD - 48.7 femtoliters???MPV - 11.7 femtoliters???Nucleated RBC (Automated) - 0.0 #/100 WBC'S???Abs. NRBC - 0.0 k/mm3 CBC w/ Differential (10/28/2023) ???WBC - 8.6 k/mm3???RBC - 3.66 m/mm3???Hgb - 10.6 Gm/dL???Hct - 34.0 %???MCV - 92.9 femtoliters???MCH - 29.0 pg???MCHC - 31.2 g/dL???Platelet Count - 251 k/mm3???RDW-SD - 48.6 femtoliters???MPV - 11.3 femtoliters???Nucleated RBC (Automated) - 0.0 #/100 WBC'S???Abs. NRBC - 0.0 k/mm3???Abs. Neut - 4.5 k/mm3???Abs. Lymph - 3.1 k/mm3???Abs. Traill - 0.7 k/mm3???Abs. Eo - 0.3 k/mm3???Abs. Baso - 0.0 k/mm3???Neut % - 52.2 %???Lymph % - 36.1 %???Traill % - 7.7 %???Eos % - 3.0 %???Baso % - 0.5 %???Imm Gran - 0.5 %???Abs. Imm Gran - 0.0 k/mm3 Creatinine (10/28/2023) ???Creatinine-Blood - 2.09 mg/dL???Estimated GFR Creatinine - 25 ML/MIN/1.73 M2 Electrolytes (10/28/2023) ???Sodium - 145 mmol/L???Potassium - 4.2 mmol/L???Chloride - 110 mmol/L???Bicarbonate Level - 24 mmol/L???Anion Gap - 11 Glucose Level (10/28/2023) ???Glucose Level - 36 mg/dL GLUCOSE POC (10/30/2023) ???Glucose, POC - 174 mg/dL GLUCOSE POC CARTRIDGE (10/28/2023) ???Glucose (POC) POC Cartridge - 40 HEMATOCRIT POC CARTRIDGE (10/28/2023) ???Hematocrit (POC) POC Cartridge - 31 % Hemoglobin A1C (Monitoring) (10/30/2023) ???Hemoglobin A1C (Monitoring) - 7.5 % HEMOGLOBIN POC CARTRIDGE (10/28/2023) ???Hemoglobin (POC) POC Cartridge - 10.5 Gm/dL High??Sensitivity??Troponin T (10/28/2023) ???High Sensitivity Troponin (HSTnT) - 21 ng/L INR (10/28/2023) ???INR - 1.0???Protime (PT) - 10.9 seconds Lactate Level (10/28/2023) ???Lactate - 1.5 mmol/L Lipase (10/28/2023) ???Lipase - 31 units/L Magnesium Level (10/28/2023) ???Magnesium - 2.2 mg/dL POTASSIUM POC CARTRIDGE (10/28/2023) ???Potassium (POC) POC Cartridge - 5.0 mmol/L SODIUM POC CARTRIDGE (10/28/2023) ???Sodium (POC) POC Cartridge - 143 mmol/L T4 Free (10/29/2023) ???Free T4 - 0.99 ng/dL Total Bilirubin (10/28/2023) ? ?Bilirubin, Total - <0.2 mg/dL Troponin T, High Sensitivity (10/29/2023) ???High Sensitivity Troponin (HSTnT) - 19 ng/L TSH (10/28/2023) ???TSH - 9.75 uIU/mL Urinalysis w/hold for Urine Culture (10/28/2023) ???Appear/Color, Urine - LIGHT YELLOW???Specific [place], Urine - 1.013???pH, Urine - 6.0???Albumin, Urine - 2+???Glucose, Urine - TRACE???Ketones, Urine - NEGATIVE???Bilirubin, Urine - NEGATIVE???Hemoglobin, Urine - NEGATIVE???Nitrite, Urine - NEGATIVE???Leukocyte, Urine - NEGATIVE???Urobilinogen - NORMAL? ?WBC's, Urine - 2 /HPF? ?RBC's, Urine - <1 /HPF? ?Squamous Epith - 1 /HPF? ?Hyaline Cast - 1 LPF???Mucus - SLIGHT???Hold Urine Culture - Testing available 48 hours from time of collection. VBG POC CARTRIDGE (10/28/2023) ???pH Venous (POC) POC Cartridge - 7.35???pCO2 Venous (POC) POC Cartridge - 44.0 mm Hg???pO2 Venous(POC) POC Cartridge - 39 mm Hg???Est Bicarbonate (POC) POC Cartridge - 24.6 mmol/L???% O2 Sat Venous (POC) POC Cartridge - 71???Specimen Type - Blood Gas - VENOUS Allergies (NKA means No Known Allergies) NKA Problems Active Problems??(15) Arthritis?? Asthma?? Brain TIA?? CAD (coronary artery disease)?? Chronic anemia?? Cirrhosis?? CKD (chronic kidney disease)?? Dementia?? Depression?? DM2 (diabetes mellitus, type 2)?? HTN (hypertension)?? Hyperkalemia?? Hyperlipidemia?? Insomnia?? Obese class I?? Education Materials Below is the list of Educational Leaflet Providered with your Discharge Instructions. WebMD Ignite Patient Education - [id number]: Self-Care for Low Blood Sugar (Hypoglycemia)?? Valuables and Belongings I fully understand and agree that [facility] accepts no responsibility for all my [...] patient Date for Pt to Sign Valuables/Belongings: 10/30/23 07:18:00 ?? Other Discharge Information ? Case Management Discharge Plan?? Discharge Plan?? Discharge Agency Information?? Discharge Level of Care at Discharge: Homehealth/VNA Name of Agency #1: [facility] [phone] Discharge Nursing Homes/Rehab Facilities: [facility] Service Categories #1: Physical Therapy, Detention Discharge VNA/Hospice/Home Care: [facility] [phone] Service Comments #1: [facility] will contact you to resume services for jail and physical therapy. [facility] [phone] ?? Pulmonary Rehab Status?? Pulmonary Rehab Discharge [...] are strongly encouraged to quit. Please call [facility] Link at [phone] or [phone] ([phone]) or log in to [email or web address] for referrals to smoking cessation programs. ?? 059 Suicide & Crisis Lifeline is available 24/11 if you or someone you know needs to find a reason to keep living. By calling 960 you'll be connected to a skilled, trained counselor at a crisis center in your area. INPATIENT DISCHARGE INSTRUCTIONS SIGNATURE GLADIS MELO Location:[facility] Registration Date and Time:10/28/2023 18:10 EDT Primary Care Physician: Heber FRANKLIN, Kathy, Attending Physician: Lyle Lal MDishna, I GLADIS GILBERT, have received the above patient education materials/instructions and have verbalized understanding. If ambulance or transport services are being used I further acknowledge being givena choice of service. ?? If you need to contact me, please call me at this number: . Patient/Supervisor [employer] Name: Patient/Supervisor [employer] Signature: Relationship to Patient: Witness Name/Signature: Date: * Do Deidra REIS T: PERFORM Event Display: Patient Education Leaflets Authored Date: [id number]: Self-Care for Low Blood Sugar (Hypoglycemia) ?? [place]: [employer]??car (Hipoglicemia) - Video Para renee el video ir a esta direccion web: [email or web address]://[email or web address] kyle Enrique QR con el telefono inteligente Last Reviewed Date: 2020 ?? [employer]. All rights reserved. This information is not intended as a substitute for professional medical care. Always follow your healthcare professional's instructions. ?? Patient Care team information Care Team Personnel Name: Aster Pena RN Position: [facility] RN Member Role: Primary Care Nurse Name: Bella Alexander RN Position: [facility] RN Member Role: Primary Care Nurse Name: Dunia Phillip RN Position: [facility] ED RN W/OE and Tasks Member Role: Primary Care Nurse Name: Lisette Trejo RN Position: [facility] RN Member Role: Primary Care Nurse Name: Jessica Canseco RN Position: [facility] RN Member Role: Primary Care Nurse Name: Shauna Le RN Position: [facility] SN RN Member Role: Primary Care Nurse Name: Erica Archer RN Position: [facility] RN Supv Member Role: Primary Care Nurse Name: Vickie Lyons Position: [facility] Outreach Member Role: Lifetime Consulting Physician Name: Alba Small RN Position: [facility] RN Member Role: Primary Care Nurse Name: Martine Carr RN Position: [facility] RN Member Role: Primary Care Nurse Name: Indira Monsalve RN Position: [facility] RN Member Role: Primary Care Nurse Name: Chucho Carroll MD Position: [facility] Renal MD Member Role: Lifetime Consulting Physician Address: Address: [address] [place], [place] [address] [place] [address]- Name: Loren Mcmanus RN Position: [facility] RN Member Role: Primary Care Nurse Name: Mp Zarco RN Position: [facility] RN Member Role: Primary Care Nurse Name: Kathy Buck MD Position: [facility] Outreach Member Role: PCP Address: Address: [address] [place] [address]- Name: Blayne Hughes RN Position: [facility] RN Member Role: Primary Care Nurse Name: Meena Camacho RN Position: [facility] RN Member Role: Primary Care Nurse Name: Norma Art RN Position: [facility] RN Member Role: Primary Care Nurse Name: Mecca Boyd RN Position: [facility] RN Member Role: Primary Care Nurse Name: Katie Evans NP Position: [facility] PCO Associate Professional Member Role: Primary Care Nurse Address: Address: [address] [place], [place] [address] Name: Rosendo Suarez RN Position: S RN Member Role: Primary Care Nurse Name: Sierra Gray RN Position: S RN Member Role: Primary Care Nurse Name: Leonor Mccormick RN Position: S RN Member Role: Primary Care Nurse Name: Hortensia Garrison Position: S Outreach Member Role: Lifetime Consulting Physician Name: Paige Morris RN Position: S RN Member Role: Primary Care Nurse Name: Trini Starr RN Position: S RN Member Role: Primary Care Nurse Name: Amanda Dunne RN Position: S RN Member Role: Primary Care Nurse Name: Marcie Rhodes RN Position: [facility] RN Member Role: Primary Care Nurse Name: Susie Monson RN Position: S RN Member Role: Primary Care Nurse Name: Shante Devi LPN Position: S RN Member Role: Primary Care Nurse Care Team Related Persons Name: PAIGE TALBERT Address: [place] [address] Name: CAMRON VELASQUEZ Address: [place] [address] Name: RITO SETHI Address: home [address] [address]
--- OUTSIDE RECORDS SUMMARY | 2023-12-05 21:36 | XMS_ITS | Continuity of Care Document ---
Author Organization [facility] ter Address [address] [place] [address]- Care Team Providers Care Package Reinspector Name Role Phone Heber FRANKLIN, Kathy Primary Care Physician Encounter [facility] Date(s): 11/15/23 - 11/16/[address] [address]- Encounter Diagnosis Atrophic vaginitis(Final) - 11/16/23 Discharge Disposition: A-D/C Home Attending Physician: Jim Flores MD Admitting Physician: Jim Flores MD Referring Physician: Not on Staff, Referring MD Allergies, Adverse Reactions, Alerts No Known Allergies Immunizations Given and Recorded Vaccine Date Status Refusal Reason SARS-CoV-2 mRNA ([id number]) vax 07/09/21 Recorded SARS-CoV-2 (COVID-19) Ad26 vaccine 10/15/20 Record ed Medications aspirin 81 mg oral delayed release tablet 81 mg, 1, tablet, By Mouth, Daily Start Date: 12/15/18 Status: Ordered Cleocin Vaginal 2% cream 1 applicator, Vaginally, Daily at bedtime, # 40 Gm, 0 Refills, Maintenance, 11/16/23 0:28:00 EDT, Cream, [id number], Partial fill upon patient request if the prescription is for a schedule IIopioid drug., 1 applicator Vaginally Daily at bedti... Start Date: 11/16/23 Status: Ordered fluticasone 50 mcg/inh nasal spray 1 sprays, Nares, Both, 2 times a day, # 16 Gm, 0 Refills, Maintenance, 12/01/20 4:52:00 EDT, [place],Partial fill upon patient request if the prescription [...] 0 Refills, Maintenance, 11/09/23 12:46:00 EDT, Tablet, [facility], Partial fill upon patient [...] capsule, 5 Refills, Maintenance, 08/03/22 10:00:00 EDT, [id number], 144.8, cm, 04/14/22 12:40:00 EST, Height, 67, kg, 03/04/22 21:45:00 EDT, Dry Weight Start Date: 08/03/22 Status: Ordered Norvasc 5 mg oral tablet 5 mg, 1, tablet, By Mouth, Daily, # 30 tablet, Refills 2, Tot. Refills 2, Maintenance, 10/26/23 10:20:00 EDT, Route to Pharmacy Electronically, [id number], Partial fill upon patient request if the [...] Exam Date Time Procedure Performing Provider Status 11/16/23 3:19 AM Chest 2 Views Frontal and Lat Judie Bright; Auth (Verified) Notes: (Chest 2 Views Frontal and Lat) Reason For Exam: Cough RESULT: Chest 2 Views Frontal and Lat Chest 2 Views Frontal and Lat Hx of Present Illness: BIBA coming from home with abd pain and burning on urination. pt has frequent UTI. pt urinated on way here and urine had odorous smell; Reason: Cough; Clinical Question(s): Pneumonia COMPARISON: 10/23/2023 FINDINGS: LINES AND TUBES: None. LUNGS AND PLEURA: Low lung volumes with mild basilar atelectasis. Lungs are otherwise clear with no consolidation. No pleural effusion. No pneumothorax. HEART, MEDIASTINUM AND ANIKET: Heart is normal in size. Normal mediastinal and hilar contour. BONES AND SOFT TISSUES: No acute abnormality. IMPRESSION: No acute abnormality. WSN: [id number] Ordering Physician: Bailey Reyes Dictated By: Jeannette Dockery MD Dictated Date/Time: 11/16/23 7:42 am Reviewed By: Sarkis FRANKLIN , Jeannette Signed By: Jeannette Dockery MD Signed Date/Time: 11/16/23 7:42 am Transcribed By: KEYSHA Transcribed Date/Time: 11/16/23 7:41 am Vital Signs Most recent to oldest [Reference Range]: 1 2 3 Oxygen Saturation [94-100 %] 100 % (11/16/23 10:25 PM) 98 % (11/16/23 9:00 AM) 99 % (11/16/23 5:00 AM) Pulse Rate [55-90 bpm] 71 bpm (11/16/23 10:25 PM) 61 bpm (11/16/23 9:00 AM) 55 bpm (11/16/23 5:00 AM) Blood Pressure [90-138/55-84 mm Hg] 141/62mm Hg *H* (11/16/23 10:25 PM) 133/76mm Hg (11/16/23 9:00 AM) 126/48mm Hg (11/16/23 5:00 AM) Respiratory Rate [16-30 br/min] 16 br/min (11/16/23 10:25 PM) 16 br/min (11/16/23 9:00 AM) 18 br/min (11/16/23 5:00 AM) Temperature [96.8-100.4 DegF] 98.3 DegF (11/15/23 9:26 PM) Mode of Delivery (Oxygen) Room air (11/16/23 10:25 PM) Room air (11/16/23 9:00 AM) Room air (11/16/23 5:00 AM) Temperature Route Oral (11/15/23 9:26 PM) Social History Social History Type Response Smoking Status Never (less than 100 in lifetime) entered on: 06/27/21 Sex Female EKG study * Event Display: ECG 12-Lead Authored Date: Please click on pdf link to open report * Event Display: ECG 12-Lead Authored Date: Ventricular Rate: 57 BPM Atrial Rate: 57 BPM P-R Interval: 144 ms QRS Duration: 84 ms Q-T Interval: 444 ms QTC Calculation(Bazett): 432 ms P [place]: 29 degrees R [place]: 26 degrees T [place]: 69 degrees Sinus bradycardia Otherwise normal ECG When compared with ECG of 06-NOV-2023 18:41, No significant change was found Confirmed by JAYLEN BREAUX MD ([id number]) on 11/16/2023 8:12:42 AM [place]: JAYLEN BREAUX MD Note * Yohan Perry MD: PERFORM Event Display: Patient Education Leaflets Authored Date: [id number] Atrophic Vaginitis ?? [id number] Vaginitis Atr??fica?? [Vaginitis, Atrophic] La vaginitis atr??fica consiste en la p??rdida de espesor de las faulkner de la vagina, y ocurre cuando el organismo produce cristobal cantidad insuficiente de estr??christofer (un tipo de hormona). En la mayor??a de los casos, la menopausia, as?? adan la extirpaci??n quir??rgica de los ovarios, causan cristobal reducci??n del nivel de estr??christofer. El amamantamiento tambi??n puede producir cristobal reducci??n del nivel de esta hormona. Entre los s??ntomas de la vaginitis atr??fica se encuentran: resecamiento, irritaci??n, escozor o comez??n en la vagina, as?? adan secreci??n vaginal. Puede lizette molestias e incluso dolor madison las relaciones sexuales. Despu??s del coito, puede lizette sangrado de la pared vaginal. En algunos casos tambi??n puede lizette escozor o dolor al orinar. Tratamientos La vaginitis atr??fica se trata con kamini o m??s de los siguientes m??todos: ??? Cremas, lociones y lubricantes vaginales. Estos productos ayudan a aliviar la sequedad vaginal y pueden adquirirse sin receta en la secci??n de higiene personal de la mayor??a de las farmacias. Las cremas y lociones se usan diariamente para ayudar a mantener humedecida la vagina. Los lubricantes ayudan a reducir la sequedad y el dolor madison las relaciones sexuales. Use lubricantes acuosos. No use vaselina, aceites minerales u otros tipos de aceite, ya que aumentan la probabilidad de infecci??n. ??? Terapia hormonal. La terapia hormonal aumenta el nivel de estr??christofer en el cuerpo, lo cual puede ayudar a controlar o aliviar los s??ntomas. La terapia hormonal puede administrarse en pastillas o maria e en forma de loci??n, crema, anillo en la vagina o parche en la piel. Los riesgos y ventajas de la terapia hormonal moe??an de cristobal terri a otra. Consulte esto con shannon m??dico, ya que no todas las mujeres pueden recibir terapia hormonal. No es necesario que se abstenga de tener relaciones sexuales; de hecho, el sexo ayuda a mantener sanos los tejidos vaginales. Para evitar las molestias madison las relaciones sexuales, use lubricantes acuosos. Prevenci??n De Infecciones La vaginitis atr??fica aumenta la probabilidad de infecciones vaginales y de las v??as urinarias. Para ayudar a reducir giovanni riesgo: ??? Mantenga limpia la amber genital. Al ba??arse, lave la parte exterior de la vagina con jab??n suave y agua. Limpie suavemente los pliegues de la vagina. ??? Despu??s de defecar, l??mpiese de adelante hacia atr??s. ??? No use duchas vaginales a menos que el m??dico se lo indique. ??? No use papelhigi??caio perfumado, esprays vaginales perfumados o tampones perfumados. ??? No use ropa demasiadoajustada en la amber genital, adan pantimedias o cualquier tipo de pantal??n ajustado. Use ropa interior de algod??n y c??mbiela todos los d??as. Colby cristobal VISITA DE CONTROL seg??n le indique el m??dico o el personal del centro. Obtenga Atenci??n M??dica Inmediata en cualquiera de los siguientes casos: ??? Fiebre de 100.4??F (38??C) o superior, o seg??n le indique shannon proveedor de atenci??n m??dica ??? Los s??ntomas no desaparecen (o empeoran) despu??s del tratamiento ??? Hinchaz??n o dolor en la amber vaginal ??? Sangrado (no menstrual) o secreci??n maloliente en la amber vaginal ??? Dolor, escozor o dificultad para orinar ??? Aparici??n de lesiones abiertasalrededor de la vagina Last Reviewed Date: 2016 ?? [id number] [employer]. Todos los derechos reservados. Esta informaci??n no pretende sustituir la atenci??n m??dica profesional. S??lo shannon m??dico puede diagnosticar y tratar un problema de domenica. ?? Patient Care team information Care Team Personnel Name: Aster Pena RN Position: [facility] RN Member Role: Primary Care Nurse Name: Bella Alexander RN Position: [facility] RN Member Role: Primary Care Nurse Name: Dunia Phillip RN Position: [facility] ED RN W/OE and Tasks Member Role: Primary Care Nurse Name: Lisette Trejo RN Position: [facility] RN Member Role: Primary Care Nurse Name: Jessica Canseco RN Position: [facility] RN Member Role: Primary Care Nurse Name: Shauna Le RN Position: [facility] SN RN Member Role: Primary Care Nurse Name: Erica Archer RN Position: [facility] RN Supv Member Role: Primary Care Nurse Name: Vickie Lyons Position: [facility] Outreach Member Role: Lifetime Consulting Physician Name: Alba Small RN Position: [facility] RN Member Role: Primary Care Nurse Name: Martine Carr RN Position: [facility] RN Member Role: Primary Care Nurse Name: Indira Monsalve RN Position: [facility] RN Member Role: Primary Care Nurse Name: Frederick Encarnacion RN Position: [facility] RN Member Role: Primary Care Nurse Name: Chucho Carroll MD Position: [facility] Renal MD Member Role: Lifetime Consulting Physician Address: Address: [address] [place], [place] [address] [place] [address]- [place] Name: Loren Mcmanus RN Position: [facility] RN Member Role: Primary Care Nurse Name: pM Zarco RN Position: [facility] RN Member Role: Primary Care Nurse Name: Kathy Buck MD Position: [facility] Outreach Member Role: PCP Address: Address: [address] [place] [address]- [place] Name: Blayne Hughes RN Position: [facility] RN Member Role: Primary Care Nurse Name: Meena Camacho RN Position: [facility] RN Member Role: Primary Care Nurse Name: Norma Art RN Position: [facility] RN Member Role: Primary Care Nurse Name: Mecca Boyd RN Position: [facility] RN Member Role: Primary Care Nurse Name: Katie Evans NP Position: [facility] PCO Associate Professional Member Role: Primary Care Nurse Address: Address: [address] [facility] [place] [address]- [place] Name: Rosendo Suarez RN Position: [facility] RN Member Role: Primary Care Nurse Name: Sierra Gray RN Position: [facility] RN Member Role: [...] Care Nurse Name: Amanda Dunne RN Position: [facility] RN Member Role: Primary Care Nurse Name: Marcie Rhodes RN Position: [facility] RN Member Role: Primary Care Nurse Name: Susie Monson RN Position: [facility] RN Member Role: Primary Care Nurse Name: Shante Devi LPN Position: [facility] RN Member Role: Primary Care Nurse Care Team Related Persons Name: PAIGE TALBERT Address: [place] [address] Name: CAMRON VELASQUEZ Address: [place] [address] Name: ANTIONE SETHI Address: home [address] [place] [id number]
--- OUTSIDE RECORDS SUMMARY | 2023-12-05 21:36 | XMS_ITS | Continuity of Care Document ---
Author Organization [facility] ter Address [address] [place] [address]- Care Team Providers Care Plastics Technician Name Role Phone Marcin FRANKLIN, Teresa Watters Primary Care Physician Encounter [facility] Date(s): 11/22/23 - 12/01/[address] [address]- Encounter Diagnosis Dementia(Final) - 11/22/23 Femoral neck fracture(Final) - 11/22/23 Femoral neck fracture(Final) - 11/23/23 Discharge Disposition: A-Transfer SNF Attending Physician: Earl Shepard MD Admitting Physician: Leo FRANKLIN, Ofelia Joyner Referring Physician: Not on Staff, Referring MD Allergies, Adverse Reactions, Alerts Substance Reaction Severity Status morphine patient sensitive to morphine Active Immunizations Given and Recorded Vaccine Date Status Refusal Reason SARS-CoV-2 mRNA ([id number]) vax 07/09/21 Recorded SARS-CoV-2 (COVID-19) Ad26 vaccine 10/15/20 Record ed Medications aspirin 81 mg oral delayed release tablet 81 mg, 1, tablet, By Mouth, Daily Start Date: 12/15/18 Status: Ordered ferrous sulfate 325 mg oral tablet 1 tablet = 325 mg, By Mouth, Daily, # 90 tablet, 0 Refills, Maintenance, 11/22/23 12:37:00 EDT, Tablet, Partial fill upon patient request if the prescription is for a schedule II opioid drug. Start Date: 11/22/23 Status: Ordered fluticasone 50 mcg/inh nasal spray 1 sprays, Nares, Both, 2 times a day, # 16 Gm, 0 Refills, Maintenance, 12/01/20 4:52:00 EDT, Bud,Partial fill upon patient request if the prescription is for a schedule II opioid drug. Start Date: 12/01/20 Status: Ordered Heparin 1 mL = 5,000 units, Subcutaneous Injection, 3 times a day, 0 Refills, Maintenance, 11/30/23 15:57:00 EDT, Injection, Partial fill upon patient request if the prescription is for a schedule II opioid drug. Start Date: 11/30/23 Status: Ordered insulin lispro 100 u/ml subcutaneous injection 2-12 units, Subcutaneous Injection, 3 times a day before meals, << Sliding Scale Comments >> 150 - 199 2 units Call if less than 70 200 - 249 4 units 250 - 299 6 units 300 - 349 8 units 350 - 399 10 units 400 - 449 12 units Call... Start Date: 11/30/23 Status: Ordered Januvia 50 mg oral tablet 1 tablet = 50 mg, By Mouth, Daily, # 30 tablet, 0 Refills, Maintenance, 11/09/23 12:46:00 EDT, Tablet, [facility], Partial fill upon patient request if [...] capsule, 5 Refills, Maintenance, 08/03/22 10:00:00 EDT, [facility] [id number], 144.8, cm, 04/14/22 12:40:00 EST, Height, 67, kg, 03/04/22 21:45:00 EDT, Dry Weight Start Date: 08/03/22 Status: Ordered melatonin 3 mg oral tablet = 3 mg, By Mouth, Daily at bedtime, PRN Insomnia, 0 Refills, Maintenance, 11/30/23 15:52:00 EDT, Tablet, Partial fill upon patient request if the prescription is for a schedule II opioid drug. Start Date: 11/30/23 Status: Ordered MiraLax Powder 1 pack/packet = 17 Gm, By Mouth, Daily, PRN Constipation, 0 Refills, Maintenance, 11/30/23 15:52:00EDT, Powder, Partial fill upon patient request if the prescription is for a schedule II opioid drug. Start Date: 11/30/23 Status: Ordered Norvasc 5 mg oral tablet 5 mg, 1, tablet, By Mouth, Daily, # 30 tablet, Refills 2, Tot. Refills 2, Maintenance, 10/26/23 10:20:00 EDT, Route to Pharmacy Electronically, [facility]/pharmacy #[id number], Partial fill upon patient request if the prescription is for a schedule II opioid drug.... Start Date: 10/26/23 Stop Date: 01/24/24 Status: Ordered Norvasc 5 mg oral tablet 5 mg, Tablet, By Mouth, 12/01/23 8:00:00 EDT Start Date: 12/01/23 Stop Date: 12/01/23 Status: Completed oxyCODONE 5 mg oral tablet 5 mg, Tablet, By Mouth, Every 6 hours, PRN for Pain , Moderate, Routine, 11/22/23 8:10:00 EDT Start Date: 11/22/23 Stop Date: 12/01/23 Status: Discontinued oxyCODONE 5 mg oral tablet 5 mg, 1, tablet, By Mouth, Every 6 hours, PRN, # 12 tablet, Refills 0, Tot. Refills 0, Maintenance,Pain , Moderate, 11/30/23 11:00:00 EDT, Print Requisition, Partial fill upon patient request if theprescription is for a schedule II opioid drug. Start Date: 11/30/23 Status: Ordered Protonix 40 mg oral delayed release tablet 1 tablet = 40 mg, By Mouth, Daily, # 30 tablet, 0 Refills, Maintenance, 06/07/21 9:15:00 EST, EC Tablet, 152, cm, 06/07/21 7:45:00 EST, Height, 65.4, kg, 06/05/21 0:21:00 EST, Dry Weight Start Date: 06/07/21 Status: Ordered senna 187 mg oral tablet 1 tablet = 8.6 mg, By Mouth, 2 times a day, PRN Constipation, 0 Refills, Maintenance, 11/30/23 15:52:00 EDT, Tablet, Partial fill upon patient request if the prescription is for a schedule II opioid drug. Start Date: 11/30/23 Status: Ordered sodium bicarbonate 650 mg oral tablet = 650 mg, By Mouth, 2 times a day, 0 Refills, Maintenance, 11/30/23 15:57:00 EDT, Tablet, Partial fill upon patient request if the prescription is for a schedule II opioid drug. Start Date: 11/30/23 Status: Ordered sucralfate 1 gm oral tablet [...] Exam Date Time Procedure Performing Provider Status 11/26/23 5:53 PM C-Arm < 1 Hour Jorge Newman; Betty (Ve rified) Notes: (C-Arm < 1 Hour) Reason For Exam: left hip FX ORIF RESULT: C-Arm < 1 Hour Hip Comp 2 Views Left, C-Arm < 1 Hour INDICATION: Reason: left hip FX ORIF COMPARISONS: None TECHNIQUE: Fluoroscopy support was provided. There was no radiologist in attendance. FLUOROSCOPY TIME: 41.6 seconds EXPOSURE: 2.2306 Gycm2 (Dose Area Product) TECHNOLOGIST TIME: 40 minutes FINDINGS: 4 images submitted showing ORIF of the left hip fracture. Please refer to operative note for full details. IMPRESSION: See above. WSN: [id number] Ordering Physician: Madhuri Garza Dictated By: Robert Pierson MD Dictated Date/Time: 11/27/23 8:42 am Reviewed By: Robert Pierson MD Signed By: Robert Pierson MD Signed Date/Time: 11/27/23 8:42 am Transcribed By: KEYSHA Transcribed Date/Time: 11/27/23 8:42 am * Exam Date Time Procedure Performing Provider Status 11/26/23 5:53 PM XR Hip Comp 2 Views Left Jorge Newman ; Betty (Verified) Notes: (XR Hip Comp 2 Views Left) Reason For Exam: left hip FX ORIF RESULT: Hip Comp 2 Views Left Hip Comp 2 Views Left, C-Arm < 1 Hour INDICATION: Reason: left hip FX ORIF COMPARISONS: None TECHNIQUE: Fluoroscopy support was provided. There was no radiologist in attendance. FLUOROSCOPY TIME: 41.6 seconds EXPOSURE: 2.2306 Gycm2 (Dose Area Product) TECHNOLOGIST TIME: 40 minutes FINDINGS: 4 images submitted showing ORIF of the left hip fracture. Please refer to operative note for full details. IMPRESSION: See above. WSN: [id number] Ordering Physician: Madhuri Garza Dictated By: Robert Pierson MD Dictated Date/Time: 11/27/23 8:42 am Reviewed By: Robert Pierson MD Signed By: Robert Pierson MD Signed Date/Time: 11/27/23 8:42 am Transcribed By: KEYSHA Transcribed Date/Time: 11/27/23 8:42 am * Exam Date Time Procedure Performing Provider Status 11/22/23 3:28 AM XR Femur 2 Views Right Kaiser Balderas; Auth (Verified) Notes: (XR Femur 2 Views Right) Reason For Exam: with Pain;Trauma RESULT: Femur 2 Views Right Femur 2 Views Right, 4 views Hx of Present Illness: from home fall tonight, n v, L hip pain, dneis LOC or headstrike; Reason: Trauma; with Pain; Clinical Question(s): Fracture COMPARISON: Pelvis 11/22/2023 and femur 06/27/2021. FINDINGS: AP and crosstable lateral views of the right femur obtained. Degenerative changes are seen at the hip joints. No acute fractures or dislocations. Extensive vascular calcification is noted throughout the femoral region. IMPRESSION: No acute fracture or dislocation right femur. WSN: [id number] Ordering Physician: Jeanne John Dictated By: Marii Méndez MD, I Dictated Date/Time: 11/22/23 7:18 am Reviewed By: Marii Méndez MD, I Signed By: Marii Méndez MD, I Signed Date/Time: 11/22/23 7:18 am Transcribed By: KEYSHA Transcribed Date/Time: 11/22/23 7:17 am * Exam Date Time Procedure Performing Provider Status 11/22/23 3:28 AM XR Femur 2 Views Left Edmundo Balderas; Betty (Verified) Notes: (XR Femur 2 Views Left) Reason For Exam: with Pain;Trauma RESULT: Femur 2 Views Left Femur 2 Views Left, 4 views Hx of Present Illness: from home fall tonight, n v, L hip pain, dneis LOC or headstrike; Reason: Trauma; with Pain; Clinical Question(s): Fracture COMPARISON: 06/27/2021 FINDINGS: AP and crosstable lateral views of the left femur obtained. Comminuted angulated left intertrochanteric/likely subcapital femoral neck fracture. The remainder of the left femur is intact. Crosstable lateral view nondiagnostic due to habitus. Extensive vascular calcifications are noted. IMPRESSION: Comminuted angulated left intertrochanteric femoral neck fracture, likely with extends into the femoral neck. If clarification is needed, CT scan is recommended. WSN: [id number] Ordering Physician: Jeanne John Dictated By: Marii Méndez MD, I Dictated Date/Time: 11/22/23 7:17 am Reviewed By: Marii Méndez MD, I Signed By: Marii Méndez MD, I Signed Date/Time: 11/22/23 7:17 am Transcribed By: KEYSHA Transcribed Date/Time: 11/22/23 7:14 am * Exam Date Time Procedure Performing Provider Status 11/22/23 3:28 AM Pelvis 1 or 2 Views Nadeem Balderas; Betty (Verified) Notes: (Pelvis 1 or 2 Views) Reason For Exam: With Pain;Trauma RESULT: Pelvis 1 or 2 Views Pelvis, AP INDICATION: Hx of Present Illness: from home fall tonight, n v, L hip pain, dneis LOC or headstrike; Reason: Trauma; With Pain; Clinical Question(s): Fracture COMPARISON: 12/02/2021 FINDINGS: Bony pelvis: Intact. No fractures. Hip joints: Degenerative change in both hips. Comminuted angulated left intertrochanteric femur fracture, possible extent subcapital region. IMPRESSION: Comminuted angulated left intertrochanteric femur fracture, possible extent to the subcapital region. Clarification is needed, CT scan is recommended. WSN: [id number] Ordering Physician: Jeanne John Dictated By: Marii Méndez MD, I Dictated Date/Time: 11/22/23 7:14 am Reviewed By: Marii Méndez MD, I Signed By: Marii Méndez MD, I Signed Date/Time: 11/22/23 7:14 am Transcribed By: KEYSHA Transcribed Date/Time: 11/22/23 7:11 am * Exam Date Time Procedure Performing Provider Status 11/22/23 3:[address] Abd/Pelvis W/ IV Contrast Only Jerry Wisdom; Betty (Verified) Notes: (CT Abd/Pelvis W/ IV Contrast Only) Reason For Exam: LLQ abdominal pain;Other: RESULT: CT Abd/Pelvis W/ IV Contrast Only CT Chest W/ Contrast, CT Abd/Pelvis W/ IV Contrast Only INDICATION: Hx of Present Illness: from home fall tonight, n v, L hip pain, dneis LOC or headstrike; Reason: Other:; Pulmonary Lesion; Clinical Question(s): Interstitial Alveolar Infiltration TECHNIQUE: Helical CT scan of the chest, abdomen, and pelvis with IV contrast, formatted in 3 planes. 100 cc of Omnipaque 300 was administered intravenously. This study was performed without oral contrast. Weight-based protocol was performed using automatic exposure control. CTDIvol Body: 13.80 mGy, DLP Body: 879 mGy*cm. COMPARISON: CT chest 06/04/2022, CT abdomen and pelvis 10/21/2023 FINDINGS: Manager Global view findings, lines and tubes: None. Trachea and airways: Patent without evidence of tracheal or endobronchial lesion. Lungs and pleura: Suboptimal evaluation of the lung field in detail secondary to motion. No effusion or pneumothorax. Mediastinum and zeferino: No mass or hematoma. No mediastinal or hilar lymphadenopathy. Small type I hiatal hernia. Normal thyroid. Heart: Heart is normal in size. No pericardial effusion. Severe coronary artery calcification. Aorta: Moderate vascular calcification but no aneurysm. Pulmonary arteries: Normal caliber. No evidence of pulmonary embolism on this study performed without angiographic technique. Chest wall soft tissues: No acute abnormality. Diaphragm: Intact. Liver: Cirrhotic morphology. Gallbladder: Absent consistent with prior cholecystectomy. Bile ducts: No biliary ductal dilation. Spleen: Normal in size. Pancreas: No suspicious lesion or ductal dilatation. Adrenal glands: No nodule. Kidneys and ureters: Unchanged few nonobstructing bilateral renal calculus versus vascular calcification. Chronic atrophic and multifocal scarring in the right kidney. No hydronephrosis, stone, or suspicious lesion. Simple appearing renal cysts and hypodensities that are too small to characterize are noted, requiring no dedicated follow up. Bladder: No wall thickening or surrounding stranding. Reproductive organs: Unremarkable. Stomach, small bowel, and large bowel: Normal caliber stomach and bowel loops. No surrounding inflammatory changes. Moderate amount of stool burden in the colon. Appendix: No evidence of acute appendicitis. Peritoneum and retroperitoneum: No ascites or pneumoperitoneum. No omental or mesenteric lesions. Lymph nodes: No enlarged lymph nodes. Blood vessels: Severe atherosclerotic vascular calcification but no aneurysm. No evidence of venousthrombosis. Abdominal and pelvic wall soft tissues: Unchanged Freeman's hernia in the right lower quadrant containing a portion of anterior cecum. Bones: Comminuted, impacted left femoral neck fracture with anterior apical angulation. Chronic compression fracture with severe loss of height of T12 and L4 vertebral bodies unchanged. IMPRESSION: 1. Comminuted, impacted left femoral neck fracture 2. No other traumatic injury in chest, abdomen and pelvis. 3. Cirrhotic liver. Preliminary results were conveyed via secure message by Dr. Miguel to Dr. Jeanne John DO on 11/22/2023 at 4:24 AM with understanding acknowledged. I have personally reviewed the images and I agree with this report. WSN: [id number] Ordering Physician: Jeanne John Dictated By: Dionna Miguel MD Dictated Date/Time: 11/22/23 7:16 am Reviewed By: Cristian Jimenez MD Signed By: Cristian Jimenez MD Signed Date/Time: 11/22/23 7:21 am Transcribed By: KEYSHA Transcribed Date/Time: 11/22/23 4:24 am * Exam Date Time Procedure Performing Provider Status 11/22/23 3:[address] Chest W/ Contrast Jerry Wisdom; Aut h (Verified) Notes: (CT Chest W/ Contrast) Reason For Exam: Pulmonary Lesion;Other: RESULT: CT Chest W/ Contrast CT Chest W/ Contrast, CT Abd/Pelvis W/ IV Contrast Only INDICATION: Hx of Present Illness: from home fall tonight, n v, L hip pain, dneis LOC or headstrike; Reason: Other:; Pulmonary Lesion; Clinical Question(s): Interstitial Alveolar Infiltration TECHNIQUE: Helical CT scan of the chest, abdomen, and pelvis with IV contrast, formatted in 3 planes. 100 cc of Omnipaque 300 was administered intravenously. This study was performed without oral contrast. Weight-based protocol was performed using automatic exposure control. CTDIvol Body: 13.80 mGy, DLP Body: 879 mGy*cm. COMPARISON: CT chest 06/04/2022, CT abdomen and pelvis 10/21/2023 FINDINGS: Manager Global view findings, lines and tubes: None. Trachea and airways: Patent without evidence of tracheal or endobronchial lesion. Lungs and pleura: Suboptimal evaluation of the lung field in detail secondary to motion. No effusion or pneumothorax. Mediastinum and zeferino: No mass or hematoma. No mediastinal or hilar lymphadenopathy. Small type I hiatal hernia. Normal thyroid. Heart: Heart is normal in size. No pericardial effusion. Severe coronary artery calcification. Aorta: Moderate vascular calcification but no aneurysm. Pulmonary arteries: Normal caliber. No evidence of pulmonary embolism on this study performed without angiographic technique. Chest wall soft tissues: No acute abnormality. Diaphragm: Intact. Liver: Cirrhotic morphology. Gallbladder: Absent consistent with prior cholecystectomy. Bile ducts: No biliary ductal dilation. Spleen: Normal in size. Pancreas: No suspicious lesion or ductal dilatation. Adrenal glands: No nodule. Kidneys and ureters: Unchanged few nonobstructing bilateral renal calculus versus vascular calcification. Chronic atrophic and multifocal scarring in the right kidney. No hydronephrosis, stone, or suspicious lesion. Simple appearing renal cysts and hypodensities that are too small to characterize are noted, requiring no dedicated follow up. Bladder: No wall thickening or surrounding stranding. Reproductive organs: Unremarkable. Stomach, small bowel, and large bowel: Normal caliber stomach and bowel loops. No surrounding inflammatory changes. Moderate amount of stool burden in the colon. Appendix: No evidence of acute appendicitis. Peritoneum and retroperitoneum: No ascites or pneumoperitoneum. No omental or mesenteric lesions. Lymph nodes: No enlarged lymph nodes. Blood vessels: Severe atherosclerotic vascular calcification but no aneurysm. No evidence of venousthrombosis. Abdominal and pelvic wall soft tissues: Unchanged Freeman's hernia in the right lower quadrant containing a portion of anterior cecum. Bones: Comminuted, impacted left femoral neck fracture with anterior apical angulation. Chronic compression fracture with severe loss of height of T12 and L4 vertebral bodies unchanged. IMPRESSION: 1. Comminuted, impacted left femoral neck fracture 2. No other traumatic injury in chest, abdomen and pelvis. 3. Cirrhotic liver. Preliminary results were conveyed via secure message by Dr. Miguel to Dr. Jeanne John DO on 11/22/2023 at 4:24 AM with understanding acknowledged. I have personally reviewed the images and I agree with this report. WSN: [id number] Ordering Physician: Jeanne John Dictated By: Dionna Miguel MD Dictated Date/Time: 11/22/23 7:16 am Reviewed By: Cristian Jimenez MD Signed By: Cristian Jimenez MD Signed Date/Time: 11/22/23 7:21 am Transcribed By: KEYSHA Transcribed Date/Time: 11/22/23 4:24 am * Exam Date Time Procedure Performing Provider Status 11/22/23 3:[address] Cervical Spine W/O Contrast Jerry Wisdom; Betty (Verified) Notes: (CT Cervical Spine W/O Contrast) Reason For Exam: Neck trauma, dangerous injury mechanism;Other: RESULT: CT Cervical Spine W/O Contrast CT Head/Brain W/O Contrast, CT Cervical Spine W/O Contrast INDICATION: Hx of Present Illness: from home fall tonight, n v, L hip pain, dneis LOC or headstrike; Reason: Trauma; Clinical Question(s): Hematoma TECHNIQUE: Noncontrast head CT using axial technique was reconstructed in axial and coronal planes.Noncontrast spiral CT through the cervical spine was formatted in 3 planes. Automatic tube modulation was used for the cervical spine and iterative dose reconstruction was used for both the head and cervical spine to optimize scan parameters and image quality. CTDIvol Body: 13.00 mGy, DLP Body: 307 mGy*cm. CTDIvol Head: 40.70 mGy, DLP Head: 1342 mGy*cm. 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 No parenchymal hemorrhage, midline shift, or mass effect. Matthew-white matter differentiation is wellpreserved. No acute infarct. Negative insular ribbon sign. Atherosclerotic vascular calcification of the carotid arteries but negative hyperdense vessel sign. Ventricles, sulci, and basilar cisterns are normal. Moderate low-density white matter changes. No subarachnoid hemorrhage. No subdural or epidural collection. CALVARIUM, SKULL BASE, AND SOFT TISSUES: No fractures or suspicious bony lesions. Mucosal debris in the left sphenoid sinus unchanged. Visualized orbits and globes are intact. The extracranial soft tissues are unremarkable. CERVICAL SPINE: No fracture. No acute osseous abnormalities. Normal alignment. No locked or perched facet. Moderate multilevel degenerative disc space narrowingand end plate irregularity. OTHER BONES: No acute abnormality. CERVICAL SOFT TISSUES AND LUNG APICES: Normal soft tissues. Visualized lung apices are clear. A 1.7 cm right thyroid lobe nodule unchanged. IMPRESSION: 1. No acute abnormality of the head or cervical spine. 2. Unchanged 1.7 cm right thyroid lobe nodule. Recommend nonemergent ultrasound soft tissue neck ifthis has not been evaluated before. I have personally reviewed the images and I agree with this report. WSN: [id number] Ordering Physician: Jeanne John Dictated By: Dionna Miguel MD Dictated Date/Time: 11/22/23 6:55 am Reviewed By: Jessica Gomez MD Signed By: Jessica Gomez MD Signed Date/Time: 11/22/23 7:00 am Transcribed By: KEYSHA Transcribed Date/Time: 11/22/23 4:05 am * Exam Date Time Procedure Performing Provider Status 11/22/23 3:[address] Head/Brain W/O Contrast Ras Wisdom n; Auth (Verified) Notes: (CT Head/Brain W/O Contrast) Reason For Exam: Trauma RESULT: CT Head/Brain W/O Contrast CT Head/Brain W/O Contrast, CT Cervical Spine W/O Contrast INDICATION: Hx of Present Illness: from home fall tonight, n v, L hip pain, dneis LOC or headstrike; Reason: Trauma; Clinical Question(s): Hematoma TECHNIQUE: Noncontrast head CT using axial technique was reconstructed in axial and coronal planes.Noncontrast spiral CT through the cervical spine was formatted in 3 planes. Automatic tube modulation was used for the cervical spine and iterative dose reconstruction was used for both the head and cervical spine to optimize scan parameters and image quality. CTDIvol Body: 13.00 mGy, DLP Body: 307 mGy*cm. CTDIvol Head: 40.70 mGy, DLP Head: 1342 mGy*cm. 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 No parenchymal hemorrhage, midline shift, or mass effect. Matthew-white matter differentiation is wellpreserved. No acute infarct. Negative insular ribbon sign. Atherosclerotic vascular calcification of the carotid arteries but negative hyperdense vessel sign. Ventricles, sulci, and basilar cisterns are normal. Moderate low-density white matter changes. No subarachnoid hemorrhage. No subdural or epidural collection. CALVARIUM, SKULL BASE, AND SOFT TISSUES: No fractures or suspicious bony lesions. Mucosal debris in the left sphenoid sinus unchanged. Visualized orbits and globes are intact. The extracranial soft tissues are unremarkable. CERVICAL SPINE: No fracture. No acute osseous abnormalities. Normal alignment. No locked or perched facet. Moderate multilevel degenerative disc space narrowingand end plate irregularity. OTHER BONES: No acute abnormality. CERVICAL SOFT TISSUES AND LUNG APICES: Normal soft tissues. Visualized lung apices are clear. A 1.7 cm right thyroid lobe nodule unchanged. IMPRESSION: 1. No acute abnormality of the head or cervical spine. 2. Unchanged 1.7 cm right thyroid lobe nodule. Recommend nonemergent ultrasound soft tissue neck ifthis has not been evaluated before. I have personally reviewed the images and I agree with this report. WSN: [id number] Ordering Physician: Jaenne John Dictated By: Dionna Miguel MD Dictated Date/Time: 11/22/23 6:55 am Reviewed By: Jessica Gomez MD Signed By: Jessica Gomez MD Signed Date/Time: 11/22/23 7:00 am Transcribed By: KEYSHA Transcribed Date/Time: 11/22/23 4:05 am Vital Signs Most recent to oldest [Reference Range]: 1 2 3 Weight 73.1 kg (11/26/23 3:49 PM) Oxygen Saturation [94-100 %] 100 % (12/01/23 7:29 AM) 100 % (12/01/23 3:32 AM) 95 % (11/30/23 11:02 PM) Pulse Rate [55-90 bpm] 76 bpm (12/01/23 7:29 AM) 74 bpm (12/01/23 3:32 AM) 63 bpm (11/30/23 11:02 PM) Blood Pressure [90-138/55-84 mm Hg] 154/56mm Hg *H* (12/01/23 8:25 AM) 154/56mm Hg *H* (12/01/23 7:29 AM) 119/48mm Hg (12/01/23 3:32 AM) Respiratory Rate [16-30 br/min] 18 br/min (12/01/23 8:25 AM) 17 br/min (12/01/23 7:29 AM) 18 br/min (12/01/23 3:32 AM) Temperature [96.8-100.4 DegF] 98.6 DegF (12/01/23 7:29 AM) 98.2 DegF (12/01/23 3:32 AM) 98.4 DegF (11/30/23 11:02 PM) Liters per Minute 6 L/min (11/26/23 5:45 PM) Mode of Delivery (Oxygen) Room air (12/01/23 7:29 AM) Room air (12/01/23 3:32 AM) Room air (11/30/23 11:02 PM) Blood pressure sites Arm, left (12/01/23 7:29 AM) Arm, right (12/01/23 3:32 AM) Arm, right (11/30/23 11:02 PM) Temperature Route Oral (12/01/23 7:29 AM) Oral (12/01/23 3:32 AM) Oral (11/30/23 11:02 PM) Dry Weight 73.1 kg (11/26/23 3:49 PM) Social History Social History Type Response Smoking Status Never (less than 100 in lifetime) entered on: 06/27/21 Sex Female History and physical note * Len Hood MD: PERFORM Event Display: History and Physical Hospital Authored Date: [id number] Patient: ??GLADIS GILBERT ? Age:??72 Years?Sex:??Female?:??1950?? Chief Complaint/Reason for Consultation Left hip pain s/p fall History of Present Illness Patient is Azerbaijani-speaking so information is obtained with the help of painter decorator.?? History is also from her family from her daughter. 72-year-old female with a past medical history of dementia, hypertension, hyperlipidemia, insulin-dependent type 2 diabetes mellitus, TIA, cirrhosis of liver, CKD who did come with a complaint of mechanical fall.?? As per the information she did have vomiting and she is slipped on her own vomit andlanded on the left side.?? No history of any loss of consciousness.?? No history of any chest pain,shortness of breath, headache, dizziness, slurred speech or any focal weakness of any part of the body.She was unable to walk.?? She does?need walker to walk but he forgot to use her walker because of her dementia.?? Because of ongoing pain in the left leg she was brought to the ED for further e valuation.? X-ray of the pelvis showed comminuted angulated left intertrochanteric femur fracture.?? CT of the head ruled out any acute abnormality.?? CT of the cervical spine was normal.?? CT of the chest also ruled out any acute traumatic injury to the chest abdomen and pelvis.?? She evaluated by Ortho and they have recommended medical admission.?? Planning to take her to the OR. ?? As per the family there is no history of any exertional angina.?? No history of any CAD.?? No history of any shortness of breath, chest discomfort with exertion.?? Lab workup showed high WBC count.?? Blood sugar was high 432 with high anion gap, hyperkalemia.?? During my examination she was pleasantly confused.?? EKG showed normal sinus rhythm.?? She does have a echocardiogram in 03/25 that showed weak left systolic function and indeterminate diastolic dysfunction. Review of Systems Patient denied any active issue.?? Reliability of the review of system is questionable because of patient dementia. Objective Vital Signs?? Temperature: 98.3 DegF (11/22/23 23:18:00) Temperature Route: Oral (11/22/23 23:18:00) Pulse Rate:??100 bpm??High (11/22/23 23:18:00) Respiratory Rate: 18 br/min (11/22/23 23:18:00) Systolic Blood Pressure: 132 mm Hg (11/22/23 23:18:00) Diastolic Blood Pressure:??89 mm Hg??High (11/22/23 23:18:00) Blood pressure sites: Arm, right (11/22/23 23:18:00) Mean Arterial Pressure: 103 mm Hg (11/22/23 23:18:00) Pulse Pressure: 43 mm Hg (11/22/23 23:18:00) Oxygen Saturation: 100 % (11/22/23 23:18:00) Mode of Delivery (Oxygen): Room air (11/22/23 23:18:00) Early Warning Score: 3 (11/22/23 23:18:52) ? Physical Exam General Appearance: Moderately nourished, not in any apparent distress, alert, awake and oriented x1 Skin: No rash.?? Warm, dry, pink, no pallor, intact. Eye:?? Normal conjunctiva. HEENT: No JVP.? Heart:?? S1, S2.?? No murmurs.? Respiratory:?? Clear to auscultation, no rhonchi, no wheezing, no crackles. GI:?? Abdomen is soft, nontender, nondistended.?? Bowel sounds are positive.?? No organomegaly Neurologic:?? Nonfocal neurological examination.? Extremities:?? No calf tenderness, no clubbing, no edema.?? She was not moving the left leg becauseof pain.?? Tenderness at the lateral hip on left side. Psychiatric: No signs of agitation. Lymphatic system: No cervical lymphadenopathy. Assessment/Plan ?? 72-year-old female with a past medical history of dementia, hypertension, hyperlipidemia, insulin-dependent type 2 diabetes mellitus, TIA, cirrhosis of liver, CKD who did come with a complaint of mechanical fall.?? She is found to have comminuted angulated left intertrochanteric femur fracture and admitted to the medical team for further management. ?? Femoral neck fracture (S72.009A):??-?? Preoperative clearance (Z01.818):??- Mechanical fall??;- ??Dementia (F03.90):??- EKG at her baseline.?? No history of any exertional anginal symptoms.?? Her Ray perioperative?? risk of myocardial infarction or cardiac arrest intraoperatively or up to 30 days postoperatively?? is 0.6%.?? Her Ray postoperative respiratory failure risk for mechanical ventilation for greater than 48 hours after surgery or unplanned intubation less than 30 days of surgery is 0.6%.?? I did talkwith the family regarding risk and benefit and they are okay with the planned surgery.?? Will have incentive spirometry and chest physiotherapy. She is a high risk for delirium.?? Will have delirium precautions.?? Avoid anticholinergics, benzodiazepines, and opiates. Avoid restraints. Family at bedside as much as possible. Frequent reorientation. Constant picker feeder as needed . OOB to chair for meals,?maintain hydration. Close monitoringfor constipation and urinary retention. Room bright during day, and dim at night. Uninterrupted sleep at night. Ambulate with assistance as possible . Will continue oxycodone, morphine for the pain. ?? Troponin level elevated (R79.89):??- ??2 troponin are flat.?? High troponin most likely due to low creatinine clearance. ?? Elevated WBC count (D72.829):??- ??High WBC count reactive in nature.?? No signs or symptoms of infectious etiology.?? Will get a urine analysis.?? Her recent UA on 11/17 was abnormal. ?? CKD stage 3 secondary to diabetes (E11.22):??-?? Anemia (D64.9):??- ??Renal function are stable.?? Will avoid nephrotoxic drugs.?? Will continue to monitor H/H.?? Typeand cross imaging done.?? Will continue with the ferrous sulfate. ?? Type 2 diabetes mellitus with insulin therapy (E11.9):??- ??Blood sugar still running high.?? Will continue with low-dose of Lantus because she is going to be n.p.o. and will continue insulin lispro sliding scale as per POC. ?? HTN (hypertension) (I10):??- ??Will continue with amlodipine. ?? GERD (gastroesophageal reflux disease) (K21.9):??- Will continue with the PPI. ?? VTE Prophylaxis:??- ?VTE Prophylaxis Assessment:??VTE Prophylaxis Ordered ??Will continue with the subcu heparin. Discharge Planning:??-?? Will discharge her to subacute rehab after the surgery. ?? Ongoing Medical Necessity:??- To go??OR for hip fracture. ?? Code Status:??- ?Order Code Status:??Code Status Ordered Full code. ?? Disclaimer: ??This note ??was accomplished with use of [employer] voice recognition software, which is prone to medical and other word misidentifications and grammatical errors. ??The physician does strive to identify and correct these, but some could still be present. ??Please do not hesitate to contact the physician for clarifications. ??I will continue to take care of this patient till 3 AM of theadmitting date. Histories Allergies Allergies ?(Active and Proposed Allergies [...] Alcohol Details:??Use: Never. Details:??Use: Never. 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 Substance Abuse Details:??Use: Never. [...] 81 mg oral delayed release tablet)?81?Milligram?1?tablet?By Mouth?Daily Clindamycin Topical (Cleocin Vaginal 2% cream)?1?applicator?Vaginally?Daily at bedtime Ferrous Sulfate (ferrous sulfate 325 mg oral tablet)?1?tab(s)?325?Milligram?By Mouth?Daily Fluticasone Nasal (fluticasone 50 mcg/inh nasal spray)?1?spray(s)?Nares, Both?2 times aday Insulin Glargine (Lantus Inj)?15?unit(s)?Subcutaneous Injection?Daily at bedtime Insulin Lispro (Insulin Lispro KwikPen 100 units/mL injectable solution)?4 - 14 units?3 times a day before meals linaclotide (Linzess 145 mcg oral capsule)?1?capsule?145?Microgram?By Mouth?Daily Nystatin Topical (nystatin topical 594818 u/gm powder)?1?joe?Topically?2 times a day Pantoprazole (Protonix 40 mg oral delayed release tablet)?1?tab(s)?40?Milligram?By Mouth?Daily sitagliptin (Januvia 50 mg oral tablet)?1?tab(s)?50?Milligram?By Mouth?Daily Sucralfate (sucralfate 1 gm oral tablet)?1?gram?1?tablet?By Mouth?2 times a day Ursodiol (ursodiol 500 mg oral tablet)?1?tab(s)?500?Milligram?By Mouth?2 times a day ? Results Recent Labs BLOOD BANK Blood Type A Positive ()?? 11/22/2023 05:35 Antibody Screen Negative ()?? 11/22/2023 05:35 ?? BLOOD COUNT & DIFF WBC 15.1 k/mm3 (High)?? 11/22/2023 03:18 RBC 3.47 m/mm3 (Low)?? 11/22/2023 03:18 Hgb 10.1 Gm/dL (Low)?? 11/22/2023 03:18 Hct 31.3 % (Low)?? 11/22/2023 03:18 MCV 90.2 femtoliters ()?? 11/22/2023 03:18 MCH 29.1 pg ()?? 11/22/2023 03:18 MCHC 32.3 g/dL (Low)?? 11/22/2023 03:18 Platelet Count 245 k/mm3 ()?? 11/22/2023 03:18 RDW-SD 48.1 femtoliters (High)?? 11/22/2023 03:18 MPV 11.2 femtoliters ()?? 11/22/2023 03:18 Nucleated RBC (Automated) 0.0 #/100 WBC'S ()?? 11/22/2023 03:18 Abs. NRBC 0.0 k/mm3 ()?? 11/22/2023 03:18 Abs. Neut 13.7 k/mm3 (High)?? 11/22/2023 03:18 Abs. Lymph 0.6 k/mm3 (Low)?? 11/22/2023 03:18 Abs. Shackelford 0.6 k/mm3 ()?? 11/22/2023 03:18 Abs. Eo 0.0 k/mm3 ()?? 11/22/2023 03:18 Abs. Baso 0.0 k/mm3 ()?? 11/22/2023 03:18 Neut % 90.8 % (High)?? 11/22/2023 03:18 Lymph % 4.1 % (Low)?? 11/22/2023 03:18 Shackelford % 4.3 % (Low)?? 11/22/2023 03:18 Eos % 0.1 % ()?? 11/22/2023 03:18 Baso % 0.1 % ()?? 11/22/2023 03:18 Imm Gran 0.6 % ()?? 11/22/2023 03:18 Abs. Imm Gran 0.1 k/mm3 ()?? 11/22/2023 03:18 ?? BLOOD GAS Specimen Type - Blood Gas VENOUS ()?? 11/22/2023 05:34 pH, Venous 7.28 (Low)?? 11/22/2023 05:34 pCO2, Venous 49 mm Hg ()?? 11/22/2023 05:34 pO2, Venous 33 mm Hg (Low)?? 11/22/2023 05:34 Bicarbonate, Estimated(Venous) 23 mmol/L ()?? 11/22/2023 05:34 ?? CARDIAC CK, Total 300 units/L (High)?? 11/22/2023 03:18 Nt-Probnp 423 pg/mL (High)?? 11/22/2023 03:18 High Sensitivity Troponin (HSTnT) 28 ng/L (High)?? 11/22/2023 05:34 ?? CHEM GENERAL Sodium 143 mmol/L ()?? 11/22/2023 03:18 Potassium 5.2 mmol/L ()?? 11/22/2023 03:18 Chloride 105 mmol/L ()?? 11/22/2023 03:18 Bicarbonate Level 20 mmol/L (Low)?? 11/22/2023 03:18 Anion Gap 18 (High)?? 11/22/2023 03:18 Glucose Level 432 mg/dL (High)?? 11/22/2023 03:18 Glucose, POC 215 mg/dL (High)?? 11/22/2023 21:41 Beta Hydroxybutyrate 1.00 mmol/L (High)?? 11/22/2023 03:18 BUN 59 mg/dL (High)?? 11/22/2023 03:18 Creatinine-Blood 1.92 mg/dL (High)?? 11/22/2023 03:18 Estimated GFR Creatinine 27 ML/MIN/1.73 M2 ()?? 11/22/2023 03:18 Calcium 9.6 mg/dL ()?? 11/22/2023 03:18 Phosphorus 4.1 mg/dL ()?? 11/22/2023 03:18 Magnesium 2.1 mg/dL ()?? 11/22/2023 03:18 Protein, Total 7.1 Gm/dL ()?? 11/22/2023 03:18 Albumin 4.0 Gm/dL ()?? 11/22/2023 03:18 AG Ratio 1.3 ()?? 11/22/2023 03:18 Alkaline Phosphatase 258 units/L (High)?? 11/22/2023 03:18 Lipase 91 units/L (High)?? 11/22/2023 03:18 AST (SGOT) 29 units/L ()?? 11/22/2023 03:18 ALT (SGPT) 20 units/L ()?? 11/22/2023 03:18 Bilirubin, Total 0.5 mg/dL ()?? 11/22/2023 03:18 ?? ENDOCRINE/TUMOR MARKER TSH 10.10 uIU/mL (High)?? 11/22/2023 03:18 Free T4 1.37 ng/dL ()?? 11/22/2023 03:18 ?? VIROLOGY COVID-19 by RT-PCR NEGATIVE ()?? 11/22/2023 03:08 ? Cardiology * Event Display: Cardiac Rhythm Strips Authored Date: Hospital Progress note * Terrance Roy RN: PERFORM, MODIFY, SIGN, VERIFY Event Display: Progress Note Hospital Authored Date: Patient: GLADIS GILBERT Age: 72 years Sex: Female : 1950 Associated Diagnoses: None Author: Terrance Roy RN Findings Problem Related to Alteration in Musculoskeletal : Alteration in Musculoskeletal Func/new 12/01/2023 1:00 EDT Alteration in Musculoskeletal Related to Mobility, Orthopedic Procedure, Other: L femur fx s/p IM nailing 11/26/23 Goals & Outcomes, Musculoskeletal Affected extremity will maintain color/motion/sensation, Pt able to perform ADL's to best of ability, Pt demonstrates precautions/exercise/ transfers per protocol, Pt will ambulate safely with assistive device, Pt will be free from complications of immobility, Pt will demonstrate ability to participate in ADL's, Pt will report acceptable level of comfort/painrelief Interventions, Musculoskeletal monitor Color/Motion/Sensation, Assist with repositioning, Encouragedeep breathing & coughing exercises, Teach pt/caregiver on use of pain scale, Teach Pt/caregiver on safety precautions BH Goals/Interventions, Musculoskeletal Yes Musculoskeletal, Problem Start 11/26/2023 0:56 Reviewed Plan with, Musculoskeletal Patient Patient Progression, Musculoskeletal Pt progressing according to plan . Nursing Data Vital Signs : VITAL SIGNS SECTION 12/01/2023 7:29 EDT Temperature 98.6 DegF Temperature Route Oral Pulse Rate 76 bpm Respiratory Rate 17 br/min Systolic Blood Pressure 154 mm Hg H Diastolic Blood Pressure 56 mm Hg Blood pressure sites Arm, left Mean Arterial Pressure 89 mm Hg Pulse Pressure 98 mm Hg Oxygen Saturation 100 % Mode of Delivery (Oxygen) Room air . Evaluation P: ORIF 11/25 I: Interventions per plan E: : Greg Kearns/Joe:2 Lungs: Clear. Denies SOB. IS at bedside. Encouraged pat to use 10x/hr. Pt able to demonstrate proper way to use. Patient denies chest pain, numbness, tingling, and dizziness. +PP +CMS +D/P flexion On Hep for DVT prophylaxis. Cboots bilat Encourage ankle pumps 20x/hr and gluteal squeeze frequently. Dress CDI AmbulatinMax assist Pain managed with oxycodone and Tylenol Tolerating diabetic diet. Abdomen soft, nontender LBM 11/27 Voiding, incontinent Patient progressing with plan.. * Herberth Fox DO: MODIFY, PERFORM, MODIFY, MODIFY Event Display: Progress Note Hospital Authored Date: Patient: ??GLADIS GILBERT ? Age:??72 Years?Sex:??Female?:??1950?? Subjective No labs from today. ??Patient is afebrile, blood pressure 154/56, saturating on room air 100%, heart rate is 76, urine output of 700 cc. ??Balance of -230 cc. ??Patient remains on sodium bicarb tablets. Pt is comfortable. Reports stomach pain. reports drinking enough water. Review of Systems Additional review of systems information:??All other systems reviewed and otherwise negative as mentioned above. Allergies Allergies ?(Active and Proposed Allergies Only) morphine? (Severity: Unknown severity, Onset: Unknown) ?Reactions: patient sensitive to morphine ? Objective Vital Signs?? Temperature: 98.6 DegF (12/01/23 07:29:00) Temperature Route: Oral (12/01/23 07:29:00) Pulse Rate: 76 bpm (12/01/23 07:29:00) Respiratory Rate: 18 br/min (12/01/23 08:25:00) Systolic Blood Pressure:??154 mm Hg??High (12/01/23 08:25:00) Diastolic Blood Pressure: 56 mm Hg (12/01/23 08:25:00) Blood pressure sites: Arm, left (12/01/23 07:29:00) Mean Arterial Pressure: 89 mm Hg (12/01/23 07:29:00) Pulse Pressure: 98 mm Hg (12/01/23 07:29:00) Oxygen Saturation: 100 % (12/01/23 07:29:00) Mode of Delivery (Oxygen): Room air (12/01/23 07:29:00) Early Warning Score: 0 (12/01/23 11:35:57) ? Physical Exam Constitutional: Alert, and oriented to self Head: Normocephalic. Eyes: Pupils are equal, round and reactive to light. Extraocular muscles intact. Ear, Nose and Throat: Oropharynx clear, mucous membranes moist. Ears and nose without masses, lesions or deformities. Trachea midline. Neck: Supple, Full range of motion. Respiratory: Clear to auscultation. No wheezing, rales or rhonchi. Cardiovascular: S1 S2 regular. No murmurs, rubs or gallops. No JVD. No peripheral edema. Gastrointestinal: Abdomen soft, non-tender, non-distended. Normal bowel sounds. No pulsatile mass. No hepatosplenomegaly. Neurologic: No focal neurological deficits. Moves all extremities spontaneously. Sensation intact bilaterally. Skin: No rashes or lesions. No petechiae or purpura.?? Musculoskeletal: No cyanosis or clubbing. No gross deformities. Normal range of motion. Psychiatric: Normal mood and affect _ Inpatient Medications Medications (25) Active SCHEDULED: (11) Amlodipine 5 mg Tablet (Norvasc 5 mg oral tablet) ??5 mg, By Mouth, Daily Ascorbic Acid 250 mg Tablet (Vitamin C 500 mg oral tablet) ??500 mg, By Mouth, Daily Aspirin 81 mg EC Tablet (aspirin 81 mg oral delayed release tablet) ??81 mg, By Mouth, Daily Ferrous Sulfate 325 mg EC Tablet (ferrous sulfate 325 mg oral tablet) ??325 mg, By Mouth, Daily Heparin 5000 units/mL Inj (1 mL) (Heparin Inj) ??5,000 units 1 mL, Subcutaneous Injection, 3 times a day Insulin Glargine 100 units/mL Inj (Lantus Inj) ??15 units 0.15 mL, Subcutaneous Injection, Daily atbedtime Insulin Lispro 100 units/mL Inj (Humalog Sliding Scale) ??2-12 units, Subcutaneous Injection, 3 times a day before meals NaCl 0.9% Flush 3ml (NaCL 0.9% Flush) ??3 mL, IV Push, Every 8 hours Pantoprazole 40 mg EC Tablet (Protonix 40 mg oral delayed release tablet) ??40 mg, By Mouth, Daily Sodium Bicarbonate 650 mg Tablet (sodium bicarbonate 650 mg oral tablet) ??650 mg, By Mouth, 2 times a day Sucralfate 1 Gm Tablet (sucralfate 1 gm oral tablet) ??1 Gm, By Mouth, 2 times a day before breakfast and dinne CONTINUOUS: (0) PRN: (14) Acetaminophen 325 mg Tablet (Acetaminophen Tablet) ??650 [...] ??3 mL, IV Push, Every 8 hours OxyCODONE 5 mg IR Tablet (oxyCODONE 5 mg oral tablet) ??5 mg, By Mouth, Every 6 hours Polyethylene Glycol 17 Gm Powder (MiraLax Powder) ??17 Gm 1 pack/packet, By Mouth, Daily Senna Tablet ??8.6 mg 1 tablet, By Mouth, 2 times a day Simethicone 80 mg Chewable Tablet (Simethicone Tablet) ??80 mg, Chew, 3 times a day ? Results Recent Labs BLOOD COUNT & DIFF Hgb 7.4 Gm/dL (Low)?? 11/30/2023 01:09 Hct 24.5 % (Low)?? 11/30/2023 01:09 ?? CHEM GENERAL Sodium 138 mmol/L ()?? 11/30/2023 01:09 Potassium 3.9 mmol/L ()?? 11/30/2023 01:09 Chloride 106 mmol/L ()?? 11/30/2023 01:09 Bicarbonate Level 19 mmol/L (Low)?? 11/30/2023 01:09 Anion Gap 13 ()?? 11/30/2023 01:09 Glucose Level 135 mg/dL (High)?? 11/30/2023 01:09 Glucose, POC 324 mg/dL (High)?? 12/01/2023 11:20 BUN 34 mg/dL (High)?? 11/30/2023 01:09 Creatinine-Blood 2.04 mg/dL (High)?? 11/30/2023 01:09 Estimated GFR Creatinine 25 ML/MIN/1.73 M2 ()?? 11/30/2023 01:09 Calcium 8.2 mg/dL (Low)?? 11/30/2023 01:09 ? Microbiology ?? COVID-19 (Novel Coronavirus), Rapid PCR?? Completed?? Source: Nasal Body Site: Nose Collected Dt/Tm: 11/22/2023 02:31 Last Updated Dt/Tm: 11/22/2023 04:02 ? Assessment/Plan 72-year-old female with a past medical history of dementia, hypertension, hyperlipidemia, insulin-dependent type 2 diabetes mellitus, TIA, cirrhosis of liver, CKD who did come with a complaint of mechanical fall.?? She is found to have comminuted angulated left intertrochanteric femur fracture and admitted to the medical team for further management. Course complicated by SAM on CKD and Hypernatremia for which Renal was consulted. ?? SAM stage I on CKD Stage 3A Hypernatremia (resolved) Non anion gap metabolic acidosis SAM likely in the setting of prerenal etiology. Hypernatremia likely in the setting of dehydration and poor po intake as patient was NPO. Water deficit was 3.4L. Sodium normal, Cr is now baseline around 2 ?? Recommendations - Continue Sodium Bicarbonate 650mg BID PO on discharge ?? Renal Team will sign off Please do not hesitate to contact us if there are any further questions ?? Pt discussed with Attending Dr. Carrlol ?? Herberth Fox,??DO PGY-3 Internal Medicine Pager [phone]/ cortext? * Eve Urban RN: PERFORM, SIGN, VERIFY Event Display: Progress Note Hospital Authored Date: [id number] Patient: GLADIS GILBERT Age: 72 years Sex: Female : 1950 Associated Diagnoses: None Author: Eve Urban RN Findings Problem Related to Alteration in Comfort : Alteration in Comfort/new 12/01/2023 1:00 EDT Alteration in Comfort Related to Injury, Surgery Goals & Outcomes: Comfort Pt will report acceptable level of comfort & pain control, Pt will state importance of adhering to pain strategy regime, Pt will demonstrate necessary skills to manage pain Interventions Implemented: Comfort Assess pain using appropriate pain scale/tools, Assess aggravating factors & prevent them accordingly, Assess alleviating factors & promote them accordingly Goals/Interventions, Comfort Yes Comfort, Problem Start 11/22/2023 9:00 Reviewed plan with, Comfort Patient Patient Progression, Comfort Pt progressing according to plan Comfort, Problem Ongoing Yes . Alteration in Musculoskeletal : Alteration in Musculoskeletal Func/new 12/01/2023 1:00 EDT Alteration in Musculoskeletal Related to Mobility, Orthopedic Procedure, Other: L femur fx s/p IM nailing 11/26/23 Goals & Outcomes, Musculoskeletal Affected extremity will maintain color/motion/sensation, Pt able to perform ADL's to best of ability, Pt demonstrates precautions/exercise/ transfers per protocol, Pt will ambulate safely with assistive device, Pt will be free from complications of immobility, Pt will demonstrate ability to participate in ADL's, Pt will report acceptable level of comfort/painrelief Interventions, Musculoskeletal monitor Color/Motion/Sensation, Assist with repositioning, Encouragedeep breathing & coughing exercises, Teach pt/caregiver on use of pain scale, Teach Pt/caregiver on safety precautions Goals/Interventions, Musculoskeletal Yes Musculoskeletal, Problem Start 11/26/2023 0:56 Reviewed Plan with, Musculoskeletal Patient Patient Progression, Musculoskeletal Pt progressing according to plan . Evaluation P: Alteration in comfort/Alteration in musculoskeletal function I: as listed above E: Left femur fracture, s/p IM nailing 11/26/23. Alert and oriented x2-3, primarily Azerbaijani speaking, bed alarm activated for safety. No sob or chest pain. No nausea or vomiting, last BM 11/28/23. Lefthip/thigh aquacel dressings with old staining, +CMS. Medicated with prn oxycodone for pain with good relief. Incontinent of urine, with primafit draining adequate amount of clear yellow urine. With slit on coccyx, applied Zguard. Repositioned for comfort, on centrella bed. Right upper arm with skintear, with xeroform dressing. On heparin subcu and wearing compression boots for DVT prophylaxis. Resting quietly at this time. Safety measures in placed for safety. . Consult note * Herberth Fox DO: MODIFY, PERFORM, MODIFY, MODIFY, MODIFY, MODIFY, MODIFY, MODIFY, MODIFY, MODIFY, MODIFY, MODIFY, MODIFY, MODIFY, MODIFY Event Display: Consultation Note Authored Date: [id number] Patient: ??GLADIS GILBERT ? Age:??72 Years?Sex:??Female?:??1950?? Chief Complaint/Reason for Consultation Left hip pain s/p fall History of Present Illness 72-year-old female with a past medical history of dementia, hypertension, hyperlipidemia, insulin-dependent type 2 diabetes mellitus, TIA, cirrhosis of liver, CKD who did come with a complaint of mechanical fall.?? She is found to have comminuted angulated left intertrochanteric femur fracture and admitted to the medical team for further management. Course complicated by SAM on CKD and Hypernatremia for which Renal was consulted. ?? Patient is afebrile, heart rate 88, blood pressure 148/50, saturating well on room air at 100%. Lab work patient has a white count 9.1 down trended from 50.6, hemoglobin of 9.3 down from 10.4 however stable throughout hospitalization, platelets are normal at 220, sodium of 153 up from 147, patient's sodium was normal upon presentation to the hospital.?? Chloride of 122, bicarb of 19, BUN is 51, creatinine of 2.24, creatinine peaked at 2.61 during this admission, yesterday was 2.51.?? Presented with a creatinine of 1.96.?? Baseline is around 1.2-1.6 however most likely around [address] abdomen pelvis with IV contrast. Osmolality is 323, urine sodium is 79, urine osmolality is 437, CT showed??a??cirrhotic liver.?? On the CT there is atrophic and multifocal scarring in the right kidney.?? No hydronephrosis noted.?? Patient has a urine output of 1 L with a balance of +470 cc.?? Patient has received 4 L of normal saline during this admission. Water deficit of 3.4L. Pt seems to be confused. Oriented to self. Endorsing nausea and stomach pain. Review of Systems Additional review of systems information:??All other systems reviewed and otherwise negative as mentioned above. Objective ? Vital Signs?? Temperature: 98.3 DegF (11/25/23 06:25:00) Temperature Route: Oral (11/25/23 06:25:00) Pulse Rate: 88 bpm (11/25/23 08:14:00) Respiratory Rate: 18 br/min (11/25/23 06:25:00) Systolic Blood Pressure:??140 mm Hg??High (11/25/23 08:20:00) Diastolic Blood Pressure:??50 mm Hg??Low (11/25/23 08:20:00) Blood pressure sites: Arm, left (11/25/23 08:17:00) Mean Arterial Pressure: 80 mm Hg (11/25/23 08:17:00) Pulse Pressure: 90 mm Hg (11/25/23 08:17:00) Oxygen Saturation: 100 % (11/25/23 08:14:00) Mode of Delivery (Oxygen): Room air (11/25/23 08:14:00) Early Warning Score: 3 (11/25/23 11:08:56) ? Physical Exam Constitutional: Alert, and oriented to self Mental Status: Oriented to person, place and time. Head: Normocephalic. Eyes: Pupils are equal, round and reactive to light. Extraocular muscles intact. Ear, Nose and Throat: Oropharynx clear, mucous membranes moist. Ears and nose without masses, lesions or deformities. Trachea midline. Neck: Supple, Full range of motion. Respiratory: Clear to auscultation. No wheezing, rales or rhonchi. Cardiovascular: S1 S2 regular. No murmurs, rubs or gallops. No JVD. No peripheral edema. Gastrointestinal: Abdomen soft, non-tender, non-distended. Normal bowel sounds. No pulsatile mass. No hepatosplenomegaly. Neurologic: No focal neurological deficits. Moves all extremities spontaneously. Sensation intact bilaterally. Skin: No rashes or lesions. No petechiae or purpura.?? Musculoskeletal: No cyanosis or clubbing. No gross deformities. Normal range of motion. Psychiatric: Normal mood and affect Assessment/Plan 72-year-old female with a past medical history of dementia, hypertension, hyperlipidemia, insulin-dependent type 2 diabetes mellitus, TIA, cirrhosis of liver, CKD who did come with a complaint of mechanical fall.?? She is found to have comminuted angulated left intertrochanteric femur fracture and admitted to the medical team for further management. Course complicated by SAM on CKD and Hypernatremia for which Renal was consulted. ?? SAM stage I on CKD Stage 3A Hypernatremia SAM likely in the setting of prerenal etiology. Hypernatremia likely in the setting of dehydration and poor po intake as patient was NPO today. Water deficit is??3.4L. ?? Recommendations - D5W 150cc/hr - Monitor Sodium levels every 8 hours - OK for OR??to use NS or LR during procedure tomorrow ?? Pt discussed with Attending Dr. Carroll ?? Herberth Fox,??DO PGY-3 Internal Medicine Pager [phone]/ cortext? Histories Allergies Allergies ?(Active and Proposed Allergies [...] Alcohol Details:??Use: Never. Details:??Use: Never. 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 Substance Abuse Details:??Use: Never. [...] 81 mg oral delayed release tablet)?81?Milligram?1?tablet?By Mouth?Daily Clindamycin Topical (Cleocin Vaginal 2% cream)?1?applicator?Vaginally?Daily at bedtime Ferrous Sulfate (ferrous sulfate 325 mg oral tablet)?1?tab(s)?325?Milligram?By Mouth?Daily Fluticasone Nasal (fluticasone 50 mcg/inh nasal spray)?1?spray(s)?Nares, Both?2 times aday Insulin Glargine (Lantus Inj)?15?unit(s)?Subcutaneous Injection?Daily at bedtime Insulin Lispro (Insulin Lispro KwikPen 100 units/mL injectable solution)?4 - 14 units?3 times a day before meals linaclotide (Linzess 145 mcg oral capsule)?1?capsule?145?Microgram?By Mouth?Daily Nystatin Topical (nystatin topical 990917 u/gm powder)?1?joe?Topically?2 times a day Pantoprazole (Protonix 40 mg oral delayed release tablet)?1?tab(s)?40?Milligram?By Mouth?Daily sitagliptin (Januvia 50 mg oral tablet)?1?tab(s)?50?Milligram?By Mouth?Daily Sucralfate (sucralfate 1 gm oral tablet)?1?gram?1?tablet?By Mouth?2 times a day Ursodiol (ursodiol 500 mg oral tablet)?1?tab(s)?500?Milligram?By Mouth?2 times a day ? Inpatient Medications Medications (25) Active SCHEDULED: (11) Amlodipine 5 mg Tablet (Norvasc 5 mg oral tablet) ??5 mg, By Mouth, Daily Ascorbic Acid 250 mg Tablet (Vitamin C 500 mg oral tablet) ??500 mg, By Mouth, Daily Aspirin 81 mg EC Tablet (aspirin 81 mg oral delayed release tablet) ??81 mg, By Mouth, Daily CeFAZolin 2 Gm Inj (ceFAZolin Inj) ??2 Gm, IV Push, Once Ferrous Sulfate 325 mg EC Tablet (ferrous sulfate 325 mg oral tablet) ??325 mg, By Mouth, Daily Heparin 5000 units/mL Inj (1 mL) (Heparin Inj) ??5,000 units 1 mL, Subcutaneous Injection, 3 times a day Insulin Glargine 100 units/mL Inj (Lantus Inj) ??15 units 0.15 mL, Subcutaneous Injection, Daily atbedtime Insulin Lispro 100 units/mL Inj (Humalog Sliding Scale) ??2-12 units, Subcutaneous Injection, 3 times a day before meals NaCl 0.9% Flush 3ml (NaCL 0.9% Flush) ??3 mL, IV Push, Every 8 hours Pantoprazole 40 mg EC Tablet (Protonix 40 mg oral delayed release tablet) ??40 mg, By Mouth, Daily Sucralfate 1 Gm Tablet (sucralfate 1 gm oral tablet) ??1 Gm, By Mouth, 2 times a day before breakfast and dinne CONTINUOUS: (0) PRN: (14) Acetaminophen 325 mg Tablet (Acetaminophen Tablet) ??650 [...] ??3 mL, IV Push, Every 8 hours OxyCODONE 5 mg IR Tablet (oxyCODONE 5 mg oral tablet) ??5 mg, By Mouth, Every 6 hours Polyethylene Glycol 17 Gm Powder (MiraLax Powder) ??17 Gm 1 pack/packet, By Mouth, Daily Senna Tablet ??8.6 mg 1 tablet, By Mouth, 2 times a day Simethicone 80 mg Chewable Tablet (Simethicone Tablet) ??80 mg, Chew, 3 times a day ? Results Recent Labs BLOOD COUNT & DIFF WBC 9.1 k/mm3 ()?? 11/25/2023 08:11 RBC 3.21 m/mm3 (Low)?? 11/25/2023 08:11 Hgb 9.3 Gm/dL (Low)?? 11/25/2023 08:11 Hct 30.2 % (Low)?? 11/25/2023 08:11 MCV 94.1 femtoliters ()?? 11/25/2023 08:11 MCH 29.0 pg ()?? 11/25/2023 08:11 MCHC 30.8 g/dL (Low)?? 11/25/2023 08:11 Platelet Count 220 k/mm3 ()?? 11/25/2023 08:11 RDW-SD 53.6 femtoliters (High)?? 11/25/2023 08:11 MPV 10.9 femtoliters ()?? 11/25/2023 08:11 Nucleated RBC (Automated) 0.0 #/100 WBC'S ()?? 11/25/2023 08:11 Abs. NRBC 0.0 k/mm3 ()?? 11/25/2023 08:11 ?? CHEM GENERAL Sodium 153 mmol/L (Critical)?? 11/25/2023 08:11 Potassium 4.1 mmol/L ()?? 11/25/2023 08:11 Chloride 122 mmol/L (High)?? 11/25/2023 08:11 Bicarbonate Level 19 mmol/L (Low)?? 11/25/2023 08:11 Anion Gap 12 ()?? 11/25/2023 08:11 Glucose Level 119 mg/dL (High)?? 11/25/2023 08:11 Glucose, POC 102 mg/dL (High)?? 11/25/2023 11:06 BUN 51 mg/dL (High)?? 11/25/2023 08:11 Creatinine-Blood 2.24 mg/dL (High)?? 11/25/2023 08:11 Estimated GFR Creatinine 23 ML/MIN/1.73 M2 ()?? 11/25/2023 08:11 Osmolality 323 mOs/kg (High)?? 11/25/2023 08:11 Calcium 8.4 mg/dL (Low)?? 11/25/2023 08:11 Magnesium 2.3 mg/dL ()?? 11/25/2023 08:11 ?? URINE OTHER Sodium, Urine Random 79 mmol/L ()?? 11/25/2023 10:30 Osmolality, Urine Random 437 mOsm/kg ()?? 11/25/2023 10:30 ? * Chucho Carroll MD: PERFORM Event Display: Consultation Note Authored Date: RENAL ATTENDING ADDENDUM:??I have seen and evaluated this patient. I have discussed the case and its management with the resident/team as documented in the resident/team note on the day of service. The details of the case including pertinent labs and clinical findings were confirmed by me. The planwas formulated with the student/resident/fellow/PA/MAILER APPRENTICE as outlined below.?? * Serina CABRERA, [place]: PERFORM, MODIFY, MODIFY Event Display: Consultation Note Authored Date: Patient: ??GLADIS GILBERT ? Age:??72 Years?Sex:??Female?:??1950?? Chief Complaint/Reason for Consult Left hip pain s/p fall History of Present Illness Elder is a??primarily Azerbaijani-speaking 72-year-old female with documented history of dementia,??HTN, HLD,??insulin-dependent type 2 DM,??TIA,??liver cirrhosis,??CKD,??amongst others; who presents to the ED at [facility] by EMS for evaluation of left hip pain s/p mechanical fall. ??Patient was evidently??vo miting and subsequently??slipped and fell on her own??vomit. ??She was unable to get herself off the floor, utilized her life alert button to notify EMS.?? Per EMS report to??ED, patient's primary caregiver??is her 17-year-old grandson, who was apparently unaware that the patient had even fallen. ?? Preliminary ED evaluation??demonstrated??a shortened and externally??rotated left limb, with radiographs confirming??left intertrochanteric femur fracture. Orthopedic consultation of the request of Dr. John for treatment recommendations of the above. Review of Systems Denies fevers, chills or sweats. ??Denies chest pain. ??Denies other injuries or painful joints. ??All others as per HPI Physical Exam Vitals & Measurements T:??98.8?F?? HR:??106??(Peripheral)?? RR:??21?? BP:??164/90?? SpO2:??100%?? HEENT: Normocephalic, atraumatic Cardiac: Per primary team Pulmonary: Per primary team Abdomen: Intermittently retching, no active vomiting. ?? RUE: Full, supple, nonpainful range of motion of shoulder, elbow, wrist and digits. ??No tenderness to palpation. ??Grossly neurovascularly intact radial, median, ulnar nerve distributions. ?? LUE: Full, supple, nonpainful range of motion of shoulder, elbow, wrist and digits. ??No tendernessto palpation. Grossly neurovascularly intact radial, median, ulnar nerve distributions. ?? RLE: Full, supple, non-painful range of motion of the hip, knee, foot and ankle. ??No tenderness topalpation. Calf supple and nontender. ??Active dorsiflexion and plantar flexion strength. ??Grosslyneurovascularly intact. ?? LLE:??+??Shortened and externally rotated limb.?? TTP about the lateral hip and groin with developing soft tissue edema,??no ecchymosis or??other??skin changes.?? The knee is held in a state of flexion at approximately 45 degrees for comfort, guarded movements due to pain elicited at the hip.?? Otherwise nontender to palpation about the distal femur,??knee,??ankle, foot and toes. ??Calf is supplenontender. ??Active dorsiflexion/plantarflexion ability. ??Grossly neurovascularly intact. Assessment/Plan Impression:??Acute left intertrochanteric??femur fracture???operative ?? Laboratories demonstrate leukocytosis to 15.1 with left shift. Glucose 432 with anion gap 18. Creatinine 1.92 with GFR 27 which appears to be patient's baseline. ?? Plan: Patient is admitted to the medical service. ??Orthopedics will follow. ??Preoperative medical optimization is requested. ??Patient will be kept n.p.o.for possible surgery later this morning/afternoon. ??Recommend strict nonweightbearing status, elevation, pain control and DVT prophylaxis. Patient is added to the orthopedic trauma surgery OR add on list with plan for surgical fixation when OR schedule allows. ??This was discussed with the patient who voiced understanding. ??Questions are asked and answered. ?? Case will be discussed with??Dr Garza? Problem List/Past Medical History Ongoing Arthritis Asthma Brain TIA CAD (coronary artery disease) Chronic anemia Cirrhosis CKD (chronic kidney disease) Dementia Depression DM2 (diabetes mellitus, type 2) HTN (hypertension) Hyperkalemia Hyperlipidemia Insomnia Obese class I Obese class I Obese class I Procedure/Surgical History Colonoscopy, flexible; with removal of tumor(s), polyp(s), or other lesion(s) by snare technique: 10/05/19 EGD - Esophagogastroduodenoscopy: 10/04/19 Cholecystectomy Home Medications Amlodipine: 5 mg = 1 tablet, By Mouth, Daily Ascorbic Acid: 500 mg = 1 tablet, By Mouth, Daily Aspirin: 81 mg = 1 tablet, By Mouth, Daily Clindamycin Topical: 1 applicator, Vaginally, Daily at bedtime Fluticasone Nasal: 1 sprays, Nares, Both, 2 times a day Insulin Glargine: 15 units, Subcutaneous Injection, Daily at bedtime Insulin Lispro linaclotide: 145 mcg = 1 capsule, By Mouth, Daily Pantoprazole: 40 mg = 1 tablet, By Mouth, Daily sitagliptin: 50 mg = 1 tablet, By Mouth, Daily Sucralfate: 1 Gm = 1 tablet, By Mouth, 2 times a day Ursodiol: 500 mg = 1 tablet, By Mouth, 2 times a day Allergies NKA Social History Baseline dementia.?? Independently moves around baseline.?? Lives with daughter and family. No history of bleeding dyscrasias, hypercoagulability, or adverse anesthetic response. Family History Mother: Alzheimer disease; CAD - Coronary artery disease; Cancer of breast; Cancer of colon; Diabetes mellitus type II Radiology 2 view radiographs of the left femur independently reviewed, demonstrating what appears to be a an acute, comminuted, intertrochanteric femur fracture. ?? 2 view radiographs of the right femur independently reviewed, demonstrating no obvious acute fracture or dislocation. Lab Results Labs Last 24 Hours BLOOD COUNT & DIFF ? Event Name?? Event Result?? Date/Time?? WBC 15.1 k/mm3??High 11/22/23 03:18:00 RBC 3.47 m/mm3??Low 11/22/23 03:18:00 Hgb 10.1 Gm/dL??Low 11/22/23 03:18:00 Hct 31.3 %??Low 11/22/23 03:18:00 MCV 90.2 femtoliters 11/22/23 03:18:00 MCH 29.1 pg 11/22/23 03:18:00 MCHC 32.3 g/dL??Low 11/22/23 03:18:00 Platelet Count 245 k/mm3 11/22/23 03:18:00 MPV 11.2 femtoliters 11/22/23 03:18:00 Nucleated RBC (Automated) 0 #/100 WBC'S 11/22/23 03:18:00 ? CHEM GENERAL ? Event Name?? Event Result?? Date/Time?? Sodium 143 mmol/L 11/22/23 03:18:00 Chloride 105 mmol/L 11/22/23 03:18:00 Bicarbonate Level 20 mmol/L??Low 11/22/23 03:18:00 Anion Gap 18??High 11/22/23 03:18:00 Glucose Level 432 mg/dL??High 11/22/23 03:18:00 BUN 59 mg/dL??High 11/22/23 03:18:00 Creatinine-Blood 1.92 mg/dL??High 11/22/23 03:18:00 Phosphorus 4.1 mg/dL 11/22/23 03:18:00 Magnesium 2.1 mg/dL 11/22/23 03:18:00 Alkaline Phosphatase 258 units/L??High 11/22/23 03:18:00 Lipase 91 units/L??High 11/22/23 03:18:00 AST (SGOT) 29 units/L 11/22/23 03:18:00 ALT (SGPT) 20 units/L 11/22/23 03:18:00 Bilirubin, Total 0.5 mg/dL 11/22/23 03:18:00 ? Note * Terrance Roy RN: PERFORM Event Display: Discharge/Transfer Note Hospital Authored Date: [id number] Nursing Discharge Note Entered On: 12/01/2023 16:00 EDT Performed On: 12/01/2023 15:59 EDT by Terrance Roy RN Nursing Discharge Note 2 Discharge Time : 12/01/2023 13:30 EDT Discharge Level of Care at Discharge : nursing home facility Discharge Nursing Homes/Rehab Facilities : [facility] Patient Left Unit Via : Ambulance Patient Accompanied Off Unit with : Responsible adult, Ambulance/Chair Van Personnel Handover Given to Transport Personnel : Yes DC Instructions Provided & Signed by Pt : No Patient Understands D/C Instructions : No Verbalization of Discharge Plan Comments : Rehab Patient Instructions Discharge Signed : No Did Pt have Specialty Bed or Wound Vac : No Terrance Roy RN - 12/01/2023 15:59 EDT * Devyn FRANKLIN, Eral Conley: PERFORM Event Display: Discharge/Transfer Note Hospital Authored Date: [id number] Patient: ??GLADIS GILBERT ? Age:??72 Years?Sex:??Female?:??1950?? Patient Information Discharge Location: [facility] Primary Care Physician: Marcin FRANKLIN , Teresa Watters Admit Date/Time: 11/22/23 07:42 Discharge Disposition Discharge Disposition: ?? Discharge Diagnosis Femoral neck fracture (S72.009A) Preoperative clearance (Z01.818) Troponin level elevated (R79.89) Elevated WBC count (D72.829) CKD stage 3 secondary to diabetes (E11.22) Anemia (D64.9) Type 2 diabetes mellitus with insulin therapy (E11.9) HTN (hypertension) (I10) GERD (gastroesophageal reflux disease) (K21.9) Dementia (F03.90) Femoral neck fracture (S72.009A) _ Discharge Medications Amlodipine (Norvasc 5 mg oral tablet)?5?Milligram?1?tablet?By Mouth?Daily?for 30?Days Ascorbic Acid (Vitamin C 500 mg oral tablet)?1?tab(s)?500?Milligram?By Mouth?Daily Aspirin (aspirin 81 mg oral delayed release tablet)?81?Milligram?1?tablet?By Mouth?Daily Ferrous Sulfate (ferrous sulfate 325 mg oral tablet)?1?tab(s)?325?Milligram?By Mouth?Daily Fluticasone Nasal (fluticasone 50 mcg/inh nasal spray)?1?spray(s)?Nares, Both?2 times aday Heparin?1?Milliliter?5,000?unit(s)?Subcutaneous Injection?3 times a day Insulin Glargine (Lantus Inj)?15?unit(s)?Subcutaneous Injection?Daily at bedtime Insulin Lispro (insulin lispro 100 u/ml subcutaneous injection)?2-12 units?Subcutaneous Injection?3 times a day before meals?<< Sliding Scale Comments >>150 - 199 ?? 2 units Call if less than 88160 - 249 ?? 4 units 250 - 299 ?? 6 units 300 - 349 ?? 8 units 350 - 399 ?? 10 units 400 - 449 ?? 12 units Call if greater than 400<< Sliding Scale Comments >> linaclotide (Linzess 145 mcg oral capsule)?1?capsule?145?Microgram?By Mouth?Daily Melatonin (melatonin 3 mg oral tablet)?3?Milligram?By Mouth?Daily at bedtime?as needed?Insomnia Oxycodone (oxyCODONE 5 mg oral tablet)?5?Milligram?1?tablet?By Mouth?Every 6 hours?as needed?Pain , Moderate Pantoprazole (Protonix 40 mg oral delayed release tablet)?1?tab(s)?40?Milligram?By Mouth?Daily Polyethylene Glycol 3350 (MiraLax Powder)?1?pack/packet?17?gram?By Mouth?Daily?as needed?Constipation Senna (senna 187 mg oral tablet)?1?tab(s)?8.6?Milligram?By Mouth?2 times a day?as needed?Constipation sitagliptin (Januvia 50 mg oral tablet)?1?tab(s)?50?Milligram?By Mouth?Daily sodium bicarbonate (sodium bicarbonate 650 mg oral tablet)?650?Milligram?By Mouth?2 times a day Sucralfate (sucralfate 1 gm oral tablet)?1?gram?1?tablet?By Mouth?2 times a day Ursodiol (ursodiol 500 mg oral tablet)?1?tab(s)?500?Milligram?By Mouth?2 times a day ? Medications Started oxy, bicarb Allergies Allergies ?(Active and Proposed Allergies Only) morphine? (Severity: Unknown severity, Onset: Unknown) ?Reactions: patient sensitive to morphine ? Hospital Course 72 y/o female with h/o dementia, hypertension, hyperlipidemia, insulin-dependent type 2 diabetes mellitus, TIA, cirrhosis of liver, CKD who did come with a complaint of mechanical fall.??She is foundto have comminuted angulated left intertrochanteric femur fracture and admitted to the medical teamfor further management. ? Left Femoral neck fracture (S72.009A):??/ Mechanical fall: ?? --X ray showed?Comminuted angulated left intertrochanteric femoral neck fracture, likely with extends into the femoral neck ?? --s/p??ORIF on 11/25 ?? Ortho cleared for discharge She is being discharged to rehab in a stable condition ?? f/u with Dr. Garza in 4-5 weeks, [phone] ?- Please remove sergio 2 weeks post op, contact [facility] with wound redness, drainage, increased pain, falls, change in alignment for a sooner follow up visit ? Acute kidney injury on top of chronic kidney disease stage III: ?? Acidosis ?? -- Patient's baseline creatinine appears to be around 1.2 - 1.6; now peaked to 2.6 and improved to 1.9 and now 2.0 ?? -s/p IVF ?? sodium bicarb started as per renal. ?? Will continue sodium bicarb f/up with renal ? Hypernatremia: resolved ?? Hyperglycemia and Type 2 diabetes mellitus with insulin therapy (E11.9):??- ?? Will resume home meds including Lantus ? Troponin level elevated (R79.89):? --??2 troponin are flat.??High troponin most likely due to low creatinine clearance. ?? HTN (hypertension) (I10):?Will continue with amlodipine. ?? GERD (gastroesophageal reflux disease) (K21.9):??Will continue with the PPI. ? VTE Prophylaxis: SQ Heparin ?? Code: Full code ? Objective Vital Signs?? Temperature: 98.6 DegF (12/01/23 07:29:00) Temperature Route: Oral (12/01/23 07:29:00) Pulse Rate: 76 bpm (12/01/23 07:29:00) Respiratory Rate: 18 br/min (12/01/23 08:25:00) Systolic Blood Pressure:??154 mm Hg??High (12/01/23 08:25:00) Diastolic Blood Pressure: 56 mm Hg (12/01/23 08:25:00) Blood pressure sites: Arm, left (12/01/23 07:29:00) Mean Arterial Pressure: 89 mm Hg (12/01/23 07:29:00) Pulse Pressure: 98 mm Hg (12/01/23 07:29:00) Oxygen Saturation: 100 % (12/01/23 07:29:00) Mode of Delivery (Oxygen): Room air (12/01/23 07:29:00) Early Warning Score: 0 (12/01/23 08:26:56) ? . Physical Exam Awake, alert, oriented Lungs: Clear to auscultation bilateral, no wheezing no rales Heart: Regular rate and rhythm, no murmur, no rub or gallop Abdomen: Soft, nontender, nondistended; Bowel sounds present Extremity: LLE:?? Aquacel dressings in place, minimal staining noted. Thigh with moderate soft edema, non painful to palpation?? Neurological: No focal deficit Psychiatric: Normal mood and affect Surgical Procedures Intramedullary Nailing Femur Intermedull 11/26/2023 17:10 Pending Results Add On Lab Order ordered on 11/22/2023 Add On Lab Order ordered on 11/25/2023 BUN ordered on 11/28/2023 BUN ordered on 11/29/2023 Basic Metabolic Panel ordered on 12/01/2023 CBC ordered on 11/29/2023 Calcium Level ordered on 11/28/2023 Calcium Level ordered on 11/29/2023 Creatinine ordered on 11/28/2023 Creatinine ordered on 11/29/2023 Electrolytes ordered on 11/28/2023 Electrolytes ordered on 11/29/2023 Glucose Level ordered on 11/28/2023 Glucose Level ordered on 11/29/2023 Hgb + Hct ordered on 12/01/2023 Hold Lavender Tube (BB) ordered on 11/22/2023 Follow-Up Appointments Added Follow Up ?Time Frame ?Comments Chucho Carroll MD?1 to 2 weeks Madhuri Garza MD?4 to 5 weeks Home Health Face to Face ^[facility] Results Discharge Labs BLOOD BANK Blood Type A Positive ()?? 11/26/2023 16:14 Antibody Screen Negative ()?? 11/26/2023 16:14 ?? BLOOD COUNT & DIFF WBC 10.7 k/mm3 ()?? 11/27/2023 21:45 RBC 2.63 m/mm3 (Low)?? 11/27/2023 21:45 Hgb 7.4 Gm/dL (Low)?? 11/30/2023 01:09 Hct 24.5 % (Low)?? 11/30/2023 01:09 MCV 92.4 femtoliters ()?? 11/27/2023 21:45 MCH 28.5 pg ()?? 11/27/2023 21:45 MCHC 30.9 g/dL (Low)?? 11/27/2023 21:45 Platelet Count 236 k/mm3 ()?? 11/27/2023 21:45 RDW-SD 50.4 femtoliters (High)?? 11/27/2023 21:45 MPV 11.4 femtoliters ()?? 11/27/2023 21:45 Nucleated RBC (Automated) 0.7 #/100 WBC'S ()?? 11/27/2023 21:45 Abs. NRBC 0.1 k/mm3 ()?? 11/27/2023 21:45 Abs. Neut 10.4 k/mm3 (High)?? 11/23/2023 06:38 Abs. Lymph 1.2 k/mm3 ()?? 11/23/2023 06:38 Abs. Shackelford 0.9 k/mm3 ()?? 11/23/2023 06:38 Abs. Eo 0.2 k/mm3 ()?? 11/23/2023 06:38 Abs. Baso 0.0 k/mm3 ()?? 11/23/2023 06:38 Neut % 81.5 % (High)?? 11/23/2023 06:38 Lymph % 9.4 % (Low)?? 11/23/2023 06:38 Shackelford % 6.9 % ()?? 11/23/2023 06:38 Eos % 1.5 % ()?? 11/23/2023 06:38 Baso % 0.2 % ()?? 11/23/2023 06:38 Imm Gran 0.5 % ()?? 11/23/2023 06:38 Abs. Imm Gran 0.1 k/mm3 ()?? 11/23/2023 06:38 ?? BLOOD GAS Specimen Type - Blood Gas VENOUS ()?? 11/22/2023 05:34 pH, Venous 7.31 (Low)?? 11/22/2023 23:10 pCO2, Venous 49 mm Hg ()?? 11/22/2023 05:34 pO2, Venous 33 mm Hg (Low)?? 11/22/2023 05:34 Bicarbonate, Estimated(Venous) 23 mmol/L ()?? 11/22/2023 05:34 ? CARDIAC CK, Total 300 units/L (High)?? 11/22/2023 03:18 Nt-Probnp 423 pg/mL (High)?? 11/22/2023 03:18 High Sensitivity Troponin (HSTnT) 28 ng/L (High)?? 11/22/2023 05:34 ? CHEM GENERAL Sodium 138 mmol/L ()?? 11/30/2023 01:09 Potassium 3.9 mmol/L ()?? 11/30/2023 01:09 Chloride 106 mmol/L ()?? 11/30/2023 01:09 Bicarbonate Level 19 mmol/L (Low)?? 11/30/2023 01:09 Anion Gap 13 ()?? 11/30/2023 01:09 Glucose Level 135 mg/dL (High)?? 11/30/2023 01:09 Glucose, POC 238 mg/dL (High)?? 12/01/2023 07:29 Beta Hydroxybutyrate 1.00 mmol/L (High)?? 11/22/2023 03:18 BUN 34 mg/dL (High)?? 11/30/2023 01:09 Creatinine-Blood 2.04 mg/dL (High)?? 11/30/2023 01:09 Estimated GFR Creatinine 25 ML/MIN/1.73 M2 ()?? 11/30/2023 01:09 Osmolality 323 mOs/kg (High)?? 11/25/2023 08:11 Calcium 8.2 mg/dL (Low)?? 11/30/2023 01:09 Phosphorus 4.1 mg/dL ()?? 11/22/2023 03:18 Magnesium 2.3 mg/dL ()?? 11/25/2023 08:11 Protein, Total 6.3 Gm/dL ()?? 11/23/2023 06:38 Albumin 3.6 Gm/dL ()?? 11/23/2023 06:38 AG Ratio 1.3 ()?? 11/23/2023 06:38 Alkaline Phosphatase 253 units/L (High)?? 11/23/2023 06:38 Lipase 91 units/L (High)?? 11/22/2023 03:18 AST (SGOT) 39 units/L (High)?? 11/23/2023 06:38 ALT (SGPT) 27 units/L ()?? 11/23/2023 06:38 Bilirubin, Total 0.6 mg/dL ()?? 11/23/2023 06:38 ? ENDOCRINE/TUMOR MARKER TSH 10.10 uIU/mL (High)?? 11/22/2023 03:18 Free T4 1.37 ng/dL ()?? 11/22/2023 03:18 ?? HEME OTHER Hold Lavender Top SPECIMEN DISCARDED AFTER 24 HOURS. ()?? 11/27/2023 21:45 ? MISC. CHEMISTRY Hold Gel Top SPECIMEN DISCARDED AFTER 1 WEEK ()?? 11/27/2023 12:02 ? UA/URINALYSIS Hold Urine Testing Available 24 hours from Time of Collection ()?? 11/25/2023 10:30 ? URINE OTHER Sodium, Urine Random 79 mmol/L ()?? 11/25/2023 10:30 Osmolality, Urine Random 437 mOsm/kg ()?? 11/25/2023 10:30 ?? VIROLOGY COVID-19 by RT-PCR NEGATIVE ()?? 11/22/2023 03:08 ? Microbiology ?? COVID-19 (Novel Coronavirus), Rapid PCR?? Completed?? Source: Nasal Body Site: Nose Collected Dt/Tm: 11/22/2023 02:31 Last Updated Dt/Tm: 11/22/2023 04:02 ? 35 minutes spent on discharge * Alesia ABEL, Leela Heck: PERFORM, SIGN, VERIFY Event Display: Case Management Discharge Plan Authored Date: [id number] Patient: GLADIS GILBERT Age: 72 years Sex: Female : 1950 Associated Diagnoses: None Author: Alesia ABEL, Leela Heck Discharge Plan Case Management Discharge Plan : Case Management Discharge Plan Data 12/01/2023 10:54 EDT Discharge Level of Care at Discharge nursing home facility Discharge Nursing Homes/Rehab Facilities [facility] Discharge Transportation Arranged [facility] [address] [place] [address] Discharge Arranged Transport Date/Time 12/01/2023 13:00 Mode of Transportation Arranged Ambulance Service Categories #1 Occupational Therapy, Physical Therapy, Senior Living Service Start Date and Time #1 12/01/2023 13:00 Service Comments #1 You are going to rehab today. * Terrance Roy RN: PERFORM Event Display: Patient Education/Instruction Authored Date: [id number] Inpatient Adult Discharge Instructions. [address] [address] Name: GLADIS GILBERT : 1950?? Visit: 11/22/2023 07:42?? Current Date: 12/01/2023 13:18 ?? Account: [id number]?? Inpatient Adult Discharge Instructions We would like [...] and their families. Surveys are administered by [employer] ?? If further treatment with your primary care physician or another doctor is recommended, it is important for you to keep the appointment. Call your primary care physician or return to the Emergency Department immediately if your condition worsens, fails to improve, or new symptoms develop. If you need to find a doctor, you can call [facility] for a referral at [phone] or toll free at [email or web address] ([phone]) or log in to [email or web address].. ?? [facility], in keeping with [facility] guidance, no longer requires face masks for [...] a health care joe of your choosing. [employer] is a website that allows you to securely view your medical information including your hospital discharge summary, office visit summaries, medications and follow-up visits. You can also request appointments, renew medications, and request access to your medical information using a health care joe of your choosing, or just ask a question. You can enroll at [email or web address] or register during your next office visit. You have been discharged from [facility], Patient Care Unit: SW7??. If you have any questions regarding these instructions, including results of studies pending, afteryou leave, please call us and we will be happy to assist you 24/11. [facility] Your Care Team Attending Physician Earl Shepard MD?? Consulting Providers Earl Shepard MD?? Discharging Providers Earl Shepard MD Reason for Your Visit comes from home. lives with 17 y/o grandson. ems came because the pt's life alert went off when shefell, person at house did not called ems or know she had fallen. pt states she threw up and trippedin the vomit. pt was discharged this morning from ER.?? Your Diagnosis Fall Preoperative clearance Troponin level elevated Elevated WBC count CKD stage 3 secondary to diabetes Anemia Type 2 diabetes mellitus with insulin therapy HTN (hypertension) GERD (gastroesophageal reflux disease) Tests Performed Below is a partial list of the tests performed during your hospitalization. You may have had other tests and procedures not included in this list. Please discuss all test results with your provider. Basic Metabolic Panel?-- Results Pending -- Beta Hydroxybutyrate BUN?-- Results Pending -- Calcium Level?-- Results Pending -- CBC?-- Results Pending -- CBC w/ Differential Comprehensive Metabolic Panel COVID-19 (Novel Coronavirus), Rapid PCR CPK Total Only Creatinine?-- Results Pending -- Electrolytes?-- Results Pending -- FREE T4 Glucose Level?-- Results Pending -- GLUCOSE POC H + H?-- Results Pending -- High??Sensitivity??Troponin T HOLD GEL TUBE HOLD LAVENDER TUBE HOLD URINE Lipase Magnesium Level OSMOLALITY, SERUM pH Venous Phosphorus Level ProBNP Sodium Urine Troponin T, High Sensitivity TSH with T4 Reflex (Adults Only) Type and Screen Urine Osmolality VBG CT Abd/Pelvis W/ IV Contrast Only CT Cervical Spine W/O Contrast CT Chest W/ IV Contrast CT Head/Brain W/O Contrast XR C-Arm < 1 Hour XR Femur 2 Views Left XR Femur 2 Views Right XR Hip Comp 2 Views Left XR Pelvis 1 or 2 Views Add On Lab Order?? B Type Natriuretic Peptide (ProBNP)?? BUN?? Basic Metabolic Panel?? Beta Hydroxybutyrate?? Blood Gas Venous (VBG)?? CBC?? CBC w/ Differential?? COVID-19 (Novel Coronavirus), Rapid PCR?? CPK Total Only?? CT Abd/Pelvis W/ IV Contrast Only?? CT Cervical Spine W/O Contrast?? CT Chest W/ Contrast (CT Chest W/ IV Contrast)?? CT Head/Brain W/O Contrast?? Calcium Level?? Comprehensive Metabolic Panel?? Creatinine?? Electrolytes?? Free T4?? Glucose Level?? Glucose POC?? Hgb + Hct (H + H)?? High??Sensitivity??Troponin T (Troponin T, High Sensitivity)?? Hold Gel Top Tube (HOLD GEL TUBE)?? Hold Lavender Top Tube (HOLD LAVENDER TUBE)?? Hold Lavender Tube (BB)?? Hold Urine?? Lipase?? Magnesium Level?? Osmolality (OSMOLALITY, SERUM)?? Osmolality Urine (Urine Osmolality)?? Phosphorus Level?? Sodium Urine?? TSH with T4 Reflex (Adults Only)?? Type and Screen?? C-Arm < 1 Hour?? Femur 2 Views Left (XR Femur 2 Views Left)?? Femur 2 Views Right (XR Femur 2 Views Right)?? Hip Comp 2 Views Left?? Pelvis 1 or 2 Views?? pH Venous?? Primary Care Provider Marcin FRANKLIN , Teresa Watters? Advance Directive Health Care Proxy on File Yes - Health Care Proxy Discharge Vitals Temperature: 98.6 DegF Weight: 73.1 kg Pulse Rate: 76 bpm ?? Respiratory Rate: 18 br/min ?? Systolic Blood Pressure:??154 mm Hg??High ?? Diastolic Blood Pressure: 56 mm Hg ?? Oxygen Saturation: 100 % ?? Studies Pending All studies ordered during this hospital stay have been completed unless listed below. Please discuss all pending results with your provider listed above in these instructions. ?? Add On Lab Order?? BUN?? Basic Metabolic Panel?? CBC?? Calcium Level?? Creatinine?? Electrolytes?? Glucose Level?? Hgb + Hct (H + H)?? Hold Lavender Tube (BB)?? What to do next Instructions From Your Doctor ?? Orders? 12/01/23 11:20:00 EDT?? Prescriptions??, ??12/01/23 11:20:00 EDT?? You Need to Schedule the Following Appointments Follow Up with??Chucho Carroll MD When:??Within 1 to 2 weeks Follow Up with??Greg FRANKLIN, Madhuri Kearns When:??Within 4 to 5 weeks Discharge Medications GLADIS GILBERT :1950 Visit Date:11/22/2023 Medications: Please continue your medications until treatment is completed or stopped by your provider. Medications not listed below should be discontinued. Discuss any questions related to medications with your provider. What How Much When Instructions Next Dose New Heparin 5,000 unit(s) Subcutaneous Injection 3 times a day 2pm New Melatonin (melatonin 3 mg oral tablet) 3 Milligram Oral Daily at Bedtime as needed for Insomnia at bedtime New Oxycodone (oxyCODONE 5 mg oral tablet) 1 tab(s) Oral Every 6 hours as needed for Pain , Moderate Printed Prescription 2:30pm New Polyethylene Glycol 3350 (MiraLax Powder) 17 gram Oral Daily as needed for Constipation as needed New Senna (senna 187 mg oral tablet) 1 tab(s) Oral Twice a day as needed for Constipation as needed New sodium bicarbonate (sodium bicarbonate 650 mg oral tablet) 650 Milligram Oral Twice a day 7pm Changed Insulin Lispro (insulin lispro 100 u/ ml subcutaneous injection) 2-12 units Subcutaneous Injection 3 times a day before meals << Sliding Scale Comments >> 150 - 199 ?? 2 units Call if less than 70 200 - 249 ?? 4 units 250 - 299 ?? 6 units 300 - 349 ?? 8 units 350 - 399 ?? 10 units 400 - 449 ?? 12 units Call if greater than 400 << Sliding Scale Comments >> ?? Before meals Unchanged Amlodipine (Norvasc 5 mg oral tablet) 1 tab(s) Oral Daily Duration: 30 Days Tomorrow AM Unchanged Ascorbic Acid (Vitamin C 500 mg oral tablet) 1 tab(s) Oral Daily Tomorrow AM Unchanged Aspirin (aspirin 81 mg oral delayed release tablet) 1 tab(s) Oral Daily Tomorrow AM Unchanged Ferrous Sulfate (ferrous sulfate 325 mg oral tablet) 1 tab(s) Oral Daily Tomorrow AM Unchanged Fluticasone Nasal (fluticasone 50 mcg/ inh nasal spray) 1 spray(s) Nares, Both Twice a day 7pm Unchanged Insulin Glargine (Lantus Inj) 15 unit(s) Subcutaneous Injection Daily at Bedtime at bedtime Unchanged linaclotide (Linzess 145 mcg oral capsule) 1 capsule Oral Daily Tomorrow AM Unchanged Pantoprazole (Protonix 40 mg oral delayed release tablet) 1 tab(s) Oral Daily Tomorrow AM Unchanged sitagliptin (Januvia 50 mg oral tablet) 1 tab(s) Oral Daily Tomorrow AM Unchanged Sucralfate (sucralfate 1 gm oral tablet) 1 tab(s) Oral Twice a day Before dinner Unchanged Ursodiol (ursodiol 500 mg oral tablet) 1 tab(s) Oral Twice a day 7pm ?? What How Much When Comments Stop Taking Clindamycin Topical (Cleocin Vaginal 2% cream) 1 applicator Vaginally Daily at Bedtime Stop Taking Nystatin Topical (nystatin topical 370589 u/ gm powder) 1 joe Topically Twice a day Prescription Given During Visit Oxycodone (oxyCODONE 5 mg oral tablet) - 1 tablet = 5 mg, By Mouth, Every 6 hours, # 12 tablet, 0 Refills?? Laboratory Results Below is a partial list of the most recent Laboratory test results done prior to this discharge. You may have had other tests and procedures not included in this list. Please discuss all test resultswith your provider. Antibody Screen - Negative (11/22/2023) Blood Type - A Positive (11/22/2023) Beta Hydroxybutyrate (11/22/2023) ???Beta Hydroxybutyrate - 1.00 mmol/L CBC w/ Differential (11/23/2023) ???WBC - 12.8 k/mm3???RBC - 3.31 m/mm3???Hgb - 9.2 Gm/dL???Hct - 30.4 %???MCV - 91.8 femtoliters???MCH - 27.8 pg???MCHC - 30.3 g/dL???Platelet Count - 226 k/mm3???RDW-SD - 51.8 femtoliters???MPV - 11.3 femtoliters???Nucleated RBC (Automated) - 0.0 #/100 WBC'S???Abs. NRBC - 0.0 k/mm3???Abs. Neut - 10.4 k/mm3???Abs. Lymph - 1.2 k/mm3???Abs. Shackelford - 0.9 k/mm3???Abs. Eo - 0.2 k/mm3???Abs. Baso - 0.0 k/mm3???Neut % - 81.5 %???Lymph % - 9.4 %???Shackelford % - 6.9 %???Eos % - 1.5 %???Baso % - 0.2 %???Imm Gran - 0.5 %???Abs. Imm Gran - 0.1 k/mm3 Comprehensive Metabolic Panel (11/23/2023) ???Sodium - 145 mmol/L???Potassium - 5.1 mmol/L???Chloride - 108 mmol/L???Bicarbonate Level - 24 mmol/L???Anion Gap - 13???Glucose Level - 253 mg/dL???BUN - 67 mg/dL???Creatinine-Blood - 2.61 mg/dL???Estimated GFR Creatinine - 19 ML/MIN/1.73 M2???Calcium - 9.4 mg/dL???Protein, Total - 6.3 Gm/dL???Albumin - 3.6 Gm/dL???AG Ratio - 1.3???Alkaline Phosphatase - 253 units/L???AST (SGOT) - 39 units/L???ALT (SGPT) - 27 units/L???Bilirubin, Total - 0.6 mg/dL COVID-19 (Novel Coronavirus), Rapid PCR (11/22/2023) ???COVID-19 by RT-PCR - NEGATIVE CPK Total Only (11/22/2023) ???CK, Total - 300 units/L FREE T4 (11/22/2023) ???Free T4 - 1.37 ng/dL GLUCOSE POC (12/01/2023) ???Glucose, POC - 324 mg/dL High??Sensitivity??Troponin T (11/22/2023) ???High Sensitivity Troponin (HSTnT) - 26 ng/L HOLD GEL TUBE (11/27/2023) ???Hold Gel Top - SPECIMEN DISCARDED AFTER 1 WEEK HOLD LAVENDER TUBE (11/27/2023) ???Hold Lavender Top - SPECIMEN DISCARDED AFTER 24 HOURS. HOLD URINE (11/25/2023) ???Hold Urine - Testing Available 24 hours from Time of Collection Lipase (11/22/2023) ???Lipase - 91 units/L Magnesium Level (11/25/2023) ???Magnesium - 2.3 mg/dL OSMOLALITY, SERUM (11/25/2023) ???Osmolality - 323 mOs/kg pH Venous (11/22/2023) ???pH, Venous - 7.31 Phosphorus Level (11/22/2023) ???Phosphorus - 4.1 mg/dL ProBNP (11/22/2023) ???Nt-Probnp - 423 pg/mL Sodium Urine (11/25/2023) ???Sodium, Urine Random - 79 mmol/L Troponin T, High Sensitivity (11/22/2023) ???High Sensitivity Troponin (HSTnT) - 28 ng/L TSH with T4 Reflex (Adults Only) (11/22/2023) ???TSH - 10.10 uIU/mL Type and Screen (11/26/2023) ???Blood Type - A Positive???Antibody Screen - Negative Urine Osmolality (11/25/2023) ???Osmolality, Urine Random - 437 mOsm/kg VBG (11/22/2023) ???Specimen Type - Blood Gas - VENOUS???pH, Venous - 7.28???pCO2, Venous - 49 mm Hg???pO2, Venous -33 mm Hg???Bicarbonate, Estimated(Venous) - 23 mmol/L You will be contacted within 72 hours with your results. Allergies (NKA means No Known Allergies) morphine??(patient sensitive to morphine) Problems Active Problems??(15) Arthritis?? Asthma?? Brain TIA?? CAD (coronary artery disease)?? Chronic anemia?? Cirrhosis?? CKD (chronic kidney disease)?? Dementia?? Depression?? DM2 (diabetes mellitus, type 2)?? HTN (hypertension)?? Hyperkalemia?? Hyperlipidemia?? Insomnia?? Obese class I?? Education Materials Below is the list of Educational Leaflet Providered with your Discharge Instructions. Valuables and Belongings I fully understand and agree that [facility] accepts no responsibility for all my personal [...] witness Date for Pt to Sign Valuables/Belongings: 11/26/23 15:49:00 ?? Valuables & Belongings ?? Clothes Electronic devices Jewelry Monetary Items Personal devices Miscellaneous Medications (Valuables) Valuables at Bedside Shirt ? Dentures, full ? Valuables Sent Home ? Valuables Sent to Security ? Valuables Sent to Locker ? Other Discharge Information ? Case Management Discharge Plan?? Discharge Plan?? Discharge Agency Information?? Discharge Level of Care at Discharge: nursing home facility Service Start Date and Time #1: 12/01/23 13:00:00 Discharge Transportation Arranged: [facility] [address] [facility] ??[phone] Service Categories #1: Occupational Therapy, Physical Therapy, Senior Living Mode of Transportation Arranged: Ambulance Service Comments #1: You are going to rehab today. Discharge Arranged Transport Date/Time: 12/01/23 13:00:00 ?? Discharge Nursing Homes/Rehab Facilities: [facility] ? Pulmonary Rehab Status?? Pulmonary Rehab Discharge Status?? [...] are strongly encouraged to quit. Please call [employer] at [phone] or [phone] ([phone]) or log in to [email or web address] for referrals to smoking cessation programs. ?? 988 Suicide & Crisis Lifeline is available 24/11 if you or someone you know needs to find a reason to keep living. By calling 988 you'll be connected to a skilled, trained counselor at a crisis center in your area. INPATIENT DISCHARGE INSTRUCTIONS SIGNATURE PAGE GLADIS GILBERT Location:[facility] Registration Date and Time:11/22/2023 07:42 EDT Primary Care Physician: Marcin FRANKLIN , Teresa Watters, Attending Physician: Devyn FRANKLIN, Earl Conley, I GLADIS GILBERT, have received the above patient education materials/instructions and have verbalized understanding. If ambulance or transport services are being used I further acknowledge being givena choice of service. ?? If you need to contact me, please call me at this number: . Patient/Supervisor [employer] Name: Patient/Supervisor [employer] Signature: Relationship to Patient: Witness Name/Signature: Date: * Earl Shepard MD: PERFORM Event Display: Discharge/Transfer Note Hospital Authored Date: [id number] Patient: ??GLADIS GILBERT ? Age:??72 Years?Sex:??Female?:??1950?? Patient Information Discharge Location: [facility] Primary Care Physician: Teresa Sethi MD Admit Date/Time: 11/22/23 07:42 Discharge Disposition Discharge Disposition: ?? Discharge Diagnosis Femoral neck fracture (S72.009A) Preoperative clearance (Z01.818) Troponin level elevated (R79.89) Elevated WBC count (D72.829) CKD stage 3 secondary to diabetes (E11.22) Anemia (D64.9) Type 2 diabetes mellitus with insulin therapy (E11.9) HTN (hypertension) (I10) GERD (gastroesophageal reflux disease) (K21.9) Dementia (F03.90) Femoral neck fracture (S72.009A) _ Discharge Medications Amlodipine (Norvasc 5 mg oral tablet)?5?Milligram?1?tablet?By Mouth?Daily?for 30?Days Ascorbic Acid (Vitamin C 500 mg oral tablet)?1?tab(s)?500?Milligram?By Mouth?Daily Aspirin (aspirin 81 mg oral delayed release tablet)?81?Milligram?1?tablet?By Mouth?Daily Ferrous Sulfate (ferrous sulfate 325 mg oral tablet)?1?tab(s)?325?Milligram?By Mouth?Daily Fluticasone Nasal (fluticasone 50 mcg/inh nasal spray)?1?spray(s)?Nares, Both?2 times aday Heparin?1?Milliliter?5,000?unit(s)?Subcutaneous Injection?3 times a day Insulin Glargine (Lantus Inj)?15?unit(s)?Subcutaneous Injection?Daily at bedtime Insulin Lispro (insulin lispro 100 u/ml subcutaneous injection)?2-12 units?Subcutaneous Injection?3 times a day before meals?<< Sliding Scale Comments >>150 - 199 ?? 2 units Call if less than [address] - 249 ?? 4 units 250 - 299 ?? 6 units 300 - 349 ?? 8 units 350 - 399 ?? 10 units 400 - 449 ?? 12 units Call if greater than 400<< Sliding Scale Comments >> linaclotide (Linzess 145 mcg oral capsule)?1?capsule?145?Microgram?By Mouth?Daily Melatonin (melatonin 3 mg oral tablet)?3?Milligram?By Mouth?Daily at bedtime?as needed?Insomnia Oxycodone (oxyCODONE 5 mg oral tablet)?5?Milligram?1?tablet?By Mouth?Every 6 hours?as needed?Pain , Moderate Pantoprazole (Protonix 40 mg oral delayed release tablet)?1?tab(s)?40?Milligram?By Mouth?Daily Polyethylene Glycol 3350 (MiraLax Powder)?1?pack/packet?17?gram?By Mouth?Daily?as needed?Constipation Senna (senna 187 mg oral tablet)?1?tab(s)?8.6?Milligram?By Mouth?2 times a day?as needed?Constipation sitagliptin (Januvia 50 mg oral tablet)?1?tab(s)?50?Milligram?By Mouth?Daily sodium bicarbonate (sodium bicarbonate 650 mg oral tablet)?650?Milligram?By Mouth?2 times a day Sucralfate (sucralfate 1 gm oral tablet)?1?gram?1?tablet?By Mouth?2 times a day Ursodiol (ursodiol 500 mg oral tablet)?1?tab(s)?500?Milligram?By Mouth?2 times a day ? Medications Started oxy, bicarb Allergies Allergies ?(Active and Proposed Allergies Only) morphine? (Severity: Unknown severity, Onset: Unknown) ?Reactions: patient sensitive to morphine ? Hospital Course 72 y/o female with h/o dementia, hypertension, hyperlipidemia, insulin-dependent type 2 diabetes mellitus, TIA, cirrhosis of liver, CKD who did come with a complaint of mechanical fall.??She is foundto have comminuted angulated left intertrochanteric femur fracture and admitted to the medical teamfor further management. ? Left Femoral neck fracture (S72.009A):??/ Mechanical fall: ?? --X ray showed?Comminuted angulated left intertrochanteric femoral neck fracture, likely with extends into the femoral neck ?? --s/p??ORIF on 11/25 ?? Ortho cleared for discharge She is being discharged to rehab in a stable condition ?? f/u with Dr. Garza in 4-5 weeks, [phone] ?- Please remove sergio 2 weeks post op, contact [facility] with wound redness, drainage, increased pain, falls, change in alignment for a sooner follow up visit ? Acute kidney injury on top of chronic kidney disease stage III: ?? Acidosis ?? -- Patient's baseline creatinine appears to be around 1.2 - 1.6; now peaked to 2.6 and improved to 1.9 and now 2.1 ?? -s/p IVF ?? sodium bicarb started as per renal. ?? Will continue sodium bicarb f/up with renal ? Hypernatremia: resolved ?? Hyperglycemia and Type 2 diabetes mellitus with insulin therapy (E11.9):??- ?? Will resume home meds including Lantus ? Troponin level elevated (R79.89):? --??2 troponin are flat.??High troponin most likely due to low creatinine clearance. ?? HTN (hypertension) (I10):?Will continue with amlodipine. ?? GERD (gastroesophageal reflux disease) (K21.9):??Will continue with the PPI. ? VTE Prophylaxis: SQ Heparin ?? Code: Full code ? Objective Vital Signs?? Temperature: 98.7 DegF (11/30/23 14:27:00) Temperature Route: Oral (11/30/23 14:27:00) Pulse Rate: 88 bpm (11/30/23 14:27:00) Respiratory Rate: 18 br/min (11/30/23 14:27:00) Systolic Blood Pressure:??140 mm Hg??High (11/30/23 14:27:00) Diastolic Blood Pressure:??98 mm Hg??High (11/30/23 14:27:00) Blood pressure sites: Arm, left (11/30/23 14:27:00) Mean Arterial Pressure: 112 mm Hg (11/30/23 14:27:00) Pulse Pressure: 42 mm Hg (11/30/23 14:27:00) Oxygen Saturation: 100 % (11/30/23 14:27:00) Mode of Delivery (Oxygen): Room air (11/30/23 14:27:00) Early Warning Score: 0 (11/30/23 14:28:10) ? . Physical Exam Awake, alert, oriented Lungs: Clear to auscultation bilateral, no wheezing no rales Heart: Regular rate and rhythm, no murmur, no rub or gallop Abdomen: Soft, nontender, nondistended; Bowel sounds present Extremity: LLE:?? Aquacel dressings in place, minimal staining noted. Thigh with moderate soft edema, non painful to palpation?? Neurological: No focal deficit Psychiatric: Normal mood and affect Surgical Procedures Intramedullary Nailing Femur Intermedull 11/26/2023 17:10 Pending Results Add On Lab Order ordered on 11/22/2023 Add On Lab Order ordered on 11/25/2023 BUN ordered on 11/28/2023 BUN ordered on 11/29/2023 CBC ordered on 11/29/2023 Calcium Level ordered on 11/28/2023 Calcium Level ordered on 11/29/2023 Creatinine ordered on 11/28/2023 Creatinine ordered on 11/29/2023 Electrolytes ordered on 11/28/2023 Electrolytes ordered on 11/29/2023 Glucose Level ordered on 11/28/2023 Glucose Level ordered on 11/29/2023 Hold Lavender Tube (BB) ordered on 11/22/2023 Follow-Up Appointments Added Follow Up ?Time Frame ?Comments Greg FRANKLIN, Madhuri Kearns?4 to 5 weeks Home Health Face to Face ^HomeHealth[facility]F Results Discharge Labs BLOOD BANK Blood Type A Positive ()?? 11/26/2023 16:14 Antibody Screen Negative ()?? 11/26/2023 16:14 ?? BLOOD COUNT & DIFF WBC 10.7 k/mm3 ()?? 11/27/2023 21:45 RBC 2.63 m/mm3 (Low)?? 11/27/2023 21:45 Hgb 7.4 Gm/dL (Low)?? 11/30/2023 01:09 Hct 24.5 % (Low)?? 11/30/2023 01:09 MCV 92.4 femtoliters ()?? 11/27/2023 21:45 MCH 28.5 pg ()?? 11/27/2023 21:45 MCHC 30.9 g/dL (Low)?? 11/27/2023 21:45 Platelet Count 236 k/mm3 ()?? 11/27/2023 21:45 RDW-SD 50.4 femtoliters (High)?? 11/27/2023 21:45 MPV 11.4 femtoliters ()?? 11/27/2023 21:45 Nucleated RBC (Automated) 0.7 #/100 WBC'S ()?? 11/27/2023 21:45 Abs. NRBC 0.1 k/mm3 ()?? 11/27/2023 21:45 Abs. Neut 10.4 k/mm3 (High)?? 11/23/2023 06:38 Abs. Lymph 1.2 k/mm3 ()?? 11/23/2023 06:38 Abs. Shackelford 0.9 k/mm3 ()?? 11/23/2023 06:38 Abs. Eo 0.2 k/mm3 ()?? 11/23/2023 06:38 Abs. Baso 0.0 k/mm3 ()?? 11/23/2023 06:38 Neut % 81.5 % (High)?? 11/23/2023 06:38 Lymph % 9.4 % (Low)?? 11/23/2023 06:38 Shackelford % 6.9 % ()?? 11/23/2023 06:38 Eos % 1.5 % ()?? 11/23/2023 06:38 Baso % 0.2 % ()?? 11/23/2023 06:38 Imm Gran 0.5 % ()?? 11/23/2023 06:38 Abs. Imm Gran 0.1 k/mm3 ()?? 11/23/2023 06:38 ?? BLOOD GAS Specimen Type - Blood Gas VENOUS ()?? 11/22/2023 05:34 pH, Venous 7.31 (Low)?? 11/22/2023 23:10 pCO2, Venous 49 mm Hg ()?? 11/22/2023 05:34 pO2, Venous 33 mm Hg (Low)?? 11/22/2023 05:34 Bicarbonate, Estimated(Venous) 23 mmol/L ()?? 11/22/2023 05:34 ? CARDIAC CK, Total 300 units/L (High)?? 11/22/2023 03:18 Nt-Probnp 423 pg/mL (High)?? 11/22/2023 03:18 High Sensitivity Troponin (HSTnT) 28 ng/L (High)?? 11/22/2023 05:34 ? CHEM GENERAL Sodium 138 mmol/L ()?? 11/30/2023 01:09 Potassium 3.9 mmol/L ()?? 11/30/2023 01:09 Chloride 106 mmol/L ()?? 11/30/2023 01:09 Bicarbonate Level 19 mmol/L (Low)?? 11/30/2023 01:09 Anion Gap 13 ()?? 11/30/2023 01:09 Glucose Level 135 mg/dL (High)?? 11/30/2023 01:09 Glucose, POC 189 mg/dL (High)?? 11/30/2023 10:45 Beta Hydroxybutyrate 1.00 mmol/L (High)?? 11/22/2023 03:18 BUN 34 mg/dL (High)?? 11/30/2023 01:09 Creatinine-Blood 2.04 mg/dL (High)?? 11/30/2023 01:09 Estimated GFR Creatinine 25 ML/MIN/1.73 M2 ()?? 11/30/2023 01:09 Osmolality 323 mOs/kg (High)?? 11/25/2023 08:11 Calcium 8.2 mg/dL (Low)?? 11/30/2023 01:09 Phosphorus 4.1 mg/dL ()?? 11/22/2023 03:18 Magnesium 2.3 mg/dL ()?? 11/25/2023 08:11 Protein, Total 6.3 Gm/dL ()?? 11/23/2023 06:38 Albumin 3.6 Gm/dL ()?? 11/23/2023 06:38 AG Ratio 1.3 ()?? 11/23/2023 06:38 Alkaline Phosphatase 253 units/L (High)?? 11/23/2023 06:38 Lipase 91 units/L (High)?? 11/22/2023 03:18 AST (SGOT) 39 units/L (High)?? 11/23/2023 06:38 ALT (SGPT) 27 units/L ()?? 11/23/2023 06:38 Bilirubin, Total 0.6 mg/dL ()?? 11/23/2023 06:38 ? ENDOCRINE/TUMOR MARKER TSH 10.10 uIU/mL (High)?? 11/22/2023 03:18 Free T4 1.37 ng/dL ()?? 11/22/2023 03:18 ?? HEME OTHER Hold Lavender Top SPECIMEN DISCARDED AFTER 24 HOURS. ()?? 11/27/2023 21:45 ? MISC. CHEMISTRY Hold Gel Top SPECIMEN DISCARDED AFTER 1 WEEK ()?? 11/27/2023 12:02 ? UA/URINALYSIS Hold Urine Testing Available 24 hours from Time of Collection ()?? 11/25/2023 10:30 ? URINE OTHER Sodium, Urine Random 79 mmol/L ()?? 11/25/2023 10:30 Osmolality, Urine Random 437 mOsm/kg ()?? 11/25/2023 10:30 ?? VIROLOGY COVID-19 by RT-PCR NEGATIVE ()?? 11/22/2023 03:08 ? Microbiology ?? COVID-19 (Novel Coronavirus), Rapid PCR?? Completed?? Source: Nasal Body Site: Nose Collected Dt/Tm: 11/22/2023 02:31 Last Updated Dt/Tm: 11/22/2023 04:02 ? 35 minutes spent on discharge Patient Care team information Care Team Personnel Name: Aster Pena RN Position: [facility] [facility]ENTER RN Member Role: Primary Care Nurse Name: Bella Alexander RN Position: [facility] RN Member Role: Primary Care Nurse Name: Dunia Phillip RN Position: [facility] ED RN W/OE and Tasks Member Role: Primary Care Nurse Name: Lisette Trejo RN Position: [facility] RN Member Role: Primary Care Nurse Name: Jessica Canseco RN Position: [facility] RN Member Role: Primary Care Nurse Name: Shauna Le RN Position: [facility] RN Member Role: Primary Care Nurse Name: Blayne Archer RN Position: [facility] RN Member Role: Primary Care Nurse Name: Erica Archer RN Position: [facility] RN Supv Member Role: Primary Care Nurse Name: Vickie Lyons Position: [facility] Outreach Member Role: Lifetime Consulting Physician Name: Alba Small RN Position: [facility] RN Member Role: Primary Care Nurse Name: Martine Carr RN Position: [facility] RN Member Role: Primary Care Nurse Name: Indira Monsalve RN Position: [facility] RN Member Role: Primary Care Nurse Name: Cordelia Bailey RN Position: [facility] RN Member Role: Primary Care Nurse Name: Frederick Encarnacion RN Position: [facility] RN Member Role: Primary Care Nurse Name: Celia Thomas NP Position: [facility] Associate Professional Member Role: Lifetime Consulting Provider Address: Address: [address] [place] [address] [address] [facility] [place] [address]- Name: Chucho Carroll MD Position: [facility] Renal MD Member Role: Lifetime Consulting Physician Address: Address: [address] [place] [address] [address] [facility] [place], [place] - Name: Loren Mcmanus RN Position: [facility] RN Member Role: Primary Care Nurse Name: Mp Zarco RN Position: [facility] RN Member Role: Primary Care Nurse Name: Blayne Hughes RN Position: [facility] RN Member Role: Primary Care Nurse Name: Meena Camacho RN Position: [facility] RN Member Role: Primary Care Nurse Name: Norma Art RN Position: [facility] RN Member Role: Primary Care Nurse Name: Eve Urban RN Position: [facility] RN Member Role: Primary Care Nurse Name: Mecca Boyd RN Position: [facility] RN Member Role: Primary Care Nurse Name: Juan Carlos Vasques RN Position: [facility] RN Member Role: Primary Care Nurse Name: Leela Henning RN Position: [facility] RN Member Role: Primary Care Nurse Name: Katie Evans NP Position: [facility] PCO Associate Professional Member Role: Primary Care Nurse Address: Address: [address] [place] [address]- [place] Name: Rsoendo Suarez RN Position: [facility] RN Member Role: Primary Care Nurse Name: Sierra Gray RN Position: [facility] RN Member Role: Primary Care Nurse Name: Leonor Mccormick RN Position: [facility] RN Member Role: Primary Care Nurse Name: Hortensia Garrison Position: [facility] Outreach Member Role: Lifetime Consulting Physician Name: Paige Morris RN Position: [facility] RN Member Role: Primary Care Nurse Name: Trini Starr RN Position: S RN Member Role: Primary Care Nurse Name: Marisa Bryant RN Position: S RN Member Role: Primary Care Nurse Name: Teresa Sethi MD Position: S Outreach Member Role: PCP Address: Address: [address] [place] [address] Name: Amanda Dunne RN Position: S RN Member Role: Primary Care Nurse Name: Marcie Rhodes RN Position: S RN Member Role: Primary Care Nurse Name: Daina Alexander RN Position: S RN Member Role: Primary Care Nurse Name: Susie Monson RN Position: [facility] RN Member Role: Primary Care Nurse Name: Shante Devi LPN Position: S RN Member Role: Primary Care Nurse Care Team Related Persons Name: PAIGE TALBERT Address: [place] [address] Name: CAMRON VELASQUEZ Address: [place] [address] Name: ANTIONE SETHI Address: home [address] [address]
--- OUTSIDE RECORDS SUMMARY | 2023-12-05 21:36 | XMS_ITS | Continuity of Care Document ---
Author Organization [facility] ter Address [address] [place] [address]- Care Team Providers Care Furnace Cooler Name Role Phone Heber FRANKLIN, Kathy Primary Care Physician Encounter [facility] Date(s): 05/06/23 - 05/07/[address] [address]- Encounter Diagnosis Weakness(Final) - 05/07/23 Discharge Disposition: A-D/C Home Attending Physician: Teo Mcdonald MD Admitting Physician: Teo Mcdonald MD Referring Physician: Not on Staff, Referring MD Allergies, Adverse Reactions, Alerts No Known Allergies Immunizations Given and Recorded Vaccine Date Status Refusal Reason SARS-CoV-2 mRNA ([id number]) vax 07/09/21 Recorded SARS-CoV-2 (COVID-19) Ad26 vaccine [...] 0 Refills, Maintenance, 10/05/19 15:29:00 EDT, Tablet, [facility]/pharmacy #[id number], 144.78, cm, 10/05/19 14:50:00 EDT, Height, 89.5, kg, 10/01/19 20:04:00 EDT,Dry Weight Start Date: 10/05/19 Stop Date: 11/04/19 Status: Ordered fluticasone 50 mcg/inh nasal spray 1 sprays, Nares, Both, 2 times a day, # 16 Gm, 0 Refills, Maintenance, 12/01/20 4:52:00 EDT, [place],Partial fill upon patient request if the prescription is for a schedule II opioid drug. Start Date: 12/01/20 Status: Ordered insulin glargine 100 units/mL subcutaneous solution = 15 units, Subcutaneous Injection, Daily in AM, # 3.6 mL, 0 Refills, Maintenance, 03/08/22 13:57:00 EDT, Injection, [facility], Partial fill upon [...] Refills, Maintenance, 08/03/22 10:00:00 EDT, [facility], 144.8, cm, 04/14/22 12:40:00 EST, Height, 67, kg, 03/04/22 21:45:00 EDT, Dry Weight Start Date: 08/03/22 Status: Ordered MiraLax oral powder for reconstitution = 17 Gm, By Mouth, 2 times a day before breakfast and dinne, dissolve in water before taking, # 527Gm, 11 Refills, Maintenance, 05/28/21 13:46:00 EST, REC Powder, [facility]/pharmacy #[id number], Partial fill upon patient request if the prescription is for a sche... Start Date: 05/28/21 Status: Ordered Norvasc 2.5 mg oral tablet 2.5 mg, 1, tablet, By Mouth, Daily, Please conctact office for apt. for further refills [phone], #30 tablet, Refills 1, Tot. Refills 1, [...] 10/20/22 9:58:00 EDT, Route to Pharmacy Electronically, [facility]/pharmacy #[id number], Partial fill upon patient request if the [...] Exam Date Time Procedure Performing Provider Status 05/06/23 9:16 PM Wrist Comp Min 3 Views Left Yael Josue hector; Auth (Verified) Notes: (Wrist Comp Min 3 Views Left) Reason For Exam: with Pain;Trauma RESULT: Wrist Comp Min 3 Views Left Shoulder Min 2 Views Left (3 views), Elbow Min 3 Views Left (3 views), Wrist Comp Min 3 Views Left (3 views) Hx of Present Illness: lives with grandson at home, sent for CP. 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 Reports intermittent regular chest pain, none at this time; Reason: Trauma; with Pain; Clinical Question(s): Fracture COMPARISON: Left shoulder x-ray dated 12/02/2021. FINDINGS: No acute fracture or dislocation. Well-corticated small chronic fracture of the ulnar styloid. No significant arthritic change. Normal alignment of the carpal bones. No calcification of the rotator cuff. Unchanged subcutaneous calcifications in the left shoulder. There is no elbow joint effusion. There are atherosclerotic calcifications in the radial and ulnar arteries. IMPRESSION: No acute fracture or dislocation. WSN: [id number] Ordering Physician: Adolfo Escobar Dictated By: Marko Angeles MD Dictated Date/Time: 05/06/23 9:30 pm Reviewed By: Marko Angeles MD Signed By: Marko Angeles MD Signed Date/Time: 05/06/23 9:30 pm Transcribed By: KEYSHA Transcribed Date/Time: 05/06/23 9:26 pm * Exam Date Time Procedure Performing Provider Status 05/06/23 9:16 PM Elbow Min 3 Views Left Dre Josue; Auth (Verified) Notes: (Elbow Min 3 Views Left) Reason For Exam: with Pain;Trauma RESULT: Elbow Min 3 Views Left Shoulder Min 2 Views Left (3 views), Elbow Min 3 Views Left (3 views), Wrist Comp Min 3 Views Left (3 views) Hx of Present Illness: lives with grandson at home, sent for CP. 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 Reports intermittent regular chest pain, none at this time; Reason: Trauma; with Pain; Clinical Question(s): Fracture COMPARISON: Left shoulder x-ray dated 12/02/2021. FINDINGS: No acute fracture or dislocation. Well-corticated small chronic fracture of the ulnar styloid. No significant arthritic change. Normal alignment of the carpal bones. No calcification of the rotator cuff. Unchanged subcutaneous calcifications in the left shoulder. There is no elbow joint effusion. There are atherosclerotic calcifications in the radial and ulnar arteries. IMPRESSION: No acute fracture or dislocation. WSN: [id number] Ordering Physician: Adolfo Escobar Dictated By: Marko Angeles MD Dictated Date/Time: 05/06/23 9:30 pm Reviewed By: Marko Angeles MD Signed By: Marko Angeles MD Signed Date/Time: 05/06/23 9:30 pm Transcribed By: KEYSHA Transcribed Date/Time: 05/06/23 9:26 pm * Exam Date Time Procedure Performing Provider Status 05/06/23 8:38 PM Shoulder Min 2 Views Left Joselo , Mis raza; Auth (Verified) Notes: (Shoulder Min 2 Views Left) Reason For Exam: with Pain;Trauma RESULT: Shoulder Min 2 Views Left Shoulder Min 2 Views Left (3 views), Elbow Min 3 Views Left (3 views), Wrist Comp Min 3 Views Left (3 views) Hx of Present Illness: lives with grandson at home, sent for CP. 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 Reports intermittent regular chest pain, none at this time; Reason: Trauma; with Pain; Clinical Question(s): Fracture COMPARISON: Left shoulder x-ray dated 12/02/2021. FINDINGS: No acute fracture or dislocation. Well-corticated small chronic fracture of the ulnar styloid. No significant arthritic change. Normal alignment of the carpal bones. No calcification of the rotator cuff. Unchanged subcutaneous calcifications in the left shoulder. There is no elbow joint effusion. There are atherosclerotic calcifications in the radial and ulnar arteries. IMPRESSION: No acute fracture or dislocation. WSN: [id number] Ordering Physician: Adolfo Escobar Dictated By: Marko Angeles MD Dictated Date/Time: 05/06/23 9:30 pm Reviewed By: Marko Angeles MD Signed By: Marko Angeles MD Signed Date/Time: 05/06/23 9:30 pm Transcribed By: KEYSHA Transcribed Date/Time: 05/06/23 9:26 pm * Exam Date Time Procedure Performing Provider Status 05/06/23 8:47 AM Chest 2 Views Frontal and Lat Avinash , Micheline; Auth (Verified) Notes: (Chest 2 Views Frontal and Lat) Reason For Exam: chest pain;Other: RESULT: Chest 2 Views Frontal and Lat Examination: Chest performed on 05/06/2023. History: Chest pain. Findings: Frontal and lateral views of the chest are compared to a prior study dated 07/23/[address] performedon 07/23/2022. The cardiac and mediastinal silhouettes are within normal limits. Low lung volumes are present. There is crowding of vascular markings. No focal infiltrates are present. A stable T12 compression fracture is noted. IMPRESSION: Low lung volumes. There is no acute cardiopulmonary disease. WSN: [id number] Ordering Physician: Robert Vargas Dictated By: Jessica Gomez MD Dictated Date/Time: 05/06/23 8:52 am Reviewed By: Jessica Gomez MD Signed By: Jessica Gomez MD Signed Date/Time: 05/06/23 8:52 am Transcribed By: KEYSHA Transcribed Date/Time: 05/06/23 8:51 am Vital Signs Most recent to oldest [Reference Range]: 1 2 3 4 Oxygen Saturation [94-100 %] 99 % (05/07/23 2:44 PM) 99 % (05/07/23 11:57 AM) 99 % (05/07/23 9:02 AM) Pulse Rate [55-90 bpm] 58 bpm (05/07/23 2:44 PM) 60 bpm (05/07/23 11:57 AM) 68 bpm (05/07/23 9:02 AM) Blood Pressure [90-138/55-84 mm Hg] 134/65mm Hg (05/07/23 2:44 PM) 152/62mm Hg *H* (05/07/23 11:57 AM) 178/67mm Hg *H* (05/07/23 9:02 AM) Respiratory Rate [16-30 br/min] 18 br/min (05/07/23 2:44 PM) 20 br/min (05/07/23 11:57 AM) 21 br/min (05/07/23 9:02 AM) Temperature [96.8-100.4 DegF] 98.1 DegF (05/07/23 9:02 AM) 98.3 DegF (05/06/23 2:41 PM) 98.7 DegF (05/06/23 8:17 AM) Liters per Minute 0 L/min (05/07/23 11:57 AM) 0 L/min (05/07/23 9:02 AM) 2 L/min (05/06/23 8:17 AM) 2 L/min (05/06/23 8:17 AM) Mode of Delivery (Oxygen) Room air (05/07/23 2:44 PM) Room air (05/07/23 11:57 AM) Room air (05/07/23 9:02 AM) Blood pressure sites Arm, right (05/07/23 2:44 PM) Arm, right (05/07/23 11:57 AM) Arm, right (05/07/23 9:02 AM) Temperature Route Oral (05/07/23 9:02 AM) Oral (05/06/23 2:41 PM) Oral (05/06/23 8:17 AM) Social History Social History Type Response Smoking Status Never (less than 100 in lifetime) entered on: 06/27/21 Sex Female EKG study * Event Display: EKG Authored Date: * Event Display: ECG 12-Lead Authored Date: Please click on pdf link to open report * Event Display: ECG 12-Lead Authored Date: Ventricular Rate: 68 BPM Atrial Rate: 68 BPM P-R Interval: 140 ms QRS Duration: 86 ms Q-T Interval: 418 ms QTC Calculation(Bazett): 444 ms P [place]: 24 degrees R [place]: 9 degrees T [place]: 68 degrees Normal sinus rhythm Normal ECG When compared with ECG of 23-JUL-2022 18:39, No significant change was found Confirmed by NATHALIA LUIS MD ([id number]) on 05/06/2023 9:06:00 AM [place]: NATHALIA LUIS MD Note * Omar ABEL, Sonal Zambrano: PERFORM, SIGN, VERIFY Event Display: Case Management Discharge Plan Authored Date: [id number] Patient: GLADIS GILBERT Age: 72 years Sex: Female : 1950 Associated Diagnoses: None Author: Omar ABEL, Sonal Zambrano Discharge Plan Case Management Discharge Plan : Case Management Discharge Plan Data 05/07/2023 14:14 EST Discharge Level of Care at Discharge [facility] facility Discharge Nursing Homes/Rehab Facilities [facility] [place] Discharge Transportation Arranged [facility] [phone] Discharge Arranged Transport Date/Time 05/07/2023 16:00 Mode of Transportation Arranged Ambulance Name of Agency #1 [facility] [place] Service Categories #1 Occupational Therapy, Physical Therapy, Retirement Service Comments #1 You are being discharged to short term rehab at [facility] in [place] Name of Person Notified of Transfer you/your daughter antione * Deedee FRANKLIN, Gemini Garcia: PERFORM Event Display: Patient Education Leaflets Authored Date: [id number] Weakness with Uncertain Cause ?? [id number] Debilidad con causa desconocida Seg??n shannon exploraci??n de hoy, no se sabe con exactitud por qu?? siente debilidad. De todos modos, susie debilidad no parece indicar que haya cristobal enfermedad grave en giovanni momento. Controle gissel s??ntomas y busque atenci??n m??dica seg??n se indica a continuaci??n. Cuidados en el hogar ??? Descanse en shannon hogar hoy. No se exija demasiado. ??? [place] los medicamentoscomo le indicaron. ??? En los [...] conocimiento. ?? Last Reviewed Date: 2019 ?? [id number] [employer]. Todos los derechos reservados. Esta informaci??n no pretende sustituir la atenci??n m??dica profesional. S??lo shannon m??dico puede diagnosticar y tratar un problema de domenica. ?? Patient Care team information Care Team Personnel Name: Aster Pena RN Position: [facility] RN Member Role: Primary Care Nurse Name: Dunia Phillip RN Position: [facility] ED RN W/OE and Tasks Member Role: Primary Care Nurse Name: Lisette Trejo RN Position: [facility] RN Member Role: Primary Care Nurse Name: Jessica Canseco RN Position: [facility] RN Member Role: Primary Care Nurse Name: Shauna Le RN Position: [facility] SN RN Member Role: Primary Care Nurse Name: Erica Archer RN Position: [facility] RN Supv Member Role: Primary Care Nurse Name: Vickie Lyons Position: [facility] Outreach Member Role: Lifetime Consulting Physician Name: Martine Carr RN Position: [facility] RN Member Role: Primary Care Nurse Name: Indira Monsalve RN Position: [facility] RN Member Role: Primary Care Nurse Name: Loren Mcmanus RN Position: [facility] RN Member Role: Primary Care Nurse Name: Marisela Lobo LPN Position: [facility] RN Member Role: Primary Care Nurse Name: Mp Zarco RN Position: [facility] RN Member Role: Primary Care Nurse Name: Kathy Buck MD Position: [facility] Outreach Member Role: PCP Address: Address: [address] [place] [address]- Name: Blayne Hughes RN Position: [facility] RN Member Role: Primary Care Nurse Name: Meena Camacho RN Position: [facility] RN Member Role: Primary Care Nurse Name: Norma Art RN Position: [facility] RN Member Role: Primary Care Nurse Name: Mecca Boyd RN Position: [facility] RN Member Role: Primary Care Nurse Name: Katie Evans NP Position: [facility] PCO Associate Professional Member Role: Primary Care Nurse Address: [facility] [address] [facility] [place] [address]- Name: Leonor Mccormick RN Position: [facility] RN Member Role: Primary Care Nurse Name: Hortensia Garrison Position: [facility] Outreach Member Role: Lifetime Consulting Physician Name: Paige Morris RN Position: [facility] RN Member Role: Primary Care Nurse Name: Trini Starr RN Position: [facility] RN Member Role: Primary Care Nurse Name: Susie Monson RN Position: [facility] RN Member Role: Primary Care Nurse Name: *[facility], ED Attending Position: [facility] ED Attendings Patient Name: Tamara FRANKLIN, Teo Conley Position: [facility] ED Medicine MD Member Role: Admitting Physician Address: Address: [address] [place] [address] Name: Anju Holt Position: [facility] ED [facility] Member Role: Patient Care Provider Name: Dayanna Torres Position: [facility] ED [facility] Member Role: Title Coordinator Name: Latisha Long RN Position: [facility] ED RN W/OE and Tasks Member Role: Research Care Team Related Persons Name: PAIGE TALBERT Address: [place] [address] Name: CAMRON VELASQUEZ Address: [place] [address] Name: ANTIONE SETHI Address: home [address] [place] [id number]
--- OUTSIDE RECORDS SUMMARY | 2023-12-05 21:37 | XMS_ITS | Continuity of Care Document ---
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 Level (11/07/2023) ???Folic Acid Level - 8.9 ng/mL Glucose Level (11/09/2023) ???Glucose Level - 228 mg/dL GLUCOSE POC (11/09/2023) ???Glucose, POC - 137 mg/dL LFT's (11/09/2023) ???Protein, Total - 5.9 Gm/dL???Albumin - 3.6 Gm/dL???Alkaline Phosphatase - 217 units/L???AST (SGOT) - 14 units/L? ?ALT (SGPT) - 14 units/L? ?Bilirubin, Total - <0.2 mg/dL? ?Bilirubin, Direct - <0.2 mg/dL???Bilirubin, Indirect - Total bilirubin is less than the measureable limit. Therefore, indirect Magnesium Level (11/08/2023) ???Magnesium - 2.1 mg/dL pH Venous (11/06/2023) ???pH, Venous - 7.29 Urinalysis w/hold for Urine Culture (11/06/2023) ???Appear/Color, Urine - LIGHT YELLOW???Specific [place], Urine - 1.013???pH, Urine - 6.0???Albumin, Urine - 3+???Glucose, Urine - 4+???Ketones, Urine - NEGATIVE???Bilirubin, Urine - NEGATIVE???Hemoglobin, Urine - NEGATIVE???Nitrite, Urine - NEGATIVE???Leukocyte, Urine - NEGATIVE???Urobilinogen - NORMAL? ?WBC's, Urine - NONE SEEN? ?RBC's, Urine - NONE SEEN? ?Squamous Epith - <1 /HPF? ?Hyaline Cast - 3 LPF???Hold Urine Culture - Testing available 48 hours [...] Educational Leaflet Providered with your Discharge Instructions. [employer] Ignite Patient Education - Sitagliptin Oral Tablet?? Valuables and Belongings I fully understand and agree that [facility] accepts no responsibility for all my [...] patient Date for Pt to Sign Valuables/Belongings: 11/07/23 01:54:00 ?? Other Discharge Information ? Case Management Discharge Plan?? Discharge Plan?? Discharge Agency Information?? Discharge Level of Care at Discharge: Homehealth/VNA [facility] Care: [facility] [phone] Service Categories #1: [facility] ?? Service Comments #1: [facility] will resume services at time of discharge. ?? Pulmonary Rehab Status?? Pulmonary Rehab Discharge [...] are strongly encouraged to quit. Please call [facility] Link at [phone] or [phone] ([phone]) or log in to [email or web address] for referrals to smoking cessation programs. ?? 065 Suicide & Crisis Lifeline is available 24/11 if you or someone you know needs to find a reason to keep living. By calling 654 you'll be connected to a skilled, trained counselor at a crisis center in your area. INPATIENT DISCHARGE INSTRUCTIONS SIGNATURE GLADIS MELO Location:[facility] Registration Date and Time:11/06/2023 17:43 EDT Primary Care Physician: Kathy Buck MD, Attending Physician: Whitney Miramontes MD, GLADIS PRICE, have received the above patient education materials/instructions and have verbalized understanding. If ambulance or transport services are being used I further acknowledge being givena choice of service. ?? If you need to contact me, please call me at this number: . Patient/Cpa Tax Name: Patient/Cpa Tax Signature: Relationship to Patient: Witness Name/Signature: Date: * Whitney Miramontes MD: PERFORM Event Display: Patient Education Leaflets Authored Date: [id number] Sitagliptin Oral Tablet ?? [id number] Sitagliptin Oral Tablet Brands: Januvia Usos Para la diabetes. ?? Instrucciones Marilee medicamento se puede vladimir con o sin alimentos. Marilee medicamento funciona mejor si se usa a aproximadamente la misma hora todos los d??as. Mantenga el medicamento a temperatura ambiente, alejado cleo y el calor. Si olvida vladimir kenyatta dosis a tiempo, t??josef mandel pronto lo recuerde. Si es olga la hora de la dosis siguiente, no tome la dosis olvidada. Vuelva al horario normal. No tome dos dosis al mismo tiempo. Informe a vila m??dico y a vila farmac??utico acerca de todos los medicamentos que usa. Bardolph incluye medicamentos con y sin receta m??dica, vitaminas y medicamentos a base de hierbas. Marilee medicamento generalmente no produce niveles bajos de az??car en dipak si usted consume comidas de modo regular. Entre los s??ntomas de bajo nivel de az??car en la dipak se incluyen: n??useas, temblores, piel fr??a, sudoraci??n, latido acelerado, hambre e irritabilidad. Es muy importante que siga las instrucciones de vila m??dico para todos los an??lisis de dipak. ?? Precauciones Informe a vila m??dico y a vila farmac??utico si alguna vez raza tenido kenyatta reacci??n al??rgica a un medicamento. En algunos pacientes con corazones d??svitlana los s??ntomas podr??an empeorar. Si tiene problemas para respirar, aumenta de peso, o se le hinchan las piernas o los tobillos, informe a vila m??dico de inmediato. No use el medicamento m??s veces de lo indicado. Marilee medicamento puede afectar vila capacidad de mantenerse alerta o de reaccionar con rapidez. No maneje ni opere m??quinas hasta que sepa qu?? efecto le provocar?? marilee medicamento. Si geo alcohol de forma regular, hable con vila m??dico. Llame al m??dico si observa alg??n cambio en la cantidad de orina o si ??sta es oscura. Se desconoce si marilee medicamento pasa a la leche materna. Consulte a vila m??dico antes de amamantar. Reina el embarazo, marilee medicamento solo debe usarse cuando sea claramente necesario. Hable con vila m??dico acerca de los riesgos y beneficios. No empiece ni deje de vladimir otros medicamentos sin hablar terry con el m??dico o farmac??utico. No comparta marilee medicamento con otras personas a quienes no se les recet??. Algunos pacientes presentan efectos secundarios graves con marilee medicamento. P??vincent a vila farmac??utico que le muestre la informaci??n de la Administraci??n de Alimentos y Medicamentos (FDA) y que laanalice con usted. ?? Efectos Secundarios Llame al m??dico u obtenga atenci??n m??dica de inmediato si nota cualquiera de estos efectos secundarios m??s graves: ??? hinchaz??n de las piernas, pies y debbie ??? baja az??car en la dipak ??? n??usea ??? falta de aliento ??? indigesti??n estomacal o dolor abdominal ??? aumento de peso repentino o inexplicado Algunas personas podr??an tener reacciones al??rgicas a marilee medicamento. Entre los s??ntomas pueden incluirse: dificultad para respirar, erupci??n en la piel, comez??n, hinchaz??n o mareos intensos.Si nota algunos de estos s??ntomas, busque asistencia m??dica r??pidamente. ?? Extra Hable con vila m??dico, enfermero o farmac??utico si tiene alguna pregunta acerca de marilee medicamento. ?? [email or web address] NOTA IMPORTANTE: En marilee documento hay kenyatta explicaci??n breve sobre c??mo usar el medicamento, perono incluye todo lo que hay que saber acerca del medicamento. Vila m??dico o vila farmac??utico podr??a suministrarle otros documentos acerca de vila medicamento. Comun??quese con ellos si tiene alguna pregunta. Siga siempre gissel consejos. Kenyatta descripci??n m??s completa de marilee medicamento est?? disponibleen ingl??s. Escanee marilee c??digo en vila tel??fono inteligente o en vila tableta, o use la direcci??n web que aparece a continuaci??n. Tambi??n puede pedirle a vila farmac??utico kenyatta copia impresa. Si tiene alguna pregunta, h??gasela a vila farmac??utico. La exhibici??n y el uso de esta informaci??n sobre f??rmacos est?? sujeta a los T??rminos de Uso. Copyright(c) 2023 [employer]. ?? 7494-6134 [employer]. All rights reserved. This information is not intended as a substitute for professional medical care. Always follow your healthcare professional's instructions. ?? Patient Care team information Care Team Personnel Name: Aster Pena RN Position: [facility] RN Member Role: Primary Care Nurse Name: Bella Alexander RN Position: [facility] RN Member Role: Primary Care Nurse Name: Dunia Phillip RN Position: [facility] SALVADOR RN W/OE and Tasks Member Role: Primary Care Nurse Name: Lisette Trejo RN Position: [facility] RN Member Role: Primary Care Nurse Name: Jessica Canseco RN Position: [facility] RN Member Role: Primary Care Nurse Name: Shauna Le RN Position: [facility] SN RN Member Role: Primary Care Nurse Name: Erica Archer RN Position: [facility] RN Supv Member Role: Primary Care Nurse Name: Vickie Lyons Position: [facility] Outreach Member Role: Lifetime Consulting Physician Name: Alba Small RN Position: [facility] RN Member Role: Primary Care Nurse Name: Martine Carr RN Position: [facility] RN Member Role: Primary Care Nurse Name: Indira Monsalve RN Position: S RN Member Role: Primary Care Nurse Name: Frederick Encarnacion RN Position: [facility] RN Member Role: Primary Care Nurse Name: Chucho Carroll MD Position: [facility] Renal MD Member Role: Lifetime Consulting Physician Address: Address: [address] [place], [place] [address] [place] [address]- [place] Name: Loren Mcmanus RN Position: [facility] RN Member Role: Primary Care Nurse Name: Mp Zarco RN Position: [facility] RN Member Role: Primary Care Nurse Name: Kathy Buck MD Position: [facility] Outreach Member Role: PCP Address: Address: [address] [place] [address]- [place] Name: Blayne Hughes RN Position: [facility] RN Member Role: Primary Care Nurse Name: Meena Camacho RN Position: [facility] RN Member Role: Primary Care Nurse Name: Norma Art RN Position: [facility] RN Member Role: Primary Care Nurse Name: Mecca Boyd RN Position: [facility] RN Member Role: Primary Care Nurse Name: Katie Evans NP Position: [facility] PCO Associate Professional Member Role: Primary Care Nurse Address: Address: [address] [place] [address]- [place] Name: Rosendo Suarez RN Position: [facility] RN Member Role: Primary Care Nurse Name: Sierra Gray RN Position: [facility] RN Member Role: Primary Care Nurse Name: Leonor Mccormick RN Position: [facility] RN Member Role: Primary Care Nurse Name: Hortensia Garrison Position: [facility] Outreach Member Role: Lifetime Consulting Physician Name: Paige Morris RN Position: [facility] RN Member Role: Primary Care Nurse Name: Trini Starr RN Position: [facility] RN Member Role: Primary Care [...] Related Persons Name: PAIGE TALBERT Address: [place] [address] Name: CAMRON VELASQUEZ Address: [place] [address] Name: RITO SETHI Address: home [address] [place] [id number]
[2023-12-05 22:00] VITALS: BP 112/45; PULSE 73; RESP 17; TEMP 36.8; O2SAT 96
[2023-12-06] VITALS (13 sets, daily range): BP systolic 121–194; BP diastolic 43–84; PULSE 66–78; RESP 12–22; TEMP 36.1–37.1; O2SAT 94–99; BMI 35.9
--- NOTE | 2023-12-06 00:12 | ED_ITS ---
HPI - General Adult General Chief complaint: Abdominal Pain Stated complaint: abd pain Time Seen by Provider: 12/05/23 23:10 Source: patient and EMS Mode of arrival: EMS Limitations: other History of Present Illness ED Provider: Dr. Katja Morris HPI narrative: Patient comes to the emergency room from [facility]. Patient states that she has not been able to move her bowels for several days and her abdomen feels very uncomfortable. According to the staff at [facility], the patient has been refusing to work with physical therapy, states that she has too much hip pain. However, the patient does not remember that she had hip pain. Although she has sergio and the incisions are healing well. Patient is deaf also noted that the patient has been having black tarry stool, patient has had history of GI bleeds. Patient does not seem to be on any blood thinners. Related Data Home Medications ?Medication ?Instructions ?Recorded ?Confirmed aspirin 81 mg tablet,delayed 81 mg PO DAILY 02/27/20 06/10/23 release (Adult Aspirin Regimen) cholecalciferol (vitamin D3) 50 2,000 unit PO DAILY 02/27/20 06/10/23 mcg (2,000 unit) capsule metoprolol tartrate 25 mg tablet 12.5 mg PO DAILY 02/27/20 06/10/23 cetirizine 10 mg capsule (All Day 10 mg PO DAILY PRN Allergic 11/16/20 06/10/23 Allergy (cetirizine)) Symptoms linaclotide 145 mcg capsule 145 mcg PO DAILY PRN GI UPSET 12/29/22 06/10/23 (Linzess) pantoprazole 40 mg tablet,delayed 40 mg PO DAILY 12/29/22 06/10/23 release trazodone 100 mg tablet 100 mg PO BEDTIME 12/29/22 06/10/23 acetaminophen 500 mg tablet 500 mg PO Q6H PRN mild pain 03/20/23 06/10/23 multivitamin with folic acid 400 1 tab PO QAM 03/20/23 06/10/23 mcg tablet (Daily-Katie (with folic acid)) fluticasone propionate 50 1 spray intranasal BID 06/10/23 06/10/23 mcg/actuation nasal spray,suspension insulin glargine 100 unit/mL 25 unit subcut DAILY 06/10/23 06/10/23 subcutaneous solution (Lantus U-100 Insulin) insulin lispro 100 unit/mL 0 sliding scale dose subcut QIDACHS 06/10/23 06/10/23 subcutaneous solution (Humalog U-100 Insulin) Previous Rx's ?Medication ?Instructions ?Recorded flash glucose scanning reader #1 ea 11/16/20 (FreeStyle Fatmata 2 Tamiment) blood sugar diagnostic #150 ea 04/30/21 flash glucose sensor (FreeStyle #2 ea 12/13/21 Fatmata 2 Sensor kit) ursodiol 500 mg tablet 500 mg PO BID 90 days #180 tabs 01/23/23 amlodipine 10 mg tablet 10 mg PO DAILY #30 tabs 03/23/23 ascorbate calcium (vitamin C) 500 500 mg PO DAILY #30 tabs 06/12/23 mg tablet ferrous sulfate 325 mg (65 mg 325 mg PO DAILY #30 tabs 06/12/23 iron) tablet (Feosol) sucralfate 1 gram tablet 1 g PO BIDAC #60 tabs 06/12/23 Allergies Allergy/AdvReac Type Severity Reaction Status Date / Time No Known Allergies Allergy Verified 12/05/23 21:21 [No Known Allergies*] Review of Systems 2 Review of Systems: Constitutional : No Weight loss, No Fever, No Chills, No Night Sweats, No Fatigue, No Malaise ENT/Mouth : No Hearing loss, No Ear Pain, No Nasal Congestion, No Sinus Pain, No Hoarseness, No sore throat, No Rhinorrhea, No Swallowing Difficulty Eyes: No Eye Pain, No Swelling, No Redness, No Foreign Body, No Discharge, No Vision Changes Cardiovascular : No Chest Pain, No SOB, No Dyspnea on Exertion, No Orthopnea, No Edema, No Palpitations Respiratory : No Cough, No Sputum, No Wheezing, No Smoke Exposure, No Dyspnea Gastrointestinal : No Nausea, No Vomiting, No Diarrhea, complaining of Constipation, No abdominal Pain, complaining of black tarry stools Genitourinary : no irregular bleeding, No Dysuria, No Urinary Frequency, No Hematuria, No Urinary Incontinence, No Urgency, No Flank Pain, No Urinary Flow Changes, No Hesitancy Musculoskeletal : Complaining of left-sided hip pain, No Myalgias, No Joint Swelling Skin : No Skin Lesions, No rash Neuro : No Weakness, No Numbness, No Paresthesias, No Loss of Consciousness, No Dizziness, No Headache Psych : No Anxiety/Panic, No Depression, No SI/HI/AH/VH, No Social Issues, Heme/Lymph: No Bruising, No Bleeding,No Lymphadenopathy Endocrine : No Polyuria, No Polydipsia, No Temperature Intolerance [facility] Past Medical History Medical History Anemia Uncontrolled type 2 diabetes mellitus with hypoglycemia Chronic constipation Iron deficiency anemia Autoimmune cholangitis CHF (congestive heart failure) Renal failure (ARF), acute on chronic Autoimmune hepatitis CVA (cerebral vascular accident) Normocytic anemia CKD (chronic kidney disease) Fecal occult blood test positive Anemia Pancreatic cyst GERD (gastroesophageal reflux disease) Pancreatitis Depression Hypertriglyceridemia Vitamin D deficiency Constipated Type 2 diabetes mellitus with hyperglycemia Type 2 diabetes mellitus with chronic kidney disease Essential hypertension Hyperlipidemia LDL goal <100 Obesity (BMI 30-39.9) Diabetes mellitus with hyperglycemia Surgical History (Updated 07/15/23 @ 10:41 by Jennifer Quinteros) History of esophagogastroduodenoscopy (EGD) Hx of heart bypass surgery History of appendectomy Hx of colonoscopy Hx of cholecystectomy Family History Family History Father No problems noted. Mother Diabetes mellitus CVD (cardiovascular disease) Sister Cancer Son Diabetes mellitus Social History Social History Household Members: Caregiver Household Members Other:: daughter Housing: Apartment Housing Other:: [employer] services Unable to assess alcohol history related to: Unable to respond Alcohol intake: never Patient Tobacco Use Status: Never used Tobacco Smoked in Last 30 Days: No Use of substances other than those prescribed or required for medical reasons: No Advance Directives: Yes Advance Directives on File: Yes Advance Directives Date on File: 02/06/21 service: No Current occupational status: disabled Physical Exam ED Vital Signs: Vital Signs - 24 hr 12/05/23 21:20 12/05/23 22:00 Temperature 98.8 F 98.3 F Pulse Rate 69 73 Respiratory Rate 18 17 Blood Pressure 122/34 L 112/45 L Pulse Oximetry 97 96 Oxygen Delivery Method Room Air BMI result Body Mass Index 34.1 Const Other: Appearance: Alert. Alert and oriented x1, no acute distress Eyes: Pupils equal, round and reactive to light. ENT: Pharynx normal. Neck: Normal inspection. Neck supple. No lymph nodes noted. No crepitus CVS: Normal heart rate and rhythm. Pulses normal. Normal S1 and S2 Respiratory: No respiratory distress. Breath sounds normal. No Wheezing. No rales Abdomen: Soft and nontender. No rigidity. No distention. Digital rectal exam shows black stool Skin: Skin warm and dry. Normal skin color. Normal skin turgor. Extremities: Patient's left a several sergio in place, incisions look clean Neuro: Oriented X 3. No motor deficit. No sensory deficit. Moving all extremities. No slurred speech. CN 2 through 12 grossly intact Psych: calm, cooperative, normal affect Course Course Course Narrative: -patient confused, patient states that she never had surgery. Clearly patient had surgery, per patient's paperwork was on 11/26/2023 -all of patient's labs and imaging pending. -patient's vitals stable, blood pressure 112/45, heart rate 73, no fever Medications Administered Discontinued Medications Generic Name Dose Route Start Last Admin Trade Name Freq PRN Reason Stop Dose Admin Sodium Biphosphate/Sodium Phosphate 133 ml 12/06/23 00:07 12/06/23 01:10 Sodium Phosphate,Hardee-Dibasic 133 Ml Enema NM 12/06/23 00:08 Not Given ONCE ONE Medical Decision Making Medical Decision Making MDM Narrative: -same, on digital rectal exam the patient had black stool. Patient is not on any blood thinners. Patient has history of GI bleed. At this time patient does not have any significant abdominal pain, states that she feels constipated since she has not moved her bowels for 3 days. -CT scan of the abdomen and pelvis pending, we can take a look at the abdomen and pelvic structures. Dislocation or fracture is not suspected. -digital rectal exam is heme-positive. I discussed with the patient's nurse and the patient that we will not proceed with an enema. Patient will likely need admission. Patient has a GI bleed of unknown source and not on blood thinners. -all of patient's labs pending especially hematology to verify patient's blood levels. At 01:50, we were able to obtain blood. All of patient's labs pending. -patient remains hemodynamically stable -CT scan of the abdomen and pelvis still pending. -I reviewed patient's past -endoscopies and colonoscopies. 2020 colonoscopy colon polyps removed, internal hemorrhoids, diverticulosis -endoscopy June of 2023: AVMs of duodenum -I discussed the patient with Dr. Bragg, to be admitted after all the labs and CT scans resolved. -chemistry labs are not back yet. -in case patient is a blood transfusion, I discussed with the patient the risks versus benefits of a blood transfusion, patient states that she is agreeable to get blood. Consent signed -I gave sign out to my colleague Dr. Mcclelland Differential Diagnosis Differential Diagnoses: The differential diagnosis associated with the presentation includes (Patient, upper GI bleed, lower GI bleed, anemia) Admission/Observation Consideration of admission/observation: Escalation of care including admission/observation considered Consult Healthcare Provider Management of the patient was discussed with: Hospitalist Lab Data 12/06/23 01:42 12/06/23 01:42 Labs: Lab Results 12/06/23 12/06/23 Range/Units 00:09 01:42 WBC 9.9 (4.8-10.8) X10*3/uL RBC 2.56 L D (4.20-5.50) X10*6/uL Hgb 7.5 L D (12.0-16.0) g/dl Hct 23.9 L D (37.0-47.0) % MCV 93.4 (80.0-98.0) fL MCH 29.3 (27.0-33.0) pg MCHC 31.4 (31.0-35.0) g/dl RDW 17.4 H (11.0-16.0) % Plt Count 497 H D (160-400) X10*3/uL MPV 9.4 (9.4-12.3) fL Immature Gran % (Auto) 1.1 H (0.0-0.4) % Neut % (Auto) 72.7 (45-73) % Lymph % (Auto) 15.6 L (20-40) % Hardee % (Auto) 8.0 (2-11) % Eos % (Auto) 2.4 (0-4) % Baso % (Auto) 0.2 (0-2) % Lymph # (Auto) 1.5 (1.2-4.9) X10*3/uL Hardee # (Auto) 0.8 (0.1-1.2) X10*3/uL Eos # (Auto) 0.2 (0.0-0.4) X10*3/uL Baso # (Auto) 0.0 (0.0-0.2) X10*3/uL Abs Immat Gran (auto) 0.11 H (0.00-0.03) X10*3/uL Absolute Neuts (auto) 7.2 (2.0-8.3) x10*3/uL Absolute Nucleated RBC 0.000 (0.0-0.012) X10*3/uL Nucleated RBC % (auto) 0.0 (0.0-0.2) /100WBC Stool Occult Blood POSITIVE (NEGATIVE) Radiology Impression Discussion of test interpretation with radiology: I have reviewed the radiologist's reading. Radiologist Impression: 1. Partially visualized ORIF hardware in the left hip traversing a comminuted intertrochanteric fracture. Overlying soft tissue stranding and soft tissue gas are present. More confluent regions of soft tissue attenuation lateral to the left hip are suspicious for postoperative hematomas as noted above. 2. Mural prominence of the relatively collapsed ascending colon, of uncertain clinical significance. In the setting of cirrhosis this could reflect portal colopathy, though an infectious/inflammatory colitis could also have this appearance in the proper clinical setting. 3. Trace perihepatic fluid. 4. Trace left pleural effusion. Critical Care Time Critical Care Time Critical Care Time: Yes Total Critical Care Time: 60 Attestation: I have personally provided critical care time. Time includes review of lab data, radiology results, discussion with consultants, and monitoring for potential decompensation. Intervention performed as documented. Discharge Plan Discharge Clinical Impression: GI bleed, Constipation Patient Disposition: Admitted As Inpatient Print Language: Canadian
[2023-12-06 00:15] LABS: OBS Int Ctl Valid YES; OBS1 POSITIVE (NEGATIVE)
[2023-12-06 01:52] LABS: MANUAL DIFF FLAG NO
[2023-12-06 01:54] LABS: Basophils Percent Auto 0.2 % (0-2); Eosinophils Absolute Auto 0.2 X10*3/uL (0.0-0.4); Eosinophils Percent Auto 2.4 % (0-4); Hematocrit 23.9 % (37.0-47.0); Hemoglobin 7.5 g/dl (12.0-16.0); Imm Gran Abs Auto 0.11 X10*3/uL (0.00-0.03); Imm Gran Pct Auto 1.1 % (0.0-0.4); Lymphocytes Absolute Auto 1.5 X10*3/uL (1.2-4.9); Lymphocytes Percent Auto 15.6 % (20-40); Mean Corpuscular HGB Conc 31.4 g/dl (31.0-35.0); Mean Corpuscular Hemoglobin 29.3 pg (27.0-33.0); Mean Corpuscular Volume 93.4 fL (80.0-98.0); Mean Platelet Volume 9.4 fL (9.4-12.3); Monocytes Absolute Auto 0.8 X10*3/uL (0.1-1.2); Neutrophils Absolute Auto 7.2 x10*3/uL (2.0-8.3); Neutrophils Percent Auto 72.7 % (45-73); Platelet Count 497 X10*3/uL (160-400); Red Blood Count 2.56 X10*6/uL (4.20-5.50); Red Cell Distribution Width 17.4 % (11.0-16.0); White Blood Count 9.9 X10*3/uL (4.8-10.8)
[2023-12-06 02:21] LABS: Alanine Aminotransferase 11 U/L (0-31); Albumin Level 2.7 g/dL (3.5-5.0); Alkaline Phosphatase 241 U/L (39-117); Anion Gap 13 (12-20); Aspartate Amino Transferase 26 U/L (5-31); Bilirubin Direct 0.2 mg/dL (0.0-0.5); Bilirubin Total 0.6 mg/dL (0.0-1.0); Blood Urea Nitrogen 25 mg/dL (9-16); Calcium 8.9 mg/dL (8.4-10.2); Carbon Dioxide 24 mmol/L (22-29); Chloride 106 mmol/L (96-108); Creatinine Clr Calc Pharmacy 25.6; Estimated Glomerular Filt Rate 27; Glucose Random 162 mg/dL (60-115); Lipase 31 U/L (8-78); Potassium 4.4 mmol/L (3.3-5.1); Sodium 139 mmol/L (135-145); Total Protein 6.3 g/dL (6.5-8.0)
--- NOTE | 2023-12-06 03:05 | PC.NURSE ---
blood transfusion started
--- NOTE | 2023-12-06 03:15 | PC.NURSE ---
purewick in place
--- NOTE | 2023-12-06 03:23 | PM.IMHP ---
History of Present Illness Date of Service: 12/06/23 Chief Complaint: Dark stools This is a 72-year-old female with pertinent history of portal hypertensive gastropathy, autoimmune hepatitis/cholangitis with cirrhosis, gastroesophageal reflux disease, insulin-dependent diabetes mellitus, CKD stage 3, history of CVA, hypertension who was sent to the emergency department for evaluation of black stools. Limited history as patient does not want to talk regarding why she is here. Does endorse hip pain and black stools. States she does not want to talk mood as she is upset that she is in a hospital. Does have a history of GI bleeds. Endorses malaise and fatigability. No nausea, vomiting, hematemesis. In the emergency department, imaging concerning for left hip postoperative hematoma. Stool Hemoccult noted to be positive and patient found to be anemic. Review of Systems Constitutional: Constitutional: Reports fatigue, Reports lethargy and Reports malaise Cardiovascular: Cardiovascular: Reports no additional cardiovascular complaints Respiratory: Respiratory: Reports no additional respiratory complaints Gastrointestinal: Gastrointestinal: Reports abdominal pain and Reports melena Genitourinary: Genitourinary: Reports no additional female genitourinary complaints Endocrine: Endocrine: Reports fatigue [facility] Medical History Anemia Uncontrolled type 2 diabetes mellitus with hypoglycemia Chronic constipation Iron deficiency anemia Autoimmune cholangitis CHF (congestive heart failure) Renal failure (ARF), acute on chronic Autoimmune hepatitis CVA (cerebral vascular accident) Normocytic anemia CKD (chronic kidney disease) Fecal occult blood test positive Anemia Pancreatic cyst GERD (gastroesophageal reflux disease) Pancreatitis Depression Hypertriglyceridemia Vitamin D deficiency Constipated Type 2 diabetes mellitus with hyperglycemia Type 2 diabetes mellitus with chronic kidney disease Essential hypertension Hyperlipidemia LDL goal <100 Obesity (BMI 30-39.9) Diabetes mellitus with hyperglycemia Family History Father No problems noted. Mother Diabetes mellitus CVD (cardiovascular disease) Sister Cancer Son Diabetes mellitus Surgical History History of esophagogastroduodenoscopy (EGD) Hx of heart bypass surgery History of appendectomy Hx of colonoscopy Hx of cholecystectomy Social History Household Members: Caregiver Household Members Other:: daughter Housing: Apartment Housing Other:: [employer] services Unable to assess alcohol history related to: Unable to respond Alcohol intake: never Patient Tobacco Use Status: Never used Tobacco Smoked in Last 30 Days: No Use of substances other than those prescribed or required for medical reasons: No Advance Directives: Yes Advance Directives on File: Yes Advance Directives Date on File: 02/06/21 service: No Current occupational status: disabled Meds Allergies Allergy/AdvReac Type Severity Reaction Status Date / Time No Known Allergies Allergy Verified 12/05/23 21:21 [No Known Allergies*] Home Medications ?Medication ?Instructions ?Recorded ?Confirmed ?Last Taken ?Type aspirin 81 mg tablet,delayed 81 mg PO DAILY 02/27/20 06/10/23 03/19/23 History release (Adult Aspirin Regimen) cholecalciferol (vitamin D3) 50 2,000 unit PO DAILY 02/27/20 06/10/23 03/19/23 History mcg (2,000 unit) capsule metoprolol tartrate 25 mg tablet 12.5 mg PO DAILY 02/27/20 06/10/23 03/19/23 History cetirizine 10 mg capsule (All Day 10 mg PO DAILY PRN Allergic 11/16/20 06/10/23 04/05/21 History Allergy (cetirizine)) Symptoms linaclotide 145 mcg capsule 145 mcg PO DAILY PRN GI UPSET 12/29/22 06/10/23 Unknown History (Linzess) pantoprazole 40 mg tablet,delayed 40 mg PO DAILY 12/29/22 06/10/23 03/19/23 History release trazodone 100 mg tablet 100 mg PO BEDTIME 12/29/22 06/10/23 03/19/23 History acetaminophen 500 mg tablet 500 mg PO Q6H PRN mild pain 03/20/23 06/10/23 Unknown History multivitamin with folic acid 400 1 tab PO QAM 03/20/23 06/10/23 03/19/23 History mcg tablet (Daily-Katie (with folic acid)) fluticasone propionate 50 1 spray intranasal BID 06/10/23 06/10/23 Unknown History mcg/actuation nasal spray,suspension insulin glargine 100 unit/mL 25 unit subcut DAILY 06/10/23 06/10/23 Unknown History subcutaneous solution (Lantus U-100 Insulin) insulin lispro 100 unit/mL 0 sliding scale dose subcut QIDACHS 06/10/23 06/10/23 Unknown History subcutaneous solution (Humalog U-100 Insulin) Physical Exam Vital Signs and Narrative: Vital Signs: Last Vital Signs Temp 97.8 F 12/06/23 03:16 Pulse 70 12/06/23 03:16 Resp 22 H 12/06/23 03:16 BP 121/51 L 12/06/23 03:16 Pulse Ox 99 12/06/23 02:43 O2 Del Method Room Air 12/06/23 02:43 BMI result Body Mass Index 34.1 Middle-aged female lying in bed in no distress Neck supple, no JVD Regular rate and rhythm, S1-S2 heard Regular breath sounds bilaterally, no wheezing or crackles appreciated Abdomen soft nontender, no guarding, no rigidity Patient is awake, alert and oriented to self, place, time and person ; no focal motor deficit Psych: Normal mood No pedal edema Results Labs 12/06/23 01:42 12/06/23 01:42 Labs: Laboratory Results - last 24 hr 12/06/23 12/06/23 00:09 01:42 MCV 93.4 MCH 29.3 MCHC 31.4 RDW 17.4 H Plt Count 497 H D MPV 9.4 Immature Gran % (Auto) 1.1 H Neut % (Auto) 72.7 Lymph % (Auto) 15.6 L [place] % (Auto) 8.0 Eos % (Auto) 2.4 Baso % (Auto) 0.2 Lymph # (Auto) 1.5 [place] # (Auto) 0.8 Eos # (Auto) 0.2 Baso # (Auto) 0.0 Abs Immat Gran (auto) 0.11 H Absolute Neuts (auto) 7.2 Absolute Nucleated RBC 0.000 Nucleated RBC % (auto) 0.0 Anion Gap 13 Estim Creat Clear Calc 25.6 Estimated GFR 27 Random Glucose 162 H Calcium 8.9 D Total Bilirubin 0.6 Direct Bilirubin 0.2 AST 26 ALT 11 Alkaline Phosphatase 241 H Total Protein 6.3 L Albumin 2.7 L Lipase 31 Stool Occult Blood POSITIVE Blood Type A Positive Antibody Screen NEGATIVE Crossmatch See Detail Imaging Radiologist's Impressions: Impressions Abdomen/Pelvis CT 12/06/23 01:00 IMPRESSION: 1. Partially visualized ORIF hardware in the left hip traversing a comminuted intertrochanteric fracture. Overlying soft tissue stranding and soft tissue gas are present. More confluent regions of soft tissue attenuation lateral to the left hip are suspicious for postoperative hematomas as noted above. 2. Mural prominence of the relatively collapsed ascending colon, of uncertain clinical significance. In the setting of cirrhosis this could reflect portal colopathy, though an infectious/inflammatory colitis could also have this appearance in the proper clinical setting. 3. Trace perihepatic fluid. 4. Trace left pleural effusion. Assessment and Plan (1) GI bleed: Status: Acute Plan This is a 72-year-old female with pertinent history of portal hypertensive gastropathy, autoimmune hepatitis/cholangitis with cirrhosis, gastroesophageal reflux disease, insulin-dependent diabetes mellitus, CKD stage 3, history of CVA, hypertension who was sent to the emergency department for evaluation of black stools. #. Acute GI bleed: Will admit patient with cardiac monitoring. Patient noted to have black tarry stools and found to be Hemoccult positive in the ER. Initiating IV Protonix, IV octreotide and consulting Gastroenterology. Hold aspirin #. Acute on chronic anemia in the setting of above: 1 unit PRBC been transfused in the ER. Closely monitor H&H. CT with ?left hip postoperative hematoma. Consulting Orthopedic surgery #. Hypertension: Continue amlodipine and metoprolol if blood pressure allows #. CKD stage 3: Continue to monitor nephrotoxins #. Mood disorder: Continue home mood stabilizers #. Insulin-dependent diabetes mellitus: Initiating Accu-Cheks with sliding scale insulin #. Autoimmune cholangitis: On ursodiol Med rec pending DVT prophylaxis: Mechanical Full code Admit as inpatient and will require two night minimum hospital stay for close monitoring of hemodynamics, H&H (as above), which is not possible in a lesser acute setting. Specialist consult pending Quality Stroke Does the patient have a stroke diagnosis?: No VTE Prior VTE?: No VTE Risk Level:: Medical - moderate - high VTE Device Contraindication: N/A - Device Ordered VTE Drug Contraindication: Treatment Not Indicated
--- NOTE | 2023-12-06 04:46 | PC.NURSE ---
attempting to obtain 2nd IV access. pt refusing, meds delayed
[2023-12-06] MEDS: Pantoprazole Sodium 40 MG/10 ML VIAL IVPUSH ×3 (05:06→16:10)
[2023-12-06] MEDS: cefTRIAXone sodium 1 GM in 0.9 % Sodium Chloride 50 ML IV (05:06)
[2023-12-06] MEDS: Octreotide Acetate 100 MCG/ML AMPUL 50 MCG IVPUSH (05:06)
--- NOTE | 2023-12-06 05:14 | PC.NURSE ---
22g L forearm, pt very agitated. hospitalist at bedside. pt expressing she wants to go home
--- NOTE | 2023-12-06 05:25 | PC.NURSE ---
blood transfusion paused, pt complaining of pain at IV site. unsure of infiltration. provider will attempt new US IV after pt is medicated per MAR with ativan. ABX and other medications in 22g in L forearm.
[2023-12-06] MEDS: LORazepam 2 MG/ML VIAL 1 MG IVPUSH ×2 (05:42→23:58)
[2023-12-06] MEDS: Lactated Ringers 1,000 ML 999 ML IV (05:44)
--- NOTE | 2023-12-06 06:07 | PC.NURSE ---
US 20g IV on RAC for blood transfusion now very bruised, line removed
--- NOTE | 2023-12-06 06:30 | PC.NURSE ---
medication delay, octreotide acetate 500mcg, pharmacy has to mix/deliver med. tech will not be in to do so until 7am per pharmacy.
--- NOTE | 2023-12-06 07:06 | PC.NURSE ---
provider unable to get 2nd IV at this time , pt refused labs for phlebotomy
--- NOTE | 2023-12-06 07:23 | PC.NURSE ---
held blood no longer viable. bag discarded per blood bank, new order will need to be placed. provider placed 20g to upper Rarm at this time
--- NOTE | 2023-12-06 07:40 | HO.PM.IMPN ---
Subjective Subjective Date of Service: 12/06/23 Interval History: Seen in follow-up for acute upper GI bleed Interval history: Reports episode of melena this morning. She also states that she takes ibuprofen 4 times daily and is also on baby aspirin. She is also on subcutaneous heparin as DVT prophylaxis following hip surgery, all of which are on hold. Has no complaints at this time. Georgian interpretor used Review of Systems Review of Systems: Yes all other systems are reviewed and are negative Physical Exam Vital Signs: Vital Signs: Last Vital Signs Temp 97.8 F 12/06/23 07:22 Pulse 72 12/06/23 07:22 Resp 16 12/06/23 07:22 BP 140/66 H 12/06/23 07:22 Pulse Ox 99 12/06/23 02:43 O2 Del Method Room Air 12/06/23 02:43 BMI result Body Mass Index 34.1 Constitutional - Awake and Alert, No apparent distress Eyes - PERRLA, EOMI Cardiovascular - S1S2, RRR, No edema Respiratory - Normal lung expansion, Normal respiratory effort, No respiratory distress, CTA bilaterally Gastrointestinal - NT / ND; +BS; No rebound or guarding Extremities - no calf tenderness bilaterally, no swelling Skin - Warm/Dry Neurological - Alert & oriented x3 Psychological - Appropriate affect Objective Data Active Medications Acetaminophen (Acetaminophen 325 Mg Tablet) 650 mg PO Q6H PRN PRN Reason: Pain, Mild (Pain Scale 1-3), fever or headache Calcium Carbonate (Calcium Carbonate 750 Mg Tab.Chew) 750 mg PO Q4H PRN PRN Reason: Heartburn Glucose (Glucose Gel 15 Gm Gel..Gram.) 15 gm PO Q15M PRN; Protocol PRN Reason: per Hypoglycemia Standing Ord. Dextrose (D10) 250 mls @ 750 mls/hr IV Q15M PRN; Protocol PRN Reason: per Hypoglycemia Standing Ord. Ceftriaxone Sodium 1 gm/ (Sodium Chloride) 50 mls @ 100 mls/hr IV 0600 [facility] Last Infusion: 12/06/23 05:42 Dose: Infused Documented By: BELLA Octreotide Acetate 500 mcg/ (Sodium Chloride) 500 mls @ 50 mls/hr IVCONT .Q10H [facility] Magnesium Hydroxide (Milk Of Magnesia 30 Ml Oral.Susp) 30 ml PO DAILY PRN PRN Reason: Constipation Melatonin (Melatonin 3 Mg Tablet) 6 mg PO BEDTIME PRN PRN Reason: Insomnia Ondansetron HCl (Ondansetron Hcl 4 Mg/2 Ml Vial) 4 mg IVPUSH Q8H PRN PRN Reason: Nausea and Vomiting Pantoprazole Sodium (Pantoprazole Sodium 40 Mg/10 Ml Vial) 40 mg IVPUSH BID@0630,1630 [facility] Last Admin: 12/06/23 06:50 Dose: 40 mg Documented By: BELLA Sodium Chloride (0.9 % Sodium Chloride Flush 3 Ml Syringe) 3 ml IVFLUSH QSHIFT [facility] Last Admin: 12/06/23 07:24 Dose: Not Given Documented By: MILAC Non-Admin Reason: IV Running Labs 12/06/23 12:21 12/06/23 08:50 Labs: Laboratory Results - last 24 hr 12/06/23 12/06/23 00:09 01:42 MCV 93.4 MCH 29.3 MCHC 31.4 RDW 17.4 H Plt Count 497 H D MPV 9.4 Immature Gran % (Auto) 1.1 H Neut % (Auto) 72.7 Lymph % (Auto) 15.6 L [place] % (Auto) 8.0 Eos % (Auto) 2.4 Baso % (Auto) 0.2 Lymph # (Auto) 1.5 [place] # (Auto) 0.8 Eos # (Auto) 0.2 Baso # (Auto) 0.0 Abs Immat Gran (auto) 0.11 H Absolute Neuts (auto) 7.2 Absolute Nucleated RBC 0.000 Nucleated RBC % (auto) 0.0 Anion Gap 13 Estim Creat Clear Calc 25.6 Estimated GFR 27 Random Glucose 162 H Calcium 8.9 D Total Bilirubin 0.6 Direct Bilirubin 0.2 AST 26 ALT 11 Alkaline Phosphatase 241 H Total Protein 6.3 L Albumin 2.7 L Lipase 31 Stool Occult Blood POSITIVE Blood Type A Positive Antibody Screen NEGATIVE Crossmatch See Detail Assessment and Plan (1) GI bleed: Status: Acute Plan 72-year-old female with pertinent history of portal hypertensive gastropathy, autoimmune hepatitis/cholangitis with cirrhosis, gastroesophageal reflux disease, insulin-dependent diabetes mellitus, CKD stage 3, history of CVA, hypertension admitted for acute GI bleed #Acute GI bleed with acute on chronic anemia due to blood loss -stool occult blood positive -Was only transfused 1/2 unit as IV infiltrated. H/H this morning without improvement. Transfuse 1 additional unit -IV octreotide -IV ppi -clear liquid diet, NPO after minight for EGD tomorrow -hold ASA, subcut heparin (was on for postop DVT prophylaxis). Also reports taking ibuprofen 4 x daily -GI input appreciated -cardaic monitoring -follow cbc #Left hip hematoma -per ortho normal following procedure, no intervention needed # hypertension -resume amlodipine #CKD stage 3 -renal function baseline #Mood disorder -Continue home mood stabilizers #Insulin-dependent diabetes mellitus -POC glucose, advanced to diabetic diet post EGD -Humalog sliding scale #Autoimmune cholangitis -continue ursodiol DVT prophylaxis: Mechanical due to acute GI bleed Full code Ongoing inpatient stay due to acute GI bleed requiring blood transfusions, expert consultation and EGD with close cardiac monitoring and monitoring of hemodynamics as well as monitoring of blood counts Quality Stroke Does the patient have a stroke diagnosis?: No VTE Prior VTE?: No VTE Risk Level:: Medical - moderate - high VTE Device Contraindication: N/A - Device Ordered VTE Drug Contraindication: Treatment Not Indicated
[2023-12-06] MEDS: Octreotide Acetate 500 MCG in 0.9 % Sodium Chloride 500 ML 50 MCG IVCONT ×2 (07:47→18:22)
--- NOTE | 2023-12-06 08:15 | PC.NURSE ---
Addendum entered by Malu Tabor RN 12/06/23 08:22: patient right arm noted to have large bruise from blood infiltration. patient shows no acute distress Original Note: patient resting quietly in bed, respirations equal and unlabored. patient medicated per JUL, octreotide started late due to pharmacy mixing. patient pleasantly confused, states she wants to go home. patient had second IV placed this AM by PA in the right subclavian #20.
--- NOTE | 2023-12-06 08:21 | PM.EVENT ---
Event Note Date of Service: 12/06/23 Event Note: CT findings suggestive of post op hematoma s/p IM Nail. Normal findings, no additional orthopedic intervention needed at this time. Time Spent With Patient Time: Total time managing care of this patient today ____ minutes.
[2023-12-06 09:10] LABS: Anion Gap 15 (12-20); Blood Urea Nitrogen 22 mg/dL (9-16); Calcium 8.5 mg/dL (8.4-10.2); Carbon Dioxide 20 mmol/L (22-29); Chloride 109 mmol/L (96-108); Creatinine Clr Calc Pharmacy 31.5; Estimated Glomerular Filt Rate 34; Glucose Random 154 mg/dL (60-115); Potassium 5.1 mmol/L (3.3-5.1); Sodium 139 mmol/L (135-145)
--- NOTE | 2023-12-06 09:22 | PC.NURSE ---
patient noted to be incontinent of stool this morning, patient had black tarry diarrhea. patient cleaned up, linens and pads changed.
--- NOTE | 2023-12-06 11:01 | PHA.MEDREC ---
Addendum entered by Hector Alejandre [facility] 12/06/23 11:14: med rec checked by [facility] Original Note: Pharmacy Consult ? Medication Reconciliation Pharmacy has completed the medication reconciliation. Used list from [facility]. Her list shows she is in between a 2 step TB skin test. Her step one shows it supposed to be read either today or tomorrow and step 2 starts 12/18/23.
--- NOTE | 2023-12-06 11:49 | MHC.SHP ---
Pre-Procedural Eval Section A - 24 Hr Update-Section A only Date of Service: 12/06/23 Changes since office visit: No Cold of Flu in the past 2 weeks, No New Medical Problems, No Changes in Medication and No Patient answered all questions The patient has been examined within 24 hours of the surgical procedure. The History & Physical has been completed within 30 days and I have reviewed it.: No Section B - Complete if H&P > 30 days Chief Complaint: black stools Allergies: Allergies Allergy/AdvReac Type Severity Reaction Status Date / Time No Known Allergies Allergy Verified 12/05/23 21:21 [No Known Allergies*] Plan I have reviewed the history and physical and performed a pertinent physical examination on my patient. No changes have occurred unless specified. Time Spent With Patient Time: Total time managing care of this patient today ____ minutes.
[2023-12-06 12:28] LABS: Glucose, Whole Blood 180 mg/dL (60-115)
[2023-12-06 12:28] LABS: Hematocrit 23.8 % (37.0-47.0); Hemoglobin 7.5 g/dl (12.0-16.0); Mean Corpuscular HGB Conc 31.5 g/dl (31.0-35.0); Mean Corpuscular Hemoglobin 29.6 pg (27.0-33.0); Mean Corpuscular Volume 94.1 fL (80.0-98.0); NRBC Pct Auto 0.2 /100WBC (0.0-0.2); Platelet Count 372 X10*3/uL (160-400); Red Blood Count 2.53 X10*6/uL (4.20-5.50); Red Cell Distribution Width 17.2 % (11.0-16.0); White Blood Count 8.9 X10*3/uL (4.8-10.8)
--- NOTE | 2023-12-06 12:45 | CONS_ITS ---
DATE OF SERVICE: 12/06/2023 REFERRING PHYSICIAN: Cordelia Epps REASON FOR CONSULTATION: Black stools and anemia. HISTORY OF PRESENT ILLNESS: The patient is a pleasant 72-year-old woman seen today in consultation because of black stools and anemia. She came to the emergency room from a rehab facility because of complaints of constipation. She has had hip surgery and has a large hematoma noted at the site of the surgery, which has been evaluated by Orthopedics and described as normal findings. ER notes indicate the patient had black stools, and she was diagnosed with a GI bleed after a hematocrit of 23.9 was noted down from 35.4 in July of this year. The patient does not report any abdominal pain. She does have a history of gastroesophageal reflux disease. She does not check her stools for blood. She has a history of portal hypertensive gastropathy, autoimmune hepatitis/cholangitis, and gastroesophageal reflux disease and is followed by Dr. Shepard. 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 Previous colonoscopy has shown colon polyps, diverticulosis, and internal hemorrhoids. PAST MEDICAL HISTORY: 1. Gastroesophageal reflux disease. 2. GI bleeding with history of AVMs, varices, and GAVE. 3. Chronic kidney disease. 4. Hypertension. 5. Diabetes mellitus. CURRENT MEDICATIONS: Her current medication list is reviewed in the chart. She denies recent use of NSAIDs. ALLERGIES: THERE ARE NONE REPORTED. FAMILY HISTORY: This is reviewed in the electronic medical record. SOCIAL HISTORY: There is no reported recent tobacco, alcohol, or substance abuse. REVIEW OF SYSTEMS: SKIN: No pruritus. HEENT: Negative. CARDIOPULMONARY: She denies shortness of breath or chest pain. GASTROINTESTINAL: As above. GENITOURINARY: Negative. NEUROPSYCHIATRIC: Negative. PHYSICAL EXAMINATION: GENERAL: Shows a pleasant female, lying comfortably in bed. VITAL SIGNS: Stable. SKIN: Anicteric. HEENT: Shows no scleral icterus. NECK: Without lymphadenopathy or thyromegaly. LUNGS: Clear. HEART: Shows a regular rate and rhythm. S1, S2. No murmur. ABDOMEN: Soft without focal masses or tenderness. Bowel sounds are present. No organomegaly is noted. EXTREMITIES: Without edema. There is a dressing over the left hip. DIAGNOSTIC DATA: Laboratory data and imaging studies including her CT scan of the abdomen and pelvis are reviewed. IMPRESSION: 1. Anemia. 2. Black stools. 3. Hematoma, left hip. Her anemia is likely multifactorial. It is unclear of the timing of her left hip hematoma as no records are available, and the patient has no recollection about any hip issues. I would recommend she undergo upper endoscopy because of her previous GI history with her recent black stools, and I discussed risks and benefits of the procedure with her today. She understands these and agrees to proceed. This will be arranged for tomorrow with Dr. Shepard. I would recommend transfusing her as you are doing and monitoring her hematocrit. Continue proton pump inhibitor. Thanks for asking me to see her. I will follow her in the hospital with you. MD TRANG Spaulding/LUCERO / [phone]
--- NOTE | 2023-12-06 13:30 | PC.NURSE ---
patient noted to have covered surgical wound on left hip, bruising noted. dressings are intact and dry
[2023-12-06] MEDS: amLODIPine Besylate 5 MG TABLET PO (16:10)
[2023-12-06 17:40] LABS: Glucose, Whole Blood 222 mg/dL (60-115)
--- NOTE | 2023-12-06 18:44 | PC.NURSE ---
assumed care of patient at 17:20. upon arrival at unit patient was 2.5 hours into blood transfusion there was also blood noted to have back flown into saline bag. blood was running at rate of 75 mLs an hour due to TACO risk. at 3.5 hour kitty, patient still had approximately 110mLs remaining in bag. HCP and blood bank were notified and this RN was instructed to waste remaining blood at 4 hour kitty. a total of 70 mLs of blood wasted at 4 hour kitty. HCP notified. Post transfusion vitals are as follows: 162/70, 99%, 72, 98.2, 16. patient denies any transfusion reactions/ symptoms
[2023-12-06 20:57] LABS: Hematocrit 30.6 % (37.0-47.0); Hemoglobin 9.4 g/dl (12.0-16.0)
[2023-12-06] MEDS: Sodium Bicarbonate 650 MG TABLET PO (21:17)
[2023-12-06] MEDS: UrsodioL 300 MG CAPSULE PO (21:17)
[2023-12-06] MEDS: Sucralfate 1 GM TABLET PO (21:17)
[2023-12-06 21:40] LABS: Glucose, Whole Blood 236 mg/dL (60-115)
[2023-12-06] MEDS: Insulin Lispro 100 UNIT/ML 3 ML VIAL SUBCUT (21:55)
[2023-12-06] MEDS: Fluticasone Propionate Nasal 16 GM SPRAY 2 SPRAY NOSTRIL-B (21:55)
[2023-12-07] VITALS (12 sets, daily range): BP systolic 117–175; BP diastolic 55–82; PULSE 73–86; RESP 14–20; TEMP 36.1–37.1; O2SAT 93–99; BMI 35.9
[2023-12-07] MEDS: oxyCODONE HCl Immed Release 5 MG TABLET PO ×2 (02:25→07:50)
[2023-12-07 06:58] LABS: Glucose, Whole Blood 200 mg/dL (60-115)
--- NOTE | 2023-12-07 07:38 | P.PNIM_ITS ---
Subjective Subjective Date of Service: 12/07/23 Interval History: Seen in follow-up for acute upper GI bleed Interval history: denies ongoing melena. No n/v, fevers, abd pain. Reports chronic low back pain. Tajik interpretor used Review of Systems Review of Systems: Yes all other systems are reviewed and are negative Physical Exam 2 Vital Signs: Vital Signs: Last Vital Signs Temp 98.2 F 12/07/23 07:11 Pulse 75 12/07/23 07:11 Resp 20 12/07/23 07:11 BP 167/74 H 12/07/23 07:11 Pulse Ox 98 12/07/23 07:11 O2 Del Method Room Air 12/07/23 07:11 BMI result Body Mass Index 35.9 Constitutional - Awake and Alert, No apparent distress Eyes - PERRLA, EOMI Cardiovascular - S1S2, RRR, No edema Respiratory - Normal lung expansion, Normal respiratory effort, No respiratory distress, CTA bilaterally Gastrointestinal - NT / ND; +BS; No rebound or guarding Extremities - no calf tenderness bilaterally, no swelling Skin - Warm/Dry Neurological - Alert & oriented x3 Psychological - Appropriate affect Objective Data Active Medications Acetaminophen (Acetaminophen 325 Mg Tablet) 650 mg PO Q6H PRN PRN Reason: Pain, Mild (Pain Scale 1-3), fever or headache Amlodipine Besylate (Amlodipine Besylate 5 Mg Tablet) 5 mg PO DAILY [facility]; Protocol Last Admin: 12/06/23 16:10 Dose: 5 mg Documented By: QUANG Ascorbic Acid (Ascorbic Acid 500 Mg Tablet) 500 mg PO DAILY [facility] Bisacodyl (Bisacodyl 10 Mg Supp.Rect) 10 mg MS DAILY PRN PRN Reason: Constipation Calcium Carbonate (Calcium Carbonate 750 Mg Tab.Chew) 750 mg PO Q4H PRN PRN Reason: Heartburn Ferrous Sulfate (Ferrous Sulfate 324 Mg Tablet.Dr) 324 mg PO DAILY [facility] Fluticasone Propionate (Fluticasone Propionate Nasal 16 Gm [place]) 2 spray NOSTRIL-B BID [facility] Last Admin: 12/06/23 21:55 Dose: 2 spray Documented By: JOSUE Glucose (Glucose Gel 15 Gm Gel..Gram.) 15 gm PO Q15M PRN; Protocol PRN Reason: per Hypoglycemia Standing Ord. Glucose (Glucose Gel 15 Gm Gel..Gram.) 15 gm PO Q15M PRN; Protocol PRN Reason: per Hypoglycemia Standing Ord. Dextrose (D10) 250 mls @ 750 mls/hr IV Q15M PRN; Protocol PRN Reason: per Hypoglycemia Standing Ord. Ceftriaxone Sodium 1 gm/ (Sodium Chloride) 50 mls @ 100 mls/hr IV 0600 [facility] Last Infusion: 12/06/23 05:42 Dose: Infused Documented By: BELLA Octreotide Acetate 500 mcg/ (Sodium Chloride) 500 mls @ 50 mls/hr IVCONT .Q10H [facility] Last Admin: 12/07/23 00:56 Dose: Not Given Documented By: JOSUE Non-Admin Reason: IV Running Dextrose (D10) 250 mls @ 750 mls/hr IV Q15M PRN; Protocol PRN Reason: per Hypoglycemia Standing Ord. Insulin Human Lispro (Insulin Lispro 100 Unit/Ml 3 Ml Vial) 0 unit SUBCUT QIDACHS [facility]; Protocol Last Admin: 12/06/23 21:55 Dose: 4 unit Documented By: JOSUE Magnesium Hydroxide (Milk Of Magnesia 30 Ml Oral.Susp) 30 ml PO DAILY PRN PRN Reason: Constipation Melatonin (Melatonin 3 Mg Tablet) 6 mg PO BEDTIME PRN PRN Reason: Insomnia Non-Formulary Medication (Linaclotide [Linzess]) 145 mcg PO DAILY [facility] Ondansetron HCl (Ondansetron Hcl 4 Mg/2 Ml Vial) 4 mg IVPUSH Q8H PRN PRN Reason: Nausea and Vomiting Oxycodone HCl (Oxycodone Hcl Immed Release 5 Mg Tablet) 5 mg PO Q6H PRN PRN Reason: Mild to moderate pain Last Admin: 12/07/23 02:25 Dose: 5 mg Documented By: KEY Pantoprazole Sodium (Pantoprazole Sodium 40 Mg/10 Ml Vial) 40 mg IVPUSH BID@0630,1630 [facility] Last Admin: 12/06/23 16:10 Dose: 40 mg Documented By: QUANG Polyethylene Glycol (Polyethylene Glycol 3350 17 Gm Powd.Pack) 17 gm PO DAILY PRN PRN Reason: Constipation Senna (Sennosides 8.6 Mg Tablet) 8.6 mg PO BID [facility] Last Admin: 12/06/23 21:18 Dose: Not Given Documented By: JOSUE Non-Admin Reason: Patient Refused Sodium Bicarbonate (Sodium Bicarbonate 650 Mg Tablet) 650 mg PO BID [facility] Last Admin: 12/06/23 21:17 Dose: 650 mg Documented By: JOSUE Sodium Biphosphate/Sodium Phosphate (Sodium Phosphate,[place]-Dibasic 133 Ml [place]ema) 118 ml MS DAILY PRN PRN Reason: Constipation Sodium Chloride (0.9 % Sodium Chloride Flush 3 Ml Syringe) 3 ml IVFLUSH QSHIFT [facility] Last Admin: 12/07/23 00:42 Dose: Not Given Documented By: JOSUE Non-Admin Reason: IV Running Sucralfate (Sucralfate 1 Gm Tablet) 1 gm PO BID [facility] Last Admin: 12/06/23 21:17 Dose: 1 gm Documented By: JOSUE Ursodiol (Ursodiol 300 Mg Capsule) 300 mg PO TID [facility] Last Admin: 12/06/23 21:17 Dose: 300 mg Documented By: JOSUE Labs 12/06/23 19:20 12/06/23 08:50 Labs: Laboratory Results - last 24 hr 12/06/23 12/06/23 12/06/23 01:42 08:50 12:21 MCV 94.1 MCH 29.6 MCHC 31.5 RDW 17.2 H Plt Count 372 D MPV 11.0 Absolute Nucleated RBC 0.020 H Nucleated RBC % (auto) 0.2 Anion Gap 15 Estim Creat Clear Calc 31.5 Estimated GFR 34 POC Glucose Random Glucose 154 H Calcium 8.5 Blood Type A Positive Antibody Screen NEGATIVE Crossmatch See Detail 12/06/23 12/06/23 12/06/23 12:24 17:36 21:22 MCV MCH MCHC RDW Plt Count MPV Absolute Nucleated RBC Nucleated RBC % (auto) Anion Gap Estim Creat Clear Calc Estimated GFR POC Glucose 180 H 222 H 236 H Random Glucose Calcium Blood Type Antibody Screen Crossmatch 12/07/23 06:54 MCV MCH MCHC RDW Plt Count MPV Absolute Nucleated RBC Nucleated RBC % (auto) Anion Gap Estim Creat Clear Calc Estimated GFR POC Glucose 200 H Random Glucose Calcium Blood Type Antibody Screen Crossmatch Assessment and Plan (1) GI bleed: Status: Acute Plan 72-year-old female with pertinent history of portal hypertensive gastropathy, autoimmune hepatitis/cholangitis with cirrhosis, gastroesophageal reflux disease, insulin-dependent diabetes mellitus, CKD stage 3, history of CVA, hypertension admitted for acute GI bleed #Acute GI bleed with acute on chronic anemia due to blood loss -stool occult blood positive -Was only transfused 1/2 unit as IV infiltrated. However, appropriate rise in h/h to 9.4/30.6% -IV octreotide -IV ppi -clear liquid diet, NPO currently, plan for EGD today -hold ASA, subcut heparin (was on for postop DVT prophylaxis). Also reports taking ibuprofen 4 x daily -GI input appreciated -cardaic monitoring -follow cbc #Left hip hematoma -per ortho normal following procedure, no intervention needed # hypertension -resume amlodipine #CKD stage 3 -renal function baseline #Mood disorder -Continue home mood stabilizers #Insulin-dependent diabetes mellitus -POC glucose, advanced to diabetic diet post EGD -Humalog sliding scale #Autoimmune cholangitis -continue ursodiol DVT prophylaxis: Mechanical due to acute GI bleed Full code Ongoing inpatient stay due to acute GI bleed requiring blood transfusions, expert consultation and EGD with close cardiac monitoring and monitoring of hemodynamics as well as monitoring of blood counts Quality Stroke Does the patient have a stroke diagnosis?: No VTE Prior VTE?: No VTE Risk Level:: Medical - moderate - high VTE Device Contraindication: N/A - Device Ordered VTE Drug Contraindication: Treatment Not Indicated
[2023-12-07] MEDS: cefTRIAXone sodium 1 GM in 0.9 % Sodium Chloride 50 ML IV (07:45)
[2023-12-07] MEDS: amLODIPine Besylate 5 MG TABLET PO (07:46)
[2023-12-07] MEDS: Sucralfate 1 GM TABLET PO ×2 (07:46→20:59)
[2023-12-07] MEDS: Ascorbic Acid 500 MG TABLET PO (07:46)
[2023-12-07] MEDS: UrsodioL 300 MG CAPSULE PO ×2 (07:46→20:59)
[2023-12-07] MEDS: Insulin Lispro 100 UNIT/ML 3 ML VIAL SUBCUT ×2 (07:46→21:00)
[2023-12-07] MEDS: Ferrous Sulfate 324 MG TABLET.DR PO (07:46)
[2023-12-07] MEDS: Sennosides 8.6 MG TABLET PO ×2 (07:46→20:59)
[2023-12-07] MEDS: Sodium Bicarbonate 650 MG TABLET PO ×2 (07:46→20:59)
[2023-12-07] MEDS: Pantoprazole Sodium 40 MG/10 ML VIAL IVPUSH (07:47)
[2023-12-07] MEDS: Octreotide Acetate 500 MCG in 0.9 % Sodium Chloride 500 ML 50 MCG IVCONT ×2 (09:26→20:57)
--- NOTE | 2023-12-07 10:38 | MHC.CM.PN ---
Patient comes to [facility] from STR @ [facility] and the goal is for her to return there to complete STR, pending Navjac[employer] auth(Patient is typically LTC @ [facility] and she is on a [facility] bed hold). AIDAN has initiated and will follow for dc planning. CM spoke with Daughter/HCP/Sara @ [phone] and addressed IMM with her (original will be mailed certified letter to Sara and a copy has been placed on the chart. PCP is Dr. oL Donato.
[2023-12-07 10:48] LABS: Glucose, Whole Blood 130 mg/dL (60-115)
--- NOTE | 2023-12-07 14:21 | MHC.SHP ---
Pre-Procedural Eval Section A - 24 Hr Update-Section A only Date of Service: 12/07/23 The patient is an INPATIENT: Yes Changes since office visit: Yes New Medical Problems and Yes Changes in Medication; No Cold of Flu in the past 2 weeks The patient has been examined within 24 hours of the surgical procedure. The History & Physical has been completed within 30 days and I have reviewed it.: Yes Section B - Complete if H&P > 30 days Chief Complaint: black stools Allergies: Allergies Allergy/AdvReac Type Severity Reaction Status Date / Time No Known Allergies Allergy Verified 12/05/23 21:21 [No Known Allergies*] Plan Diagnosis/Plan: Unchanged I have reviewed the history and physical and performed a pertinent physical examination on my patient. No changes have occurred unless specified. Time Spent With Patient Time: Total time managing care of this patient today ____ minutes.
[2023-12-07 14:53] LABS: Glucose, Whole Blood 162 mg/dL (60-115)
--- NOTE | 2023-12-07 15:44 | HO.ANESPROP2 ---
[facility] Active Problems Active Problems: All Active Problems Constipation (Acute) GI bleed (Acute) AVM (arteriovenous malformation) (Acute) Acute on chronic anemia (Acute) Anemia due to GI blood loss (Acute) Iron deficiency anemia (Acute) GAVE (gastric antral vascular ectasia) (Acute) Acute worsening of stage 3 chronic kidney disease (Acute) Uncontrolled hypertension (Acute) Elevated troponin (Acute) Lumbago (Acute) Elevated serum creatinine (Acute) Low blood pressure (Acute) LUQ abdominal pain (Acute) Hyperlipidemia LDL goal <100 (Acute) Obesity (BMI 30-39.9) (Acute) Diabetes mellitus with hyperglycemia (Acute) Past Medical History Medical History Anemia Uncontrolled type 2 diabetes mellitus with hypoglycemia Chronic constipation Iron deficiency anemia Autoimmune cholangitis CHF (congestive heart failure) Renal failure (ARF), acute on chronic Autoimmune hepatitis CVA (cerebral vascular accident) Normocytic anemia CKD (chronic kidney disease) Fecal occult blood test positive Anemia Pancreatic cyst GERD (gastroesophageal reflux disease) Pancreatitis Depression Hypertriglyceridemia Vitamin D deficiency Constipated Type 2 diabetes mellitus with hyperglycemia Type 2 diabetes mellitus with chronic kidney disease Essential hypertension Hyperlipidemia LDL goal <100 Obesity (BMI 30-39.9) Diabetes mellitus with hyperglycemia Family History Family History Father No problems noted. Mother Diabetes mellitus CVD (cardiovascular disease) Sister Cancer Son Diabetes mellitus Family history of problems with anesthesia: No Surgical History Surgical History History of esophagogastroduodenoscopy (EGD) Hx of heart bypass surgery History of appendectomy Hx of colonoscopy Hx of cholecystectomy History of Problems with Anesthesia: No Social History Social History Household Members: Family Household Members Other:: daughter Housing: Apartment Housing Other:: [employer] services Do you presently have visiting nurse or other home services: No Unable to assess alcohol history related to: Unable to respond Alcohol intake: never Patient Tobacco Use Status: Never used Tobacco Advance Directives Date on File: 02/06/21 service: No Current occupational status: disabled Meds Allergies Allergy/AdvReac Type Severity Reaction Status Date / Time No Known Allergies Allergy Verified 12/05/23 21:21 [No Known Allergies*] Active Medications: Current Medications Acetaminophen (Acetaminophen 325 Mg Tablet) 650 mg PO Q6H PRN PRN Reason: Pain, Mild (Pain Scale 1-3), fever or headache Amlodipine Besylate (Amlodipine Besylate 5 Mg Tablet) 5 mg PO DAILY [facility]; Protocol Last Admin: 12/07/23 07:46 Dose: 5 mg Ascorbic Acid (Ascorbic Acid 500 Mg Tablet) 500 mg PO DAILY [facility] Last Admin: 12/07/23 07:46 Dose: 500 mg Bisacodyl (Bisacodyl 10 Mg Supp.Rect) 10 mg [place] DAILY PRN PRN Reason: Constipation Calcium Carbonate (Calcium Carbonate 750 Mg Tab.Chew) 750 mg PO Q4H PRN PRN Reason: Heartburn Ferrous Sulfate (Ferrous Sulfate 324 Mg Tablet.Dr) 324 mg PO DAILY [facility] Last Admin: 12/07/23 07:46 Dose: 324 mg Fluticasone Propionate (Fluticasone Propionate Nasal 16 Gm Vulcan) 2 spray NOSTRIL-B BID [facility] Last Admin: 12/06/23 21:55 Dose: 2 spray Glucose (Glucose Gel 15 Gm Gel..Gram.) 15 gm PO Q15M PRN; Protocol PRN Reason: per Hypoglycemia Standing Ord. Glucose (Glucose Gel 15 Gm Gel..Gram.) 15 gm PO Q15M PRN; Protocol PRN Reason: per Hypoglycemia Standing Ord. Dextrose (D10) 250 mls @ 750 mls/hr IV Q15M PRN; Protocol PRN Reason: per Hypoglycemia Standing Ord. Ceftriaxone Sodium 1 gm/ (Sodium Chloride) 50 mls @ 100 mls/hr IV 0600 [facility] Last Infusion: 12/07/23 09:55 Dose: Infused Octreotide Acetate 500 mcg/ (Sodium Chloride) 500 mls @ 50 mls/hr IVCONT .Q10H [facility] Last Admin: 12/07/23 09:26 Dose: 50 mcg/hr, 50 mls/hr Dextrose (D10) 250 mls @ 750 mls/hr IV Q15M PRN; Protocol PRN Reason: per Hypoglycemia Standing Ord. Insulin Human Lispro (Insulin Lispro 100 Unit/Ml 3 Ml Vial) 0 unit SUBCUT QIDACHS [facility]; Protocol Last Admin: 12/07/23 14:26 Dose: Not Given Magnesium Hydroxide (Milk Of Magnesia 30 Ml Oral.Susp) 30 ml PO DAILY PRN PRN Reason: Constipation Melatonin (Melatonin 3 Mg Tablet) 6 mg PO BEDTIME PRN PRN Reason: Insomnia Non-Formulary Medication (Linaclotide [Linzess]) 145 mcg PO DAILY [facility] Ondansetron HCl (Ondansetron Hcl 4 Mg/2 Ml Vial) 4 mg IVPUSH Q8H PRN PRN Reason: Nausea and Vomiting Oxycodone HCl (Oxycodone Hcl Immed Release 5 Mg Tablet) 5 mg PO Q6H PRN PRN Reason: Mild to moderate pain Last Admin: 12/07/23 07:50 Dose: 5 mg Pantoprazole Sodium (Pantoprazole Sodium 40 Mg/10 Ml Vial) 40 mg IVPUSH BID@0630,1630 [facility] Last Admin: 12/07/23 07:47 Dose: 40 mg Polyethylene Glycol (Polyethylene Glycol 3350 17 Gm Powd.Pack) 17 gm PO DAILY PRN PRN Reason: Constipation Senna (Sennosides 8.6 Mg Tablet) 8.6 mg PO BID [facility] Last Admin: 12/07/23 07:46 Dose: 8.6 mg Sodium Bicarbonate (Sodium Bicarbonate 650 Mg Tablet) 650 mg PO BID [facility] Last Admin: 12/07/23 07:46 Dose: 650 mg Sodium Biphosphate/Sodium Phosphate (Sodium Phosphate,Richardson-Dibasic 133 Ml Enema) 118 ml IL DAILY PRN PRN Reason: Constipation Sodium Chloride (0.9 % Sodium Chloride Flush 3 Ml Syringe) 3 ml IVFLUSH QSHIFT [facility] Last Admin: 12/07/23 09:27 Dose: Not Given Sucralfate (Sucralfate 1 Gm Tablet) 1 gm PO BID [facility] Last Admin: 12/07/23 07:46 Dose: 1 gm Ursodiol (Ursodiol 300 Mg Capsule) 300 mg PO TID [facility] Last Admin: 12/07/23 07:46 Dose: 300 mg Home Medications ?Medication ?Instructions ?Recorded ?Confirmed ?Last Taken ?Type linaclotide 145 mcg capsule 145 mcg PO DAILY 12/29/22 12/06/23 Unknown History (Linzess) pantoprazole 40 mg tablet,delayed 40 mg PO DAILY 12/29/22 12/06/23 03/19/23 History release fluticasone propionate 50 2 spray intranasal BID 06/10/23 12/06/23 Unknown History mcg/actuation nasal spray,suspension insulin glargine 100 unit/mL 15 unit subcut BEDTIME 06/10/23 12/06/23 Unknown History subcutaneous solution (Lantus U-100 Insulin) insulin lispro 100 unit/mL 1 sliding scale dose subcut QIDACHS 06/10/23 12/06/23 Unknown History subcutaneous solution (Humalog U-100 Insulin) amlodipine 5 mg tablet 5 mg PO DAILY 12/06/23 12/06/23 Unknown History aspirin 81 mg chewable tablet 81 mg PO DAILY 12/06/23 12/06/23 Unknown History bisacodyl 10 mg rectal suppository 10 mg IL DAILY PRN Constipation 12/06/23 12/06/23 Unknown History heparin (porcine) 5,000 unit/mL 5,000 unit subcut Q8H 12/06/23 12/06/23 Unknown History injection solution magnesium hydroxide 400 mg/5 mL 30 ml PO DAILY PRN Constipation 12/06/23 12/06/23 Unknown History oral suspension (Milk of Magnesia) melatonin 3 mg tablet 3 mg PO BEDTIME 12/06/23 12/06/23 Unknown History oxycodone 5 mg tablet 5 mg PO Q6H PRN Mild to moderate 12/06/23 12/06/23 Unknown History pain polyethylene glycol 3350 17 17 g PO DAILY PRN Constipation 12/06/23 12/06/23 Unknown History gram/dose oral powder (Miralax) sennosides 8.6 mg tablet (senna) 8.6 mg PO BID 12/06/23 12/06/23 Unknown History sitagliptin phosphate 50 mg tablet 50 mg PO DAILY 12/06/23 12/06/23 Unknown History (Januvia) sodium bicarbonate 650 mg tablet 650 mg PO BID 12/06/23 12/06/23 Unknown History sodium phosphates 19 gram-7 118 ml IL DAILY PRN Constipation 12/06/23 12/06/23 Unknown History gram/118 mL enema (Fleet Enema) sucralfate 1 gram tablet 1 g PO BID 12/06/23 12/06/23 Unknown History Exam Height,Weight and Vital Signs: Height 5 ft Weight 83.5 kg Last Vital Signs Temp 98.8 F 12/07/23 14:13 Pulse 75 12/07/23 14:13 Resp 20 12/07/23 14:13 BP 117/66 12/07/23 14:13 Pulse Ox 99 12/07/23 14:13 O2 Del Method Room Air 12/07/23 14:13 Pertinent Lab Results Pertinent Lab Results: Laboratory Tests 12/06/23 12/06/23 12/06/23 00:09 01:42 08:50 WBC 9.9 RBC 2.56 L D Hgb 7.5 L D Hct 23.9 L D MCV 93.4 MCH 29.3 MCHC 31.4 RDW 17.4 H Plt Count 497 H D MPV 9.4 Immature Gran % (Auto) 1.1 H Neut % (Auto) 72.7 Lymph % (Auto) 15.6 L Richardson % (Auto) 8.0 Eos % (Auto) 2.4 Baso % (Auto) 0.2 Lymph # (Auto) 1.5 Richardson # (Auto) 0.8 Eos # (Auto) 0.2 Baso # (Auto) 0.0 Abs Immat Gran (auto) 0.11 H Absolute Neuts (auto) 7.2 Absolute Nucleated RBC 0.000 Nucleated RBC % (auto) 0.0 Sodium 139 139 Potassium 4.4 5.1 Chloride 106 109 H Carbon Dioxide 24 20 L Anion Gap 13 15 BUN 25 H 22 H Creatinine 1.85 H 1.50 H Estim Creat Clear Calc 25.6 31.5 Estimated GFR 27 34 POC Glucose Random Glucose 162 H 154 H Calcium 8.9 D 8.5 Total Bilirubin 0.6 Direct Bilirubin 0.2 AST 26 ALT 11 Alkaline Phosphatase 241 H Total Protein 6.3 L Albumin 2.7 L Lipase 31 Stool Occult Blood POSITIVE Blood Type A Positive Antibody Screen NEGATIVE Crossmatch See Detail 12/06/23 12/06/23 12/06/23 12:21 12:24 17:36 WBC 8.9 RBC 2.53 L Hgb 7.5 L Hct 23.8 L MCV 94.1 MCH 29.6 MCHC 31.5 RDW 17.2 H Plt Count 372 D MPV 11.0 Immature Gran % (Auto) Neut % (Auto) Lymph % (Auto) Richardson % (Auto) Eos % (Auto) Baso % (Auto) Lymph # (Auto) Richardson # (Auto) Eos # (Auto) Baso # (Auto) Abs Immat Gran (auto) Absolute Neuts (auto) Absolute Nucleated RBC 0.020 H Nucleated RBC % (auto) 0.2 Sodium Potassium Chloride Carbon Dioxide Anion Gap BUN Creatinine Estim Creat Clear Calc Estimated GFR POC Glucose 180 H 222 H Random Glucose Calcium Total Bilirubin Direct Bilirubin AST ALT Alkaline Phosphatase Total Protein Albumin Lipase Stool Occult Blood Blood Type Antibody Screen Crossmatch 12/06/23 12/06/23 12/07/23 19:20 21:22 06:54 WBC RBC Hgb 9.4 L D Hct 30.6 L D MCV MCH MCHC RDW Plt Count MPV Immature Gran % (Auto) Neut % (Auto) Lymph % (Auto) Richardson % (Auto) Eos % (Auto) Baso % (Auto) Lymph # (Auto) Richardson # (Auto) Eos # (Auto) Baso # (Auto) Abs Immat Gran (auto) Absolute Neuts (auto) Absolute Nucleated RBC Nucleated RBC % (auto) Sodium Potassium Chloride Carbon Dioxide Anion Gap BUN Creatinine Estim Creat Clear Calc Estimated GFR POC Glucose 236 H 200 H Random Glucose Calcium Total Bilirubin Direct Bilirubin AST ALT Alkaline Phosphatase Total Protein Albumin Lipase Stool Occult Blood Blood Type Antibody Screen Crossmatch 12/07/23 12/07/23 10:44 14:50 WBC RBC Hgb Hct MCV MCH MCHC RDW Plt Count MPV Immature Gran % (Auto) Neut % (Auto) Lymph % (Auto) Richardson % (Auto) Eos % (Auto) Baso % (Auto) Lymph # (Auto) Richardson # (Auto) Eos # (Auto) Baso # (Auto) Abs Immat Gran (auto) Absolute Neuts (auto) Absolute Nucleated RBC Nucleated RBC % (auto) Sodium Potassium Chloride Carbon Dioxide Anion Gap BUN Creatinine Estim Creat Clear Calc Estimated GFR POC Glucose 130 H 162 H Random Glucose Calcium Total Bilirubin Direct Bilirubin AST ALT Alkaline Phosphatase Total Protein Albumin Lipase Stool Occult Blood Blood Type Antibody Screen Crossmatch Airway Mallampati Class: III TM Dist: >3cm Neck ROM: Limited Denture: Upper Assessment and Plan Assessment Anesthesia Assessment: Anesthesia Plan Discussed and Chart Reviewed Final Anesthetic Review Family History of Problems with Anesthesia: No History of Problems with Anesthesia: No NPO: Yes ASA Class: IV Final Preanesthetic Review: No Changes in Pt Med Stat, Meds/Allgs Chart Reviewed, Consent Obtained/Reviewed and Anes Risks/Benef Reviewed Patient Risk: Intermediate Procedure Risk: Low Anesthetic Plan Anesthetic Plan: TIVA Disposition: Standard PACU
--- NOTE | 2023-12-07 15:46 | P.OP_ITS ---
Operative Note Operative Note Date of Service: 12/07/23 Narrative: FLEXIBLE TRANSORAL UPPER GASTROINTESTINAL ENDOSCOPY WITH APC OF GAVE Pre-op diagnosis: UGI bleeding, anemia, hx of GAVE Post-op diagnosis: Same Endoscopist:? Malik Shepard MD Anesthesia:?MAC UPPER ENDOSCOPY Consent: Indications for the procedure and potential complications of bleeding, perforation, reaction to medications and missed diagnosis were discussed with the patient's daughter and HCP, Sara, over the phone and informed verbal consent was obtained. Instrument: Olympus GIF H 190 mid size upper endoscope Monitoring: Vital signs and clinical assessment, continuous EKG monitoring, Pulse oximetry, Carbon Dioxide monitoring and blood pressure monitoring were done throughout the procedure. Procedure: The patient was placed in the left lateral decubitis position and pre-procedure medications were administered and a bite block was placed. The endoscope was inserted into the mouth and advanced under direct vision to the third part of duodenum. A careful inspection was made as the upper endoscope was withdrawn including a retroflexed examination of the proximal stomach; Findings and interventions are described below. Findings: Larynx: Normal Esophagus: A single non-bleeding, Grade 1 varix from 25 to 30 cms - flattened completely on air insufflation and not amenable to band ligation. GE junction at 30 cms. No esophagitis or Elaine's. Stomach: Mild GAVE in the distal 3-4 cms of antrum/ pre-pyloric area - treated with APC. Moderate amount of undigested food in the fundus - some of the food was suctioned Unable to visualized the fundus due to retained food Grade 2 flap valve on retroflexed examination of the cardia. Duodenum: Normal bulb and descending duodenum Intervention: APC of GAVE as noted above Impression and Post Procedure Diagnosis: Endoscopy Findings: ESOPHAGUS: A single non-bleeding, Grade 1 varix from 25 to 30 cms - flattened completely on air insufflation and not amenable to band ligation. STOMACH: Mild GAVE in the antrum - treated with APC. Unable to visualized the fundus due to retained food No fresh or old blood noted in the UGI tract during EGD. Plan: Monitor CBC. Continue IV PPI tonight and switch to PO pantoprazole in the am and DC octreotide Check urine ketones every 6 hrs x 24 hrs to rule out euglycemic ketoacidosis. If CBC remains stable, pt can be discharged to Rehab on Pantoprazole 40 mg daily and PO iron . Repeat EGD in 1 year. Patient advised to schedule an appointment in the GI Clinic with Malik Shepard M.D. for follow-up of anemia and autoimmune cholangitis Above findings were reviewed with the patient with the pt's daughter, Sara. From Uptodate: Euglycemic diabetic ketoacidosis: Discontinue therapy 3 to 5 days prior to surgery (Isaiah 2016). Postoperatively, assess volume status, caloric intake, and need for diabetes treatment and withhold antidiabetic medication if type 2 diabetes is in remission. Ketoacidosis has been reported in patients with type 1 and type 2 diabetes on SGLT2 inhibitors. In some cases, normal or only modestly elevated blood glucose was present (<250 mg/dL) (teresa Pickett 2018). Risk factors include significant reduction in insulin, caloric restriction, stress of surger y, and infection.
--- NOTE | 2023-12-07 15:57 | P.CONAN_ITS ---
[facility] Active Problems Active Problems: All Active Problems Constipation (Acute) GI bleed (Acute) AVM (arteriovenous malformation) (Acute) Acute on chronic anemia (Acute) Anemia due to GI blood loss (Acute) Iron deficiency anemia (Acute) GAVE (gastric antral vascular ectasia) (Acute) Acute worsening of stage 3 chronic kidney disease (Acute) Uncontrolled hypertension (Acute) Elevated troponin (Acute) Lumbago (Acute) Elevated serum creatinine (Acute) Low blood pressure (Acute) LUQ abdominal pain (Acute) Hyperlipidemia LDL goal <100 (Acute) Obesity (BMI 30-39.9) (Acute) Diabetes mellitus with hyperglycemia (Acute) Past Medical History Medical History Anemia Uncontrolled type 2 diabetes mellitus with hypoglycemia Chronic constipation Iron deficiency anemia Autoimmune cholangitis CHF (congestive heart failure) Renal failure (ARF), acute on chronic Autoimmune hepatitis CVA (cerebral vascular accident) Normocytic anemia CKD (chronic kidney disease) Fecal occult blood test positive Anemia Pancreatic cyst GERD (gastroesophageal reflux disease) Pancreatitis Depression Hypertriglyceridemia Vitamin D deficiency Constipated Type 2 diabetes mellitus with hyperglycemia Type 2 diabetes mellitus with chronic kidney disease Essential hypertension Hyperlipidemia LDL goal <100 Obesity (BMI 30-39.9) Diabetes mellitus with hyperglycemia Family History Family History Father No problems noted. Mother Diabetes mellitus CVD (cardiovascular disease) Sister Cancer Son Diabetes mellitus Family history of problems with anesthesia: No Surgical History Surgical History History of esophagogastroduodenoscopy (EGD) Hx of heart bypass surgery History of appendectomy Hx of colonoscopy Hx of cholecystectomy History of Problems with Anesthesia: No Social History Social History Household Members: Family Household Members Other:: daughter Housing: Apartment Housing Other:: [employer] services Do you presently have visiting nurse or other home services: No Unable to assess alcohol history related to: Unable to respond Alcohol intake: never Patient Tobacco Use Status: Never used Tobacco Advance Directives Date on File: 02/06/21 service: No Current occupational status: disabled Meds Allergies Allergy/AdvReac Type Severity Reaction Status Date / Time No Known Allergies Allergy Verified 12/05/23 21:21 [No Known Allergies*] Active Medications: Current Medications Acetaminophen (Acetaminophen 325 Mg Tablet) 650 mg PO Q6H PRN PRN Reason: Pain, Mild (Pain Scale 1-3), fever or headache Amlodipine Besylate (Amlodipine Besylate 5 Mg Tablet) 5 mg PO DAILY [facility]; Protocol Last Admin: 12/07/23 07:46 Dose: 5 mg Ascorbic Acid (Ascorbic Acid 500 Mg Tablet) 500 mg PO DAILY [facility] Last Admin: 12/07/23 07:46 Dose: 500 mg Bisacodyl (Bisacodyl 10 Mg Supp.Rect) 10 mg [place] DAILY PRN PRN Reason: Constipation Calcium Carbonate (Calcium Carbonate 750 Mg Tab.Chew) 750 mg PO Q4H PRN PRN Reason: Heartburn Ferrous Sulfate (Ferrous Sulfate 324 Mg Tablet.Dr) 324 mg PO DAILY [facility] Last Admin: 12/07/23 07:46 Dose: 324 mg Fluticasone Propionate (Fluticasone Propionate Nasal 16 Gm [place]) 2 spray NOSTRIL-B BID [facility] Last Admin: 12/06/23 21:55 Dose: 2 spray Glucose (Glucose Gel 15 Gm Gel..Gram.) 15 gm PO Q15M PRN; Protocol PRN Reason: per Hypoglycemia Standing Ord. Glucose (Glucose Gel 15 Gm Gel..Gram.) 15 gm PO Q15M PRN; Protocol PRN Reason: per Hypoglycemia Standing Ord. Dextrose (D10) 250 mls @ 750 mls/hr IV Q15M PRN; Protocol PRN Reason: per Hypoglycemia Standing Ord. Ceftriaxone Sodium 1 gm/ (Sodium Chloride) 50 mls @ 100 mls/hr IV 0600 [facility] Last Infusion: 12/07/23 09:55 Dose: Infused Octreotide Acetate 500 mcg/ (Sodium Chloride) 500 mls @ 50 mls/hr IVCONT .Q10H [facility] Last Admin: 12/07/23 09:26 Dose: 50 mcg/hr, 50 mls/hr Dextrose (D10) 250 mls @ 750 mls/hr IV Q15M PRN; Protocol PRN Reason: per Hypoglycemia Standing Ord. Insulin Human Lispro (Insulin Lispro 100 Unit/Ml 3 Ml Vial) 0 unit SUBCUT QIDACHS [facility]; Protocol Last Admin: 12/07/23 14:26 Dose: Not Given Magnesium Hydroxide (Milk Of Magnesia 30 Ml Oral.Susp) 30 ml PO DAILY PRN PRN Reason: Constipation Melatonin (Melatonin 3 Mg Tablet) 6 mg PO BEDTIME PRN PRN Reason: Insomnia Non-Formulary Medication (Linaclotide [Linzess]) 145 mcg PO DAILY [facility] Ondansetron HCl (Ondansetron Hcl 4 Mg/2 Ml Vial) 4 mg IVPUSH Q8H PRN PRN Reason: Nausea and Vomiting Oxycodone HCl (Oxycodone Hcl Immed Release 5 Mg Tablet) 5 mg PO Q6H PRN PRN Reason: Mild to moderate pain Last Admin: 12/07/23 07:50 Dose: 5 mg Pantoprazole Sodium (Pantoprazole Sodium 40 Mg/10 Ml Vial) 40 mg IVPUSH BID@0630,1630 [facility] Last Admin: 12/07/23 07:47 Dose: 40 mg Polyethylene Glycol (Polyethylene Glycol 3350 17 Gm Powd.Pack) 17 gm PO DAILY PRN PRN Reason: Constipation Senna (Sennosides 8.6 Mg Tablet) 8.6 mg PO BID [facility] Last Admin: 12/07/23 07:46 Dose: 8.6 mg Sodium Bicarbonate (Sodium Bicarbonate 650 Mg Tablet) 650 mg PO BID [facility] Last Admin: 12/07/23 07:46 Dose: 650 mg Sodium Biphosphate/Sodium Phosphate (Sodium Phosphate,[place]-Dibasic 133 Ml Enema) 118 ml [place] DAILY PRN PRN Reason: Constipation Sodium Chloride (0.9 % Sodium Chloride Flush 3 Ml Syringe) 3 ml IVFLUSH QSHIFT [facility] Last Admin: 12/07/23 09:27 Dose: Not Given Sucralfate (Sucralfate 1 Gm Tablet) 1 gm PO BID [facility] Last Admin: 12/07/23 07:46 Dose: 1 gm Ursodiol (Ursodiol 300 Mg Capsule) 300 mg PO TID [facility] Last Admin: 12/07/23 07:46 Dose: 300 mg Home Medications ?Medication ?Instructions ?Recorded ?Confirmed ?Last Taken ?Type linaclotide 145 mcg capsule 145 mcg PO DAILY 12/29/22 12/06/23 Unknown History (Linzess) pantoprazole 40 mg tablet,delayed 40 mg PO DAILY 12/29/22 12/06/23 03/19/23 History release fluticasone propionate 50 2 spray intranasal BID 06/10/23 12/06/23 Unknown History mcg/actuation nasal spray,suspension insulin glargine 100 unit/mL 15 unit subcut BEDTIME 06/10/23 12/06/23 Unknown History subcutaneous solution (Lantus U-100 Insulin) insulin lispro 100 unit/mL 1 sliding scale dose subcut QIDACHS 06/10/23 12/06/23 Unknown History subcutaneous solution (Humalog U-100 Insulin) amlodipine 5 mg tablet 5 mg PO DAILY 12/06/23 12/06/23 Unknown History aspirin 81 mg chewable tablet 81 mg PO DAILY 12/06/23 12/06/23 Unknown History bisacodyl 10 mg rectal suppository 10 mg [place] DAILY PRN Constipation 12/06/23 12/06/23 Unknown History heparin (porcine) 5,000 unit/mL 5,000 unit subcut Q8H 12/06/23 12/06/23 Unknown History injection solution magnesium hydroxide 400 mg/5 mL 30 ml PO DAILY PRN Constipation 12/06/23 12/06/23 Unknown History oral suspension (Milk of Magnesia) melatonin 3 mg tablet 3 mg PO BEDTIME 12/06/23 12/06/23 Unknown History oxycodone 5 mg tablet 5 mg PO Q6H PRN Mild to moderate 12/06/23 12/06/23 Unknown History pain polyethylene glycol 3350 17 17 g PO DAILY PRN Constipation 12/06/23 12/06/23 Unknown History gram/dose oral powder (Miralax) sennosides 8.6 mg tablet (senna) 8.6 mg PO BID 12/06/23 12/06/23 Unknown History sitagliptin phosphate 50 mg tablet 50 mg PO DAILY 12/06/23 12/06/23 Unknown History (Januvia) sodium bicarbonate 650 mg tablet 650 mg PO BID 12/06/23 12/06/23 Unknown History sodium phosphates 19 gram-7 118 ml [place] DAILY PRN Constipation 12/06/23 12/06/23 Unknown History gram/118 mL enema (Fleet Enema) sucralfate 1 gram tablet 1 g PO BID 12/06/23 12/06/23 Unknown History Exam Height,Weight and Vital Signs: Height 5 ft Weight 83.5 kg Last Vital Signs Temp 98.8 F 12/07/23 14:13 Pulse 75 12/07/23 14:13 Resp 20 12/07/23 14:13 BP 117/66 12/07/23 14:13 Pulse Ox 99 12/07/23 14:13 O2 Del Method Room Air 12/07/23 14:13 Pertinent Lab Results Pertinent Lab Results: lLaboratory Tests 12/06/23 12/06/23 12/06/23 00:09 01:42 08:50 WBC 9.9 RBC 2.56 L D Hgb 7.5 L D Hct 23.9 L D MCV 93.4 MCH 29.3 MCHC 31.4 RDW 17.4 H Plt Count 497 H D MPV 9.4 Immature Gran % (Auto) 1.1 H Neut % (Auto) 72.7 Lymph % (Auto) 15.6 L Thomas % (Auto) 8.0 Eos % (Auto) 2.4 Baso % (Auto) 0.2 Lymph # (Auto) 1.5 Thomas # (Auto) 0.8 Eos # (Auto) 0.2 Baso # (Auto) 0.0 Abs Immat Gran (auto) 0.11 H Absolute Neuts (auto) 7.2 Absolute Nucleated RBC 0.000 Nucleated RBC % (auto) 0.0 Sodium 139 139 Potassium 4.4 5.1 Chloride 106 109 H Carbon Dioxide 24 20 L Anion Gap 13 15 BUN 25 H 22 H Creatinine 1.85 H 1.50 H Estim Creat Clear Calc 25.6 31.5 Estimated GFR 27 34 POC Glucose Random Glucose 162 H 154 H Calcium 8.9 D 8.5 Total Bilirubin 0.6 Direct Bilirubin 0.2 AST 26 ALT 11 Alkaline Phosphatase 241 H Total Protein 6.3 L Albumin 2.7 L Lipase 31 Stool Occult Blood POSITIVE Blood Type A Positive Antibody Screen NEGATIVE Crossmatch See Detail 12/06/23 12/06/23 12/06/23 12:21 12:24 17:36 WBC 8.9 RBC 2.53 L Hgb 7.5 L Hct 23.8 L MCV 94.1 MCH 29.6 MCHC 31.5 RDW 17.2 H Plt Count 372 D MPV 11.0 Immature Gran % (Auto) Neut % (Auto) Lymph % (Auto) Thomas % (Auto) Eos % (Auto) Baso % (Auto) Lymph # (Auto) Thomas # (Auto) Eos # (Auto) Baso # (Auto) Abs Immat Gran (auto) Absolute Neuts (auto) Absolute Nucleated RBC 0.020 H Nucleated RBC % (auto) 0.2 Sodium Potassium Chloride Carbon Dioxide Anion Gap BUN Creatinine Estim Creat Clear Calc Estimated GFR POC Glucose 180 H 222 H Random Glucose Calcium Total Bilirubin Direct Bilirubin AST ALT Alkaline Phosphatase Total Protein Albumin Lipase Stool Occult Blood Blood Type Antibody Screen Crossmatch 12/06/23 12/06/23 12/07/23 19:20 21:22 06:54 WBC RBC Hgb 9.4 L D Hct 30.6 L D MCV MCH MCHC RDW Plt Count MPV Immature Gran % (Auto) Neut % (Auto) Lymph % (Auto) Thomas % (Auto) Eos % (Auto) Baso % (Auto) Lymph # (Auto) Thomas # (Auto) Eos # (Auto) Baso # (Auto) Abs Immat Gran (auto) Absolute Neuts (auto) Absolute Nucleated RBC Nucleated RBC % (auto) Sodium Potassium Chloride Carbon Dioxide Anion Gap BUN Creatinine Estim Creat Clear Calc Estimated GFR POC Glucose 236 H 200 H Random Glucose Calcium Total Bilirubin Direct Bilirubin AST ALT Alkaline Phosphatase Total Protein Albumin Lipase Stool Occult Blood Blood Type Antibody Screen Crossmatch 12/07/23 12/07/23 10:44 14:50 WBC RBC Hgb Hct MCV MCH MCHC RDW Plt Count MPV Immature Gran % (Auto) Neut % (Auto) Lymph % (Auto) Thomas % (Auto) Eos % (Auto) Baso % (Auto) Lymph # (Auto) Thomas # (Auto) Eos # (Auto) Baso # (Auto) Abs Immat Gran (auto) Absolute Neuts (auto) Absolute Nucleated RBC Nucleated RBC % (auto) Sodium Potassium Chloride Carbon Dioxide Anion Gap BUN Creatinine Estim Creat Clear Calc Estimated GFR POC Glucose 130 H 162 H Random Glucose Calcium Total Bilirubin Direct Bilirubin AST ALT Alkaline Phosphatase Total Protein Albumin Lipase Stool Occult Blood Blood Type Antibody Screen Crossmatch Airway Mallampati Class: III TM Dist: >3cm Neck ROM: Limited Assessment and Plan Final Anesthetic Review Family History of Problems with Anesthesia: No History of Problems with Anesthesia: No
--- NOTE | 2023-12-07 16:03 | PC.NURSE ---
unable to remove upper denture--anesthesia aware
[2023-12-07 17:45] LABS: Glucose, Whole Blood 192 mg/dL (60-115)
[2023-12-07 19:48] LABS: Glucose, Whole Blood 257 mg/dL (60-115)
[2023-12-07] MEDS: 0.9 % Sodium Chloride Flush 3 ML SYRINGE IVFLUSH (21:03)
[2023-12-07 23:06] LABS: MANUAL DIFF FLAG NO
[2023-12-07 23:08] LABS: Basophils Percent Auto 0.4 % (0-2); Eosinophils Absolute Auto 0.3 X10*3/uL (0.0-0.4); Eosinophils Percent Auto 3.2 % (0-4); Hematocrit 27.8 % (37.0-47.0); Hemoglobin 8.8 g/dl (12.0-16.0); Imm Gran Abs Auto 0.06 X10*3/uL (0.00-0.03); Imm Gran Pct Auto 0.6 % (0.0-0.4); Lymphocytes Absolute Auto 1.3 X10*3/uL (1.2-4.9); Lymphocytes Percent Auto 13.4 % (20-40); Mean Corpuscular HGB Conc 31.7 g/dl (31.0-35.0); Mean Corpuscular Hemoglobin 29.6 pg (27.0-33.0); Mean Corpuscular Volume 93.6 fL (80.0-98.0); Mean Platelet Volume 9.1 fL (9.4-12.3); Monocytes Absolute Auto 0.8 X10*3/uL (0.1-1.2); Monocytes Percent Auto 7.9 % (2-11); Neutrophils Absolute Auto 7.4 x10*3/uL (2.0-8.3); Neutrophils Percent Auto 74.5 % (45-73); Platelet Count 487 X10*3/uL (160-400); Red Blood Count 2.97 X10*6/uL (4.20-5.50); Red Cell Distribution Width 17.4 % (11.0-16.0); White Blood Count 9.9 X10*3/uL (4.8-10.8)
[2023-12-07 23:19] LABS: Anion Gap 10 (12-20); Blood Urea Nitrogen 19 mg/dL (9-16); Calcium 8.3 mg/dL (8.4-10.2); Carbon Dioxide 22 mmol/L (22-29); Chloride 109 mmol/L (96-108); Creatinine Clr Calc Pharmacy 31.6; Estimated Glomerular Filt Rate 33; Glucose Random 316 mg/dL (60-115); Potassium 4.4 mmol/L (3.3-5.1); Sodium 137 mmol/L (135-145)
[2023-12-08] VITALS (7 sets, daily range): BP systolic 146–170; BP diastolic 64–72; PULSE 73–84; RESP 14–20; TEMP 36.2–37.1; O2SAT 91–97
[2023-12-08 01:00] LABS: Glucose, Whole Blood 275 mg/dL (60-115)
[2023-12-08 02:15] LABS: Appearance Urine Clear; Color Urine Yellow; Glucose Urine UA 250 mg/dL (Negative); Leukocyte Esterase Urine Moderate (2+) (Negative); Nitrite Urine Negative (Negative); PH 6.5 (5.0-9.0); UMIC TRIGGER UACC YES; Urine Blood Trace (Negative); Urine Ketones Negative (Negative); Urine Protein 300 (3+) mg/dL (Neg-Trace)
[2023-12-08 02:17] LABS: Bacteria Urine None Seen (None Seen); Hyaline Casts Urine 0-2 /LPF (0-2); RBC Urine 0-2 /HPF (0-2); Squamous Epithelial Cell Urine 0-2 /HPF (0-2); UACC Culture Trigger YES; WBC Urine 21-50 /HPF (0-5)
[2023-12-08] MEDS: oxyCODONE HCl Immed Release 5 MG TABLET PO ×4 (02:30→23:12)
[2023-12-08] MEDS: cefTRIAXone sodium 1 GM in 0.9 % Sodium Chloride 50 ML IV (05:54)
[2023-12-08] MEDS: Pantoprazole Sodium 40 MG/10 ML VIAL IVPUSH ×2 (05:54→16:17)
[2023-12-08 06:28] LABS: Glucose, Whole Blood 238 mg/dL (60-115)
[2023-12-08 07:03] LABS: Glucose, Whole Blood 228 mg/dL (60-115)
[2023-12-08] MEDS: amLODIPine Besylate 5 MG TABLET PO (08:40)
[2023-12-08] MEDS: Sodium Bicarbonate 650 MG TABLET PO ×2 (08:40→21:16)
[2023-12-08] MEDS: Ferrous Sulfate 324 MG TABLET.DR PO (08:40)
[2023-12-08] MEDS: Sucralfate 1 GM TABLET PO ×2 (08:40→21:16)
[2023-12-08] MEDS: Ascorbic Acid 500 MG TABLET PO (08:40)
[2023-12-08] MEDS: Sennosides 8.6 MG TABLET PO ×2 (08:40→21:16)
[2023-12-08] MEDS: UrsodioL 300 MG CAPSULE PO ×3 (08:40→21:16)
[2023-12-08] MEDS: Insulin Lispro 100 UNIT/ML 3 ML VIAL SUBCUT ×3 (08:48→21:16)
[2023-12-08] MEDS: Octreotide Acetate 500 MCG in 0.9 % Sodium Chloride 500 ML 50 MCG IVCONT (09:42)
--- NOTE | 2023-12-08 09:50 | HO.POSTANES ---
Post Anesthesia Evaluation Post Anesthesia Evaluation Date of Service: 12/08/23 Vital Signs: Vital Signs Temp Pulse Resp BP Pulse Ox O2 Del Method 12/08/23 07:09 98.7 F 78 18 164/64 H 96 Room Air 12/08/23 04:00 97.4 F 81 16 152/64 H 95 Room Air 12/08/23 00:00 97.2 F 81 14 146/66 H 95 Room Air Anesthesia: Monitored Mental Status: Awake Pain Control: Satisfactory Nausea/Vomiting: None Hydration: Adequate Anesthesia-Related Issues: No Anes. Related Issues
[2023-12-08] MEDS: 0.9 % Sodium Chloride Flush 3 ML SYRINGE IVFLUSH ×2 (10:29→16:17)
[2023-12-08] MEDS: Fluticasone Propionate Nasal 16 GM SPRAY 2 SPRAY NOSTRIL-B ×2 (10:29→21:19)
[2023-12-08 10:53] LABS: Glucose, Whole Blood 278 mg/dL (60-115)
[2023-12-08 11:51] LABS: Hematocrit 28.7 % (37.0-47.0); Hemoglobin 8.9 g/dl (12.0-16.0)
[2023-12-08 12:45] LABS: Appearance Urine Cloudy; Color Urine Yellow; Glucose Urine UA 250 mg/dL (Negative); Leukocyte Esterase Urine Moderate (2+) (Negative); Nitrite Urine Negative (Negative); UMIC TRIGGER UA YES; Urine Blood Small (1+) (Negative); Urine Ketones Negative (Negative); Urine Protein 300 (3+) mg/dL (Neg-Trace)
[2023-12-08 12:55] LABS: Bacteria Urine 2+ (None Seen); RBC Urine 0-2 /HPF (0-2); WBC Urine >50 /HPF (0-5)
[2023-12-08 16:10] LABS: Glucose, Whole Blood 138 mg/dL (60-115)
--- NOTE | 2023-12-08 16:58 | P.PNIM_ITS ---
Subjective Subjective Date of Service: 12/08/23 Interval History: follow-up for acute upper GI bleed Review of Systems denies any new bleed or abd pain Physical Exam 2 Vital Signs: Vital Signs: Last Vital Signs Temp 97.4 F 12/08/23 15:16 Pulse 73 12/08/23 15:16 Resp 20 12/08/23 15:16 BP 151/67 H 12/08/23 15:16 Pulse Ox 96 12/08/23 15:16 O2 Del Method Room Air 12/08/23 15:16 BMI result Body Mass Index 35.9 Appearance: Alert.? Oriented X3.?. cvs: rrr, [id number] . res: clear to auscultation ,no rhonchii or wheezing abd: no rebound or guarding ,nt, bs present. ext pulses present , no cyanosis. neuro: axo3 , nonfocal. Objective Data Active Medications Acetaminophen (Acetaminophen 325 Mg Tablet) 650 mg PO Q6H PRN PRN Reason: Pain, Mild (Pain Scale 1-3), fever or headache Amlodipine Besylate (Amlodipine Besylate 5 Mg Tablet) 5 mg PO DAILY [facility]; Protocol Last Admin: 12/08/23 08:40 Dose: 5 mg Documented By: JUSTIN Ascorbic Acid (Ascorbic Acid 500 Mg Tablet) 500 mg PO DAILY [facility] Last Admin: 12/08/23 08:40 Dose: 500 mg Documented By: JUSTIN Bisacodyl (Bisacodyl 10 Mg Supp.Rect) 10 mg [place] DAILY PRN PRN Reason: Constipation Calcium Carbonate (Calcium Carbonate 750 Mg Tab.Chew) 750 mg PO Q4H PRN PRN Reason: Heartburn Ferrous Sulfate (Ferrous Sulfate 324 Mg Tablet.Dr) 324 mg PO DAILY [facility] Last Admin: 12/08/23 08:40 Dose: 324 mg Documented By: JUSTIN Fluticasone Propionate (Fluticasone Propionate Nasal 16 Gm [place]) 2 spray NOSTRIL-B BID [facility] Last Admin: 12/08/23 10:29 Dose: 2 spray Documented By: JUSTIN Glucose (Glucose Gel 15 Gm Gel..Gram.) 15 gm PO Q15M PRN; Protocol PRN Reason: per Hypoglycemia Standing Ord. Ceftriaxone Sodium 1 gm/ (Sodium Chloride) 50 mls @ 100 mls/hr IV 0600 [facility] Last Infusion: 12/08/23 06:26 Dose: Infused Documented By: JOSUE Octreotide Acetate 500 mcg/ (Sodium Chloride) 500 mls @ 50 mls/hr IVCONT .Q10H [facility] Last Admin: 12/08/23 09:42 Dose: 50 mcg/hr, 50 mls/hr Documented By: JUSTIN Dextrose (D10) 250 mls @ 750 mls/hr IV Q15M PRN; Protocol PRN Reason: per Hypoglycemia Standing Ord. Insulin Human Lispro (Insulin Lispro 100 Unit/Ml 3 Ml Vial) 0 unit SUBCUT QIDACHS [facility]; Protocol Last Admin: 12/08/23 12:39 Dose: 6 unit Documented By: JUSTIN Magnesium Hydroxide (Milk Of Magnesia 30 Ml Oral.Susp) 30 ml PO DAILY PRN PRN Reason: Constipation Melatonin (Melatonin 3 Mg Tablet) 6 mg PO BEDTIME PRN PRN Reason: Insomnia Non-Formulary Medication (Linaclotide [Linzess]) 145 mcg PO DAILY [facility] Ondansetron HCl (Ondansetron Hcl 4 Mg/2 Ml Vial) 4 mg IVPUSH Q8H PRN PRN Reason: Nausea and Vomiting Oxycodone HCl (Oxycodone Hcl Immed Release 5 Mg Tablet) 5 mg PO Q6H PRN PRN Reason: Mild to moderate pain Last Admin: 12/08/23 16:15 Dose: 5 mg Documented By: JUSTIN Pantoprazole Sodium (Pantoprazole Sodium 40 Mg/10 Ml Vial) 40 mg IVPUSH BID@0630,1630 [facility] Last Admin: 12/08/23 16:17 Dose: 40 mg Documented By: JUSTIN Polyethylene Glycol (Polyethylene Glycol 3350 17 Gm Powd.Pack) 17 gm PO DAILY PRN PRN Reason: Constipation Senna (Sennosides 8.6 Mg Tablet) 8.6 mg PO BID [facility] Last Admin: 12/08/23 08:40 Dose: 8.6 mg Documented By: JUSTIN Sodium Bicarbonate (Sodium Bicarbonate 650 Mg Tablet) 650 mg PO BID [facility] Last Admin: 12/08/23 08:40 Dose: 650 mg Documented By: JUSTIN Sodium Biphosphate/Sodium Phosphate (Sodium Phosphate,[place]-Dibasic 133 Ml Enema) 118 ml [place] DAILY PRN PRN Reason: Constipation Sodium Chloride (0.9 % Sodium Chloride Flush 3 Ml Syringe) 3 ml IVFLUSH QSHIFT ON [facility] Last Admin: 12/08/23 16:17 Dose: 3 ml Documented By: JUSTIN Sucralfate (Sucralfate 1 Gm Tablet) 1 gm PO BID ON [facility] Last Admin: 12/08/23 08:40 Dose: 1 gm Documented By: JUSTIN Ursodiol (Ursodiol 300 Mg Capsule) 300 mg PO TID ON [facility] Last Admin: 12/08/23 16:22 Dose: 300 mg Documented By: JUSTIN Labs 12/08/23 11:29 12/07/23 23:01 Labs: Laboratory Results - last 24 hr 12/07/23 12/07/23 12/07/23 17:40 19:39 23:01 MCV MCH MCHC RDW Plt Count MPV Immature Gran % (Auto) Neut % (Auto) Lymph % (Auto) [place] % (Auto) Eos % (Auto) Baso % (Auto) Lymph # (Auto) [place] # (Auto) Eos # (Auto) Baso # (Auto) Abs Immat Gran (auto) Absolute Neuts (auto) Absolute Nucleated RBC Nucleated RBC % (auto) Anion Gap 10 L Estim Creat Clear Calc 31.6 Estimated GFR 33 POC Glucose 192 H 257 H Random Glucose 316 H Calcium 8.3 L Urine Color Urine Appearance Urine pH Ur Specific [place] Urine Protein Urine Glucose (UA) Urine Ketones Urine Blood Urine Nitrite Ur Leukocyte Esterase Urine RBC Urine WBC Ur Squamous Epith Cells Urine Bacteria Hyaline Casts 12/07/23 12/08/23 12/08/23 23:02 00:56 01:32 MCV 93.6 MCH 29.6 MCHC 31.7 RDW 17.4 H Plt Count 487 H D MPV 9.1 L Immature Gran % (Auto) 0.6 H Neut % (Auto) 74.5 H Lymph % (Auto) 13.4 L [place] % (Auto) 7.9 Eos % (Auto) 3.2 Baso % (Auto) 0.4 Lymph # (Auto) 1.3 [place] # (Auto) 0.8 Eos # (Auto) 0.3 Baso # (Auto) 0.0 Abs Immat Gran (auto) 0.06 H Absolute Neuts (auto) 7.4 Absolute Nucleated RBC 0.000 Nucleated RBC % (auto) 0.0 Anion Gap Estim Creat Clear Calc Estimated GFR POC Glucose 275 H Random Glucose Calcium Urine Color Yellow Urine Appearance Clear Urine pH 6.5 Ur Specific [place] 1.010 Urine Protein 300 (3+) H Urine Glucose (UA) 250 H Urine Ketones Negative Urine Blood Trace H Urine Nitrite Negative Ur Leukocyte Esterase Moderate (2+) H Urine RBC 0-2 Urine WBC 21-50 H Ur Squamous Epith Cells 0-2 Urine Bacteria None Seen Hyaline Casts 0-2 12/08/23 12/08/23 12/08/23 06:25 06:59 10:49 MCV MCH MCHC RDW Plt Count MPV Immature Gran % (Auto) Neut % (Auto) Lymph % (Auto) [place] % (Auto) Eos % (Auto) Baso % (Auto) Lymph # (Auto) [place] # (Auto) Eos # (Auto) Baso # (Auto) Abs Immat Gran (auto) Absolute Neuts (auto) Absolute Nucleated RBC Nucleated RBC % (auto) Anion Gap Estim Creat Clear Calc Estimated GFR POC Glucose 238 H 228 H 278 H Random Glucose Calcium Urine Color Urine Appearance Urine pH Ur Specific [place] Urine Protein Urine Glucose (UA) Urine Ketones Urine Blood Urine Nitrite Ur Leukocyte Esterase Urine RBC Urine WBC Ur Squamous Epith Cells Urine Bacteria Hyaline Casts 12/08/23 12/08/23 12:15 16:02 MCV MCH MCHC RDW Plt Count MPV Immature Gran % (Auto) Neut % (Auto) Lymph % (Auto) [place] % (Auto) Eos % (Auto) Baso % (Auto) Lymph # (Auto) [place] # (Auto) Eos # (Auto) Baso # (Auto) Abs Immat Gran (auto) Absolute Neuts (auto) Absolute Nucleated RBC Nucleated RBC % (auto) Anion Gap Estim Creat Clear Calc Estimated GFR POC Glucose 138 H Random Glucose Calcium Urine Color Yellow Urine Appearance Cloudy Urine pH 6.0 Ur Specific [place] 1.010 Urine Protein 300 (3+) H Urine Glucose (UA) 250 H Urine Ketones Negative Urine Blood Small (1+) H Urine Nitrite Negative Ur Leukocyte Esterase Moderate (2+) H Urine RBC 0-2 Urine WBC >50 H Ur Squamous Epith Cells 3-5 Urine Bacteria 2+ Hyaline Casts 3-5 Assessment and Plan (1) GI bleed: Status: Acute Assessment and Plan: 72-year-old female with pertinent history of portal hypertensive gastropathy, autoimmune hepatitis/cholangitis with cirrhosis, gastroesophageal reflux disease, insulin-dependent diabetes mellitus, CKD stage 3, history of CVA, hypertension admitted for acute GI bleed Acute GI bleed with acute on chronic anemia due to blood loss(multifactorial) stool occult blood positive s/p egd: mild Gave in antrum/stomach-treated with APC . got 1 prbc ' plan: continue IV octreotide,IV ppi,h/h monitering hold ASA, subcut heparin (was on for postop DVT prophylaxis). Also reports taking ibuprofen 4 x daily h/h stable around 8.9 Left hip hematoma -per ortho normal following procedure, no intervention needed hypertension -resume amlodipine CKD stage 3 -renal function baseline closlely moniter bmp Mood disorder -Continue home mood stabilizers Insulin-dependent diabetes mellitus with hyperglycemia urinary ketone negative -POC glucose, advanced to diabetic diet post EGD continue lantus /Humalog sliding scale Hba1c levels Autoimmune cholangitis-continue ursodiol DVT prophylaxis: Mechanical due to acute GI bleed Full code Ongoing inpatient stay due to acute GI bleed requiring blood transfusions- monitering h/h ,ppi, octerotide ,Gi follow up ,moniter renal function/electrolytyes . Quality Stroke Does the patient have a stroke diagnosis?: No VTE Prior VTE?: No VTE Risk Level:: Medical - moderate - high VTE Device Contraindication: N/A - Device Ordered VTE Drug Contraindication: Treatment Not Indicated
[2023-12-08 18:16] LABS: Glucose, Whole Blood 146 mg/dL (60-115)
[2023-12-08] MEDS: Omeprazole 40 MG CAPSULE.DR PO (18:35)
[2023-12-08 21:10] LABS: Glucose, Whole Blood 176 mg/dL (60-115)
[2023-12-08] MEDS: Insulin Glargine,Hum.rec.anlog 100 UNIT/ML 10 ML VIAL 15 UNIT SUBCUT (21:16)
[2023-12-08] MEDS: Melatonin 3 MG TABLET 6 MG PO (23:12)
[2023-12-09] LABS: Glucose, Whole Blood 98 mg/dL (60-115)
[2023-12-09 04:00] VITALS: BP 146/70; PULSE 68; RESP 20; TEMP 36.4; O2SAT 91
[2023-12-09] MEDS: cefTRIAXone sodium 1 GM in 0.9 % Sodium Chloride 50 ML IV (05:17)
[2023-12-09] MEDS: oxyCODONE HCl Immed Release 5 MG TABLET PO (05:18)
[2023-12-09] MEDS: Omeprazole 40 MG CAPSULE.DR PO (05:18)
[2023-12-09 07:05] LABS: Glucose, Whole Blood 103 mg/dL (60-115)
[2023-12-09 07:21] VITALS: BP 170/66; PULSE 81; RESP 20; TEMP 36.7; O2SAT 93
[2023-12-09] MEDS: amLODIPine Besylate 5 MG TABLET PO (07:46)
[2023-12-09] MEDS: Ferrous Sulfate 324 MG TABLET.DR PO (07:48)
[2023-12-09] MEDS: Sodium Bicarbonate 650 MG TABLET PO (07:48)
[2023-12-09] MEDS: Ascorbic Acid 500 MG TABLET PO (07:48)
[2023-12-09] MEDS: Sennosides 8.6 MG TABLET PO (07:48)
[2023-12-09] MEDS: 0.9 % Sodium Chloride Flush 3 ML SYRINGE IVFLUSH (07:56)
[2023-12-09] MEDS: Acetaminophen 325 MG TABLET 650 MG PO (07:58)
--- NOTE | 2023-12-09 10:25 | MHC.CM.PN ---
Patient has been medically cleared for dc to return to LTC @ [facility] today at 2PM, via [facility]. CM spoke with Daughter/HCP/Sara @ [phone] and informed her of the dc plan. Last IMM addressed on 12/07/2023.
[2023-12-09] MEDS: UrsodioL 300 MG CAPSULE PO (10:28)
[2023-12-09] MEDS: Fluticasone Propionate Nasal 16 GM SPRAY 2 SPRAY NOSTRIL-B (10:28)
[2023-12-09] MEDS: Sucralfate 1 GM TABLET PO (10:29)
[2023-12-09 10:56] LABS: Glucose, Whole Blood 210 mg/dL (60-115)
[2023-12-09 11:09] VITALS: BP 141/64; PULSE 72; RESP 18; TEMP 36.8; O2SAT 95
[2023-12-09] MEDS: Insulin Lispro 100 UNIT/ML 3 ML VIAL SUBCUT (12:28)
--- NOTE | 2023-12-09 13:34 | PM.DS ---
DS: Providers Provider Date of Service: 12/09/23 Date of admission: 12/06/23 03:23 Date of discharge: 12/09/23 Primary care physician: Lo Donato MD Consults: 12/06/23 03:32 Consult to Orthopedics Routine Consulting Provider: [facility] [place] [facility] Reason for consultation: left hip post operative hematoma 12/06/23 05:20 Consult to Gastroenterology Routine Consulting Provider: Efrain Hernandez Reason for consultation: GI bleed Attending physician on discharge: Eloisa Hood Discharging clinician: Eloisa Hood DS: Diagnosis Discharge Diagnosis (1) GI bleed: Status: Acute DS: Summary Hospital Course Hospital Course: 72-year-old female with pertinent history of portal hypertensive gastropathy, autoimmune hepatitis/cholangitis with cirrhosis, gastroesophageal reflux disease, insulin-dependent diabetes mellitus, CKD stage 3, history of CVA, hypertension who was sent to the emergency department for evaluation of black stools. Limited history as patient does not want to talk regarding why she is here. Does endorse hip pain and black stools. States she does not want to talk mood as she is upset that she is in a hospital. Does have a history of GI bleeds. Endorses malaise and fatigability. No nausea, vomiting, hematemesis. In the emergency department, imaging concerning for left hip postoperative hematoma. Stool Hemoccult noted to be positive and patient found to be anemic. hospital course: Patient came to the hospital because of acute blood loss anemia which seems to be multifactorial: Possible GI bleed secondary to gave, also had left hip hematoma, patient was taking aspirin, subQ heparin,ibuprofen: Patient initial H&H was 7.5/23.8 ,fobt positive -started on IV octreotide, ppi, received 1 PRBC, H&H monitoring , also aspirin, subQ heparin,ibuprofen on hold. Patient seen by GI and had EGD done-found to have mild Gave in antrum/stomach-treated with APC . H&H as above is in 8.9 range. GI recommended to continue PPI and p.o. iron, repeat EGD in 1 year, and follow-up outpatient with GI-4 anemia and autoimmune cholangitis. Patient had hip hematoma: Denies any new complaints, moving all extremities. Patient will be going to the rehab. Plan: discussed with GI Please start aspirin and subQ heparin in3 days Monitor CBC in q weekly for 2 weeks . GI follow-up. Follow-up with ortho outpatient Above management discussed with the patient and her daughter in detail length-assessment plan coordination time spent 40 minute. Time Attestation Total time managing care of this patient today: 40 mintues. Discharge Coordination Time (in mins): 40 min Quality: Safe Use of Opioids Does Pt have an Active Cancer Diagnosis on the Problem List?: No Quality: Stroke Does the patient have a stroke diagnosis?: No Physical Exam Vital Signs: Vital Signs: Last Vital Signs Temp 98.2 F 12/09/23 11:09 Pulse 72 12/09/23 11:09 Resp 18 12/09/23 11:09 BP 141/64 H 12/09/23 11:09 Pulse Ox 95 12/09/23 11:09 O2 Del Method Room Air 12/09/23 11:09 O2 Flow Rate 5 12/09/23 04:00 BMI result Body Mass Index 35.9 Appearance: Alert.? Oriented X3.?. cvs: rrr, [id number] . res: clear to auscultation ,no rhonchii or wheezing abd: no rebound or guarding ,nt, bs present. ext pulses present , no cyanosis. left hip area -seems no erythema or pain or erythema neuro: axo3 , nonfocal. DS: Data Data Completed and Pending Completed studies during hospitalization [Text1]: Procedures Control Bleeding in Gastrointestinal Tract, Via Natural or Artificial Opening Endoscopic (06/10/23) Destruction of Stomach, Pylorus, Via Natural or Artificial Opening Endoscopic (06/10/23) Drainage of Esophagus, Via Natural or Artificial Opening Endoscopic, Diagnostic (12/29/22) Excision of Large Intestine, Via Natural or Artificial Opening Endoscopic, Diagnostic (04/05/21) Excision of Stomach, Pylorus, Via Natural or Artificial Opening Endoscopic, Diagnostic (06/10/23) Transfusion of Nonautologous Red Blood Cells into Peripheral Vein, Percutaneous Approach (06/10/23) Labs on day of discharge: Laboratory Results - last 24 hr 12/08/23 12/08/23 12/08/23 16:02 18:13 21:06 POC Glucose 138 H 146 H 176 H 12/08/23 12/09/23 12/09/23 23:56 06:59 10:53 POC Glucose 98 103 210 H Imaging Chest x-ray: Radiologist's impression: ITS Impressions Abdomen/Pelvis CT 12/06/23 01:00 IMPRESSION: 1. Partially visualized ORIF hardware in the left hip traversing a comminuted intertrochanteric fracture. Overlying soft tissue stranding and soft tissue gas are present. More confluent regions of soft tissue attenuation lateral to the left hip are suspicious for postoperative hematomas as noted above. 2. Mural prominence of the relatively collapsed ascending colon, of uncertain clinical significance. In the setting of cirrhosis this could reflect portal colopathy, though an infectious/inflammatory colitis could also have this appearance in the proper clinical setting. 3. Trace perihepatic fluid. 4. Trace left pleural effusion. Discharge Plan Discharge Patient Disposition: [facility] Discharge Diagnosis: Acute GI bleed with acute on chronic anemia due to blood loss Referrals: Angela Dahl Douglas [Outside] - 1 Week Malik Shepard MD [Physician] - 1 Week Physician,Alexys Heck [Physician] - 1 Week Discharge Medications: Continued (DME) blood sugar diagnostic Strip See Rx Instructions .ROUTE .MEDSUPPLY Qty: 150 11RF Rx Instructions: As directed four times a day (DME) FreeStyle Fatmata 2 Sensor Kit See Rx Instructions .ROUTE .MEDSUPPLY Qty: 2 5RF Rx Instructions: As directed every 2 weeks ursodiol 500 mg tablet 500 mg PO BID 90 Days Qty: 180 3RF insulin glargine [Lantus U-100 Insulin] 100 unit/mL solution 15 unit subcut BEDTIME insulin lispro [Humalog U-100 Insulin] 100 unit/mL solution 1 sliding scale dose subcut QIDACHS Protocol: Insulin Correction Scale Less than or equal to 110 ---- Give (units): 0 111 to 150 Give (units): 0 151 to 200 Give (units): 2 201 to 250 Give (units): 4 251 to 300 Give (units): 6 301 to 350 Give (units): 8 Greater than 350 Give (units): 10 Call MD if Blood Glucose > : 350 fluticasone propionate 50 mcg/actuation [place],Suspension 2 spray INTRANASAL BID Rx Instructions: administer into each nostril ascorbate calcium (vitamin C) 500 mg tablet 500 mg PO DAILY Qty: 30 0RF ferrous sulfate [Feosol] 325 mg (65 mg iron) tablet 325 mg PO DAILY Qty: 30 0RF sennosides [senna] 8.6 mg Tablet 8.6 mg PO BID melatonin 3 mg Tablet 3 mg PO BEDTIME amlodipine 5 mg tablet 5 mg PO DAILY magnesium hydroxide [Milk of Magnesia] 400 mg/5 mL Suspension 30 ml PO DAILY PRN (Reason: Constipation) sodium bicarbonate 650 mg Tablet 650 mg PO BID bisacodyl 10 mg Suppository 10 mg TN DAILY PRN (Reason: Constipation) Fleet Enema 19-7 gram/118 mL Enema 118 ml TN DAILY PRN (Reason: Constipation) polyethylene glycol 3350 [Miralax] 17 gram/dose Powder 17 g PO DAILY PRN (Reason: Constipation) oxycodone 5 mg Tablet 5 mg PO Q6H PRN (Reason: Mild to moderate pain) Januvia 50 mg Tablet 50 mg PO DAILY sucralfate 1 gram tablet 1 g PO BID Linzess 145 mcg capsule 145 mcg PO DAILY (DME) FreeStyle Fatmata 2 [facility] [place] See Rx Instructions .ROUTE .MEDSUPPLY Qty: 1 0RF Rx Instructions: As directed Changed pantoprazole 40 mg tablet,delayed release (DR/EC) 40 mg PO BID Qty: 1 0RF Held aspirin 81 mg Tablet,Chewable 81 mg PO DAILY Hold Instructions: Resume on 12/13/23. heparin (porcine) 5,000 unit/mL Solution 5,000 unit subcut Q8H Hold Instructions: Resume on 12/13/23. Rx Instructions: Start 12/05/23 End 12/24/23 Discharge Orders: Discharge Order (Routine); Ordered 12/09/23 Ordered By: Eloisa Hood Diet: Advance to usual diet Activity on Discharge: As tolerated Stand Alone Forms: Patient Portal Discharge page Print Language: Cymro Care Plan Goals: Patient came to the hospital because of acute blood loss anemia which seems to be multifactorial: Possible GI bleed secondary to gave, also had left hip hematoma, patient was taking aspirin, subQ heparin,ibuprofen: Patient initial H&H was 7.5/23.8 -started on IV octreotide, ppi, received 1 PRBC, H&H monitoring , also aspirin, subQ heparin,ibuprofen on hold. Patient seen by GI and had EGD done-found to have mild Gave in antrum/stomach-treated with APC . H&H as above is in 8.9 range. GI recommended to continue PPI and p.o. iron, repeat EGD in 1 year, and follow-up outpatient with GI-4 anemia and autoimmune cholangitis. Patient had hip hematoma: Denies any new complaints, moving all extremities. Patient will be going to the rehab. Plan: Please start aspirin and subQ heparin in3 days Monitor CBC in q weekly for 2 weeks . GI follow-up. Follow-up with ortho outpatient Health Concerns: As above. Plan of Treatment: As above. Assessment: As above.
== END 2023-12-09 15:00 | DRG 377 ==
LOC: HO.ED 12-06 01:56 → HO.EDOVER 12-06 03:27 → HO.IMC 12-06 16:22
PROVIDERS: Internal Medicine Gastroenterology; Physician Assistant; Admitting Provider Student in an Organized Health Care Education/Training Program; Emergency Provider Emergency Medicine; PCP General Practice; Visit Provider Internal Medicine
PROC: 0D578ZZ Destruction of Stomach, Pylorus, Via Natural or Artificial Opening Endoscopic (ICD-10-PCS; principal; 2023-12-07 14:30)
DX: K31.811 Angiodysplasia of stomach and duodenum with bleeding (principal); I85.11 Secondary esophageal varices with bleeding; D62 Acute posthemorrhagic anemia; N18.30 Chronic kidney disease, stage 3 unspecified; L76.32 Postprocedural hematoma of skin and subcutaneous tissue following other procedure; K21.9 Gastro-esophageal reflux disease without esophagitis; K74.60 Unspecified cirrhosis of liver; D63.1 Anemia in chronic kidney disease; E11.65 Type 2 diabetes mellitus with hyperglycemia; E11.22 Type 2 diabetes mellitus with diabetic chronic kidney disease; Z86.73 Personal history of transient ischemic attack (TIA), and cerebral infarction without residual deficits; I12.9 Hypertensive chronic kidney disease with stage 1 through stage 4 chronic kidney disease, or unspecified chronic kidney disease; F39 Unspecified mood [affective] disorder; K74.3 Primary biliary cirrhosis; Z79.1 Long term (current) use of non-steroidal anti-inflammatories (NSAID); Z79.4 Long term (current) use of insulin; Z79.51 Long term (current) use of inhaled steroids; Z79.82 Long term (current) use of aspirin; Z79.899 Other long term (current) drug therapy
CPT/HCPCS: 36415; 74176; 80048; 80076; 81001; 82272; 82947; 83690; 85014; 85018; 85025; 85027; 86850; 86900; 86901; 86923; 87086; 99285; J0696; J2060; J2354; J2470; J2704; J7120; P9016

== ENCOUNTER → 2023-12-06 03:23 | Outpatient (BNV) | payer MEDICARE, MEDICAID, SELFPAY | PROVIDERS: Admitting Provider Student in an Organized Health Care Education/Training Program; Emergency Provider Emergency Medicine; Visit Provider Student in an Organized Health Care Education/Training Program | DX: K92.2 Gastrointestinal hemorrhage, unspecified (principal); D62 Acute posthemorrhagic anemia | CPT/HCPCS: 99223; 99232; 99239; 99499 ==

== ENCOUNTER → 2023-12-06 03:23 | Outpatient (BNV) | payer MEDICARE, MEDICAID, SELFPAY | PROVIDERS: Admitting Provider Student in an Organized Health Care Education/Training Program; Emergency Provider Emergency Medicine; PCP General Practice; Visit Provider Internal Medicine Gastroenterology | DX: K31.819 Angiodysplasia of stomach and duodenum without bleeding (principal); K92.2 Gastrointestinal hemorrhage, unspecified | CPT/HCPCS: 43270 ==

== ENCOUNTER 2024-02-22 08:30 | Outpatient (AMB) | payer OTHER, SELFPAY ==
--- NOTE | 2024-02-22 08:58 | MHC.OFFVIS ---
Intake Visit Reasons: bladder prolapse?/mixed incontinence Intake Note: Patient is present for BLADDER PROLAPES?/ MIXED INCONTINENCE Urology Medication:NONE Antibiotic Allergy:NONE Blood Thinner:ASPIRIN TODAY'S PVR:188 ML'S Tape Edge Machine Operator Required: Yes Tape Edge Machine Operator Services: Tape Edge Machine Operator Present Tape Edge Machine Operator Name: [id number] Information Interpreted: non-clinical & clinical Allergies No Known Allergies [No Known Allergies*] Allergy (Verified 02/22/24 09:00) HPI Comments Details: Hannah is a 73 year old female who presents from a [facility] for reported prolapse. The patient is not able to pivot onto the exam table for pelvic exam. Bladder scan PVR 188 mL. Recommend diaper changes every 2 hours. See written consult note PFSH Medical History Anemia Uncontrolled type 2 diabetes mellitus with hypoglycemia Chronic constipation Iron deficiency anemia Autoimmune cholangitis CHF (congestive heart failure) Renal failure (ARF), acute on chronic Autoimmune hepatitis CVA (cerebral vascular accident) Normocytic anemia CKD (chronic kidney disease) Fecal occult blood test positive Anemia Pancreatic cyst GERD (gastroesophageal reflux disease) Pancreatitis Depression Hypertriglyceridemia Vitamin D deficiency Constipated Type 2 diabetes mellitus with hyperglycemia Type 2 diabetes mellitus with chronic kidney disease Essential hypertension Hyperlipidemia LDL goal <100 Obesity (BMI 30-39.9) Diabetes mellitus with hyperglycemia Surgical History History of esophagogastroduodenoscopy (EGD) Hx of heart bypass surgery History of appendectomy Hx of colonoscopy Hx of cholecystectomy Family History Father No problems noted. 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 Do you presently have visiting nurse or other home services: No Unable to assess alcohol history related to: Unable to respond Alcohol intake: never Patient Tobacco Use Status: Never used Tobacco Advance Directives Date on File: 02/06/21 service: No Current occupational status: disabled Review of Systems Const All systems reviewed & are unremarkable except as noted in HPI and below Reports no additional complaints Eyes Reports no additional complaints ENT Reports no additional complaints Card Reports no additional complaints Resp Reports no additional complaints GI Reports no additional complaints Reports as per HPI Musc Reports no additional complaints Skin/Breast Reports system reviewed and no additional complaints, except as documented Neuro Reports no additional complaints Psych Reports no additional complaints Endo Reports no additional complaints Filiberto/Lymph Reports no additional complaints Aller/Immun Reports no additional complaints Physical Exam Const General: cooperative, healthy appearing and no acute distress Orientation/consciousness: patient oriented x3 HEENT Head: Yes normal to inspection, Yes normocephalic and Yes atraumatic Eyes Conjunctivae: conjunctivae normal Neck Neck: Yes normal visual inspection and Yes trachea midline Chest Chest palpation & inspection: normal inspection of the chest Resp Effort & Inspection: normal respiratory effort Cardio Rate: regular rate GI Inspection: Yes normal to inspection Palpation (GI): Soft to palpation Neuro General: patient oriented x3 Psych Appearance: grossly normal Office Procedures Post Void Residual Post Residual Void Post Void Residual (PVR): 188 [id number] Void Residual by ultrasound Assessment & Plan Assessment & Plan (1) Obesity (BMI 30-39.9): Code(s): E66.9 - Obesity, unspecified Category: Medical (2) Urinary incontinence: Code(s): R32 - Unspecified urinary incontinence Category: Medical Plan Diaper changes every 2 hours. see written consult sheet. Coding Level of Care Code New Pt Level 4 (25867) Diagnoses Obesity (BMI 30-39.9) E66.9 Urinary incontinence R32 CPT Codes Post Residual Void - PVR CPT Code: 69565-Gyde Void Residual by ultrasound ([id number])
== END 2024-02-22 10:03 | disposition home or self-care (01) ==
PROVIDERS: PCP General Practice; Visit Provider Urology
DX: E66.9 Obesity, unspecified (principal); R32 Unspecified urinary incontinence
CPT/HCPCS: 99204

== ENCOUNTER → 2024-02-22 08:30 | Outpatient (BNVA) | payer OTHER, SELFPAY | PROVIDERS: PCP General Practice; Visit Provider Urology | DX: N39.46 Mixed incontinence (principal); E66.9 Obesity, unspecified | CPT/HCPCS: 51798; 99202 ==

== ENCOUNTER 2024-07-01 14:40 | Outpatient (REF) | payer MEDICARE, MEDICAID, SELFPAY ==
[2024-07-01 16:11] LABS: MANUAL DIFF FLAG NO
[2024-07-01 16:20] LABS: Basophils Percent Auto 0.4 % (0-2); Eosinophils Absolute Auto 0.2 X10*3/uL (0.0-0.4); Eosinophils Percent Auto 2.1 % (0-4); Hematocrit 39.3 % (37.0-47.0); Hemoglobin 12.5 g/dl (12.0-16.0); Imm Gran Abs Auto 0.02 X10*3/uL (0.00-0.03); Imm Gran Pct Auto 0.2 % (0.0-0.4); Lymphocytes Absolute Auto 1.4 X10*3/uL (1.2-4.9); Lymphocytes Percent Auto 17.2 % (20-40); Mean Corpuscular HGB Conc 31.8 g/dl (31.0-35.0); Mean Corpuscular Hemoglobin 28.3 pg (27.0-33.0); Mean Corpuscular Volume 89.1 fL (80.0-98.0); Mean Platelet Volume 11.8 fL (9.4-12.3); Monocytes Absolute Auto 0.4 X10*3/uL (0.1-1.2); Neutrophils Absolute Auto 6.2 x10*3/uL (2.0-8.3); Neutrophils Percent Auto 75.1 % (45-73); Platelet Count 217 X10*3/uL (160-400); Red Blood Count 4.41 X10*6/uL (4.20-5.50); Red Cell Distribution Width 13.7 % (11.0-16.0); White Blood Count 8.3 X10*3/uL (4.8-10.8)
[2024-07-01 16:30] LABS: Anion Gap 11 (12-20); Blood Urea Nitrogen 21 mg/dL (9-16); Calcium 9.4 mg/dL (8.4-10.2); Carbon Dioxide 27 mmol/L (22-29); Chloride 108 mmol/L (96-108); Estimated Glomerular Filt Rate 35; Glucose Random 207 mg/dL (60-115); Potassium 3.8 mmol/L (3.3-5.1); Sodium 142 mmol/L (135-145)
--- OUTSIDE RECORDS SUMMARY | 2024-07-01 16:49 | XMS_ITS | Encounter Summary ---
Author Organization [employer] Address [address] [facility] [address] [place] [address] Care Team Providers Care Towel Inspector Name Role Phone Lo Donato MD Primary Care Provider [phone] Reason for Visit * Reason Onset Date Comments Care Coordination 05/06/2024 Encounter Details Date Type Department Care Team (Late st Contact Info) Description 05/06/2024 Telephone [facility] [address] [place], [place] [phone] Lo Donato MD [address] [place], [place] [phone] Care Coordination Social History Tobacco Use Types Packs/Day Years Used Date Smoking Tobacco: Never Smokeless Tobacco: Never Alcohol Use Standard Drinks/Week Comments Never 0 (1 standard drink = 0.6 oz pur e alcohol) Alcohol Answer Date Recorded Frequency of Alcohol Consumption Not on file 09/25/2023 Average Number of Drinks Not on file 024 Frequency of Binge Drinking Not on file 09/02 Score 0 09/25/2023 Depression Answer Date Recorded Patient Health Questionnaire-9 Score 0 09/25/2023 Patient Health Questionnaire-9 Score 0 09/25/2023 Last PHQ-9: Questionnaire Data Not on file 0 09/25/2023 Housing Stability Answer Date Recorded What is your housing situation today? I have tiffanie lackey 02/18/[address] you li ve. Do you have problems with any of the following? None of the above 02/18/2023 Food Insecurity Answer Date Recorded Within the past 12 months, y ou worried that your food would run out before you got money to buy more: Never True 02/18/2023 Within the past 12 months,th e food you bought just didn't last and you didn't have enough money to get more: Never True Transportation Answer Date Recorded In the past 12 months, has l ack of transportation kept you from medical appts, meetings, work or from getting things needed for daily living? No 02/18/2023 Utilities Answer Date Recorded In the past 12 months, has t he electric, gas, oil or water company threatened to shut off services in your home? No 02/18/2023 Depression Answer Date Recorded Patient Health Questionnaire-2 Score 0 09/25/2023 Comments Unknown Sex and Gender Information Value Date Recorded Sex Assigned at Female 03/03/2022 10:34 AM EDT Legal Sex Female 10:34 AM EDT Gender Identity Female 03/03/2022 10:34 AM EDT Sexual Orientation Straight 03/03/2022 10 :34 AM EDT documented as of this encounter Miscellaneous Notes * Telephone Encounter - Katie Burch - 05/06/2024 3:14 PM EST Tc from Gabi ABEL requesting a HDF appt. Hospital: [facility] Date of admission: 04/25/24 Discharge date: 05/02/24 Diagnosed: Dementia, Diabetes *Send message to [facility] Clinical Care Coordinators documented in this encounter Plan of Treatment Upcoming Encounters Date Type Department Care Team (Late st Contact Info) Description 09/28/2024 3:15 PM EDT Office Visit [facility] [address] [place] [address] Lo Donato MD [address] [place] [address] documented as of this encounter Visit Diagnoses Not on filedocumented in this encounter Additional Health Concerns Assessment Noted Time PHQ-9 Depression Total Score: 0 09/25/19 24 11:56 AM EDT documented as of this encounter Care Teams Towel Inspector Relationship Specialty Start Date End Date Lo Donato MD [address] [place] [address] PCP - General Family Medicine 04/25/22 [facility] [place] 03/17/24 documented as of this encounter
--- OUTSIDE RECORDS SUMMARY | 2024-07-01 16:49 | XMS_ITS | Encounter Summary ---
Author Organization [employer] Address [address] [facility] [address] [place] [address] Care Team Providers Care Corrective And Manual Arts Therapist Name Role Phone Lo Donato MD Primary Care Provider [phone] Reason for Visit * Reason Onset Date Comments Med Refill 06/17/2024 Encounter Details Date Type Department Care Team (Late st Contact Info) Description 06/17/2024 Refill [facility] [address] [place], [place] [phone] Lo Donato MD [address] [place], [place] [phone] Social History Tobacco Use Types Packs/Day Years [...] encounter Miscellaneous Notes * Telephone Encounter - Kanchan Paredes LPN - 06/17/2024 9:00 AM EST Please review unclear if PCP prescribes? Last seen 12/18/23. * Telephone Encounter - Katie Burch - 06/17/2024 8:46 AM EST TC from pt requesting medication refill. Medications needing refill : Januvia 50 MG tablet To be sent to: [facility]/pharmacy #[id number] [place] [address] documented in this encounter Plan of Treatment Upcoming Encounters Date Type Department Care Team (Late st Contact Info) Description 09/28/2024 3:15 PM EDT Office Visit [facility] [address] [place] [address] Lo Donato MD [address] [place] [address] documented as of this encounter Visit Diagnoses Not on filedocumented in this encounter Additional Health Concerns Assessment Noted Time PHQ-9 Depression Total Score: 0 09/25/19 11:56 AM EDT documented as of this encounter Care Teams Corrective And Manual Arts Therapist Relationship Specialty Start Date End Date Lo Donato MD [address] [place] [address] PCP - General Family Medicine 04/25/22 [facility] 03/17/24 documented as of this encounter
--- OUTSIDE RECORDS SUMMARY | 2024-07-01 16:49 | XMS_ITS | Encounter Summary ---
Author Organization [employer] Address [address] [facility] [address] [place] [address] Care Team Providers Care Crabbing Machine Operator Name Role Phone Lo Donato MD Primary Care Provider [phone] Reason for Visit * Reason Onset Date Comments PT-1 06/27/2024 Encounter Details Date Type Department Care Team (Late st Contact Info) Description 06/27/[address] [facility] [address] [place], [place] [phone] Lo Donato MD [address] [place], [place] [phone] PT-1 (/) Social History Tobacco Use Types Packs/Day Years [...] encounter Miscellaneous Notes * Telephone Encounter - Daniel Jiménez - 06/27/2024 12:23 PM EST Patient calling requesting PT1 Home Address verified: Y/N: Yes Provider name or facility name: [address] [place] [address], [facility] Escort needed: Y/N: Yes Do you have a wheelchair: Y/N: Yes If yes- Manual or electric: Manual Visits: (2 x Monthly) documented in this encounter Plan of Treatment Upcoming Encounters Date Type Department Care Team (Late st Contact Info) Description 09/28/2024 3:15 PM EDT Office Visit [facility] [address] [place] [address] Lo Donato MD [address] [place] [address] documented as of this encounter Visit Diagnoses Not on filedocumented in this encounter Additional Health Concerns Assessment Noted Time PHQ-9 Depression Total Score: 0 09/25/19 11:56 AM EDT documented as of this encounter Care Teams Crabbing Machine Operator Relationship Specialty Start Date End Date Lo Donato MD [address] [place] [id number] PCP - General Family Medicine 04/25/22 [facility] 03/17/24 documented as of this encounter
--- OUTSIDE RECORDS SUMMARY | 2024-07-01 16:49 | XMS_ITS | Encounter Summary ---
Author Organization [employer] Address [address] [facility] [address] [place] [address] Care Team Providers Care Retail Planning Manager Name Role Phone Lo Donato MD Primary Care Provider [phone] Reason for Visit * Reason Onset Date Comments Medication Question 06/17/2024 Encounter Details Date Type Department Care Team ([facility] st Contact Info) Description 06/17/2024 Refill [facility] [address] [place], [place] [phone] Lo Donato MD [address] [place], [place] [phone] Social History Tobacco Use Types Packs/Day Years [...] encounter Miscellaneous Notes * Telephone Encounter - Hortensia Garrison RN - 06/17/2024 9:25 AM EST TC placed to patient [phone], spoke to daughter Sara to inform PCP will send seroquel to the pharmacy as requested. Sara verbalized understanding. Sara did not have any further questions/concerns. Sara to f/u PRN. * Telephone Encounter - Katie Burch - 06/17/2024 8:50 AM EST Tc from pt daughter regarding medications. Sara requested script for sertraline HCI, Zoloft Oral Tablet 25 MG, med. was prescribed at [facility], also requested glucose test strips. ([facility] Discharge documents 05/11/24) Any questions contact Sara [phone] documented in this encounter Plan of Treatment Upcoming Encounters Date Type Department Care Team (Late st Contact Info) Description 09/28/2024 3:15 PM EDT Office Visit [facility] [address] [place] [address] Lo Donato MD [address] [place], [place] [phone] documented as of this encounter Visit Diagnoses Not on filedocumented in this encounter Additional Health Concerns Assessment Noted Time PHQ-9 Depression Total Score: 0 09/25/19 24 11:56 AM EDT documented as of this encounter Care Teams Retail Planning Manager Relationship Specialty Start Date End Date Lo Donato MD [address] [place] [address] PCP - General Family Medicine 04/25/22 [facility] 03/17/24 documented as of this encounter
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
--- OUTSIDE RECORDS SUMMARY | 2024-07-01 16:50 | XMS_ITS | Encounter Summary ---
Author Organization [employer] Address [address] [facility] [address] [place] [address] Care Team Providers Care Accountant Bookkeeper Name Role Phone Lo Donato MD Primary Care Provider Reason for Visit * Reason Onset Date Comments Med Refill 06/22/2024 Encounter Details Date Type Department Care Team (Late st Contact Info) Description 06/22/2024 Refill [facility] MEDICINE [address] [place], [place] [phone] Lo Donato MD [address] [place], [place] [phone] Type 2 diabetes mellitus with hyperglycemia, with long-term current use of insulin ([facility]) (Primary Dx) Social History Tobacco Use Types Packs/Day Years [...] * Telephone Encounter - Katie Burch - 06/22/2024 11:11 AM EST TC from pt requesting medication refill. Medications needing refill : Blood Glucose Monitoring Suppl (ONE TOUCH ULTRA 2) w/Device kit To be sent to: [facility]/pharmacy #[id number] documented in this encounter Plan of Treatment Upcoming Encounters Date Type Department Care Team ([facility] st Contact Info) Description 09/28/2024 3:15 PM EDT Office Visit [facility] MEDICINE [address] [place] [address] Lo Donato MD [address] [place] [address] documented as of this encounter Visit Diagnoses Diagnosis Type 2 diabetes mellitus with hyperglycemia, with long-term current use of insulin ([facility])- Primary documented in this encounter Additional Health Concerns Assessment Noted Time PHQ-9 Depression Total Score: 0 09/25/19 11:56 AM EDT documented as of this encounter Care Teams Accountant Bookkeeper Relationship Specialty Start Date End Date Lo Donato MD [address] [place] [address] PCP - General Family Medicine 04/25/22 [facility] 03/17/24 documented as of this encounter
--- OUTSIDE RECORDS SUMMARY | 2024-07-01 16:50 | XMS_ITS | Encounter Summary ---
Author Organization [employer] Address [address] [facility] [address] [place] [address] Care Team Providers Care Cash Management Officer Name Role Phone Lo Donato MD Primary Care Provider [phone] Reason for Visit * Reason Onset Date Comments Medication Question 06/27/2024 Durable Medical Equipment 06/27/2024 Tc fro m Gabi ahumada [facility] Nurse requesting a Glucometer for the Pt due to her old one being broken.And Gabi would like a call back to Discuss pt medication.Contact Gabi at [phone] Encounter Details Date Type Department Care Team ([facility] st Contact Info) Description 06/27/2024 Telephone [facility] MEDICINE [address] [place], [place] [phone] Lo Donato MD [address] [place], [place] [phone] Medication Question; Durable Medical Equipment (Tc from Gabi ahumada [facility] Nurse requesting a Glucometer for the Pt due to her old one being broken./And Gabi would like a call back to Discuss pt medication./Contact Gabi at [phone]/) Social History Tobacco Use Types Packs/Day Years [...] encounter Miscellaneous Notes * Telephone Encounter - Bernadette Abrams RN - 06/27/2024 3:04 PM EST 1545: TC to Gabi FLEMING @ [phone] to clarify information. Pt was getting Rx's from [facility] prior to today. Pharmacy being used at this time is confirmed to be [facility] Glucometer Rx was sent by PCP on 06/22/24 This assembly instructions writer called [facility] to confirm receipt of Rx's. [facility] confirms they do have the glucometer filled. They state they require a P.A. for the Lispro SS Pen Rx They do not have an Rx for Trazodone. D/W Kalani re: P.A. process: she stated once an [facility] provider sends the Lispro Rx, a P.A. will be initiated. Requests for Lispro and Trazodone will be sent to PCP with updated information. Dosages were confirmed with [place]: >traZODone HCl (tablet) Desyrel 50 MG Take 12.5 mg by mouth 2 times daily. >Insulin Lispro (solution pen-injector) HumaLOG 100 UNIT/ML Inject three times a day per sliding scale; 150-199 mg/dl, 2 units; 200-249 mg/dl, 4 units; 250-299, 6 units; 300-349, 8 units; 350-399. 10 units; 400-449, 12 units and >400 or <70 mg/dl, call MD 1505 Per pharmacy pt's insurance will cover: Freestyle Lite glucometer. Request for Rx will be sent to PCP (previously done by ) TC to [facility] nurse Gabi @ [phone] re: request for Rx refills Per Gabi, refills are needed fro: Trazodone Tylenol Lispro pen Request for refills will be submitted. Information cued to PCP * Telephone Encounter - Daniel Jiménez - 06/27/2024 12:29 PM EST Tc from Gabi a [facility] Nurse requesting a Glucometer for the Pt due to her old one being broken. And Gabi would like a call back to Discuss pt medication. Contact Gabi at [phone] documented in this encounter Plan of Treatment Upcoming Encounters Date Type Department Care Team (Late st Contact Info) Description 09/28/2024 3:15 PM EDT Office Visit [facility] MEDICINE [address] [place] [address] Lo Donato MD [address] [place] [address] documented as of this encounter Visit Diagnoses Not on filedocumented in this encounter Additional Health Concerns Assessment Noted Time PHQ-9 Depression Total Score: 0 09/25/19 11:56 AM EDT documented as of this encounter Care Teams Cash Management Officer Relationship Specialty Start Date End Date Lo Donato MD [address] [place] [address] PCP - General Family Medicine 04/25/22 [facility] 03/17/24 documented as of this encounter
--- OUTSIDE RECORDS SUMMARY | 2024-07-01 16:50 | XMS_ITS | Encounter Summary ---
Author Organization [employer] Address [address] [facility] [address] [place] [address] Care Team Providers Care Sales Financial Analyst Name Role Phone Lo Donato MD Primary Care Provider [phone] Reason for Visit * Reason Onset Date Comments Durable Medical Equipment 07/10/2023 Encounter Details Date Type Department Care Team (Late st Contact Info) Description 07/10/2023 Telephone [facility] MEDICINE [address] [place], [place] [phone] Lo Donato MD 230 [place], [place] [phone] Durable Medical Equipment Social History Tobacco Use Types Packs/Day Years Used Date Smoking Tobacco: Never Smokeless Tobacco: Never Alcohol Use Standard Drinks/Week Comments Never 0 (1 standard drink = 0.6 oz pur e alcohol) Depression Answer Date Recorded Patient Health Questionnaire-9 Score 11 01/21/2023 Housing Stability Answer Date Recorded What is your housing situation today? I have tiffaniejuanita lackey 02/18/[address] you [...] Answer Date Recorded Patient Health Questionnaire-2 Score 3 01/21/2023 Comments Unknown Sex and Gender Information Value Date Recorded Sex Assigned at Female 03/03/2022 10:34 AM EDT Legal Sex Female 10:34 AM EDT Gender Identity Female 03/03/2022 10:34 AM EDT Sexual Orientation Straight 03/03/2022 10 :34 AM EDT documented as of this encounter Miscellaneous Notes * Telephone Encounter - Meenakshi Quinteros - 07/10/2023 4:10 PM EST Tc from [facility] with jocy requesting a transport wheelchair due to weakness to be sent to [facility]. ICD code- R53.1 documented in this encounter Plan of Treatment Upcoming Encounters Date Type Department Care Team (Late st Contact Info) Description 09/28/2024 3:15 PM EDT Office Visit [facility] MEDICINE [address] [place] [address] Lo Donato MD [address] [place] [address] documented as of this encounter Visit Diagnoses Not on filedocumented in this encounter Additional Health Concerns Assessment Noted Time PHQ-9 Depression Total Score: 11 023 10:00 AM EDT documented as of this encounter Care Teams Sales Financial Analyst Relationship Specialty Start Date End Date Lo Donato MD [address] [place] [address] PCP - General Family Medicine 04/25/22 [facility] 03/17/24 documented as of this encounter
--- OUTSIDE RECORDS SUMMARY | 2024-07-01 16:50 | XMS_ITS | Encounter Summary ---
Author Organization [employer] Address [address] [facility] 7t [place] [address] Care Team Providers Care Leather Goods Assembler Name Role Phone Lo Donato MD Primary Care Provider [phone] Reason for Visit * Reason Comments Med Change Request Encounter Details Date Type Department Care Team (Late st Contact Info) Description 07/01/[address] [facility] MEDICINE [address] [place], [place] [phone] [facility] 230 [place], [place] [phone] Urinary incontinence due to cognitive impairment Social History Tobacco Use Types Packs/Day Years [...] AM EDT documented as of this encounter Plan of Treatment Upcoming Encounters Date Type Department Care Team (Late st Contact Info) Description 09/28/2024 3:15 PM EDT Office Visit [facility] MEDICINE [address] [place] [address] Lo Donato MD [address] [place] [address] documented as of this encounter Visit Diagnoses Diagnosis Urinary incontinence due to cognitive impairment Functional urinary incontinence documented in this encounter Additional Health Concerns Assessment Noted Time PHQ-9 Depression Total Score: 0 09/25/19 24 11:56 AM EDT documented as of this encounter Care Teams Leather Goods Assembler Relationship Specialty Start Date End Date Lo Donato MD [address] [place] [address] PCP - General Family Medicine 04/25/22 [facility] 03/17/24 documented as of this encounter
--- OUTSIDE RECORDS SUMMARY | 2024-07-01 16:50 | XMS_ITS | Encounter Summary ---
Author Organization [employer] Address [address] [facility] [address] [place] [address] Care Team Providers Care Food Products Sales Representative Name Role Phone Lo Donato MD Primary Care Provider [phone] Reason for Visit * Reason Onset Date Comments verbal order 06/28/2024 Encounter Details Date Type Department Care Team ([facility] st Contact Info) Description 06/28/2024 Telephone [facility] MEDICINE [address] [place], [place] [phone] Lo Donato MD 230 [place], [place] [phone] verbal order Social History Tobacco Use Types Packs/Day Years [...] Telephone Encounter - Hortensia Garrison RN - 06/28/2024 2:24 PM EST TC returned to [facility] [phone] in regards to below message. RN provided verbal orders for PT 2x/week x6 weeks and 1x/week x2 weeks. Hermelinda to f/u PRN. * Telephone Encounter - Katie Burch - 06/28/2024 2:11 PM EST Tc from [facility] therapist requesting verbal order physical therapy. [phone] documented in this encounter Plan of Treatment Upcoming Encounters Date Type Department Care Team (Late st Contact Info) Description 09/28/2024 3:15 PM EDT Office Visit [facility] MEDICINE [address] [place] [address] Lo Donato MD [address] [place] [address] documented as of this encounter Visit Diagnoses Not on filedocumented in this encounter Additional Health Concerns Assessment Noted Time PHQ-9 Depression Total Score: 0 09/25/19 24 11:56 AM EDT documented as of this encounter Care Teams Food Products Sales Representative Relationship Specialty Start Date End Date Lo Donato MD [address] [place] [address] PCP - General Family Medicine 04/25/22 [facility] 03/17/24 documented as of this encounter
--- OUTSIDE RECORDS SUMMARY | 2024-07-01 16:50 | XMS_ITS | Encounter Summary ---
Author Organization [employer] Address [address] [facility] 7t [place] [address] Care Team Providers Care Thermal Engineer Name Role Phone Lo Donato MD Primary Care Provider [phone] Reason for Visit * Reason Comments Med Change Request Encounter Details Date Type Department Care Team (Late st Contact Info) Description 06/27/2024 Refill [facility] MEDICINE 230 [place], [place] [phone] Lo Donato MD 230 [place], [place] [phone] Social History Tobacco Use Types Packs/Day Years [...] Description 09/28/2024 3:15 PM EDT Office Visit [facility] MEDICINE [address] [place] [address] Lo Donato MD [address] [place] [address] documented as of this encounter Visit Diagnoses Not on filedocumented in this encounter Additional Health Concerns Assessment Noted Time PHQ-9 Depression Total Score: 0 09/25/19 24 11:56 AM EDT documented as of this encounter Care Teams Thermal Engineer Relationship Specialty Start Date End Date Lo Donato MD [address] [place] [phone] PCP - General Family Medicine 04/25/22 [facility] 03/17/24 documented as of this encounter
--- OUTSIDE RECORDS SUMMARY | 2024-07-01 16:50 | XMS_ITS | Encounter Summary ---
Author Organization [employer] [facility] Address [address] [facility] [address] [place] [address] Care Team Providers Care French Professor Name Role Phone Lo Donato MD Primary Care Provider [phone] Encounter Details Date Type Department Care Team (Late st Contact Info) Description [facility] [address] [place] [address] Lo Donato MD [address] [place] [address] Social History Tobacco Use Types Packs/Day Years Used Date Smoking Tobacco: Never Smokeless Tobacco: Never Alcohol Use Standard Drinks/Week Comments Never 0 (1 standard drink = 0.6 oz pur e alcohol) Comments Unknown Sex and Gender Information Value [...] Description 09/28/2024 3:15 PM EDT Office Visit [facility] MEDICINE 230 [place] [address] Lo Donato MD [address] [place] [address] documented as of this encounter Visit Diagnoses Not on filedocumented in this encounter Care Teams French Professor Relationship Specialty Start Date End Date Lo Donato MD [address] [place] [phone] PCP - General Family Medicine 04/25/22 [facility] 03/17/24 documented as of this encounter
--- OUTSIDE RECORDS SUMMARY | 2024-07-01 16:50 | XMS_ITS | Encounter Summary ---
Author Organization [employer] Address [address] [facility] 7t [place] [address] Care Team Providers Care Brand Marketing Specialist Name Role Phone Lo Donato MD Primary Care Provider [phone] Reason for Visit * Reason Comments Med Change Request Encounter Details Date Type Department Care Team (Late st Contact Info) Description 10/31/2023 Refill [facility] MEDICINE 230 [place], [place] [phone] Lo Donato MD 230 [place], [place] [phone] Uncontrolled type 2 diabetes mellitus with hyperglycemia ([facility]) Social History Tobacco Use Types Packs/Day Years [...] 09/28/2024 3:15 PM EDT Office Visit [facility] MEDICINE [address] [place] [address] Lo Donato MD [address] [place] [address] documented as of this encounter Visit Diagnoses Diagnosis Uncontrolled type 2 diabetes mellitus with hyperglycemia (CMS/HCC) documented in this encounter Additional Health Concerns Assessment Noted Time PHQ-9 Depression Total Score: 0 09/25/19 24 11:56 AM EDT documented as of this encounter Care Teams Brand Marketing Specialist Relationship Specialty Start Date End Date Lo Donato MD [address] [place] [phone] PCP - General Family Medicine 04/25/22 [facility] 03/17/24 documented as of this encounter
--- OUTSIDE RECORDS SUMMARY | 2024-07-01 16:50 | XMS_ITS | Clinical Summary ---
Author Organization [employer] Address [address] [place] [address] Care Team Providers Care Injection Molding Machine Tender Name Role Phone Lo Donato MD Primary Care Provider [phone] Allergies No known active allergies Medications * This document contains information received from the source organization and may not represent a complete record from that organization. albuterol 108 (90 Base) MCG/ACT inhaler inhale 2 puff by inhalation route every 4 - 6 hours as needed 022 Active glucose (Glutose) 40 % gel oral gel empty whole content in case of low blood sugars <60 022 Active Misc. Devices (Rollator Ultra-Light) misc Use as directed Active ursodiol (Actigall) 500 MG tablet Take by mouth. Take 1 TABLET 2 TIMES A DAY 023 Active docusate sodium (Colace) 100 MG capsule Take 1-2 capsules by mouth 2 times daily. Active Blood Pressure kitIndications:Ess ential hypertension Use to monitor BP 1 kit 023 Active cetirizine (ZyrTEC) 5 MG tablet TAKE 1 TABLET BY MOUTH EVERY DAY IF NEEDED FOR ALLERGY SYMPTOMS 90 tablet 3 023 Active amLODIPine (Norvasc) 5 MG tabletIndications: Essential hypertension Take 1 tablet (5 mg) by mouth in the morning. 30 tablet 11 024 Active sucralfate (Carafate) 1 g tabletIndications: History of upper gastrointestinal bleeding TAKE 1 TABLET (1 G) BY MOUTH BEFORE BREAKFAST AND BEFORE EVENING MEAL. 90 tablet 8 024 Active aspirin 81 MG EC tablet TAKE 1 TABLET BY MOUTH EVERY DAY 90 tablet 3 024 Active linaCLOtide (Linzess) 145 MCG capsule TAKE 1 CAPSULE (145 MCG) BY MOUTH BEFORE BREAKFAST. 90 capsule 1 06/03/2 024 Active fluticasone (Flonase) 50 MCG/ACT nasal spray SPRAY 1 SPRAY INTO EACH NOSTRIL TWICE A DAY 48 mL 3 Active PEG 3350 (Glycolax, Miralax) 4 gram packet Take 17 g by mouth. Active sennosides (Senokot) 8.6 MG tablet Take 8.6 mg by mouth. Active sodium bicarbonate 650 MG tablet Take 1 tablet by mouth 2 times daily. Active tiZANidine (Zanaflex) 2 MG tablet Take 2 mg by mouth 3 times daily. Active pantoprazole (ProtoNix) 40 MG EC tablet Take 1 tablet by mouth 2 times daily. Do not crush, chew, or split. Active sertraline (Zoloft) 25 MG tablet Take 1 tablet (25 mg) by mouth Once per day. 90 tablet 3 025 06/17 Active Additional Information Patient not taking.Reported on 06/27/2024 Blood Glucose Monitoring Suppl (ONE TOUCH ULTRA 2) w/Device kitIndications:Typ e 2 diabetes mellitus with hyperglycemia, with long-term current use of insulin ([facility]) 1 each 2 times daily. Test by intradermal route 3 times every day 1 kit 025 Active Glucose Blood ([employer] GroupTOUCH ULTRA TEST ) Use to test blood glucose three times a day as direcetd Active glucose blood ([employer] SchwabTouch Ultra) test stripIndications:T ype 2 diabetes mellitus with hyperglycemia, with long-term current use of insulin ([facility]) Use to test blood sugar four times a day 150 strip 12 Active Charles SchwabTouch UltraSoft 2 Lancets miscIndications:Ty pe 2 diabetes mellitus with hyperglycemia, with long-term current use of insulin (CMS/HCC) 1 strip before breakfast, before lunch, before evening meal, and at bedtime. 150 each 11 Active traZODone (Desyrel) 50 MG tabletIndications: Type 2 diabetes mellitus with hyperglycemia, with long-term current use of insulin (CMS/HCC) Take 1/2 tablet (25mg) every morning and 1 full tablet every evening 45 tablet 3 Active SITagliptin (Januvia) 25 MG tabletIndications: Type 2 diabetes mellitus with hyperglycemia, with long-term current use of insulin (CMS/HCC) Take 1 tablet (25 mg) by mouth Once per day. 30 tablet 07/01 Active Continuous Glucose Maintenance Repairman (FreeStyle Fatmata 3 [place]) deviceIndications: Type 2 diabetes mellitus with hyperglycemia, with long-term current use of insulin (CMS/HCC) 1 each Once per day. Use as directed for CGM 1 each Active Continuous Glucose Sensor (FreeStyle Fatmata 3 Plus Sensor) miscIndications:Ty pe 2 diabetes mellitus with hyperglycemia, with long-term current use of insulin (CMS/HCC) 1 each every 15 days. Apply 1 every 15 days as directed for CGM 2 each Active Insulin Glargine-yfgn 100 UNIT/ML solution pen-injectorIndica tions:Type 2 diabetes mellitus with hyperglycemia, with long-term current use of insulin (CMS/HCC) Inject 0.15 mL (15 Units) under the skin in the morning. 15 mL Active Alcohol Swabs (Alcohol Prep) padsIndications:Ty pe 2 diabetes mellitus with hyperglycemia, with long-term current use of insulin (CMS/HCC),Uncontro lled type 2 diabetes mellitus with hyperglycemia (CMS/HCC) Use 1 pad topically prior to insulin administration 100 each Active pen needle 32G x 4 mm miscIndications:Ty pe 2 diabetes mellitus with hyperglycemia, with long-term current use of insulin (CMS/HCC),Uncontro lled type 2 diabetes mellitus with hyperglycemia (CMS/HCC) Inject under the skin if needed (insulin administration). Use 4 x day with insulin pens 100 each Active insulin lispro (HumaLOG) 100 UNIT/ML injectionIndicatio ns:Type 2 diabetes mellitus with hyperglycemia, with long-term current use of insulin (CMS/HCC) INJECT THREE TIMES A DAY PER SLIDING SCALE 150-199 MG/DL, 2 UNITS 200-249 MG/DL, 4 UNITS 250-299, 6 UNITS 300-349, 8 UNITS 350-399. 10 UNITS 400-449, 12 UNITS AND >400 OR <70 MG/DL, CALL MD 15 mL Active white petrolatum-zinc (Skin Protectant) 58.3 % creamIndications:U rinary incontinence due to cognitive impairment APPLY TO AFFECTED AREA TWICE A DAY 60 g 1 025 Active Multiple Vitamin (multivitamin) tablet Take 1 tablet by mouth in the morning. 90 tablet 3 023 06/27 Discontinued( Med list cleanup (will not trigger notification to Pharmacy)) Diclofenac Sodium 1 % gelIndications:Nec k pain APPLY 1 INCH TOPICALLY IN THE MORNING AND AT BEDTIME IF NEEDED FOR SEVERE PAIN 100 g 3 023 06/27 Discontinued( Med list cleanup (will not trigger notification to Pharmacy)) Blood Glucose Monitoring Suppl (ONE TOUCH ULTRA 2) w/Device kitIndications:Typ e 2 diabetes mellitus with hyperglycemia, with long-term current use of insulin ([facility]) 1 kit 3 times daily. Test 1 times by intradermal route 3 times every day 1 kit 023 06/22 Discontinued( Reorder (will not trigger notification to Pharmacy)) Insulin Lispro 100 UNIT/ML solution Inject three times a day per sliding scale; 150-199 mg/dl, 2 units; 200-249 mg/dl, 4 units; 250-299, 6 units; 300-349, 8 units; 350-399. 10 units; >399, 14 units and call MD 024 06/27 Discontinued( Med list cleanup (will not trigger notification to Pharmacy)) ondansetron (Zofran) 4 MG tablet Take 1 tablet by mouth every 6 (six) hours if needed for nausea. 024 06/27 Discontinued( Med list cleanup (will not trigger notification to Pharmacy)) Ascorbic Acid (vitamin C) 500 MG tabletIndications: Chronic anemia Take 1 tablet (500 mg) by mouth in the morning. 30 tablet 11 024 06/27 Discontinued( Med list cleanup (will not trigger notification to Pharmacy)) Continuous Blood Gluc Sensor (FreeStyle Fatmata 2 Sensor) miscIndications:Un controlled type 2 diabetes mellitus with hyperglycemia (CMS/HCC) USE DIRECTED EVERY 2 WEEKS 2 each 2 024 07/01 Discontinued pen needle 32G x 4 mm miscIndications:Un controlled type 2 diabetes mellitus with hyperglycemia ([facility]) Inject under the skin if needed (insulin administration). Use 4 x day with insulin pens 100 each 024 07/01 Discontinued( Reorder (will not trigger notification to Pharmacy)) Alcohol Swabs (Alcohol Prep) padsIndications:Un controlled type 2 diabetes mellitus with hyperglycemia ([facility]) Use 1 pad topically prior to insulin administration 100 each 024 07/01 Discontinued( Reorder (will not trigger notification to Pharmacy)) oxyCODONE (Roxicodone) 5 MG immediate release tablet TAKE A 1/2 TABLET BY MOUTH EVERY 6 HOURS FOR 1 DAY NEEDED FOR PAIN 06/27 Discontinued( Med list cleanup (will not trigger notification to Pharmacy)) Januvia 50 MG tablet Take 50 mg by mouth. 024 06/17 Discontinued( Reorder (will not trigger notification to Pharmacy)) melatonin 3 MG tablet Take 3 mg by mouth. 024 06/27 Discontinued( Med list cleanup (will not trigger notification to Pharmacy)) traZODone (Desyrel) 50 MG tablet Take 12.5 mg by mouth 2 times daily. 024 07/01 Discontinued( Reorder (will not trigger notification to Pharmacy)) insulin glargine (Basaglar KwikPen) 100 UNIT/ML pen Inject 10 Units under the skin at bedtime. 06/27 Discontinued( Med list cleanup (will not trigger notification to Pharmacy)) gabapentin (Neurontin) 100 MG capsule Take 1 capsule by mouth 2 times daily. 06/27 Discontinued( Med list cleanup (will not trigger notification to Pharmacy)) SITagliptin (Januvia) 50 MG tablet TAKE 1 TABLET BY MOUTH EVERY DAY 90 tablet 1 025 07/01 Discontinued Insulin Glargine-yfgn 100 UNIT/ML solution pen-injector Inject 10 Units under the skin at bedtime. 025 07/01 Discontinued( Reorder (will not trigger notification to Pharmacy)) insulin lispro (HumaLOG KWIKPEN) 100 UNIT/ML injection Inject three times a day per sliding scale; 150-199 mg/dl, 2 units; 200-249 mg/dl, 4 units; 250-299, 6 units; 300-349, 8 units; 350-399. 10 units; 400-449, 12 units and >400 or <70 mg/dl, call 07/01 Discontinued( Reorder (will not trigger notification to Pharmacy)) OneTouch UltraSoft 2 Lancets misc Use to test blood sugars three times a day as directed 06/27 Discontinued( Reorder (will not trigger notification to Pharmacy)) glucose blood (OneTouch Ultra) test strip Use to test blood sugar three times a day 100 each 025 06/28 Discontinued OneTouch UltraSoft 2 Lancets misc 1 strip before breakfast, before lunch, and before evening meal. Use to test blood sugars three times a day as directed 100 each 025 06/28 Discontinued( Reorder (will not trigger notification to Pharmacy)) OneTouch Ultra test strip USE TO TEST BLOOD SUGAR THREE TIMES A DAY 100 strip 07/01 Discontinued( Reorder (will not trigger notification to Pharmacy)) OneTouch UltraSoft 2 Lancets misc 1 strip before breakfast, before lunch, and before evening meal. Use to test blood sugars three times a day as directed 100 each 07/01 Discontinued( Reorder (will not trigger notification to Pharmacy)) insulin lispro (HumaLOG KWIKPEN) 100 UNIT/ML injectionIndicatio ns:Type 2 diabetes mellitus with hyperglycemia, with long-term current use of insulin ([facility]) Inject three times a day per sliding scale; 150-199 mg/dl, 2 units; 200-249 mg/dl, 4 units; 250-299, 6 units; 300-349, 8 units; 350-399. 10 units; 400-449, 12 units and >400 or <70 mg/dl, call 15 mL 3 07/01 Discontinued white petrolatum-zinc (Skin Protectant) 58.3 % creamIndications:U rinary incontinence due to cognitive impairment Apply topically 2 times daily. 60 g 1 07/01 Discontinued Active Problems Problem Noted Date Diagnosed Date Requires assistance with activities of daily neftali ing (ADL) 12/18/2023 Counseling, unspecified 09/30/2023 Moderate vascular dementia with agitation 2023 Assessment & Plan (09/29/2023 2:27 PM EDT): Presumed dementia based on cognitive and executive functioning without formal dx Daughter will call [facility] to reschedule neurology eval Continue day/night cycles BH came to speak with patient about therapy and psych prescriber referrals. Weakness 07/17/2023 Assessment & Plan (07/17/2023 5:15 PM EDT): Chronic, requiring manual wheelchair for safe movement, Autoimmune hepatitis 07/14/2023 Assessment & Plan (07/17/2023 5:08 PM EDT): Followed by GI, tolerating medications, does not have follow up with gI scheduled, contact information given as well as referral History of upper gastrointestinal bleeding 03/19 Assessment & Plan (09/29/2023 2:38 PM EDT): In 12/2022, Hg julio of 6.2, s/p EGD now on Pantoprazole daily. She is back to ASA No re-occurance of bleeding Continue to monitor Hg 11.0 today Assessment & Plan (07/17/2023 5:08 PM EDT): See recent hospitalization, tolerating iron, and vit c, denies worsening constipation, labs ordered today Assessment & Plan (03/19/2023 9:19 AM EST): In 01/2023, Hg julio of 6.2, s/p EGD now on Pantoprazole daily. She is back to ASA No re-occurance of bleeding Continue to monitor Hg 11.0 today Vaginal itching 03/18/2023 Assessment & Plan (03/18/2023 9:39 AM EST): Treat presumptively as yeast infection with clotrimazole BID x 14 days Emphasized link between blood sugars and vaginal itching Iron deficiency anemia due to chronic blood loss 01/21/2023 Assessment & Plan (07/17/2023 5:12 PM EDT): See above, tolerating oral iron. Labs due today Assessment & Plan (01/27/2023 4:43 PM EDT): Most likely gastric ectasia bleeding + ?CKD. Sp RBC transfusion Order CBC Continue Iron supplementation Refer to GI for further fu Acute cystitis with hematuria 01/21/2023 Assessment & Plan (01/27/2023 4:42 PM EDT): Improving Complete Cephalexin x 2 more days Re consult prn Neck pain 01/21/2023 Assessment & Plan (01/27/2023 4:41 PM EDT): Chronic Reccommended to use Tylenol only + Heat pads to affected area and stretching exercises. FU w PCP Hospital discharge follow-up 11/12/2022 Assessment & Plan (07/17/2023 5:14 PM EDT): 72yo F with portal hypertensive gastropathy, autoimmune hepatitis/cholangitis, GERD, DM2, CKD3, ORAL, hx CVA, and HTN who was sent in for anemia. She was admitted to the telemetry unit and Gastroenterology was consulted. She was transfused 2 units of packed red blood cells with appropriate response in hemoglobin. She was also given IV iron. EGD was done on 06/11/[address] Mary Haines and showed AVM, small varix, esophagitis, and GAVE; APC was done to the AVM and GAVE. She was started on sucralfate and PPI was resumed. Diet was advanced and hemoglobin was stable with no GI bleeding. She will follow up with GI for biopsy results. Creatinine remained around baseline [CKD3]. She was [facility] back to [facility] care. At home tolerating medications prescribed, reviewed importance of GI follow up Glargine increased today based on home glucometer readings, follow up with PCP as scheduled Assessment & Plan (11/12/2022 8:50 AM EDT): MED LIST reviewed and updated CONTINUE Rifaxamin for hepatic encephalopathy, need GI notes from [facility] CONTINUE Calcitriol for compression fracture STOP Lisinopril due to SAM STOP Loratadine (already on Claritin) CALL L&C about hospital bed Thoracic back pain 09/15/2022 Assessment & Plan (11/12/2022 8:52 AM EDT): With compression fracture documented at [facility] Referral to spine surgery at [facility] for potential kyphoplasty Arthritis 06/18/2022 Overview (06/18/2022): hands Type 2 diabetes mellitus 06/18/2022 Assessment & Plan (09/29/2023 2:23 PM EDT): At goal with Toujeo 40 units nightly Humalog 12 units with meals Assessment & Plan (12/03/2022 10:11 AM EDT): At goal with Toujeo 40 units nightly Humalog 12 units with meals Insomnia 06/18/2022 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 Family considering day program referral to care management Dementia 06/18/2022 Assessment & Plan (01/27/2023 4:46 PM EDT): Continue to live with her daughter FU w PCP No change in meds I d/w patient importance of accident prevention and compliance with meds that is apparently not possible if patient lives alone Assessment & Plan (12/03/2022 10:09 AM EDT): CT with noted small vessel ischemia, prior infarcts Home report consistent with moderate dementia with behavioral disturbance Control vascular risk factors On Seroquel 50mg nightly for behavioral disturbance, will STOP Trazodone 100mg nightly Assessment & Plan (11/12/2022 8:59 AM EDT): CT with noted small vessel ischemia, prior infarcts Home report consistent with moderate dementia with behavioral disturbance Control vascular risk factors On Seroquel 25mg nightly for behavioral disturbance, will STOP Trazodone 100mg nightly and increase Seroquel to 50mg Assessment & Plan (09/15/2022 1:25 PM EDT): CT with noted small vessel ischemia, prior infarcts Home report consistent with moderate dementia with behavioral disturbance Control vascular risk factors On Seroquel for this Clinical findings support the need for a hospital bed given the patient has a medical condition which requires positioning of the body in ways no feasible with an ordinary bed. Medical condition: dementia, urinary incontinence Semi-electric: The patient requires frequent changes in body position and /or has an immediate need for a change in body position. Accessories: - Side rails: The patient? s conditions require this item and they are an integral part of, or an accessory to, a covered hospital bed. -Gel overlay: Gel overlay required due to limited mobility and - Patient has a pressure ulcer on the trunk or pelvis. - Patient has impaired nutritional status - Patient has incontinence - Patient has altered sensory perception - Patient has compromised circulatory status Class 1 obesity 06/18/2022 Cirrhosis of liver 06/18/2022 Assessment & Plan (07/17/2023 5:08 PM EDT): Trend labs, ordered today Assessment & Plan (11/12/2022 8:58 AM EDT): Not a candidate for statin due to cirrhosis With hepatic encephalopathy potentially complicated mental status Continue Rifaxmin 550mg BID Chronic anemia 06/18/2022 Transient cerebral ischemia 06/18/2022 Atypical chest pain 04/16/2022 Constipation 04/16/2022 Coronary arteriosclerosis 04/16/2022 Asthma 04/16/2022 Dyspnea on exertion 04/16/2022 Myocardial infarction 04/16/2022 Assessment & Plan (09/29/2023 2:38 PM EDT): IN 07/2019, with PCI to LAD with drug eluting stent, discharged on ASA and Brilinta, ASA stopped 12/2022 due to UGIB and restarted by spring 2023 Recurrent falls 04/16/2022 Varicose veins of both lower extremities 020 Hyperlipidemia 02/11/2018 Microalbuminuric diabetic nephropathy 02/11/2018 Assessment & Plan (09/29/2023 2:29 PM EDT): Renal function varies between eGFR 21- 33 Avoid NSAIDs Consider SGLTs Vitamin D deficiency 02/11/2018 Assessment & Plan (09/15/2022 1:28 PM EDT): Restart Vit D 800 international units daily Bladder prolapse, female, acquired 12/25/2017 Essential hypertension 12/25/2017 Assessment & Plan (07/17/2023 5:07 PM EDT): Slightly above goal today, monitor Assessment & Plan (01/27/2023 4:47 PM EDT): BP at goal on metoprolol + Amlodipine Continue off lisinopril for now. Can restart if GFR>40 and BP is uncontrolled. Check BMP and fu w PCP in 4w Check BP at home BIW Assessment & Plan (12/03/2022 10:10 AM EDT): At goal today On Amlodipine and Enalapril Assessment & Plan (09/15/2022 1:25 PM EDT): At goal today Enalapril had been stopped and started in the past year, to restart 5mg today for renal protection Check K in 2-4 weeks Urinary incontinence 12/25/2017 Assessment & Plan (09/15/2022 1:26 PM EDT): Continue urinary briefs, frequent changes to prevent infection Daughter has DIVIDING MACHINE OPERATOR HELPER hours and is trying to have patient move in with her Chronic renal disease, stage IV Assessment & Plan (09/29/2023 2:29 PM EDT): Lab Results Component Value Date EGFR 33 07/15/2023 Vacillates between CKD 3 and CKD 4 Last saw nephro 09/23/23 Encounters Date Type Department Care Team Description 07/01/2024 1:30 PM EST Office Visit [facility] [address] [place] [address] Laura Black, [facility] Urinary incontinence due to cognitive impairment (Primary Dx); Type 2 diabetes mellitus with hyperglycemia, with long-term current use of insulin ([facility]); Uncontrolled type 2 diabetes mellitus with hyperglycemia ([facility]) 07/01/2024 Refill [facility] [address] [place] [address] Laura Black, [facility] Urinary incontinence due to cognitive impairment 07/01/2024 Refill [facility] [address] [place] [address] [place], [facility] Type 2 diabetes mellitus with hyperglycemia, with long-term current use of insulin ([facility]) 07/01/2024 Travel 06/30/2024 Telephone [facility] [address] [place] [address] Lo Donato MD Durable Medical Equipment 06/28/2024 Telephone [facility] [address] [place] [address] Lo Donato MD verbal order 06/28/2024 Refill [facility] [address] [place] [address] Lo Donato MD 06/27/2024 Refill [facility] [address] [place] [address] Lo Donato MD 06/27/2024 Refill [facility] [address] [place] [address] Lo Donato MD 06/27/2024 Patient Outreach [facility] [address] [place] [address] Lo Donato MD Care Coordination ([facility] outreach for [facility] PT-1 - LVM ) 06/27/2024 Telephone [facility] [address] [place] [phone] Lo Donato MD Medication Question; Durable Medical Equipment (Tc from Gabi a [facility] Nurse requesting a Glucometer for the Pt due to her old one being broken./And Gabi would like a call back to Discuss pt medication./Contact [place] at [phone]/) 06/27/2024 Telephone [facility] [address] [place] [address] Lo Donato MD PT-1 (/) 06/27/2024 Refill [facility] [address] [facility] [place] [address] Mona Cerda PharmD 06/22/2024 Refill [facility] [address] [place] [address] Lo Donato MD Type 2 diabetes mellitus with hyperglycemia, with long-term current use of insulin ([facility]) (Primary Dx) 06/17/2024 Refill [facility] [address] [facility] [place] [address] Lo Donato MD 06/17/2024 Refill [facility] [address] [place] [address] Lo Donato MD 06/17/2024 Telephone [facility] [address] [place] [address] Lo Donato MD Nurse Triage 05/19/2024 Telephone [facility] [address] [place] [address] Mona Cerda PharmD HDF appointment 05/06/2024 Patient Outreach [facility] [address] [place] [address] Lo Donato MD Transition Of Care (Tcm) (HDF scheduled. ) 05/06/2024 Patient Outreach [facility] [address] [place] [address] Lo Donato MD Transition Of Care (Tcm) (HDF unscheduled. ) 05/06/2024 Telephone [facility] [address] [place] [address] Lo Donato MD Care Coordination 04/07/2024 Telephone [facility] [address] [place] [address] Mona Cerda, PharmLili HDF appointment from Last 3 Months Immunizations Name Administration Dates Next Due [place] SARS-CoV-2 Vaccination 10/15/2020 Pfizer Covid-19 Vaccine 12+ 07/09/2021 Pfizer Covid-19 Vaccine 12+ jason-sucrose (Matthew C ap) 07/09/2021 Pneumococcal Conjugate PCV 20 01/15/2022 TD (adult), 2 Lf tetanus tox oid, preservative free, adsorbed 03/21/2018 Zoster, Recombinant 01/15/2022 Social History Tobacco Use Types Packs/Day Years Used Date Smoking Tobacco: Never Smokeless Tobacco: Never Tobacco Cessation:Counseling Given: Not Answered Alcohol Use Standard Drinks/Week Comments Never 0 [...] Orientation Straight 03/03/2022 10 :34 AM EDT Last Filed Vital Signs Vital Sign Reading Time Taken Comments Blood Pressure 120/68 07/01/2024 1:51 PM EST Pulse 66 07/01/2024 1:51 PM EST Temperature 36.6 ??C (97.8 ??F) 07/01/2024 1:51 PM ES T Respiratory Rate 20 07/01/2024 1:51 PM EST Oxygen Saturation 98% 07/01/2024 1:51 PM EST Inhaled Oxygen Concentration - - Weight 64 kg (141 lb) 07/01/2024 1:51 PM EST Height 137.2 cm (4' 6 ) 07/01/2024 1:51 PM EST Body Mass Index 34 07/01/2024 1:51 PM EST Plan of Treatment Upcoming Encounters Date Type Department Care Team (Late st Contact Info) Description 09/28/2024 3:15 PM EDT Office Visit [facility] MEDICINE [address] [place], [place] [phone] Lo Donato MD [address] [place] [address] Health Maintenance Due Date Last Done Comments CT Colonography 1950 FIT DNA/Cologuard 1950 FIT 1950 FOBT 1950 Sigmoidoscopy 1950 Diabetes: Foot Exam 1960 Eye Exam 1960 Hepatitis C Screening 1968 Hepatitis A Vaccines (1 of 2 - Risk 2-dose series) 1969 Hepatitis B Vaccines (1 of 3 - Risk 3-dose series) 2010 RSV Patients and Patients Aged 60 years or older (1 - Risk 60-74 years 1-dose series) 2010 DTaP/Tdap/Td Vaccines (1 - Tdap) 03/22/2018 03/21/2018, 03/21/2018 Mammogram 01/02/2020 01/01/2018 Zoster Vaccines (2 of 2) 03/12/2022 01/15/2022 Lipid Panel 01/15/2023 01/15/2022 COVID-19 Vaccine ( season) 2024 07/09/2021, 07/09/2021, 10/15/2020 Influenza Vaccine (#1) 2024 SDOH Screening 01/22/2024 01/21/2023 Alcohol/Substance Use Screening 09/24/2024 09/25/2023 Depression Screening 09/24/2024 09/25/2023, 09/25/19 Diabetes: Hemoglobin A1C 09/28/2024 025, 09/25/2023, 07/15/2023, Additional history exists Colonoscopy 10/04/2024 Colorectal Cancer Screening 10/04/2024 Tobacco Screening 07/01/2025 07/01/2024 Pneumococcal Vaccine: 50+ Years Completed 04/07/2024, 01/15/2022, 01/15/2022 HIB Vaccines Aged Out No longer eligi ble based on patient's age to complete this topic HPV Vaccines Aged Out No longer eligi ble based on patient's age to complete this topic IPV Vaccines Aged Out No longer eligi ble based on patient's age to complete this topic Meningococcal Vaccine Aged Out No sumi nury eligible based on patient's age to complete this topic RSV under 20 months Aged Out No longe r eligible based on patient's age to complete this topic Rotavirus Vaccines Aged Out No longer eligible based on patient's age to complete this topic Procedures Procedure Name Priority Date/Time Associated Diagnosis Comments CBC WITH AUTO DIFFERENTIAL Routine 07/01/2024 2:47 PM EST Type 2 diabetes mellitus with hyperglycemia, with long-term current use of insulin ([facility]) BASIC METABOLIC PANEL Routine 07/01/2024 2:47 PM EST Type 2 diabetes mellitus with hyperglycemia, with long-term current use of insulin ([facility]) POCT GLUCOSE Routine 07/01/2024 2:24 PM EST Type 2 diabetes mellitus with hyperglycemia, with long-term current use of insulin (CMS/[facility]) POCT GLYCATED HEMOGLOBIN, TOTAL Routine 07/01/2024 2:24 PM EST Type 2 diabetes mellitus with hyperglycemia, with long-term current use of insulin (CMS/[facility]) LIPID PANEL, STANDARD Routine 01/15/2022 10:28 AM EDT BI MAMMOGRAM SCREENING BILATERAL Routine 01/01/2018 2:38 PM EDT from Last 3 Months or Most Recently Relevant to Health Maintenance Results * (ABNORMAL) CBC auto differential (07/01/2024 2:47 PM EST) White Blood Count 8.3 4.8 - 10.8 X10*3/uL [facility] Red Blood Count 4.41 4.20 - 5.50 X10*6/uL [facility] Hemoglobin 12.5 12.0 - 16.0 g/dl [facility] Hematocrit 39.3 37.0 - 47.0 % [facility] Mean Corpuscular Volume 89.1 80.0 - 98.0 fL [facility] Mean Corpuscular Hemoglobin 28.3 27.0 - 33.0 pg [facility] Mean Corpuscular HGB Conc 31.8 31.0 - 35.0 g/dl [facility] Red Cell Distribution Width 13.7 11.0 - 16.0 % [facility] Platelet Count 217 160 - 400 X10*3/uL [facility] Mean Platelet Volume 11.8 9.4 - 12.3 fL [facility] Neutrophils Percent Auto 75.1(H) 45 - 73 % [facility] Imm Gran Pct Auto 0.2 0.0 - 0.4 % [facility] Lymphocytes Percent Auto 17.2(L) 20 - 40 % [facility] Monocytes Percent Auto 5.0 2 - 11 % [facility] Eosinophils Percent Auto 2.1 0 - 4 % [facility] Basophils Percent Auto 0.4 0 - 2 % [facility] NRBC Pct Auto 0.0 0.0 - 0.2 /100WBC [facility] Neutrophils Absolute Auto 6.2 2.0 - 8.3 x10*3/uL [facility] Imm Gran Abs Auto 0.02 0.00 - 0.03 X10*3/uL [facility] Lymphocytes Absolute Auto 1.4 1.2 - 4.9 X10*3/uL [facility] Monocytes Absolute Auto 0.4 0.1 - 1.2 X10*3/uL [facility] Eosinophils Absolute Auto 0.2 0.0 - 0.4 X10*3/uL [facility] Basophils Absolute Auto 0.0 0.0 - 0.2 X10*3/uL [facility] NRBC Abs Auto 0.000 0.0 - 0.012 X10*3/uL [facility] Blood Venous blood specimen / Unknown 07/01/2024 2:47 PM EST 07/01/2024 4:07 PM EST [facility] LAB BLOOD ORDERABLES Final Re sult [facility] [address] [place] [phone] * (ABNORMAL) Basic Metabolic Panel (07/01/2024 2:47 PM EST) Sodium 142 135 - 145 mmol/L [facility] Potassium 3.8 3.3 - 5.1 mmol/L [facility] Chloride 108 96 - 108 mmol/L [facility] Carbon Dioxide 27 22 - 29 mmol/L [facility] Anion Gap 11(L) 12 - 20 [facility] Urea Nitrogen (BUN) 21(H) 9 - 16 mg/dL [facility] Creatinine, Serum 1.45(H) 0.5 - 1.4 mg/dL [facility] Estimated Glomerular Filt Rate 35 [facility] Comment:Chronic Kidney Disea se: Estimated GFR < 60 mL/min/1.00s7Akinji Kidney Disease: Estimated GFR < 15 mL/min/1.73m2 Glucose 207(H) 60 - 115 mg/dL [facility] Calcium 9.4 8.4 - 10.2 mg/dL [facility] Blood Venous blood specimen / Unknown 07/01/2024 2:47 PM EST 07/01/2024 4:07 PM EST [facility] LAB BLOOD ORDERABLES Final Re sult [facility] [address] [place] [phone] * (ABNORMAL) POCT HGB A1C (07/01/2024 2:24 PM EST) Hemoglobin A1C 7.1(A) 4.0 - 6.0 % Blood 07/01/2024 2:24 PM EST [facility] POINT OF CARE TEST ENTER/EDIT ORDERABLES Final Result * POCT Glucose (07/01/2024 2:24 PM EST) Glucose Blood, POC 174 60 - 200 mg/dL QC Media Lot # [id number] Lot# Expiration Date Blood Capillary blood specimen / Unknown 07/01/2024 2:24 PM EST [facility] POINT OF CARE TEST ENTER/EDIT ORDERABLES Final Result * (ABNORMAL) LIPID PANEL, STANDARD (01/15/2022 10:28 AM EDT) Chol/HDLC Ratio 2.2 <5.0 (calc) [facility] Cholesterol, Total 280(H) <200 mg/dL [facility] HDL Cholesterol 129 > OR = 50 mg/dL [facility] LDL Cholesterol 131(H) mg/dL (calc) [facility] Comment: Reference range: <100 ?? Desirable range <100 mg/dL for primary prevention; ?? <70 mg/dL for patients with CHD or diabetic patients ?? with > or = 2 CHD risk factors. ?? LDL-C is now calculated using the Anabel ?? calculation, which is a validated novel method providing ?? better accuracy than the Friedewald equation in the ?? estimation of LDL-C. ?? José VARGHESE et al. NAE. 2013;310(19): 6376-6470 ?? (http://education.[employer].Netlift/faq/ACN744) Non-HDL Cholesterol 151(H) <130 mg/dL (calc) [facility] Comment: For patients with diabetes plus 1 major ASCVD risk ?? factor, treating to a non-HDL-C goal of <100 mg/dL ?? (LDL-C of <70 mg/dL) is considered a therapeutic ?? option. Triglycerides 98 <150 mg/dL [facility] 01/15/2022 10:2 8 AM EDT Kathy Buck MD LAB BLOOD ORDERABLES Final R esult [facility] [address] * DIGITAL BILATERAL SCREEN 1 (01/01/2018 2:38 PM EDT) Anatomical Region Laterality Modality Breast Bilateral Mammography 01/01/2018 2:38 PM EDT Narrative 01/01/2018 2:42 PM EDT Refer to the Notes tab for result details [facility] Procedure: DIGITAL BILATERAL SCREEN 1 Procedure Note Provider, Airam, - 07/26/2022 Refer to the Notes tab for result details [facility] Procedure: DIGITAL BILATERAL SCREEN 1 Historical Provider IMG BI PROCEDURES Final R esult from Last 3 Months or Most Recently Relevant to Health Maintenance Insurance [facility] STANDARD [place] [phone] Care Teams Injection Molding Machine Tender Relationship Specialty Start Date End Date Lo Dnoato MD [address] [place] [phone] PCP - General Family Medicine 04/25/22 [facility] 03/17/24
--- OUTSIDE RECORDS SUMMARY | 2024-07-01 16:50 | XMS_ITS | Encounter Summary ---
Author Organization [employer] Address [address] [facility] [address] [place] [address] Care Team Providers Care Export Sales Assistant Name Role Phone Lo Donato MD Primary Care Provider [phone] Reason for Visit * Reason Comments Med Change Request Encounter Details Date Type Department Care Team (Late st Contact Info) Description 06/27/2024 Refill [facility] MEDICINE [address] [place], [place] [phone] Lo Donato MD [address] [place], [place] [phone] Social History Tobacco Use Types Packs/Day Years [...] Description 09/28/2024 3:15 PM EDT Office Visit [facility] MEDICINE [address] [place] [phone] Lo Donato MD [address] [place] [phone] documented as of this encounter Visit Diagnoses Not on filedocumented in this encounter Additional Health Concerns Assessment Noted Time PHQ-9 Depression Total Score: 0 09/25/19 24 11:56 AM EDT documented as of this encounter Care Teams Export Sales Assistant Relationship Specialty Start Date End Date Lo Donato MD [address] [place] [phone] PCP - General Family Medicine 04/25/22 [facility] 03/17/24 documented as of this encounter
--- OUTSIDE RECORDS SUMMARY | 2024-07-01 16:50 | XMS_ITS | Encounter Summary ---
Author Organization [employer] Address [address] [facility] 7t [place] [address] Care Team Providers Care Water/Wastewater Engineer Name Role Phone Lo Donato MD Primary Care Provider [phone] Reason for Visit * Reason Comments Med Refill Encounter Details Date Type Department Care Team (Late st Contact Info) Description 04/09/2023 Refill [facility] MEDICINE [address] [place], [place] [phone] Lo Donato MD [address] [place], [place] [phone] Insomnia due to medical condition Social History Tobacco Use Types Packs/Day Years [...] Description 09/28/2024 3:15 PM EDT Office Visit [facility] MEDICINE [address] [place] [address] Lo Donato MD [address] [place] [address] documented as of this encounter Visit Diagnoses Diagnosis Insomnia due to medical condition Organic insomnia, unspecified documented in this encounter Additional Health Concerns Assessment Noted Time PHQ-9 Depression Total Score: 11 023 10:00 AM EDT documented as of this encounter Care Teams Water/Wastewater Engineer Relationship Specialty Start Date End Date Lo Donato MD [address] [place] [address] PCP - General Family Medicine 04/25/22 [facility] 03/17/24 documented as of this encounter
--- OUTSIDE RECORDS SUMMARY | 2024-07-01 16:50 | XMS_ITS | Encounter Summary ---
Author Organization [employer] Address [address] [facility] 7[address] [place] [address] Care Team Providers Care Consultant Intern Name Role Phone Lo Donato MD Primary Care Provider [phone] Encounter Details Date Type Department Care Team (Latest Contact Info) Description 07/01/2024 Travel Social History Tobacco Use Types Packs/Day Years [...] Description 09/28/2024 3:15 PM EDT Office Visit [facility] MEDICINE [address] [place] [address] Lo Donato MD [address] [place] [address] documented as of this encounter Visit Diagnoses Not on filedocumented in this encounter Additional Health Concerns Assessment Noted Time PHQ-9 Depression Total Score: 0 09/25/19 24 11:56 AM EDT documented as of this encounter Care Teams Consultant Intern Relationship Specialty Start Date End Date Lo Donato MD [address] [place] [phone] PCP - General Family Medicine 04/25/22 [facility] 03/17/24 documented as of this encounter
--- OUTSIDE RECORDS SUMMARY | 2024-07-01 16:50 | XMS_ITS | Encounter Summary ---
Author Organization [employer] Address [address] [facility] [address] [place] [address] Care Team Providers Care Manager Process Excellence Name Role Phone Lo Donato MD Primary Care Provider [phone] Reason for Visit * Reason Comments Med Change Request Encounter Details Date Type Department Care Team (Late st Contact Info) Description 07/01/2024 Refill [facility] MEDICINE [address] [place], [place] [phone] [facility] [address] [place], [place] [phone] Type 2 diabetes mellitus with hyperglycemia, with long-term current use of insulin ([facility]) Social History Tobacco Use Types Packs/Day Years [...] Description 09/28/2024 3:15 PM EDT Office Visit [facility] MEDICINE [address] [place] [address] Lo Donato MD [address] [place] [address] documented as of this encounter Visit Diagnoses Diagnosis Type 2 diabetes mellitus with hyperglycemia, with long-term current use of insulin ([facility]) documented in this encounter Additional Health Concerns Assessment Noted Time PHQ-9 Depression Total Score: 0 09/25/19 24 11:56 AM EDT documented as of this encounter Care Teams Manager Process Excellence Relationship Specialty Start Date End Date Lo Donato MD [address] [place] [address] PCP - General Family Medicine 04/25/22 [facility] 03/17/24 documented as of this encounter
--- OUTSIDE RECORDS SUMMARY | 2024-07-01 16:50 | XMS_ITS | Data Portability ---
Author Organization [facility] [facility], Main Office Address [address] [place] [address] Care Team Providers Care Business Services Specialist Sales Name Role Phone KEATONABEBE KTAELYNN Primary Care Provider [facility] - 3RD FLOOR OTHER Assessment Encounter Date Assessment Date Assessment LastModified by Organization Details LastModified Time 02/23/2024 02/23/2024 Spent 30 reviewing records, seeing pt, consulting with staff and documenting [email or web address] Not available 02/23/2024 10:41:35 Plan of Treatment Reminders Order Date Submit Date Provider Last Modified By Organization Details Last Modified Time Details Appointments None record ed. Lab None record ed. Referral None record ed. Procedures None record ed. Surgeries None record ed. Imaging None record ed. Medication Orders None record ed. Patient TargetsNo targets recorded. Patient InstructionsNo instructions recorded. Reason for Referral None Reported. Problems Name Problem SNOMED Code Status Onset Date Resolution Date Notes Provider Name and Address Organization Details Recorded Time Urinary tract infectiou s disease 45546785 Active 2020 Not Available [facility] 4 02:10:58 Arthritis 1194725 Active 2020 Not Available [facility] 4 02:10:58 Falls 136100564 Completed 202010/26/2020 Leandra zamorano, [facility] [facility] 1 11:40:20 Recurrent falls 836929682 Active 2020 Not Available [facility] 4 02:10:58 Asthenia 13964104 Active 2020 Not Available [facility] 4 02:10:58 Coronary arteriosc lerosis 61438840 Active 2020 Not Available [facility] 4 02:10:58 Cirrhosis of liver 02981415 Active 2020 Not Available [facility] 4 02:10:58 Chronic kidney disease 903421473 Active 2020 Not Available [facility] 4 02:10:58 Type 2 diabetes mellitus 40722545 Active 2020 Not Available [facility] 4 02:10:58 Toxic encephalo blanca 63238602 Active 2020 Not Available [facility] 4 02:10:58 Hypertens carmen disorder 19826900 Active 2020 Not Available [facility] 4 02:10:58 Gastroeso phageal reflux disease 121979944 Active 2020 Not Available [facility] 4 02:10:58 Anemia 462332338 Active 2020 Not Available [facility] 4 02:10:58 Seasonal allergy 751061285 Active 2020 Not Available [facility] 4 02:10:58 Irritable bowel syndrome 60849844 Active 2020 Not Available [facility] 4 02:10:58 Insomnia 026378577 Active 2020 Not Available [facility] 4 02:10:58 Lipoma of back 553730279 Active 2020 Not Available [facility] 4 02:10:58 Cerebrova scular accident 211301741 Active 2022 Not Available [facility] 4 02:10:58 Diabetic ketoacido sis 144708971 Active 2022 Not Available [facility] 4 02:10:58 Vitamin D deficienc y 02667308 Active 2023 Not Available [facility] 4 02:10:58 Impaired cognition 501355244 Active 2023 Not Available [facility] 4 02:10:58 COVID-19 806207317 Active 2023 Kaylynn Fan, OUTPATIENT PHYSICAL THERAPIST ASSISTANT [address] [facility], [address], [place], [address] , [place] [employer] 4 15:59:33 Vascular ectasia of gastric antrum 80849329 Active 2023 CONRAD SMART NP [address] [facility], [facility] [address], [place], [address] , [employer] 4 12:16:42 Acquired arteriove nous malformat ion 87411868161 08 Active 2023 CONRAD SMART NP [address] [facility], [address], [place], [address] , [employer] 4 12:30:07 Closed fracture of neck of femur 369857920 Active 2023 CONRAD SMART NP [address] [facility], [facility] [address], [place], [address] , [employer] 4 15:46:00 Notes:Some problems listed i n Document: #[id number] could not be added to this patient's chart. Please review this document and add these problems to the patient's chart manually as needed. Problem Notes None recorded. Medical Equipment None Reported. Allergies No known drug allergies Medications Name Sig Start Date Stop Date Status Note LastModified by Organization Details LastModified Time amlodipine 5 mg tablet active Not Available Not Available No t Available metoprolol tartrate 25 mg tablet TOME ZAY TABLETA DOS VECES AL DAA active Not Available Not Available No t Available Vitals Date Recorded Body height Body weight Body mass index (BMI) Respiratory rate Body temperature Heart rate Oxygen saturation Oxygen saturation in Arterial blood by Pulse oximetry Systolic blood pressure Diastolic blood pressure Provider Name and Address Organization Details Last Updated DateTime 4 152.4 cm 44964.5 2 g 27.5 kg/m2 18 /min 97.5 [degF] 66 /min 95 % 95 % 101 mm[Hg] 72 mm[Hg] Kaylynn Fan NP [address] [facility], [address], [place], [address], [employer] 4 11:15:34 Date Recorded Body height Heart rate Respiratory rate Body temperature Oxygen saturation Oxygen saturation in Arterial blood by Pulse oximetry Systolic blood pressure Diastolic blood pressure Provider Name and Address Organization Details Last Updated DateTime 4 152.4 cm 79 /min 16 /min 98.3 [degF] 95 % 95 % 115 mm[Hg] 86 mm[Hg] CONRAD SMART NP [address] [facility], [address], [place], [address], [facility] 4 14:43:19 Date Recorded Body height Heart rate Respiratory rate Body temperature Oxygen saturation Oxygen saturation in Arterial blood by Pulse oximetry Systolic blood pressure Diastolic blood pressure Provider Name and Address Organization Details Last Updated DateTime 4 152.4 cm 76 /min 18 /min 97.8 [degF] 98 % 98 % 133 mm[Hg] 63 mm[Hg] CONRAD SMART NP [address] [facility], [address], [place], [address], [employer] 4 10:40:30 Date Recorded Body height Heart rate Respiratory rate Body temperature Oxygen saturation Oxygen saturation in Arterial blood by Pulse oximetry Systolic blood pressure Diastolic blood pressure Provider Name and Address Organization Details Last Updated DateTime 4 152.4 cm 98 /min 18 /min 97.7 [degF] 97 % 97 % 133 mm[Hg] 63 mm[Hg] CONRAD SMART NP [address] [facility], [address], [place], [address], [facility] 4 10:38:52 Date Recorded Body height Body weight Heart rate Respiratory rate Body temperature Oxygen saturation Oxygen saturation in Arterial blood by Pulse oximetry Systolic blood pressure Diastolic blood pressure Provider Name and Address Organization Details Last Updated DateTime 4 152.4 cm 80467.3 g 98 /min 18 /min 97.7 [degF] 97 % 97 % 133 mm[Hg] 63 mm[Hg] Kaylynn Fan NP [address] [facility], [address], [place], [address], [facility] 4 09:13:43 Social History Question Answer Notes LastModified by Organizat ion Details LastModified Time Tobacco Smoking Status Never Smoker Leandra zamorano, [employer] 10/26/2020 11:44:29 Do You Have An Advance Directive? No [email or web address] Information not available 12/01/2023 What Is Your Level Of Alcohol Consumption? None Information not available 10/26/2020 How Much Tobacco Do You Chew? None Information not available 10/26/2020 What Is Your Code Status? Full Code [email or web address] Information not available 12/01/2023 Do You Or Have You Ever Used E-cigarettes Or Vape? Never Used Electronic Cigarettes Information not available 10/26/2020 Where Do You Live? Apartment Daughter Is SATIN FINISHER [email or web address] Information not available 12/01/2023 Legal Guardian? No [email or web address] on not available 11/04/2020 Do You Have A Medical Power Of Bindery Machine Tender? Yes Rito Burch (daughter) Information not available 10/26/2020 What Was The Date Of Your Most Recent Tobacco Screening? 12/01/2023 [email or web address] Information not available 12/01/2023 Do You Or Have You Ever Used Smokeless Tobacco? Never Used Smokeless Tobacco Information not available 10/26/2020 Do You Use Any Illicit Or Recreational Drugs? No [email or web address] Information not available 12/01/2023 Sex: Unknown Functional Status None recorded. Mental Status None recorded. Family History Nothing Reported Notes:mother - Alzheimer dis ease, CAD, breast cancer, colon cancer, T2DM Medical History No medical history recorded. Gynecological HistoryNo gynecological history recorded. Obstetrics History GPAL:G 0 P 0 0 0 0 Immunizations Vaccine Type Date Status Note Provider Nam e and Address Organization Details Recorded Time pneumococcal polysaccharide PPV23 2 completed Rehana zamorano [facility] 06/19/2023 17:19:10 Td (adult), 5 Lf tetanus toxoid, preservative free, adsorbed 8 peri zamorano [facility] 09/15/2023 11:47:11 COVID-19, mRNA, LNP-S, bivalent, PF, 30 mcg/0.3 mL dose 2 peri zamorano [facility] 09/15/2023 11:47:25 zoster recombinant 2 peri zamorano [facility] 09/15/2023 11:47:41 Past Encounters Encounter ID Performer Location Encounter Start Date Encounter Closed Date Diagnosis/Indication Diagnosis SNOMED-CT Code Diagnosis ICD10 Code Diagnosis Note [id number] [address] [place], [place] [address] 10/26/2020 11:14:21 10/30/2020 12:11:26 Urinary tract infectious disease 87682063 N39.0 iv rocephin in hospitalno w transition ed to PO bactrim DS 1 tab BID x 7 days stop datemonito r for urinary s/s Arthritis 2607399 M19.90 monitor for pain Recurrent falls 20421908 2 R29.6 fall precaution s Asthenia 76471820 R53.1 PT/OT eval and txfall precaution s Coronary arteriosclerosis 83354235 I25.10 asa 81mg dailymonit or for s/slabs prn Cirrhosis of liver 007 K74.60 lactulose 45ml's 3x/day - tirate up to 2-3 bm dailymonit or mentationm onitor labs prn Chronic ki dney disease 293152893 N18.9 avoid nephrotixi c meds as ablelabs prn Type 2 sandrita betes mellitus 77909578 E11.9 lantus 24 units daily in amlispro sliding scale 3x/day before mealsmonit or for s/s of hyper/hypo glycemiabl ood sugars TID before meals Toxic encephalopathy 283 88630 G92 in hospital - resolvedmo nitor for sequela Hypertensive disorder 38 803094 I10 amlodipine 2.5mg dailyticag relor 90mg dailymetop rolol 12.5 dailylasix 20mg daily prnmonitor bpsmonitor labs prn Gastroesop hageal reflux disease 863971364 K21.9 famotidine 20mg dailymonit or for GI s/s Anemia 959678441 D64.9 ferrous fumarate 300mg dailymonit or cbc'smonit or for bleeding Seasonal allergy 8108558 04 J30.2 loratadine 10mg dailymonit or for s/s Irritable bowel syndrome 22588164 K58.9 rifaximin 550mg bidmonitor for GI s/smonitor bowels Insomnia 868188993 G47.0 0 trazodone 50mg at suppermoni tor sleep pattern [id number] [address] [place] [address] 10/29/2020 11:24:28 10/31/2020 09:02:43 Urinary tract infectious disease 34103093 N39.0 iv rocephin in hospitalno w transition ed to PO bactrim DS 1 tab BID x 7 days stop date 72monitor for urinary s/s - none so far Asthenia 51320399 R53.1 PT/OT eval and txfall precaution swith fall over the weekend; no apparent injury Recurrent falls 48351118 2 R29.6 fall precaution swith fall over the weekend Arthritis 8006331 M19.90 monitor for pain Coronary arteriosclerosis 09200975 I25.10 asa 81mg dailymonit or for s/slabs prn Cirrhosis of liver 007 K74.60 lactulose 45ml's 3x/day - tirate up to 2-3 bm dailymonit or mentationm onitor labs prn Chronic ki dney disease 583612171 N18.9 avoid nephrotixi c meds as ablelabs prn - bmp 11/05 Type 2 sandrita betes mellitus 22472053 E11.9 lantus 24 units daily in am - will increase dose to 30 units in amlispro sliding scale 3x/day before mealsmonit or for s/s of hyper/hypo glycemiabl ood sugars TID before meals - sugars trending in the 300s Toxic encephalopathy 283 63964 G92 in hospital - resolvedmo nitor for sequela Hypertensive disorder 38 015203 I10 amlodipine 2.5mg dailyticag relor 90mg dailymetop rolol 12.5 dailylasix 20mg daily prnmonitor bpsmonitor labs prn Gastroesop hageal reflux disease 064661540 K21.9 famotidine 20mg dailymonit or for GI s/s Anemia 112658960 D64.9 ferrous fumarate 300mg dailymonit or cbc's - today 9.5/25.1 slight drop will recheck 11/05monitor for bleeding Seasonal allergy 8644179 04 J30.2 loratadine 10mg dailymonit or for s/s Irritable bowel syndrome 43656656 K58.9 rifaximin 550mg bidmonitor for GI s/smonitor bowels Insomnia 587312276 G47.0 0 trazodone 50mg at suppermoni tor sleep pattern [id number] Huong Paulson MD [address] [place] [address] 10/30/2020 11:52:22 11/06/2020 10:48:27 Urinary tract infectious disease 69631315 N39.0 Continue Bactrim DS BID until 11/02, to complete 10 day course of abxs.Monit or for recurrent sxs. Asthenia 12567330 R53.1 Has had a fall since here.Very deconditio cathi.Needs PT/OT for strengthen ing, balance, gait training, safety and function.C ontinue fall precaution s.Monitor for safety. Recurrent falls 72473278 2 R29.6 As above. Coronary arteriosclerosis 28195589 I25.10 No current sxs.Contin ue metoprolol 12.5 mg qd, ticregelor 90 mg BID and ASA 81mg qd.MOnitor for sxs.F/U with cardio as planned on 11/20 at 8:15am. Cirrhosis of liver 007 K75.81 LFTs basically stable.Con tinue lactulose 45 ml TID, titrate to obtain 2-3 BMs/d.Cont inue rifaximin 550 mg BID.Monito r labs.F/U with GI as planned. Chronic ki dney disease 979222220 N18.31 A little worse yesterday than it has been, pushing po fluid.Cont inue to avoid nephrotoxi c meds as able.Monit or labs.Renal consult prn. Type 2 sandrita betes mellitus 89592740 E11.9 BS elevated since here.Lantu s was increased yest. from 24 U to 30 U qd.Continu e SSI.Contin ue to monitor accuchecks TID, adjust lantus as needed. Toxic encephalopathy 283 20931 G92 Acute sxs resolved, but still sl. confused.M onitor MS.Psych consult prn. Hypertensive disorder 38 044477 I10 Good control on current meds.Jennifer nue amlodipine 2.5 mg qd, metoprolol 12.5 mg qd and lasix 20 mg prn for leg edema.Chanel tor BP and labs. Gastroesop hageal reflux disease 096154234 K21.9 No current sxs.Contin ue famotidine 20 mg qd.Monitor for sxs. Anemia 777778157 D64.89 Continue ferrous fumarate 300 mg qd.H/H sl down yest.Monit or labs. Seasonal allergy 8801021 04 J30.2 Continue loratadine 10 mg qd.Monitor for ssxs Insomnia 264754232 G47.0 0 Continue trazodone 50 mg qdMonitor sleep patterns Lipoma of back 835698455 D17.1 Pt. c/o discomfort from this.Consi troy surgical consult.Sx at tx for now. [id number] CONRAD SMART, [place] [address] [place] [address] 11/06/2020 11:49:12 11/08/2020 09:17:41 Urinary tract infectious disease 53795333 N39.0 Completed Bactrim DS BID on ncoura ge fluidsMoni tor VS, recurrent sxs. Toxic encephalopathy 283 58981 G92 Acute sxs resolved, but still sl. confused.N eeds to continue to be watched closely due to liver and kidney diseaseMon itor MS.If pt. goes home today or tomorrow, recommend labs and follow up with PCP within a week. Asthenia 06112668 R53.1 Has had a fall since here.Very deconditio cathi.Contin ues with PT/OT for strengthen ing, balance, gait training, safety and function.I f goes home today or tomorrow, rehab recommendi ng 24 hr. care due to safety concerns.C ontinue fall precaution s.Monitor for safety. Chronic ki dney disease 637316896 N18.31 A little worse.Cont inue to encourage po fluids and avoid nephrotoxi c meds as able.As above, if pt. goes home, needs repeat labs within a week to trend levels.Willard al consult prn - unsure if pt. is followed by a renal team. Recurrent falls 61024566 2 R29.6 As above. Coronary arteriosclerosis 53954047 I25.10 No current sxs.Contin ue metoprolol 12.5 mg qd, ticregelor 90 mg BID and ASA 81mg qd.Monitor for sxs.F/U with cardio as planned on 11/20 at 8:15am. Cirrhosis of liver 007 K75.81 LFTs basically stable when compared to levels 6/19 in the hospital.C ontinue lactulose 45 ml TID, titrate to obtain 2-3 BMs/d.Cont inue rifaximin 550 mg BID.Monito r labs.F/U with GI as planned. Type 2 sandrita betes mellitus 22428857 E11.9 Lantus was increased from 24 U to 30 U qd with improvemen t in BS.Continu e SSI.Contin ue to monitor accuchecks TID, adjust lantus as needed. Hypertensive disorder 38 181340 I10 Good control on current meds.Jennifer nue amlodipine 2.5 mg qd, metoprolol 12.5 mg qd and lasix 20 mg prn for leg edema.Chanel tor BP and labs. Gastroesop hageal reflux disease 694159000 K21.9 No current sxs.Contin ue famotidine 20 mg qd.Monitor for sxs. Anemia 640787036 D64.89 Continue ferrous fumarate 300 mg qd.H/H stable.Mon itor labs. Seasonal allergy 1650818 04 J30.2 Continue loratadine 10 mg qd.Monitor for ssxs Insomnia 760786689 G47.0 0 Continue trazodone 50 mg qdMonitor sleep patterns Lipoma of back 179029957 D17.1 Pt. c/o discomfort from this.Consi troy surgical consult.Sx atic tx for now. [id number] CONRAD SMART, [place] [address] [place] [address] 11/08/2020 11:02:49 11/13/2020 14:12:27 Urinary tract infectious disease 73124843 N39.0 Completed Bactrim DS BID on ncoura ge fluids as outpt.Chanel tor VS, recurrent sxs. Toxic encephalopathy 283 87202 G92 Acute sxs resolved, but still sl. confused.N eeds to continue to be watched closely due to liver and kidney diseaseArline donahue MS.Will order CBC, CMP early next week with results to PCP - has appt. set for 11/14 Asthenia 42590831 R53.1 Has had a fall x 1 since here, no injury reported.Eliza latham cathi.Rehab recommendi ng 24 hr care upon discharge Chronic ki dney disease 163129198 N18.31 A little worse.Cont inue to encourage po fluids and avoid nephrotoxi c meds as able.Bactr im completed - not sure if this caused a bump in numbers.Co ntinue to encourage fluids.Edgar l order CMP for early next week with results to PCP for review at visit 11/14.Renal consult prn - unsure if pt. is followed by a renal team. Recurrent falls 29188985 2 R29.6 As above. Coronary arteriosclerosis 37117857 I25.10 No current sxs.Contin ue metoprolol 12.5 mg qd, ticregelor 90 mg BID and ASA 81mg qd.Monitor for sxs.F/U with cardio as planned on 11/20 at 8:15am. Cirrhosis of liver 007 K75.81 LFTs basically stable when compared to levels 10/20 in the hospital.C ontinue lactulose 45 ml TID, titrate to obtain 2-3 BMs/d.Cont inue rifaximin 550 mg BID.Monito r labs.F/U with GI as planned.Or dering CMP and NH3 for early next week with results to PCP for review at appt. 11/14. Type 2 sandrita betes mellitus 92355948 E11.9 Lantus was increased from 24 U to 30 U qd with some improvemen t in BS.Continu e SSI.Contin ue to monitor accuchecks as outpt, adjust lantus as needed. Hypertensive disorder 38 928062 I10 Good control on current meds.Jennifer nue amlodipine 2.5 mg qd, metoprolol 12.5 mg qd and lasix 20 mg prn for leg edema (has not used while here)Monit or BP and labs. Gastroesop hageal reflux disease 536744906 K21.9 No current sxs.Contin ue famotidine 20 mg qd.Monitor for sxs. Anemia 923880286 D64.89 Continue ferrous fumarate 300 mg qd.H/H stable.Mon itor labs as outpt. - CBC next week with results to PCP Seasonal allergy 4949642 04 J30.2 Continue loratadine 10 mg qd.Monitor for ssxs Insomnia 264894594 G47.0 0 Continue trazodone 50 mg qdMonitor sleep patterns Lipoma of back 519808728 D17.1 Pt. c/o discomfort from this.Consi troy surgical consult.Sx atic tx for now. Dizziness 025076625 R42 newer complaint here, but pt. states it is an old problem.Or thostatic VS stableAdd meclizine 25 q 8 hrs prnmonitor [id number] CONRAD SMART NP [address] [place] [address] 03/24/2023 14:15:41 03/25/2023 15:17:10 Diabetic ketoacidosis 317083332 E13.10 Responded well to insulin and fluidsMoni tor Type 2 sandrita betes mellitus 58800530 E11.9 A1C 6.7 -> 12.2 over the past 3 months.Con cern with med non compliance as requiring less insulin in the hospital compared to home doses.Lant us was decreased in hosp. from 44 units q HS to 20 units q HS.Lispro reduced from 12 units ac to 6 units ac. Plan -Carb control dietBS qid - ac, hsHold lispro for BS <100 Directions to change insulin:If morning BS >140, increase lantus by 2 units every night until morning BS <140.Adjus t lispro as needed. Asthenia 77945726 R53.1 PT OT eval and tx.Goal is to return home Hypertensive disorder 38 154240 I10 BP elevated in hospitalNo rvasc 10 mg qd addedConti nue metoprolol 12.5 mg qdMonitor BP and labs, adjust tx. prn Chronic ki dney disease 333192227 N18.31 Stage 3with SAM in hosp., responded well to IVF.Monito r labs q thursdayEnco urage po fluidsAvoi d nephrotoxi c meds as able. Cirrhosis of liver 007 K75.81 Autoimmune hepatitis/ cholangiti sContinue home meds:Ursod iol 500 mg bidCautiou s use of APAPMonito r LFTs/HN3 prn Insomnia 717528110 G47.0 0 Continue trazodone 100 mg qhsAlso on seroquel 12.5 mg bid prn - unclear as to why other than concern of metabolic/ hepatic encephalop athy - will keep x 14 days, monitor use and effect.Mon itor sleep patternsPs h eval prn. Irritable bowel syndrome 65269890 K58.9 Continue linzess 145 mg qd prn Gastroesop hageal reflux disease 892390297 K21.9 Currently c/o heartburnW ill give prilosec 20 mg x 1 dose nowContinu e pantoprazo le 40 mg qdMonitor sx. Coronary arteriosclerosis 06348490 I25.10 No current sxs.Contin ue metoprolol 12.5 mg qd, ASA 81mg qd.Monitor for sxs.F/U with cardio prn Seasonal allergy 8530231 04 J30.2 Continue loratadine 10 mg qd prnMonitor for ssxs Cerebrovas cular accident 741251881 I63.9 Continue ASA 81 mg qd.Not on a statin, suspect due to liver dz. [id number] [facility] [address] 03/30/2023 13:24:08 04/01/2023 10:50:50 Diabetic ketoacidosis 783767699 E13.10 Resolved inptMonito r as below.May need closer monitoring on d/c to assure appropriat e home use of insulin and home eating habits. Type 2 sandrita betes mellitus 69676945 E11.21 E11.65 HgA1C has been very variable over past few yrs. Was 7.7 in 04/2021, then 11.1 in 05/2022, then 7.0 in 11/2022, then 6.7 in 12/2022, now 12.2. Very strange.Si nce here sugars have ranged from 150 to 400, but averaging in the 200s.Only on insulin for tx.Will d/c scheduled mealtime insulin and change to SSI to cover for wide variation in sugars. will not use SS at bedtime. Will increase Lantus to 25U qdConsider adding a GLP-1 agonist for glycemic control and CAD risk reduction. A1C 6.7 -> 12.2 over the past 3 months.Ord er had been written to increase Lantus by 2U every night until FBS was <140, but it doesn't seem this was done.Will use relatively high dose SSI as pt had been getting 12U with meals at home.BS<15 0 no insulin, 150-199-4U , 200-249-6U , 250-299-8U , 300-349-10 U, 350-399-12 U, >399 14U and recheck in 1 hr.Needs endo f/u appt. Gastroesop hageal reflux disease 295566582 K21.9 No current sxs.Contin ue pantoprazo le 40 mg qdMonitor sxs. Asthenia 80309135 R53.1 Very deconditio cathi.Needs PT/OT for strengthen ing, balance, gait training, safety and function.C ontinue fall precaution s.Monitor for safety. Hypertensive disorder 38 702193 I10 A few borderline SBPs since here, but mostly good.Jennifer nue amlodipine 10 mg qd (just added inpt) and metoprolol 12.5 mg qd.Monitor BP and labs Chronic ki dney disease 108959323 N18.31 Back to baseline.C ontinue to avoid nephrotoxi c meds as able.Monit or labs.Renal f/u as planned Cirrhosis of liver 007 K75.81 Autoimmune hepatitis/ cholangiti sContinue Ursodiol 500 mg BIDCautiou s use of APAPHas hx of elevated ammonia, monitor if any MS changes.Mo nitor labsF/U with GI as planned. Insomnia 589844343 G47.0 0 Continue trazodone 100 mg qhs and seroquel 12.5 mg BID prnMonitor use and effect of seroquel after 14 days.Monit or sleep patternsPs [facility] eval prn. Irritable bowel syndrome 68913045 K58.9 Continue linzess 145 mg qd prnMonitor bowel habits. Coronary arteriosclerosis 23069024 I25.10 No current sxs.Contin ue metoprolol 12.5 mg qd and ASA 81 mg qd.Had been on Brilinta, unclear why stopped.Mo nitor for sxs.F/U with cardio as planned. Seasonal allergy 8684270 04 J30.2 Continue loratadine 10 mg qd prnMonitor for sxs Cerebrovas cular accident 266150485 I63.89 Continue meds as above.Not on a statin, suspect due to liver dz.Conside r restarting Brilinta.F /U with neuro f/u. [id number] CONRAD SMART NP [address] [address] 04/09/2023 13:22:22 04/15/2023 11:16:40 Diabetic ketoacidosis 106461965 E13.10 Resolved inptMonito r as below.May need closer monitoring on d/c to assure appropriat e home use of insulin and home eating habits. Type 2 sandrita betes mellitus 78067267 E11.21 E11.65 HgA1C has been very variable over past few yrs. Was 7.7 in 04/2021, then 11.1 in 05/2022, then 7.0 in 11/2022, then 6.7 in 12/2022, now 12.2. Very strange. Scheduled mealtime insulin was changed to SSI only due to variable BS readings.L antus increased to 25U qd last week, but review of MAR shows still on 20 units. Will increase to 25 units as FBS usually in 200sContin ue to monitor BS.Can consider adding a GLP-1 agonist for glycemic control and CAD risk reduction. SSI: BS<150 no insulin, 150-199-4U , 200-249-6U , 250-299-8U , 300-349-10 U, 350-399-12 U, >399 14U and recheck in 1 hr.Needs endo f/u appt. Gastroesop hageal reflux disease 865423882 K21.9 No current sxs.Contin ue pantoprazo le 40 mg qdMonitor sxs. Asthenia 03331535 R53.1 Appears she is not on rehab at this time.Monit or activity. Hypertensive disorder 38 277962 I10 A few borderline SBPs since here, but mostly good.Jennifer nue amlodipine 10 mg qd (just added inpt) and metoprolol 12.5 mg qd.Monitor BP and labs Chronic ki dney disease 530709612 N18.31 Back to baseline.C ontinue to avoid nephrotoxi c meds as able.Monit or labs - repeat BMP thursdayRena l f/u as planned Cirrhosis of liver 007 K75.81 Autoimmune hepatitis/ cholangiti sContinue Ursodiol 500 mg BIDCautiou s use of APAPHas hx of elevated ammonia, monitor if any MS changes.Mo nitor labsF/U with GI as planned. Insomnia 722819311 G47.0 0 Continue trazodone 100 mg qhs and seroquel 12.5 mg BID prnMonitor use and effect of seroquel after 14 days - only used once this monthMonit or sleep patternsPs [facility] eval prn. Irritable bowel syndrome 33167831 K58.9 Continue linzess 145 mg qd prnMonitor bowel habits. Coronary arteriosclerosis 79726517 I25.10 No current sxs.Contin ue metoprolol 12.5 mg qd and ASA 81 mg qd.Had been on Brilinta, unclear why stopped.Mo nitor for sxs.F/U with cardio as planned. Seasonal allergy 5848604 04 J30.2 Continue loratadine 10 mg qd prnMonitor for sxs Cerebrovas cular accident 144427183 I63.89 Continue meds as above.Not on a statin, suspect due to liver dz.Conside r restarting Brilinta.F /U with neuro f/u. [id number] CONRAD SMART [facility] [address] 04/14/2023 12:57:10 04/21/2023 14:16:07 Diabetic ketoacidosis 363622297 E13.10 Resolved inptMonito r as below.May need closer monitoring on d/c to assure appropriat e home use of insulin and home eating habits. Type 2 sandrita betes mellitus 09856001 E11.21 E11.65 HgA1C has been very variable over past few yrs. Was 7.7 in 04/2021, then 11.1 in 05/2022, then 7.0 in 11/2022, then 6.7 in 12/2022, now 12.2. Very strange. BS in better control, mostly 100s (am) -200s, occ. 300sContin ue:Lantus 25U qdLispro SSIAdd trulicty 0.75mg sq q wkContinue to monitor BS and adjust lantus and SSI with start of trulicity. SSI: BS<150 no insulin, 150-199-4U , 200-249-6U , 250-299-8U , 300-349-10 U, 350-399-12 U, >399 14U and recheck in 1 hr. Gastroesop hageal reflux disease 148394151 K21.9 No current sxs.Contin ue pantoprazo le 40 mg qdMonitor sxs. Asthenia 87615188 R53.1 ImprovedMo nitor activity.G oal remains ot return home. Hypertensive disorder 38 196160 I10 BP tending to run on the higher side of nl. Continue amlodipine 10 mg qd (just added inpt)Incre ase metoprolol 12.5 mg qd to bidMonitor BP and labs Chronic ki dney disease 668300575 N18.31 Back to baseline.C ontinue to avoid nephrotoxi c meds as able.Monit or labs - repeat CMP in amRenal f/u as planned Cirrhosis of liver 69308 007 K75.81 Autoimmune hepatitis/ cholangiti sContinue Ursodiol 500 mg BIDCautiou s use of APAPHas hx of elevated ammonia, monitor if any MS changes.Mo nitor labsF/U with GI as planned. Insomnia 131477490 G47.0 0 Continue trazodone 100 mg qhs and seroquel 12.5 mg BID prnMonitor use and effect of seroquel after 14 days - only used once this monthMonit or sleep patternsPs ych eval prn. Irritable bowel syndrome 46042048 K58.9 Continue linzess 145 mg qd prnMonitor bowel habits. Coronary arteriosclerosis 41515920 I25.10 No current sxs.Contin ue metoprolol 12.5 mg qd and ASA 81 mg qd.Had been on Brilinta, unclear why stopped.Mo nitor for sxs.F/U with cardio as planned. Seasonal allergy 5650170 04 J30.2 Continue loratadine 10 mg qd prnMonitor for sxs Cerebrovas cular accident 699789250 I63.89 Continue meds as above.Not on a statin, suspect due to liver dz.Conside r restarting Brilinta.F /U with neuro f/u. Anemia 289362019 D64.89 Repeat CBC x 1Prior notes reviewed, appears prior hgb +/- 9 [id number] Kaylynn Fan NP [address] [address] 04/16/2023 08:53:07 04/21/2023 14:39:18 Diabetic ketoacidosis 842266383 E13.10 Resolved inptMonito r as below.May need closer monitoring on d/c to assure appropriat e home use of insulin and home eating habits.soc ial services setting up vna services to prepare for home Type 2 sandrita anaides mellitus 52888540 E11.21 E11.65 HgA1C has been very variable over past few yrs. Was 7.7 in 04/2021, then 11.1 in 05/2022, then 7.0 in 11/2022, then 6.7 in 12/2022, now 12.2. Very strange. BS in better control, mostly [id number], occ. 300swill cont regimen below:Lant us 25U qdLispro SSISSI: BS<150 no insulin, 150-199-4U , 200-249-6U , 250-299-8U , 300-349-10 U, 350-399-12 U, >399 14U and recheck in 1 hrtrulicty 0.75mg sq q wk added hereContin ue to monitor BS and adjust lantus and SSI with start of trulicity. diabetic teaching with nsg for pt and family Gastroesop hageal reflux disease 299894702 K21.9 No current sxs.Contin ue pantoprazo le 40 mg qdMonitor sxs. Asthenia 57518981 R53.1 Improved, walking stable todayMonit or activity.G oal remains ot return home. Hypertensive disorder 38 452172 I10 BP tending to run on the higher side of nl,however bp of 164/78 prior to meds today, nsg will recheckhow ever overall, highContin ueamlodipi ne 10 mg qd (just added inpt)Incre ase metoprolol 12.5 mg qd to bidMonitor BP and labs Chronic ki dney disease 331241875 N18.31 Back to baseline.C ontinue to avoid nephrotoxi c meds as able.Monit or labs - repeat CMP in amRenal f/u as planned Cirrhosis of liver 007 K75.81 Autoimmune hepatitis/ cholangiti sContinueU rsodiol 500 mg BIDCautiou s use of APAPhx of elevated ammonia, monitor mental statusMoni tor labsF/U with GI as planned. Insomnia 872959638 G47.0 0 Continuetr azodone 100 mg qhs'seroqu el 25 mg BID prn until 04/21Monit or use and effect of seroquel after 14 days - only used once this monthMonit or sleep patternsPs h eval prn. Irritable bowel syndrome 79589782 K58.9 Continueli nzess 145 mg qd prnMonitor bowel habits. Coronary arteriosclerosis 17715152 I25.10 No current sxs.Contin ue metoprolol 12.5 mg qd and ASA 81 mg qd.Had been on Brilinta, unclear why stopped.Mo nitor for sxs.F/U with cardio as planned. Seasonal allergy 3125985 04 J30.2 Continuelo ratadine 10 mg qd prnMonitor for sxs Cerebrovas cular accident 555954740 I63.89 Continue meds as above.Not on a statin, suspect due to liver dz.Conside r restarting Brilinta.F /U with neuro f/u. Anemia 837689541 D64.89 labs ordered weeklyPrio r notes reviewed, appears prior hgb +/- 9 [id number] Kaylynn Fan, SMILEY [address] [address] 04/22/2023 09:26:11 04/23/2023 19:40:35 Diabetic ketoacidosis 864384585 E13.10 Resolved inptMonito r as below.May need closer monitoring on d/c to assure appropriat e home use of insulin and home eating habits.soc ial services setting up vna services to prepare for home however report that daughter had recent surgery and not able to care for her yetplan is to go home with daughter Type 2 sandrita betes mellitus 04082362 E11.21 E11.65 HgA1C has been very variable over past few yrs. Was 7.7 in 04/2021, then 11.1 in 05/2022, then 7.0 in 11/2022, then 6.7 in 12/2022, now 12.2. Very strange. BS in better control, mostly [id number], occ. 300swill cont regimen below:Lant us 25U qdLispro SSISSI: BS<150 no insulin, 150-199-4U , 200-249-6U , 250-299-8U , 300-349-10 U, 350-399-12 U, >399 14U and recheck in 1 hrtrulicty 0.75mg sq q wk added hereContin ue to monitor BS and adjust lantus and SSI with start of trulicity. diabetic teaching with nsg for pt and family Gastroesop hageal reflux disease 180813720 K21.9 No current sxs.Contin ue pantoprazo le 40 mg qdMonitor sxs. Asthenia 32107927 R53.1 Improved, walking stable todayMonit or activity.G oal remains ot return home. Hypertensive disorder 38 559923 I10 BP much better 133s/51 prior to meds today, nsg will recheckhow ever overall, highContin ueamlodipi ne 10 mg qd (just added inpt)metop rolol 12.5 mg qd to bid (was increased) Monitor BP and labs Chronic ki dney disease 121127173 N18.31 Back to baseline.C ontinue to avoid nephrotoxi c meds as able.Monit or labs - repeat CMP in amRenal f/u as planned Cirrhosis of liver 007 K75.81 Autoimmune hepatitis/ cholangiti sContinueU rsodiol 500 mg BIDCautiou s use of APAPhx of elevated ammonia, monitor mental statusMoni tor labsF/U with GI as planned. Insomnia 016314074 G47.0 0 Continuetr azodone 100 mg qhs'seroqu el 25 mg BID prn until 04/21 and dc'dhas not neededMoni tor sleep patternsPs [facility] eval prn. Irritable bowel syndrome 15969215 K58.9 Continueli nzess 145 mg qd prnMonitor bowel habits. Coronary arteriosclerosis 04054040 I25.10 No current sxs.Contin uemetoprol ol 12.5 mg bidASA 81 mg qd.Had been on Brilinta, unclear why stopped.Mo nitor for sxs.F/U with cardio as planned. Seasonal allergy 1667399 04 J30.2 Continuece tirizine 10 mg qd prnMonitor for sxs Cerebrovas cular accident 659319229 I63.89 Continue meds as above.Not on a statin, suspect due to liver dz.Conside r restarting Brilinta.F /U with neuro f/u. Anemia 206198413 D64.89 labs monitoredP rior notes reviewed, appears prior hgb +/- 9 [id number] Yovanny Golden MD [facility] [address] [address] 04/28/2023 12:58:57 05/07/2023 10:24:04 Impaired cognition 290931106 R41.89 poor insight with HCP invDasha he who is HCP is present and states will be taking her mother home today. States because she will loose her apartment if she does not. Patient is not medically cleared for discharge with social work involved to determine services and safety of eventual discharge. Extended discussion with HCP who insists on taking patient homePatien t will be taken AMA from facility by HCPwill allow medication s at discharge in attempt to keep situation as stable as ableaddend um - after extended discussion again with HCP decision is to stay at facility currently will not leave AMA and will discuss with SW tomorrow Diabetic ketoacidosis 42 7763588 E13.10 see aboveheads up to PCPrecurre nt recent hospitaliz ation for DKA if patient does leave AMA Gastroesop hageal reflux disease 287691407 K21.9 pantoprazo le 40 mg qd Asthenia 15865527 R53.1 remains requiring supervisio n [id number] Huong Paulson MD [facility] [address] [address] 05/11/2023 13:07:43 05/19/2023 10:06:38 Asthenia 45518661 R53.1 Very deconditio cathi.Needs PT/OT for strengthen ing, balance, gait training, safety and function.C ontinue fall precaution s.Monitor for safety. Type 2 sandrita betes mellitus 08557110 E11.21 E11.65 Sugars have mostly been on the low side since her return, with one reading >400 and a few >200, but mostly <150. When she was here before she was on a relatively high dose SSI as follows:BS <150 no insulin, 150-199-4U , 200-249-6U , 250-299-8U , 300-349-10 U, 350-399-12 U, >399 14U and recheck in 1 hr.Will change to standard SSI.Contin ue Lantus 25 U qhs.Needs endo f/u appt. Gastroesop hageal reflux disease 948436417 K21.9 No current sxs.Contin ue pantoprazo le 40 mg qdMonitor sxs. Hypertensive disorder 38 666039 I10 BP in adequate control.Co ntinue amlodipine 10 mg qd and metoprolol 12.5 mg BIDMonitor BP and labs Chronic ki dney disease 022512654 N18.31 At baselineCo ntinue to avoid nephrotoxi c meds as able.Monit or labs.Renal f/u as planned Cirrhosis of liver 30111 007 K75.81 Hx of autoimmune hepatitis/ cholangiti sContinue Ursodiol 500 mg BIDCautiou s use of APAPAmmoni a WNL inpt.Monit or if any MS changes.Mo nitor labsF/U with GI as planned. Insomnia 636477731 G47.0 0 Continue trazodone 100 mg qhs.Monito r sleep patternsPs ych eval prn. Irritable bowel syndrome 34234375 K58.9 Continue linzess 145 mg qd prnMonitor bowel habits. Coronary arteriosclerosis 39288801 I25.10 No current sxs.Contin ue metoprolol 12.5 mg qd and ASA 81 mg qd.Monitor for sxs.F/U with cardio as planned. Seasonal allergy 0829315 04 J30.2 Continue cetirizine 10 mg qd prnMonitor for sxs Cerebrovas cular accident 155350323 I63.89 Continue meds as above.Not on a statin, suspect due to liver dz.Conside r restarting Brilinta.F /U with neuro f/u. Chronic pain 80295525 G8 9.29 Looks like tramadol was started when she was here before, only 15 tabs dispensed on 03/29, so doesn't seem like she was really taking it. Will d/c.Contin ue APAP 500 mg q 6 hrs prn.Monito r Vitamin D deficiency 347 22424 E55.9 Continue cholecalci ferol 2000 IU qd.Monitor levels prn. Impaired cognition 22056 6002 R41.89 Continues at baselineCo ntinue supportive care, expect decline.HC P invokedMon itor mood and behaviors. Psych consult prn. [id number] Kaylynn Fan NP [address] [address] 05/14/2023 18:29:03 05/19/2023 15:09:52 Asthenia 50884474 R53.1 Very deconditio cathi.PT/OT for strengthen ing, balance, gait training, safety and function.C ontinue fall precaution s.Monitor for safety. Type 2 sandrita betes mellitus 02296782 E11.21 E11.65 BS controlled Insulin SSI standardLa ntus 25 U qhs.Needs endocrine f/u appt. Hypertensive disorder 38 952500 I10 BP in adequate control.Co ntinueamlo dipine 10 mg qdmetoprol ol 12.5 mg BIDMonitor BP and labs Impaired cognition 08345 6002 R41.89 Continues at baselineCo ntinue supportive care, expect decline.HC P invokedMon itor mood and behaviors. Psych consult prn. Gastroesop hageal reflux disease 423215797 K21.9 No current sxs.Contin uepantopra zole 40 mg qdMonitor sxs. Cirrhosis of liver 007 K75.81 Hx of autoimmune hepatitis/ cholangiti salk phos chronicall y elevated per noteContin ue Ursodiol 500 mg BIDCautiou s use of APAPAmmoni a WNL inpt.Monit or if any MS changes.Mo nitor labsF/U with GI as planned. Cough 50609507 R05.9 coughing episode with dinnerwill order due to resp illness in facility and coughcxr 2 view cough ro pna asprobitus sin 10 ml po q 4 hours sex89-6-6 liters o2 sat >90%covid swab todaycovid , RSV, FLU send outmonitor [id number] Kaylynn Fan NP [address] [address] 05/22/2023 10:53:46 05/26/2023 13:27:57 Cough 56987246 R05.9 cough resolvedwi ll order due to resp illness in facility and coughcxr 2 view cough ro pna asprobitus sin 10 ml po q 4 hours qpo11-1-0 liters o2 sat >90%covid swab todaycovid , RSV, FLU send outmonitor Asthenia 27428900 R53.1 Very deconditio cathi.PT/OT for strengthen ing, balance, gait training, safety and function.C ontinue fall precaution s.Monitor for safety. Type 2 sandrita carlos mellitus 49744169 E11.21 E11.65 she is noncomplia nt at timesBS controlled Insulin SSI standardLa ntus 25 U qhs.Needs endocrine f/u appt. Hypertensive disorder 38 754123 I10 BP in adequate control, bp slightly high 142/70 will monitorCon tinueamlod ipine 10 mg qdmetoprol ol 12.5 mg BIDMonitor BP and labsbp daily x 5 days and reassess if increased meds needed Impaired cognition 90387 6002 R41.89 Continues at baselineCo ntinue supportive care, expect decline.HC P invokedMon itor mood and behaviors. Psych consult prn. Gastroesop hageal reflux disease 666726304 K21.9 No current sxs.Contin uepantopra zole 40 mg qdMonitor sxs. Cirrhosis of liver 007 K75.81 Hx of autoimmune hepatitis/ cholangiti salk phos chronicall y elevated per noteContin ueUrsodiol 500 mg BIDCautiou s use of APAPAmmoni a WNL inpt.Monit or if any MS changes.Mo nitor labsF/U with GI as planned. [id number] Kaylynn Fan NP [address] [address] 05/28/2023 14:27:53 06/02/2023 14:35:50 Cough 02874187 R05.9 cough occ with fatigue and poor po x 2 dayswill order due to resp illness in facility and coughcxr 2 view cough ro pna asprobitus sin 10 ml po q 4 hours prnpush po fluids > 2 liters/24 -6- 4 liters o2 sat >90%add endum 05/28 covid swab positive todaycovid , RSV, FLU send out pendingmon itor Asthenia 95109013 R53.1 Very deconditio cathi.PT/OT for strengthen ing, balance, gait training, safety and function.C ontinue fall precaution s.Monitor for safety. Type 2 sandrita carlos mellitus 89151061 E11.21 E11.65 she is noncomplia nt at timesBS controlled Insulin SSI standardLa ntus 25 U qhs.Needs endocrine f/u appt.BS tid ac and qhs with decrease in eating at times Hypertensive disorder 38 335318 I10 BP in adequate control, bp high 176/99 hr given metoprolol 12.5 mg po x 1 now and plan to recheck bp in 2 hours Continueam lodipine 10 mg qd1/25 dc metoprolol 12.5 mg BID1/25 start metoprolol tartate 25 mg po bidMonitor BP and labsbp daily x 5 days and reassess if increased meds needed Impaired cognition 20239 6002 R41.89 Continues at baselineCo ntinue supportive care, expect decline.HC P invokedMon itor mood and behaviors. Psych consult prn. Gastroesop hageal reflux disease 884038371 K21.9 No current sxs.Contin uepantopra zole 40 mg qdMonitor sxs. Cirrhosis of liver 007 K75.81 Hx of autoimmune hepatitis/ cholangiti salk phos chronicall y elevated per noteContin ueUrsodiol 500 mg BIDCautiou s use of APAPAmmoni a WNL inpt.Monit or if any MS changes.Mo nitor labsF/U with GI as planned. COVID-19 507749879 U07.1 cough occ with fatigue and poor po x 2 dayscxr 2 recently done negative for pnarobitus sin 10 ml po q 4 hours prnpush po fluids > 2 liters/24 fansf75-0- 4 liters o2 sat >90%add endum 05/28 covid swab positive todaycovid , RSV, FLU send out pending sent on 05/28 amcovid precaution s per facility protocolpa xlovid 150mg/100 mg po bid x 5 days(due to gfr approx 30 will start 1/2 dose)benzo jay 100 mg po tid x 7 dayszofran 4 mg po q 6 hours prn nauseabmp and cbc weekly on mondays x 2monitor [id number] CONRAD SMART NP [address] [address] 06/02/2023 13:32:52 06/10/2023 16:59:22 Asthenia 06484440 R53.1 Very deconditio cathi.PT/OT for strengthen ing, balance, gait training, safety and function.C ontinue fall precaution s.Monitor for safety. Type 2 sandrita carlos mellitus 91754575 E11.21 E11.65 BS low on most recent BMP - 31.AM BS here mostly in 100s, but I dont think they are true fasting sugars.Sohail tus dosed at HSUnclear if getting HS snack Plan -Needs HS snackCheck 6 am BS x 3 days, record in MAR.If BS remain low, may consider changing lantus to am and or reducing dose.Monit or closely. Hypertensive disorder 38 277283 I10 Still tends to run on the high side.Plan -continue amlodipine 10 mg qdmetoprol ol tartate 25 mg po bid No change at this time, consider adjustment when over covid and stableCont inue to monitor BP and labs Impaired cognition 07361 6002 R41.89 Continues at baselineCo ntinue supportive care, expect decline.HC P invokedMon itor mood and behaviors. Psych consult prn. Gastroesop hageal reflux disease 498240477 K21.9 No current sxs.Contin uepantopra zole 40 mg qdMonitor sxs. Cirrhosis of liver 007 K75.81 Hx of autoimmune hepatitis/ cholangiti salk phos chronicall y elevated per noteContin ueUrsodiol 500 mg BIDCautiou s use of APAPAmmoni a WNL inpt.Monit or if any MS changes.Mo nitor labsF/U with GI as planned. COVID-19 396351526 U07.1 New dx. 05/28/23cou gh, fatigue and poor po x 2 days Due to comorbidit ies, paxlovid 150 mg bid x 5 days started, last dose tomorrow.C urrently in isolation, clinically looks good, sx. mild so far. Continue supportive meds:robit ussin 10 ml po q 4 hours prnbenzona te 100 mg po tid x 7 dayszofran 4 mg po q 6 hours prn nausea Continue to push po fluids > 2 liters/24 qoefs44-1- 4 liters prn for O2 sat >90%bmp and cbc weekly on mondays x 2monitor closley for decompensa tion. Leukocytosis 987177675 D 72.829 13.1Covid positive, but no s/s gross co-infecti onCXR neg. x 2No feversRepe at CBC nitor Chronic ki dney disease 392973951 N18.31 Bump up in Bun/Cr., currently 49/2.49Pus h fluids, goal>2L/dC ontinue to avoid nephrotoxi c meds as able.Monit or labs - repeat BMP 2/1Renal f/u as planned [id number] CONRAD SMART NP [address] [address] 06/04/2023 13:57:12 06/11/2023 13:22:53 COVID-19 600438679 U07.1 New dx. 05/28/23cou gh, fatigue and poor po x 2 days, now much improved. Due to comorbidit ies, paxlovid 150 mg bid x 5 days started, tx. now complete.C urrently in isolation, clinically looks good, sx. remain mild. Continue supportive meds:robit ussin 10 ml po q 4 hours prnbenzona te 100 mg po tid x 7 dayszofran 4 mg po q 6 hours prn nausea Continue to encourage fluids > 2 liters/24 owepd15-8- 4 liters prn for O2 sat >90%bmp and cbc weekly on mondays x 2monitor closley for decompensa tion. Leukocytosis 710928904 D 72.829 13.1was to be rechecked today, but does not appear to have been done.Covid positive, but no s/s gross co-infecti onCXR neg. x 2No feversWill repeat CBC tor Chronic ki dney disease 915211245 N18.31 Bump up in Bun/Cr., 49/2.49 -> 44/2.07 todayEncou raging fluids, goal>2L/dC ontinue to avoid nephrotoxi c meds as able.Monit or labs - repeat BMP thursdayRena l f/u as planned Type 2 sandrita betes mellitus 00397108 E11.21 E11.65 BS low on most recent BMP - 31.AM BS here mostly in 100s, but I dont think they are true fasting sugars.Fawn cking 6 am BS x 3 -> 92, 91 so farNeeds HS snack - orderedcon tinue to monitor BS, intake If BS remain low, may consider changing lantus to am and or reducing dose.Monit or closely. [id number] Kaylynn Fan, SMILEY [address] [place] [address] 06/05/2023 15:11:11 06/11/2023 13:39:07 COVID-19 142678679 U07.1 covid positive on resp panel. 05/28/23wit h sx of cough, fatigue and poor po x 2 days, now much improved. 06/05 covid neg today and off isolations he completed a course of paxlovid Continue supportive meds:robit ussin 10 ml po q 4 hours prnbenzona te 100 mg po tid x 7 days from start datezofran 4 mg po q 6 hours prn nausea Continue to encourage fluids > 2 liters/24 csyle42-1- 4 liters prn for O2 sat >90%bmp and cbc weekly on mondays x 2monitor jeffy for decompensa tion. 06/05 requests flonase for nasal congestion and ordered bid Leukocytosis 661612975 D 72.829 13.1 on 06/01wbc requested but not resulted on 06/04, bmp was done on ovid positive, but no s/s gross co-infecti onCXR neg. x 2No feversWill repeat CBC tor for s/s of infection Chronic ki dney disease 258046489 N18.31 Bump up in Bun/Cr., 49/2.49 -> 44/2.07Enc ouraging fluids, goal>2L/dC ontinue to avoid nephrotoxi c meds as able.Monit or labs - repeat BMP s to be resolving as covid is resolving and appetite is backRenal f/u as planned Type 2 sandrita betes mellitus 76596580 E11.21 E11.65 BS low on most recent BMP - 31. on 1/29AM BS here mostly in 100s, but I dont think they are true fasting sugars.BS stable in amNeeds HS snack which is orderedcon tinue to monitor BS, intake contlantus 25 units sc qhsISSIf BS remain low, may consider changing lantus to am and or reducing dose. felt likely to covid with change in eating latelyMoni tor closely. [id number] CONRAD SMART NP [address] [place] [address] [place] [address] 06/09/2023 10:18:21 06/11/2023 14:22:01 COVID-19 182342372 U07.1 New dx. 05/28/23cou gh, fatigue and poor po x 2 days, now resolved.D ue to comorbidit ies, paxlovid 150 mg bid x 5 days started, tx. now complete.D oing better, no residual sx., monitor for sequelae. Leukocytosis 711654758 D 72.829 Resolved - 13.1 -> 9.3CXR neg. x 2No feversMoni tor Chronic ki dney disease 181336219 N18.31 Bump up in Bun/Cr. last week, now resolved.M aintain fluidsCont inue to avoid nephrotoxi c meds as able.Renal f/u as planned Type 2 sandrita betes mellitus 88665354 E11.21 E11.65 Decent control while here.FBS low on occasion, now getting HS snack with improvemen t in AM BS. Continue:L antus 25 units q HSLispro SSIHS snack Continue to monitor BS Hypertensive disorder 38 415519 I10 Still tends to run on the higher side of nl.Plan -continue amlodipine 10 mg qdmetoprol ol tartate 25 mg po bid (increased dose) Continue to monitor VS, if BP remains elevated, consider increasing metoprolol or adding another agent. Asthenia [id number] R53.1 Has worked with rehab, meeting goals for d/c home.Jennifer nue fall precaution s.Monitor for safety. Impaired cognition 77658 5420 R41.89 Continues at baselineCo ntinue supportive care, expect decline.HC P invokedMon itor mood and behaviors. Psych consult prn. Gastroesop hageal reflux disease 091050191 K21.9 No current sxs.Contin uepantopra zole 40 mg qdMonitor sxs. Cirrhosis of liver 007 K75.81 Hx of autoimmune hepatitis/ cholangiti salk phos chronicall y elevated per noteContin ueUrsodiol 500 mg BIDCautiou s use of APAPAmmoni a WNL inpt.Monit or if any MS changes.Mo nitor labsF/U with GI as planned. Anemia 191222121 D64.89 Usual Hgb 8-9Level 7 todayNo s/s active bleed.Plan -Hold off on d/c todayRepea t [facility] stoolsCons ider holding ASAIf H/H drops further or if symptomati c - transfuseI f stable, plan for d/c with labs monitoring as outpt. Coronary arteriosclerosis 17211627 I25.10 No current sxs.Contin ue metoprolol 25 mg bid (dose increased for BP control) and ASA 81 mg qd.Had been on Brilinta, unclear why stopped.Mo nitor for sxs.F/U with cardio as planned. Irritable bowel syndrome 24500481 K58.9 Continue linzess 145 mg qd prnMonitor bowel habits. Seasonal allergy 0330865 04 J30.2 Continue flonase bid and zyrtec 10 mg qd prnMonitor for sxs [id number] Kaylynn Fan [facility] [address] [address] 06/10/2023 15:36:39 06/15/2023 15:05:32 Anemia 472473915 D64.89 Prior notes reviewed, appears prior baseline hgb +/- 9 unclear if or where she is bleeding from. 06/10 send to ER for critical ow hgb 6.6 with dizziness this am [id number] CONRAD SMART NP [facility] [address] 06/16/2023 10:57:57 06/18/2023 19:55:24 Anemia 215590176 D64.89 Quick drop in H/H prompting transfer to ER.Seen by GI - had EGD by Dr. 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 H/H stabilized - hgb 9.7 upon discharge. Plan -CBC q thursdayHeme test stools prnConside r holding ASAFollow up with GI re: bx. resultsIf H/H drops further or if symptomati c - transfuse/ ER Acquired arteriovenous malformation 7123439369 108 I99.8 noted on EGD, s/p APCmonitor Update GI with concerns Vascular e ctasia of gastric antrum 95424499 K31.819 noted on EGD, s/p APCmonitor Update GI with concerns Impaired cognition 04767 6002 R41.89 Continues at baselineCo ntinue supportive care, expect decline.HC P invokedMon itor mood and behaviors. Psych consult prn. COVID-19 851592559 U07.1 New dx. 05/28/23Com pleted paxlovidMi nimal sx.Now recoveredM onitor Chronic ki dney disease 884185773 N18.31 At baselineMa intain fluidsCont inue to avoid nephrotoxi c meds as able.Renal f/u as planned Type 2 sandrita betes mellitus 59346770 E11.21 E11.65 Decent control while here.FBS low on occasion, now getting HS snack with improvemen t in AM BS. Continue:L antus 25 units q HSLispro SSIHS snack Continue to monitor BS Hypertensive disorder 38 851215 I10 Was running high prior to this hosp.Today BP on the low side. Asymptomat ic.Appears metoprolol dose was reduced in the hospital was 25 mg bid, now 12.5 mg qd Plan -continue: amlodipine 10 mg qdmetoprol ol tartate 12.5 mg qd Monitor VS qd, adjust meds prn Asthenia 60106971 R53.1 PT OT eval and tx., was doing well prior to hospitaliz ationPlan is to discharge home. Continue fall precaution s.Monitor for safety. Gastroesop hageal reflux disease 696357474 K21.9 See aboveConti nue pantoprazo le 40 mg qdMonitor sxs. Cirrhosis of liver 007 K75.81 Hx of autoimmune hepatitis/ cholangiti salk phos chronicall y elevated per noteContin ueUrsodiol 500 mg BIDCautiou s use of APAPAmmoni a WNL inpt.Monit or if any MS changes.Mo nitor labsF/U with GI as planned. Coronary arteriosclerosis 35616124 I25.10 No current sxs.Contin ue metoprolol 12.5 mg qd and ASA 81 mg qd.Had been on Brilinta, unclear why stopped.Mo nitor for sxs.F/U with cardio as planned. Irritable bowel syndrome 74298760 K58.9 Continue linzess 145 mg qd prnMonitor bowel habits. Seasonal allergy 1728803 04 J30.2 Continue flonase bid and zyrtec 10 mg qd prnMonitor for sxs [id number] Yovanny Golden MD [address] [address] 06/22/2023 09:36:52 06/23/2023 10:55:20 Upper gastrointestinal bleeding 68539247 K92.89 see HPIHb=6.7 on presentati on, transfused with 2 units pRBC, given IV iron and supported with IVFEval by GI underwent EGD positive for esophagiti s and AVMStarted on carafate and continued on PPI. Follow up with GI in placemonit or cbc and need for further supportupd ate GI with concerns with f/u in place Anemia 958616980 D64.89 see abovemonit or cbc as above Acquired arteriovenous malformation 6628108450 108 I99.8 added to PMH post EGD Vascular e ctasia of gastric antrum 78622386 K31.819 noted on EGD, s/p APCmonitor Update GI with concerns Impaired cognition 18226 6002 R41.89 unsure of baselineHC P invokedpsy ch eval prncontinu e supportive care COVID-19 893584625 U07.1 recent dx now recovered Chronic ki dney disease 563982735 N18.31 monitor renal functionav oid nephrotoxi c meds as ablenephro consult prn Type 2 sandrita betes mellitus 37021293 E11.21 E11.65 poor control in communitym onitor at facility onlantus, ins SSmonitor need to titrate Hypertensive disorder 38 255046 I10 recent dose reductionw ill increase back tometoprol ol 25 mg po bidcontinu e norvasc 10 mg qdmonitor bp and need to titrate Asthenia 26661580 R53.1 PT OT eval and treatmonit or need for increased support in community Gastroesop hageal reflux disease 833495703 K21.9 see above onpantopra zole 40 mg qdmonitor sx Cirrhosis of liver 007 K75.81 appears autoimmune etiologyad ded to PMHf/u with GI in place Irritable bowel syndrome 03713299 K58.9 linzess 145 mg qd prnmonitor for effect [id number] Kaylynn Fan NP [address] [address] [place] [address] 06/26/2023 08:20:31 06/30/2023 13:26:48 Hypertensive disorder 66389507 I10 recent dose reductionw ill increase back tometoprol ol 25 mg po bidcontinu e norvasc 10 mg qdmonitor bp and need to titrate Anemia 008128029 D64.89 had a drop in H/H prompting transfer to [facility] by GI - had EGD by Dr. 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 results outpt Acquired arteriovenous malformation 2908901686 108 I99.8 noted on EGD, s/p APCmonitor fu with GI outpt Vascular e ctasia of gastric antrum 99775038 K31.819 noted on EGD, s/p APCmonitor fu outpt with GI Impaired cognition 09255 6002 R41.89 Continues at baselineCo ntinue supportive care, expect decline.HC P invokedMon itor mood and behaviors. Psych consult prn. Chronic ki dney disease 752905890 N18.31 At baselineMa intain fluidsCont inue to avoid nephrotoxi c meds as able.Renal f/u outpt Type 2 sandrita betes mellitus 96229053 E11.21 E11.65 Decent control while here.FBS low on occasion, now getting HS snack with improvemen t in AM BS. Continue:L antus 25 units q HSLispro SSI at home with daughter's helpHS snack Continue to monitor BS at homeVNA to monitor at home outpt Asthenia 76479557 R53.1 Hannah is at baselineCo ntinue fall precaution s at home Gastroesop hageal reflux disease 968546755 K21.9 See aboveConti nue pantoprazo le 40 mg qdMonitor sxs. Cirrhosis of liver 007 K75.81 Hx of autoimmune hepatitis/ cholangiti salk phos chronicall y elevated per noteContin ueUrsodiol 500 mg BIDCautiou s use of APAPAmmoni a WNL inpt.F/U with GI as planned outpt Coronary arteriosclerosis 14626806 I25.10 No current sxs.Contin uemetoprol ol 25 bidASA 81 mg qd.Had been on Brilinta, unclear why stopped.Mo nitor for sxs.F/U with cardio as planned outpt and pcp Irritable bowel syndrome 56429163 K58.9 Continueli nzess 145 mg qd prnMonitor bowel habits outpt with pcp Seasonal allergy 2372268 04 J30.2 Continuefl onase bidzyrtec 10 mg qd prnMonitor for sxs outpt with pcp [id number] CONRAD SMART NP [address] [address] 12/01/2023 15:38:50 12/02/2023 13:06:35 Chronic kidney disease 040176867 N18.31 With SAM in hosp., treated with IVF and Sodium bicarb with improvemen t ( Baseline 1.2 - 1.6, as high as 2.6, improved to 2).Maintai n fluidsCont inue NaBicarb 650 mg bid - adjust prnContinu e to avoid nephrotoxi c meds as able.Monit or labs - BMP q thursday x 3Follow up with renal as needed. Closed fra cture of neck of femur 231712368 S72.002A s/p fall resulting in left intertroch anteric fx.Underwe nt ORIF 11/26/[address] Peñaloza.PT OT eval and tx.On heparin 5000 U q8 hrs for ACAvoiding APAP due to liver dz., limit to 650 mg bid prnContinu e oxycodone 5 mg q6 hr prn - monitor use and effect, adjust as needed.WBA TStaples out in 2 wksFollow up with Ortho 4-5 wks., update with concerns.l axatives available prn for constipati on - monitor need to schedule/a djust.Goal is to return home. Hypertensive disorder 38 687632 I10 continue:a mlodipine 5 mg qdMonitor VS qd, adjust meds prn Anemia 302008989 D64.89 History of - was seen by GI in past - had EGD by Dr. 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 Continue:F e 325 mg qdVit C 500 mg qdCarafate 1 gm bidProtoni x 40 mg qdMonitor CBC q thursday x 3 - higher bleeding risk due to current heparin use as well as ASAMonitor for s/s active bleedFollo w up with GI prn, update with concerns. Type 2 sandrita betes mellitus 82846828 E11.21 E11.65 Decent control during last visit hereContin ue:Lantus 15 units q HSLispro SSI TIDJanuvia 50 mg qdA1C x 1 in amContinue to monitor BS, adjust meds prnCarb control diet Irritable bowel syndrome 74871428 K58.9 Continue linzess 145 mg qd prnMonitor bowel habits. Gastroesop hageal reflux disease 762834609 K21.9 See aboveConti nue pantoprazo le 40 mg qdMonitor sxs. Seasonal allergy 4163466 04 J30.2 Continue flonase bidMonitor for sxs Cirrhosis of liver 007 K75.81 Hx of autoimmune hepatitis/ cholangiti salk phos chronicall y elevated per hx.Continu eUrsodiol 500 mg BIDCautiou s use of APAP - will limit to 650 mg bid prnMonitor if any MS changes.Mo nitor labsF/U with GI as planned. Cerebrovas cular accident 004217780 I63.89 Continue meds as above.Not on a statin, suspect due to liver dz.Continu e ASA 81 mg qdF/U with neuro f/u. [id number] CONRAD SMART NP [address] [address] 12/03/2023 10:12:28 12/04/2023 15:19:49 Type 2 diabetes mellitus 74230118 E11.21 E11.65 Will continue to monitor BS, decent control so far, BS mostly 100s-200sC ontinue:La ntus 25U qdtrulicty 0.75mg sq q wkLispro SSIMonitor FBS and labs. Gastroesop hageal reflux disease 830273152 K21.9 Asymptomat ic.Continu e pantoprazo le 40 mg qdMonitor sxs. Asthenia 28949748 R53.1 Continue to work with PT/OTMonit or activity.G oal remains ot return home. Hypertensive disorder 38 277859 I10 Continue amlodipine 10 mg qd and metoprolol 12.5 mg bidMonitor BP and labs Cirrhosis of liver 94688 007 K75.81 Due to autoimmune Continue Ursodiol 500 mg BIDLimit use of APAPHas hx of elevated ammonia.Mo kurtis if any MS changes.Mo kurtis labsF/U with GI as planned. Irritable bowel syndrome 08506160 K58.9 Continue linzess 145 mg qd prnContinu e to monitor bowel habits. Coronary arteriosclerosis 94471569 I25.10 Asymptomat ic.Continu e with metoprolol 12.5 mg qd and ASA 81 mg qd.Continu e to monitor for sxs.F/U with cardio as planned. Cerebrovas cular accident 105521773 I63.89 Continue with ASA 81 mg qd.Conside r restarting Brilinta.F /U with neuro. Anemia 404781657 D64.89 Admit labs showing drop in Hgb. to 6.7Repeat hgb today improved 7.7.Curren tly pt. remains asymptomat ic, but will have staff monitor closely for symptoms and sent to ER if acute concern. Closed fra cture of neck of femur 383849738 S72.002A s/p fall resulting in left intertroch anteric fx. with ORIF (11/25)Cont inue with PT OTContinue with heparin 5000 U q8 hrs for AClimit APAP to 650 mg bid prn due to liver diseaseCon tinue oxycodone 5 mg q6 hr prn - for painWBATIn cisional dressing saturated this am, d/w nsg, will cleanse and dry incision and replace similar DCD.Contin ue to monitor VS, pain, incison, CSM, labs for change.Rem ove Sergio in 2 wksFollow up with Ortho 4-5 wks.,updat e ortho with concerns.G oal is to return home. [id number] Kaylynn Fan NP [address] [address] 12/04/2023 11:50:12 12/08/2023 09:53:45 Closed fracture of neck of femur 885065113 S72.002A s/p fall resulting in left intertroch anteric fx. with ORIF (11/25)Cont inue with PT OTContinue with heparin 5000 U q8 hrs for AC, will have nsg call for end date of heparin and notify them of h/halso on aspirin 81 dailylimit APAP to 650 mg bid prn due to liver diseaseCon tinueoxyco done 5 mg q6 hr prn - for painsenna 1 tab bidWBATcha nge dsd for saturation onlymonito r VS, pain, incison, CSM, labs for change.Rem ove Sergio in 2 wks with ortho 12/29/23 apptFollow up with Ortho 4-5 wks., will ask nsg to callupdate ortho with concerns.G oal is to return home. Anemia 136678990 D64.89 Admit labs showing drop in Hgb. to 6.7Repeat hgb 12/02 improved 7.7.Curren tly pt. remains asymptomat ic, but will have staff monitor closely for symptoms and sent to ER if acute concern. Type 2 sandrita betes mellitus 79069412 E11.21 E11.65 Will continue to monitor BS, decent control so far, BS mostly 100s-200sC ont:Lantus 25U qdtrulicty 0.75mg sq q wkLispro SSIMonitor FBS and labs. Asthenia 12295240 R53.1 ContinuePT /OTMonitor activity.G oal remains ot return home. Hypertensive disorder 38 614360 I10 Continueam lodipine 10 mg qdmetoprol ol 12.5 mg bidMonitor BP and labs Cirrhosis of liver 44191 007 K75.81 Due to autoimmune ContinueUr sodiol 500 mg BIDLimit use of APAPHas hx of elevated ammonia.Mo nitor if any MS changes.Mo nitor labsF/U with GI as planned. Irritable bowel syndrome 37140518 K58.9 8/ with constipati on currently will give mom 30 cc todayConti nuelinzess 145 mg qd prnContinu e to monitor bowel habits. Coronary arteriosclerosis 91658943 I25.10 Asymptomat ic.Continu emetoprolo l 12.5 mg qdASA 81 mg qd.Continu e to monitor for sxs.F/U with cardio as planned. Cerebrovas cular accident 356348997 I63.89 ContASA 81 mg qd.Conside r restarting Brilinta.F /U with neuro. Gastroesop hageal reflux disease 895167870 K21.9 Asymptomat ic.Continu epantopraz ole 40 mg qdMonitor sxs. [id number] CONRAD SMART NP [address] [address] 12/10/2023 13:08:02 12/15/2023 15:41:01 Closed fracture of neck of femur 387382320 S72.002A s/p fall resulting in left intertroch anteric fx. with ORIF (11/25)Cont inue with PT OTContinue with heparin 5000 U q8 hrs for AC - watch closely due to recent GIBleedlim it APAP to 650 mg bid prn due to liver diseaseCon tinue oxycodone 5 mg q6 hr prn - for painWBATCo ntinue to monitor VS, pain, incison, CSM, labs for change.Rem ove [place] 2 wks post opFollow up with Ortho 4-5 wks.,updat e ortho with concerns.G oal is to return home. Anemia 340586863 D64.89 Admit labs showing drop in Hgb. to 6.7, recheck 7.7Found to have GI bleed as above, treated with 1 unit PRBCs, IV octreotide , PPIHgb. up to 8.9 at [facility] e:PPIFeVit CCBC in am, then q mon x 3 Type 2 sandrita betes mellitus 82609954 E11.21 E11.65 Continue:L antus 15 units q HSjanuvia 50 mg qdLispro SSIMonitor FBS and labs. Asthenia 07051724 R53.1 Continue to work with PT/OTMonit or activity.G oal remains ot return home. Hypertensive disorder 38 002701 I10 Only on norvasc 5 mg qdMonitor BP and labs Cirrhosis of liver 83865 007 K75.81 Due to autoimmune Continue Ursodiol 500 mg BIDLimit use of APAPHas hx of elevated ammonia.Mo nitor if any MS changes.Mo nitor labsF/U with GI as planned. Irritable bowel syndrome 90308982 K58.9 Continue linzess 145 mg qdContinue to monitor bowel habits. Coronary arteriosclerosis 10637932 I25.10 Asymptomat ic.Current ly not on metoprolol per new [facility] d/c summaryASA 81 mg qd on hold due to recent GI bleed and heparin use. Restart as labs and heparin use allow.Cont inue to monitor for sxs.F/U with cardio as planned. Cerebrovas cular accident 789135479 I63.89 ASA 81 mg qd hold hold due to GI bleed and post op heparin use; restart when ableConsid er restarting Brilinta.F /U with neuro. Gastroesop hageal reflux disease 169542397 K21.9 Asymptomat ic.Continu e pantoprazo le 40 mg - dose increased to BIDMonitor sxs. Gastrointe stinal hemorrhage 65292243 K92.2 See HPI - upper GI bleed, EGD showing mild Gave in antrum/sto mach, treated with APC. Also received IV octreotide and PPI.Oral pantoprazo le increased to 40 mg bidContinu e carafateAS A on hold, consider restart when heparin completeRe darius on heparin for post op ACMonitor VS, labs, active bleed closely.Ad kristen labs not done today, will get CBC, BMP in amCBC q thursday x 3Follow up with GI [id number] [facility]ov[facility] [address] 12/12/2023 16:27:26 12/15/2023 15:56:47 Closed fracture of neck of femur 322624085 S72.002A see HPI with left intertroch anteric fx now s/p ORIFfollow ortho recs and update with concernsmo nitor for pain controlPT OT eval and treatgoal is home with services Type 2 sandrita betes mellitus 36479307 E11.21 E11.65 continue out patient medsmonito r blood glucose and need to titrate Asthenia 84401257 R53.1 mechanical fall prior to fxPT OT eval and treatmonit or fall risk and need for increased support in community Hypertensive disorder 38 285466 I10 norvasc 5 mg qdmonitor bp and need to titrate Cirrhosis of liver 007 K75.81 carrying dx appears autoimmune etiologymo nitor LFTsnow to f/u with GIavoid hepatotoxi c meds as able Irritable bowel syndrome 83905604 K58.9 carrying dxlinzess 145 mg qd continueda s above GI f/u in place Coronary arteriosclerosis 05114679 I25.10 carrying dx with hx prior stent placementm onitor for sxto f/u with cardsawait recs Anemia due to blood loss 491815970 D50.0 see HPIhx of prior upper GI bleed early 2023hemato ma at surgical siteGastri c Antral Vascular Ectasia on EGDto f/u with GI out patienttre ated with octreotide and PPI now increased to 40 mg bidmonitor cbc and need for repeat transfusio n Impaired cognition 09491 6002 R41.89 patient more confused than when eval earlier this yearinvoke HCPpsych eval prncontinu e supportive caremonito r need for increased support in community Chronic ki dney disease 530868063 N18.31 monitor renal functionav oid nephrotoxi c meds as ablenephro consult prn [id number] CONRAD SMART [facility] [address] 12/15/2023 12:40:44 12/16/2023 13:21:31 Closed fracture of neck of femur 465488331 S72.002A see HPI with left intertroch anteric fx now s/p ORIFfollow ortho recs and update with concernsCo ntinue with Oxycodone 5 mg every 6 hours PRNmonitor for pain controlPMR now followingC ontinue with PT/OTgoal remains home with services Anemia due to blood loss 771870627 D50.0 hx GI bleed early 2023hemato ma at surgical siteEGD in hosp- Gastric Antral Vascular EctasiaFol low up with GI as plannedtre ated with IV octreotide and PPI in hosp.Jennifer nue on Protonix 40 mg BIDmonitor cbc and need for repeat transfusio n. H/H improving Impaired cognition 47300 6002 R41.89 BIMS 09/1512/02/23CP invoked 12/02/23psy ch eval prncontinu e supportive caremonito r need for increased support in community Asthenia 87147956 R53.1 Mechanical fall prior to fxContinue with PT OTmonitor fall risk and need for increased support in communityM onitor for safety Type 2 sandrita betes mellitus 33422659 E11.21 E11.65 FBS TID ranging from 119-252Ser um glucose 41 on labs yesterday, not consistent with MAR- encourage bedtime [id number] 6.9 on 12/02/23con tinue:Ginger gliptin 50 mg dailyLantu s 15 U qhs and SSImonitor blood glucose and need to titrate Coronary arteriosclerosis 24938698 I25.10 carrying dx with hx prior stent placementm onitor for sxFollow up with Cardiology as planned. Hypertensive disorder 38 344198 I10 Continue norvasc 5 mg qdmonitor bp and need to titrate Cirrhosis of liver 74494 007 K75.81 appears autoimmune etiologyGI follow up as planned.av oid hepatotoxi c meds as ablemonito r LFTs Irritable bowel syndrome 07363103 K58.9 No current GI issuesCont inue linzess 145 mg qdGI follow up as planned Chronic ki dney disease 200477672 N18.31 Continue to monitor renal functionav oid nephrotoxi c meds as ablenephro consult prn [id number] CONRAD SMART NP [address] [address] 12/17/2023 10:54:43 2023 16:04:34 Closed fracture of neck of femur 754288535 S72.002A Left intertroch anteric fx s/p ORIF 11/26/[address] Waller ples over due to come out - remove in amProximal incision pink, will cover with Keflex 500 mg q 12 hr x 5 days plus probiotic to err on caution, will have nsg. update NEOS, and OUTPATIENT PHYSICAL THERAPIST ASSISTANT will re-eval incisions and abx. use tomorrow.C ontinue with Oxycodone 5 mg every 6 hours PRNmonitor for pain controlPMR followingF ollow up with ortho - 4-5 wks post op with Dr. Garza - will request nsg. verify appointmen tContinue with PT/OTgoal remains home with services Anemia due to blood loss 297856012 D50.0 hx GI bleed 2023EGD in hosp- Gastric Antral Vascular Ectasiahem atoma at surgical site Follow up with GI as plannedtre ated with IV octreotide and PPI in hosp.Jennifer nue on Protonix 40 mg BIDmonitor cbc and need for repeat transfusio n.H/H stable Impaired cognition 89294 6002 R41.89 HCP invoked 12/02/23BIM S 09/1512/02/23con tinue supportive carepsych eval prn Asthenia 06500426 R53.1 Mechanical fall prior to fxContinue with PT OTmonitor fall riskMonito r for safety Type 2 sandrita betes mellitus 95579057 E11.21 E11.65 FBS TID ranging from 119-252Rec ently mid to high 200's-staf f report increased snackingA1 C 6.9 on 12/02/23con tinue:Ginger gliptin 50 mg dailyLantu s 15 U qhs and SSImonitor blood glucose and need to titrate Coronary arteriosclerosis 33212220 I25.10 hx of prior stent placementm onitor for sxFollow up with Cardiology as planned. Hypertensive disorder 38 433673 I10 Continue norvasc 5 mg qdmonitor bp and need to titrate Cirrhosis of liver 61899 007 K75.81 appears autoimmune etiologyav oid hepatotoxi c meds as ablemonito r LFTsGI follow up as planned Irritable bowel syndrome 28974309 K58.9 No current GI issuesCont inue with linzess 145 mg qdGI follow up as planned Chronic ki dney disease 205321166 N18.31 avoid nephrotoxi c meds as ableContin ue to monitor renal functionne phro consult prn Generalized headache 162 848673 R51.9 x 2 days, plus fatigueCov id test x 1MonitorEn courage fluids. [id number] Kaylynn Fan NP [address] [address] 12/18/2023 08:42:28 12/25/2023 15:22:54 Closed fracture of neck of femur 156225067 S72.002A Left intertroch anteric fx s/p ORIF 11/26/[address] Christin foss overdue to come out but refused to have removed today on 12/17, she is agreeable to attempt removal on wednesday 12/20 Proximal incision pink/red with erythema to incisions noted on 12/16contKe flex 500 mg q 12 hr x 5 days plus probiotic by other OUTPATIENT PHYSICAL THERAPIST ASSISTANT, will have nsg. update NEOSContOx ycodone 5 mg every 6 hours PRNmonitor for pain controlPMR followingF ollow up with ortho - 4-5 wks post op with Dr. Garza - will request nsg. verify appointmen tContinue with PT/OTgoal remains home with services Type 2 sandrita betes mellitus 33947799 E11.21 E11.65 FBS TID ranging from 119-252, stableRece ntly mid to high 200's-staf f report increased snackingA1 C 6.9 on 12/02/23con tSitaglipt in 50 mg dailyLantu s 15 U qhs and SSImonitor blood glucose and need to titrate Anemia due to blood loss 101588274 D50.0 hx GI bleed 2023EGD in hosp- Gastric Antral Vascular Ectasiahem atoma at surgical site Follow up with GI as planned wtih Dr Shepard for GAVEtreate d with IV octreotide and PPI in hosp.contP rotonix 40 mg BIDasa heldmonito r cbc and need for repeat transfusio n.H/H stable Impaired cognition 32258 6002 R41.89 HCP invoked 12/02/23BIM S 09/1512/02/23con tinue supportive carepsych eval prn Asthenia 95624987 R53.1 Mechanical fall prior to fxContinue with PT OTmonitor fall riskMonito r for safety Hypertensive disorder 38 475103 I10 bp stableCont inuenorvas c 5 mg qdmonitor bp and need to titrate Cirrhosis of liver 007 K75.81 appears autoimmune etiologyav oid hepatotoxi c meds as ablemonito r LFTsGI follow up as planned Irritable bowel syndrome 50251642 K58.9 No current GI issuesCont inuelinzes s 145 mg qdGI follow up as planned Chronic ki dney disease 667439990 N18.31 avoid nephrotoxi c meds as ableContin ue to monitor renal functionne phro consult prn Unstageabl e pressure injury 6070558863 L89.95 pt with unstageabl e left heel ulcerfloat heels on pillowskin prep bid x 10 days to left heeldsg or boot to left heel as toleratedp rotein liquid 30 cc po dailywound consultmon itor 489808 Kayylnn Fan NP [address] [address] 2023 12:53:05 12/25/2023 15:55:09 Unstageable pressure injury 8086164815 L89.95 pt with unstageabl e left heel ulcerconta ir loss bedfloat heels on pillowskin prep bid x 10 days to left heeldsg and/or boot to left heel as toleratedp rotein liquid 30 cc po dailywound consultdie tician consult to followmoni tor Closed fra cture of neck of femur 505692046 S72.002A Left intertroch anteric fx s/p ORIF 11/26/[address] Waller plelawson overdue to come outElda refused to have removed on 2 of sergio removed on 12/20, will reeval at end of week for remainder of sergio for concern of wound opening 3 left to proximal and distalns wash, pat dry, cover with dsg daily contKeflex 500 mg q 12 hr x 5 days plus probiotic to end on 12/21ContOx ycodone 5 mg every 6 hours PRNzofran 4 mg po q 6 hours prnmonitor for pain controlPMR followingF ollow up with ortho - 4-5 wks post op with Dr. Garza - will request nsg. 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 cbc above stablefu gisela called and office will call back with appt Impaired cognition 51119 6002 R41.89 HCP invoked 12/02/23BIM S 09/1512/02/23con tinue supportive carepsych eval prn Asthenia 19904338 R53.1 Mechanical fall prior to fxContinue with PT OTmonitor fall riskMonito r for safety Hypertensive disorder 38 201932 I10 bp stableCont inuenorvas c 5 mg qdmonitor bp and need to titrate Cirrhosis of liver 53278 007 K75.81 appears autoimmune etiologyav oid hepatotoxi c meds as ablemonito r LFTsGI follow up as planned Irritable bowel syndrome 31915091 K58.9 No current GI issuesCont inuelinzes s 145 mg qdGI follow up as planned Chronic ki dney disease 946541641 N18.31 avoid nephrotoxi c meds as ableContin ue to monitor renal functionne phro consult prn [id number] Kaylynn Fan NP [address] [address] 12/23/2023 13:19:45 12/28/2023 09:17:46 Unstageable pressure injury 2199583726 L89.95 pt with unstageabl e left heel ulcerconta ir loss bedfloat heels on pillowskin prep bid x 10 days to left heel and reevaldsg and/or boot to left heel as toleratedp rotein liquid 30 cc po dailywound consultdie tician consult to followmoni tor Closed fra cture of neck of femur 666419238 S72.002A Left intertroch anteric fx s/p ORIF 11/26/[address] Christin foss overdue to come outElda refused to have removed on /2 of sergio removed on 12/20, will reeval at end of week for remainder of sergio for concern of wound opening 3 left to proximal and distalns wash, pat dry, cover with dsg daily contKeflex 500 mg q 12 hr x 5 days plus probiotic to end on 12/21ContOx ycodone 5 mg every 6 hours PRNzofran 4 mg po q 6 hours prnmonitor for pain controlPMR followingF ollow up with ortho - 4-5 wks post op with Dr. Garza - will request nsg. 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 cbc above stablefu gisela called and office will call back with appt for GAVE, nsg to fu on this Impaired cognition 58709 6002 R41.89 HCP invoked 12/02/23BIM S 09/1512/02/23con tinue supportive carepsych eval prn Asthenia 01248844 R53.1 Mechanical fall prior to fxContinue with PT OTmonitor fall riskMonito r for safety Hypertensive disorder 38 464821 I10 bp stableCont inuenorvas c 5 mg qdmonitor bp and need to titrate Cirrhosis of liver 007 K75.81 appears autoimmune etiologyav oid hepatotoxi c meds as ablemonito r LFTsGI follow up as planned Irritable bowel syndrome 87493385 K58.9 No current GI issuesCont inuelinzes s 145 mg qdGI follow up as planned Chronic ki dney disease 347485023 N18.31 avoid nephrotoxi c meds as ableContin ue to monitor renal functionne phro consult prn Hallucinations 4572341 R 44.3 pt with hallucinat ions per nsg overnight and delusionsw ill order urinalysis with c & s, may straight cath is neededlabs stable recently and labs due on ito r [id number] [facility] [address] 12/25/2023 10:51:50 12/28/2023 10:56:19 Hallucinations 5401521 R44.3 no hallucinat ions today and at baselineur inalysis appears wnl as abovelabs stable recently and labs due on ito r Unstageabl e pressure injury 2540576896 L89.95 pt with unstageabl e left heel ulcerconta ir loss bedfloat heels on pillowskin prep bid x 10 days to left heel and reevaldsg and/or boot to left heel as toleratedp rotein liquid 30 cc po dailywound consultdie tician consult to followmoni tor Closed fra cture of neck of femur 135536007 S72.002A Left intertroch anteric fx s/p ORIF 11/26/[address] Waller plelawson overdue to come outElda refused to have removed on 2 of sergio removed on 12/20, will reeval at end of week for remainder of sergio for concern of wound opening 3 left to proximal and distalns wash, pat dry, cover with dsg daily contKeflex 500 mg q 12 hr x 5 days plus probiotic to end on 12/21ContOx ycodone 5 mg every 6 hours PRNzofran 4 mg po q 6 hours prnmonitor for pain controlPMR followingF ollow up with ortho - 4-5 wks post op with Dr. Garza - will request nsg. 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 cbc above stablefu gisela called and office will call back with appt for GAVE, nsg to fu on this Impaired cognition 87498 6002 R41.89 HCP invoked 12/02/23BIM S 09/1512/02/23con tinue supportive carepsych eval prn Asthenia 59591301 R53.1 Mechanical fall prior to fxContinue with PT OTmonitor fall riskMonito r for safety Hypertensive disorder 38 011389 I10 bp stableCont inuenorvas c 5 mg qdmonitor bp and need to titrate Cirrhosis of liver 007 K75.81 appears autoimmune etiologyav oid hepatotoxi c meds as ablemonito r LFTsGI follow up as planned Irritable bowel syndrome 87052569 K58.9 No current GI issuesCont inuelinzes s 145 mg qdGI follow up as planned Chronic ki dney disease 854658798 N18.31 avoid nephrotoxi c meds as ableContin ue to monitor renal functionne phro consult prn [id number] CONRAD SMART NP [address] [address] 12/29/2023 11:34:18 12/30/2023 16:00:57 Closed fracture of neck of femur 726386470 S72.002A Left intertroch anteric fx s/p ORIF 11/26/[address] Monet ling well.Left hip incision with 2 steri strips intact, sergio out.AC (heparin) completedH ad ortho appt today- now WBAT and recs. to follow up in 2 months Continue:P T OTOxycodon e 5 mg every 6 hours PRN for pain mgmt. (not on APAP due to liver dz., NSAIDS due to recent GI issues)PMR following as well.Jennifer nue to monitor pain, VS, labs, CSMFollow up with ortho as planned in 2 monthsgoal remains home with services Impaired cognition 03010 6002 R41.89 BIMS 09/1512/02/23CP invoked 12/02/23con tinue supportive carepsych eval prn Unstageabl e pressure injury 6392482576 L89.95 unstageabl e left heel ulcerconti nue:air loss bedpressur e relief - float heels on pillowprot ein liquid 30 cc po dailybeing followed by wound practition er and tombstone carver as well.monit or Type 2 sandrita betes mellitus 42786308 E11.21 E11.65 stablemid 100's to high 200's-staf f report increased snackingA1 C 6.9 on 12/02/23con tSitaglipt in 50 mg dailyLantu s 15 U qhs and SSImonitor blood glucose tid and need to titrate Anemia due to blood loss 188228175 D50.0 hx GI bleed 2023EGD in hosp- 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 cbc above stablefu gisela called and office will call back with appt for GAVE nsg to fu on this Asthenia 36729024 R53.1 Ret from ortho today with WBAT and follow up in 2 monthsCont inue with PT OTmonitor fall riskMonito r for safetyGoal is to return home Hypertensive disorder 38 600273 I10 bp stableCont inuenorvas c 5 mg qdmonitor bp and need to titrate Cirrhosis of liver 95778 007 K75.81 appears autoimmune etiologyav oid hepatotoxi c meds as ablemonito r LFTsGI follow up as planned Irritable bowel syndrome 28316587 K58.9 No current GI issuesCont inuelinzes s 145 mg qdGI follow up as planned Chronic ki dney disease 929409021 N18.31 BUN 30, Cr 1.96 this week, a little higher than usualMAR reviewed, not on diuretics, ACEIs, ARBs.Staff thinks she could be drinking better, will set goal for 2L/dRepeat BMP ro consult prn [id number] Kaylynn Fan NP [address] [address] 01/01/2024 10:27:31 01/06/2024 11:43:41 Closed fracture of neck of femur 026646035 S72.002A Left intertroch anteric fx s/p ORIF 11/26/[address] Chiki ram well.Left hip incision with 2 steri strips intact, sergio out.AC (heparin) completedH ad ortho appt today- now WBAT and recs. to follow up in 2 months Continue:P T OTOxycodon e 5 mg every 6 hours PRN for pain mgmt. (not on APAP due to liver dz., NSAIDS due to recent GI issues)PMR following as well.Jennifer nue to monitor pain, VS, labs, CSMFollow up with ortho as planned in 2 monthsgoal remains home with services Chronic ki dney disease 521596534 N18.31 BUN 30, Cr 1.96 this week, a little higher than usualMAR reviewed, not on diuretics, ACEIs, ARBs.Staff thinks she could be drinking better, will set goal for 2L/dRepeat BMP ro consult prn Unstageabl e pressure injury 6983199568 L89.95 unstageabl e left heel ulcerconti nue:air loss bedpressur e relief - float heels on pillowprot ein liquid 30 cc po dailybeing followed by wound practition er and tombstone carver as well.monit or Impaired cognition 99892 6002 R41.89 BIMS 15 12/01/24HCP invoked 12/02/23con tinue supportive carepsych eval prn Type 2 sandrita betes mellitus 96271959 E11.21 E11.65 stablemid 100's to high 200's-staf f report increased snackingA1 C 6.9 on 12/02/23con tSitaglipt in 50 mg dailyLantu s 15 U qhs and SSImonitor blood glucose tid and need to titrate Anemia due to blood loss 787527825 D50.0 hx GI bleed 2023EGD in hosp- 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 resolving 12/31 still having tarry hard black stools(h/h stable, will send to determine if from iron or heme positive today)12/31 change senna to senna s bidadd cbc and bmp on thursday( hol) Follow up with GI as planned wtih Dr Shepard for GAVEtreate d with IV octreotide and PPI in hosp.nsg states fu on 02/11/[address] Shepardconto meprazole 40 mg BIDremains off asazofran 4 mg po q 6 hours prnmonitor Asthenia 56860029 R53.1 ortho visit 12/28: WBAT and follow up in 2 monthsCont inue with PT OTmonitor fall riskMonito r for safetyGoal is to return home Hypertensive disorder 38 749785 I10 bp stableCont inuenorvas c 5 mg qdmonitor bp and need to titrate Cirrhosis of liver 28384 007 K75.81 appears autoimmune etiologyav oid hepatotoxi c meds as ablemonito r LFTsGI follow up as planned Irritable bowel syndrome 37550184 K58.9 currently with hard stools12/31 add senna s bid and dc senna bidContinu elinzess 145 mg qdGI follow up as planned [id number] CONRAD SMART, SMILEY [place] [address] [facility] [place] [address] 01/05/2024 10:58:52 01/06/2024 11:57:23 Anemia due to blood loss 504587474 D50.0 hx GI bleed 2023EGD in hosp- 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 sent to lab, OB positive.C BC, BMP to be done today, but no order seen in EMR, no results in [facility] portal at this time. Will re-request to be done in am.Continu e senna s bid, omeprazole 40 mg bid, zofran prn.F/U with GI (Dr. Shepard) 02/10, sooner if needed, update with concernsMo nitor bowels, GI sx, VSRemains off ASA Closed fra cture of neck of femur 034659997 S72.002A Left intertroch anteric fx s/p ORIF 11/26/[address] Chiki ram well.Left hip incision with 2 steri strips intact, sergio out.AC (heparin) completedN ow WBAT and recs. to follow up in 2 months Continue:P T OTOxycodon e 5 mg every 6 hours PRN for pain mgmt., still with hip pain, continues to use. Unsure if contributi ng to GI sx. mentioned above.PMR followingC ontinue to monitor pain, VS, labs, CSMFollow up with ortho as planned in 2 monthsgoal remains home with services Irritable bowel syndrome 18278460 K58.9 currently with hard stoolsLax. changed to senna s bid and dc senna bidContinu elinzess 145 mg qdGI follow up as planned Chronic ki dney disease 207852014 N18.31 BUN 30, Cr 1.96 this week, a little higher than usualMAR reviewed, not on diuretics, ACEIs, ARBs.Staff thinks she could be drinking better, will set goal for 2L/dRepeat BMP in am, does not appear labs done todayNephr o consult prn Unstageabl e pressure injury 5052443572 L89.95 unstageabl e left heel ulcerconti nue:air loss bedpressur e relief - float heels on pillowprot ein liquid 30 cc po dailybeing followed by wound practition er and tombstone carver as well.monit or Impaired cognition 36809 6002 R41.89 BIMS 09/1512/02/23CP invoked 12/02/23con tinue supportive careSeen by Psych 12/31, trazodone 25 mg bid recommende d to help with mood and behaviors. Type 2 sandrita betes mellitus 39609278 E11.21 E11.65 [id number] 6.9 on 12/02/23con tSitaglipt in 50 mg dailyLantu s 15 U qhs and SSImonitor blood glucose tid and need to titrate Asthenia 29304609 R53.1 ortho visit 12/28: WBAT and follow up in 2 monthsCont inue with PT OTmonitor fall riskMonito r for safetyGoal is to return home Hypertensive disorder 38 867101 I10 bp stableCont inuenorvas c 5 mg qdmonitor bp and need to titrate Cirrhosis of liver 25106 007 K75.81 appears autoimmune etiologyav oid hepatotoxi c meds as ablemonito r LFTsGI follow up as planned [id number] Kaylynn Fan, SMILEY [facility] [address] [place] [address] 01/07/2024 14:50:05 01/11/2024 11:19:27 Anemia due to blood loss 349019886 D50.0 hx GI bleed 2023EGD in hosp- 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 sent to lab, OB positive. / h/h stable, recheck on mondays Continuese nna s bidomepraz ole 40 mg bidzofran prn.F/U with GI (Dr. Shepard) 02/10, sooner if needed, update with concernsMo nitor bowels, GI sx, VS, s/s of bleeding or vomitingRe darius off ASA Closed fra cture of neck of femur 647694920 S72.002A Left intertroch anteric fx s/p ORIF 11/26/[address] Chiki ram well.Left hip incision intact well approx and healingAC (heparin) completedN ow WBAT and recs. to follow up in 2 months Continue:P T OTOxycodon e 5 mg every 6 hours PRN for pain mgmt., still with hip pain, continues to use. Unsure if contributi ng to GI sx. mentioned above.PMR followingC ontinue to monitor pain, VS, labs, CSMFollow up with ortho as planned in 2 monthsgoal remains home with services Irritable bowel syndrome 53006481 K58.9 currently with hard stoolsLax. changed to senna s bid last weekContin uelinzess 145 mg qdGI follow up as planned Chronic ki dney disease 825090708 N18.31 with SAM on CKD, higher than baselineBU N 36, Cr 2.11 on 01/06MAR reviewed, not on diuretics, ACEIs, ARBs.plan for 2L/dfluids brought into pt and agreeablew ill consider IVF if no improvemen t on thursday labs bmp cbcbmp and cbc on mondaysNep hro consult prnhcp daughter updated today Unstageabl e pressure injury 7992300922 L89.95 unstageabl e left heel ulcerconti nue:air loss bedpressur e relief - float heels on pillowprot ein liquid 30 cc po dailybeing followed by wound practition er and tombstone carver as well.monit or Impaired cognition 67697 6002 R41.89 BIMS 09/1512/02/23CP invoked 12/02/23con tinue supportive careSeen by Psych 12/31, trazodone 25 mg bid recommende d to help with mood and behaviors. Type 2 sandrita betes mellitus 56859900 E11.21 E11.65 [id number] 6.9 on 12/02/23con tSitaglipt in 50 mg dailyLantu s 15 U qhs and SSImonitor blood glucose tid and need to titrate Asthenia 63938308 R53.1 ortho visit 12/28: WBAT and follow up in 2 monthsCont inue with PT OTmonitor fall riskMonito r for safetyGoal is to return home Hypertensive disorder 38 439341 I10 bp stableCont inuenorvas c 5 mg qdmonitor bp and need to titrate Cirrhosis of liver 007 K75.81 appears autoimmune etiologyav oid hepatotoxi c meds as ablemonito r LFTsGI follow up as planned [id number] CONRAD SMART NP [facility] [address] [place] [address] 01/14/2024 13:39:24 01/15/2024 13:35:09 Anemia due to blood loss 536475001 D50.0 hx GI bleed 2023EGD in hosp- 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 sent to lab, OB positive.9 / h/h stable, recheck on mondays Continuese nna s bidomepraz ole 40 mg bidzofran prn.F/U with GI (Dr. Shepard) 02/10, sooner if needed, update with concernsMo nitor bowels, GI sx, VS, s/s of bleeding or vomitingRe darius off ASA Chronic ki dney disease 213203108 N18.31 with SAM on CKD, higher than baselineBU N 36, Cr 2.11 on 01/06MAR reviewed, not on diuretics, ACEIs, ARBs.Curre nt fluid goal is 2L/dRepeat labs betterbmp and cbc on thursday x 3 to trendNephr o consult prn Closed fra cture of neck of femur 980733898 S72.002A Left intertroch anteric fx s/p ORIF 11/26/[address] Monet ling well.Left hip incision intact well approx and healingAC (heparin) completedN ow WBAT and recs. to follow up in 2 months Continue:P T OTOxycodon e 5 mg every 6 hours PRN for pain mgmt., still with hip pain, continues to use. Unsure if contributi ng to GI sx. mentioned above. Avoiding NSAIDS due to GI bleed, APAP due to liver dz.PMR followingC ontinue to monitor pain, VS, labs, CSMFollow up with ortho as planned in 2 monthsgoal remains home with services Irritable bowel syndrome 16802394 K58.9 currently with hard stoolsLax. changed to senna s bidContinu elinzess 145 mg qdMonitor bowelsGI follow up as planned Unstageabl e pressure injury 3626224132 L89.95 unstageabl e left heel ulcerconti nue:air loss bedpressur e relief - float heels on pillowprot ein liquid 30 cc po dailybeing followed by wound practition er and tombstone carver as well.monit or Impaired cognition 08825 6002 R41.89 BIMS /15 12/02/23CP invoked 12/02/23con tinue supportive careSeen by Psych 12/31, trazodone 25 mg bid recommende d to help with mood and behaviors. Type 2 sandrita betes mellitus 02194426 E11.21 E11.65 [id number] 6.9 on 12/02/23con tSitaglipt in 50 mg dailyLantu s 15 U qhs and SSImonitor blood glucose tid and need to titrate Asthenia 65989513 R53.1 ortho visit 12/28: WBAT and follow up in 2 monthsCont inue with PT OTmonitor fall riskMonito r for safetyGoal is to return home Hypertensive disorder 38 493071 I10 bp stableCont inuenorvas c 5 mg qdmonitor bp and need to titrate Cirrhosis of liver 007 K75.81 appears autoimmune etiologyav oid hepatotoxi c meds as ablemonito r LFTsGI follow up as planned [id number] Kaylynn Fan NP [address] [address] 01/21/2024 08:27:36 01/25/2024 14:55:52 Chronic kidney disease 485481321 N18.31 with SAM on CKD, higher than baselineBU N 36, Cr 2.11 on 01/06 and trended down as above, appears euvolemic todayuncle ar why labs not done this weekMAR reviewed, not on diuretics, ACEIs, ARBs.Curre nt fluid goal is 2L/dbmp and cbc wednesdays Nephro consult prn Anemia due to blood loss 494822719 D50.0 nausea and vomiting resolving hx GI bleed 2023EGD in hosp- 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 sent to lab, OB positive. h/h stable, recheck weekly, not done on 01/17 unclear if pt refused, will reorderedC ontinuesen na s bidomepraz ole 40 mg bidzofran prn.F/U with GI (Dr. Shepard) 02/11/24, sooner if needed, update with concernsMo nitor bowels, GI sx, VS, s/s of bleeding or vomitingRe darius off ASA Closed fra cture of neck of femur 303457126 S72.002A Left intertroch anteric fx s/p ORIF 11/26/[address] Garza now healed in.AC (heparin) completedW BAT Continue:P T OTOxycodon e 5 mg every 6 hours PRN for pain mgmt., still with hip pain, continues to use. Unsure if contributi ng to GI sx. mentioned above. Avoiding NSAIDS due to GI bleed, APAP due to liver dz.PMR followingC ontinue to monitor pain, VS, labs, CSMFollow up with ortho as planned in 2 monthsgoal remains home with services Irritable bowel syndrome 18357134 K58.9 currently with hard stoolsCont inuesenna s bidlinzess 145 mg qdMonitor bowelsGI follow up as planned Unstageabl e pressure injury 1156304828 L89.95 unstageabl e left heel ulcerconti nue:air loss bedpressur e relief - float heels on pillowprot ein liquid 30 cc po daily, monitor closely with liver diseasebei ng followed by wound practition er and tombstone carver as well.monit or Impaired cognition 01143 6002 R41.89 BIMS 09/1524HCP invoked 12/02/23con tinue supportive careSeen by Psych 12/31, trazodone 25 mg bid recommende d to help with mood and behaviors. Type 2 sandrita betes mellitus 55008043 E11.21 E11.65 stable appetitie improving1 00s-200sA1 C 6.9 on 12/02/23con tSitaglipt in 50 mg dailyLantu s 15 U qhs and SSImonitor blood glucose tid and need to titrate Asthenia 18737195 R53.1 ortho visit 12/28: WBAT and follow up in 2 monthsCont inue with PT OTmonitor fall riskMonito r for safetyGoal is to return home Cirrhosis of liver 28148 007 K75.81 appears autoimmune etiologyav oid hepatotoxi c meds as ablemonito r LFTsGI follow up as planned [id number] Kaylynn Fan NP [address] [address] 01/28/2024 11:55:44 01/29/2024 11:31:25 Closed fracture of neck of femur 541349661 S72.002A Left intertroch anteric fx s/p ORIF 11/26/[address] Garza now healed in.AC (heparin) completedW BAT Continue:P T OTOxycodon e 5 mg every 6 hours PRN for pain mgmt., still with hip pain, continues to use but less lately. Unsure if contributi ng to GI sx. 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 sent to lab, OB positive.h /h stable as aboveConmadeleine pathak bidomepraz ole 40 mg bidzofran prn.F/U with GI (Dr. Shepard) 02/11/24, sooner if needed, update with concernsMo nitor bowels, GI sx, VS, s/s of bleeding or vomitingRe darius off ASA Irritable bowel syndrome 07416960 K58.9 no constipati on or loose stools per pt todayJennifer pathak bidlinzess 145 mg qdMonitor bowelsGI follow up as planned Unstageabl e pressure injury 2473881090 L89.95 unstageabl e left heel ulcerconti nue:air loss bedpressur e relief - float heels on pillowprot ein liquid 30 cc po daily, monitor closely with liver diseasebei ng followed by wound practition er and tombstone carver as well.boot as toleratedm onitor Impaired cognition 10184 6002 R41.89 BIMS 15 24HCP invoked 12/02/23con tinue supportive careSeen by Psych 12/31, trazodone 25 mg bid recommende d to help with mood and behaviors. Type 2 sandrita betes mellitus 81999042 E11.21 E11.65 [id number] 6.9 on 12/02/23con tSitaglipt in 50 mg dailyLantu s 15 U qhs and SSImonitor blood glucose tid and need to titrate Asthenia 37290470 R53.1 ortho visit 12/28: WBAT and follow up in 2 monthsCont inue with PT OT prn, not on therapy currentlym onitor fall riskMonito r for safetyGoal is to return home Cirrhosis of liver 007 K75.81 appears autoimmune etiologyav oid hepatotoxi c meds as ablemonito r LFTsGI follow up as planned [id number] CONRAD SMART NP [facility] [address] [address] 02/02/2024 11:07:13 02/05/2024 03:51:22 Recurrent falls 973342178 R29.6 Found on the floor in her room this morning, no injury.VS and neuros stable so far.PT OT eval and tx. prnMonitor safety. [id number] Huong Paulson MD [facility] [address] [address] 02/02/2024 17:12:47 02/03/2024 10:55:24 Closed fracture of neck of femur 988319157 S72.045D Now WBAT, but doesn't like to bear wt.Continu e oxycodone 5 mg q 6 hrs prn and APAP 650 mg q 6 hrs prn.F/U with ortho as planned. Type 2 sandrita betes mellitus 98004094 E11.21 E11.65 With HgA1C 6.9 on 12/02/23Con tinue sitaglipti n 50 mg qd, Lantus 15 U qhs and SSIMonitor blood glucose TID and HgA1C q 6 months. Chronic ki dney disease 647827607 N18.31 GFR has varied from 25-35 since here.Jennifer nue to avoid nephrotoxi c meds as able.Jennifer nue to push po fluids.Mon itor labs.Renal consult prn. Anemia due to blood loss 954875291 D50.0 Hgb stable since return from hospital.C ontinue pantoprazo le 40 mg BID, carafate 1 gm BID, and zofran prn.F/U with GI (Dr. Shepard) 02/11/24.C ontinue to hold ASA. Unstageabl e pressure injury 5463720344 L89.620 Continue wound care as ordered.Mo nitor for healing.Co ntinue prosource 30 cc qd.Followe d by wound care. Irritable bowel syndrome 63962509 K58.9 Continue linzess 145 mg qdMonitor bowel function. Impaired cognition 22238 6002 R41.89 Has declined since admission. Continue trazadone 12.5 mg BIDContinu e supportive care, expect decline.HC P invokedMon itor mood and behaviors. Psych follows. Asthenia 77119429 R53.1 No longer on rehab services.C ontinue safety measures as above. Cirrhosis of liver 007 K75.81 Continue to avoid hepatotoxi c meds as ableMonito r LFTsGI follow up as planned Recurrent falls 10042570 2 R29.6 Found on the floor in her room this morning, no injury.Con surinder fall precaution s.Monitor for safety. [id number] Kaylynn Fan NP [address] [address] 02/04/2024 12:30:15 02/05/2024 10:20:05 Closed fracture of neck of femur 230890872 S72.045D mostly resolvedNo w WBAT, but doesn't like to bear wt.Continu eoxycodone 5 mg q 6 hrs prnAPAP 650 mg q 6 hrs prn.F/U with ortho as planned. Type 2 sandrita betes mellitus 17167626 E11.21 E11.65 With HgA1C 6.9 on 12/02/23 monitor BS closely if appetite decreases Continuesi tagliptin 50 mg qdLantus 15 U qhs and SSIMonitor blood glucose TID and HgA1C q 6 months. Impaired cognition 75971 6002 R41.89 Has declined since admission. Continuetr azadone 12.5 mg BIDContinu e supportive care, expect decline.HC P invokedMon itor mood and behaviors. Psych follows. Asthenia 68219183 R53.1 No longer on rehab services.C ontinue safety measures as above. Nausea 185499061 R11.0 pt seen for nausea this am , no vomiting currently euvolemicd enies constipati on or loose stoolscovi d negativezo shy 4 mg po q 6 hours prn nauseaenco urage fluids as toleratedm ontior [id number] Kaylynn Fan NP [facility] [address] [place] [address] 02/05/2024 12:19:20 02/08/2024 10:33:25 Nausea 601594320 R11.0 resolving, appears viral illnessno vomiting currently euvolemicd enies constipati on or loose stoolscovi d negative x2 dayszofran 4 mg po q 6 hours prn nauseaenco urage fluids as toleratedm ontior Type 2 sandrita betes mellitus 49177333 E11.21 E11.65 With HgA1C 6.9 on 12/02/23 monitor BS closely if appetite decreases Continuesi tagliptin 50 mg qdLantus 15 U qhs and SSIMonitor blood glucose TID and HgA1C q 6 months. Closed fra cture of neck of femur 860697616 S72.045D mostly resolvedNo w WBAT, but doesn't like to bear wt.Continu eoxycodone 5 mg q 6 hrs prnAPAP 650 mg q 6 hrs prn.F/U with ortho as planned. Impaired cognition 08823 6002 R41.89 Has declined since admission. Continuetr azadone 12.5 mg BIDContinu e supportive care, expect decline.HC P invokedMon itor mood and behaviors. Psych follows. Asthenia 72646876 R53.1 No longer on rehab services.C ontinue safety measures as above. Respirator y tract congestion and cough 900595369 R05.9 pt with nausea x 1 day, now upper airway moon and cough, likely viralnote: covid in faciltyrob itussin 10 ml bid and q 6 hours prnencoura ge po fluids >2l/24 hoursmonit or vitals and resp status closely [id number] Kaylynn Fan NP [facility] [address] [place] [address] 02/08/2024 14:59:04 02/09/2024 09:47:58 Type 2 diabetes mellitus 01071149 E11.21 E11.65 With HgA1C 6.9 on 12/02/23 monitor BS closely if appetite decreases Continuesi tagliptin 50 mg qd 02/07 decrease Lantus from 15 U qhs to 10 units qhs for decreased eatingand cont SSIMonitor blood glucose TID and HgA1C q 6 months. Closed fra cture of neck of femur 102359020 S72.045D mostly resolvedNo w WBAT, but doesn't like to bear wt.Continu eoxycodone 5 mg q 6 hrs prnAPAP 650 mg q 6 hrs prn.F/U with ortho as planned. Impaired cognition 43933 6002 R41.89 Has declined since admission. Continuetr azadone 12.5 mg BIDContinu e supportive care, expect decline.HC P invokedMon itor mood and behaviors. Psych follows. Asthenia 20628604 R53.1 No longer on rehab services.C ontinue safety measures as above. Acute COVID-19 960278154 8 U07.1 covid positive on 02/05 with upper airway moon, cough, and sore throat today start 02/07isolat ion airborne for coviddc paxlovid which was started by weekend telephone operator receptionist due to gfr of 25 with history of ckdstart molnupirav ir 800 mg po bid x 5dayslabs cbc and bmp on 02/08 controbitu ssin 10 ml bid and q 6 hours prnencoura ge po fluids >2l/24 hoursmonit or vitals and resp status closelyzof ran 4 mg po q 6 hours prn nauseasupp ortive care [id number] Kaylynn Fan NP [address] [address] 02/11/2024 11:14:34 02/15/2024 09:27:26 Acute COVID-19 2260510670 U07.1 covid positive on 02/05 with upper airway moon, cough, and sore throat on 02/05 02/10 overall improving with decreased congestion contisolat ion airborne for covidmolnu piravir 800 mg po bid x 5dayslabs cbc and bmp on 02/08 stablerobi tussin 10 ml bid and q 6 hours prnencoura ge po fluids >2l/24 hoursmonit or vitals and resp status closelyzof ran 4 mg po q 6 hours prn nauseasupp ortive care Type 2 sandrita betes mellitus 75669445 E11.21 E11.65 With HgA1C 6.9 on 12/02/23mon itor BS closely if appetite decreases Continuesi tagliptin 50 mg qd 02/07 decrease Lantus from 15 U qhs to 10 units qhs for decreased eatingand cont SSI 02/10 will cont lantus at lower dose due to BS of 97 and 93 over last few days and adjust soon when eating more Monitor blood glucose TID and HgA1C q 6 months. Closed fra cture of neck of femur 213789909 S72.045D mostly resolvedNo w WBAT, but doesn't like to bear wt.Continu eoxycodone 5 mg q 6 hrs prnAPAP 650 mg q 6 hrs prn.F/U with ortho as planned. Impaired cognition 74492 6002 R41.89 Has declined since admission. Continuetr azadone 12.5 mg BIDContinu e supportive care, expect decline.HC P invokedMon itor mood and behaviors. Psych follows. [id number] CONRAD SMART NP [facility] [address] [address] 02/16/2024 14:42:29 02/17/2024 12:29:13 Acute COVID-19 2811315957 U07.1 Covid positive on 02/05 with upper airway moon, cough, and sore throatComp leted molnupirav ir and supportive meds.Clini kwaku now improving and testing covid neg.VS and labs stable. Maintain supportive careMonito r to resolution . Type 2 sandrita betes mellitus 12269696 E11.21 E11.65 With HgA1C 6.9 on 12/02/23BS currently in good control, in 100s. Continuesi tagliptin 50 mg qdLantus from 10 units qhs (decreased appetite)L ispro SSI Monitor blood glucose TID and HgA1C q 6 months. Closed fra cture of neck of femur 253929087 S72.045D mostly resolvedNo w WBAT, but doesn't like to bear wt.Continu eoxycodone 5 mg q 6 hrs prnAPAP 650 mg q 6 hrs prn.F/U with ortho as planned. Impaired cognition 32379 6002 R41.89 Has declined since admission. Continuetr azadone 12.5 mg BIDContinu e supportive care, expect decline.HC P invokedMon itor mood and behaviors. Psych follows. [id number] CONRAD SMART NP [address] [address] 02/23/2024 10:38:56 02/24/2024 11:43:29 Acute COVID-19 8568056354 U07.1 Covid positive on 02/05 with upper airway moon, cough, and sore throatComp leted molnupirav ir and supportive meds.Clini kwaku now improved and testing covid neg.VS and labs stable. Type 2 sandrita betes mellitus 50066058 E11.21 E11.65 With HgA1C 6.9 on 12/02/23BS currently in decent control, 100s - 200s Continuesi tagliptin 50 mg qdLantus 10 units qhs (dose reduced due to decreased appetite)L ispro SSI Monitor blood glucose TID and HgA1C q 6 months.Inc rease lantus as needed. Closed fra cture of neck of femur 169015917 S72.045D Now WBAT, but doesn't like to bear wt.Oxycodo ne 5 mg q 6 hrs prn - using occasional ly, will stop.Utili ze APAP 650 mg q 6 hrs prn painF/U with ortho as planned. Impaired cognition 27608 6002 R41.89 Has declined since admission. Continuetr azadone 12.5 mg BIDContinu e supportive care, expect decline.HC P invokedMon itor mood and behaviors. Psych follows. Recurrent falls 63008041 2 R29.6 Continue fall precaution s.Monitor for safety. Chronic ki dney disease 507538050 N18.31 GFR has varied from 25-35 since here.Jennifer nue to avoid nephrotoxi c meds as able.Jennifer nue to push po fluids.Mon itor labs.Renal consult prn. Anemia due to blood loss 908640500 D50.0 Hgb stable since return from hospital.C ontinue pantoprazo le 40 mg BID, carafate 1 gm BID, and zofran prn.F/U with GI (Dr. Shepard) today 02/23/24.C ontinue to hold ASA. Unstageabl e pressure injury 8650482214 L89.620 Left heelContin ue wound care as ordered, currently daily santyl for debridemen tMonitor for healing.Co ntinue prosource 30 cc qd.Followe d by wound care. Irritable bowel syndrome 98783728 K58.9 Continue linzess 145 mg qdMonitor bowel function. Cirrhosis of liver 007 K75.81 Continue to avoid hepatotoxi c meds as ableMonito r LFTsGI follow up as planned [id number] CONRAD SMART NP [facility] [address] 03/08/2024 10:37:37 03/09/2024 10:17:06 Closed fracture of neck of femur 347765502 S72.045D Now WBAT, but doesn't like to bear wt.Back on rehab presently. Oxycodone 5 mg q 6 hrs prn - using occasional ly, was stopped but then restarted yesterday. Enc. utilizatio n of APAP 650 mg q 6 hrs prn painF/U with ortho as planned. Irritable bowel syndrome 11257003 K58.9 Continue linzess 145 mg qdMonitor bowel function. Cirrhosis of liver K75.81 Continue to avoid hepatotoxi c meds as ableMonito r LFTsGI follow up as planned - requesting notes from OV Constipation 20089473 K5 9.00 MAR reviewed, is on PRN miralax and senna plus 1 bid.Also on linzess for IBS.Just started back on prn oxycodone. Plan -supp. x 1, fleets if poor results.Co ntinue senna-plus Enc prn use of miralaxMai ntain fluidsMoni tor closely, may need to consider increasing senna-plus or scheduling miralax. [id number] Kaylynn Fan NP [facility] [address] 03/14/2024 07:23:16 03/15/2024 09:40:28 Constipation 91918316 K59.00 contmirala x prnsenna plus 1 bid.linzes s daily for IBS.Mainta in fluidsMoni tor closely, may need to consider increasing senna-plus or scheduling miralax outpt with pcp Irritable bowel syndrome 57816376 K58.9 Continueli nzess 145 mg qdMonitor bowel function outpt with pcp Cirrhosis of liver 007 K75.81 Continue to avoid hepatotoxi c meds as ableMonito r LFTs outpt with pcpGI follow up as planned - requesting notes from OV, not received yet from visit earlier this monthmonit or outpt with pcp and GI Closed fra cture of neck of femur 635774034 S72.045D Now WBAT, but doesn't like to bear wt.Oxycodo ne 5 mg q 6 hrs prn - using occasional ly, was stopped and restarted recentlyAP AP 650 mg q 6 hrs prn painF/U with ortho as planned outpt and pcp Type 2 sandrita betes mellitus 10075426 E11.21 E11.65 With HgA1C 6.9 on 12/02/23BS currently in decent control, 100s - 200soccasi onally chooses not to eat and lantus not aggressive ly titrated due to this with gave dxContinue alogliptin 12.5 mg po qdLantus 10 units qhs (dose reduced due to decreased appetite)L ispro SSIMonitor blood glucose TID and HgA1C q 6 months.adj ust meds as needed oupt Impaired cognition 57682 6002 R41.89 Has declined since admissionC ontinuetra zadone 12.5 mg BIDContinu e supportive care, expect decline.HC P invoked while hereMonito r mood and behaviors outpt with pcp and services Recurrent falls 58065310 2 R29.6 Continue fall precaution s.Monitor for safety outpt with pcp and services Chronic ki dney disease 899745559 N18.31 GFR has varied from 25-35 since here.Jennifer nue to avoid nephrotoxi c meds as able.Jennifer nue to push po fluids.Mon itor labs outpt as neededRena l consult prn outpt as needed Anemia due to blood loss 500050076 D50.0 Hgb stable since return from hospital with dx of GAVE disease and occ vomiting episodeCon tinuepanto prazole 40 mg BID, carafate 1 gm BID, and zofran prn.F/U with GI (Dr. Shepard)last seen on 02/23/24, however no recommenda tions or progress note avail, cont to request gi notesConti nue to hold ASA at this time and fu with pcp outpt. Unstageabl e pressure injury 2453522504 L89.620 Left heel ulcer improvingC ontinue wound care as ordered, currently daily collagen and dcd daily and prn with vna helpMonito r for healing.pr osource 30 cc qdFollowed by wound care here and felt improvedmo nitor outpt with pcp and services Health Concerns Section Related Observation LastModified by Organization Detai ls LastModified Time None Recorded Concern Status LastModified by Organization Details LastModified Time None Recorded Advance Directives Directive N: Payers Encounter Date Sequence Insurance Name Policy Number Policy Iqbal Covered Member ID Iqbal Member ID Guarantor Name 02/11/2024 2 [place] Hannah Grey [id number] Hannah Grey 02/11/2024 1 [place] [employer] Hannah Grey [id number] Hannah Grey 02/16/2024 2 [place] Grey [id number] Hannah Grey 02/16/2024 1 [place] [employer] Hannah Grey [id number] Hannah Grey 02/23/2024 2 [place] Hannah Grey [id number] Hannah Grey 02/23/2024 1 [place] [employer] Hannah Grey [id number] Hannah Grey 03/08/2024 2 [place] Hannah Grey [id number] Hannah Grey 03/08/2024 1 [place] [employer] Hannah Grey [id number] Hannah Grey 03/14/2024 2 [place] Hannah Grey [id number] Hannah Grey 03/14/2024 1 [place] [employer] Hannah Grey [id number] Hannah Grey Notes Date Note Type Note Provider Name and Address Organization Details Recorded Time 02/11/2024 text/html Hannah is a 73 yo woman, likely LTC resident, seen for an acute visit today for covid positive follow up visit. Her PMH includes HTN, CAD (s/p RADHA to proximal LAD in Jul 2019), AODM with hx of DKA, CKD stage 3, GERD/GAVE s/p GI bleed, autoimmune hepatitis/cholangitis , s/p CVA, anemia, hx of left femur fx s/p ORIF 11/2023, hx of COVID 08/2020, HLD, vitamin D deficiency, hx of pancreatitis, hx of T12 & L2 compression fxs with spinal canal narrowing, depression, and insomnia. Hannah resulted covid positive on 02/06 with covid in the facility. She was started on paxlovid on 02/06. Ordered by telephone operator receptionist provider. She was changed to molnupiravir for compromised renal function with gfr of 25 on 02/07. Labs reviewed from 02/08 and stable. BUN/CR remain elevated at baseline, will monitor. On exam, Hannah states her sore throat is resolved. Her congestion and sore throat resolving. She is staying hydrated and states she is drinking lots. She is eating chicken nuggets and romansh fries today. She states she is having regular bowel movements. She is mostly euvolemic at this time. Her only concern today is getting a TV remote. Corey is working on this. Kaylynn Fan, SMILEY [address] [facility], [address], [place], [address], [facility] [employer] 02/11/2024 13:25:23 02/16/2024 text/html Hannah is seen tod ay for an acute visit. She has been followed recently due to testing covid positive on 02/06. Symptoms included sore throat and congestion. Treated with molnupiravir and supportive care, now clinically improving. Now testing negative. [facility] 02/08 stable. Upon exam, Hannah is in bed watching TV. Alert, in good spirits, all smiles and says she is feeling fine . Denies any complaints at this time. Her PMH includes HTN, CAD (s/p RADHA to proximal LAD in Jul 2019), AODM with hx of DKA, CKD stage 3, GERD/GAVE s/p GI bleed, autoimmune hepatitis/cholangitis , s/p CVA, anemia, hx of left femur fx s/p ORIF 11/2023, hx of COVID 08/2020, HLD, vitamin D deficiency, hx of pancreatitis, hx of T12 & L2 compression fxs with spinal canal narrowing, depression, and insomnia. CONRAD SMART NP [address] [facility], [address], [place], [address], [employer] 02/16/2024 14:52:51 02/23/2024 text/html Hannah is seen tod ay for a routine, 90 day visit. She is a 73 yo lady, admitted 12/01/23 after a hospitalization for a left femoral fx s/p ORIF.She was rehospitalized 12/05-12/08 for an UGI bleed due to GAVE. She got 1U PRBCs and some areas were cauterized. She was started on iron and pantoprazole.Since her return, she had been doing well except for a fall earlier in the month, no injury. She also tested positive for covid on 02/05, treated with molnupiravir, fortunately sx. were mild and she is now testing negative and considered recovered.[facility] 02/08 stable.BS decent control, most 100s-200s, occ. 300s.Has appt. to se GI today for follow up. Upon exam, Hannah is in bed. alert, smiling, in good spirits, denies any complaints or issues this am.Case discussed with nsg., no concerns at present. Her PMH includes HTN, CAD (s/p RADHA to proximal LAD in Jul 2019), AODM with hx of DKA, CKD stage 3, GERD/GAVE s/p GI bleed, autoimmune hepatitis/cholangitis , s/p CVA, anemia, hx of left femur fx s/p ORIF 11/2023, hx of COVID 08/2020, HLD, vitamin D deficiency, hx of pancreatitis, hx of T12 & L2 compression fxs with spinal canal narrowing, depression, and insomnia.MOLST: full code CONRAD SMART NP [address] [facility], [address], [place], [address], [employer] 02/23/2024 11:01:16 03/08/2024 text/html Hannah is seen tod ay for an acute visit. She is a 73 yo lady, admitted 12/01/23 after a hospitalization for a left femoral fx s/p ORIF.She was rehospitalized 12/05-12/08 for an UGI bleed due to GAVE. She got 1U PRBCs and some areas were cauterized. She was started on iron and pantoprazole.Since her return, she had been doing well except for a fall earlier in the month, no injury. She also tested positive for covid on 02/05, treated with molnupiravir, fortunately sx. were mild and she is now testing negative and considered recovered.[facility] 02/08 stable.BS decent control, most 100s-200s, occ. 300s.Had an appt. to se GI last week for follow up, no consult paperwork scanned into chart yet. On skilled care as now working with rehab. Issues with hip pain, oxycodone was stopped but since restarted on 03/07, unsure of details, lack of documentation by nsg. Upon exam, Hannah is in bed, very distressed, complaining of abdominal pain and needing to move her bowels and void.Spoke with JORDAN WORKER, so pt. can be toileted, and she said she had a medium BM yesterday.BM record reviewed, had not had a BM since 03/03. Pt. apparently is difficult to toilet as she is a daren lift, so unable to use the toilet. Using a bed cartagena causes increased hip pain and pt. does not tolerate well.Supp. requested, nsg. administered and did report a large amt. of stool that did need to be evacuated. Her PMH includes HTN, CAD (s/p RADHA to proximal LAD in Jul 2019), AODM with hx of DKA, CKD stage 3, GERD/GAVE s/p GI bleed, autoimmune hepatitis/cholangitis , s/p CVA, anemia, hx of left femur fx s/p ORIF 11/2023, hx of COVID 08/2020, HLD, vitamin D deficiency, hx of pancreatitis, hx of T12 & L2 compression fxs with spinal canal narrowing, depression, and insomnia.MOLST: full code CONRAD SMART NP [address] [facility], [address], [place], [address], [facility] [employer] 03/08/2024 11:03:37 03/14/2024 text/html Hannah is seen tod ay for an acute visit. Her PMH includes HTN, CAD (s/p RADHA to proximal LAD in Jul 2019), AODM with hx of DKA, CKD stage 3, GERD/GAVE s/p GI bleed, autoimmune hepatitis/cholangitis , s/p CVA, anemia, hx of left femur fx s/p ORIF 11/2023, hx of COVID 08/2020, HLD, vitamin D deficiency, hx of pancreatitis, hx of T12 & L2 compression fxs with spinal canal narrowing, depression, and insomnia. She is a 73 yo lady, admitted 12/01/23 after a hospitalization for a left femoral fx s/p ORIF.She was rehospitalized 12/05-12/08 for an UGI bleed due to GAVE. She got 1U PRBCs and some areas were cauterized. She was started on iron and pantoprazole.Per wound note on 03/14/24 she is followed for her left heel unstageable wound this is improving with collagen and dcd qd and prn. She remains on increased protein and offloading for this wound. Overall, Hannah refuses to work with therapy for mobility and complains of pain in her left heel and hip pain and continues on her tyl and oxycodone for the pain. Her daughter is planning on taking her home and caring for her per social human services assistants. She has been home prior to 11/21/23 admission and it is reported she has needed devices and help in place. *She will need to follow up closely with her pcp and vna for her heel wound. She will be discharged home with 53 oxycodone 5 mg tabs for pain that is for prn pain use and no script will be given. She was recently trialed off oxycodone, however felt she was in pain and needed them. On exam, she is eating eggs and states she is good . She denies any pain and states she is excited to go home. Her lungs are clear and she is in good spirits. Heel is improving. MOLST: full code Kaylynn Fan, SMILEY [address] [facility], [address], [place], [address], [facility] 03/14/2024 09:42:42 OBGyn Episode No OBEpisode recorded.
--- OUTSIDE RECORDS SUMMARY | 2024-07-01 16:50 | XMS_ITS | Encounter Summary ---
Author Organization [facility] Address [id number] [place] [phone] Care Team Providers Care Beach Expert Name Role Phone Kathy Buck MD Primary Care Provider Encounter Details Date Type Department Care Team (Late st Contact Info) Description 04/09/2024 Lab Requisition [facility] - Main Lab [address] [facility] [place] [address] Anatoliy Solano MD [address] [place] [address] Unspecified dementia, unspecified severity, without behavioral disturbance, psychotic disturbance, mood disturbance, and anxiety (CMS/HCC) Social History Tobacco Use Types Packs/Day Years Used Date Smoking Tobacco: Never Smokeless Tobacco: Never Comments Unknown Sex and Gender Information Value Date Recorded Sex Assigned at Not on file Legal Sex Female 4:34 AM EST Gender Identity Not on file Sexual Orientation Not on file documented as of this encounter Plan of Treatment Not on file documented as of this encounter Visit Diagnoses Diagnosis Unspecified dementia, unspecified severity, without behavioral disturbance, psychotic disturbance, mood disturbance, and anxiety (CMS/HCC) documented in this encounter Care Teams Beach Expert Relationship Specialty Start Date End Date Kathy Buck MD [address] [phone] PCP - General Internal Medicine 02/24/22 documented as of this encounter
--- OUTSIDE RECORDS SUMMARY | 2024-07-01 16:50 | XMS_ITS | Encounter Summary ---
Author Organization [employer] Address [address] [facility] 7t [place] [address] Care Team Providers Care Biofuels Plant Superintendent Name Role Phone Lo Donato MD Primary Care Provider [phone] Encounter Details Date Type Department Care Team (Late st Contact Info) Description 10/20/2023 Telephone [facility] MEDICINE 230 [place], [place] [phone] Lo Donato MD 230 [place], [place] [phone] Social History Tobacco Use Types Packs/Day Years [...] Description 09/28/2024 3:15 PM EDT Office Visit [facility] MEDICINE 230 [place] [address] Lo Donato MD 230 [place] [address] documented as of this encounter Visit Diagnoses Not on filedocumented in this encounter Additional Health Concerns Assessment Noted Time PHQ-9 Depression Total Score: 0 09/25/19 11:56 AM EDT documented as of this encounter Care Teams Biofuels Plant Superintendent Relationship Specialty Start Date End Date Lo Donato MD 230 [place] [address] PCP - General Family Medicine 04/25/22 [facility] [place] 03/17/24 documented as of this encounter
--- OUTSIDE RECORDS SUMMARY | 2024-07-01 16:50 | XMS_ITS | Encounter Summary ---
Author Organization [employer] Address 75 [facility] 7t [place] [address] Care Team Providers Care Industrial Equipment Wirer Name Role Phone Lo Donato MD Primary Care Provider [phone] Encounter Details Date Type Department Care Team (Late st Contact Info) Description 06/27/2024 Refill [facility] MEDICINE 230 [place], [place] [phone] Mona Cerda, PharmD 230 [place] [address] Social History Tobacco Use Types Packs/Day Years [...] encounter Miscellaneous Notes * Telephone Encounter - Mona Creda PharmD - 06/27/2024 10:55 AM EST Patients granddaughter reports they are only administering insulin lispro twice a day (breakfast and dinner) due to running low on test strips to measure BG as they are not using a CGM anymore. Reports BG in the 100's, yesterday was 200s however did not have a log or values as [facility] takes patient's BG however denies hypoglycemia. Please consider sending script for testing supplies. documented in this encounter Plan of Treatment Upcoming Encounters Date Type Department Care Team (Late st Contact Info) Description 09/28/2024 3:15 PM EDT Office Visit [facility] MEDICINE 230 [place] [address] Lo Donato MD 230 [place] [address] documented as of this encounter Visit Diagnoses Not on filedocumented in this encounter Additional Health Concerns Assessment Noted Time PHQ-9 Depression Total Score: 0 09/25/19 24 11:56 AM EDT documented as of this encounter Care Teams Industrial Equipment Wirer Relationship Specialty Start Date End Date Lo Donato MD 230 [place] [address] PCP - General Family Medicine 04/25/22 [facility] 03/17/24 documented as of this encounter
--- OUTSIDE RECORDS SUMMARY | 2024-07-01 16:50 | XMS_ITS | Encounter Summary ---
Author Organization [employer] Address 75 [facility] 7t [place] [address] Care Team Providers Care Communications Director Name Role Phone Lo Donato MD Primary Care Provider [phone] Reason for Visit * Reason Onset Date Comments Durable Medical Equipment 06/30/2024 Encounter Details Date Type Department Care Team (Late st Contact Info) Description 06/30/2024 Telephone [facility] MEDICINE 230 [place], [place] [phone] Lo Donato MD 230 [place], [place] [phone] Durable Medical Equipment Social History Tobacco Use [...] encounter Miscellaneous Notes * Telephone Encounter - Eric Dorado - 06/30/2024 2:06 PM EST Tc from [facility] with Freya requesting for pt a Heel Pressure Relief Boots due to pt having a wound. documented in this encounter Plan of Treatment Upcoming Encounters Date Type Department Care Team (Late st Contact Info) Description 09/28/2024 3:15 PM EDT Office Visit [facility] MEDICINE [address] [place] [phone] Lo Donato MD 230 [place] [address] documented as of this encounter Visit Diagnoses Not on filedocumented in this encounter Additional Health Concerns Assessment Noted Time PHQ-9 Depression Total Score: 0 09/25/19 24 11:56 AM EDT documented as of this encounter Care Teams Communications Director Relationship Specialty Start Date End Date Lo Donato MD [address] [place] [address] PCP - General Family Medicine 04/25/22 [facility] 03/17/24 documented as of this encounter
--- OUTSIDE RECORDS SUMMARY | 2024-07-01 16:50 | XMS_ITS | Encounter Summary ---
Author Organization [employer] Address 75 [facility] 7[address] [place] [address] Care Team Providers Care Frame Table Operator Helper Name Role Phone Lo Donato MD Primary Care Provider [phone] Reason for Visit * Reason Onset Date Comments Medication Question 10/27/2023 Encounter Details Date Type Department Care Team ([facility] st Contact Info) Description 10/27/2023 Telephone [facility] MEDICINE 230 [place], [place] [phone] Lo Donato MD 230 [place], [place] [phone] Medication Question Social History Tobacco Use Types Packs/Day Years [...] encounter Miscellaneous Notes * Telephone Encounter - Roxanna Goddard - 10/27/2023 1:51 PM EDT Tc from Johnny with [facility] calling to inform has notice an interaction with two medications ondansetron (Zofran) 4 MG tablet Lexapro 5 mg Any question please contact phone # [phone] documented in this encounter Plan of Treatment Upcoming Encounters Date Type Department Care Team (Late st Contact Info) Description 09/28/2024 3:15 PM EDT Office Visit [facility] MEDICINE [address] [place] [phone] Lo Donato MD [address] [place] [address] documented as of this encounter Visit Diagnoses Not on filedocumented in this encounter Additional Health Concerns Assessment Noted Time PHQ-9 Depression Total Score: 0 09/25/19 11:56 AM EDT documented as of this encounter Care Teams Frame Table Operator Helper Relationship Specialty Start Date End Date Lo Donato MD [address] [place] [phone] PCP - General Family Medicine 04/25/22 [facility] 03/17/24 documented as of this encounter
--- OUTSIDE RECORDS SUMMARY | 2024-07-01 16:50 | XMS_ITS | Encounter Summary ---
Author Organization [employer] Address 75 [facility] 7t [place] [address] Care Team Providers Care Tube Cutter Operator Name Role Phone Lo Donato MD Primary Care Provider [phone] Reason for Visit * Reason Comments Med Change Request Encounter Details Date Type Department Care Team (Late st Contact Info) Description 06/28/2024 Refill [facility] MEDICINE 230 [place], [place] [phone] Lo Donato MD 230 [place], [place] [phone] Social History Tobacco Use Types Packs/Day Years [...] Description 09/28/2024 3:15 PM EDT Office Visit [facility] MEDICINE [address] [place] [phone] Lo Donato MD [address] [place] [address] documented as of this encounter Visit Diagnoses Not on filedocumented in this encounter Additional Health Concerns Assessment Noted Time PHQ-9 Depression Total Score: 0 09/25/19 24 11:56 AM EDT documented as of this encounter Care Teams Tube Cutter Operator Relationship Specialty Start Date End Date Lo Donato MD [address] [place] [phone] PCP - General Family Medicine 04/25/22 [facility] 03/17/24 documented as of this encounter
--- OUTSIDE RECORDS SUMMARY | 2024-07-01 16:50 | XMS_ITS | Encounter Summary ---
Author Organization [employer] Address 75 [facility] 7[address] [place] [address] Care Team Providers Care Golf Course Equipment Operator Name Role Phone Lo Donato MD Primary Care Provider [phone] Reason for Visit * Reason Comments Care Coordination CHW outreach for SDO H PT-1 - LVM Encounter Details Date Type Department Care Team (Latest Contact Info) Description 06/27/2024 Patient Outreach [facility] MEDICINE 230 [place], [place] [phone] Lo Donato MD 230 [place], [place] [phone] Care Coordination (CHW outreach for SDOH PT-1 - LVM ) Social History Tobacco Use Types Packs/Day Years [...] AM EDT documented as of this encounter Progress Notes * Toi Taylor - 06/27/2024 12:50 PM EST CHW Toi Taylor, placed outbound call to patient for assistance with SDOH as a referral was placed by the provider. Patient had screened positive for the following SDOH insecurities. No answer atthis time. Patient's name and were not confirmed. CHW left detailed message and provided contact information requesting return call for assistance. Patient educated on extended clinic hours on Mondays through Wednesdays, and Walk-In Urgent Care Located in [facility] of [facility]. Patient provided with after-hours line for [facility], , which offer night time triage service and option to transfer toon call provider if needed. documented in this encounter Plan of Treatment Upcoming Encounters Date Type Department Care Team (Late st Contact Info) Description 09/28/2024 3:15 PM EDT Office Visit [facility] MEDICINE 230 [place] [address] Lo Donato MD 230 [place], [place] [phone] documented as of this encounter Visit Diagnoses Not on filedocumented in this encounter Additional Health Concerns Assessment Noted Time PHQ-9 Depression Total Score: 0 09/25/19 11:56 AM EDT documented as of this encounter Care Teams Golf Course Equipment Operator Relationship Specialty Start Date End Date Lo Donato MD 230 [place] [address] PCP - General Family Medicine 04/25/22 [facility] 03/17/24 documented as of this encounter
--- OUTSIDE RECORDS SUMMARY | 2024-07-01 16:50 | XMS_ITS | Encounter Summary ---
Author Organization [employer] Address [address] [facility] 7t [place] [address] Care Team Providers Care Vp Purchasing Name Role Phone Lo Donato MD Primary Care Provider [phone] Reason for Visit * Reason Comments HDF Encounter Details Date Type Department Care Team (Latest Contact Info) Description 07/01/2024 1:30 PM EST Office Visit [facility] MEDICINE 230 [place], [place] [phone] [facility] 230 [place], [place] [phone] Urinary incontinence due to cognitive impairment (Primary Dx); Type 2 diabetes mellitus with hyperglycemia, with long-term current use of insulin ([facility]); Uncontrolled type 2 diabetes mellitus with hyperglycemia ([facility]) Social History Tobacco Use Types Packs/Day [...] AM EDT documented as of this encounter Last Filed Vital Signs Vital Sign Reading [...] Mass Index 34 07/01/2024 1:51 PM EST documented in this encounter Plan of Treatment Upcoming Encounters Date Type Department Care Team (Late st Contact Info) Description 09/28/2024 3:15 PM EDT Office Visit [facility] MEDICINE 230 [place], [place] [phone] Lo Donato MD 230 [place] [address] documented as of this encounter Procedures Procedure Name Priority Date/Time Associated Diagnosis Comments CBC WITH AUTO DIFFERENTIAL Routine 07/01/2024 2:47 PM EST Type 2 diabetes mellitus with hyperglycemia, with long-term current use of insulin ([facility]) BASIC METABOLIC PANEL Routine 07/01/2024 2:47 PM EST Type 2 diabetes mellitus with hyperglycemia, with long-term current use of insulin ([facility]) POCT GLYCATED HEMOGLOBIN, TOTAL Routine 07/01/2024 2:24 PM EST Type 2 diabetes mellitus with hyperglycemia, with long-term current use of insulin ([facility]) POCT GLUCOSE Routine 07/01/2024 2:24 PM EST Type 2 diabetes mellitus with hyperglycemia, with long-term current use of insulin ([facility]) documented in this encounter Results * (ABNORMAL) CBC auto differential (07/01/2024 2:47 PM EST) White Blood Count 8.3 4.8 - 10.8 X10*3/uL [facility] Red Blood Count 4.41 4.20 - 5.50 X10*6/uL [facility] Hemoglobin 12.5 12.0 - 16.0 g/dl [facility] Hematocrit 39.3 37.0 - 47.0 % [facility] Mean Corpuscular Volume 89.1 80.0 - 98.0 fL [facility] Mean Corpuscular Hemoglobin 28.3 27.0 - 33.0 pg [facility] Mean Corpuscular HGB Conc 31.8 31.0 - 35.0 g/dl [facility] Red Cell Distribution Width 13.7 11.0 - 16.0 % [facility] Platelet Count 217 160 - 400 X10*3/uL [facility] Mean Platelet Volume 11.8 9.4 - 12.3 fL [facility] Neutrophils Percent Auto 75.1(H) 45 - 73 % [facility] Imm Gran Pct Auto 0.2 0.0 - 0.4 % [facility] Lymphocytes Percent Auto 17.2(L) 20 - 40 % [facility] Monocytes Percent Auto 5.0 2 - 11 % [facility] Eosinophils Percent Auto 2.1 0 - 4 % [facility] Basophils Percent Auto 0.4 0 - 2 % [facility] NRBC Pct Auto 0.0 0.0 - 0.2 /100WBC [facility] Neutrophils Absolute Auto 6.2 2.0 - 8.3 x10*3/uL [facility] Imm Gran Abs Auto 0.02 0.00 - 0.03 X10*3/uL [facility] Lymphocytes Absolute Auto 1.4 1.2 - 4.9 X10*3/uL [facility] Monocytes Absolute Auto 0.4 0.1 - 1.2 X10*3/uL [facility] Eosinophils Absolute Auto 0.2 0.0 - 0.4 X10*3/uL [facility] Basophils Absolute Auto 0.0 0.0 - 0.2 X10*3/uL [facility] NRBC Abs Auto 0.000 0.0 - 0.012 X10*3/uL [facility] Blood Venous blood specimen / Unknown 07/01/2024 2:47 PM EST 07/01/2024 4:07 PM EST [facility] LAB BLOOD ORDERABLES Final Re sult [facility] [address] [place], [place] [phone] * (ABNORMAL) Basic Metabolic Panel (07/01/2024 2:47 PM EST) Sodium 142 135 - 145 mmol/L [facility] Potassium 3.8 3.3 - 5.1 mmol/L [facility] Chloride 108 96 - 108 mmol/L [facility] Carbon Dioxide 27 22 - 29 mmol/L [facility] Anion Gap 11(L) 12 - 20 [facility] Urea Nitrogen (BUN) 21(H) 9 - 16 mg/dL [facility] Creatinine, Serum 1.45(H) 0.5 - 1.4 mg/dL [facility] Estimated Glomerular Filt Rate 35 [facility] Comment:Chronic Kidney Disea se: Estimated GFR < 60 mL/min/[id number] Kidney Disease: Estimated GFR < 15 mL/min/1.73m2 Glucose 207(H) 60 - 115 mg/dL [facility] Calcium 9.4 8.4 - 10.2 mg/dL [facility] Blood Venous blood specimen / Unknown 07/01/2024 2:47 PM EST 07/01/2024 4:07 PM EST [facility] LAB BLOOD ORDERABLES Final Re sult [facility] [address] [place] [phone] * POCT Glucose (07/01/2024 2:24 PM EST) Glucose Blood, POC 174 60 - 200 mg/dL QC Media Lot # [id number] Lot# Expiration Date Blood Capillary blood specimen / Unknown 07/01/2024 2:24 PM EST Result [facility] POINT OF CARE TEST ENTER/EDIT ORDERABLES Final Result * (ABNORMAL) POCT HGB A1C (07/01/2024 2:24 PM EST) Hemoglobin A1C 7.1(A) 4.0 - 6.0 % Blood 07/01/2024 2:24 PM EST Result [facility] POINT OF CARE TEST ENTER/EDIT ORDERABLES Final Result documented in this encounter Visit Diagnoses Diagnosis Urinary incontinence due to cognitive impairment- Primary Functional urinary incontinence Type 2 diabetes mellitus with hyperglycemia, with long-term current use of insulin ([facility]) Uncontrolled type 2 diabetes mellitus with hyperglycemia ([facility]) documented in this encounter Additional Health Concerns Assessment Noted Time PHQ-9 Depression Total Score: 0 09/25/19 24 11:56 AM EDT documented as of this encounter Care Teams Vp Purchasing Relationship Specialty Start Date End Date Lo Donato MD [address] [place] [address] PCP - General Family Medicine 04/25/22 [facility] 03/17/24 documented as of this encounter
--- OUTSIDE RECORDS SUMMARY | 2024-07-01 16:51 | XMS_ITS | Encounter Summary ---
Author Organization [facility] Address [address] [place] [phone] Care Team Providers Care Wine And Spirits Clerk Name Role Phone Kathy Buck MD Primary Care Provider Encounter Details Date Type Department Care Team (Late st Contact Info) Description 06/06/2024 Lab Requisition [facility] - Main Lab [address] [facility] [place] [address] Anatoliy Solano MD [address] [place] [address] Unspecified dementia, unspecified severity, without behavioral disturbance, [...] on file documented as of this encounter Procedures Procedure Name Priority Date/Time Associated Diagnosis Comments COMPLETE BLOOD COUNT Routine 06/07/2024 7:25 AM EST Unspecified dementia, unspecified severity, without behavioral disturbance, psychotic disturbance, mood disturbance, and anxiety (CMS/HCC) BASIC METABOLIC PANEL Routine 06/07/2024 7:25 AM EST Unspecified dementia, unspecified severity, without behavioral disturbance, psychotic disturbance, mood disturbance, and anxiety (CMS/HCC) documented in this encounter Results * (ABNORMAL) Basic metabolic panel (06/07/2024 7:25 AM EST) [facility] Signature Sodium 139 133 - 145 mmol/L LAB CHEMISTRY METHOD 06/07/2024 9:55 AM [facility] LAB Potassium 4.3 3.5 - 5.5 mmol/L LAB CHEMISTRY METHOD 06/07/2024 9:55 AM [facility] LAB Chloride 109 96 - 110 mmol/L LAB CHEMISTRY METHOD 06/07/2024 9:55 AM [facility] LAB CO2 24 21 - 32 mmol/L LAB CHEMISTRY METHOD 06/07/2024 9:55 AM [facility] Anion Gap 6 3 - 11 LAB CHEMISTRY METHOD 06/07/2024 9:55 AM [facility] LAB Glucose 137(H) 70 - 100 mg/dL LAB CHEMISTRY METHOD 06/07/2024 9:55 AM [facility] LAB BUN 41(H) 5 - 25 mg/dL LAB CHEMISTRY METHOD 06/07/2024 9:55 AM [facility] Creatinine 1.73(H) 0.50 - 1.10 mg/dL LAB CHEMISTRY METHOD 06/07/2024 9:55 AM [facility] eGFR 31(L) >=60 mL/min/1. 73m2 LAB CHEMISTRY METHOD 06/07/2024 9:55 AM [facility] LAB Comment:Calculation based on the??Chronic Kidney Disease Epidemiology Collaboration (CKD-EPI) equation refit??without adjustment for race. BUN/Creatinine Ratio 23.7 LAB CHEMISTRY METHOD 06/07/2024 9:55 AM [facility] LAB Calcium 9.2 8.5 - 10.5 mg/dL LAB CHEMISTRY METHOD 06/07/2024 9:55 AM [facility] LAB Blood Venous blood specimen / Unknown Venipuncture / Unknown 06/07/2024 7:25 AM EST 06/07/2024 9:24 AM EST us Anatoliy Solano MD LAB BLOOD ORDERABLES Final Result [facility] [address] [place] [address], * (ABNORMAL) Complete blood count (06/07/2024 7:25 AM EST) [facility] Signature WBC 6.9 4.8 - 10.8 K/mcL LAB HEMETOLOGY METHOD 06/07/2024 9:35 AM EST [facility] RBC 3.40(L) 3.80 - 4.80 M/mcL LAB HEMETOLOGY METHOD 06/07/2024 9:35 AM [facility] Hemoglobin 9.6(L) 11.5 - 16.0 g/dL LAB HEMETOLOGY METHOD 06/07/2024 9:35 AM [facility] LAB Hematocrit 30.5(L) 35.0 - 47.0 % LAB HEMETOLOGY METHOD 06/07/2024 9:35 AM [facility] LAB MCV 90.8 79.0 - 98.0 FL LAB HEMETOLOGY METHOD 06/07/2024 9:35 AM [facility] LAB MCH 28.6 27.0 - 32.0 pcg LAB HEMETOLOGY METHOD 06/07/2024 9:35 AM [facility] LAB MCHC 31.5(L) 32.0 - 37.0 g/dL LAB HEMETOLOGY METHOD 06/07/2024 9:35 AM [facility] LAB RDW 14.7 11.0 - 15.0 % LAB HEMETOLOGY METHOD 06/07/2024 9:35 AM [facility] LAB Platelets 166 130 - 400 K/mcL LAB HEMETOLOGY METHOD 06/07/2024 9:35 AM [facility] LAB MPV 11.9(H) 7.0 - 11.0 FL LAB HEMETOLOGY METHOD 06/07/2024 9:35 AM [facility] LAB NRBC 0.0 <1.0 % LAB HEMETOLOGY METHOD 06/07/2024 9:35 AM EST [facility] NRBC Absolute 0.00 <0.10 K/mcL LAB HEMETOLOGY METHOD 06/07/2024 9:35 AM EST [facility] Blood Venous blood specimen / Unknown Venipuncture / Unknown 06/07/2024 7:25 AM EST 06/07/2024 9:24 AM EST us Anatoliy Solano MD LAB BLOOD ORDERABLES Final Result [facility] [address] [place] [address], documented in this encounter Visit Diagnoses Diagnosis Unspecified dementia, unspecified severity, without behavioral disturbance, psychotic disturbance, mood disturbance, and anxiety (CMS/HCC) documented in this encounter Care Teams Wine And Spirits Clerk Relationship Specialty Start Date End Date Kathy Buck MD [address] [place] [phone] PCP - General Internal Medicine 02/24/22 documented as of this encounter
--- OUTSIDE RECORDS SUMMARY | 2024-07-01 16:51 | XMS_ITS | Encounter Summary ---
Author Organization [facility] Address [address] [place] [address] Care Team Providers Care Wood Room Hand Name Role Phone Kathy Buck MD Primary Care Provider [phone] Encounter Details Date Type Department Care Team (Late st Contact Info) Description 04/23/2024 Lab Requisition [facility] - Main Lab 299 [facility] [place] [address] Anatoliy Solano MD [address] [place] [address] Type 2 diabetes mellitus without complications (CMS/HCC); Unspecified dementia, unspecified severity, without behavioral disturbance, [...] Associated Diagnosis Comments COMPLETE BLOOD COUNT Routine 04/25/2024 5:48 AM EST Type 2 diabetes mellitus without complications (CMS/HCC) Unspecified dementia, unspecified severity, without behavioral disturbance, psychotic disturbance, mood disturbance, and anxiety (CMS/HCC) BASIC METABOLIC PANEL Routine 04/25/2024 5:48 AM EST Type 2 diabetes mellitus without complications (CMS/HCC) Unspecified dementia, unspecified severity, without behavioral disturbance, psychotic disturbance, mood disturbance, and anxiety (CMS/HCC) documented in this encounter Results * (ABNORMAL) Basic metabolic panel (04/25/2024 5:48 AM EST) Sodium 139 133 - 145 mmol/L LAB CHEMISTRY METHOD 04/25/2024 2:47 PM [facility] Potassium 4.7 3.5 - 5.5 mmol/L LAB CHEMISTRY METHOD 04/25/2024 2:47 PM [facility] Chloride 112(H) 96 - 110 mmol/L LAB CHEMISTRY METHOD 04/25/2024 2:47 PM [facility] CO2 25 21 - 32 mmol/L LAB CHEMISTRY METHOD 04/25/2024 2:47 PM [facility] Anion Gap 2(L) 3 - 11 LAB CHEMISTRY METHOD 04/25/2024 2:47 PM [facility] Glucose 99 70 - 100 mg/dL LAB CHEMISTRY METHOD 04/25/2024 2:47 PM [facility] BUN 60(H) 5 - 25 mg/dL LAB CHEMISTRY METHOD 04/25/2024 2:47 PM [facility] Creatinine 2.30(H) 0.50 - 1.10 mg/dL LAB CHEMISTRY METHOD 04/25/2024 2:47 PM [facility] eGFR 22(L) >=60 mL/min/1. 73m2 LAB CHEMISTRY METHOD 04/25/2024 2:47 PM [facility] Comment:Calculation based on the??Chronic Kidney Disease Epidemiology Collaboration (CKD-EPI) equation refit??without adjustment for race. BUN/Creatinine Ratio 26.1 LAB CHEMISTRY METHOD 04/25/2024 2:47 PM [facility] Calcium 9.4 8.5 - 10.5 mg/dL LAB CHEMISTRY METHOD 04/25/2024 2:47 PM [facility] Blood Venous blood specimen / Unknown Venipuncture / Unknown 04/25/2024 5:48 AM EST 04/25/2024 11:53 AM EST us Anatoliy Solano MD LAB BLOOD ORDERABLES Final Result [facility] [address] [place] [address], * (ABNORMAL) Complete blood count (04/25/2024 5:48 AM EST) WBC 7.7 4.8 - 10.8 K/mcL LAB HEMETOLOGY METHOD 04/25/2024 12:55 PM EST [facility] RBC 3.60(L) 3.80 - 4.80 M/mcL LAB HEMETOLOGY METHOD 04/25/2024 12:55 PM [facility] Hemoglobin 10.3(L) 11.5 - 16.0 g/dL LAB HEMETOLOGY METHOD 04/25/2024 12:55 PM [facility] Hematocrit 33.4(L) 35.0 - 47.0 % LAB HEMETOLOGY METHOD 04/25/2024 12:55 PM [facility] MCV 93.0 79.0 - 98.0 FL LAB HEMETOLOGY METHOD 04/25/2024 12:55 PM [facility] MCH 28.7 27.0 - 32.0 pcg LAB HEMETOLOGY METHOD 04/25/2024 12:55 PM [facility] MCHC 30.8(L) 32.0 - 37.0 g/dL LAB HEMETOLOGY METHOD 04/25/2024 12:55 PM [facility] RDW 16.6(H) 11.0 - 15.0 % LAB HEMETOLOGY METHOD 04/25/2024 12:55 PM [facility] Platelets 252 130 - 400 K/mcL LAB HEMETOLOGY METHOD 04/25/2024 12:55 PM [facility] MPV 11.5(H) 7.0 - 11.0 FL LAB HEMETOLOGY METHOD 04/25/2024 12:55 PM EST [facility] NRBC 0.0 <1.0 % LAB HEMETOLOGY METHOD 04/25/2024 12:55 PM EST [facility] NRBC Absolute 0.00 <0.10 K/mcL LAB HEMETOLOGY METHOD 04/25/2024 12:55 PM EST [facility] Blood Venous blood specimen / Unknown Venipuncture / Unknown 04/25/2024 5:48 AM EST 04/25/2024 11:53 AM EST us Anatoliy Solano MD LAB BLOOD ORDERABLES Final Result [facility] [address] [place] [address], documented in this encounter Visit Diagnoses Diagnosis Type 2 diabetes mellitus without complications (CMS/HCC) Unspecified dementia, unspecified severity, without behavioral disturbance, psychotic disturbance, mood disturbance, and anxiety (CMS/HCC) documented in this encounter Care Teams Wood Room Hand Relationship Specialty Start Date End Date Kathy Buck MD [address] [place] [phone] PCP - General Internal Medicine 02/24/22 documented as of this encounter
--- OUTSIDE RECORDS SUMMARY | 2024-07-01 16:51 | XMS_ITS | Encounter Summary ---
Author Organization [employer] [facility] Address [address] [facility] [address] [place] [address] Care Team Providers Care Cardroom Supervisor Name Role Phone Lo Donato MD Primary Care Provider [phone] Encounter Details Date Type Department Care Team (Late st Contact Info) Description 01/30/2023 Telephone [facility] [address] [place] [phone] Andie Bella LPN Social History Tobacco Use Types Packs/Day Years Used Date Smoking Tobacco: Never Smokeless Tobacco: Never Alcohol Use Standard Drinks/Week Comments Never 0 (1 standard drink = 0.6 oz pur e alcohol) Depression Answer Date Recorded Patient Health Questionnaire-9 Score 11 01/21/2023 Depression Answer Date Recorded Patient Health Questionnaire-2 [...] Description 09/28/2024 3:15 PM EDT Office Visit [facility] [address] [place] [address] Lo Donato MD [address] [place] [address] documented as of this encounter Visit Diagnoses Not on filedocumented in this encounter Additional Health Concerns Assessment Noted Time PHQ-9 Depression Total Score: 11 01/21/ 023 10:00 AM EDT documented as of this encounter Care Teams Cardroom Supervisor Relationship Specialty Start Date End Date Lo Donato MD [address] [place] [address] PCP - General Family Medicine 04/25/22 [facility] 03/17/24 documented as of this encounter
--- OUTSIDE RECORDS SUMMARY | 2024-07-01 16:51 | XMS_ITS | Clinical Summary ---
Author Organization [facility] Address [address] [facility] [address] [place] [address] Phone Care Team Providers Care Carton Filling Machine Operator Name Role Phone Malik Shepard MD Primary Care Provider [phone] Allergies No known active allergies Medications traZODone (DESYREL) 50 MG tablet Take 50 mg by mouth every night Active enalapril (VASOTEC) 5 MG tablet Take 5 mg by mouth 1 (one) time each day Active aspirin (ST FRENCH) 81 MG EC tablet Take 81 mg by mouth 1 (one) time each day Active amLODIPine (NORVASC) 2.5 MG tablet Take 2.5 mg by mouth 1 (one) time each day Active metoprolol tartrate (LOPRESSOR) 25 MG tablet Take 12.5 mg by mouth 1 (one) time each day Active ticagrelor (BRILINTA) 90 MG tablet Take 90 mg by mouth 2 (two) times a day Active cholecalciferol (VITAMIN D-3) 50 MCG (1999 UT) tablet 0 Active bisacodyl (DULCOLAX) 5 MG EC tablet Take 5 mg by mouth 1 (one) time each day if needed for constipation Do not crush, chew, or split. Active ferrous sulfate 325 (65 Fe) MG tablet Take 325 mg by mouth 1 (one) time each day with breakfast Active fluticasone (FLONASE) 50 MCG/ACT nasal spray Administer 1 spray into each nostril 2 (two) times a day Active insulin lispro (HumaLOG) 100 UNIT/ML injection Inject 16 Units under the skin 3 (three) times a day before meals Sliding scale Active lactulose (CHRONULAC) 10 GM/15ML solution Take 15 mL by mouth 1 (one) time each day Active loratadine (CLARITIN) 10 MG tablet Take 10 mg by mouth 1 (one) time each day Active metoclopramide (REGLAN) 5 MG tablet Take 5 mg by mouth 4 (four) times a day Active Insulin Glargine (TOUJEO SOLOSTAR SC) Inject 60 Units under the skin Active Active Problems Problem Noted Date Diagnosed Date Cirrhosis of liver 09/29/2022 Coronary arteriosclerosis 09/29/2022 Unspecified dementia, unspec ified severity, without behavioral disturbance, psychotic disturbance, mood disturbance, and anxiety 09/29/2022 Transient cerebral ischemia 09/29/2022 Stage 3a chronic kidney disease 11/08/2019 Overview (05/07/2020): Update for Diagnosis Load Type 2 diabetes mellitus Essential hypertension Resolved Problems Problem Noted Date Diagnosed Date Resolved Date Microalbuminuria 04/16/2021 Hyperlipidemia 04/16/2021 Neuropathy due to diabetes mellitus 04/16/2021 Family History Medical History Relation Comments Diabetes Mother Kidney disease Mother Relation Status Comments Mother Social History Tobacco Use Types Packs/Day Years Used Date Smoking Tobacco: Never Comments Unknown Sex and Gender Information Value Date Recorded Sex Assigned at Not on file Legal Sex Female 4:31 PM EST Gender Identity Not on file Sexual Orientation Not on file Last Filed Vital Signs Vital Sign Reading Time Taken Comments Blood Pressure 134/56 04/16/2021 3:05 PM EST Pulse 80 02/15/2019 12:00 PM EDT Temperature - - Respiratory Rate - - Oxygen Saturation - - Inhaled Oxygen Concentration - - Weight 71.2 kg (157 lb) 04/16/2021 3:05 PM EST Height 154.9 cm (5' 1 ) 02/15/2019 12:00 PM EDT Body Mass Index 29.66 02/15/2019 12:00 PM EDT Plan of Treatment Health Maintenance Due Date Last Done Comments Breast Cancer Screening 1950 Pneumococcal Vaccine: 65+ Years (1 of 2 - PCV) 1956 Colorectal Cancer Screening: Annual FOBT 12/22/1999 Colorectal Cancer Screening: Colonoscopy 12/22/1999 Colorectal Cancer Screening: Sigmoidoscopy 12/22/1999 Diabetes: Ophthalmology Exam 07/25/2019 Diabetes: Pedal Pulse Checked 07/25/2019 Diabetes: Sensory Foot Exam 07/25/2019 Diabetes: Visual Foot Exam 07/25/2019 Diabetes: Hemoglobin A1C 07/15/2021 021, 09/14/2018 Influenza Vaccine (#1) 2024 Hepatitis B Vaccine Aged Out No longe r eligible based on patient's age to complete this topic Procedures Procedure Name Priority Date/Time Associated Diagnosis Comments HEMOGLOBIN A1C Routine 04/16/2021 2:33 PM EST Stage 3a chronic kidney disease (HCC) from Last 3 Months or Most Recently Relevant to Health Maintenance Results * (ABNORMAL) Hemoglobin A1c (04/16/2021 2:33 PM EST) Hemoglobin A1C 7.7(H) (4.0-5.6) % [facility] Comment: MONITORING: In known diabetic patients, hemoglobin A1c targets should be discussed with health care provider. DIAGNOSTIC USE: ??The [place] Diabetes Association (ADA) and the World Health Organization (WHO) recommend the use of HbA1c to diagnose diabetes using a threshold of 6.5%. Patients who have an HbA1c between 5.7% and 6.4% are considered at increased risk for developing diabetes in the future. CAUTION: Falsely low HbA1c results may be observed in patients with hemolytic anemia, homozygous forms of abnormal hemoglobin (e.g. SS, CC, SC), , recent blood loss or hemoglobin F greater than 7%. Fructosamine may be used as an alternate test in these cases. REFERENCE: ADA: Standards of Medical Care in Diabetes 2020, The Journal of Clinical and Applied Research and Education Volume 43, Supplement 1 Testing performed or reported by [facility], a Service of [facility], [address] [place] [address] Fer Arauz MD, Pet Technologist [facility]# [id number] Blood (Blood, Venous) 04/16/2021 2:33 PM EST 04/16/2021 2:41 PM EST us [facility] LAB BLOOD ORDERABLES Final Res ult [facility] from Last 3 Months or Most Recently Relevant to Health Maintenance Insurance [facility] MEDIC[facility] Care Teams Carton Filling Machine Operator Relationship Specialty Start Date End Date Malik Shepard MD [address] [place] [address] PCP - General Gastroenterology 06/23/22
--- OUTSIDE RECORDS SUMMARY | 2024-07-01 16:51 | XMS_ITS | Encounter Summary ---
Author Organization [facility] Address [address] [place] [address] Care Team Providers Care Bilingual Teacher Assistant Name Role Phone Kathy Buck MD Primary Care Provider Encounter Details Date Type Department Care Team (Late st Contact Info) Description 03/14/[address] [facility] - Main Lab 299 [facility] [place] [address] Yovanny Golden MD [address] [facility] [address] [place], [address] Essential (primary) hypertension Social History Tobacco Use Types Packs/Day Years [...] as of this encounter Visit Diagnoses Diagnosis Essential (primary) hypertension Unspecified essential hypertension documented in this encounter Care Teams Bilingual Teacher Assistant Relationship Specialty Start Date End Date Kathy Buck MD [address] [facility] 1 [place] [phone] PCP - General Internal Medicine 02/24/22 documented as of this encounter
--- OUTSIDE RECORDS SUMMARY | 2024-07-01 16:51 | XMS_ITS | Encounter Summary ---
Author Organization [employer] Address [address] [facility] 7t [place] [address] Care Team Providers Care Maintenance Department Manager Name Role Phone Lo Donato MD Primary Care Provider [phone] Encounter Details Date Type Department Care Team (Late st Contact Info) Description 02/25/2023 Abstract [facility] [address] [place], [place] [phone] Lo Donato MD [address] [place], [place] [phone] Social History Tobacco Use Types Packs/Day Years [...] 09/28/2024 3:15 PM EDT Office Visit [facility] [address] [place] [address] Lo Donato MD [address] [place] [address] documented as of this encounter Visit Diagnoses Not on filedocumented in this encounter Additional Health Concerns Assessment Noted Time PHQ-9 Depression Total Score: 11 01/21/ 023 10:00 AM EDT documented as of this encounter Care Teams Maintenance Department Manager Relationship Specialty Start Date End Date Lo Donato MD [address] [place] [address] PCP - General Family Medicine 04/25/22 [facility] 03/17/24 documented as of this encounter
--- OUTSIDE RECORDS SUMMARY | 2024-07-01 16:51 | XMS_ITS | Encounter Summary ---
Author Organization [facility] Address [address] [place] [address] Care Team Providers Care Automobile Assembler Name Role Phone Kathy Buck MD Primary Care Provider [phone] Encounter Details Date Type Department Care Team (Late st Contact Info) Description 05/31/2024 Lab Requisition [facility] - Main Lab 299 [facility] [place] [address] Anatoliy Solano MD [address] [place] [address] Unspecified dementia, unspecified severity, without behavioral disturbance, [...] Associated Diagnosis Comments COMPLETE BLOOD COUNT Routine 05/31/2024 5:00 AM EST Unspecified dementia, unspecified severity, without behavioral disturbance, psychotic disturbance, mood disturbance, and anxiety (CMS/HCC) BASIC METABOLIC PANEL Routine 05/31/2024 5:00 AM EST Unspecified dementia, unspecified severity, without behavioral disturbance, psychotic disturbance, mood disturbance, and anxiety (CMS/HCC) documented in this encounter Results * (ABNORMAL) Basic metabolic panel (05/31/2024 5:00 AM EST) Sodium 137 133 - 145 mmol/L LAB CHEMISTRY METHOD 05/31/2024 8:34 AM [facility] Potassium 4.8 3.5 - 5.5 mmol/L LAB CHEMISTRY METHOD 05/31/2024 8:34 AM [facility] Chloride 104 96 - 110 mmol/L LAB CHEMISTRY METHOD 05/31/2024 8:34 AM [facility] CO2 27 21 - 32 mmol/L LAB CHEMISTRY METHOD 05/31/2024 8:34 AM [facility] Anion Gap 6 3 - 11 LAB CHEMISTRY METHOD 05/31/2024 8:34 AM [facility] Glucose 133(H) 70 - 100 mg/dL LAB CHEMISTRY METHOD 05/31/2024 8:34 AM [facility] BUN 44(H) 5 - 25 mg/dL LAB CHEMISTRY METHOD 05/31/2024 8:34 AM [facility] Creatinine 2.21(H) 0.50 - 1.10 mg/dL LAB CHEMISTRY METHOD 05/31/2024 8:34 AM [facility] eGFR 23(L) >=60 mL/min/1. 73m2 LAB CHEMISTRY METHOD 05/31/2024 8:34 AM [facility] Comment:Calculation based on the??Chronic Kidney Disease Epidemiology Collaboration (CKD-EPI) equation refit??without adjustment for race. BUN/Creatinine Ratio 19.9 LAB CHEMISTRY METHOD 05/31/2024 8:34 AM [facility] Calcium 9.5 8.5 - 10.5 mg/dL LAB CHEMISTRY METHOD 05/31/2024 8:34 AM [facility] Blood Venous blood specimen / Unknown Venipuncture / Unknown 05/31/2024 5:00 AM EST 05/31/2024 7:46 AM EST us Anatoliy Solano MD LAB BLOOD ORDERABLES Final Result [facility] [address] [place] [address], * (ABNORMAL) Complete blood count (05/31/2024 5:00 AM EST) [facility] Signature WBC 7.6 4.8 - 10.8 K/mcL LAB HEMETOLOGY METHOD 05/31/2024 8:30 AM EST [facility] RBC 3.60(L) 3.80 - 4.80 M/mcL LAB HEMETOLOGY METHOD 05/31/2024 8:30 AM EST [facility] Hemoglobin 10.2(L) 11.5 - 16.0 g/dL LAB HEMETOLOGY METHOD 05/31/2024 8:30 AM [facility] Hematocrit 32.8(L) 35.0 - 47.0 % LAB HEMETOLOGY METHOD 05/31/2024 8:30 AM [facility] MCV 91.4 79.0 - 98.0 FL LAB HEMETOLOGY METHOD 05/31/2024 8:30 AM [facility] MCH 28.4 27.0 - 32.0 pcg LAB HEMETOLOGY METHOD 05/31/2024 8:30 AM [facility] MCHC 31.1(L) 32.0 - 37.0 g/dL LAB HEMETOLOGY METHOD 05/31/2024 8:30 AM EST [facility] RDW 14.6 11.0 - 15.0 % LAB HEMETOLOGY METHOD 05/31/2024 8:30 AM [facility] Platelets 205 130 - 400 K/mcL LAB HEMETOLOGY METHOD 05/31/2024 8:30 AM [facility] MPV 11.8(H) 7.0 - 11.0 FL LAB HEMETOLOGY METHOD 05/31/2024 8:30 AM [facility] NRBC 0.0 <1.0 % LAB HEMETOLOGY METHOD 05/31/2024 8:30 AM EST [facility] NRBC Absolute 0.00 <0.10 K/mcL LAB HEMETOLOGY METHOD 05/31/2024 8:30 AM EST [facility] Blood Venous blood specimen / Unknown Venipuncture / Unknown 05/31/2024 5:00 AM EST 05/31/2024 7:46 AM EST us Anatoliy Solano MD LAB BLOOD ORDERABLES Final Result [facility] [address] [place] [address], documented in this encounter Visit Diagnoses Diagnosis Unspecified dementia, unspecified severity, without behavioral disturbance, psychotic disturbance, mood disturbance, and anxiety (CMS/HCC) documented in this encounter Care Teams Automobile Assembler Relationship Specialty Start Date End Date Kathy Buck MD [address] [place] [phone] PCP - General Internal Medicine 02/24/22 documented as of this encounter
--- OUTSIDE RECORDS SUMMARY | 2024-07-01 16:51 | XMS_ITS | Encounter Summary ---
Author Organization [facility] Address [address] [place] [phone] Care Team Providers Care Customer Service Representative Teller Name Role Phone Kathy Buck MD Primary Care Provider [phone] Encounter Details Date Type Department Care Team (Late st Contact Info) Description 04/29/2024 Lab Requisition [facility] - Main Lab [address] [place] [address] Anatoliy Solano MD [address] [place] [address] Type 2 diabetes mellitus with diabetic chronic kidney disease ([facility]/HCC) Social History Tobacco Use Types Packs/Day Years [...] Date/Time Associated Diagnosis Comments HEMOGLOBIN A1C Routine 04/29/2024 7:24 AM EST Type 2 diabetes mellitus with diabetic chronic kidney disease (CMS/HCC) documented in this encounter Results * Hemoglobin A1c (04/29/2024 7:24 AM EST) Hemoglobin A1C 6.4 <6.5 % LAB CHEMISTRY METHOD 04/29/2024 12:34 PM EST [facility] Mean Bld Glu Estim. 137 mg/dL LAB CHEMISTRY METHOD 04/29/2024 12:34 PM EST [facility] Blood Venous blood specimen / Unknown Venipuncture / Unknown 04/29/2024 7:24 AM EST 04/29/2024 10:29 AM EST Anatoliy Solano MD LAB BLOOD ORDERABLES Final Result [facility] [address] [place] [address], documented in this encounter Visit Diagnoses Diagnosis Type 2 diabetes mellitus with diabetic chronic kidney disease (CMS/HCC) documented in this encounter Care Teams Customer Service Representative Teller Relationship Specialty Start Date End Date Kathy Buck MD [address] [place] [phone] PCP - General Internal Medicine 02/24/22 documented as of this encounter
--- OUTSIDE RECORDS SUMMARY | 2024-07-01 16:51 | XMS_ITS | Encounter Summary ---
Author Organization [employer] Address [address] [facility] 7t [place] [address] Care Team Providers Care Sash Maker Name Role Phone Lo Donato MD Primary Care Provider [phone] Reason for Visit * Reason Comments Med Refill Encounter Details Date Type Department Care Team (Late st Contact Info) Description 02/23/2023 Refill [facility] [address] [place], [place] [phone] Essence Villa MD [address] [place], [place] [phone] Neck pain Social History Tobacco Use Types Packs/Day Years [...] Office Visit [facility] [address] [place] [address] Lo Donato MD [address] [place] [address] documented as of this encounter Visit Diagnoses Diagnosis Neck pain Cervicalgia documented in this encounter Additional Health Concerns Assessment Noted Time PHQ-9 Depression Total Score: 11 023 10:00 AM EDT documented as of this encounter Care Teams Sash Maker Relationship Specialty Start Date End Date Lo Donato MD [address] [place] [phone] PCP - General Family Medicine 04/25/22 [facility] 03/17/24 documented as of this encounter
--- OUTSIDE RECORDS SUMMARY | 2024-07-01 16:51 | XMS_ITS | Encounter Summary ---
Author Organization [facility] [facility] Address [address] [facility] [address] [place] [address] Care Team Providers Care Automatic Blocker Name Role Phone Lo Donato MD Primary Care Provider [phone] Reason for Visit * Reason Comments Med Change Request Encounter Details Date Type Department Care Team (Late st Contact Info) Description 12/29/2022 Refill [facility] [address] [place] [address] Lo Donato MD [address] [place] [phone] Social History Tobacco Use Types Packs/Day Years [...] 09/28/2024 3:15 PM EDT Office Visit [facility] [address] [place] [phone] Lo Donato MD [address] [place] [phone] documented as of this encounter Visit Diagnoses Not on filedocumented in this encounter Care Teams Automatic Blocker Relationship Specialty Start Date End Date Lo Donato MD [address] [place] [phone] PCP - General Family Medicine 04/25/22 [facility] 03/17/24 documented as of this encounter
--- OUTSIDE RECORDS SUMMARY | 2024-07-01 16:51 | XMS_ITS | Encounter Summary ---
Author Organization [facility] Address [address] [place] [phone] Care Team Providers Care Foundry Metallurgist Name Role Phone Kathy Buck MD Primary Care Provider Encounter Details Date Type Department Care Team (Late st Contact Info) Description 05/25/2024 Lab Requisition [facility] - Main Lab 299 [facility] [place] [address] Anatoliy Solano MD [address] [place] [address] Unspecified dementia, unspecified severity, without behavioral disturbance, [...] (CMS/HCC) documented in this encounter Care Teams Foundry Metallurgist Relationship Specialty Start Date End Date Kathy Buck MD [address] [phone] PCP - General Internal Medicine 02/24/22 documented as of this encounter
--- OUTSIDE RECORDS SUMMARY | 2024-07-01 16:51 | XMS_ITS | Encounter Summary ---
Author Organization [facility] Address [address] [place] [phone] Care Team Providers Care Building Specialist Name Role Phone Kathy Buck MD Primary Care Provider [phone] Encounter Details Date Type Department Care Team (Late st Contact Info) Description 04/15/[address] [facility] - Main Lab [address] [place] [address] Anatoliy Solano MD [address] [place] [address] Unspecified dementia, unspecified severity, without behavioral disturbance, [...] Procedure Name Priority Date/Time Associated Diagnosis Comments BASIC METABOLIC PANEL Routine 04/18/2024 5:41 AM EST Unspecified dementia, unspecified severity, without behavioral disturbance, psychotic disturbance, mood disturbance, and anxiety (CMS/HCC) documented in this encounter Results * (ABNORMAL) Basic metabolic panel (04/18/2024 5:41 AM EST) Sodium 140 133 - 145 mmol/L LAB CHEMISTRY METHOD 04/18/2024 4:01 PM EST [facility] Potassium 4.9 3.5 - 5.5 mmol/L LAB CHEMISTRY METHOD 04/18/2024 4:01 PM [facility] LAB Comment:Hemolysis present Chloride 109 96 - 110 mmol/L LAB CHEMISTRY METHOD 04/18/2024 4:01 PM [facility] CO2 22 21 - 32 mmol/L LAB CHEMISTRY METHOD 04/18/2024 4:01 PM [facility] Anion Gap 9 3 - 11 LAB CHEMISTRY METHOD 04/18/2024 4:01 PM [facility] Glucose 177(H) 70 - 100 mg/dL LAB CHEMISTRY METHOD 04/18/2024 4:01 PM [facility] BUN 57(H) 5 - 25 mg/dL LAB CHEMISTRY METHOD 04/18/2024 4:01 PM [facility] LAB Comment:Results verified by repeat testing Creatinine 1.98(H) 0.50 - 1.10 mg/dL LAB CHEMISTRY METHOD 04/18/2024 4:01 PM [facility] eGFR 26(L) >=60 mL/min/1. 73m2 LAB CHEMISTRY METHOD 04/18/2024 4:01 PM [facility] LAB Comment:Calculation based on the??Chronic Kidney Disease Epidemiology Collaboration (CKD-EPI) equation refit??without adjustment for race. BUN/Creatinine Ratio 28.8 LAB CHEMISTRY METHOD 04/18/2024 4:01 PM [facility] Calcium 9.8 8.5 - 10.5 mg/dL LAB CHEMISTRY METHOD 04/18/2024 4:01 PM [facility] Blood Venous blood specimen / Unknown Venipuncture / Unknown 04/18/2024 5:41 AM EST 04/18/2024 10:35 AM EST us Anatoliy Solano MD LAB BLOOD ORDERABLES Final Result [facility] [address] [place] [address], documented in this encounter Visit Diagnoses Diagnosis Unspecified dementia, unspecified severity, without behavioral disturbance, psychotic disturbance, mood disturbance, and anxiety (CMS/HCC) documented in this encounter Care Teams Building Specialist Relationship Specialty Start Date End Date Kathy Buck MD [address] [place] [phone] PCP - General Internal Medicine 02/24/22 documented as of this encounter
--- OUTSIDE RECORDS SUMMARY | 2024-07-01 16:51 | XMS_ITS | Encounter Summary ---
Author Organization [facility] Address [address] [place] [phone] Care Team Providers Care Manager Customer Name Role Phone Kathy Buck MD Primary Care Provider Encounter Details Date Type Department Care Team (Late st Contact Info) Description 05/06/2024 Lab Requisition [facility] - Main Lab [address] [facility] [place] [address] Anatoliy Solano MD [address] [place] [address] Unspecified dementia, unspecified severity, without behavioral disturbance, [...] (CMS/HCC) documented in this encounter Care Teams Manager Customer Relationship Specialty Start Date End Date Kathy Buck MD [address] [phone] PCP - General Internal Medicine 02/24/22 documented as of this encounter
--- OUTSIDE RECORDS SUMMARY | 2024-07-01 16:51 | XMS_ITS | Encounter Summary ---
Author Organization [facility] Address [address] [facility] [address] [place] [address] Care Team Providers Care Clinical Appeals Reviewer Name Role Phone Lo Donato MD Primary Care Provider [phone] Encounter Details Date Type Department Care Team (Late st Contact Info) Description 12/01/2022 Abstract [employer] [address] [place] [address] [phone] Lo Donato MD [address] [place] [address] [phone] Social History Tobacco Use Types Packs/Day Years [...] Orientation Straight 03/03/2022 10 :34 AM EDT COVID-19 Exposure Response Date Recorded In the last 10 days, have yo u been in contact with someone who was confirmed or suspected to have Coronavirus/COVID-19? No / Unsure 11/10/2022 2:56 PM EDT documented as of this encounter Plan of Treatment Upcoming Encounters Date Type Department Care Team (Late st Contact Info) Description 09/28/2024 3:15 PM EDT Office Visit [facility] [address] [place] [address] [phone] Lo Donato MD [address] [place], [place] [phone] documented as of this encounter Visit Diagnoses Not on filedocumented in this encounter Care Teams Clinical Appeals Reviewer Relationship Specialty Start Date End Date Lo Donato MD [address] [place] [address] PCP - General Family Medicine 04/25/22 [facility] 03/17/24 documented as of this encounter
--- OUTSIDE RECORDS SUMMARY | 2024-07-01 16:51 | XMS_ITS | Encounter Summary ---
Author Organization [facility] Address [address] [place] [phone] Care Team Providers Care Drapery Hand Name Role Phone Kathy Buck MD Primary Care Provider Encounter Details Date Type Department Care Team (Late st Contact Info) Description 04/05/2024 Lab Requisition [facility] - Main Lab 299 [facility] [place] [address] Anatoliy Solano MD [address] [place] [address] Unspecified dementia, unspecified severity, without behavioral disturbance, [...] Associated Diagnosis Comments COMPLETE BLOOD COUNT Routine 04/05/2024 7:43 AM EST Unspecified dementia, unspecified severity, without behavioral disturbance, psychotic disturbance, mood disturbance, and anxiety (CMS/HCC) BASIC METABOLIC PANEL Routine 04/05/2024 7:43 AM EST Unspecified dementia, unspecified severity, without behavioral disturbance, psychotic disturbance, mood disturbance, and anxiety (CMS/HCC) documented in this encounter Results * (ABNORMAL) Basic metabolic panel (04/05/2024 7:43 AM EST) [facility] Signature Sodium 140 133 - 145 mmol/L LAB CHEMISTRY METHOD 04/05/2024 10:30 AM [facility] Potassium 4.9 3.5 - 5.5 mmol/L LAB CHEMISTRY METHOD 04/05/2024 10:30 AM [facility] Chloride 108 96 - 110 mmol/L LAB CHEMISTRY METHOD 04/05/2024 10:30 AM [facility] CO2 23 21 - 32 mmol/L LAB CHEMISTRY METHOD 04/05/2024 10:30 AM [facility] Anion Gap 9 3 - 11 LAB CHEMISTRY METHOD 04/05/2024 10:30 AM [facility] Glucose 51(L) 70 - 100 mg/dL LAB CHEMISTRY METHOD 04/05/2024 10:30 AM [facility] BUN 36(H) 5 - 25 mg/dL LAB CHEMISTRY METHOD 04/05/2024 10:30 AM [facility] Creatinine 1.80(H) 0.50 - 1.10 mg/dL LAB CHEMISTRY METHOD 04/05/2024 10:30 AM [facility] eGFR 29(L) >=60 mL/min/1. 73m2 LAB CHEMISTRY METHOD 04/05/2024 10:30 AM [facility] LAB Comment:Calculation based on the??Chronic Kidney Disease Epidemiology Collaboration (CKD-EPI) equation refit??without adjustment for race. BUN/Creatinine Ratio 20.0 LAB CHEMISTRY METHOD 04/05/2024 10:30 AM [facility] Calcium 9.8 8.5 - 10.5 mg/dL LAB CHEMISTRY METHOD 04/05/2024 10:30 AM [facility] Blood Venous blood specimen / Unknown Venipuncture / Unknown 04/05/2024 7:43 AM EST 04/05/2024 9:35 AM EST us Anatoliy Solano MD LAB BLOOD ORDERABLES Final Result [facility] [address] [place] [address], [place] [phone] * (ABNORMAL) Complete blood count (04/05/2024 7:43 AM EST) [facility] Signature WBC 9.1 4.8 - 10.8 K/mcL LAB HEMETOLOGY METHOD 04/05/2024 10:26 AM EST [facility] RBC 4.10 3.80 - 4.80 M/mcL LAB HEMETOLOGY METHOD 04/05/2024 10:26 AM [facility] Hemoglobin 11.6 11.5 - 16.0 g/dL LAB HEMETOLOGY METHOD 04/05/2024 10:26 AM [facility] Hematocrit 36.0 35.0 - 47.0 % LAB HEMETOLOGY METHOD 04/05/2024 10:26 AM [facility] MCV 87.8 79.0 - 98.0 FL LAB HEMETOLOGY METHOD 04/05/2024 10:26 AM [facility] MCH 28.3 27.0 - 32.0 pcg LAB HEMETOLOGY METHOD 04/05/2024 10:26 AM [facility] MCHC 32.2 32.0 - 37.0 g/dL LAB HEMETOLOGY METHOD 04/05/2024 10:26 AM [facility] RDW 16.0(H) 11.0 - 15.0 % LAB HEMETOLOGY METHOD 04/05/2024 10:26 AM [facility] Platelets 111(L) 130 - 400 K/mcL LAB HEMETOLOGY METHOD 04/05/2024 10:26 AM [facility] MPV 12.5(H) 7.0 - 11.0 FL LAB HEMETOLOGY METHOD 04/05/2024 10:26 AM [facility] NRBC 0.4 <1.0 % LAB HEMETOLOGY METHOD 04/05/2024 10:26 AM EST [facility] NRBC Absolute 0.04 <0.10 K/mcL LAB HEMETOLOGY METHOD 04/05/2024 10:26 AM EST [facility] Blood Venous blood specimen / Unknown Venipuncture / Unknown 04/05/2024 7:43 AM EST 04/05/2024 9:35 AM EST us Anatoliy Solano MD LAB BLOOD ORDERABLES Final Result [facility] [address] [place] [address], documented in this encounter Visit Diagnoses Diagnosis Unspecified dementia, unspecified severity, without behavioral disturbance, psychotic disturbance, mood disturbance, and anxiety (CMS/HCC) documented in this encounter Care Teams Drapery Hand Relationship Specialty Start Date End Date Kathy Buck MD [address] [place] [phone] PCP - General Internal Medicine 02/24/22 documented as of this encounter
--- OUTSIDE RECORDS SUMMARY | 2024-07-01 16:51 | XMS_ITS | Encounter Summary ---
Author Organization [facility] Address [address] [place] [address] Care Team Providers Care Director Global Strategic Publisher Sales Name Role Phone Kathy Buck MD Primary Care Provider Encounter Details Date Type Department Care Team (Late st Contact Info) Description 03/05/2024 Lab Requisition [facility] - Main Lab [address] [place] [address] Yovanny Golden MD 38 [facility] 204 [facility] [phone] Essential (primary) hypertension Social History Tobacco [...] Procedure Name Priority Date/Time Associated Diagnosis Comments TRAVEL PHLEBOTOMY FEE Routine 03/08/2024 7:06 AM EST Essential (primary) hypertension COMPLETE BLOOD COUNT Routine 03/08/2024 7:06 AM EST Essential (primary) hypertension BASIC METABOLIC PANEL Routine 03/08/2024 7:06 AM EST Essential (primary) hypertension documented in this encounter Results * Travel phlebotomy fee (03/08/2024 7:06 AM EST) [facility] TRAVEL PHLEBOTOMY FEE Completed 03/09/2024 10:01 AM EST [facility] Blood Venous blood specimen / Unknown Venipuncture / Unknown 03/08/2024 7:06 AM EST 03/09/2024 9:59 AM EST us Yovanny Golden MD LAB BLOOD ORDERABLES Final Resul t [facility] [address] [place] [address], [place] [phone] * (ABNORMAL) Basic metabolic panel (03/08/2024 7:06 AM EST) Pathologist [facility] Sodium 138 133 - 145 mmol/L LAB CHEMISTRY METHOD 03/08/2024 2:47 PM [facility] LAB Potassium 4.5 3.5 - 5.5 mmol/L LAB CHEMISTRY METHOD 03/08/2024 2:47 PM [facility] Chloride 105 96 - 110 mmol/L LAB CHEMISTRY METHOD 03/08/2024 2:47 PM [facility] CO2 25 21 - 32 mmol/L LAB CHEMISTRY METHOD 03/08/2024 2:47 PM [facility] Anion Gap 8 3 - 11 LAB CHEMISTRY METHOD 03/08/2024 2:47 PM [facility] Glucose 131(H) 70 - 100 mg/dL LAB CHEMISTRY METHOD 03/08/2024 2:47 PM [facility] BUN 38(H) 5 - 25 mg/dL LAB CHEMISTRY METHOD 03/08/2024 2:47 PM [facility] Creatinine 1.61(H) 0.50 - 1.10 mg/dL LAB CHEMISTRY METHOD 03/08/2024 2:47 PM [facility] LAB eGFR 34(L) >=60 mL/min/1. 73m2 LAB CHEMISTRY METHOD 03/08/2024 2:47 PM [facility] LAB Comment:Calculation based on the??Chronic Kidney Disease Epidemiology Collaboration (CKD-EPI) equation refit??without adjustment for race. BUN/Creatinine Ratio 23.6 LAB CHEMISTRY METHOD 03/08/2024 2:47 PM [facility] LAB Calcium 9.9 8.5 - 10.5 mg/dL LAB CHEMISTRY METHOD 03/08/2024 2:47 PM [facility] LAB Blood Venous blood specimen / Unknown Venipuncture / Unknown 03/08/2024 7:06 AM EST 03/08/2024 2:47 PM EST us Yovanny Golden MD LAB BLOOD ORDERABLES Final Resul t [facility] [address] [place] [address], * (ABNORMAL) Complete blood count (03/08/2024 7:06 AM EST) WBC 7.6 4.8 - 10.8 K/mcL LAB HEMETOLOGY METHOD 03/08/2024 1:19 PM [facility] LAB RBC 4.50 3.80 - 4.80 M/mcL LAB HEMETOLOGY METHOD 03/08/2024 1:19 PM [facility] LAB Hemoglobin 12.4 11.5 - 16.0 g/dL LAB HEMETOLOGY METHOD 03/08/2024 1:19 PM [facility] LAB Hematocrit 40.2 35.0 - 47.0 % LAB HEMETOLOGY METHOD 03/08/2024 1:19 PM [facility] LAB MCV 89.9 79.0 - 98.0 FL LAB HEMETOLOGY METHOD 03/08/2024 1:19 PM [facility] LAB MCH 27.7 27.0 - 32.0 pcg LAB HEMETOLOGY METHOD 03/08/2024 1:19 PM [facility] LAB MCHC 30.8(L) 32.0 - 37.0 g/dL LAB HEMETOLOGY METHOD 03/08/2024 1:19 PM [facility] LAB RDW 14.8 11.0 - 15.0 % LAB HEMETOLOGY METHOD 03/08/2024 1:19 PM EST [facility] Platelets 269 130 - 400 K/mcL LAB HEMETOLOGY METHOD 03/08/2024 1:19 PM [facility] MPV 11.7(H) 7.0 - 11.0 FL LAB HEMETOLOGY METHOD 03/08/2024 1:19 PM EST [facility] NRBC 0.0 <1.0 % LAB HEMETOLOGY METHOD 03/08/2024 1:19 PM [facility] LAB NRBC Absolute 0.00 <0.10 K/mcL LAB HEMETOLOGY METHOD 03/08/2024 1:19 PM [facility] LAB Blood Venous blood specimen / Unknown Venipuncture / Unknown 03/08/2024 7:06 AM EST 03/08/2024 1:18 PM EST us Yovanny Golden MD LAB BLOOD ORDERABLES Final Resul t [facility] [address] [place] [address], documented in this encounter Visit Diagnoses Diagnosis Essential (primary) hypertension Unspecified essential hypertension documented in this encounter Care Teams Director Global Strategic Publisher Sales Relationship Specialty Start Date End Date Kathy Buck MD [address] [place] [phone] PCP - General Internal Medicine 02/24/22 documented as of this encounter
--- OUTSIDE RECORDS SUMMARY | 2024-07-01 16:51 | XMS_ITS | Encounter Summary ---
Author Organization [facility] Address [address] [place] [address] Care Team Providers Care Iuss Master Analyst Name Role Phone Kathy Buck MD Primary Care Provider [phone] Encounter Details Date Type Department Care Team (Late st Contact Info) Description 05/27/2024 Lab Requisition [facility] - Main Lab 299 [facility] [place] [address] Anatoliy Solano MD [address] [place] [address] Altered mental status, unspecified; Unspecified dementia, unspecified severity, without behavioral disturbance, [...] Associated Diagnosis Comments COMPLETE BLOOD COUNT Routine 05/27/2024 10:53 AM EST Altered mental status, unspecified Unspecified dementia, unspecified severity, without behavioral disturbance, psychotic disturbance, mood disturbance, and anxiety (CMS/HCC) BASIC METABOLIC PANEL Routine 05/27/2024 10:53 AM EST Altered mental status, unspecified Unspecified dementia, unspecified severity, without behavioral disturbance, psychotic disturbance, mood disturbance, and anxiety (CMS/HCC) documented in this encounter Results * (ABNORMAL) Basic metabolic panel (05/27/2024 10:53 AM EST) Sodium 137 133 - 145 mmol/L LAB CHEMISTRY METHOD 05/27/2024 12:15 PM [facility] Potassium 4.2 3.5 - 5.5 mmol/L LAB CHEMISTRY METHOD 05/27/2024 12:15 PM [facility] Chloride 107 96 - 110 mmol/L LAB CHEMISTRY METHOD 05/27/2024 12:15 PM [facility] CO2 25 21 - 32 mmol/L LAB CHEMISTRY METHOD 05/27/2024 12:15 PM [facility] Anion Gap 5 3 - 11 LAB CHEMISTRY METHOD 05/27/2024 12:15 PM [facility] Glucose 138(H) 70 - 100 mg/dL LAB CHEMISTRY METHOD 05/27/2024 12:15 PM [facility] BUN 39(H) 5 - 25 mg/dL LAB CHEMISTRY METHOD 05/27/2024 12:15 PM [facility] Creatinine 2.05(H) 0.50 - 1.10 mg/dL LAB CHEMISTRY METHOD 05/27/2024 12:15 PM [facility] LAB eGFR 25(L) >=60 mL/min/1. 73m2 LAB CHEMISTRY METHOD 05/27/2024 12:15 PM [facility] LAB Comment:Calculation based on the??Chronic Kidney Disease Epidemiology Collaboration (CKD-EPI) equation refit??without adjustment for race. BUN/Creatinine Ratio 19.0 LAB CHEMISTRY METHOD 05/27/2024 12:15 PM [facility] Calcium 9.7 8.5 - 10.5 mg/dL LAB CHEMISTRY METHOD 05/27/2024 12:15 PM [facility] Blood Venous blood specimen / Unknown Venipuncture / Unknown 05/27/2024 10:53 AM EST 05/27/2024 11:19 AM EST us Anatoliy Solano MD LAB BLOOD ORDERABLES Final Result [facility] [address] [place] [address], * (ABNORMAL) Complete blood count (05/27/2024 10:53 AM EST) [facility] WBC 9.3 4.8 - 10.8 K/mcL LAB HEMETOLOGY METHOD 05/27/2024 11:37 AM [facility] RBC 4.00 3.80 - 4.80 M/mcL LAB HEMETOLOGY METHOD 05/27/2024 11:37 AM [facility] Hemoglobin 11.1(L) 11.5 - 16.0 g/dL LAB HEMETOLOGY METHOD 05/27/2024 11:37 AM [facility] Hematocrit 35.9 35.0 - 47.0 % LAB HEMETOLOGY METHOD 05/27/2024 11:37 AM [facility] MCV 89.5 79.0 - 98.0 FL LAB HEMETOLOGY METHOD 05/27/2024 11:37 AM [facility] MCH 27.7 27.0 - 32.0 pcg LAB HEMETOLOGY METHOD 05/27/2024 11:37 AM [facility] MCHC 30.9(L) 32.0 - 37.0 g/dL LAB HEMETOLOGY METHOD 05/27/2024 11:37 AM [facility] RDW 14.5 11.0 - 15.0 % LAB HEMETOLOGY METHOD 05/27/2024 11:37 AM [facility] Platelets 265 130 - 400 K/mcL LAB HEMETOLOGY METHOD 05/27/2024 11:37 AM [facility] MPV 10.8 7.0 - 11.0 FL LAB HEMETOLOGY METHOD 05/27/2024 11:37 AM [facility] NRBC 0.0 <1.0 % LAB HEMETOLOGY METHOD 05/27/2024 11:[address] [facility] NRBC Absolute 0.00 <0.10 K/mcL LAB HEMETOLOGY METHOD 05/27/2024 11:[address] [facility] Blood Venous blood specimen / Unknown Venipuncture / Unknown 05/27/2024 10:53 AM EST 05/27/2024 11:19 AM EST us Anatoliy Solano MD LAB BLOOD ORDERABLES Final Result [facility] [address] [place] [address], documented in this encounter Visit Diagnoses Diagnosis Altered mental status, unspecified Unspecified dementia, unspecified severity, without behavioral disturbance, psychotic disturbance, mood disturbance, and anxiety (CMS/HCC) documented in this encounter Care Teams Iuss Master Analyst Relationship Specialty Start Date End Date Kathy Buck MD [address] [place] [phone] PCP - General Internal Medicine 02/24/22 documented as of this encounter
--- OUTSIDE RECORDS SUMMARY | 2024-07-01 16:51 | XMS_ITS | Encounter Summary ---
Author Organization [facility] Address [address] [place] [phone] Care Team Providers Care Toolroom Clerk Name Role Phone Kathy Buck MD Primary Care Provider Encounter Details Date Type Department Care Team (Late st Contact Info) Description 05/14/2024 Lab Requisition [facility] - Main Lab [address] [facility] [place] [address] Anatoliy Solano MD [address] [place] [address] Unspecified dementia, unspecified severity, without behavioral disturbance, [...] Associated Diagnosis Comments COMPLETE BLOOD COUNT Routine 05/14/2024 6:22 AM EST Unspecified dementia, unspecified severity, without behavioral disturbance, psychotic disturbance, mood disturbance, and anxiety (CMS/HCC) COMPREHENSIVE METABOLIC PANEL Routine 05/14/2024 6:22 AM EST Unspecified dementia, unspecified severity, without behavioral disturbance, psychotic disturbance, mood disturbance, and anxiety (CMS/HCC) documented in this encounter Results * (ABNORMAL) Comprehensive metabolic panel (05/14/2024 6:22 AM EST) Sodium 134 133 - 145 mmol/L LAB CHEMISTRY METHOD 05/14/2024 10:56 AM [facility] Potassium 4.5 3.5 - 5.5 mmol/L LAB CHEMISTRY METHOD 05/14/2024 10:56 AM [facility] Chloride 104 96 - 110 mmol/L LAB CHEMISTRY METHOD 05/14/2024 10:56 AM [facility] CO2 25 21 - 32 mmol/L LAB CHEMISTRY METHOD 05/14/2024 10:56 AM [facility] Anion Gap 5 3 - 11 LAB CHEMISTRY METHOD 05/14/2024 10:56 AM [facility] Glucose 150(H) 70 - 100 mg/dL LAB CHEMISTRY METHOD 05/14/2024 10:56 AM [facility] BUN 42(H) 5 - 25 mg/dL LAB CHEMISTRY METHOD 05/14/2024 10:56 AM [facility] Creatinine 2.29(H) 0.50 - 1.10 mg/dL LAB CHEMISTRY METHOD 05/14/2024 10:56 AM [facility] eGFR 22(L) >=60 mL/min/1. 73m2 LAB CHEMISTRY METHOD 05/14/2024 10:56 AM [facility] Comment:Calculation based on the??Chronic Kidney Disease Epidemiology Collaboration (CKD-EPI) equation refit??without adjustment for race. BUN/Creatinine Ratio 18.3 LAB CHEMISTRY METHOD 05/14/2024 10:56 AM [facility] Calcium 9.1 8.5 - 10.5 mg/dL LAB CHEMISTRY METHOD 05/14/2024 10:56 AM [facility] AST (SGOT) 29 10 - 42 unit/L LAB CHEMISTRY METHOD 05/14/2024 10:56 AM [facility] ALT (SGPT) 21 10 - 60 unit/L LAB CHEMISTRY METHOD 05/14/2024 10:56 AM [facility] Alkaline Phosphatase 257(H) 42 - 121 unit/L LAB CHEMISTRY METHOD 05/14/2024 10:56 AM EST [facility] Total Protein 6.7 6.0 - 8.0 g/dL LAB CHEMISTRY METHOD 05/14/2024 10:56 AM [facility] Albumin 3.1(L) 3.2 - 5.0 g/dL LAB CHEMISTRY METHOD 05/14/2024 10:56 AM [facility] Total Bilirubin 0.3 0.0 - 1.4 mg/dL LAB CHEMISTRY METHOD 05/14/2024 10:56 AM [facility] Blood Venous blood specimen / Unknown Venipuncture / Unknown 05/14/2024 6:22 AM EST 05/14/2024 9:02 AM EST us Anatoliy Solano MD LAB BLOOD ORDERABLES Final Result [facility] [address] [place] [address], [place] [phone] * (ABNORMAL) Complete blood count (05/14/2024 6:22 AM EST) WBC 7.8 4.8 - 10.8 K/mcL LAB HEMETOLOGY METHOD 05/14/2024 9:45 AM [facility] RBC 3.50(L) 3.80 - 4.80 M/mcL LAB HEMETOLOGY METHOD 05/14/2024 9:45 AM [facility] Hemoglobin 10.1(L) 11.5 - 16.0 g/dL LAB HEMETOLOGY METHOD 05/14/2024 9:45 AM [facility] Hematocrit 32.4(L) 35.0 - 47.0 % LAB HEMETOLOGY METHOD 05/14/2024 9:45 AM [facility] MCV 91.8 79.0 - 98.0 FL LAB HEMETOLOGY METHOD 05/14/2024 9:45 AM EST [facility] MCH 28.6 27.0 - 32.0 pcg LAB HEMETOLOGY METHOD 05/14/2024 9:45 AM EST [facility] MCHC 31.2(L) 32.0 - 37.0 g/dL LAB HEMETOLOGY METHOD 05/14/2024 9:45 AM EST [facility] RDW 15.7(H) 11.0 - 15.0 % LAB HEMETOLOGY METHOD 05/14/2024 9:45 AM EST [facility] Platelets 225 130 - 400 K/mcL LAB HEMETOLOGY METHOD 05/14/2024 9:45 AM EST [facility] MPV 11.8(H) 7.0 - 11.0 FL LAB HEMETOLOGY METHOD 05/14/2024 9:45 AM EST [facility] NRBC 0.0 <1.0 % LAB HEMETOLOGY METHOD 05/14/2024 9:45 AM EST [facility] NRBC Absolute 0.00 <0.10 K/mcL LAB HEMETOLOGY METHOD 05/14/2024 9:45 AM [facility] Blood Venous blood specimen / Unknown Venipuncture / Unknown 05/14/2024 6:22 AM EST 05/14/2024 9:02 AM EST us Anatoliy Solano MD LAB BLOOD ORDERABLES Final Result [facility] [address] [place] [address], documented in this encounter Visit Diagnoses Diagnosis Unspecified dementia, unspecified severity, without behavioral disturbance, psychotic disturbance, mood disturbance, and anxiety (CMS/HCC) documented in this encounter Care Teams Toolroom Clerk Relationship Specialty Start Date End Date Kathy Buck MD [address] [place] [phone] PCP - General Internal Medicine 02/24/22 documented as of this encounter
--- OUTSIDE RECORDS SUMMARY | 2024-07-01 16:51 | XMS_ITS | Encounter Summary ---
Author Organization [facility] Address [address] [place] [phone] Care Team Providers Care Boot And Saddle Repair Person Name Role Phone Kathy Buck MD Primary Care Provider [phone] Encounter Details Date Type Department Care Team (Late st Contact Info) Description 04/29/2024 Lab Requisition [facility] - Main Lab [address] [facility] [address] [place] [address] Anatoliy Solano MD [address] [place] [address] Unspecified dementia, unspecified severity, without behavioral disturbance, [...] Associated Diagnosis Comments COMPLETE BLOOD COUNT Routine 05/02/2024 5:52 AM EST Unspecified dementia, unspecified severity, without behavioral disturbance, psychotic disturbance, mood disturbance, and anxiety (CMS/HCC) BASIC METABOLIC PANEL Routine 05/02/2024 5:52 AM EST Unspecified dementia, unspecified severity, without behavioral disturbance, psychotic disturbance, mood disturbance, and anxiety (CMS/HCC) documented in this encounter Results * (ABNORMAL) Basic metabolic panel (05/02/2024 5:52 AM EST) [facility] Sodium 139 133 - 145 mmol/L LAB CHEMISTRY METHOD 05/02/2024 10:31 AM [facility] Potassium 4.1 3.5 - 5.5 mmol/L LAB CHEMISTRY METHOD 05/02/2024 10:31 AM [facility] Chloride 108 96 - 110 mmol/L LAB CHEMISTRY METHOD 05/02/2024 10:31 AM [facility] CO2 25 21 - 32 mmol/L LAB CHEMISTRY METHOD 05/02/2024 10:31 AM [facility] Anion Gap 6 3 - 11 LAB CHEMISTRY METHOD 05/02/2024 10:31 AM [facility] Glucose 194(H) 70 - 100 mg/dL LAB CHEMISTRY METHOD 05/02/2024 10:31 AM [facility] BUN 48(H) 5 - 25 mg/dL LAB CHEMISTRY METHOD 05/02/2024 10:31 AM [facility] Creatinine 1.68(H) 0.50 - 1.10 mg/dL LAB CHEMISTRY METHOD 05/02/2024 10:31 AM [facility] eGFR 32(L) >=60 mL/min/1. 73m2 LAB CHEMISTRY METHOD 05/02/2024 10:31 AM [facility] Comment:Calculation based on the??Chronic Kidney Disease Epidemiology Collaboration (CKD-EPI) equation refit??without adjustment for race. BUN/Creatinine Ratio 28.6 LAB CHEMISTRY METHOD 05/02/2024 10:31 AM [facility] Calcium 9.6 8.5 - 10.5 mg/dL LAB CHEMISTRY METHOD 05/02/2024 10:31 AM [facility] Blood Venous blood specimen / Unknown Venipuncture / Unknown 05/02/2024 5:52 AM EST 05/02/2024 9:57 AM EST us Anatoliy Solano MD LAB BLOOD ORDERABLES Final Result [facility] [address] [place] [address], * (ABNORMAL) Complete blood count (05/02/2024 5:52 AM EST) [facility] Signature WBC 8.2 4.8 - 10.8 K/mcL LAB HEMETOLOGY METHOD 05/02/2024 10:13 AM EST [facility] RBC 3.60(L) 3.80 - 4.80 M/mcL LAB HEMETOLOGY METHOD 05/02/2024 10:13 AM [facility] Hemoglobin 10.1(L) 11.5 - 16.0 g/dL LAB HEMETOLOGY METHOD 05/02/2024 10:13 AM [facility] Hematocrit 32.8(L) 35.0 - 47.0 % LAB HEMETOLOGY METHOD 05/02/2024 10:13 AM [facility] MCV 92.4 79.0 - 98.0 FL LAB HEMETOLOGY METHOD 05/02/2024 10:13 AM [facility] MCH 28.5 27.0 - 32.0 pcg LAB HEMETOLOGY METHOD 05/02/2024 10:13 AM [facility] MCHC 30.8(L) 32.0 - 37.0 g/dL LAB HEMETOLOGY METHOD 05/02/2024 10:13 AM [facility] RDW 16.4(H) 11.0 - 15.0 % LAB HEMETOLOGY METHOD 05/02/2024 10:13 AM [facility] Platelets 254 130 - 400 K/mcL LAB HEMETOLOGY METHOD 05/02/2024 10:13 AM [facility] MPV 11.7(H) 7.0 - 11.0 FL LAB HEMETOLOGY METHOD 05/02/2024 10:13 AM [facility] NRBC 0.0 <1.0 % LAB HEMETOLOGY METHOD 05/02/2024 10:13 AM EST [facility] NRBC Absolute 0.00 <0.10 K/mcL LAB HEMETOLOGY METHOD 05/02/2024 10:13 AM EST [facility] Blood Venous blood specimen / Unknown Venipuncture / Unknown 05/02/2024 5:52 AM EST 05/02/2024 9:57 AM EST us Anatoliy Solano MD LAB BLOOD ORDERABLES Final Result [facility] [address] [place] [address], documented in this encounter Visit Diagnoses Diagnosis Unspecified dementia, unspecified severity, without behavioral disturbance, psychotic disturbance, mood disturbance, and anxiety (CMS/HCC) documented in this encounter Care Teams Boot And Saddle Repair Person Relationship Specialty Start Date End Date Kathy Buck MD [address] [place] [phone] PCP - General Internal Medicine 02/24/22 documented as of this encounter
--- OUTSIDE RECORDS SUMMARY | 2024-07-01 16:51 | XMS_ITS | Encounter Summary ---
Author Organization [facility] Address [address] [place] [phone] Care Team Providers Care Commercial Airline Pilot Name Role Phone Kathy Buck MD Primary Care Provider Encounter Details Date Type Department Care Team (Late st Contact Info) Description 06/03/2024 Lab Requisition [facility] - Main Lab [address] [facility] [place] [address] Anatoliy Solano MD [address] [place] [address] Unspecified dementia, unspecified severity, without behavioral disturbance, [...] (CMS/HCC) documented in this encounter Care Teams Commercial Airline Pilot Relationship Specialty Start Date End Date Kathy Buck MD [address] [phone] PCP - General Internal Medicine 02/24/22 documented as of this encounter
--- OUTSIDE RECORDS SUMMARY | 2024-07-01 16:51 | XMS_ITS | Encounter Summary ---
Author Organization [facility] Address [address] [place] [phone] Care Team Providers Care Booster Assembler Name Role Phone Kathy Buck MD Primary Care Provider Encounter Details Date Type Department Care Team (Late st Contact Info) Description 04/18/2024 Lab Requisition [facility] - Main Lab [address] [facility] [place] [address] Anatoliy Solano MD [address] [place] [address] Unspecified dementia, unspecified severity, without behavioral disturbance, [...] Associated Diagnosis Comments COMPLETE BLOOD COUNT Routine 04/19/2024 4:44 AM EST Unspecified dementia, unspecified severity, without behavioral disturbance, psychotic disturbance, mood disturbance, and anxiety (CMS/HCC) BASIC METABOLIC PANEL Routine 04/19/2024 4:44 AM EST Unspecified dementia, unspecified severity, without behavioral disturbance, psychotic disturbance, mood disturbance, and anxiety (CMS/HCC) documented in this encounter Results * (ABNORMAL) Basic metabolic panel (04/19/2024 4:44 AM EST) Sodium 142 133 - 145 mmol/L LAB CHEMISTRY METHOD 04/19/2024 8:57 AM [facility] Potassium 4.6 3.5 - 5.5 mmol/L LAB CHEMISTRY METHOD 04/19/2024 8:57 AM [facility] Chloride 111(H) 96 - 110 mmol/L LAB CHEMISTRY METHOD 04/19/2024 8:57 AM [facility] CO2 24 21 - 32 mmol/L LAB CHEMISTRY METHOD 04/19/2024 8:57 AM [facility] Anion Gap 7 3 - 11 LAB CHEMISTRY METHOD 04/19/2024 8:57 AM [facility] Glucose 135(H) 70 - 100 mg/dL LAB CHEMISTRY METHOD 04/19/2024 8:57 AM [facility] BUN 57(H) 5 - 25 mg/dL LAB CHEMISTRY METHOD 04/19/2024 8:57 AM [facility] Creatinine 1.83(H) 0.50 - 1.10 mg/dL LAB CHEMISTRY METHOD 04/19/2024 8:57 AM [facility] eGFR 29(L) >=60 mL/min/1. 73m2 LAB CHEMISTRY METHOD 04/19/2024 8:57 AM [facility] Comment:Calculation based on the??Chronic Kidney Disease Epidemiology Collaboration (CKD-EPI) equation refit??without adjustment for race. BUN/Creatinine Ratio 31.1 LAB CHEMISTRY METHOD 04/19/2024 8:57 AM [facility] Calcium 9.3 8.5 - 10.5 mg/dL LAB CHEMISTRY METHOD 04/19/2024 8:57 AM [facility] Blood Venous blood specimen / Unknown Venipuncture / Unknown 04/19/2024 4:44 AM EST 04/19/2024 8:26 AM EST us Anatoliy Solano MD LAB BLOOD ORDERABLES Final Result [facility] [address] [place] [address], * (ABNORMAL) Complete blood count (04/19/2024 4:44 AM EST) [facility] WBC 8.3 4.8 - 10.8 K/mcL LAB HEMETOLOGY METHOD 04/19/2024 9:39 AM EST [facility] RBC 3.40(L) 3.80 - 4.80 M/[facility] LAB HEMETOLOGY METHOD 04/19/2024 9:39 AM [facility] Hemoglobin 9.6(L) 11.5 - 16.0 g/dL LAB HEMETOLOGY METHOD 04/19/2024 9:39 AM [facility] Hematocrit 31.3(L) 35.0 - 47.0 % LAB HEMETOLOGY METHOD 04/19/2024 9:39 AM [facility] MCV 92.3 79.0 - 98.0 FL LAB HEMETOLOGY METHOD 04/19/2024 9:39 AM [facility] MCH 28.3 27.0 - 32.0 pcg LAB HEMETOLOGY METHOD 04/19/2024 9:39 AM [facility] MCHC 30.7(L) 32.0 - 37.0 g/dL LAB HEMETOLOGY METHOD 04/19/2024 9:39 AM [facility] RDW 16.1(H) 11.0 - 15.0 % LAB HEMETOLOGY METHOD 04/19/2024 9:39 AM [facility] Platelets 274 130 - 400 K/mcL LAB HEMETOLOGY METHOD 04/19/2024 9:39 AM [facility] MPV 11.2(H) 7.0 - 11.0 FL LAB HEMETOLOGY METHOD 04/19/2024 9:39 AM [facility] NRBC 0.0 <1.0 % LAB HEMETOLOGY METHOD 04/19/2024 9:39 AM EST [facility] NRBC Absolute 0.00 <0.10 K/mcL LAB HEMETOLOGY METHOD 04/19/2024 9:39 AM EST [facility] Blood Venous blood specimen / Unknown Venipuncture / Unknown 04/19/2024 4:44 AM EST 04/19/2024 8:26 AM EST us Anatoliy Solano MD LAB BLOOD ORDERABLES Final Result [facility] [address] [place] [address], documented in this encounter Visit Diagnoses Diagnosis Unspecified dementia, unspecified severity, without behavioral disturbance, psychotic disturbance, mood disturbance, and anxiety (CMS/HCC) documented in this encounter Care Teams Booster Assembler Relationship Specialty Start Date End Date Kathy Buck MD [address] [place] [phone] PCP - General Internal Medicine 02/24/22 documented as of this encounter
--- OUTSIDE RECORDS SUMMARY | 2024-07-01 16:51 | XMS_ITS | Encounter Summary ---
Author Organization [facility] Address [address] [place] [phone] Care Team Providers Care Boiler Shop Supervisor Name Role Phone Kathy Buck MD Primary Care Provider Encounter Details Date Type Department Care Team (Late st Contact Info) Description 06/12/2024 Lab Requisition [facility] - Main Lab [address] [facility] [place] [address] Anatoliy Solano MD [address] [place] [address] Unspecified dementia, unspecified severity, without behavioral disturbance, [...] (CMS/HCC) documented in this encounter Care Teams Boiler Shop Supervisor Relationship Specialty Start Date End Date Kathy Buck MD [address] [phone] PCP - General Internal Medicine 02/24/22 documented as of this encounter
--- OUTSIDE RECORDS SUMMARY | 2024-07-01 16:51 | XMS_ITS | Encounter Summary ---
Author Organization [facility] Address [address] [place] [phone] Care Team Providers Care Agricultural Research Engineer Name Role Phone Kathy Buck MD Primary Care Provider [phone] Encounter Details Date Type Department Care Team (Late st Contact Info) Description 05/18/[address] [facility] - Main Lab [address] [facility] [place] [address] Anatoliy Solano MD [address] [place] [address] Unspecified dementia, unspecified severity, without behavioral disturbance, [...] Associated Diagnosis Comments COMPLETE BLOOD COUNT Routine 05/19/2024 8:12 AM EST Unspecified dementia, unspecified severity, without behavioral disturbance, psychotic disturbance, mood disturbance, and anxiety (CMS/HCC) BASIC METABOLIC PANEL Routine 05/19/2024 8:12 AM EST Unspecified dementia, unspecified severity, without behavioral disturbance, psychotic disturbance, mood disturbance, and anxiety (CMS/HCC) documented in this encounter Results * (ABNORMAL) Basic metabolic panel (05/19/2024 8:12 AM EST) Sodium 138 133 - 145 mmol/L LAB CHEMISTRY METHOD 05/19/2024 10:34 AM [facility] Potassium 4.8 3.5 - 5.5 mmol/L LAB CHEMISTRY METHOD 05/19/2024 10:34 AM [facility] Chloride 108 96 - 110 mmol/L LAB CHEMISTRY METHOD 05/19/2024 10:34 AM [facility] CO2 25 21 - 32 mmol/L LAB CHEMISTRY METHOD 05/19/2024 10:34 AM [facility] Anion Gap 5 3 - 11 LAB CHEMISTRY METHOD 05/19/2024 10:34 AM [facility] Glucose 253(H) 70 - 100 mg/dL LAB CHEMISTRY METHOD 05/19/2024 10:34 AM [facility] BUN 41(H) 5 - 25 mg/dL LAB CHEMISTRY METHOD 05/19/2024 10:34 AM [facility] Creatinine 2.10(H) 0.50 - 1.10 mg/dL LAB CHEMISTRY METHOD 05/19/2024 10:34 AM [facility] eGFR 24(L) >=60 mL/min/1. 73m2 LAB CHEMISTRY METHOD 05/19/2024 10:34 AM [facility] Comment:Calculation based on the??Chronic Kidney Disease Epidemiology Collaboration (CKD-EPI) equation refit??without adjustment for race. BUN/Creatinine Ratio 19.5 LAB CHEMISTRY METHOD 05/19/2024 10:34 AM [facility] Calcium 9.3 8.5 - 10.5 mg/dL LAB CHEMISTRY METHOD 05/19/2024 10:34 AM [facility] Blood Venous blood specimen / Unknown Venipuncture / Unknown 05/19/2024 8:12 AM EST 05/19/2024 8:51 AM EST us Anatoliy Solano MD LAB BLOOD ORDERABLES Final Result [facility] [address] [place] [address], * (ABNORMAL) Complete blood count (05/19/2024 8:12 AM EST) [facility] Signature WBC 7.4 4.8 - 10.8 K/mcL LAB HEMETOLOGY METHOD 05/19/2024 10:26 AM EST [facility] RBC 3.80 3.80 - 4.80 M/mcL LAB HEMETOLOGY METHOD 05/19/2024 10:26 AM [facility] Hemoglobin 10.6(L) 11.5 - 16.0 g/dL LAB HEMETOLOGY METHOD 05/19/2024 10:26 AM [facility] Hematocrit 34.8(L) 35.0 - 47.0 % LAB HEMETOLOGY METHOD 05/19/2024 10:26 AM [facility] MCV 91.8 79.0 - 98.0 FL LAB HEMETOLOGY METHOD 05/19/2024 10:26 AM [facility] MCH 28.0 27.0 - 32.0 pcg LAB HEMETOLOGY METHOD 05/19/2024 10:26 AM [facility] MCHC 30.5(L) 32.0 - 37.0 g/dL LAB HEMETOLOGY METHOD 05/19/2024 10:26 AM [facility] RDW 15.0 11.0 - 15.0 % LAB HEMETOLOGY METHOD 05/19/2024 10:26 AM [facility] Platelets 281 130 - 400 K/mcL LAB HEMETOLOGY METHOD 05/19/2024 10:26 AM [facility] MPV 11.1(H) 7.0 - 11.0 FL LAB HEMETOLOGY METHOD 05/19/2024 10:26 AM [facility] NRBC 0.0 <1.0 % LAB HEMETOLOGY METHOD 05/19/2024 10:26 AM EST [facility] NRBC Absolute 0.00 <0.10 K/[facility] LAB HEMETOLOGY METHOD 05/19/2024 10:26 AM EST [facility] Blood Venous blood specimen / Unknown Venipuncture / Unknown 05/19/2024 8:12 AM EST 05/19/2024 8:51 AM EST us Anatoliy Solano MD LAB BLOOD ORDERABLES Final Result [facility] [address] [place] [address], documented in this encounter Visit Diagnoses Diagnosis Unspecified dementia, unspecified severity, without behavioral disturbance, psychotic disturbance, mood disturbance, and anxiety (CMS/HCC) documented in this encounter Care Teams Agricultural Research Engineer Relationship Specialty Start Date End Date Kathy Buck MD [address] [place] [phone] PCP - General Internal Medicine 02/24/22 documented as of this encounter
--- OUTSIDE RECORDS SUMMARY | 2024-07-01 16:51 | XMS_ITS | Clinical Summary ---
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 Role Phone Kathy Buck MD Primary Care Provider [phone] Encounters Date Type Department Care Team Description 06/12/2024 Lab Requisition [facility] Lab [address] [place] [phone] Anatoliy Solano MD Unspecified dementia, unspecified severity, without behavioral disturbance, psychotic disturbance, mood disturbance, and anxiety ([facility]) 06/06/2024 Lab Requisition [facility] Lab [address] [place] [phone] Anatoliy Solano MD Unspecified dementia, unspecified severity, without behavioral disturbance, psychotic disturbance, mood disturbance, and anxiety ([facility]) 06/03/2024 Lab Requisition [facility] Lab [address] [place] [phone] Anatoliy Solano MD Unspecified dementia, unspecified severity, without behavioral disturbance, psychotic disturbance, mood disturbance, and anxiety ([facility]) 05/31/2024 Lab Requisition [facility] Lab [address] [place] [phone] Anatoliy Solano MD Unspecified dementia, unspecified severity, without behavioral disturbance, psychotic disturbance, mood disturbance, and anxiety ([facility]) 05/27/2024 Lab Requisition [facility] Lab [address] [place] [phone] Anatoliy Solano MD Altered mental status, unspecified; Unspecified dementia, unspecified severity, without behavioral disturbance, psychotic disturbance, mood disturbance, and anxiety ([facility]) 05/25/2024 Lab Requisition [facility] Lab [address] [place] [address] Anatoliy Solano MD Unspecified dementia, unspecified severity, without behavioral disturbance, psychotic disturbance, mood disturbance, and anxiety ([facility]) 05/18/2024 Lab Requisition [facility] Lab [address] [place] [phone] Anatoliy Solano MD Unspecified dementia, unspecified severity, without behavioral disturbance, psychotic disturbance, mood disturbance, and anxiety ([facility]) 05/14/2024 Lab Requisition [facility] [address] [place] [phone] Anatoliy Solano MD Unspecified dementia, unspecified severity, without behavioral disturbance, psychotic disturbance, mood disturbance, and anxiety ([facility]) 05/06/2024 Lab Requisition [facility] Lab [address] [place] [address] Anatoliy Solano MD Unspecified dementia, unspecified severity, without behavioral disturbance, psychotic disturbance, mood disturbance, and anxiety ([facility]) 04/29/2024 Lab Requisition [facility] Lab [address] [place] [phone] Anatoliy Solano MD Unspecified dementia, unspecified severity, without behavioral disturbance, psychotic disturbance, mood disturbance, and anxiety ([facility]) 04/29/2024 Lab Requisition [facility] [address] [place] [phone] Anatoliy Solano MD Type 2 diabetes mellitus with diabetic chronic kidney disease ([facility]) 04/23/2024 Lab Requisition [facility] [address] [place] [phone] Anatoliy Solano MD Type 2 diabetes mellitus without complications ([facility]); Unspecified dementia, unspecified severity, without behavioral disturbance, psychotic disturbance, mood disturbance, and anxiety ([facility]) 04/18/2024 Lab Requisition [facility] [address] [place] [phone] Anatoliy Solano MD Unspecified dementia, unspecified severity, without behavioral disturbance, psychotic disturbance, mood disturbance, and anxiety ([facility]) 04/15/2024 Lab Requisition [facility] [address] [place] [phone] Anatoliy Solano MD Unspecified dementia, unspecified severity, without behavioral disturbance, psychotic disturbance, mood disturbance, and anxiety ([facility]) 04/09/2024 Lab Requisition [facility] Lab [address] [place] [phone] Anatoliy Solano MD Unspecified dementia, unspecified severity, without behavioral disturbance, psychotic disturbance, mood disturbance, and anxiety ([facility]) 04/05/2024 Lab Requisition [facility] Lab [address] [place] [phone] Anatoliy Solano MD Unspecified dementia, unspecified severity, without behavioral disturbance, psychotic disturbance, mood disturbance, and anxiety ([facility]) from Last 3 Months Social History Tobacco Use Types Packs/Day Years Used Date Smoking Tobacco: Never Smokeless Tobacco: Never Comments Unknown Sex and Gender Information Value Date Recorded Sex Assigned at Not on file Legal Sex Female 4:34 AM EST Gender Identity Not on file Sexual Orientation Not on file Obstetrics History Plan of Treatment Health Maintenance Due Date Last Done Comments Diabetes: Annual Foot Exam 1960 Diabetes: Annual Retina Eye Exam 1960 Hepatitis A Vaccines (1 of 2 - Risk 2-dose series) 1969 Hepatitis B Vaccines (1 of 3 - Risk 3-dose series) 2010 RSV Immunization Patients 60+ Years Old (1 - Risk 60-74 years 1-dose series) 2010 Breast Cancer Screening 01/02/2020 01/01/2018 Zoster Vaccines (2 of 2) 03/12/2022 01/15/2022 Colorectal Cancer Screening: Colonoscopy 04/06/2022 Falls Risk Assessment 04/06/2022 Hepatitis C Screening 04/06/2022 Medicare Annual Wellness Visit 04/06/2022 Osteoporosis Screening (Bone Density Screening) 04/06/2022 Social Influencers of Health Screening 04/06/2022 COVID-19 Vaccine ( season) 2024 07/09/2021, 10/15/2020 Influenza Vaccine (#1) 2024 Diabetes: Annual Urine Albumin-Creatinine Ratio (uACR) 03/08/2024 Depression Screening 09/24/2024 09/25/2023 Diabetes: Blood Sugar Control Test (HGBA1C) 10/28/2024 04/29/2024, 09/25/2023, 04/16/2021 Diabetes: Annual GFR (Glomerular Filtration Rate) 06/07/2025 06/07/2024, 05/31/2024, 05/27/2024, Additional history exists Hypertension/CHF/CAD Annual BMP Blood Test 06/07/2025 06/07/2024, 05/31/2024, 05/27/2024, Additional history exists Cholesterol Screening (Lipid Panel) 01/15/2027 01/15/2022 DTaP,Tdap,and Td Vaccines (2 - Td or Tdap) 03/21/2028 03/21/2018 Pneumococcal Vaccine: 50+ Years Completed 01/15/2022 HIB Vaccines Aged Out No longer eligi ble based on patient's age to complete this topic HPV Vaccines Aged Out No longer eligi ble based on patient's age to complete this topic IPV Vaccines Aged Out No longer eligi ble based on patient's age to complete this topic MMR Vaccines Aged Out No longer eligi ble based on patient's age to complete this topic Meningococcal ACWY Vaccine Aged Out N o longer eligible based on patient's age to complete this topic Meningococcal B Vacine Aged Out No lo nger eligible based on patient's age to complete this topic RSV Immunization Patients Under 20 months Aged Out No longer eligible based on patient's age to complete this topic Varicella Vaccines Aged Out No longer eligible based on patient's age to complete this topic Procedures Procedure Name Priority Date/Time Associated Diagnosis Comments BASIC METABOLIC PANEL Routine 06/07/2024 7:25 AM EST Unspecified dementia, unspecified severity, without behavioral disturbance, psychotic disturbance, mood disturbance, and anxiety (CMS/HCC) COMPLETE BLOOD COUNT Routine 06/07/2024 7:25 AM EST Unspecified dementia, unspecified severity, without behavioral disturbance, psychotic disturbance, mood disturbance, and anxiety (CMS/HCC) BASIC METABOLIC PANEL Routine 05/31/2024 5:00 AM EST Unspecified dementia, unspecified severity, without behavioral disturbance, psychotic disturbance, mood disturbance, and anxiety (CMS/HCC) COMPLETE BLOOD COUNT Routine 05/31/2024 5:00 AM EST Unspecified dementia, unspecified severity, without behavioral disturbance, psychotic disturbance, mood disturbance, and anxiety (CMS/HCC) BASIC METABOLIC PANEL Routine 05/27/2024 10:53 AM EST Altered mental status, unspecified Unspecified dementia, unspecified severity, without behavioral disturbance, psychotic disturbance, mood disturbance, and anxiety (CMS/HCC) COMPLETE BLOOD COUNT Routine 05/27/2024 10:53 AM EST Altered mental status, unspecified Unspecified dementia, unspecified severity, without behavioral disturbance, psychotic disturbance, mood disturbance, and anxiety (CMS/HCC) BASIC METABOLIC PANEL Routine 05/19/2024 8:12 AM EST Unspecified dementia, unspecified severity, without behavioral disturbance, psychotic disturbance, mood disturbance, and anxiety (CMS/HCC) COMPLETE BLOOD COUNT Routine 05/19/2024 8:12 AM EST Unspecified dementia, unspecified severity, without behavioral disturbance, psychotic disturbance, mood disturbance, and anxiety (CMS/HCC) COMPREHENSIVE METABOLIC PANEL Routine 05/14/2024 6:22 AM EST Unspecified dementia, unspecified severity, without behavioral disturbance, psychotic disturbance, mood disturbance, and anxiety (CMS/HCC) COMPLETE BLOOD COUNT Routine 05/14/2024 6:22 AM EST Unspecified dementia, unspecified severity, without behavioral disturbance, psychotic disturbance, mood disturbance, and anxiety (CMS/HCC) BASIC METABOLIC PANEL Routine 05/02/2024 5:52 AM EST Unspecified dementia, unspecified severity, without behavioral disturbance, psychotic disturbance, mood disturbance, and anxiety (CMS/HCC) COMPLETE BLOOD COUNT Routine 05/02/2024 5:52 AM EST Unspecified dementia, unspecified severity, without behavioral disturbance, psychotic disturbance, mood disturbance, and anxiety (CMS/HCC) HEMOGLOBIN A1C Routine 04/29/2024 7:24 AM EST Type 2 diabetes mellitus with diabetic chronic kidney disease (CMS/HCC) BASIC METABOLIC PANEL Routine 04/25/2024 5:48 AM EST Type 2 diabetes mellitus without complications (CMS/HCC) Unspecified dementia, unspecified severity, without behavioral disturbance, psychotic disturbance, mood disturbance, and anxiety (CMS/HCC) COMPLETE BLOOD COUNT Routine 04/25/2024 5:48 AM EST Type 2 diabetes mellitus without complications (CMS/HCC) Unspecified dementia, unspecified severity, without behavioral disturbance, psychotic disturbance, mood disturbance, and anxiety (CMS/HCC) BASIC METABOLIC PANEL Routine 04/19/2024 4:44 AM EST Unspecified dementia, unspecified severity, without behavioral disturbance, psychotic disturbance, mood disturbance, and anxiety (CMS/HCC) COMPLETE BLOOD COUNT Routine 04/19/2024 4:44 AM EST Unspecified dementia, unspecified severity, without behavioral disturbance, psychotic disturbance, mood disturbance, and anxiety (CMS/HCC) BASIC METABOLIC PANEL Routine 04/18/2024 5:41 AM EST Unspecified dementia, unspecified severity, without behavioral disturbance, psychotic disturbance, mood disturbance, and anxiety (CMS/HCC) BASIC METABOLIC PANEL Routine 04/05/2024 7:43 AM EST Unspecified dementia, unspecified severity, without behavioral disturbance, psychotic disturbance, mood disturbance, and anxiety (CMS/HCC) COMPLETE BLOOD COUNT Routine 04/05/2024 7:43 AM EST Unspecified dementia, unspecified severity, without behavioral disturbance, psychotic disturbance, mood disturbance, and anxiety (CMS/HCC) from Last 3 Months Results * (ABNORMAL) Complete blood count (06/07/2024 7:25 AM EST) Only the most recent of9 resultswithin the time period is included. WBC 6.9 4.8 - 10.8 K/mcL LAB HEMETOLOGY METHOD 06/07/2024 9:35 AM [facility] RBC 3.40(L) 3.80 - 4.80 M/mcL LAB HEMETOLOGY METHOD 06/07/2024 9:35 AM [facility] Hemoglobin 9.6(L) 11.5 - 16.0 g/dL LAB HEMETOLOGY METHOD 06/07/2024 9:35 AM [facility] Hematocrit 30.5(L) 35.0 - 47.0 % LAB HEMETOLOGY METHOD 06/07/2024 9:35 AM [facility] MCV 90.8 79.0 - 98.0 FL LAB HEMETOLOGY METHOD 06/07/2024 9:35 AM [facility] MCH 28.6 27.0 - 32.0 pcg LAB HEMETOLOGY METHOD 06/07/2024 9:35 AM [facility] MCHC 31.5(L) 32.0 - 37.0 g/dL LAB HEMETOLOGY METHOD 06/07/2024 9:35 AM [facility] RDW 14.7 11.0 - 15.0 % LAB HEMETOLOGY METHOD 06/07/2024 9:35 AM [facility] Platelets 166 130 - 400 K/mcL LAB HEMETOLOGY METHOD 06/07/2024 9:35 AM EST [facility] MPV 11.9(H) 7.0 - 11.0 FL LAB HEMETOLOGY METHOD 06/07/2024 9:35 AM EST [facility] NRBC 0.0 <1.0 % LAB HEMETOLOGY METHOD 06/07/2024 9:35 AM [facility] NRBC Absolute 0.00 <0.10 K/mcL LAB HEMETOLOGY METHOD 06/07/2024 9:35 AM [facility] Blood Venous blood specimen / Unknown Venipuncture / Unknown 06/07/2024 7:25 AM EST 06/07/2024 9:24 AM EST Anatoliy Solano MD LAB BLOOD ORDERABLES Final Result [facility] [address] [place] [address], [place] [phone] * (ABNORMAL) Basic metabolic panel (06/07/2024 7:25 AM EST) Only the most recent of9 resultswithin the time period is included. Sodium 139 133 - 145 mmol/L LAB CHEMISTRY METHOD 06/07/2024 9:55 AM [facility] Potassium 4.3 3.5 - 5.5 mmol/L LAB CHEMISTRY METHOD 06/07/2024 9:55 AM [facility] Chloride 109 96 - 110 mmol/L LAB CHEMISTRY METHOD 06/07/2024 9:55 AM [facility] CO2 24 21 - 32 mmol/L LAB CHEMISTRY METHOD 06/07/2024 9:55 AM [facility] Anion Gap 6 3 - 11 LAB CHEMISTRY METHOD 06/07/2024 9:55 AM [facility] Glucose 137(H) 70 - 100 mg/dL LAB CHEMISTRY METHOD 06/07/2024 9:55 AM [facility] BUN 41(H) 5 - 25 mg/dL LAB CHEMISTRY METHOD 06/07/2024 9:55 AM [facility] Creatinine 1.73(H) 0.50 - 1.10 mg/dL LAB CHEMISTRY METHOD 06/07/2024 9:55 AM [facility] eGFR 31(L) >=60 mL/min/1. 73m2 LAB CHEMISTRY METHOD 06/07/2024 9:55 AM [facility] Comment:Calculation based on the??Chronic Kidney Disease Epidemiology Collaboration (CKD-EPI) equation refit??without adjustment for race. BUN/Creatinine Ratio 23.7 LAB CHEMISTRY METHOD 06/07/2024 9:55 AM [facility] Calcium 9.2 8.5 - 10.5 mg/dL LAB CHEMISTRY METHOD 06/07/2024 9:55 AM [facility] Blood Venous blood specimen / Unknown Venipuncture / Unknown 06/07/2024 7:25 AM EST 06/07/2024 9:24 AM EST us Anatoliy Solano MD LAB BLOOD ORDERABLES Final Result [facility] [address] [place] [address], * (ABNORMAL) Comprehensive metabolic panel (05/14/2024 6:22 AM EST) Sodium 134 133 - 145 mmol/L LAB CHEMISTRY METHOD 05/14/2024 10:56 AM [facility] Potassium 4.5 3.5 - 5.5 mmol/L LAB CHEMISTRY METHOD 05/14/2024 10:56 AM [facility] Chloride 104 96 - 110 mmol/L LAB CHEMISTRY METHOD 05/14/2024 10:56 AM [facility] CO2 25 21 - 32 mmol/L LAB CHEMISTRY METHOD 05/14/2024 10:56 AM [facility] Anion Gap 5 3 - 11 LAB CHEMISTRY METHOD 05/14/2024 10:56 AM [facility] Glucose 150(H) 70 - 100 mg/dL LAB CHEMISTRY METHOD 05/14/2024 10:56 AM [facility] BUN 42(H) 5 - 25 mg/dL LAB CHEMISTRY METHOD 05/14/2024 10:56 AM [facility] Creatinine 2.29(H) 0.50 - 1.10 mg/dL LAB CHEMISTRY METHOD 05/14/2024 10:56 AM [facility] eGFR 22(L) >=60 mL/min/1. 73m2 LAB CHEMISTRY METHOD 05/14/2024 10:56 AM [facility] Comment:Calculation based on the??Chronic Kidney Disease Epidemiology Collaboration (CKD-EPI) equation refit??without adjustment for race. BUN/Creatinine Ratio 18.3 LAB CHEMISTRY METHOD 05/14/2024 10:56 AM [facility] Calcium 9.1 8.5 - 10.5 mg/dL LAB CHEMISTRY METHOD 05/14/2024 10:56 AM [facility] AST (SGOT) 29 10 - 42 unit/L LAB CHEMISTRY METHOD 05/14/2024 10:56 AM [facility] ALT (SGPT) 21 10 - 60 unit/L LAB CHEMISTRY METHOD 05/14/2024 10:56 AM [facility] Alkaline Phosphatase 257(H) 42 - 121 unit/L LAB CHEMISTRY METHOD 05/14/2024 10:56 AM [facility] Total Protein 6.7 6.0 - 8.0 g/dL LAB CHEMISTRY METHOD 05/14/2024 10:56 AM [facility] Albumin 3.1(L) 3.2 - 5.0 g/dL LAB CHEMISTRY METHOD 05/14/2024 10:56 AM [facility] Total Bilirubin 0.3 0.0 - 1.4 mg/dL LAB CHEMISTRY METHOD 05/14/2024 10:56 AM EST [facility] Blood Venous blood specimen / Unknown Venipuncture / Unknown 05/14/2024 6:22 AM EST 05/14/2024 9:02 AM EST Anatoliy Solano MD LAB BLOOD ORDERABLES Final Result Performing Organization Address City/[facility]/ZIP Co de Phone Number [facility] [address] [place] [address], [place] [phone] * Hemoglobin A1c (04/29/2024 7:24 AM EST) Hemoglobin A1C 6.4 <6.5 % LAB CHEMISTRY METHOD 04/29/2024 12:34 PM EST [facility] Mean Bld Glu Estim. 137 mg/dL LAB CHEMISTRY METHOD 04/29/2024 12:34 PM EST [facility] Blood Venous blood specimen / Unknown Venipuncture / Unknown 04/29/2024 7:24 AM EST 04/29/2024 10:29 AM EST Anatoliy Solano MD LAB BLOOD ORDERABLES Final Result Performing Organization Address City/[facility]/ZIP Co de Phone Number [facility] [address] [place] [address], [place] [phone] from Last 3 Months Insurance [place]ICA[place] - [place] MEDICARE Advance Directives Documents on File Type Date Recorded Patient Document Image Technician Expl anation Health Care Decision (hx) 08/06/2020 AD RAMIREZ DIRECTIVE Health Care Decision (hx) 08/06/2020 AD RAMIREZ DIRECTIVE Health Care Decision (hx) 08/06/2020 AD RAMIREZ DIRECTIVE Health Care Decision (hx) 08/06/2020 AD RAMIREZ DIRECTIVE Health Care Decision (hx) 08/06/2020 AD RAMIREZ DIRECTIVE Health Care Decision (hx) 08/06/2020 AD RAMIREZ DIRECTIVE Health Care Decision (hx) 08/06/2020 AD RAMIREZ DIRECTIVE Health Care Decision (hx) 08/06/2020 AD RAMIREZ DIRECTIVE Health Care Decision (hx) 08/06/2020 AD RAMIREZ DIRECTIVE Health Care Decision (hx) 08/06/2020 AD RAMIREZ DIRECTIVE Health Care Decision (hx) 08/06/2020 AD RAMIREZ DIRECTIVE Health Care Decision (hx) 08/06/2020 AD RAMIREZ DIRECTIVE Health Care Decision (hx) 08/06/2020 AD RAMIREZ DIRECTIVE Health Care Decision (hx) 08/06/2020 AD RAMIREZ DIRECTIVE Health Care Decision (hx) 08/06/2020 AD RAMIREZ DIRECTIVE Health Care Decision (hx) 08/06/2020 AD RAMIREZ DIRECTIVE Health Care Decision (hx) 08/06/2020 AD RAMIREZ DIRECTIVE Health Care Decision (hx) 08/06/2020 AD RAMIREZ DIRECTIVE Health Care Decision (hx) 08/06/2020 AD RAMIREZ DIRECTIVE Health Care Decision (hx) 08/06/2020 AD RAMIREZ DIRECTIVE Health Care Decision (hx) 08/06/2020 AD RAMIREZ DIRECTIVE Health Care Decision (hx) 08/06/2020 AD RAMIREZ DIRECTIVE Health Care Decision (hx) 08/06/2020 AD RAMIREZ DIRECTIVE Health Care Decision (hx) 08/06/2020 AD RAMIREZ DIRECTIVE Health Care Decision (hx) 08/06/2020 AD RAMIREZ DIRECTIVE Health Care Decision (hx) 08/06/2020 AD RAMIREZ DIRECTIVE Health Care Decision (hx) 08/06/2020 AD RAMIREZ DIRECTIVE Health Care Decision (hx) 08/06/2020 AD RAMIREZ DIRECTIVE Health Care Decision (hx) 08/06/2020 AD RAMIREZ DIRECTIVE 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
== END 2024-07-01 14:41 | disposition home or self-care (01) ==
LOC: HO.HHCL 14:40
PROVIDERS: Visit Provider Registered Nurse
DX: E11.65 Type 2 diabetes mellitus with hyperglycemia (principal); Z79.4 Long term (current) use of insulin
CPT/HCPCS: 36415; 80048; 85025

== ENCOUNTER 2025-02-24 10:08 | Outpatient (AMB) | payer OTHER, SELFPAY ==
--- NOTE | 2025-02-24 10:14 | A.OFFVIS_ITS ---
Intake Visit Reasons: Follow up/mixed incontinence Intake Note: Patient is present for mixed incontinence follow up Urology Medication:NONE Antibiotic Allergy:NONE Blood Thinner:ASPIRIN Manager Loan Required: No Allergies No Known Allergies (No Known Allergies*) Allergy (Verified 02/24/25 10:19) HPI Comments Details: 02/24/25-- History of Present Illness The patient is a 74-year-old female presenting with the management of a urinary catheter following a recent urinary tract infection. She was hospitalized earlier this month for a urinary tract infection, during which a catheter was inserted and she was discharged with it. A visiting nurse attends to her daily, ensuring the catheter is functioning properly and assisting with medication management, including insulin administration. The plan includes arrangements for voiding trial. Plan 1. Urinary Tract Infection 2. Catheter Management - Daily visits by a nurse to ensure catheter functionality and manage medications. - Conduct a voiding trial on Thursday to assess urinary function. Hannah is a 73 year old female who presents from a long-term for reported prolapse. The patient is not able to pivot onto the exam table for pelvic exam. Bladder scan PVR 188 mL. Recommend diaper changes every 2 hours. See written consult note PFSH Medical History Anemia Uncontrolled type 2 diabetes mellitus with hypoglycemia Chronic constipation Iron deficiency anemia Autoimmune cholangitis CHF (congestive heart failure) Renal failure (ARF), acute on chronic Autoimmune hepatitis CVA (cerebral vascular accident) Normocytic anemia CKD (chronic kidney disease) Fecal occult blood test positive Anemia Pancreatic cyst GERD (gastroesophageal reflux disease) Pancreatitis Depression Hypertriglyceridemia Vitamin D deficiency Constipated Type 2 diabetes mellitus with hyperglycemia Type 2 diabetes mellitus with chronic kidney disease Essential hypertension Hyperlipidemia LDL goal <100 Obesity (BMI 30-39.9) Diabetes mellitus with hyperglycemia Surgical History History of esophagogastroduodenoscopy (EGD) Hx of heart bypass surgery History of appendectomy Hx of colonoscopy Hx of cholecystectomy Family History Father No problems noted. 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 Do you presently have visiting nurse or other home services: No Alcohol intake: never Patient Tobacco Use Status: Never used Tobacco Advance Directives Date on File: 02/06/21 service: No Current occupational status: disabled Review of Systems Const All systems reviewed & are unremarkable except as noted in HPI and below Reports no additional complaints Eyes Reports no additional complaints ENT Reports no additional complaints Card Denies dyspnea Resp Denies cough and Denies dyspnea GI Reports no additional complaints Reports no additional complaints Musc Reports no additional complaints Skin/Breast Denies rash and Denies unusual bruising Neuro Reports no additional complaints Psych Reports no additional complaints Endo Reports no additional complaints Filiberto/Lymph Reports no additional complaints Aller/Immun Reports no additional complaints Assessment & Plan Assessment & Plan (1) Obesity (BMI 30-39.9): Code(s): E66.9 - Obesity, unspecified Category: Medical (2) Urinary incontinence: Code(s): R32 - Unspecified urinary incontinence Category: Medical (3) UTI (urinary tract infection): Code(s): N39.0 - Urinary tract infection, site not specified Category: Medical Plan Plan 1. Erectile Dysfunction - Continue Cialis as it is effective; refills will be provided. 2. Benign Prostatic Hyperplasia - Prostate examination showed normal findings; continue monitoring symptoms. 3. Microscopic Hematuria - Imaging showed normal kidneys and prostate; 4. Hematospermia. Occasional. patient reassure- possible inflammation in the prostate. The patient denies pain with ejaculation. Patient Instructions: The patient had an opportunity to ask questions regarding treatment plan. The patient expressed understanding and agreement with the above treatment plan. The patient is aware they should contact our office by phone for worsening of their current condition or the appearance of new symptoms. Compliance is encouraged with any medications and followup testing that is ordered. It is a privilege to be allowed the opportunity to participate in the urologic care of your patient. If you have any questions or concerns regarding treatment for the above conditions please do not hesitate to contact me. The office telephone contact is [phone]. This note is constructed in part using voice recognition software. While every effort has been made to ensure accuracy plate sensitizer errors may have been included. Yours sincerely, Nathan Szymanski MD Scribe Plan - Not visible on output: Patient was informed and verbally consented to the use of an ambient scribe for clinic note documentation during this visit. Coding Level of Care Code Est Pt Level 3 (92018) Diagnoses Obesity (BMI 30-39.9) E66.9 Urinary incontinence R32 UTI (urinary tract infection) N39.0
--- OUTSIDE RECORDS SUMMARY | 2025-02-24 11:28 | XMS_ITS ---
Author Organization [facility] Care Team Providers Care Cloth Seconds Sorter Name Role Phone Damon Eugene Unavailable Unavailable Nasra Xiong Unavailable Unavailable Allergies and adverse reactions No Known Allergies Care Team Name Role Address Phone Organization Dates Damon Eugene PCP [address] [address], [place], [address], [place] (Office): [phone] (Fax): [phone] [facility] 10/09/2022 - 10/24/2022 Nasra Xiong [address] [facility] [address], [place], [place], [address], [place] (Office): [facility] 10/09/2022 - 10/24/2022 Mental Status Section Date Assessment Total Score Description 10/24/2022 CAM 0 No delirium ind icated 10/16/2022 BIMS 08 moderate cognit carmen impairment CAM 0 No delirium ind icated PHQ-9 03 minimal depress ion Insurance Providers Problems Problem # Description Date of onset Resolved Date Code CodeSystem Concern Status 1 ACUTE COUGH 10/10/[address] active 2 CHRONIC OBSTRUCTIVE PYELONEPHRITIS 10/10/[address] active 3 HYPERLIPIDEMIA, UNSPECIFIED 10/10/[address] active 4 PARAINFLUENZA VIRUS PNEUMONIA 10/10/[address] active 5 SHORTNESS OF BREATH 10/10/[address] active 6 TYPE 2 DIABETES MELLITUS WITH DIABETIC NEUROPATHY, UNSPECIFIED 10/10/[address] active 7 UNSPECIFIED ASTHMA, UNCOMPLICATED 10/10/[address] active 8 UNSPECIFIED DEMENTIA, UNSPECIFIED SEVERITY, WITHOUT BEHAVIORAL DISTURBANCE, PSYCHOTIC DISTURBANCE, MOOD DISTURBANCE, AND ANXIETY 10/10/[address] active 9 TOXIC ENCEPHALOPATHY 10/27/19 21 10/09/[address] completed 10 TYPE 2 DIABETES MELLITUS WITH DIABETIC CHRONIC KIDNEY DISEASE 10/27/[address] active 11 UNSPECIFIED CIRRHOSIS OF LIVER 10/27/[address] active 12 ATHEROSCLEROTIC HEART DISEASE OF [place] CORONARY ARTERY WITHOUT ANGINA PECTORIS 10/26/[address] active 13 ESSENTIAL (PRIMARY) HYPERTENSION 10/26/[address] active 14 MUSCLE WEAKNESS (GENERALIZED) 10/26/[address] active 15 OTHER SPECIFIED ARTHRITIS, UNSPECIFIED SITE 10/26/[address] active 16 UNSPECIFIED ABNORMALITIES OF GAIT AND MOBILITY 10/26/[address] active 17 URINARY TRACT INFECTION, SITE NOT SPECIFIED 10/26/[address] active Reason for Referral No Reasons for Referral Entered Social History Social History Observation Description Start Date End Date Code Code System Current Smoking Status Tobacco smoking consumption unknown 771758812 SNOMED CT Sex Assigned At Female 1950 66888-7 [facility] Gender Identity Sexual Orientation Vital Signs Code Code System Vitals Name Values and Units Timing Information 2339-0 LOINC Blood Sugar Tcpcj=019.0 Units=mg/dL 10/24/2022 48695-8 LOINC Pain Level Value=0.0 10/24/2022 8302-2 LOINC Height Value=62.0 Units=Inches 10/16/2022 9279-1 LOINC Respiratory Rate Value=18.0 Units=/m in 10/15/2022 8462-4 LOINC Blood Pressure-Diastolic Value=84 Un its=mmHg 10/15/2022 8480-6 LOINC Blood Pressure-Systolic Rtbsq=068 Un its=mmHg 10/15/2022 8310-5 [facility] Body Temperature Value=97.6 Units= F 10/15/2022 8867-4 [facility] Heart rate Value=72.0 Units=/min 68891-2 [facility] O2 % BldC Oximetry Value=98.0 Units= % 10/15/2022 34386-1 [facility] Weight Iigzx=158.2 Units=Lbs
--- OUTSIDE RECORDS SUMMARY | 2025-02-24 11:28 | XMS_ITS | Encounter Summary ---
Author Organization [email or web address] Address [address] [facility] 7t [place] [address] Care Team Providers Care Shop Hand Name Role Phone Lo Donato MD Primary Care Provider [phone] Reason for Visit * Reason Comments Med Change Request Encounter Details Date Type Department Care Team (Late st Contact Info) Description 10/31/2023 Refill [facility] [address] [place], [place] [phone] Lo Donato MD [address] [place], [place] [phone] Uncontrolled type 2 diabetes mellitus with hyperglycemia ([facility]) Social History Tobacco Use Types Packs/Day [...] Care Team (Late st Contact Info) Description 03/02/2025 1:45 PM EDT Office Visit [facility] [address] [place] [address] Jennifer Campa MD [address] [place] [address] documented as of this encounter Visit Diagnoses Diagnosis Uncontrolled type 2 diabetes mellitus with hyperglycemia (HCC) documented in this encounter Additional Health Concerns Assessment Noted Time PHQ-9 Depression Total Score: 0 09/25/19 11:56 AM EDT documented as of this encounter Care Teams Shop Hand Relationship Specialty Start Date End Date Lo Donato MD [address] [place] [address] PCP - General Family Medicine 04/25/22 [facility] 03/17/24 documented as of this encounter
--- OUTSIDE RECORDS SUMMARY | 2025-02-24 11:28 | XMS_ITS | Encounter Summary ---
Author Organization [employer] Address [address] [facility] 7t [place] [address] Care Team Providers Care Electronic Drafter Name Role Phone Lo Donato MD Primary Care Provider [phone] Encounter Details Date Type Department Care Team (Late st Contact Info) Description 10/20/2023 Telephone [facility] [address] [place], [place] [phone] Lo Donato MD [address] [place], [place] [phone] Social History Tobacco Use Types Packs/Day Years [...] Description 03/02/2025 1:45 PM EDT Office Visit [facility] [address] [place] [address] Jennifer Campa MD [address] [place], [place] [phone] documented as of this encounter Visit Diagnoses Not on filedocumented in this encounter Additional Health Concerns Assessment Noted Time PHQ-9 Depression Total Score: 0 09/25/19 24 11:56 AM EDT documented as of this encounter Care Teams Electronic Drafter Relationship Specialty Start Date End Date Lo Donato MD [address] [place] [address] [phone] PCP - General Family Medicine 04/25/22 [facility] 03/17/24 documented as of this encounter
--- OUTSIDE RECORDS SUMMARY | 2025-02-24 11:28 | XMS_ITS | Encounter Summary ---
Author Organization [employer] Address [address] [facility] 7t [place] [address] Care Team Providers Care Soccer Commentator Name Role Phone Lo Donato MD Primary Care Provider [phone] Encounter Details Date Type Department Care Team (Late st Contact Info) Description 09/04/2024 Orders Only [facility] [address] [place], [place] [phone] Lo Donato MD 230 [place], [place] [phone] Social History Tobacco Use Types Packs/Day Years [...] Description 03/02/2025 1:45 PM EDT Office Visit [facility] [address] [place] [address] [phone] Jennifer Campa MD 230 [place], [place] [phone] documented as of this encounter Visit Diagnoses Not on filedocumented in this encounter Additional Health Concerns Assessment Noted Time PHQ-9 Depression Total Score: 0 09/25/19 11:56 AM EDT documented as of this encounter Care Teams Soccer Commentator Relationship Specialty Start Date End Date Lo Donato MD [address] [place] [address] [phone] PCP - General Family Medicine 04/25/22 [facility] 03/17/24 documented as of this encounter
--- OUTSIDE RECORDS SUMMARY | 2025-02-24 11:28 | XMS_ITS | Encounter Summary ---
Author Organization [employer] Address [address] [facility] 7t [place] [address] Care Team Providers Care Economic Historian Name Role Phone Lo Donato MD Primary Care Provider [phone] Reason for Visit * Reason Onset Date Comments Care Coordination 05/06/2024 Encounter Details Date Type Department Care Team (Late st Contact Info) Description 05/06/2024 Telephone [facility] 230 [place], [place] [phone] Lo Donato MD 230 [place], [place] [phone] Care Coordination Social History Tobacco Use Types [...] Gabi ABEL requesting a HDF appt. Hospital: [facility] Date of admission: 04/25/24 Discharge date: 05/02/24 Diagnosed: Dementia, Diabetes *Send message to [place] Clinical Care Coordinators documented in this encounter Plan of Treatment Upcoming Encounters Date Type Department Care Team (Late st Contact Info) Description 03/02/2025 1:45 PM EDT Office Visit [facility] [address] [place] [phone] Jennifer Campa MD [address] [place] [address] documented as of this encounter Visit Diagnoses Not on filedocumented in this encounter Additional Health Concerns Assessment Noted Time PHQ-9 Depression Total Score: 0 09/25/19 24 11:56 AM EDT documented as of this encounter Care Teams Economic Historian Relationship Specialty Start Date End Date Lo Donato MD [address] [place] [address] [phone] PCP - General Family Medicine 04/25/22 [facility] 03/17/24 documented as of this encounter
--- OUTSIDE RECORDS SUMMARY | 2025-02-24 11:28 | XMS_ITS | Encounter Summary ---
Author Organization [facility] Address [address] [place] [address] Care Team Providers Care Syrup Maker Cook Name Role Phone Lo Donato MD Primary Care Provider [phone] Encounter Details Date Type Department Care Team (Late st Contact Info) Description 03/05/2024 Lab Requisition [facility] - Main Lab [address] [facility] [place] [address] Yovanny Golden MD [address] [facility] [address], [phone] Essential (primary) hypertension Social History Tobacco Use [...] Travel phlebotomy fee (03/08/2024 7:06 AM EST) [facility] TRAVEL PHLEBOTOMY FEE Completed 03/09/2024 10:01 AM [facility] Blood Venous blood specimen / Unknown Venipuncture / Unknown 03/08/2024 7:06 AM EST 03/09/2024 9:59 AM EST us Yovanny Golden MD LAB BLOOD ORDERABLES Final Resul t [facility] [address] [place] [address], [place] [phone] * (ABNORMAL) Basic metabolic panel (03/08/2024 7:06 AM EST) [facility] Sodium 138 133 - 145 mmol/L LAB CHEMISTRY METHOD 03/08/2024 2:47 PM [facility] Potassium 4.5 3.5 - 5.5 mmol/L LAB CHEMISTRY METHOD 03/08/2024 2:47 PM [facility] Chloride 105 96 - 110 mmol/L LAB CHEMISTRY METHOD 03/08/2024 2:47 PM [facility] CO2 25 21 - 32 mmol/L LAB CHEMISTRY METHOD 03/08/2024 2:47 PM [facility] Anion Gap 8 3 - 11 LAB CHEMISTRY METHOD 03/08/2024 2:47 PM [facility] Glucose 131(H) 70 - 100 mg/dL LAB CHEMISTRY METHOD 03/08/2024 2:47 PM [facility] BUN 38(H) 5 - 25 mg/dL LAB CHEMISTRY METHOD 03/08/2024 2:47 PM [facility] Creatinine 1.61(H) 0.50 - 1.10 mg/dL LAB CHEMISTRY METHOD 03/08/2024 2:47 PM [facility] eGFR 34(L) >=60 mL/min/1. 73m2 LAB CHEMISTRY METHOD 03/08/2024 2:47 PM EST [facility] Comment:Calculation based on the Chronic Kidney Disease Epidemiology Collaboration (CKD-EPI) equation refit without adjustment for race. BUN/Creatinine Ratio 23.6 LAB CHEMISTRY METHOD 03/08/2024 2:[address] [facility] Calcium 9.9 8.5 - 10.5 mg/dL LAB CHEMISTRY METHOD 03/08/2024 2:47 PM [facility] Blood Venous blood specimen / Unknown Venipuncture / Unknown 03/08/2024 7:06 AM EST 03/08/2024 2:47 PM EST us Yovanny Golden MD LAB BLOOD ORDERABLES Final Resul t [facility] [address] [place] [address], [place] [phone] * (ABNORMAL) Complete blood count (03/08/2024 7:06 AM EST) WBC 7.6 4.8 - 10.8 K/mcL LAB HEMETOLOGY METHOD 03/08/2024 1:19 PM [facility] RBC 4.50 3.80 - 4.80 M/mcL LAB HEMETOLOGY METHOD 03/08/2024 1:19 PM [facility] Hemoglobin 12.4 11.5 - 16.0 g/dL LAB HEMETOLOGY METHOD 03/08/2024 1:19 PM [facility] Hematocrit 40.2 35.0 - 47.0 % LAB HEMETOLOGY METHOD 03/08/2024 1:19 PM [facility] MCV 89.9 79.0 - 98.0 FL LAB HEMETOLOGY METHOD 03/08/2024 1:19 PM [facility] MCH 27.7 27.0 - 32.0 pcg LAB HEMETOLOGY METHOD 03/08/2024 1:19 PM [facility] MCHC 30.8(L) 32.0 - 37.0 g/dL LAB HEMETOLOGY METHOD 03/08/2024 1:[address] [facility] RDW 14.8 11.0 - 15.0 % LAB HEMETOLOGY METHOD 03/08/2024 1:19 PM [facility] Platelets 269 130 - 400 K/mcL LAB HEMETOLOGY METHOD 03/08/2024 1:19 PM [facility] MPV 11.7(H) 7.0 - 11.0 FL LAB HEMETOLOGY METHOD 03/08/2024 1:19 PM [facility] NRBC 0.0 <1.0 % LAB HEMETOLOGY METHOD 03/08/2024 1:19 PM [facility] NRBC Absolute 0.00 <0.10 K/mcL LAB HEMETOLOGY METHOD 03/08/2024 1:19 PM [facility] Blood Venous blood specimen / Unknown Venipuncture / Unknown 03/08/2024 7:06 AM EST 03/08/2024 1:18 PM EST us Yovanny Golden MD LAB BLOOD ORDERABLES Final Resul t [facility] [address] [place] [address], documented in this encounter Visit Diagnoses Diagnosis Essential (primary) hypertension Unspecified essential hypertension documented in this encounter Additional Health Concerns Infection Onset Date Last Indicated Resolved Time Respiratory Rule-Out 12/08/2024 12/08/2024 025 4:02 PM EDT COVID-19 Rule-Out 12/08/2024 12/08/2024 12/08/2024 4:02 PM EDT C. difficile Rule-Out 12/08/2024 12/09/20242024 4:30 AM EDT C. difficile 12/09/2024 01/02/2025 01/25/2025 12:4 7 PM EDT [facility] Comment:11/14/24 Klebsiella pneumoniae [facility] 12/23/2024 Klebsiella pneumoniae [facility] (2 negative urine cultures or 1 year since last positive culture to remove isolation precautions) 12/23/2024 01/24/2025 Respiratory Rule-Out 01/02/2025 01/02/2025 025 8:40 PM EDT COVID-19 Rule-Out 01/02/2025 01/02/2025 01/02/2025 8:40 PM EDT Gastrointestinal Rule-Out 01/02/2025 01/02/2025 9:30 PM EDT Respiratory Rule-Out 01/24/2025 01/24/2025 025 2:31 PM EDT Gastrointestinal Rule-Out Comment:Testing canceled 01/25/2025 01/25/2025 01/26/2025 4:24 PM EDT C. difficile Rule-Out 01/29/2025 01/29/20252024 10:10 AM EDT Gastrointestinal Rule-Out Comment:Order canceled 01/30/2025 01/30/2025 02/01/2025 10:42 AM EDT documented as of this encounter Care Teams Syrup Maker Cook Relationship Specialty Start Date End Date Lo Donato MD [address] [place] [phone] PCP - General Welding Machine Assembler 01/24/25 documented as of this encounter
--- OUTSIDE RECORDS SUMMARY | 2025-02-24 11:28 | XMS_ITS | Encounter Summary ---
Author Organization [employer] Address [address] [facility] 7t [place] [address] Care Team Providers Care Whipped Topping Supervisor Name Role Phone Lo Donato MD Primary Care Provider [phone] Reason for Visit * Reason Onset Date Comments Hospital Follow-up 02/21/2025 Encounter Details Date Type Department Care Team ([facility] st Contact Info) Description 02/21/2025 Telephone [facility] [address] [place], [place] [phone] Lo Donato MD [address] [place], [place] [phone] Hospital Follow-up Social History Tobacco Use Types Packs/Day Years [...] encounter Miscellaneous Notes * Telephone Encounter - Sparkle Devi - 02/21/2025 3:11 PM EDT Tc from pt requesting a HDF appt. Hospital: [facility] Date of admission: 02/03 Discharge date: 02/15 Diagnosed: right hip fracture *Send message to [place] Clinical Care Coordinators documented in this encounter Plan of Treatment Upcoming Encounters Date Type Department Care Team (Late st Contact Info) Description 03/02/2025 1:45 PM EDT Office Visit [facility] [address] [place] [address] [phone] Jennifer Campa MD [address] [place] [address] [phone] documented as of this encounter Visit Diagnoses Not on filedocumented in this encounter Additional Health Concerns Assessment Noted Time PHQ-9 Depression Total Score: 0 09/25/19 11:56 AM EDT documented as of this encounter Care Teams Whipped Topping Supervisor Relationship Specialty Start Date End Date Lo Donato MD [address] [place] [address] [phone] PCP - General Family Medicine 04/25/22 [facility] 03/17/24 documented as of this encounter
--- OUTSIDE RECORDS SUMMARY | 2025-02-24 11:28 | XMS_ITS | Encounter Summary ---
Author Organization [employer] Address [address] [facility] 7t [place] [address] Care Team Providers Care Labor Crew Supervisor Name Role Phone Lo Donato MD Primary Care Provider [phone] Reason for Visit * Reason Comments Med Change Request Encounter Details Date Type Department Care Team (Late st Contact Info) Description 09/02/2024 Refill [facility] [address] [place], [place] [phone] Lo Donato MD 230 [place], [place] [phone] Social History Tobacco Use Types Packs/Day Years [...] PM EDT Office Visit [facility] [address] [place] [address] [phone] Jennifer Campa MD [address] [place], [place] [phone] documented as of this encounter Visit Diagnoses Not on filedocumented in this encounter Additional Health Concerns Assessment Noted Time PHQ-9 Depression Total Score: 0 09/25/19 24 11:56 AM EDT documented as of this encounter Care Teams Labor Crew Supervisor Relationship Specialty Start Date End Date Lo Donato MD [address] [place] [address] [phone] PCP - General Family Medicine 04/25/22 [facility] 03/17/24 documented as of this encounter
--- OUTSIDE RECORDS SUMMARY | 2025-02-24 11:28 | XMS_ITS | Encounter Summary ---
Author Organization [employer] Address [address] [facility] [address]t [place] [address] Care Team Providers Care Global Head Advertiser Solutions Name Role Phone Lo Donato MD Primary Care Provider [phone] Reason for Visit * Reason Onset Date Comments PT-1 06/27/2024 Encounter Details Date Type Department Care Team (Late st Contact Info) Description 06/27/2024 Telephone [facility] MEDICINE [address] [place], [place] [phone] Lo Donato MD [address] [place], [place] [phone] PT-1 (/) Social History Tobacco Use Types [...] Y/N: Yes Provider name or facility name: [address] [place] [address], [facility] Escort needed: Y/N: Yes Do you have a wheelchair: Y/N: Yes If yes- Manual or electric: Manual Visits: (2 x Monthly) documented in this encounter Plan of Treatment Upcoming Encounters Date Type Department Care Team (Late st Contact Info) Description 03/02/2025 1:45 PM EDT Office Visit [facility] MEDICINE [address] [place] [phone] Jennifer Campa MD [address] [place] [phone] documented as of this encounter Visit Diagnoses Not on filedocumented in this encounter Additional Health Concerns Assessment Noted Time PHQ-9 Depression Total Score: 0 09/25/19 24 11:56 AM EDT documented as of this encounter Care Teams Global Head [employer]iser [employer] Relationship Specialty Start Date End Date Lo Donato MD [address] [place] [phone] PCP - General Family Medicine 04/25/22 [facility] 03/17/24 documented as of this encounter
--- OUTSIDE RECORDS SUMMARY | 2025-02-24 11:28 | XMS_ITS | Encounter Summary ---
Author Organization [employer] Address [address] [facility] 7t [place] [address] Care Team Providers Care An/Ssn 2 4 Operator Name Role Phone Lo Donato MD Primary Care Provider [phone] Reason for Visit * Reason Onset Date Comments Durable Medical Equipment 07/10/2023 Encounter Details Date Type Department Care Team (Late st Contact Info) Description 07/10/2023 Telephone [facility] MEDICINE [address] [place], [place] [phone] Lo Donato MD [address] [place], [place] [phone] Durable Medical Equipment Social History Tobacco Use [...] - 07/10/2023 4:10 PM EST Tc from [facility] with [facility] requesting a transport wheelchair due to weakness to be sent to [facility]. ICD code- R53.1 documented in this encounter Plan of Treatment Upcoming Encounters Date Type Department Care Team (Late st Contact Info) Description 03/02/2025 1:45 PM EDT Office Visit [facility] MEDICINE [address] [place] [address] [phone] Jennifer Campa MD [address] [place] [phone] documented as of this encounter Visit Diagnoses Not on filedocumented in this encounter Additional Health Concerns Assessment Noted Time PHQ-9 Depression Total Score: 11 023 10:00 AM EDT documented as of this encounter Care Teams An/Ssn 2 4 Operator Relationship Specialty Start Date End Date Lo Donato MD [address] [place] [address] [phone] PCP - General Family Medicine 04/25/22 [facility] 03/17/24 documented as of this encounter
--- OUTSIDE RECORDS SUMMARY | 2025-02-24 11:28 | XMS_ITS | Encounter Summary ---
Author Organization [employer] Address [address] [facility] 7t [place] [address] Care Team Providers Care Neon Sign Installer Name Role Phone Lo Donato MD Primary Care Provider [phone] Encounter Details Date Type Department Care Team (Late st Contact Info) Description 08/04/[address] [facility] MEDICINE 230 [place], [place] [phone] Lo Donato MD [address] [place], [place] [phone] Social History Tobacco Use Types Packs/Day Years [...] Description 03/02/2025 1:45 PM EDT Office Visit [facility] MED[facility]INE [address] [place] [address] [phone] Jennifer Campa MD 230 [place], [place] [phone] documented as of this encounter Visit Diagnoses Not on filedocumented in this encounter Additional Health Concerns Assessment Noted Time PHQ-9 Depression Total Score: 0 09/25/19 11:56 AM EDT documented as of this encounter Care Teams Neon Sign Installer Relationship Specialty Start Date End Date Lo Donato MD [address] [place] [address] [phone] PCP - General Family Medicine 04/25/22 [facility] 03/17/24 documented as of this encounter
--- OUTSIDE RECORDS SUMMARY | 2025-02-24 11:28 | XMS_ITS | Encounter Summary ---
Author Organization [facility] Address [address] [place] [address] Care Team Providers Care Donor Services Manager Name Role Phone Lo Donato MD Primary Care Provider [phone] Encounter Details Date Type Department Care Team (Late st Contact Info) Description 03/14/2024 Lab Requisition [facility] - Main Lab [address] [facility] [place] [address] Yovanny Golden MD [address] [facility] [address] [place], [phone] Essential (primary) hypertension Social History Tobacco Use [...] documented as of this encounter Care Teams Donor Services Manager Relationship Specialty Start Date End Date Lo Donato MD [address] [place] [phone] PCP - General Pantry Attendant 01/24/25 documented as of this encounter
--- OUTSIDE RECORDS SUMMARY | 2025-02-24 11:28 | XMS_ITS | Encounter Summary ---
Author Organization [employer] Address [address] [facility] 7t [place] [address] Care Team Providers Care Mat Repairer Name Role Phone Lo Donato MD Primary Care Provider [phone] Reason for Visit * Reason Onset Date Comments Nurse Triage 06/17/2024 Encounter Details Date Type Department Care Team (Late st Contact Info) Description 06/17/2024 Telephone [facility] MEDICINE [address] [place], [place] [phone] Lo Donato MD 230 [place], [place] [phone] Nurse Triage Social History Tobacco Use Types [...] Please assist with obtaining discharge summary for [facility] admission dates of 05/12/2024-06/13/2024 for provider review prior to upcoming appointment. Future Appointments Date Time Provider Department Center 07/01/2024 1:30 PM [facility] MEDICINE [place] [address] P [phone] F [phone] Please update HDF log as appropriate. * Telephone Encounter - Shanda Vazquez RN - 06/17/2024 11:08 AM EST Call to evelina Ruiz to inform that pt requires a HDF appt as complex and lengthy LT facility stay. Agrees to r/s for HDF with [facility] on 07/01/24, advised will contact if sooner [...] an email was sent to PCP from [facility] . Daughter report BG being monitored with [facility] but is not with patient at time of call. Appt offered with Team Provider today and Daughter is unable to arrange transport as she needs WC transport. Patient provided [facility] [employer] [facility] appt on 06/24/24 at 1145. Forwarded to [...] become worse * Telephone Encounter - Katie Burch - 06/17/2024 8:44 AM EST Symptom: Sleeping Difficulty Outcome: Schedule an appointment to be seen within 24 hours Reason: This is the only possible outcome for this symptom The caller accepted this outcome. [phone] [facility] documented in this encounter Plan of Treatment Upcoming Encounters Date Type Department Care Team (Late st Contact Info) Description 03/02/2025 1:45 PM EDT Office Visit [facility] MEDICINE [address] [place], [place] [phone] Jennifer Campa MD [address] [place], [place] [phone] documented as of this encounter Visit Diagnoses Not on filedocumented in this encounter Additional Health Concerns Assessment Noted Time PHQ-9 Depression Total Score: 0 09/25/19 24 11:56 AM EDT documented as of this encounter Care Teams Mat Repairer Relationship Specialty Start Date End Date Lo Donato MD [address] [place] [address] [phone] PCP - General Family Medicine 04/25/22 [facility] 03/17/24 documented as of this encounter
--- OUTSIDE RECORDS SUMMARY | 2025-02-24 11:28 | XMS_ITS | Clinical Summary ---
Author Organization [facility] Address [address] [facility] 7[address] [place] [address] Care Team Providers Care Sheet Manager Name Role Phone Lo Donato MD Primary Care Provider [phone] Allergies Active Allergy Reactions Criticality Noted Date Comments Morphine 09/27/2024 Other Reaction(s): patient sensitive to morphine Medications * This document contains information received from the source organization and may not represent a complete record from that organization. albuterol 108 (90 Base) MCG/ACT inhaler inhale 2 puff by inhalation route every 4 - 6 hours as needed 12/27/19 22 Active Misc. Devices (Rollator Ultra-Light) misc Use as directed Acti ve docusate sodium (Colace) 100 MG capsule Take 1-2 capsules by mouth 2 times daily. Active Blood Pressure kitIndications:E ssential hypertension Use to monitor BP 1 kit 01/10/20 23 Active fluticasone (Flonase) 50 MCG/ACT nasal spray SPRAY 1 SPRAY INTO EACH NOSTRIL TWICE A DAY 48 mL 3 10/13/19 24 Active sennosides (Senokot) 8.6 MG tablet Take 8.6 mg by mouth. 11/30/19 24 Active Blood Glucose Monitoring Suppl (ONE TOUCH ULTRA 2) w/Device kitIndications:T ype 2 diabetes mellitus with hyperglycemia, with long-term current use of insulin ([facility]) 1 each 2 times daily. Test by intradermal route 3 times every day 1 kit 06/22/19 25 Active SITagliptin (Januvia) 25 MG tabletIndication s:Type 2 diabetes mellitus with hyperglycemia, with long-term current use of insulin ([facility]) Take 1 tablet (25 mg) by mouth Once per day. 30 tablet 11 07/01/19 25 026 Active Alcohol Swabs (Alcohol Prep) padsIndications: Type 2 diabetes mellitus with hyperglycemia, with long-term current use of insulin (HCC) Use 1 pad topically prior to insulin administration 100 each 07/01/19 25 Active pen needle 32G x 4 mm miscIndications: Type 2 diabetes mellitus with hyperglycemia, with long-term current use of insulin ([facility]) Inject under the skin if needed (insulin administration). Use 4 x day with insulin pens 100 each 07/01/19 25 Active white petrolatum-zinc (Skin Protectant) 58.3 % creamIndications :Urinary incontinence due to cognitive impairment APPLY TO AFFECTED AREA TWICE A DAY 60 g 1 07/01/19 25 Active insulin lispro (HumaLOG KWIKPEN) 100 UNIT/ML injectionIndicat ions:Type 2 diabetes mellitus with hyperglycemia, with long-term current use of insulin ([facility]) INJECT THREE TIMES A DAY PER SLIDING SCALE 150-199 MG/DL, 2 UNITS 200-249 MG/DL, 4 UNITS 250-299, 6 UNITS 300-349, 8 UNITS 350-399. 10 UNITS 400-449, 12 UNITS AND >400 OR <70 MG/DL, CALL MD 15 mL 3 07/05/19 25 Active glucose blood (OneTouch Ultra) test stripIndications :Type 2 diabetes mellitus with hyperglycemia, with long-term current use of insulin ([facility]) Use to test blood sugar four times a day 150 strip 07/05/19 25 Active OneTouch UltraSoft 2 Lancets miscIndications: Type 2 diabetes mellitus with hyperglycemia, with long-term current use of insulin ([facility]) 1 strip before breakfast, before lunch, before evening meal, and at bedtime. 150 each 07/05/19 25 Active traZODone (Desyrel) 50 MG tabletIndication s:Type 2 diabetes mellitus with hyperglycemia, with long-term current use of insulin ([facility]) Take 0.5 tablets (25 mg) by mouth 2 times daily. 90 tablet 3 07/07/19 25 Active Continuous Glucose Sewing Machine Operator Zipper (FreeStyle Fatmata 3 Wallace) deviceIndication s:Type 2 diabetes mellitus with hyperglycemia, with long-term current use of insulin ([facility]) 1 each Once per day. Use as directed for CGM 1 each 07/14/19 25 Active Continuous Glucose Sensor (FreeStyle Fatmata 3 Plus Sensor) miscIndications: Type 2 diabetes mellitus with hyperglycemia, with long-term current use of insulin ([facility]) 1 each every 15 days. Apply 1 every 15 days as directed for CGM 2 each 07/14/19 25 Active glucose blood (FreeStyle Precision Orville Test) test strip Use to test blood sugar 2 times daily in case of CGM failure or extremes of BG 100 each 07/14/19 25 026 Active aspirin 81 MG EC tablet TAKE 1 TABLET BY MOUTH EVERY DAY 90 tablet 3 07/14/19 25 Active pantoprazole (ProtoNix) 40 MG EC tablet Take 1 tablet (40 mg) by mouth before breakfast. Do not crush, chew, or split. 90 tablet 3 07/14/19 25 Active Gauze Pads & Dressings (Hydrocell Adhesive Dressing) 4 X4 pads 1 each Once per day. 30 each 08/05/19 25 Active Linzess 145 MCG capsule TAKE 1 CAPSULE BY MOUTH DAILY BEFORE BREAKFAST. 90 capsule 1 11/01/19 25 Active tiZANidine (Zanaflex) 2 MG tablet TAKE 1 TABLET BY MOUTH EVERY 8 HOURS NEEDED FOR MUSCLE SPASMS 90 tablet 1 12/20/19 25 Active ferrous sulfate 324 (65 Fe) MG EC tablet Take 1 tablet by mouth with breakfast. Do not crush, chew, or split 02/16/20 25 025 Active thiamine (Vitamin B-1) 100 MG tablet Take 1 tablet by mouth Once per day. 02/16/20 25 025 Active acetaminophen (Tylenol) 325 MG tablet Take 2 tablets by mouth every 4 (four) hours if needed for mild pain, headaches or fever. 02/16/20 25 Active metoprolol succinate XL (Toprol-XL) 25 MG 24 hr tablet Take 25 mg by mouth Once per day. 12/29/19 25 025 Active Problems Problem Noted Date Diagnosed Date Stage 3b chronic kidney disease ([facility]/HCC) 2024 Hypertensive heart and chron ic kidney disease stage 3 (CMS/HCC) 09/16/2024 Acquired arteriovenous malformation 07/13/2024 Requires assistance with activities of daily neftali ing (ADL) 12/18/2023 Closed fracture of neck of femur 12/01/2023 Counseling, unspecified 09/30/2023 Moderate vascular dementia with agitation ([facility]/ CC) 09/29/2023 Assessment & Plan (09/29/2023 2:27 PM EDT): Presumed dementia based on cognitive and executive functioning without formal dx Daughter will call [facility] to reschedule neurology eval Continue day/night cycles BH came to speak with patient about therapy and psych prescriber referrals. Weakness 07/17/2023 Assessment & Plan (07/17/2023 5:15 PM EDT): Chronic, requiring manual wheelchair for safe movement, Autoimmune hepatitis (CMS/HCC) 07/14/2023 Assessment & Plan (07/17/2023 5:08 PM EDT): Followed by GI, tolerating medications, does not have follow up with gI scheduled, contact information given as well as referral Gastric antral vascular ectasia 06/16/2023 Cerebrovascular accident ([facility]) 03/24/2023 History of upper gastrointestinal bleeding 03/19 Assessment [...] Hospital discharge follow-up 11/12/2022 Assessment & Plan (09/08/2024 4:40 PM EDT): Medications reviewed Necessity for referrals and supplies reviewed Assessment & Plan (07/17/2023 5:14 PM EDT): [...] baseline [CKD3]. She was discharged back to [facility] for long-term care. At home tolerating medications prescribed, reviewed importance of GI follow up Glargine increased today based on home glucometer readings, follow up with PCP as scheduled Assessment & Plan (11/12/2022 8:50 AM EDT): MED LIST reviewed and updated CONTINUE Rifaxamin for hepatic encephalopathy, need GI notes from [facility] CONTINUE Calcitriol for compression fracture STOP Lisinopril due to SAM STOP Loratadine (already on Claritin) CALL L&C about hospital bed Thoracic back pain 09/15/2022 Assessment & Plan (11/12/2022 8:52 AM EDT): With compression fracture documented at [facility] Referral to spine surgery at [facility] for potential kyphoplasty Arthritis 06/18/2022 Overview (06/18/2022): hands Type 2 diabetes mellitus 06/18/2022 Assessment & Plan (09/08/2024 4:42 PM EDT): Diabetes is: controlled - Lab Results Component Value Date HGBA1C 7.1 (A) 07/01/2024 HGBA1C 7.5 (A) 09/25/2023 HGBA1C 7.3 (A) 07/15/2023 - Lab Results Component Value Date MICROALBUR 24.6 10/16/2020 CREATININE 1.45 (H) 07/01/2024 -Changes: No changes of medications after discharge, in light of eating fluctuations I agree to continue for now with insulin sliding scale C/w VNA services F/u with PCP Assessment & Plan (09/29/2023 2:23 PM EDT): [...] considering day program referral to care management Class 1 obesity 06/18/2022 Cirrhosis of liver (CMS/HCC) 06/18/2022 Assessment & Plan (07/17/2023 5:08 PM [...] restarted by spring 2023 Recurrent falls 04/16/2022 Lipoma of back 11/05/2020 Toxic encephalopathy 10/26/2020 Seasonal allergies 10/26/2020 Gastroesophageal reflux disease 10/26/2020 Falling 10/26/2020 Varicose veins of both lower extremities 020 [...] frequent changes to prevent infection Daughter has BUSINESS PROCESS ENGINEER hours and is trying to have patient move in with her Chronic renal disease, stage IV ([facility]) Assessment & Plan (09/29/2023 2:29 PM EDT): Lab Results Component Value Date EGFR 33 07/15/2023 Vacillates between CKD 3 and CKD 4 Last saw nephro 09/23/23 Resolved Problems Problem Noted Date Diagnosed Date Resolved Date Dementia ([facility]) 06/18/2022 5 Assessment & Plan (01/27/2023 4:46 PM EDT): [...] body position. Accessories: - Side rails: The patient s conditions require this item and they are an integral part of, or an accessory to, a covered hospital bed. -Gel overlay: Gel overlay required due to limited mobility and - Patient has a pressure ulcer on the trunk or pelvis. - Patient has impaired nutritional status - Patient has incontinence - Patient has altered sensory perception - Patient has compromised circulatory status Encounters Date Type Department Care Team Description 02/21/2025 Telephone [facility] [address] [place] [phone] Lo Donato MD Hospital Follow-up 02/21/[address] [address] Mona Cerda, PharmD Appointment Request 02/16/2025 Patient Outreach [facility] [address], [place] [phone] Lo Donato MD Pre-visit Planning (HDF scheduled.) 02/09/2025 Orders Only [email or web address] [address] [place] [address] Airam Rankin MD 02/06/2025 Patient Outreach [facility] [address] [place] [phone] Lo Donato MD Transition Of Care (Tcm) (HDF unscheduled LVM ) 01/26/2025 Orders Only [email or web address] Information [facility] [address] [place] [address] Airam Rankin MD 01/24/2025 10:30 AM EDT Office Visit [address] [address] Bianca Johnson ANP Hypertensive heart and chronic kidney disease stage 3 ([facility]/HCC) (Primary Dx); Generalized abdominal pain; Type 2 diabetes mellitus with diabetic nephropathy, with long-term current use of insulin ([facility]); SAM (acute kidney injury) ([facility]); NSTEMI (non-ST elevated myocardial infarction) ([facility]); Recurrent UTI; History of Clostridioides difficile colitis; Hospital discharge follow-up 01/24/2025 Travel 01/23/2025 Telephone [facility] [address] [place] [phone] Bianca Johnson ANP chart prep 01/17/2025 Patient Outreach [facility] [address], [place] [phone] Lo Donato MD Transition Of Care (Tcm) (HDF scheduled. ) 01/17/[address] [address] Lo Donato MD Hospital Follow-up 01/11/2025 Refill [facility] [address] [place] [phone] Lo Donato MD 01/06/2025 Patient Outreach [address] [address] Lo Donato MD Transition Of Care (Tcm) (HDF- Number not accepting calls ) 12/29/2024 Patient Outreach [address] [address] Lo Donato MD Transition Of Care (Tcm) (HDF unscheduled) 12/28/2024 Telephone [facility] [address] [place] [phone] Lo Donato MD Referral 12/28/2024 Patient Outreach [facility] [address] [place] [phone] Lo Donato MD Transition Of Care (Tcm) (HDF unscheduled) 12/22/[address] [address] [place] chart prep 12/18/[address] [address] Lo Donato MD 12/13/2024 Patient Outreach [address] [phone] Lo Donato MD Transition Of Care (Tcm) (HDF scheduled) 12/13/[address] [address] Lo Donato MD Hospital Follow-up; No Show (Pt no show to [facility] 12/09/24-12/10/24 DX gastroenteritis and colitis on 12/23/2024. No show forward to PCP Team nurses. ) 12/13/[address] [address] Lo Donato MD Med Refill 12/12/[address] [address] Lo Donato MD fax; Call Back Request 12/12/2024 Patient Outreach [address] [address] Lo Donato MD Transition Of Care (Tcm) ([facility] unscheduled LVM ) 12/09/2024 Orders Only [facility] [address] [place] [phone] Airam Rankin MD 12/07/[address] [address] Lo Donato MD Hospital Follow-up 12/02/[address] [address] Lo Donato MD verbal orders 11/25/2024 Patient Outreach [facility] [address] [place] [phone] Lo Donato MD Transition Of Care (Tcm) (HDF unscheduled) from Last 3 Months Immunizations Immunization Administration Dates Next Due Carin SARS-CoV-2 Vaccination 10/15/2020 Pfizer Covid-19 Vaccine 12+ 07/09/2021 Pfizer Covid-19 Vaccine 12+ Bivalent 07/09/2021 Pfizer Covid-19 Vaccine 12+ jason-sucrose (Matthew C ap) 07/09/2021 Pneumococcal Conjugate PCV 20 04/07/2024, 022 Pneumococcal Polysaccharide PPSV23 01/15/2022 TD (adult), 2 Lf tetanus tox oid, preservative free, adsorbed 03/21/2018 Td (adult), 5 Lf tetanus tox oid, preservative free, adsorbed [...] Sign Reading Time Taken Comments Blood Pressure 118/74 01/24/2025 11:12 AM EDT Pulse 80 01/24/2025 11:12 AM EDT Temperature 36 C (96.8 F) 09/08/2024 2:14 PM EDT Respiratory Rate 20 01/24/2025 11:12 AM EDT Oxygen Saturation 97% 09/08/2024 2:14 PM EDT Inhaled Oxygen Concentration - - Weight 64 kg (141 lb) 01/24/2025 11:12 AM EDT Height 137.2 cm (4' 6 ) 01/24/2025 11:12 AM EDT Body Mass Index 34 01/24/2025 11:12 AM EDT Plan of Treatment Upcoming Encounters Date Type Department Care Team (Late st Contact Info) Description 03/02/2025 1:45 PM EDT Office Visit [facility] [address] [place] [phone] Jennifer Campa MD [address] [place] [address] Health Maintenance Due Date Last Done Comments CT Colonography 1950 FIT DNA/Cologuard 1950 FIT 1950 FOBT 1950 Sigmoidoscopy 1950 Diabetes: Foot Exam 1960 Eye Exam 1960 Alcohol/Substance Use Screening 1962 Hepatitis C Screening 1968 Hepatitis A Vaccines [...] 2) 03/12/2022 01/15/2022 Lipid Panel 01/15/2023 01/15/2022 SDOH Screening 01/22/2024 01/21/2023 Depression Screening 09/24/2024 09/25/2023, 09/25/19 24 Colonoscopy 10/04/2024 Colorectal Cancer Screening 10/04/2024 COVID-19 Vaccine ( season) 2025 07/09/2021, 07/09/2021, 07/09/2021, Additional history exists Influenza Vaccine (#1) 2025 Diabetes: Hemoglobin A1C 04/25/2025 025, 07/01/2024, 04/29/2024, Additional history exists Tobacco Screening 01/24/2026 01/24/2025 Pneumococcal Vaccine: 50+ Years Completed 04/07/2024, 01/15/2022, 01/15/2022 HIB Vaccines Aged Out No longer eligi ble based on patient's age to complete this topic HPV Vaccines Aged Out No longer eligi ble based on patient's age to complete this topic IPV Vaccines Aged Out No longer eligi ble based on patient's age to complete this topic Meningococcal B Vaccine Aged Out No l onger eligible based on patient's age to complete [...] Procedure Name Priority Date/Time Associated Diagnosis Comments CT PELVIS WO CONTRAST Routine 02/07/2025 9:40 AM EDT AMB REFERRAL TO NEPHROLOGY Routine 01/29/2025 SAM (acute kidney injury) ([facility]) CT CHEST WO CONTRAST Routine 01/25/2025 1:59 PM EDT POCT GLYCATED HEMOGLOBIN, TOTAL Routine 01/24/2025 11:15 AM EDT Type 2 diabetes mellitus with diabetic nephropathy, with long-term current use of insulin ([facility]) POCT GLUCOSE Routine 01/24/2025 11:15 AM EDT Type 2 diabetes mellitus with diabetic nephropathy, with long-term current use of insulin ([facility]) CT ABDOMEN PELVIS W CONTRAST Routine 12/08/2024 9:49 AM EDT LIPID PANEL, STANDARD Routine 01/15/2022 10:28 AM EDT BI MAMMOGRAM SCREENING BILATERAL Routine 01/01/2018 2:38 PM EDT from Last 3 Months or Most Recently Relevant to Health Maintenance Results * CT Pelvis w/o Contrast (02/07/2025 9:40 AM EDT) Anatomical Region Laterality Modality Body, Pelvis Computed Tomogra phy Result [facility] Historical Provider IMAmber CT PROCEDURES Final R esult * Referral to Nephrology (01/29/2025) Result [facility] OUTPATIENT REFERRAL ORDERABLE S Final Result * CT CHEST WO CONTRAST (01/25/2025 1:59 PM EDT) Anatomical Region Laterality Modality Computed Tomogra phy Result [facility] Historical Provider IMAmber CT PROCEDURES Final R esult * (ABNORMAL) POCT Hgb A1c (01/24/2025 11:15 AM EDT) Hemoglobin A1C 7.5(A) 4.0 - 5.7 % QC Media Lot # [id number] Lot# Expiration Date [id number] Blood 01/24/2025 11:1 5 AM EDT Result [facility] Bianca MANRIQUE POINT OF CARE TEST ENTER/EDIT OR DERABLES Final Result * (ABNORMAL) POCT Glucose (01/24/2025 11:15 AM EDT) Glucose Blood, POC 221(A) 60 - 200 mg/dL QC Media Lot # [id number] Lot# Expiration Date [id number] Blood Capillary blood specimen / Unknown 01/24/2025 11:15 AM EDT Result [facility] Bianca MANRIQUE POINT OF CARE TEST ENTER/EDIT OR DERABLES Final Result * CT Abdomen Pelvis w/ Contrast (12/08/2024 9:49 AM EDT) Anatomical Region Laterality Modality Body, Pelvis, Abdomen Computed T omography Historical Provider IMG CT PROCEDURES Final R esult * (ABNORMAL) LIPID PANEL, STANDARD (01/15/2022 10:28 AM EDT) Chol/HDLC Ratio 2.2 <5.0 (calc) [facility] Cholesterol, Total 280(H) <200 mg/dL [facility] HDL Cholesterol 129 > OR = 50 mg/dL [facility] LDL Cholesterol 131(H) mg/dL (calc) [facility] Comment: Reference range: <100 Desirable range <100 mg/dL for primary prevention; <70 mg/dL for patients with CHD or diabetic patients with > or = 2 CHD risk factors. LDL-C is now calculated using the José-Sd calculation, which is a validated novel method providing better accuracy than the Friedewald equation in the estimation of LDL-C. José SS et al. NAE. 2013;310(19): 6218-8268 (http://education.MyMedLeads.com.com/faq/RRZ638) Non-HDL Cholesterol 151(H) <130 mg/dL (calc) [facility] Comment: For patients with diabetes plus 1 major ASCVD risk factor, treating to a non-HDL-C goal of <100 mg/dL (LDL-C of <70 mg/dL) is considered a therapeutic option. Triglycerides 98 <150 mg/dL [facility] 01/15/2022 10:2 8 AM EDT Kathy Buck MD LAB BLOOD ORDERABLES Final R esult [facility] [address] [place] [address], * DIGITAL BILATERAL SCREEN 1 (01/01/2018 2:38 PM EDT) Anatomical Region Laterality Modality Breast Bilateral Mammography 01/01/2018 2:38 PM EDT Narrative 01/01/2018 2:42 PM EDT Refer to the Notes tab for result details [facility] Procedure: DIGITAL BILATERAL SCREEN 1 Procedure Note Provider, MD Airam - 07/26/2022 Refer to the Notes tab for result details [facility] Procedure: DIGITAL BILATERAL SCREEN 1 us Historical Provider MD ACEVES BI PROCEDURES Final R esult from Last 3 Months or Most Recently Relevant to Health Maintenance Insurance [facility] Care Teams Sheet Manager Relationship Specialty Start Date End Date Lo Donato MD [address] [place] [address] PCP - General Family Medicine 04/25/22 [facility] 03/17/24
--- OUTSIDE RECORDS SUMMARY | 2025-02-24 11:28 | XMS_ITS | Encounter Summary ---
Author Organization [facility] Address [address] [facility] 7t [place] [address] Care Team Providers Care Career Center Director Name Role Phone Lo Donato MD Primary Care Provider [phone] Reason for Visit * Reason Comments Med Refill Encounter Details Date Type Department Care Team (Late st Contact Info) Description 04/09/2023 Refill [facility] [address], [place] [phone] Lo Donato MD [address] [place], [place] [phone] Insomnia due to medical condition Social History [...] Description 03/02/2025 1:45 PM EDT Office Visit [facility] [address], [place] [phone] Jennifer Campa MD [address] [place], [place] [phone] documented as of this encounter Visit Diagnoses Diagnosis Insomnia due to medical condition Organic insomnia, unspecified documented in this encounter Additional Health Concerns Assessment Noted Time PHQ-9 Depression Total Score: 11 023 10:00 AM EDT documented as of this encounter Care Teams Career Center Director Relationship Specialty Start Date End Date Lo Donato MD [address] [place] [phone] PCP - General Family Medicine 04/25/22 [facility] 03/17/24 documented as of this encounter
--- OUTSIDE RECORDS SUMMARY | 2025-02-24 11:28 | XMS_ITS | Encounter Summary ---
Author Organization [facility] Address [address] [facility] 7t [place] [address] Care Team Providers Care Spring Up Supervisor Name Role Phone Lo Donato MD Primary Care Provider [phone] Encounter Details Date Type Department Care Team (Late Contact Info) Description 11/05/2022 [facility] [address] [place] [address] Lo Donato MD [address] [place] [address] Social History Tobacco Use Types Packs/Day Years [...] Encounters Date Type Department Care Team (Late Contact Info) Description 03/02/2025 1:45 PM EDT Office Visit [facility] [address] [place] [address] Jennifer Campa MD [address] [place] [address] documented as of this encounter Visit Diagnoses Not on filedocumented in this encounter Care Teams Spring Up Supervisor Relationship Specialty Start Date End Date Lo Donato MD [address] [place] [address] PCP - General Family Medicine 04/25/22 [facility] 03/17/24 documented as of this encounter
--- OUTSIDE RECORDS SUMMARY | 2025-02-24 11:28 | XMS_ITS | Encounter Summary ---
Author Organization [employer] Address [address] [facility] 7t [place] [address] Care Team Providers Care Manager Aerospace Name Role Phone Lo Donato MD Primary Care Provider [phone] Reason for Visit * Reason Onset Date Comments Medication Question 10/27/2023 Encounter Details Date Type Department Care Team (Late st Contact Info) Description 10/27/2023 Telephone [facility] [address] [place], [place] [phone] Lo Donato MD [address] [place], [place] [phone] Medication Question Social History Tobacco Use Types [...] - 10/27/2023 1:51 PM EDT Tc from [facility] with [facility] health calling to inform has notice an interaction with two medications ondansetron (Zofran) 4 MG tablet Lexapro 5 mg Any question please contact phone # [phone] documented in this encounter Plan of Treatment Upcoming Encounters Date Type Department Care Team (Late st Contact Info) Description 03/02/2025 1:45 PM EDT Office Visit [facility] [address] [place] [address] [phone] Jennifer Campa MD [address] [place], [place] [phone] documented as of this encounter Visit Diagnoses Not on filedocumented in this encounter Additional Health Concerns Assessment Noted Time PHQ-9 Depression Total Score: 0 09/25/19 11:56 AM EDT documented as of this encounter Care Teams Manager Aerospace Relationship Specialty Start Date End Date Lo Donato MD [address] [place] [address] [phone] PCP - General Family Medicine 04/25/22 [facility] 03/17/24 documented as of this encounter
--- OUTSIDE RECORDS SUMMARY | 2025-02-24 11:28 | XMS_ITS | Encounter Summary ---
Author Organization [employer] Address [address] [facility] 7t [place] [address] Care Team Providers Care Tunnel Man Name Role Phone Lo Donato MD Primary Care Provider [phone] Reason for Visit * Reason Comments Med Change Request Encounter Details Date Type Department Care Team (Late st Contact Info) Description 06/28/2024 Refill [facility] [address] [place], [place] [phone] Lo Donato MD [address] [place], [place] [phone] Social History Tobacco Use Types Packs/Day Years [...] Description 03/02/2025 1:45 PM EDT Office Visit [facility] [address] [place] [address] [phone] Jennifer Campa MD [address] [place], [place] [phone] documented as of this encounter Visit Diagnoses Not on filedocumented in this encounter Additional Health Concerns Assessment Noted Time PHQ-9 Depression Total Score: 0 09/25/19 24 11:56 AM EDT documented as of this encounter Care Teams Tunnel Man Relationship Specialty Start Date End Date Lo Donato MD [address] [place] [address] [phone] PCP - General Family Medicine 04/25/22 [facility] 03/17/24 documented as of this encounter
--- OUTSIDE RECORDS SUMMARY | 2025-02-24 11:28 | XMS_ITS | Encounter Summary ---
Author Organization [facility] Address [address] [place] [address] Care Team Providers Care Red Lead Burner Name Role Phone Lo Donato MD Primary Care Provider Encounter Details Date Type Department Care Team (Late st Contact Info) Description 04/15/2024 Lab Requisition [facility] - Main Lab [address] [facility] [place] [address] Anatoliy Solano MD [address] [place] [address] Unspecified dementia, unspecified severity, without behavioral disturbance, psychotic disturbance, mood disturbance, and anxiety (CMS/HCC V24, CMS/HCC V28) Social History Tobacco Use Types Packs/Day Years [...] mmol/L LAB CHEMISTRY METHOD 04/18/2024 4:01 PM [facility] Potassium 4.9 3.5 - 5.5 mmol/L LAB CHEMISTRY METHOD 04/18/2024 4:01 PM [facility] Comment:Hemolysis present Chloride 109 96 - 110 mmol/L LAB CHEMISTRY METHOD 04/18/2024 4:01 PM [facility] CO2 22 21 - 32 mmol/L LAB CHEMISTRY METHOD 04/18/2024 4:01 PM [facility] Anion Gap 9 3 - 11 LAB CHEMISTRY METHOD 04/18/2024 4:01 PM [facility] Glucose 177(H) 70 - 100 mg/dL LAB CHEMISTRY METHOD 04/18/2024 4:01 PM [facility] BUN 57(H) 5 - 25 mg/dL LAB CHEMISTRY METHOD 04/18/2024 4:01 PM [facility] Comment:Results verified by repeat testing Creatinine 1.98(H) 0.50 - 1.10 mg/dL LAB CHEMISTRY METHOD 04/18/2024 4:01 PM [facility] eGFR 26(L) >=60 mL/min/1. 73m2 LAB CHEMISTRY METHOD 04/18/2024 4:01 PM [facility] Comment:Calculation based on the Chronic Kidney Disease Epidemiology Collaboration (CKD-EPI) equation refit without adjustment for race. BUN/Creatinine Ratio 28.8 LAB CHEMISTRY METHOD 04/18/2024 4:01 PM [facility] Calcium 9.8 8.5 - 10.5 mg/dL LAB CHEMISTRY METHOD 04/18/2024 4:01 PM [facility] Blood Venous blood specimen / Unknown Venipuncture / Unknown 04/18/2024 5:41 AM EST 04/18/2024 10:35 AM EST us Anatoliy Solano MD LAB BLOOD ORDERABLES Final Result [facility] [address] [place] [address], documented in this encounter Visit Diagnoses Diagnosis Unspecified dementia, unspecified severity, without behavioral disturbance, psychotic disturbance, mood disturbance, and anxiety (CMS/[facility] V24, CMS/[facility] V28) documented in this encounter Additional Health Concerns Infection Onset Date Last Indicated Resolved Time Respiratory Rule-Out 12/08/2024 12/08/20242 025 4:02 PM EDT COVID-19 Rule-Out 12/08/2024 [...] documented as of this encounter Care Teams Red Lead Burner Relationship Specialty Start Date End Date Lo Donato MD [address] [place] [id number] PCP - General Dumpcart Driver 01/24/25 documented as of this encounter
--- OUTSIDE RECORDS SUMMARY | 2025-02-24 11:28 | XMS_ITS | Encounter Summary ---
Author Organization [employer] Address [address] [facility] 7t [place] [address] Care Team Providers Care Corner Trimmer Operator Name Role Phone Lo Donato MD Primary Care Provider [phone] Encounter Details Date Type Department Care Team (Late st Contact Info) Description 07/06/[address] [facility] [address] [place], [place] [phone] Lo Donato MD [address] [place], [place] [phone] Type 2 diabetes mellitus with hyperglycemia, with long-term current use of insulin ([facility]) Social History Tobacco Use Types [...] Description 03/02/2025 1:45 PM EDT Office Visit [facility] [address] [place] [phone] Jennifer Campa MD 230 [place] [address] documented as of this encounter Visit Diagnoses Diagnosis Type 2 diabetes mellitus with hyperglycemia, with long-term current use of insulin (HCC) documented in this encounter Additional Health Concerns Assessment Noted Time PHQ-9 Depression Total Score: 0 09/25/19 24 11:56 AM EDT documented as of this encounter Care Teams Corner Trimmer Operator Relationship Specialty Start Date End Date Lo Donato MD [address] [place] [phone] PCP - General Family Medicine 04/25/22 [facility] 03/17/24 documented as of this encounter
--- OUTSIDE RECORDS SUMMARY | 2025-02-24 11:28 | XMS_ITS | Encounter Summary ---
Author Organization [facility] Address [address] [place] [address] Care Team Providers Care Corrections Counselor Name Role Phone Lo Donato MD Primary Care Provider [phone] Encounter Details Date Type Department Care Team (Late st Contact Info) Description 04/05/2024 Lab Requisition [facility] - Main Lab 299 [facility] [place] [address] Anatoliy Solano MD [address] [place] [address] Unspecified dementia, unspecified severity, without behavioral disturbance, [...] Basic metabolic panel (04/05/2024 7:43 AM EST) Sodium 140 133 - 145 mmol/L LAB CHEMISTRY METHOD 04/05/2024 10:30 AM [facility] Potassium 4.9 3.5 - 5.5 mmol/L LAB CHEMISTRY METHOD 04/05/2024 10:30 AM [facility] Chloride 108 96 - 110 mmol/L LAB CHEMISTRY METHOD 04/05/2024 10:30 AM [facility] CO2 23 21 - 32 mmol/L LAB CHEMISTRY METHOD 04/05/2024 10:30 AM [facility] Anion Gap 9 3 - 11 LAB CHEMISTRY METHOD 04/05/2024 10:30 AM [facility] Glucose 51(L) 70 - 100 mg/dL LAB CHEMISTRY METHOD 04/05/2024 10:30 AM [facility] BUN 36(H) 5 - 25 mg/dL LAB CHEMISTRY METHOD 04/05/2024 10:30 AM [facility] Creatinine 1.80(H) 0.50 - 1.10 mg/dL LAB CHEMISTRY METHOD 04/05/2024 10:30 AM [facility] eGFR 29(L) >=60 mL/min/1. 73m2 LAB CHEMISTRY METHOD 04/05/2024 10:30 AM [facility] Comment:Calculation based on the Chronic Kidney Disease Epidemiology Collaboration (CKD-EPI) equation refit without adjustment for race. BUN/Creatinine Ratio 20.0 LAB CHEMISTRY METHOD 04/05/2024 10:30 AM [facility] Calcium 9.8 8.5 - 10.5 mg/dL LAB CHEMISTRY METHOD 04/05/2024 10:30 AM [facility] Blood Venous blood specimen / Unknown Venipuncture / Unknown 04/05/2024 7:43 AM EST 04/05/2024 9:35 AM EST us Anatoliy Solano MD LAB BLOOD ORDERABLES Final Result [facility] [address] [place] [address], [place] [phone] * (ABNORMAL) Complete blood count (04/05/2024 7:43 AM EST) WBC 9.1 4.8 - 10.8 K/mcL LAB HEMETOLOGY METHOD 04/05/2024 10:26 AM EST [facility] RBC 4.10 3.80 - 4.80 M/mcL LAB HEMETOLOGY METHOD 04/05/2024 10:26 AM [facility] Hemoglobin 11.6 11.5 - 16.0 g/dL LAB HEMETOLOGY METHOD 04/05/2024 10:26 AM [facility] Hematocrit 36.0 35.0 - 47.0 % LAB HEMETOLOGY METHOD 04/05/2024 10:26 AM EST [facility] MCV 87.8 79.0 - 98.0 FL LAB HEMETOLOGY METHOD 04/05/2024 10:26 AM [facility] MCH 28.3 27.0 - 32.0 pcg LAB HEMETOLOGY METHOD 04/05/2024 10:26 AM [facility] MCHC 32.2 32.0 - 37.0 g/dL LAB HEMETOLOGY METHOD 04/05/2024 10:26 AM [facility] RDW 16.0(H) 11.0 - 15.0 % LAB HEMETOLOGY METHOD 04/05/2024 10:26 AM [facility] Platelets 111(L) 130 - 400 K/mcL LAB HEMETOLOGY METHOD 04/05/2024 10:26 AM [facility] MPV 12.5(H) 7.0 - 11.0 FL LAB HEMETOLOGY METHOD 04/05/2024 10:26 AM EST [facility] NRBC 0.4 <1.0 % LAB HEMETOLOGY METHOD 04/05/2024 10:26 AM EST [facility] NRBC Absolute 0.04 <0.10 K/mcL LAB HEMETOLOGY METHOD 04/05/2024 10:26 AM EST [facility] Blood Venous blood specimen / Unknown Venipuncture / Unknown 04/05/2024 7:43 AM EST 04/05/2024 9:35 AM EST us Anatoliy Solano MD LAB BLOOD ORDERABLES Final Result [facility] [address] [place] [address], documented in this encounter Visit Diagnoses Diagnosis Unspecified dementia, unspecified severity, without behavioral disturbance, psychotic disturbance, mood disturbance, and anxiety (CMS/HCC V24, CMS/HCC V28) documented in this encounter Additional Health [...] documented as of this encounter Care Teams Corrections Counselor Relationship Specialty Start Date End Date Lo Donato MD [address] [place] [phone] PCP - General Presser Cotton Ginning 01/24/25 documented as of this encounter
--- OUTSIDE RECORDS SUMMARY | 2025-02-24 11:29 | XMS_ITS | Encounter Summary ---
Author Organization [facility] Address [address] [place] [address] Care Team Providers Care House Superintendent Name Role Phone Lo Donato MD Primary Care Provider [phone] Encounter Details Date Type Department Care Team (Late st Contact Info) Description 04/09/2024 Lab Requisition [facility] - Main Lab 299 [facility] [place] [address] Anatoliy Solano MD [address] [place] [address] Unspecified dementia, unspecified severity, without behavioral disturbance, psychotic disturbance, mood disturbance, and anxiety (CMS/HCC V24, CMS/[facility] V28) Social History Tobacco Use Types Packs/Day [...] documented as of this encounter Care Teams House Superintendent Relationship Specialty Start Date End Date Lo Donato MD [address] [place] [phone] PCP - General Live Study Manager 01/24/25 documented as of this encounter
--- OUTSIDE RECORDS SUMMARY | 2025-02-24 11:29 | XMS_ITS | Encounter Summary ---
Author Organization [facility] Address [address] [place] [address] Care Team Providers Care Machine Room Operator Name Role Phone Lo Donato MD Primary Care Provider [phone] Encounter Details Date Type Department Care Team (Late st Contact Info) Description 04/23/2024 Lab Requisition [facility] - Main Lab [address] [facility] [place] [address] Anatoliy Solano MD [address] [place] [address] Type 2 diabetes mellitus without complications (CMS/HCC V24, CMS/HCC V28); Unspecified dementia, unspecified severity, without behavioral disturbance, [...] mmol/L LAB CHEMISTRY METHOD 04/25/2024 2:47 PM [facility] Potassium 4.7 3.5 - 5.5 mmol/L LAB CHEMISTRY METHOD 04/25/2024 2:47 PM [facility] Chloride 112(H) 96 - 110 mmol/L LAB CHEMISTRY METHOD 04/25/2024 2:47 PM [facility] CO2 25 21 - 32 mmol/L LAB CHEMISTRY METHOD 04/25/2024 2:47 PM [facility] Anion Gap 2(L) 3 - 11 LAB CHEMISTRY METHOD 04/25/2024 2:47 PM [facility] Glucose 99 70 - 100 mg/dL LAB CHEMISTRY METHOD 04/25/2024 2:47 PM [facility] BUN 60(H) 5 - 25 mg/dL LAB CHEMISTRY METHOD 04/25/2024 2:47 PM [facility] Creatinine 2.30(H) 0.50 - 1.10 mg/dL LAB CHEMISTRY METHOD 04/25/2024 2:47 PM [facility] eGFR 22(L) >=60 mL/min/1. 73m2 LAB CHEMISTRY METHOD 04/25/2024 2:47 PM [facility] Comment:Calculation based on the Chronic Kidney Disease Epidemiology Collaboration (CKD-EPI) equation refit without adjustment for race. BUN/Creatinine Ratio 26.1 LAB CHEMISTRY METHOD 04/25/2024 2:47 PM [facility] Calcium 9.4 8.5 - 10.5 mg/dL LAB CHEMISTRY METHOD 04/25/2024 2:47 PM [facility] Blood Venous blood specimen / Unknown Venipuncture / Unknown 04/25/2024 5:48 AM EST 04/25/2024 11:53 AM EST Anatoliy Solano MD LAB BLOOD ORDERABLES Final Result [facility] [address] [place] [address], * (ABNORMAL) Complete blood count (04/25/2024 5:48 AM EST) WBC 7.7 4.8 - 10.8 K/mcL LAB HEMETOLOGY METHOD 04/25/2024 12:55 PM [facility] RBC 3.60(L) 3.80 - 4.80 M/mcL LAB HEMETOLOGY METHOD 04/25/2024 12:55 PM [facility] Hemoglobin 10.3(L) 11.5 - 16.0 g/dL LAB HEMETOLOGY METHOD 04/25/2024 12:55 PM [facility] Hematocrit 33.4(L) 35.0 - 47.0 % LAB HEMETOLOGY METHOD 04/25/2024 12:55 PM [facility] MCV 93.0 79.0 - 98.0 FL LAB HEMETOLOGY METHOD 04/25/2024 12:55 PM [facility] MCH 28.7 27.0 - 32.0 pcg LAB HEMETOLOGY METHOD 04/25/2024 12:55 PM [facility] MCHC 30.8(L) 32.0 - 37.0 g/dL LAB HEMETOLOGY METHOD 04/25/2024 12:55 PM [facility] RDW 16.6(H) 11.0 - 15.0 % LAB HEMETOLOGY METHOD 04/25/2024 12:55 PM [facility] Platelets 252 130 - 400 K/mcL LAB HEMETOLOGY METHOD 04/25/2024 12:55 PM EST [facility] MPV 11.5(H) 7.0 - 11.0 FL LAB HEMETOLOGY METHOD 04/25/2024 12:55 PM EST [facility] NRBC 0.0 <1.0 % LAB HEMETOLOGY METHOD 04/25/2024 12:55 PM EST [facility] NRBC Absolute 0.00 <0.10 K/mcL LAB HEMETOLOGY METHOD 04/25/2024 12:55 PM EST [facility] Blood Venous blood specimen / Unknown Venipuncture / Unknown 04/25/2024 5:48 AM EST 04/25/2024 11:53 AM EST us Anatoliy Solano MD LAB BLOOD ORDERABLES Final Result [facility] [address] [place] [address], [place] [phone] documented in this encounter Visit Diagnoses Diagnosis Type 2 diabetes mellitus without complications (CMS/HCC V24, CMS/HCC V28) Unspecified dementia, unspecified severity, without behavioral disturbance, [...] documented as of this encounter Care Teams Machine Room Operator Relationship Specialty Start Date End Date Lo Donato MD [address] [place] [phone] PCP - General Civil Division Deputy Sheriff 01/24/25 documented as of this encounter
--- OUTSIDE RECORDS SUMMARY | 2025-02-24 11:29 | XMS_ITS | Encounter Summary ---
Author Organization [facility] Address [address] [place] [address] Care Team Providers Care Agency Trainer Name Role Phone Lo Donato MD Primary Care Provider [phone] Encounter Details Date Type Department Care Team (Late st Contact Info) Description 04/18/2024 Lab Requisition [facility] - Main Lab 299 [facility] [place] [address] Anatoliy Solano MD [address] [place] [address] Unspecified dementia, unspecified severity, without behavioral disturbance, [...] mmol/L LAB CHEMISTRY METHOD 04/19/2024 8:57 AM [facility] Potassium 4.6 3.5 - 5.5 mmol/L LAB CHEMISTRY METHOD 04/19/2024 8:57 AM [facility] Chloride 111(H) 96 - 110 mmol/L LAB CHEMISTRY METHOD 04/19/2024 8:57 AM [facility] CO2 24 21 - 32 mmol/L LAB CHEMISTRY METHOD 04/19/2024 8:57 AM [facility] Anion Gap 7 3 - 11 LAB CHEMISTRY METHOD 04/19/2024 8:57 AM [facility] Glucose 135(H) 70 - 100 mg/dL LAB CHEMISTRY METHOD 04/19/2024 8:57 AM [facility] BUN 57(H) 5 - 25 mg/dL LAB CHEMISTRY METHOD 04/19/2024 8:57 AM [facility] Creatinine 1.83(H) 0.50 - 1.10 mg/dL LAB CHEMISTRY METHOD 04/19/2024 8:57 AM [facility] eGFR 29(L) >=60 mL/min/1. 73m2 LAB CHEMISTRY METHOD 04/19/2024 8:57 AM [facility] Comment:Calculation based on the Chronic Kidney Disease Epidemiology Collaboration (CKD-EPI) equation refit without adjustment for race. BUN/Creatinine Ratio 31.1 LAB CHEMISTRY METHOD 04/19/2024 8:57 AM [facility] Calcium 9.3 8.5 - 10.5 mg/dL LAB CHEMISTRY METHOD 04/19/2024 8:57 AM [facility] Blood Venous blood specimen / Unknown Venipuncture / Unknown 04/19/2024 4:44 AM EST 04/19/2024 8:26 AM EST us Anatoliy Solano MD LAB BLOOD ORDERABLES Final Result [facility] [address] [place] [address], * (ABNORMAL) Complete blood count (04/19/2024 4:44 AM EST) WBC 8.3 4.8 - 10.8 K/mcL LAB HEMETOLOGY METHOD 04/19/2024 9:39 AM EST [facility] RBC 3.40(L) 3.80 - 4.80 M/mcL LAB HEMETOLOGY METHOD 04/19/2024 9:39 AM [facility] Hemoglobin 9.6(L) 11.5 - 16.0 g/dL LAB HEMETOLOGY METHOD 04/19/2024 9:39 AM [facility] Hematocrit 31.3(L) 35.0 - 47.0 % LAB HEMETOLOGY METHOD 04/19/2024 9:39 AM EST [facility] MCV 92.3 79.0 - 98.0 FL LAB HEMETOLOGY METHOD 04/19/2024 9:39 AM [facility] MCH 28.3 27.0 - 32.0 pcg LAB HEMETOLOGY METHOD 04/19/2024 9:39 AM [facility] MCHC 30.7(L) 32.0 - 37.0 g/dL LAB HEMETOLOGY METHOD 04/19/2024 9:39 AM [facility] RDW 16.1(H) 11.0 - 15.0 % LAB HEMETOLOGY METHOD 04/19/2024 9:39 AM [facility] Platelets 274 130 - 400 K/mcL LAB HEMETOLOGY METHOD 04/19/2024 9:39 AM [facility] MPV 11.2(H) 7.0 - 11.0 FL LAB HEMETOLOGY METHOD 04/19/2024 9:39 AM EST [facility] NRBC 0.0 <1.0 % LAB HEMETOLOGY METHOD 04/19/2024 9:39 AM EST [facility] NRBC Absolute 0.00 <0.10 K/mcL LAB HEMETOLOGY METHOD 04/19/2024 9:39 AM EST [facility] Blood Venous blood specimen / Unknown Venipuncture / Unknown 04/19/2024 4:44 AM EST 04/19/2024 8:26 AM EST Anatoliy Solano MD LAB BLOOD ORDERABLES Final Result [facility] [address] [place] [address], documented in this encounter Visit Diagnoses Diagnosis [...] documented as of this encounter Care Teams Agency Trainer Relationship Specialty Start Date End Date Lo Donato MD [address] [place] [address] PCP - General Senior Manufacturing Technician 01/24/25 documented as of this encounter
--- OUTSIDE RECORDS SUMMARY | 2025-02-24 11:29 | XMS_ITS | Encounter Summary ---
Author Organization [facility] Address [address] [place] [address] Care Team Providers Care Mineralogy Teacher Name Role Phone Lo Donato MD Primary Care Provider [phone] Encounter Details Date Type Department Care Team (Late st Contact Info) Description 05/06/2024 Lab Requisition [facility] - Main Lab 299 [facility] [place] [address] Anatoliy Solano MD [address] [place] [address] Unspecified dementia, unspecified severity, without behavioral disturbance, psychotic disturbance, mood disturbance, and anxiety (CMS/HCC V24, CMS/[facility] V28) Social History Tobacco Use [...] documented as of this encounter Care Teams Mineralogy Teacher Relationship Specialty Start Date End Date Lo Donato MD [address] [place] [id number] PCP - General Moisture Meter Operator 01/24/25 documented as of this encounter
--- OUTSIDE RECORDS SUMMARY | 2025-02-24 11:29 | XMS_ITS | Encounter Summary ---
Author Organization [facility] Address [address] [place] [address] Care Team Providers Care Manpower Development Specialist Name Role Phone Lo Donato MD Primary Care Provider Encounter Details Date Type Department Care Team (Late st Contact Info) Description 04/29/2024 Lab Requisition [facility] - Main Lab 299 [facility] [place] [address] Anatoliy Solano MD [address] [place] [address] Type 2 diabetes mellitus with diabetic chronic kidney disease (CMS/HCC V24, CMS/HCC V28) Social History Tobacco [...] LAB CHEMISTRY METHOD 04/29/2024 12:34 PM EST [facility] Mean Bld Glu Estim. 137 mg/dL LAB CHEMISTRY METHOD 04/29/2024 12:34 PM EST [facility] Blood Venous blood specimen / Unknown Venipuncture / Unknown 04/29/2024 7:24 AM EST 04/29/2024 10:29 AM EST us Anatoliy Solano MD LAB BLOOD ORDERABLES Final Result [facility] [address] [place] [address], documented in this encounter Visit Diagnoses Diagnosis Type 2 diabetes mellitus with diabetic chronic kidney disease (CMS/[facility] V24, CMS/[facility] V28) documented in this encounter Additional Health [...] documented as of this encounter Care Teams Manpower Development Specialist Relationship Specialty Start Date End Date Lo Donato MD [address] [place] [address] PCP - General Testing Manager 01/24/25 documented as of this encounter
--- OUTSIDE RECORDS SUMMARY | 2025-02-24 11:29 | XMS_ITS | Encounter Summary ---
Author Organization [facility] Address [address] [place] [address] Care Team Providers Care Fender Mechanic Name Role Phone Lo Donato MD Primary Care Provider [phone] Encounter Details Date Type Department Care Team (Late st Contact Info) Description 04/29/2024 Lab Requisition [facility] - Main Lab [address] [facility] [place] [address] Anatoliy Solano MD [address] [place] [address] Unspecified dementia, unspecified severity, without behavioral disturbance, [...] Basic metabolic panel (05/02/2024 5:52 AM EST) Sodium 139 133 - 145 mmol/L LAB CHEMISTRY METHOD 05/02/2024 10:31 AM [facility] Potassium 4.1 3.5 - 5.5 mmol/L LAB CHEMISTRY METHOD 05/02/2024 10:31 AM [facility] Chloride 108 96 - 110 mmol/L LAB CHEMISTRY METHOD 05/02/2024 10:31 AM [facility] CO2 25 21 - 32 mmol/L LAB CHEMISTRY METHOD 05/02/2024 10:31 AM [facility] Anion Gap 6 3 - 11 LAB CHEMISTRY METHOD 05/02/2024 10:31 AM [facility] Glucose 194(H) 70 - 100 mg/dL LAB CHEMISTRY METHOD 05/02/2024 10:31 AM [facility] BUN 48(H) 5 - 25 mg/dL LAB CHEMISTRY METHOD 05/02/2024 10:31 AM [facility] Creatinine 1.68(H) 0.50 - 1.10 mg/dL LAB CHEMISTRY METHOD 05/02/2024 10:31 AM [facility] eGFR 32(L) >=60 mL/min/1. 73m2 LAB CHEMISTRY METHOD 05/02/2024 10:31 AM [facility] Comment:Calculation based on the Chronic Kidney Disease Epidemiology Collaboration (CKD-EPI) equation refit without adjustment for race. BUN/Creatinine Ratio 28.6 LAB CHEMISTRY METHOD 05/02/2024 10:31 AM [facility] Calcium 9.6 8.5 - 10.5 mg/dL LAB CHEMISTRY METHOD 05/02/2024 10:31 AM [facility] Blood Venous blood specimen / Unknown Venipuncture / Unknown 05/02/2024 5:52 AM EST 05/02/2024 9:57 AM EST us Anatoliy Solano MD LAB BLOOD ORDERABLES Final Result [facility] [address] [place] [address], * (ABNORMAL) Complete blood count (05/02/2024 5:52 AM EST) WBC 8.2 4.8 - 10.8 K/mcL LAB HEMETOLOGY METHOD 05/02/2024 10:13 AM EST [facility] RBC 3.60(L) 3.80 - 4.80 M/mcL LAB HEMETOLOGY METHOD 05/02/2024 10:13 AM [facility] Hemoglobin 10.1(L) 11.5 - 16.0 g/dL LAB HEMETOLOGY METHOD 05/02/2024 10:13 AM [facility] Hematocrit 32.8(L) 35.0 - 47.0 % LAB HEMETOLOGY METHOD 05/02/2024 10:13 AM EST [facility] MCV 92.4 79.0 - 98.0 FL LAB HEMETOLOGY METHOD 05/02/2024 10:13 AM [facility] MCH 28.5 27.0 - 32.0 pcg LAB HEMETOLOGY METHOD 05/02/2024 10:13 AM [facility] MCHC 30.8(L) 32.0 - 37.0 g/dL LAB HEMETOLOGY METHOD 05/02/2024 10:13 AM [facility] RDW 16.4(H) 11.0 - 15.0 % LAB HEMETOLOGY METHOD 05/02/2024 10:13 AM [facility] Platelets 254 130 - 400 K/mcL LAB HEMETOLOGY METHOD 05/02/2024 10:13 AM [facility] MPV 11.7(H) 7.0 - 11.0 FL LAB HEMETOLOGY METHOD 05/02/2024 10:13 AM EST [facility] NRBC 0.0 <1.0 % LAB HEMETOLOGY METHOD 05/02/2024 10:13 AM EST [facility] NRBC Absolute 0.00 <0.10 K/mcL LAB HEMETOLOGY METHOD 05/02/2024 10:13 AM EST [facility] Blood Venous blood specimen / Unknown Venipuncture / Unknown 05/02/2024 5:52 AM EST 05/02/2024 9:57 AM EST us Anatoliy Solano MD LAB BLOOD ORDERABLES Final Result [facility] [address] [place] [address], documented in this encounter Visit Diagnoses Diagnosis [...] documented as of this encounter Care Teams Fender Mechanic Relationship Specialty Start Date End Date Lo Donato MD [address] [place] [phone] PCP - General Wine Consultant 01/24/25 documented as of this encounter
--- OUTSIDE RECORDS SUMMARY | 2025-02-24 11:29 | XMS_ITS | Encounter Summary ---
Author Organization [facility] Address [address] [place] [address] Care Team Providers Care Ferryboat Operator Name Role Phone Lo Donato MD Primary Care Provider Encounter Details Date Type Department Care Team (Late st Contact Info) Description 05/14/2024 Lab Requisition [facility] - Main Lab [address] [facility] [place] [address] Anatoliy Solano MD [address] [place] [address] Unspecified dementia, unspecified severity, without behavioral disturbance, [...] mmol/L LAB CHEMISTRY METHOD 05/14/2024 10:56 AM [facility] Potassium 4.5 3.5 - 5.5 mmol/L LAB CHEMISTRY METHOD 05/14/2024 10:56 AM [facility] Chloride 104 96 - 110 mmol/L LAB CHEMISTRY METHOD 05/14/2024 10:56 AM [facility] CO2 25 21 - 32 mmol/L LAB CHEMISTRY METHOD 05/14/2024 10:56 AM [facility] Anion Gap 5 3 - 11 LAB CHEMISTRY METHOD 05/14/2024 10:56 AM [facility] Glucose 150(H) 70 - 100 mg/dL LAB CHEMISTRY METHOD 05/14/2024 10:56 AM [facility] BUN 42(H) 5 - 25 mg/dL LAB CHEMISTRY METHOD 05/14/2024 10:56 AM [facility] Creatinine 2.29(H) 0.50 - 1.10 mg/dL LAB CHEMISTRY METHOD 05/14/2024 10:56 AM [facility] eGFR 22(L) >=60 mL/min/1. 73m2 LAB CHEMISTRY METHOD 05/14/2024 10:56 AM [facility] Comment:Calculation based on the Chronic Kidney Disease Epidemiology Collaboration (CKD-EPI) equation refit without adjustment for race. BUN/Creatinine Ratio 18.3 LAB CHEMISTRY METHOD 05/14/2024 10:56 AM [facility] Calcium 9.1 8.5 - 10.5 mg/dL LAB CHEMISTRY METHOD 05/14/2024 10:56 AM [facility] AST (SGOT) 29 10 - 42 unit/L LAB CHEMISTRY METHOD 05/14/2024 10:56 AM [facility] ALT (SGPT) 21 10 - 60 unit/L LAB CHEMISTRY METHOD 05/14/2024 10:56 AM [facility] Alkaline Phosphatase 257(H) 42 - 121 unit/L LAB CHEMISTRY METHOD 05/14/2024 10:56 AM [facility] Total Protein 6.7 6.0 - 8.0 g/dL LAB CHEMISTRY METHOD 05/14/2024 10:56 AM [facility] Albumin 3.1(L) 3.2 - 5.0 g/dL LAB CHEMISTRY METHOD 05/14/2024 10:56 AM [facility] Total Bilirubin 0.3 0.0 - 1.4 mg/dL LAB CHEMISTRY METHOD 05/14/2024 10:56 AM [facility] Blood Venous blood specimen / Unknown Venipuncture / Unknown 05/14/2024 6:22 AM EST 05/14/2024 9:02 AM EST Anatoliy Solano MD LAB BLOOD ORDERABLES Final Result [facility] [address] [place] [address], * (ABNORMAL) Complete blood count (05/14/2024 6:22 AM EST) WBC 7.8 4.8 - 10.8 K/mcL LAB HEMETOLOGY METHOD 05/14/2024 9:45 AM [facility] RBC 3.50(L) 3.80 - 4.80 M/[facility] LAB HEMETOLOGY METHOD 05/14/2024 9:45 AM [facility] Hemoglobin 10.1(L) 11.5 - 16.0 g/dL LAB HEMETOLOGY METHOD 05/14/2024 9:45 AM [facility] Hematocrit 32.4(L) 35.0 - 47.0 % LAB HEMETOLOGY METHOD 05/14/2024 9:45 AM EST [facility] MCV 91.8 79.0 - 98.0 FL LAB HEMETOLOGY METHOD 05/14/2024 9:45 AM EST [facility] MCH 28.6 27.0 - 32.0 pcg LAB HEMETOLOGY METHOD 05/14/2024 9:45 AM [facility] MCHC 31.2(L) 32.0 - 37.0 g/dL LAB HEMETOLOGY METHOD 05/14/2024 9:45 AM EST [facility] RDW 15.7(H) 11.0 - 15.0 % LAB HEMETOLOGY METHOD 05/14/2024 9:45 AM EST [facility] Platelets 225 130 - 400 K/mcL LAB HEMETOLOGY METHOD 05/14/2024 9:45 AM [facility] MPV 11.8(H) 7.0 - 11.0 FL LAB HEMETOLOGY METHOD 05/14/2024 9:45 AM EST [facility] NRBC 0.0 <1.0 % LAB HEMETOLOGY METHOD 05/14/2024 9:45 AM [facility] NRBC Absolute 0.00 <0.10 K/mcL LAB HEMETOLOGY METHOD 05/14/2024 9:45 AM [facility] Blood Venous blood specimen / Unknown Venipuncture / Unknown 05/14/2024 6:22 AM EST 05/14/2024 9:02 AM EST us Anatoliy Solano MD LAB BLOOD ORDERABLES Final Result [facility] [address] [place] [address], documented in this encounter Visit Diagnoses Diagnosis [...] documented as of this encounter Care Teams Ferryboat Operator Relationship Specialty Start Date End Date Lo Donato MD [address] [place] [id number] PCP - General Auxiliary Engineer 01/24/25 documented as of this encounter
--- OUTSIDE RECORDS SUMMARY | 2025-02-24 11:30 | XMS_ITS | Encounter Summary ---
Author Organization [facility] Address [address] [place] [address] Care Team Providers Care Car Shifter Name Role Phone Lo Donato MD Primary Care Provider [phone] Encounter Details Date Type Department Care Team (Late st Contact Info) Description 06/03/2024 Lab Requisition [facility] - Main Lab [address] [facility] [place] [address] Anatoliy Solano MD [address] [place] [address] Unspecified dementia, unspecified severity, without behavioral disturbance, psychotic disturbance, mood disturbance, and anxiety (CMS/HCC V24, CMS/[facility] V28) Social History Tobacco Use Types Packs/Day [...] documented as of this encounter Care Teams Car Shifter Relationship Specialty Start Date End Date Lo Donato MD [address] [place] [phone] PCP - General Heating And Cooling Systems Engineer 01/24/25 documented as of this encounter
--- OUTSIDE RECORDS SUMMARY | 2025-02-24 11:30 | XMS_ITS | Encounter Summary ---
Author Organization [employer] Address [address] [facility] [address] [place] [address] Care Team Providers Care Division Service Manager Name Role Phone Lo Donato MD Primary Care Provider [phone] Encounter Details Date Type Department Care Team (Late st Contact Info) Description 02/09/2025 Orders Only [facility] [address] [place] [address] Provider, MD Airam Social History Tobacco Use Types Packs/Day Years [...] Description 03/02/2025 1:45 PM EDT Office Visit [facility] [address] [place] [address] [phone] Jennifer Campa MD [address] [place], [place] [phone] documented as of this encounter Procedures Procedure Name Priority Date/Time Associated Diagnosis Comments CT PELVIS WO CONTRAST Routine 02/07/2025 9:40 AM EDT documented in this encounter Results * CT Pelvis w/o Contrast (02/07/2025 9:40 AM EDT) Anatomical Region Laterality Modality Body, Pelvis Computed Tomogra phy us Historical Provider MD ACEVES CT PROCEDURES Final R esult documented in this encounter Visit Diagnoses Not on filedocumented in this encounter Additional Health Concerns Assessment Noted Time PHQ-9 Depression Total Score: 0 09/25/19 11:56 AM EDT documented as of this encounter Care Teams Division Service Manager Relationship Specialty Start Date End Date Lo Donato MD [address] [place] [address] [phone] PCP - General Family Medicine 04/25/22 [facility] 03/17/24 documented as of this encounter
--- OUTSIDE RECORDS SUMMARY | 2025-02-24 11:30 | XMS_ITS | Encounter Summary ---
Author Organization [employer] Address [address] [facility] [address] [place] [address] Care Team Providers Care Vest Finisher Name Role Phone Lo Donato MD Primary Care Provider [phone] Reason for Visit * Reason Onset Date Comments Appointment Request 02/21/2025 Encounter Details Date Type Department Care Team (Late st Contact Info) Description 02/21/2025 Telephone [facility] [address] [place], [place] [phone] Mona Cerda PharmD [address] [place] [address] Appointment Request Social History Tobacco Use Types Packs/Day Years [...] encounter Miscellaneous Notes * Telephone Encounter - Ruth Bajwa RN - 02/21/2025 12:02 PM EDT TC placed to daughter at [phone] however phone rang once then went straight to x 2 attempts. Left message requesting call back to Red Team RN upon receipt of message. Daughter to f/up prn * Telephone Encounter - Mona Cerda PharmD - 02/21/2025 10:52 AM EDT Patient's daughter reports unable to bring patient to appointment schedule for 02/23/25 due to conflict with another appointment. Requested to reschedule, please follow up with patient daughter. documented in this encounter Plan of Treatment Upcoming Encounters Date Type Department Care Team (Late st Contact Info) Description 03/02/2025 1:45 PM EDT Office Visit [facility] [address] [place], [place] [phone] Jennifer Campa MD [address] [place], [place] [phone] documented as of this encounter Visit Diagnoses Not on filedocumented in this encounter Additional Health Concerns Assessment Noted Time PHQ-9 Depression Total Score: 0 09/25/19 24 11:56 AM EDT documented as of this encounter Care Teams Vest Finisher Relationship Specialty Start Date End Date Lo Donato MD [address] [place] [address] PCP - General Family Medicine 04/25/22 [facility] 03/17/24 documented as of this encounter
--- OUTSIDE RECORDS SUMMARY | 2025-02-24 11:30 | XMS_ITS | Encounter Summary ---
Author Organization [employer] Address [address] [facility] 7[address] [place] [address] Care Team Providers Care Grain Cleaner And Transfer Operator Name Role Phone Lo Donato MD Primary Care Provider [phone] Encounter Details Date Type Department Care Team (Late st Contact Info) Description 02/25/2023 Abstract [facility] [address] [place], [place] [phone] Lo Donato MD [address] [place], [place] [phone] Social History Tobacco Use Types Packs/Day Years [...] Description 03/02/2025 1:45 PM EDT Office Visit [facility] [address] [place], [place] [phone] Jennifer Campa MD [address] [place] [address] documented as of this encounter Visit Diagnoses Not on filedocumented in this encounter Additional Health Concerns Assessment Noted Time PHQ-9 Depression Total Score: 11 01/21/ 023 10:00 AM EDT documented as of this encounter Care Teams Grain Cleaner And Transfer Operator Relationship Specialty Start Date End Date Lo Donato MD [address] [place] [address] [phone] PCP - General Family Medicine 04/25/22 [facility] 03/17/24 documented as of this encounter
--- OUTSIDE RECORDS SUMMARY | 2025-02-24 11:30 | XMS_ITS | Clinical Summary ---
Author Organization [address] [facility] Address [address] [place] [address] Phone Care Team Providers Care Cellulose Insulation Helper Name Role Phone Lo Donato MD Primary Care Provider [phone] Allergies No known active allergies Medications aspirin 81 mg EC tablet Take 1 tablet (81 mg total) by mouth 1 (one) time each day. Active pantoprazole (PROTONIX) 40 mg EC tablet Take 1 tablet (40 mg total) by mouth 1 (one) time each day before breakfast. Active Januvia 25 mg tablet Take 1 tablet (25 mg total) by mouth 1 (one) time each day. Active metoprolol succinate (TOPROL-XL) 25 mg 24 hr tablet Take 1 tablet (25 mg total) by mouth 1 (one) time each day. Do not crush or chew. 30 each 12/29/19 25 Active traZODone (DESYREL) 50 mg tablet Take 1 tablet (50 mg total) by mouth at bedtime. 30 each 02/04/20 25 025 Active Additional Information Patient taking differently: 25 mgoral2 times daily, Reported on 02/08/2025 tiZANidine (ZANAFLEX) 2 mg tablet Take 1 tablet (2 mg total) by mouth 3 (three) times a day if needed for muscle spasms. Active acetaminophen (TYLENOL) 325 mg tablet Take 2 tablets (650 mg total) by mouth every 4 (four) hours if needed for mild pain, fever - temperature GREATER than 38 C (100.4 F) or headaches for up to 10 days. 30 tablet 10/15/20 25 10/25/2 025 Active thiamine 100 mg tablet Take 1 tablet (100 mg total) by mouth 1 (one) time each day. 30 tablet 02/16/20 Active ferrous sulfate 324 mg (65 mg elemental iron) EC tablet Take 1 tablet (324 mg total) by mouth 1 (one) time each day with breakfast. Do not crush, chew, or split. 30 each 02/16/20 Active Lactobacillus acidoph-L.bul gar (FLORANEX) 1 million cell tablet Take 1 tablet by mouth 2 (two) times a day with meals for 10 days. 20 tablet 02/16/20 Active Lactobacillus acidoph-L.bul gar (FLORANEX) 1 million cell tablet Take 1 tablet by mouth 2 (two) times a day with meals for 10 days. 20 tablet 02/04/20 Discontinued polyethylene glycol (MIRALAX) 17 gram packet Take 17 g by mouth 1 (one) time each day for 14 days. 238 g 02/05/20 tamsulosin (FLOMAX) 0.4 mg 24 hr capsule Take 1 capsule (0.4 mg total) by mouth 1 (one) time each day for 10 days. Capsules should be taken 30 minutes following the same meal each day. 10 each 02/05/20 Discontinued(St op Taking at Discharge) vancomycin 500 mg in sodium chloride 0.9 % 100 mL IVPB Infuse 500 mg into a venous catheter 1 (one) time each day at the same time for 6 days. 02/05/20 Discontinued(St op Taking at Discharge) vancomycin 25 mg/mL oral liquid Take 5 mL (125 mg total) by mouth every 6 (six) hours for 38 doses. 1 each 02/04/20 Discontinued(St op Taking at Discharge) Active Problems Problem Noted Date Diagnosed Date Fall, initial encounter 02/10/2025 Right femoral fracture ([facility] V24, CMS/[facility] V28 ) 02/08/2025 Malnutrition (CMS/[facility] V24) 01/26/2025 Moderate malnutrition (CMS/[facility] V24) 01/26/2025 Pyelonephritis 01/25/2025 C. difficile colitis 01/02/2025 NSTEMI (non-ST elevated myoc ardial infarction) (CMS/HCC V24, CMS/HCC V28) 12/24/2024 Abdominal pain 12/24/2024 Proctocolitis 12/09/2024 Colitis 12/08/2024 Infection due to ESBL-producing Klebsiella pneum oniae 11/20/2024 UTI (urinary tract infection) 11/15/2024 Laceration of forehead, initial encounter 2024 Encounters Date Type Department Care Team Description 02/07/2025 6:38 PM EDT - 02/15/2025 4:52 PM EDT Hospital Encounter [facility] [address] [place] [phone] Summer Feng MD Bukalo, Nermina, MD Santoyo-Pacheco, Omar D, MD Grubbs, MD Merritt Palomino, MD Joyce Contreras, initial encounter (Primary Dx); Left hip pain; Moderate protein-calorie malnutrition (CMS/[facility] V24) Discharge Disposition: Home-Health Care [facility] [place] 01/24/2025 12:22 PM EDT - 02/03/2025 3:00 PM EDT Hospital Encounter [facility] Surgical [facility] [address] [place] [phone] Danis Alexander MD Damri, MD Joey Rice Nermina, MD Santoyo-Pacheco, Omar D, MD Surendran, Anupama, MD Seralathan, Manikandan, MD Pyelonephritis (Primary Dx); Abdominal pain, generalized; Dementia, unspecified dementia severity, unspecified dementia type, unspecified whether behavioral, psychotic, or mood disturbance or anxiety (CMS/HCC V24, CMS/[facility] V28); Gram-positive bacteremia; UTI (urinary tract infection) Discharge Disposition: Home-Health Care [facility] [place] 01/02/2025 5:12 PM EDT - 01/04/2025 7:03 PM EDT Hospital Encounter [facility] [address] [place] [phone] Farhat Epps MD Notash, Mark, MD Jones, Christopher, MD Japaridze, Tia, MD Acute lower urinary tract infection (Primary Dx); C. difficile colitis; Dehydration; Chronic renal impairment, unspecified CKD stage; Transaminitis Discharge Disposition: Home-Health Care Svc 12/23/2024 9:07 PM EDT - 12/27/2024 6:08 PM EDT Hospital Encounter [facility] [address] [place] [phone] Lucas Gamboa MD Jones, Christopher, MD Kela, Kashyap Devendrabhai, MD Zipagan, James T, MD Impaired mobility and ADLs (Primary Dx); Abdominal pain, unspecified abdominal location; NSTEMI (non-ST elevated myocardial infarction) [place] [place] [place] Cystitis; Proctitis; Severe sepsis ([facility] [place] [place] Discharge Disposition: Home-Health Care Svc 12/23/2024 3:57 PM EDT - 12/23/2024 8:51 PM EDT Emergency [facility] Emergency [address] [place] [phone] Serge Garzon MD Pain in both feet (Primary Dx) Discharge Disposition: Home or Self Care 12/08/2024 10:49 AM EDT - 12/10/2024 3:00 PM EDT Hospital Encounter [facility] [address] [place] [phone] Sandeep Buchanan DO Alam, Aroosa, MD Seralathan, Manikandan, MD Proctocolitis (Primary Dx); C. difficile colitis Discharge Disposition: Home-Health Care [facility] [place] Last 3 Months Surgical History Surgery Date Site/Laterality Comments ESOPHAGOGASTRODUODENOSCOPY CHOLECYSTECTOMY COLONOSCOPY Medical History Medical History Date Comments Dementia ([facility] [place] [facility] [place]28) CAD (coronary artery disease) Type 2 diabetes mellitus ([facility] [place], [facility] V 28) UTI due to extended-spectrum beta lactamase (ESBL) producing Escherichia coli Liver cirrhosis ([facility] [place], [facility] [place]28) C. difficile colitis CKD (chronic kidney disease), stage III ([facility] [place] [facility] [place]28) HTN (hypertension) Social History Tobacco Use Types Packs/Day Years Used Date Smoking Tobacco: Never Smokeless Tobacco: Never Food Risk Answer Date Recorded Within the past 12 months we worried whether our food would run out before we got money to buy more. Not asked 02/09/2025 Within the past 12 months th e food we bought just didn't last and we didn't have money to get more. Not asked 02/09/2025 Interpersonal Safety Answer Date Record ed Physical Abuse Unrecognized value 02/08/2025 Verbal Abuse Unrecognized value 02/08/2025 Comments Unknown Sex and Gender Information Value Date Recorded Sex Assigned at Not on file Legal Sex Female 4:34 AM EST Gender Identity Not on file Sexual Orientation Not on file Obstetrics History Last Filed Vital Signs Vital Sign Reading Time Taken Comments Blood Pressure 149/59 02/15/2025 2:23 PM EDT Pulse 52 02/15/2025 2:23 PM EDT Temperature 36.7 C (98.1 F) 02/15/2025 2:23 PM EDT Respiratory Rate 18 02/15/2025 2:23 PM EDT Oxygen Saturation 99% 02/15/2025 2:23 PM EDT Inhaled Oxygen Concentration - - Weight 43.5 kg (96 lb) 02/07/2025 6:55 PM EDT Height 165.1 cm (5' 5 ) 02/07/2025 6:55 PM EDT Body Mass Index 15.98 02/07/2025 6:55 PM EDT Plan of Treatment Health Maintenance Due Date Last Done Comments Diabetes: Annual Foot Exam 1960 Diabetes: Annual Retina Eye Exam 1960 Hepatitis A Vaccines (1 of 2 - Risk 2-dose series) 1969 RSV Immunization Adult Patients (1 - Risk 50-74 years 1-dose series) 2000 Hepatitis B Vaccines (1 of 3 - Risk 3-dose series) 2010 Breast Cancer Screening 01/02/2020 01/01/2018 Zoster Vaccines (2 of 2) 03/12/2022 01/15/2022 Hepatitis C Screening 04/06/2022 Medicare Annual Wellness Visit 04/06/2022 Osteoporosis Screening (Bone Density Screening) 04/06/2022 Diabetes: Annual Urine Albumin-Creatinine Ratio (uACR) 03/08/2024 Depression Screening 05/04/2024 COVID-19 Vaccine ( season) 2025 07/09/2021, 10/15/2020 Influenza Vaccine (#1) 2025 Diabetes: Blood Sugar Control Test (HGBA1C) 07/24/2025 01/24/2025, 07/01/2024, 04/29/2024, Additional history exists Colorectal Cancer Screening: Stool Based Tests (FOBT/FIT) 01/28/2026 01/28/2025 Social Influencers of Health Screening 02/09/2026 02/09/2025 Diabetes: Annual GFR (Glomerular Filtration Rate) 02/15/2026 02/15/2025, 02/14/2025, 02/13/2025, Additional history exists Falls Risk Assessment 02/15/2026 02/15/2025 Hypertension/CHF/CAD Annual BMP Blood Test 02/15/2026 02/15/2025, 02/14/2025, 02/13/2025, Additional history exists Cholesterol Screening (Lipid Panel) 01/15/2027 01/15/2022 DTaP,Tdap,and Td Vaccines (2 - Td or Tdap) 03/21/2028 03/21/2018 Pneumococcal Vaccine: 50+ Years Completed 04/07/2024, 01/15/2022, [...] Procedure Name Priority Date/Time Associated Diagnosis Comments ECG ANNOTATED 02/16/2025 POCT GLUCOSE BLOOD Routine 02/15/2025 4: 35 PM EDT POCT GLUCOSE BLOOD Routine 02/15/2025 11 :00 AM EDT POCT GLUCOSE BLOOD Routine 02/15/2025 7: 44 AM EDT HEMOGLOBIN AND HEMATOCRIT Routine 02/15/2025 6:19 AM EDT BASIC METABOLIC PANEL Routine 02/15/2025 6:19 AM EDT COMPLETE BLOOD COUNT Timed 02/15/2025 12:12 AM EDT POCT GLUCOSE BLOOD Routine 02/14/2025 7: 48 PM EDT US RETROPERITONEAL COMPLETE Routine 02/14/2025 4:26 PM EDT POCT GLUCOSE BLOOD Routine 02/14/2025 4: 22 PM EDT POCT GLUCOSE BLOOD Routine 02/14/2025 11 :12 AM EDT POCT GLUCOSE BLOOD Routine 02/14/2025 8: 08 AM EDT VANCOMYCIN, RANDOM Add-On 02/14/2025 7: 43 AM EDT BASIC METABOLIC PANEL STAT Add-on 02/14/2025 7:43 AM EDT VITAMIN B12 Routine 02/14/2025 7:43 AM EDT IRON AND TIBC Routine 02/14/2025 7:43 AM EDT C-REACTIVE PROTEIN Routine 02/14/2025 7: 43 AM EDT PROTHROMBIN TIME WITH INR Routine 02/14/2025 7:43 AM EDT HEMOGLOBIN AND HEMATOCRIT Routine 02/14/2025 7:43 AM EDT POCT GLUCOSE BLOOD Routine 02/13/2025 7: 56 PM EDT BASIC METABOLIC PANEL STAT 02/13/2025 5:05 PM EDT CULTURE BLOOD STAT 02/13/2025 4:37 PM EDT POCT GLUCOSE BLOOD Routine 02/13/2025 4: 18 PM EDT CULTURE BLOOD STAT 02/13/2025 1:16 PM EDT POCT GLUCOSE BLOOD Routine 02/13/2025 11 :20 AM EDT POCT GLUCOSE BLOOD Routine 02/13/2025 7: 58 AM EDT CBC WITH AUTO DIFFERENTIAL Routine 02/13/2025 5:25 AM EDT CBC AND DIFFERENTIAL Routine 02/13/2025 5:25 AM EDT RENAL FUNCTION PANEL Routine 02/13/2025 5:25 AM EDT POCT GLUCOSE BLOOD Routine 02/12/2025 7: 47 PM EDT POCT GLUCOSE BLOOD Routine 02/12/2025 4: 21 PM EDT POCT GLUCOSE BLOOD Routine 02/12/2025 8: 23 AM EDT CBC WITH AUTO DIFFERENTIAL Routine 02/12/2025 6:09 AM EDT PHOSPHORUS Routine 02/12/2025 6:09 AM EDT MAGNESIUM Routine 02/12/2025 6:09 AM EDT CBC AND DIFFERENTIAL Routine 02/12/2025 6:09 AM EDT BASIC METABOLIC PANEL Routine 02/12/2025 6:09 AM EDT POCT GLUCOSE BLOOD Routine 02/11/2025 4: 35 PM EDT CULTURE URINE Routine 02/11/2025 2:33 PM EDT URINALYSIS WITH REFLEX MICROSCOPIC Routine 02/11/2025 2:32 PM EDT URINALYSIS WITH REFLEX MICROSCOPIC Routine 02/11/2025 2:32 PM EDT POCT GLUCOSE BLOOD Routine 02/11/2025 11 :49 AM EDT POCT GLUCOSE BLOOD Routine 02/11/2025 8: 41 AM EDT CREATINE KINASE Add-On 02/11/2025 5:50 AM EDT CBC WITH AUTO DIFFERENTIAL Routine 02/11/2025 5:50 AM EDT PHOSPHORUS Routine 02/11/2025 5:50 AM EDT MAGNESIUM Routine 02/11/2025 5:50 AM EDT CBC AND DIFFERENTIAL Routine 02/11/2025 5:50 AM EDT BASIC METABOLIC PANEL Routine 02/11/2025 5:50 AM EDT POCT GLUCOSE BLOOD Routine 02/10/2025 7: 42 PM EDT POCT GLUCOSE BLOOD Routine 02/10/2025 5: 04 PM EDT EOSINOPHILS URINE Routine 02/10/2025 11: 16 AM EDT SODIUM, URINE, RANDOM Routine 02/10/2025 11:16 AM EDT CREATININE, URINE, RANDOM Routine 02/10/2025 11:16 AM EDT UREA NITROGEN, URINE Routine 02/10/2025 11:16 AM EDT POCT GLUCOSE BLOOD Routine 02/10/2025 8: 12 AM EDT CBC WITH AUTO DIFFERENTIAL Routine 02/10/2025 5:45 AM EDT PHOSPHORUS Routine 02/10/2025 5:45 AM EDT MAGNESIUM Routine 02/10/2025 5:45 AM EDT CBC AND DIFFERENTIAL Routine 02/10/2025 5:45 AM EDT BASIC METABOLIC PANEL Routine 02/10/2025 5:45 AM EDT VANCOMYCIN, RANDOM Routine 02/10/2025 5: 45 AM EDT POCT GLUCOSE BLOOD Routine 02/09/2025 8: 18 PM EDT POCT GLUCOSE BLOOD Routine 02/09/2025 4: 41 PM EDT POCT GLUCOSE BLOOD Routine 02/09/2025 11 :52 AM EDT POCT GLUCOSE BLOOD Routine 02/09/2025 9: 03 AM EDT VANCOMYCIN, RANDOM Add-On 02/09/2025 6: 17 AM EDT CBC WITH AUTO DIFFERENTIAL Routine 02/09/2025 6:17 AM EDT MAGNESIUM Routine 02/09/2025 6:17 AM EDT BASIC METABOLIC PANEL Routine 02/09/2025 6:17 AM EDT CBC AND DIFFERENTIAL Routine 02/09/2025 6:17 AM EDT POCT GLUCOSE BLOOD Routine 02/08/2025 9: 26 PM EDT POCT GLUCOSE BLOOD Routine 02/08/2025 2: [address] PELVIS WO CONTRAST STAT 02/07/2025 10:07 PM EDT XR PELVIS 1-2 VIEWS STAT 02/07/2025 9 :38 PM EDT CBC WITH AUTO DIFFERENTIAL STAT 02/07/2025 9:13 PM EDT CBC AND DIFFERENTIAL STAT 02/07/2025 9:13 PM EDT COMPREHENSIVE METABOLIC PANEL STAT 02/07/2025 9:13 PM EDT ECG 12-LEAD STAT 02/07/2025 9:07 PM EDT POCT GLUCOSE BLOOD Routine 02/03/2025 11 :01 AM EDT POCT GLUCOSE BLOOD Routine 02/03/2025 9: 32 AM EDT POCT GLUCOSE BLOOD Routine 02/03/2025 7: 33 AM EDT POCT GLUCOSE BLOOD Routine 02/02/2025 7: 52 PM EDT POCT GLUCOSE BLOOD Routine 02/02/2025 4: 05 PM EDT INSERT PICC LINE Routine 02/02/2025 3:30 PM EDT POCT GLUCOSE BLOOD Routine 02/02/2025 12 :08 PM EDT POCT GLUCOSE BLOOD Routine 02/02/2025 7: 38 AM EDT CBC WITH AUTO DIFFERENTIAL Routine 02/02/2025 5:36 AM EDT VANCOMYCIN, RANDOM Routine 02/02/2025 5: 36 AM EDT CBC AND DIFFERENTIAL Routine 02/02/2025 5:36 AM EDT BASIC METABOLIC PANEL Routine 02/02/2025 5:36 AM EDT POCT GLUCOSE BLOOD Routine 02/01/2025 7: 34 PM EDT TRANSFUSE RED BLOOD CELLS Routine 02/01/2025 1:07 PM EDT POCT GLUCOSE BLOOD Routine 02/01/2025 11 :57 AM EDT PREPARE RBC Routine 02/01/2025 11:31 AM EDT POCT GLUCOSE BLOOD Routine 02/01/2025 7: 41 AM EDT CBC WITH AUTO DIFFERENTIAL Routine 02/01/2025 5:50 AM EDT CBC AND DIFFERENTIAL Routine 02/01/2025 5:50 AM EDT BASIC METABOLIC PANEL Routine 02/01/2025 5:50 AM EDT VANCOMYCIN, RANDOM Routine 02/01/2025 5: 50 AM EDT POCT GLUCOSE BLOOD Routine 01/31/2025 7: 35 PM EDT POCT GLUCOSE BLOOD Routine 01/31/2025 4: 27 PM EDT POCT GLUCOSE BLOOD Routine 01/31/2025 2: 00 PM EDT NM TUMOR LOCALIZATION WHOLE BODY 1 DAY Routine 01/31/2025 12:44 PM EDT VANCOMYCIN, RANDOM Routine 01/31/2025 6: 25 AM EDT CBC WITH AUTO DIFFERENTIAL Routine 01/31/2025 6:22 AM EDT PHOSPHORUS Routine 01/31/2025 6:22 AM EDT MAGNESIUM Routine 01/31/2025 6:22 AM EDT CBC AND DIFFERENTIAL Routine 01/31/2025 6:22 AM EDT BASIC METABOLIC PANEL Routine 01/31/2025 6:22 AM EDT POCT GLUCOSE BLOOD Routine 01/30/2025 7: 27 PM EDT VANCOMYCIN, RANDOM Routine 01/30/2025 5: 16 PM EDT POCT GLUCOSE BLOOD Routine 01/30/2025 3: 50 PM EDT POCT GLUCOSE BLOOD Routine 01/30/2025 11 :53 AM EDT POTASSIUM, URINE, RANDOM Routine 01/30/2025 11:08 AM EDT OSMOLALITY, URINE Routine 01/30/2025 11: 08 AM EDT SODIUM, URINE, RANDOM Routine 01/30/2025 11:08 AM EDT POCT GLUCOSE BLOOD Routine 01/30/2025 8: 13 AM EDT CBC WITH AUTO DIFFERENTIAL Routine 01/30/2025 4:45 AM EDT PHOSPHORUS Routine 01/30/2025 4:45 AM EDT MAGNESIUM Routine 01/30/2025 4:45 AM EDT CBC AND DIFFERENTIAL Routine 01/30/2025 4:45 AM EDT BASIC METABOLIC PANEL Routine 01/30/2025 4:45 AM EDT VANCOMYCIN, RANDOM Routine 01/30/2025 4: 45 AM EDT POCT GLUCOSE BLOOD Routine 01/29/2025 8: 16 PM EDT POTASSIUM Routine 01/29/2025 5:01 PM EDT POCT GLUCOSE BLOOD Routine 01/29/2025 3: 13 PM EDT POCT GLUCOSE BLOOD Routine 01/29/2025 2: 03 PM EDT POCT GLUCOSE BLOOD Routine 01/29/2025 1: 09 PM EDT POCT GLUCOSE BLOOD Routine 01/29/2025 11 :02 AM EDT ECG 12-LEAD Routine 01/29/2025 10:57 AM EDT OSMOLALITY Add-On 01/29/2025 9:08 AM EDT CREATINE KINASE Add-On 01/29/2025 9:08 AM EDT LACTATE DEHYDROGENASE Add-On 01/29/2025 9:08 AM EDT HAPTOGLOBIN Add-On 01/29/2025 9:08 AM EDT POTASSIUM Add-On 01/29/2025 9:08 AM EDT VANCOMYCIN, TROUGH Timed 01/29/2025 9: 08 AM EDT CBC WITH AUTO DIFFERENTIAL Routine 01/29/2025 5:45 AM EDT TYPE AND SCREEN Routine 01/29/2025 5:45 AM EDT PHOSPHORUS Routine 01/29/2025 5:45 AM EDT MAGNESIUM Routine 01/29/2025 5:45 AM EDT CBC AND DIFFERENTIAL Routine 01/29/2025 5:45 AM EDT BASIC METABOLIC PANEL Routine 01/29/2025 5:45 AM EDT POCT GLUCOSE BLOOD Routine 01/28/2025 7: 43 PM EDT POCT GLUCOSE BLOOD Routine 01/28/2025 4: 24 PM EDT OCCULT BLOOD STOOL, GUAIAC Routine 01/28/2025 3:42 PM EDT POCT GLUCOSE BLOOD Routine 01/28/2025 11 :05 AM EDT POCT GLUCOSE BLOOD Routine 01/28/2025 7: 35 AM EDT CBC WITH AUTO DIFFERENTIAL Routine 01/28/2025 5:46 AM EDT PROTHROMBIN TIME WITH INR Routine 01/28/2025 5:46 AM EDT HEPATIC FUNCTION PANEL Routine 5:46 AM EDT PHOSPHORUS Routine 01/28/2025 5:46 AM EDT MAGNESIUM Routine 01/28/2025 5:46 AM EDT CBC AND DIFFERENTIAL Routine 01/28/2025 5:46 AM EDT BASIC METABOLIC PANEL Routine 01/28/2025 5:46 AM EDT VANCOMYCIN, RANDOM Routine 01/27/2025 8: 46 PM EDT POCT GLUCOSE BLOOD Routine 01/27/2025 8: 24 PM EDT CULTURE BLOOD Routine 01/27/2025 12:50 PM EDT CULTURE BLOOD STAT 01/27/2025 12:40 PM EDT POCT GLUCOSE BLOOD Routine 01/27/2025 11 :36 AM EDT CBC WITH AUTO DIFFERENTIAL Routine 01/27/2025 9:24 AM EDT PHOSPHORUS Routine 01/27/2025 9:24 AM EDT MAGNESIUM Routine 01/27/2025 9:24 AM EDT CBC AND DIFFERENTIAL Routine 01/27/2025 9:24 AM EDT BASIC METABOLIC PANEL Routine 01/27/2025 9:24 AM EDT VANCOMYCIN, TROUGH Timed 01/27/2025 9: 24 AM EDT POCT GLUCOSE BLOOD Routine 01/27/2025 9: 04 AM EDT POCT GLUCOSE BLOOD Routine 01/26/2025 5: 15 PM EDT CULTURE BLOOD Routine 01/26/2025 3:29 PM EDT POCT GLUCOSE BLOOD Routine 01/26/2025 12 :18 PM EDT INSERT MIDLINE Routine 01/26/2025 12:17 PM EDT CBC WITH AUTO DIFFERENTIAL Routine 01/26/2025 12:01 PM EDT PHOSPHORUS Routine 01/26/2025 12:01 PM EDT MAGNESIUM Routine 01/26/2025 12:01 PM EDT CBC AND DIFFERENTIAL Routine 01/26/2025 12:01 PM EDT BASIC METABOLIC PANEL Routine 01/26/2025 12:01 PM EDT CULTURE BLOOD Routine 01/26/2025 12:01 PM EDT TRANSTHORACIC ECHOCARDIOGRAM (TTE) COMPLETE Routine 01/26/2025 8:27 AM EDT Gram-positive bacteremia CT CHEST WO CONTRAST STAT 01/25/2025 8:37 PM EDT POCT GLUCOSE BLOOD Routine 01/25/2025 4: 34 PM EDT POCT GLUCOSE BLOOD Routine 01/25/2025 11 :14 AM EDT POCT GLUCOSE BLOOD Routine 01/25/2025 7: 41 AM EDT COMPLETE BLOOD COUNT Routine 01/25/2025 4:23 AM EDT BASIC METABOLIC PANEL Routine 01/25/2025 4:23 AM EDT GENTAMICIN LEVEL, RANDOM Routine 01/25/2025 4:23 AM EDT LT BLUE - NA CITRATE Routine 01/24/2025 11:58 PM EDT EXTRA TUBES Routine 01/24/2025 11:58 PM EDT LACTATE Routine 01/24/2025 11:58 PM EDT POCT GLUCOSE BLOOD Routine 01/24/2025 8: 28 PM EDT CULTURE URINE STAT 01/24/2025 6:56 PM EDT MATTHEW URINE CULTURE TUBE Routine 01/25/20 5:50 PM EDT EXTRA TUBES Routine 01/24/2025 5:50 PM EDT URINALYSIS WITH REFLEX MICROSCOPIC STAT 01/24/2025 5:50 PM EDT URINALYSIS WITH REFLEX MICROSCOPIC STAT 01/24/2025 5:[address] ABDOMEN PELVIS W CONTRAST STAT 01/24/2025 2:39 PM EDT BLOOD CULTURE PATHOGENS BY PCR Routine 01/24/2025 1:36 PM EDT NSIC-MND0-NTA, RSV, FLU A AND B QUALITATIVE RT-PCR, INTERNAL LAB STAT 01/24/2025 1:36 PM EDT CULTURE BLOOD STAT 01/24/2025 1:36 PM EDT TROPONIN I HIGH SENSITIVITY STAT 01/24/2025 1:30 PM EDT AMMONIA STAT 01/24/2025 1:30 PM EDT CBC WITH AUTO DIFFERENTIAL STAT 01/24/2025 1:30 PM EDT CBC AND DIFFERENTIAL STAT 01/24/2025 1:30 PM EDT BASIC METABOLIC PANEL STAT 01/24/2025 1:30 PM EDT LACTATE, WITH REFLEX STAT 01/24/2025 1:30 PM EDT BLOOD CULTURE PATHOGENS BY PCR Routine 01/24/2025 1:30 PM EDT CULTURE BLOOD STAT 01/24/2025 1:30 PM EDT POCT GLUCOSE BLOOD Routine 01/04/2025 4: 07 PM EDT POCT GLUCOSE BLOOD Routine 01/04/2025 11 :09 AM EDT POCT GLUCOSE BLOOD Routine 01/04/2025 8: 33 AM EDT CBC WITH AUTO DIFFERENTIAL STAT 01/04/2025 8:24 AM EDT CBC AND DIFFERENTIAL STAT 01/04/2025 8:24 AM EDT MAGNESIUM STAT 01/04/2025 8:24 AM EDT BASIC METABOLIC PANEL STAT 01/04/2025 8:24 AM EDT POCT GLUCOSE BLOOD Routine 01/03/2025 9: 00 PM EDT POCT GLUCOSE BLOOD Routine 01/03/2025 4: 12 PM EDT POCT GLUCOSE BLOOD Routine 01/03/2025 11 :13 AM EDT POCT GLUCOSE BLOOD Routine 01/03/2025 7: 55 AM EDT PHOSPHORUS Add-On 01/03/2025 6:32 AM EDT VITAMIN D 25 HYDROXY Add-On 01/03/2025 6:32 AM EDT CREATINE KINASE STAT Add-on 01/03/2025 6:32 AM EDT HEPATIC FUNCTION PANEL STAT Add-on 6:32 AM EDT LT BLUE - NA CITRATE Routine 01/03/2025 6:32 AM EDT EXTRA TUBES Routine 01/03/2025 6:32 AM EDT CBC WITH AUTO DIFFERENTIAL Routine 01/03/2025 6:32 AM EDT CBC AND DIFFERENTIAL Routine 01/03/2025 6:32 AM EDT BASIC METABOLIC PANEL Routine 01/03/2025 6:32 AM EDT POCT GLUCOSE BLOOD Routine 01/02/2025 11 :21 PM EDT LAVENDER - EDTA Routine 01/02/2025 8:49 PM EDT EXTRA TUBES Routine 01/02/2025 8:49 PM EDT CULTURE BLOOD STAT 01/02/2025 8:49 PM EDT CULTURE BLOOD STAT 01/02/2025 8:49 PM EDT LACTATE, WITH REFLEX STAT 01/02/2025 8:14 PM EDT AMMONIA STAT 01/02/2025 8:[address] ABDOMEN PELVIS WO CONTRAST STAT 01/02/2025 8:06 PM EDT LAVENDER - EDTA Routine 01/02/2025 7:26 PM EDT EXTRA TUBES Routine 01/02/2025 7:26 PM EDT URINALYSIS WITH REFLEX MICROSCOPIC STAT 01/02/2025 7:05 PM EDT URINALYSIS WITH REFLEX MICROSCOPIC STAT 01/02/2025 7:05 PM EDT GASTROINTESTINAL PATHOGENS BY PCR STAT 01/02/2025 7:05 PM EDT CLOSTRIDIUM DIFFICILE TOXIN STAT 01/02/2025 7:05 PM EDT TROPONIN I HIGH SENSITIVITY STAT 01/02/2025 6:32 PM EDT RESPIRATORY VIRUS PANEL MOLECULAR STUDY STAT 01/02/2025 6:32 PM EDT MAGNESIUM STAT Add-on 01/02/2025 6:17 PM EDT CBC WITH AUTO DIFFERENTIAL STAT 01/02/2025 6:17 PM EDT CBC AND DIFFERENTIAL STAT 01/02/2025 6:17 PM EDT LIPASE STAT 01/02/2025 6:17 PM EDT COMPREHENSIVE METABOLIC PANEL STAT 01/02/2025 6:17 PM EDT POCT GLUCOSE BLOOD Routine 12/27/2024 4: 04 PM EDT POCT GLUCOSE BLOOD Routine 12/27/2024 11 :15 AM EDT POCT GLUCOSE BLOOD Routine 12/27/2024 7: 59 AM EDT MAGNESIUM Routine 12/27/2024 6:39 AM EDT BASIC METABOLIC PANEL Routine 12/27/2024 6:39 AM EDT HEPARIN AND LOW MOLECULAR WEIGHT ANTI XA LEVEL Routine 12/27/2024 5:31 AM EDT COMPLETE BLOOD COUNT Routine 12/27/2024 5:31 AM EDT POCT GLUCOSE BLOOD Routine 12/26/2024 8: 33 PM EDT POCT GLUCOSE BLOOD Routine 12/26/2024 4: 09 PM EDT POCT GLUCOSE BLOOD Routine 12/26/2024 11 :58 AM EDT POCT GLUCOSE BLOOD Routine 12/26/2024 7: 57 AM EDT HEPARIN AND LOW MOLECULAR WEIGHT ANTI XA LEVEL Timed 12/26/2024 5:55 AM EDT COMPLETE BLOOD COUNT Routine 12/26/2024 5:55 AM EDT MAGNESIUM Routine 12/26/2024 5:55 AM EDT BASIC METABOLIC PANEL Routine 12/26/2024 5:55 AM EDT PHOSPHORUS Routine 12/26/2024 5:55 AM EDT ECG ANNOTATED 12/26/2024 HEPARIN AND LOW MOLECULAR WEIGHT ANTI XA LEVEL Timed 12/25/2024 11:16 PM EDT POCT GLUCOSE BLOOD Routine 12/25/2024 7: 45 PM EDT POCT GLUCOSE BLOOD Routine 12/25/2024 3: 24 PM EDT HEPARIN AND LOW MOLECULAR WEIGHT ANTI XA LEVEL Timed 12/25/2024 1:50 PM EDT POCT GLUCOSE BLOOD Routine 12/25/2024 11 :57 AM EDT TRANSTHORACIC ECHOCARDIOGRAM (TTE) COMPLETE W/ CONTRAST Routine 12/25/2024 10:28 AM EDT NSTEMI (non-ST elevated myocardial infarction) (CMS/HCC V24, CMS/HCC V28) POCT GLUCOSE BLOOD Routine 12/25/2024 7: 55 AM EDT HEPARIN AND LOW MOLECULAR WEIGHT ANTI XA LEVEL Routine 12/25/2024 6:55 AM EDT MAGNESIUM Routine 12/25/2024 6:55 AM EDT BASIC METABOLIC PANEL Routine 12/25/2024 6:55 AM EDT COMPLETE BLOOD COUNT Routine 12/25/2024 6:55 AM EDT PHOSPHORUS Routine 12/25/2024 6:55 AM EDT POCT GLUCOSE BLOOD Routine 12/24/2024 7: 53 PM EDT POCT GLUCOSE BLOOD Routine 12/24/2024 5: 28 PM EDT HEPARIN AND LOW MOLECULAR WEIGHT ANTI XA LEVEL Timed 12/24/2024 3:17 PM EDT POCT GLUCOSE BLOOD Routine 12/24/2024 12 :04 PM EDT HEPARIN AND LOW MOLECULAR WEIGHT ANTI XA LEVEL Timed 12/24/2024 9:37 AM EDT CBC WITH AUTO DIFFERENTIAL Routine 12/24/2024 9:29 AM EDT CBC AND DIFFERENTIAL Routine 12/24/2024 9:29 AM EDT BASIC METABOLIC PANEL Routine 12/24/2024 9:29 AM EDT POCT GLUCOSE BLOOD Routine 12/24/2024 8: 09 AM EDT POCT GLUCOSE BLOOD Routine 12/24/2024 1: 28 AM EDT TROPONIN I HIGH SENSITIVITY STAT 12/24/2024 12:50 AM EDT ECG 12-LEAD STAT 12/23/2024 11:[address] ABDOMEN PELVIS W CONTRAST STAT 12/23/2024 11:44 PM EDT XR CHEST 1 VIEW STAT 12/23/2024 11:35 PM EDT MATTHEW URINE CULTURE TUBE STAT 12/24/19 11:11 PM EDT URINALYSIS WITH REFLEX MICROSCOPIC AND CULTURE STAT 12/23/2024 11:11 PM EDT URINALYSIS WITH REFLEX MICROSCOPIC AND CULTURE STAT 12/23/2024 11:11 PM EDT CULTURE URINE STAT 12/23/2024 11:11 PM EDT HEPARIN AND LOW MOLECULAR WEIGHT ANTI XA LEVEL STAT Add-on 12/23/2024 10:20 PM EDT CBC WITH AUTO DIFFERENTIAL STAT 12/23/2024 10:20 PM EDT TROPONIN I HIGH SENSITIVITY STAT 12/23/2024 10:20 PM EDT CBC AND DIFFERENTIAL STAT 12/23/2024 10:20 PM EDT ACTIVATED PARTIAL THROMBOPLASTIN TIME STAT 12/23/2024 10:20 PM EDT PROTHROMBIN TIME WITH INR STAT 12/23/2024 10:20 PM EDT LIPASE STAT 12/23/2024 10:20 PM EDT MAGNESIUM STAT 12/23/2024 10:20 PM EDT LACTATE STAT 12/23/2024 10:20 PM EDT COMPREHENSIVE METABOLIC PANEL STAT 12/23/2024 10:20 PM EDT ME CRITICAL CARE 30-74 MINUTES Routine 12/23/2024 9:05 PM EDT POCT GLUCOSE BLOOD Routine 12/10/2024 11 :10 AM EDT POCT GLUCOSE BLOOD Routine 12/10/2024 8: 05 AM EDT CBC WITH AUTO DIFFERENTIAL Routine 12/10/2024 6:20 AM EDT PHOSPHORUS Routine 12/10/2024 6:20 AM EDT MAGNESIUM Routine 12/10/2024 6:20 AM EDT BASIC METABOLIC PANEL Routine 12/10/2024 6:20 AM EDT CBC AND DIFFERENTIAL Routine 12/10/2024 6:20 AM EDT POCT GLUCOSE BLOOD Routine 12/09/2024 7: 47 PM EDT POCT GLUCOSE BLOOD Routine 12/09/2024 4: 21 PM EDT POCT GLUCOSE BLOOD Routine 12/09/2024 11 :43 AM EDT POCT GLUCOSE BLOOD Routine 12/09/2024 7: 31 AM EDT MAGNESIUM Routine 12/09/2024 7:26 AM EDT CBC WITH AUTO DIFFERENTIAL Routine 12/09/2024 7:26 AM EDT BASIC METABOLIC PANEL Routine 12/09/2024 7:26 AM EDT CBC AND DIFFERENTIAL Routine 12/09/2024 7:26 AM EDT CLOSTRIDIUM DIFFICILE PCR Routine 12/09/2024 12:26 AM EDT CLOSTRIDIUM DIFFICILE TOXIN Routine 12/09/2024 12:26 AM EDT POCT GLUCOSE BLOOD Routine 12/08/2024 10 :38 PM EDT MATTHEW URINE CULTURE TUBE Routine 12/09/19 5:57 PM EDT EXTRA TUBES Routine 12/08/2024 5:57 PM EDT URINALYSIS WITH REFLEX MICROSCOPIC AND CULTURE STAT 12/08/2024 5:57 PM EDT URINALYSIS WITH REFLEX MICROSCOPIC AND CULTURE STAT 12/08/2024 5:57 PM EDT CULTURE URINE STAT 12/08/2024 5:[address] ABDOMEN PELVIS W CONTRAST STAT 12/08/2024 5:02 PM EDT CBC WITH AUTO DIFFERENTIAL STAT 12/08/2024 2:39 PM EDT MAGNESIUM STAT 12/08/2024 2:39 PM EDT LIPASE STAT 12/08/2024 2:39 PM EDT LACTATE, WITH REFLEX STAT 12/08/2024 2:39 PM EDT COMPREHENSIVE METABOLIC PANEL STAT 12/08/2024 2:39 PM EDT CBC AND DIFFERENTIAL STAT 12/08/2024 2:39 PM EDT RESPIRATORY VIRUS PANEL MOLECULAR STUDY STAT 12/08/2024 2:19 PM EDT HEMOGLOBIN A1C Routine 04/29/2024 7:24 AM EST Type 2 diabetes mellitus with diabetic chronic kidney disease (CMS/HCC) from Last 3 Months or Most Recently Relevant to Health Maintenance Results * ECG-Annotated (02/16/2025) Only the most recent of2 resultswithin the time period is included. us Provider Onbase MD ECG ORDERABLES Final Result * (ABNORMAL) POCT Glucose, blood (02/15/2025 4:35 PM EDT) Only the most recent of92 resultswithin the time period is included. [facility] Glucose POCT 197(H) 70 - 100 mg/dL 02/15/2025 4:37 PM EDT [facility] Blood Capillary blood specimen / Unknown 02/15/2025 4:35 PM EDT 02/15/2025 4:38 PM EDT Heike Bang MD LAB POINT OF CARE TE ST DOCKED DEVICE UNSOLICITED RESULTS Final Result [facility] [address] [place] [address], [place] [phone] * (ABNORMAL) Hemoglobin and hematocrit (02/15/2025 6:19 AM EDT) Only the most recent of2 resultswithin the time period is included. Hemoglobin 8.1(L) 11.5 - 16.0 g/dL LAB HEMETOLOGY METHOD 02/15/2025 6:58 AM EDT [facility] Hematocrit 26.4(L) 35.0 - 47.0 % LAB HEMETOLOGY METHOD 02/15/2025 6:58 AM [facility] Blood Venous blood specimen / Unknown Venipuncture / Unknown 02/15/2025 6:19 AM EDT 02/15/2025 6:38 AM EDT us Heike Bang MD LAB BLOOD ORDERABLES Final Resu lt [facility] [address] [place] [address], [place] [phone] * (ABNORMAL) Basic metabolic panel (02/15/2025 6:19 AM EDT) Only the most recent of25 resultswithin the time period is included. Sodium 139 133 - 145 mmol/L LAB CHEMISTRY METHOD 02/15/2025 7:06 AM [facility] Potassium 5.0 3.5 - 5.5 mmol/L LAB CHEMISTRY METHOD 02/15/2025 7:06 AM [facility] Chloride 111(H) 96 - 110 mmol/L LAB CHEMISTRY METHOD 02/15/2025 7:06 AM [facility] CO2 23 21 - 32 mmol/L LAB CHEMISTRY METHOD 02/15/2025 7:06 AM [facility] Anion Gap 5 3 - 11 LAB CHEMISTRY METHOD 02/15/2025 7:06 AM [facility] Glucose 142(H) 70 - 100 mg/dL LAB CHEMISTRY METHOD 02/15/2025 7:06 AM [facility] BUN 37(H) 5 - 25 mg/dL LAB CHEMISTRY METHOD 02/15/2025 7:06 AM [facility] Creatinine 1.78(H) 0.50 - 1.10 mg/dL LAB CHEMISTRY METHOD 02/15/2025 7:06 AM [facility] eGFR 30(L) >=60 mL/min/1. 73m2 LAB CHEMISTRY METHOD 02/15/2025 7:06 AM EDT [facility] Comment:Calculation based on the Chronic Kidney Disease Epidemiology Collaboration (CKD-EPI) equation refit without adjustment for race. BUN/Creatinine Ratio 20.8 LAB CHEMISTRY METHOD 02/15/2025 7:06 AM EDT [facility] Calcium 8.6 8.5 - 10.5 mg/dL LAB CHEMISTRY METHOD 02/15/2025 7:06 AM T [facility] Blood Venous blood specimen / Unknown Venipuncture / Unknown 02/15/2025 6:19 AM EDT 02/15/2025 6:38 AM EDT Heike Bang MD LAB BLOOD ORDERABLES Final Resu lt [facility] [address] [place] [address], * (ABNORMAL) CBC - Every 3 Days (02/15/2025 12:12 AM EDT) Only the most recent of5 resultswithin the time period is included. WBC 5.6 4.8 - 10.8 K/mcL LAB HEMETOLOGY METHOD 02/15/2025 12:41 AM [facility] RBC 2.80(L) 3.80 - 4.80 M/mcL LAB HEMETOLOGY METHOD 02/15/2025 12:41 AM EDT [facility] Hemoglobin 7.7(L) 11.5 - 16.0 g/dL LAB HEMETOLOGY METHOD 02/15/2025 12:41 AM [facility] Hematocrit 25.0(L) 35.0 - 47.0 % LAB HEMETOLOGY METHOD 02/15/2025 12:41 AM [facility] MCV 88.0 79.0 - 98.0 FL LAB HEMETOLOGY METHOD 02/15/2025 12:41 AM EDT [facility] MCH 27.1 27.0 - 32.0 pcg LAB HEMETOLOGY METHOD 02/15/2025 12:41 AM EDT [facility] MCHC 30.8(L) 32.0 - 37.0 g/dL LAB HEMETOLOGY METHOD 02/15/2025 12:41 AM EDT [facility] RDW 17.9(H) 11.0 - 15.0 % LAB HEMETOLOGY METHOD 02/15/2025 12:41 AM EDT [facility] Platelets 185 130 - 400 K/mcL LAB HEMETOLOGY METHOD 02/15/2025 12:41 AM EDT [facility] MPV 12.2(H) 7.0 - 11.0 FL LAB HEMETOLOGY METHOD 02/15/2025 12:41 AM EDT [facility] NRBC 0.0 <1.0 % LAB HEMETOLOGY METHOD 02/15/2025 12:41 AM EDT [facility] NRBC Absolute 0.00 <0.10 K/mcL LAB HEMETOLOGY METHOD 02/15/2025 12:41 AM EDT [facility] Blood Venous blood specimen / Unknown Venipuncture / Unknown 02/15/2025 12:12 AM EDT 02/15/2025 12:38 AM EDT us Lisandro Ivy MD LAB BLOOD ORDERABLES F inal Result [facility] [address] [place] [address], [place] [phone] * US Retroperitoneal Complete (02/14/2025 4:26 PM EDT) Anatomical Region Laterality Modality Body Ultrasound 02/14/2025 4:46 PM EDT Impressions 02/14/2025 4:48 PM EDT No hydronephrosis. Several right renal cortical cysts. -------- FINAL REPORT -------- Dictated By: Tyrone Schmid Dictated Date: 02/14/2025 16:46 ET Assigned Physician: Tyrone Schmid Reviewed and Electronically Signed By: Tyrone Schmid Signed Date: 02/14/2025 16:48 ET Workstation ID: [id number] Transcribed By: Self Edit Transcribed Date: 02/14/2025 16:46 ET Narrative 02/14/2025 4:48 PM EDT PROCEDURE: Renal ultrasound. HISTORY: pain Joey ro Obstruction. TECHNIQUE: Grayscale, color Doppler, and spectral Doppler ultrasound of the kidneys. COMPARISON: CT 01/24/2025. FINDINGS: The right kidney measures 9 cm in length and the left kidney measures 8.5 cm in length. No hydronephrosis. Both renal cortices are lobulated and irregular,, finding which is more prominent on the right than the left. There are several right renal cortical cysts. Urinary bladder partially decompressed by a La catheter. No appreciable bladder abnormality. Procedure Note Tyrone Schmid MD - 02/14/2025 PROCEDURE: Renal ultrasound. HISTORY: pain Joey ro Obstruction. TECHNIQUE: Grayscale, color Doppler, and spectral Doppler ultrasound ofthe kidneys. COMPARISON: CT 01/24/2025. FINDINGS: The right kidney measures 9 cm in length and the left kidney measures 8.5cm in length. No hydronephrosis. Both renal cortices are lobulated and irregular,, finding which is moreprominent on the right than the left. There are several right renalcortical cysts. Urinary bladder partially decompressed by a La catheter. Noappreciable bladder abnormality. IMPRESSION: No hydronephrosis. Several right renal cortical cysts. -------- FINAL REPORT -------- Dictated By: Tyrone Schmid Dictated Date: 02/14/2025 16:46 ET Assigned Physician: Tyrone Schmid Reviewed and Electronically Signed By: Tyrone Schmid Signed Date: 02/14/2025 16:48 ET Workstation ID: [id number] Transcribed By: Self Edit Transcribed Date: 02/14/2025 16:46 ET us Heike Bang MD IMG US PROCEDURES Final Result * (ABNORMAL) Iron and TIBC (02/14/2025 7:43 AM EDT) Iron 27(L) 40 - 150 mcg/dL LAB CHEMISTRY METHOD 02/14/2025 9:23 AM EDT [facility] TIBC 260 250 - 450 mcg/dL LAB CHEMISTRY METHOD 02/14/2025 9:23 AM EDT [facility] Iron Saturation 10(L) 15 - 50 % LAB CHEMISTRY METHOD 02/14/2025 9:23 AM EDT [facility] Blood Venous blood specimen / Unknown Venipuncture / Unknown 02/14/2025 7:43 AM EDT 02/14/2025 8:56 AM EDT us Heike Bang MD LAB BLOOD ORDERABLES Final Resu lt Performing Organization Address City/[facility] de Phone Number [facility] [address] [place] [address], [place] [phone] * Prothrombin time with INR (02/14/2025 7:43 AM EDT) Only the most recent of3 resultswithin the time period is included. Protime 12.0 10.6 - 13.9 sec LAB COAGULATION METHOD 02/14/2025 9:04 AM EDT [facility] INR 1.0 LAB COAGULATION METHOD 02/14/2025 9:04 AM EDT [facility] Blood Venous blood specimen / Unknown Venipuncture / Unknown 02/14/2025 7:43 AM EDT 02/14/2025 8:56 AM EDT us Heike Bang MD LAB BLOOD ORDERABLES Final Resu lt [facility] [address] [place] [address], [place] [phone] * (ABNORMAL) C-reactive protein (02/14/2025 7:43 AM EDT) [facility] C-Reactive Protein 0.75(H) <=0.50 mg/dL LAB CHEMISTRY METHOD 02/14/2025 9:23 AM EDT [facility] Blood Venous blood specimen / Unknown Venipuncture / Unknown 02/14/2025 7:43 AM EDT 02/14/2025 8:56 AM EDT us Heike Bang MD LAB BLOOD ORDERABLES Final Resu lt Performing Organization Address City/[facility]/ZIP Co de Phone Number [facility] [address] [place] [address], [place] [phone] * Vitamin B12 (02/14/2025 7:43 AM EDT) [facility] Vitamin B-12 367 250 - 900 pcg/mL LAB CHEMISTRY METHOD 02/14/2025 9:44 AM EDT [facility] Blood Venous blood specimen / Unknown Venipuncture / Unknown 02/14/2025 7:43 AM EDT 02/14/2025 8:56 AM EDT us Heike Bang MD LAB BLOOD ORDERABLES Final Resu lt [facility] [address] [place] [address], [place] [phone] * Vancomycin random (02/14/2025 7:43 AM EDT) Only the most recent of9 resultswithin the time period is included. [facility] Vancomycin Rm 14.6 mcg/mL LAB CHEMISTRY METHOD 02/14/2025 9:40 AM EDT [facility] Blood Venous blood specimen / Unknown Venipuncture / Unknown 02/14/2025 7:43 AM EDT 02/14/2025 8:56 AM EDT us Heike Bang MD LAB BLOOD ORDERABLES Final Resu lt Performing Organization Address City/[facility]/ZIP Co de Phone Number [facility] [address] [place] [address], [place] [phone] * Blood Culture, Peripheral Draw #1 (02/13/2025 4:37 PM EDT) Only the most recent of10 resultswithin the time period is included. Pathologist [facility] Culture, Blood No growth at 5 days 02/18/2025 5:01 PM EDT [facility] Blood Venous blood specimen / Unknown Venipuncture / Unknown 02/13/2025 4:37 PM EDT 02/13/2025 4:38 PM EDT us Heike Bang MD LAB MICROBIOLOGY - GENERAL ORDE RABLES Final Result Performing Organization Address City/[facility]/ZIP Co de Phone Number [facility] [address] [place] [address], [place] [phone] * (ABNORMAL) CBC auto differential (02/13/2025 5:25 AM EDT) Only the most recent of23 resultswithin the time period is included. WBC 5.1 4.8 - 10.8 K/mcL LAB HEMETOLOGY METHOD 02/13/2025 7:03 AM EDT [facility] RBC 2.80(L) 3.80 - 4.80 M/mcL LAB HEMETOLOGY METHOD 02/13/2025 7:03 AM EDT [facility] Hemoglobin 7.6(L) 11.5 - 16.0 g/dL LAB HEMETOLOGY METHOD 02/13/2025 7:03 AM EDT [facility] Hematocrit 25.2(L) 35.0 - 47.0 % LAB HEMETOLOGY METHOD 02/13/2025 7:03 AM [facility] MCV 89.4 79.0 - 98.0 FL LAB HEMETOLOGY METHOD 02/13/2025 7:03 AM [facility] MCH 27.0 27.0 - 32.0 pcg LAB HEMETOLOGY METHOD 02/13/2025 7:03 AM [facility] MCHC 30.2(L) 32.0 - 37.0 g/dL LAB HEMETOLOGY METHOD 02/13/2025 7:03 AM [facility] RDW 17.9(H) 11.0 - 15.0 % LAB HEMETOLOGY METHOD 02/13/2025 7:03 AM [facility] Platelets 157 130 - 400 K/mcL LAB HEMETOLOGY METHOD 02/13/2025 7:03 AM [facility] MPV 12.4(H) 7.0 - 11.0 FL LAB HEMETOLOGY METHOD 02/13/2025 7:03 AM [facility] NRBC 0.0 <1.0 % LAB HEMETOLOGY METHOD 02/13/2025 7:03 AM [facility] NRBC Absolute 0.00 <0.10 K/mcL LAB HEMETOLOGY METHOD 02/13/2025 7:03 AM [facility] Neutrophils Relative 54.0 % LAB HEMETOLOGY METHOD 02/13/2025 7:03 AM [facility] Lymphocytes Relative 30.7 % LAB HEMETOLOGY METHOD 02/13/2025 7:03 AM [facility] Monocytes Relative 8.4 % LAB HEMETOLOGY METHOD 02/13/2025 7:03 AM [facility] Eosinophils Relative 6.1 % LAB HEMETOLOGY METHOD 02/13/2025 7:03 AM [facility] Basophils Relative 0.6 % LAB HEMETOLOGY METHOD 02/13/2025 7:03 AM EDT [facility] Immature Granulocytes Relative 0.2 % LAB HEMETOLOGY METHOD 02/13/2025 7:03 AM EDT [facility] Neutrophils Absolute 2.76 1.50 - 7.00 K/mcL LAB HEMETOLOGY METHOD 02/13/2025 7:03 AM EDT [facility] Lymphocytes Absolute 1.57 1.00 - 5.00 K/mcL LAB HEMETOLOGY METHOD 02/13/2025 7:03 AM EDT [facility] Monocytes Absolute 0.43 0.20 - 1.00 K/mcL LAB HEMETOLOGY METHOD 02/13[facility]2025 [facility] Eosin[facility] Absolute 0.31 0.00 - 0.50 K/mcL LAB HEMETOLOGY METHOD 02/13/2025 7[facility] Basophils Absolute 0.03 0.00 - 0.20 K/mcL LAB HEMETOLOGY METHOD 02/13/2025 7:03 AM EDT [facility] Immature Granulocytes Absolute 0.01 0.00 - 0.03 K/mcL LAB HEMETOLOGY METHOD 02/13/2025 7:03 AM [facility] Blood Venous blood specimen / Unknown Venipuncture / Unknown 02/13/2025 5:25 AM EDT 02/13/2025 6:43 AM EDT us Miguel Grubbs MD LAB BLOOD ORDERABLES Final Re sult [facility] [address] [place] [address], * (ABNORMAL) Renal function panel (02/13/2025 5:25 AM EDT) [facility] Sodium 138 133 - 145 mmol/L LAB CHEMISTRY METHOD 02/13/2025 7:27 AM [facility] Potassium 4.8 3.5 - 5.5 mmol/L LAB CHEMISTRY METHOD 02/13/2025 7:27 AM [facility] Chloride 110 96 - 110 mmol/L LAB CHEMISTRY METHOD 02/13/2025 7:27 AM [facility] CO2 23 21 - 32 mmol/L LAB CHEMISTRY METHOD 02/13/2025 7:27 AM [facility] Anion Gap 5 3 - 11 LAB CHEMISTRY METHOD 02/13/2025 7:27 AM [facility] Glucose 123(H) 70 - 100 mg/dL LAB CHEMISTRY METHOD 02/13/2025 7:27 AM [facility] BUN 35(H) 5 - 25 mg/dL LAB CHEMISTRY METHOD 02/13/2025 7:27 AM [facility] Creatinine 1.90(H) 0.50 - 1.10 mg/dL LAB CHEMISTRY METHOD 02/13/2025 7:27 AM [facility] eGFR 27(L) >=60 mL/min/1. 73m2 LAB CHEMISTRY METHOD 02/13/2025 7:27 AM [facility] Comment:Calculation based on the Chronic Kidney Disease Epidemiology Collaboration (CKD-EPI) equation refit without adjustment for race. BUN/Creatinine Ratio 18.4 LAB CHEMISTRY METHOD 02/13/2025 7:27 AM [facility] Albumin 2.3(L) 3.2 - 5.0 g/dL LAB CHEMISTRY METHOD 02/13/2025 7:27 AM [facility] Calcium 8.0(L) 8.5 - 10.5 mg/dL LAB CHEMISTRY METHOD 02/13/2025 7:27 AM [facility] Phosphorus 3.7 2.5 - 4.5 mg/dL LAB CHEMISTRY METHOD 02/13/2025 7:27 AM [facility] Blood Venous blood specimen / Unknown Venipuncture / Unknown 02/13/2025 5:25 AM EDT 02/13/2025 6:43 AM EDT us Miguel Grubbs MD LAB BLOOD ORDERABLES Final Re sult Performing Organization Address City/[facility]/ZIP Co de Phone Number [facility] [address] [place] [address], [place] [phone] * Phosphorus (02/12/2025 6:09 AM EDT) Only the most recent of13 resultswithin the time period is included. Phosphorus 3.3 2.5 - 4.5 mg/dL LAB CHEMISTRY METHOD 02/12/2025 7:01 AM EDT [facility] Blood Venous blood specimen / Unknown Venipuncture / Unknown 02/12/2025 6:09 AM EDT 02/12/2025 6:28 AM EDT us Lisandro Ivy MD LAB BLOOD ORDERABLES F inal Result Performing Organization Address [facility] de Phone Number [facility] [address] [place] [address], [place] [phone] * Magnesium (02/12/2025 6:09 AM EDT) Only the most recent of19 resultswithin the time period is included. Magnesium 1.9 1.9 - 2.6 mg/dL LAB CHEMISTRY METHOD 02/12/2025 7:01 AM EDT [facility] Blood Venous blood specimen / Unknown Venipuncture / Unknown 02/12/2025 6:09 AM EDT 02/12/2025 6:28 AM EDT us Lisandro Ivy MD LAB BLOOD ORDERABLES F inal Result Performing Organization Address City/[facility]/ZIP Co de Phone Number [facility] [address] [place] [address], [place] [phone] * (ABNORMAL) Culture urine (02/11/2025 2:33 PM EDT) Only the most recent of4 resultswithin the time period is included. [facility] Culture, Urine 50,000-100, 000 CFU/mL Daina albicans(A) AMRIT 02/14/2025 8:24 AM EDT [facility] Comment: The organism value for this result has been updated. These results have been appended to the previously preliminary verified report. Edited result: Previously reported as Yeast on 02/14/2025 at 0739 EDT. Urine Urine specimen obtained by clean catch procedure / Unknown Non-blood Collection / Unknown 02/11/2025 2:33 PM EDT 02/11/2025 3:47 PM EDT Carmelita Chung MD LAB MICROBIOLOGY - GENERAL OR DERABLES Final Result [facility] [address] [place] [address], [place] [phone] * (ABNORMAL) Urinalysis with reflex microscopic (02/11/2025 2:32 PM EDT) Only the most recent of3 resultswithin the time period is included. [facility] Specific Locke Urine 1.011 1.003 - 1.030 LAB URINALYSIS - AUTOMATED METHOD 02/11/2025 4:56 PM EDT [facility] pH, Urine 6.0 5.0 - 8.0 pH LAB URINALYSIS - AUTOMATED METHOD 02/11/2025 4:56 PM EDT [facility] Leukocytes, Urine Large(A) Negative LAB URINALYSIS - AUTOMATED METHOD 02/11/2025 4:56 PM EDT [facility] Nitrite, Urine Negative Negative LAB URINALYSIS - AUTOMATED METHOD 02/11/2025 4:56 PM EDT [facility] Protein, Urine 100(A) <=Trace mg/dL LAB URINALYSIS - AUTOMATED METHOD 02/11/2025 4:56 PM [facility] Glucose, Urine 100(A) Negative mg/dL LAB URINALYSIS - AUTOMATED METHOD 02/11/2025 4:56 PM [facility] Ketones, Urine Negative Negative mg/dL LAB URINALYSIS - AUTOMATED METHOD 02/11/2025 4:56 PM [facility] Urobilinogen , Urine 0.2 0.2 - 1.0 mg/dL LAB URINALYSIS - AUTOMATED METHOD 02/11/2025 4:56 PM [facility] Bilirubin, Urine Negative Negative LAB URINALYSIS - AUTOMATED METHOD 02/11/2025 4:56 PM [facility] Blood, Urine Moderate(A) Negative LAB URINALYSIS - AUTOMATED METHOD 02/11/2025 4:56 PM [facility] RBC, Urine 30.0(H) 0 - 4 /HPF LAB URINALYSIS - AUTOMATED METHOD 02/11/2025 4:56 PM [facility] WBC, Urine >4,000(H) 0 - 4 /HPF LAB URINALYSIS - AUTOMATED METHOD 02/11/2025 4:56 PM [facility] Squamous Epithelial, Urine 80(H) 0 - 60 /LPF LAB URINALYSIS - AUTOMATED METHOD 02/11/2025 4:56 PM [facility] Crystals, Urine Light Calcium Phosphate crystals. /LPF LAB URINALYSIS - AUTOMATED METHOD 02/11/2025 4:56 PM [facility] Bacteria, Urine Few(A) Negative /HPF LAB URINALYSIS - AUTOMATED METHOD 02/11/2025 4:56 PM [facility] Hyaline Casts, Urine 3.0 0 - 3 /LPF LAB URINALYSIS - AUTOMATED METHOD 02/11/2025 4:56 PM [facility] Yeast, Urine Present(A) None /HPF LAB URINALYSIS - AUTOMATED METHOD 02/11/2025 4:56 PM EDT [facility] Urine Urine specimen obtained by clean catch procedure / Unknown Non-blood Collection / Unknown 02/11/2025 2:32 PM EDT 02/11/2025 3:47 PM EDT us Carmelita Chung MD LAB URINE ORDERABLES Final Re sult Performing Organization Address [facility]/ZIP Co de Phone Number [facility] [address] [place] [address], [place] [phone] * Creatine kinase (02/11/2025 5:50 AM EDT) Only the most recent of3 resultswithin the time period is included. Total CK 35 22 - 269 unit/L LAB CHEMISTRY METHOD 02/11/2025 5:29 PM EDT [facility] Blood Venous blood specimen / Unknown Venipuncture / Unknown 02/11/2025 5:50 AM EDT 02/11/2025 6:29 AM EDT us Carmelita Chung MD LAB BLOOD ORDERABLES Final Re sult Performing Organization Address [facility] Co de Phone Number [facility] [address] [place] [address], [place] [phone] * (ABNORMAL) Eosinophils, urine (02/10/2025 11:16 AM EDT) Eosinophil % Urine 1(H) 0 % 02/10/2025 2:04 PM EDT [facility] WBC, Urine 60(H) 0 - 4 /HPF LAB URINALYSIS - AUTOMATED METHOD 02/10/2025 2:04 PM EDT [facility] Urine Urine specimen obtained by clean catch procedure / Unknown Non-blood Collection / Unknown 02/10/2025 11:16 AM EDT 02/10/2025 11:58 AM EDT us Lisandro Ivy MD LAB URINE ORDERABLES F inal Result [facility] [address] [place] [address], [place] [phone] * Urea nitrogen, urine (02/10/2025 11:16 AM EDT) Urea Nitrogen, Ur 304 mg/dL LAB CHEMISTRY METHOD 02/10/2025 1:08 PM EDT [facility] Urine Urine specimen obtained by clean catch procedure / Unknown Non-blood Collection / Unknown 02/10/2025 11:16 AM EDT 02/10/2025 11:58 AM EDT us Lisandro Ivy MD LAB URINE ORDERABLES F inal Result Performing Organization Address [facility] Co de Phone Number [facility] [address] [place] [address], [place] [phone] * Sodium, urine, random (02/10/2025 11:16 AM EDT) Only the most recent of2 resultswithin the time period is included. Sodium, Ur 83 mmol/L LAB CHEMISTRY METHOD 02/10/2025 1:08 PM EDT [facility] Urine Urine specimen obtained by clean catch procedure / Unknown Non-blood Collection / Unknown 02/10/2025 11:16 AM EDT 02/10/2025 11:58 AM EDT us Lisandro Ivy MD LAB URINE ORDERABLES F inal Result Performing Organization Address City/[facility]/ZIP Co de Phone Number [facility] [address] [place] [address], [place] [phone] * Creatinine, urine, random (02/10/2025 11:16 AM EDT) Creatinine, Urine 44.0 mg/dL LAB CHEMISTRY METHOD 02/10/2025 1:08 PM EDT [facility] Urine Urine specimen obtained by clean catch procedure / Unknown Non-blood Collection / Unknown 02/10/2025 11:16 AM EDT 02/10/2025 11:58 AM EDT us Lisandro Ivy MD LAB URINE ORDERABLES F inal Result [facility] [address] [place] [address], [place] [phone] * CT Pelvis wo Contrast (02/07/2025 10:07 PM EDT) Anatomical Region Laterality Modality Body, Pelvis Computed Tomogra phy 02/07/2025 11:0 5 PM EDT Impressions 02/07/2025 11:05 PM EDT 1. Stable internal fixation of proximal aspect left femur. Left femoral neck fractures visible it is unclear if this is a new fracture. No dislocation. 2. Diffuse demineralization, degenerative changes right hip. 3. Diffuse soft tissue stranding/edema more prominent lateral to the left. This document has been electronically signed by: Pearl Pierce MD on 02/07/2025 23:05:16 Narrative 02/07/2025 11:05 PM EDT INDICATION: fracture CT pelvis without contrast Comparison: CT - CT ABD PEL WO CONTRAST - 01/02/2025 08:01 PM EDT Findings: There has been previous internal fixation of proximal aspect left femur with stable mild varus deformity. A fracture line is still visible at the level of the femoral neck. No additional fractures. Diffuse demineralization. Degenerative changes right hip Stable moderately severe compression fracture of L4 vertebral body with stable retropulsion. Diffuse soft tissue stranding/edema more prominent lateral to hip. Moderate stool in visualized part of the colon and rectum. No pelvic free fluid. Urinary bladder within normal limits. Procedure Note Pearl Pierce MD - 02/07/2025 INDICATION: fracture CT pelvis without contrast Comparison: CT - CT ABD PEL WO CONTRAST - 01/02/2025 08:01 PM EDT Findings: There has been previous internal fixation of proximal aspect left femur with stable mild varus deformity. A fracture line is still visible at the level of the femoral neck. No additional fractures. Diffuse demineralization. Degenerative changes right hip Stable moderately severe compression fracture of L4 vertebral body with stable retropulsion. Diffuse soft tissue stranding/edema more prominent lateral to hip. Moderate stool in visualized part of the colon and rectum. No pelvicfree fluid. Urinary bladder within normal limits. IMPRESSION: 1. Stable internal fixation of proximal aspect left femur. Left femoral neck fractures visible it is unclear if this is a new fracture. No dislocation. 2. Diffuse demineralization, degenerative changes right hip. 3. Diffuse soft tissue stranding/edema more prominent lateral to theleft. This document has been electronically signed by: Pearl Pierce MD on 02/07/2025 23:05:[address] PROCEDURES Final Result * XR Pelvis 1-2 Views (02/07/2025 9:38 PM EDT) Anatomical Region Laterality Modality Body, Pelvis Radiographic Malena ging 02/08/2025 9:03 AM EDT Impressions 02/08/2025 9:10 AM EDT FINDINGS/IMPRESSION: Left proximal femoral fracture status post fixation with hip screw and short intramedullary charlotte. Hardware including distal interlocking screw intact. Alignment is anatomic. No acute fracture or dislocation. Degenerative changes at the hips. No focal soft tissue swelling. -------- FINAL REPORT -------- Dictated By: BILL MCDOWELL Dictated Date: 02/08/2025 09:03 ET Assigned Physician: BILL MCDOWELL Reviewed and Electronically Signed By: BILL MCDOWELL Signed Date: 02/08/2025 09:10 ET Workstation ID: [id number] Transcribed By: Self Edit Transcribed Date: 02/08/2025 09:03 ET Narrative 02/08/2025 9:10 AM EDT XR PELVIS 1-2 VIEWS INDICATION: Pain TECHNIQUE: XR PELVIS 1-2 VIEWS COMPARISON: 01/24/2025 Procedure Note Bill Mcdowell MD - 02/08/2025 XR PELVIS 1-2 VIEWS INDICATION: Pain TECHNIQUE: XR PELVIS 1-2 VIEWS COMPARISON: 01/24/2025 IMPRESSION: FINDINGS/IMPRESSION: Left proximal femoral fracture status post fixationwith hip screw and short intramedullary charlotte. Hardware including distalinterlocking screw intact. Alignment is anatomic. No acute fracture ordislocation. Degenerative changes at the hips. No focal soft tissueswelling. -------- FINAL REPORT -------- Dictated By: BILL MCDOWELL Dictated Date: 02/08/2025 09:03 ET Assigned Physician: BILL MCDOWELL Reviewed and Electronically Signed By: BILL MCDOWELL Signed Date: 02/08/2025 09:10 ET Workstation ID: [id number] Transcribed By: Self Edit Transcribed Date: 02/08/2025 09:03 ET [place]elia [place] [facility] [place]ED[place] Final Result * (ABNORMAL) Comprehensive Metabolic Panel (CMP) (02/07/2025 9:13 PM EDT) Only the most recent of4 resultswithin the time period is included. Sodium 140 133 - 145 mmol/L LAB CHEMISTRY METHOD 02/07/2025 10:05 PM [facility] Potassium 4.3 3.5 - 5.5 mmol/L LAB CHEMISTRY METHOD 02/07/2025 10:05 PM [facility] Chloride 109 96 - 110 mmol/L LAB CHEMISTRY METHOD 02/07/2025 10:05 PM [facility] CO2 24 21 - 32 mmol/L LAB CHEMISTRY METHOD 02/07/2025 10:05 PM [facility] Anion Gap 7 3 - 11 LAB CHEMISTRY METHOD 02/07/2025 10:05 PM [facility] Glucose 154(H) 70 - 100 mg/dL LAB CHEMISTRY METHOD 02/07/2025 10:05 PM [facility] BUN 28(H) 5 - 25 mg/dL LAB CHEMISTRY METHOD 02/07/2025 10:05 PM [facility] Creatinine 1.47(H) 0.50 - 1.10 mg/dL LAB CHEMISTRY METHOD 02/07/2025 10:05 PM [facility] eGFR 37(L) >=60 mL/min/1. 73m2 LAB CHEMISTRY METHOD 02/07/2025 10:05 PM [facility] Comment:Calculation based on the Chronic Kidney Disease Epidemiology Collaboration (CKD-EPI) equation refit without adjustment for race. BUN/Creatinine Ratio 19.0 LAB CHEMISTRY METHOD 02/07/2025 10:05 PM [facility] Calcium 8.3(L) 8.5 - 10.5 mg/dL LAB CHEMISTRY METHOD 02/07/2025 10:05 PM [facility] AST (SGOT) 89(H) 10 - 42 unit/L LAB CHEMISTRY METHOD 02/07/2025 10:05 PM [facility] ALT (SGPT) 79(H) 10 - 60 unit/L LAB CHEMISTRY METHOD 02/07/2025 10:05 PM [facility] Alkaline Phosphatase 817(H) 42 - 121 unit/L LAB CHEMISTRY METHOD 02/07/2025 10:05 PM [facility] Total Protein 6.1 6.0 - 8.0 g/dL LAB CHEMISTRY METHOD 02/07/2025 10:05 PM [facility] Albumin 2.5(L) 3.2 - 5.0 g/dL LAB CHEMISTRY METHOD 02/07/2025 10:05 PM [facility] Total Bilirubin 0.3 0.0 - 1.4 mg/dL LAB CHEMISTRY METHOD 02/07/2025 10:05 PM [facility] Blood Venous blood specimen / Unknown Venipuncture / Unknown 02/07/2025 9:13 PM EDT 02/07/2025 9:29 PM EDT Cordelia CABRERA LAB BLOOD ORDERABLES Fin al Result Performing Organization Address City/[facility]/ZIP Co de Phone Number JERICA MCCLAIN [place] ([facility]) [facility] [address] [place] [address], [place] [phone] * 12-Lead ECG (02/07/2025 9:07 PM EDT) Only the most recent of3 resultswithin the time period is included. Ventricular Rate ECG 61 BPM GEMUSE Atrial Rate 61 BPM GEMUSE P-R Interval 140 ms GEMUSE QRS Duration 78 ms GEMUSE Q-T Interval 468 ms GEMUSE QTc 471 ms GEMUSE P Wave Blanco 33 degrees GEMUSE T Blanco 23 degrees GEMUSE ECG Interpretation Normal sinus rhythm Minimal voltage criteria for LVH, may be normal variant Borderline ECG When compared with ECG of 29-JAN-2025 10:57, No significant change was found Confirmed by Marialuisa BAEZA JAMES ([id number]) on 02/08/2025 12:30:01 PM GEMUSE 02/07/2025 9:07 PM EDT 02/08/2025 12:30 PM EDT Cordelia CABRERA ECG ORDERABLES Final Re sult Performing Organization Address City/[facility]/ZIP Co de Phone Number GEMUSE * Insert PICC line (02/02/2025 3:30 PM EDT) Narrative Kanchan Hutchinson RN - 02/02/2025 3:30 PM EDT Kanchan Hutchinson RN 02/02/2025 4:51 PM PICC Line Insertion Procedure Note Procedure: Insertion of 4F single lumen Bard PowerPICC Lot: [id number] Exp: 2025-10-01 Indications: IV Vancomycin EOT 02/10/2025 Procedure Details: Informed consent was obtained for the procedure. Risks of thrombus and infection were discussed. Pre-procedure checklist completed at bedside. Maximum sterile technique was used including antiseptics, cap, gloves, gown, hand hygiene, mask, and sheet. Midline catheter re-wired and catheter advanced smoothly upon first attempt. Two wires intact and discarded. 1% Lidocaine 0 ml sc administered. 4F PICC inserted to the Right Basilic vein per hospital protocol. Flushes smoothly with good blood return. Findings: Catheter cut at 41 cm and inserted to 41 cm with 0 cm exposed. Mid upper arm circumference is 28 cm. There were no changes to vital signs. Catheter was flushed with 10 cc NS and sterile CVC dressing with Biopatch applied. Patient did tolerate procedure well. Nephrology clearance from Dr Joseph for for re-wire of existing midline in dominant arm. Recommendations: 3cg confirmation obtained: Tip at cavoatrial junction/May use line PICC Brochure given left at bedside. Procedure performed by PAGE Elmore & PAGE Franklin us Aimee Wharton MD IV THERAPY ORDERABLES Edite d Result - Final * Transfuse RBC, Leukoreduced (02/01/2025 3:36 PM EDT) Aimee Wharton MD BLOOD TRANSFUSION ORDERABLE S Final Result * Prepare RBC: 1 Units, Leukoreduced (02/01/2025 11:31 AM EDT) Product Code [id number] [facility]2025 1:[facility] PM [facility] Number [id number] 02/02/20 25 1:09 PM [facility] Crossmatch Compatible 02/01/2025 11:37 AM [facility] Dispense Status Transfused 02/01/2025 1:09 PM [facility] Unit ABO Rh APOS 02/01/2025 1:09 PM [facility] Unit Expiration Date Time [id number] 02/01/2025 1:09 PM [facility] Unit Blood Type 6200 02/01/2025 1:09 PM [facility] Blood Venous blood specimen / Unknown 02/01/2025 11:31 AM EDT 01/29/2025 6:16 AM EDT Aimee Wharton MD BLOOD BANK PRODUCT ORDERABL ES Final Result [facility] ([facility] [address] [place] [address], [place] [phone] * NM Tumor Localization Whole Body 1 Day (01/31/2025 12:44 PM EDT) Anatomical Region Laterality Modality Body Nuclear Medicine 02/01/2025 9:48 AM EDT Impressions 02/01/2025 9:49 AM EDT Normal white blood cell scintigraphy study. Daniel CABRERA ([id number]) -------- FINAL REPORT -------- Dictated By: Christy Tomlin Dictated Date: 02/01/2025 09:48 ET Assigned Physician: Christy Tomlin Reviewed and Electronically Signed By: Christy Tomlin Signed Date: 02/01/2025 09:49 ET Workstation ID: [id number] Transcribed By: Self Edit Transcribed Date: 02/01/2025 09:48 ET Narrative 02/01/2025 9:49 AM EDT HISTORY: Sepsis of unknown source. Technique: 24 hour delayed whole-body scintigraphy was performed in the anterior and posterior projections following the intravenous administration of 435 uCi of In- 111 labeled leukocytes. Findings: There is physiologic uptake of radiopharmaceutical within the liver, spleen, and bone marrow. There is no focal abnormal increased uptake to suggest active infection or abscess. Procedure Note Christy Tomlin MD - 02/01/2025 HISTORY: Sepsis of unknown source. Technique: 24 hour delayed whole-body scintigraphy was performed in theanterior and posterior projections following the intravenousadministration of 435 uCi of In- 111 labeled leukocytes. Findings: There is physiologic uptake of radiopharmaceutical within the liver,spleen, and bone marrow. There is no focal abnormal increased uptake to suggest active infection orabscess. IMPRESSION: Normal white blood cell scintigraphy study. Daniel CABRERA ([id number]) -------- FINAL REPORT -------- Dictated By: Christy Tomlin Dictated Date: 02/01/2025 09:48 ET Assigned Physician: Christy Tomlin Reviewed and Electronically Signed By: Christy Tomlin Signed Date: 02/01/2025 09:49 ET Workstation ID: [id number] Transcribed By: Self Edit Transcribed Date: 02/01/2025 09:48 ET Lisandro Ivy MD IMG NM PROCEDURES Kristin l Result * Potassium, urine, random (01/30/2025 11:08 AM EDT) Potassium, Ur 19.0 mmol/L LAB CHEMISTRY METHOD 01/30/2025 1:56 PM EDT [facility] Urine Urine specimen obtained by clean catch procedure / Unknown Non-blood Collection / Unknown 01/30/2025 11:08 AM EDT 01/30/2025 11:55 AM EDT Carmelita Chung MD LAB URINE ORDERABLES Final Re sult Performing Organization Address [facility]/ZIP Co de Phone Number [facility] [address] [place] [address], * (ABNORMAL) Osmolality, urine (01/30/2025 11:08 AM EDT) Osmolality, Urine 278(L) 300 - 1,300 mOsm/kg LAB CHEMISTRY METHOD 01/30/2025 7:00 PM EDT [facility] Urine Urine specimen obtained by clean catch procedure / Unknown Non-blood Collection / Unknown 01/30/2025 11:08 AM EDT 01/30/2025 11:55 AM EDT Carmelita Chung MD LAB URINE ORDERABLES Final Re sult [facility] [address] [place] [address], [place] [phone] * Potassium (01/29/2025 5:01 PM EDT) Only the most recent of2 resultswithin the time period is included. Pathologist [facility] Potassium 5.4 3.5 - 5.5 mmol/L LAB CHEMISTRY METHOD 01/29/2025 6:16 PM EDT [facility] Blood Venous blood specimen / Unknown Venipuncture / Unknown 01/29/2025 5:01 PM EDT 01/29/2025 5:55 PM EDT Lisandro Ivy MD LAB BLOOD ORDERABLES F inal Result [facility] [address] [place] [address], * (ABNORMAL) Osmolality (01/29/2025 9:08 AM EDT) [facility] Osmolality Chel 302(H) 280 - 300 mOsm/kg LAB CHEMISTRY METHOD 01/29/2025 3:42 PM EDT [facility] Blood Venous blood specimen / Unknown Venipuncture / Unknown 01/29/2025 9:08 AM EDT 01/29/2025 9:36 AM EDT Carmelita Chung MD LAB BLOOD ORDERABLES Final Re sult [facility] [address] [place] [address], [place] [phone] * Lactate dehydrogenase (01/29/2025 9:08 AM EDT) [facility] LDH 158 120 - 246 unit/L LAB CHEMISTRY METHOD 01/29/2025 3:29 PM EDT [facility] Blood Venous blood specimen / Unknown Venipuncture / Unknown 01/29/2025 9:08 AM EDT 01/29/2025 9:36 AM EDT us Carmelita Chung MD LAB BLOOD ORDERABLES Final Re sult Performing Organization Address City/[facility]/ZIP Co de Phone Number [facility] [address] [place] [address], [place] [phone] * Haptoglobin (01/29/2025 9:08 AM EDT) Pathologist [facility] Haptoglobin 120 16 - 200 mg/dL LAB CHEMISTRY METHOD 01/29/2025 3:29 PM EDT [facility] Blood Venous blood specimen / Unknown Venipuncture / Unknown 01/29/2025 9:08 AM EDT 01/29/2025 9:36 AM EDT us Carmelita Chung MD LAB BLOOD ORDERABLES Final Re sult Performing Organization Address [facility] de Phone Number [facility] [address] [place] [address], [place] [phone] * (ABNORMAL) Vancomycin, trough Please draw level 1 hour prior to vancomycin administration (01/29/2025 9:08 AM EDT) Only the most recent of2 resultswithin the time period is included. [facility] Vancomycin Trough 26.8(H) 10.0 - 20.0 mcg/mL LAB CHEMISTRY METHOD 01/29/2025 10:30 AM EDT [facility] Blood Venous blood specimen / Unknown Venipuncture / Unknown 01/29/2025 9:08 AM EDT 01/29/2025 9:36 AM EDT us Flor Jensen MD LAB BLOOD ORDERABLES Final Resul t Performing Organization Address [facility] Co de Phone Number [facility] [address] [place] [address], [place] [phone] * Type and screen (01/29/2025 5:45 AM EDT) Pathologist [facility] ABO Group A 01/29/2025 7:34 AM EDT [facility] Rh Type Positive 01/29/2025 7:34 AM EDT [facility] Antibody Screen Negative 01/29/2025 7:34 AM EDT [facility] Blood Venous blood specimen / Unknown Existing Catheter / Unknown 01/29/2025 5:45 AM EDT 01/29/2025 6:16 AM EDT us Lisandro Ivy MD LAB BLOOD BANK TEST OR DERABLES Final Result [facility] [address] [place] [address], [place] [phone] * Occult blood stool, guaiac (01/28/2025 3:42 PM EDT) [facility] Occult Blood, Stool #1 Negative Negative 01/28/2025 4:01 PM EDT [facility] Stool Rectum structure / Unknown Non-blood Collection / Unknown 01/28/2025 3:42 PM EDT 01/28/2025 3:49 PM EDT us Lisandro Ivy MD LAB BODY FLUIDS AND ST OOLS ORDERABLES Final Result [facility] [address] [place] [address], [place] [phone] * (ABNORMAL) Hepatic function panel (01/28/2025 5:46 AM EDT) Only the most recent of2 resultswithin the time period is included. [facility] Total Protein 5.4(L) 6.0 - 8.0 g/dL LAB CHEMISTRY METHOD 01/28/2025 6:54 AM EDT [facility] Albumin 2.2(L) 3.2 - 5.0 g/dL LAB CHEMISTRY METHOD 01/28/2025 6:54 AM EDT [facility] Total Bilirubin 0.2 0.0 - 1.4 mg/dL LAB CHEMISTRY METHOD 01/28/2025 6:54 AM EDT [facility] Bilirubin, Direct <0.1 0.0 - 0.3 mg/dL LAB CHEMISTRY METHOD 01/28/2025 6:54 AM EDT [facility] Bilirubin, Indirect LAB CHEMISTRY METHOD 01/28/2025 6:54 AM EDT [facility] Comment:Unable to calculate Indirect Bilirubin. ALT (SGPT) 62(H) 10 - 60 unit/L LAB CHEMISTRY METHOD 01/28/2025 6:54 AM EDT [facility] AST (SGOT) 62(H) 10 - 42 unit/L LAB CHEMISTRY METHOD 01/28/2025 6:54 AM EDT [facility] Alkaline Phosphatase 463(H) 42 - 121 unit/L LAB CHEMISTRY METHOD 01/28/2025 6:54 AM EDT [facility] Blood Blood sample taken from central line / Unknown Venipuncture / Unknown 01/28/2025 5:46 AM EDT 01/28/2025 6:07 AM EDT Lisandro Ivy MD LAB BLOOD ORDERABLES F inal Result [facility] [address] [place] [address], * Insert Midline (01/26/2025 12:17 PM EDT) Narrative Kanchan Hutchinson RN - 01/26/2025 12:17 PM EDT Kanchan Hutchinson RN 01/27/2025 2:05 PM Midline Insertion Procedure Note Procedure: Insertion of 4F single lumen Bard PowerMidline Lot: [id number] Exp: 2025-05-03 Indications: Provider's order for lab draws & IV access Procedure Details: Maximum sterile technique was used including antiseptics, cap, gloves, gown, hand hygiene, mask, and sheet. US guidance utilized, vein easily accessed and catheter advanced smoothly upon first attempt. Two wires intact and discarded. 1% Lidocaine 2 ml sc administered. 4F Midline inserted to the Right Brachial vein per hospital protocol. Flushes smoothly with good blood return. Findings: Catheter cut at 15 cm and inserted to 15 cm with 15 cm exposed. Mid upper arm circumference is 0 cm. There were no changes to vital signs. Catheter was flushed with 10 cc NS and sterile CVC dressing with Biopatch applied. Patient did tolerate procedure well. Nephrology clearance from Dr Joseph for insertion in dominant arm. Recommendations: May use line for lab draws. Brochure given to patient with teaching instruction. Lisandro Ivy MD IV THERAPY ORDERABLES Edited Result - Final * TRANSTHORACIC ECHOCARDIOGRAM (TTE) COMPLETE (01/26/2025 8:27 AM EDT) BSA 1.46 m2 CV PACS Aortic Root 2.9 cm CV PACS Aortic Root Index 2.01 cm/m2 CV PACS Anatomical Region Laterality Modality Ultrasound Narrative 01/26/2025 12:14 PM EDT Technically difficult study. Limited exam due to the fact that the patient was noncooperative with the examination. Left ventricle cavity size is normal. Left ventricular systolic function is in the normal range with an ejection fraction of 55-60%. Unable to evaluate for the presence of valvular stenosis or regurgitation due to limited exam. If there is ongoing clinical concern about the possibility of endocarditis then would recommend to consider further evaluation with a transesophageal echocardiogram. Left Ventricle Left ventricle cavity size is normal. Wall thickness is normal. Systolic function is normal with an ejection fraction of 55-60%. Regional LV wall motion cannot be accurately assessed due to limited exam. Unable to assess diastolic function. Right Ventricle Right ventricle was not well visualized. Left Atrium Left atrium was not well visualized. Right Atrium Right atrium was not well visualized. There is a prominent Eustachian valve. Mitral Valve The leaflets are mildly thickened. There is moderate annular calcification. There is trace regurgitation. Mitral stenosis not assessed due to limited exam. Tricuspid Valve The leaflets exhibit normal excursion. There is mild regurgitation. There is no evidence of tricuspid valve stenosis. Cannot assess RVSP. Aortic Valve The aortic valve is trileaflet. The leaflets are moderately calcified. There is no regurgitation. Aortic stenosis not assessed due to limited exam. Pulmonic Valve There is trace pulmonic valve regurgitation. There is no evidence of pulmonic valve stenosis. Ascending Aorta The aorta appears normal in size. Pericardium Pericardium appears normal. There is no pericardial effusion. Study Details Overall the study quality was technically difficult. us Lisandro Ivy MD CV ECHO PROCEDURES Fin al Result * CT Chest wo Contrast (01/25/2025 8:37 PM EDT) Anatomical Region Laterality Modality Body Computed Tomogra phy 01/25/2025 9:14 PM EDT Impressions 01/25/2025 9:14 PM EDT 1. No focal infiltrate to suggest pneumonia. 2. 5 mm noncalcified right upper lobe nodule. Follow-up recommended as per Fleischner society criteria. 3. Atherosclerotic vascular disease and significant coronary artery disease. This document has been electronically signed by: Pearl Pierce MD on 01/25/2025 21:14:14 Narrative 01/25/2025 9:14 PM EDT INDICATION: Sepsis CT chest without contrast Comparison: None provided Findings: Limited evaluation without intravenous contrast. The heart is top-normal in size. No pericardial effusion. Atherosclerotic vascular disease of thoracic aorta with no evidence of an aneurysm. Significant coronary artery disease. Bilateral interstitial changes. No consolidation, pleural effusion or pneumothorax. A 5 mm noncalcified nodule seen on image 26/114 series 602. 1 cm right thyroid lobe hypodense nodule. Thoracic esophagus within normal limits Images of upper abdomen again demonstrate nodular liver suggestive of cirrhosis, cholecystectomy, atrophy of right kidney and prominence of right renal pelvis similar to previous examination. Significant stool in visualized part of the colon. No acute fracture. Stable moderate compression fracture of T12 vertebral body. Procedure Note Pearl Pierce MD - 01/25/2025 INDICATION: Sepsis CT chest without contrast Comparison: None provided Findings: Limited evaluation without intravenous contrast. The heart is top-normal in size. No pericardial effusion. Atherosclerotic vascular disease of thoracic aorta with no evidence ofan aneurysm. Significant coronary artery disease. Bilateral interstitial changes. No consolidation, pleural effusion or pneumothorax. A 5 mm noncalcified nodule seen on image 26/114 [id number]. 1 cm right thyroid lobe hypodense nodule. Thoracic esophagus withinnormal limits Images of upper abdomen again demonstrate nodular liver suggestive of cirrhosis, cholecystectomy, atrophy of right kidney and prominence of right renal pelvis similar to previous examination. Significant stool in visualized part of the colon. No acute fracture. Stable moderate compression fracture of T12 vertebral body. IMPRESSION: 1. No focal infiltrate to suggest pneumonia. 2. 5 mm noncalcified right upper lobe nodule. Follow-up recommended asper Fleischner society criteria. 3. Atherosclerotic vascular disease and significant coronary artery disease. This document has been electronically signed by: Pearl Pierce MD on 01/25/2025 21:14:14 Lisandro Ivy MD IMG CT PROCEDURES Kristin l Result * Gentamicin level random (01/25/2025 4:23 AM EDT) [facility] Gentamicin Rm 6.6 mcg/mL LAB CHEMISTRY METHOD 01/25/2025 5:06 AM EDT [facility] Blood Venous blood specimen / Unknown Venipuncture / Unknown 01/25/2025 4:23 AM EDT 01/25/2025 4:37 AM EDT Christi CABRERA LAB BLOOD ORDERABLES Final Re sult [facility] [address] [place] [address], [place] [phone] * Light blue tube (01/24/2025 11:58 PM EDT) Only the most recent of2 resultswithin the time period is included. [facility] Extra Tube Hold for add-ons. 01/25/2025 2:01 AM EDT [facility] Comment:Auto resulted. Blood Venous blood specimen / Unknown Venipuncture / Unknown 01/24/2025 11:58 PM EDT 01/25/2025 12:12 AM EDT Liya Cook MD LAB BLOOD ORDERABLES Final Res ult Performing Organization Address City/[facility]/ZIP Co de Phone Number [facility] [address] [place] [address], [place] [phone] * Lactate (01/24/2025 11:58 PM EDT) Only the most recent of2 resultswithin the time period is included. Lactate 1.8 0.4 - 2.0 mmol/L LAB CHEMISTRY METHOD 01/25/2025 12:44 AM EDT [facility] Blood Venous blood specimen / Unknown Venipuncture / Unknown 01/24/2025 11:58 PM EDT 01/25/2025 12:09 AM EDT Jeet CABRERA LAB BLOOD ORDERABLES Final Resu lt Performing Organization Address [facility] Co de Phone Number [facility] [address] [place] [address], [place] [phone] * Matthew urine culture tube (01/24/2025 5:50 PM EDT) Only the most recent of3 resultswithin the time period is included. Extra Tube Hold for add-ons. 01/24/2025 8:01 PM EDT [facility] Comment:Auto resulted. Urine Urine specimen obtained by clean catch procedure / Unknown 01/24/2025 5:50 PM EDT 01/24/2025 6:56 PM EDT Uriel Watson MD LAB URINE ORDERABLES Fin al Result Performing Organization Address City/[facility]/ZIP Co de Phone Number [facility] [address] [place] [address], [place] [phone] * CT Abdomen Pelvis w Contrast (01/24/2025 2:39 PM EDT) Only the most recent of3 resultswithin the time period is included. Anatomical Region Laterality Modality Body Computed Tomogra phy 01/24/2025 2:55 PM EDT Impressions 01/24/2025 3:04 PM EDT Impression: 1. Cystitis/possible upper urinary tract infection. The appearance is similar to the 12/23/24 exam. 2. No acute process involving the bowel is identified. There is abundant stool throughout the colon and rectum suggesting constipation. 3. Cirrhotic liver [place] ([id number]) -------- FINAL REPORT -------- Dictated By: Christy Tomlin Dictated Date: 01/24/2025 14:55 ET Assigned Physician: Christy Tomlin Reviewed and Electronically Signed By: Christy Tomlin Signed Date: 01/24/2025 15:04 ET Workstation ID: [id number] Transcribed By: Self Edit Transcribed Date: 01/24/2025 14:55 ET Narrative 01/24/2025 3:04 PM EDT History: Abdominal pain, acute, nonlocalized. Recent C. difficile infection. Comparison: 01/02/25 Technique: Helical volumetric imaging of the abdomen and pelvis was performed without oral contrast and during the uneventful intravenous administration of 90 cc Isovue-370. DLP: 526.12 mGy/cm [employer] VCT Iterative reconstruction technique Findings: A cirrhotic hepatic configuration is again demonstrated. No hepatic mass is seen. The portal vein remains patent. Cholecystectomy sequela are noted. No evidence of biliary obstruction is seen. Spleen, pancreas and adrenal glands are unremarkable. The right kidney is small, with multiple cortical scars and a poor nephrogram. The left kidney remains normal in size. Right renal cortical cysts are again noted. Fullness of the right renal pelvis is without significant change. There is diffuse thickening and enhancement of the urothelium on the right, similar to the 12/23/24 study, with upper urinary tract infection not excluded. The abdominal aorta and its branches are atherosclerotic. No aortic aneurysm is seen. There is no ascites. There are subcentimeter retroperitoneal lymph nodes which are without significant change. No developing lymphadenopathy is seen. The uterus and adnexa appear grossly unremarkable for age. The moderately distended urinary bladder exhibits diffuse mural thickening and mucosal hyperenhancement, compatible with cystitis, similar to the 12/23/24 study. No evidence of bowel obstruction is seen. There is abundant stool within the colon and rectum, suggesting constipation. No bowel wall thickening or perienteric or pericolonic fat stranding is apparent. Surgical hardware is partially imaged in the left hip, consistent with old fracture fixation. A severe compression fracture of L4, with mild retropulsion of the superior endplate, is without significant change. A similar severe compression fracture of T12 is noted, also with mild retropulsion of the superior endplate, unchanged. Procedure Note Christy Tomlin MD - 01/24/2025 History: Abdominal pain, acute, nonlocalized. Recent C. difficileinfection. Comparison: 01/02/25 Technique: Helical volumetric imaging of the abdomen and pelvis wasperformed without oral contrast and during the uneventful intravenousadministration of 90 cc Isovue-370. DLP: 526.12 mGy/cm [employer] VCT Iterative reconstruction technique Findings: A cirrhotic hepatic configuration is again demonstrated. No hepatic massis seen. The portal vein remains patent. Cholecystectomy sequela arenoted. No evidence of biliary obstruction is seen. Spleen, pancreas and adrenal glands are unremarkable. The right kidney is small, with multiple cortical scars and a poornephrogram. The left kidney remains normal in size. Right renal corticalcysts are again noted. Fullness of the right renal pelvis is withoutsignificant change. There is diffuse thickening and enhancement of theurothelium on the right, similar to the 12/23/24 study, with upper urinarytract infection not excluded. The abdominal aorta and its branches are atherosclerotic. No aorticaneurysm is seen. There is no ascites. There are subcentimeterretroperitoneal lymph nodes which are without significant change. Nodeveloping lymphadenopathy is seen. The uterus and adnexa appear grosslyunremarkable for age. The moderately distended urinary bladder exhibits diffuse mural thickeningand mucosal hyperenhancement, compatible with cystitis, similar to the12/23/24 study. No evidence of bowel obstruction is seen. There is abundant stool withinthe colon and rectum, suggesting constipation. No bowel wall thickening orperienteric or pericolonic fat stranding is apparent. Surgical hardware is partially imaged in the left hip, consistent with oldfracture fixation. A severe compression fracture of L4, with mildretropulsion of the superior endplate, is without significant change. Asimilar severe compression fracture of T12 is noted, also with mildretropulsion of the superior endplate, unchanged. IMPRESSION: Impression: 1. Cystitis/possible upper urinary tract infection. The appearance issimilar to the 12/23/24 exam. 2. No acute process involving the bowel is identified. There is abundantstool throughout the colon and rectum suggesting constipation. 3. [place] ([id number]) -------- FINAL REPORT -------- Dictated By: Christy Tomlin Dictated Date: 01/24/2025 14:55 ET Assigned Physician: Christy Tomlin Reviewed and Electronically Signed By: Christy Tomlin Signed Date: 01/24/2025 15:04 ET Workstation ID: [id number] Transcribed By: Self Edit Transcribed Date: 01/24/2025 14:55 ET Danis Alexander MD [facility] [place] Final Result * [id number], RSV, Influenza A and B qualitative RT-PCR (01/24/2025 1:36 PM EDT) Influenza A PCR Not Detected Not Detected LAB MICROBIOLOGY METHOD 01/24/2025 2:31 PM EDT [facility] Influenza B PCR Not Detected Not Detected LAB MICROBIOLOGY METHOD 01/24/2025 2:31 PM EDT [facility] RSV PCR Not Detected Not Detected LAB MICROBIOLOGY METHOD 01/24/2025 2:31 PM EDT [facility] SARS COV-2 Not Detected Not Detected LAB MICROBIOLOGY METHOD 01/24/2025 2:31 PM EDT [facility] Swab Both anterior nares / Unknown Non-blood Collection / Unknown 01/24/2025 1:36 PM EDT 01/24/2025 1:49 PM EDT Narrative [facility] - 01/24/2025 2:31 PM EDT Disclaimer: Testing was performed using the [employer] GeneXpert Xpress SARS-CoV-2 _Flu_RSV PLUS PCR assay. The manner in which this information is used to guide patient care is the responsibility of the healthcare provider. Results should be correlated with the clinical history, epidemiological data, and other data available to the clinician evaluating the patient. Negative results do not preclude infection. This test has been authorized by the FDA under an Emergency Use Authorization (EUA). This test is only authorized for the duration of time the declaration that circumstances exist justifying the authorization of the emergency use of in vitro diagnostic tests for detection of SARS-CoV-2 virus and/or diagnosis of COVID-19 infection under section 564 (b) (1) of the Act, 21 U.S.C 360bbb-3 (b) (1), unless the authorization is terminated or revoked sooner. Reference Range: Not Detected Fact sheet for Healthcare providers can be found at https://www.fda.gov/media/070218/download. Fact sheet for Healthcare patients can be found at https://www.fda.gov/media/201306/download. Danis Alexander MD LAB MICROBIOLOGY - [facility] Final Result [facility] [address] [place] [address], * (ABNORMAL) Blood culture pathogens molecular study (01/24/2025 1:36 PM EDT) Only the most recent of2 resultswithin the time period is included. Staphylococcus epidermidis Detected (A) Not Detected LAB MICROBIOLOGY METHOD 01/25/2025 1:15 PM EDT [facility] mecA/C Detected (A) Not Detected LAB MICROBIOLOGY METHOD 01/25/2025 1:15 PM EDT [facility] Comment:mecA/C Gene Detected : Indicates Methicillin Resistant Staphylococcus. Blood Venous blood specimen / Unknown Venipuncture / Unknown 01/24/2025 1:36 PM EDT 01/24/2025 1:50 PM EDT Danis Alexander MD LAB MICROBIOLOGY - GENERAL ORDE RABLES Final Result Performing Organization Address [facility] Co de Phone Number [facility] [address] [place] [address], [place] [phone] * (ABNORMAL) Lactate, with reflex (01/24/2025 1:30 PM EDT) Only the most recent of3 resultswithin the time period is included. [facility] LACTIC ACID 2.1(H) 0.4 - 2.0 mmol/L LAB CHEMISTRY METHOD 01/24/2025 2:22 PM EDT [facility] Blood Venous blood specimen / Unknown Venipuncture / Unknown 01/24/2025 1:30 PM EDT 01/24/2025 1:51 PM EDT Danis Alexander MD LAB BLOOD ORDERABLES Final Resu lt Performing Organization Address [facility]/ZIP Co de Phone Number [facility] [address] [place] [address], [place] [phone] * Troponin I High Sensitivity (01/24/2025 1:30 PM EDT) Only the most recent of4 resultswithin the time period is included. [facility] High Sensitivity Troponin I 10 <=54 ng/L LAB CHEMISTRY METHOD 01/24/2025 2:19 PM EDT [facility] Blood Venous blood specimen / Unknown Venipuncture / Unknown 01/24/2025 1:30 PM EDT 01/24/2025 1:51 PM EDT Narrative [facility] - 01/24/2025 2:19 PM EDT High levels of biotin in samples may falsely decrease hsTroponin values. Use caution when interpreting hsTroponin results in patients taking biotin who exhibit renal impairment (eGFR <60) or in patients taking more than 20 mg/day of biotin. Danis Alexander MD LAB BLOOD ORDERABLES Final Resu lt Performing Organization Address [facility] Co de Phone Number [facility] [address] [place] [address], * Ammonia (01/24/2025 1:30 PM EDT) Only the most recent of2 resultswithin the time period is included. Ammonia 15 11 - 35 mcmol/L LAB CHEMISTRY METHOD 01/24/2025 2:14 PM EDT [facility] Blood Venous blood specimen / Unknown Venipuncture / Unknown 01/24/2025 1:30 PM EDT 01/24/2025 1:50 PM EDT Danis Alexander MD LAB BLOOD ORDERABLES Final Resu lt Performing Organization Address [facility] de Phone Number [facility] [address] [place] [address], [place] [phone] * Vitamin D 25 hydroxy (01/03/2025 6:32 AM EDT) Vit D, 25-Hydroxy 43.7 30.0 - 80.0 ng/mL LAB CHEMISTRY METHOD 01/03/2025 9:48 AM EDT [facility] Blood Venous blood specimen / Unknown Venipuncture / Unknown 01/03/2025 6:32 AM EDT 01/03/2025 6:40 AM EDT Ciara CABRERA LAB BLOOD ORDERABLES Final Result Performing Organization Address [facility] Co de Phone Number [facility] [address] [place] [address], [place] [phone] * Lavender tube (01/02/2025 8:49 PM EDT) Only the most recent of2 resultswithin the time period is included. Extra Tube Hold for add-ons. 01/02/2025 10:03 PM EDT [facility] Comment:Auto resulted. Blood Venous blood specimen / Unknown 01/02/2025 8:49 PM EDT 01/02/2025 8:59 PM EDT us Herberth Estrada MD LAB BLOOD ORDERABLES Final Resul t [facility] [address] [place] [address], [place] [phone] * CT Abdomen Pelvis wo Contrast (01/02/2025 8:06 PM EDT) Anatomical Region Laterality Modality Body Computed Tomogra phy 01/02/2025 9:12 PM EDT Impressions 01/02/2025 9:12 PM EDT 1. No acute abdominopelvic findings. No significant change from the recent prior. 2. Redemonstrated cirrhotic liver, right renal cortical atrophy, and persistent mild right hydroureteronephrosis. This document has been electronically signed by: Alexi Godinez MD on 01/02/2025 21:12:58 Narrative 01/02/2025 9:12 PM EDT INDICATION: Abdominal pain, acute, nonlocalized CT abdomen and pelvis without contrast Comparison: CT - CT ABD PEL W CONTRAST - 12/23/24 23:43 EDT Findings: The lung bases are clear. Prior cholecystectomy. Redemonstrated cirrhotic liver. Unremarkable spleen and adrenals. Redemonstrated right renal cortical atrophy and renal cysts. Persistent mild right hydroureteronephrosis. No bowel obstruction, pneumoperitoneum, or pneumatosis. Redemonstrated moderate circumferential atherosclerotic calcification of the normal caliber abdominal aorta with involvement of the mesenteric, renal, and iliac branches. Pelvic contents unremarkable. Prior instrumented fixation of an old left hip fracture is again noted, with persistent varus deformity. Unchanged chronic severe T12 and L4 compression fracture deformity. Procedure Note Alexi Godinez - 01/02/2025 INDICATION: Abdominal pain, acute, nonlocalized CT abdomen and pelvis without contrast Comparison: CT - CT ABD PEL W CONTRAST - 12/23/24 23:43 EDT Findings: The lung bases are clear. Prior cholecystectomy. Redemonstrated cirrhotic liver. Unremarkable spleen and adrenals. Redemonstrated right renal cortical atrophy and renal cysts. Persistent mild right hydroureteronephrosis. No bowel obstruction, pneumoperitoneum, or pneumatosis. Redemonstrated moderate circumferential atherosclerotic calcification of the normal caliber abdominal aorta with involvement of the mesenteric, renal, and iliac branches. Pelvic contents unremarkable. Prior instrumented fixation of an old left hip fracture is again noted, with persistent varus deformity. Unchanged chronic severe T12 and L4 compression fracture deformity. IMPRESSION: 1. No acute abdominopelvic findings. No significant change from therecent prior. 2. Redemonstrated cirrhotic liver, right renal cortical atrophy, and persistent mild right hydroureteronephrosis. This document has been electronically signed by: Alexi Godinez MD on 01/02/2025 21:12:58 Farhat Epps MD IM CT PROCEDURES Final Res ult * Gastrointestinal pathogens molecular study (01/02/2025 7:05 PM EDT) Campylobacter Detection by PCR Not Detected Not Detected LAB MICROBIOLOGY METHOD 5 9:30 PM EDT [facility] Plesiomonas shigelloides Detection by PCR Not Detected Not Detected LAB MICROBIOLOGY METHOD 5 9:30 PM EDT [facility] Salmonella Detection by PCR Not Detected Not Detected LAB MICROBIOLOGY METHOD 5 9:30 PM EDT [facility] Vibrio Detection by PCR Not Detected Not Detected LAB MICROBIOLOGY METHOD 5 9:30 PM EDT [facility] Vibrio cholerae Detection by PCR Not Detected Not Detected LAB MICROBIOLOGY METHOD 5 9:30 PM EDT [facility] Yersinia enterocolitica Detection by PCR Not Detected Not Detected LAB MICROBIOLOGY METHOD 5 9:30 PM EDT [facility] Enteroaggregative E coli EAEC Detection by PCR Not Detected Not Detected LAB MICROBIOLOGY METHOD 5 9:30 PM EDT [facility] Enteropathogenic E coli EPEC Detection Not Detected Not Detected LAB MICROBIOLOGY METHOD 5 9:30 PM EDT [facility] Enterotoxigenic E coli ETEC LTST Detection Not Detected Not Detected LAB MICROBIOLOGY METHOD 5 9:30 PM EDT [facility] Shiga-like toxin producing E coli STEC STX1 STX2 Det Not Detected Not Detected LAB MICROBIOLOGY METHOD 5 9:30 PM EDT [facility] Shigella Enteroinvasive E coli EIEC Detection Not Detected Not Detected LAB MICROBIOLOGY METHOD 5 9:30 PM EDT [facility] Cryptosporidium Detection by PCR Not Detected Not Detected LAB MICROBIOLOGY METHOD 5 9:30 PM EDT [facility] Cyclospora cayetanensis Detection by PCR Not Detected Not Detected LAB MICROBIOLOGY METHOD 5 9:30 PM EDT [facility] Entamoeba histolytica Detection by PCR Not Detected Not Detected LAB MICROBIOLOGY METHOD 5 9:30 PM EDT [facility] Giardia lamblia Detection by PCR Not Detected Not Detected LAB MICROBIOLOGY METHOD 5 9:30 PM EDT [facility] Adenovirus F 40 41 Detection by PCR Not Detected Not Detected LAB MICROBIOLOGY METHOD 5 9:30 PM EDT [facility] Astrovirus Detection by PCR Not Detected Not Detected LAB MICROBIOLOGY METHOD 5 9:30 PM EDT [facility] Norovirus GI GII Detection by PCR Not Detected LAB MICROBIOLOGY METHOD 5 9:30 PM EDT [facility] Sapovirus Detection by PCR Not Detected Not Detected LAB MICROBIOLOGY METHOD 9:30 PM EDT [facility] Rotavirus A Detection by PCR Not Detected Not Detected LAB MICROBIOLOGY METHOD 9:30 PM EDT [facility] Stool Rectum structure / Unknown Non-blood Collection / Unknown 01/02/2025 7:05 PM EDT 01/02/2025 7:43 PM EDT Narrative [facility] - 01/02/2025 9:30 PM EDT PCR testing is much more sensitive than traditional techniques and allows for the detection of low numbers of stool pathogens. The clinical correlation of PCR results with the need for treatment and clinical outcomes has not been established. Therefore the results of PCR testing for stool pathogens must be taken into clinical context when making treatment decisions. This is a diagnostic test only, repeat testing for cure is not advised. You may consider infectious disease consult for additional guidance. Testing Performed by [facility] [facility] Farhat Epps MD LAB MICROBIOLOGY - GENERAL ORDERABLES Final Result [facility] [address] [place] [address], [place] [phone] * (ABNORMAL) Clostridium difficile toxin (01/02/2025 7:05 PM EDT) Only the most recent of2 resultswithin the time period is included. Clostridium difficile GDH Antigen Positive( A) Negative 01/02/2025 8:28 PM EDT [facility] C difficile Toxins A+B, EIA Positive( AA) Negative 01/02/2025 8:28 PM EDT [facility] Comment: CRITICAL RESULT POSITIVE FOR TOXIN PRODUCING CLOSTRIDIOIDES DIFFICILE, NO ADDITIONAL TESTING IS NECESSARY. REPEAT SAMPLES SHOULD NOT BE SUBMITTED FOR TEST OF CURE. Stool Rectum structure / Unknown Non-blood Collection / Unknown 01/02/2025 7:05 PM EDT 01/02/2025 7:44 PM EDT Farhat Epps MD LAB MICROBIOLOGY - GENERAL ORDERABLES Final Result [facility] [address] [place] [address], * Respiratory virus panel molecular study (01/02/2025 6:32 PM EDT) Only the most recent of2 resultswithin the time period is included. Pathologist [facility] Adenovirus Detection by PCR Not Detected Not Detected LAB MICROBIOLOGY METHOD 01/02/2025 8:40 PM EDT [facility] Influenza A PCR Not Detected Not Detected LAB MICROBIOLOGY METHOD 01/02/2025 8:40 PM EDT [facility] Influenza B PCR Not Detected Not Detected LAB MICROBIOLOGY METHOD 01/02/2025 8:40 PM EDT [facility] Coronavirus 229E Not Detected Not Detected LAB MICROBIOLOGY METHOD 01/02/2025 8:40 PM EDT [facility] Coronavirus HKU1 Not Detected Not Detected LAB MICROBIOLOGY METHOD 01/02/2025 8:40 PM EDT [facility] Coronavirus OC43 Not Detected Not Detected LAB MICROBIOLOGY METHOD 01/02/2025 8:40 PM EDT [facility] Coronavirus NL63 Not Detected Not Detected LAB MICROBIOLOGY METHOD 01/02/2025 8:40 PM EDT [facility] Parainfluenza Virus 1 Not Detected Not Detected LAB MICROBIOLOGY METHOD 01/02/2025 8:40 PM EDT [facility] Parainfluenza Virus 2 Not Detected Not Detected LAB MICROBIOLOGY METHOD 01/02/2025 8:40 PM EDT [facility] Parainfluenza Virus 3 Not Detected Not Detected LAB MICROBIOLOGY METHOD 01/02/2025 8:40 PM EDT [facility] Parainfluenza Virus 4 Not Detected Not Detected LAB MICROBIOLOGY METHOD 01/02/2025 8:40 PM EDT [facility] RSV PCR Not Detected Not Detected LAB MICROBIOLOGY METHOD 01/02/2025 8:40 PM EDT [facility] Human Metapneumovirus A and B Not Detected Not Detected LAB MICROBIOLOGY METHOD 01/02/2025 8:40 PM EDT [facility] Rhinovirus/Entero virus Not Detected Not Detected LAB MICROBIOLOGY METHOD 01/02/2025 8:40 PM EDT [facility] Bordetella pertussis Not Detected Not Detected LAB MICROBIOLOGY METHOD 01/02/2025 8:40 PM EDT [facility] Bordetella parapertussis Not Detected Not Detected LAB MICROBIOLOGY METHOD 01/02/2025 8:40 PM EDT [facility] Mycoplasma pneumo by PCR Not Detected Not Detected LAB MICROBIOLOGY METHOD 01/02/2025 8:40 PM EDT [facility] Chlamydia pneumoniae Not Detected Not Detected LAB MICROBIOLOGY METHOD 01/02/2025 8:40 PM EDT [facility] SARS COV-2 Not Detected Not Detected LAB MICROBIOLOGY METHOD 01/02/2025 8:40 PM EDT [facility] Swab Both anterior nares / Unknown Non-blood Collection / Unknown 01/02/2025 6:32 PM EDT 01/02/2025 7:43 PM EDT [facility] - 01/02/2025 8:40 PM EDT Testing was performed using the [employer] Respiratory Pathogen PCR Assay. All results must be correlated with the clinical findings. Results should not be used as the sole basis for diagnosis. False Negative results may occur from the presence of sequence variants in the region targeted by the assay or the presence of inhibitors. Results may be affected by concurrent antiviral/antimicrobial therapy or levels of organisms that are below the limit of detection. us Farhat Epps MD LAB MICROBIOLOGY - GENERAL ORDERABLES Final Result [facility] [address] [place] [address], * Lipase (01/02/2025 6:17 PM EDT) Only the most recent of3 resultswithin the time period is included. Pathologist [facility] Lipase 26 13 - 75 unit/L LAB CHEMISTRY METHOD 01/02/2025 6:55 PM EDT [facility] Blood Venous blood specimen / Unknown Venipuncture / Unknown 01/02/2025 6:17 PM EDT 01/02/2025 6:25 PM EDT Farhat Epps MD LAB BLOOD ORDERABLES Final Result Performing Organization Address City/[facility]/ZIP Co de Phone Number [facility] [address] [place] [address], [place] [phone] * (ABNORMAL) Anti-Xa - Every 6 Hours (12/27/2024 5:31 AM EDT) Only the most recent of8 resultswithin the time period is included. [facility] Heparin Anti-Xa <0.04(L) 0.30 - 0.70 I Unit/mL LAB COAGULATION METHOD 12/27/2024 6:39 AM EDT [facility] Blood Venous blood specimen / Unknown Venipuncture / Unknown 12/27/2024 5:31 AM EDT 12/27/2024 6:13 AM EDT Narrative [facility] - 12/27/2024 6:39 AM EDT Therapeutic range listed is for Unfractionated Heparin. LMW Heparin therapeutic range: 0.50-1.20 IU/mL Miguel Grubbs MD LAB BLOOD ORDERABLES Final Re sult [facility] [address] [place] [address], [place] [phone] * (ABNORMAL) TRANSTHORACIC ECHOCARDIOGRAM (TTE) COMPLETE W/ CONTRAST (12/25/2024 10:28 AM EDT) [facility] Left Atrium Minor Blanco 4.6 cm CV PACS Left Atrium Major Blanco 3.8 cm CV PACS LA Area Sys (A2C) 12 cm2 CV PACS LA Area Sys (A4C) 10 cm2 CV PACS LA Volume (BP) 26 mL CV PACS AV Mean Gradient 9 mmHg CV PACS Ao VTI 39.1 cm CV PACS AV Peak German 2.2 m/s CV PACS AV Peak Gradient 19 mmHg CV PACS AV Area Continuity Equation 2.2 cm2 CV PACS AV Area Peak Velocity 1.8 cm2 CV PACS Aortic Sinus Valsalva 2.6 cm CV PACS IVSD 1.1(A) 0.6 - 0.9 cm CV PACS LVIDD 3.1(A) 3.8 - 5.2 cm CV PACS LVIDS 2.5 2.2 - 3.5 cm CV PACS LVOT Diameter 2.0 cm CV PACS LVOT Mean German 0.9 m/s CV PACS LVOT Mean Grad 3 mmHg CV PACS LVOT Peak VTI 27.2 cm CV PACS LVOT Peak German 1.3 m/s CV PACS LVOT Peak Gradient 6 mmHg CV PACS LVPWD 1.0(A) 0.6 - 0.9 cm CV PACS MV E' Tissue Velocity Lateral 10 cm/s CV PACS MV E' Tissue Velocity Septal 8 cm/s CV PACS LVOT Area 3.1 cm2 CV PACS LVOT Stroke Volume 85 mL CV PACS E Wave Deceleration Time 173 119 - 242 ms CV PACS MV Peak A German 1.29 m/s CV PACS MV Peak E German 0.72 m/s CV PACS RV S' 10 cm/s CV PACS E/E' Ratio Septal 9 CV PACS E/E' Ratio Averaged 8 CV PACS LVOT Stroke Index 57 mL/m2 CV PACS Relative Wall Thickness ratio 0.65 CV PACS LVOT:AV VTI Index 0.70 CV PACS FS 19 % CV PACS LV Mass 2D 93 g CV PACS LVOT flow 283 mL/s CV PACS SAGE Index (VTI) 1.47 cm2/m2 CV PACS SAGE Index (Pk German) 1.21 cm2/m2 CV PACS LVIDD Index 2.08 cm/m2 CV PACS LVIDS Index 1.68 cm/m2 CV PACS AV Velocity Ratio 0.59 CV PACS E/A Ratio 0.6 CV PACS E/E' Ratio Lateral 7 CV PACS LA Volume Index (BP) 17 mL/m2 CV PACS LV Mass Index 2D 62 g/m2 CV PACS BSA 1.46 m2 CV PACS Anatomical Region Laterality Modality Ultrasound Narrative 12/25/2024 1:48 PM EDT Left Ventricle: Systolic function is normal with an ejection fraction of 60-65%. There are no regional LV wall motion abnormalities. Right ventricle cavity is normal. Right ventricular systolic function is normal. RV S' 10 cm/sec. Aortic Valve: There is mild stenosis. The aortic valve peak velocity is 2.2 m/s. The velocity ratio is 0.59. The mean gradient is 9 mmHg. The peak gradient is 19 mmHg. The aortic valve area by continuity equation is 2.2 cm2. Left Ventricle Left ventricle cavity size is normal. There is mild hypertrophy. Systolic function is normal with an ejection fraction of 60-65%. There are no regional LV wall motion abnormalities. Unable to assess diastolic function. Right Ventricle Right ventricle cavity appears normal. Systolic function is normal. RV S' 10 cm/sec. Left Atrium Left atrium cavity size is normal. Right Atrium Right atrium cavity is normal. There is a prominent Eustachian valve. IVC/SVC Inferior vena cava structure is normal. RA pressures is estimated to be 3 mmHg (IVC diameter <21 mm and decreases >50% during inspiration). Mitral Valve The leaflets are mildly thickened. There is severe posterior annular calcification. There is trace regurgitation. There is no evidence of mitral valve stenosis. Tricuspid Valve The leaflets exhibit normal excursion. There is no regurgitation or stenosis. Cannot assess RVSP. Aortic Valve Number of aortic valve cusps cannot be determined. The leaflets are moderately calcified. There is no regurgitation. There is mild stenosis. The aortic valve peak velocity is 2.2 m/s. The velocity ratio is 0.59. The mean gradient is 9 mmHg. The peak gradient is 19 mmHg. The aortic valve area by continuity equation is 2.2 cm2. Pulmonic Valve Visualized portions of the pulmonic valve appear normal. There is no regurgitation or stenosis. Ascending Aorta The aorta appears normal in size. Pericardium There is an anterior fat pad. There is no pericardial effusion. Study Details Overall the study quality was technically difficult. Definity contrast was given to enhance imaging. us Ori Sanchez MD CV ECHO PROCEDURES Fin al Result * XR Chest 1 View (12/23/2024 11:35 PM EDT) Anatomical Region Laterality Modality Body Radiographic Malena ging 12/24/2024 9:07 AM EDT Impressions 12/24/2024 9:08 AM EDT FINDINGS/IMPRESSION: Opacity in the right upper lobe is likely overlying the patient. Otherwise no consolidation or effusion. No congestive heart failure. Cardiomegaly with coronary stents. Degenerative osseous changes. -------- FINAL REPORT -------- Dictated By: Nohelia Hood Dictated Date: 12/24/2024 09:07 ET Assigned Physician: Nohelia Hood Reviewed and Electronically Signed By: Nohelia Hood Signed Date: 12/24/2024 09:08 ET Workstation ID: [id number] Transcribed By: Self Edit Transcribed Date: 12/24/2024 09:07 ET Narrative 12/24/2024 9:08 AM EDT XR CHEST 1 VIEW INDICATION: pain TECHNIQUE: XR CHEST 1 VIEW COMPARISON: No priors available. Procedure Note Nohelia Hood MD - 12/24/2024 XR CHEST 1 VIEW INDICATION: pain TECHNIQUE: XR CHEST 1 VIEW COMPARISON: No priors available. IMPRESSION: FINDINGS/IMPRESSION: Opacity in the right upper lobe is likely overlyingthe patient. Otherwise no consolidation or effusion. No congestive heartfailure. Cardiomegaly with coronary stents. Degenerative osseouschanges. -------- FINAL REPORT -------- Dictated By: Nohelia Hood Dictated Date: 12/24/2024 09:07 ET Assigned Physician: Nohelia Hood Reviewed and Electronically Signed By: Nohelia Hood Signed Date: 12/24/2024 09:08 ET Workstation ID: [id number] Transcribed By: Self Edit Transcribed Date: 12/24/2024 09:07 ET us Robert Khanna MD IMG XR PROCEDURES Final Res ult * (ABNORMAL) Urinalysis with reflex microscopic and culture (12/23/2024 11:11 PM EDT) Only the most recent of2 resultswithin the time period is included. Specific Locke Urine 1.018 1.003 - 1.030 LAB URINALYSIS - AUTOMATED METHOD 12/24/2024 12:14 AM [facility] pH, Urine 6.5 5.0 - 8.0 pH LAB URINALYSIS - AUTOMATED METHOD 12/24/2024 12:14 AM [facility] Leukocytes, Urine Large(A) Negative LAB URINALYSIS - AUTOMATED METHOD 12/24/2024 12:14 AM [facility] Nitrite, Urine Negative Negative LAB URINALYSIS - AUTOMATED METHOD 12/24/2024 12:14 AM [facility] Protein, Urine 300(A) <=Trace mg/dL LAB URINALYSIS - AUTOMATED METHOD 12/24/2024 12:14 AM [facility] Glucose, Urine Negative Negative mg/dL LAB URINALYSIS - AUTOMATED METHOD 12/24/2024 12:14 AM [facility] Ketones, Urine Trace(A) Negative mg/dL LAB URINALYSIS - AUTOMATED METHOD 12/24/2024 12:14 AM [facility] Urobilinogen , Urine 1.0 0.2 - 1.0 mg/dL LAB URINALYSIS - AUTOMATED METHOD 12/24/2024 12:14 AM [facility] Bilirubin, Urine Negative Negative LAB URINALYSIS - AUTOMATED METHOD 12/24/2024 12:14 AM [facility] Blood, Urine Moderate(A) Negative LAB URINALYSIS - AUTOMATED METHOD 12/24/2024 12:14 AM [facility] RBC, Urine 15(H) 0 - 4 /HPF LAB URINALYSIS - AUTOMATED METHOD 12/24/2024 12:14 AM [facility] WBC, Urine 3,728.5(H) 0 - 4 /HPF LAB URINALYSIS - AUTOMATED METHOD 12/24/2024 12:14 AM EDT [facility] Squamous Epithelial, Urine >100(H) 0 - 60 /LPF LAB URINALYSIS - AUTOMATED METHOD 12/24/2024 12:14 AM EDT [facility] Bacteria, Urine Many(A) Negative /HPF LAB URINALYSIS - AUTOMATED METHOD 12/24/2024 12:14 AM EDT [facility] Hyaline Casts, Urine >182(H) 0 - 3 /LPF LAB URINALYSIS - AUTOMATED METHOD 12/24/2024 12:14 AM EDT [facility] Urine Urine specimen obtained by clean catch procedure / Unknown Non-blood Collection / Unknown 12/23/2024 11:11 PM EDT 12/23/2024 11:21 PM EDT Lucas Gamboa MD LAB URINE ORDERABLES Final Resul t Performing Organization Address [facility] Co de Phone Number [facility] [address] [place] [address], [place] [phone] * APTT (12/23/2024 10:20 PM EDT) aPTT 30.7 24.1 - 39.3 sec LAB COAGULATION METHOD 12/23/2024 10:44 PM EDT [facility] Blood Venous blood specimen / Unknown Venipuncture / Unknown 12/23/2024 10:20 PM EDT 12/23/2024 10:30 PM EDT us Lucas Gamboa MD LAB BLOOD ORDERABLES Final Resul t Performing Organization Address [facility]/ZIP Co de Phone Number [facility] [address] [place] [address], [place] [phone] * ME CRITICAL CARE 30-74 MINUTES (12/23/2024 9:05 PM EDT) Narrative Lucas Gamboa MD - 12/23/2024 9:05 PM EDT Lucas Gamboa MD 12/24/2024 6:59 PM Critical Care Performed by: Lucas Gamboa MD Authorized by: Lucas Gamboa MD Critical care provider statement: Critical care time (minutes): 35 Total face to face critical care time (minutes): 35 Critical care time was exclusive of: Separately billable procedures and treating other patients Critical care was necessary to treat or prevent imminent or life-threatening deterioration of the following conditions: Sepsis Critical care was time spent personally by me on the following activities: Development of treatment plan with patient or surrogate, discussions with consultants, evaluation of patient's response to treatment, ordering and review of laboratory studies, ordering and review of radiographic studies, re-evaluation of patient's condition, review of old charts, ordering and performing treatments and interventions and examination of patient Face to face critical care was time spent personally by me on the following activities: Examination of patient, re-evaluation of patient's condition, ordering and review of laboratory studies and ordering and performing treatments and interventions I assumed direction of critical care for this patient from another provider in my specialty: no Care discussed with: admitting provider Lucas Gamboa MD IN CLINIC/BEDSIDE ORDERABLES Fin al Result * (ABNORMAL) Clostridium difficile molecular study (12/09/2024 12:26 AM EDT) Clostridium difficile PCR Positive (AA) Negative LAB MICROBIOLOGY METHOD 12/09/2024 4:30 AM EDT [facility] Comment: CRITICAL RESULT POSITIVE FOR TOXIN PRODUCING CLOSTRIDIOIDES DIFFICILE, NO ADDITIONAL TESTING IS NECESSARY. REPEAT SAMPLES SHOULD NOT BE SUBMITTED FOR TEST OF CURE. Stool Rectum structure / Unknown Non-blood Collection / Unknown 12/09/2024 12:26 AM EDT 12/09/2024 2:31 AM EDT Hermelinda Hedrick NP LAB MICROBIOLOGY - GENER AL ORDERABLES Final Result [facility] [address] [place] [address], [place] [phone] * Hemoglobin A1c (04/29/2024 7:24 AM EST) Hemoglobin A1C 6.4 <6.5 % LAB CHEMISTRY METHOD 04/29/2024 12:34 PM EST [facility] Mean Bld Glu Estim. 137 mg/dL LAB CHEMISTRY METHOD 04/29/2024 12:34 PM EST [facility] Blood Venous blood specimen / Unknown Venipuncture / Unknown 04/29/2024 7:24 AM EST 04/29/2024 10:29 AM EST us Anatoliy Solano MD LAB BLOOD ORDERABLES Final Result [facility] [address] [place] [address], [place] [phone] from Last 3 Months or Most Recently Relevant to Health Maintenance Additional Health Concerns Infection Onset Date Last Indicated ESBL Comment:11/14/24 Klebsiella pneumoniae ESBL 12/23/2024 Klebsiella pneumoniae ESBL (2 negative urine cultures or 1 year since last positive culture to remove isolation precautions) 12/23/2024 01/24/2025 Insurance [employer] Advance Directives Documents on File Type Date Recorded Patient Practice Manager Expl anation Health Care Decision (hx) 08/06/2020 [...] RAMIREZ DIRECTIVE Health Care Decision (hx) 08/06/2020 Rito Burch ADVANCE DIRECTIVE * Full Code - Confirmed (Latest Code Status on File) Date Activated Date Inactivated Comments 02/01/2025 10:43 AM 02/03/2025 5:18 PM This code s tatus was ascertained in the following way: Code status discussion: discussion with healthcare customer success representative To update the patient's code status, place a code status order. Do not modify or discontinue any currently active code status orders. * Full Code - Default Date Activated Date Inactivated Comments 01/24/2025 6:46 PM 02/01/2025 10:43 AM This is ord er is used when code status has not been discussed with the patient, or code status is otherwise unknown/unconfirmed To update the patient's code status, place a code status order. Do not modify or discontinue any currently active code status orders. * Full Code - Confirmed Date Activated Date Inactivated Comments 01/02/2025 10:19 PM 01/04/2025 9:14 PM This code sta tus was ascertained in the following way: Code status discussion: discussion with healthcare customer success representative To update the patient's code status, place a code status order. Do not modify or discontinue any currently active code status orders. * Full Code - Default Date Activated Date Inactivated Comments 01/02/2025 9:32 PM 01/02/2025 10:19 PM This is order is used when code status has not been discussed with the patient, or code status is otherwise unknown/unconfirmed To update the patient's code status, place a code status order. Do not modify or discontinue any currently active code status orders. * Full Code - Default Date Activated Date Inactivated Comments 12/24/2024 1:29 AM 12/27/2024 8:14 PM This is orde r is used when code status has not been discussed with the patient, or code status is otherwise unknown/unconfirmed To update the patient's code status, place a code status order. Do not modify or discontinue any currently active code status orders. Healthcare Agents on File Name Relationship Healthcare Agent [facility] Rito Allengo [facility] Health Care Agent Care Teams Cellulose Insulation Helper Relationship Specialty Start Date End Date Lo Donato MD [address] [place] [address] PCP - General Author 01/24/25
--- OUTSIDE RECORDS SUMMARY | 2025-02-24 11:30 | XMS_ITS | Clinical Summary ---
Author Organization [facility] Address [address] [facility] [address] [place] [address] Phone Care Team Providers Care Sewage Plant Operator Name Role Phone Lo Donato MD Primary Care Provider Unava ilable Allergies No known active allergies Medications traZODone [...] mouth 1 (one) time each day Active cholecalciferol (VITAMIN D-3) 50 MCG (1999 UT) tablet 0 Active ferrous sulfate 325 (65 Fe) MG tablet Take 325 mg by mouth 1 (one) time each day with breakfast Active fluticasone (FLONASE) 50 MCG/ACT nasal spray Administer 1 spray into each nostril 2 (two) times a day Active insulin lispro (HumaLOG) 100 UNIT/ML injection Inject 16 Units under the skin 3 (three) times a day before meals Sliding scale Active Insulin Glargine (TOUJEO SOLOSTAR SC) Inject 60 Units under the skin Active linaCLOtide (LINZESS PO) Take by mouth Act carmen Active Problems Problem Noted Date Diagnosed Date Stage 3b chronic kidney disease 09/16/2024 Hypertensive chronic kidney disease stage 3 09/01 Cirrhosis of liver 09/29/2022 Coronary arteriosclerosis 09/29/2022 Unspecified dementia, unspec ified severity, without behavioral disturbance, psychotic disturbance, mood disturbance, and anxiety 09/29/2022 Transient cerebral ischemia 09/29/2022 Type 2 diabetes mellitus Essential hypertension Resolved Problems Problem Noted Date Diagnosed Date Resolved Date Stage 3a chronic kidney disease 11/08/2019 09/16/2024 Overview (05/07/2020): Update for Diagnosis Load Microalbuminuria 04/16/2021 Hyperlipidemia 04/16/2021 Neuropathy due to diabetes mellitus 04/16/2021 Encounters Date Type Department Care Team Description 01/17/2025 Orders Only [facility] [address] [phone] Panfilo Joseph MD Stage 3b chronic kidney disease (HCC); Type 2 diabetes mellitus with diabetic chronic kidney disease (HCC); Hypertensive chronic kidney disease stage 3; Other cirrhosis of liver (HCC) from Last 3 Months Family History Medical History Relation Comments Diabetes [...] Sign Reading Time Taken Comments Blood Pressure 110/62 09/16/2024 11:47 AM EDT Pulse 70 09/16/2024 11:47 AM EDT Temperature - - Respiratory Rate - - Oxygen Saturation - - Inhaled Oxygen Concentration - - Weight 71.2 kg (157 lb) 04/16/2021 3:05 PM EST Height 154.9 cm (5' 1 ) 02/15/2019 12:00 PM EDT Body Mass Index 29.66 02/15/2019 12:00 PM EDT Plan of Treatment Upcoming Encounters Date Type Department Care Team (Late st Contact Info) Description 03/02/2025 2:30 PM EDT Office Visit [facility] [address] [phone] Kanchan Hackett ARNP [address] [phone] 03/20/2025 3:15 PM EST Office Visit [facility]. [address] [phone] Panfilo Joseph MD [address] [phone] Health Maintenance Due Date Last Done Comments Breast Cancer Screening 1950 Colorectal Cancer Screening: Annual FOBT 12/22/1999 Colorectal Cancer Screening: Colonoscopy 12/22/1999 Colorectal Cancer Screening: Sigmoidoscopy 12/22/1999 Hepatitis B Vaccine (1 of 3 - Risk 3-dose series) 2010 Diabetes: Ophthalmology Exam 07/25/2019 Diabetes: Pedal Pulse Checked 07/25/2019 Diabetes: Sensory Foot Exam 07/25/2019 Diabetes: Visual Foot Exam 07/25/2019 Influenza Vaccine (#1) 2025 Diabetes: Hemoglobin A1C 04/25/2025 025, 07/01/2024, 04/29/2024, Additional history exists Pneumococcal Vaccine: 50+ Years Completed 04/07/2024, 01/15/2022, 01/15/2022 Pneumococcal Vaccine: Peds ( 0 to 5 Years) and At-Risk Patients (6 to 49 Years) Discontinued 04/07/2024, 01/15/2022, 01/15/2022 Procedures Procedure Name Priority Date/Time Associated Diagnosis Comments HEMOGLOBIN A1C Routine 04/16/2021 2:33 PM EST Stage 3a chronic kidney disease (HCC) from Last 3 Months or Most Recently Relevant to Health Maintenance Results * (ABNORMAL) Hemoglobin A1c (04/16/2021 2:33 PM EST) Hemoglobin A1C 7.7(H) (4.0-5.6) % [facility] Comment: MONITORING: In known diabetic patients, hemoglobin A1c targets should be discussed with health care provider. DIAGNOSTIC USE: The [place] Diabetes Association (ADA) and the World Health [...] Supplement 1 Testing performed or reported by [facility] [employer], a Service of [facility], [address] [place] [address] Fer Arauz MD, Founder [facility]# [id number] Blood specimen (specimen) Venous blood / Unknown 04/16/2021 2:33 PM EST 04/16/2021 2:41 PM EST us Kanchan CABRERA LAB BLOOD ORDERABLES Final Res ult [facility] from Last 3 Months or Most Recently Relevant to Health Maintenance Insurance [employer] [place] Medicaid [place] [employer] Medicare Care Teams Sewage Plant Operator Relationship Specialty Start Date End Date Lo Donato MD [address] [place] [address] PCP - General Eyeletter 10/27/24
--- OUTSIDE RECORDS SUMMARY | 2025-02-24 11:30 | XMS_ITS | Encounter Summary ---
Author Organization [employer] Address [address] [facility] [address] [place] [address] Care Team Providers Care Parking Lot Chauffeur Name Role Phone Lo Donato MD Primary Care Provider [phone] Encounter Details Date Type Department Care Team (Late st Contact Info) Description 01/26/2025 Orders Only [facility] [address] [place] [address] Provider, MD Airam Social History Tobacco Use [...] Description 03/02/2025 1:45 PM EDT Office Visit [facility] [address] [place] [address] [phone] Jennifer Campa MD [address] [place], [place] [phone] documented as of this encounter Procedures Procedure Name Priority Date/Time Associated Diagnosis Comments CT CHEST WO CONTRAST Routine 01/25/2025 1:59 PM EDT documented in this encounter Results * CT CHEST WO CONTRAST (01/25/2025 1:59 PM EDT) Anatomical Region Laterality Modality Computed Tomogra phy us Historical Provider MD ACEVES CT PROCEDURES Final R esult documented in this encounter Visit Diagnoses Not on filedocumented in this encounter Additional Health Concerns Assessment Noted Time PHQ-9 Depression Total Score: 0 09/25/19 24 11:56 AM EDT documented as of this encounter Care Teams Parking Lot Chauffeur Relationship Specialty Start Date End Date Lo Donato MD [address] [place] [address] [phone] PCP - General Family Medicine 04/25/22 [facility] 03/17/24 documented as of this encounter
--- OUTSIDE RECORDS SUMMARY | 2025-02-24 11:30 | XMS_ITS | Encounter Summary ---
Author Organization [employer] Address [address] [facility] [address] [place] [address] Care Team Providers Care Business Development Executive Name Role Phone Lo Donato MD Primary Care Provider [phone] Reason for Visit * Reason Comments Med Change Request Encounter Details Date Type Department Care Team (Late st Contact Info) Description 11/11/2024 Refill [facility] [address] [place], [place] [phone] Lo Donato MD [address] [place], [place] [phone] Social History Tobacco Use Types Packs/Day Years [...] Description 03/02/2025 1:45 PM EDT Office Visit [facility] [address] [place] [address] [phone] Jennifer Campa MD [address] [place], [place] [phone] documented as of this encounter Visit Diagnoses Not on filedocumented in this encounter Additional Health Concerns Assessment Noted Time PHQ-9 Depression Total Score: 0 09/25/19 24 11:56 AM EDT documented as of this encounter Care Teams Business Development Executive Relationship Specialty Start Date End Date Lo Donato MD [address] [place] [address] [phone] PCP - General Family Medicine 04/25/22 [facility] 03/17/24 documented as of this encounter
--- OUTSIDE RECORDS SUMMARY | 2025-02-24 11:30 | XMS_ITS | Encounter Summary ---
Author Organization [employer] Address 75 [facility] 7t [place] [address] Care Team Providers Care Geotechnical Engineering Technician Name Role Phone Lo Donato MD Primary Care Provider [phone] Reason for Visit * Reason Onset Date Comments Durable Medical Equipment 09/28/2024 FYI 09/28/2024 Encounter Details Date Type Department Care Team (Late st Contact Info) Description 09/28/2024 Telephone [facility] [address] [place], [place] [phone] Lo Donato MD 230 [place], [place] [phone] Durable Medical Equipment; FYI Social History Tobacco Use Types Packs/Day Years [...] encounter Miscellaneous Notes * Telephone Encounter - Gonzalo Walters - 09/28/2024 12:49 PM EDT Tc from Kanchan with [employer] stating she had sent a fax request for a prescription of a shower chair back on 07/27 but has not received anything back. Kanchan further stated there might a confusion since around the same time they sent a request for a wheel chair and they did receive fax back. Kanchan stated she will be faxing another request just incase, play writer forwarding message as an FYI. If any questions you can contact Kanchan at [phone]. documented in this encounter Plan of Treatment Upcoming Encounters Date Type Department Care Team (Late st Contact Info) Description 03/02/2025 1:45 PM EDT Office Visit [facility] [address] [place] [address] Jennifer Campa MD 230 [place], [place] [phone] documented as of this encounter Visit Diagnoses Not on filedocumented in this encounter Additional Health Concerns Assessment Noted Time PHQ-9 Depression Total Score: 0 09/25/19 24 11:56 AM EDT documented as of this encounter Care Teams Geotechnical Engineering Technician Relationship Specialty Start Date End Date Lo Donato MD 230 [place] [address] PCP - General Family Medicine 04/25/22 [facility] 03/17/24 documented as of this encounter
--- OUTSIDE RECORDS SUMMARY | 2025-02-24 11:30 | XMS_ITS | Encounter Summary ---
Author Organization [employer] Address 75 [facility] 7t [place] [address] Care Team Providers Care Take Out Waiter Name Role Phone Lo Donato MD Primary Care Provider [phone] Reason for Visit * Reason Comments Med Refill Encounter Details Date Type Department Care Team (Late st Contact Info) Description 02/23/2023 Refill [facility] 230 [place], [place] [phone] Essence Villa MD 230 [place], [place] [phone] Neck pain Social History Tobacco Use Types [...] Description 03/02/2025 1:45 PM EDT Office Visit [facility] [address] [place] [address] Jennifer Campa MD 230 [place], [place] [phone] documented as of this encounter Visit Diagnoses Diagnosis Neck pain Cervicalgia documented in this encounter Additional Health Concerns Assessment Noted Time PHQ-9 Depression Total Score: 11 023 10:00 AM EDT documented as of this encounter Care Teams Take Out Waiter Relationship Specialty Start Date End Date Lo Donato MD 230 [place] [address] PCP - General Family Medicine 04/25/22 [facility] 03/17/24 documented as of this encounter
--- OUTSIDE RECORDS SUMMARY | 2025-02-24 11:30 | XMS_ITS | Encounter Summary ---
Author Organization [employer] Address [address] [facility] 7t [place] [address] Care Team Providers Care Electrotyper Name Role Phone Lo Donato MD Primary Care Provider [phone] Reason for Visit * Reason Onset Date Comments Hospital Follow-up 01/17/2025 Encounter Details Date Type Department Care Team (Late st Contact Info) Description 01/17/2025 Telephone [facility] 230 [place], [place] [phone] Lo Donato MD 230 [place], [place] [phone] Hospital Follow-up Social History Tobacco Use Types [...] encounter Miscellaneous Notes * Telephone Encounter - Adriana Wright - 01/17/2025 8:35 AM EDT Tc from pt requesting a HDF appt. Hospital: [facility] Date of admission: 01/02 Discharge date: 01/04 Diagnosed: UTI , and C-dif *Send message to [place] [facility] Coordinators Contact pt at [facility] at [phone] documented in this encounter Plan of Treatment Upcoming Encounters Date Type Department Care Team (Late st Contact Info) Description 03/02/2025 1:45 PM EDT Office Visit [facility] [address] [place] [address] [phone] Jennifer Campa MD [address] [place] [phone] documented as of this encounter Visit Diagnoses Not on filedocumented in this encounter Additional Health Concerns Assessment Noted Time PHQ-9 Depression Total Score: 0 09/25/19 24 11:56 AM EDT documented as of this encounter Care Teams Electrotyper Relationship Specialty Start Date End Date Lo Donato MD [address] [place] [address] [phone] PCP - General Family Medicine 04/25/22 [facility] 03/17/24 documented as of this encounter
--- OUTSIDE RECORDS SUMMARY | 2025-02-24 11:30 | XMS_ITS | Encounter Summary ---
Author Organization [facility] Address 75 [facility] 7t [place] [address] Care Team Providers Care Grades 9 12 Tutor Name Role Phone Lo Donato MD Primary Care Provider [phone] Reason for Visit * Reason Comments Med Change Request Encounter Details Date Type Department Care Team (Late Contact Info) Description 12/29/2022 Refill [facility] [address] [place] [address] Lo Dnoato MD [address] [place] [address] Social History Tobacco Use Types Packs/Day Years [...] Office Visit [facility] [address] [place] [address] Jennifer Campa MD [address] [place] [address] documented as of this encounter Visit Diagnoses Not on filedocumented in this encounter Care Teams Grades 9 12 Tutor Relationship Specialty Start Date End Date Lo Donato MD [address] [place] [address] PCP - General Family Medicine 04/25/22 [facility] 03/17/24 documented as of this encounter
--- OUTSIDE RECORDS SUMMARY | 2025-02-24 11:30 | XMS_ITS | Encounter Summary ---
Author Organization [facility] Address [address] [place] [address] Care Team Providers Care Manager Of Financial Planning Name Role Phone Lo Donato MD Primary Care Provider [phone] Encounter Details Date Type Department Care Team (Late st Contact Info) Description 06/06/2024 Lab Requisition [facility] - Main Lab [address] [facility] [place] [address] Anatoliy Solano MD [address] [place] [address] Unspecified dementia, unspecified severity, without behavioral disturbance, [...] Basic metabolic panel (06/07/2024 7:25 AM EST) Sodium 139 133 - 145 mmol/L LAB CHEMISTRY METHOD 06/07/2024 9:[address] [facility] Potassium 4.3 3.5 - 5.5 mmol/L LAB CHEMISTRY METHOD 06/07/2024 9:[address] [facility] Chloride 109 96 - 110 mmol/L LAB CHEMISTRY METHOD 06/07/2024 9:[address] [facility] CO2 24 21 - 32 mmol/L LAB CHEMISTRY METHOD 06/07/2024 9:[address] [facility] Anion Gap 6 3 - 11 LAB CHEMISTRY METHOD 06/07/2024 9:[address] [facility] Glucose 137(H) 70 - 100 mg/dL LAB CHEMISTRY METHOD 06/07/2024 9:[address] [facility] BUN 41(H) 5 - 25 mg/dL LAB CHEMISTRY METHOD 06/07/2024 9:[address] [facility] Creatinine 1.73(H) 0.50 - 1.10 mg/dL LAB CHEMISTRY METHOD 06/07/2024 9:[address] [facility] eGFR 31(L) >=60 mL/min/1. 73m2 LAB CHEMISTRY METHOD 06/07/2024 9:[address] [facility] Comment:Calculation based on the Chronic Kidney Disease Epidemiology Collaboration (CKD-EPI) equation refit without adjustment for race. BUN/Creatinine Ratio 23.7 LAB CHEMISTRY METHOD 06/07/2024 9:[address] [facility] Calcium 9.2 8.5 - 10.5 mg/dL LAB CHEMISTRY METHOD 06/07/2024 9:[address] [facility] Blood Venous blood specimen / Unknown Venipuncture / Unknown 06/07/2024 7:25 AM EST 06/07/2024 9:24 AM EST us Anatoliy Solano MD LAB BLOOD ORDERABLES Final Result [facility] [address] [place] [address], [place] [phone] * (ABNORMAL) Complete blood count (06/07/2024 7:25 AM EST) WBC 6.9 4.8 - 10.8 K/mcL LAB HEMETOLOGY METHOD 06/07/2024 9:35 AM EST [facility] RBC 3.40(L) 3.80 - 4.80 M/mcL LAB HEMETOLOGY METHOD 06/07/2024 9:[address] [facility] Hemoglobin 9.6(L) 11.5 - 16.0 g/dL LAB HEMETOLOGY METHOD 06/07/2024 9:[address] [facility] Hematocrit 30.5(L) 35.0 - 47.0 % LAB HEMETOLOGY METHOD 06/07/2024 9:35 AM EST [facility] MCV 90.8 79.0 - 98.0 FL LAB HEMETOLOGY METHOD 06/07/2024 9:[address] [facility] MCH 28.6 27.0 - 32.0 pcg LAB HEMETOLOGY METHOD 06/07/2024 9:[address] [facility] MCHC 31.5(L) 32.0 - 37.0 g/dL LAB HEMETOLOGY METHOD 06/07/2024 9:35 AM EST [facility] RDW 14.7 11.0 - 15.0 % LAB HEMETOLOGY METHOD 06/07/2024 9:[address] [facility] Platelets 166 130 - 400 K/mcL LAB HEMETOLOGY METHOD 06/07/2024 9:[address] [facility] MPV 11.9(H) 7.0 - 11.0 FL LAB HEMETOLOGY METHOD 06/07/2024 9:35 AM EST [facility] NRBC 0.0 <1.0 % LAB HEMETOLOGY METHOD 06/07/2024 9:35 AM EST [facility] NRBC Absolute 0.00 <0.10 K/mcL LAB HEMETOLOGY METHOD 06/07/2024 9:35 AM EST [facility] Blood Venous blood specimen / Unknown Venipuncture / Unknown 06/07/2024 7:25 AM EST 06/07/2024 9:24 AM EST us Anatoliy Solano MD LAB BLOOD ORDERABLES Final Result [facility] [address] [place] [address], documented in this encounter Visit Diagnoses Diagnosis [...] as of this encounter Care Teams Manager Of Financial Planning Relationship Specialty Start Date End Date Lo Donato MD [address] [place] [address] PCP - General Road Freight Conductor 01/24/25 documented as of this encounter
--- OUTSIDE RECORDS SUMMARY | 2025-02-24 11:30 | XMS_ITS | Encounter Summary ---
Author Organization [facility] Address 75 [facility] 7t [place] [address] Care Team Providers Care Retail Banking Manager Name Role Phone Lo Donato MD Primary Care Provider [phone] Encounter Details Date Type Department Care Team (Late Contact Info) Description 12/01/2022 Abstract [employer] Information Management 230 [place], [place] [phone] Lo Donato MD 230 [place] [address] Social History Tobacco Use Types Packs/Day Years [...] Upcoming Encounters Date Type Department Care Team ([facility] Contact Info) Description 03/02/2025 1:45 PM EDT Office Visit [facility] [address] [place] [address] [phone] Jennifer Campa MD 230 [place] [address] documented as of this encounter Visit Diagnoses Not on filedocumented in this encounter Care Teams Retail Banking Manager Relationship Specialty Start Date End Date Lo Donato MD 230 [place] [address] PCP - General Family Medicine 04/25/22 [facility] 03/17/24 documented as of this encounter
--- OUTSIDE RECORDS SUMMARY | 2025-02-24 11:30 | XMS_ITS | Encounter Summary ---
Author Organization [facility] Address [address] [place] [address] Care Team Providers Care Warehouse Person Name Role Phone Lo Donato MD Primary Care Provider [phone] Encounter Details Date Type Department Care Team (Late st Contact Info) Description 06/12/[address] [facility] - Main Lab [address] [facility] [place] [address] Anatoliy Solano MD [address] [place] [address] Unspecified dementia, unspecified severity, without behavioral disturbance, psychotic disturbance, mood disturbance, and anxiety (CMS/HCC V24, CMS/[facility] V28) Social History Tobacco Use Types Packs/Day [...] documented as of this encounter Care Teams Warehouse Person Relationship Specialty Start Date End Date Lo Donato MD [address] [place] [address] PCP - General Supervisor Painting 01/24/25 documented as of this encounter
--- OUTSIDE RECORDS SUMMARY | 2025-02-24 11:30 | XMS_ITS | Encounter Summary ---
Author Organization [employer] Address 75 [facility] 7t [place] [address] Care Team Providers Care Owner/Photographer Name Role Phone Lo Donato MD Primary Care Provider [phone] Reason for Visit * Reason Comments Med Change Request Encounter Details Date Type Department Care Team (Late st Contact Info) Description 01/11/2025 Refill [facility] 230 [place], [place] [phone] Lo Donato MD 230 [place], [place] [phone] Social History Tobacco Use Types Packs/Day Years [...] Description 03/02/2025 1:45 PM EDT Office Visit [facility] [address] [place] [address] [phone] Jennifer Campa MD 230 [place], [place] [phone] documented as of this encounter Visit Diagnoses Not on filedocumented in this encounter Additional Health Concerns Assessment Noted Time PHQ-9 Depression Total Score: 0 09/25/19 24 11:56 AM EDT documented as of this encounter Care Teams Owner/Photographer Relationship Specialty Start Date End Date Lo Donato MD [address] [place] [address] [phone] PCP - General Family Medicine 04/25/22 [facility] 03/17/24 documented as of this encounter
--- OUTSIDE RECORDS SUMMARY | 2025-02-24 11:30 | XMS_ITS | Encounter Summary ---
Author Organization [employer] Address 75 [facility] 7t [place] [address] Care Team Providers Care Retail Pos Specialist Name Role Phone Lo Donato MD Primary Care Provider [phone] Encounter Details Date Type Department Care Team (Late st Contact Info) Description 12/09/2024 Orders Only [facility] 230 [place] [address] Provider, MD Airam Social History Tobacco Use [...] Description 03/02/2025 1:45 PM EDT Office Visit [facility] [address] [place] [address] [phone] Jennifer Campa MD 230 [place], [place] [phone] documented as of this encounter Procedures Procedure Name Priority Date/Time Associated Diagnosis Comments CT ABDOMEN PELVIS W CONTRAST Routine 12/08/2024 9:49 AM EDT documented in this encounter Results * CT Abdomen Pelvis w/ Contrast (12/08/2024 9:49 AM EDT) Anatomical Region Laterality Modality Body, Pelvis, Abdomen Computed T omography us Historical Provider MD ACEVES CT PROCEDURES Final R esult documented in this encounter Visit Diagnoses Not on filedocumented in this encounter Additional Health Concerns Assessment Noted Time PHQ-9 Depression Total Score: 0 09/25/19 11:56 AM EDT documented as of this encounter Care Teams Retail Pos Specialist Relationship Specialty Start Date End Date Lo Donato MD [address] [place] [address] [phone] PCP - General Family Medicine 04/25/22 [facility] 03/17/24 documented as of this encounter
--- OUTSIDE RECORDS SUMMARY | 2025-02-24 11:30 | XMS_ITS | Encounter Summary ---
Author Organization [facility] Address [address] [place] [address] Care Team Providers Care Emissions Inspector Name Role Phone Lo Donato MD Primary Care Provider [phone] Encounter Details Date Type Department Care Team (Late st Contact Info) Description 05/18/2024 Lab Requisition [facility] - Main Lab 299 [facility] [place] [address] Anatoliy Solano MD [address] [place] [address] Unspecified dementia, unspecified severity, without behavioral disturbance, [...] mmol/L LAB CHEMISTRY METHOD 05/19/2024 10:34 AM [facility] Potassium 4.8 3.5 - 5.5 mmol/L LAB CHEMISTRY METHOD 05/19/2024 10:34 AM [facility] Chloride 108 96 - 110 mmol/L LAB CHEMISTRY METHOD 05/19/2024 10:34 AM [facility] CO2 25 21 - 32 mmol/L LAB CHEMISTRY METHOD 05/19/2024 10:34 AM [facility] Anion Gap 5 3 - 11 LAB CHEMISTRY METHOD 05/19/2024 10:34 AM [facility] Glucose 253(H) 70 - 100 mg/dL LAB CHEMISTRY METHOD 05/19/2024 10:34 AM [facility] BUN 41(H) 5 - 25 mg/dL LAB CHEMISTRY METHOD 05/19/2024 10:34 AM [facility] Creatinine 2.10(H) 0.50 - 1.10 mg/dL LAB CHEMISTRY METHOD 05/19/2024 10:34 AM [facility] eGFR 24(L) >=60 mL/min/1. 73m2 LAB CHEMISTRY METHOD 05/19/2024 10:34 AM [facility] Comment:Calculation based on the Chronic Kidney Disease Epidemiology Collaboration (CKD-EPI) equation refit without adjustment for race. BUN/Creatinine Ratio 19.5 LAB CHEMISTRY METHOD 05/19/2024 10:34 AM [facility] Calcium 9.3 8.5 - 10.5 mg/dL LAB CHEMISTRY METHOD 05/19/2024 10:34 AM [facility] Blood Venous blood specimen / Unknown Venipuncture / Unknown 05/19/2024 8:12 AM EST 05/19/2024 8:51 AM EST us Anatoliy Solano MD LAB BLOOD ORDERABLES Final Result [facility] [address] [place] [address], [place] [phone] * (ABNORMAL) Complete blood count (05/19/2024 8:12 AM EST) WBC 7.4 4.8 - 10.8 K/mcL LAB HEMETOLOGY METHOD 05/19/2024 10:26 AM EST [facility] RBC 3.80 3.80 - 4.80 M/mcL LAB HEMETOLOGY METHOD 05/19/2024 10:26 AM [facility] Hemoglobin 10.6(L) 11.5 - 16.0 g/dL LAB HEMETOLOGY METHOD 05/19/2024 10:26 AM [facility] Hematocrit 34.8(L) 35.0 - 47.0 % LAB HEMETOLOGY METHOD 05/19/2024 10:26 AM [facility] MCV 91.8 79.0 - 98.0 FL LAB HEMETOLOGY METHOD 05/19/2024 10:26 AM [facility] MCH 28.0 27.0 - 32.0 pcg LAB HEMETOLOGY METHOD 05/19/2024 10:26 AM [facility] MCHC 30.5(L) 32.0 - 37.0 g/dL LAB HEMETOLOGY METHOD 05/19/2024 10:26 AM [facility] RDW 15.0 11.0 - 15.0 % LAB HEMETOLOGY METHOD 05/19/2024 10:26 AM [facility] Platelets 281 130 - 400 K/mcL LAB HEMETOLOGY METHOD 05/19/2024 10:26 AM [facility] MPV 11.1(H) 7.0 - 11.0 FL LAB HEMETOLOGY METHOD 05/19/2024 10:26 AM EST [facility] NRBC 0.0 <1.0 % LAB HEMETOLOGY METHOD 05/19/2024 10:26 AM EST [facility] NRBC Absolute 0.00 <0.10 K/mcL LAB HEMETOLOGY METHOD 05/19/2024 10:26 AM EST [facility] Blood Venous blood specimen / Unknown Venipuncture / Unknown 05/19/2024 8:12 AM EST 05/19/2024 8:51 AM EST us Anatoliy Solano MD LAB BLOOD ORDERABLES Final Result [facility] [address] [place] [address], documented in this encounter Visit Diagnoses Diagnosis [...] documented as of this encounter Care Teams Emissions Inspector Relationship Specialty Start Date End Date Lo Donato MD [address] [place] [address] PCP - General Carton Forming Machine Helper 01/24/25 documented as of this encounter
--- OUTSIDE RECORDS SUMMARY | 2025-02-24 11:30 | XMS_ITS | Encounter Summary ---
Author Organization [facility] Address [address] [place] [address] Care Team Providers Care Senior Systems Programmer Name Role Phone Lo Donato MD Primary Care Provider [phone] Encounter Details Date Type Department Care Team (Late st Contact Info) Description 05/27/2024 Lab Requisition [facility] - Main Lab 299 [facility] [place] [address] Anatoliy Solano MD [address] [place] [address] Altered mental status, unspecified; Unspecified dementia, unspecified [...] Final Result [facility] [address] [place] [address], [place] [phone] * (ABNORMAL) Complete blood count (05/27/2024 10:53 AM EST) WBC 9.3 4.8 - 10.8 K/mcL LAB HEMETOLOGY METHOD 05/27/2024 11:37 AM EST [facility] RBC 4.00 3.80 - 4.80 [...] FL LAB HEMETOLOGY METHOD 05/27/2024 11:37 AM EST [facility] NRBC 0.0 <1.0 % LAB HEMETOLOGY METHOD 05/27/2024 11:37 AM EST [facility] NRBC Absolute 0.00 <0.10 K/mcL LAB HEMETOLOGY METHOD 05/27/2024 11:37 AM EST [facility] Blood Venous blood specimen / Unknown Venipuncture / Unknown 05/27/2024 10:53 AM EST 05/27/2024 11:19 AM EST us Anatoliy Solano MD LAB BLOOD ORDERABLES Final Result [facility] [address] [place] [address], documented in this encounter Visit Diagnoses Diagnosis [...] documented as of this encounter Care Teams Senior Systems Programmer Relationship Specialty Start Date End Date Lo Donato MD [address] [place] [address] PCP - General Gis Application Developer 01/24/25 documented as of this encounter
--- OUTSIDE RECORDS SUMMARY | 2025-02-24 11:30 | XMS_ITS | Encounter Summary ---
Author Organization [employer] [facility] Address [address] [facility] 7t [place] [address] Care Team Providers Care Wildlife Forensic Geneticist Name Role Phone Lo Donato MD Primary Care Provider [phone] Encounter Details Date Type Department Care Team (Late Contact Info) Description 01/30/2023 Telephone [facility] [address] [place] [phone] Andie Bella LPN Social History Tobacco Use [...] EDT Office Visit [facility] [address] [place] [address] Jennifer Campa MD [address] [place] [address] documented as of this encounter Visit Diagnoses Not on filedocumented in this encounter Additional Health Concerns Assessment Noted Time PHQ-9 Depression Total Score: 11 023 10:00 AM EDT documented as of this encounter Care Teams Wildlife Forensic Geneticist Relationship Specialty Start Date End Date Lo Donato MD [address] [place] [address] [phone] PCP - General Family Medicine 04/25/22 [facility] 03/17/24 documented as of this encounter
--- OUTSIDE RECORDS SUMMARY | 2025-02-24 11:30 | XMS_ITS | Encounter Summary ---
Author Organization [facility] Address [address] [place] [address] Care Team Providers Care Application Support Manager Name Role Phone Lo Donato MD Primary Care Provider [phone] Encounter Details Date Type Department Care Team (Late st Contact Info) Description 05/25/[address] [facility] - Main Lab 299 [facility] [place] [address] Anatoliy Solano MD [address] [place] [address] Unspecified dementia, unspecified severity, without behavioral disturbance, psychotic disturbance, mood disturbance, and anxiety (CMS/HCC V24, CMS/[facility] V28) Social History Tobacco Use Types [...] documented as of this encounter Care Teams Application Support Manager Relationship Specialty Start Date End Date Lo Donato MD [address] [place] [phone] PCP - General Aoc Operations Intelligence Chief 01/24/25 documented as of this encounter
--- OUTSIDE RECORDS SUMMARY | 2025-02-24 11:30 | XMS_ITS | Encounter Summary ---
Author Organization [employer] Address [address] [facility] [address] [place] [address] Care Team Providers Care Crisis Nurse Name Role Phone Lo Donato MD Primary Care Provider [phone] Reason for Visit * Reason Comments Med Refill Encounter Details Date Type Department Care Team (Late st Contact Info) Description 09/30/2024 Refill [facility] [address] [place], [place] [phone] [facility] [address] [place] [address] Type 2 diabetes mellitus with hyperglycemia, with long-term current use of insulin ([facility]) Social History Tobacco Use Types Packs/Day Years [...] Description 03/02/2025 1:45 PM EDT Office Visit [facility] [address] [place] [phone] Jennifer Campa MD [address] [place] [address] documented as of this encounter Visit Diagnoses Diagnosis Type 2 diabetes mellitus with hyperglycemia, with long-term current use of insulin (HCC) documented in this encounter Additional Health Concerns Assessment Noted Time PHQ-9 Depression Total Score: 0 09/25/19 11:56 AM EDT documented as of this encounter Care Teams Crisis Nurse Relationship Specialty Start Date End Date Lo Donato MD [address] [place] [phone] PCP - General Family Medicine 04/25/22 [facility] 03/17/24 documented as of this encounter
--- OUTSIDE RECORDS SUMMARY | 2025-02-24 11:30 | XMS_ITS | Encounter Summary ---
Author Organization [facility] Address [address] [place] [address] Care Team Providers Care Wrestling Coach Name Role Phone Lo Donato MD Primary Care Provider [phone] Encounter Details Date Type Department Care Team (Late st Contact Info) Description 05/31/2024 Lab Requisition [facility] - Main Lab [address] [facility] [place] [address] Anatoliy Solano MD [address] [place] [address] Unspecified dementia, unspecified severity, without behavioral disturbance, [...] mmol/L LAB CHEMISTRY METHOD 05/31/2024 8:34 AM [facility] Potassium 4.8 3.5 - 5.5 mmol/L LAB CHEMISTRY METHOD 05/31/2024 8:34 AM [facility] Chloride 104 96 - 110 mmol/L LAB CHEMISTRY METHOD 05/31/2024 8:34 AM [facility] CO2 27 21 - 32 mmol/L LAB CHEMISTRY METHOD 05/31/2024 8:34 AM [facility] Anion Gap 6 3 - 11 LAB CHEMISTRY METHOD 05/31/2024 8:34 AM [facility] Glucose 133(H) 70 - 100 mg/dL LAB CHEMISTRY METHOD 05/31/2024 8:34 AM [facility] BUN 44(H) 5 - 25 mg/dL LAB CHEMISTRY METHOD 05/31/2024 8:34 AM [facility] Creatinine 2.21(H) 0.50 - 1.10 mg/dL LAB CHEMISTRY METHOD 05/31/2024 8:34 AM [facility] eGFR 23(L) >=60 mL/min/1. 73m2 LAB CHEMISTRY METHOD 05/31/2024 8:34 AM [facility] Comment:Calculation based on the Chronic Kidney Disease Epidemiology Collaboration (CKD-EPI) equation refit without adjustment for race. BUN/Creatinine Ratio 19.9 LAB CHEMISTRY METHOD 05/31/2024 8:34 AM [facility] Calcium 9.5 8.5 - 10.5 mg/dL LAB CHEMISTRY METHOD 05/31/2024 8:34 AM [facility] Blood Venous blood specimen / Unknown Venipuncture / Unknown 05/31/2024 5:00 AM EST 05/31/2024 7:46 AM EST us Anatoliy Solano MD LAB BLOOD ORDERABLES Final Result [facility] [address] [place] [address], [place] [phone] * (ABNORMAL) Complete blood count (05/31/2024 5:00 AM EST) WBC 7.6 4.8 - 10.8 K/mcL LAB HEMETOLOGY METHOD 05/31/2024 8:30 AM EST [facility] RBC 3.60(L) 3.80 - 4.80 M/mcL LAB HEMETOLOGY METHOD 05/31/2024 8:30 AM [facility] Hemoglobin 10.2(L) 11.5 - 16.0 g/dL LAB HEMETOLOGY METHOD 05/31/2024 8:30 AM [facility] Hematocrit 32.8(L) 35.0 - 47.0 % LAB HEMETOLOGY METHOD 05/31/2024 8:30 AM EST [facility] MCV 91.4 79.0 - 98.0 FL LAB HEMETOLOGY METHOD 05/31/2024 8:30 AM [facility] MCH 28.4 27.0 - 32.0 pcg LAB HEMETOLOGY METHOD 05/31/2024 8:30 AM [facility] MCHC 31.1(L) 32.0 - 37.0 g/dL LAB HEMETOLOGY METHOD 05/31/2024 8:30 AM EST [facility] RDW 14.6 11.0 - 15.0 % LAB HEMETOLOGY METHOD 05/31/2024 8:30 AM [facility] Platelets 205 130 - 400 K/mcL LAB HEMETOLOGY METHOD 05/31/2024 8:30 AM [facility] MPV 11.8(H) 7.0 - 11.0 FL LAB HEMETOLOGY METHOD 05/31/2024 8:30 AM EST [facility] NRBC 0.0 <1.0 % LAB HEMETOLOGY METHOD 05/31/2024 8:30 AM EST [facility] NRBC Absolute 0.00 <0.10 K/mcL LAB HEMETOLOGY METHOD 05/31/2024 8:30 AM EST [facility] Blood Venous blood specimen / Unknown Venipuncture / Unknown 05/31/2024 5:00 AM EST 05/31/2024 7:46 AM EST us Anatoliy Solano MD LAB BLOOD ORDERABLES Final Result [facility] [address] [place] [address], documented in this encounter Visit Diagnoses Diagnosis [...] documented as of this encounter Care Teams Wrestling Coach Relationship Specialty Start Date End Date Lo Donato MD [address] [place] [phone] PCP - General Moving Consultant 01/24/25 documented as of this encounter
== END 2025-02-24 11:02 | disposition home or self-care (01) ==
LOC: HO.HUSH 10:09
PROVIDERS: PCP General Practice; Visit Provider Urology
DX: E66.9 Obesity, unspecified (principal); R32 Unspecified urinary incontinence; N39.0 Urinary tract infection, site not specified
CPT/HCPCS: 99213

== ENCOUNTER → 2025-02-24 10:08 | Outpatient (BNVA) | payer OTHER, SELFPAY | PROVIDERS: PCP General Practice; Visit Provider Urology | DX: N39.0 Urinary tract infection, site not specified (principal); N39.46 Mixed incontinence; E66.9 Obesity, unspecified | CPT/HCPCS: 99212 ==